=== PATIENT | female | born 1965 | race Caucasian/White ===

== ENCOUNTER 2017-10-31 18:29 | Emergency (ER) | payer MEDICARE, MEDICAID, SELFPAY ==
[2017-10-31 18:30] VITALS: BP 122/72; PULSE 82; RESP 16; TEMP 36.1; O2SAT 94; BMI 38.9
--- NOTE | 2017-10-31 18:58 | RAD_ITS ---
STUDY: X-RAY - LEFT HAND REASON FOR EXAM: Female, 52 years old. Pain, fall TECHNIQUE: 3 view(s) of the hand. COMPARISON: None. FINDINGS: Normal radiocarpal articulation. Normal distal radioulnar joint. Normal visualized carpal bones. Normal carpal articulations Normal carpometacarpal articulation of the thumb. Normal second through fifth carpometacarpal joints. Normal metacarpi. Normal metacarpophalangeal joint of the thumb. Normal interphalangeal joint of the thumb. Normal proximal and distal phalanges of the thumb. Normal metacarpophalangeal joints of the second through fifth fingers. Normal proximal and distal interphalangeal joints of the second through fifth fingers. Normal phalanges of the second through fifth fingers. The soft tissue structures are unremarkable. RAD/Hand Min 3 Views IMPRESSION: Normal x-ray examination of the hand. Electronically Signed: Kirit Valdes DO at 20:24 EDT Tel [phone], Service support ,
--- NOTE | 2017-10-31 18:58 | RAD_ITS ---
STUDY: X-RAY - LEFT SHOULDER REASON FOR EXAM: Female, 52 years old. Pain TECHNIQUE: 4 view(s) of the shoulder. COMPARISON: None. FINDINGS: Normal glenohumeral articulation. Normal acromioclavicular joint. Normal acromion. Normal humeral head and visualized proximal humerus. Lateral soft tissue calcification possibly related to calcific tendinopathy. Normal visualized pulmonary apex. RAD/Shoulder min 2 Views IMPRESSION: No acute bone injury of the shoulder. Possible calcific tendinopathy of the shoulder. Electronically Signed: Kirit Valdes DO at 20:28 EDT Tel [phone], Service support ,
--- NOTE | 2017-10-31 18:58 | RAD_ITS ---
STUDY: X-RAY - LEFT WRIST REASON FOR EXAM: Female, 52 years old. Pain, fall TECHNIQUE: 3 view(s) of the wrist were obtained. COMPARISON: None. FINDINGS: Normal visualized distal radius and ulna. Normal radiocarpal articulation. Normal distal radioulnar articulation. Normal carpal bones. Normal carpal articulations. Normal carpometacarpal articulation of the thumb. Normal second through fifth carpometacarpal articulations. Normal visualized metacarpal bones. The soft tissue structures are unremarkable. RAD/Wrist min 3 Views IMPRESSION: Normal x-ray examination of the wrist. Electronically Signed: Kirit Valdes DO at 20:21 EDT Tel [phone], Service support ,
[2017-10-31] MEDS: HYDROcodone Bitartrate/Apap 5/325 Tablet PO (19:12)
[2017-10-31 20:18] VITALS: BP 112/66; PULSE 71; RESP 14; O2SAT 95
--- NOTE | 2017-10-31 20:45 | ED.VISSUMM ---
- ER Visit Summary Date of Service: 10/31/17 Chief Complaint: Left upper extremity injury History of Present Illness: The patient is a 52 F who lost her balance and fell, landing on her left arm. Patient is already in physical therapy for left shoulder pain and calcific tendinitis. Patient has pain to the left hand, wrist, and left shoulder. She denies paresthesias. She denies any other injury from the fall. Physical Examination: Vital signs unremarkable. Head neck examination was no sign of trauma. Heart is regular rate and rhythm. Lung sounds are clear. Abdomen is soft nontender. Left upper extremity examination was tenderness over the upper scapula. She is decreased range of motion of the left shoulder secondary to pain. No evidence of dislocation. She also has tenderness and edema of the left hand and wrist. Strong pulses are noted throughout. Test Results: Left hand and wrist x-rays are obtained and unremarkable. Left shoulder x-rays reveal no acute injury. There is possible calcific tendinopathy of the shoulder. Emergency Department Course and Treatment: Patient was given 2 tabs of [place] for pain. On repeat evaluation she is resting comfortably. Test results were discussed with her. Jenaro wrap will be applied to the left hand and wrist. She will follow-up with her land conservation specialist at [facility]. She will be given 10 tabs of [place] for home. Treatment Plan: [] Disposition: Discharge Impression: 1. Mechanical fall 2. Left hand/wrist contusion 3. Calcific tendinitis left shoulder This note was generated with SnapUp dictation software. It may contain incorrect words, spelling, and punctuation that were not noted in review of the chart prior to signing ED Disposition - Plan for ED Patient: Chief Complaint: Upper Extremity Injury Referrals: Santhosh Garcia MD [Primary Care Provider] -
--- NOTE | 2017-10-31 20:49 | ED.DEP ---
ED Disposition - Plan for ED Patient: Disposition: Home or Assisted Living Chief Complaint: Upper Extremity Injury Instructions: ED Tendinitis Rotator Cuff, ED Contusion Hand Prescriptions: Hydrocodone Bitart/Apap 5-325 [[place] 5MG-325MG] 1 tablet PO Q6H PRN PRN 3 Days #10 tablet PRN Reason: Pain Referrals: Santhosh Garcia MD [Primary Care Provider] - Additional Instructions: Follow-up with your orthopedist as discussed.
[2017-10-31 20:57] VITALS: PULSE 68; RESP 17; O2SAT 96
== END 2017-10-31 20:57 | disposition home or self-care (01) ==
PROVIDERS: Emergency Provider Emergency Medicine; Family Provider Family Medicine; PCP Family Medicine
DX: S60.212A Contusion of left wrist, initial encounter (principal); M75.32 Calcific tendinitis of left shoulder; W19.XXXA Unspecified fall, initial encounter; Y93.9 Activity, unspecified; Y92.9 Unspecified place or not applicable; K21.9 Gastro-esophageal reflux disease without esophagitis; E78.00 Pure hypercholesterolemia, unspecified; G47.33 Obstructive sleep apnea (adult) (pediatric); E11.40 Type 2 diabetes mellitus with diabetic neuropathy, unspecified; Z79.82 Long term (current) use of aspirin; Z79.899 Other long term (current) drug therapy; Z87.891 Personal history of nicotine dependence
CPT/HCPCS: 73030; 73110; 73130; 99283

== ENCOUNTER 2022-10-29 15:26 | Emergency (ER) | payer MEDICARE, MEDICAID, SELFPAY ==
[2022-10-29 15:27] VITALS: BP 158/98; PULSE 98; RESP 14; TEMP 36.6; O2SAT 95; BMI 40.3
--- NOTE | 2022-10-29 15:49 | RAD_ITS ---
INDICATION: Trauma, fall, right-sided pain EXAMINATION/TECHNIQUE: X-RAY - RIGHT XR Wrist Min 3 Views 3 VIEWS COMPARISON: None. FINDINGS: SOFT TISSUES: No soft tissue swelling or gas. No radiopaque foreign body. BONES/JOINTS: No acute fracture. Joint spaces anatomically aligned. No sclerotic or destructive changes observed. RAD/Wrist min 3 Views IMPRESSION: No acute bony injury. Electronically Signed: John Dobson MD at 17:14 EDT ,
--- NOTE | 2022-10-29 15:49 | RAD_ITS ---
INDICATION: Trauma, fall, right-sided pain EXAMINATION/TECHNIQUE: X-RAY - RIGHT XR Foot Min 3 Views 3 VIEWS COMPARISON: None. FINDINGS: SOFT TISSUES: No soft tissue swelling or gas. No radiopaque foreign body. BONES/JOINTS: Mildly displaced, comminuted intra-articular fracture at the base of the second proximal phalanx. Overall alignment near anatomic. Joint spaces anatomically aligned. No sclerotic or destructive changes observed. RAD/Foot min 3 Views IMPRESSION: Comminuted intra-articular fracture of the second proximal phalanx. Electronically Signed: John Dobson MD at 17:04 EDT ,
--- NOTE | 2022-10-29 15:49 | RAD_ITS ---
INDICATION: Trauma, fall, right-sided pain EXAMINATION/TECHNIQUE: X-RAY - RIGHT XR Elbow Min 3 Views 3 VIEWS COMPARISON: None. FINDINGS: SOFT TISSUES: No soft tissue swelling or gas. No radiopaque foreign body. BONES/JOINTS: No acute fracture. Joint spaces anatomically aligned. Degenerative changes at the lateral humeral epicondyle. No sclerotic or destructive changes observed. RAD/Elbow min 3 Views IMPRESSION: No acute bony injury. Electronically Signed: John Dobson MD at 17:06 EDT ,
--- NOTE | 2022-10-29 16:02 | RAD_ITS ---
INDICATION: Trauma, fall, right-sided pain EXAMINATION/TECHNIQUE: X-RAY - RIGHT XR Femur Min 2 Views 2 VIEWS COMPARISON: None. FINDINGS: SOFT TISSUES: No soft tissue swelling or gas. No radiopaque foreign body. BONES/JOINTS: No acute fracture. Joint spaces anatomically aligned. No sclerotic or destructive changes observed. RAD/Femur Min 2 Views IMPRESSION: No acute bony injury. Electronically Signed: John Dobson MD at 17:10 EDT ,
--- NOTE | 2022-10-29 16:59 | ED.VIS.FALL ---
HPI HPI - Fall History of Present Illness Chief Complaint: Fall Detail of Chief Complaint: 57-year-old diabetic female with a fractured second toe lost her balance an Informant: patient and family Occured/Mechanism Occurred: Today and Hours Mechanism/Context: Yes same level fall Usually ambulates: Without assistance Pain/Injury Pain Location: upper extremity and lower extremity Quality of Pain: Dull and Aching Current Severity: Mild Maximum Severity: Mild Narrative Narrative: 57-year-old diabetic female also with hypertension. Recently fractured her right second toe. Today around 2:30 AM she was going to to get her grandchild something to drink stumbled and fell. She also had a second fall around 1 PM. Complaining of discomfort to her right foot, right distal femur, right elbow and right wrist. She had no LOC. No significant head injury. She is not on any blood thinners. Prior similar symptoms: Yes Recent Illness/Hospitalization: No PFSH PFSH Medical History Powers's esophagus Diabetes DJD (degenerative joint disease) Dyslipidemia GERD (gastroesophageal reflux disease) Heart disease HTN (hypertension) Morbid obesity Home Medications bupropion HCl 200 mg tablet,12 hr sustained-release (Wellbutrin SR) 200 mg PO BID depression/anxiety 08/23/15 [History Last Taken 10/31/17] clonazepam 2 mg tablet (Klonopin) 1 mg PO TID anxiety 08/23/15 [History Last Taken 10/31/17] fluticasone propionate 50 mcg/actuation nasal spray,suspension 2 spray DAILY allergies 08/23/15 [History Last Taken 10/31/17] gabapentin 600 mg tablet 900 mg PO TIDCM nerve pain 08/23/15 [History Last Taken 10/31/17] lamotrigine 150 mg tablet 400 mg PO QHS bipolar 08/23/15 [History Last Taken 10/31/17] pantoprazole 40 mg tablet,delayed release 40 mg PO DAILY acid reflux 08/23/15 [History Last Taken 10/31/17] thyroid (pork) 60 mg tablet ([place] Thyroid) 60 mg PO BID thyroid 08/23/15 [History Last Taken 10/31/17] vortioxetine 10 mg tablet (Trintellix) 20 mg PO QHS antidepressant 08/23/15 [History Last Taken 10/31/17] atorvastatin 20 mg tablet (Lipitor) 40 mg PO QHS cholesterol 12/31/16 [History Last Taken 10/31/17] ergocalciferol (vitamin D2) 1,250 mcg (50,000 unit) capsule (Vitamin D2) 50,000 unit PO ALLEN SUPPLEMENT 12/31/16 [History Last Taken 10/31/17] aspirin 81 mg tablet,delayed release 81 mg PO DAILY@0800 01/01/17 [Rx Last Taken 10/31/17] nitroglycerin 0.4 mg sublingual tablet 0.4 mg sublingual Q5M PRN Chest Pain #30 tabs 01/01/17 [Rx Last Taken 10/31/17] propranolol 10 mg tablet 10 mg PO DAILY tremors ##30 01/01/17 [Rx Last Taken 10/31/17] desonide 0.05 % topical cream 10/31/17 [History Last Taken Unknown] hydrocodone-acetaminophen 5-325mg 5mg-325mg 1 tab PO Q6H PRN PRN Pain 3 days ##10 10/31/17 [Rx Last Taken Unknown] lisinopril 5 mg tablet 5 mg PO DAILY 10/31/17 [History Last Taken Unknown] lurasidone 20 mg tablet (Latuda) 20 mg PO DAILY 10/31/17 [History Last Taken Unknown] prednisone 10 mg tablet 10 mg PO DAILY 10/31/17 [History Last Taken Unknown] tizanidine 4 mg capsule (Zanaflex) 4 mg PO PRN PRN Muscle Spasm 10/31/17 [History Last Taken Unknown] zaleplon 10 mg capsule 10 mg PO PRN PRN Sleep 10/31/17 [History Last Taken Unknown] Allergy/AdvReac Type Severity Reaction Status Date / Time animal dander Allergy difficulty Verified 10/29/22 15:30 breathing citric acid AdvReac mouth sores Verified 10/29/22 15:30 mold AdvReac Nausea Verified 10/29/22 15:30 zolpidem [From Ambien] AdvReac SLEEP Verified 10/29/22 15:30 WALKING Social History Smoking Status: Never smoker ROS ROS ED ROS Narrative Recent illness. Review of Systems ROS Unobtainable: Denies due to encephalopathy Constitutional Constitutional ED: Denies chills or fever(s) Eyes Eyes: Denies blurry vision ENT ENT ED: Denies ear pain Cardiovascular Cardiovascular: Denies chest pain Respiratory/Chest Respiratory/Chest: Denies cough Gastrointestinal Gastrointestinal: Denies abdominal pain Genitourinary Genitourinary ED: Denies dysuria Musculoskeletal Musculoskeletal: Denies arthralgias Integumentary Denies abscess Neurologic Neurologic: Denies headache(s) Psychiatric Psychiatric: Denies anxiety Endocrine Endocrinology: Denies polydipsia or polyphagia Allergic/Immunologic Allergic/Immunologic ED: Denies mouth swelling EXAM Physical Exam Narrative Exam Narrative: All 57 female. Vital signs stable afebrile. No acute distress. Family at bedside. H EENT exam unremarkable atraumatic. Pupils round react light. Scalp and face nontender. C-spine trachea nontender. Lungs clear to auscultation bilaterally. Chest wall nontender. Collarbone is nontender. Heart regular rhythm rate about 90 no murmur. Ribs nontender. Abdomen soft nontender. Pelvic girdle intact. Moving all 4 extremities. Mild tenderness to the right elbow and right wrist. Minimal swelling. No gross bony deformity. Equal symmetrical germ drier strength. Shoulders are nontender. Left upper extremity unremarkable. Back and spine nontender. She has normal flexion extension of both hips, knees, ankle and feet. Right foot is in a walking shoe. She has tenderness along the base of the toe phalanges and distal metatarsals. No deformity. Notes no swelling. Has recently had a second toe fracture. Neurologically she is awake alert with no focal motor deficits. Const Vital Signs: 10/29/22 15:27 10/29/22 15:40 Temperature 97.8 F Temperature Source Temporal Pulse Rate 98 Respiratory Rate 14 Respiratory Effort Normal Non-Labored Respiratory Depth Normal Respiratory Pattern Normal Blood Pressure 158/98 H Blood Pressure Mean 118 Pulse Ox 95 Oxygen Delivery Method Room Air Room Air Positive well nourished and well developed; Negative for cachectic, contractures or unkempt General Appearance ED: well developed and NAD; Negative for unkempt, cachectic or contractures Nutritional Appearance: Negative for cachectic HEENT Reports normocephalic atraumatic; Negative for trauma, contusion, hematoma or tenderness Eyes PERRL and EOMs intact bilaterally General Eye ED: Negative for pale conjunctiva or scleral icterus Neck full ROM and no lymphadenopathy General: Negative for tenderness Chest Wall inspection of chest normal and palpation of chest normal Chest: Negative for other Resp normal respiratory effort, no retractions and clear to auscultation bilaterally Effort and Inspection: Negative for pain with movement Auscultation: Negative for rales, rhonchi or wheezes Cardio regular rate, regular rhythm, S1 normal heart sound, S2 normal heart sound and no murmurs GI non-tender, non-distended and no masses Inspection: Negative for abdominal distention Auscultation: normoactive bowel sounds Palpation: soft; Negative for guarding Back/Spine no CVA tenderness General Back: Negative for CVA tenderness Cervical Spine: Negative for cervical spine tenderness Thoracic Spine / Upper Back: Negative for ROM limited Lumbar Spine / Lower Back: Negative for lumbar spinal tenderness Neuro oriented x3, CN's II-XII intact bilaterally, moves all extremities and no focal motor deficits Mahesh Coma Scale: document GCS findings Spontaneous Obeys Commands Oriented 15 Sensorium / Orientation: alert, oriented to person, oriented to place and oriented to time; Negative for orientation impaired, confused, lethargic or stuporous Motor Exam: strength 5/5 throughout Psych mental status grossly normal and thought process normal Appearance: Negative for unkempt Attitude: No agitated Mood & Affect: Negative for depressed, anxious or tearful Skin General Skin Exam: Negative for other Lesions: no lesions Rashes: no rashes Trauma: Negative for abrasion or laceration MDM MDM MDM Narrative Medical decision making narrative: 57-year-old female with a known broken second toe fell twice today. X-rays will be obtained of her right elbow and right wrist. Right femur and right foot. X-rays reviewed. No acute abnormality. She does have a known right second toe fracture. The other films are unremarkable. She will be ambulated in department if she does well she will be discharged home. History & Record Review Discussion w/independent historian: Patient and Family Radiography Chest X-Ray - ED: Read by ED Physician Diagnostic Testing: Right elbow x-ray 3 views interpreted myself shows no acute abnormality. No fracture or dislocation. Right wrist x-ray 3 views interpreted by myself right itself shows no acute abnormality. No fracture or dislocation. Right foot x-ray 3 views interpreted by myself shows a old proximal phalanx second toe fracture. Denies headache not displaced. Right femur x-ray 4 views shows no acute abnormality. No fracture or dislocation. Interpreted by myself. Discharge Plan Triage Chief Complaint: Fall ED Provider: Corey Arrington Dx/Rx/DC Orders Clinical Impression: History of fracture of toe, History of hypertension, History of diabetes mellitus, Fall, Contusion of elbow, right, Contusion of right thigh, Right wrist sprain Instructions: ED Contusion, Lower Extremity, ED Contusion, Upper Extremity Prescriptions: No Action lamotrigine 150 MG tablet 400 mg PO QHS gabapentin 600 MG tablet 900 mg PO TIDCM pantoprazole 40 MG tablet 40 mg PO DAILY clonazepam [Klonopin] 2 MG tablet 1 mg PO TID fluticasone propionate 1 SPRAY spray,suspension 2 spray NASAL DAILY bupropion HCl [Wellbutrin SR] 200 MG tablet 200 mg PO BID thyroid (pork) [[place] Thyroid] 60 MG tablet 60 mg PO BID vortioxetine [Trintellix] 10 MG tablet 20 mg PO QHS atorvastatin [Lipitor] 20 MG tablet 40 mg PO QHS ergocalciferol (vitamin D2) [Vitamin D2] 50,000 UNIT capsule 50,000 unit PO ALLEN aspirin 81 MG tablet 81 mg PO DAILY@0800 0RF nitroglycerin 0.4 MG tablet 0.4 mg sublingual Q5M PRN (Reason: Chest Pain) Qty: 30 0RF propranolol 10 MG tablet 10 mg PO DAILY Qty: 30 0RF desonide 0.05 % cream Patient Comments: prednisone 10 MG tablet 10 mg PO DAILY Patient Comments: lisinopril 5 MG tablet 5 mg PO DAILY Patient Comments: zaleplon 10 MG capsule 10 mg PO PRN PRN (Reason: Sleep) Patient Comments: lurasidone [Latuda] 20 MG tablet 20 mg PO DAILY Patient Comments: tizanidine [Zanaflex] 4 MG capsule 4 mg PO PRN PRN (Reason: Muscle Spasm) hydrocodone-acetaminophen 1 TABLET tablet 1 tab PO Q6H PRN PRN (Reason: Pain) 3 Days Qty: 10 0RF Primary Care Provider: Santhosh Garcia Referrals: Santhosh Garcia MD [Primary Care Provider] - As Needed Activity Restrictions/Additional Instructions: Other than your old second toe fracture the x-rays today of your right elbow, right wrist, femur and foot otherwise were unremarkable. Ice all sore areas. Tylenol Motrin for pain. Follow-up with your doctor as needed. Disposition Disposition: Home, Self Care
== END 2022-10-29 17:20 | disposition home or self-care (01) ==
PROVIDERS: Emergency Provider Emergency Medicine; PCP Family Medicine; Visit Provider Emergency Medicine
DX: S50.01XA Contusion of right elbow, initial encounter (principal); S70.11XA Contusion of right thigh, initial encounter; S63.501A Unspecified sprain of right wrist, initial encounter; W18.30XA Fall on same level, unspecified, initial encounter
CPT/HCPCS: 73080; 73110; 73552; 73630; 99282

== ENCOUNTER 2024-08-29 09:18 | Emergency (ER) | payer MEDICARE, MEDICAID, SELFPAY ==
[2024-08-29 09:19] VITALS: BP 134/85; PULSE 70; RESP 16; TEMP 36.8; O2SAT 100
--- NOTE | 2024-08-29 09:44 | EDS_ITS ---
HPI HPI - Fall History of Present Illness Chief Complaint: Fall Narrative Narrative: Chief complaint and HPI: Close head injury after mechanical fall. 66-year-old female with past medical history of DM2, DJD, memory issues presents for evaluation of closed head injury after mechanical fall. History taken by daughter as well as patient. Patient states she had just gotten up and was making breakfast for her granddaughter when she lost her balance and fell. Daughter states that she heard the fall. States she was unconscious for several seconds. She hit the back of her head on the dining room table pillar. Denies blood thinners. States she is supposed to use her walker at baseline but was not using it. Denies any fever, chills, shortness of breath, chest pain abdominal pain, nausea, vomiting, dysuria. Denies any numbness or tingling. Denies any back pain or extremity pain. Not up-to-date on tetanus. Review of systems: See HPI Medications: As listed on the chart Allergies: As listed on the chart PFSH: Per chart Vital signs: As listed on the chart. Reviewed. Physical exam: Gen: A&O x3, NAD Head: Normocephalic, 2 cm laceration to the posterior scalp Eyes: No sclera icterus, conjunctiva clear, PERRL, EOMI ENT: TMs clear BL, moist mucous membranes, no swelling/lacerations/blood in the mouth or the nares, No nasal septal hematoma, mild facial tenderness over the left zygomatic arch-no obvious signs of trauma Neck: Trachea midline, No JVD, no midline spinal tenderness, mild tenderness to palpation of the right paraspinal musculature CV: RRR, no murmurs, no chest wall TTP Resp: Lungs CTA BL, no w/r/c GI: Abd soft, non-distended, non-tender, no r/r/g Musc: Full ROM, no deformity, no spinal TTP, no molly step-offs Skin: Warm, dry, intact Neuro: Alert, oriented, grossly intact, sensation intact, GCS 15 Psych: Cooperative, appropriate mood and affect [facility] Medical History Powers's esophagus Diabetes DJD (degenerative joint disease) Dyslipidemia GERD (gastroesophageal reflux disease) Heart disease HTN (hypertension) Morbid obesity Home Medications ?Medication ?Instructions ?Recorded ?Last Taken ?Type bupropion HCl 200 mg tablet,12 hr 200 mg PO BID depres brielle/anxiety 08/23/15 08/28/24 History sustained-release (Wellbutrin SR) gabapentin 600 mg tablet 600 mg PO TIDCM nerve pain 0 08/23/15 08/28/24 History pantoprazole 40 mg tablet,delayed 80 mg PO DAILY acid reflux 08/23/15 08/28/24 History release thyroid (pork) 60 mg tablet 60 mg PO BID thyroid 08/2208/28/24 History ([place] Thyroid) nitroglycerin 0.4 mg sublingual 0.4 mg sublingual Q5M PRN Chest 01/01/17 10/31/17 Rx tablet Pain #30 tabs lisinopril 5 mg tablet 5 mg PO DAILY 10/31/1708/28 History tizanidine 4 mg capsule (Zanaflex) 4 mg PO PRN PRN Mus heidi Spasm 10/31/17 Unknown History carbidopa 25 mg-levodopa 100 mg 1 tab PO TID 08/29/24 08/28/24 History tablet cetirizine 10 mg tablet 10 mg PO DAILY 08/29/2411/14 History clonazepam 1 mg tablet 1 mg PO TID PRN 08/29/2411/14 History fenofibrate 54 mg tablet 54 mg PO DAILY 08/29/2411/14 History ferrous sulfate 325 mg (65 mg 325 mg PO BID 08/29/24 0 08/28/24 History iron) tablet (FeroSul) gabapentin 300 mg capsule 300 mg PO TID 08/29/2408/28 History lamotrigine 200 mg disintegrating 400 mg PO QHS 08/28/24 History tablet metformin 500 mg tablet,extended 1,500 mg PO DAILY 12/1508/28/24 History release 24 hr metoprolol succinate 25 mg 25 mg PO DAILY 08/29/2411/14 History tablet,extended release 24 hr ondansetron HCl 4 mg tablet 4 mg PO DAILY PRN nausea a nd 08/29/24 Unknown History vomiting prochlorperazine maleate 10 mg 10 mg PO BID PRN PRN mi graine 08/29/24 Unknown History tablet rosuvastatin 5 mg tablet 5 mg PO QHS 08/29/24 5 History
--- NOTE | 2024-08-29 09:44 | ED.VIS.FALL ---
HPI HPI - Fall History of Present Illness Chief Complaint: Fall Narrative Narrative: Chief complaint and HPI: Close head injury after mechanical fall. 66-year-old female with past medical history of DM2, DJD, memory issues presents for evaluation of closed head injury after mechanical fall. History taken by daughter as well as patient. Patient states she had just gotten up and was making breakfast for her granddaughter when she lost her balance and fell. Daughter states that she heard the fall. States she was unconscious for several seconds. She hit the back of her head on the dining room table pillar. Denies blood thinners. States she is supposed to use her walker at baseline but was not using it. Denies any fever, chills, shortness of breath, chest pain abdominal pain, nausea, vomiting, dysuria. Denies any numbness or tingling. Denies any back pain or extremity pain. Not up-to-date on tetanus. Review of systems: See HPI Medications: As listed on the chart Allergies: As listed on the chart PFSH: Per chart Vital signs: As listed on the chart. Reviewed. Physical exam: Gen: A&O x3, NAD Head: Normocephalic, 2 cm laceration to the posterior scalp Eyes: No sclera icterus, conjunctiva clear, PERRL, EOMI ENT: TMs clear BL, moist mucous membranes, no swelling/lacerations/blood in the mouth or the nares, No nasal septal hematoma, mild facial tenderness over the left zygomatic arch-no obvious signs of trauma Neck: Trachea midline, No JVD, no midline spinal tenderness, mild tenderness to palpation of the right paraspinal musculature CV: RRR, no murmurs, no chest wall TTP Resp: Lungs CTA BL, no w/r/c GI: Abd soft, non-distended, non-tender, no r/r/g Musc: Full ROM, no deformity, no spinal TTP, no molly step-offs Skin: Warm, dry, intact Neuro: Alert, oriented, grossly intact, sensation intact, GCS 15 Psych: Cooperative, appropriate mood and affect [facility] Medical History Powers's esophagus Diabetes DJD (degenerative joint disease) Dyslipidemia GERD (gastroesophageal reflux disease) Heart disease HTN (hypertension) Morbid obesity Home Medications ?Medication ?Instructions ?Recorded ?Last Taken ?Type bupropion HCl 200 mg tablet,12 hr 200 mg PO BID depression/anxiety 08/23/15 08/28/24 History sustained-release (Wellbutrin SR) gabapentin 600 mg tablet 600 mg PO TIDCM nerve pain 08/23/15 08/28/24 History pantoprazole 40 mg tablet,delayed 80 mg PO DAILY acid reflux 08/23/15 08/28/24 History release thyroid (pork) 60 mg tablet 60 mg PO BID thyroid 08/23/15 08/28/24 History ([place] Thyroid) nitroglycerin 0.4 mg sublingual 0.4 mg sublingual Q5M PRN Chest 01/01/17 10/31/17 Rx tablet Pain #30 tabs lisinopril 5 mg tablet 5 mg PO DAILY 10/31/17 08/28/24 History tizanidine 4 mg capsule (Zanaflex) 4 mg PO PRN PRN Muscle Spasm 10/31/17 Unknown History carbidopa 25 mg-levodopa 100 mg 1 tab PO TID 08/29/24 08/28/24 History tablet cetirizine 10 mg tablet 10 mg PO DAILY 08/29/24 08/28/24 History clonazepam 1 mg tablet 1 mg PO TID PRN 08/29/24 08/28/24 History fenofibrate 54 mg tablet 54 mg PO DAILY 08/29/24 08/28/24 History ferrous sulfate 325 mg (65 mg 325 mg PO BID 08/29/24 08/28/24 History iron) tablet (FeroSul) gabapentin 300 mg capsule 300 mg PO TID 08/29/24 08/28/24 History lamotrigine 200 mg disintegrating 400 mg PO QHS 08/29/24 08/28/24 History tablet metformin 500 mg tablet,extended 1,500 mg PO DAILY 08/29/24 08/28/24 History release 24 hr metoprolol succinate 25 mg 25 mg PO DAILY 08/29/24 08/28/24 History tablet,extended release 24 hr ondansetron HCl 4 mg tablet 4 mg PO DAILY PRN nausea and 08/29/24 Unknown History vomiting prochlorperazine maleate 10 mg 10 mg PO BID PRN PRN migraine 08/29/24 Unknown History tablet rosuvastatin 5 mg tablet 5 mg PO QHS 08/29/24 08/28/24 History semaglutide 0.25 mg or 0.5 mg (2 0.5 mg subcut QWEEK 08/29/24 08/28/24 History mg/3 mL) subcutaneous pen injector (Ozempic) topiramate 50 mg tablet 50 mg PO BID 08/29/24 08/28/24 History vortioxetine 20 mg tablet 20 mg PO DAILY 08/29/24 08/28/24 History (Trintellix) Allergy/AdvReac Type Severity Reaction Status Date / Time animal dander Allergy difficulty Verified 08/29/24 09:19 breathing citric acid AdvReac mouth sores Verified 08/29/24 09:19 mold AdvReac Nausea Verified 08/29/24 09:19 zolpidem (From Ambien) AdvReac SLEEP Verified 08/29/24 09:19 WALKING Social History Smoking Status: Former smoker EXAM Physical Exam Const Vital Signs: 08/29/24 09:19 08/29/24 10:09 08/29/24 10:19 Temperature 98.3 F Temperature Source Oral Pulse Rate 70 69 Respiratory Rate 16 14 Respiratory Effort Normal Non-Labored Respiratory Depth Normal Respiratory Pattern Normal Blood Pressure 134/85 H Blood Pressure Mean 101 Pulse Ox 100 100 Oxygen Delivery Method Room Air Room Air Room Air 08/29/24 11:19 08/29/24 12:00 08/29/24 12:07 Temperature 98.3 F Temperature Source Pulse Rate 73 73 73 Respiratory Rate 16 16 16 Respiratory Effort Respiratory Depth Respiratory Pattern Blood Pressure 134/85 H Blood Pressure Mean 101 Pulse Ox 100 100 100 Oxygen Delivery Method Room Air Room Air MDM MDM MDM Narrative Medical decision making narrative: 66-year-old female with past medical history of DM2, DJD, memory issues presents for evaluation of closed head injury after mechanical fall. Patient lost her balance and fell. Hit her head on the dining room table pillar. Positive LOC. No anticoagulation. Supposed to ambulate with walker but was not using it. Currently denies any symptoms other than headache. Has small laceration to the posterior scalp. Not up-to-date on tetanus. Differential diagnosis includes but is not limited to scalp laceration, contusion, intracranial bleed, skull fracture, facial fracture, facial contusion, neck strain, cervical fracture. CT head, neck, or face ordered. Tylenol given for pain. Laceration will need repaired with sutures. Patient consented to having tetanus updated. Given this was purely mechanical fall I do not think any laboratory workup is needed at this time. Patient family in agreement. Patient tolerated laceration repair well. [address] of the brain, cervical spine, face showed no acute traumatic injury. Patient will be ambulated. Patient ambulated while in emergency department. Patient stable to discharge home. Given education on signs of concussion. Follow-up with PCP. They confirmed understand the plan. Laceration Repair Indication: Laceration Location: 2 cm scalp laceration Consent: Risks, benefits, and alternatives discussed with patient and consent obtained Procedure: The area was prepped and draped in the usual sterile fashion. Local anesthesia was achieved using 1% Lidocaine with epinephrine. The wound was copiously irrigated and cleaned. 7 jonathan were placed. The estimated blood loss was minimal. The patient tolerated the procedure well without complications. Foreign Material: None Debridement: None Impression: 1. Closed head injury 2. Scalp laceration, repaired with jonathan 3. Mechanical fall Radiography Diagnostic Testing: Clinical Impression(s) from Imaging Studies Brain CT 08/29/24 09:45 IMPRESSION: No acute process. Age-related involution and chronic small-vessel ischemic changes . Reading [facility] Cervical Spine CT 08/29/24 09:45 IMPRESSION: DEGENERATIVE CHANGES OF THE CERVICAL SPINE. NO EVIDENCE OF SIGNIFICANT OSSEOUS CENTRAL CANAL OR NEURAL FORAMINAL STENOSIS. Reading Location: [facility] Facial/Sinus 08/29/24 09:45 IMPRESSION: No acute abnormality is seen. Reading Location: [facility] Discharge Plan Triage Chief Complaint: Fall ED Provider: Sachin Walton Dx/Rx/DC Orders Clinical Impression: Closed head injury, Accident due to mechanical fall without injury Instructions: ED Head Injury (Adult), ED Laceration Scalp Stitches or Devon, ED Fall Prevention Prescriptions: No Action gabapentin 600 MG tablet 600 mg PO TIDCM Rx Instructions: with 300mg for total daily dose of 900mg pantoprazole 40 MG tablet 80 mg PO DAILY bupropion HCl [Wellbutrin SR] 200 MG tablet 200 mg PO BID thyroid (pork) [[place] Thyroid] 60 MG tablet 60 mg PO BID nitroglycerin 0.4 MG tablet 0.4 mg sublingual Q5M PRN (Reason: Chest Pain) Qty: 30 0RF lisinopril 5 MG tablet 5 mg PO DAILY Patient Comments: tizanidine [Zanaflex] 4 MG capsule 4 mg PO PRN PRN (Reason: Muscle Spasm) cetirizine 10 mg tablet 10 mg PO DAILY clonazepam 1 mg tablet 1 mg PO TID PRN carbidopa-levodopa 25-100 mg tablet 1 tab PO TID ferrous sulfate [FeroSul] 325 mg (65 mg iron) tablet 325 mg PO BID gabapentin 300 mg capsule 300 mg PO TID Rx Instructions: with 600mg for total daily dose of 900mg metoprolol succinate 25 mg tablet extended release 24 hr 25 mg PO DAILY metformin 500 mg tablet extended release 24 hr 1,500 mg PO DAILY rosuvastatin 5 mg tablet 5 mg PO QHS topiramate 50 mg tablet 50 mg PO BID fenofibrate 54 mg tablet 54 mg PO DAILY lamotrigine 200 mg tablet,disintegrating 400 mg PO QHS Trintellix 20 mg tablet 20 mg PO DAILY Ozempic 0.25 mg or 0.5 mg (2 mg/3 mL) pen injector 0.5 mg subcut QWEEK ondansetron HCl 4 mg tablet 4 mg PO DAILY PRN (Reason: nausea and vomiting) prochlorperazine maleate 10 mg tablet 10 mg PO BID PRN PRN (Reason: migraine) Primary Care Provider: Santhosh Garcia Referrals: Santhosh Garcia MD [Primary Care Provider] - 3-5 Days Activity Restrictions/Additional Instructions: You received Tylenol here in the emergency department. No Tylenol for 6 hours. Follow-up with primary care physician. Recommend using your walker. Monitor for signs of concussion which we talked about. Return back to the ED if symptoms change or worsen. Devon need to come out in 7 to 10 days Print Language: Guatemalan Disposition Disposition: Home, Self Care
--- NOTE | 2024-08-29 09:45 | CT_ITS ---
PROCEDURE: SINUS/FACIAL BONE REASON FOR EXAM: TRAUMA TECHNIQUE: CT of the paranasal sinuses without contrast. Coronal and Sagittal reconstruction series were provided. One or more dose reduction techniques were used (e.g., Automated exposure control, adjustment of the mA and/or kV according to patient size, use of iterative reconstruction technique). Dose report: CTDI L volume 29.38 mGy. DLP: 606.22 COMPARISON: None FINDINGS: Frontal: Unremarkable Ethmoid: Unremarkable Sphenoid: Unremarkable Maxillary: Unremarkable Turbinates: Hypertrophy of the inferior turbinates bilaterally. Nasal Septum: Midline. Mastoids/Middle Ears: Unremarkable. CT/Sinus/Facial Bone IMPRESSION: No acute abnormality is seen. Reading Location: [place] [id number]
--- NOTE | 2024-08-29 09:45 | CT_ITS ---
PROCEDURE: BRAIN/HEAD WITHOUT CONTRAST 08/29/2024 REASON FOR EXAM: TRAUMA TECHNIQUE: Head CT without intravenous contrast. Coronal and Sagittal reconstruction series were provided. One or more dose reduction techniques were used (e.g., Automated exposure control, adjustment of the mA and/or kV according to patient size, use of iterative reconstruction technique. RADIATION DOSE SUMMARY: CTDlvol: 44.99, 24.84 and 29.38 mGy DLP: 1935.73 mGycm COMPARISON: CT sinus study same day FINDINGS: Brain: No intra-axial or extra-axial hemorrhage no mass, mass effect or midline shift periventricular and deep white matter hypodensities indicating small-vessel ischemic disease CSF Spaces: PE Sinuses/Mastoids: Predominantly clear. Bones: No fracture. No acute process. CT/Brain/Head without Contrast IMPRESSION: No acute process. Age-related involution and chronic small-vessel ischemic changes . Reading [facility]
--- NOTE | 2024-08-29 09:45 | CT_ITS ---
PROCEDURE: SPINE CERVICAL WITHOUT CONTRAS 08/29/2024 REASON FOR EXAM: TRAUMA TECHNIQUE: Cervical spine CT without contrast. Coronal and Sagittal reconstruction series were provided. One or more dose reduction techniques were used (e.g., Automated exposure control, adjustment of the mA and/or kV according to patient size, use of iterative reconstruction technique RADIATION DOSE SUMMARY: CTDlvol: 24.84 mGy DLP: 516.53 mGycm COMPARISON: None FINDINGS: Alignment: Straightening of the normal cervical lordosis. Vertebrae: Anterior spondylosis at the C4-C5 level. Soft Tissues: No prevertebral soft tissue swelling. Other: Scarring at the right lung apex. C1-2: Unremarkable. C2-3: Disc space is well-maintained. Facet joint osteoarthritis more pronounced on the right side. No significant stenosis seen. C3-4: Disc space is well-maintained. Facet joint osteoarthritis and hypertrophy on the right side. No significant stenosis seen. C4-5: Mild degree of disc space narrowing. Anterior spondylosis. No evidence of spinal or neural foraminal stenosis. C5-6: Mild degree of disc space narrowing. No evidence of spinal stenosis. No evidence of neural foraminal stenosis. C6-7: Disc space is well-maintained. No acute abnormality is seen. C7-T1: Unremarkable. CT/Spine Cervical without Contras IMPRESSION: DEGENERATIVE CHANGES OF THE CERVICAL SPINE. NO EVIDENCE OF SIGNIFICANT OSSEOUS CENTRAL CANAL OR NEURAL FORAMINAL STENOSIS. Reading Location: [place] [id number]
[2024-08-29 10:00] VITALS: BMI 25.2
[2024-08-29] MEDS: Acetaminophen 500 MG Tablet 1000 MG PO (10:01)
[2024-08-29] MEDS: Diphth,Pertuss(Acell),Tet Vac 0.5 ML Vial IM (10:02)
[2024-08-29] MEDS: Lidocaine 1% /Epi 1:100 (20ml) 20 ML Vial INFILT (10:04)
[2024-08-29 10:19] VITALS: PULSE 69; RESP 14; O2SAT 100
[2024-08-29 11:19] VITALS: PULSE 73; RESP 16; O2SAT 100
[2024-08-29 12:00] VITALS: PULSE 73; RESP 16; O2SAT 100
[2024-08-29 12:06] VITALS: O2SAT 100
[2024-08-29 12:07] VITALS: BP 134/85; PULSE 73; RESP 16; TEMP 36.8; O2SAT 100
== END 2024-08-29 12:34 | disposition home or self-care (01) ==
PROVIDERS: Emergency Provider Surgery; PCP Family Medicine; Visit Provider Surgery
DX: S01.01XA Laceration without foreign body of scalp, initial encounter (principal); E11.9 Type 2 diabetes mellitus without complications; S09.90XA Unspecified injury of head, initial encounter; W19.XXXA Unspecified fall, initial encounter; Z87.891 Personal history of nicotine dependence; I10 Essential (primary) hypertension; Y92.89 Other specified places as the place of occurrence of the external cause; E78.5 Hyperlipidemia, unspecified; K21.9 Gastro-esophageal reflux disease without esophagitis; Z79.899 Other long term (current) drug therapy; Z79.84 Long term (current) use of oral hypoglycemic drugs; Z79.85 Long-term (current) use of injectable non-insulin antidiabetic drugs
CPT/HCPCS: 12001; 70450; 70486; 72125; 90715; 99283

== ENCOUNTER 2024-09-09 15:53 | Inpatient (IN) | payer MEDICARE, MEDICAID, SELFPAY ==
[2024-09-09] VITALS (11 sets, daily range): BP systolic 98–140; BP diastolic 63–98; PULSE 64–75; RESP 13–16; TEMP 36.1–36.8; O2SAT 93–100; BMI 25.1; BMI 24.1
--- NOTE | 2024-09-09 16:26 | EDS_ITS ---
HPI <OSKAR Serna - Last Filed: 09/09/24 19:24> History of Present Illness Chief Complaint: Alt LOC Narrative Narrative: 59-year-old female was sent in by her primary care doctor for altered mental status. She has had 2 recent falls with head injuries on 08/29 and 09/02. She was seen at [place] ED for the first fall and had a negative CT scan of the brain and had jonathan placed. She was seen at [place] for the second fall and her again had negative CT scans. Her family noted significant change in mental status after the first fall with increased fatigue trouble focusing. She wants to sleep all the time. Family has to repeat things and get her to pay attention. She has had decreased oral intake. She vomited once last night but [id number] states this happens when she eats once in a while. She is on Ozempic. Her [id number]-mpq states she falls frequently but it seems worse over the last months and she has fallen other times besides her ED visits but did not hit her head so she was not evaluated. She is post to use a walker. To day she was very weak and family members had to help lift her into a wheelchair to take her to the primary care office. Prrkqmla-[id number]-kku states she has some memory issues and usually would not know the year but she seems more confused than usual. 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 COUNT INCLUDES THE [facility] <OSKAR Serna - Last Filed: 09/09/24 19:24> COUNT INCLUDES THE [facility] Medical History Powers's esophagus Diabetes DJD (degenerative joint disease) Dyslipidemia GERD (gastroesophageal reflux disease) Heart disease HTN (hypertension) Morbid obesity Home Medications ?Medication ?Instructions ?Recorded ?Last Taken ?Type bupropion HCl 200 mg tablet,12 hr 200 mg PO BID depres brielle/anxiety 08/23/15 08/28/24 History sustained-release (Wellbutrin SR) gabapentin 600 mg tablet 600 mg PO TIDCM nerve pain 0 08/23/15 08/28/24 History pantoprazole 40 mg tablet,delayed 80 mg PO DAILY acid reflux 08/23/15 08/28/24 History release thyroid (pork) 60 mg tablet 60 mg PO BID thyroid 08/2208/28/24 History (Julian Thyroid) nitroglycerin 0.4 mg sublingual 0.4 mg sublingual Q5M PRN Chest 01/01/17 10/31/17 Rx tablet Pain #30 tabs lisinopril 5 mg tablet 5 mg PO DAILY 10/31/1708/28 History tizanidine 4 mg capsule (Zanaflex) 4 mg PO PRN PRN Mus heidi Spasm 10/31/17 Unknown History carbidopa 25 mg-levodopa 100 mg 1 tab PO TID 08/29/24 08/28/24 History tablet cetirizine 10 mg tablet 10 mg PO DAILY 08/29/2411/14 History clonazepam 1 mg tablet 1 mg PO BID PRN anxiety 12/1508/28/24 History fenofibrate 54 mg tablet 54 mg PO DAILY 08/29/2411/14 History ferrous sulfate 325 mg (65 mg 325 mg PO BID 08/29/24 0 08/28/24 History iron) tablet (FeroSul) gabapentin 300 mg capsule 300 mg PO TID 08/29/2408/28 History lamotrigine 200 mg disintegrating 400 mg PO QHS 08/28/24 History tablet metformin 500 mg tablet,extended 1,500 mg PO DAILY 12/1508/28/24 History release 24 hr metoprolol succinate 25 mg 25 mg PO DAILY 08/29/2411/14 History tablet,extended release 24 hr ondansetron HCl 4 mg tablet 4 mg PO DAILY PRN nausea a nd 08/29/24 Unknown History vomiting prochlorperazine maleate 10 mg 10 mg PO BID PRN PRN mi graine 08/29/24 Unknown History tablet rosuvastatin 5 mg tablet 5 mg PO QHS 08/29/24 5 History semaglutide 0.25 mg or 0.5 mg (2 0.5 mg subcut QWEEK 0 08/29/24 08/28/24 History mg/3 mL) subcutaneous pen injector (Ozempic) topiramate 50 mg tablet 50 mg PO BID 08/29/24 History vortioxetine 20 mg tablet 20 mg PO DAILY 08/29/2411/14 History (Trintellix) Allergy/AdvReac Type Severity Reaction Status Date / Time animal dander Allergy difficulty Verified 09/09/24 15:58 breathing citric acid AdvReac mouth sores Verified 09/09/24 15:58 mold AdvReac Nausea Verified 09/09/24 15:58 zolpidem (From Ambien) AdvReac SLEEP Verified 09/09/24 15:58 WALKING Social History Smoking Status: Former smoker ROS <OSKAR Serna - Last Filed: 09/09/24 19:24> ROS ED ROS Narrative Constitutional: Negative for fever, chills. CVS: Negative for chest pain. Respiratory: Negative for cough. GI: Negative for abdominal pain. EXAM <OSKAR Serna - Last Filed: 09/09/24 19:24> Physical Exam Narrative Exam Narrative: CONST: Patient sitting in no acute distress. EYES: Normal inspection. PERRL, EOMI. NECK: Normal inspection. RESP: No respiratory distress, CTAB. CVS: Regular rate and rhythm, no murmur, no gallop. ABD: Soft and nontender, no guarding or rebound, nondistended. SKIN: Color normal, no rash, warm, dry, intact. EXTREMITIES: Normal appearance, no pedal edema. NEURO: Slow to respond, alert to self and place. States she is 4 years old. Does not know the year. Follows basic commands. Moving all extremities. 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 Resting tremor of her head and upper extremities. PSYCH: Normal affect. Const Vital Signs: 09/09/24 15:54 09/09/24 16:53 09/09/24 17:00 Temperature 97 F L Temperature Source Temporal Pulse Rate 75 70 72 Respiratory Rate 16 16 15 Blood Pressure 98/66 124/74 H 130/71 H Blood Pressure Mean 76 90 90 Pulse Ox 95 100 97 Oxygen Delivery Method Room Air Room Air 09/09/24 18:00 09/09/24 19:00 09/09/24 19:20 Temperature 98 F Temperature Source Pulse Rate 64 66 66 Respiratory Rate 13 14 14 Blood Pressure 133/63 H 134/71 H 134/71 H Blood Pressure Mean 86 92 92 Pulse Ox 94 99 97 Oxygen Delivery Method Room Air Room Air 09/09/24 19:21 Temperature 98.1 F Temperature Source Axillary Pulse Rate 67 Respiratory Rate 14 Blood Pressure 134/71 H Blood Pressure Mean 92 Pulse Ox 97 Oxygen Delivery Method Room Air <Dr. Jose Billy DO - Last Filed: 09/09/24 19:25> Physical Exam Const Vital Signs: 09/09/24 15:54 09/09/24 16:53 09/09/24 17:00 Temperature 97 F L Temperature Source Temporal Pulse Rate 75 70 72 Respiratory Rate 16 16 15 Blood Pressure 98/66 124/74 H 130/71 H Blood Pressure Mean 76 90 90 Pulse Ox 95 100 97 Oxygen Delivery Method Room Air Room Air 09/09/24 18:00 09/09/24 19:00 09/09/24 19:20 Temperature 98 F Temperature Source Pulse Rate 64 66 66 Respiratory Rate 13 14 14 Blood Pressure 133/63 H 134/71 H 134/71 H Blood Pressure Mean 86 92 92 Pulse Ox 94 99 97 Oxygen Delivery Method Room Air Room Air 09/09/24 19:21 Temperature 98.1 F Temperature Source Axillary Pulse Rate 67 Respiratory Rate 14 Blood Pressure 134/71 H Blood Pressure Mean 92 Pulse Ox 97 Oxygen Delivery Method Room Air MDM <OSKAR Serna - Last Filed: 09/09/24 19:24> [facility] MDM Narrative Medical decision making narrative: Patient has had multiple recent falls but over the last few days is more weak and confused. She is accompanied by her family and was sent in by her primary care physician. She appears weak but nontoxic. Initially she had a soft blood pressure of 98/66 with otherwise normal vital signs. After IV fluids that improved to 134/71. She has slightly dry mucous membranes. Normal cardiopulmonary exam. Abdomen soft and nontender. She is alert and oriented to self and place but really does not answer other questions. She has no focal neurological deficits labs show normal white count of 8.2 and stable hemoglobin of 11.5. Normal electrolytes. She has an MORE with BUN of 21, creatinine 1.34 (previously 12/0.92. UA is consistent with UTI. Urine culture sent and she was given Rocephin. She denies hitting her head since the falls on 08/29 and 09/02, but since family is reporting she is falling frequently I obtained another CT brain which is negative. Patient is too weak to ambulate and requires admission. I discussed the case with the hospitalist. History & Record Review Additional record(s) reviewed:: Prior ED visit and Prior labs Lab Data Attestation: I reviewed the patient's lab results. Labs: Laboratory Results - last 24 hr 09/09/24 09/09/24 16:30 16:53 WBC 8.2 RBC 3.90 L Hgb 11.5 L Hct 33.9 L MCV 86.9 MCH 29.5 MCHC 33.9 RDW Std Deviation 39.9 RDW Coeff of Yuliana 12.7 Plt Count 235 MPV 10.4 Immature Gran % (Auto) 0.400 Neut % (Auto) 74.3 H Lymph % (Auto) 21.0 Wright % (Auto) 4.1 Eos % (Auto) 0.0 Baso % (Auto) 0.2 Absolute Neuts (auto) 6.1 Absolute Lymphs (auto) 1.72 Nucleated RBC % 0 Sodium 138 Potassium 4.0 Chloride 104 Carbon Dioxide 20.6 L Anion Gap 14 BUN 21 H Creatinine 1.34 H Est GFR (MDRD) Non-Af 45 L BUN/Creatinine Ratio 15.5 Glucose 127 H Lactic Acid 1.2 Calcium 9.4 Urine Color Straw Urine Clarity Cloudy Urine pH 5.0 Ur Specific [place] 1.020 Urine Protein 30 H Urine Glucose (UA) Normal Urine Ketones Negative Urine Occult Blood Negative Urine Nitrite Negative Urine Bilirubin Negative Urine Urobilinogen Normal Ur Leukocyte Esterase 100 H Urine RBC 0-5 SEEN Urine WBC 10-25 SEEN Ur Squamous Epith Cells 5-10 SEEN Urine Bacteria 4+ Urine Mucus 0 SEEN Radiography Diagnostic Testing: Clinical Impression(s) from Imaging Studies Brain CT 09/09/24 16:44 IMPRESSION: 1. Small vessel ischemic/degenerative changes. 2. Generalized brain atrophy. 3. No acute intracranial hemorrhage, midline shift or mass effect. If symptoms persist, further evaluation with MRI is recommended. Reading Location: [facility] Chest X-Ray 09/09/24 17:06 IMPRESSION: Pulmonary venous congestion. Reading Location: [facility] <Dr. Jose Billy, DO - Last Filed: 09/09/24 19:25> [facility] Lab Data Labs: Laboratory Results - last 24 hr 09/09/24 09/09/24 16:30 16:53 WBC 8.2 RBC 3.90 L Hgb 11.5 L Hct 33.9 L MCV 86.9 MCH 29.5 MCHC 33.9 RDW Std Deviation 39.9 RDW Coeff of Yuliana 12.7 Plt Count 235 MPV 10.4 Immature Gran % (Auto) 0.400 Neut % (Auto) 74.3 H Lymph % (Auto) 21.0 Wright % (Auto) 4.1 Eos % (Auto) 0.0 Baso % (Auto) 0.2 Absolute Neuts (auto) 6.1 Absolute Lymphs (auto) 1.72 Nucleated RBC % 0 Sodium 138 Potassium 4.0 Chloride 104 Carbon Dioxide 20.6 L Anion Gap 14 BUN 21 H Creatinine 1.34 H Est GFR (MDRD) Non-Af 45 L BUN/Creatinine Ratio 15.5 Glucose 127 H Lactic Acid 1.2 Calcium 9.4 Urine Color Straw Urine Clarity Cloudy Urine pH 5.0 Ur Specific [place] 1.020 Urine Protein 30 H Urine Glucose (UA) Normal Urine Ketones Negative Urine Occult Blood Negative Urine Nitrite Negative Urine Bilirubin Negative Urine Urobilinogen Normal Ur Leukocyte Esterase 100 H Urine RBC 0-5 SEEN Urine WBC 10-25 SEEN Ur Squamous Epith Cells 5-10 SEEN Urine Bacteria 4+ Urine Mucus 0 SEEN Radiography Diagnostic Testing: Clinical Impression(s) from Imaging Studies Brain CT 09/09/24 16:44 IMPRESSION: 1. Small vessel ischemic/degenerative changes. 2. Generalized brain atrophy. 3. No acute intracranial hemorrhage, midline shift or mass effect. If symptoms persist, further evaluation with MRI is recommended. Reading Location: [facility] Chest X-Ray 09/09/24 17:06 IMPRESSION: Pulmonary venous congestion. Reading Location: [facility] Treatment and Re-Evaluation :: I have personally performed a face to face assessment of the patient and have reviewed the YONY Note. I performed a substantive portion of the visit including all aspects of the following. My rojo findings include: History: Patient presents with frequent falls and confusion that has been getting worse over the past 11 days. Daughter states patient is getting more confused. Daughter states patient has fallen multiple times over the last 3 days. Daughter denies any fevers or chills. Daughter denies any dysuria, h ematuria, or urinary incontinence. Daughter states patient has had some nausea and vomiting. Exam: Vital signs are stable. Patient is afebrile. Patient is in no acute dist ress. Heart was regular rate and rhythm. Lungs are clear and equal bilaterally. Abdomen is soft. Bowel sounds are normal. There is mild suprapubic tenderness. There is no rebound or guarding noted. Cranial nerves II through XII are grossly intact. Patient is able to move her upper and lower extremities. Medical Decision Making: Differential diagnosis includes stroke, intracranial bleeding, normal pressure hydrocephalus, electrolyte abnormality, urinary tract infection, sepsis, and dehydration. CT scan of the brain will be obtained to assess for stroke and intracranial bleeding. Chest will be obtained to assess for pneumonia and bronchitis. Urinalysis will be obtained to assess for urinary tract infection and hematuria. CBC will be obtained to assess for leukocytosis and anemia. Basic metabolic profile will be obtained to assess for electrolyte abnormality and renal function. Serum lactate will be obtained to assess for sepsis. Urine culture will be obtained to assess for urinary tract infection. Patient was given IV fluids. CBC was reviewed. There is a mild anemia with a hemoglobin of 11.5 and hematocrit 33.9. Basic metabolic profile was reviewed. BUN was 21 and creatinine was 1.34. These were increased from previous results from 2017. Serum lactate was reviewed and was normal at 1.2. Urinalysis was reviewed. Leukocyte esterase was 100 with 10-25 white blood cells and 4+ bacteria. Patient and daughter were advised of findings. Patient was given a dose of Rocephin. Case was discussed with the hospitalist for admission. Pat ient and family understand and are agreeable with plan. All questions were answered. Discharge Plan Triage Chief Complaint: Alt LOC ED Midlevel Provider: Flavia Raines ED Provider: Jose Billy Dx/Rx/DC Orders Prescriptions: No Action gabapentin 600 MG tablet 600 mg PO TIDCM Rx Instructions: with 300mg for total daily dose of 900mg pantoprazole 40 MG tablet 80 mg PO DAILY bupropion HCl [Wellbutrin SR] 200 MG tablet 200 mg PO BID thyroid (pork) [Julian Thyroid] 60 MG tablet 60 mg PO BID nitroglycerin 0.4 MG tablet 0.4 mg sublingual Q5M PRN (Reason: Chest Pain) Qty: 30 0RF lisinopril 5 MG tablet 5 mg PO DAILY Patient Comments: tizanidine [Zanaflex] 4 MG capsule 4 mg PO PRN PRN (Reason: Muscle Spasm) cetirizine 10 mg tablet 10 mg PO DAILY clonazepam 1 mg tablet 1 mg PO BID PRN (Reason: anxiety) carbidopa-levodopa 25-100 mg tablet 1 tab PO TID ferrous sulfate [FeroSul] 325 mg (65 mg iron) tablet 325 mg PO BID gabapentin 300 mg capsule 300 mg PO TID Rx Instructions: with 600mg for total daily dose of 900mg metoprolol succinate 25 mg tablet extended release 24 hr 25 mg PO DAILY metformin 500 mg tablet extended release 24 hr 1,500 mg PO DAILY rosuvastatin 5 mg tablet 5 mg PO QHS topiramate 50 mg tablet 50 mg PO BID fenofibrate 54 mg tablet 54 mg PO DAILY lamotrigine 200 mg tablet,disintegrating 400 mg PO QHS Trintellix 20 mg tablet 20 mg PO DAILY Ozempic 0.25 mg or 0.5 mg (2 mg/3 mL) pen injector 0.5 mg subcut QWEEK ondansetron HCl 4 mg tablet 4 mg PO DAILY PRN (Reason: nausea and vomiting) prochlorperazine maleate 10 mg tablet 10 mg PO BID PRN PRN (Reason: migraine) Primary Care Provider: Santhosh Garcia Referrals: Santhosh Garcia MD [Primary Care Provider] - Print Language: Azeri
[2024-09-09] MEDS: 0.9% Normal Saline (1000mL) 1,000 ML 999 ML IV (16:38)
--- NOTE | 2024-09-09 16:44 | CT_ITS ---
EXAM: CT Head Without Intravenous Contrast CLINICAL INDICATION: CONFUSION TECHNIQUE: Axial computed tomography images of the head/brain without intravenous contrast. This CT exam was performed using one or more of the following dose reduction techniques: automated exposure control, adjustment of the mA and/or kV according to patient size, and/or use of iterative reconstruction technique. COMPARISON: CT Head dated 08/29/2024 FINDINGS: BRAIN AND EXTRA-AXIAL SPACES: Areas of decreased attenuation in the deep cerebral white matter are consistent with small vessel ischemic/degenerative changes. The cerebral and cerebellar sulci are prominent consistent with brain atrophy. No acute intracranial hemorrhage, midline shift or mass effect. If symptoms persist, further evaluation with MRI is recommended. BONES/JOINTS: Unremarkable. No acute fracture. SOFT TISSUES: Unremarkable. SINUSES: Unremarkable as visualized. No acute sinusitis. MASTOID AIR CELLS: Unremarkable as visualized. No mastoid effusion. CT/Brain/Head without Contrast IMPRESSION: 1. Small vessel ischemic/degenerative changes. 2. Generalized brain atrophy. 3. No acute intracranial hemorrhage, midline shift or mass effect. If symptoms persist, further evaluation with MRI is recommended. Reading Location: [id number]
[2024-09-09 16:47] LABS: Absolute Lymphocyte Count 1.72 X10^3/uL (0.83-4.51); Absolute Neutrophil Count 6.1 X10^3/uL (2.0-7.7); Basophil# 0.02 X10^3/uL; Basophil% 0.2 % (0-1); Hematocrit 33.9 % (37-47); Hemoglobin 11.5 g/dL (12.0-15.0); Lymphocyte # 1.72 X10^3/ul (0.83-4.51); Mean Corp Hgb Conc 33.9 g/dL (32-36); Mean Corpuscular Hgb 29.5 pg (27.0-32.0); Mean Corpuscular Volume 86.9 fL (81-99); Mean Platelet Vol. 10.4 fl (6.2-12.0); Monocyte# 0.34 X10^3/uL; Monocyte% 4.1 % (0-10); NRBC Flagged by Analyzer 0 % (0-5); Neutrophil % 74.3 % (47-70); Platelet Count 235 K/mm3 (150-450); RBC Distribution Width CV 12.7 % (11.6-14.6); RBC Distribution Width SD 39.9 fl (35.1-43.9); White Blood Count 8.2 K/mm3 (4.4-11.0)
[2024-09-09 16:58] LABS: Mucous, Urine 0 SEEN /hpf (<or=2+)
--- NOTE | 2024-09-09 17:06 | RAD_ITS ---
EXAM: XR Chest, 2 Views CLINICAL INDICATION: WEAKNESS TECHNIQUE: Frontal and lateral views of the chest. COMPARISON: No relevant prior studies available. FINDINGS: LUNGS AND PLEURAL SPACES: Pulmonary venous congestion. No consolidation. No pneumothorax. HEART: Unremarkable. No cardiomegaly. MEDIASTINUM: Unremarkable. Normal mediastinal contour. BONES/JOINTS: Unremarkable. No acute fracture. RAD/Chest PA and Lateral IMPRESSION: Pulmonary venous congestion. Reading Location: [id number]
[2024-09-09 17:15] LABS: Lactic Acid 1.2 mmol/L (0.0-2.0)
[2024-09-09 17:16] LABS: Anion Gap 14 (5-15); BUN 21 mg/dL (4-19); BUN/Creat Ratio 15.5 RATIO (10-20); Calcium,Total 9.4 mg/dL (7.6-11.0); Carbon Dioxide 20.6 mmol/L (21.0-32.0); Chloride 104 mmol/L (98-108); Creatinine, Serum 1.34 mg/dL (0.70-1.20); EST Glomerular Filtration Rate 45 (>60); Glucose 127 mg/dL (70-99); Sodium Level 138 mmol/L (133-145)
[2024-09-09 17:26] LABS: Color, Urine Straw (Yellow); Glucose, Dipstick Normal (Normal); Ketone-Dipstick Negative (Negative); Leukocyte Esterase-Dipstick 100 /ul (Negative); Nitrite-Dipstick Negative (Negative); Occult Blood-Urine Negative /ul (Negative); Protein-Dipstick 30 mg/dl (Negative); Urine Bilirubin Dipstick Negative (Negative); Urine Clarity Cloudy (Clear); Urine Urobilinogen Normal (Normal)
[2024-09-09 18:08] LABS: Bacteria 4+ /hpf (None Seen); Red Blood Cells-Urine 0-5 SEEN /hpf (0-5); Squamous Epithelial Cells - UA 5-10 SEEN /hpf (5-10); White Blood Cells 10-25 SEEN /hpf (0-5)
[2024-09-09] MEDS: Ceftriaxone 1 GM/50 ML BAG IV (18:58)
--- NOTE | 2024-09-09 19:34 | PCM.HP.STD ---
[facility] General Date of Admission: 09/09/24 Date of Service: 09/09/24 Chief Complaint: AMS and Frequent Falls. 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; on carbidopa-levodopa TID, depression with anxiety; on bupropion BID, vortioxetine plus prn clonazepam BID, migraine headaches; on topiramate and prn prochlorperazine BID, NESTOR; on ferrous sulfate, KRZYSZTOF, GERD; with history of Powers's esophagus on pantoprazole daily, OA and recent history of increasingly frequent falls on both August 29, 2024; when she then came to the ER and had a negative head CT with subsequent head jonathan followed by another fall on September 02, 2024; for which she was evaluated at [facility] with negative head CT and no severe related trauma but with additional complaints of increased fatigue and trouble focusing who now re-presents to [facility] ER complaining of altered mental status. Ms. Jara is not a fully-reliable historian at this time so information was gathered from chart, medical staff and computer. According to the records she has been wanting to sleep all the time and when she is awake her family has to work to get her attention and repeat things often - which is new. The family also informed the ER provider the patient was having poor oral intake with one episode of bilious emesis last night - which they stated is not unusual for her to have nausea and vomiting as she is chronically on multiple prn antiemetics (ondansetron and prochlorperazine). She is supposed to ambulate with a walker - but has not been routinely using one. Then earlier today multiple family members had to lift her up into a wheelchair to bring her in for evaluation by her PCP who noted her poor condition and had her sent to the ER for further evaluation and treatment. In the ER she was noted to have a UA positive for Acute Cystitis; without hematuria complicated by laboratory evidence of suspected MORE; with elevated serum creatinine of 1.34 mg/dL present on admission (up from her previous baseline of 0.92 mg/dL) combining to cause clinical evidence of Acute Metabolic Encephalopathy in the setting of suspected preexisting Mild Cognitive Impairment compounded by Generalized Weakness with Ambulatory Dysfunction and she was then admitted to the PCU for ongoing care for a stay that is expected to extend beyond 2 midnights. [facility] Medical History HTN (hypertension) Heart disease Diabetes DJD (degenerative joint disease) GERD (gastroesophageal reflux disease) Powers's esophagus Dyslipidemia Morbid obesity Home Medications ?Medication ?Instructions ?Recorded ?Last Taken ?Type bupropion HCl 200 mg tablet,12 hr 200 mg PO BID depression/anxiety 08/23/15 08/28/24 History sustained-release (Wellbutrin SR) gabapentin 600 mg tablet 600 mg PO TIDCM nerve pain 08/23/15 08/28/24 History pantoprazole 40 mg tablet,delayed 40 mg PO BID acid reflux 08/23/15 08/28/24 History release thyroid (pork) 60 mg tablet 60 mg PO BID thyroid 08/23/15 08/28/24 History ([place] Thyroid) nitroglycerin 0.4 mg sublingual 0.4 mg sublingual Q5M PRN Chest 01/01/17 10/31/17 Rx tablet Pain #30 tabs lisinopril 5 mg tablet 5 mg PO DAILY 10/31/17 08/28/24 History tizanidine 4 mg capsule (Zanaflex) 4 mg PO Q8H PRN Muscle Spasm 10/31/17 Unknown History carbidopa 25 mg-levodopa 100 mg 1 tab PO TID 08/29/24 08/28/24 History tablet cetirizine 10 mg tablet 10 mg PO DAILY 08/29/24 08/28/24 History clonazepam 1 mg tablet 1 mg PO BID PRN anxiety 08/29/24 08/28/24 History fenofibrate 54 mg tablet 54 mg PO DAILY 08/29/24 08/28/24 History ferrous sulfate 325 mg (65 mg 325 mg PO BID 08/29/24 08/28/24 History iron) tablet (FeroSul) gabapentin 300 mg capsule 300 mg PO TID 08/29/24 08/28/24 History lamotrigine 200 mg disintegrating 400 mg PO QHS . 08/29/24 08/28/24 History tablet metformin 500 mg tablet,extended 1,500 mg PO DAILY 08/29/24 08/28/24 History release 24 hr metoprolol succinate 25 mg 25 mg PO DAILY 08/29/24 08/28/24 History tablet,extended release 24 hr ondansetron HCl 4 mg tablet 4 mg PO DAILY PRN nausea and 08/29/24 Unknown History vomiting prochlorperazine maleate 10 mg 10 mg PO BID PRN PRN migraine 08/29/24 Unknown History tablet rosuvastatin 5 mg tablet 5 mg PO QHS 08/29/24 08/28/24 History semaglutide 0.25 mg or 0.5 mg (2 0.5 mg subcut QWEEK 08/29/24 08/28/24 History mg/3 mL) subcutaneous pen injector (OzempStriped Sail) topiramate 50 mg tablet 50 mg PO BID 08/29/24 08/28/24 History vortioxetine 20 mg tablet 20 mg PO DAILY 08/29/24 08/28/24 History (Trintellix) Allergy/AdvReac Type Severity Reaction Status Date / Time animal dander Allergy difficulty Verified 09/09/24 15:58 breathing citric acid AdvReac mouth sores Verified 09/09/24 15:58 mold AdvReac Nausea Verified 09/09/24 15:58 zolpidem (From Ambien) AdvReac SLEEP Verified 09/09/24 15:58 WALKING Social History Smoking Status: Former smoker ROS ROS Narrative Full ROS was not possible due to patient's acute metabolic encephalopathy. Vital Signs Vital Signs Vital Signs: 09/09/24 15:54 09/09/24 16:53 09/09/24 17:00 Temperature 97 F L Temperature Source Temporal Pulse Rate 75 70 72 Respiratory Rate 16 16 15 Blood Pressure 98/66 124/74 H 130/71 H Blood Pressure Mean 76 90 90 Pulse Ox 95 100 97 Oxygen Delivery Method Room Air Room Air 09/09/24 18:00 09/09/24 19:00 09/09/24 19:20 Temperature 98 F Temperature Source Pulse Rate 64 66 66 Respiratory Rate 13 14 14 Blood Pressure 133/63 H 134/71 H 134/71 H Blood Pressure Mean 86 92 92 Pulse Ox 94 99 97 Oxygen Delivery Method Room Air Room Air 09/09/24 19:21 Temperature 98.1 F Temperature Source Axillary Pulse Rate 67 Respiratory Rate 14 Blood Pressure 134/71 H Blood Pressure Mean 92 Pulse Ox 97 Oxygen Delivery Method Room Air Weight Weight: 165 lb 2.02 oz Body Mass Index (BMI) 25.1 Results Medical Records Data Attestation: I reviewed the patient's medical records Lab / Micro Data Attestation: I reviewed the patient's lab results. 09/09/24 16:30 09/09/24 16:30 Labs: Laboratory Results - last 24 hr 09/09/24 16:30: WBC 8.2, RBC 3.90 L, Hgb 11.5 L, Hct 33.9 L, MCV 86.9, MCH 29.5, MCHC 33.9, RDW Std Deviation 39.9, RDW Coeff of [place]ul[place] 12.7, Plt Count 235, MPV 10.4, Immature Gran % (Auto) 0.400, Neut % (Auto) 74.3 H, Lymph % (Auto) 21.0, [place] % (Auto) 4.1, Eos % (Auto) 0.0, Baso % (Auto) 0.2, Absolute Neuts (auto) 6.1, Absolute Lymphs (auto) 1.72, Nucleated RBC % 0, Sodium 138, Potassium 4.0, Chloride 104, Carbon Dioxide 20.6 L, Anion Gap 14, BUN 21 H, Creatinine 1.34 H, Est GFR (MDRD) Non-Af 45 L, BUN/Creatinine Ratio 15.5, Glucose 127 H, Lactic Acid 1.2, Calcium 9.4 09/09/24 16:53: Urine Color Straw, Urine Clarity Cloudy, Urine pH 5.0, Ur Specific [place] 1.020, Urine Protein 30 H, Urine Glucose (UA) Normal, Urine Ketones Negative, Urine Occult Blood Negative, Urine Nitrite Negative, Urine Bilirubin Negative, Urine Urobilinogen Normal, Ur Leukocyte Esterase 100 H, Urine RBC 0-5 SEEN, Urine WBC 10-25 SEEN, Ur Squamous Epith Cells 5-10 SEEN, Urine Bacteria 4+, Urine Mucus 0 SEEN Imaging Radiology Impression Brain CT 09/09/24 16:44 IMPRESSION: 1. Small vessel ischemic/degenerative changes. 2. Generalized brain atrophy. 3. No acute intracranial hemorrhage, midline shift or mass effect. If symptoms persist, further evaluation with MRI is recommended. Reading Location: [facility] Chest X-Ray 09/09/24 17:06 IMPRESSION: Pulmonary venous congestion. Reading Location: [facility] Assessment & Plan Assessment/Plan (1) Acute cystitis without hematuria: (2) MORE (acute kidney injury): (3) Altered mental status: QUALIFIERS: Altered mental status type: transient alteration of awareness Qualified Code(s): R40.4 - Transient alteration of awareness (4) Recurrent falls: (5) Generalized weakness: (6) Ambulatory dysfunction: (7) Parkinsonian tremor: (8) Depression with anxiety: (9) Polypharmacy: PLAN: Plan 1. UA positive for Acute Cystitis; without hematuria - Admit to PCU. Continue empiric IV ceftriaxone begun in the ER and await culture and sensitivity data. Give acetaminophen prn pain or fever. 2. Suspected MORE; with elevated serum creatinine of 1.34 mg/dL present on admission (up from her previous baseline of 0.92 mg/dL) complicating #1 - Give NS IVF x 2L and then recheck renal indices in AM to follow trend. 3. Acute Metabolic Encephalopathy in the setting of suspected preexisting Mild Cognitive Impairment attributable to #1 & #2 - Minimize [employer]ER-active medications and monitor for improvement. Check TSH, B12, Folate, TAMERA, HgbA1c, UDS and Lipid Profile to expand confusion workup. UDS positive for methadone and benzodiazepine with negative TAMERA. TSH, B12 and Folate levels normal. Finally, patient's PCP, Dr. Garcia, was interested in [facility] teleneurology consultation for help to manage the complexity of her case with help appreciated in advance. 4. Generalized Weakness with Ambulatory Dysfunction and frequent Falls due to #1 - #3 - PT/OT and Case Management to see this patient on-rounds in the AM for further recommendations with help appreciated in advance. 5. Recent history of increasingly frequent falls on both August 29, 2024; when she then came to the ER and had a negative head CT with subsequent head jonathan followed by another fall on September 02, 2024; for which she was evaluated at [facility] with negative head CT and no severe related trauma but with additional complaints of increased fatigue and trouble focusing adding to the medical complexity of #1 - #4 - Noted. 6. 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 7. Depression with anxiety; on bupropion BID, vortioxetine plus prn clonazepam BID exacerbated by polypharmacy with decreasing cognitive capability - Hold clonazepam but continue regimen as before. 8. DM-2; of unknown control on metformin plus diabetic neuropathy; on gabapentin TID - ADA diet. FSBS q. AC/HS plus SSI. Check HgbA1c. Resume gabapentin but hold metformin while inpatient. 9. Essential hypertension; on lisinopril and metoprolol - Hold lisinopril in light of #2 but continue metoprolol as before. 10. Hyperlipidemia; on rosuvastatin - Hold statin in case of myotoxicity contributing to #4. check Lipid Profile and consider alternative agent. 11. Hypothyroidism; on [place] thyroid - Maintain thyroid hormone replacement and check TSH. 12. Former obesity; on semaglutide - Restart this agent as outpatient. 13. Migraine headaches; on topiramate and prn prochlorperazine BID - Continue present therapy. 14. NESTOR; on ferrous sulfate - Stable with hemoglobin of 11.5 g/dL and MCV of 86.9 fL present on admission. 15. KRZYSZTOF - Continue nocturnal CPAP. 16. GERD; with history of Powers's esophagus on pantoprazole daily - Maintain PPI. 17. OA - Stable. 18. DVT prophylaxis - Enoxaparin 40 mg sq daily plus SCD's with poor mobility outlined in #4. Total time: Approximately (but not less than) 75 minutes. Charges/Coding Visit Charges Inpatient E&M: 65181 Init Hosp L3
--- OUTSIDE RECORDS SUMMARY | 2024-09-09 19:37 | XMS RPT_ITS | CCD ---
Author Organization [facility] Care Team Providers Care Employment Coach Name Role Phone PROVIDER, UNKNOWN Attending Unavailable PROVIDER, UNKNOWN Admitting Unavailable PATIENT, SELF Referring Unavailable Santhosh Holden MD Primary Care Provider Nabor Nicole MD Unavailable Nabor Nicole MD Unavailable Karim DO, Nory Unavailable Lan DMD, Shruthi Unavailable Santhosh Holden MD Primary Care Provider Nabor Nicole MD P Unavailable Santhosh Holden MD Primary Care Provider Santhosh Holden MD Primary Care Provider Nabor Nicole MD P Unavailable Karim DO, Nory Unavailable Montenegro DMD, Shruthi Unavailable Karim DO, Nory Unavailable Monten[place]ro DMD, Shruthi Unavailable Johanna Lincoln Md Unavailable SADE ALSTON Referring Unavailable SUSANNA SCHNEIDER Attending Unavailable SUSANNA SCHNEIDER Admitting Unavailable SANTHOSH HOLDEN Primary Care Unavailable Santhosh Holden MD Primary Care Provider Karim DO, Nory Unavailable Montenegro DMD, Shruthi Unavailable FARHAT GALLARDO Attending Unavailab SANTHOSH Betts Primary Care Unavailable Unavailable Primary Care Provider Unavailale e Sam COAL SCREENER.Saumya WOO Unavailable Suppan COAL SCREENER.THIRD SHIFT LIEUTENANT, Nanette A Unavailable Nabor Nicole MD Unavailable Suppan COAL SCREENER.THIRD SHIFT LIEUTENANT, Nanette A Unavailable [phone] NAVIN, SANTHOSH Zepeda Primary Care Unavailable NAVIN, SANTHOSH Zepeda Referring Unavailable NAVIN, SANTHOSH Zepeda Primary Care Unavailable SAUMYA VARGAS Attending Unavailable NAVIN, SANTHOSH Zepeda Primary Care Unavailable NAVIN, SANTHOSH Zepeda Referring Unavailable NAVIN, SANTHOSH Zepeda Primary Care Unavailable JOVANNA PRINCE Attending Unavailable NAVIN, SANTHOSH Zepeda Primary Care Unavailable NAVIN, SANTHOSH Zepeda Referring Unavailable JOSE MIR Attending Unavailable NAVIN, SANTHOSH Zepeda Primary Care Unavailable NAVIN, SANTHOSH Zepeda Referring Unavailable DRU COLLADO Attending Unavailable NAVIN, SANTHOSH Zepeda Primary Care Unavailable NIKI, JOVANNA Referring Unavailable WEISSFELD, JOVANNA Attending Unavailable NAVIN, SANTHOSH Zepeda Primary Care Unavailable WEISSFELD, JOVANNA Referring Unavailable WEISSFELD, JOVANNA Attending Unavailable NAVIN, SANTHOSH Zepeda Primary Care Unavailable ROS ORTIZ Attending Unavailable NAVIN, SANTHOSH Zepeda Primary Care Unavailable NAVIN, SANTHOSH Zepeda Attending Unavailable NAVIN, SANTHOSH Zepeda Primary Care Unavailable SELF Referring Unavailable TESTRAJONATAN, DRU Attending Unavailable NAVIN, SANTHOSH Zepeda Primary Care Unavailable SELF Referring Unavailable TESTRAJONATAN, DRU Attending Unavailable NAVIN, SANTHOSH Zepeda Primary Care Unavailable TESTRAKE, DRU Referring Unavailable NAVIN, SANTHOSH Zepeda Primary Care Unavailable TESTRAJONATAN, DRU Referring Unavailable TESTRAJONATAN, DRU Attending Unavailable NAVIN, SANTHOSH Zepeda Primary Care Unavailable TESTRAKE, DRU Referring Unavailable NAVIN, SANTHOSH Zepeda Primary Care Unavailable NAVIN, SANTHOSH Zepeda Attending Unavailable NAVIN, SANTHOSH Zepeda Primary Care Unavailable NAVIN, SANTHOSH Zepeda Referring Unavailable NAVIN, SANTHOSH Zepeda Primary Care Unavailable TESTRAKE, DRU Referring Unavailable NAVIN, SANTHOSH Zepeda Primary Care Unavailable TESTJENNIFER, DRU Attending Unavailable Navin Dr. Santhosh YU Primary Care Provider Dr. Sachin Walton DO Emergency Provider Sachin Walton Attending Unavailale e Santhosh Holden Primary Care Unavailable Navin, Santhosh Primary Care Unavailable Navin, Santhosh Attending Unavailable Santhosh Holden Referring Unavailable CASANDRA KELLEY DO Attending Unavailable CASANDRA KELLEY DO Primary Care Unavailable CASANDRA KELLEY DO Admitting Unavailable Allergies Allergy Classification Reported Allergen(s) Allergy Type Date of Onset Reaction(s) Facility (20 sources) Citric Acid; Translations: [CITRIC ACID] Drug Allergy 7 Intolerance, Other [facility] Repository (1 source) Mold; Translations: [MOLDS] Propensity to adverse reactions to drug (disorder) 9 [facility] Repository (7 sources) CAT HAIR EXTRACT; Translations: [CAT HAIR EXTRACT] Propensity to adverse reactions to drug (disorder) 6 Itching [facility] Repository (20 sources) Cat; Translations: [CATS] Allergy to substance 6 Itching [facility] (20 sources) Cat Hair Extract; Translations: [CAT HAIR STANDARDIZED ALLERGENIC EXTRACT] Drug Allergy 6 Itching [facility] (20 sources) Mold Spores; Translations: [MOLD SPORES] Allergy to substance 6 Other: See Comments [facility] (8 sources) Mold Extract Drug Allergy 9 Nausea [facility] (20 sources) zolpidem; Translations: [ZOLPIDEM] Drug Allergy 3 Other: See Comments [facility] (3 sources) animal dander; Translations: [animal dander] Allergy to substance 3 difficulty breathing [facility] (1 source) Mold Extract Drug Allergy 5 [facility] Repository (1 source) zolpidem Drug Allergy 5 [facility] Repository Medications Current Medications Medication Drug Class(es) Dates Sig (Normalized) Sig (Original) acetaminophen 500 mg oral tablet (20 sources) Start: 06-26-2020 take 2 tablets by mouth every eight hours as needed for pain acetaminophen (TYLENOL EXTRA STRENGTH) 500 mg tablet Indications: Post-op pain Take 2 tablets by mouth every 8 hours as needed for Pain. 40 tablet 06/26/2020 Active Start: 05-06-2019 take 1 tablet by zunilda every six hours as needed for pain acetaminophen (TYLENOL) 500 MG tablet Take 1 Tablet by mouth every 6 hours as needed for Pain or Fever. 40 Tablet 1 05/06/2019 Active Comment on above: Take 2 tablets by mo [facility] every 8 hours as needed for Pain. acetaminophen 325 mg / oxyCODONE hydrochloride 5 mg oral tablet (4 sources) Opioid Agonist Start: 01-05-2022 End: 01-14-2022 take 1 tablet by mouth every six hours as needed for pain oxyCODONE-acetamin ophen (PERCOCET) 5-325 mg tablet Indications: Post-operative state Take 1 tablet by mouth every 6 hours as needed for pain for up to 7 days. 28 tablet 0 01/07/2022 01/14/2022 Active Comment on above: Take 1 tablet by zunilda every 6 hours as needed for pain for up to 7 days. aluminum hydroxide 50.8 mg/ml / magnesium carbonate 47.5 mg/ml oral suspension (20 sources) Start: 02-21-2021 End: 07-17-2022 take 15 mL by mouth every twenty-four hours as needed Aluminum Hydrox-Magnesium Carb (GAVISCON EXTRA STRENGTH) 254-237.5 mg/5 mL susp Take 15 mL by mouth at bedtime as needed. 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 710 mL 11 03/29/2019 04/06/2020 Discontinued Comment on above: Take 15 mL by mouth at bedtime as needed. amoxicillin 875 mg / clavulanate 125 mg oral tablet (15 sources) Penicillin-class Antibacterial Start: 05-05-2024 End: 05-15-2024 amoxicillin-clavulana te potassium (AUGMENTIN) 875-125 mg per tablet Take 1 tablet by mouth two times a day for 10 days. FOR 10 DAYS. 20 tablet 05/05/2024 05/15/2024 Active Start: 03-29-2024 End: 04-05-2024 amoxicillin-clavulanate pota ssium (AUGMENTIN) 875-125 mg per tablet Indications: Cellulitis and abscess of toe of right foot Take 1 tablet by mouth two times a day for 7 days. FOR 7 DAYS. 14 tablet 03/29/2024 04/05/2024 Active Start: 08-18-2023 End: 08-29-2024 Amoxicillin-Pot Clavulanate 875-125 mg tablet Discontinued 1 {tbl} PO Q12H August 18, 2023 12:00am August 29, 2024 9:29am Start: 06-02-2023 End: 06-09-2023 take 1 tablet by mouth twice daily amoxicillin-clavulanate potassium (AUGMENTIN) 875-125 mg per tablet Indications: Rhinosinusitis Take 1 tablet by mouth two times a day for 7 days. 14 tablet 0 06/02/2023 06/09/2023 Active Start: 02-17-2022 End: 02-24-2022 take 1 tablet by mouth twice daily amoxicillin-clavulanic acid (AUGMENTIN) 875-125 mg per tablet Indications: Rhinosinusitis Take 1 tablet by mouth twice daily for 7 days. 14 tablet 0 02/17/2022 02/24/2022 Active Comment on above: Take 1 tablet by zunilda th twice daily for 7 days. Take 1 tablet by zunilda th two times a day for 7 days. aspirin 81 mg oral tablet (20 sources) Platelet Aggregation Inhibitor, Nonsteroidal Anti-inflammatory Drug Start: 02-02-2019 take 1 tablet by mouth once daily aspirin 81 MG tablet Take 1 Tablet by mouth daily. 100 Tablet 3 02/02/2019 Active Start: 01-01-2017 End: 08-29-2024 take 1 tablet by mouth once daily Aspirin 81 MG tablet Discontinued 81 mg PO DAILY@0800 January 01, 2017 12:00am August 29, 2024 10:02am Start: 04-07-2016 take 1 tablet by zunilda th once daily aspirin 81 mg chewable tablet Take 1 tablet by mouth once daily. 0 04/07/2016 Active Comment on above: Take 1 tablet by zunilda th once daily. atorvastatin 40 mg oral tablet (8 sources) HMG-CoA Reductase Inhibitor Start: 10-05-2018 atorvastatin (LIPITOR) 40 mg tablet Take 40 mg by mouth. 10/05/2018 Active Start: 12-31-2016 End: 08-29-2024 take 2 tablets by mouth at bedtime Atorvastatin (Lipitor) 20 MG tablet Discontinued 40 mg PO AT BEDTIME December 31, 2016 12:00am August 29, 2024 9:33am H-Iqrjfgt-M-Biotin-Minerals- FA (DIATX ZN ORAL) (6 sources) Start: 04-13-2018 X-Xntktex-B-Biotin-Minerals- FA (DIATX ZN ORAL) Take 1 Tablet by mouth. 04/13/2018 Active Start: 04-13-2018 W-Hvkvdgg-C-Bi pvck-Sztviiju-ST (DIATX ZN ORAL) Take 1 Tablet by mouth. 0 04/13/2018 Active Blood Glucose Monitoring Sup pl (FIFTY50 GLUCOSE METER 2.0) w/Device KIT (6 sources) Start: 09-27-2018 Blood Glucose Monitoring Suppl (FIFTY50 GLUCOSE METER 2.0) w/Device KIT Freestyle LITE Meter Kit -Test blood sugars one time daily. DX E11.40 09/27/2018 Active Start: 09-27-2018 Blood Glucose Monitoring Suppl (FIFTY50 GLUCOSE METER 2.0) w/Device KIT Freestyle LITE Meter Kit -Test blood sugars one time daily. DX E11.40 0 09/27/2018 Active Blood Pressure Test Kit-Large (QUICK RESPONSE BP MONITOR) kit (20 sources) Start: 07-26-2015 Blood Pressure Test Kit-Large (QUICK RESPONSE BP MONITOR) kit Indications: Essential hypertension with goal blood pressure less than 140/90 1 Kit once daily. 1 Kit 0 07/26/2015 Active Comment on above: 1 Kit once daily. Blood-Glucose Meter (FREESTYLE LITE METER) monitoring kit (20 sources) Start: 05-17-2024 Blood-Glucose Meter (FREESTYLE LITE METER) monitoring kit Indications: Type 2 diabetes mellitus with diabetic neuropathy, without long-term current use of insulin (HCC) Freestyle LITE Meter Kit -Test blood sugars one time daily. DX E11.40 1 Each 05/17/2024 Active Start: 08-28-2023 End: 05-17-2024 Blood-Glucose Meter (FREESTY LE LITE METER) monitoring kit Indications: Type 2 diabetes mellitus with diabetic neuropathy, without long-term current use of insulin (HCC) Freestyle LITE Meter Kit -Test blood sugars one time daily. DX E11.40 1 Each 08/28/2023 05/17/2024 Discontinued Start: 08-28-2023 Blood-Glucose Meter (FREESTYLE LITE METER) monitoring kit Indications: Type 2 diabetes mellitus with diabetic neuropathy, without long-term current use of insulin (HCC) Freestyle LITE Meter Kit -Test blood sugars one time daily. DX E11.40 1 Each 08/28/2023 Active Start: 08-28-2023 Blood-Glucose Meter (FREESTYLE LITE METER) monitoring kit Indications: Type 2 diabetes mellitus with diabetic neuropathy, without long-term current use of insulin (HCC) Freestyle LITE Meter Kit -Test blood sugars one time daily. DX E11.40 1 Each 0 08/28/2023 Active Start: 02-04-2022 End: 08-28-2023 Blood-Glucose Meter (FREESTY LE LITE METER) monitoring kit Indications: Type 2 diabetes mellitus with diabetic neuropathy, without long-term current use of insulin ([facility]) Freestyle LITE Meter Kit -Test blood sugars one time daily. DX E11.40 1 Each 02/04/2022 08/28/2023 Discontinued Start: 02-04-2022 End: 08-28-2023 Blood-Glucose Meter (FREESTY LE LITE METER) monitoring kit Indications: Type 2 diabetes mellitus with diabetic neuropathy, without long-term current use of insulin ([facility]) Freestyle LITE Meter Kit -Test blood sugars one time daily. DX E11.40 1 Each 0 02/04/2022 08/28/2023 Discontinued Start: 02-04-2022 Blood-Glucose Meter (FREESTYLE LITE METER) monitoring kit Indications: Type 2 diabetes mellitus with diabetic neuropathy, without long-term current use of insulin ([facility]) Freestyle LITE Meter Kit -Test blood sugars one time daily. DX E11.40 1 Each 0 02/04/2022 Active Start: 09-27-2018 End: 02-04-2022 Blood-Glucose Meter (FREESTY LE LITE METER) monitoring kit Freestyle LITE Meter Kit -Test blood sugars one time daily. DX E11.40 1 Each 09/27/2018 02/04/2022 Discontinued Start: 09-27-2018 End: 02-04-2022 Blood-Glucose Meter (FREESTY LE LITE METER) monitoring kit Freestyle LITE Meter Kit -Test blood sugars one time daily. DX E11.40 1 Each 0 09/27/2018 02/04/2022 Discontinued Start: 09-27-2018 Blood-Glucose Meter (FREESTYLE LITE METER) monitoring kit Freestyle LITE Meter Kit -Test blood sugars one time daily. DX E11.40 1 Each 0 09/27/2018 Active Comment on above: Freestyle LITE Meter Kit -Test blood sugars one time daily. DX E11.40 12 hr buPROPion hydrochloride 200 mg extended release oral tablet (20 sources) Aminoketone Start: 6 take 1 tablet by mouth twice daily Bupropion Hcl (Wellbutrin Sr) 200 MG tablet Active 200 mg PO TWICE A DAY August 23, 2015 12:00am take 1 tablet by mouth twice richard ly buPROPion (WELLBUTRIN) 100 MG tablet Take 100 mg by mouth 2 times daily. Active Comment on above: Take 200 mg by mouth twice daily. carbidopa 25 mg / levodopa 100 mg oral tablet (20 sources) Aromatic Amino Acid Decarboxylation Inhibitor, Aromatic Amino Acid Star t: 10-21 End: 11-22 25 Carbidopa-Levodopa 25-100 mg tablet Active 1 {tbl} PO THREE TIMES A DAY August 29, 2024 12:00am Comment on above: Take 1 tablet by zunilda three times daily. Take 1 tablet by zunilda three times a day. carboxymethylcellulose 0.01 mg/mg ophthalmic gel (20 sources) Star t: 11-21 End: 05-21 24 carboxymethylcellulose (REFRESH CELLUVISC) 1 % ophthalmic solution Use 1 Drop in both eyes daily at bedtime. 6 Each 5 06/04/2023 Active Comment on above: Use 1 Drop in both e yes daily at bedtime. cetirizine hydrochloride 10 mg oral tablet (20 sources) Histamine-1 Receptor Antagonist Star t: 12-10 25 take 1 tablet by mouth once daily Cetirizine 10 mg tablet Active 10 mg PO DAILY August 29, 2024 12:00am Start: 09-07-2023 End: 07-22-2025 take 1 capsule by mouth once daily Cetirizine (ZYRTEC) 10 mg cap Take 1 capsule by mouth once daily. 90 capsule 3 07/22/2024 07/22/2025 Active chlorhexidine gluconate 1.2 mg/ml mouthwash (6 sources) Start: 05-06-2019 take 15 mL by mouth twice daily chlorhexidine (PERIDEX) 0.12 % oral solution Take 15 mL by mouth 2 times daily. 1 Bottle 1 05/06/2019 Active ciclopirox 80 mg/ml topical solution (6 sources) Start: 06-18-2018 ciclopirox (PE NLAC) 8 % solution Apply topically. 06/18/2018 Active clonazePAM 1 mg oral tablet (20 sources) Benzodiazepine Start: 08-29-2024 take 1 tablet by mouth three times daily as needed Clonazepam 1 mg tablet Active 1 mg PO 3 TIMES DAILY NEEDED August 29, 2024 12:00am Start: 05-22-2016 clonazePAM (KL ONOPIN) 1 mg tablet Indications: Type 2 diabetes mellitus with mild nonproliferative diabetic retinopathy without macular edema, bilateral (HCC) 1 mg three times daily. 05/22/2016 Active Start: 08-23-2015 End: 08-29-2024 take 1 mg by mouth three times daily Clonazepam (Klonopin) 2 MG tablet Discontinued 1 mg PO THREE TIMES A DAY August 23, 2015 12:00am August 29, 2024 9:33am Comment on above: 1 mg three times richard ly. COMPOUNDED PRESCRIPTION (20 sources) Start: 07-19-2018 COMPOUNDED PRESCRIPTION Indications: Obstructive sleep apnea Initiate AutoPAP @ 10-20 cm of water with humidification mask (per patient preference) optional chin strap (if indicated) and lifetime supplies ([employer]) DX: KRZYSZTOF G47.33 1 Device 07/19/2018 Active Start: 07-19-2018 COMPOUNDED PRE SCRIPTION Indications: Obstructive sleep apnea Initiate AutoPAP @ 10-20 cm of water with humidification mask (per patient preference) optional chin strap (if indicated) and lifetime supplies ([facility] transfer) DX: KRZYSZTOF G47.33 1 Device 0 07/19/2018 Active Start: 03-02-2018 COMPOUNDED PRE SCRIPTION Indications: Type 2 diabetes mellitus with diabetic neuropathy, without long-term current use of insulin (HCC) Diabetic shoes One pair 1 Each 03/02/2018 Active Start: 03-02-2018 COMPOUNDED PRE SCRIPTION Indications: Type 2 diabetes mellitus with diabetic neuropathy, without long-term current use of insulin (HCC) Diabetic shoes One pair 1 Each 0 03/02/2018 Active Start: 09-20-2015 COMPOUNDED PRE SCRIPTION Indications: Neuropathy , DDD (degenerative disc disease), lumbar , PVD (peripheral vascular disease) , Claudication Lightweight wheelchair DX: DDD, neuropathy 1 Each 0 09/20/2015 Active Start: 09-20-2015 COMPOUNDED PRE SCRIPTION Indications: Neuropathy , DDD (degenerative disc disease), lumbar , PVD (peripheral vascular disease) ([facility]) , Claudication ([facility]) Lightweight wheelchair DX: DDD, neuropathy 1 Each 0 09/20/2015 Active Start: 08-10-2015 COMPOUNDED PRE SCRIPTION EX-LARGE BLOOD PRESSURE CUFF KIT DX I10 1 Kit 0 08/10/2015 Active Comment on above: EX-LARGE BLOOD PRESS URE CUFF KIT DX I10 Lightweight wheelcha ir DX: DDD, neuropathy Diabetic shoes One pair Initiate AutoPAP @ 1 0-20 cm of water with humidification mask (per patient preference) optional chin strap (if indicated) and lifetime supplies ([facility]) DX: KRZYSZTOF G47.33 CPAP (20 sources) Start: 01-04-2018 CPAP Indications: KRZYSZTOF (obstructive sleep apnea) CPAP with humidification. Mask (per patient preference) optional chin strap (if indicated) , filters, tubing, humidifier and lifetime supplies. 1 Device 01/04/2018 Active Start: 01-04-2018 CPAP Indicatio ns: KRZYSZTOF (obstructive sleep apnea) CPAP with humidification. Mask (per patient preference) optional chin strap (if indicated) , filters, tubing, humidifier and lifetime supplies. 1 Device 0 01/04/2018 Active Start: 03-26-2016 CPAP Indicatio ns: KRZYSZTOF (obstructive sleep apnea) Please provide supplies. Mask per preference, tubing, filters, humidity. Lifetime Supplies. Dx: G47.33 1 Device 03/26/2016 Active Start: 03-26-2016 CPAP Indicatio ns: KRZYSZTOF (obstructive sleep apnea) Please provide supplies. Mask per preference, tubing, filters, humidity. Lifetime Supplies. Dx: G47.33 1 Device 0 03/26/2016 Active Comment on above: Please provide suppl ies. Mask per preference, tubing, filters, humidity. Lifetime Supplies. Dx: G47.33 CPAP with humidifica tion. Mask (per patient preference) optional chin strap (if indicated) , filters, tubing, humidifier and lifetime supplies. desonide 0.5 mg/ml topical cream (8 sources) Corticosteroid Start: 11-04-2017 desonide (DESOWEN) 0.05 % cream Apply topically. 11/04/2017 Active Start: 10-31-2017 End: 08-29-2024 Desonide 0.05 % cream Discon tinued October 31, 2017 12:00am August 29, 2024 10:01am Start: 10-31-2017 Desonide Activ e October 31, 2017 12:00am doxycycline hyclate 100 mg oral tablet (5 sources) Tetracycline-class Drug Start: 08-05-2021 End: 08-12-2021 take 1 tablet by mouth twice daily doxycycline (VIBRA-TABS) 100 mg tablet Take 1 tablet by mouth twice daily for 7 days. 14 tablet 0 08/05/2021 08/12/2021 Active Comment on above: Take 1 tablet by zunilda th twice daily for 7 days. fenofibrate 54 mg oral tablet (20 sources) Peroxisome Proliferator Receptor alpha Agonist Start: 08-29-2024 take 1 tablet by mouth once daily Fenofibrate 54 mg tablet Active 54 mg PO DAILY August 29, 2024 12:00am Start: 02-06-2023 End: 02-17-2024 take 1 tablet by mouth once daily Fenofibrate (LOFIBRA) 54 mg tablet Take 1 tablet by mouth once daily 90 tablet 3 02/17/2024 Active Comment on above: Take 1 tablet by zunilda th once daily. ferrous sulfate 325 mg oral tablet (20 sources) Start: 06-20-2024 End: 12-17-2024 take 1 tablet by mouth twice daily at mealtime ferrous sulfate 325 mg (65 mg iron) tablet Indications: Iron deficiency anemia, unspecified iron deficiency anemia type Take 1 tablet by mouth two times a day with meals. 180 tablet 1 06/20/2024 12/17/2024 Active Start: 12-18-2023 End: 06-15-2024 take 1 tablet by mouth twice daily at mealtime ferrous sulfate 325 mg (65 mg iron) tablet Indications: Iron deficiency anemia, unspecified iron deficiency anemia type Take 1 tablet by mouth two times a day with meals. 180 tablet 1 12/18/2023 06/15/2024 Active Start: 06-19-2023 End: 12-16-2023 take 1 tablet by mouth twice daily at mealtime ferrous sulfate 325 mg (65 mg iron) tablet Indications: Iron deficiency anemia, unspecified iron deficiency anemia type Take 1 tablet by mouth two times a day with meals. 180 tablet 1 06/19/2023 12/16/2023 Active Start: 07-02-2021 End: 05-25-2023 take 1 tablet by mouth twice daily at mealtime ferrous sulfate 325 mg (65 mg iron) tablet Indications: Iron deficiency anemia, unspecified iron deficiency anemia type Take 1 tablet by mouth twice daily with meals. 60 tablet 5 01/16/2022 06/23/2022 Discontinued Comment on above: Take 1 tablet by zunilda twice daily with meals. Ferrous Sulfate (Ferrous Sulfate 325 Mg (65 Mg Iron) Tablet) 325 mg (65 mg iron) tablet (1 source) Start: 08-29-2024 Ferrous Sulfate (Ferrous Sulfate 325 Mg (65 Mg Iron) Tablet) 325 mg (65 mg iron) tablet Active 325 mg PO TWICE A DAY August 29, 2024 12:00am gabapentin 300 mg oral capsule (20 sources) Anti-epileptic Agent Start: 08-29-2024 Gabapentin 300 mg capsule Active 300 mg PO THREE TIMES A DAY August 29, 2024 12:00am with 600mg for total daily dose of 900mg Start: 08-05-2018 End: 08-14-2024 take 1 capsule by mouth three times daily gabapentin (NEURONTIN) 300 mg capsule Indications: Sciatica, unspecified laterality Take 1 capsule by mouth three times a day for 90 days. 270 capsule 05/16/2024 08/14/2024 Active Start: 08-05-2018 End: 11-09-2024 take 1 tablet by mouth three times daily gabapentin (NEURONTIN) 600 mg tablet Indications: Fibromyalgia Take 1 tablet by mouth three times a day for 180 days. 270 tablet 1 05/13/2024 11/09/2024 Active Start: 08-23-2015 Gabapentin 600 MG tablet Active 600 mg PO 3 TIMES DAILY WITH MEALS August 23, 2015 12:00am with 300mg for total daily dose of 900mg Start: 08-23-2015 take 900 mg by mouth three times daily at mealtime Gabapentin Active 900 MG PO 3 TIMES DAILY WITH MEALS August 23, 2015 12:00am Comment on above: Take 1 tablet by zunilda three times daily for 180 days. Take 1 capsule by mo [facility] three times daily for 90 days. Take 1 capsule by mo [facility] three times daily for 30 days. Take 1 capsule by mo [facility] three times a day for 30 days. Take 1 capsule by mo [facility] three times a day for 90 days. Take 1 tablet by [facility] three times a day for 180 days. ibuprofen 600 mg oral tablet (7 sources) Nonsteroidal Anti-inflammatory Drug Start: 05-06-2019 take 1 tablet by mouth every six hours as needed for pain ibuprofen (MOTRIN) 600 MG tablet Take 1 Tablet by mouth every 6 hours as needed for Pain. 40 Tablet 1 05/06/2019 Active End: 05-04-2020 take 4 tablets by mouth once daily ibuprofen (MOTRIN) 200 mg tablet Take 800 mg by mouth once daily. 05/04/2020 Discontinued lamoTRIgine 200 mg disintegrating oral tablet (20 sources) Mood Stabilizer, Anti-epileptic Agent Start: 08-29-2024 take 2 tablets by mouth at bedtime Lamotrigine 200 mg tablet,disintegrating Active 400 mg PO AT BEDTIME August 29, 2024 12:00am Start: 06-02-2019 lamoTRIgine 20 0 MG TBDP 06/02/2019 Active Start: 06-08-2017 End: 02-18-2023 take 1 tablet by mouth twice daily lamoTRIgine (LAMICTAL) 200 mg tablet Take 1 tablet by mouth two times a day. 60 tablet 5 02/18/2023 Active Start: 08-23-2015 End: 08-29-2024 Lamotrigine 150 MG tablet Discontinued 400 mg PO AT BEDTIME August 23, 2015 12:00am August 29, 2024 9:32am Start: 08-23-2015 take 400 mg by mouth at bedtim e Lamotrigine Active 400 MG PO AT BEDTIME August 23, 2015 12:00am Comment on above: Take 1 tablet by [facility] twice daily. Take 1 tablet by [facility] two times a day. lidocaine hydrochloride 20 mg/ml mucous membrane topical solution (6 sources) Antiarrhythmic, Amide Local Anesthetic Start: 0 Lidocaine HCl (LIDOCAINE VISCOUS) 2 % SOLN solution Take 5 mL by mouth as needed for Pain. 100 mL 1 05/06/2019 Active lisinopril 5 mg oral tablet (20 sources) Angiotensin Converting Enzyme Inhibitor Start: 8 End: 5 take 1 tablet by mouth once daily Lisinopril 5 MG tablet Active 5 mg PO DAILY October 31, 2017 12:00am Comment on above: Take 1 tablet by zunilda th once daily. loratadine 10 mg oral tablet (20 sources) take 1 tablet by mouth once daily loratadine (CLARITIN) 10 mg tablet Take 10 mg by mouth once daily. Active 24 hr metFORMIN hydrochloride 500 mg extended release oral tablet (20 sources) Biguanide Start: End: Metformin 500 mg tablet extended release 24 hr Active 1500 mg PO DAILY August 29, 2024 12:00am Start: 05-08-2021 End: 05-14-2024 take 3 tablets by mouth once daily at breakfast metFORMIN ER (GLUCOPHAGE XR) 500 mg 24 hr tablet Indications: Type 2 diabetes mellitus with diabetic neuropathy, without long-term current use of insulin (HCC) Take 3 tablets by mouth daily with breakfast. 270 tablet 1 11/16/2023 05/13/2024 Discontinued Start: 12-12-2019 End: 06-10-2020 take 3 tablets by mouth once daily at breakfast metFORMIN ER (GLUCOPHAGE XR) 500 mg 24 hr tablet Take 3 tablets by mouth daily with breakfast. 90 tablet 5 12/12/2019 06/10/2020 Discontinued Start: 11-08-2018 metformin (GLU COPHAGE-XR) 500 MG XR tablet Take 1,500 mg by mouth. 11/08/2018 Active Comment on above: Take 3 tablets by mo ut daily with breakfast. 24 hr metoprolol succinate 25 mg extended release oral tablet (20 sources) beta-Adrenergic Shara Start: 06-03-2019 End: 11-09-2024 take 1 tablet by mouth once daily Metoprolol Succinate 25 mg tablet extended release 24 hr Active 25 mg PO DAILY August 29, 2024 12:00am Comment on above: Take 25 mg by mouth once daily. Take 1 tablet by zunilda th once daily. multivit with minerals/lutein (MULTIVITAMIN 50 PLUS ORAL) (20 sources) take 1 tablet by mouth once daily multivit with minerals/lutein (MULTIVITAMIN 50 PLUS ORAL) Take 1 tablet by mouth once daily. Active take 1 tablet by mouth once frank y multivit with minerals/lutein (MULTIVITAMIN 50 PLUS ORAL) Take 1 tablet by mouth once daily. 0 Active Comment on above: Take 1 tablet by zunilda th once daily. nitroglycerin 0.3 mg sublingual tablet (20 sources) Nitrate Vasodilator Start: 02-06-2023 End: 02-06-2023 nitroglycerin sublingual (NITROQUICK) 0.3 mg SL tablet Dissolve 1 tablet under the tongue every 5 minutes as needed. 25 tablet 3 02/06/2023 Active Start: 01-01-2017 Nitroglycerin 0.4 MG tablet Active 0.4 mg SL Q5M as needed for Chest Pain January 01, 2017 12:00am Comment on above: Dissolve 0.3 mg unde r the tongue every 5 minutes as needed. Dissolve 1 tablet un gurmeet the tongue every 5 minutes as needed. ondansetron 4 mg oral tablet (20 sources) Serotonin-3 Receptor Antagonist Start: 5 take 1 tablet by mouth once daily as needed for nausea and vomiting Ondansetron Hcl 4 mg tablet Active 4 mg PO DAILY as needed for nausea and vomiting August 29, 2024 12:00am Start: 10-05-2018 End: 06-07-2024 take 1 tablet by mouth once daily as needed ondansetron (ZOFRAN) 4 mg tablet Take 1 tablet by mouth once daily as needed. 10 tablet 1 06/08/2024 Active Comment on above: Take 1 tablet by [facility] once daily as needed. pantoprazole 40 mg delayed release oral tablet (20 sources) Proton Pump Inhibitor Start: 9 End: 5 take 1 tablet by mouth twice daily pantoprazole DR (PROTONIX) 40 mg tablet Indications: Powers's esophagus with dysplasia Take 1 tablet by mouth two times a day. 180 tablet 1 05/06/2024 Active Start: 08-23-2015 take 2 tablets by mo [facility] once daily Pantoprazole 40 MG tablet Active 80 mg PO DAILY August 23, 2015 12:00am Start: 08-23-2015 take 40 mg by mouth once daily Pantoprazole Active 40 MG PO DAILY August 23, 2015 12:00am Comment on above: [facility] Take 1 tablet by [facility] two times a day. phenylephrine hydrochloride 25 mg/ml ophthalmic solution (6 sources) alpha-1 Adrenergic Agonist Start: 06-02-2024 End: 06-03-2024 PHENYLephrine 2.5 % 1 Drop (AK-DILATE, NIRALI-SYNEPHRINE) Start: 06-02-2024 End: 06-03-2024 1 Drop, BOTH EYES, DIRECT ED, Starting on Thu06/02/24 at 1500, Until Thu06/03/24 at 0259, Administer for dilation PROTECT FROM LIGHT Start: 06-02-2023 End: 06-03-2023 PHENYLephrine 2.5 % 1 Drop ( AK-DILATE, NIRALI-SYNEPHRINE) Start: 05-30-2022 End: 05-31-2022 PHENYLephrine 2.5 % 1 Drop ( AK-DILATE) polyethylene glycol 400 4 mg /ml / propylene glycol 3 mg/ml ophthalmic solution (20 sources) Start: 05-30-2022 End: 01-01-2024 PEG 400-propylene glycol (SYSTANE ULTRA) 0.4-0.3 % ophthalmic solution Indications: Type 2 diabetes mellitus without retinopathy (HCC) Use 1 Drop in both eyes twice daily. 10 mL 3 11/27/2022 Active Start: 05-30-2022 End: 07-04-2023 PEG 400-propylene glycol (SY STANE ULTRA) 0.4-0.3 % ophthalmic solution Indications: Type 2 diabetes mellitus without retinopathy (HCC) Use 1 Drop in both eyes twice daily. 10 mL 3 05/30/2022 07/04/2023 Active Comment on above: Use 1 Drop in both e yes twice daily. predniSONE 20 mg oral tablet (6 sources) Start: 08-05-2021 End: 08-10-2021 take 2 tablets by mouth once daily predniSONE (DELTASONE) 20 mg tablet Take 2 tablets by mouth once daily for 5 days. 10 tablet 0 08/05/2021 08/10/2021 Active Start: 10-31-2017 End: 08-29-2024 take 1 tablet by mouth once daily Prednisone 10 MG tablet Discontinued 10 mg PO DAILY October 31, 2017 12:00am August 29, 2024 9:32am Comment on above: Take 2 tablets by [facility] once daily for 5 days. prochlorperazine 10 mg oral tablet (20 sources) Phenothiazine Start: take 1 tablet by mouth twice daily as needed Prochlorperazine Maleate 10 mg tablet Active 10 mg PO TWICE DAILY NEEDED as needed for migraine August 29, 2024 12:00am Start: 08-06-2022 End: 06-20-2024 take 1 tablet by mouth twice daily as needed prochlorperazine (COMPAZINE) 10 mg tablet Indications: Migraine without aura, intractable, with status migrainosus Take 1 tablet by mouth two times a day as needed (migraine). 20 tablet 4 06/21/2024 Active Comment on above: Take 1 tablet by zunilda th twice daily as needed (migraine). proparacaine hydrochloride 5 mg/ml ophthalmic solution (6 sources) Local Anesthetic Start: 06-02-2024 End: 06-03-2024 proparacaine 0.5 % 1 Drop (ALCAINE) Start: 06-02-2024 End: 06-03-2024 1 Drop, BOTH EYES, DIRECT ED, Starting on Thu06/02/24 at 1500, Until Thu06/03/24 at 0259, Administer for pneumo tonometry, tonopen tonometry, or pachymetry. In the event of a proparacaine shortage, administer tetracaine 0.5% ophthalmic drops 1 drop in the left eye as directed for pneumo tonometry, tonopen tonometry, or pachymetry Start: 06-02-2023 End: 06-03-2023 proparacaine 0.5 % 1 Drop (A LCAINE) Start: 05-30-2022 End: 05-31-2022 proparacaine 0.5 % 1 Drop (A LCAINE) rosuvastatin calcium 5 mg oral tablet (20 sources) HMG-CoA Reductase Inhibitor Start: 10-21-2021 End: 10-22-2024 take 1 tablet by mouth at bedtime Rosuvastatin 5 mg tablet Active 5 mg PO AT BEDTIME August 29, 2024 12:00am Comment on above: Take 1 tablet by zunilda th daily at bedtime. semaglutide (OZEMPIC) 0.25 mg or 0.5 mg (2 mg/3 mL) pen (20 sources) Start: 05-17-2024 End: 05-17-2025 inject 0.5 mg by subcutaneous injection every week semaglutide (OZEMPIC) 0.25 mg or 0.5 mg (2 mg/3 mL) pen Indications: Type 2 diabetes mellitus with diabetic neuropathy, without long-term current use of insulin (HCC) Inject 0.5 mg subcutaneously one time a week. 3 mL 11 05/17/2024 05/17/2025 Active Start: 08-28-2023 End: 05-17-2024 inject 0.5 mg by subcutaneous injection every week semaglutide (OZEMPIC) 0.25 mg or 0.5 mg (2 mg/3 mL) pen Indications: Type 2 diabetes mellitus with diabetic neuropathy, without long-term current use of insulin (HCC) Inject 0.5 mg subcutaneously one time a week. 3 mL 11 08/28/2023 05/17/2024 Discontinued Start: 08-28-2023 End: 08-27-2024 inject 0.5 mg by subcutaneous injection every week semaglutide (OZEMPIC) 0.25 mg or 0.5 mg (2 mg/3 mL) pen Indications: Type 2 diabetes mellitus with diabetic neuropathy, without long-term current use of insulin (HCC) Inject 0.5 mg subcutaneously one time a week. 3 mL 08/28/2023 08/27/2024 Active Start: 08-28-2023 End: 08-28-2023 semaglutide (OZEMPIC) 0.25 m g or 0.5 mg (2 mg/3 mL) pen Indications: Type 2 diabetes mellitus with diabetic neuropathy, without long-term current use of insulin (HCC) Inject 0.25 mg subcutaneously one time a week. 3 mL 1 08/28/2023 08/28/2023 Discontinued Start: 08-03-2023 End: 08-28-2023 semaglutide (OZEMPIC) 0.25 m g or 0.5 mg (2 mg/3 mL) pen Indications: Type 2 diabetes mellitus with diabetic neuropathy, without long-term current use of insulin (HCC) Inject 0.25 mg subcutaneously one time a week. 3 mL 08/03/2023 08/28/2023 Discontinued Start: 08-03-2023 End: 11-01-2023 semaglutide (OZEMPIC) 0.25 m g or 0.5 mg (2 mg/3 mL) pen Indications: Type 2 diabetes mellitus with diabetic neuropathy, without long-term current use of insulin (HCC) Inject 0.25 mg subcutaneously one time a week. 3 mL 1 08/03/2023 11/01/2023 Active Semaglutide [Semaglutide 0.25 Mg Or 0.5 Mg (2 Mg/3 Ml) Subcutaneous Pen Injector] (1 source) Start: 08-29-2024 Semaglutide [Semaglutide 0.25 Mg Or 0.5 Mg (2 Mg/3 Ml) Subcutaneous Pen Injector] (Semaglutide 0.25 Mg Or 0.5 Mg (2 Mg/3 Ml) Subcutaneous Pen ) 0.25 mg or 0.5 mg (2 mg/3 mL) pen injector Active 0.5 mg SC EVERY WEEK August 29, 2024 12:00am Thyroid (Pork) ([place] Thyroid) 60 MG tablet (1 source) Start: 08-23-2015 take 1 tablet by mouth twice daily Thyroid (Pork) ([place] Thyroid) 60 MG tablet Active 60 mg PO TWICE A DAY August 23, 2015 12:00am thyroid (correction) 60 mg oral tablet (20 sources) Start: 08-23-2015 End: 07-22-2024 take 1 tablet by mouth twice daily thyroid, pork, (ARMOUR THYROID) 60 mg tablet Take 1 tablet by mouth two times a day. 60 tablet 5 07/22/2024 Active Comment on above: Take 1 tablet by zunilda twice daily. Take 1 tablet by zunilda two times a day. topiramate 50 mg oral tablet (4 sources) Start: 06-22-2024 End: 12-19-2024 take 1 tablet by mouth twice daily Topiramate 50 mg tablet Active 50 mg PO TWICE A DAY August 29, 2024 12:00am tropicamide 10 mg/ml ophthalmic solution (6 sources) Anticholinergic Start: 06-02-2024 End: 06-03-2024 tropicamide 1 % 1 Drop (MYDRIACYL) Start: 06-02-2024 End: 06-03-2024 1 Drop, BOTH EYES, DIRECT ED, Starting on Thu06/02/24 at 1500, Until Thu06/03/24 at 0259, Administer for dilation Start: 06-02-2023 End: 06-03-2023 tropicamide 1 % 1 Drop (MYDR IACYL) Start: 05-30-2022 End: 05-31-2022 tropicamide 1 % 1 Drop (MYDR IACYL) vortioxetine 20 mg oral tablet (20 sources) Start: 08-29-2024 take 1 tablet by mouth once daily Vortioxetine (Trintellix) 20 mg tablet Active 20 mg PO DAILY August 29, 2024 12:00am Start: 06-02-2019 TRINTELLIX 20 MG TABS 06/02/2019 Active Start: 08-23-2015 End: 08-29-2024 take 1 tablet by mouth at bedtime Vortioxetine (Trintellix) 10 MG tablet Discontinued 20 mg PO AT BEDTIME August 23, 2015 12:00am August 29, 2024 9:31am Comment on above: Take 1 tablet by zunilda th once daily. Wheel Chair issac (20 sources) Start: 09-11-2015 Wheel Chair issac DX: debility 1 Device 0 09/11/2015 Active Comment on above: DX: debility Completed/Discontinued Medications Medication Drug Class(es) Dates Sig (Normalized) Sig (Original) acetaminophen 325 mg / HYDROcodone bitartrate 5 mg oral tablet (2 sources) Opioid Agonist Start: 10-31-2017 End: 08-29-2024 Hydrocodone-Acetami nophen 1 TABLET tablet Discontinued 1 {tbl} PO EVERY 6 HOURS NEEDED as needed for Pain 10 October 31, 2017 12:00am August 29, 2024 9:32am Start: 10-31-2017 take 1 tablet by zunilda th every six hours as needed Hydrocodone-Acetaminophen Active 1 TABLE T PO EVERY 6 HOURS NEEDED 12 23October 31, 2017 12:00am [id number] 200 actuat albuterol 0.09 mg/actuat metered dose inhaler (11 sources) beta2-Adrenergic Agonist Start: 08-05-2021 End: 10-07-2021 take 2 puff(s) by inhalation every six hours as needed albuterol HFA (PROAIR HFA) 90 mcg/actuation inhaler Inhale 2 Puffs as instructed every 6 hours as needed. 1 Inhaler 0 08/05/2021 10/07/2021 Discontinued Comment on above: Inhale 2 Puffs as instructed every 6 marjorie rs as needed. benzonatate 100 mg oral capsule (20 sources) Non-narcotic Antitussive Start: 04-14-2021 End: 10-07-2021 take 2 capsules by mouth every eight hours as needed benzonatate (TESSALON PERLE) 100 mg capsule Take 2 capsules by mouth three times daily as needed. 30 capsule 1 04/14/2021 10/07/2021 Discontinued Comment on above: Take 2 capsules by mouth three times richard ly as needed. cephalexin 500 mg oral capsule (20 sources) Cephalosporin Antibacterial Start: 01-01-2022 End: 02-06-2023 take 1 capsule by mouth three times daily cephALEXin (KEFLEX) 500 mg capsule Take 1 capsule by mouth three times daily. 21 capsule 01/05/2022 02/06/2023 Discontinued Start: 08-09-2021 End: 10-07-2021 take 1 capsule by mouth three times daily cephALEXin (KEFLEX) 500 mg capsule Indications: Ulcer of toe of left foot, limited to breakdown of skin (HCC) Take 1 capsule by mouth three times daily. 21 capsule 0 08/09/2021 10/07/2021 Discontinued Comment on above: Take 1 capsule by mo uth three times daily. Take 1 capsule by mo ut three times daily for 7 days. cyanocobalamin, vitamin B-12, (VITAMIN B-12 ORAL) (20 sources) End: 01-01-2022 take 2 tablets by mouth once daily cyanocobalamin, vitamin B-12, (VITAMIN B-12 ORAL) Take 2 tablets by mouth once daily. 01/01/2022 Discontinued End: 01-01-2022 take 2 tablets by mouth once daily cyanocobalamin, vitamin B-12, (VITAMIN B-12 ORAL) Take 2 tablets by mouth once daily. 0 01/01/2022 Discontinued take 2 tablets by mo uth once daily cyanocobalamin, vitamin B-12, (VITAMIN B-12 ORAL) Take 2 tablets by mouth once daily. 0 Active Comment on above: Take 2 tablets by mo uth once daily. deutetrabenazine 12 mg oral tablet (20 sources) Start: 020 End: 023 take 1 tablet by mouth twice daily A[place] 12 mg tab Take 12 mg by mouth twice daily. 08/05/2019 11/07/2022 Discontinued Comment on above: Take 12 mg by mouth twice daily. 12 hr dextromethorphan hydrobromide 30 mg / guaiFENesin 600 mg extended release oral tablet (1 source) Uncompetitive Y-yjiyva-B-aspartate Receptor Antagonist, Sigma-1 Agonist Start: 024 End: 025 Dextromethorphan-Guai fenesin 30-600 mg tablet extended release 12 hr Discontinued 1 {tbl} PO Q12H as needed for cough 14 August 18, 2023 12:00am August 29, 2024 10:01am ergocalciferol 1.25 mg oral capsule (9 sources) Provitamin D2 Compound Start: 018 End: take 1 capsule by mouth every week ergocalciferol 50,000 unit capsule (VITAMIN D2, DRISDOL) Take 1 capsule by mouth one time a week. 12 capsule 3 09/02/2019 04/14/2020 Discontinued (Course of therapy completed) Start: 12-31-2016 End: 08-29-2024 Ergocalciferol (Vitamin D2) (Vitamin D2) 50,000 UNIT capsule Discontinued 35049 U PO ALLEN December 31, 2016 12:00am August 29, 2024 10:01am fluticasone propionate 0.05 mg/actuat metered dose nasal spray (9 sources) Corticosteroid Start: 03-30-2019 End: 03-08-2021 take 2 spray(s) nasal route once daily fluticasone (FLONASE) 50 mcg/actuation nasal spray Indications: [id number] (obstructive sleep apnea) , Nasal congestion Use 2 Sprays in each nostril once daily. 1 Bottle 11 03/30/2019 03/08/2021 Discontinued Start: 07-14-2018 fluticasone (F LONASE) 50 MCG/ACT nasal inhaler 2 Sprays. 07/14/2018 Active Start: 08-23-2015 End: 08-29-2024 Fluticasone Propionate 1 SPR AY spray,suspension Discontinued 2 NMA NASAL DAILY August 23, 2015 12:00am August 29, 2024 10:01am Start: 08-23-2015 Fluticasone Pr opionate Active 2 SPRAY NASAL DAILY August 23, 2015 12:00am iv contrast (will be provided with radiology test) (15 sources) Start: 04-14-2020 End: 10-07-2021 inject 1 dose intravenously once iv contrast (will be provided with radiology test) MRI Brain Localization Inject, intravenously, once for 1 dose.No IV access, insert saline lock prior to beginning of sedation, infusion, injection of imaging exam.Discontinue saline lock post exam. If Pt. has a central line or IVAD, may access for administration according to line specific nursing protocol.Once exam is complete flush line and de-access according to line specific nursing protocol in the MR contrast administration guidelines link 1 Each 04/14/2020 10/07/2021 Discontinued Start: 04-14-2020 End: 10-07-2021 inject 1 dose intravenously once iv contrast (will be provided with radiology test) MRI Brain Localization Inject, intravenously, once for 1 dose.No IV access, insert saline lock prior to beginning of sedation, infusion, injection of imaging exam.Discontinue saline lock post exam. If Pt. has a central line or IVAD, may access for administration according to line specific nursing protocol.Once exam is complete flush line and de-access according to line specific nursing protocol in the MR contrast administration guidelines link 1 Each 0 04/14/2020 10/07/2021 Discontinued Start: 04-14-2020 inject 1 dose intravenously on ce iv contrast (will be provided with radiology test) MRI Brain Localization Inject, intravenously, once for 1 dose.No IV access, insert saline lock prior to beginning of sedation, infusion, injection of imaging exam.Discontinue saline lock post exam. If Pt. has a central line or IVAD, may access for administration according to line specific nursing protocol.Once exam is complete flush line and de-access according to line specific nursing protocol in the MR contrast administration guidelines link 1 Each 0 04/14/2020 Active Comment on above: MRI Brain Localizati on Inject, intravenously, once for 1 dose.No IV access, insert saline lock prior to beginning of sedation, infusion, injection of imaging exam.Discontinue saline lock post exam. If Pt. has a central line or IVAD, may access for administration according to line specific nursing protocol.Once exam is complete flush line and de-access according to line specific nursing protocol in the MR contrast administration guidelines link lisdexamfetamine dimesylate 20 mg oral capsule (20 sources) Central Nervous System Stimulant Start: 023 End: 025 VYVANSE 20 mg capsule 40 mg. 07/29/2022 05/20/2024 Discontinued (Discontinued by another Health Care Provider) Comment on above: 40 mg. lurasidone hydrochloride 20 mg oral tablet (20 sources) Atypical Antipsychotic Start: 018 End: 025 take 1 tablet by mouth once daily lurasidone (LATUDA) 20 mg tablet take 1 tablet by mouth once daily with supper 07/20/2023 06/22/2024 Discontinued Start: 10-20-2017 lurasidone (LA TUDA) 20 MG TABS tablet Take 40 mg by mouth. 10/20/2017 Active primidone 50 mg oral tablet (7 sources) Anti-epileptic Agent Start: 06-11-2018 End: 04-14-2020 take 2 tablets by mouth at bedtime primidone (MYSOLINE) 50 mg tablet Increase as directed to 2 tablets by mouth at bedtime 60 tablet 5 03/07/2019 04/14/2020 Discontinued (Course of therapy completed) propranolol hydrochloride 10 mg oral tablet (11 sources) beta-Adrenergic Shara Start: 08-23-2015 End: 08-29-2024 take 1 tablet by mouth once daily propranolol (INDERAL) 10 mg tablet Indications: Essential tremor Take 1 tablet by mouth once daily. 90 tablet 1 09/02/2019 03/14/2020 Discontinued tiZANidine 4 mg oral tablet (20 sources) Central alpha-2 Adrenergic Agonist Start: 09-01-2018 End: 10-27-2022 take 1 tablet by mouth every eight hours as needed tiZANidine (ZANAFLEX) 4 mg tablet Indications: DDD (degenerative disc disease), cervical , Acute pain of left shoulder Take 1 tablet by mouth every 8 hours as needed. 20 tablet 3 09/01/2018 03/26/2020 Discontinued Start: 10-31-2017 Tizanidine (Za naflex) 4 MG capsule Active 4 mg PO NEEDED as needed for Muscle Spasm October 31, 2017 12:00am Comment on above: Take 1 tablet by [facility] every 8 hours as needed. vitamin B complex with C-FA-CU-ZN renal vitamins (DIATX ZN) 5-1.5-25 mg tab (1 source) Start: 04-13-2018 End: 04-14-2020 vitamin B complex with C-FA-CU-ZN renal vitamins (DIATX ZN) 5-1.5-25 mg tab Take 1 tablet by mouth once daily. 30 tablet 5 04/13/2018 04/14/2020 Discontinued (Course of therapy completed) zaleplon 10 mg oral capsule (2 sources) gamma-Aminobutyric Acid A Receptor Agonist Start: 10-31-2017 End: 08-29-2024 Zaleplon 10 MG capsule Discontinued 10 mg PO NEEDED as needed for Sleep October 31, 2017 12:00am August 29, 2024 10:00am Problems Active Problems Problem Classification Problem Date Documented Da te Episodic/Chronic Acquired foot deformities (4 sources) Hammer toe; Translations: [Other hammer toe(s) (acquired), left foot] Chronic Acquired foot deformities (6 sources) Hammer toe; Translations: [Other hammer toe(s) (acquired), right foot] Chronic Acute bronchitis (1 source) Acute bronchitis; Translations: [Acute bronchitis, unspecified] 08-18-2023 Episodic Anxiety disorders (20 sources) Anxiety neurosis ; Translations: [Generalized anxiety disorder] Onset: 5 01-05-2015 Chronic Bacterial infection; unspecified site (1 source) Infection by methicillin sensitive Staphylococcus aureus; Translations: [Methicillin susceptible Staphylococcus aureus infection, unspecified site] 05-10-2024 Episodic Blindness and vision defects (4 sources) Presbyopia; Translations: [Presbyopia] Episodic Cardiac and circulatory congenital anomalies (20 sources) Myocardial bridge of coronary artery; Translations: [Malformation of coronary vessels] Onset: 0 03-14-2020 Chronic Cataract (4 sources) Bilateral senile combined form cataracts of eyes; Translations: [Combined forms of age-related cataract, bilateral] Chronic Chronic ulcer of skin (6 sources) Ulcer of toe; Translations: [Non-pressure chronic ulcer of other part of left foot limited to breakdown of skin] Chronic Conditions associated with dizziness or vertigo (1 source) Dizziness and giddiness; Translations: [Dizziness and giddiness] 12-25-2023 Episodic Coronary atherosclerosis and other heart disease (20 sources) Coronary atherosclerosis; Translations: [Atherosclerotic heart disease of [place] coronary artery without angina pectoris] Onset: 0 08-22-2019 Chronic Deficiency and other anemia (9 sources) Iron deficiency anemia; Translations: [Iron deficiency anemia, unspecified] Episodic Deficiency and other anemia (1 source) Anemia; Translations: [Anemia, unspecified] 05-23-2024 Episodic Diabetes mellitus with complications (20 sources) Disorder of nervous system due to type 2 diabetes mellitus; Translations: [Type 2 diabetes mellitus with other diabetic neurological complication] Onset: 6 Resolved: 7 Chronic Diabetes mellitus without complication (20 sources) Diabetes mellitus; Translations: [Type 2 diabetes mellitus without complications] Onset: 5 08-10-2017 Chronic Disorders of lipid metabolism (20 sources) Hyperlipidemia; Translations: [Hyperlipidemia, unspecified] Onset: 6 12-12-2015 Chronic E Codes: Fall (20 sources) Fall; Translations: [Unspecified fall, subsequent encounter] Onset: 4 Episodic Esophageal disorders (20 sources) Gastroesophageal reflux disease; Translations: [Gastro-esophageal reflux disease without esophagitis] Onset: 5 11-17-2014 Chronic Essential hypertension (20 sources) Hypertensive disorder; Translations: [Essential (primary) hypertension] Onset: 5 11-17-2014 Chronic Fracture of lower limb (12 sources) Closed fracture of phalanx of foot; Translations: [Displaced unspecified fracture of right lesser toe(s), initial encounter for closed fracture] Onset: 5 10-15-2022 Episodic Genitourinary symptoms and ill-defined conditions (11 sources) Microalbuminuria; Translations: [Proteinuria, unspecified] Episodic Headache; including migraine (6 sources) Refractory migraine without aura; Translations: [Migraine without aura, intractable, with status migrainosus] 11-07-2022 Chronic Headache; including migraine (20 sources) Chronic headache disorder; Translations: [Chronic headaches] Onset: 9 11-17-2014 Episodic Immunizations and screening for infectious disease (1 source) Vaccination needed; Translations: [Encounter for immunization] Episodic Mood disorders (20 sources) Bipolar I disorder; Translations: [Bipolar disorder, unspecified] Onset: 5 Resolved: 5 11-17-2014 Chronic Mycoses (1 source) Onychomycosis; Translations: [Tinea unguium] Episodic Nonspecific chest pain (20 sources) Atypical chest pain; Translations: [Other chest pain] Onset: 4 Resolved: 5 12-31-2016 Episodic Open wounds of extremities (2 sources) Open wound of toe; Translations: [Unspecified open wound of unspecified toe(s) without damage to nail, initial encounter] 05-05-2024 Episodic Open wounds of head; neck; and trunk (1 source) Laceration without foreign body of scalp, initial encounter; Translations: [Laceration without foreign body of scalp, initial encounter] Onset: 5 Episodic Osteoarthritis (20 sources) Arthritis of left acromioclavicular joint; Translations: [Primary osteoarthritis, left shoulder] Onset: 9 06-11-2018 Chronic Other and unspecified benign neoplasm (2 sources) History of polyp of colon; Translations: [Personal history of colonic polyps] 12-05-2022 Episodic Other circulatory disease (1 source) Abnormal peripheral pulse; Translations: [Other specified symptoms and signs involving the circulatory and respiratory systems] Episodic Other circulatory disease (20 sources) H/O: hypertension; Translations: [Personal history of other diseases of the circulatory system] Onset: 4 10-29-2022 Episodic Other congenital anomalies (1 source) Porokeratosis; Translations: [Other specified congenital malformations of skin] 06-03-2024 Chronic Other connective tissue disease (2 sources) Pain in finger of right hand; Translations: [Pain in right finger(s)] Episodic Other connective tissue disease (1 source) Abnormal posture; Translations: [Abnormal posture] Episodic Other connective tissue disease (1 source) Recurrent falls ; Translations: [Repeated falls] 10-29-2022 Episodic Other diseases of kidney and ureters (3 sources) Renal impairment; Translations: [Disorder of kidney and ureter, unspecified] 05-25-2024 Episodic Other diseases of kidney and ureters (1 source) Disorder of kidney and ureter, unspecified; Translations: [Renal insufficiency] Onset: 5 Episodic Other ear and sense organ disorders (2 sources) Hearing loss; Translations: [Other specified hearing loss, unspecified ear] 09-23-2023 Chronic Other ear and sense organ disorders (1 source) Bilateral hearing loss; Translations: [Unspecified hearing loss, bilateral] 12-25-2023 Chronic Other ear and sense organ disorders (20 sources) Sensorineural hearing loss, bilateral; Translations: [Sensorineural hearing loss, bilateral] Onset: 4 12-25-2023 Chronic Other ear and sense organ disorders (1 source) Unspecified hearing loss, bilateral; Translations: [Bilateral hearing loss, unspecified hearing loss type] Onset: 4 Chronic Other ear and sense organ disorders (1 source) Tinnitus of right ear; Translations: [Tinnitus, right ear] 12-25-2023 Episodic Other eye disorders (4 sources) Disorder of lacrimal gland; Translations: [Dry eye syndrome of bilateral lacrimal glands] Episodic Other gastrointestinal disorders (1 source) Heartburn; Translations: [Heartburn] Onset: 3 Episodic Other hereditary and degenerative nervous system conditions (20 sources) Essential tremor; Translations: [Essential tremor] Onset: 8 08-22-2019 Chronic Other hereditary and degenerative nervous system conditions (2 sources) Disorder of nervous system; Translations: [Degenerative disease of nervous system, unspecified] Chronic Other hereditary and degenerative nervous system conditions (1 source) Essential and other specified forms of tremor Onset: 8 02-01-2019 Chronic Other hereditary and degenerative nervous system conditions (1 source) Essential tremor; Translations: [Essential tremor] Onset: 0 Chronic Other injuries and conditions due to external causes (20 sources) H/O: fracture; Translations: [Personal history of (healed) traumatic fracture] Onset: 4 10-29-2022 Episodic Other injuries and conditions due to external causes (1 source) Closed injury of head; Translations: [Unspecified injury of head, initial encounter] 08-29-2024 Episodic Other liver diseases (20 sources) Hepatic fibrosis; Translations: [Liver fibrosis] Onset: 8 01-04-2018 Chronic Other liver diseases (1 source) 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 of alcohol Onset: 8 02-01-2019 Chronic Other lower respiratory disease (1 source) Dyspnea; Translations: [Shortness of breath] 05-08-2023 Episodic Other lower respiratory disease (3 sources) Cough; Translations: [Acute cough] 06-02-2023 Episodic Other nervous system disorders (20 sources) Neuropathy; Translations: [Polyneuropathy, unspecified] Onset: 9 11-17-2014 Chronic Other nervous system disorders (1 source) Mononeuritis of unspecified site Onset: 9 02-01-2019 Chronic Other nervous system disorders (1 source) Parkinsonism due to drug; Translations: [Other drug induced secondary parkinsonism] 06-22-2024 Chronic Other nervous system disorders (1 source) Ataxia; Translations: [Ataxia, unspecified] Episodic Other nervous system disorders (2 sources) Postoperative pain ; Translations: [Other acute postprocedural pain] Episodic Other nervous system disorders (1 source) Impairment of balance; Translations: [Other abnormalities of gait and mobility] 10-29-2022 Episodic Other nervous system disorders (9 sources) Tremor; Translations: [Tremor, unspecified] 11-07-2022 Episodic Other non-traumatic joint disorders (20 sources) Rotator cuff arthropathy of left shoulder; Translations: [Other specific arthropathies, not elsewhere classified, left shoulder] Onset: 8 10-23-2017 Chronic Other non-traumatic joint disorders (1 source) Arthropathy, unspecified, shoulder region Onset: 9 02-01-2019 Chronic Other non-traumatic joint disorders (1 source) Other specified arthropathy, shoulder region Onset: 8 02-01-2019 Chronic Other nutritional; endocrine; and metabolic disorders (20 sources) Obesity; Translations: [Obesity, unspecified] Onset: 5 05-19-2018 Chronic Other nutritional; endocrine; and metabolic disorders (20 sources) Morbid obesity; Translations: [Morbid (severe) obesity due to excess calories] Onset: 7 Resolved: 7 10-29-2022 Chronic Other nutritional; endocrine; and metabolic disorders (1 source) Obesity, unspecified Onset: 5 06-20-2014 Chronic Other nutritional; endocrine; and metabolic disorders (20 sources) H/O: diabetes mellitus; Translations: [Personal history of other endocrine, nutritional and metabolic disease] Onset: 4 Resolved: 5 10-29-2022 Episodic Other upper respiratory infections (2 sources) Chronic sinusitis; Translations: [Chronic sinusitis, unspecified] Chronic Residual codes; unclassified (20 sources) Obstructive sleep apnea syndrome; Translations: [Obstructive sleep apnea (adult) (pediatric)] Onset: 5 03-26-2016 Chronic Residual codes; unclassified (2 sources) Obstructive sleep apnea (adult) (pediatric); Translations: [[id number] (obstructive sleep apnea)] Onset: 7 Chronic Residual codes; unclassified (1 source) Obstructive sleep apnea (adult)(pediatric) Onset: 5 02-01-2019 Chronic Residual codes; unclassified (3 sources) Pain; Translations: [Pain, unspecified] Episodic Residual codes; unclassified (3 sources) Postoperative state; Translations: [Other specified postprocedural states] Episodic Residual codes; unclassified (1 source) Amnesia; Translations: [Other amnesia] 12-05-2022 Episodic Residual codes; unclassified (2 sources) Memory impairment; Translations: [Other amnesia] 06-22-2024 Episodic Skin and subcutaneous tissue infections (7 sources) Cellulitis and abscess of toe; Translations: [Cellulitis of right toe] Onset: 5 03-29-2024 Episodic Spondylosis; intervertebral disc disorders; other back problems (20 sources) Degeneration of lumbar intervertebral disc; Translations: [Other intervertebral disc degeneration, lumbar region] Onset: 8 01-05-2015 Chronic Spondylosis; intervertebral disc disorders; other back problems (20 sources) Sciatica; Translations: [Sciatica, unspecified side] Onset: 9 11-17-2014 Episodic Sprains and strains (20 sources) Sprain of wrist; Translations: [Unspecified sprain of right wrist, initial encounter] Onset: 4 10-29-2022 Episodic Superficial injury; contusion (20 sources) Contusion of elbow; Translations: [Contusion of right elbow, initial encounter] Onset: 4 10-29-2022 Episodic Thyroid disorders (20 sources) Hypothyroidism; Translations: [Hypothyroidism, unspecified] Onset: 5 11-17-2014 Chronic Unclassified (20 sources) Reflux; Translations: [Reflux] Onset: 5 06-20-2014 Unclassified (1 source) Liver fibrosis; Translations: [Liver fibrosis] Onset: 8 Unclassified (1 source) Hepatic fibrosis, unspecified; Translations: [Hepatic fibrosis, unspecified] Onset: 5 Past or Other Problems Problem Classification Problem Date Documented Da te Episodic/Chronic Contraceptive and procreative management (1 source) Tubal ligation status Onset: 06-20-2014 06-20-2014 Episodic Disorders of teeth and jaw (20 sources) Periodontal disease; Translations: [Periodontal disease, unspecified] Onset: 01-07-2019 01-07-2019 Episodic Other connective tissue disease (20 sources) Fibromyalgia; Translations: [Fibromyalgia] Onset: 10-01-2015 10-01-2015 Episodic Other connective tissue disease (20 sources) Adhesive capsulitis of left shoulder; Translations: [Adhesive capsulitis of left shoulder] Onset: 10-23-2017 10-23-2017 Episodic Other connective tissue disease (20 sources) Impingement syndrome of left shoulder region; Translations: [Impingement syndrome of left shoulder] Onset: 10-23-2017 Resolved: 05-30-2020 02-01-2019 Episodic Other connective tissue disease (1 source) Adhesive capsulitis of shoulder Onset: 10-23-2017 02-01-2019 Episodic Other connective tissue disease (1 source) Other affections of shoulder region, not elsewhere classified Onset: 10-23-2017 02-01-2019 Episodic Other connective tissue disease (1 source) Myalgia and myositis, unspecified Onset: 10-01-2015 02-01-2019 Episodic Other connective tissue disease (1 source) Fibromyalgia; Translations: [Fibromyalgia] Onset: 10-01-2015 Episodic Other gastrointestinal disorders (20 sources) History of bypass of stomach; Translations: [Bariatric surgery status] Onset: 05-19-2018 05-19-2018 Episodic Other gastrointestinal disorders (20 sources) Constipation; Translations: [Constipation, unspecified] Onset: 05-19-2018 05-19-2018 Episodic Other gastrointestinal disorders (20 sources) Heartburn; Translations: [Heartburn] Onset: 03-12-2023 03-12-2023 Episodic Other gastrointestinal disorders (1 source) Constipation, unspecified Onset: 05-19-2018 02-01-2019 Episodic Other gastrointestinal disorders (1 source) Bariatric surgery status Onset: 05-19-2018 02-01-2019 Episodic Other gastrointestinal disorders (1 source) Bariatric surgery status; Translations: [H/O gastric bypass] Onset: 05-19-2018 Episodic Other injuries and conditions due to external causes (20 sources) Injury of shoulder region; Translations: [Unspecified injury of shoulder and upper arm, unspecified arm, initial encounter] Onset: 02-10-2018 Resolved: 05-30-2020 02-01-2019 Episodic Other injuries and conditions due to external causes (1 source) Shoulder and upper arm injury Onset: 02-10-2018 02-01-2019 Episodic Other nervous system disorders (20 sources) Abnormal gait; Translations: [Unsteadiness on feet] Onset: 12-11-2017 12-11-2017 Episodic Other nervous system disorders (1 source) Abnormality of gait Onset: 12-11-2017 02-01-2019 Episodic Other non-epithelial cancer of skin (20 sources) Malignant neoplasm of skin; Translations: [Unspecified malignant neoplasm of skin, unspecified] Onset: 03-08-2021 03-08-2021 Episodic Other non-traumatic joint disorders (5 sources) Shoulder pain; Translations: [Pain in left shoulder] Onset: 10-22-2017 02-01-2019 Episodic Other non-traumatic joint disorders (20 sources) Pain in left shoulder; Translations: [Pain in joint, shoulder region] Onset: 10-22-2017 Resolved: 05-30-2020 Episodic Other non-traumatic joint disorders (1 source) Pain in joint, shoulder region Onset: 10-22-2017 02-01-2019 Episodic Other screening for suspected conditions (not mental disorders or infectious disease) (20 sources) Patient encounter status; Translations: [Encounter for screening for malignant neoplasm of colon] Onset: 03-08-2021 Resolved: 04-07-2023 03-08-2021 Episodic Screening and history of mental health and substance abuse codes (20 sources) Ex-smoker; Translations: [Personal history of nicotine dependence] Onset: 03-08-2021 03-08-2021 Episodic Unclassified (20 sources) Parkinsonism; Translations: [Parkinsonism] Onset: 12-05-2022 Resolved: 12-05-2022 12-05-2022 Chronic Results Test Name Value Interpretation Reference Range Facility ED MED ADMINISTRATION DETAIL on 09-03-2024 ED MED ADMINISTRATION DETAIL Network Architect Manager Medication Administration Record [address] [address] [id number] 09/02/2024 Patient: INÉS SHANKS Sex: Female : 1965 Age: 58y MEASUREMENTS: Wt: 74.8 kg, Ht/Abrahan: 68.0 in, BMI: 25.09 ALLERGIES: No known drug allergies Medication Ordered Medication Administration Date/Time 1 of 1 Normal [facility] ED NURSES CLINICAL NOTEon ED NURSES CLINICAL NOTE Nurse Narrative Nurse Clinical Narrative [place] [id number] [place] [address] [id number] 09/02/2024 19:25:00 Patient: INÉS SHANKS Sex: Female : 1965 Age: 58y Disposition: Discharge to Home Disposition Decision Time: 23:01 09/02/2024 Departure Time: 23:35 09/02/2024 TRIAGE Arrived by private vehicle. Historian: (spouse, patient and family). Accompanied by spouse. ( Pt arrives to ER via private vehicle and is moved from car to room via wheelchair. Pt fell at home at approximately 18:30 and her head punched through the drywall in the bathroom. Pt denies loss of consciousness. Family member states that the pt fell on Thursday and struck the back of her head. On thursday the pt did lose consciousness and had a laceration repaired with 7 jonathan to the vertex of her head. Pt family states that the Pt had a CT scan at [facility] ER on Thursday and it came back negative.). Triage time: 19:30 09/02/2024. Chief Complaint: FALL. Lost balance; fell onto hard surface while standing. Landed on head. (Pt fell in bathroom from standing height. Pt fell backward and the back of her head punched through the drywall. Negative LOC. No vomiting or nausea, no dizziness at this time.). Occurred at home. Occurred 18:30 09/02/2024. The patient has had altered mental status, neck pain and trouble walking. No loss of consciousness. No dizziness, extremity pain, back pain, limited ROM present or difficulty breathing. Not currently taking anticoagulation therapy. Pre-hospital notification of patient arrival was not received. Treatment SOLE LEVELER: None. 1 of 5 Nurse Narrative SEPSIS SCREEN: NEGATIVE. SIRS criteria negative. No possible sources of infection. -- 20:16 09/02/24 EDT Miguel Ángel Armstrong E.M.T.-P. 19:51 09/02/24. BP: 138/98 MAP: 111. HR: 76. RR: 18. O2 saturation: 96% Temperature: 97.8 F. Pain level now 5/10. Describes the pain as pain. Abrupt in onset. -- 20:09/02/24 EDT Luis Alberto WaynePChristy Acuity: LEVEL 2. 20:09/02/24. -- 20:09/02/24 EDT Berny Glass R.N. Measurements: 20:09/02/24 Wt: 74.8 kg, Ht/Abrahan: 68.0 in, BMI: 25.09 -- 20:09/02/24 EDT Leydi Wayne-P. Medications: gabapentin 600 mg tablet -- 20:09/02/24 EDT Leydi Wayne-P. cetirizine 10 mg tablet -- 20:09/02/24 EDT Leydi Wayne-PChristy clonazepam 1 mg tablet -- 20:09/02/24 EDT Leydi Wayne-P. prochlorperazine maleate 10 mg tablet -- 20:09/02/24 EDT Leydi Wayne-P. ondansetron HCl 4 mg tablet -- 20:09/02/24 EDT Leydi Wayne-P. gabapentin 300 mg capsule -- 20:09/02/24 EDT Leydi Wayne-P. lisinopril 5 mg tablet -- 20:09/02/24 EDT Leydi Wayne-P. metformin ER 500 mg tablet,extended release 24 hr -- 20:09/02/24 EDT Leydi Wayne-PChristy metoprolol succinate ER 25 mg tablet,extended release 24 hr -- 20:09/02/24 EDT Leydi Wayne-P. [place] Thyroid 60 mg tablet -- 20:09/02/24 EDT Leydi Wayne-PChristy pantoprazole 40 mg tablet,delayed release -- 20:09/02/24 EDT Miguel Ángel Armstrong E.M.T.-P. FreeStyle Lancets 28 gauge -- 20:09/02/24 EDT Luis Alberto WaynePChristy carbidopa 25 mg-levodopa 100 mg tablet -- 20:09/02/24 EDT Luis Alberto WayneP. bupropion HCl SR 200 mg tablet,12 hr sustained-release -- 20:09/02/24 EDT Luis Alberto WaynePChristy rosuvastatin 5 mg tablet -- 20:09/02/24 EDT Luis Alberto WaynePChristy topiramate 50 mg tablet -- 20:09/02/24 EDT Miguel Ángel Armstrong E.M.T.-P. FreeStyle Lite Strips -- 20:09/02/24 EDT Miguel Ángel Armstrong E.M.T.-P. FreeStyle Lite Meter kit -- 20:09/02/24 EDT Miguel Ángel Armstrong E.M.T.-P. FeroSul 325 mg (65 mg iron) tablet -- 20:09/02/24 EDT Miguel Ángel Armstrong E.M.T.-P. fenofibrate 54 mg tablet -- 20:09/02/24 EDT Miguel Ángel Armstrong E.M.T.-P. lamotrigine 200 mg disintegrating tablet -- 20:09/02/24 EDT Miguel Ángel Armstrong E.M.T.-P. Trintellix 20 mg tablet -- 20:09/02/24 EDT Miguel Ángel Armstrong E.M.T.-P. Ozempic 0.25 mg or 0.5 mg (2 mg/3 mL) subcutaneous pen injector -- 20:09/02/24 EDT Miguel Ángel Armstrong E.M.T.-P. GET[employer] F[employer]ER Thyroid 60 mg tablet -- 20:09/02/24 EDT Luis Alberto WaynePChristy 2 of 5 Nurse Narrative Allergies: no known drug allergies -- 20:09/02/24 EDT Miguel Ángel Armstrong E.M.T.-P. Problems: Depression: Active -- 20:25 EDT Miguel Ángel Armstrong E.M.T.-P. Anxiety disorder -- 20:06 09/02/24 EDT Miguel Ángel Armstrong E.M.T.-P. Essential tremor: Active -- 20:06 09/02/24 EDT Miguel Ángel Armstrong E.M.T.-P. Migraine Headache -- 20:09/02/24 EDT Miguel Ángel Armstrong E.M.T.-P. Diabetes Mellitus: Active -- 20:07 09/02/24 EDT Miguel Ángel Armstrong E.M.T.-P. Peripheral Neuropathy: Active -- 20:07 09/02/24 EDT Miguel Ángel Armstrong E.M.T.-P. Degenerative Disc Disease -- 20:09/02/24 EDT Miguel Ángel Armstrong E.M.T.-P. Unspecified heart condition. (Family states that the Pt has a heart condition that causes her chest to (more content not included)... Normal [facility] ED ORDER SHEET (CPOE ONLY)on 09-03-2024 ED ORDER SHEET (CPOE ONLY) Order Sheet Order Sheet [address] [place] [address] [id number] 09/02/2024 Patient: INÉS SHANKS Sex: Female : 1965 Age: 58y MEASUREMENTS: Wt: 74.8 kg, Ht/Abrahan: 68.0 in, BMI: 25.09 ALLERGIES: No known drug allergies MEDICATION/IV/DRIP/FLUID ORDERS Order Description Priority Entered Acknowledged Completed LAB ORDERS Order Description Priority Entered Acknowledged Collected Completed CBC w Diff Stat Stat 20:09/02/2024 20:09/02/2024 20:19 09/02/2024 Xavi Myers R.N. Seth Lapp, R.N. BNP Stat Stat 20:09/02/2024 20:09/02/2024 20:19 09/02/2024 Xavi Myers R.N. Seth Lapp, R.N. CMP Stat Stat 20:09/02/2024 20:01 09/02/2024 20:19 09/02/2024 Xavi Myers, Jairo Glass, R.N. EKG - ED Stat Stat 20:09/02/2024 20:01 09/02/2024 20:17 09/02/2024 Xavi Myers, Jairo Glass, R.N. Troponin-I Stat Stat 20:09/02/2024 20:01 09/02/2024 20:19 09/02/2024 1 of 3 Order Sheet Xavi Myers, Jairo Glass, R.NChristy DIAGNOSTIC STUDY ORDERS Order Description Priority Entered Acknowledged Completed CT Brain wo Cont Stat Stat 20:01 09/02/2024 20:02 21:23 Casandra Kelley D.O. 09/02/2024 09/02/2024 Berny Glass, Jairo Glass, R.N. Order Comments: 20:01 09/02/2024: Status: Not . Casandra Kelley D.O. Reason for Study: Head Injury CT C-Spine wo Cont Stat Stat 20:09/02/2024 20:02 21:23 Casandra Kelley D.O. 09/02/2024 09/02/2024 Jairo Santoyo, R.N. Order Comments: 20:09/02/2024: Status: Not . Casandra Kelley D.O. Reason for Study: Trauma/Injury STAFF ORDERS Order Description Priority Entered Acknowledged Collected Completed Motor Coach Supervisor 20:09/02/2024 20:01 09/02/2024 20:19 09/02/2024 Xavi Myers, Jairo Glass, R.N. Vital signs every 15 20:01 09/02/2024 20:01 09/02/2024 20:19 09/02/2024 minutes Xavi Myers, Jairo Glass, R.N. Repeat EKG in 45 Min 20:09/02/2024 20:01 09/02/2024 20:19 09/02/2024 Xavi Myers R.N. Seth Lapp, R.N. IV Saline Lock 20:01 09/02/2024 20:01 09/02/2024 20:19 09/02/2024 Xavi Myers R.N. Seth Lapp, R.N. 2 of 3 Order Sheet [Electronically signed by Casandra Kelley D.O. (09/03/2024 04:43 EDT)] 3 of 3 Normal [facility] ED PHYSICIAN CLINICAL REPORT on 09-03-2024 ED PHYSICIAN CLINICAL REPORT Narrative Physician Clinical Narrative [address] [address] [id number] 09/02/2024 19:25:00 Patient: INÉS SHANKS Sex: Female : 1965 Age: 58y Disposition: Discharge to Home Disposition Decision Time: 23:01 09/02/2024 Departure Time: 23:35 09/02/2024 Measurements Wt: 74.8 kg, Ht/Abrahan: 68.0 in, BMI: 25.09 Initial Vital Sign Measured Time BP MAP HR RR O2Sat ETCO2 Temp Pain GCS RTS 19:26 09/02/2024 138/98 103 80 Time Seen: 19:44 09/02/2024. Arrived- By private vehicle. Historian- patient. Independent historian- family. HISTORY OF PRESENT ILLNESS Chief Complaint: INJURY TO HEAD and INJURY TO NECK. The injury occurred just prior to arrival. Occurred at home and home. REVIEW OF SYSTEMS EYES: No loss of vision. CVS: No chest pain. GI: No nausea or vomiting. EARS: No hearing loss. NEUROLOGICAL: No numbness or weakness. SKIN: No laceration. RESPIRATORY: No difficulty breathing. : No bladder dysfunction. Status: Not . PAST HISTORY 1 of 10 Narrative See nurses notes. Anxiety disorder Degenerative Disc Disease Depression: [Active] Diabetes Mellitus: [Active] Essential tremor: [Active] Migraine Headache Peripheral Neuropathy: [Active] Unspecified heart condition: (Family states that the Pt has a heart condition that causes her chest to get tight when she is stressed.) Surgeries: Abdominoplasty Ablation of spinal nerves Medications: [place] Thyroid 60 mg tablet bupropion HCl SR 200 mg tablet,12 hr sustained-release carbidopa 25 mg-levodopa 100 mg tablet cetirizine 10 mg tablet clonazepam 1 mg tablet fenofibrate 54 mg tablet FeroSul 325 mg (65 mg iron) tablet FreeStyle Lancets 28 gauge FreeStyle Lite Meter kit FreeStyle Lite Strips gabapentin 300 mg capsule gabapentin 600 mg tablet lamotrigine 200 mg disintegrating tablet lisinopril 5 mg tablet metformin ER 500 mg tablet,extended release 24 hr metoprolol succinate ER 25 mg tablet,extended release 24 hr GETTER FILLER Thyroid 60 mg tablet ondansetron HCl 4 mg tablet Ozempic 0.25 mg or 0.5 mg (2 mg/3 mL) subcutaneous pen injector pantoprazole 40 mg tablet,delayed release prochlorperazine maleate 10 mg tablet rosuvastatin 5 mg tablet 2 of 10 Narrative topiramate 50 mg tablet Trintellix 20 mg tablet Allergies: no known drug allergies SOCIAL HISTORY Never smoker. No alcohol use or drug use. ADDITIONAL NOTES The nursing notes have been reviewed. PHYSICAL EXAM Appearance: Alert. No acute distress. Head: Vertex: moderate tenderness and mild swelling (Old stapled laceration noted. Was stapled at [facility] last Thursday). No laceration. Eyes: Pupils equal, round and reactive to light. EOM intact. ENT: No dental injury. Neck: Vertebral tenderness. CVS: Heart sounds normal. Pulses normal. Respiratory: Painless inspiration. Breath sounds normal. Chest nontender. Abdomen: Soft and nontender. No organomegaly. Back: No tenderness. ROM normal. Skin: Skin intact. Skin warm and dry. Extremities: Normal inspection. Pelvis stable. Extremities atraumatic. Neuro: The patient is disoriented to time and place (Family at the bedside states this is her baseline mental status.). LABS, X-RAYS, AND EKG 12-LEAD EKG: EKG time: 20:09/02/2024. Normal sinus rhythm. Rate: 77. RBBB. Non-specific ST segment / T wave abnormalities. The study has been interpreted contemporaneously by me. The EKG appears to be a good tracing. Interpretation time: :09/02/2024. CT C-Spine: No acute findings. (no acute fracture of the cervical spine. There is no prevertebral soft tissue swelling to suggest an occult fracture. Old straightening of the normal cervical lordosis consider likely to relate to positioning in her muscle spasm. Otherwise no traumatic malalignment. There is no anterolisthesis or retro 3 of 10 Narrative listhesis at any level. Mild degenerative disc disease without significant disc bulge canal stenosis or neural foraminal narrowing.). The study was interpreted by the radiologist. Interpretation time: 21:09/02/2024. CT Head: (No acute intracranial injury. Soft tissue injury involving the left posterior scalp. The skin jonathan related to the prior injury are noted father posteriorly towards the midline near to the vertex. No skull fracture. No acute intracranial hemorrhage. No abnormal mass or fluid collection. No mass effect or shift of the midline structures. Mild to moderate ventricular dilatation. Mastoid air cells middle ear cavities clear. Chronic small-vessel ischemic changes.). Head CT performed without contrast. The study was interpreted by the radiologist. Interpretation time: 21:29 09/02/2024. Laboratory Tests: CBC + DIFF Final MARIXA: 09/02/2024 20:18:00 EDT MsgRcvd: 09/02/2024 20:51 EDT Lab Test Resul (more content not included)... Normal [facility] ED [facility] 09-03-2024 ED [place] [address] [place] [address] [phone] 09/02/2024 Patient: INÉS SHANKS Sex: Female : 1965 Age: 58y Item Professional Category Description Facility Code Code Quantity Fee Total Nurse/E/M EMERGENCY 470630 1 $0.00 $0.00 DEPARTMENT VISIT MODERATE SEVERITY (79479-28) Grand Total $0.00 Providers Casandra Kelley D.O. Chief Complaint INJURY TO HEAD and INJURY TO NECK. Principal Diagnosis Minor closed head injury. No loss of consciousness. No concussion or skull fracture. Cervical strain. Fall on the same level by stumbling. 1 of 2 [facility] ICD-10 Codes S06.890A: Other specified intracranial injury without loss of consciousness, initial encounter S16.1xxA: Strain of muscle, fascia and tendon at neck level, initial encounter W01.0XXA: Fall on same level from slipping, tripping and stumbling without subsequent striking against object, initial encounter 2 of 2 Normal [facility] ED VISIT SUMMARYon ED VISIT SUMMARY Visit Overview Visit Overview [place] [address] [facility] [place] [address] [phone] 09/02/2024 Patient: INÉS SHANKS Sex: Female : 1965 Age: 58y 09/03/2024 04:43 AM EDT ED Arrival:19:25 09/02/2024 EDT Status:not Recent Travel:no Language:eng Adv Directive: Isolation Status: Ethnicity:N Fall Risk:risk Infectious Disease Exposure:no Measurements:5'8 / 172.7 Self-Harm Status:risk Sepsis Screen:negative cm 165.0 lb / 74.8 kg 1 of 5 Visit Overview Chief Complaint:fell onto hard surface, Landed on head, lost balance, while standing, (18:30 09/02/2024), (Pt arrives to ER via private vehicle and is moved from car to room via wheelchair. Pt fell at home at approximately 18:30 and her head punched through the drywall in the bathroom. Pt denies loss of consciousness. Family member states that the pt fell on Thursday and struck the back of her head. On thursday the pt did lose consciousness and had a laceration repaired with 7 jonathan to the vertex of her head. Pt family states that the Pt had a CT scan at [facility] ER on Thursday and it came back negative.), and (Pt fell in bathroom from standing height. Pt fell backward and the back of her head punched through the drywall. Negative LOC. No vomiting or nausea, no dizziness at this time.) ALLERGIES No Known Drug Allergies HOME MEDICATIONS [place] Thyroid 60 mg tablet bupropion HCl SR 200 mg tablet,12 hr sustained-release carbidopa 25 mg-levodopa 100 mg tablet cetirizine 10 mg tablet clonazepam 1 mg tablet fenofibrate 54 mg tablet 2 of 5 Visit Overview FeroSul 325 mg (65 mg iron) tablet FreeStyle Lancets 28 gauge FreeStyle Lite Meter kit FreeStyle Lite Strips gabapentin 300 mg capsule gabapentin 600 mg tablet lamotrigine 200 mg disintegrating tablet lisinopril 5 mg tablet metformin ER 500 mg tablet,extended release 24 hr metoprolol succinate ER 25 mg tablet,extended release 24 hr [employer]ER Thyroid 60 mg tablet ondansetron HCl 4 mg tablet Ozempic 0.25 mg or 0.5 mg (2 mg/3 mL) subcutaneous pen injector pantoprazole 40 mg tablet,delayed release prochlorperazine maleate 10 mg tablet rosuvastatin 5 mg tablet topiramate 50 mg tablet Trintellix 20 mg tablet PAST MEDICAL HISTORY / PROBLEMS Anxiety disorder Degenerative Disc Disease Depression: Active Diabetes Mellitus: Active Essential tremor: Active Migraine Headache Peripheral Neuropathy: Active See nurses notes PAST SURGICAL HISTORY Abdominoplasty Ablation of spinal nerves SOCIAL HISTORY Smoking status: No Alcohol use: No 3 of 5 Visit Overview Drug use: No ED COURSE MEDICATIONS GIVEN IN EMERGENCY DEPARTMENT IV SITE INFORMATION INTAKE OUTPUT REASSESMENT (most recent) 19:59 09/02/24. GENERAL / NEURO / PSYCH: The patient is disoriented to place, time and situation. ( pt fell thursday, sutures in back of head. Pt fell off toilet, punched a hole through drywall with her head. Family states was loopy prior to fall, required increased assistance. A.). HEENT: Head. VITAL SIGNS First Vitals Last Vitals Temp 19:26 09/02/24 Temp 23:26 09/02/24 BP 19:26 09/02/24 138/98 BP 23:26 09/02/24 HR 19:26 09/02/24 80 HR 23:26 09/02/24 76 RR 19:26 09/02/24 RR 23:26 09/02/24 O2 Sat 19:26 09/02/24 O2 Sat 23:26 09/02/24 96% Pain 19:26 09/02/24 Pain 23:26 09/02/24 ETCO2 19:26 09/02/24 ETCO2 23:26 09/02/24 GCS 19:26 09/02/24 GCS 23:26 09/02/24 RTS 19:26 09/02/24 RTS 23:26 09/02/24 PROCEDURES NURSING INTERVENTIONS LABS / STUDIES LABS / STUDIES ORDERED BNP CBC w Diff CMP 4 of [address] Brain wo Cont CT C-Spine wo Cont EKG - ED Troponin-I CLINICAL IMPRESSION CERVICAL STRAIN FALL ON THE SAME LEVEL BY STUMBLING MINOR CLOSED HEAD INJURY. NO LOSS OF CONSCIOUSNESS. NO CONCUSSION OR SKULL FRACTURE 5 of 5 Normal [facility] ED VITALS FLOW SHEETon 09-03 ED VITALS FLOW SHEET Vitals Vital Sign Flow Sheet [facility] [address] [place] [address] [phone] 09/02/2024 Patient: INÉS SHANKS Sex: Female : 1965 Age: 58y Measurements Wt: 74.8 kg, Ht/Abrahan: 68.0 in, BMI: 25.09 Measured Time BP MAP HR RR O2Sat ETCO2 Temp Pain GCS RTS 23:26 09/02/2024 76 96% 23:21 09/02/2024 77 95% 23:16 09/02/2024 79 97% 23:14 09/02/2024 144/79 104 77 23:11 09/02/2024 78 96% 23:06 09/02/2024 78 95% 23:01 09/02/2024 78 96% 22:59 09/02/2024 146/79 101 77 22:46 09/02/2024 78 97% 22:41 09/02/2024 79 95% 22:40 09/02/2024 143/87 105 78 22:36 09/02/2024 72 95% 22:31 09/02/2024 72 94% 22:26 09/02/2024 71 95% 22:25 09/02/2024 133/80 96 71 1 of 3 Vitals Measured Time BP MAP HR RR O2Sat ETCO2 Temp Pain GCS RTS 22:21 09/02/2024 70 95% 22:16 09/02/2024 71 94% 22:11 09/02/2024 74 95% 22:10 09/02/2024 137/83 104 73 22:06 09/02/2024 75 94% 22:01 09/02/2024 76 95% 21:56 09/02/2024 74 95% 21:55 09/02/2024 138/77 103 72 21:51 09/02/2024 77 94% 21:46 09/02/2024 78 95% 21:41 09/02/2024 76 95% 21:40 09/02/2024 147/84 120 75 21:36 09/02/2024 79 96% 21:31 09/02/2024 77 95% 21:26 09/02/2024 79 94% 21:25 09/02/2024 150/89 112 78 21:21 09/02/2024 75 95% 21:16 09/02/2024 76 95% 21:11 09/02/2024 79 95% 21:10 09/02/2024 154/87 109 75 21:06 09/02/2024 77 95% 20:46 09/02/2024 77 94% 20:44 09/02/2024 136/83 101 79 20:41 09/02/2024 77 96% 20:36 09/02/2024 75 95% 2 of 3 Vitals Measured Time BP MAP HR RR O2Sat ETCO2 Temp Pain GCS RTS 20:31 09/02/2024 78 95% 20:25 09/02/2024 79 95% 20:20 09/02/2024 77 94% 19:51 09/02/2024 138/98 111 76 18 96% 97.8 F 5 19:45 09/02/2024 76 96% 19:40 09/02/2024 78 97% 19:40 09/02/2024 142/87 103 75 19:35 09/02/2024 76 96% 19:30 09/02/2024 78 97% 19:26 09/02/2024 138/98 103 80 3 of 3 Normal [facility] CBC + DIFFon 09-02-2024 Baso # 0.01 x10EE3/UL Normal 0.00 - 0.10 [facility] Comment on above: Performed By: #### 2 [id number] #### [place] [address] Basophils/100 WBC (Bld) 0.2 % Normal 0.0 - 2.0 [facility] Comment on above: Performed By: #### 2 47146 #### [place] [id number] CBC + DIFF Normal [facility] Comment on above: Result Comment: CBC- COMPLETE BLOOD COUNT Performed By: #### 2 84714 #### [facility],[address] [place] [address] EO # 0.03 x10EE3/UL Normal 0.00 - 0.50 [facility] Comment on above: Performed By: #### 2 42875 #### [facility],[address] [place] [address] Eosinophils/100 WBC (Bld) 0.4 % Normal 0.0 - 7.0 [facility] Comment on above: Performed By: #### 2 77524 #### [facility],[address] [place] [address] Erythrocyte distribution width (RBC) [Ratio] 13.4 % Normal 12.0 - 15.6 [facility] Comment on above: Performed By: #### 2 57692 #### [facility],[address] [place] [address] Hematocrit (Bld) [Volume fraction] 33.7 % Low 34.0 - 46.0 [facility] Comment on above: Performed By: #### 2 23758 #### [facility],[address] [place] [address] Hemoglobin (Bld) [Mass/Vol] 12.1 g/dL Normal 12.0 - 16.0 [facility] Comment on above: Performed By: #### 2 45788 #### [facility],[address] [place] [address] Lymph # 1.42 x10EE3/UL Normal 0.80 - 2.80 [facility] Comment on above: Performed By: #### 2 38446 #### [facility],[address] [place] [address] Lymphocytes/100 WBC (Bld) 21.3 % Normal 20.0 - 45.0 [facility] Comment on above: Performed By: #### 2 45399 #### [facility],[address] [place] [address] MANUAL DIFF N/A Normal [facility] Comment on above: Performed By: #### 2 70711 #### [facility],[address] [place] [address] MCH (RBC) [Entitic mass] 31 pg Normal 27 - 33 [facility] Comment on above: Performed By: #### 2 70620 #### [facility],[address] [place] [address] MCHC 36 X10 3 Normal 32 - 36 [facility] Comment on above: Performed By: #### 2 61915 #### [facility],[address] [place] [address] MCV (RBC) [Entitic vol] 87 fL Normal 80 - 99 [facility] Comment on above: Performed By: #### 2 20424 #### [facility],[address] [place] [address] [place] # 0.29 x10EE3/UL Normal 0.20 - 1.00 [facility] Comment on above: Performed By: #### 2 25193 #### [facility],[address] [place] [address] MONOS % 4.4 % Normal 0.0 - 10.0 [facility] Comment on above: Performed By: #### 2 88221 #### [facility],[address] [place] [address] Morphology Heri (Bld) [Interp] N/A Normal [facility] Comment on above: Performed By: #### 2 99129 #### [facility],[address] [place] [address] Neut # 4.90 x10EE3/UL Normal 1.50 - 7.10 [facility] Comment on above: Performed By: #### 2 22927 #### [facility],[address] [place], [place] [id number] Neutrophils/100 WBC (Bld) 73.6 % Normal 46.0 - 76.0 [facility] Comment on above: Performed By: #### 2 99485 #### [facility],[address] [place] [address] 93240 PLATELET 190 x10EE3/UL Normal 150 - 450 [facility] Comment on above: Performed By: #### 2 80068 #### [facility],[address] [place] [address] Platelet mean volume (Bld) [Entitic vol] 8.2 fL Normal 6.6 - 10.5 [facility] Comment on above: Result Comment: AUTO MATED DIFFERENTIAL Performed By: #### 2 02044 #### [facility],[address] [place], [place] [id number] RBC 3.87 x 10EE6/UL Low 4.10 - 5.30 [facility] Comment on above: Performed By: #### 2 15449 #### [facility],[address] [place] [address] 87629 WBC 6.7 x 10EE3/UL Normal 4.5 - 10.8 [facility] Comment on above: Performed By: #### 2 78553 #### [facility],[address] [place] [address] 02076 CMP with eGFRon 09-02-2024 AGE 58 years Normal [facility] Comment on above: Performed By: #### 2 81825 #### [facility],[address] [place] [address] 92797 Albumin [Mass/Vol] 3.3 g/dL Low 3.4 - 5.0 [facility] Comment on above: Performed By: #### 2 50369 #### [facility],[address] [place] [address] 98377 Albumin/Globulin [Mass ratio] 0.9 {ratio} Normal 0.9 - 1.6 [facility] Comment on above: Performed By: #### 2 18255 #### [facility],[address] [place] [address] 13953 ALK PHOS 31 U/L Low 46 - 116 [facility] Comment on above: Performed By: #### 2 86080 #### [facility],[address] [place] [address] 84262 ALT [Catalytic activity/Vol] 8 U/L Low 16 - 63 [facility] Comment on above: Performed By: #### 2 82839 #### [facility],[address] [place] [address] 89230 Anion gap [Moles/Vol] 16 mmol/L Normal 10 - 20 [facility] Comment on above: Performed By: #### 2 36846 #### [facility],[address] [place] [address] 84421 AST [Catalytic activity/Vol] 13 U/L Normal 13 - 39 [facility] Comment on above: Performed By: #### 2 42899 #### [facility],[address] [place] [address] 19675 B/C RATIO 13 ratio Normal 0 - 30 [facility] Comment on above: Performed By: #### 2 23045 #### [facility],[address] [place] [address] 38902 Bilirubin [Mass/Vol] 0.4 mg/dL Normal 0.2 - 1.0 [facility] Comment on above: Performed By: #### 2 75872 #### [facility],[address] [place] [address] 50672 Calcium [Mass/Vol] 9.4 mg/dL Normal 8.5 - 10.1 [facility] Comment on above: Performed By: #### 2 33827 #### [facility],[address] [place] [address] 38994 Chloride [Moles/Vol] 109 mmol/L High 98 - 107 [facility] Comment on above: Performed By: #### 2 71294 #### [facility],[address] [place] [address] 03454 CMP with eGFR Normal [facility] Comment on above: Result Comment: COMP REHENSIVE METABOLIC PANEL Performed By: #### 2 68145 #### [facility],[address] [place] [address] 25410 CO2 [Moles/Vol] 23.0 mmol/L Normal 21.0 - 32.0 [facility] Comment on above: Performed By: #### 2 20537 #### [facility],[address] [place] [address] 98430 Creatinine [Mass/Vol] 1.42 mg/dL High 0.55 - 1.02 [facility] Comment on above: Performed By: #### 2 26556 #### [facility],[address] [place] [address] 45918 eGFR 38 ML/MINUTE Low 60 - 999 [facility] Comment on above: Performed By: #### 2 07428 #### [facility],[address] [place] [address] 98003 eGFR(AA) 46 ML/MINUTE Low 60 - 999 [facility] Comment on above: Result Comment: ACCO RDING TO THE NATIONAL KIDNEY DISEASE EDUCATION PROGRAM(NKDE), A NORMAL eGFR IS A VALUE GREATER THAN OR EQUAL TO 60 ML/MIN/1.73 SQ METERS. CHRONIC KIDNEY DISEASE: <60mL/MIN/1.73 SQ METERS KIDNEY FAILURE: <15mL/MIN/1.73 SQ METERS THIS TEST SHOULD ONLY BE USED FOR PATIENTS 18 YEARS OF AGE AND OLDER. Performed By: #### 2 26741 #### [facility],[address] [place] [address] 99866 Globulin (S) [Mass/Vol] 3.5 g/dL Normal 1.5 - 3.8 [facility] Comment on above: Performed By: #### 2 66621 #### [facility],[address] [place] [address] 17339 Glucose [Mass/Vol] 92 mg/dL Normal 74 - 106 [facility] Comment on above: Performed By: #### 2 17307 #### [facility],[address] [place] [address] 69790 Potassium [Moles/Vol] 4.4 mmol/L Normal 3.5 - 5.1 [facility] Comment on above: Performed By: #### 2 96828 #### [facility],[address] [place] [address] 01788 Protein [Mass/Vol] 6.8 g/dL Normal 6.4 - 8.2 [facility] Comment on above: Performed By: #### 2 13035 #### [facility],[address] [place] [address] 11018 Sodium [Moles/Vol] 144 mmol/L Normal 136 - 145 [facility] Comment on above: Performed By: #### 2 46387 #### [facility],[address] [place] [address] 26113 Urea nitrogen [Mass/Vol] 19 mg/dL High 7 - 18 [facility] Comment on above: Performed By: #### 2 84099 #### [facility],[address] [place] [address] BRAIN W/O CONTRASTon - CT BRAIN W/O CONTRAST [place] [address] Patient: INÉS SHANKS Phone#: : 1965 Age: 58 Gender: F Pt. Type: ER Account: [id number] Location: 052 Ordering: CASANDRA KELLEY Exam Date: 09/02/2024/20:18 Family Phys: Charge Code: [id number] Physician: [place] Order #: [id number] Dose#: 52.3 PROCEDURE: CT BRAIN WITHOUT CONTRAST COMPARISON: None. INDICATIONS: Fall. TECHNIQUE: CT images were obtained without contrast material. All CT scans at this facility use dose modulation, iterative reconstruction, and/or weight based dosing when appropriate to reduce radiation dose to as low as reasonably achievable. IV CONTRAST: No IV contrast used,ml TOTAL DOSE: 52.3 CTDIvol(mGy) FINDINGS: CEREBRUM: Excessive generalized atrophy is present for a patient of this age. CEREBELLUM: No edema, hemorrhage, mass, acute infarction, or inappropriate atrophy. BRAINSTEM: No edema, hemorrhage, mass, acute infarction, or inappropriate atrophy. CSF SPACES: Ventricles, cisterns, and sulci are appropriate for age. No hydrocephalus, subarachnoid hemorrhage, or mass. There is mild ventricular dilatation considering patient age. Consider possibility normal pressure hydrocephalus. SKULL: No mass or other significant visible lesion. Left posterior parietal scalp hematoma. Surgical clips are present. SINUSES: Limited views demonstrate no significant mucosal thickening or fluid. ORBITS: Limited views are unremarkable. OTHER: Negative. CONCLUSION: 1. There is no evidence of acute intracranial abnormality. 2. Atrophic changes are present in greater than expected for patient age. Consider possibility of normal pressure hydrocephalus. Dictated by: Padmini Shaw MD on 09/03/2024 at 8:50 Approved by: Padmini Shaw MD on 09/03/2024 at 8:53 Normal [facility] CT CERVICAL W/O CONTRASTon 0 09-02-2024 CT CERVICAL W/O CONTRAST [place] [address] Patient: INÉS SHANKS Phone#: : 1965 Age: 58 Gender: F Pt. Type: ER Account: [id number] Location: 052 Ordering: CASANDRA KELLEY Exam Date: 09/02/2024/20:56 Family Phys: Charge Code: [id number] Physician: [place] Order #: [id number] Dose#: 10.1 PROCEDURE: CT CERVICAL WITHOUT CONTRAST COMPARISON: None. INDICATIONS: Fall. TECHNIQUE: Multi-planar CT images were created without intravenous contrast. All CT scans at this facility use dose modulation, iterative reconstruction, and/or weight-based dosing when appropriate to reduce radiation dose to as low as reasonably achievable. IV CONTRAST: No IV contrast used,ml TOTAL DOSE: 10.1 CTDIvol(mGy) FINDINGS: CRANIOCERVICAL AREA: Normal foramen magnum with no Chiari malformation. PARASPINAL AREA: Normal with no visible mass. BONES: No fracture, pars defect, or osseous lesion. There is straightening of the normal cervical lordosis. CERVICAL DISC LEVELS: C2-C3: No significant disc/facet abnormality, spinal stenosis, or foraminal stenosis. C3-C4: No significant disc/facet abnormality, spinal stenosis, or foraminal stenosis. C4-C5: Anterior osteophytes are present at the C4-5 level. Disc spaces maintained. The foramina are patent. C5-C6: No significant disc/facet abnormality, spinal stenosis, or foraminal stenosis. C6-C7: There is mild disc space narrowing. The foramina and spinal canal are patent. C7-T1: No significant disc/facet abnormality, spinal stenosis, or foraminal stenosis. CONCLUSION: 1. Mild degenerative changes of the spine are present. 2. There is no evidence of acute fracture or subluxation. Dictated by: Padmini Shaw MD on 09/03/2024 at 8:53 Continued Report - Page 2 of 2 Patient: INÉS SHANKS Phone#: : 1965 Age: 58 Gender: F Pt. Type: ER Account: [id number] Location: [facility] Ordering: CASANDRA KELLEY Exam Date: 09/02/2024/20:56 Family Phys: Charge Code: [id number] Physician: [place] Order #: [id number] Dose#: 10.1 Approved by: Padmini Shaw MD on 09/03/2024 at 8:54 Normal [facility] NT-proBNPon 09-02-2024 Natriuretic peptide B (Bld) [Mass/Vol] 1095 pg/mL High 0 - 125 [facility] Comment on above: Performed By: #### 2 70786 #### [facility],[address] [place] [address] TROPONINon 09-02-2024 HS TROPONIN 9.5 pg/mL Normal 0.0 - 51.4 [facility] Comment on above: Performed By: #### 2 62221 ####[facility],[address] [facility] [address] Brain/Head without Contrasto n 08-29-2024 Brain/Head without Contrast [facility] [address] [place], [place] [address] Brain/Head without Contrast MR#: [id number] Acct: [id number] Name: INÉS SHANKS JOANN Rep #: [id number] : 1965 F 58 From: Flaco Fox DO PCP: Dr. Santhosh Holden MD Status: PRE ER Study: Brain/Head without Contrast Date of Exam: 12/15 Exam# [id number] Ordering Dr: Sachin Walton DO PROCEDURE: BRAIN/HEAD WITHOUT CONTRAST 08/29/2024 REASON FOR EXAM: TRAUMA TECHNIQUE: Head CT without intravenous contrast. Coronal and Sagittal reconstruction series were provided. One or more dose reduction techniques were used (e.g., Automated exposure control, adjustment of the mA and/or kV according to patient size, use of iterative reconstruction technique. RADIATION DOSE SUMMARY: CTDlvol: 44.99, 24.84 and 29.38 mGy DLP: 1935.73 mGycm COMPARISON: CT sinus study same day FINDINGS: Brain: No intra-axial or extra-axial hemorrhage no mass, mass effect or midline shift periventricular and deep white matter hypodensities indicating small-vessel ischemic disease CSF Spaces: PE Sinuses/Mastoids: Predominantly clear. Bones: No fracture. No acute process. CT/Brain/Head without Contrast IMPRESSION: No acute process. Age-related involution and chronic small-vessel ischemic changes . Reading Location: [facility] CC: Dr. Sachin Walton DO; Dr. Santhosh Holden MD Purchasing Director: Signed Normal [facility] Emergency Department Summary on 08-29-2024 Emergency Department Summary [facility] Medical Records Department [address] [place] [address] Emergency Department Summary 08/29/24 MR#: [id number] Acct: [id number] Name: INÉS SHANKS JOANN Rep #: [id number] : 1965 58 From: Sachin Walton DO PCP: Dr. Santhosh Holden MD Status:REG ER Location: ED HPI HPI - Fall History of Present Illness Chief Complaint: Fall Narrative Narrative: Chief complaint and HPI: Close head injury after mechanical fall. 66-year-old female with past medical history of DM2, DJD, memory issues presents for evaluation of closed head injury after mechanical fall. History taken by daughter as well as patient. Patient states she had just gotten up and was making breakfast for her granddaughter when she lost her balance and fell. Daughter states that she heard the fall. States she was unconscious for several seconds. She hit the back of her head on the dining room table pillar. Denies blood thinners. States she is supposed to use her walker at baseline but was not using it. Denies any fever, chills, shortness of breath, chest pain abdominal pain, nausea, vomiting, dysuria. Denies any numbness or tingling. Denies any back pain or extremity pain. Not up-to-date on tetanus. Review of systems: See HPI Medications: As listed on the chart Allergies: As listed on the chart PFSH: Per chart Vital signs: As listed on the chart. Reviewed. Physical exam: Gen: A O x3, NAD Head: Normocephalic, 2 cm laceration to the posterior scalp Eyes: No sclera icterus, conjunctiva clear, PERRL, EOMI ENT: TMs clear BL, moist mucous membranes, no swelling/lacerations/blood in the mouth or the nares, No nasal septal hematoma, mild facial tenderness over the left zygomatic arch-no obvious signs of trauma Neck: Trachea midline, No JVD, no midline spinal tenderness, mild tenderness to palpation of the right paraspinal musculature CV: RRR, no murmurs, no chest wall TTP Resp: Lungs CTA BL, no w/r/c GI: Abd soft, non-distended, non-tender, no r/r/g Musc: Full ROM, no deformity, no spinal TTP, no molly step-offs Skin: Warm, dry, intact Neuro: Alert, oriented, grossly intact, sensation intact, GCS 15 Psych: Cooperative, appropriate mood and affect [facility] Medical History Powers's esophagus Diabetes DJD (degenerative joint disease) Dyslipidemia GERD (gastroesophageal reflux disease) Heart disease HTN (hypertension) Morbid obesity Home Medications ???Medication ???Instructions ???Recorded ???Last Taken ???Type bupropion HCl 200 mg tablet,12 hr 200 mg PO BID depression/anxiety 08/23/15 08/28/24 History sustained-release (Wellbutrin SR) gabapentin 600 mg tablet 600 mg PO TIDCM nerve pain 6 08/28/24 History pantoprazole 40 mg tablet,delayed 80 mg PO DAILY acid reflux 08/28/24 History release thyroid (pork) 60 mg tablet 60 mg PO BID thyroid 08/23/1511/14 History ([place] Thyroid) nitroglycerin 0.4 mg sublingual 0.4 mg sublingual Q5M PRN Chest 10/31/17 Rx tablet Pain #30 tabs lisinopril 5 mg tablet 5 mg PO DAILY 10/31/17 08/28/24 Hi story tizanidine 4 mg capsule (Zanaflex) 4 mg PO PRN PRN Muscle Spasm 02/07 Unknown History carbidopa 25 mg-levodopa 100 mg 1 tab PO TID 08/29/24 08/28/24 His tory tablet cetirizine 10 mg tablet 10 mg PO DAILY 08/29/24 08/28/24 H istory clonazepam 1 mg tablet 1 mg PO TID PRN 08/29/24 08/28/24 History fenofibrate 54 mg tablet 54 mg PO DAILY 08/29/24 08/28/24 H istory ferrous sulfate 325 mg (65 mg 325 mg PO BID 08/29/24 08/28/24 Hi story iron) tablet (FeroSul) gabapentin 300 mg capsule 300 mg PO TID 08/29/24 08/28/24 Hi story lamotrigine 200 mg disintegrating 400 mg PO QHS 08/29/24 08/28/24 H istory tablet metformin 500 mg tablet,extended 1,500 mg PO DAILY 08/29/24 5 History release 24 hr metoprolol succinate 25 mg 25 mg PO DAILY 08/29/24 08/28/24 H istory tablet,extended release 24 hr ondansetron HCl 4 mg tablet 4 mg PO DAILY PRN nausea and 08/29 Unknown History vomiting prochlorperazine maleate 10 mg 10 mg PO BID PRN PRN migraine 12/15 Unknown History tablet rosuvastatin 5 mg tablet 5 mg PO QHS 08/29/24 08/28/24 Hist ory semaglutide 0.25 mg or 0.5 mg (2 0.5 mg subcut QWEEK 08/29/2408/28 History mg/3 mL) subcutaneous pen injector (Ozempic) topiramate 50 mg tablet 50 mg PO BID 08/29/24 08/28/24 His tory vortioxetine 20 mg tablet 20 mg PO DAILY 08/29/24 08/28/24 H istory (Trintellix) Allergy/AdvReac Type Severity Reaction Status Date / Time animal dander Allergy difficulty Verified 08/29/24 09:19 breathing citric acid AdvReac mouth sores Verified 08/29/24 09:19 mold AdvReac Nausea Verified 08/29/24 09:19 zolpide (more content not included)... Normal [facility] Sinus/Facial Boneon 08-30-19 25 Sinus/Facial Bone [facility] Imaging Services [address] [place], [place] [address] Sinus/Facial Bone MR#: [id number] Acct: [id number] Name: INÉS SHANKS Rep #: [id number] : 1965 F 58 From: Asif angulo MD PCP: Dr. Santhosh Holden MD Status: PRE ER Study: Sinus/Facial Bone Date of Exam: 08/29/24 Exam# [id number] Ordering Dr: Sachin Walton DO PROCEDURE: SINUS/FACIAL BONE REASON FOR EXAM: TRAUMA TECHNIQUE: CT of the paranasal sinuses without contrast. Coronal and Sagittal reconstruction series were provided. One or more dose reduction techniques were used (e.g., Automated exposure control, adjustment of the mA and/or kV according to patient size, use of iterative reconstruction technique). Dose report: CTDI L volume 29.38 mGy. DLP: 606.22 COMPARISON: None FINDINGS: Frontal: Unremarkable Ethmoid: Unremarkable Sphenoid: Unremarkable Maxillary: Unremarkable Turbinates: Hypertrophy of the inferior turbinates bilaterally. Nasal Septum: Midline. Mastoids/Middle Ears: Unremarkable. CT/Sinus/Facial Bone IMPRESSION: No acute abnormality is seen. Reading Location: [place] [address] CC: Dr. Sachin Walton DO; Dr. Santhosh Holden MD Purchasing Director: Signed Normal [facility] Spine Cervical without Contr ason 08-29-[address] without Cont[address] [facility] Imaging Services [address] [facility] [place] [place] [id number] Spine Cervical without Contras MR#: [id number] Acct: [id number] Name: INÉS SHANKS Rep #: [id number] : 1965 F 58 From: Asif angulo MD PCP: Dr. Santhosh Holden MD Status: PRE ER Study: Spine Cervical without Contras Date of Exam: 0 08/29/24 Exam# [id number] Ordering Dr: Sachin Walton DO PROCEDURE: SPINE CERVICAL WITHOUT CONTRAS 08/29/2024 REASON FOR EXAM: TRAUMA TECHNIQUE: Cervical spine CT without contrast. Coronal and Sagittal reconstruction series were provided. One or more dose reduction techniques were used (e.g., Automated exposure control, adjustment of the mA and/or kV according to patient size, use of iterative reconstruction technique RADIATION DOSE SUMMARY: CTDlvol: 24.84 mGy DLP: 516.53 mGycm COMPARISON: None FINDINGS: Alignment: Straightening of the normal cervical lordosis. Vertebrae: Anterior spondylosis at the C4-C5 level. Soft Tissues: No prevertebral soft tissue swelling. Other: Scarring at the right lung apex. C1-2: Unremarkable. C2-3: Disc space is well-maintained. Facet joint osteoarthritis more pronounced on the right side. No significant stenosis seen. C3-4: Disc space is well-maintained. Facet joint osteoarthritis and hypertrophy on the right side. No significant stenosis seen. C4-5: Mild degree of disc space narrowing. Anterior spondylosis. No evidence of spinal or neural foraminal stenosis. C5-6: Mild degree of disc space narrowing. No evidence of spinal stenosis. No evidence of neural foraminal stenosis. C6-7: Disc space is well-maintained. No acute abnormality is seen. C7-T1: Unremarkable. CT/Spine Cervical without Contras IMPRESSION: DEGENERATIVE CHANGES OF THE CERVICAL SPINE. NO EVIDENCE OF SIGNIFICANT OSSEOUS CENTRAL CANAL OR NEURAL FORAMINAL STENOSIS. Reading Location: [facility] CC: Dr. Sachin Walton DO; Dr. Santhosh Holden MD Purchasing Director: Signed Normal [facility] CNOVon 06-22-2024 CNOV Office Visit ([facility] ) INÉS SHANKS ([id number]) 1965 F Date Time Provider Department 06/22/24 1:00 PM JOVANNA PRINCE [facility] During your visit today, we recorded the following information about you: Pulse Blood pressure Weight Height 65/minute 128/82 81.8 kg 1.702 m Jovanna Prince MD 06/22/2024 1:28 PM Signed FOLLOW UP NOTE Subjective Inés Shanks is a 58 year old female who presents for follow up. CC: Tremor, headache Summary of prior care: 07/2022 right-handed female with a history of PTSD, bipolar disorder, fibromyalgia, migraine, and tremor amongst other conditions who presents for evaluation of tremor. 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 Complicated presentation primarily due to the large amount of neuropsychiatrically active medications she is on. Wellbutrin, Austedo, and Vyvanse can all contribute to tremor. Suggested tapering off Austedo for now, consider other changes in the future. For migraine, will do medrol dose ryne + compazine bridge treatment. Afterwards can take compazine. Hesitant to add additional prescription medications due to polypharmacy. Will try migraine supplements B2 and Mg. 10/2022 retry levodopa 100 TID for mixed tremor. 06/2023 fine to continue levodopa, unclear how much is FT vs organic, low concern degenerative etiology to memory symptoms, start B2. 12/2023 no changes, try to lower tremor causing meds if possible. HPI Current Issues - Off lurasidone in the last month - Not sure seeing any difference in tremor however - Mood is mostly OK, does feel a little different without lurasidone - Off Vyvanse as well - Takes cd/ld 1 pill three times, thinks it is helpful - Migraines worse with the weather - Getting around 1 / week right now lasting all day - Taking B2 - Feels like memory is worsening - Psychiatrist is Dr. Spencer Headache description: - Aura: Notes possibly seeing things hard to explain - Onset: More in the morning - Location: Typically one side or the other, uncommonly back of head - Pain: Pressure, sharp - Frequency: 1/week - Duration: All day - A/w: (+)photophobia / (+)phonophobia / (+)nausea / (+/-)osmophobia / (-)autonomic sx - Positional?: n/a - Improves with: Sleep - Triggers: Certain smells - Family Hx: Mom Current preventive: Gabapentin for fibromyalgia / neuropathy, LTG for mood, metoprolol for heart, B2 Current abortive: Compazine / excedrin (helpful) Previous preventives: Never been prescribed something specific for it, meds she has been on in the past include verapamil, metoprolol, propranolol. Previous abortives: n/a Current meds: - Wellbutrin 200 mg BID - Trintellix 20 mg daily - Lamotrigine 200 mg BID - Clonazepam 1 mg TID - Gabapentin 900 mg TID (FM, PN) - Metoprolol ER 25 mg daily - Cd/ld 25/100 one pill TID Current Outpatient Medications Medication Sig Dispense Refill prochlorperazine (COMPAZINE) 10 mg tablet Take 1 tablet by mouth two times a day as needed (migraine). 20 tablet 4 ferrous sulfate 325 mg (65 mg iron) tablet Take 1 tablet by mouth two times a day with meals. 180 tablet 1 ondansetron (ZOFRAN) 4 mg tablet Take 1 tablet by mouth once daily as needed. 10 tablet 1 blood sugar diagnostic (FREESTYLE LITE STRIPS) test strip Test blood sugar(s) once times daily. Dx: E11.40 25 Strip 3 Blood-Glucose Meter (FREESTYLE LITE METER) monitoring kit Freestyle LITE Meter Kit -Test blood sugars one time daily. DX E11.40 1 Each 0 Lancets Test blood sugar(s) one time daily. Dx: Other DM Code E11.40 Insulin: No 100 Each 11 semaglutide (OZEMPIC) 0.25 mg or 0.5 mg (2 mg/3 mL) pen Inject 0.5 mg subcutaneously one time a week. 3 mL 11 metFORMIN ER (GLUCOPHAGE XR) 500 mg 24 hr tablet Take 3 tablets by mouth daily with breakfast. 270 tablet 1 gabapentin (NEURONTIN) 300 mg capsule Take 1 capsule by mouth three times a day for 90 days. 270 capsule 0 metoprolol succinate ER (TOPROL XL) 25 mg 24 hr tablet Take 1 tablet by mouth once daily. 30 tablet 5 gabapentin (NEURONTIN) 600 mg tablet Take 1 tablet by mouth three times a day for 180 days. [address] (PROTONIX) 40 mg tablet Take 1 tablet by mouth two times a day. 180 tablet 1 rosuvastatin (CRESTOR) 5 mg tablet Take 1 tablet by mouth daily at bedtime. 90 tablet 1 Fenofibrate (LOFIBRA) 54 mg tablet Take 1 tablet by mouth once daily 90 tablet 3 carbidopa-levodopa (SINEMET) 25-100 mg per tablet Take 1 tablet by mouth three times a day. 270 tablet 1 thyroid, pork, (ARMOUR THYROID) 60 mg tablet Take 1 tablet by mouth two times a day. 60 tablet 5 Cetirizine (ZYRTEC) 10 mg cap Take 1 capsule by mouth once daily. 90 capsule 3 lisinopril (ZESTRIL) 5 mg tablet Take 1 tablet by mouth once daily. 90 tablet 3 loratadine (CLARITIN) 10 mg tablet Take 10 mg by mouth once daily. ca (more content not included)... Normal [facility] CNOVon 06-03-2024 CNOV Office Visit ([facility] ) INÉS SHANKS ([id number]) 1965 F Date Time Provider Department 06/03/24 1:00 PM DRU SAHU During your visit today, we recorded the following information about you: Hollie Diana LPN 06/04/2024 9:16 AM Signed AMB ROOMING INTAKE FLOWSHEET DATA Pain Pain Level: 1 Pain Location: Toe Description: Sore Frequency: Continuous Intervention/Comfort measure: Reposition, Relaxation Patient presents with: Right Foot - Established Patient, Follow Up, Pain, Fracture Left Great Toe - Diabetic Foot Ulcer, Established Patient ROXANE Berger Matthew 06/03/2024 1:23 PM Signed Fracture: continue with surgical shoe. Repeat xray in 3 -4 weeks Hammertoe right 2nd toe: obtain xray in 1 month. Can discuss options Ulceration of left great toe: continue with antibiotic cream. Avoid shoes that rub. Trichloroacetic acid (TCA) has been applied to the plantar warts/porokeratosis. Rinse off in 12 hours and keep clean and dry. May bathe and shower normally starting the day after treatment The area is expected to burn and blister in about 1-3 days, if painful soak in plain, cool water. If blistered, you may drain the blister with a clean, STERILIZED needle and apply OTC antibiotic ointment and band aid to area. Repeat 2-3 times daily as needed. Tylenol or Aleve as needed for pain, provided you have no allergies to either of these. Keep scheduled follow up appointment to have wart(s) re-evaluated and/or additional treatments. Dru Sahu 06/04/2024 9:16 AM Signed FOLLOW UP PODIATRIC OFFICE VISIT Chief Complaint: This 58 year old who presents for follow up:fracture of right hallux and ulceration of left hallux. Patient presents to clinic for follow-up fracture of right hallux. She has no pain. She has a surgical shoe but she is not wearing. She presents to clinic in [facility]. She reports to walking barefoot at home. She is here for follow-up ulceration of left hallux. She is currently applying topical antbiotic to the toe. She denies any redness or drainage. She has multiple warts to right foot. No pain. No other complaints. PAIN EVALUATION 06/03/2024 1305 Pain Level: 1 Pain Location: Toe Description: Sore Frequency: Continuous Intervention/Comfort measure: Reposition;Relaxation Hemoglobin A1C Date Value Ref Range Status 05/20/2024 5.0 4.3 - 5.6 % Final Comment: [place] [employer] guidelines indicate that patients with HgbA1c in the range 5.7-6.4% are at increased risk for development of diabetes, and intervention by lifestyle modification may be beneficial. HgbA1c greater or equal to 6.5% is considered diagnostic of diabetes. PCP: Santhosh Holden MD PAST MEDICAL HISTORY Diagnosis Date Anxiety Powers's esophagus Bipolar 1 disorder ([facility]) Dr. Orozco, psychiatry Chronic headaches Coronary-myocardial bridge DDD (degenerative disc disease) Depression 01/05/2015 Essential tremor TK tremor Fibromyalgia GERD (gastroesophageal reflux disease) HTN (hypertension) Hyperlipidemia Hypothyroid Liver fibrosis Mild CAD 08/22/2019 Neuropathy Non-melanoma skin cancer 03/08/2021 Obstructive sleep apnea PTSD (post-traumatic stress disorder) PVD (peripheral vascular disease) ([facility]) Sciatica Shoulder injury Type II or unspecified type diabetes mellitus without mention of complication, not stated as uncontrolled Current Outpatient Medications Medication Sig blood sugar diagnostic (FREESTYLE LITE STRIPS) test strip Test blood sugar(s) once times daily. Dx: E11.40 Blood-Glucose Meter (FREESTYLE LITE METER) monitoring kit Freestyle LITE Meter Kit -Test blood sugars one time daily. DX E11.40 Lancets Test blood sugar(s) one time daily. Dx: Other DM Code E11.40 Insulin: No ondansetron (ZOFRAN) 4 mg tablet Take 1 tablet by mouth once daily as needed. semaglutide (OZEMPIC) 0.25 mg or 0.5 mg (2 mg/3 mL) pen Inject 0.5 mg subcutaneously one time a week. metFORMIN ER (GLUCOPHAGE XR) 500 mg 24 hr tablet Take 3 tablets by mouth daily with breakfast. gabapentin (NEURONTIN) 300 mg capsule Take 1 capsule by mouth three times a day for 90 days. metoprolol succinate ER (TOPROL XL) 25 mg 24 hr tablet Take 1 tablet by mouth once daily. gabapentin (NEURONTIN) 600 mg tablet Take 1 tablet by mouth three times a day for [address] (PROTONIX) 40 mg tablet Take 1 tablet by mouth two times a day. rosuvastatin (CRESTOR) 5 mg tablet Take 1 tablet by mouth daily at bedtime. Fenofibrate (LOFIBRA) 54 mg tablet Take 1 tablet by mouth once daily carbidopa-levodopa (SINEMET) 25-100 mg per tablet Take 1 tablet by mouth three times a day. thyroid, pork, (ARMOUR THYROID) 60 mg tablet Take 1 tablet by mouth two times a day. ferrous sulfate 325 mg (65 mg iron) tablet Take 1 tablet by mouth two times a day with m (more content not included)... Normal [facility] US KIDNEY/BLADDERon 06-04-19 25 US KIDNEY/BLADDER * * *Final Report* * * DATE OF EXAM: Jun 03 2024 2:12PM U [id number] - US KIDNEY/BLADDER / PROCEDURE REASON: Renal insufficiency * * * * Physician Interpretation * * * * EXAMINATION: RENAL ULTRASOUND CLINICAL HISTORY: Renal insufficiency TECHNIQUE: Sonography of the kidneys and urinary bladder was performed. Images were obtained and stored in a permanent archive and interpreted remotely. MQ: UR_1 COMPARISON: None RESULT: Right Kidney: -Renal length: 9.7 cm -Parenchyma: Normal parenchymal echogenicity. Normal parenchymal thickness. -Collecting system: No hydronephrosis. -Calculus: No echogenic, shadowing calculus. -Lesion: None. Left Kidney: -Renal length: 10.6 cm -Parenchyma: Normal parenchymal echogenicity. Normal parenchymal thickness. -Collecting system: No hydronephrosis. -Calculus: No echogenic, shadowing calculus. -Lesion: None. Bladder: Normal sonographic appearance. Prevoid bladder volume measures 123 mL. Postvoid bladder volume measures 18 mL. IMPRESSION: 1. No hydronephrosis. 2. Pre and postvoid bladder volumes as described. Purchasing Director: PSCB Transcribe Date/Time: Jun 06 2024 4:06P Dictated by : CHANTELL LIZ MD This examination was interpreted and the report reviewed and electronically signed by: CHANTELL LIZ MD on Jun 06 2024 4:09PM EST [id number] Normal [facility] XR TOE 3V AP/LAT/OBL RTon XR TOE 3V AP/LAT/OBL RT * * *Final Report* * * DATE OF EXAM: Jun 03 2024 12:55PM [id number] - XR TOE 3V AP/LAT/OBL RT / PROCEDURE REASON: Closed nondisplaced fracture of phalanx of right great toe, unspecified phalanx, * * * * Physician Interpretation * * * * PROCEDURE: Right great toe INDICATION: Closed nondisplaced fracture of phalanx of right great toe, unspecified phalanx, initial encounter .PT STATES RIGHT GREAT TOE FOLLOW UP XR TECHNIQUE: XR TOE 3V AP/LAT/OBL RT COMPARISON: 05/13/2024 FINDINGS: Stable, well aligned fracture of the tuft of the great toe with evidence for interval healing. Joint spaces are maintained. Chronic deformity of the 2nd proximal phalanx is again evident. IMPRESSION: Healing great toe tuft fracture Purchasing Director: MEERA Transcribe Date/Time: Jun 08 2024 10:05A Dictated by : JOHNNY MONTES MD This examination was interpreted and the report reviewed and electronically signed by: JOHNNY MONTES MD on Jun 08 2024 10:06AM EST [id number] Normal [facility] IN[facility]S SHANKS ([id number]) 1965 F Date Time Provider Department 05/23/24 [facility] HOLDEN [facility] During your visit today, we recorded the following information about you: Santhosh Holden MD 05/23/2024 9:39 AM Signed Liver is good. Her vit d is slightly low. Would take vit d otc 1000 units a day. Her kidney function is slightly reduced. Make sure drinking adequate fluid. Is slightly anemic. Looks like it might possibly be related to her kidneys Recheck labs in two weeks. Including ifobt. Do renal us. Pina Springer LPN 05/23/2024 11:43 AM Signed Message all circuits are busy will need to try again later. Pina Springer LPN 05/24/2024 2:26 PM Signed Voicemail not set up. Suzanne Mathews MA 05/25/2024 10:07 AM Signed Spoke with patient and informed of results. Transferred to scheduling for ultrasound. Suzanne Mathews MA Allergies As of Date: 05/23/2024 Noted Allergy Reaction CAT HAIR STANDARDIZED ALLERGENIC *12/20/2015 9 - Itching Comments: Eyes get really red, if cat is too close, can't breathe CATS 12/20/2015 9 - Itching Comments: Eyes get really red, if cat is too close, can't breathe CITRIC ACID 11/05/2016 5 - Intolerance MOLD SPORES 12/20/2015 14 - Other: See Comments Comments: Flu like symptoms ZOLPIDEM 10/29/2022 14 - Other: See Comments Date Reviewed: 05/20/2024 Reviewed by: Pina Springer LPN - Fully Assessed Reason for Visit: Results [95] Primary Visit Diagnosis:Renal insufficiency [N28.9] Other Visit Diagnosis:Anemia, unspecified type [D64.9] Order(s):IMMUNOCHEMICAL FECAL OCCULT BLOOD TEST [SQIFOBT] Order #: [id number]. #:[id number] COMPLETE BLOOD COUNT AND DIFFERENTIAL [SQCBCDIF] Order #: [id number] FUTURE FERRITIN [SQFERR] Order #: [id number] FUTURE BASIC METABOLIC PANEL [SQBMP] Order #: [id number] FUTURE URINALYSIS, WITH MICROSCOPIC [SQUAWMIC] Order #: [id number] FUTURE US KIDNEY/BLADDER [[id number]] Order #: [id number] FUTURE Prescriptions as of 05/25/2024 - blood sugar diagnostic (FREESTYLE LITE STRIPS) test strip Test blood sugar(s) once times daily. Dx: E11.40 - Blood-Glucose Meter (FREESTYLE LITE METER) monitoring kit Freestyle LITE Meter Kit -Test blood sugars one time daily. DX E11.40 - Lancets Test blood sugar(s) one time daily. Dx: Other DM Code E11.40 Insulin: No - ondansetron (ZOFRAN) 4 mg tablet Take 1 tablet by mouth once daily as needed. - semaglutide (OZEMPIC) 0.25 mg or 0.5 mg (2 mg/3 mL) pen Inject 0.5 mg subcutaneously one time a week. - metFORMIN ER (GLUCOPHAGE XR) 500 mg 24 hr tablet Take 3 tablets by mouth daily with breakfast. - gabapentin (NEURONTIN) 300 mg capsule Take 1 capsule by mouth three times a day for 90 days. - metoprolol succinate ER (TOPROL XL) 25 mg 24 hr tablet Take 1 tablet by mouth once daily. - gabapentin (NEURONTIN) 600 mg tablet Take 1 tablet by mouth three times a day for 180 days. - pantoprazole DR (PROTONIX) 40 mg tablet Take 1 tablet by mouth two times a day. - rosuvastatin (CRESTOR) 5 mg tablet Take 1 tablet by mouth daily at bedtime. - Fenofibrate (LOFIBRA) 54 mg tablet Take 1 tablet by mouth once daily - carbidopa-levodopa (SINEMET) 25-100 mg per tablet Take 1 tablet by mouth three times a day. - thyroid, pork, (ARMOUR THYROID) 60 mg tablet Take 1 tablet by mouth two times a day. - ferrous sulfate 325 mg (65 mg iron) tablet Take 1 tablet by mouth two times a day with meals. - prochlorperazine (COMPAZINE) 10 mg tablet Take 1 tablet by mouth two times a day as needed (migraine). - Cetirizine (ZYRTEC) 10 mg cap Take 1 capsule by mouth once daily. - lisinopril (ZESTRIL) 5 mg tablet Take 1 tablet by mouth once daily. - lurasidone (LATUDA) 20 mg tablet take 1 tablet by mouth once daily with supper - loratadine (CLARITIN) 10 mg tablet Take 10 mg by mouth once daily. - carboxymethylcellulose (REFRESH CELLUVISC) 1 % ophthalmic solution Use 1 Drop in both eyes daily at bedtime. - lamoTRIgine (LAMICTAL) 200 mg tablet Take 1 tablet by mouth two times a day. - nitroglycerin sublingual (NITROQUICK) 0.3 mg SL tablet Dissolve 1 tablet under the tongue every 5 minutes as needed. - PEG 400-propylene glycol (SYSTANE ULTRA) 0.4-0.3 % ophthalmic solution Use 1 Drop in both eyes twice daily. - Aluminum Hydrox-Magnesium Carb (GAVISCON EXTRA STRENGTH) 254-237.5 mg/5 mL susp Take 15 mL by mouth at bedtime as needed. - acetaminophen (TYLENOL EXTRA STRENGTH) 500 mg tablet Take 2 tablets by mouth every 8 hours as needed for Pain. - COMPOUNDED PRESCRIPTION Initiate AutoPAP @ 10-20 cm of water with humidification mask (per patient preference) optional chin strap (if indicated) and lifetime supplies ([facility]) DX: KRZYSZTOF G47.33 - multivit with minerals/lutein (MULTIVITAMIN 50 PLUS ORAL) Take 1 tablet by mouth once daily. - COMPOUNDED PRESCRIPTION Diabetic shoes One (more content not included)... Normal [facility] 25-hydroxyvitamin D3 [Mass/Vol] 27.8 ng/mL Low 31.0-80.0 [facility] Comment on above: Order Comment: Speci men Type: BLOOD SPECIMENOrdering Facility: [facility] Address: [address] [place] [address] Performed By: #### 1 989-3 ####[facility] [id number] [place] [address] [place] AFP [facility] 05-20-2024 AFP [Mass/Vol] 1.99 ng/mL Normal <9.00 [facility] Comment on above: Order Comment: Speci men Type: BLOOD SPECIMENOrdering Facility: [facility] Address: [address] [place] [address] Result Comment: The Alpha-Fetoprotein test was performed using the Eduardo HOTEL Top-Level Domainel DxI immunoenzymatic assay. Results obtained with different assay methods or kits cannot be used interchangeably. Performed By: #### 1 834-1 ####[facility] [id number] [place] [address] [place] CBC W Auto Differential pane l (Bld)on 05-20-2024 Basophils (Bld) [#/Vol] 0.05 10*3/uL Normal <0.11 [facility] Comment on above: Order Comment: Speci men Type: BLOOD SPECIMENOrdering Facility: [facility] Address: [address] [place] [address] Performed By: #### 5 7021-8 ####[facility]ORATORYCLIA [id number] [address] [place] [facility] Basophils/100 WBC (Bld) 0.7 % Normal [facility] Comment on above: Order Comment: Speci men Type: BLOOD SPECIMENOrdering Facility: [facility] Address: [address] [place] [address] Performed By: #### 5 7021-8 ####[facility] LABORATORYCLIA [id number] [address] [place] [facility] Differential cell count method Nom (Bld) Auto Normal [facility] Comment on above: Order Comment: Speci men Type: BLOOD SPECIMENOrdering Facility: [facility] Address: [address] [place] [address] Performed By: #### 5 7021-8 ####[facility] LABORATORYCLIA [id number] [place] [address] [place] Eosinophils (Bld) [#/Vol] 0.04 10*3/uL Normal <0.46 [facility] Comment on above: Order Comment: Speci men Type: BLOOD SPECIMENOrdering Facility: [facility] Address: [address] [place] [address] Performed By: #### 5 7021-8 ####[facility]ATORYCLIA [id number] [address] [place] Eosinophils/100 WBC (Bld) 0.5 % Normal [facility] Comment on above: Order Comment: Speci men Type: BLOOD SPECIMENOrdering Facility: [facility] Address: [address] [place] [address] Performed By: #### 5 7021-8 ####[facility]ATORYCLIA [id number] [address] [place] Erythrocyte distribution width (RBC) [Ratio] 12.5 % Normal 11.5-15.0 [facility] Comment on above: Order Comment: Speci men Type: BLOOD SPECIMENOrdering Facility: [facility] Address: [address] [place] [address] Performed By: #### 5 7021-8 ####[facility] LABORATORYCLIA [id number] [address] [place] Hematocrit (Bld) [Volume fraction] 35.5 % Low 36.0-46.0 [facility] Comment on above: Order Comment: Speci men Type: BLOOD SPECIMENOrdering Facility: [facility] Address: [address] [place] [address] Performed By: #### 5 7021-8 ####[facility] LABORATORYCLIA [id number] [place] [address] [place] Hemoglobin (Bld) [Mass/Vol] 11.4 g/dL Low 11.5-15.5 [facility] Comment on above: Order Comment: Speci men Type: BLOOD SPECIMENOrdering Facility: [facility] Address: [address] [place] [address] Performed By: #### 5 7021-8 ####[facility] LABORATORYCLIA [id number] [place] [address] [place] Immature granulocytes (Bld) [#/Vol] 10*3/uL Normal <0.10 [facility] Comment on above: Order Comment: Speci men Type: BLOOD SPECIMENOrdering Facility: [facility] Address: [address] [place] [address] Performed By: #### 5 7021-8 ####[facility] LABORATORYCLIA [id number] [address] [place] Immature granulocytes/100 WBC (Bld) 0.3 % Normal [facility] Comment on above: Order Comment: Speci men Type: BLOOD SPECIMENOrdering Facility: [facility] Address: [address] [place] [address] Performed By: #### 5 7021-8 ####[facility] LABORATORYCLIA [id number] [place] [address] [place] Lymphocytes (Bld) [#/Vol] 3.03 10*3/uL Normal 1.00-4.00 [facility] Comment on above: Order Comment: Speci men Type: BLOOD SPECIMENOrdering Facility: [facility] Address: [address] [place] [address] Performed By: #### 5 7021-8 ####[facility]ORYCLIA [id number] [address] Lymphocytes/100 WBC (Bld) 41.6 % Normal [facility] Comment on above: Order Comment: Speci men Type: BLOOD SPECIMENOrdering Facility: [facility] Address: [address] [place] [address] Performed By: #### 5 7021-8 ####[facility] LABORATORYCLIA [id number] [address] [place] MCH (RBC) [Entitic mass] 28.1 pg Normal 26.0-34.0 [facility] Comment on above: Order Comment: Speci men Type: BLOOD SPECIMENOrdering Facility: [facility] Address: [address] [place] [address] Performed By: #### 5 7021-8 ####[facility] LABORATORYCLIA [id number] [address] [place] MCHC (RBC) [Mass/Vol] 32.1 g/dL Normal 30.5-36.0 [facility] Comment on above: Order Comment: Speci men Type: BLOOD SPECIMENOrdering Facility: [facility] Address: [address] [place] [address] Performed By: #### 5 7021-8 ####[facility] LABORATORYCLIA [id number] [address] [place] MCV (RBC) [Entitic vol] 87.7 fL Normal 80.0-100.0 [facility] Comment on above: Order Comment: Speci men Type: BLOOD SPECIMENOrdering Facility: [facility] Address: [address] [place] [address] Performed By: #### 5 7021-8 ####[facility]ORATORYCLIA [id number] [place] [address] [place] Monocytes (Bld) [#/Vol] 0.36 10*3/uL Normal <0.87 [facility] Comment on above: Order Comment: Speci men Type: BLOOD SPECIMENOrdering Facility: [facility] Address: [address] [place] [address] Performed By: #### 5 7021-8 ####[facility]ORYCLIA [id number] [address] [place] Monocytes/100 WBC (Bld) 4.9 % Normal [facility] Comment on above: Order Comment: Speci men Type: BLOOD SPECIMENOrdering Facility: [facility] Address: [address] [place] [address] Performed By: #### 5 7021-8 ####[facility] LABORATORYCLIA [id number] [address] [place] Neutrophils (Bld) [#/Vol] 3.79 10*3/uL Normal 1.45-7.50 [facility] Comment on above: Order Comment: Speci men Type: BLOOD SPECIMENOrdering Facility: [facility] Address: [address] [place] [address] Performed By: #### 5 7021-8 ####[facility]ORATORYCLIA [id number] [address] [place] Neutrophils/100 WBC (Bld) 52.0 % Normal [facility] Comment on above: Order Comment: Speci men Type: BLOOD SPECIMENOrdering Facility: [facility] Address: [address] [place] [address] Performed By: #### 5 7021-8 ####[facility]ATORYCLIA [id number] [place] [address] [place] Nucleated RBC (Bld) [#/Vol] 10*3/uL Normal <0.01 [facility] Comment on above: Order Comment: Speci men Type: BLOOD SPECIMENOrdering Facility: [facility] Address: [address] [place] [address] Performed By: #### 5 7021-8 ####[facility] LABORATORYCLIA [id number] [address] [place] Nucleated RBC/100 WBC (Bld) [Ratio] 0.0 /100 WBC Normal [facility] Comment on above: Order Comment: Speci men Type: BLOOD SPECIMENOrdering Facility: [facility] Address: [address] [place] [address] Performed By: #### 5 7021-8 ####[facility] LABORATORYCLIA [id number] [place] [address] [place] Platelet mean volume (Bld) [Entitic vol] 11.3 fL Normal 9.0-12.7 [facility] Comment on above: Order Comment: Speci men Type: BLOOD SPECIMENOrdering Facility: [facility] Address: [address] [place] [address] Performed By: #### 5 7021-8 ####[facility] LABORATORYCLIA [id number] [place] [address] [place] Platelets (Bld) [#/Vol] 223 10*3/uL Normal 150-400 [facility] Comment on above: Order Comment: Speci men Type: BLOOD SPECIMENOrdering Facility: [facility] Address: [address] [place] [address] Performed By: #### 5 7021-8 ####[facility] LABORATORYCLIA [id number] [place] [address] [place] RBC (Bld) [#/Vol] 4.05 10*6/uL Normal 3.90-5.20 [facility] Comment on above: Order Comment: Speci men Type: BLOOD SPECIMENOrdering Facility: [facility] Address: [address] [place] [address] Performed By: #### 5 7021-8 ####[facility] LABORATORYCLIA [id number] [place] [address] [place] WBC (Bld) [#/Vol] 7.29 10*3/uL Normal 3.70-11.00 [facility] Comment on above: Order Comment: Speci men Type: BLOOD SPECIMENOrdering Facility: [facility] Address: [address] [place] [address] Performed By: #### 5 7021-8 ####[facility] LABORATORYCLIA [id number] [place] [address] [place] [facility] CNOVon 05-20-2024 CNOV Office Visit (FAMPWS ) INÉS SHANKS ([id number]) 1965 F Date Time Provider Department 05/20/24 2:00 PM [facility] During your visit today, we recorded the following information about you: Pulse Blood pressure Weight 65/minute 120/62 81.6 kg Santhosh Holden MD 05/20/2024 3:22 PM Signed Patient presents with: 6 Month Exam HPI: Patient presents today for office visit for follow up. Diabetes: Still on the Ozempic. No GI side effects at this point. Just got a new glucometer to be able to test at home again. Has lost 67 lbs. Very pleased with her weight loss. Last A1c was great KRZYSZTOF: Does not use CPAP. Can't do home study has to go to sleep lab to do study. She knows she needs to get this set up. Notes that she does snore at night. HTN: Patient is compliant with meds Yes Monitors bp at home: No. Denies side effects: Yes. Chest pain: No. Dyspnea: No. Edema: No. Palpitations: No. Syncope: No. Headache: stable. Dizziness: No. Thyroid: Stable. Has had some hair loss. Barretts: Taking Protonix. States that symptoms controlled. Last egd 03/14 PSYCH:still seeing psych. Off of vyvanse. Doing well. Since last here, has seen podiatry, neurology, ent Has referral to see derm due to hair loss but suggested we check tsh given her weight loss. Has hx of gastric bypass. Has not had recent imaging of her fatty liver Had liver biopsy in the past Did shows fibrosis in the past. MEDICATIONS: Current Outpatient Medications Medication Sig blood sugar diagnostic (FREESTYLE LITE STRIPS) test strip Test blood sugar(s) once times daily. Dx: E11.40 Blood-Glucose Meter (FREESTYLE LITE METER) monitoring kit Freestyle LITE Meter Kit -Test blood sugars one time daily. DX E11.40 Lancets Test blood sugar(s) one time daily. Dx: Other DM Code E11.40 Insulin: No ondansetron (ZOFRAN) 4 mg tablet Take 1 tablet by mouth once daily as needed. semaglutide (OZEMPIC) 0.25 mg or 0.5 mg (2 mg/3 mL) pen Inject 0.5 mg subcutaneously one time a week. metFORMIN ER (GLUCOPHAGE XR) 500 mg 24 hr tablet Take 3 tablets by mouth daily with breakfast. gabapentin (NEURONTIN) 300 mg capsule Take 1 capsule by mouth three times a day for 90 days. metoprolol succinate ER (TOPROL XL) 25 mg 24 hr tablet Take 1 tablet by mouth once daily. gabapentin (NEURONTIN) 600 mg tablet Take 1 tablet by mouth three times a day for [address] (PROTONIX) 40 mg tablet Take 1 tablet by mouth two times a day. rosuvastatin (CRESTOR) 5 mg tablet Take 1 tablet by mouth daily at bedtime. Fenofibrate (LOFIBRA) 54 mg tablet Take 1 tablet by mouth once daily carbidopa-levodopa (SINEMET) 25-100 mg per tablet Take 1 tablet by mouth three times a day. thyroid, pork, (ARMOUR THYROID) 60 mg tablet Take 1 tablet by mouth two times a day. ferrous sulfate 325 mg (65 mg iron) tablet Take 1 tablet by mouth two times a day with meals. prochlorperazine (COMPAZINE) 10 mg tablet Take 1 tablet by mouth two times a day as needed (migraine). Cetirizine (ZYRTEC) 10 mg cap Take 1 capsule by mouth once daily. lisinopril (ZESTRIL) 5 mg tablet Take 1 tablet by mouth once daily. lurasidone (LATUDA) 20 mg tablet take 1 tablet by mouth once daily with supper loratadine (CLARITIN) 10 mg tablet Take 10 mg by mouth once daily. carboxymethylcellulose (REFRESH CELLUVISC) 1 % ophthalmic solution Use 1 Drop in both eyes daily at bedtime. lamoTRIgine (LAMICTAL) 200 mg tablet Take 1 tablet by mouth two times a day. nitroglycerin sublingual (NITROQUICK) 0.3 mg SL tablet Dissolve 1 tablet under the tongue every 5 minutes as needed. PEG 400-propylene glycol (SYSTANE ULTRA) 0.4-0.3 % ophthalmic solution Use 1 Drop in both eyes twice daily. VYVANSE 20 mg capsule 40 mg. Aluminum Hydrox-Magnesium Carb (GAVISCON EXTRA STRENGTH) 254-237.5 mg/5 mL susp Take 15 mL by mouth at bedtime as needed. acetaminophen (TYLENOL EXTRA STRENGTH) 500 mg tablet Take 2 tablets by mouth every 8 hours as needed for Pain. COMPOUNDED PRESCRIPTION Initiate AutoPAP @ 10-20 cm of water with humidification mask (per patient preference) optional chin strap (if indicated) and lifetime supplies ([facility]) DX: KRZYSZTOF G47.33 multivit with minerals/lutein (MULTIVITAMIN 50 PLUS ORAL) Take 1 tablet by mouth once daily. COMPOUNDED PRESCRIPTION Diabetic shoes One pair CPAP CPAP with humidification. Mask (per patient preference) optional chin strap (if indicated) , filters, tubing, humidifier and lifetime supplies. clonazePAM (KLONOPIN) 1 mg tablet 1 mg three times daily. vortioxetine (TRINTELLIX) 20 mg tablet Take 1 tablet by mouth once daily. aspirin 81 mg chewable tablet Take 1 tablet by mouth once daily. CPAP Please provide supplies. Mask per preference, tubing, filters, humidity. Lifetime Supplies. Dx: G47.33 COMPOUNDED PRESCRIPTION Lightweight wheel (more content not included)... Normal [facility] Comprehensive metabolic 2000 panelon 05-20-2024 Albumin [Mass/Vol] 3.8 g/dL Low 3.9-4.9 [facility] Comment on above: Order Comment: Speci men Type: BLOOD SPECIMENOrdering Facility: [facility] Address: [address] [place] [address] Performed By: #### 3 016-3, 60965-2, 69889-4 ####[facility] LABORATORYCLIA [id number] [place] [id number] [place] ALP [Catalytic activity/Vol] 49 U/L Normal 34-123 [facility] Comment on above: Order Comment: Speci men Type: BLOOD SPECIMENOrdering Facility: [facility] Address: [address] [place] [address] Performed By: #### 3 016-3, 68997-2, 67812-5 ####[facility] LABORATORYCLIA [id number] [place] [address] [place] ALT With P-5'-P [Catalytic activity/Vol] 11 U/L Normal 7-38 [facility] Comment on above: Order Comment: Speci men Type: BLOOD SPECIMENOrdering Facility: [facility] Address: [address] [place] [address] Performed By: #### 3 016-3, 59838-0, 66801-5 ####[facility] LABORATORYCLIA [id number] [place] [address] [place] Anion gap [Moles/Vol] 11 mmol/L Normal 8-15 [facility] Comment on above: Order Comment: Speci men Type: BLOOD SPECIMENOrdering Facility: [facility] Address: [address] [place] [address] Performed By: #### 3 016-3, 26852-1, 71489-6 ####[facility] LABORATORYCLIA [id number] [place] [address] [place] AST With P-5'-P [Catalytic activity/Vol] 19 U/L Normal 13-35 [facility] Comment on above: Order Comment: Speci men Type: BLOOD SPECIMENOrdering Facility: [facility] Address: [address] [place] [address] Performed By: #### 3 016-3, 72403-6, 08925-7 ####[facility] LABORATORYCLIA [id number] [place] [address] [place] Bilirubin [Mass/Vol] 0.2 mg/dL Normal 0.2-1.3 [facility] Comment on above: Order Comment: Speci men Type: BLOOD SPECIMENOrdering Facility: [facility] Address: [address] [place] [address] Performed By: #### 3 016-3, 76844-9, 58190-1 ####[facility]ORATORYCLIA [id number] [place] [address] [place] Calcium [Mass/Vol] 9.2 mg/dL Normal 8.5-10.2 [facility] Comment on above: Order Comment: Speci men Type: BLOOD SPECIMENOrdering Facility: [facility] Address: [address] [place] [address] Performed By: #### 3 016-3, , 81504-5 ####[facility]ORATORYCLIA [id number] [place] [address] [place] Chloride [Moles/Vol] 108 mmol/L High 98-107 [facility] Comment on above: Order Comment: Speci men Type: BLOOD SPECIMENOrdering Facility: [facility] Address: [address] [place] [address] Performed By: #### 3 016-3, , 70115-0 ####[facility]ATORYCLIA [id number] [place] [address] [place] CO2 [Moles/Vol] 27 mmol/L Normal 22-30 [facility] Comment on above: Order Comment: Speci men Type: BLOOD SPECIMENOrdering Facility: [facility] Address: [address] [place] [address] Performed By: #### 3 016-3, , 21108-3 ####[facility]ORATORYCLIA [id number] [place] [id number] [place] Creatinine [Mass/Vol] 1.15 mg/dL High 0.58-0.96 [facility] Comment on above: Order Comment: Speci men Type: BLOOD SPECIMENOrdering Facility: [facility] Address: [address] [place] [address] Performed By: #### 3 016-3, 59129-6, 90105-2 ####[facility]ATORYCLIA [id number] [place] [address] [place] Creatinine and Glomerular filtration rate.predicted panel (S/P/Bld) 55 mL/min/1.73m??? Low >=60 [facility] Comment on above: Order Comment: Henry johnson Type: BLOOD SPECIMENOrdering Facility: [facility] Address: [address] [place] [address] Result Comment: Devika mated Glomerular Filtration Rate (eGFR) is calculated using the 2020 CKD-EPI creatinine equation. This equation utilizes serum creatinine, sex, and age as parameters. The creatinine assay has traceable calibration to isotope dilution-mass spectrometry. Refer to KDIGO guidelines for clinical interpretation. In patients with unstable renal function, e.g. those with acute kidney injury, the eGFR may not accurately reflect actual GFR. Performed By: #### 3 016-3, 25604-0, 88962-7 ####[facility] CENTRALIA [id number] [place] [id number] [place] Glucose [Mass/Vol] 76 mg/dL Normal 74-99 [facility] Comment on above: Order Comment: Henry johnson Type: BLOOD SPECIMENOrdering Facility: [facility] Address: [address] [place] [address] Result Comment: The [place] Diabetes Association (ADA) provides guidance for cutoff values for fasting glucose and random glucose. The ADA defines fasting as no caloric intake for at least 8 hours. Fasting plasma glucose results between 100 to 125 mg/dL indicate increased risk for diabetes (prediabetes). Fasting plasma glucose results greater than or equal to 126 mg/dL meet the criteria for diagnosis of diabetes. In the absence of unequivocal hyperglycemia, results should be confirmed by repeat testing. In a patient with classic symptoms of hyperglycemia or hyperglycemic crisis, random plasma glucose results greater than or equal to 200 mg/dL meet the criteria for diagnosis of diabetes. Reference: Standards of Medical Care in Diabetes 2016, [place] Diabetes Association. Diabetes Care. 2016.39(Suppl 1). Performed By: #### 3 016-3, 13191-7, 82484-0 ####[facility] LABORATORYCLIA [id number] [place] [id number] [place] Potassium [Moles/Vol] 4.5 mmol/L Normal 3.7-5.1 [facility] Comment on above: Order Comment: Speci men Type: BLOOD SPECIMENOrdering Facility: [facility] Address: [address] [place] [address] Performed By: #### 3 016-3, 07108-9, 27529-2 ####[facility] LABORATORYCLIA [id number] [place] [address] [place] Protein [Mass/Vol] 6.4 g/dL Normal 6.3-8.0 [facility] Comment on above: Order Comment: Speci men Type: BLOOD SPECIMENOrdering Facility: [facility] Address: [address] [place] [address] Performed By: #### 3 016-3, 87902-9, 86852-6 ####[facility] LABORATORYCLIA [id number] [place] [address] [place] Sodium [Moles/Vol] 146 mmol/L High 136-144 [facility] Comment on above: Order Comment: Speci men Type: BLOOD SPECIMENOrdering Facility: [facility] Address: [address] [place] [address] Performed By: #### 3 016-3, 33490-7, 70898-7 ####[facility] LABORATORYCLIA [id number] [place] [id number] [place] Urea nitrogen [Mass/Vol] 15 mg/dL Normal 7-21 [facility] Comment on above: Order Comment: Speci men Type: BLOOD SPECIMENOrdering Facility: [facility] Address: [address] [place] [address] Performed By: #### 3 016-3, 02650-5, 58425-0 ####[facility] LABORATORYCLIA [id number] [place] [address] [place] Folate SerPl-mCncon 05-20-19 25 Folate [Mass/Vol] 9.9 ng/mL Normal >4.7 [facility] Comment on above: Order Comment: Speci men Type: BLOOD SPECIMENOrdering Facility: [facility] Address: [address] [place] [address] Performed By: #### 2 132-9, 2284-8 ####[facility] LABORATORYCLIA [id number] [place] [address] [place] [facility] HbA1c (Bld)on 05-20-2024 Average glucose Estimated from glycated hemoglobin (Bld) [Mass/Vol] 97 mg/dL Normal [facility] Comment on above: Order Comment: Speci men Type: BLOOD SPECIMENOrdering Facility: [facility] Address: [address] [place] [address] Result Comment: eAG: (Estimated average glucose) is a calculated value from HgbA1c and is mechanical service representative of the average blood glucose level in the last 2-3 month period. Performed By: #### 5 5454-3 ####[facility] LABCLIA [id number] [address] [place] [facility] HbA1c (Bld) [Mass fraction] 5.0 % Normal 4.3-5.6 [facility] Comment on above: Order Comment: Idalmisi men Type: BLOOD SPECIMENOrdering Facility: [facility] Address: [address] [place] [address] Result Comment: [place] Diabetes Association guidelines indicate that patients with HgbA1c in the range 5.7-6.4% are at increased risk for development of diabetes, and intervention by lifestyle modification may be beneficial. HgbA1c greater or equal to 6.5% is considered diagnostic of diabetes. Performed By: #### 5 5454-3 ####[facility] LABCLIA [id number] [address] [place] Iron and Iron binding capaci ty panelon 05-20-2024 Iron [Mass/Vol] 70 ug/dL Normal 41-186 [facility] Comment on above: Order Comment: Henry men Type: BLOOD SPECIMENOrdering Facility: [facility] Address: [address] [place] [address] Performed By: #### 3 016-3, 82685-1, 26290-7 ####[facility] LABORATORYCLIA [id number] [address] [place] Iron binding capacity [Mass/Vol] 222 ug/dL Low 232-386 [facility] Comment on above: Order Comment: Speci men Type: BLOOD SPECIMENOrdering Facility: [facility] Address: [address] [place] [address] Performed By: #### 3 016-3, 29907-1, 21818-0 ####[facility]PITALCLIA [id number] [place] [id number] [facility] Iron saturation [Mass fraction] 31.5 % Normal 15.0-57.0 [facility] Comment on above: Order Comment: Speci men Type: BLOOD SPECIMENOrdering Facility: [facility] Address: [address] [place] [address] Performed By: #### 3 016-3, 14154-0, [id number] ####[facility] LABORATORYCLIA [id number] [facility] TSH SerPl-aCncon 05-20-2024 TSH Qn 1.390 m[IU]/L Normal 0.270-4.200 [facility] Comment on above: Order Comment: Speci men Type: BLOOD SPECIMENOrdering Facility: [facility] Address: [address] [place] [address] Performed By: #### 3 [id number], [id number], 08438-9 ####[facility] LABORATORYCLIA [id number] [place] [id number] [place] Vit B12 SerPl-mCncon 025 Cobalamin (Vitamin B12) [Mass/Vol] 909 pg/mL Normal 232-1245 [facility] Comment on above: Order Comment: Speci men Type: BLOOD SPECIMENOrdering Facility: [facility] Address: [address] [place] [address] Performed By: #### 2 132-9, 2284-8 ####[facility] LABORATORYCLIA [id number] [place] [id number] [place] CNOVon 05-13-2024 CNOV Office Visit (PODIWS ) INÉS SHANKS ([id number]) 1965 F Date Time Provider Department 05/13/24 1:00 PM DRU SAHU PODIWS During your visit today, we recorded the following information about you: Sade Rodriguez, RN 05/14/2024 8:23 AM Signed Patient presents with: Right Foot - Established Patient, Follow Up, Pain, Fracture Left Great Toe - New, Diabetic Foot Ulcer AMB ROOMING INTAKE FLOWSHEET DATA Pain Pain Level: 2 Pain Location: Toe Patient presents for follow up of right 1st and 2nd toenail avulsion. Previous Xray showed fracture to right great toe. Patient states that her daughter mentioned that she had fallen out of bed prior to the nail coming off. So there might have been a possible injury to cause the fracture. Also states that she has a small ulcer to the top of her left great toe. States that it has been there for a few weeks. Xray prior to appointment. ELVIN 05/05/24 Dru Sahu 05/14/2024 8:23 AM Signed FOLLOW UP PODIATRIC OFFICE VISIT Chief Complaint: This 58 year old who presents for follow up:fracture of right great toe Patient presents to clinic for follow-up hallux fracture She does report pain to the right hallux, 05/02 Here to get a surgical shoe She states she now recalls falling out of bed prior to having issues with the toenail. Also here for follow-up toenail avulsion, right hallux. Patient states the wound is doing better States she does have a wound to left hallux that is new PAIN EVALUATION 05/13/2024 1327 Pain Level: 2 Pain Location: Toe Hemoglobin A1C Date Value Ref Range Status 11/11/2023 5.4 4.3 - 5.6 % Final Comment: [place] [employer] guidelines indicate that patients with HgbA1c in the range 5.7-6.4% are at increased risk for development of diabetes, and intervention by lifestyle modification may be beneficial. HgbA1c greater or equal to 6.5% is considered diagnostic of diabetes. PCP: Santhosh Holden MD PAST MEDICAL HISTORY Diagnosis Date Anxiety Powers's esophagus Bipolar 1 disorder (HCC) Dr. Orozco, psychiatry Chronic headaches Coronary-myocardial bridge DDD (degenerative disc disease) Depression 01/05/2015 Essential tremor TK tremor Fibromyalgia GERD (gastroesophageal reflux disease) HTN (hypertension) Hyperlipidemia Hypothyroid Liver fibrosis Mild CAD 08/22/2019 Neuropathy Non-melanoma skin cancer 03/08/2021 Obstructive sleep apnea PTSD (post-traumatic stress disorder) PVD (peripheral vascular disease) (HCC) Sciatica Shoulder injury Type II or unspecified type diabetes mellitus without mention of complication, not stated as uncontrolled Current Outpatient Medications Medication Sig metoprolol succinate ER (TOPROL XL) 25 mg 24 hr tablet Take 1 tablet by mouth once daily. gabapentin (NEURONTIN) 600 mg tablet Take 1 tablet by mouth three times a day for [address] (PROTONIX) 40 mg tablet Take 1 tablet by mouth two times a day. amoxicillin-clavulanate potassium (AUGMENTIN) 875-125 mg per tablet Take 1 tablet by mouth two times a day for 10 days. FOR 10 DAYS. rosuvastatin (CRESTOR) 5 mg tablet Take 1 tablet by mouth daily at bedtime. gabapentin (NEURONTIN) 300 mg capsule Take 1 capsule by mouth three times a day for 90 days. Fenofibrate (LOFIBRA) 54 mg tablet Take 1 tablet by mouth once daily carbidopa-levodopa (SINEMET) 25-100 mg per tablet Take 1 tablet by mouth three times a day. thyroid, pork, (ARMOUR THYROID) 60 mg tablet Take 1 tablet by mouth two times a day. ferrous sulfate 325 mg (65 mg iron) tablet Take 1 tablet by mouth two times a day with meals. prochlorperazine (COMPAZINE) 10 mg tablet Take 1 tablet by mouth two times a day as needed (migraine). metFORMIN ER (GLUCOPHAGE XR) 500 mg 24 hr tablet Take 3 tablets by mouth daily with breakfast. ondansetron (ZOFRAN) 4 mg tablet Take 1 tablet by mouth once daily as needed. Cetirizine (ZYRTEC) 10 mg cap Take 1 capsule by mouth once daily. blood sugar diagnostic (FREESTYLE LITE STRIPS) test strip Test blood sugar(s) once times daily. Dx: E11.40 Blood-Glucose Meter (FREESTYLE LITE METER) monitoring kit Freestyle LITE Meter Kit -Test blood sugars one time daily. DX E11.40 Lancets Test blood sugar(s) one time daily. Dx: Other DM Code E11.40 Insulin: No semaglutide (OZEMPIC) 0.25 mg or 0.5 mg (2 mg/3 mL) pen Inject 0.5 mg subcutaneously one time a week. lisinopril (ZESTRIL) 5 mg tablet Take 1 tablet by mouth once daily. lurasidone (LATUDA) 20 mg tablet take 1 tablet by mouth once daily with supper loratadine (CLARITIN) 10 mg tablet Take 10 mg by mouth once daily. carboxymethylcellulose (REFRESH CELLUVISC) 1 % ophthalmic solution Use 1 Drop in both eyes daily at bedtime. lamoTRIgine (LAMICTAL) 200 mg tablet Take 1 tablet by mouth two times a day. nitroglycerin sublingual (NITROQUICK (more content not included)... Normal [facility] XR TOE 3V AP/LAT/OBL RTon XR TOE 3V AP/LAT/OBL RT * * *Final Report* * * DATE OF EXAM: May 13 2024 1:22PM [id number] - XR TOE 3V AP/LAT/OBL RT / PROCEDURE REASON: Closed displaced fracture of phalanx of right great toe, unspecified phalanx, in * * * * Physician Interpretation * * * * EXAMINATION: XR TOE 3V AP/LAT/OBL RT TECHNIQUE: Laterality: RIGHT Number of different views (projections): 3 CLINICAL INDICATION: Closed displaced fracture of phalanx of right great toe, unspecified phalanx, initial encounter. COMPARISON:05/05/2024. RESULT: Nondisplaced fractures of the distal phalanx of the great toe, extending into the region of the tuft of the distal phalanx. Interval mild increase in osseous bridging, increased sclerosis and slightly less distinct fracture lines at the fracture sites compatible with progression of healing. The fracture fragments are well aligned. Stable appearing remote fracture deformity of the proximal phalanx of the second toe. - IMPRESSION: Healing fractures of the distal phalanx of the great toe. Purchasing Director: MEERA Transcribe Date/Time: May 18 2024 7:36A Dictated by : MARIAM BANG MD This examination was interpreted and the report reviewed and electronically signed by: MARIAM BANG MD on May 18 2024 7:38AM EST [id number] Normal [facility] 05-06-2024 CNPN Telephone (PODIWS) INÉS SHANKS ([id number]) 1965 F Date Time Provider Department 05/06/24 DRU SAHU PODIWS During your visit today, we recorded the following information about you: Dru Sahu 05/06/2024 5:44 PM Signed I attempted to contact patient but no answer. Unable to leave voice mail because her voice mail is yet to be set up. Left Integrate message BRITTNY Pickens Matthew 05/10/2024 10:48 AM Signed Contacted patient to discuss xrays. She finally got back to my Integrate message. I would like her to get surgical shoe for fracture of great toe. She is to repeat xrays of right great toe in 2 weeks. Continue with local wound care Hollie Diana LPN 05/10/2024 10:55 AM Signed Patient will tow picker post op shoe on Thursday05/13/2024 at office visit. Hollie Diana LPN Allergies As of Date: 05/06/2024 Noted Allergy Reaction CAT HAIR STANDARDIZED ALLERGENIC *12/20/2015 9 - Itching Comments: Eyes get really red, if cat is too close, can't breathe CATS 12/20/2015 9 - Itching Comments: Eyes get really red, if cat is too close, can't breathe CITRIC ACID 11/05/2016 5 - Intolerance MOLD SPORES 12/20/2015 14 - Other: See Comments Comments: Flu like symptoms ZOLPIDEM 10/29/2022 14 - Other: See Comments Date Reviewed: 05/05/2024 Reviewed by: Hollie Diana LPN - Fully Assessed Reason for Visit: Patient Update [1234] Primary Visit Diagnosis:Closed displaced fracture of phalanx of right great toe, unspecified phalanx, initial encounter [S92.401A] Order(s):XR TOE AP/LAT/OBL RIGHT [4284114] Order #: [id number] FUTURE E-CONSULT INFECTIOUS DISEASE [[id number]] Order #: [id number]: 1 Prescriptions as of 05/10/2024 - pantoprazole DR (PROTONIX) 40 mg tablet Take 1 tablet by mouth two times a day. - amoxicillin-clavulanate potassium (AUGMENTIN) 875-125 mg per tablet Take 1 tablet by mouth two times a day for 10 days. FOR 10 DAYS. - rosuvastatin (CRESTOR) 5 mg tablet Take 1 tablet by mouth daily at bedtime. - gabapentin (NEURONTIN) 300 mg capsule Take 1 capsule by mouth three times a day for 90 days. - Fenofibrate (LOFIBRA) 54 mg tablet Take 1 tablet by mouth once daily - carbidopa-levodopa (SINEMET) 25-100 mg per tablet Take 1 tablet by mouth three times a day. - thyroid, pork, (ARMOUR THYROID) 60 mg tablet Take 1 tablet by mouth two times a day. - ferrous sulfate 325 mg (65 mg iron) tablet Take 1 tablet by mouth two times a day with meals. - prochlorperazine (COMPAZINE) 10 mg tablet Take 1 tablet by mouth two times a day as needed (migraine). - metFORMIN ER (GLUCOPHAGE XR) 500 mg 24 hr tablet Take 3 tablets by mouth daily with breakfast. - ondansetron (ZOFRAN) 4 mg tablet Take 1 tablet by mouth once daily as needed. - metoprolol succinate ER (TOPROL XL) 25 mg 24 hr tablet Take 1 tablet by mouth once daily. - gabapentin (NEURONTIN) 600 mg tablet Take 1 tablet by mouth three times a day for 180 days. - Cetirizine (ZYRTEC) 10 mg cap Take 1 capsule by mouth once daily. - blood sugar diagnostic (FREESTYLE LITE STRIPS) test strip Test blood sugar(s) once times daily. Dx: E11.40 - Blood-Glucose Meter (FREESTYLE LITE METER) monitoring kit Freestyle LITE Meter Kit -Test blood sugars one time daily. DX E11.40 - Lancets Test blood sugar(s) one time daily. Dx: Other DM Code E11.40 Insulin: No - semaglutide (OZEMPIC) 0.25 mg or 0.5 mg (2 mg/3 mL) pen Inject 0.5 mg subcutaneously one time a week. - lisinopril (ZESTRIL) 5 mg tablet Take 1 tablet by mouth once daily. - lurasidone (LATUDA) 20 mg tablet take 1 tablet by mouth once daily with supper - loratadine (CLARITIN) 10 mg tablet Take 10 mg by mouth once daily. - carboxymethylcellulose (REFRESH CELLUVISC) 1 % ophthalmic solution Use 1 Drop in both eyes daily at bedtime. - lamoTRIgine (LAMICTAL) 200 mg tablet Take 1 tablet by mouth two times a day. - nitroglycerin sublingual (NITROQUICK) 0.3 mg SL tablet Dissolve 1 tablet under the tongue every 5 minutes as needed. - PEG 400-propylene glycol (SYSTANE ULTRA) 0.4-0.3 % ophthalmic solution Use 1 Drop in both eyes twice daily. - VYVANSE 20 mg capsule 40 mg. - Aluminum Hydrox-Magnesium Carb (GAVISCON EXTRA STRENGTH) 254-237.5 mg/5 mL susp Take 15 mL by mouth at bedtime as needed. - acetaminophen (TYLENOL EXTRA STRENGTH) 500 mg tablet Take 2 tablets by mouth every 8 hours as needed for Pain. - COMPOUNDED PRESCRIPTION Initiate AutoPAP @ 10-20 cm of water with humidification mask (per patient preference) optional chin strap (if indicated) and lifetime supplies ([facility]) DX: KRZYSZTOF G47.33 - multivit with minerals/lutein (MULTIVITAMIN 50 PLUS ORAL) Take 1 tablet by mouth once daily. - COMPOUNDED PRESCRIPTION Diabetic shoes One pair - CPAP CPAP with humidification. Mask (per patient preference) optional chin strap (if indicated (more content not included)... Normal [facility] Bacteria Wnd Culton 05-05-19 25 Bacteria identified Cx Nom (Wound) ORGANISM ID: 1 Moderate Staphylococcus aureus GRAM STAIN: Rare Gram positive cocci Rare Polymorphonuclear leukocytes ORGANISM ID: 1 (STAPHYLOCOCCUS AUREUS) ------ ANTIBIOTIC INTERPRETATION TRAN STATUS REFERENCE RANGE ------ Oxacillin S 0.5 F Susceptible <=2 , Resistant >2 Oxacillin-susceptible staphylococci are susceptible to other penicilllinase-stable penicillins, beta-lactam/beta-lactamase inhibitor combinations, anti-staphylococcal cephems, and carbapenems. Erythromycin S <=0.25 F Susceptible <=0.5 , Intermediate >.5 , Resistant >4 Clindamycin S 0.25 F Susceptible <=0.5 , Intermediate >.5 , Resistant >2 Trimeth sulfameth S <=10 F Susceptible <=40 , Resistant >40 Vancomycin S <=0.5 F Susceptible <=2 , Intermediate >2 , Resistant >8 Rifampin S <=0.5 F Susceptible <=1 , Intermediate >1 , Resistant >2 Rifampin should not be used alone for antimicrobial therapy. Tetracycline S <=1 F Susceptible <=4 , Intermediate >4 , Resistant >8 Doxycycline S <=0.5 F Susceptible <=4 , Intermediate >4 , Resistant >8 Abnormal [facility] Comment on above: Performed By: #### 6 [id number] ####[facility] LABLISA [id number] [address] [place] CNOVon 05-05-2024 CNOV Office Visit (PODIWS ) INÉS SHANKS ([id number]) 1965 F Date Time Provider Department 05/05/24 1:45 PM DRU SAHUIWFabiana During your visit today, we recorded the following information about you: Hollie Diana LPN 05/05/2024 2:08 PM Signed AMB ROOMING INTAKE FLOWSHEET DATA Pain Pain Level: 1 Pain Location: Toe Description: Sore Duration Amount of Time: 1 Duration Units: Months Frequency: Intermittent Intervention/Comfort measure: Relaxation, Reposition, Medication Patient presents with: Right Foot - Established Patient, Follow Up ROXANE Berger Matthew 05/05/2024 2:08 PM Signed FOLLOW UP PODIATRIC OFFICE VISIT Chief Complaint: This 58 year old who presents for follow up:right 1st and 2nd toe s/p total nail avulsion Patient presents to clinic for follow-up right 1st and 2nd toe She had the nails removed second to infection. She states that she has not been compliant with dressing changes or soaks. She states that she has been ill. She has n/v/f and feels weak. As a result, she just has not taken care of her toes. She has not seen anyone for the illness. She has anxiety with seeing doctors. She states the toes are red and swollen. She denies any drainage. PAIN EVALUATION 05/05/2024 1323 Pain Level: 1 Pain Location: Toe Description: Sore Duration Amount of Time: 1 Duration Units: Months Frequency: Intermittent Intervention/Comfort measure: Relaxation;Reposition;Medica tion Hemoglobin A1C Date Value Ref Range Status 11/11/2023 5.4 4.3 - 5.6 % Final Comment: [place] [employer] guidelines indicate that patients with HgbA1c in the range 5.7-6.4% are at increased risk for development of diabetes, and intervention by lifestyle modification may be beneficial. HgbA1c greater or equal to 6.5% is considered diagnostic of diabetes. PCP: Santhosh Holden MD PAST MEDICAL HISTORY Diagnosis Date Anxiety Powers's esophagus Bipolar 1 disorder (HCC) Dr. Orozco, psychiatry Chronic headaches Coronary-myocardial bridge DDD (degenerative disc disease) Depression 01/05/2015 Essential tremor TK tremor Fibromyalgia GERD (gastroesophageal reflux disease) HTN (hypertension) Hyperlipidemia Hypothyroid Liver fibrosis Mild CAD 08/22/2019 Neuropathy Non-melanoma skin cancer 03/08/2021 Obstructive sleep apnea PTSD (post-traumatic stress disorder) PVD (peripheral vascular disease) (HCC) Sciatica Shoulder injury Type II or unspecified type diabetes mellitus without mention of complication, not stated as uncontrolled Current Outpatient Medications Medication Sig rosuvastatin (CRESTOR) 5 mg tablet Take 1 tablet by mouth daily at bedtime. gabapentin (NEURONTIN) 300 mg capsule Take 1 capsule by mouth three times a day for 90 days. Fenofibrate (LOFIBRA) 54 mg tablet Take 1 tablet by mouth once daily carbidopa-levodopa (SINEMET) 25-100 mg per tablet Take 1 tablet by mouth three times a day. thyroid, pork, (ARMOUR THYROID) 60 mg tablet Take 1 tablet by mouth two times a day. ferrous sulfate 325 mg (65 mg iron) tablet Take 1 tablet by mouth two times a day with meals. prochlorperazine (COMPAZINE) 10 mg tablet Take 1 tablet by mouth two times a day as needed (migraine). metFORMIN ER (GLUCOPHAGE XR) 500 mg 24 hr tablet Take 3 tablets by mouth daily with breakfast. ondansetron (ZOFRAN) 4 mg tablet Take 1 tablet by mouth once daily as needed. pantoprazole DR (PROTONIX) 40 mg tablet Take 1 tablet by mouth two times a day. metoprolol succinate ER (TOPROL XL) 25 mg 24 hr tablet Take 1 tablet by mouth once daily. gabapentin (NEURONTIN) 600 mg tablet Take 1 tablet by mouth three times a day for 180 days. Cetirizine (ZYRTEC) 10 mg cap Take 1 capsule by mouth once daily. blood sugar diagnostic (FREESTYLE LITE STRIPS) test strip Test blood sugar(s) once times daily. Dx: E11.40 Blood-Glucose Meter (FREESTYLE LITE METER) monitoring kit Freestyle LITE Meter Kit -Test blood sugars one time daily. DX E11.40 Lancets Test blood sugar(s) one time daily. Dx: Other DM Code E11.40 Insulin: No semaglutide (OZEMPIC) 0.25 mg or 0.5 mg (2 mg/3 mL) pen Inject 0.5 mg subcutaneously one time a week. lisinopril (ZESTRIL) 5 mg tablet Take 1 tablet by mouth once daily. lurasidone (LATUDA) 20 mg tablet take 1 tablet by mouth once daily with supper loratadine (CLARITIN) 10 mg tablet Take 10 mg by mouth once daily. carboxymethylcellulose (REFRESH CELLUVISC) 1 % ophthalmic solution Use 1 Drop in both eyes daily at bedtime. lamoTRIgine (LAMICTAL) 200 mg tablet Take 1 tablet by mouth two times a day. nitroglycerin sublingual (NITROQUICK) 0.3 mg SL tablet Dissolve 1 tablet under the tongue every 5 minutes as needed. VYVANSE 20 mg capsule 40 mg. Aluminum Hydrox-Magnesium Carb (GAVISCON EXTRA STRENGTH) 254-237.5 mg/5 mL susp Take 15 mL by mouth at (more content not included)... Normal [facility] XR TOE 3V AP/LAT/OBL RTon XR TOE 3V AP/LAT/OBL RT * * *Final Report* * * DATE OF EXAM: May 05 2024 2:34PM [id number] - XR TOE 3V AP/LAT/OBL RT / PROCEDURE REASON: multiple diagnoses * * * * Physician Interpretation * * * * EXAMINATION: XR TOE 3V AP/LAT/OBL RT PATIENT/TECHNOLOGIST PROVIDED HISTORY: PT STATES RIGHT FOOT GREAT TOE NAIL INFECTION X 1 MONTH BEST POSSIBLE FILMS PT HAS TREMORS CLINICAL INFORMATION: 58 years old Female with Cellulitis and abscess of toe of right foot. Patient is s/p total nail avulsion 2 weeks ago. Has failed to dress the wound. Now with superficial infection Xrays intended to evaluate for bone infection of the distal tuft of right hallux TECHNIQUE: XR TOE 3V AP/LAT/OBL RT Laterality: RIGHT Number of different views (projections): 3 COMPARISON: Radiographs 11/19/2022 RESULT: Avulsion of the RIGHT great toe nailbed. Subacute appearing nondisplaced fracture tuft of the great toe distal phalanx. No bony destructive changes to suggest osteomyelitis. Remote fracture deformity of the 2nd proximal phalanx unchanged in appearance since radiographs 11/19/2022. Mild degenerative change 2nd MTP joint. Remainder of the visualized joint spaces appear maintained. IMPRESSION: Avulsion of the RIGHT great toe nailbed and subacute appearing nondisplaced fracture of the tuft of the RIGHT great toe distal phalanx. No radiographic evidence of osteomyelitis. Purchasing Director: [facility] Transcribe Date/Time: May 05 2024 2:38P Dictated by : DEO OROSCO DO This examination was interpreted and the report reviewed and electronically signed by: DEO OROSCO DO on May 05 2024 2:44PM EST [id number] Normal [facility] XR Toes - right 3 Viewson IMPRESSION: Avulsion of the RIGHT great toe nailbed and subacute appearing nondisplaced fracture of the tuft of the RIGHT great toe distal phalanx. No radiographic evidence of osteomyelitis. Purchasing Director: [facility] Transcribe Date/Time: May 05 2024 2:38P Dictated by : DEO OROSCO DO This examination was interpreted and the report reviewed and electronically signed by: DEO OROSCO DO on May 05 2024 2:44PM EST DIVISION OF RADIOLOGY * * *Final Report* * * DATE OF EXAM: May 05 2024 2:34PM [id number] - XR TOE 3V AP/LAT/OBL RT / PROCEDURE REASON: multiple diagnoses * * * * Physician Interpretation * * * * EXAMINATION: XR TOE 3V AP/LAT/OBL RT PATIENT/TECHNOLOGIST PROVIDED HISTORY: PT STATES RIGHT FOOT GREAT TOE NAIL INFECTION X 1 MONTH BEST POSSIBLE FILMS PT HAS TREMORS CLINICAL INFORMATION: 58 years old Female with Cellulitis and abscess of toe of right foot. Patient is s/p total nail avulsion 2 weeks ago. Has failed to dress the wound. Now with superficial infection Xrays intended to evaluate for bone infection of the distal tuft of right hallux TECHNIQUE: XR TOE 3V AP/LAT/OBL RT Laterality: RIGHT Number of different views (projections): 3 COMPARISON: Radiographs 11/19/2022 RESULT: Avulsion of the RIGHT great toe nailbed. Subacute appearing nondisplaced fracture tuft of the great toe distal phalanx. No bony destructive changes to suggest osteomyelitis. Remote fracture deformity of the 2nd proximal phalanx unchanged in appearance since radiographs 11/19/2022. Mild degenerative change 2nd MTP joint. Remainder of the visualized joint spaces appear maintained. DIVISION OF RADIOLOGY Provider, [facility] - 05/05/2024 * * *Final Report* * * DATE OF EXAM: May 05 2024 2:34PM [id number] - XR TOE 3V AP/LAT/OBL RT / PROCEDURE REASON: multiple diagnoses * * * * Physician Interpretation * * * * EXAMINATION: XR TOE 3V AP/LAT/OBL RT PATIENT/TECHNOLOGIST PROVIDED HISTORY: PT STATES RIGHT FOOT GREAT TOE NAIL INFECTION X 1 MONTH BEST POSSIBLE FILMS PT HAS TREMORS CLINICAL INFORMATION: 58 years old Female with Cellulitis and abscess of toe of right foot. Patient is s/p total nail avulsion 2 weeks ago. Has failed to dress the wound. Now with superficial infection Xrays intended to evaluate for bone infection of the distal tuft of right hallux TECHNIQUE: XR TOE 3V AP/LAT/OBL RT Laterality: RIGHT Number of different views (projections): 3 COMPARISON: Radiographs 11/19/2022 RESULT: Avulsion of the RIGHT great toe nailbed. Subacute appearing nondisplaced fracture tuft of the great toe distal phalanx. No bony destructive changes to suggest osteomyelitis. Remote fracture deformity of the 2nd proximal phalanx unchanged in appearance since radiographs 11/19/2022. Mild degenerative change 2nd MTP joint. Remainder of the visualized joint spaces appear maintained. IMPRESSION IMPRESSION: Avulsion of the RIGHT great toe nailbed and subacute appearing nondisplaced fracture of the tuft of the RIGHT great toe distal phalanx. No radiographic evidence of osteomyelitis. Purchasing Director: [facility] Transcribe Date/Time: May 05 2024 2:38P Dictated by : DEO OROSCO DO This examination was interpreted and the report reviewed and electronically signed by: DEO OROSCO DO on May 05 2024 2:44PM EST [facility] Radiology Study observation (narrative) [facility] XR Toes - right 3 ViewsOrder ed By: [facility] Provider on 05-05-2024 [facility] Bacteria Wnd Culton 03-29-19 25 Bacteria identified Cx Nom (Wound) ORGANISM ID: 1 Many Staphylococcus aureus ORGANISM ID: 2 Few skin ashlyn GRAM STAIN: Rare Gram positive cocci No Polymorphonuclear Leukocytes ORGANISM ID: 1 (STAPHYLOCOCCUS AUREUS) ------ ANTIBIOTIC INTERPRETATION TRAN STATUS REFERENCE RANGE ------ Oxacillin S 0.5 F Susceptible <=2 , Resistant >2 Oxacillin-susceptible staphylococci are susceptible to other penicilllinase-stable penicillins, beta-lactam/beta-lactamase inhibitor combinations, anti-staphylococcal cephems, and carbapenems. Erythromycin S <=0.25 F Susceptible <=0.5 , Intermediate >.5 , Resistant >4 Clindamycin S 0.25 F Susceptible <=0.5 , Intermediate >.5 , Resistant >2 Trimeth sulfameth S <=10 F Susceptible <=40 , Resistant >40 Vancomycin S 1 F Susceptible <=2 , Intermediate >2 , Resistant >8 Rifampin S <=0.5 F Susceptible <=1 , Intermediate >1 , Resistant >2 Rifampin should not be used alone for antimicrobial therapy. Tetracycline S <=1 F Susceptible <=4 , Intermediate >4 , Resistant >8 Doxycycline S <=0.5 F Susceptible <=4 , Intermediate >4 , Resistant >8 Abnormal [facility] Comment on above: Performed By: #### 6 [id number] ####[facility] LABCLIA [id number] [place] [address] [place] Bacteria identified Cx Nom (Wound) ORGANISM ID: 1 Many Staphylococcus aureus ORGANISM ID: 2 Few skin ashlyn GRAM STAIN: Many Gram positive cocci Rare Gram variable bacilli Rare Polymorphonuclear leukocytes ORGANISM ID: 1 (STAPHYLOCOCCUS AUREUS) ------ ANTIBIOTIC INTERPRETATION TRAN STATUS REFERENCE RANGE ------ Oxacillin S <=0.25 F Susceptible <=2 , Resistant >2 Oxacillin-susceptible staphylococci are susceptible to other penicilllinase-stable penicillins, beta-lactam/beta-lactamase inhibitor combinations, anti-staphylococcal cephems, and carbapenems. Erythromycin S <=0.25 F Susceptible <=0.5 , Intermediate >.5 , Resistant >4 Clindamycin S 0.25 F Susceptible <=0.5 , Intermediate >.5 , Resistant >2 Trimeth sulfameth S <=10 F Susceptible <=40 , Resistant >40 Vancomycin S <=0.5 F Susceptible <=2 , Intermediate >2 , Resistant >8 Rifampin S <=0.5 F Susceptible <=1 , Intermediate >1 , Resistant >2 Rifampin should not be used alone for antimicrobial therapy. Tetracycline S <=1 F Susceptible <=4 , Intermediate >4 , Resistant >8 Doxycycline S <=0.5 F Susceptible <=4 , Intermediate >4 , Resistant >8 Abnormal [facility] Comment on above: Performed By: #### 6 [id number] ####[facility] LABIA [id number] [address] [place] CNNUNUon 03-29-2024 CNOV Office Visit (PODIWS ) INÉS SHANKS ([id number]) 1965 F FNS Date Time Provider Department 03/29/24 11:30 AM DRU SAHU During your visit today, we recorded the following information about you: Sade Rodriguez RN 03/29/2024 2:01 PM Signed AMB ROOMING INTAKE FLOWSHEET DATA Pain Pain Level: 2 Pain Location: Toe Duration Amount of Time: 1 Duration Units: Weeks Frequency: Continuous Intervention/Comfort measure: Relaxation Patient presents with: Right Foot - Established Patient, Infection, Pain Patient presents for wound to right 1st and 2nd toe. States that it started as a blood blister about a week ago. Toes are red and swollen. Small wound noted to 2nd toe, 1st toenail appears to be at the base. Patient is a diabetic with a history of neuropathy. ELVIN 11/19/22 Dru Sahu 03/29/2024 2:01 PM Signed Chief Complaint: This 58 year old female who presents with chief complaint:cellulitis of right 1st and 2nd toe HPI Patient presents to clinic for evaluation of right foot Complains of redness and swelling of right 1st and 2nd toe States this started last week. Reports that there is swelling, redness and drainage. Also reports that the toenails are lifting. PAIN EVALUATION 03/29/2024 1131 Pain Level: 2 Pain Location: Toe Duration Amount of Time: 1 Duration Units: Weeks Frequency: Continuous Intervention/Comfort measure: Relaxation Hemoglobin A1C (%) Date Value 11/11/2023 5.4 04/03/2023 6.5 12/05/2022 7.4 05/21/2022 6.5 10/11/2021 6.1 12/04/2020 5.3 05/04/2020 5.5 02/24/2020 5.4 08/31/2019 6.0 09/24/2018 7.8 PCP: Santhosh Holden MD PAST MEDICAL HISTORY Diagnosis Date Anxiety Powers's esophagus Bipolar 1 disorder (HCC) Dr. Orozco, psychiatry Chronic headaches Coronary-myocardial bridge DDD (degenerative disc disease) Depression 01/05/2015 Essential tremor TK tremor Fibromyalgia GERD (gastroesophageal reflux disease) HTN (hypertension) Hyperlipidemia Hypothyroid Liver fibrosis Mild CAD 08/22/2019 Neuropathy Non-melanoma skin cancer 03/08/2021 Obstructive sleep apnea PTSD (post-traumatic stress disorder) PVD (peripheral vascular disease) (HCC) Sciatica Shoulder injury Type II or unspecified type diabetes mellitus without mention of complication, not stated as uncontrolled Current Outpatient Medications Medication Sig gabapentin (NEURONTIN) 300 mg capsule Take 1 capsule by mouth three times a day for 90 days. Fenofibrate (LOFIBRA) 54 mg tablet Take 1 tablet by mouth once daily carbidopa-levodopa (SINEMET) 25-100 mg per tablet Take 1 tablet by mouth three times a day. thyroid, pork, (ARMOUR THYROID) 60 mg tablet Take 1 tablet by mouth two times a day. ferrous sulfate 325 mg (65 mg iron) tablet Take 1 tablet by mouth two times a day with meals. prochlorperazine (COMPAZINE) 10 mg tablet Take 1 tablet by mouth two times a day as needed (migraine). metFORMIN ER (GLUCOPHAGE XR) 500 mg 24 hr tablet Take 3 tablets by mouth daily with breakfast. ondansetron (ZOFRAN) 4 mg tablet Take 1 tablet by mouth once daily as needed. pantoprazole DR (PROTONIX) 40 mg tablet Take 1 tablet by mouth two times a day. metoprolol succinate ER (TOPROL XL) 25 mg 24 hr tablet Take 1 tablet by mouth once daily. gabapentin (NEURONTIN) 600 mg tablet Take 1 tablet by mouth three times a day for 180 days. rosuvastatin (CRESTOR) 5 mg tablet Take 1 tablet by mouth daily at bedtime. Cetirizine (ZYRTEC) 10 mg cap Take 1 capsule by mouth once daily. blood sugar diagnostic (FREESTYLE LITE STRIPS) test strip Test blood sugar(s) once times daily. Dx: E11.40 Blood-Glucose Meter (FREESTYLE LITE METER) monitoring kit Freestyle LITE Meter Kit -Test blood sugars one time daily. DX E11.40 Lancets Test blood sugar(s) one time daily. Dx: Other DM Code E11.40 Insulin: No semaglutide (OZEMPIC) 0.25 mg or 0.5 mg (2 mg/3 mL) pen Inject 0.5 mg subcutaneously one time a week. lisinopril (ZESTRIL) 5 mg tablet Take 1 tablet by mouth once daily. lurasidone (LATUDA) 20 mg tablet take 1 tablet by mouth once daily with supper carboxymethylcellulose (REFRESH CELLUVISC) 1 % ophthalmic solution Use 1 Drop in both eyes daily at bedtime. lamoTRIgine (LAMICTAL) 200 mg tablet Take 1 tablet by mouth two times a day. nitroglycerin sublingual (NITROQUICK) 0.3 mg SL tablet Dissolve 1 tablet under the tongue every 5 minutes as needed. VYVANSE 20 mg capsule 40 mg. Aluminum Hydrox-Magnesium Carb (GAVISCON EXTRA STRENGTH) 254-237.5 mg/5 mL susp Take 15 mL by mouth at bedtime as needed. acetaminophen (TYLENOL EXTRA STRENGTH) 500 mg tablet Take 2 tablets by mouth every 8 hours as needed for Pain. COMPOUNDED PRESCRIPTION Initiate AutoPAP @ 10-20 cm of water with humidification mask (per patient preference) optional chin strap (if indicated) and (more content not included)... Normal [facility] CNOVon 01-08-2024 CNOV Office Visit ([facility] ) INÉS SHANKS ([id number]) 1965 F [facility] Date Time Provider Department 01/08/24 11:30 AM JOVANNA PRINCE [facility] During your visit today, we recorded the following information about you: Pulse Blood pressure Weight Height 74/minute 122/77 92 kg 1.702 m Jovanna Prince MD 02/06/2024 10:10 AM Signed FOLLOW UP NOTE Subjective Inés Shanks is a 58 year old female who presents for follow up. CC: Tremor Summary of prior care: 07/2022 right-handed female with a history of PTSD, bipolar disorder, fibromyalgia, migraine, and tremor amongst other conditions who presents for evaluation of tremor. 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 Complicated presentation primarily due to the large amount of neuropsychiatrically active medications she is on. Wellbutrin, Austedo, and Vyvanse can all contribute to tremor. Suggested tapering off Austedo for now, consider other changes in the future. For migraine, will do medrol dose ryne + compazine bridge treatment. Afterwards can take compazine. Hesitant to add additional prescription medications due to polypharmacy. Will try migraine supplements B2 and Mg. 10/2022 retry levodopa 100 TID for mixed tremor. 06/2023 fine to continue levodopa, unclear how much is FT vs organic, low concern degenerative etiology to memory symptoms, start B2. HPI Current Issues - Tremor seems to be doing better than before but still present - In the hands / arms primarily, also head, right a little worse than left - Annoying, makes writing difficult - No side effects to levodopa - Migraines doing better than before - Gets around 3-4 migraines a month which are somewhat helpful, lays down and goes to sleep, wakes up feeling better with just mild headache - Taking B2 now - Her daughter is now managing her medications as patient had a suicide attempt with pill overdose - Psychiatrist is Dr. Spencer - Occasional auditory hallucinations Headache description: - Aura: Notes possibly seeing things hard to explain - Onset: More in the morning - Location: Typically one side or the other, uncommonly back of head - Pain: Pressure, sharp - A/w: (+)photophobia / (+)phonophobia / (+)nausea / (+/-)osmophobia / (-)autonomic sx - Positional?: n/a - Improves with: Sleep - Triggers: Certain smells - Family Hx: Mom Current preventive: Gabapentin for fibromyalgia / neuropathy, LTG for mood, metoprolol for heart, B2 Current abortive: Compazine PRN Previous preventives: Never been prescribed something specific for it, meds she has been on in the past include verapamil, metoprolol, propranolol. Previous abortives: n/a Current meds: - Wellbutrin 200 mg BID - Vyvanse 40 mg daily - Trintellix 20 mg daily - Lamotrigine 200 mg BID - Lurasidone 20 mg daily - Clonazepam 1 mg TID - Gabapentin 900 mg TID (FM, PN) - Metoprolol ER 25 mg daily - Cd/ld 25/100 TID Current Outpatient Medications Medication Sig Dispense Refill thyroid, pork, (ARMOUR THYROID) 60 mg tablet Take 1 tablet by mouth two times a day. 60 tablet 5 ferrous sulfate 325 mg (65 mg iron) tablet Take 1 tablet by mouth two times a day with meals. 180 tablet 1 gabapentin (NEURONTIN) 300 mg capsule Take 1 capsule by mouth three times a day for 90 days. 90 capsule 0 prochlorperazine (COMPAZINE) 10 mg tablet Take 1 tablet by mouth two times a day as needed (migraine). 20 tablet 1 metFORMIN ER (GLUCOPHAGE XR) 500 mg 24 hr tablet Take 3 tablets by mouth daily with breakfast. 270 tablet 1 ondansetron (ZOFRAN) 4 mg tablet Take 1 tablet by mouth once daily as needed. [address] (PROTONIX) 40 mg tablet Take 1 tablet by mouth two times a day. 180 tablet 1 metoprolol succinate ER (TOPROL XL) 25 mg 24 hr tablet Take 1 tablet by mouth once daily. 30 tablet 5 gabapentin (NEURONTIN) 600 mg tablet Take 1 tablet by mouth three times a day for 180 days. 270 tablet 1 rosuvastatin (CRESTOR) 5 mg tablet Take 1 tablet by mouth daily at bedtime. 90 tablet 1 Cetirizine (ZYRTEC) 10 mg cap Take 1 capsule by mouth once daily. 90 capsule 3 blood sugar diagnostic (FREESTYLE LITE STRIPS) test strip Test blood sugar(s) once times daily. Dx: E11.40 25 Strip 3 Blood-Glucose Meter (FREESTYLE LITE METER) monitoring kit Freestyle LITE Meter Kit -Test blood sugars one time daily. DX E11.40 1 Each 0 Lancets Test blood sugar(s) one time daily. Dx: Other DM Code E11.40 Insulin: No 100 Each 11 semaglutide (OZEMPIC) 0.25 mg or 0.5 mg (2 mg/3 mL) pen Inject 0.5 mg subcutaneously one time a week. 3 mL 11 lisinopril (ZESTRIL) 5 mg tablet Take 1 tablet by mouth once daily. 90 tablet 3 carbidopa-levodopa (SINEMET) 25-100 mg per tablet Take 1 tablet by mouth three times a day. 270 tablet 1 lurasidone (LATUDA) 20 mg tablet take 1 tablet by mouth once daily with (more content not included)... Normal [facility] CNOVon 12-25-2023 CNOV Office Visit (OTOLMM ) INÉS SHANKS ([id number]) 1965 F FNS Date Time Provider Department 12/25/23 10:00 AM DRU COLLADO OTOLMM During your visit today, we recorded the following information about you: Dru Collado MD 12/25/2023 11:07 AM Signed HPI Inés Shanks is a 58 year old female who presents with hearing loss. Patient has noted gradual hearing loss in both ears. Patient is seen in consultation for Dr. Holden patient is having moderate communication issues. Worse with background noise. ROS General Weight loss: No Fatigue: No Night sweats:No Cardiac Chest pain:No Fast heart rate:No Swelling in the feet:No Respiratory Short of breath:No Cough:No Wheezing:No Gastrointestinal Nausea:No Vomiting:No Indigestion:No Past medical history, family history, and social history reviewed. PE LMP 11/20/2014 (Approximate) General: Patient is awake, alert, NAD. Voice is normal. Skin: normal Eyes: Extraocular motion and Gaze is normal. Ears: Right external auditory canal is normal. TMJ: normal. Right tympanic membranes normal. Left external auditory canal is normal. Left tympanic membrane normal. Nose: Septum is normal. Turbinates are normal. Nasopharynx:normal Oral Cavity/Oropharynx: Lips normal Dentition normal Tongue normal. Tonsils normal. Palate and uvula normal. Pharynx posterior normal Hypopharynx: Base of tongue normal Pyriform sinus normal. Larynx: Vocal cords normal. Epiglottis normal. Post cricoid normal. Salivary glands: Parotid normal. Submandibular and sublingual normal. Thyroid: normal. Lymphatic/Neck: Lymph nodes normal. Neurologic: Facial nerve normal. Audiogram reviewed ASSESSMENT/PLAN: 1. Sensorineural hearing loss (SNHL) of both ears - ICD9: 389.18, ICD10: H90.3 Recommend hearing aid evaluation Dru Collado MD Findings will be communicated to the referring physician via mail or electronic medical record. Referring Provider: SANTHOSH HOLDEN [[id number]] Allergies As of Date: 12/25/2023 Noted Allergy Reaction CAT HAIR STANDARDIZED ALLERGENIC *12/20/2015 9 - Itching Comments: Eyes get really red, if cat is too close, can't breathe CATS 12/20/2015 9 - Itching Comments: Eyes get really red, if cat is too close, can't breathe CITRIC ACID 11/05/2016 5 - Intolerance MOLD SPORES 12/20/2015 14 - Other: See Comments Comments: Flu like symptoms ZOLPIDEM 10/29/2022 14 - Other: See Comments Date Reviewed: 12/25/2023 Reviewed by: Lily Cruz Ma - Fully Assessed Reason for Visit: had audio [Other] Hearing Loss [1119] Cmt: Bilateral hearing loss. Primary Visit Diagnosis:Sensorineural hearing loss (SNHL) of both ears [H90.3] Prescriptions as of 12/25/2023 - ferrous sulfate 325 mg (65 mg iron) tablet Take 1 tablet by mouth two times a day with meals. - gabapentin (NEURONTIN) 300 mg capsule Take 1 capsule by mouth three times a day for 90 days. - prochlorperazine (COMPAZINE) 10 mg tablet Take 1 tablet by mouth two times a day as needed (migraine). - metFORMIN ER (GLUCOPHAGE XR) 500 mg 24 hr tablet Take 3 tablets by mouth daily with breakfast. - ondansetron (ZOFRAN) 4 mg tablet Take 1 tablet by mouth once daily as needed. - pantoprazole DR (PROTONIX) 40 mg tablet Take 1 tablet by mouth two times a day. - metoprolol succinate ER (TOPROL XL) 25 mg 24 hr tablet Take 1 tablet by mouth once daily. - gabapentin (NEURONTIN) 600 mg tablet Take 1 tablet by mouth three times a day for 180 days. - rosuvastatin (CRESTOR) 5 mg tablet Take 1 tablet by mouth daily at bedtime. - Cetirizine (ZYRTEC) 10 mg cap Take 1 capsule by mouth once daily. - blood sugar diagnostic (FREESTYLE LITE STRIPS) test strip Test blood sugar(s) once times daily. Dx: E11.40 - Blood-Glucose Meter (FREESTYLE LITE METER) monitoring kit Freestyle LITE Meter Kit -Test blood sugars one time daily. DX E11.40 - Lancets Test blood sugar(s) one time daily. Dx: Other DM Code E11.40 Insulin: No - semaglutide (OZEMPIC) 0.25 mg or 0.5 mg (2 mg/3 mL) pen Inject 0.5 mg subcutaneously one time a week. - lisinopril (ZESTRIL) 5 mg tablet Take 1 tablet by mouth once daily. - carbidopa-levodopa (SINEMET) 25-100 mg per tablet Take 1 tablet by mouth three times a day. - lurasidone (LATUDA) 20 mg tablet take 1 tablet by mouth once daily with supper - loratadine (CLARITIN) 10 mg tablet Take 10 mg by mouth once daily. - carboxymethylcellulose (REFRESH CELLUVISC) 1 % ophthalmic solution Use 1 Drop in both eyes daily at bedtime. - thyroid, pork, (ARMOUR THYROID) 60 mg tablet Take 1 tablet by mouth two times a day. - lamoTRIgine (LAMICTAL) 200 mg tablet Take 1 tablet by mouth two times a day. - nitroglycerin sublingual (NITROQUICK) 0.3 mg SL tablet Dissolve 1 tablet under the tongue every 5 minutes as needed. - Fenofibrate (LOFIB (more content not included)... Normal [facility] CNOV Office Visit (OTATOM ) INÉS SHANKS ([id number]) 1965 F [facility] Date Time Provider Department 12/25/23 9:30 AM JOSE MIR During your visit today, we recorded the following information about you: Jose Mir, AUD 12/25/2023 10:21 AM Signed [facility] [place] [place] AUDIOLOGIC EVALUATION REPORT Name: Inés Shanks [facility]#: [id number] Date of Service: 12/25/2023 Date of : 1965 Age: [age] year old Referred by: Dru Collado MD Referred for: Evaluation of suspected change in hearing, tinnitus, or balance. Referral documented: In an order in [facility] Patient's major complaints: Hearing loss: asking for repetition a lot. Feels like she's missing 50% of what is said. Speech on the phone is not clear. When in a group just sounds like a bunch of bees in her ears This has been gradually happening. Feels like she has more difficulty hearing from her right ear more than the left. Lean in with right ear to listen. Tinnitus: ringing, AU Ear pain: denied Aural fullness: denied Otorrhea: denied History of ear infections: OM as a child - no tubes or surgery History of otologic surgeries: denied Dizziness: intermittent-episodic off balance feeling. Lightheaded if she gets up quickly. When light headed gets dizzy like the room is moving. 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 Other concerns: Hearing tested in her 20s and was WNL at that time. Has a lot of headaches-takes migraine medication Inés A Workman was seen for an initial audiologic evaluation. See SmartForm Audiogram for additional reported history and symptoms. Risk of Falls Documentation for over 65 years old: Does not apply IMPRESSIONS RIGHT EAR: Sensorineural hearing loss LEFT EAR: Sensorineural hearing loss AUDIOLOGIC EVALUATION Following is a brief interpretation of the obtained findings from the audiologic evaluation. Refer to the Auditory Test Record for complete audiometric results. The patient was counseled about the test findings and appropriate audiologic recommendations were made. SUMMARY: Audiogram can be viewed under Forms/Audiology/Joobili. OTOSCOPY RIGHT EAR: Otoscopic inspection revealed ear canal was clear with an identifiable cone of light. LEFT EAR: Otoscopic inspection revealed ear canal was clear with an identifiable cone of light. TYMPANOMETRY Description of procedure: This test is an objective evaluation of middle ear function. CPT code: 24441 RIGHT EAR: Did not test. LEFT EAR: Did not test. ACOUSTIC REFLEXES Description of procedure: This test is an objective measure of auditory and facial nerve pathways. CPT code: 07437, 78922 RIGHT EAR PROBE EAR: (ipsi right stimulus ear; contralateral left stimulus ear): Acoustic Reflex Pattern Did not test Acoustic Reflex Decay (left stimulus ear): Did not test. LEFT EAR PROBE EAR: (ipsi left stimulus ear; contralateral right stimulus ear): Acoustic Reflex Pattern Did not test Acoustic Reflex Decay (right stimulus ear):Did not test. PURE TONE AUDIOMETRY AND SPEECH TESTING Description of procedure: This test is an objective evaluation hearing sensitivity via air and bone conduction and speech recognition testing. CPT code:32578 RIGHT EAR: Hearing Sensitivity: Mild SNHL Word Recognition Score: Excellent (90-100%). WRS is consistent with hearing sensitivity. Words were presented at 65 dB HL is above (greater than or equal to 60 dB HL) intensity level for average conversational speech. The NU-6 Ordered by Difficulty Word List (10 words) was used for testing. LEFT EAR: Hearing Sensitivity: Mild sloping to moderate SNHL Word Recognition Score: Excellent (90-100%). WRS is consistent with hearing sensitivity. Words were presented at 65 dB HL which is above (greater than or equal to 60 dB HL) intensity level for average conversational speech. The NU-6 Ordered by Difficulty Word List (10 words) was used for testing. RECOMMENDATIONS * Continue medical follow-up with Dru Collado MD. * The patient was counseled regarding the need to continue to monitor hearing and have regular hearing assessments. * The patient was counseled regarding effective communication strategies to enhance communication ability. * Provided patient with list of sites that provide hearing aids for individuals who have Medicaid. Corby Maurice, [facility] [employer] Furn[employer]ender copied to: Dru Collado MD ROJO Abbrev- iation Definition Degree of hearing sensitivity dB range WNL within normal limits WNL 0 - 20 SNHL sensorineural hearing loss Mild 20-40 CHL conductive hearing loss Moderate 40-55 MHL mixed hearing (more content not included)... Normal [facility] HEARING TEST/AUDIOGRAMon [facility] CBC W Auto Differential pane l (Bld)on 11-11-2023 Basophils (Bld) [#/Vol] 0.03 10*3/uL Normal <0.11 [facility] Comment on above: Order Comment: Speci men Type: BLOOD SPECIMENOrdering Facility: [facility] Address: [address] [place] [address] Performed By: #### 5 7021-8 ####[facility] LABCLIA [id number] [place] [address] [place] Basophils/100 WBC (Bld) 0.5 % Normal [facility] Comment on above: Order Comment: Speci men Type: BLOOD SPECIMENOrdering Facility: [facility] Address: [address] [place] [address] Performed By: #### 5 7021-8 ####[facility] LABCLIA [id number] [place] [address] [place] Differential cell count method Nom (Bld) Auto Normal [facility] Comment on above: Order Comment: Speci men Type: BLOOD SPECIMENOrdering Facility: [facility] Address: [address] [place] [address] Performed By: #### 5 7021-8 ####[facility] LABCLIA [id number] [place] [address] [place] Eosinophils (Bld) [#/Vol] 0.10 10*3/uL Normal <0.46 [facility] Comment on above: Order Comment: Speci men Type: BLOOD SPECIMENOrdering Facility: [facility] Address: [address] [place] [address] Performed By: #### 5 7021-8 ####[facility] LABCLIA [id number] [place] [address] [place] Eosinophils/100 WBC (Bld) 1.5 % Normal [facility] Comment on above: Order Comment: Speci men Type: BLOOD SPECIMENOrdering Facility: [facility] Address: [address] [place] [address] Performed By: #### 5 7021-8 ####[facility] LABCLIA [id number] [place] [address] [place] Erythrocyte distribution width (RBC) [Ratio] 12.9 % Normal 11.5-15.0 [facility] Comment on above: Order Comment: Speci men Type: BLOOD SPECIMENOrdering Facility: [facility] Address: [address] [place] [address] Performed By: #### 5 7021-8 ####[facility] LABCLIA [id number] [place] [address] [place] Hematocrit (Bld) [Volume fraction] 39.0 % Normal 36.0-46.0 [facility] Comment on above: Order Comment: Speci men Type: BLOOD SPECIMENOrdering Facility: [facility] Address: [address] [place] [address] Performed By: #### 5 7021-8 ####[facility] LABCLIA [id number] [place] [address] [place] Hemoglobin (Bld) [Mass/Vol] 12.3 g/dL Normal 11.5-15.5 [facility] Comment on above: Order Comment: Speci men Type: BLOOD SPECIMENOrdering Facility: [facility] Address: [address] [place] [address] Performed By: #### 5 7021-8 ####[facility] LABCLIA [id number] [place] [address] [place] Immature granulocytes (Bld) [#/Vol] 10*3/uL Normal <0.10 [facility] Comment on above: Order Comment: Speci men Type: BLOOD SPECIMENOrdering Facility: [facility] Address: [address] [place] [address] Performed By: #### 5 7021-8 ####[facility] LABCLIA [id number] [place] [address] [place] Immature granulocytes/100 WBC (Bld) 0.3 % Normal [facility] Comment on above: Order Comment: Speci men Type: BLOOD SPECIMENOrdering Facility: [facility] Address: [address] [place] [address] Performed By: #### 5 7021-8 ####[facility] LABCLIA [id number] [place] [address] [place] Lymphocytes (Bld) [#/Vol] 1.88 10*3/uL Normal 1.00-4.00 [facility] Comment on above: Order Comment: Speci men Type: BLOOD SPECIMENOrdering Facility: [facility] Address: [address] [place] [address] Performed By: #### 5 7021-8 ####[facility] LABCLIA [id number] [place] [address] [place] Lymphocytes/100 WBC (Bld) 28.6 % Normal [facility] Comment on above: Order Comment: Speci men Type: BLOOD SPECIMENOrdering Facility: [facility] Address: [address] [place] [address] Performed By: #### 5 7021-8 ####[facility] LABCLIA [id number] [place] [address] [place] MCH (RBC) [Entitic mass] 28.7 pg Normal 26.0-34.0 [facility] Comment on above: Order Comment: Speci men Type: BLOOD SPECIMENOrdering Facility: [facility] Address: [address] [place] [address] Performed By: #### 5 7021-8 ####[facility] LABCLIA [id number] [place] [address] [place] MCHC (RBC) [Mass/Vol] 31.5 g/dL Normal 30.5-36.0 [facility] Comment on above: Order Comment: Speci men Type: BLOOD SPECIMENOrdering Facility: [facility] Address: [address] [place] [address] Performed By: #### 5 7021-8 ####[facility] LABCLIA [id number] [place] [address] [place] MCV (RBC) [Entitic vol] 91.1 fL Normal 80.0-100.0 [facility] Comment on above: Order Comment: Speci men Type: BLOOD SPECIMENOrdering Facility: [facility] Address: [address] [place] [address] Performed By: #### 5 7021-8 ####[facility] LABCLIA [id number] [place] [address] [place] Monocytes (Bld) [#/Vol] 0.32 10*3/uL Normal <0.87 [facility] Comment on above: Order Comment: Speci men Type: BLOOD SPECIMENOrdering Facility: [facility] Address: [address] [place] [address] Performed By: #### 5 7021-8 ####[facility] LABCLIA [id number] [place] [address] [place] Monocytes/100 WBC (Bld) 4.9 % Normal [facility] Comment on above: Order Comment: Speci men Type: BLOOD SPECIMENOrdering Facility: [facility] Address: [address] [place] [address] Performed By: #### 5 7021-8 ####[facility] LABCLIA [id number] [place] [address] [place] Neutrophils (Bld) [#/Vol] 4.23 10*3/uL Normal 1.45-7.50 [facility] Comment on above: Order Comment: Speci men Type: BLOOD SPECIMENOrdering Facility: [facility] Address: [address] [place] [address] Performed By: #### 5 7021-8 ####[facility] LABCLIA [id number] [place] [address] [place] Neutrophils/100 WBC (Bld) 64.2 % Normal [facility] Comment on above: Order Comment: Speci men Type: BLOOD SPECIMENOrdering Facility: [facility] Address: [address] [place] [address] Performed By: #### 5 7021-8 ####[facility] LABCLIA [id number] [place] [address] [place] Nucleated RBC (Bld) [#/Vol] 10*3/uL Normal <0.01 [facility] Comment on above: Order Comment: Speci men Type: BLOOD SPECIMENOrdering Facility: [facility] Address: [address] [place] [address] Performed By: #### 5 7021-8 ####[facility] LABCLIA [id number] [place] [address] [place] Nucleated RBC/100 WBC (Bld) [Ratio] 0.0 /100 WBC Normal [facility] Comment on above: Order Comment: Speci men Type: BLOOD SPECIMENOrdering Facility: [facility] Address: [address] [place] [address] Performed By: #### 5 7021-8 ####[facility] LABIA [id number] [place] [address] [place] Platelet mean volume (Bld) [Entitic vol] 11.6 fL Normal 9.0-12.7 [facility] Comment on above: Order Comment: Speci men Type: BLOOD SPECIMENOrdering Facility: [facility] Address: [address] [place] [address] Performed By: #### 5 7021-8 ####[facility] LABIA [id number] [place] [address] [place] Platelets (Bld) [#/Vol] 209 10*3/uL Normal 150-400 [facility] Comment on above: Order Comment: Speci men Type: BLOOD SPECIMENOrdering Facility: [facility] Address: [address] [place] [address] Result Comment: No c lot detected. Performed By: #### 5 7021-8 ####[facility] LABCLIA [id number] [place] [address] [place] RBC (Bld) [#/Vol] 4.28 10*6/uL Normal 3.90-5.20 [facility] Comment on above: Order Comment: Speci men Type: BLOOD SPECIMENOrdering Facility: [facility] Address: [address] [place] [address] Performed By: #### 5 7021-8 ####[facility] LABCLIA [id number] [place] [address] [place] WBC (Bld) [#/Vol] 6.58 10*3/uL Normal 3.70-11.00 [facility] Comment on above: Order Comment: Speci men Type: BLOOD SPECIMENOrdering Facility: [facility] Address: [address] [place] [address] Performed By: #### 5 7021-8 ####[facility] LABCLIA [id number] [address] [place] CNOVon 11-11-2023 CNOV [facility] INÉS SHANKS ([id number]) 1965 F FNS Date Time Provider Department 11/11/23 10:00 AM SAUMYA VARGAS [facility] During your visit today, we recorded the following information about you: Pulse Respiration Blood pressure Weight 66/minute 16/minute 120/72 96.6 kg Saumya Vargas APRN.[facility] 11/11/2023 2:38 PM Signed This is a 58 year old female who presents today with: Patient presents with: 6 Month Exam HISTORY OF PRESENT ILLNESS: Inés Shanks is a 58 year old female. Patient presents with: 6 Month Exam Pt presents today for 6 month follow-up. Fibromyagia/neuropathy Takes gabapentin 900 mg three times daily. Refers has been on this dosage for years. This has been keeping symptoms controlled/manageable. KRZYSZTOF Not using cpap. HTN: Patient is compliant with meds Yes Monitors bp at home: No. Denies side effects: No. Chest pain: occ when she gets very angry. Dyspnea: Yes - gets winded if she has to walk very far. Edema: occasionally. Palpitations: intermittently -- will be short duration. Syncope: No. Headache: Yes - I always have headaches. States the headache medication helps. Dizziness: intermittently -- usually when she gets up out of bed. Essential tremors. Follows with neurology. Refers that the sinemet helps to reduce the tremors. Barretts: Takes PPI. Last EGD 03/14. Mood: Has been pretty good. Will get frustrated at times. DM: Reports overall feeling well. Medication side effects: some occ GI upset -- usually the day after shot. . Home sugar checks: no Hypoglycemic spells: there was one time that she felt weak which improved with eating. Watching diet: tries to stay away from sugar. Unexpected weight loss: No. Polyuria, polydipsia: not different than normal. Vision Changes: told left eye is worse. . Foot lesions or numbness or pain: Yes. HYPERLIPIDEMIA: Patient is taking medications: Yes. Patient is watching diet: Yes. Patient denies myalgias: Yes. Patient denies gi upset: Yes HYPOTHYROID: Patient is compliant with medications: Yes Patient has changes in energy: No Patient has changes in hair or skin: hair is thinning. Patient has temperature intolerance: heat intolerant. Patient has weight changes: lost weight d/t ozempic. PAST MEDICAL HISTORY: PAST MEDICAL HISTORY No date: Anxiety No date: Powers's esophagus No date: Bipolar 1 disorder (HCC) Comment: Dr. Orozco, psychiatry No date: Chronic headaches No date: Coronary-myocardial bridge No date: DDD (degenerative disc disease) 01/05/2015: Depression No date: Essential tremor Comment: TK tremor No date: Fibromyalgia No date: GERD (gastroesophageal reflux disease) No date: HTN (hypertension) No date: Hyperlipidemia No date: Hypothyroid No date: Liver fibrosis 08/22/2019: Mild CAD No date: Neuropathy 03/08/2021: Non-melanoma skin cancer No date: Obstructive sleep apnea No date: PTSD (post-traumatic stress disorder) No date: PVD (peripheral vascular disease) (HCC) No date: Sciatica No date: Shoulder injury No date: Type II or unspecified type diabetes mellitus without mention of complication, not stated as uncontrolled PAST SURGICAL HISTORY 01/10/2015: COLONOSCOPY FLX DX W/COLLJ SPEC WHEN PFRMD Comment: Colonoscopy 03/12/2023: COLONOSCOPY SCREENING Comment: 5 year colonoscopy screening recommended due 03/22/2028 05/21/2018: DIAGNOSTIC ARTHROSCOPY SHOULDER +- SYNOVIAL BX; Left Comment: Left shoulder arthroscopic subacromial decompression, open distal clavicle excision and manipulation under anesthesia 2019: EGD 2008: ENDOMETRIAL ABLATION WITH US GUIDANCE 01/10/2015: ESOPHAGOGASTRODUODENOSCOPY TRANSORAL DIAGNOSTIC Comment: EGD 01/10/2016: ESOPHAGOGASTRODUODENOSCOPY TRANSORAL DIAGNOSTIC Comment: EGD (MAC) 03/2016: GASTRIC BYPASS HX Comment: gastric sleeve 05/16/2020: HYSTERECTOMY, REVISE VAGINA; COLPECTOMY No date: INJECTION Comment: back injections x3 05/2020: PAST SURGICAL HISTORY OF Comment: Partial Hysterectomy w/ bladder sling 1988: TUBAL LIGATION HX ALLERGIES Cat Hair Standardized Allergenic Extract, Cats, Citric Acid, Mold Spores, and Zolpidem MEDICATIONS Current Outpatient Medications Medication Sig gabapentin (NEURONTIN) 300 mg capsule Take 1 capsule by mouth three times a day for 90 days. rosuvastatin (CRESTOR) 5 mg tablet Take 1 tablet by mouth daily at bedtime. Cetirizine (ZYRTEC) 10 mg cap Take 1 capsule by mouth once daily. blood sugar diagnostic (FREESTYLE LITE STRIPS) test strip Test blood sugar(s) once times daily. Dx: E11.40 Blood-Glucose Meter (FREESTYLE LITE METER) monitoring kit Freestyle LITE Meter Kit -Test blood sugars one time daily. DX E11.40 Lancets Test blood sugar(s) one time daily. Dx: Other DM Code E11.40 Insulin: No semaglutide (OZEMPIC) 0.25 mg or 0.5 mg (2 mg/3 mL) pen Inje (more content not included)... Normal [facility] Comprehensive metabolic 2000 panelon 11-11-2023 Albumin [Mass/Vol] 4.2 g/dL Normal 3.9-4.9 [facility] Comment on above: Order Comment: Speci men Type: BLOOD SPECIMENOrdering Facility: [facility] Address: [address] [place] [address] Performed By: #### 2 4323-8, 87014-7, 88967-2, 3016-3 ####[facility] LABCLIA [id number] [place] [address] [place] ALP [Catalytic activity/Vol] 40 U/L Normal 34-123 [facility] Comment on above: Order Comment: Speci men Type: BLOOD SPECIMENOrdering Facility: [facility] Address: [address] [place] [address] Performed By: #### 2 4323-8, 37110-9, 44778-2, 3016-3 ####[facility] LABCLIA [id number] [place] [address] [place] ALT [Catalytic activity/Vol] 12 U/L Normal 7-38 [facility] Comment on above: Order Comment: Speci men Type: BLOOD SPECIMENOrdering Facility: [facility] Address: [address] [place] [address] Performed By: #### 2 4323-8, 39576-4, 49686-7, 3016-3 ####[facility] LABCLIA [id number] [place] [address] [place] Anion gap [Moles/Vol] 12 mmol/L Normal 8-15 [facility] Comment on above: Order Comment: Speci men Type: BLOOD SPECIMENOrdering Facility: [facility] Address: [address] [place] [address] Performed By: #### 2 4323-8, 82549-0, 44309-4, 3016-3 ####[facility] LABCLIA [id number] [place] [address] [place] AST [Catalytic activity/Vol] 22 U/L Normal 13-35 [facility] Comment on above: Order Comment: Speci men Type: BLOOD SPECIMENOrdering Facility: [facility] Address: [address] [place] [address] Performed By: #### 2 4323-8, 52832-0, 82997-9, 3016-3 ####[facility] LABCLIA [id number] [address] [address] [place] Bilirubin [Mass/Vol] 0.4 mg/dL Normal 0.2-1.3 [facility] Comment on above: Order Comment: Speci men Type: BLOOD SPECIMENOrdering Facility: [facility] Address: [address] [place] [address] Performed By: #### 2 4323-8, 83590-7, 57833-0, 3016-3 ####[facility] LABCLIA [id number] [place] [address] [place] Calcium [Mass/Vol] 9.7 mg/dL Normal 8.5-10.2 [facility] Comment on above: Order Comment: Speci men Type: BLOOD SPECIMENOrdering Facility: [facility] Address: [address] [place] [address] Performed By: #### 2 4323-8, 72279-4, 49773-9, 3016-3 ####[facility] LABCLIA [id number] [place] [address] [place] Chloride [Moles/Vol] 105 mmol/L Normal 98-107 [facility] Comment on above: Order Comment: Speci men Type: BLOOD SPECIMENOrdering Facility: [facility] Address: [address] [place] [address] Performed By: #### 2 4323-8, 69261-8, 20002-7, 3016-3 ####[facility] LABCLIA [id number] [place] [address] [place] CO2 [Moles/Vol] 23 mmol/L Normal 22-30 [facility] Comment on above: Order Comment: Speci men Type: BLOOD SPECIMENOrdering Facility: [facility] Address: [address] [place], [place] [address] Performed By: #### 2 4323-8, 28145-6, 86546-1, 3016-3 ####[facility] LABIA [id number] [place] [address] [place] Creatinine [Mass/Vol] 1.13 mg/dL High 0.58-0.96 [facility] Comment on above: Order Comment: Henry men Type: BLOOD SPECIMENOrdering Facility: [facility] Address: [address] [place] [address] Performed By: #### 2 4323-8, 78628-1, 65845-3, 6-3 ####[facility] [id number] [place] [address] [place] Creatinine and Glomerular filtration rate.predicted panel (S/P/Bld) 56 mL/min/1.73m??? Low >=60 [facility] Comment on above: Order Comment: Henry johnson Type: BLOOD SPECIMENOrdering Facility: [facility] Address: [address] [place] [address] Result Comment: Devika mated Glomerular Filtration Rate (eGFR) is calculated using the 2020 CKD-EPI creatinine equation. This equation utilizes serum creatinine, sex, and age as parameters. The creatinine assay has traceable calibration to isotope dilution-mass spectrometry. Refer to KDIGO guidelines for clinical interpretation. In patients with unstable renal function, e.g. those with acute kidney injury, the eGFR may not accurately reflect actual GFR. Performed By: #### 2 4323-8, 82539-7, 15127-3, 6-3 ####[facility] [id number] [place] [id number] [place] Glucose [Mass/Vol] 89 mg/dL Normal 74-99 [facility] Comment on above: Order Comment: Henry johnson Type: BLOOD SPECIMENOrdering Facility: [facility] Address: [address] [place] [address] Result Comment: The [place] Diabetes Association (ADA) provides guidance for cutoff values for fasting glucose and random glucose. The ADA defines fasting as no caloric intake for at least 8 hours. Fasting plasma glucose results between 100 to 125 mg/dL indicate increased risk for diabetes (prediabetes). Fasting plasma glucose results greater than or equal to 126 mg/dL meet the criteria for diagnosis of diabetes. In the absence of unequivocal hyperglycemia, results should be confirmed by repeat testing. In a patient with classic symptoms of hyperglycemia or hyperglycemic crisis, random plasma glucose results greater than or equal to 200 mg/dL meet the criteria for diagnosis of diabetes. Reference: Standards of Medical Care in Diabetes 2016, [place] [employer] Association. Diabetes Care. 2016.39(Suppl 1). Performed By: #### 2 4323-8, 12863-4, 89020-9, 3016-3 ####[facility] LABCLIA [id number] [place] [address] [place] Potassium [Moles/Vol] 5.1 mmol/L Normal 3.7-5.1 [facility] Comment on above: Order Comment: Speci men Type: BLOOD SPECIMENOrdering Facility: [facility] Address: [address] [place] [address] Performed By: #### 2 4323-8, 87423-2, 09692-2, 3016-3 ####[facility] LABIA [id number] [place] [address] [place] Protein [Mass/Vol] 6.9 g/dL Normal 6.3-8.0 [facility] Comment on above: Order Comment: Speci men Type: BLOOD SPECIMENOrdering Facility: [facility] Address: [address] [place] [address] Performed By: #### 2 4323-8, 51402-3, 92993-4, 3016-3 ####[facility] LABCLIA [id number] [place] [address] [place] Sodium [Moles/Vol] 140 mmol/L Normal 136-144 [facility] Comment on above: Order Comment: Speci men Type: BLOOD SPECIMENOrdering Facility: [facility] Address: [address] [place] [address] Performed By: #### 2 4323-8, 99960-9, 24076-5, 3016-3 ####[facility] LABCLIA [id number] [place] [address] [place] Urea nitrogen [Mass/Vol] 18 mg/dL Normal - [facility] Comment on above: Order Comment: Speci men Type: BLOOD SPECIMENOrdering Facility: [facility] Address: [address] [place] [address] Performed By: #### 2 4323-8, 12742-1, 09374-5, 3016-3 ####[facility] LABIA [id number] [place] [address] [place] Folate SerPl-mCncon 11-11-19 24 Folate [Mass/Vol] 18.5 ng/mL Normal >4.7 [facility] Comment on above: Order Comment: Speci men Type: BLOOD SPECIMENOrdering Facility: [facility] Address: [address] [place] [address] Performed By: #### 2 284-8, 2132-9 ####[facility] LABCLIA [id number] [place] [address] [place] HbA1c (Bld)on 11-11-2023 Average glucose Estimated from glycated hemoglobin (Bld) [Mass/Vol] 108 mg/dL Normal [facility] Comment on above: Order Comment: Speci men Type: BLOOD SPECIMENOrdering Facility: [facility] Address: [address] [place] [address] Result Comment: eAG: (Estimated average glucose) is a calculated value from HgbA1c and is mechanical service representative of the average blood glucose level in the last 2-3 month period. Performed By: #### 5 5454-3 ####[facility] LABCLIA [id number] [place] [address] [place] HbA1c (Bld) [Mass fraction] 5.4 % Normal 4.3-5.6 [facility] Comment on above: Order Comment: Speci men Type: BLOOD SPECIMENOrdering Facility: [facility] Address: [address] [place] [address] Result Comment: [place] Diabetes Association guidelines indicate that patients with HgbA1c in the range 5.7-6.4% are at increased risk for development of diabetes, and intervention by lifestyle modification may be beneficial. HgbA1c greater or equal to 6.5% is considered diagnostic of diabetes. Performed By: #### 5 5454-3 ####[facility] LABCLIA [id number] [place] [id number] [place] Iron and Iron binding capaci ty panelon 11-11-2023 Iron [Mass/Vol] 82 ug/dL Normal 41-186 [facility] Comment on above: Order Comment: Speci men Type: BLOOD SPECIMENOrdering Facility: [facility] Address: [address] [place] [address] Performed By: #### 2 4323-8, 46334-8, 41169-6, 3016-3 ####[facility] LABIA [id number] [place] [id number] [place] Iron binding capacity [Mass/Vol] 264 ug/dL Normal 232-386 [facility] Comment on above: Order Comment: Speci men Type: BLOOD SPECIMENOrdering Facility: [facility] Address: [address] [place] [address] Performed By: #### 2 4323-8, 51616-9, 42606-8, 3016-3 ####[facility] LABIA [id number] [address] [address] [place] Iron/TIBC [Molar ratio] 31.1 % Normal 15.0-57.0 [facility] Comment on above: Order Comment: Speci men Type: BLOOD SPECIMENOrdering Facility: [facility] Address: [address] [place] [address] Performed By: #### 2 4323-8, 91507-9, 61011-3, 6-3 ####[facility] LABCLIA [id number] [address] [address] [place] Lipid 1996 panelon 4 Cholesterol [Mass/Vol] 181 mg/dL Normal <200 [facility] Comment on above: Order Comment: Speci men Type: BLOOD SPECIMENOrdering Facility: [facility] Address: [address] [place] [address] Result Comment: <200 mg/dL, Desirable 200-239 mg/dL, Borderline high >239 mg/dL, High Performed By: #### 2 4323-8, 19438-3, 33253-6, 6-3 ####[facility] LABCLIA [id number] [place] [address] [place] Cholesterol in HDL [Mass/Vol] 41 mg/dL Normal >39 [facility] Comment on above: Order Comment: Speci men Type: BLOOD SPECIMENOrdering Facility: [facility] Address: [address] [place] [address] Result Comment: 40-5 9 mg/dL, Acceptable >59 mg/dL, High: Negative risk factor for coronary heart disease <40 mg/dL, Low: Positive risk factor for coronary heart disease Performed By: #### 2 4323-8, 14252-1, 73777-5, 3016-3 ####[facility] LABCLIA [id number] [place] [id number] [place] Cholesterol in LDL [Mass/Vol] 97 mg/dL Normal <100 [facility] Comment on above: Order Comment: Speci men Type: BLOOD SPECIMENOrdering Facility: [facility] Address: [address] [place] [address] Result Comment: <100 mg/dL, Optimal 100-129 mg/dL, Near optimal/above optimal 130-159 mg/dL, Borderline high 160-189 mg/dL, High >189 mg/dL, Very high Secondary prevention optimal LDL Cholesterol levels are recommended to be < 70 mg/dL Performed By: #### 2 4323-8, 37139-4, 93533-2, 3016-3 ####[facility] LABCLIA [id number] [place] [address] [place] Cholesterol in LDL/Cholesterol in HDL [Mass ratio] 2.37 {ratio} Normal <2.54 [facility] Comment on above: Order Comment: Speci men Type: BLOOD SPECIMENOrdering Facility: [facility] Address: [address] [place] [address] Result Comment: Mk goldberg: 1. National Cholesterol Education Program ATP III Guideline At-A-Glance Quick Desk Reference: National Heart, Lung, and Blood [place]. National Institutes of Health. 2001: NIH Publication No. 01-3305. 2. An International Atherosclerosis Society position paper: global recommendations for the management of dyslipidemia: executive summary, Atherosclerosis. 2014: 232(2):410-413. Performed By: #### 2 4323-8, 31572-5, 33776-3, 3016-3 ####[facility] LABCLIA [id number] [place] [address] [place] Cholesterol in VLDL [Mass/Vol] 43 mg/dL High <30 [facility] Comment on above: Order Comment: Speci men Type: BLOOD SPECIMENOrdering Facility: [facility] Address: [address] [place] [address] Performed By: #### 2 4323-8, 50555-7, 01460-2, 3016-3 ####[facility] LABCLIA [id number] [place] [address] [place] Cholesterol non HDL [Mass/Vol] 140 mg/dL High <130 [facility] Comment on above: Order Comment: Speci men Type: BLOOD SPECIMENOrdering Facility: [facility] Address: [address] [place] [address] Result Comment: <130 mg/dL, Optimal 130-159 mg/dL, Near optimal/above optimal 160-189 mg/dL, Borderline high 190-219 mg/dL, High >219 mg/dL, Very high Secondary prevention optimal non HDL Cholesterol levels are recommended to be <100 mg/dL Performed By: #### 2 4323-8, 49221-2, 36122-6, 6-3 ####[facility] LABCLIA [id number] [place] [address] [place] Cholesterol.total/C holesterol in HDL [Mass ratio] 4.41 {ratio} Normal <5.10 [facility] Comment on above: Order Comment: Speci men Type: BLOOD SPECIMENOrdering Facility: [facility] Address: [address] [place] [address] Performed By: #### 2 4323-8, 61680-0, 88998-0, 3015-3 ####[facility] LABIA [id number] [place] [address] [place] FASTING TIME 12 hrs Normal [facility] Comment on above: Order Comment: Speci men Type: BLOOD SPECIMENOrdering Facility: [facility] Address: [address] [place] [address] Performed By: #### 2 4323-8, 54017-8, 77484-4, 6-3 ####[facility] LABIA [id number] [place] [address] [place] Triglyceride [Mass/Vol] 217 mg/dL High <150 [facility] Comment on above: Order Comment: Speci men Type: BLOOD SPECIMENOrdering Facility: [facility] Address: [address] [place] [address] Result Comment: <150 mg/dL, Normal 150-199 mg/dL, Borderline high 200-499 mg/dL, High >499 mg/dL, Very high Performed By: #### 2 4323-8, 11426-1, 86938-3, 3016-3 ####[facility] LABCLIA [id number] [place] [id number] [place] TSH SerPl-aCncon 11-11-2023 TSH Qn 0.800 m[IU]/L Normal 0.270-4.200 [facility] Comment on above: Order Comment: Speci men Type: BLOOD SPECIMENOrdering Facility: [facility] Address: [address] [place] [address] Performed By: #### 2 4323-8, 57428-1, 60658-3, 3016-3 ####[facility] LABIA [id number] [place] [address] [place] VITAMIN B1 (THIAMINE), WHOLE BLOODon 11-11-2023 Thiamine (Bld) [Moles/Vol] 111.4 nmol/L Normal 84.3-213.3 [facility] Comment on above: Order Comment: Speci men Type: BLOOD SPECIMENOrdering Facility: [facility] Address: [address] [place] [address] Result Comment: This assay measures the concentration of thiamine diphosphate (TDP), the primary active form of vitamin B1. Approximately 90 percent of vitamin B1 present in whole blood is TDP. Thiamine and thiamine monophosphate, which comprise the remaining 10 percent, are not measured. This test was developed and its performance characteristics determined by [facility] [place] ([facility]). It has not been cleared or approved by the FDA. -[facility] is regulated under CLIA as qualified to perform high-complexity testing. This test is used for clinical purposes. It should not be regarded as investigational or for research. Performed By: #### B 1WB ####[facility] LABIA [id number] [place] [address] [place] Vit B12 SerPl-mCncon 024 Cobalamin (Vitamin B12) [Mass/Vol] 772 pg/mL Normal 232-1245 [facility] Comment on above: Order Comment: Speci men Type: BLOOD SPECIMENOrdering Facility: [facility] Address: [address] [place] [address] Performed By: #### 2 284-8, 2132-9 ####[facility] LABIA [id number] [place] [address] [facility] CNOVon 07-24-2023 CNOV Office Visit ([facility] ) INÉS SHANKS ([id number]) 1965 F [facility] Date Time Provider Department 07/24/23 10:00 AM [facility] During your visit today, we recorded the following information about you: Pulse Blood pressure Weight Height 64/minute 130/72 112 kg 1.702 m Santhosh Holden MD 07/24/2023 10:38 AM Signed Patient presents with: Sleep Apnea HPI: Patient presents today for office visit for [id number] for replacement CPAP machine. KRZYSZTOF: Has not been using her Auto PAP for quite awhile. Refers to it falling off her night stand one too many times and no longer works. Not sure on time frame. She's thinking maybe months but is not sure Snoring is very loud. Refers to waking herself due to snoring and choking. Wakes up often through the night. Does not feel rested when she wakes up. Refers to feeling groggy Mentions lots of times she wakes up with a headache. Does have daytime fatigue. Typically takes a 2hr nap everyday. Last sleep study 12/27/14. Using [employer] Discussed glp 1 Discussed weight loss. Is not wanting to take if it does not boost her metabolism. No chest pain or shortness of breath. MEDICATIONS: Current Outpatient Medications Medication Sig lurasidone (LATUDA) 20 mg tablet take 1 tablet by mouth once daily with supper loratadine (CLARITIN) 10 mg tablet Take 10 mg by mouth once daily. prochlorperazine (COMPAZINE) 10 mg tablet Take 1 tablet by mouth two times a day as needed (migraine). ferrous sulfate 325 mg (65 mg iron) tablet Take 1 tablet by mouth two times a day with meals. carboxymethylcellulose (REFRESH CELLUVISC) 1 % ophthalmic solution Use 1 Drop in both eyes daily at bedtime. gabapentin (NEURONTIN) 600 mg tablet Take 1 tablet by mouth three times a day for 180 days. metoprolol succinate ER (TOPROL XL) 25 mg 24 hr tablet Take 1 tablet by mouth once daily. gabapentin (NEURONTIN) 300 mg capsule Take 1 capsule by mouth three times a day for [address] (PROTONIX) 40 mg tablet Take 1 tablet by mouth two times a day. lisinopril (ZESTRIL) 5 mg tablet Take 1 tablet by mouth once daily. carbidopa-levodopa (SINEMET) 25-100 mg per tablet Take 1 tablet by mouth three times a day. thyroid, pork, (ARMOUR THYROID) 60 mg tablet Take 1 tablet by mouth two times a day. rosuvastatin (CRESTOR) 5 mg tablet Take 1 tablet by mouth daily at bedtime. metFORMIN ER (GLUCOPHAGE XR) 500 mg 24 hr tablet Take 3 tablets by mouth daily with breakfast. lamoTRIgine (LAMICTAL) 200 mg tablet Take 1 tablet by mouth two times a day. nitroglycerin sublingual (NITROQUICK) 0.3 mg SL tablet Dissolve 1 tablet under the tongue every 5 minutes as needed. Fenofibrate (LOFIBRA) 54 mg tablet Take 1 tablet by mouth once daily. PEG 400-propylene glycol (SYSTANE ULTRA) 0.4-0.3 % ophthalmic solution Use 1 Drop in both eyes twice daily. ondansetron (ZOFRAN) 4 mg tablet Take 1 tablet by mouth once daily as needed. VYVANSE 20 mg capsule 40 mg. Aluminum Hydrox-Magnesium Carb (GAVISCON EXTRA STRENGTH) 254-237.5 mg/5 mL susp Take 15 mL by mouth at bedtime as needed. Blood-Glucose Meter (FREESTYLE LITE METER) monitoring kit Freestyle LITE Meter Kit -Test blood sugars one time daily. DX E11.40 blood sugar diagnostic (FREESTYLE LITE STRIPS) test strip Test blood sugar(s) once times daily. Dx: E11.40 Lancets lancets Test blood sugar(s) one time daily. Dx: Other DM Code E11.40 Insulin: No acetaminophen (TYLENOL EXTRA STRENGTH) 500 mg tablet Take 2 tablets by mouth every 8 hours as needed for Pain. COMPOUNDED PRESCRIPTION Initiate AutoPAP @ 10-20 cm of water with humidification mask (per patient preference) optional chin strap (if indicated) and lifetime supplies ([facility] transfer) DX: KRZYSZTOF G47.33 multivit with minerals/lutein (MULTIVITAMIN 50 PLUS ORAL) Take 1 tablet by mouth once daily. COMPOUNDED PRESCRIPTION Diabetic shoes One pair CPAP CPAP with humidification. Mask (per patient preference) optional chin strap (if indicated) , filters, tubing, humidifier and lifetime supplies. clonazePAM (KLONOPIN) 1 mg tablet 1 mg three times daily. vortioxetine (TRINTELLIX) 20 mg tablet Take 1 tablet by mouth once daily. aspirin 81 mg chewable tablet Take 1 tablet by mouth once daily. CPAP Please provide supplies. Mask per preference, tubing, filters, humidity. Lifetime Supplies. Dx: G47.33 COMPOUNDED PRESCRIPTION Lightweight wheelchair DX: DDD, neuropathy Wheel Chair issac DX: debility COMPOUNDED PRESCRIPTION EX-LARGE BLOOD PRESSURE CUFF KIT DX I10 Blood Pressure Test Kit-Large (QUICK RESPONSE BP MONITOR) kit 1 Kit once daily. buPROPion HCl 200 mg 12 hr tablet Take 200 mg by mouth twice daily. No current facility-administered medications for this visit. ALLERGIES: ALLERGIES Allergen Reactions Cat Hair Standardiz* Itching Eyes get really red, if cat is too cl (more content not included)... Normal [facility] CNOVon 07-03-2023 CNOV Office Visit ([facility] ) INÉS SHANKS ([id number]) 1965 F S Date Time Provider Department 07/03/23 3:30 PM JOVANNA PRINCE [facility] During your visit today, we recorded the following information about you: Pulse Blood pressure Weight Height 60/minute 123/73 112.6 kg 1.702 m Jovanna Prince MD 07/24/2023 1:07 PM Signed FOLLOW UP NOTE Subjective Inés Shanks is a 57 year old female who presents for follow up. CC: Tremor Summary of prior care: Right-handed female with a history of PTSD, bipolar disorder, fibromyalgia, migraine, and tremor amongst other conditions who presents for evaluation of tremor. 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 Complicated presentation primarily due to the large amount of neuropsychiatrically active medications she is on. Wellbutrin, Austedo, and Vyvanse can all contribute to tremor. Suggested tapering off Austedo for now, consider other changes in the future. For migraine, will do medrol dose ryne + compazine bridge treatment. Afterwards can take compazine. Hesitant to add additional prescription medications due to polypharmacy. Will try migraine supplements B2 and Mg. 10/2022 retry levodopa 100 TID for mixed tremor. HPI Current Issues 1. Tremor - Thinks carbidopa/levodopa is helpful for tremor - Still definitely has tremor, demonstrative - Can be hard to eat - No side effects to levodopa 2. Migraine - Has had more lately with weather changes - Compazine is effective - Estimates gets a couple a week - Doesn't take migraine vitamins Headache description: - Aura: Notes possibly seeing things hard to explain - Onset: More in the morning - Location: Typically one side or the other, uncommonly back of head - Pain: Pressure, sharp - A/w: (+)photophobia / (+)phonophobia / (+)nausea / (+/-)osmophobia / (-)autonomic sx - Positional?: n/a - Improves with: Sleep - Triggers: Certain smells - Family Hx: Mom Current preventive: Gabapentin for fibromyalgia / neuropathy, LTG for mood, metoprolol for heart Current abortive: Compazine PRN Previous preventives: Never been prescribed something specific for it, meds she has been on in the past include verapamil, metoprolol, propranolol. Previous abortives: n/a 3. Memory difficulty - Having trouble with short term recall - Often can't think of a word or its on the tip of her tongue and can't get it out - Might forget something that she did recently Current meds: - Wellbutrin 200 mg BID - Vyvanse 40 mg daily - Trintellix 20 mg daily - Lamotrigine 200 mg BID - Clonazepam 1 mg TID - Gabapentin 900 mg TID (FM, PN) - Metoprolol ER 25 mg daily - Cd/ld 25/100 TID Current Outpatient Medications Medication Sig Dispense Refill ferrous sulfate 325 mg (65 mg iron) tablet Take 1 tablet by mouth two times a day with meals. 180 tablet 1 carboxymethylcellulose (REFRESH CELLUVISC) 1 % ophthalmic solution Use 1 Drop in both eyes daily at bedtime. 6 Each 5 gabapentin (NEURONTIN) 600 mg tablet Take 1 tablet by mouth three times a day for 180 days. 270 tablet 1 metoprolol succinate ER (TOPROL XL) 25 mg 24 hr tablet Take 1 tablet by mouth once daily. 30 tablet 5 gabapentin (NEURONTIN) 300 mg capsule Take 1 capsule by mouth three times a day for 90 days. [address] (PROTONIX) 40 mg tablet Take 1 tablet by mouth two times a day. 180 tablet 1 lisinopril (ZESTRIL) 5 mg tablet Take 1 tablet by mouth once daily. 90 tablet 0 carbidopa-levodopa (SINEMET) 25-100 mg per tablet Take 1 tablet by mouth three times a day. 90 tablet 2 thyroid, pork, (ARMOUR THYROID) 60 mg tablet Take 1 tablet by mouth two times a day. 60 tablet 5 rosuvastatin (CRESTOR) 5 mg tablet Take 1 tablet by mouth daily at bedtime. 90 tablet 1 metFORMIN ER (GLUCOPHAGE XR) 500 mg 24 hr tablet Take 3 tablets by mouth daily with breakfast. 270 tablet 1 lamoTRIgine (LAMICTAL) 200 mg tablet Take 1 tablet by mouth two times a day. 60 tablet 5 nitroglycerin sublingual (NITROQUICK) 0.3 mg SL tablet Dissolve 1 tablet under the tongue every 5 minutes as needed. 25 tablet 3 Fenofibrate (LOFIBRA) 54 mg tablet Take 1 tablet by mouth once daily. 30 tablet 11 PEG 400-propylene glycol (SYSTANE ULTRA) 0.4-0.3 % ophthalmic solution Use 1 Drop in both eyes twice daily. 10 mL 3 ondansetron (ZOFRAN) 4 mg tablet Take 1 tablet by mouth once daily as needed. 10 tablet 1 VYVANSE 20 mg capsule 40 mg. prochlorperazine (COMPAZINE) 10 mg tablet Take 1 tablet by mouth twice daily as needed (migraine). 20 tablet 5 Aluminum Hydrox-Magnesium Carb (GAVISCON EXTRA STRENGTH) 254-237.5 mg/5 mL susp Take 15 mL by mouth at bedtime as needed. 335 mL 3 Blood-Glucose Meter (FREESTYLE LITE METER) monitoring kit Freestyle LITE Meter Kit -Test blood sugars one time daily. DX E11.40 1 Each 0 blood suga (more content not included)... Normal [facility] XR Chest PA and Lateralon IMPRESSION: No acute radiographic abnormality. Purchasing Director: MEERA Transcribe Date/Time: Jun 02 2023 3:38P Dictated by : CHANTELL LIZ MD This examination was interpreted and the report reviewed and electronically signed by: CHNATELL LIZ MD on Jun 02 2023 3:38PM [facility] DIVISION OF RADIOLOGY * * *Final Report* * * DATE OF EXAM: Jun 02 2023 3:38PM WOX [id number] - XR CHEST 2V FRONTAL/LAT / PROCEDURE REASON: Acute cough * * * * Physician Interpretation * * * * EXAMINATION: CHEST RADIOGRAPH (2 VIEW FRONTAL & LATERAL) CLINICAL HISTORY: Acute cough MQ: XC2_6 EXAM DATE/TIME: 06/02/2023 3:38 PM COMPARISON: Chest x-ray dated August 05, 2021 RESULT: Lines, tubes, and devices: None. Lungs and pleura: No consolidation. No lung mass. No pleural effusion. No pneumothorax. Cardiomediastinal silhouette: Stable cardiomediastinal silhouette. Bones and soft tissues: Degenerative changes are present within the thoracic spine. DIVISION OF RADIOLOGY Provider, [facility] Lito Peoples - 06/02/2023 * * *Final Report* * * DATE OF EXAM: Jun 02 2023 3:38PM WOX [id number] - XR CHEST 2V FRONTAL/LAT / PROCEDURE REASON: Acute cough * * * * Physician Interpretation * * * * EXAMINATION: CHEST RADIOGRAPH (2 VIEW FRONTAL & LATERAL) CLINICAL HISTORY: Acute cough MQ: XC2_6 EXAM DATE/TIME: 06/02/2023 3:38 PM COMPARISON: Chest x-ray dated August 05, 2021 RESULT: Lines, tubes, and devices: None. Lungs and pleura: No consolidation. No lung mass. No pleural effusion. No pneumothorax. Cardiomediastinal silhouette: Stable cardiomediastinal silhouette. Bones and soft tissues: Degenerative changes are present within the thoracic spine. IMPRESSION IMPRESSION: No acute radiographic abnormality. Purchasing Director: MEERA Transcribe Date/Time: Jun 02 2023 3:38P Dictated by : CHANTELL LIZ MD This examination was interpreted and the report reviewed and electronically signed by: CHANTELL LIZ MD on Jun 02 2023 3:38PM EST [facility] Radiology Study observation (narrative) [facility] XR Chest PA and LateralOrder ed By: [facility] Provider on 06-02-2023 [facility] ANES POSTPROC EVALon 023 ANES POSTPROC EVAL HNO ID: [id number] Author: Casandra Botello APRN.CONTRACTS INTERN Service: Anesthesiology Author Type: Nurse Network Architect Type: Anesthesia Postprocedure Evaluation Filed: 03/12/2023 8:48 AM Note Text: POST ANESTHESIA EVALUATION NOTE : 1965 Procedure Summary Date: 03/12/23 Room / Location: SURGERY Anesthesia Start: 809 Anesthesia Stop: 48 Procedures: EGD DIAGNOSTIC COLONOSCOPY SCREENING Diagnosis: 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 Post Anesthesia Patient Status Patient Evaluation: PACU. PACU/ICU Patient Condition: stable. Anticipated Disposition: phase 2 then home. Neurological Status: aware and responsive. Pulmonary Status: breathing comfortably on room air Airway Control: returned to baseline unsupported. Cardiovascular Status: stable. Pain Management: clinically adequate Postoperative Hydration: acceptable. Intraoperative Events: no significant anesthesia events Post Operative Nausea/Vomiting Status: no significant post operative nausea or vomiting Recommendation: continue current plan of care. Anesthesia Observations No Documentation SIGNATURE: Casandra Botello APRN.CONTRACTS INTERN PATIENT NAME: Inés Shanks DATE: March 12, 2023 TIME: 8:48 AM CSN: [id number] Normal [facility] ANES PRE-OPon 03-12-2023 [facility] PRE-OP HNO ID: [id number] Author: Casandra Botello APRN.CONTRACTS INTERN Service: Anesthesiology Author Type: Nurse Network Architect Type: Anesthesia Preprocedure Evaluation Filed: 03/12/2023 7:25 AM Note Text: ANESTHESIOLOGY DAY OF SURGERY NOTE : 1965 Procedure Information Date/Time: 03/12/23 0800 Scheduled providers: Susanna Schneider MD; Casandra Botello APRN.CONTRACTS INTERN Procedures: EGD DIAGNOSTIC COLONOSCOPY SCREENING Location: LD SURGERY Estimated body mass index is 40.25 kg/m? as calculated from the following: Height as of 03/04/23: 170.2 cm (5' 7). Weight as of 03/04/23: 116.6 kg (257 lb). Most recent hematocrit and potassium results: Hematocrit 43.0 12/05/2022 Potassium 5.0 12/05/2022 Relevant Problems ANESTHESIA (+) KRZYSZTOF (obstructive sleep apnea) CARDIO (+) HTN (hypertension) (+) Mild CAD ENDO (+) Hypothyroid GI (+) GERD (gastroesophageal reflux disease) -RENAL (+) Liver fibrosis NEURO-PSYCH (+) Chronic headaches PULMONARY (+) KRZYSZTOF (obstructive sleep apnea) Other (+) Adhesive capsulitis of left shoulder (+) Arthritis of left acromioclavicular joint I - PHYSICAL EVALUATION AIRWAY Patient intubated: No. Tracheostomy tube not present Mallampati: II. TM distance: >3 FB. Neck ROM: full ROM without neurological symptoms. Mouth opening: adequate. Short neck: no. Thick neck: no Gaming present: no Lip Bite Test: I Microretrognathia/Micronagth ia/Recessed Chin: No DENTAL Dental findings: teeth intact. Additional exam findings: no II - ANESTHESIA PLAN ASA Score: 3 Anesthetic Plan: MAC The patient is not a current smoker. NPO Status: adequate Beta Shara Administration of chronic beta shara medication not planned. Monitoring Plan Monitoring plan: standard ASA. Post Procedure Analgesic Plan Postoperative analgesic plan: per surgical service. Informed Consent Anesthetic risks, benefits, alternatives, personnel and consent discussed: yes. Patient / Responsible Green Party agrees to proceed: yes Patient / Surrogate agrees to blood products: Yes DNR status reviewed with patient and/or family prior to surgery. patient elects to suspend DNR status in the perioperative setting (Full Code). Significant changes in the patient condition since the History and Physical, not otherwise documented in primary service progress note: no. Potential Anesthesia issues that may suggest increased risk of complications or contraindication to planned procedure: none. Discussed the possibility of lip / dental damage: yes No vitals data found for the desired time range. No current facility-administered medications on file as of 03/12/2023. Outpatient Medications as of 03/12/2023 Medication Sig - metoprolol succinate ER (TOPROL XL) 25 mg 24 hr tablet Take 1 tablet by mouth once daily. - gabapentin (NEURONTIN) 300 mg capsule Take 1 capsule by mouth three times a day for 30 days. - metFORMIN ER (GLUCOPHAGE XR) 500 mg 24 hr tablet Take 3 tablets by mouth daily with breakfast. - lamoTRIgine (LAMICTAL) 200 mg tablet Take 1 tablet by mouth two times a day. - nitroglycerin sublingual (NITROQUICK) 0.3 mg SL tablet Dissolve 1 tablet under the tongue every 5 minutes as needed. - Fenofibrate (LOFIBRA) 54 mg tablet Take 1 tablet by mouth once daily. - lisinopril (ZESTRIL) 5 mg tablet Take 1 tablet by mouth once daily. - thyroid, pork, (ARMOUR THYROID) 60 mg tablet Take 1 tablet by mouth two times a day. - carboxymethylcellulose (REFRESH CELLUVISC) 1 % ophthalmic solution Use 1 Drop in both eyes daily at bedtime. - PEG 400-propylene glycol (SYSTANE ULTRA) 0.4-0.3 % ophthalmic solution Use 1 Drop in both eyes twice daily. - ferrous sulfate 325 mg (65 mg iron) tablet Take 1 tablet by mouth twice daily with meals. - pantoprazole DR (PROTONIX) 40 mg tablet Take 1 tablet by mouth twice daily. - gabapentin (NEURONTIN) 600 mg tablet Take 1 tablet by mouth three times daily for 180 days. - carbidopa-levodopa (SINEMET) 25-100 mg per tablet Take 1 tablet by mouth three times daily. - rosuvastatin (CRESTOR) 5 mg tablet Take 1 tablet by mouth daily at bedtime. - tiZANidine (ZANAFLEX) 4 mg tablet Take 1 tablet by mouth every 8 hours as needed. - ondansetron (ZOFRAN) 4 mg tablet Take 1 tablet by mouth once daily as needed. - VYVANSE 20 mg capsule - prochlorperazine (COMPAZINE) 10 mg tablet Take 1 tablet by mouth twice daily as needed (migraine). - Aluminum Hydrox-Magnesium Carb (GAVISCON EXTRA STRENGTH) 254-237.5 mg/5 mL susp Take 15 mL by mouth at bedtime as needed. - Blood-Glucose Meter (FREESTYLE LITE METER) monitoring kit Freestyle LITE Meter Kit -Test blood sugars one time daily. DX E11.40 - blood sugar diagnostic (FREESTYLE LITE STRIPS) test strip Test blood sugar(s) once times daily. Dx: E11.40 - Lancets lancets Test blood sugar(s) one time daily. Dx: Other DM Code E11.40 Insulin: No - acetaminophen (TYLENOL EXTRA STRENGTH) 500 mg tablet T (more content not included)... [facility] BRIEF OP NOTon 03-12-2023 BRIEF OP NOT HNO ID: [id number] Author: Susanna Schneider MD Service: General Surgery Author Type: Physician Type: Brief Op Note Filed: 03/12/2023 8:46 AM Note Text: BRIEF OPERATIVE NOTE SURGERY DATE: 03/12/2023 Incision/Procedure Start Time: 8:15 cecal intubation time: 8:32 Incision Close/Procedure End Time: 8:39 Surgeon(s)/Proceduralist(s) and Equipment Operator/Laborer/Supervisor(s): love Procedures: EGD with biopsies Colonoscopy with polypectomies Anesthesia: MAC Findings: s/p sleeve gastric surgery, irregular GE junction with salmon colored mucosa extending at least 1 cm proximally, hemorrhoids, transverse colon polyp (cold grasper forceps), suboptimal colon cleansing prep Estimated Blood Loss: minimal Specimens: antrum of stomach, GE junction, transverse colon polyp Complications: None Closure Technique: Non-primary Preop Diagnosis: screening for colon cancer, history of Powers's, last colonoscopy 2014 suboptimal prer Postop Diagnosis: same SIGNATURE: Susanna Schneider MD PATIENT NAME: Inés Shanks DATE: March 12, 2023 TIME: 8:41 AM Acct: [id number] [facility] HISTORY PHYSICALon HISTORY PHYSICAL HNO ID: [id number] Author: Susanna Schneider MD Service: General Surgery Author Type: Physician Type: HANDP Filed: 03/12/2023 7:48 AM Note Text: HISTORY AND PHYSICAL Inés Orellana Workman 1965 REFERRING PHYSICIAN: Santhosh Holden MD CHIEF COMPLAINT: Consult (Barretts esophagus) HPI: The patient is a 57 year old female referred for endoscopy. Per my office visit from 01/22/21: The patient is a 55 year old female referred for endoscopy. Inés notes no colon complaints. Patient denies any change in bowel habits, weight changes, blood in stools, black tarry stools or abdominal pain. Denies family history of colon cancer. The patient NOTES a history of Powers's esophagus, with recent worsening reflux symptoms. Inés has undergone prior endoscopy. Most recent EGD 03/25/[address] Nunn with findings of short-segment Powers's, 2 year repeat recommended. Last colonoscopy 01/10/15 with repeat recommended in 5 years due to suboptimal bowel prep. Patient's past medical history is significant for myocardial bridge, bipolar 1 disorder, tremor, hypertension, type iI diabetes mellitus. Patient follows with Dr. Holden for her chronic medical conditions. She follows with Dr. Gallardo in cardiology and is due for routine cardiac follow up. Reports history of intermittent chest discomfort in the past for which she has taken nitroglycerin. Denies problems with sedation in the past. Plan was for EGD and colonoscopy . Patient's past medical history, past surgical history, medications and allergies are up to date as of this visit. PAST MEDICAL HISTORY Diagnosis Date Anxiety Powers's esophagus Bipolar 1 disorder (HCC) Dr. Orozco, psychiatry Chronic headaches Coronary-myocardial bridge DDD (degenerative disc disease) Depression 01/05/2015 Essential tremor TK tremor Fibromyalgia GERD (gastroesophageal reflux disease) HTN (hypertension) Hyperlipidemia Hypothyroid Liver fibrosis Mild CAD 08/22/2019 Neuropathy Non-melanoma skin cancer 03/08/2021 Obstructive sleep apnea PTSD (post-traumatic stress disorder) PVD (peripheral vascular disease) (HCC) Sciatica Shoulder injury Type II or unspecified type diabetes mellitus without mention of complication, not stated as uncontrolled PAST SURGICAL HISTORY Procedure Laterality Date COLONOSCOPY FLX DX W/COLLJ SPEC WHEN PFRMD 01/10/2015 Colonoscopy DIAGNOSTIC ARTHROSCOPY SHOULDER +- SYNOVIAL BX Left 05/21/2018 Left shoulder arthroscopic subacromial decompression, open distal clavicle excision and manipulation under anesthesia EGD 2018 ENDOMETRIAL ABLATION WITH US GUIDANCE 2007 ESOPHAGOGASTRODUODENOSCOPY TRANSORAL DIAGNOSTIC 01/10/2015 EGD ESOPHAGOGASTRODUODENOSCOPY TRANSORAL DIAGNOSTIC 01/10/2016 EGD (MAC) GASTRIC BYPASS HX 03/2016 gastric sleeve HYSTERECTOMY, REVISE VAGINA; COLPECTOMY 05/16/2020 INJECTION back injections x3 PAST SURGICAL HISTORY OF 05/2020 Partial Hysterectomy w/ bladder sling TUBAL LIGATION HX 1988 Current Outpatient Medications Medication Sig carboxymethylcellulose (REFRESH CELLUVISC) 1 % ophthalmic solution Use 1 Drop in both eyes daily at bedtime. PEG 400-propylene glycol (SYSTANE ULTRA) 0.4-0.3 % ophthalmic solution Use 1 Drop in both eyes twice daily. metFORMIN ER (GLUCOPHAGE XR) 500 mg 24 hr tablet Take 3 tablets by mouth daily with breakfast. ferrous sulfate 325 mg (65 mg iron) tablet Take 1 tablet by mouth twice daily with meals. pantoprazole DR (PROTONIX) 40 mg tablet Take 1 tablet by mouth twice daily. gabapentin (NEURONTIN) 600 mg tablet Take 1 tablet by mouth three times daily for 180 days. gabapentin (NEURONTIN) 300 mg capsule Take 1 capsule by mouth three times daily for 30 days. carbidopa-levodopa (SINEMET) 25-100 mg per tablet Take 1 tablet by mouth three times daily. lisinopril (ZESTRIL) 5 mg tablet Take 1 tablet by mouth once daily. rosuvastatin (CRESTOR) 5 mg tablet Take 1 tablet by mouth daily at bedtime. tiZANidine (ZANAFLEX) 4 mg tablet Take 1 tablet by mouth every 8 hours as needed. thyroid, pork, (ARMOUR THYROID) 60 mg tablet Take 1 tablet by mouth twice daily. ondansetron (ZOFRAN) 4 mg tablet Take 1 tablet by mouth once daily as needed. VYVANSE 20 mg capsule prochlorperazine (COMPAZINE) 10 mg tablet Take 1 tablet by mouth twice daily as needed (migraine). Aluminum Hydrox-Magnesium Carb (GAVISCON EXTRA STRENGTH) 254-237.5 mg/5 mL susp Take 15 mL by mouth at bedtime as needed. Blood-Glucose Meter (FREESTYLE LITE METER) monitoring kit Freestyle LITE Meter Kit -Test blood sugars one time daily. DX E11.40 blood sugar diagnostic (FREESTYLE LITE STRIPS) test strip Test blood sugar(s) once times daily. Dx: E11.40 Lancets lancets Test blood sugar(s) one time daily. Dx: Other DM Code E11.40 Insulin: No cephALEXin (KEFLEX) 500 mg capsule Take 1 capsule by mouth three times daily. acetaminophen (TYLENOL EXTRA STRENGTH) 500 mg t (more content not included)... [facility] NURSING PROGon 03-12-2023 NURSING PROG HNO ID: [id number] Author: Priiclla Bower RN Service: Nursing Author Type: Registered Nurse Type: Nursing Progress Note Filed: 03/13/2023 10:33 AM Note Text: Patient states she is doing well. Passing flatus this morning. No discomfort. Eating well. Reminded patient to make sure she gets her results from her specimens that were taken and sent to lab. Instructed patient to contact Dr. Schneider if she has any issues. Patient verbalized understanding of instructions given. [facility] NURSING PROG HNO ID: [id number] Author: Manda Stanley RN Service: Nursing Author Type: Registered Nurse Type: Nursing Progress Note Filed: 03/12/2023 9:20 AM Note Text: Pt stands at bedside with 2 nurses at bedside. Pt advised me that she normally is unsteady and uses a walker at home. Pt denies dizziness or pain. Discharge instructions reviewed with daughter. [facility] NURSING PROG HNO ID: [id number] Author: Pricilla Bower RN Service: Nursing Author Type: Registered Nurse Type: Nursing Progress Note Filed: 03/12/2023 7:56 AM Note Text: Patient education completed with patient. Patient verbalizes understanding of instructions given. Patient ready for procedure. [facility] OPERATIVE NOon 03-12-2023 OPERATIVE NO HNO ID: [id number] Author: Susanna Schneider MD Service: General Surgery Author Type: Physician Type: Operative Report Filed: 03/12/2023 6:27 PM Note Text: [facility], [facility] - Operative Report - Jbsa LacklandINÉS Jasso : 1965 AGE: 57. SEX: F PATIENT TYPE: O HOSP SVC: GNS LOCATION: [facility] ATTENDING PHYSICIAN: Susanna Schneider MD CSN NUMBER: [id number] DATE OF SURGERY/PROCEDURE: 03/12/2023 INCISION/PROCEDURE START TIME: 814 INCISION CLOSE/PROCEDURE END TIME: 838 PREOPERATIVE DIAGNOSIS: Screening for colon cancer and history of Powers's. POSTOPERATIVE DIAGNOSIS: Hemorrhoids, transverse colon polyp, and suboptimal colon cleansing prep. SURGEON: Susanna Schneider MD TRANSVERSE ABDOMINAL MUSCLE NURSE: No Additional Staff SURGERY/PROCEDURE: Esophagogastroduodenoscopy with biopsies and colonoscopy with polypectomy. ANESTHESIA: Monitored anesthesia care. INDICATIONS: Inés shanks is a 57-year-old female, who presents for upper and lower endoscopy. She has a history of Powers's esophagus. She is status post a sleeve gastric bariatric surgery. She last had a colonoscopy in 2014, for which repeat was recommended due to suboptimal colon cleansing preparation. She has no family history of colon cancer. She therefore presents for upper and lower endoscopy. She has been counseled of the risks of procedure including, but not limited to infection, bleeding, perforation, GI tract, inability to complete the procedure, complications of anesthesia, etc. The patient understands and agrees to proceed. DESCRIPTION OF PROCEDURE: After informed consent was given, the patient was brought to the endoscopy suite. Appropriate time-out protocol was followed. The patient was then placed under IV anesthesia by the anesthesia provider. The patient was placed in left lateral decubitus position. A bite block was placed. The upper endoscope was lubricated, carefully inserted in the patient's mouth and carefully advanced into the esophagus. It was then advanced into the stomach, past the pylorus, then into the first and second portions of the duodenum. No lesions were noted in the first and second portions of the duodenum. The endoscope was retracted back into the stomach. The antrum of the stomach had some very minimal radial erythematous streaking and mucosal biopsies were taken for histology and H pylori. This was done using cold grasper forceps. Retroflexed view in the stomach revealed postsurgical changes consistent with a sleeve gastrectomy. The endoscope was then retracted back into the esophagus. There was some salmon-colored mucosa that extended approximately 1 to 2 cm proximally of the GE junction. Also, there appeared to be breaks in the esophageal lining consistent with clinical esophagitis. Mucosal biopsies of this area were taken using cold grasper forceps to rule out any dysplasia. The remainder of the esophagus appeared normal. The endoscope was removed intact. The patient tolerated this portion of the procedure well. The next procedure performed was colonoscopy. The colonoscope was lubricated and carefully inserted into the patient's anus and advanced to the rectum. It was then advanced into the sigmoid colon, then the left colon, past the splenic flexure into the transverse colon, past hepatic flexure down the right colon to the cecum. The cecum was identified by transillumination, confluence of teniae coli, identification of ileocecal valve, appendiceal orifice, and external palpation. At this level, the colonoscope was slowly retracted back and entire colonic mucosal surface was examined. Of note is that the patient's colon cleansing preparation was suboptimal precluding visualization of lesions and/or polyps -1 cm or less in size. There was no evidence of any masses, polyps or lesions, given the above limitations - of the right colon. In the transverse colon, there appeared to be a sessile polyp, which was removed using cold grasper forceps. No lesions were noted in the left colon given the above limitations. No lesions were noted in the sigmoid colon given the above limitations. Retroflexed view in the rectum revealed hemorrhoidal changes, but no active inflammation or bleeding. The endoscope was removed intact. Digital examination revealed no palpable anal canal masses. Patient tolerated the procedure well, was brought to recovery room in stable condition. SPECIMENS:mucosal biopsy of antrum of stomach and mucosal biopsy of GE junction and transverse colon polyp. COMPLICATIONS: None. ESTIMATED BLOOD LOSS: Minimal. Susanna Schneider MD LW:[id number] /[id number] Normal [facility] SURGICAL PATHOLOGYon 023 CASE REPORT Normal [facility] Comment on above: Order Comment: Speci men Type: TISSUE SPECIMEN Ordering Facility: [facility] Address: [address] [place] [address] Result Comment: Surg [facility] Pathology Report Case: [id number] Authorizing Provider: Susanna Schneider MD Collected: 03/12/2023 08:19 AM Ordering Location: [facility] SURGERY Received: 03/12/2023 01:21 PM Pathologist: Loretta Oleary MD Specimens: A) - ANTRUM (STOMACH) BIOPSY B) - ESOPHAGOGASTRIC JUNCTION BIOPSY C) - TRANSVERSE COLON BIOPSY Performed By: #### S #### [facility] CLIA [id number] [address] FINAL DIAGNOSIS Normal [facility] Comment on above: Order Comment: Speci men Type: TISSUE SPECIMEN Ordering Facility: [facility] Address: [address] [place] [address] Result Comment: A. A ntrum (stomach), biopsy: -- Antral type gastric mucosa with no significant histopathologic abnormalities. -- No morphologic evidence of H. pylori organisms identified on H&E sections. B. Esophagogastric junction, biopsy: -- Squamocolumnar junction with mild chronic inflammation, negative for intestinal metaplasia. C. Transverse colon polyp, polypectomy: -- Serrated polyp, favor hyperplastic polyp. Performed By: #### S #### [facility] CLIA [id number] [address] [place] [address] FINAL PERFORMING LAB Normal [facility] Comment on above: Order Comment: Speci men Type: TISSUE SPECIMEN Ordering Facility: [facility] Address: [address] [place] [address] Result Comment: Diag nostic interpretation performed at [facility], [address] [place] [address] CLIA# [id number] Seasonal Tax Preparer: Jose Herr M.D. Performed By: #### S #### [facility] CLIA [id number] [address] [place] [address] GROSS DESCRIPTION Normal [facility] Comment on above: Order Comment: Speci men Type: TISSUE SPECIMEN Ordering Facility: [facility] Address: [address] [place] [address] Result Comment: A. A NTRUM (STOMACH) BIOPSY Received in formalin labeled antrum biopsy is a irregular roy soft tissue fragment measuring 0.2 x 0.2 x 0.2 cm. The specimen is submitted entirely in A1. B. ESOPHAGOGASTRIC JUNCTION BIOPSY Received in formalin labeled esophagogastric junction biopsy is a roy soft tissue fragment measuring 0.2 x 0.2 x 0.2 cm. Specimen is submitted entirely in B1. C. TRANSVERSE COLON BIOPSY Received in formalin labeled transverse colon polyp are 2 irregular roy soft tissue fragments aggregating to 0.4 x 0.2 x 0.2 cm. The specimen is submitted entirely in C1. Gross examination performed at [facility], [address] [place] [address] CLIA#[id number] OLS March 13, 2023 9:47 AM Performed By: #### S #### [facility] CLIA [id number] [address] [id number] [facility] NURSING PROGon 03-04-2023 NURSING PROG HNO ID: [id number] Author: Ayo Harrison RN Service: ? Author Type: Registered Nurse Type: Nursing Progress Note Filed: 03/04/2023 10:11 AM Note Text: Summary: Pre-op call Pre-Procedure Checklist Inés Shanks [phone] (home) 1965 57 year old Body mass index is 40.25 kg/m?. Allergies: Cat Hair Standardiz* Itching Comment:Eyes get really red, if cat is too close, can't breathe Cats Itching Comment:Eyes get really red, if cat is too close, can't breathe Citric Acid Intolerance Mold Spores Other: See Comments Comment:Flu like symptoms Zolpidem Other: See Comments Procedure: egd/col Date of Procedure: 03/12/2023 Smoke: No Alcohol: No Street Drugs: No Diabetic: Yes Insulin: No Problems with Anesthesia (Self or Family?) No Dredging Inspector: Teofilo Saw student finance specialist in the last 6 months? Yes Recent EKG/Cardiac Testing: Yes Chest pain in the last 6 months (<6 months cardiac clearance needed): Yes History of: Heart Attack/Stroke/Blood Clot?: No Shortness of Breath: Occasional Asthma: No Inhalers: No Any Outstanding Consults?: No If yes, list: Additional Notes:Awaiting cardiac [facility]ardo [facility] 02-06[facility]2023 [facility] Office Visit (JOSSELINE ) INÉS SHANKS ([id number]) 1965 F [facility] Date Time Provider Department 02/06/23 1:00 PM FARHAT GALLARDO During your visit today, we recorded the following information about you: Pulse Blood pressure Weight Height 68/minute 118/70 117 kg 1.702 m Farhat Gallardo DO 02/06/2023 3:50 PM [facility] SECTION OF REGIONAL CARDIOLOGY [facility] OUTPATIENT VISIT DATE February 06, 2023 PRIMARY CARE PHYSICIAN: Santhosh Holden [address] [place] [address] HISTORY OF PRESENT ILLNESS: Ms. Shanks is a 57 year old female. 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 She notes occasional feelings of discomfort as previous for which nitroglycerin helps. She denies dyspnea, orthopnea, paroxysmal nocturnal dyspnea, palpitations per se, near-syncope or syncope. Recent cholesterol profile was unable to obtain an LDL due to her degree of triglycerides. PLAN AND RECOMMENDATIONS: The patient overall appears stable without apparent symptoms that would suggest angina or cardiac decompensation. Heart rate and blood pressure are favorable. Her triglycerides are elevated for which we will start a low-dose fenofibrate due to history of liver abnormality. We will recheck lipids, hepatic function in 2 months with follow-up shortly thereafter. Dietary and lifestyle modification was otherwise reemphasized to facilitate risk factor reduction. Vitals: BP 118/70 Pulse 68 Ht 170.2 cm (5' 7) Wt 117 kg (257 lb 15 oz) LMP 11/20/2014 (Approximate) SpO2 96% BMI 40.40 kg/m? Physical Exam Vitals reviewed. Constitutional: General: She is not in acute distress. Appearance: Normal appearance. She is well-developed. HENT: Head: Normocephalic and atraumatic. Nose: Nose normal. Eyes: General: No scleral icterus. Right eye: No discharge. Left eye: No discharge. Pupils: Pupils are equal, round, and reactive to light. Neck: Thyroid: No thyromegaly. Vascular: No carotid bruit or JVD. Cardiovascular: Rate and Rhythm: Normal rate and regular rhythm. Heart sounds: Normal heart sounds. No murmur heard. No friction rub. No gallop. Pulmonary: Effort: Pulmonary effort is normal. No respiratory distress. Breath sounds: Normal breath sounds. No wheezing or rales. Abdominal: General: Bowel sounds are normal. Palpations: Abdomen is soft. Musculoskeletal: General: Normal range of motion. Cervical back: Normal range of motion and neck supple. Skin: General: Skin is warm and dry. Capillary Refill: Capillary refill takes less than 2 seconds. Coloration: Skin is not pale. Neurological: Mental Status: She is alert and oriented to person, place, and time. Cranial Nerves: No cranial nerve deficit. Psychiatric: Behavior: Behavior normal. Thought Content: Thought content normal. Judgment: Judgment normal. Review of Systems Constitutional: Positive for fatigue. Negative for activity change. HENT: Negative for ear pain and facial swelling. Eyes: Negative for pain and discharge. Respiratory: Negative for chest tightness and shortness of breath. Cardiovascular: Negative for chest pain, palpitations and leg swelling. Gastrointestinal: Negative for abdominal pain, blood in stool, nausea and vomiting. Endocrine: Negative for cold intolerance and heat intolerance. Genitourinary: Negative for frequency and hematuria. Musculoskeletal: Positive for arthralgias. Negative for gait problem. Skin: Negative for color change, pallor and rash. Allergic/Immunologic: Negative for immunocompromised state. Neurological: Negative for dizziness, syncope, light-headedness and headaches. Hematological: Negative for adenopathy. Does not bruise/bleed easily. Psychiatric/Behavioral: Negative for confusion. The patient is not nervous/anxious. PAST MEDICAL HISTORY Diagnosis Date Anxiety Powers's esophagus Bipolar 1 disorder (HCC) Dr. Orozco, psychiatry Chronic headaches Coronary-myocardial bridge DDD (degenerative disc disease) Depression 01/05/2015 Essential tremor TK tremor Fibromyalgia GERD (gastroesophageal reflux disease) HTN (hypertension) Hyperlipidemia Hypothyroid Liver fibrosis Mild CAD 08/22/2019 Neuropathy Non-melanoma skin cancer 03/08/2021 Obstructive sleep apnea PTSD (post-traumatic stress disorder) PVD (peripheral vascular disease) (HCC) Sciatica Shoulder injury Type II or unspecified type diabetes mellitus without mention of complication, not stated as uncontrolled PAST SURGICAL HISTORY Procedure Laterality Date COLONOSCOPY FLX DX W/COLLJ SPEC WHEN PFRMD 01/10/2015 Colonoscopy DIAGNOSTIC ARTHROSCOPY SHOULDER + (more content not included)... [facility] Ventricular Rate : 6 8 BPM Atrial Rate : 68 BPM P-R Interval : 178 ms QRS Duration : 94 ms Q-T Interval : 436 ms QTC Calculation(Bazett) : 463 ms Calculated P [place]dford : 14 degrees Calculated R [place] : -1 degrees Calculated T [place] : 39 degrees NORMAL SINUS RHYTHM NONSPECIFIC T WAVE ABNORMALITY PROLONGED QT ABNORMAL ECG WHEN COMPARED WITH ECG OF 19-MAY-2018 10:48, T WAVE INVERSION NO LONGER EVIDENT IN INFERIOR LEADS Confirmed by MD GALLARDO GREGORY () on 03/06/2023 4:18:05 PM Also confirmed by MD GALLARDO GREGORY (), television news video editor BETI SANTIAGO ([id number]) on 01/05/2024 9:09:53 AM NAME : INÉS SHANKS PID : [id number] : 1965 Gender : Female Race : ORD : Procedure Date : Feb 06 2023 13:11:31 Edit Date : Jan 05 2024 09:09:56 Diagnosis: NORMAL SINUS RHYTHM NONSPECIFIC T WAVE ABNORMALITY PROLONGED QT ABNORMAL ECG WHEN COMPARED WITH ECG OF 19-MAY-2018 10:48, T WAVE INVERSION NO LONGER EVIDENT IN INFERIOR LEADS Confirmed by MD GALLARDO GREGORY () on 03/06/2023 4:18:05 PM Also confirmed by MD GALLADRO GREGORY (), television news video editor BETI SANTIAGO ([id number]) on 01/05/2024 9:09:53 AM Test Reason : Location : 659 : [facility] Overread By : MD GALLARDO GREGORY Edited By : BETI SANTIAGO Referred By : , Acquired by : , [facility] Comprehensive metabolic 2000 panelon 12-06-2022 Albumin [Mass/Vol] 4.5 g/dL 3.9 - 4.9 g/dL [facility] ALP [Catalytic activity/Vol] 76 U/L 34 - 123 U/L [facility] ALT [Catalytic activity/Vol] 20 U/L 7 - 38 U/L [facility] Anion gap [Moles/Vol] 17 mmol/L 9 - 18 mmol/L [facility] AST [Catalytic activity/Vol] 34 U/L 13 - 35 U/L [facility] Bilirubin [Mass/Vol] 0.3 mg/dL 0.2 - 1.3 mg/dL [facility] Calcium [Mass/Vol] 9.9 mg/dL 8.5 - 10. 2 mg/dL [facility] Chloride [Moles/Vol] 102 mmol/L 97 - 105 mmol/L [facility] CO2 [Moles/Vol] 21 mmol/L Low 22 - 30 mmol/L [facility] Creatinine [Mass/Vol] 0.84 mg/dL 0.58 - 0.96 mg/dL [facility] Estimated Glomerular Filtration Rate 80 mL/min/1.73m >=60 mL/min/1.73m [facility] Glucose [Mass/Vol] 112 mg/dL High 74 - 99 mg/dL [facility] Potassium [Moles/Vol] 5.0 mmol/L 3.7 - 5.1 mmol/L [facility] Protein [Mass/Vol] 7.2 g/dL 6.3 - 8.0 g/dL [facility] Sodium [Moles/Vol] 140 mmol/L 136 - 144 mmol/L [facility] Urea nitrogen [Mass/Vol] 11 mg/dL 7 - 21 mg/dL [facility] FOLATE SERUMon 12-06-2022 Folate [Mass/Vol] 11.4 ng/mL >4.7 ng/mL [facility] HIV 1+2 Ab IA Qlon HIV 1 and 2 Ab IA.rapid Nom [facility] HIV 1+2 Ab+HIV1 p24 Ag IA Ql Non-Reactive Nonreactive [facility] HIV immunoassay testing algorithm interpretation (S/P/Bld) [Interp] [facility] VITAMIN B12 BLOODon 12-07-19 Cobalamin (Vitamin B12) [Mass/Vol] 478 pg/mL 232 - 1,245 pg/mL [facility] CBC W Auto Differential pane l (Bld)on 12-05-2022 Basophils (Bld) [#/Vol] 0.04 10*3/uL <0.11 k/uL [facility] Basophils/100 WBC (Bld) 0.5 % [facility] Differential cell count method Nom (Bld) Auto [facility] Eosinophils (Bld) [#/Vol] 0.03 10*3/uL <0.46 k/uL [facility] Eosinophils/100 WBC (Bld) 0.4 % [facility] Erythrocyte distribution width (RBC) [Ratio] 13.6 % 11.5 - 15.0 % [facility] Hematocrit (Bld) [Volume fraction] 43.0 % 36.0 - 46.0 % [facility] Hemoglobin (Bld) [Mass/Vol] 13.2 g/dL 11.5 - 15.5 g/dL [facility] Immature granulocytes (Bld) [#/Vol] 0.05 10*3/uL <0.10 k/uL [facility] Immature granulocytes/100 WBC (Bld) 0.7 % [facility] Lymphocytes (Bld) [#/Vol] 2.77 10*3/uL 1.00 - 4.00 k/uL [facility] Lymphocytes/100 WBC (Bld) 37.1 % [facility] MCH (RBC) [Entitic mass] 28.0 pg 26.0 - 34.0 pg [facility] MCHC (RBC) [Mass/Vol] 30.7 g/dL 30.5 - 36.0 g/dL [facility] MCV (RBC) [Entitic vol] 91.3 fL 80.0 - 100.0 fL [facility] Monocytes (Bld) [#/Vol] 0.31 10*3/uL <0.87 k/uL [facility] Monocytes/100 WBC (Bld) 4.2 % [facility] Neutrophils (Bld) [#/Vol] 4.26 10*3/uL 1.45 - 7.50 k/uL [facility] Neutrophils/100 WBC (Bld) 57.1 % [facility] Nucleated RBC (Bld) [#/Vol] <0.01 k/uL [facility] Nucleated RBC/100 WBC (Bld) [Ratio] 0.0 /100 WBC [facility] Platelet mean volume (Bld) [Entitic vol] 10.2 fL 9.0 - 12.7 fL [facility] Platelets (Bld) [#/Vol] 208 10*3/uL 150 - 400 k/uL [facility] RBC (Bld) [#/Vol] 4.71 10*6/uL 3.90 - 5.2 0 m/uL [facility] WBC (Bld) [#/Vol] 7.46 10*3/uL 3.70 - 11. 00 k/uL [facility] XR FOOT GENERAL 3V AP/LAT/OB L RIGHTon 10-15-2022 [facility] JESUS SCREENINGon 06-06-2022 [facility] XR Finger - right AP and Lat eral and obliqueon 05-30-2022 IMPRESSION: No acute radiographic abnormalities seen in the fourth digit. Purchasing Director: PSCB Transcribe Date/Time: May 30 2022 5:11P Dictated by : MORGAN CASTILLO MD This examination was interpreted and the report reviewed and electronically signed by: MORGAN CASTILLO MD on May 30 2022 5:13PM [facility] DIVISION OF RADIOLOGY * * *Final Report* * * DATE OF EXAM: May 29 2022 11:53AM WOX [id number] - XR DIGIT 3V FRONTAL/LAT/OBL RT / PROCEDURE REASON: Finger pain, right * * * * Physician Interpretation * * * * EXAM TITLE: XR DIGIT 3V FRONTAL/LAT/OBL RT EXAM DATE/TIME: 05/29/2022 11:53 AM COMPARISON: None. CLINICAL INDICATION/HISTORY: Finger pain. TECHNIQUE: PA, lateral and oblique views of the fourth digit of the right hand are presented. FINDINGS: No acute fractures or subluxations are noted. The joint spaces are well preserved. The mineralization of the bones is normal. There is no significant soft tissue swelling. DIVISION OF RADIOLOGY Provider, [facility] - 05/30/2022 * * *Final Report* * * DATE OF EXAM: May 29 2022 11:53AM WOX [id number] - XR DIGIT 3V FRONTAL/LAT/OBL RT / PROCEDURE REASON: Finger pain, right * * * * Physician Interpretation * * * * EXAM TITLE: XR DIGIT 3V FRONTAL/LAT/OBL RT EXAM DATE/TIME: 05/29/2022 11:53 AM COMPARISON: None. CLINICAL INDICATION/HISTORY: Finger pain. TECHNIQUE: PA, lateral and oblique views of the fourth digit of the right hand are presented. FINDINGS: No acute fractures or subluxations are noted. The joint spaces are well preserved. The mineralization of the bones is normal. There is no significant soft tissue swelling. IMPRESSION IMPRESSION: No acute radiographic abnormalities seen in the fourth digit. Purchasing Director: [facility] Transcribe Date/Time: May 30 2022 5:11P Dictated by : MORGAN CASTILLO MD This examination was interpreted and the report reviewed and electronically signed by: MORGAN CASTILLO MD on May 30 2022 5:13PM EST [facility] XR Finger - right AP and Lat eral and obliqueOrdered By: Ccf Provider on 05-30-2022 [facility] XR Finger - right AP and Lat eral and obliqueon 05-29-2022 Radiology Study observation (narrative) [facility] XR FOOT GENERAL 3V AP/LAT/OB L LEFTon 01-17-2022 [facility] XR FOOT GENERAL 3V AP/LAT/OB L BILATERALon 08-09-2021 [facility] XR CHEST 2V FRONTAL/LATon [facility] XR Chest PA and Lateralon IMPRESSION: No acute radiographic abnormality. Purchasing Director: [facility] Transcribe Date/Time: Aug 05 2021 9:33A Dictated by : CHANTELL LIZ MD This examination was interpreted and the report reviewed and electronically signed by: CHANTELL LIZ MD on Aug 05 2021 9:34AM EST DEVYN_DO_NOT _USE_DIVIS ION OF RADIOLOGY * * *Final Report* * * DATE OF EXAM: Aug 05 2021 9:29AM WOX [id number] - XR CHEST 2V FRONTAL/LAT / PROCEDURE REASON: Cough * * * * Physician Interpretation * * * * EXAMINATION: CHEST RADIOGRAPH (2 VIEW FRONTAL & LATERAL) CLINICAL HISTORY: Cough MQ: [id number] EXAM DATE/TIME: 08/05/2021 9:29 AM COMPARISON: Chest x-ray dated January 08, 2016 RESULT: Lines, tubes, and devices: None. Lungs and pleura: No consolidation. No lung mass. No pleural effusion. No pneumothorax. Cardiomediastinal silhouette: Stable cardiomediastinal silhouette. Bones and soft tissues: Degenerative changes are present within the thoracic spine. ZZZ_DO_NOT _USE_DIVIS ION OF RADIOLOGY Provider, Arturo Morse [facility] - 08/05/2021 * * *Final Report* * * DATE OF EXAM: Aug 05 2021 9:29AM WOX 5291 - XR CHEST 2V FRONTAL/LAT / PROCEDURE REASON: Cough * * * * Physician Interpretation * * * * EXAMINATION: CHEST RADIOGRAPH (2 VIEW FRONTAL & LATERAL) CLINICAL HISTORY: Cough MQ: [id number] EXAM DATE/TIME: 08/05/2021 9:29 AM COMPARISON: Chest x-ray dated January 08, 2016 RESULT: Lines, tubes, and devices: None. Lungs and pleura: No consolidation. No lung mass. No pleural effusion. No pneumothorax. Cardiomediastinal silhouette: Stable cardiomediastinal silhouette. Bones and soft tissues: Degenerative changes are present within the thoracic spine. IMPRESSION IMPRESSION: No acute radiographic abnormality. Purchasing Director: [facility] Transcribe Date/Time: Aug 05 2021 9:33A Dictated by : CHANTELL LIZ MD This examination was interpreted and the report reviewed and electronically signed by: CHANTELL LIZ MD on Aug 05 2021 9:34AM EST [facility] Radiology Study observation (narrative) [facility] XR Chest PA and LateralOrder ed By: Cc Provider on 08-05-2021 [facility] XR Foot - right AP and Later al and obliqueon 02-24-2020 IMPRESSION: Healing fracture of the second proximal phalanx. Purchasing Director: [facility] Transcribe Date/Time: Feb 24 2020 4:46P Dictated by : CHANTELL LIZ MD This examination was interpreted and the report reviewed and electronically signed by: CHANTELL LIZ MD on Feb 24 2020 5:00PM [facility] DIVISION OF RADIOLOGY * * *Final Report* * * DATE OF EXAM: Feb 24 2020 4:40PM WOX 5337 - XR FOOT 3V AP/LAT/OBL RT / PROCEDURE REASON: Closed nondisplaced fracture of phalanx of lesser toe of right foot with routine * * * * Physician Interpretation * * * * CLINICAL INDICATION: Closed nondisplaced fracture follow-up TECHNIQUE: 3 view radiographic study of the right foot COMPARISON: 11/25/2019 FINDINGS: Healing, intra-articular comminuted fracture of the base of the second proximal phalanx which appears in stable alignment with healing manifest by bridging callus formation noting the fracture lucency remains evident. No additional acute osseous injury. Plantar calcaneal enthesophyte. DIVISION OF RADIOLOGY Provider, [facility] - 02/24/2020 * * *Final Report* * * DATE OF EXAM: Feb 24 2020 4:40PM WOX 5337 - XR FOOT 3V AP/LAT/OBL RT / PROCEDURE REASON: Closed nondisplaced fracture of phalanx of lesser toe of right foot with routine * * * * Physician Interpretation * * * * CLINICAL INDICATION: Closed nondisplaced fracture follow-up TECHNIQUE: 3 view radiographic study of the right foot COMPARISON: 11/25/2019 FINDINGS: Healing, intra-articular comminuted fracture of the base of the second proximal phalanx which appears in stable alignment with healing manifest by bridging callus formation noting the fracture lucency remains evident. No additional acute osseous injury. Plantar calcaneal enthesophyte. IMPRESSION IMPRESSION: Healing fracture of the second proximal phalanx. [facility] Transcribe Date/Time: Feb 24 2020 4:46P Dictated by : CHANTELL LIZ MD This examination was interpreted and the report reviewed and electronically signed by: CHANTELL LIZ MD on Feb 24 2020 5:00PM EST [facility] Radiology Study observation (narrative) [facility] XR Foot - right AP and Later al and obliqueOrdered By: Ccf Provider on 02-24-2020 [facility] Vital Signs Date Time Vital Sign Value Performing Clinician Facility 08-29-2024 12:07-0400 Body temperature 98.3 [degF] Dr. Santhosh Holden MD Work Phone: [facility] 08-29-2024 12:07-0400 Diastolic blood pressure 85 mm[Hg] Dr. Santhosh Holden MD Work Phone: 7(893)370-014001 [place] [address] 08-29-2024 12:07-0400 Heart rate 73 /min Dr. Santhosh Holden MD Work Phone: 4(958)930-179501 [place] [address] 08-29-2024 12:07-0400 Respiratory rate 16 /min Dr. Santhosh Holden MD Work Phone: 0(181)450-069405 [place] [address] 08-29-2024 12:07-0400 SaO2% (BldA) [Mass fraction] 100 % Dr. Santhosh Holden MD Work Phone: 2(697)146-550705 [place] [address] 08-29-2024 12:07-0400 Systolic blood pressure 134 mm[Hg] Dr. Santhosh Holden MD Work Phone: 9(171)700-487405 [place] [address] 08-29-2024 10:00-0400 Body mass index (BMI) [Ratio] 25.2 kg/m2 Dr. Santhosh Holden MD Work Phone: 6(137)470-384601 [place] [address] 08-29-2024 10:00-0400 Body weight 75.[address] Santhosh Holden MD Work Phone: 3(644)846-139505 [place] [address] 08-29-2024 09:19-0400 Body height 172.[address] Santhosh Holden MD Work Phone: [facility] 06-22-2024 12:34-0400 Body height 170.2 cm Jovanna Prince MD Work Phone: [facility] 06-22-2024 12:34-0400 Body mass index (BMI) [Ratio] 28.26 kg/m2 Jovanna Prince MD Work Phone: [facility] 06-22-2024 12:34-0400 Body weight 81.85 kg Jovanna Prince MD Work Phone: [facility] 06-22-2024 12:34-0400 Diastolic blood pressure 82 mm[Hg] Jovanna Prince MD Work Phone: [facility] 06-22-2024 12:34-0400 Heart rate 65 /min Jovanna Prince MD Work Phone: [facility] 06-22-2024 12:34-0400 SaO2% (BldA) [Mass fraction] 98 % Jovanna Prince MD Work Phone: [facility] 06-22-2024 12:34-0400 Systolic blood pressure 128 mm[Hg] Jovanna Prince MD Work Phone: [facility] 05-20-2024 14:02-0500 Body mass index (BMI) [Ratio] 28.19 kg/m2 Santhosh Holden MD Work Phone: [facility] 05-20-2024 14:02-0500 Body weight 81.65 kg Santhosh Holden MD Work Phone: [facility] 05-20-2024 14:02-0500 Diastolic blood pressure 62 mm[Hg] Santhosh Holden MD Work Phone: [facility] 05-20-2024 14:02-0500 Heart rate 65 /min Santhosh Holden MD Work Phone: [facility] 05-20-2024 14:02-0500 SaO2% (BldA) [Mass fraction] 97 % Santhosh Holden MD Work Phone: [facility] 05-20-2024 14:02-0500 Systolic blood pressure 120 mm[Hg] Santhosh Holden MD Work Phone: [facility] 01-08-2024 11:10-0400 Body height 170.2 cm Jovanna Prince MD Work Phone: [facility] 01-08-2024 11:10-0400 Body mass index (BMI) [Ratio] 31.77 kg/m2 Jovanna Prince MD Work Phone: [facility] 01-08-2024 11:10-0400 Body weight 92 kg Jovanna Prince MD Work Phone: [facility] 01-08-2024 11:10-0400 Diastolic blood pressure 77 mm[Hg] Jovanna Prince MD Work Phone: [facility] 01-08-2024 11:10-0400 Heart rate 74 /min Jovanna Prince MD Work Phone: [facility] 01-08-2024 11:10-0400 Systolic blood pressure 122 mm[Hg] Jovanna Prince MD Work Phone: [facility] 11-11-2023 10:05-0400 Body mass index (BMI) [Ratio] 33.36 kg/m2 Saumya Hashelli COAL SCREENER[employer] Work Phone: [facility] 11-11-2023 10:05-0400 Body weight 96.62 kg Saumya Vargas [employer]AL SCREENER.[employer] Work Phone: [facility] 11-11-2023 10:05-0400 Diastolic blood pressure 72 mm[Hg] Saumya Vargas [employer]AL SCREENER.[employer] Work Phone: [facility] 11-11-2023 10:05-0400 Heart rate 66 /min Saumya Vargas [employer]AL SCREENER.[employer] Work Phone: [facility] 11-11-2023 10:05-0400 Respiratory rate 16 /min Saumya Vargas [employer]AL SCREENER.[employer] Work Phone: [facility] 11-11-2023 10:05-0400 SaO2% (BldA) [Mass fraction] 96 % Saumya Vargas [employer]AL SCREENER.[employer] Work Phone: [facility] 11-11-2023 10:05-0400 Systolic blood pressure 120 mm[Hg] Saumya Vargas COAL SCREENER.[employer] Work Phone: [facility] 07-24-2023 10:15-0400 Body height 170.2 cm Santhosh Holden MD Work Phone: [facility] 07-24-2023 10:15-0400 Body mass index (BMI) [Ratio] 38.69 kg/m2 Santhosh Holden MD Work Phone: [facility] 07-24-2023 10:15-0400 Body weight 112.04 kg Santhosh Holden MD Work Phone: [facility] 07-24-2023 10:15-0400 Diastolic blood pressure 72 mm[Hg] Santhosh Holden MD Work Phone: [facility] 07-24-2023 10:15-0400 Heart rate 64 /min Santhosh Holden MD Work Phone: [facility] 07-24-2023 10:15-0400 SaO2% (BldA) [Mass fraction] 95 % Santhosh Holden MD Work Phone: [facility] 07-24-2023 10:15-0400 Systolic blood pressure 130 mm[Hg] Santhosh Holden MD Work Phone: [facility] 07-03-2023 15:10-0400 Body height 170.2 cm Jovanna Prince MD Work Phone: [facility] 07-03-2023 15:10-0400 Body mass index (BMI) [Ratio] 38.88 kg/m2 Jovanna Prince MD Work Phone: [facility] 07-03-2023 15:10-0400 Body weight 112.6 kg Jovanna Prince MD Work Phone: [facility] 07-03-2023 15:10-0400 Diastolic blood pressure 73 mm[Hg] Jovanna Prince MD Work Phone: [facility] 07-03-2023 15:10-0400 Heart rate 60 /min Jovanna Prince MD Work Phone: [facility] 07-03-2023 15:10-0400 SaO2% (BldA) [Mass fraction] 97 % Jovanna Prince MD Work Phone: [facility] 07-03-2023 15:10-0400 Systolic blood pressure 123 mm[Hg] Jovanna Prince MD Work Phone: [facility] 06-02-2023 15:07-0400 Body temperature 97 [degF] Rebecca Mireles APRN.[employer] Work Phone: [facility] 06-02-2023 15:07-0400 Body weight 113.4 kg Rebecca Mireles APRN.[employer] Work Phone: [facility] 06-02-2023 15:07-0400 Diastolic blood pressure 70 mm[Hg] Rebecca Mireles APRN.[employer] Work Phone: [facility] 06-02-2023 15:07-0400 Heart rate 77 /min Rebecca Mireles APRN.[employer] Work Phone: [facility] 06-02-2023 15:07-0400 Respiratory rate 20 /min Rebecca Mireles APRN.[employer] Work Phone: [facility] 06-02-2023 15:07-0400 SaO2% (BldA) [Mass fraction] 95 % Rebecca Mireles APRN.[employer] Work Phone: [facility] 06-02-2023 15:07-0400 Systolic blood pressure 110 mm[Hg] Rebecca Mireles APRN.[employer] Work Phone: [facility] 05-08-2023 14:11-0500 Body weight 112.5 kg Radha Andersen APRN.[employer] Work Phone: [facility] 05-08-2023 14:11-0500 Diastolic blood pressure 80 mm[Hg] Radha Andersen APRN.[employer] Work Phone: [facility] 05-08-2023 14:11-0500 Heart rate 70 /min Radha Andersen APRN.[employer] Work Phone: [facility] 05-08-2023 14:11-0500 SaO2% (BldA) [Mass fraction] 99 % Radha Andersen APRN.[employer] Work Phone: [facility] 05-08-2023 14:11-0500 Systolic blood pressure 122 mm[Hg] Radha Andersen APRN.[employer] Work Phone: [facility] 02-06-2023 12:53-0500 Body height 170.2 cm Farhat Gallardo DO Work Phone: [facility] 02-06-2023 12:53-0500 Body weight 117 kg Farhat Gallardo DO Work Phone: [facility] 02-06-2023 12:53-0500 Diastolic blood pressure 70 mm[Hg] Farhat Gallardo DO Work Phone: [facility] 02-06-2023 12:53-0500 Heart rate 68 /min Farhat Gallardo DO Work Phone: [facility] 02-06-2023 12:53-0500 SaO2% (BldA) [Mass fraction] 96 % Farhat Gallardo DO Work Phone: [facility] 02-06-2023 12:53-0500 Systolic blood pressure 118 mm[Hg] Farhat Gallardo DO Work Phone: [facility] 12-11-2022 13:25-0400 Body height 172.7 cm S[facility] PA-C Work Phone: [facility] 12-11-2022 13:25-0400 Body temperature 97 [degF] Sade Joey PA-C Work Phone: [facility] 12-11-2022 13:25-0400 Body weight 120.11 kg Sade [facility] PA-C Work Phone: [facility] 12-11-2022 13:25-0400 Diastolic blood pressure 76 mm[Hg] [facility] PA-C Work Phone: [facility] 12-11-2022 13:25-0400 Heart rate 75 /min [facility] PA-C Work Phone: [facility] 12-11-2022 13:25-0400 SaO2% (BldA) [Mass fraction] 95 % Sade Joey PA-C Work Phone: [facility] 12-11-2022 13:25-0400 Systolic blood pressure 138 mm[Hg] Sade Joey PA-C Work Phone: [facility] 12-05-2022 15:08-0400 Body weight 120.2 kg Santhosh Holden MD Work Phone: [facility] 12-05-2022 15:08-0400 Diastolic blood pressure 72 mm[Hg] Santhosh Holden MD Work Phone: [facility] 12-05-2022 15:08-0400 Heart rate 61 /min Santhosh Holden MD Work Phone: [facility] 12-05-2022 15:08-0400 SaO2% (BldA) [Mass fraction] 93 % Santhosh Holden MD Work Phone: [facility] 12-05-2022 15:08-0400 Systolic blood pressure 138 mm[Hg] Santhosh Holden MD Work Phone: [facility] 11-07-2022 11:06-0400 Body height 172.1 cm Jovanna Prince MD Work Phone: [facility] 11-07-2022 11:06-0400 Body weight 118.39 kg Jovanna Prince MD Work Phone: [facility] 11-07-2022 11:06-0400 Diastolic blood pressure 75 mm[Hg] Jovanna Prince MD Work Phone: [facility] 11-07-2022 11:06-0400 Heart rate 62 /min Jovanna Prince MD Work Phone: [facility] 11-07-2022 11:06-0400 SaO2% (BldA) [Mass fraction] 97 % Jovanna Prince MD Work Phone: [facility] 11-07-2022 11:06-0400 Systolic blood pressure 151 mm[Hg] Jovanna Prince MD Work Phone: [facility] 10-29-2022 15:27-0400 Body height 172.72 cm [facility] 10-29-2022 15:27-0400 Body mass index (BMI) [Ratio] 40.3 kg/m2 [facility] 10-29-2022 15:27-0400 Body temperature 97.8 [degF] [facility] 10-29-2022 15:27-0400 Body weight 120.38 kg [facility] 10-29-2022 15:27-0400 Diastolic blood pressure 98 mm[Hg] [facility] 10-29-2022 15:27-0400 Heart rate 98 /min [facility] 10-29-2022 15:27-0400 Respiratory rate 14 /min [facility] 10-29-2022 15:27-0400 SaO2% (BldA) [Mass fraction] 95 % [facility] 10-29-2022 15:27-0400 Systolic blood pressure 158 mm[Hg] [facility] 10-29-2022 14:52-0400 Body temperature 97.3 [degF] Teresa Praisler-Wood [employer] S[employer]ENER[employer] Work Phone: [facility] 10-29-2022 14:52-0400 Body weight 120.47 kg Teresa Praisler-Wood COAL SCREENER.[employer] Work Phone: [facility] 10-29-2022 14:52-0400 Diastolic blood pressure 80 mm[Hg] Teresa Praisler-Wood COAL SCREENER.[employer] Work Phone: [facility] 10-29-2022 14:52-0400 Heart rate 62 /min Teresa Praisler-Wood COAL SCREENER.[employer] Work Phone: [facility] 10-29-2022 14:52-0400 Respiratory rate 18 /min Teresa Praisler-Wood COAL SCREENER.[employer] Work Phone: [facility] 10-29-2022 14:52-0400 SaO2% (BldA) [Mass fraction] 97 % Teresa Praisler-Wood COAL SCREENER.[employer] Work Phone: [facility] 10-29-2022 14:52-0400 Systolic blood pressure 146 mm[Hg] Teresa Praisler-Wood COAL SCREENER.[employer] Work Phone: [facility] 05-29-2022 09:46-0500 Body weight 117.94 kg Santhosh Holden MD Work Phone: [facility] 05-29-2022 09:46-0500 Diastolic blood pressure 72 mm[Hg] Santhosh Holden MD Work Phone: [facility] 05-29-2022 09:46-0500 Heart rate 71 /min Santhosh Holden MD Work Phone: [facility] 05-29-2022 09:46-0500 SaO2% (BldA) [Mass fraction] 95 % Santhosh Holden MD Work Phone: [facility] 05-29-2022 09:46-0500 Systolic blood pressure 132 mm[Hg] Santhosh Holden MD Work Phone: [facility] 10-07-2021 13:34-0400 Body height 172.1 cm Saumya Haagen [employer] S[employer]ENER[employer] Work Phone: [facility] 10-07-2021 13:34-0400 Body temperature 96.21 [degF] Saumya Haagen CO[employer] SCREENER.[employer] Work Phone: [facility] 10-07-2021 13:34-0400 Body weight 121.93 kg Saumya Haagen CO[employer] SCREENER[employer] Work Phone: [facility] 10-07-2021 13:34-0400 Diastolic blood pressure 84 mm[Hg] Saumya Haagen CO[employer] SCREENER[employer] Work Phone: [facility] 10-07-2021 13:34-0400 Heart rate 68 /min Saumya Haagen CO[employer] SCREENER[employer] Work Phone: [facility] 10-07-2021 13:34-0400 Respiratory rate 18 /min Saumya Haagen CO[employer] SCREENER[employer] Work Phone: [facility] 10-07-2021 13:34-0400 SaO2% (BldA) [Mass fraction] 95 % Saumya Haagen [employer] S[employer]ENER[employer] Work Phone: [facility] 10-07-2021 13:34-0400 Systolic blood pressure 136 mm[Hg] Saumya Haagen [employer] S[employer]ENER[employer] Work Phone: [facility] 08-05-2021 08:31-0400 Body temperature 97.59 [degF] Poonam Garrido PA-C Work Phone: [facility] 08-05-2021 08:31-0400 Body weight 121.38 kg Poonam Latashay PA-C Work Phone: [facility] 08-05-2021 08:31-0400 Diastolic blood pressure 68 mm[Hg] Poonam Athy PA-C Work Phone: [facility] 08-05-2021 08:31-0400 Heart rate 72 /min Poonam Athy PA-C Work Phone: [facility] 08-05-2021 08:31-0400 Respiratory rate 18 /min Poonam Athy PA-C Work Phone: [facility] 08-05-2021 08:31-0400 SaO2% (BldA) [Mass fraction] 95 % Poonam Athy PA-C Work Phone: [facility] 08-05-2021 08:31-0400 Systolic blood pressure 122 mm[Hg] Poonam Athy PA-C Work Phone: [facility] Encounters Encounter Date Encounter Type Care Provider Facility Start: 09-02-2024 End: 09-02-2024 [facility] Start: 08-29-2024 End: 08-29-2024 Emergency department patient visit Dr. Santhosh Holden MD Work Phone: -Emergency Department Work Phone: Start: 07-27-2024 End: 07-27-2024 Refill Santhosh Holden MD Work Phone: [facility] Comment on above: Refill Request Start: 07-22-2024 End: 07-22-2024 Refill Santhosh Holden MD Work Phone: [facility] Comment on above: Refill Request Start: 06-22-2024 End: 06-22-2024 ambulatory SANTHOSH HOLDEN Facility:[facility] Start: 06-22-2024 End: 06-22-2024 Patient encounter procedure Jovanna Prince MD Work Phone: Neurology Comment on above: Tremor (Primary Dx); Migraine without aura, intractable, with status migrainosus; Memory difficulty; Drug-induced parkinsonism (HCC) Start: 06-20-2024 End: 06-21-2024 Refill Santhosh Holden MD Work Phone: [facility] Comment on above: Refill Request Start: 06-07-2024 End: 06-08-2024 Refill Santhosh Holden MD Work Phone: [facility] Comment on above: Refill Request Start: 06-06-2024 End: 08-06-2024 Follow-up encounter Santhosh Holden MD Work Phone: [facility] Start: 06-03-2024 End: 06-03-2024 Patient encounter procedure Dru Sahu Work Phone: Podiatry Comment on above: Closed nondisplaced fracture of phalanx of right great toe, unspecified phalanx, initial encounter (Primary Dx); Ulcer of toe of left foot, limited to breakdown of skin (HCC); Porokeratosis; Hammertoe of right foot Start: 06-03-2024 End: 06-03-2024 Subsequent hospital visit by physician Akira [facility] Work Phone: Radiology Comment on above: Closed nondisplaced fracture of phalanx of right great toe, unspecified phalanx, initial encounter [S92.404A] Renal insufficiency [N28.9] Start: 06-03-2024 End: 06-03-2024 ambulatory SANTHOSH HOLDEN Facility:[facility] Start: 06-02-2024 End: 06-02-2024 ambulatory SANTHOSH HOLDEN Facility:[facility] Start: 06-02-2024 End: 06-02-2024 Patient encounter procedure Ros Ortiz OD Work Phone: Ophthalmology Comment on above: Type 2 diabetes preston itus without retinopathy (HCC) (Primary Dx); Combined forms of age-related cataract of both eyes; Dry eye syndrome of bilateral lacrimal glands; Presbyopia Start: 05-26-2024 End: 05-26-2024 ambulatory Santhosh Holden MD Work Phone: [facility] Comment on above: Hearing Start: 05-26-2024 End: 07-26-2024 Follow-up encounter Dru Collado MD Work Phone: [facility] [place] Start: 05-23-2024 End: 07-23-2024 Follow-up encounter Santhosh Holden MD Work Phone: [facility] Start: 05-23-2024 End: 05-25-2024 Telephone encounter Santhosh Holden MD Work Phone: [facility] Comment on above: Results Start: 05-20-2024 End: 05-20-2024 ambulatory SANTHOSH HOLDEN Facility:[facility] Start: 05-20-2024 End: 05-20-2024 Patient encounter procedure Santhosh Holden MD Work Phone: [facility] Comment on above: Chronic nonintractab le headache, unspecified headache type (Primary Dx); Fibromyalgia; Essential tremor; Primary hypertension; Other hyperlipidemia; Mild CAD; Coronary-myocardial bridge; [id number] (obstructive sleep apnea); Gastroesophageal reflux disease without esophagitis; 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; Liver fibrosis; Heartburn; Type 2 diabetes mellitus with diabetic neuropathy, without long-term current use of insulin (HCC); Hypothyroidism, unspecified type; H/O gastric bypass; Gait instability; Encounter for immunization Start: 05-17-2024 End: 05-17-2024 Refill [facility] Comment on above: Refill Request Start: 05-13-2024 End: 05-16-2024 Refill Saumya Vargas APRN.CNP Work Phone: [facility] Comment on above: Refill Request Closed displaced fra cture of phalanx of right great toe, unspecified phalanx, initial encounter [S92.401A] Closed nondisplaced fracture of phalanx of right great toe, unspecified phalanx, initial encounter (Primary Dx); Open wound of toe, initial encounter; Ulcer of toe of left foot, limited to breakdown of skin (HCC) Start: 05-11-2024 End: 07-11-2024 Follow-up encounter Dru Sahu Work Phone: Podiatry Start: 05-10-2024 End: 05-10-2024 Patient encounter procedure Zeenat Johnston MD Work Phone: Infectious Disease Start: 05-06-2024 End: 05-10-2024 Telephone encounter Dru Sahu Work Phone: Podiatry Comment on above: Patient Update Start: 05-05-2024 End: 05-05-2024 Subsequent hospital visit by physician Akira [facility] Work Phone: Radiology Comment on above: Cellulitis and absce ss of toe of right foot [L03.031, L02.611] Start: 05-05-2024 End: 05-05-2024 ambulatory SANTHOSH HOLDEN Facility:[facility] Start: 05-05-2024 End: 05-06-2024 Patient encounter procedure Dru Adelina Work Phone: Podiatry Comment on above: Cellulitis and absce ss of toe of right foot (Primary Dx); Open wound of toe, initial encounter Refill Request Start: 04-25-2024 End: 04-25-2024 Refill Santhosh Holden MD Work Phone: [facility] Comment on above: Refill Request Start: 04-01-2024 End: 04-04-2024 ambulatory Dru Sahu Work Phone: Podiatry Comment on above: wound culture Start: 04-01-2024 End: 04-04-2024 E-mail encounter from caregiver Dru Adelina Work Phone: Podiatry Start: 03-29-2024 End: 03-29-2024 ambulatory SANTHOSH HOLDEN Facility:[facility] Start: 03-29-2024 End: 03-29-2024 Patient encounter procedure Dru Sahu Work Phone: Podiatry Comment on above: Cellulitis and absce ss of toe of right foot (Primary Dx) Start: 03-16-2024 End: 03-21-2024 ambulatory Santhosh Holden MD Work Phone: Internal Medicine [place] [id number] Start: 02-17-2024 End: 02-19-2024 Refill Santhosh Holden MD Work Phone: [facility] Comment on above: Refill Request Start: 02-16-2024 End: 02-17-2024 Refill Farhat Gallardo DO Work Phone: Cardiology Comment on above: Refill Request Start: 01-29-2024 End: 01-29-2024 Refill Jovanna Prince MD Work Phone: Neurology Comment on above: Refill Request Start: 01-19-2024 End: 01-19-2024 Refill Santhosh Holden MD Work Phone: [facility] Comment on above: Refill Request Start: 01-08-2024 End: 01-08-2024 ambulatory SANTHOSH HOLDEN Facility:[facility] Start: 01-08-2024 End: 01-08-2024 Office outpatient visit 15 minutes Jovanna Prince MD Work Phone: Neurology Comment on above: Tremor (Primary Dx); Migraine without aura, intractable, with status migrainosus Start: 01-05-2024 End: 01-06-2024 Refill Santhosh Holden MD Work Phone: [facility] Comment on above: Refill Request Start: 12-25-2023 End: 12-25-2023 ambulatory SANTHOSH HOLDEN Facility:[facility] Start: 12-25-2023 End: 12-25-2023 Patient encounter procedure Jose HARTLEY Work Phone: Audiology Comment on above: Tinnitus, right ear (Primary Dx); Bilateral hearing loss, unspecified hearing loss type; Other specified hearing loss, unspecified ear; Dizziness and giddiness; Sensorineural hearing loss, bilateral Sensorineural hearin g loss (SNHL) of both ears (Primary Dx) Start: 12-18-2023 End: 12-18-2023 Refill Nanette Carroll APRN.CNP Work Phone: [facility] Comment on above: Refill Request Start: 12-01-2023 End: 12-01-2023 Refill Jovanna Prince MD Work Phone: Neurology Comment on above: Refill Request Start: 11-20-2023 End: 11-20-2023 Refill Nanette Carroll APRN.[employer]ENANT Work Phone: [facility] Comment on above: Refill Request Start: 11-16-2023 End: 11-17-2023 Refill Santhosh Holden MD Work Phone: [facility] Comment on above: Refill Request Start: 11-11-2023 End: 11-11-2023 ambulatory SANTHOSH HOLDEN Facility:[facility] Start: 11-11-2023 End: 11-11-2023 Office outpatient visit 25 minutes Saumya Vargas APRN.THIRD SH[employer]IEUTENANT Work Phone: [facility] Comment on above: Type 2 diabetes preston itus with diabetic neuropathy, without long-term current use of insulin (HCC) (Primary Dx); Fibromyalgia; Other hyperlipidemia; KRZYSZTOF (obstructive sleep apnea); Essential tremor; Hypothyroidism, unspecified type; Powers's esophagus with dysplasia; Bipolar 1 disorder (HCC) Start: 11-11-2023 End: 11-11-2023 ambulatory SANTHOSH HOLDEN Facility:[facility] Start: 11-10-2023 End: 11-11-2023 ambulatory Santhosh Holden MD Work Phone: [facility] Comment on above: Gabapentin 600 Refill Request Start: 10-16-2023 Refill Santhosh Holden MD Work Phone: [facility] Comment on above: Refill Request Start: 09-23-2023 Orders Only Dru casillas MD Work Phone: [facility] [place] Comment on above: Other specified hear ing loss, unspecified ear (Primary Dx) Ear,nose and throat doc Start: 09-13-2023 End: 09-13-2023 Letter encounter Nory Villeda DO Work Phone: [facility] Start: 09-08-2023 ambulatory Santhosh Holden MD Work Phone: [facility] Comment on above: Zertex Start: 09-06-2023 ambulatory Santhosh Holden MD Work Phone: [facility] [place] Comment on above: ENT Start: 08-28-2023 ambulatory Santhosh Holden MD Work Phone: [facility] [place] Comment on above: Ozempic Diabetic supplys Start: 08-24-2023 Refill Santhosh Holden MD Work Phone: [facility] Comment on above: Refill Request Start: 08-17-2023 Refill Nanette Jung uppan COAL SCREENER.BARIATRIC COORDINATOR Work Phone: [facility] [place] Comment on above: Refill Request Start: 08-15-2023 ambulatory Santhosh Holden MD Work Phone: [facility] Comment on above: Sleep apnea test Start: 08-05-2023 Refill Santhosh Holden MD Work Phone: [facility] Comment on above: Refill Request Start: 08-04-2023 Refill Santhosh Holden MD Work Phone: [facility] Comment on above: Refill Request Start: 08-03-2023 ambulatory Santhosh Holden MD Work Phone: [facility] Comment on above: Medication Question (Not Renewal) Start: 07-30-2023 ambulatory Jovanna Prince MD Work Phone: Neurology Comment on above: Non-Urgent Medical Q uestion Start: 07-24-2023 End: 07-24-2023 ambulatory SANTHOSH HOLDEN Facility:[facility] Start: 07-24-2023 End: 07-24-2023 Patient encounter procedure Santhosh Holden MD Work Phone: [facility] Comment on above: KRZYSZTOF (obstructive sle ep apnea) (Primary Dx) Start: 07-20-2023 ambulatory Santhosh Holden MD Work Phone: [facility] Comment on above: Non-Urgent Medical Q uestion Start: 07-15-2023 ambulatory Santhosh Holden MD Work Phone: [facility] Comment on above: Non-Urgent Medical Q uestion Start: 07-13-2023 ambulatory Santhosh Holden MD Work Phone: [facility] [place] Comment on above: Medication Question (Not Renewal) Start: 07-03-2023 End: 07-03-2023 ambulatory SANTHOSH HOLDEN Facility:[facility] Start: 07-03-2023 End: 07-03-2023 Patient encounter procedure Jovanna Prince MD Work Phone: Neurology Comment on above: Tremor (Primary Dx); Migraine without aura, intractable, with status migrainosus Start: 06-07-2023 Letter encounter [employer] Work Phone: Start: 06-04-2023 ambulatory Santhosh Holden MD Work Phone: [facility] Comment on above: Non-Urgent Medical Q uestion Start: 06-02-2023 End: 06-02-2023 Subsequent hospital visit by physician Xr [facility] Work Phone: Radiology Comment on above: Acute cough [R05.1] Start: 06-02-2023 End: 06-02-2023 Patient encounter procedure Ros Ortiz OD Work Phone: Ophthalmology Comment on above: Type 2 diabetes preston itus without retinopathy (HCC) (Primary Dx); Combined forms of age-related cataract of both eyes; Dry eye syndrome of bilateral lacrimal glands; Presbyopia Acute cough (Primary Dx); Rhinosinusitis Start: 05-26-2023 ambulatory Santhosh Holden MD Work Phone: [facility] [place] Comment on above: Non-Urgent Medical Q uestion Start: 05-25-2023 ambulatory Santhosh Holden MD Work Phone: [facility] [place] Comment on above: Non-Urgent Medical Q uestion Refill Request Start: 05-22-2023 Telephone encounter Santhosh Holden MD Work Phone: [facility] Comment on above: requesting medicatio n on list; Appointment Refill Request Start: 05-19-2023 Refill Santhosh Holden MD Work Phone: [facility] Comment on above: Refill Request Start: 05-08-2023 End: 05-08-2023 Patient encounter procedure Radha Andersen [employer] Work Phone: Cardiology Comment on above: Mild CAD (Primary Dx ); SOB (shortness of breath); Primary hypertension; Other hyperlipidemia Start: 05-04-2023 ambulatory Santhosh Holden MD Work Phone: [facility] [place] Comment on above: Medication Question (Not Renewal) Start: 04-24-2023 ambulatory Santhosh Holden MD Work Phone: [facility] [place] Comment on above: Non-Urgent Medical Q uestion Start: 03-12-2023 End: 03-12-2023 ambulatory SADE ALSTON Facility:[facility] Start: 02-18-2023 Refill J Luis Wong on PA-C Work Phone: [facility] Comment on above: Refill Request Start: 02-06-2023 End: 02-06-2023 Patient encounter procedure Farhat Gallardo DO Work Phone: Cardiology Comment on above: Coronary-myocardial bridge (Primary Dx); Mild CAD; Primary hypertension; Mixed hyperlipidemia; KRZYSZTOF (obstructive sleep apnea) Start: 02-06-2023 End: 02-06-2023 ambulatory FARHAT GALLARDO Facility:[facility] Start: 02-04-2023 Refill Santhosh Holden MD Work Phone: [facility] Comment on above: Refill Request Start: 01-18-2023 Refill Santhosh Holden MD Work Phone: [facility] Comment on above: Refill Request Start: 12-11-2022 End: 12-11-2022 Patient encounter procedure Sade Alston PA-C Work Phone: General Surgery Comment on above: 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; History of colonic polyps Start: 12-09-2022 ambulatory Santhosh Holden MD Work Phone: [facility] Comment on above: Medication Question (Not Renewal) Start: 12-05-2022 End: 12-05-2022 Patient encounter procedure Santhosh Holden MD Work Phone: [facility] Comment on above: Tremor (Primary Dx); Encounter for immunization; Degenerative disease of nervous system, unspecified (HCC); Neuropathy; Fibromyalgia; Chronic nonintractable headache, unspecified headache type; Coronary-myocardial bridge; Primary hypertension; Other hyperlipidemia; KRZYSZTOF (obstructive sleep apnea); 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; Liver fibrosis; Type 2 diabetes mellitus with diabetic neuropathy, without long-term current use of insulin (HCC); Hypothyroidism, unspecified type; H/O gastric bypass; Gait instability; History of colonic polyps; Coronary artery disease involving [place] heart without angina pectoris, unspecified vessel or lesion type; Memory loss; Screening for HIV (human immunodeficiency virus) Start: 12-01-2022 End: 12-01-2022 Patient encounter procedure Ros Ortiz OD Work Phone: Ophthalmology Comment on above: Dry eye syndrome of bilateral lacrimal glands (Primary Dx); Type 2 diabetes mellitus without retinopathy (HCC); Combined forms of age-related cataract of both eyes; Presbyopia Start: 12-01-2022 Telephone encounter Santhosh Holden MD Work Phone: [address] [place] [address] Comment on above: Orders Start: 11-25-2022 Refill Santhosh Holden MD Work Phone: [facility] Comment on above: Refill Request Start: 11-19-2022 End: 11-19-2022 Patient encounter procedure Dru Adelina Work Phone: Podiatry Comment on above: Hammertoe of right f oot (Primary Dx); Other diabetic neurological complication associated with type 2 diabetes mellitus (HCC) Start: 11-19-2022 Telephone encounter Santhosh Holden MD Work Phone: [facility] Comment on above: Medication Problem Start: 11-18-2022 Refill Santhosh Holden MD Work Phone: [facility] Comment on above: Refill Request Start: 11-07-2022 End: 11-07-2022 Patient encounter procedure Jovanna Prince MD Work Phone: Neurology Comment on above: Tremor (Primary Dx); Migraine without aura, intractable, with status migrainosus Start: 11-04-2022 Refill Santhosh Holden MD Work Phone: [facility] Comment on above: Refill Request Start: 10-29-2022 End: 10-29-2022 Emergency department patient visit [facility] Work Phone: Start: 10-29-2022 End: 10-29-2022 Patient encounter procedure Teresa MuñozStuart ARNOLD Work Phone: [facility] Comment on above: Loss of balance (Rosie ion Dx); Multiple falls Start: 10-27-2022 Refill Santhosh Holden MD Work Phone: [facility] Comment on above: Refill Request Start: 10-22-2022 ambulatory Santhosh Holden MD Work Phone: [facility] Comment on above: Non-Urgent Medical Q uestion Start: 10-15-2022 End: 10-15-2022 Patient encounter procedure Dru Sahu Work Phone: Podiatry Comment on above: Closed displaced fra cture of phalanx of lesser toe of right foot, unspecified phalanx, initial encounter (Primary Dx); Hammertoe of right foot Start: 10-15-2022 End: 10-15-2022 Subsequent hospital visit by physician Akira [facility] Work Phone: Radiology Comment on above: Pain [R52] Start: 09-30-2022 Telephone encounter Santhosh Holden MD Work Phone: [facility] Comment on above: Insurance Authorizat ion (GETTER FILLER thyroid) Start: 09-25-2022 Refill Santhosh Holden MD Work Phone: [facility] Comment on above: Refill Request Pain (Primary Dx) Start: 09-18-2022 Refill Santhosh Holden MD Work Phone: [facility] Comment on above: Refill Request Start: 09-16-2022 Refill Santhosh Holden MD Work Phone: [facility] Comment on above: Refill Request Start: 09-08-2022 Letter encounter [facility] Start: 08-27-2022 Refill Santhosh Holden MD Work Phone: [facility] [place] Comment on above: Refill Request Start: 08-18-2022 ambulatory Jovanna Prince MD Work Phone: Neurology Comment on above: Medication Question (Not Renewal) Start: 08-04-2022 Refill Santhosh Holden MD Work Phone: [facility] Comment on above: Refill Request Start: 07-29-2022 Refill Santhosh Holden MD Work Phone: [facility] Comment on above: Refill Request Start: 07-17-2022 Refill Santhosh Holden MD Work Phone: [facility] Comment on above: Refill Request Start: 06-23-2022 Refill J Luis Moura Marvin on PA-C Work Phone: [facility] Comment on above: Refill Request Start: 06-15-2022 Letter encounter Nory Sanchez Work Phone: [facility] Start: 06-13-2022 End: 06-13-2022 ambulatory Kaylene Zhu [facility] Comment on above: Abnormal posture (Pr imary Dx) Start: 06-06-2022 Documentation procedure Mammog michelle Coordinator [facility] Start: 06-06-2022 Letter encounter Mammography Coordinator [facility] Department Start: 06-06-2022 Telephone encounter Santhosh Holden MD Work Phone: [facility] Comment on above: Results Start: 06-06-2022 End: 06-06-2022 Subsequent hospital visit by physician Screen Mammo [facility] Comment on above: Screening breast exa mination [Z12.39] Start: 05-30-2022 End: 05-30-2022 Refill Santhosh Holden MD Work Phone: [facility] Comment on above: Refill Request Type 2 diabetes preston itus without retinopathy (HCC) (Primary Dx); Dry eye syndrome of bilateral lacrimal glands; Combined forms of age-related cataract of both eyes; Presbyopia Start: 05-29-2022 End: 05-29-2022 Subsequent hospital visit by physician Akira [facility] Work Phone: Radiology Comment on above: physical Start: 05-29-2022 End: 05-29-2022 Patient encounter procedure Santhosh Holden MD Work Phone: [facility] Comment on above: Primary hypertension (Primary Dx); Encounter for immunization; Screening for diabetic retinopathy; Type 2 diabetes mellitus with diabetic neuropathy, without long-term current use of insulin (HCC); Bipolar 1 disorder (HCC); Non-pressure chronic ulcer of other part of unspecified foot with unspecified severity (HCC); Degenerative disease of nervous system, unspecified (HCC); Neuropathy; Coronary-myocardial bridge; Mild CAD; Other hyperlipidemia; Essential tremor; KRZYSZTOF (obstructive sleep apnea); 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; Liver fibrosis; DDD (degenerative disc disease), lumbar; Anxiety neurosis; H/O gastric bypass; Ataxia; Fall, subsequent encounter; Screening for colon cancer; Finger pain, right; Hypothyroidism, unspecified type; Screening breast examination; Need for vaccination Start: 05-23-2022 Refill Santhosh Holden MD Work Phone: [facility] Comment on above: Refill Request Start: 05-06-2022 Refill Santhosh Hodlen MD Work Phone: [facility] Comment on above: Refill Request Start: 04-28-2022 Refill Santhosh Holden MD Work Phone: [facility] Comment on above: Refill Request Start: 03-26-2022 Refill Santhosh Holden MD Work Phone: [facility] Comment on above: Refill Request Start: 03-17-2022 Letter encounter Nory Sanchez Work Phone: [facility] Start: 02-24-2022 End: 02-24-2022 Patient encounter procedure Dru Sahu Work Phone: Podiatry Comment on above: Hammertoe of right f oot (Primary Dx) Start: 02-04-2022 Refill Santhosh Holden MD Work Phone: [facility] Comment on above: Refill Request Start: 01-31-2022 Refill Saumya Vargas [place] Work Phone: [facility] Comment on above: Refill Request Start: 01-30-2022 Refill Santhosh Holden MD Work Phone: [facility] Comment on above: Refill Request Start: 01-24-2022 End: 01-24-2022 Patient encounter procedure Dru Sahu Work Phone: Podiatry Comment on above: Post-operative state (Primary Dx); Hammertoe of right foot Start: 01-17-2022 End: 01-17-2022 Patient encounter procedure Dru Sahu Work Phone: Podiatry Comment on above: Post-operative state (Primary Dx); Hammertoe of left foot Start: 01-17-2022 End: 01-17-2022 Subsequent hospital visit by physician Akira [facility] Work Phone: Radiology Comment on above: Hammer toe of left f oot [M20.42] Start: 01-10-2022 End: 01-10-2022 Patient encounter procedure Dru Sahu Work Phone: Podiatry Comment on above: Post-operative state (Primary Dx) Start: 01-06-2022 Telephone encounter Dru Wilson Work Phone: Podiatry Comment on above: Patient Update Start: 01-05-2022 Orders Only Dru cuellar Work Phone: Podiatry Comment on above: Hammertoe of left fo ot (Primary Dx) Start: 01-01-2022 End: 01-01-2022 Patient encounter procedure Dru Sahu Work Phone: Podiatry Comment on above: Other diabetic neuro logical complication associated with type 2 diabetes mellitus (HCC) (Primary Dx); Hammertoe of left foot; Ulcer of toe of left foot, limited to breakdown of skin (HCC) Start: 12-30-2021 Refill Santhosh Holden MD Work Phone: [facility] [place] Comment on above: Refill Request Start: 12-18-2021 End: 12-18-2021 Subsequent hospital visit by physician Akira [facility] Work Phone: Radiology Comment on above: Other diabetic neuro logical complication associated with type 2 diabetes mellitus (HCC) [E11.49] Start: 12-17-2021 Refill Santhosh Holden MD Work Phone: [facility] [place] Comment on above: Refill Request Start: 11-29-2021 Refill Santhosh Holden MD Work Phone: [facility] Comment on above: Refill Request Start: 11-26-2021 Refill Santhosh Holden MD Work Phone: [facility] Comment on above: Refill Request Start: 11-21-2021 Refill Santhosh Holden MD Work Phone: [facility] Comment on above: Refill Request Start: 10-31-2021 Refill Santhosh Holden MD Work Phone: [facility] Comment on above: Refill Request Start: 10-14-2021 Telephone encounter Saumya marques APRN.CNP Work Phone: [facility] Comment on above: Results Start: 10-07-2021 End: 10-07-2021 Office outpatient visit 25 minutes Saumya Vargas APRN.CNP Work Phone: [facility] Comment on above: Type 2 diabetes preston itus without complication, unspecified whether extermination inspector insulin use (HCC) (Primary Dx); Primary hypertension; Hypothyroidism, unspecified type; Microalbuminuria; Essential hypertension; Other hyperlipidemia; Iron deficiency anemia, unspecified iron deficiency anemia type; Depression, unspecified depression type; KRZYSZTOF (obstructive sleep apnea) Start: 10-04-2021 End: 10-04-2021 Patient encounter procedure Dru Sahu Work Phone: Podiatry Comment on above: Ulcer of toe of left foot, limited to breakdown of skin (HCC) (Primary Dx); Other diabetic neurological complication associated with type 2 diabetes mellitus (HCC) Start: 10-03-2021 Refill Santhosh Holden MD Work Phone: [facility] Comment on above: Refill Request Lab Orders (upcoming appt 10/07) Start: 09-30-2021 Refill Santhosh Holden MD Work Phone: [facility] Comment on above: Refill Request; Refi ll Request Start: 09-15-2021 Letter encounter Nory Villeda Юлия Sanchez Work Phone: [facility] Start: 08-29-2021 Refill Santhosh Zepeda (Historical) Navin Work Phone: [facility] Comment on above: Refill Request Start: 08-12-2021 Telephone encounter Santhosh Holden MD Work Phone: [facility] Comment on above: Medication Question Start: 08-09-2021 End: 08-09-2021 Patient encounter procedure Dru Sahu Work Phone: Podiatry Comment on above: Ulcer of toe of left foot, limited to breakdown of skin (HCC) (Primary Dx); Other diabetic neurological complication associated with type 2 diabetes mellitus ([facility]); Diminished pulses in lower extremity; Onychomycosis Start: 08-09-2021 End: 08-09-2021 Subsequent hospital visit by physician Akira [facility] Work Phone: Radiology Comment on above: Pain [R52] Start: 08-08-2021 Telephone encounter Teresa Pearson APRN.CNP Work Phone: [facility] Comment on above: Results Start: 08-05-2021 End: 08-05-2021 Subsequent hospital visit by physician Akira [facility] Work Phone: Radiology Comment on above: Cough [R05.9] Start: 08-05-2021 End: 08-05-2021 Patient encounter procedure Poonam Garrido PA-C Work Phone: [facility] Comment on above: Sinobronchitis (Prim ilya Dx) Start: 08-02-2021 Telephone encounter Santhosh Zepeda (Historical) Navin Work Phone: [facility] Comment on above: Orders (refill reque st) Start: 07-04-2021 Telephone encounter Santhosh Holden MD Work Phone: [facility] [place] Comment on above: Insurance Authorizat ion ([place] Thyroid 60 mg) Start: 07-02-2021 Refill Santhosh Holden MD Work Phone: [facility] Comment on above: Refill Request Start: 02-24-2020 End: 02-24-2020 Subsequent hospital visit by physician Xr [facility] Work Phone: Radiology Comment on above: Closed nondisplaced fracture of phalanx of lesser toe of right foot with routine healing, unspecified phalanx, subsequent encounter [S92.504D] Start: 07-18-2019 ambulatory UNKNOWN PROVIDER Facili ty:[facility] Procedures Date Procedure Procedure Detail Performing Clinician Start: 08-29-2024 CT cervical spine wi thout contrast Dr. Santhosh Holden MD Work Phone: Start: 08-29-[address] Raymundo Holden MD Work Phone: Start: 08-29-2024 CT of head without contrast Dr. Santhosh Holden MD Work Phone: Start: 05-20-[address] [employer] [address] [employer] COVI D-19 VACCINE AGE 12+ YR (COMIRNATY) Santhosh Holden MD Work Phone: Start: 05-05-2024 Radex toe minimum 2 views Dru Sahu Work Phone: Start: 12-25-2023 HEARING TEST/AUDIOGRAM Dru Collado MD Work Phone: Start: 06-02-2023 Radiologic exam ches t 2 views Rebecca Mireles APRN.CNP Work Phone: Start: 02-07-2023 Ecg routine ecg w/le ast 12 lds trcg only w/o i&r [facility] Provider Start: 12-05-2022 INFLUENZA VACCINE, A GE 6 MO - 64 YR, QUADRIVALENT (AFLURIA, FLULAVAL, FLUZONE) Santhosh Holden MD Work Phone: Start: 10-29-2022 Plain X-ray of femur Start: 10-29-2022 Plain x-ray of elbow Start: 10-29-2022 Plain x-ray of wrist Start: 10-15-2022 Radex foot complete minimum 3 views Dru Sahu Work Phone: Start: 06-06-2022 End: 06-06-2022 Mammography Santhosh Holden MD Work Phone: Start: 05-29-2022 Radex fingr minimum 2 views Santhosh Holden MD Work Phone: Start: 05-29-2022 [employer] COVI D-19 BIVALENT BOOSTER VACCINE, AGE 12+ YR Santhosh Holden MD Work Phone: Start: 01-17-2022 Radex foot complete minimum 3 views Ashwin Okeefe DPM Work Phone: Start: 08-09-2021 Radex foot complete minimum 3 views Dru Sahu Work Phone: Start: 08-05-2021 Radiologic exam ches t 2 views Poonam Garrido PA-C Work Phone: Start: 04-10-2020 Mammography Santhosh Curtis MD Work Phone: Start: 02-24-2020 Radex foot complete minimum 3 views Santhosh Holden MD Work Phone: Start: 04-19-2019 Microscopic observat ion [Identifier] in Cervix by Cyto stain Nory Villeda DO Work Phone: Start: 01-10-2015 Colonoscopy Santhosh Curtis MD Work Phone: Start: 06-20-2014 End: 05-20-2024 H/O: tubal ligation H/O tubal ligation Nory Villeda DO Work Phone: Plan of Treatment Date Care Activity Detail Author Start: 03-12-2028 Screening for malignant neoplasm of colon [facility] Start: 06-09-2025 End: 06-09-2025 Patient encounter procedure 06/09/2025 10:00 AM EDT Office Visit [facility] [address] [place] [id number] Ros Ortiz, OD [address] [place] [address] 1 year for Diabetic eye exam Ophthalmology Comment on above: 1 year for Diabetic eye exam Start: 06-02-2025 Glaucoma screening Dilated Retinal Exam [facility] Start: 05-20-2025 Annual PCP Team Chronic Disease Visit Annual PCP Team Chronic Disease Visit [facility] Start: 05-20-2025 BP Controlled (<130/80) BP Controlled (<130/80) [facility] Start: 05-20-2025 RSV Vaccine (1 - Risk 60-74 years 1-dose series) RSV Vaccine (1 - Risk 60-74 years 1-dose series) [facility] Comment on above: Postponed from 2023 (Declined at t his time) Start: 05-20-2025 Shingrix Vaccine (1 of 2) Shingrix Vaccine (1 of 2) [facility] Comment on above: Postponed from 09/04/2013 (Declined at t his time) Start: 05-13-2025 Diabetic foot examination Diabetic Foot Exam [facility] Start: 01-11-2025 End: 01-11-2025 Patient encounter procedure 01/11/2025 11:00 AM EDT Office Visit Neurology [address] [facility] [place] [address] Jovanna Prince MD [address] [facility] [place] [address] 6 month follow up Neurology Comment on above: 6 month follow up Start: 01-07-2025 BP Controlled (<130/80) BP Controlled (<130/80) [facility] Start: 12-23-2024 Tetanus vaccination Tetanus (Td or Tdap) [facility] Start: 12-23-2024 Urine microalbumin profile [facility] Start: 11-18-2024 End: 11-18-2024 Patient encounter procedure 11/18/2024 2:20 PM EDT Office Visit [facility] [address] [place] [address] Santhosh Holden MD [address] [place] [address] 6 mo follow up [facility] [place] Comment on above: 6 mo follow up Start: 11-17-2024 Hemoglobin A1c measurement HbA1C [facility] Start: 11-10-2024 Annual PCP Team Chronic Disease Visit Annual PCP Team Chronic Disease Visit [facility] Start: 11-10-2024 BP Controlled (<130/80) BP Controlled (<130/80) [facility] Start: 11-10-2024 Hepatitis B surface antibody level LDL Cholesterol [facility] Start: 08-29-2024 [facility] Start: 07-23-2024 Annual PCP Team Chronic Disease Visit Annual PCP Team Chronic Disease Visit [facility] Start: 07-02-2024 BP Controlled (<130/80) BP Controlled (<130/80) [facility] Start: 07-01-2024 End: 07-01-2024 Patient encounter procedure 07/01/2024 2:20 PM EDT Office Visit Dermatology [place] [address] [place] [phone] Elizabeth Eisenberg DO [address] [place] [address] Hair loss [L65.9] [facility] [place] Comment on above: Hair loss [L65.9] Start: 07-01-2024 End: 07-01-2024 Patient encounter procedure Podiatry Comment on above: 4 week follow up Start: 06-24-2024 End: 07-03-2025 XR Foot - right AP and Lateral and oblique XR FOOT GENERAL 3V AP/LAT/OBL RIGHT Radiology Routine Closed nondisplaced fracture of phalanx of right great toe, unspecified phalanx, initial encounter Hammertoe of right foot Expected: 06/24/2024, Expires: 07/03/2025 [facility] Work Phone: Comment on above: Expected: 06/24/2024, Expires: Start: 06-22-2024 End: 06-22-2024 Patient encounter procedure 06/22/2024 1:00 PM EDT Office Visit Neurology [address] [facility] [place] [phone] Jovanna Prince MD [address] [facility] [place] [address] six month follow up Neurology Comment on above: six month follow up Start: 06-03-2024 End: 06-12-2025 XR Toes - right 3 Views [facility] Work Phone: Comment on above: Expected: 06/03/2024, Expires: Start: 06-03-2024 End: 06-03-2024 Patient encounter procedure Podiatry Comment on above: 3 week follow up Renal insufficiency Xray Start: 06-02-2024 End: 06-02-2024 Patient encounter procedure 06/02/2024 2:45 PM EDT Office Visit [facility] [address] [place], [place] [id number] Ros Ortiz, OD [address] [place] [address] Return in about 1 year (around 06/01/2024) for diabetic eye exam. Ophthalmology Comment on above: Return in about 1 year (around 06/01/2024 ) for diabetic eye exam. Start: 06-01-2024 BP Controlled (<130/80) BP Controlled (<130/80) [facility] Start: 06-01-2024 Glaucoma screening Dilated Retinal Exam [facility] Start: 05-24-2024 End: 06-09-2025 XR Toes - right 3 Views XR TOE AP/LAT/OBL RIGHT Radiology Routine Closed displaced fracture of phalanx of right great toe, unspecified phalanx, initial encounter Expected: 05/24/2024, Expires: 06/09/2025 [facility] Work Phone: Comment on above: Expected: 05/24/2024, Expires: Start: 05-23-2024 End: 08-22-2024 Basic metabolic 2000 panel - Serum or Plasma BASIC METABOLIC PANEL Lab Routine Renal insufficiency Expected: 05/23/2024, Expires: 08/22/2024 [facility] Comment on above: Expected: 05/23/2024, Expires: Start: 05-23-2024 End: 08-22-2024 CBC W Auto Differential panel - Blood COMPLETE BLOOD COUNT AND DIFFERENTIAL Lab Routine Anemia, unspecified type Expected: 05/23/2024, Expires: 08/22/2024 [facility] Comment on above: Expected: 05/23/2024, Expires: Start: 05-23-2024 End: 08-22-2024 Ferritin [Mass/volume] in Serum or Plasma FERRITIN Lab Routine Anemia, unspecified type Expected: 05/23/2024, Expires: 08/22/2024 [facility] Comment on above: Expected: 05/23/2024, Expires: Start: 05-23-2024 End: 08-22-2024 Urinalysis complete panel - Urine URINALYSIS, WITH MICROSCOPIC Lab Routine Renal insufficiency Expected: 05/23/2024, Expires: 08/22/2024 [facility] Comment on above: Expected: 05/23/2024, Expires: Start: 05-20-2024 End: 08-19-2024 25-hydroxyvitamin D3 [Mass/volume] in Serum or Plasma [facility] Comment on above: Expected: 05/20/2024, Expires: Start: 05-20-2024 End: 08-19-2024 [id number] [Mass/volume] in Serum or Plasma [facility] Comment on above: Expected: 05/20/2024, Expires: Start: 05-20-2024 End: 08-19-2024 CBC W Auto Differential panel - Blood [facility] Work Phone: Comment on above: Expected: 05/20/2024, Expires: Start: 05-20-2024 End: 08-19-2024 Cobalamin (Vitamin B12) [Mass/volume] in Serum or Plasma [facility] Comment on above: Expected: 05/20/2024, Expires: Start: 05-20-2024 End: 08-19-2024 Comprehensive metabolic 2000 panel - Serum or Plasma [facility] Comment on above: Expected: 05/20/2024, Expires: Start: 05-20-2024 End: 08-19-2024 Folate [Mass/volume] in Serum or Plasma [facility] Comment on above: Expected: 05/20/2024, Expires: Start: 05-20-2024 End: 08-19-2024 Hemoglobin A1c in Blood [facility] Comment on above: Expected: 05/20/2024, Expires: Start: 05-20-2024 End: 08-19-2024 Iron and Iron binding capacity panel - Serum or Plasma [facility] Comment on above: Expected: 05/20/2024, Expires: Start: 05-20-2024 End: 05-20-2024 Patient encounter procedure 05/20/2024 2:00 PM EST Office Visit [facility] [address] [place] [address] Santhosh Holden MD [address] [place] [address] 6 month f/u [facility] Comment on above: 6 month f/u Start: 05-20-2024 End: 08-19-2024 Thyrotropin [Units/volume] in Serum or Plasma [facility] Comment on above: Expected: 05/20/2024, Expires: Start: 05-13-2024 [facility] Start: 05-13-2024 End: 05-13-2024 Patient encounter procedure [facility] Comment on above: 6 month f/u follow up 2 weeks Start: 05-05-2024 End: 05-05-2024 Patient encounter procedure 05/05/2024 1:45 PM EST Office Visit Podiatry [address] [place] [address] Dru Sahu [address] [address] has right foot big toe and toe next to it infection, patient is diabetic and nail is trying to come off underneath where cuticle is patient had blood blister that popped and this happened. No ingrown toenails. 2 week follow up Podiatry Comment on above: has right foot big toe and toe next to i t infection, patient is diabetic and nail is trying to come off underneath where cuticle is patient had blood blister that popped and this happened. No ingrown toenails. 2 week follow up Start: 04-29-2024 End: 04-29-2024 Patient encounter procedure 04/29/2024 11:30 AM EST Office Visit Podiatry [address] [place] [address] Dru Sahu [address] [address] has right foot big toe and toe next to it infection, patient is diabetic and nail is trying to come off underneath where cuticle is patient had blood blister that popped and this happened. No ingrown toenails. 2 week follow up Podiatry Comment on above: has right foot big toe and toe next to i t infection, patient is diabetic and nail is trying to come off underneath where cuticle is patient had blood blister that popped and this happened. No ingrown toenails. 2 week follow up Start: 04-19-2024 HPV TESTING HPV TESTING [facility] Start: 04-19-2024 PAP TESTING PAP TESTING [facility] Start: 04-19-2024 Screening for malignant neoplasm of cervix [facility] Start: 04-07-2024 Annual PCP Team Chronic Disease Visit Annual PCP Team Chronic Disease Visit [facility] Start: 04-07-2024 BP Controlled (<130/80) BP Controlled (<130/80) [facility] Start: 04-03-2024 Hepatitis B surface antibody level LDL Cholesterol [facility] Start: 02-07-2024 BP Controlled (<130/80) BP Controlled (<130/80) [facility] Start: 01-08-2024 End: 01-08-2024 Patient encounter procedure 01/08/2024 11:30 AM EDT Office Visit Neurology [address] [facility] [place] [phone] Jovanna Prince MD [address] [facility] [place] [address] six month follow up Migraine without aura, intractable, with status migrainosus Neurology Comment on above: six month follow up Migraine without aur a, intractable, with status migrainosus Start: 12-25-2023 End: 12-25-2023 Patient encounter procedure Audiology Comment on above: Bilateral hearing loss, unspecified hear ing loss type [H91.93] Start: 12-06-2023 Annual PCP Team Chronic Disease Visit Annual PCP Team Chronic Disease Visit [facility] Start: 12-06-2023 Hepatitis B screening Urine Albumin:Creatinine Ratio [facility] Start: 12-06-2023 Shingrix Vaccine (1 of 2) Shingrix Vaccine (1 of 2) [facility] Comment on above: Postponed from 09/04/2013 (Declined at t his time) Start: 11-22-2023 Covid-19 Vaccine ( season) Covid-19 Vaccine ( season) [facility] Start: 11-22-2023 [facility] Start: 11-13-2023 Diabetic foot examination [facility] Start: 11-11-2023 End: 02-10-2024 Lipid 1996 panel - Serum or Plasma [facility] Work Phone: Comment on above: Expected: 11/11/2023, Expires: Start: 11-11-2023 End: 11-11-2023 Patient encounter procedure 11/11/2023 10:00 AM EDT Office Visit [facility] [address] [place] [phone] Saumya Vargas, VIC.[employer] [address] [place] [address] 6 month f/u [facility] Comment on above: 6 month f/u Start: 11-06-2023 End: 11-06-2023 Patient encounter procedure Cardiology Comment on above: 6 month follow up Start: 10-02-2023 [facility]c [facility] Start: 2023 Hepatitis B (HBV) Vaccine (optional start 60+ years) Hepatitis B (HBV) Vaccine (optional start 60+ years) [facility] Start: 2023 RSV Vaccine (1 - 1-dose 60+ series) RSV Vaccine (1 - 1-dose 60+ series) [facility] Start: 2023 RSV Vaccine (1 - Risk 60-74 years 1-dose series) RSV Vaccine (1 - Risk 60-74 years 1-dose series) [facility] Start: 2023 RSV vaccine (optional 60+ years) RSV vaccine (optional 60+ years) [facility] Start: 08-21-2023 End: 08-21-2023 Patient encounter procedure 08/21/2023 10:00 AM EDT Office Visit Neurology [address] [phone] KRZYSZTOF (obstructive sleep apnea) [G47.33] Neurology Comment on above: KRZYSZTOF (obstructive sleep apnea) [G47.33] Start: 06-07-2023 Mammography [facility] Start: 06-07-2023 Screening for malignant neoplasm of breast Mammogram Screening [facility] Start: 06-05-2023 Hemoglobin A1c/Hemoglobin.total in Blood HbA1C [facility] Start: 05-31-2023 Glaucoma screening Dilated Retinal Exam [facility] Start: 05-31-2023 Hepatitis C antibody, confirmatory test DILATED RETINAL EXAM [facility] Start: 05-30-2023 ANNUAL PCP TEAM CHRONIC DISEASE VISIT ANNUAL PCP TEAM CHRONIC DISEASE VISIT [facility] Start: 05-30-2023 Hepatitis B surface antibody level LDL CHOLESTEROL [facility] Start: 04-06-2023 End: 07-06-2023 Hepatic function 2000 panel - Serum or Plasma HEPATIC FUNCTION PNL Lab Routine Coronary-myocardial bridge Mild CAD Primary hypertension Mixed hyperlipidemia Expected: 04/06/2023, Expires: 07/06/2023 [facility] Work Phone: Comment on above: Expected: 04/06/2023, Expires: Start: 04-06-2023 End: 07-06-2023 Lipid 1996 panel - Serum or Plasma LIPID PANEL BASIC Lab Routine Coronary-myocardial bridge Mild CAD Primary hypertension Mixed hyperlipidemia Expected: 04/06/2023, Expires: 07/06/2023 [facility] Work Phone: Comment on above: Expected: 04/06/2023, Expires: 4 Start: 12-05-2022 End: 02-04-2023 VITAMIN B1 (THIAMINE), WHOLE BLOOD [facility] Work Phone: Comment on above: Expected: 12/05/2022, Expires: 3 Start: 12-01-2022 End: 01-31-2023 ALBUMIN/CREAT RATIO RND UR ALBUMIN/CREAT RATIO RND UR Lab Routine Type 2 diabetes mellitus with diabetic neuropathy, without long-term current use of insulin (HCC) Expected: 12/01/2022, Expires: 01/31/2023 [facility] Work Phone: Comment on above: Expected: 12/01/2022, Expires: 3 Start: 12-01-2022 End: 01-31-2023 Hemoglobin A1c in Blood HGB A1C Lab Routine Type 2 diabetes mellitus with diabetic neuropathy, without long-term current use of insulin (HCC) Expected: 12/01/2022, Expires: 01/31/2023 [facility] Work Phone: Comment on above: Expected: 12/01/2022, Expires: 3 Start: 11-21-2022 COVID-19 Vaccine ( season) COVID-19 Vaccine () [facility] Start: 11-21-2022 Covid-19 Vaccine () Covid-19 Vaccine () [facility] Start: 11-21-2022 Hemoglobin A1c/Hemoglobin.total in Blood HBA1C [facility] Start: 11-21-2022 Influenza vaccination [facility] Start: 10-29-2022 X-ray of both feet Foot min 3 Views [facility] Start: 10-29-2022 XR Foot GE 3 Views [facility] Start: 10-11-2022 Hepatitis B screening URINE ALBUMIN:CREATININE RATIO [facility] Start: 10-11-2022 Hepatitis B surface antibody level LDL CHOLESTEROL [facility] Start: 10-07-2022 ANNUAL PCP TEAM CHRONIC DISEASE VISIT ANNUAL PCP TEAM CHRONIC DISEASE VISIT [facility] Start: 10-07-2022 HIV SCREENING HIV SCREENING [facility] Comment on above: Postponed from 09/04/1981 (Declined at t his time) Start: 09-19-2022 Influenza vaccination INFLUENZA (#1) [facility] Comment on above: Postponed from 11/21/2021 (Declined at t his time) Start: 09-06-2022 End: 11-06-2022 Lipid 1996 panel - Serum or Plasma LIPID PANEL BASIC Lab Routine Mixed hyperlipidemia Expected: 09/06/2022, Expires: 11/06/2022 [facility] Work Phone: Comment on above: Expected: 09/06/2022, Expires: 3 Start: 08-09-2022 3 comp foot exam completed DIABETIC FOOT EXAM [facility] Start: 08-05-2022 BP CONTROLLED (<130/80) BP CONTROLLED (<130/80) [facility] Start: 05-29-2022 End: 07-29-2022 Cobalamin (Vitamin B12) [Mass/volume] in Serum or Plasma [facility] Work Phone: Comment on above: Expected: 05/29/2022, Expires: 3 Start: 05-29-2022 End: 07-29-2022 Folate [Mass/volume] in Serum or Plasma [facility] Work Phone: Comment on above: Expected: 05/29/2022, Expires: 3 Start: 05-29-2022 End: 07-29-2022 Iron and Iron binding capacity panel - Serum or Plasma [facility] Work Phone: Comment on above: Expected: 05/29/2022, Expires: 3 Start: 05-29-2022 End: 07-29-2022 LIPID PANEL, NONFASTING [facility] Work Phone: Comment on above: Expected: 05/29/2022, Expires: 3 Start: 05-29-2022 End: 07-29-2022 Thyrotropin [Units/volume] in Serum or Plasma [facility] Work Phone: Comment on above: Expected: 05/29/2022, Expires: 3 Start: 05-29-2022 End: 07-29-2022 VITAMIN B1 (THIAMINE), WHOLE BLOOD [facility] Work Phone: Comment on above: Expected: 05/29/2022, Expires: 3 Start: 04-28-2022 End: 06-28-2022 CBC W Auto Differential panel - Blood CBC + DIFF Lab Routine Type 2 diabetes mellitus with diabetic neuropathy, without long-term current use of insulin (HCC) Expected: 04/28/2022, Expires: 06/28/2022 [facility] Work Phone: Comment on above: Expected: 04/28/2022, Expires: 3 Start: 04-28-2022 End: 06-28-2022 Comprehensive metabolic 2000 panel - Serum or Plasma COMP METABOLIC PANEL Lab Routine Type 2 diabetes mellitus with diabetic neuropathy, without long-term current use of insulin (HCC) Expected: 04/28/2022, Expires: 06/28/2022 [facility] Work Phone: Comment on above: Expected: 04/28/2022, Expires: 3 Start: 04-28-2022 End: 06-28-2022 Hemoglobin A1c in Blood HGB A1C Lab Routine Type 2 diabetes mellitus with diabetic neuropathy, without long-term current use of insulin (HCC) Expected: 04/28/2022, Expires: 06/28/2022 [facility] Work Phone: Comment on above: Expected: 04/28/2022, Expires: 3 Start: 04-19-2022 Screening for malignant neoplasm of cervix Pap Smear [facility] Start: 04-13-2022 Hemoglobin A1c/Hemoglobin.total in Blood HBA1C [facility] Start: 02-04-2022 End: 04-06-2022 Alanine aminotransferase [Enzymatic activity/volume] in Serum or Plasma ALT/SGPT Lab Routine Type 2 diabetes mellitus with diabetic neuropathy, without long-term current use of insulin (HCC) Expected: 02/04/2022, Expires: 04/06/2022 [facility] Work Phone: Comment on above: Expected: 02/04/2022, Expires: 3 Start: 02-04-2022 End: 04-06-2022 CBC W Auto Differential panel - Blood CBC + DIFF Lab Routine Type 2 diabetes mellitus with diabetic neuropathy, without long-term current use of insulin (HCC) Expected: 02/04/2022, Expires: 04/06/2022 [facility] Work Phone: Comment on above: Expected: 02/04/2022, Expires: 3 Start: 02-04-2022 End: 04-06-2022 Comprehensive metabolic 2000 panel - Serum or Plasma COMP METABOLIC PANEL Lab Routine Type 2 diabetes mellitus with diabetic neuropathy, without long-term current use of insulin (HCC) Expected: 02/04/2022, Expires: 04/06/2022 [facility] Work Phone: Comment on above: Expected: 02/04/2022, Expires: 3 Start: 02-04-2022 End: 04-06-2022 Hemoglobin A1c in Blood HGB A1C Lab Routine Type 2 diabetes mellitus with diabetic neuropathy, without long-term current use of insulin (HCC) Expected: 02/04/2022, Expires: 04/06/2022 [facility] Work Phone: Comment on above: Expected: 02/04/2022, Expires: 3 Start: 02-04-2022 End: 04-06-2022 Lipid 1996 panel - Serum or Plasma LIPID PANEL BASIC Lab Routine Type 2 diabetes mellitus with diabetic neuropathy, without long-term current use of insulin (HCC) Expected: 02/04/2022, Expires: 04/06/2022 [facility] Work Phone: Comment on above: Expected: 02/04/2022, Expires: 3 Start: 02-04-2022 End: 04-06-2022 Thyrotropin [Units/volume] in Serum or Plasma TSH BLD Lab Routine Hypothyroidism, unspecified type Expected: 02/04/2022, Expires: 04/06/2022 [facility] Work Phone: Comment on above: Expected: 02/04/2022, Expires: 3 Start: 02-04-2022 End: 04-06-2022 Thyroxine (T4) free [Mass/volume] in Serum or Plasma T4 FREE/FREE THYROX Lab Routine Hypothyroidism, unspecified type Expected: 02/04/2022, Expires: 04/06/2022 [facility] Work Phone: Comment on above: Expected: 02/04/2022, Expires: 3 Start: 02-04-2022 End: 04-06-2022 Triiodothyronine (T3) [Mass/volume] in Serum or Plasma T3 BLD Lab Routine Hypothyroidism, unspecified type Expected: 02/04/2022, Expires: 04/06/2022 [facility] Work Phone: Comment on above: Expected: 02/04/2022, Expires: 3 Start: 02-04-2022 End: 04-06-2022 Triiodothyronine (T3) Free [Mass/volume] in Serum or Plasma T3 FREE BLD Lab Routine Hypothyroidism, unspecified type Expected: 02/04/2022, Expires: 04/06/2022 [facility] Work Phone: Comment on above: Expected: 02/04/2022, Expires: 3 Start: 12-21-2021 Influenza vaccination Influenza Vaccine (#1) [facility] Start: 12-04-2021 Hepatitis B surface antibody level LDL CHOLESTEROL [facility] Start: 11-29-2021 COVID-19 VACCINE (5 - Booster for Pfizer series) COVID-19 VACCINE (5 - Booster for Pfizer series) [facility] Start: 11-21-2021 Influenza vaccination [facility] Start: 10-21-2021 End: 04-23-2022 Alanine aminotransferase [Enzymatic activity/volume] in Serum or Plasma ALT/SGPT Lab Routine Other hyperlipidemia Expected: 10/21/2021, Expires: 04/23/2022 [facility] Work Phone: Comment on above: Expected: 10/21/2021, Expires: 3 Start: 10-21-2021 End: 04-23-2022 Lipid 1996 panel - Serum or Plasma LIPID PANEL BASIC Lab Routine Other hyperlipidemia Expected: 10/21/2021, Expires: 04/23/2022 [facility] Work Phone: Comment on above: Expected: 10/21/2021, Expires: 3 Start: 10-21-2021 End: 04-23-2022 Thyrotropin [Units/volume] in Serum or Plasma TSH BLD Lab Routine Hypothyroidism, unspecified type Expected: 10/21/2021, Expires: 04/23/2022 [facility] Work Phone: Comment on above: Expected: 10/21/2021, Expires: 3 Start: 10-21-2021 End: 04-23-2022 Thyroxine (T4) free [Mass/volume] in Serum or Plasma T4 FREE/FREE THYROX Lab Routine Hypothyroidism, unspecified type Expected: 10/21/2021, Expires: 04/23/2022 [facility] Work Phone: Comment on above: Expected: 10/21/2021, Expires: 3 Start: 10-21-2021 End: 04-23-2022 Triiodothyronine (T3) [Mass/volume] in Serum or Plasma T3 BLD Lab Routine Hypothyroidism, unspecified type Expected: 10/21/2021, Expires: 04/23/2022 [facility] Work Phone: Comment on above: Expected: 10/21/2021, Expires: 3 Start: 10-07-2021 End: 12-07-2021 ALBUMIN/CREAT RATIO RND UR ALBUMIN/CREAT RATIO RND UR Lab Routine Type 2 diabetes mellitus without complication, unspecified whether extermination inspector insulin use (HCC) Expected: 10/07/2021, Expires: 12/07/2021 [facility] Work Phone: Comment on above: Expected: 10/07/2021, Expires: 2 Start: 10-07-2021 End: 12-07-2021 CBC W Auto Differential panel - Blood CBC + DIFF Lab Routine Iron deficiency anemia, unspecified iron deficiency anemia type Expected: 10/07/2021, Expires: 12/07/2021 [facility] Work Phone: Comment on above: Expected: 10/07/2021, Expires: 2 Start: 10-07-2021 End: 12-07-2021 Comprehensive metabolic 2000 panel - Serum or Plasma COMP METABOLIC PANEL Lab Routine Essential hypertension Other hyperlipidemia Type 2 diabetes mellitus without complication, unspecified whether extermination inspector insulin use (HCC) Expected: 10/07/2021, Expires: 12/07/2021 [facility] Work Phone: Comment on above: Expected: 10/07/2021, Expires: 2 Start: 10-07-2021 End: 12-07-2021 Ferritin [Mass/volume] in Serum or Plasma FERRITIN BLD Lab Routine Iron deficiency anemia, unspecified iron deficiency anemia type Expected: 10/07/2021, Expires: 12/07/2021 [facility] Work Phone: Comment on above: Expected: 10/07/2021, Expires: 2 Start: 10-07-2021 End: 12-07-2021 Hemoglobin A1c in Blood HGB A1C Lab Routine Type 2 diabetes mellitus without complication, unspecified whether extermination inspector insulin use (HCC) Expected: 10/07/2021, Expires: 12/07/2021 [facility] Work Phone: Comment on above: Expected: 10/07/2021, Expires: 2 Start: 10-07-2021 End: 12-07-2021 Iron and Iron binding capacity panel - Serum or Plasma IRON + TIBC Lab Routine Iron deficiency anemia, unspecified iron deficiency anemia type Expected: 10/07/2021, Expires: 12/07/2021 [facility] Work Phone: Comment on above: Expected: 10/07/2021, Expires: 2 Start: 10-07-2021 End: 12-07-2021 LIPID PANEL, NONFASTING LIPID PANEL, NONFASTING Lab Routine Other hyperlipidemia Expected: 10/07/2021, Expires: 12/07/2021 [facility] Work Phone: Comment on above: Expected: 10/07/2021, Expires: 2 Start: 10-07-2021 End: 12-07-2021 Magnesium [Mass/volume] in Serum or Plasma MAGNESIUM BLD Lab Routine Primary hypertension Essential hypertension Expected: 10/07/2021, Expires: 12/07/2021 [facility] Work Phone: Comment on above: Expected: 10/07/2021, Expires: 2 Start: 10-07-2021 End: 12-07-2021 Thyrotropin [Units/volume] in Serum or Plasma TSH BLD Lab Routine Hypothyroidism, unspecified type Expected: 10/07/2021, Expires: 12/07/2021 [facility] Work Phone: Comment on above: Expected: 10/07/2021, Expires: 2 Start: 10-07-2021 End: 12-07-2021 Thyroxine (T4) free [Mass/volume] in Serum or Plasma T4 FREE/FREE THYROX Lab Routine Hypothyroidism, unspecified type Expected: 10/07/2021, Expires: 12/07/2021 [facility] Work Phone: Comment on above: Expected: 10/07/2021, Expires: 2 Start: 10-07-2021 End: 12-07-2021 Triiodothyronine (T3) [Mass/volume] in Serum or Plasma T3 BLD Lab Routine Hypothyroidism, unspecified type Expected: 10/07/2021, Expires: 12/07/2021 [facility] Work Phone: Comment on above: Expected: 10/07/2021, Expires: 2 Start: 10-03-2021 End: 10-03-2022 CBC W Auto Differential panel - Blood CBC + DIFF Lab Routine Primary hypertension Expected: 10/03/2021, Expires: 10/03/2022 [facility] Work Phone: Comment on above: Expected: 10/03/2021, Expires: 3 Start: 10-03-2021 End: 10-03-2022 Comprehensive metabolic 2000 panel - Serum or Plasma COMP METABOLIC PANEL Lab Routine Primary hypertension Expected: 10/03/2021, Expires: 10/03/2022 [facility] Work Phone: Comment on above: Expected: 10/03/2021, Expires: 3 Start: 10-03-2021 End: 10-03-2022 Lipid 1996 panel - Serum or Plasma LIPID PANEL BASIC Lab Routine Primary hypertension Expected: 10/03/2021, Expires: 10/03/2022 [facility] Work Phone: Comment on above: Expected: 10/03/2021, Expires: 3 Start: 10-03-2021 End: 12-03-2021 Thyrotropin [Units/volume] in Serum or Plasma TSH BLD Lab Routine Hypothyroidism, unspecified type Expected: 10/03/2021, Expires: 12/03/2021 [facility] Work Phone: Comment on above: Expected: 10/03/2021, Expires: 2 Start: 08-05-2021 End: 08-19-2021 SARS-CoV-2 (COVID-19) RNA [Presence] in Respiratory specimen by JAMSHID with probe detection [facility] Work Phone: Comment on above: Expected: 08/05/2021, Expires: 2 Start: 06-03-2021 Hemoglobin A1c/Hemoglobin.total in Blood HBA1C [facility] Start: 05-30-2021 ANNUAL PCP TEAM CHRONIC DISEASE VISIT ANNUAL PCP TEAM CHRONIC DISEASE VISIT [facility] Start: 05-15-2021 COVID-19 VACCINE (4 - Booster for Pfizer series) COVID-19 VACCINE (4 - Booster for Pfizer series) [facility] Start: 04-10-2021 Mammography MAMMOGRAM [facility] Start: 03-09-2021 COVID-19 VACCINE (4 - Booster for Pfizer series) COVID-19 VACCINE (4 - Booster for Pfizer series) [facility] Start: 11-24-2020 3 comp foot exam completed [facility] Start: 10-23-2020 Hepatitis C antibody, confirmatory test DILATED RETINAL EXAM [facility] Start: 08-30-2020 Hepatitis B screening URINE ALBUMIN:CREATININE RATIO [facility] Start: 03-14-2020 Basic metabolic 2000 panel - Serum or Plasma Basic Metabolic Panel [facility] Start: 03-14-2020 Creatinine measurement Basic Metabolic Panel [facility] Start: 01-11-2020 Colonoscopy COLONOSCOPY [facility] Start: 01-11-2020 COLORECTAL CANCER SCREENING COLORECTAL CANCER SCREENING [facility] Start: 08-22-2019 Annual wellness visit Annual Wellness Visit ([id number]) [facility] Start: 09-04-2013 Measurement of occult blood in single stool specimen FIT [facility] Start: 09-04-2013 Screening for malignant neoplasm of breast Mammography [facility] Start: 09-04-2013 Screening for malignant neoplasm of colon CRC Screening [facility] Start: 09-04-2013 Shingles (RZV) Vaccine (1 of 2) Shingles (RZV) Vaccine (1 of 2) [facility] Start: 09-04-2013 SHINGRIX VACCINE (1 of 2) SHINGRIX VACCINE (1 of 2) [facility] Start: 09-04-2008 Cholesterol [Mass/volume] in Serum or Plasma Cholesterol [facility] Start: 09-04-2008 COLOGUARD (FIT-DNA) COLOGUARD (FIT-DNA) [facility] Start: 09-04-[address] COLONOGRAPHY [facility] Start: 09-04-2008 FECAL OCCULT BLOOD FECAL OCCULT BLOOD [facility] Start: 09-04-2008 Screening for malignant neoplasm of colon [facility] Start: 09-04-2008 SIGMOIDOSCOPY SIGMOIDOSCOPY [facility] Start: 2003 Screening for malignant neoplasm of breast Mammography [facility] Start: 09-04-1982 Hepatitis A (HAV) Vaccine (optional start 19+ years) Hepatitis A (HAV) Vaccine (optional start 19+ years) [facility] Start: 09-04-1982 HEPATITIS B (1 of 3 - Risk 3-dose series) HEPATITIS B (1 of 3 - Risk 3-dose series) [facility] Start: 09-04-1982 SHINGRIX VACCINE (1 of 2) SHINGRIX VACCINE (1 of 2) [facility] Start: 09-04-1981 BP CONTROLLED (<130/80) BP CONTROLLED (<130/80) [facility] Start: 09-04-1981 Hepatitis C screening Hepatitis C Antibody [facility] Start: 09-04-1981 HIV SCREENING HIV SCREENING [facility] Start: 09-04-1978 HIV screening HIV Test [facility] Start: 09-04-1969 PNEUMOCOCCAL (1 - PCV) PNEUMOCOCCAL (1 - PCV) [facility] Start: 1965 HEPATITIS B (1 of 3 - 3-dose series) HEPATITIS B (1 of 3 - 3-dose series) [facility] Start: 1965 Hepatitis B vaccination Hepatitis B (HBV) Vaccine (1 of 3 - 3-dose series) [facility] Start: 1965 Screening for malignant neoplasm of colon Colonoscopy [facility] Start: 1965 Thyroid stimulating hormone measurement TSH [facility] Bacteria identified in Wound by Culture BACTERIAL CULTURE AND GRAM STAIN, ABSCESS AND WOUND (AEROBIC CULTURE) Microbiology Routine Cellulitis and abscess of toe of right foot 03/29/2024 12:18 PM RF Arrays [facility] Work Phone: Bacteria identified in Wound by Culture BACTERIAL CULTURE AND GRAM STAIN, ABSCESS AND WOUND (AEROBIC CULTURE) Microbiology Routine Cellulitis and abscess of toe of right foot 05/05/2024 2:13 PM EST [facility] Work Phone: End: 04-15-2025 DBT Breast - bilateral screening JESUS SCREENING W TIFFANY Radiology Routine Encounter for screening mammogram for breast cancer 1 Occurrences starting 03/16/2024 until 04/15/2025 [facility] Work Phone: Comment on above: 1 Occurrences starting 03/16/2024 until 04/15/2025 End: 05-08-2024 Echocardiography ECHO Cardiology Routine Mild CAD SOB (shortness of breath) 1 Occurrences starting 05/08/2023 until 05/08/2024 [facility] Work Phone: Comment on above: 1 Occurrences starting 05/08/2023 until 05/08/2024 Electrocardiogram EKG BIC Routin e 02/07/2023 1:11 AM EST [facility] End: 09-23-2024 HEARING TEST/AUDIOGRAM HEARING TEST/AUDIOGRAM Audiology Routine Other specified hearing loss, unspecified ear 1 Occurrences starting 09/23/2023 until 09/23/2024 [facility] Work Phone: Comment on above: 1 Occurrences starting 09/23/2023 until 09/23/2024 Hemoglobin.gastroint estina l.lower [Presence] in Stool by Immunoassay IMMUNOCHEMICAL FECAL OCCULT BLOOD TEST Lab Routine Anemia, unspecified type Ordered: 05/23/2024 [facility] Work Phone: Comment on above: Ordered: 05/23/2024 End: 07-23-2024 HOME SLEEP APNEA TEST (HSAT) HOME SLEEP APNEA TEST (HSAT) Procedures Routine [id number] (obstructive sleep apnea) 1 Occurrences starting 07/24/2023 until 07/23/2024 [facility] Work Phone: Comment on above: 1 Occurrences starting 07/24/2023 until 07/23/2024 End: 06-19-2025 Liver stiffness by US.transient elastography US ELASTOGRAPHY LIVER Radiology Routine Liver fibrosis 1 Occurrences starting 05/20/2024 until 06/19/2025 [facility] Comment on above: 1 Occurrences starting 05/20/2024 until 06/19/2025 End: 06-28-2023 JESUS SCREENING JESUS SCREENING Radiology Routine Screening breast examination 1 Occurrences starting 05/29/2022 until 06/28/2023 [facility] Work Phone: Comment on above: 1 Occurrences starting 05/29/2022 until 06/28/2023 Patient Education [facility] Work Phone: Patient referral [facility] Work Phone: End: 08-09-2022 PVR ANK PRESS SHY [facility] LAB PVR ANK PRESS [facility] Vascular Lab Routine Ulcer of toe of left foot, limited to breakdown of skin (HCC) Diminished pulses in lower extremity 1 Occurrences starting 08/09/2021 until 08/09/2022 [facility] Work Phone: Comment on above: 1 Occurrences starting 08/09/2021 until 08/09/2022 End: 06-19-2025 US Abdomen RUQ US ABD RIGHT UPPER QUADRANT Radiology Routine Liver fibrosis 1 Occurrences starting 05/20/2024 until 06/19/2025 [facility] Comment on above: 1 Occurrences starting 05/20/2024 until 06/19/2025 End: 06-22-2025 US Kidney - bilateral and Urinary bladder US KIDNEY/BLADDER Radiology Routine Renal insufficiency 1 Occurrences starting 05/23/2024 until 06/22/2025 [facility] Comment on above: 1 Occurrences starting 05/23/2024 until 06/22/2025 US Kidney - bilatera l and Urinary bladder US KIDNEY/BLADDER Radiology Routine Renal insufficiency 06/03/2024 2:12 PM EDT [facility] Work Phone: End: 06-28-2023 XR DIGIT GENERAL 3V FRONTAL/LAT/OBL RIGHT XR DIGIT GENERAL 3V FRONTAL/LAT/OBL RIGHT Radiology Routine Finger pain, right 1 Occurrences starting 05/29/2022 until 06/28/2023 [facility] Work Phone: Comment on above: 1 Occurrences starting 05/29/2022 until 06/28/2023 XR DIGIT GENERAL 3V FRONTAL/LAT/OBL RIGHT XR DIGIT GENERAL 3V FRONTAL/LAT/OBL RIGHT Radiology Routine Finger pain, right 05/29/2022 11:53 AM EST [facility] Work Phone: End: 12-18-2021 XR FOOT GENERAL 3V AP/LAT/OBL LEFT [facility] Work Phone: Comment on above: 1 Occurrences starting 12/18/2021 until 12/18/2021 End: 10-25-2023 XR FOOT GENERAL 3V AP/LAT/OBL RIGHT XR FOOT GENERAL 3V AP/LAT/OBL RIGHT Radiology Routine Pain 1 Occurrences starting 09/25/2022 until 10/25/2023 [facility] Work Phone: Comment on above: 1 Occurrences starting 09/25/2022 until 10/25/2023 End: 11-14-2023 XR FOOT GENERAL 3V AP/LAT/OBL RIGHT XR FOOT GENERAL 3V AP/LAT/OBL RIGHT Radiology Routine Hammertoe of right foot Closed displaced fracture of phalanx of lesser toe of right foot, unspecified phalanx, initial encounter 1 Occurrences starting 10/15/2022 until 11/14/2023 [facility] Work Phone: Comment on above: 1 Occurrences starting 10/15/2022 until 11/14/2023 XR Toes - right 3 Views XR TOE A P/LAT/OBL RIGHT Radiology Routine Closed displaced fracture of phalanx of right great toe, unspecified phalanx, initial encounter 05/13/2024 1:22 PM EST [facility] Work Phone: [facility] Immunizations Immunization Date Immunization Notes Care Provider [facility] 08-29-2024 tetanus toxoid, reduced diphtheria toxoid, and acellular pertussis vaccine, adsorbed Dr. Santhosh Holden MD Work Phone: [facility] 05-20-2024 COVID-19 vaccine, ag e 12+ yr ([address] [employer]) Santhosh Holden MD Work Phone: [facility] 05-20-2024 influenza, seasonal, injectable Santhosh Holden MD Work Phone: [facility] 04-07-2023 COVID-19 vaccine, ag e 12+ yr, season (PFIZER-BIONTECH) Santhosh Holden MD Work Phone: [facility] 12-05-2022 influenza, injectabl e, quadrivalent, contains preservative Santhosh Holden MD Work Phone: [facility] 12-05-2022 influenza virus vaccine, unspecified formulation Dru Collado MD Work Phone: [facility] 05-29-2022 COVID-19 booster vaccine, age 12+ yr, bivalent (PFIZER-BIONTECH) Santhosh Holden MD Work Phone: [facility] 05-29-2022 pneumococcal (PCV20) vaccine, 20 valent (PREVNAR 20) Santhosh Holden MD Work Phone: [facility] 05-29-2022 pneumococcal Conjugate, unspecified formulation Santhosh Holden MD Work Phone: [facility] Work Phone: 07-02-2020 Pfizer SARS-COV-2 (COVID-19) vaccine, age 12+ yrs, mRNA, spike protein, LNP, preservative free, 30 mcg/0.3mL dose (ZUK=212) [employer] Work Phone: [facility] 06-11-2020 Pfizer SARS-COV-2 (COVID-19) vaccine, age 12+ yrs, mRNA, spike protein, LNP, preservative free, 30 mcg/0.3mL dose (NEM=082) [employer] Work Phone: [facility] 02-24-2020 influenza, injectabl e, quadrivalent, contains preservative Santhosh Holden MD Work Phone: [facility] 02-24-2020 influenza virus vaccine, unspecified formulation [employer] Work Phone: [facility] 11-23-2018 influenza virus vaccine, unspecified formulation Santhosh Holden MD Work Phone: [facility] 12-23-2017 influenza, injectabl e, quadrivalent, contains preservative Santhosh Holden MD Work Phone: [facility] 01-01-2017 influenza, injectabl e, quadrivalent, preservative free Dr. Santhosh Holden MD Work Phone: [facility] 01-01-2017 influenza, seasonal, injectable [facility] 01-01-2017 influenza, seasonal, injectable, preservative free Santhosh Holden MD Work Phone: [facility] 04-01-2016 influenza, injectabl e, quadrivalent, preservative free Santhosh Holden MD Work Phone: [facility] 12-23-2014 tetanus and diphther ia toxoids, adsorbed, preservative free, for adult use (2 Lf of tetanus toxoid and 2 Lf of diphtheria toxoid) [facility] 12-23-2014 tetanus toxoid, reduced diphtheria toxoid, and acellular pertussis vaccine, adsorbed Santhosh Holden MD Work Phone: [facility] Payers Date Payer Category Payer Self-pay [id number] 2017 Medicaid [id number] 2017 Medicare [id number] 2017 Medicare [id number] 2017 Medicare (Managed Care) [employer] [employer] [id number] 2017 Unknown [id number] 2014 Medicaid [id number] 1965 Unknown [id number] 1965 Unknown [id number] Medicare MEDICARE PART A B [id number] Private Health Insurance [facility] 18 [id number] Unknown [facility] [id number] Unknown [id number] Unknown [id number] Social History Date Type Detail Facility Start: 10-23-2014 End: 08-29-2024 Tobacco smoking status NHIS Ex-smoker [facility] Start: 03-23-1978 End: 06-20-1990 History of tobacco use Current smoker [facility] Start: 03-23-1978 End: 06-20-1990 History of tobacco use Cigarette Smoker [facility] Start: 10-23-2014 End: 08-06-2022 Cigarettes smoked current (pack per day) - Reported 1.5 [facility] Start: 10-23-2014 End: 11-11-2023 Tobacco use and exposure Smokeless tobacco non-user [facility] Start: 04-14-2021 End: 06-03-2024 Alcohol intake Current non-drinker of alcohol (finding) [facility] Start: 11-25-2019 History SDOH Alcohol Frequency 1 [facility] Start: 11-25-2019 History SDOH Alcohol Std Drinks 98 [facility] Start: 11-25-2019 History SDOH Transport Med 2 [facility] Start: 11-25-2019 Education 14 [facility] Start: 1965 Sex Assigned At Female [facility] Start: 01-25-2020 End: 02-24-2022 Exposure to SARS-CoV-2 (event) Not sure [facility] Work Phone: Start: 1965 Sex Assigned At Not on file [facility] Start: 11-25-2019 End: 08-06-2022 Gender identity Not on file [facility] Adult Depression Screening Assessment 1 [facility] Start: 11-22-2019 Gender identity Identifies as female gender (finding) [facility] Start: 11-22-2019 Sexual orientation Heterosexual (finding) [facility] How often to you hav e a drink containing alcohol? Never [facility] In the past 12 month s, was there a time when you were not able to pay the mortgage or rent on time? Yes [facility] At any time in the p ast 12 months, were you homeless or living in fdc [including now]? No [facility] Start: 10-29-2022 Tobacco smoking status NHIS Unknown if ever smoked [facility] Medical Equipment Procedure Code Equipment Code Equipment Origin al Text Equipment Identifier Dates [id number] Start: 09-27-2018 [id number], [id number], [id number], [id number], [id number], [id number], [id number], [id number], [id number] Start: 09-27-2018 End: 05-17-2024 Comment on above: Test blood sugar(s) once times daily. Dx: E11.40 Test blood sugar(s) one time daily. Dx: Other DM Code E11.40 Insulin: No Test blood sugar(s) one time daily. Dx: Other DM Code E11.40 Insulin: No [id number] Start: 09-27-2018 Functional Status Date Assessment Result Facility 05-17-2020 Are you deaf, or do you have serious difficulty hearing No 05/17/2020 5:08 PM Rahel Hemphill RN [facility] 05-17-2020 Are you blind, or do you have serious difficulty seeing, even when wearing glasses No 05/17/2020 5:08 PM Rahel Hemphill RN [facility] 05-17-2020 Do you have serious difficulty walking or climbing stairs No 05/17/2020 5:08 PM Rahel Hemphill RN No [facility] 05-17-2020 Do you have difficul ty dressing or bathing No 05/17/2020 5:08 PM Rahel eHmphill RN No [facility] 05-17-2020 Because of a physica l, mental, or emotional condition, do you have difficulty doing errands alone such as visiting a physician's office or shopping No 05/17/2020 5:08 PM Rahel Hemphill RN No [facility] Mental Status Date Assessment Result Facility 05-17-2020 Because of a physica l, mental, or emotional condition, do you have serious difficulty concentrating, remembering, or making decisions No 05/17/2020 5:08 PM Rahel Hemphill RN No [facility] Clinical Notes 02-10-2018 to 08-29-2024 Telephone Encounter - Pina Springre LPN - 07/27/2024 2:45 PM EDTTelephone Encounter - Pina Springer LPN - 07/27/2024 2:45 PM EDTTelephone Encounter - Mayco Valladares TRANSPORTATION TECHNICIAN - 07/22/2024 10:24 AM EDT Note Date & Type Note Facility 08-29-2024 Discharge summary [facility] 08-29-2024 Radiology Diagnostic study note [facility] Imaging Services [address] [place] [address] [id number] Brain/Head without Contrast MR#: [id number] Acct: [id number] Name: INÉS SHANKS Rep #: [id number] : 1965 F 58 From: Pet er Peer DO PCP: Dr. Santhosh Holden MD Status: PRE E R Study:Brain/Head without Contrast Date of Exa m: 08/29/24 Exam# [id number] Ordering Dr: Sachin Marie DO PROCEDURE: BRAIN/HEAD WITHOUT CONTRAST 08/29/2024 REASON FOR EXAM: TRAUMA TECHNIQUE: Head CT without intravenous contrast. Coronal and Sagittal reconstruction serieswere provided. One or more dose reduction techniques were used (e.g., Automated exposure control, adjustment of the mA and/or kV according to patient size, use of iterative reconstruction technique. RADIATION DOSE SUMMARY: CTDlvol: 44.99, 24.84 and 29.38 mGy DLP: 1935.73 mGycm COMPARISON: CT sinus study same day FINDINGS: Brain: No intra-axial or extra-axial hemorrhage no mass, mass effect or midline shift periventricular and deep white matter hypodensities indicating small-vessel ischemic disease CSF Spaces: PE Sinuses/Mastoids: Predominantly clear. Bones: No fracture. No acute process. CT/Brain/Head without Contrast IMPRESSION: No acute process. Age-related involution and chronic small-vessel ischemic changes . Reading Location: [facility] CC: Dr. Sachin Walton DO; Dr. Santhosh Holden MD ~ Purchasing Director: Signed [facility] 08-29-2024 Radiology Diagnostic study note [facility] Imaging Services [address] [place] [address] [id number] Sinus/Facial Bone MR#: [id number] Acct: [id number] Name: INÉS SHANKS Rep #: [id number] : 1965 F 58 From: Flash Hwang MD PCP: Dr. Santhosh Holden MD Status: PRE E R Study:Sinus/Facial Bone Date of Exam: Exam# [id number] Ordering Dr: Sachin Marie DO PROCEDURE: SINUS/FACIAL BONE REASON FOR EXAM: TRAUMA TECHNIQUE: CT of the paranasal sinuses without contrast. Coronal and Sagittal reconstruction series were provided. One or more dose reduction techniques were used (e.g., Automated exposure control, adjustment of the mA and/or kV according to patient size, use of iterative reconstruction technique). Dose report: CTDI L volume 29.38 mGy. DLP: 606.22 COMPARISON: None FINDINGS: Frontal: Unremarkable Ethmoid: Unremarkable Sphenoid: Unremarkable Maxillary: Unremarkable Turbinates: Hypertrophy of the inferior turbinates bilaterally. Nasal Septum: Midline. Mastoids/Middle Ears: Unremarkable. CT/Sinus/Facial Bone IMPRESSION: No acute abnormality is seen. Reading Location: [facility] CC: Dr. Sachin Walton DO; Dr. Santhosh Holden MD ~ Purchasing Director: Signed [facility] 08-29-2024 Radiology Diagnostic study note [facility] Imaging Services [address] [place] [address] Spine Cervical without Contras MR#: [id number] Acct: [id number] Name: INÉS SHANKS Rep #: [id number] : 1965 F 58 From: Flash Hwang MD PCP: Dr. Santhosh Holden MD Status: PRE E R Study:Spine Cervical without Contras Date of Exam: 08/29/24 Exam# [id number] Ordering Dr: Sachin Marie DO PROCEDURE: SPINE CERVICAL WITHOUT CONTRAS 08/29/2024 REASON FOR EXAM: TRAUMA TECHNIQUE: Cervical spine CT without contrast. Coronal and Sagittal reconstruction series were provided. One or more dose reduction techniques were used (e.g., Automated exposure control, adjustment of the mA and/or kV according to patient size, use of iterative reconstruction technique RADIATION DOSE SUMMARY: CTDlvol: 24.84 mGy DLP: 516.53 mGycm COMPARISON: None FINDINGS: Alignment: Straightening of the normal cervical lordosis. Vertebrae: Anterior spondylosis at the C4-C5 level. Soft Tissues: No prevertebral soft tissue swelling. Other: Scarring at the right lung apex. C1-2: Unremarkable. C2-3: Disc space is well-maintained. Facet joint osteoarthritis more pronouncedon the right side. No significant stenosis seen. C3-4: Disc space is well-maintained. Facet joint osteoarthritis and hypertrophyon the right side. No significant stenosis seen. C4-5: Mild degree of disc space narrowing. Anterior spondylosis. No evidence of spinal or neural foraminal stenosis. C5-6: Mild degree of disc space narrowing. No evidence of spinal stenosis. No evidence of neural foraminal stenosis. C6-7: Disc space is well-maintained. No acute abnormality is seen. C7-T1: Unremarkable. CT/Spine Cervical without Contras IMPRESSION: DEGENERATIVE CHANGES OF THE CERVICAL SPINE. NO EVIDENCE OF SIGNIFICANT OSSEOUS CENTRAL CANAL OR NEURAL FORAMINAL STENOSIS. Reading Location: [place] [address] CC: Dr. Sachin Walton DO; Dr. Santhosh Holden MD ~ Purchasing Director: Signed [facility] 07-27-2024 Telephone encounter Note Prescription Refill Information The patient has been identified by name and date of : Yes Caregiver verified no other encounters exist for this prescription request: Yes Caregiver confirmed with patient/requestor that no other refills are due, in the near future, with this provider at this time: Yes The last office visit in the department: 05/20/24 Does the patient have a future office visit with this provider/department: Yes Requested Prescriptions Pending Prescriptions Disp Refills lisinopril (ZESTRIL) 5 mg tablet 90 tablet 3 Sig: Take 1 tablet by mouth once daily. Pina Springer LPN July 27, 2024 2:45 PM [facility] 07-27-2024 Miscellaneous Notes Prescription Refill Information The patient has been identified by name and date of : Yes Caregiver verified no other encounters exist for this prescription request: Yes Caregiver confirmed with patient/requestor that no other refills are due, in the near future, with this provider at this time: Yes The last office visit in the department: 05/20/24 Does the patient have a future office visit with this provider/department: Yes Requested Prescriptions Pending Prescriptions Disp Refills lisinopril (ZESTRIL) 5 mg tablet 90 tablet 3 Sig: Take 1 tablet by mouth once daily. Pina Springer LPN July 27, 2024 2:45 PM documented in this encounter [facility] 07-22-2024 Telephone encounter Note Prescription Refill Information The patient has been identified by name and date of : Yes Caregiver verified no other encounters exist for this prescription request: Yes Caregiver confirmed with patient/requestor that no other refills are due, in the near future, with this provider at this time: Yes The last office visit in the department: 05/20/24 Does the patient have a future office visit with this provider/department: Yes, 11/18/24 Requested Prescriptions Pending Prescriptions Disp Refills Cetirizine (ZYRTEC) 10 mg cap 90 capsule 3 Sig: Take 1 capsule by mouth once daily. thyroid, pork, (ARMOUR THYROID) 60 mg tablet 60 tablet 5 Sig: Take 1 tablet by mouth two times a day. Mayco Valladares LPN July 22, 2024 10:25 AM [facility] 07-22-2024 Miscellaneous Notes Prescription Refill Information The patient has been identified by name and date of : Yes Caregiver verified no other encounters exist for this prescription request: Yes Caregiver confirmed with patient/requestor that no other refills are due, in the near future, with this provider at this time: Yes The last office visit in the department: 05/20/24 Does the patient have a future office visit with this provider/department: Yes, 11/18/24 Requested Prescriptions Pending Prescriptions Disp Refills Cetirizine (ZYRTEC) 10 mg cap 90 capsule 3 Sig: Take 1 capsule by mouth once daily. thyroid, pork, (ARMOUR THYROID) 60 mg tablet 60 tablet 5 Sig: Take 1 tablet by mouth two times a day. Mayco Valladares LPN July 22, 2024 10:25 AM documented in this encounter [facility] 06-22-2024 Instructions Jovanna Prince MD - 06/22/2024 1:06 PM EDT 1. To schedule the neuropsych testing call: - Jeanette Bravo or Dr. Alfaro [phone] or [phone] - [facility] [phone] option 2 2. Migraine preventative medication topiramate (also called Topamax). - Titration instructions: - Week 1-2: Take 1/2 tablet (25 mg) twice a day - Week 3 and on: take 1 pill twice a day - Stay hydrated on this medicine to prevent kidney stones documented in this encounter [facility] 06-22-2024 Note HNO ID: [id number] Author: JOVANNA PRINCE MD Service: ? Author Type: Physician Type: Progress Notes Filed: 06/22/2024 13:28 Note Text: FOLLOW UP NOTE Subjective Inés Orellana Workman is a 58 year old female who presents for follow up. CC: Tremor, headache Summary of prior care: 07/2022 right-handed female with a history of PTSD, bipolar disorder, fibromyalgia, migraine, and tremor amongst other conditions who presents for evaluation of tremor. 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 Complicated presentation primarily due to the large amount of neuropsychiatrically active medications she is on. Wellbutrin, Austedo, and Vyvanse can all contribute to tremor. Suggested tapering off Austedo for now, consider other changes in the future. For migraine, will do medrol dose ryne + compazine bridge treatment. Afterwards can take compazine. Hesitant to add additional prescription medications due to polypharmacy. Will try migraine supplements B2 and Mg. 10/2022 retry levodopa 100 TID for mixed tremor. 06/2023 fine to continue levodopa, unclear how much is FT vs organic, low concern degenerative etiology to memory symptoms, start B2. 12/2023 no changes, try to lower tremor causing meds if possible. HPI Current Issues - Off lurasidone in the last month - Not sure seeing any difference in tremor however - Mood is mostly OK, does feel a little different without lurasidone - Off Vyvanse as well - Takes cd/ld 1 pill three times, thinks it is helpful - Migraines worse with the weather - Getting around 1 / week right now lasting all day - Taking B2 - Feels like memory is worsening - Psychiatrist is Dr. Spencer Headache description: - Aura: Notes possibly seeing things hard to explain - Onset: More in the morning - Location: Typically one side or the other, uncommonly back of head - Pain: Pressure, sharp - Frequency: 1/week - Duration: All day - A/w: (+)photophobia / (+)phonophobia / (+)nausea / (+/-)osmophobia / (-)autonomic sx - Positional?: n/a - Improves with: Sleep - Triggers: Certain smells - Family Hx: Mom Current preventive: Gabapentin for fibromyalgia / neuropathy, LTG for mood, metoprolol for heart, B2 Current abortive: Compazine / excedrin (helpful) Previous preventives: Never been prescribed something specific for it, meds she has been on in the past include verapamil, metoprolol, propranolol. Previous abortives: n/a Current meds: - Wellbutrin 200 mg BID - Trintellix 20 mg daily - Lamotrigine 200 mg BID - Clonazepam 1 mg TID - Gabapentin 900 mg TID (FM, PN) - Metoprolol ER 25 mg daily - Cd/ld 25/100 one pill TID Current Outpatient Medications Medication Sig Dispense Refill prochlorperazine (COMPAZINE) 10 mg tablet Take 1 tablet by mouth two times a day as needed (migraine). 20 tablet 4 ferrous sulfate 325 mg (65 mg iron) tablet Take 1 tablet by mouth two times a day with meals. 180 tablet 1 ondansetron (ZOFRAN) 4 mg tablet Take 1 tablet by mouth once daily as needed. 10 tablet 1 blood sugar diagnostic (FREESTYLE LITE STRIPS) test strip Test blood sugar(s) once times daily. Dx: E11.40 25 Strip 3 Blood-Glucose Meter (FREESTYLE LITE METER) monitoring kit Freestyle LITE Meter Kit -Test blood sugars one time daily. DX E11.40 1 Each 0 Lancets Test blood sugar(s) one time daily. Dx: Other DM Code E11.40 Insulin: No 100 Each 11 semaglutide (OZEMPIC) 0.25 mg or 0.5 mg (2 mg/3 mL) pen Inject 0.5 mg subcutaneously one time a week. 3 mL 11 metFORMIN ER (GLUCOPHAGE XR) 500 mg 24 hr tablet Take 3 tablets by mouth daily with breakfast. 270 tablet 1 gabapentin (NEURONTIN) 300 mg capsule Take 1 capsule by mouth three times a day for 90 days. 270 capsule 0 metoprolol succinate ER (TOPROL XL) 25 mg 24 hr tablet Take 1 tablet by mouth once daily. 30 tablet 5 gabapentin (NEURONTIN) 600 mg tablet Take 1 tablet by mouth three times a day for 180 days. [address] (PROTONIX) 40 mg tablet Take 1 tablet by mouth two times a day. 180 tablet 1 rosuvastatin (CRESTOR) 5 mg tablet Take 1 tablet by mouth daily at bedtime. 90 tablet 1 Fenofibrate (LOFIBRA) 54 mg tablet Take 1 tablet by mouth once daily 90 tablet 3 carbidopa-levodopa (SINEMET) 25-100 mg per tablet Take 1 tablet by mouth three times a day. 270 tablet 1 thyroid, pork, (ARMOUR THYROID) 60 mg tablet Take 1 tablet by mouth two times a day. 60 tablet 5 Cetirizine (ZYRTEC) 10 mg cap Take 1 capsule by mouth once daily. 90 capsule 3 lisinopril (ZESTRIL) 5 mg tablet Take 1 tablet by mouth once daily. 90 tablet 3 loratadine (CLARITIN) 10 mg tablet Take 10 mg by mouth once daily. carboxymethylcellulose (REFRESH CELLUVISC) 1 % ophthalmic solution Use 1 Drop in both eyes daily at bedtime. 6 Each 5 lamoTRIgine (LAMICTAL) 200 mg tablet Take 1 tablet by mouth two times a day. 60 tablet 5 nitroglycerin sublingual (NITROQUICK) 0.3 mg SL tab (more content not included)... [facility] 06-22-2024 History of Present illness Narrative FOLLOW UP NOTE Subjective Inés Orellana Workman is a 58 year old female who presents for follow up. CC: Tremor, headache Summary of prior care: 07/2022 right-handed female with a history of PTSD, bipolar disorder, fibromyalgia, migraine, and tremor amongst other conditions who presents for evaluation of tremor. 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 Complicated presentation primarily due to the large amount of neuropsychiatrically active medications she is on. Wellbutrin, Austedo, and Vyvanse can all contribute to tremor. Suggested tapering off Austedo for now, consider other changes in the future. For migraine, will do medrol dose ryne + compazine bridge treatment. Afterwards can take compazine. Hesitant to add additional prescription medications due to polypharmacy. Will try migraine supplements B2 and Mg. 10/2022 retry levodopa 100 TID for mixed tremor. 06/2023 fine to continue levodopa, unclear how much is FT vs organic, low concern degenerative etiology to memory symptoms, start B2. 12/2023 no changes, try to lower tremor causing meds if possible. HPI Current Issues - Off lurasidone in the last month - Not sure seeing any difference in tremor however - Mood is mostly OK, does feel a little different without lurasidone - Off Vyvanse as well - Takes cd/ld 1 pill three times, thinks it is helpful - Migraines worse with the weather - Getting around 1 / week right now lasting all day - Taking B2 - Feels like memory is worsening - Psychiatrist is Dr. Spencer Headache description: - Aura: Notes possibly seeing things hard to explain - Onset: More in the morning - Location: Typically one side or the other, uncommonly back of head - Pain: Pressure, sharp - Frequency: 1/week - Duration: All day - A/w: (+)photophobia / (+)phonophobia / (+)nausea / (+/-)osmophobia / (-)autonomic sx - Positional?: n/a - Improves with: Sleep - Triggers: Certain smells - Family Hx: Mom Current preventive: Gabapentin for fibromyalgia / neuropathy, LTG for mood, metoprolol for heart, B2 Current abortive: Compazine / excedrin (helpful) Previous preventives: Never been prescribed something specific for it, meds she has been on in the past include verapamil, metoprolol, propranolol. Previous abortives: n/a Current meds: - Wellbutrin 200 mg BID - Trintellix 20 mg daily - Lamotrigine 200 mg BID - Clonazepam 1 mg TID - Gabapentin 900 mg TID (FM, PN) - Metoprolol ER 25 mg daily - Cd/ld 25/100 one pill TID Current Outpatient Medications Medication Sig Dispense Refill prochlorperazine (COMPAZINE) 10 mg tablet Take 1 tablet by mouth two times a day as needed (migraine). 20 tablet 4 ferrous sulfate 325 mg (65 mg iron) tablet Take 1 tablet by mouth two times a day with meals. 180 tablet 1 ondansetron (ZOFRAN) 4 mg tablet Take 1 tablet by mouth once daily as needed. 10 tablet 1 blood sugar diagnostic (FREESTYLE LITE STRIPS) test strip Test blood sugar(s) once times daily. Dx: E11.40 25 Strip 3 Blood-Glucose Meter (FREESTYLE LITE METER) monitoring kit Freestyle LITE Meter Kit -Test blood sugars one time daily. DX E11.40 1 Each 0 Lancets Test blood sugar(s) one time daily. Dx: Other DM Code E11.40 Insulin: No 100 Each 11 semaglutide (OZEMPIC) 0.25 mg or 0.5 mg (2 mg/3 mL) pen Inject 0.5 mg subcutaneously one time a week. 3 mL 11 metFORMIN ER (GLUCOPHAGE XR) 500 mg 24 hr tablet Take 3 tablets by mouth daily with breakfast. 270 tablet 1 gabapentin (NEURONTIN) 300 mg capsule Take 1 capsule by mouth three times a day for 90 days. 270 capsule 0 metoprolol succinate ER (TOPROL XL) 25 mg 24 hr tablet Take 1 tablet by mouth once daily. 30 tablet 5 gabapentin (NEURONTIN) 600 mg tablet Take 1 tablet by mouth three times a day for 180 days. [address] (PROTONIX) 40 mg tablet Take 1 tablet by mouth two times a day. 180 tablet 1 rosuvastatin (CRESTOR) 5 mg tablet Take 1 tablet by mouth daily at bedtime. 90 tablet 1 Fenofibrate (LOFIBRA) 54 mg tablet Take 1 tablet by mouth once daily 90 tablet 3 carbidopa-levodopa (SINEMET) 25-100 mg per tablet Take 1 tablet by mouth three times a day. 270 tablet 1 thyroid, pork, (ARMOUR THYROID) 60 mg tablet Take 1 tablet by mouth two times a day. 60 tablet 5 Cetirizine (ZYRTEC) 10 mg cap Take 1 capsule by mouth once daily. 90 capsule 3 lisinopril (ZESTRIL) 5 mg tablet Take 1 tablet by mouth once daily. 90 tablet 3 loratadine (CLARITIN) 10 mg tablet Take 10 mg by mouth once daily. carboxymethylcellulose (REFRESH CELLUVISC) 1 % ophthalmic solution Use 1 Drop in both eyes daily at bedtime. 6 Each 5 lamoTRIgine (LAMICTAL) 200 mg tablet Take 1 tablet by mouth two times a day. 60 tablet 5 nitroglycerin sublingual (NITROQUICK) 0.3 mg SL tablet Dissolve 1 tablet under the tongue every 5 minutes as needed. 25 tablet 3 Aluminum Hydrox-Magnesium Carb (GAVISCON EXTRA STRENGTH) 254-237.5 mg/5 mL susp Take 15 mL by mouth at bedtime as needed. 335 mL 3 acetaminophen (TYLENOL EXTRA STRENGTH) 500 mg tablet Take 2 tablets by mouth every 8 hours as needed for Pain. 40 tablet 0 COMPOUNDED PRESCRIPTION Initiate AutoPAP @ 10-20 cm of water with humidification mask (per patient preference) optional chin strap (if indicated) and lifetime supplies ([facility]) DX: KRZYSZTOF G47.33 1 Device 0 multivit with minerals/lutein (MULTIVITAMIN 50 PLUS ORAL) Take 1 tablet by mouth once daily. COMPOUNDED PRESCRIPTION Diabetic shoes One pair 1 Each 0 CPAP CPAP with humidification. Mask (per patient preference) optional chin strap (if indicated) , filters, tubing, humidifier and lifetime supplies. 1 Device 0 clonazePAM (KLONOPIN) 1 mg tablet 1 mg three times daily. vortioxetine (TRINTELLIX) 20 mg tablet Take 1 tablet by mouth once daily. aspirin 81 mg chewable tablet Take 1 tablet by mouth once daily. 0 CPAP Please provide supplies. Mask per preference, tubing, filters, humidity. Lifetime Supplies. Dx: G47.33 1 Device 0 COMPOUNDED PRESCRIPTION Lightweight wheelchair DX: DDD, neuropathy 1 Each 0 Wheel Chair issac DX: debility 1 Device 0 COMPOUNDED PRESCRIPTION EX-LARGE BLOOD PRESSURE CUFF KIT DX I10 1 Kit 0 Blood Pressure Test Kit-Large (QUICK RESPONSE BP MONITOR) kit 1 Kit once daily. 1 Kit 0 buPROPion HCl 200 mg 12 hr tablet Take 200 mg by mouth twice daily. PEG 400-propylene glycol (SYSTANE ULTRA) 0.4-0.3 % ophthalmic solution Use 1 Drop in both eyes twice daily. 10 mL 3 No current facility-administered medications for this visit. REVIEW OF SYSTEMS Her ROS was positive for that mentioned in the HPI. Otherwise a 10-point ROS was completed and was negative. Objective OBJECTIVE 06/22/24 1234 BP: 128/82 BP Site: Left Arm BP Position: Sitting BP Cuff Size: Regular Adult Pulse: 65 SpO2: 98% Weight: 81.8 kg (180 lb 7.1 oz) Height: 170.2 cm (5' 7) General: General Appearance: Well appearing, alert, in no acute distress, well-hydrated, well nourished. Head: Normocephalic Neck: Supple Heart: RRR Neurologic Exam: Mental Status: She is alert. Attention partially impaired. Orientation partially impaired. Recall of her history is so-so, not familiar with her medications. She is fully oriented. Attention is intact. Memory is intact. Language shows normal comprehension and fluency. Affect is appropriate. Cranial Nerves: Extraocular movements show full and smooth pursuits. No nystagmus. Visual sanchez are full to confrontation. Facial activation is symmetric. Hearing is intact to conversation. There is mild-mod hypomimia. There is mild-mod hypophonia. There is no dysarthria. Tongue is midline. Palate elevates symmetrically. Shoulder shrug is normal. Motor: Muscle bulk is normal. Muscle power is full. No bradykinesia or rigidity. Mod intermittent Y-Y head tremor during exam more than baseline though is intermittent, does not seem to distract. Sporadic rest tremor more single twitches in any limb never sustained. Moderate postural tremor resolves with distraction with some difficulty following entrainment. Sensory: Intact to fine touch Coordination: Finger to nose is smooth without ataxia. Gait/station: Uses walker for ambulation, mild head tremor during gait DATA REVIEW Actual films/image/tracing reviewed and summarized as follows: n/a Old records reviewed and summarized as follows: TSH 0.372, B12 1338, folate 7.2, B1 131, A1c 6.5 MRI Brain 07/09/20 atrophy out of proportion to age Reviewed prior records from Donna Cagle / Dr. Mary / Dr. Ascencio / Jacqueline Johnson Assessment/Plan ASSESSMENT & PLAN: Inés Orellana Workman is a 58 year old right-handed female with a history of PTSD, bipolar disorder, fibromyalgia, migraine, and tremor amongst other conditions who presents for evaluation of tremor. Her examination demonstrates mixed tremor. 1. Tremor - Just stopped lurasidone, will take more time to see if tremor abates with this - Will be trying topiramate for migraine as below - Continue low dose levodopa 2. Migraine - B2 helping, continue - Start topiramate titrate to 50 mg BID, discussed potential side effects - Continue compazine / excedrin PRN 3. Memory loss - She feels it is worsening - Will repeat neuropsych testing, had done in 2020 as part of surgical evaluation Follow-up: 5 months Risks & Side Effects of Newly Prescribed Medication, Discussed with Patient: YES Jovanna Prince MD [facility] Neurology documented in this encounter [facility] 06-21-2024 Telephone encounter Note Patient requesting refills as follows via Mychart: ELVIN: 01/08/24 NOV: 06/22/24 Requested Prescriptions Pending Prescriptions Disp Refills prochlorperazine (COMPAZINE) 10 mg tablet 20 tablet 1 Sig: Take 1 tablet by mouth two times a day as needed (migraine). Please review and advise. Rebecca Britton MA [facility] 06-21-2024 Miscellaneous Notes Patient requesting refills as follows via Mychart: ELVIN: 01/08/24Jan: 06/22/24 Requested Prescriptions Pending Prescriptions Disp Refills prochlorperazine (COMPAZINE) 10 mg tablet 20 tablet 1 Sig: Take 1 tablet by mouth two times a day as needed (migraine). Please review and advise. Rebecca Britton MA documented in this encounter [facility] 06-20-2024 Telephone encounter Note The patient has been identified by name and date of : Yes Caregiver verified no other encounters exist for this prescription request: Yes Caregiver confirmed with patient/requestor that no other refills are due, in the near future, with this provider at this time: Yes The last office visit in the department: 05/20/2024 Does the patient have a future office visit with this provider/department: Yes 11/18/2024 Requested Prescriptions Pending Prescriptions Disp Refills ferrous sulfate 325 mg (65 mg iron) tablet 180 tablet 1 Sig: Take 1 tablet by mouth two times a day with meals. Sade Vogt RN June 20, 2024 7:11 PM [facility] 06-20-2024 Miscellaneous Notes The patient has been identified by name and date of : Yes Caregiver verified no other encounters exist for this prescription request: Yes Caregiver confirmed with patient/requestor that no other refills are due, in the near future, with this provider at this time: Yes The last office visit in the department: 05/20/2024 Does the patient have a future office visit with this provider/department: Yes 11/18/2024 Requested Prescriptions Pending Prescriptions Disp Refills ferrous sulfate 325 mg (65 mg iron) tablet 180 tablet 1 Sig: Take 1 tablet by mouth two times a day with meals. Sade Vogt RN June 20, 2024 7:11 PM documented in this encounter [facility] 06-20-2024 Telephone encounter Note [facility] 06-20-2024 Miscellaneous Notes documented in this encounter [facility] 06-08-2024 Telephone encounter Note Prescription Refill Information The patient has been identified by name and date of : Yes Caregiver verified no other encounters exist for this prescription request: Yes Caregiver confirmed with patient/requestor that no other refills are due, in the near future, with this provider at this time: Yes The last office visit in the department: 05/20/24 Does the patient have a future office visit with this provider/department: Yes 11/18/24 Requested Prescriptions Pending Prescriptions Disp Refills ondansetron (ZOFRAN) 4 mg tablet 10 tablet 1 Sig: Take 1 tablet by mouth once daily as needed. Melissa Cueva LPN June 08, 2024 10:30 AM [facility] 06-08-2024 Miscellaneous Notes Prescription Refill Information The patient has been identified by name and date of : Yes Caregiver verified no other encounters exist for this prescription request: Yes Caregiver confirmed with patient/requestor that no other refills are due, in the near future, with this provider at this time: Yes The last office visit in the department: 05/20/24 Does the patient have a future office visit with this provider/department: Yes 11/18/24 Requested Prescriptions Pending Prescriptions Disp Refills ondansetron (ZOFRAN) 4 mg tablet 10 tablet 1 Sig: Take 1 tablet by mouth once daily as needed. Melissa Cueva LPN June 08, 2024 10:30 AM documented in this encounter [facility] 06-04-2024 Note HNO ID: [id number] Author: DRU SAHU, ? Service: ? Author Type: Physician Type: Progress Notes Filed: 06/04/2024 09:16 Note Text: FOLLOW UP PODIATRIC OFFICE VISIT Chief Complaint: This 58 year old who presents for follow up:fracture of right hallux and ulceration of left hallux. Patient presents to clinic for follow-up fracture of right hallux. She has no pain. She has a surgical shoe but she is not wearing. She presents to clinic in [facility]. She reports to walking barefoot at home. She is here for follow-up ulceration of left hallux. She is currently applying topical antbiotic to the toe. She denies any redness or drainage. She has multiple warts to right foot. No pain. No other complaints. PAIN EVALUATION 06/03/2024 1305 Pain Level: 1 Pain Location: Toe Description: Sore Frequency: Continuous Intervention/Comfort measure: Reposition;Relaxation Hemoglobin A1C Date Value Ref Range Status 05/20/2024 5.0 4.3 - 5.6 % Final Comment: [place] [employer] guidelines indicate that patients with HgbA1c in the range 5.7-6.4% are at increased risk for development of diabetes, and intervention by lifestyle modification may be beneficial. HgbA1c greater or equal to 6.5% is considered diagnostic of diabetes. PCP: Santhosh Holden MD PAST MEDICAL HISTORY Diagnosis Date Anxiety Powers's esophagus Bipolar 1 disorder (HCC) Dr. Orozco, psychiatry Chronic headaches Coronary-myocardial bridge DDD (degenerative disc disease) Depression 01/05/2015 Essential tremor TK tremor Fibromyalgia GERD (gastroesophageal reflux disease) HTN (hypertension) Hyperlipidemia Hypothyroid Liver fibrosis Mild CAD 08/22/2019 Neuropathy Non-melanoma skin cancer 03/08/2021 Obstructive sleep apnea PTSD (post-traumatic stress disorder) PVD (peripheral vascular disease) (HCC) Sciatica Shoulder injury Type II or unspecified type diabetes mellitus without mention of complication, not stated as uncontrolled Current Outpatient Medications Medication Sig blood sugar diagnostic (FREESTYLE LITE STRIPS) test strip Test blood sugar(s) once times daily. Dx: E11.40 Blood-Glucose Meter (FREESTYLE LITE METER) monitoring kit Freestyle LITE Meter Kit -Test blood sugars one time daily. DX E11.40 Lancets Test blood sugar(s) one time daily. Dx: Other DM Code E11.40 Insulin: No ondansetron (ZOFRAN) 4 mg tablet Take 1 tablet by mouth once daily as needed. semaglutide (OZEMPIC) 0.25 mg or 0.5 mg (2 mg/3 mL) pen Inject 0.5 mg subcutaneously one time a week. metFORMIN ER (GLUCOPHAGE XR) 500 mg 24 hr tablet Take 3 tablets by mouth daily with breakfast. gabapentin (NEURONTIN) 300 mg capsule Take 1 capsule by mouth three times a day for 90 days. metoprolol succinate ER (TOPROL XL) 25 mg 24 hr tablet Take 1 tablet by mouth once daily. gabapentin (NEURONTIN) 600 mg tablet Take 1 tablet by mouth three times a day for [address] (PROTONIX) 40 mg tablet Take 1 tablet by mouth two times a day. rosuvastatin (CRESTOR) 5 mg tablet Take 1 tablet by mouth daily at bedtime. Fenofibrate (LOFIBRA) 54 mg tablet Take 1 tablet by mouth once daily carbidopa-levodopa (SINEMET) 25-100 mg per tablet Take 1 tablet by mouth three times a day. thyroid, pork, (ARMOUR THYROID) 60 mg tablet Take 1 tablet by mouth two times a day. ferrous sulfate 325 mg (65 mg iron) tablet Take 1 tablet by mouth two times a day with meals. prochlorperazine (COMPAZINE) 10 mg tablet Take 1 tablet by mouth two times a day as needed (migraine). Cetirizine (ZYRTEC) 10 mg cap Take 1 capsule by mouth once daily. lisinopril (ZESTRIL) 5 mg tablet Take 1 tablet by mouth once daily. lurasidone (LATUDA) 20 mg tablet take 1 tablet by mouth once daily with supper loratadine (CLARITIN) 10 mg tablet Take 10 mg by mouth once daily. carboxymethylcellulose (REFRESH CELLUVISC) 1 % ophthalmic solution Use 1 Drop in both eyes daily at bedtime. lamoTRIgine (LAMICTAL) 200 mg tablet Take 1 tablet by mouth two times a day. nitroglycerin sublingual (NITROQUICK) 0.3 mg SL tablet Dissolve 1 tablet under the tongue every 5 minutes as needed. PEG 400-propylene glycol (SYSTANE ULTRA) 0.4-0.3 % ophthalmic solution Use 1 Drop in both eyes twice daily. Aluminum Hydrox-Magnesium Carb (GAVISCON EXTRA STRENGTH) 254-237.5 mg/5 mL susp Take 15 mL by mouth at bedtime as needed. acetaminophen (TYLENOL EXTRA STRENGTH) 500 mg tablet Take 2 tablets by mouth every 8 hours as needed for Pain. COMPOUNDED PRESCRIPTION Initiate AutoPAP @ 10-20 cm of water with humidification mask (per patient preference) optional chin strap (if indicated) and lifetime supplies ([facility]) DX: KRZYSZTOF G47.33 multivit with minerals/lutein (MULTIVITAMIN 50 PLUS ORAL) Take 1 tablet by mouth once daily. COMPOUNDED PRESCRIPTION Diabetic shoes One pair CPAP CPAP with humidification. Mask (per patient preference) optional chin st (more content not included)... [facility] 06-04-2024 History of Present illness Narrative FOLLOW UP PODIATRIC OFFICE VISIT Chief Complaint: This 58 year old who presents for follow up:fracture of right hallux and ulceration of left hallux. Patient presents to clinic for follow-up fracture of right hallux. She has no pain. She has a surgical shoe but she is not wearing. She presents to clinic in [facility]. She reports to walking barefoot at home. She is here for follow-up ulceration of left hallux. She is currently applying topical antbiotic to the toe. She denies any redness or drainage. She has multiple warts to right foot. No pain. No other complaints. PAIN EVALUATION 06/03/2024 1305 Pain Level: 1 Pain Location: Toe Description: Sore Frequency: Continuous Intervention/Comfort measure: Reposition;Relaxation Hemoglobin A1C Date Value Ref Range Status 05/20/2024 5.0 4.3 - 5.6 % Final Comment: [place] [employer] guidelines indicate that patients with HgbA1c in the range 5.7-6.4% are at increased risk for development of diabetes, and intervention by lifestyle modification may be beneficial. HgbA1c greater or equal to 6.5% is considered diagnostic of diabetes. PCP: Santhosh Holden MD PAST MEDICAL HISTORY Diagnosis Date Anxiety Poewrs's esophagus Bipolar 1 disorder (HCC) Dr. Orozco, psychiatry Chronic headaches Coronary-myocardial bridge DDD (degenerative disc disease) Depression 01/05/2015 Essential tremor TK tremor Fibromyalgia GERD (gastroesophageal reflux disease) HTN (hypertension) Hyperlipidemia Hypothyroid Liver fibrosis Mild CAD 08/22/2019 Neuropathy Non-melanoma skin cancer 03/08/2021 Obstructive sleep apnea PTSD (post-traumatic stress disorder) PVD (peripheral vascular disease) (HCC) Sciatica Shoulder injury Type II or unspecified type diabetes mellitus without mention of complication, not stated as uncontrolled Current Outpatient Medications Medication Sig blood sugar diagnostic (FREESTYLE LITE STRIPS) test strip Test blood sugar(s) once times daily. Dx: E11.40 Blood-Glucose Meter (FREESTYLE LITE METER) monitoring kit Freestyle LITE Meter Kit -Test blood sugars one time daily. DX E11.40 Lancets Test blood sugar(s) one time daily. Dx: Other DM Code E11.40 Insulin: No ondansetron (ZOFRAN) 4 mg tablet Take 1 tablet by mouth once daily as needed. semaglutide (OZEMPIC) 0.25 mg or 0.5 mg (2 mg/3 mL) pen Inject 0.5 mg subcutaneously one time a week. metFORMIN ER (GLUCOPHAGE XR) 500 mg 24 hr tablet Take 3 tablets by mouth daily with breakfast. gabapentin (NEURONTIN) 300 mg capsule Take 1 capsule by mouth three times a day for 90 days. metoprolol succinate ER (TOPROL XL) 25 mg 24 hr tablet Take 1 tablet by mouth once daily. gabapentin (NEURONTIN) 600 mg tablet Take 1 tablet by mouth three times a day for [address] (PROTONIX) 40 mg tablet Take 1 tablet by mouth two times a day. rosuvastatin (CRESTOR) 5 mg tablet Take 1 tablet by mouth daily at bedtime. Fenofibrate (LOFIBRA) 54 mg tablet Take 1 tablet by mouth once daily carbidopa-levodopa (SINEMET) 25-100 mg per tablet Take 1 tablet by mouth three times a day. thyroid, pork, (ARMOUR THYROID) 60 mg tablet Take 1 tablet by mouth two times a day. ferrous sulfate 325 mg (65 mg iron) tablet Take 1 tablet by mouth two times a day with meals. prochlorperazine (COMPAZINE) 10 mg tablet Take 1 tablet by mouth two times a day as needed (migraine). Cetirizine (ZYRTEC) 10 mg cap Take 1 capsule by mouth once daily. lisinopril (ZESTRIL) 5 mg tablet Take 1 tablet by mouth once daily. lurasidone (LATUDA) 20 mg tablet take 1 tablet by mouth once daily with supper loratadine (CLARITIN) 10 mg tablet Take 10 mg by mouth once daily. carboxymethylcellulose (REFRESH CELLUVISC) 1 % ophthalmic solution Use 1 Drop in both eyes daily at bedtime. lamoTRIgine (LAMICTAL) 200 mg tablet Take 1 tablet by mouth two times a day. nitroglycerin sublingual (NITROQUICK) 0.3 mg SL tablet Dissolve 1 tablet under the tongue every 5 minutes as needed. PEG 400-propylene glycol (SYSTANE ULTRA) 0.4-0.3 % ophthalmic solution Use 1 Drop in both eyes twice daily. Aluminum Hydrox-Magnesium Carb (GAVISCON EXTRA STRENGTH) 254-237.5 mg/5 mL susp Take 15 mL by mouth at bedtime as needed. acetaminophen (TYLENOL EXTRA STRENGTH) 500 mg tablet Take 2 tablets by mouth every 8 hours as needed for Pain. COMPOUNDED PRESCRIPTION Initiate AutoPAP @ 10-20 cm of water with humidification mask (per patient preference) optional chin strap (if indicated) and lifetime supplies ([facility]) DX: KRZYSZTOF G47.33 multivit with minerals/lutein (MULTIVITAMIN 50 PLUS ORAL) Take 1 tablet by mouth once daily. COMPOUNDED PRESCRIPTION Diabetic shoes One pair CPAP CPAP with humidification. Mask (per patient preference) optional chin strap (if indicated) , filters, tubing, humidifier and lifetime supplies. clonazePAM (KLONOPIN) 1 mg tablet 1 mg three times daily. vortioxetine (TRINTELLIX) 20 mg tablet Take 1 tablet by mouth once daily. aspirin 81 mg chewable tablet Take 1 tablet by mouth once daily. CPAP Please provide supplies. Mask per preference, tubing, filters, humidity. Lifetime Supplies. Dx: G47.33 COMPOUNDED PRESCRIPTION Lightweight wheelchair DX: DDD, neuropathy Wheel Chair issac DX: debility COMPOUNDED PRESCRIPTION EX-LARGE BLOOD PRESSURE CUFF KIT DX I10 Blood Pressure Test Kit-Large (QUICK RESPONSE BP MONITOR) kit 1 Kit once daily. buPROPion HCl 200 mg 12 hr tablet Take 200 mg by mouth twice daily. No current facility-administered medications for this visit. ALLERGIES Allergen Reactions Cat Hair Standardiz* Itching Eyes get really red, if cat is too close, can't breathe Cats Itching Eyes get really red, if cat is too close, can't breathe Citric Acid Intolerance Mold Spores Other: See Comments Flu like symptoms Zolpidem Other: See Comments PAST SURGICAL HISTORY Procedure Laterality Date COLONOSCOPY FLX DX W/COLLJ SPEC WHEN PFRMD 01/10/2015 Colonoscopy COLONOSCOPY SCREENING 03/12/2023 5 year colonoscopy screening recommended due 03/22/2028 DIAGNOSTIC ARTHROSCOPY SHOULDER +- SYNOVIAL BX Left 05/21/2018 Left shoulder arthroscopic subacromial decompression, open distal clavicle excision and manipulation under anesthesia EGD 2018 ENDOMETRIAL ABLATION WITH US GUIDANCE 2007 ESOPHAGOGASTRODUODENOSCOPY TRANSORAL DIAGNOSTIC 01/10/2015 EGD ESOPHAGOGASTRODUODENOSCOPY TRANSORAL DIAGNOSTIC 01/10/2016 EGD (MAC) GASTRIC BYPASS HX 03/2016 gastric sleeve HYSTERECTOMY, REVISE VAGINA; COLPECTOMY 05/16/2020 INJECTION back injections x3 PAST SURGICAL HISTORY OF 05/2020 Partial Hysterectomy w/ bladder sling TUBAL LIGATION HX 1988 Physical Exam: OBJECTIVE: Constitutional: Pt is a well developed 58 year old female who is alert, oriented, cooperative and in no apparent distress. Eyes: Following during examination. No redness or drainage. Respiratory: RR normal and nonlabored. Even breathing. No evidence of distress. Psychology: Patient is engaged during conversation. Normal affect and mood. Does not appear depressed or anxious. NVSI unchanged from previous visit. Dermatological: Nails 1-5 b/l are normal. Webspaces clean and dry 1-4 b/l. Skin appears well hydrated and supple. good color, texture, turgor. Multiple porokeratosis to right foot. No warts present. Ulceration #1: Location: left hallux Measurement: 2 mm x 2 mm Base: granular No signs of infection. Musculoskeletal/Orthopaedic: Patient has no pain to palpation of b/l feet Right hallux appears rectus with minimal swelling and no pain. Hammertoe of right 2nd toe. Xrays of right foot reviewed. Small lucency of distal phalanx, right hallux consistent with healing fracture. Incoplete healing of right 2nd toe base fracture. ASSESSMENT: Closed nondisplaced fracture of phalanx of right great toe, unspecified phalanx, initial encounter (primary encounter diagnosis) Ulcer of toe of left foot, limited to breakdown of skin (hcc) Porokeratosis Hammertoe of right foot PLAN: Fracture of right hallux: healing is noted on xray. She is not compliant with surgical shoe. Stressed the need to wear surgical shoe or rigid sole shoe. Would repeat xrays in 3 weeks. Ulceration of toe: all nonviable tissue was debrided today thru dermis. Total debridement was 2 mm x 2 mm. Will continue to treat with topical antibiotic. Appears to be healing. Porokeratosis x 4 reduced to right foot with 15 blade. Tca applied under occlusion. These do not appear to be wart. Hammertoe of right 2nd toe: follow-up in 3 weeks. Could consider surgical correction with pipj fusion but she would need to demonstrate the ability to be more compliant. Dru Sahu DPM AMB ROOMING INTAKE FLOWSHEET DATA Pain Pain Level: 1 Pain Location: Toe Description: Sore Frequency: Continuous Intervention/Comfort measure: Reposition, Relaxation Patient presents with: Right Foot - Established Patient, Follow Up, Pain, Fracture Left Great Toe - Diabetic Foot Ulcer, Established Patient Hollie Diana LPN documented in this encounter [facility] 06-03-2024 History of Present illness Narrative Radiology Service Progress Note PATIENT NAME: Inés Shanks DATE OF SERVICE: June 03, 2024 TIME: 2:19 PM PATIENT IDENTITY VERIFICATION COMPLETED USING TWO (2) IDENTIFIERS: Name and Date of confirmed by patient verbally. FALL SCREENING: Has the patient had 2 falls in the last year or 1 fall with injury or currently using an Ambulatory Assistive Device (Walker, Cane, Wheelchair, Crutches, etc.)? No PATIENT GENDER DATA: Assigned female at . status: : No status: NO. PATIENT RELEVANT IMPLANT DATA REVIEWED: Not Applicable PATIENT PRESENTS WITH AN IMPLANTABLE OR ATTACHED ENVIRONMENTAL MONITORING TECHNICIAN: No RADIOLOGY DEPARTMENT: Ultrasound PERIPHERAL IV DATA: Not applicable SIGNED BY: Annette Flor RDMS RVT June 03, 2024 2:19 PM documented in this encounter [facility] 06-03-2024 Note HNO ID: [id number] Author: ANNETTE FLOR RDMS Service: ? Author Type: Floor Care Technician Type: Progress Notes Filed: 06/03/2024 14:20 Note Text: Radiology Service Progress Note PATIENT NAME: Inés Shanks DATE OF SERVICE: June 03, 2024 TIME: 2:19 PM PATIENT IDENTITY VERIFICATION COMPLETED USING TWO (2) IDENTIFIERS: Name and Date of confirmed by patient verbally. FALL SCREENING: Has the patient had 2 falls in the last year or 1 fall with injury or currently using an Ambulatory Assistive Device (Walker, Cane, Wheelchair, Crutches, etc.)? No PATIENT GENDER DATA: Assigned female at . status: : No status: NO. PATIENT RELEVANT IMPLANT DATA REVIEWED: Not Applicable PATIENT PRESENTS WITH AN IMPLANTABLE OR ATTACHED ENVIRONMENTAL MONITORING TECHNICIAN: No RADIOLOGY DEPARTMENT: Ultrasound PERIPHERAL IV DATA: Not applicable SIGNED BY: Annette Flor RDMS RVT June 03, 2024 2:19 PM [facility] 06-03-2024 Instructions Dru Sahu - 06/03/2024 1:23 PM EDT Fracture: continue with surgical shoe. Repeat xray in 3 -4 weeks Hammertoe right 2nd toe: obtain xray in 1 month. Can discuss options Ulceration of left great toe: continue with antibiotic cream. Avoid shoes that rub. Trichloroacetic acid (TCA) has been applied to the plantar warts/porokeratosis. Rinse off in 12 hours and keep clean and dry. May bathe and shower normally starting the day after treatment The area is expected to burn and blister in about 1-3 days, if painful soak in plain, cool water. If blistered, you may drain the blister with a clean, STERILIZED needle and apply OTC antibiotic ointment and band aid to area. Repeat 2-3 times daily as needed. Tylenol or Aleve as needed for pain, provided you have no allergies to either of these. Keep scheduled follow up appointment to have wart(s) re-evaluated and/or additional treatments. documented in this encounter [facility] 06-03-2024 Note HNO ID: [id number] Author: HOLLIE DIANA LPN Service: ? Author Type: LICENSED NURSE Type: Progress Notes Filed: 06/04/2024 09:16 Note Text: AMB ROOMING INTAKE FLOWSHEET DATA Pain Pain Level: 1 Pain Location: Toe Description: Sore Frequency: Continuous Intervention/Comfort measure: Reposition, Relaxation Patient presents with: Right Foot - Established Patient, Follow Up, Pain, Fracture Left Great Toe - Diabetic Foot Ulcer, Established Patient Hollie Diana LPN [facility] 06-03-2024 History of Present illness Narrative Radiology Service Progress Note PATIENT NAME: Inés Shanks DATE OF SERVICE: June 03, 2024 TIME: 1:31 PM PATIENT IDENTITY VERIFICATION COMPLETED USING TWO (2) IDENTIFIERS: Name and Date of confirmed by patient verbally. FALL SCREENING: Has the patient had 2 falls in the last year or 1 fall with injury or currently using an Ambulatory Assistive Device (Walker, Cane, Wheelchair, Crutches, etc.)? Yes, Patient High Risk for Falls What interventions were put in place to prevent falls during this visit? Increased Observations by Caregivers PATIENT GENDER DATA: Assigned female at . status: : No status: NO. PATIENT RELEVANT IMPLANT DATA REVIEWED: Not Applicable PATIENT PRESENTS WITH AN IMPLANTABLE OR ATTACHED ENVIRONMENTAL MONITORING TECHNICIAN: No RADIOLOGY DEPARTMENT: General X-ray: Exam(s) Completed: Lower Extremity X-Ray(s): Toes, Right, GREAT TOE ONLY PERIPHERAL IV DATA: Not applicable SIGNED BY: RT Timothy(R) June 03, 2024 1:31 PM documented in this encounter [facility] 06-03-2024 Note HNO ID: [id number] Author: JOANNE MIXON RT(R) Service: ? Author Type: Technologist Type: Progress Notes Filed: 06/03/2024 13:31 Note Text: Radiology Service Progress Note PATIENT NAME: Inés Shanks DATE OF SERVICE: June 03, 2024 TIME: 1:31 PM PATIENT IDENTITY VERIFICATION COMPLETED USING TWO (2) IDENTIFIERS: Name and Date of confirmed by patient verbally. FALL SCREENING: Has the patient had 2 falls in the last year or 1 fall with injury or currently using an Ambulatory Assistive Device (Walker, Cane, Wheelchair, Crutches, etc.)? Yes, Patient High Risk for Falls What interventions were put in place to prevent falls during this visit? Increased Observations by Caregivers PATIENT GENDER DATA: Assigned female at . status: : No status: NO. PATIENT RELEVANT IMPLANT DATA REVIEWED: Not Applicable PATIENT PRESENTS WITH AN IMPLANTABLE OR ATTACHED ENVIRONMENTAL MONITORING TECHNICIAN: No RADIOLOGY DEPARTMENT: General X-ray: Exam(s) Completed: Lower Extremity X-Ray(s): Toes, Right, GREAT TOE ONLY PERIPHERAL IV DATA: Not applicable SIGNED BY: RT Timothy(R) June 03, 2024 1:31 PM [facility] 06-02-2024 Note HNO ID: [id number] Author: ROS ORTIZ OD Service: ? Author Type: SPLICER OPERATOR Type: Progress Notes Filed: 06/02/2024 15:10 Note Text: 1. Type 2 diabetes mellitus without retinopathy (HCC) (Primary) Risk of diabetic changes and vision loss can be minimized by tight control of blood sugar, blood pressure, and cholesterol levels. Educated patient to continue care with primary care doctor and/or web services architect to maintain optimum levels as they are important to avoid ocular complications. Encouraged patient to call the office immediately with any changes to vision or visual concerns. Advised to not wait until the next scheduled exam. 2. Combined forms of age-related cataract of both eyes Mild- continue to monitor 3. Dry eye syndrome of bilateral lacrimal glands Continue gel nightly and artificial tears as needed 4. Presbyopia Finalized spec rx- minimal change Follow-up in 1 year for TONI Ortiz OD June 02, 2024 3:09 PM [facility] 06-02-2024 History of Present illness Narrative 1. Type 2 diabetes mellitus without retinopathy (HCC) (Primary) Risk of diabetic changes and vision loss can be minimized by tight control of blood sugar, blood pressure, and cholesterol levels. Educated patient to continue care with primary care doctor and/or web services architect to maintain optimum levels as they are important to avoid ocular complications. Encouraged patient to call the office immediately with any changes to vision or visual concerns. Advised to not wait until the next scheduled exam. 2. Combined forms of age-related cataract of both eyes Mild- continue to monitor 3. Dry eye syndrome of bilateral lacrimal glands Continue gel nightly and artificial tears as needed 4. Presbyopia Finalized spec rx- minimal change Follow-up in 1 year for TONI Ortiz, OD June 02, 2024 3:09 PM documented in this encounter [facility] 05-25-2024 Telephone encounter Note Spoke with patient and informed of results. Transferred to scheduling for ultrasound. Suzanne Mathews MA [facility] 05-25-2024 Miscellaneous Notes Spoke with patient and informed of results. Transferred to scheduling for ultrasound. Suzanne Mathews MA Voicemail not set up. Message all circuits are busy will need to try again later. Liver is good. Her vit d is slightly low. Would take vit d otc 1000 units a day. Her kidney function is slightly reduced. Make sure drinking adequate fluid. Is slightly anemic. Looks like it might possibly be related to her kidneys Recheck labs in two weeks. Including ifobt. Do renal us. documented in this encounter [facility] 05-24-2024 Telephone encounter Note Voicemail not set up. [facility] 05-23-2024 Telephone encounter Note Message all circuits are busy will need to try again later. [facility] 05-23-2024 Telephone encounter Note Liver is good. Her vit d is slightly low. Would take vit d otc 1000 units a day. Her kidney function is slightly reduced. Make sure drinking adequate fluid. Is slightly anemic. Looks like it might possibly be related to her kidneys Recheck labs in two weeks. Including ifobt. Do renal us. [facility] 05-20-2024 Note HNO ID: [id number] Author: SANTHOSH HOLDEN MD Service: ? Author Type: Physician Type: Progress Notes Filed: 05/20/2024 15:22 Note Text: Patient presents with: 6 Month Exam HPI: Patient presents today for office visit for follow up. Diabetes: Still on the Ozempic. No GI side effects at this point. Just got a new glucometer to be able to test at home again. Has lost 67 lbs. Very pleased with her weight loss. Last A1c was great KRZYSZTOF: Does not use CPAP. Can't do home study has to go to sleep lab to do study. She knows she needs to get this set up. Notes that she does snore at night. HTN: Patient is compliant with meds Yes Monitors bp at home: No. Denies side effects: Yes. Chest pain: No. Dyspnea: No. Edema: No. Palpitations: No. Syncope: No. Headache: stable. Dizziness: No. Thyroid: Stable. Has had some hair loss. Barretts: Taking Protonix. States that symptoms controlled. Last egd 03/14 PSYCH:still seeing psych. Off of vyvanse. Doing well. Since last here, has seen podiatry, neurology, ent Has referral to see derm due to hair loss but suggested we check tsh given her weight loss. Has hx of gastric bypass. Has not had recent imaging of her fatty liver Had liver biopsy in the past Did shows fibrosis in the past. MEDICATIONS: Current Outpatient Medications Medication Sig blood sugar diagnostic (FREESTYLE LITE STRIPS) test strip Test blood sugar(s) once times daily. Dx: E11.40 Blood-Glucose Meter (FREESTYLE LITE METER) monitoring kit Freestyle LITE Meter Kit -Test blood sugars one time daily. DX E11.40 Lancets Test blood sugar(s) one time daily. Dx: Other DM Code E11.40 Insulin: No ondansetron (ZOFRAN) 4 mg tablet Take 1 tablet by mouth once daily as needed. semaglutide (OZEMPIC) 0.25 mg or 0.5 mg (2 mg/3 mL) pen Inject 0.5 mg subcutaneously one time a week. metFORMIN ER (GLUCOPHAGE XR) 500 mg 24 hr tablet Take 3 tablets by mouth daily with breakfast. gabapentin (NEURONTIN) 300 mg capsule Take 1 capsule by mouth three times a day for 90 days. metoprolol succinate ER (TOPROL XL) 25 mg 24 hr tablet Take 1 tablet by mouth once daily. gabapentin (NEURONTIN) 600 mg tablet Take 1 tablet by mouth three times a day for [address] (PROTONIX) 40 mg tablet Take 1 tablet by mouth two times a day. rosuvastatin (CRESTOR) 5 mg tablet Take 1 tablet by mouth daily at bedtime. Fenofibrate (LOFIBRA) 54 mg tablet Take 1 tablet by mouth once daily carbidopa-levodopa (SINEMET) 25-100 mg per tablet Take 1 tablet by mouth three times a day. thyroid, pork, (ARMOUR THYROID) 60 mg tablet Take 1 tablet by mouth two times a day. ferrous sulfate 325 mg (65 mg iron) tablet Take 1 tablet by mouth two times a day with meals. prochlorperazine (COMPAZINE) 10 mg tablet Take 1 tablet by mouth two times a day as needed (migraine). Cetirizine (ZYRTEC) 10 mg cap Take 1 capsule by mouth once daily. lisinopril (ZESTRIL) 5 mg tablet Take 1 tablet by mouth once daily. lurasidone (LATUDA) 20 mg tablet take 1 tablet by mouth once daily with supper loratadine (CLARITIN) 10 mg tablet Take 10 mg by mouth once daily. carboxymethylcellulose (REFRESH CELLUVISC) 1 % ophthalmic solution Use 1 Drop in both eyes daily at bedtime. lamoTRIgine (LAMICTAL) 200 mg tablet Take 1 tablet by mouth two times a day. nitroglycerin sublingual (NITROQUICK) 0.3 mg SL tablet Dissolve 1 tablet under the tongue every 5 minutes as needed. PEG 400-propylene glycol (SYSTANE ULTRA) 0.4-0.3 % ophthalmic solution Use 1 Drop in both eyes twice daily. VYVANSE 20 mg capsule 40 mg. Aluminum Hydrox-Magnesium Carb (GAVISCON EXTRA STRENGTH) 254-237.5 mg/5 mL susp Take 15 mL by mouth at bedtime as needed. acetaminophen (TYLENOL EXTRA STRENGTH) 500 mg tablet Take 2 tablets by mouth every 8 hours as needed for Pain. COMPOUNDED PRESCRIPTION Initiate AutoPAP @ 10-20 cm of water with humidification mask (per patient preference) optional chin strap (if indicated) and lifetime supplies ([facility]) DX: KRZYSZTOF G47.33 multivit with minerals/lutein (MULTIVITAMIN 50 PLUS ORAL) Take 1 tablet by mouth once daily. COMPOUNDED PRESCRIPTION Diabetic shoes One pair CPAP CPAP with humidification. Mask (per patient preference) optional chin strap (if indicated) , filters, tubing, humidifier and lifetime supplies. clonazePAM (KLONOPIN) 1 mg tablet 1 mg three times daily. vortioxetine (TRINTELLIX) 20 mg tablet Take 1 tablet by mouth once daily. aspirin 81 mg chewable tablet Take 1 tablet by mouth once daily. CPAP Please provide supplies. Mask per preference, tubing, filters, humidity. Lifetime Supplies. Dx: G47.33 COMPOUNDED PRESCRIPTION Lightweight wheelchair DX: DDD, neuropathy Wheel Chair issac DX: debility COMPOUNDED PRESCRIPTION EX-LARGE BLOOD PRESSURE CUFF KIT DX I10 Blood Pressure Test Kit-Large (QUICK RESPONSE BP MONITOR) kit 1 Kit once daily. buPROPion HCl 200 mg 12 hr tablet Take 200 m (more content not included)... [facility] 05-20-2024 History of Present illness Narrative Patient presents with: 6 Month Exam HPI: Patient presents today for office visit for follow up. Diabetes: Still on the Ozempic. No GI side effects at this point. Just got a new glucometer to be able to test at home again. Has lost 67 lbs. Very pleased with her weight loss. Last A1c was great KRZYSZTOF: Does not use CPAP. Can't do home study has to go to sleep lab to do study. She knows she needs to get this set up. Notes that she does snore at night. HTN: Patient is compliant with meds Yes Monitors bp at home: No. Denies side effects: Yes. Chest pain: No. Dyspnea: No. Edema: No. Palpitations: No. Syncope: No. Headache: stable. Dizziness: No. Thyroid: Stable. Has had some hair loss. Barretts: Taking Protonix. States that symptoms controlled. Last egd 03/14 PSYCH:still seeing psych. Off of vyvanse. Doing well. Since last here, has seen podiatry, neurology, ent Has referral to see derm due to hair loss but suggested we check tsh given her weight loss. Has hx of gastric bypass. Has not had recent imaging of her fatty liver Had liver biopsy in the past Did shows fibrosis in the past. MEDICATIONS: Current Outpatient Medications Medication Sig blood sugar diagnostic (FREESTYLE LITE STRIPS) test strip Test blood sugar(s) once times daily. Dx: E11.40 Blood-Glucose Meter (FREESTYLE LITE METER) monitoring kit Freestyle LITE Meter Kit -Test blood sugars one time daily. DX E11.40 Lancets Test blood sugar(s) one time daily. Dx: Other DM Code E11.40 Insulin: No ondansetron (ZOFRAN) 4 mg tablet Take 1 tablet by mouth once daily as needed. semaglutide (OZEMPIC) 0.25 mg or 0.5 mg (2 mg/3 mL) pen Inject 0.5 mg subcutaneously one time a week. metFORMIN ER (GLUCOPHAGE XR) 500 mg 24 hr tablet Take 3 tablets by mouth daily with breakfast. gabapentin (NEURONTIN) 300 mg capsule Take 1 capsule by mouth three times a day for 90 days. metoprolol succinate ER (TOPROL XL) 25 mg 24 hr tablet Take 1 tablet by mouth once daily. gabapentin (NEURONTIN) 600 mg tablet Take 1 tablet by mouth three times a day for [address] (PROTONIX) 40 mg tablet Take 1 tablet by mouth two times a day. rosuvastatin (CRESTOR) 5 mg tablet Take 1 tablet by mouth daily at bedtime. Fenofibrate (LOFIBRA) 54 mg tablet Take 1 tablet by mouth once daily carbidopa-levodopa (SINEMET) 25-100 mg per tablet Take 1 tablet by mouth three times a day. thyroid, pork, (ARMOUR THYROID) 60 mg tablet Take 1 tablet by mouth two times a day. ferrous sulfate 325 mg (65 mg iron) tablet Take 1 tablet by mouth two times a day with meals. prochlorperazine (COMPAZINE) 10 mg tablet Take 1 tablet by mouth two times a day as needed (migraine). Cetirizine (ZYRTEC) 10 mg cap Take 1 capsule by mouth once daily. lisinopril (ZESTRIL) 5 mg tablet Take 1 tablet by mouth once daily. lurasidone (LATUDA) 20 mg tablet take 1 tablet by mouth once daily with supper loratadine (CLARITIN) 10 mg tablet Take 10 mg by mouth once daily. carboxymethylcellulose (REFRESH CELLUVISC) 1 % ophthalmic solution Use 1 Drop in both eyes daily at bedtime. lamoTRIgine (LAMICTAL) 200 mg tablet Take 1 tablet by mouth two times a day. nitroglycerin sublingual (NITROQUICK) 0.3 mg SL tablet Dissolve 1 tablet under the tongue every 5 minutes as needed. PEG 400-propylene glycol (SYSTANE ULTRA) 0.4-0.3 % ophthalmic solution Use 1 Drop in both eyes twice daily. VYVANSE 20 mg capsule 40 mg. Aluminum Hydrox-Magnesium Carb (GAVISCON EXTRA STRENGTH) 254-237.5 mg/5 mL susp Take 15 mL by mouth at bedtime as needed. acetaminophen (TYLENOL EXTRA STRENGTH) 500 mg tablet Take 2 tablets by mouth every 8 hours as needed for Pain. COMPOUNDED PRESCRIPTION Initiate AutoPAP @ 10-20 cm of water with humidification mask (per patient preference) optional chin strap (if indicated) and lifetime supplies ([facility]) DX: KRZYSZTOF G47.33 multivit with minerals/lutein (MULTIVITAMIN 50 PLUS ORAL) Take 1 tablet by mouth once daily. COMPOUNDED PRESCRIPTION Diabetic shoes One pair CPAP CPAP with humidification. Mask (per patient preference) optional chin strap (if indicated) , filters, tubing, humidifier and lifetime supplies. clonazePAM (KLONOPIN) 1 mg tablet 1 mg three times daily. vortioxetine (TRINTELLIX) 20 mg tablet Take 1 tablet by mouth once daily. aspirin 81 mg chewable tablet Take 1 tablet by mouth once daily. CPAP Please provide supplies. Mask per preference, tubing, filters, humidity. Lifetime Supplies. Dx: G47.33 COMPOUNDED PRESCRIPTION Lightweight wheelchair DX: DDD, neuropathy Wheel Chair issac DX: debility COMPOUNDED PRESCRIPTION EX-LARGE BLOOD PRESSURE CUFF KIT DX I10 Blood Pressure Test Kit-Large (QUICK RESPONSE BP MONITOR) kit 1 Kit once daily. buPROPion HCl 200 mg 12 hr tablet Take 200 mg by mouth twice daily. No current facility-administered medications for this visit. ALLERGIES: ALLERGIES Allergen Reactions Cat Hair Standardiz* Itching Eyes get really red, if cat is too close, can't breathe Cats Itching Eyes get really red, if cat is too close, can't breathe Citric Acid Intolerance Mold Spores Other: See Comments Flu like symptoms Zolpidem Other: See Comments PAST MEDICAL HISTORY Diagnosis Date Anxiety Powers's esophagus Bipolar 1 disorder (HCC) Dr. Orozco, psychiatry Chronic headaches Coronary-myocardial bridge DDD (degenerative disc disease) Depression 01/05/2015 Essential tremor TK tremor Fibromyalgia GERD (gastroesophageal reflux disease) HTN (hypertension) Hyperlipidemia Hypothyroid Liver fibrosis Mild CAD 08/22/2019 Neuropathy Non-melanoma skin cancer 03/08/2021 Obstructive sleep apnea PTSD (post-traumatic stress disorder) PVD (peripheral vascular disease) ([facility]) Sciatica Shoulder injury Type II or unspecified type diabetes mellitus without mention of complication, not stated as uncontrolled PAST SURGICAL HISTORY Procedure Laterality Date COLONOSCOPY FLX DX W/COLLJ SPEC WHEN PFRMD 01/10/2015 Colonoscopy COLONOSCOPY SCREENING 03/12/2023 5 year colonoscopy screening recommended due 03/22/2028 DIAGNOSTIC ARTHROSCOPY SHOULDER +- SYNOVIAL BX Left 05/21/2018 Left shoulder arthroscopic subacromial decompression, open distal clavicle excision and manipulation under anesthesia EGD 2019 ENDOMETRIAL ABLATION WITH US GUIDANCE 2007 ESOPHAGOGASTRODUODENOSCOPY TRANSORAL DIAGNOSTIC 01/10/2015 EGD ESOPHAGOGASTRODUODENOSCOPY TRANSORAL DIAGNOSTIC 01/10/2016 EGD (MAC) GASTRIC BYPASS HX 03/2016 gastric sleeve HYSTERECTOMY, REVISE VAGINA; COLPECTOMY 05/16/2020 INJECTION back injections x3 PAST SURGICAL HISTORY OF 05/2020 Partial Hysterectomy w/ bladder sling TUBAL LIGATION HX 1988 FAMILY HISTORY Problem Relation Age of Onset Heart Father other (parkinson's) Father Diabetes Mother Stroke Mother Cancer Mother melanoma other (Other) Sister in infancy Mental illness Brother Alcohol/Drug Brother Stroke Maternal Grandmother Alzheimer's Disease Maternal Grandmother Diabetes Paternal Grandmother Bipolar disorder Daughter other (Other) Daughter behavioral disorder ADD/ADHD Son Bipolar disorder Son other (behavioral conduct disorder) Grandchild Glaucoma No Family History Macular Degen No Family History Social History Tobacco Use Smoking status: Former Current packs/day: 0.00 Average packs/day: 1.5 packs/day for 11.0 years (16.5 ttl pk-yrs) Types: Cigarettes Start date: 03/23/1978 Quit date: 03/23/1989 Years since quittin.1 Smokeless tobacco: Never Vaping Use Vaping status: Never Used Substance Use Topics Alcohol use: No Drug use: No Reviewed current medications, allergies, past medical history, surgical history, family history and social history today. REVIEW OF SYSTEMS All other reviewed and negative other than HPI. HEALTH MAINTENANCE: Reviewed health maintenance issues today and recommended the following in detail. Shingrix Vaccine(1 of 2) Never done Mammogram Screening due on 06/07/2023 RSV Vaccine(1 - Risk 60-74 years 1-dose series) Never done Diabetic Foot Exam due on 11/13/2023 Influenza Vaccine(1) due on 11/22/2023 Covid-19 Vaccine( season) due on 11/22/2023 Urine Albumin:Creatinine Ratio due on 12/06/2023 Cervical Cancer Screening due on 04/19/2024 Dilated Retinal Exam due soon VITALS: BP 120/62 Pulse 65 Wt 81.6 kg (180 lb) LMP 11/20/2014 (Approximate) SpO2 97% BMI 28.19 kg/m Last 4 Encounter Wt Readings: Date: Wt: 01/08/2024 92 kg (202 lb 13.2 oz) 11/11/2023 96.6 kg (213 lb) 07/24/2023 112 kg (247 lb) 07/03/2023 112.6 kg (248 lb 3.8 oz) PHYSICAL EXAMINATION: General appearance: Well appearing, alert, in no acute distress, well-hydrated, well nourished. and Walker Skin: Skin color, texture, turgor normal, no suspicious rashes or lesions Head: Normocephalic, no masses, lesions, tenderness or abnormalities Eyes: Anicteric sclera. Pupils are equally round and reactive to light. Extraocular movements are intact. Lungs: Lungs clear to auscultation. No wheezing, rhonchi, rales Heart: RRR without murmur, gallop, or rubs. No ectopy Abdomen: Normal abdominal exam, Abdomen soft, non-tender. Bowel sounds normal. No masses, organomegaly Extremities: No deformities, edema, skin discoloration, clubbing or cyanosis. Good capillary refill. Musculoskeletal: No joint swelling, deformity, or tenderness Peripheral pulses: Normal Neuro: Gait normal. Reflexes normal and symmetric. Sensation grossly intact., tremor persists. ASSESSMENT/PLAN: 1. Chronic nonintractable headache, unspecified headache type - ICD9: 784.0, ICD10: R51.9, G89.29 (primary diagnosis) - stable. 2. Fibromyalgia - ICD9: 729.1, ICD10: M79.7 Stable. 3. Essential tremor - ICD9: 333.1, ICD10: G25.0 - continue per neurology. Stable. 4. Primary hypertension - ICD9: 401.9, ICD10: I10 - Controlled - Continue current medications 5. Other hyperlipidemia - ICD9: 272.4, ICD10: E78.49 - follow progress. 6. Mild CAD - ICD9: 414.00, ICD10: I25.10 - doing well. 7. Coronary-myocardial bridge - ICD9: 746.85, ICD10: Q24.5 - on changes. 8. KRZYSZTOF (obstructive sleep apnea) - ICD9: 327.23, ICD10: G47.33 - stable. 9. Gastroesophageal reflux disease without esophagitis - ICD9: 530.81, ICD10: K21.9 - well controlled. 10. 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 - ICD9: 530.85, ICD10: K22.70 - up to date on testing. 11. Liver fibrosis - ICD9: 571.5, ICD10: K74.00 - over due for testing. See if improved after weight loss. - ALPHA FETOPROTEIN - US ABD RIGHT UPPER QUADRANT - US ELASTOGRAPHY LIVER 12. Heartburn - ICD9: 787.1, ICD10: R12 - doing well. 13. Type 2 diabetes mellitus with diabetic neuropathy, without long-term current use of insulin (HCC) - ICD9: 250.60, 357.2, ICD10: E11.40 - doing well. - HEMOGLOBIN A1C - ALBUMIN/CREATININE RATIO, URINE 14. Hypothyroidism, unspecified type - ICD9: 244.9, ICD10: E03.9 - Instructed patient on importance of taking on an empty stomach either first thing in the morning or at bedtime. - COMPLETE BLOOD COUNT AND DIFFERENTIAL - COMPREHENSIVE METABOLIC PANEL - THYROID STIMULATING HORMONE 15. H/O gastric bypass - ICD9: V45.86, ICD10: Z98.84 - follow labs. - VITAMIN B12 - FOLATE, SERUM - IRON AND TIBC - VITAMIN D 25 HYDROXY 16. Gait instability - ICD9: 781.2, ICD10: R26.81 - using walker. 17. Encounter for immunization - ICD9: V03.89, ICD10: Z23 - INFLUENZA VACCINE, AGE 6MO-64YR, TRIVALENT (AFLURIA, FLULAVAL, FLUVIRIN, FLUZONE) - PFIZER-[employer] COVID-19 VACCINE AGE 12+ YR (COMIRNATY) 18. Bipolar. Stable, per psych Santhosh Holden MD documented in this encounter [facility] 05-17-2024 Telephone encounter Note Pt medications through with another medication refill order. [facility] 05-17-2024 Miscellaneous Notes Pt medications through with another medication refill order. documented in this encounter [facility] 05-17-2024 Telephone encounter Note The patient has been identified by name and date of : Yes Caregiver verified no other encounters exist for this prescription request: Yes Caregiver confirmed with patient/requestor that no other refills are due, in the near future, with this provider at this time: Yes The last office visit in the department: 11/11/2023 Does the patient have a future office visit with this provider/department: Yes 05/20/2024 Requested Prescriptions Pending Prescriptions Disp Refills blood sugar diagnostic (FREESTYLE LITE STRIPS) test strip 25 Strip 3 Sig: Test blood sugar(s) once times daily. Dx: E11.40 Blood-Glucose Meter (FREESTYLE LITE METER) monitoring kit 1 Each 0 Sig: Freestyle LITE Meter Kit -Test blood sugars one time daily. DX E11.40 Lancets 100 Each 11 Sig: Test blood sugar(s) one time daily. Dx: Other DM Code E11.40 Insulin: No ondansetron (ZOFRAN) 4 mg tablet 10 tablet 1 Sig: Take 1 tablet by mouth once daily as needed. semaglutide (OZEMPIC) 0.25 mg or 0.5 mg (2 mg/3 mL) pen 3 mL 11 Sig: Inject 0.5 mg subcutaneously one time a week. Sade Vogt RN May 17, 2024 8:53 AM [facility] 05-17-2024 Miscellaneous Notes The patient has been identified by name and date of : Yes Caregiver verified no other encounters exist for this prescription request: Yes Caregiver confirmed with patient/requestor that no other refills are due, in the near future, with this provider at this time: Yes The last office visit in the department: 11/11/2023 Does the patient have a future office visit with this provider/department: Yes 05/20/2024 Requested Prescriptions Pending Prescriptions Disp Refills blood sugar diagnostic (FREESTYLE LITE STRIPS) test strip 25 Strip 3 Sig: Test blood sugar(s) once times daily. Dx: E11.40 Blood-Glucose Meter (FREESTYLE LITE METER) monitoring kit 1 Each 0 Sig: Freestyle LITE Meter Kit -Test blood sugars one time daily. DX E11.40 Lancets 100 Each 11 Sig: Test blood sugar(s) one time daily. Dx: Other DM Code E11.40 Insulin: No ondansetron (ZOFRAN) 4 mg tablet 10 tablet 1 Sig: Take 1 tablet by mouth once daily as needed. semaglutide (OZEMPIC) 0.25 mg or 0.5 mg (2 mg/3 mL) pen 3 mL 11 Sig: Inject 0.5 mg subcutaneously one time a week. Sade Vogt RN May 17, 2024 8:53 AM documented in this encounter [facility] 05-16-2024 Telephone encounter Note Prescription Refill Information The patient has been identified by name and date of : Yes Caregiver verified no other encounters exist for this prescription request: Yes Caregiver confirmed with patient/requestor that no other refills are due, in the near future, with this provider at this time: Yes The last office visit in the department: 11/11/23 Does the patient have a future office visit with this provider/department: Yes Requested Prescriptions Pending Prescriptions Disp Refills metFORMIN ER (GLUCOPHAGE XR) 500 mg 24 hr tablet 270 tablet 1 Sig: Take 3 tablets by mouth daily with breakfast. gabapentin (NEURONTIN) 300 mg capsule 270 capsule 0 Sig: Take 1 capsule by mouth three times a day for 90 days. Pina Springer LPN May 16, 2024 12:41 PM [facility] 05-16-2024 Miscellaneous Notes Prescription Refill Information The patient has been identified by name and date of : Yes Caregiver verified no other encounters exist for this prescription request: Yes Caregiver confirmed with patient/requestor that no other refills are due, in the near future, with this provider at this time: Yes The last office visit in the department: 11/11/23 Does the patient have a future office visit with this provider/department: Yes Requested Prescriptions Pending Prescriptions Disp Refills metFORMIN ER (GLUCOPHAGE XR) 500 mg 24 hr tablet 270 tablet 1 Sig: Take 3 tablets by mouth daily with breakfast. gabapentin (NEURONTIN) 300 mg capsule 270 capsule 0 Sig: Take 1 capsule by mouth three times a day for 90 days. Pina Springer LPN May 16, 2024 12:41 PM documented in this encounter [facility] 05-13-2024 Instructions Dru Sahu - 05/13/2024 1:57 PM EST Right foot skin infection: appears to be improving. Complete antibiotic as scheduled. Right great toenail: apply topical antibiotic for the next 2-3 days or until fully healed. Continue with soaking until fully healed Left great toe wound: nearly healed. Continue with topical antibiotic Repeat xrays in 3 week Follow-up in 3 weeks documented in this encounter [facility] 05-13-2024 Note HNO ID: [id number] Author: DRU SAHU, ? Service: ? Author Type: Physician Type: Progress Notes Filed: 05/14/2024 08:23 Note Text: FOLLOW UP PODIATRIC OFFICE VISIT Chief Complaint: This 58 year old who presents for follow up:fracture of right great toe Patient presents to clinic for follow-up hallux fracture She does report pain to the right hallux, 05/02 Here to get a surgical shoe She states she now recalls falling out of bed prior to having issues with the toenail. Also here for follow-up toenail avulsion, right hallux. Patient states the wound is doing better States she does have a wound to left hallux that is new PAIN EVALUATION 05/13/2024 1327 Pain Level: 2 Pain Location: Toe Hemoglobin A1C Date Value Ref Range Status 11/11/2023 5.4 4.3 - 5.6 % Final Comment: [place] [employer] guidelines indicate that patients with HgbA1c in the range 5.7-6.4% are at increased risk for development of diabetes, and intervention by lifestyle modification may be beneficial. HgbA1c greater or equal to 6.5% is considered diagnostic of diabetes. PCP: Santhosh Holden MD PAST MEDICAL HISTORY Diagnosis Date Anxiety Powers's esophagus Bipolar 1 disorder (HCC) Dr. Orozco, psychiatry Chronic headaches Coronary-myocardial bridge DDD (degenerative disc disease) Depression 01/05/2015 Essential tremor TK tremor Fibromyalgia GERD (gastroesophageal reflux disease) HTN (hypertension) Hyperlipidemia Hypothyroid Liver fibrosis Mild CAD 08/22/2019 Neuropathy Non-melanoma skin cancer 03/08/2021 Obstructive sleep apnea PTSD (post-traumatic stress disorder) PVD (peripheral vascular disease) (HCC) Sciatica Shoulder injury Type II or unspecified type diabetes mellitus without mention of complication, not stated as uncontrolled Current Outpatient Medications Medication Sig metoprolol succinate ER (TOPROL XL) 25 mg 24 hr tablet Take 1 tablet by mouth once daily. gabapentin (NEURONTIN) 600 mg tablet Take 1 tablet by mouth three times a day for [address] (PROTONIX) 40 mg tablet Take 1 tablet by mouth two times a day. amoxicillin-clavulanate potassium (AUGMENTIN) 875-125 mg per tablet Take 1 tablet by mouth two times a day for 10 days. FOR 10 DAYS. rosuvastatin (CRESTOR) 5 mg tablet Take 1 tablet by mouth daily at bedtime. gabapentin (NEURONTIN) 300 mg capsule Take 1 capsule by mouth three times a day for 90 days. Fenofibrate (LOFIBRA) 54 mg tablet Take 1 tablet by mouth once daily carbidopa-levodopa (SINEMET) 25-100 mg per tablet Take 1 tablet by mouth three times a day. thyroid, pork, (ARMOUR THYROID) 60 mg tablet Take 1 tablet by mouth two times a day. ferrous sulfate 325 mg (65 mg iron) tablet Take 1 tablet by mouth two times a day with meals. prochlorperazine (COMPAZINE) 10 mg tablet Take 1 tablet by mouth two times a day as needed (migraine). metFORMIN ER (GLUCOPHAGE XR) 500 mg 24 hr tablet Take 3 tablets by mouth daily with breakfast. ondansetron (ZOFRAN) 4 mg tablet Take 1 tablet by mouth once daily as needed. Cetirizine (ZYRTEC) 10 mg cap Take 1 capsule by mouth once daily. blood sugar diagnostic (FREESTYLE LITE STRIPS) test strip Test blood sugar(s) once times daily. Dx: E11.40 Blood-Glucose Meter (FREESTYLE LITE METER) monitoring kit Freestyle LITE Meter Kit -Test blood sugars one time daily. DX E11.40 Lancets Test blood sugar(s) one time daily. Dx: Other DM Code E11.40 Insulin: No semaglutide (OZEMPIC) 0.25 mg or 0.5 mg (2 mg/3 mL) pen Inject 0.5 mg subcutaneously one time a week. lisinopril (ZESTRIL) 5 mg tablet Take 1 tablet by mouth once daily. lurasidone (LATUDA) 20 mg tablet take 1 tablet by mouth once daily with supper loratadine (CLARITIN) 10 mg tablet Take 10 mg by mouth once daily. carboxymethylcellulose (REFRESH CELLUVISC) 1 % ophthalmic solution Use 1 Drop in both eyes daily at bedtime. lamoTRIgine (LAMICTAL) 200 mg tablet Take 1 tablet by mouth two times a day. nitroglycerin sublingual (NITROQUICK) 0.3 mg SL tablet Dissolve 1 tablet under the tongue every 5 minutes as needed. PEG 400-propylene glycol (SYSTANE ULTRA) 0.4-0.3 % ophthalmic solution Use 1 Drop in both eyes twice daily. VYVANSE 20 mg capsule 40 mg. Aluminum Hydrox-Magnesium Carb (GAVISCON EXTRA STRENGTH) 254-237.5 mg/5 mL susp Take 15 mL by mouth at bedtime as needed. acetaminophen (TYLENOL EXTRA STRENGTH) 500 mg tablet Take 2 tablets by mouth every 8 hours as needed for Pain. COMPOUNDED PRESCRIPTION Initiate AutoPAP @ 10-20 cm of water with humidification mask (per patient preference) optional chin strap (if indicated) and lifetime supplies ([facility]) DX: KRZYSZTOF G47.33 multivit with minerals/lutein (MULTIVITAMIN 50 PLUS ORAL) Take 1 tablet by mouth once daily. COMPOUNDED PRESCRIPTION Diabetic shoes One pair CPAP CPAP with humidification. Mask (per patient preference) optional chin strap ( (more content not included)... [facility] 05-13-2024 History of Present illness Narrative FOLLOW UP PODIATRIC OFFICE VISIT Chief Complaint: This 58 year old who presents for follow up:fracture of right great toe Patient presents to clinic for follow-up hallux fracture She does report pain to the right hallux, 2/10 Here to get a surgical shoe She states she now recalls falling out of bed prior to having issues with the toenail. Also here for follow-up toenail avulsion, right hallux. Patient states the wound is doing better States she does have a wound to left hallux that is new PAIN EVALUATION 05/13/2024 1327 Pain Level: 2 Pain Location: Toe Hemoglobin A1C Date Value Ref Range Status 11/11/2023 5.4 4.3 - 5.6 % Final Comment: [place] [employer] guidelines indicate that patients with HgbA1c in the range 5.7-6.4% are at increased risk for development of diabetes, and intervention by lifestyle modification may be beneficial. HgbA1c greater or equal to 6.5% is considered diagnostic of diabetes. PCP: Santhosh Holden MD PAST MEDICAL HISTORY Diagnosis Date Anxiety Powers's esophagus Bipolar 1 disorder (HCC) Dr. Orozco, psychiatry Chronic headaches Coronary-myocardial bridge DDD (degenerative disc disease) Depression 01/05/2015 Essential tremor TK tremor Fibromyalgia GERD (gastroesophageal reflux disease) HTN (hypertension) Hyperlipidemia Hypothyroid Liver fibrosis Mild CAD 08/22/2019 Neuropathy Non-melanoma skin cancer 03/08/2021 Obstructive sleep apnea PTSD (post-traumatic stress disorder) PVD (peripheral vascular disease) (HCC) Sciatica Shoulder injury Type II or unspecified type diabetes mellitus without mention of complication, not stated as uncontrolled Current Outpatient Medications Medication Sig metoprolol succinate ER (TOPROL XL) 25 mg 24 hr tablet Take 1 tablet by mouth once daily. gabapentin (NEURONTIN) 600 mg tablet Take 1 tablet by mouth three times a day for [address] (PROTONIX) 40 mg tablet Take 1 tablet by mouth two times a day. amoxicillin-clavulanate potassium (AUGMENTIN) 875-125 mg per tablet Take 1 tablet by mouth two times a day for 10 days. FOR 10 DAYS. rosuvastatin (CRESTOR) 5 mg tablet Take 1 tablet by mouth daily at bedtime. gabapentin (NEURONTIN) 300 mg capsule Take 1 capsule by mouth three times a day for 90 days. Fenofibrate (LOFIBRA) 54 mg tablet Take 1 tablet by mouth once daily carbidopa-levodopa (SINEMET) 25-100 mg per tablet Take 1 tablet by mouth three times a day. thyroid, pork, (ARMOUR THYROID) 60 mg tablet Take 1 tablet by mouth two times a day. ferrous sulfate 325 mg (65 mg iron) tablet Take 1 tablet by mouth two times a day with meals. prochlorperazine (COMPAZINE) 10 mg tablet Take 1 tablet by mouth two times a day as needed (migraine). metFORMIN ER (GLUCOPHAGE XR) 500 mg 24 hr tablet Take 3 tablets by mouth daily with breakfast. ondansetron (ZOFRAN) 4 mg tablet Take 1 tablet by mouth once daily as needed. Cetirizine (ZYRTEC) 10 mg cap Take 1 capsule by mouth once daily. blood sugar diagnostic (FREESTYLE LITE STRIPS) test strip Test blood sugar(s) once times daily. Dx: E11.40 Blood-Glucose Meter (FREESTYLE LITE METER) monitoring kit Freestyle LITE Meter Kit -Test blood sugars one time daily. DX E11.40 Lancets Test blood sugar(s) one time daily. Dx: Other DM Code E11.40 Insulin: No semaglutide (OZEMPIC) 0.25 mg or 0.5 mg (2 mg/3 mL) pen Inject 0.5 mg subcutaneously one time a week. lisinopril (ZESTRIL) 5 mg tablet Take 1 tablet by mouth once daily. lurasidone (LATUDA) 20 mg tablet take 1 tablet by mouth once daily with supper loratadine (CLARITIN) 10 mg tablet Take 10 mg by mouth once daily. carboxymethylcellulose (REFRESH CELLUVISC) 1 % ophthalmic solution Use 1 Drop in both eyes daily at bedtime. lamoTRIgine (LAMICTAL) 200 mg tablet Take 1 tablet by mouth two times a day. nitroglycerin sublingual (NITROQUICK) 0.3 mg SL tablet Dissolve 1 tablet under the tongue every 5 minutes as needed. PEG 400-propylene glycol (SYSTANE ULTRA) 0.4-0.3 % ophthalmic solution Use 1 Drop in both eyes twice daily. VYVANSE 20 mg capsule 40 mg. Aluminum Hydrox-Magnesium Carb (GAVISCON EXTRA STRENGTH) 254-237.5 mg/5 mL susp Take 15 mL by mouth at bedtime as needed. acetaminophen (TYLENOL EXTRA STRENGTH) 500 mg tablet Take 2 tablets by mouth every 8 hours as needed for Pain. COMPOUNDED PRESCRIPTION Initiate AutoPAP @ 10-20 cm of water with humidification mask (per patient preference) optional chin strap (if indicated) and lifetime supplies ([facility]) DX: KRZYSZTOF G47.33 multivit with minerals/lutein (MULTIVITAMIN 50 PLUS ORAL) Take 1 tablet by mouth once daily. COMPOUNDED PRESCRIPTION Diabetic shoes One pair CPAP CPAP with humidification. Mask (per patient preference) optional chin strap (if indicated) , filters, tubing, humidifier and lifetime supplies. clonazePAM (KLONOPIN) 1 mg tablet 1 mg three times daily. vortioxetine (TRINTELLIX) 20 mg tablet Take 1 tablet by mouth once daily. aspirin 81 mg chewable tablet Take 1 tablet by mouth once daily. CPAP Please provide supplies. Mask per preference, tubing, filters, humidity. Lifetime Supplies. Dx: G47.33 COMPOUNDED PRESCRIPTION Lightweight wheelchair DX: DDD, neuropathy Wheel Chair issac DX: debility COMPOUNDED PRESCRIPTION EX-LARGE BLOOD PRESSURE CUFF KIT DX I10 Blood Pressure Test Kit-Large (QUICK RESPONSE BP MONITOR) kit 1 Kit once daily. buPROPion HCl 200 mg 12 hr tablet Take 200 mg by mouth twice daily. No current facility-administered medications for this visit. ALLERGIES Allergen Reactions Cat Hair Standardiz* Itching Eyes get really red, if cat is too close, can't breathe Cats Itching Eyes get really red, if cat is too close, can't breathe Citric Acid Intolerance Mold Spores Other: See Comments Flu like symptoms Zolpidem Other: See Comments PAST SURGICAL HISTORY Procedure Laterality Date COLONOSCOPY FLX DX W/COLLJ SPEC WHEN PFRMD 01/10/2015 Colonoscopy COLONOSCOPY SCREENING 03/12/2023 5 year colonoscopy screening recommended due 03/22/2028 DIAGNOSTIC ARTHROSCOPY SHOULDER +- SYNOVIAL BX Left 05/21/2018 Left shoulder arthroscopic subacromial decompression, open distal clavicle excision and manipulation under anesthesia EGD 2019 ENDOMETRIAL ABLATION WITH US GUIDANCE 2007 ESOPHAGOGASTRODUODENOSCOPY TRANSORAL DIAGNOSTIC 01/10/2015 EGD ESOPHAGOGASTRODUODENOSCOPY TRANSORAL DIAGNOSTIC 01/10/2016 EGD (MAC) GASTRIC BYPASS HX 03/2016 gastric sleeve HYSTERECTOMY, REVISE VAGINA; COLPECTOMY 05/16/2020 INJECTION back injections x3 PAST SURGICAL HISTORY OF 05/2020 Partial Hysterectomy w/ bladder sling TUBAL LIGATION HX 1988 Physical Exam: OBJECTIVE: Constitutional: Pt is a well developed 58 year old female who is alert, oriented, cooperative and in no apparent distress. Eyes: Following during examination. No redness or drainage. Respiratory: RR normal and nonlabored. Even breathing. No evidence of distress. Psychology: Patient is engaged during conversation. Normal affect and mood. Does not appear depressed or anxious. NVSI unchanged from previous visit. Dermatological: Right hallux nail bed is now healed without signs of infection Right 2nd nail bed is healed Small, superficial wound of left hallux without infection. Wound measures 6 mm x 5 mm. Nails 1-5 left and 3-5 right are elongated, discolored, painful. Musculoskeletal/Orthopaedic: Patient has no pain to palpation of right hallux Xrays reviewed of right hallux. There is healing fracture of right hallux with increased callus formation. ASSESSMENT: (S92.404A) Closed nondisplaced fracture of phalanx of right great toe, unspecified phalanx, initial encounter (primary encounter diagnosis) (S91.109A) Open wound of toe, initial encounter (L97.521) Ulcer of toe of left foot, limited to breakdown of skin (HCC) Onychomycosis Pain in toe PLAN: Reviewed xrays of right hallux. In light of t his new information provided with patient falling out of the bed, I feel the findings on xray are now consistent with fracture and that it now appears to be healing. There is increased callus formation. I am going to have her continue with firm sole sneaker or surgical shoe. Will repeat xrays in 3 weeks at which time, she will likely be able to transition back into a sneaker. Surgical shoe dispensed. Repeat xrays in 3 weeks Regarding the nail bed of right hallux, it is nearly healed. Can apply topical antibiotic to the toe until healed. No need for any additional antibiotic. Discussed the superficial wound of left hallux. No signs of infection. Per patient, this just developed. Likely caused by rubbing in crocs without socks. Would avoid crocs if possible. Would suggest to wearing socks with shoes. Can apply topical antibiotic to the toe ulceration daily. Toenails 1-5 left and 3-5 right debrided in length and thickness. Will have patient follow-up in 3 weeks to evaluate fracture of right hallux and ulceration of left great toe. Dru Sahu DPM Patient presents with: Right Foot - Established Patient, Follow Up, Pain, Fracture Left Great Toe - New, Diabetic Foot Ulcer AMB ROOMING INTAKE FLOWSHEET DATA Pain Pain Level: 2 Pain Location: Toe Patient presents for follow up of right 1st and 2nd toenail avulsion. Previous Xray showed fracture to right great toe. Patient states that her daughter mentioned that she had fallen out of bed prior to the nail coming off. So there might have been a possible injury to cause the fracture. Also states that she has a small ulcer to the top of her left great toe. States that it has been there for a few weeks. Xray prior to appointment. ELVIN 05/05/24 documented in this encounter [facility] 05-13-2024 History of Present illness Narrative Radiology Service Progress Note PATIENT NAME: Inés Shanks DATE OF SERVICE: May 13, 2024 TIME: 3:33 PM PATIENT IDENTITY VERIFICATION COMPLETED USING TWO (2) IDENTIFIERS: Name and Date of confirmed by patient verbally. FALL SCREENING: Has the patient had 2 falls in the last year or 1 fall with injury or currently using an Ambulatory Assistive Device (Walker, Cane, Wheelchair, Crutches, etc.)? Yes, Patient High Risk for Falls What interventions were put in place to prevent falls during this visit? Increased Observations by Caregivers PATIENT GENDER DATA: Assigned female at . status: : No status: NO. PATIENT RELEVANT IMPLANT DATA REVIEWED: Not Applicable PATIENT PRESENTS WITH AN IMPLANTABLE OR ATTACHED ENVIRONMENTAL MONITORING TECHNICIAN: No RADIOLOGY DEPARTMENT: General X-ray: Exam(s) Completed: Lower Extremity X-Ray(s): Toes, Right, great toe PERIPHERAL IV DATA: Not applicable SIGNED BY: RT Timothy([place]) May 13, 2024 3:33 PM documented in this encounter [facility] 05-13-2024 Note HNO ID: [id number] Author: JOANNE MIXON RT([place]) Service: ? Author Type: Technologist Type: Progress Notes Filed: 05/13/2024 15:34 Note Text: Radiology Service Progress Note PATIENT NAME: Inés Shanks DATE OF SERVICE: May 13, 2024 TIME: 3:33 PM PATIENT IDENTITY VERIFICATION COMPLETED USING TWO (2) IDENTIFIERS: Name and Date of confirmed by patient verbally. FALL SCREENING: Has the patient had 2 falls in the last year or 1 fall with injury or currently using an Ambulatory Assistive Device (Walker, Cane, Wheelchair, Crutches, etc.)? Yes, Patient High Risk for Falls What interventions were put in place to prevent falls during this visit? Increased Observations by Caregivers PATIENT GENDER DATA: Assigned female at . status: : No status: NO. PATIENT RELEVANT IMPLANT DATA REVIEWED: Not Applicable PATIENT PRESENTS WITH AN IMPLANTABLE OR ATTACHED ENVIRONMENTAL MONITORING TECHNICIAN: No RADIOLOGY DEPARTMENT: General X-ray: Exam(s) Completed: Lower Extremity X-Ray(s): Toes, Right, great toe PERIPHERAL IV DATA: Not applicable SIGNED BY: RT Timothy(R) May 13, 2024 3:33 PM [facility] 05-13-2024 Note HNO ID: [id number] Author: SADE RODRIGUEZ RN Service: ? Author Type: Registered Nurse Type: Progress Notes Filed: 05/14/2024 08:23 Note Text: Patient presents with: Right Foot - Established Patient, Follow Up, Pain, Fracture Left Great Toe - New, Diabetic Foot Ulcer AMB ROOMING INTAKE FLOWSHEET DATA Pain Pain Level: 2 Pain Location: Toe Patient presents for follow up of right 1st and 2nd toenail avulsion. Previous Xray showed fracture to right great toe. Patient states that her daughter mentioned that she had fallen out of bed prior to the nail coming off. So there might have been a possible injury to cause the fracture. Also states that she has a small ulcer to the top of her left great toe. States that it has been there for a few weeks. Xray prior to appointment. ELVIN 05/05/24 [facility] 05-13-2024 Telephone encounter Note Prescription Refill Information The patient has been identified by name and date of : Yes Caregiver verified no other encounters exist for this prescription request: Yes Caregiver confirmed with patient/requestor that no other refills are due, in the near future, with this provider at this time: Yes The last office visit in the department: 11/11/23 Does the patient have a future office visit with this provider/department: Yes, 05/20/24 Requested Prescriptions Pending Prescriptions Disp Refills gabapentin (NEURONTIN) 600 mg tablet 270 tablet 1 Sig: Take 1 tablet by mouth three times a day for 180 days. Mayco Valladares LPN May 13, 2024 11:41 AM [facility] 05-13-2024 Miscellaneous Notes Prescription Refill Information The patient has been identified by name and date of : Yes Caregiver verified no other encounters exist for this prescription request: Yes Caregiver confirmed with patient/requestor that no other refills are due, in the near future, with this provider at this time: Yes The last office visit in the department: 11/11/23 Does the patient have a future office visit with this provider/department: Yes, 05/20/24 Requested Prescriptions Pending Prescriptions Disp Refills gabapentin (NEURONTIN) 600 mg tablet 270 tablet 1 Sig: Take 1 tablet by mouth three times a day for 180 days. Mayco Valladares LPN May 13, 2024 11:41 AM documented in this encounter [facility] 05-13-2024 Telephone encounter Note Prescription Refill Information The patient has been identified by name and date of : Yes Caregiver verified no other encounters exist for this prescription request: Yes Caregiver confirmed with patient/requestor that no other refills are due, in the near future, with this provider at this time: Yes The last office visit in the department: 11/11/23 Does the patient have a future office visit with this provider/department: Yes, 05/20/24 Requested Prescriptions Pending Prescriptions Disp Refills metoprolol succinate ER (TOPROL XL) 25 mg 24 hr tablet 30 tablet 5 Sig: Take 1 tablet by mouth once daily. Mayco Valladares LPN May 13, 2024 11:38 AM [facility] 05-13-2024 Miscellaneous Notes Prescription Refill Information The patient has been identified by name and date of : Yes Caregiver verified no other encounters exist for this prescription request: Yes Caregiver confirmed with patient/requestor that no other refills are due, in the near future, with this provider at this time: Yes The last office visit in the department: 11/11/23 Does the patient have a future office visit with this provider/department: Yes, 05/20/24 Requested Prescriptions Pending Prescriptions Disp Refills metoprolol succinate ER (TOPROL XL) 25 mg 24 hr tablet 30 tablet 5 Sig: Take 1 tablet by mouth once daily. Mayco Valladares LPN May 13, 2024 11:38 AM documented in this encounter [facility] 05-10-2024 Note HNO ID: [id number] Author: ZEENAT JOHNSTON MD Service: ? Author Type: Physician Type: Progress Notes Filed: 05/10/2024 11:56 Note Text: INPATIENT E-CONSULT PROVIDER TO PROVIDER NOTE SERVICE DATE: 05/10/2024 PATIENT LOCATION: Room/bed info not found REQUESTING PROVIDER: Dru Sahu DPM CONSULTING SERVICE: Infectious diseases I am being asked to provide an opinion on pathological versus fracture for Inés who is a 58 year old female. I am requesting an Infectious Disease E-Consult for my 58 year old female patient, Inés A Workman who is being treated for cellulitis of right hallux second to ingrowing toenail This is a patient who presented to me in March for infected ingrowing toenail of first and 2nd toe. Was treated initially with toenail removal and antibiotic. This patient failed to soak her toes as instructed. She presented to my clinic 3 weeks or so later and her right great toe was still swollen and red with some drainage. I debrided the toe and obtained an updated culture and placed her on antibiotics. I ordered an xray and it shows subacute fracture. She does not recall any trauma but does report it is possible she may have stubbed her toe. Hard to say at this time is this a true fracture or perhaps pathologic fracture second to bone infection. I discussed with radiology and they really believe it is subacute fracture. I plan to repeat xray sin 2 weeks. Wanted to get ID opinion as to whether or not to treat this as pathologic fracture second to bone infection vs just fracture. Hard to really get any advanced imaging as any mri would show marrow changes. Plan to just follow-up with xray. My clinical question: pathologic fracture vs traumatic fracture Please assess and respond with your recommendations regarding Need for antimicrobial therapy Assessment plan I reviewed patient chart in detail. Reviewed culture results and susceptibilities. In my opinion, decision to treat as a pathological fracture or fracture depends on your clinical decision based sinus symptoms. May be orthopedic opinion helpful but if you decide to treat then I will prefer doxycycline for MSSA. I spent 22 minutes reviewing records, addressing clinical questions/concerns, and transmitting my assessment and recommendations (by direct communication if indicated) to the requesting team. The patient or patient's mechanical service representative consented to e-consultation. SIGNATURE: Zeenat Johnston MD PATIENT NAME: Inés Shanks DATE: May 10, 2024 TIME: 11:53 AM [facility] 05-10-2024 History of Present illness Narrative INPATIENT E-CONSULT PROVIDER TO PROVIDER NOTE SERVICE DATE: 05/10/2024 PATIENT LOCATION: Room/bed info not found REQUESTING PROVIDER: Dru Sahu DPM CONSULTING SERVICE: Infectious diseases I am being asked to provide an opinion on pathological versus fracture for Inés who is a 58 year old female. I am requesting an Infectious Disease E-Consult for my 58 year old female patient, Inés Shanks who is being treated for cellulitis of right hallux second to ingrowing toenail This is a patient who presented to me in March for infected ingrowing toenail of first and 2nd toe. Was treated initially with toenail removal and antibiotic. This patient failed to soak her toes as instructed. She presented to my clinic 3 weeks or so later and her right great toe was still swollen and red with some drainage. I debrided the toe and obtained an updated culture and placed her on antibiotics. I ordered an xray and it shows subacute fracture. She does not recall any trauma but does report it is possible she may have stubbed her toe. Hard to say at this time is this a true fracture or perhaps pathologic fracture second to bone infection. I discussed with radiology and they really believe it is subacute fracture. I plan to repeat xray sin 2 weeks. Wanted to get ID opinion as to whether or not to treat this as pathologic fracture second to bone infection vs just fracture. Hard to really get any advanced imaging as any mri would show marrow changes. Plan to just follow-up with xray. My clinical question: pathologic fracture vs traumatic fracture Please assess and respond with your recommendations regarding Need for antimicrobial therapy Assessment plan I reviewed patient chart in detail. Reviewed culture results and susceptibilities. In my opinion, decision to treat as a pathological fracture or fracture depends on your clinical decision based sinus symptoms. May be orthopedic opinion helpful but if you decide to treat then I will prefer doxycycline for MSSA. I spent 22 minutes reviewing records, addressing clinical questions/concerns, and transmitting my assessment and recommendations (by direct communication if indicated) to the requesting team. The patient or patient's mechanical service representative consented to e-consultation. SIGNATURE: Zeenat Johnston MD PATIENT NAME: Inés Shanks DATE: May 10, 2024 TIME: 11:53 AM documented in this encounter [facility] 05-10-2024 Telephone encounter Note Patient will tow picker post op shoe on Thursday05/13/2024 at office visit. Hollie Diana LPN [facility] 05-10-2024 Miscellaneous Notes Patient will tow picker post op shoe on Thursday05/13/2024 at office visit. Hollie Diana LPN Contacted patient to discuss xrays. She finally got back to my Integr[employer] message. I would like her to get surgical shoe for fracture of great toe. She is to repeat xrays of right great toe in 2 weeks. Continue with local wound care I attempted to contact patient but no answer. Unable to leave voice mail because her voice mail is yet to be set up. Left pMediaNetworkhart message Dru Sahu DPM documented in this encounter [facility] 05-10-2024 Telephone encounter Note Contacted patient to discuss xrays. She finally got back to my [employer] message. I would like her to get surgical shoe for fracture of great toe. She is to repeat xrays of right great toe in 2 weeks. Continue with local wound care [facility] 05-06-2024 Telephone encounter Note I attempted to contact patient but no answer. Unable to leave voice mail because her voice mail is yet to be set up. Left Integrate message Dru Sahu DPM [facility] 05-06-2024 Telephone encounter Note The following approved medication requests have been transmitted electronically. Requested Prescriptions Pending Prescriptions Disp Refills pantoprazole DR (PROTONIX) 40 mg tablet 180 tablet 1 Sig: Take 1 tablet by mouth two times a day. Nanette Carroll APRN.CNP [facility] 05-06-2024 Miscellaneous Notes The following approved medication requests have been transmitted electronically. Requested Prescriptions Pending Prescriptions Disp Refills pantoprazole DR (PROTONIX) 40 mg tablet 180 tablet 1 Sig: Take 1 tablet by mouth two times a day. Nanette Carroll APRN.CNP Prescription Refill Information The patient has been identified by name and date of : Yes Caregiver verified no other encounters exist for this prescription request: Yes Caregiver confirmed with patient/requestor that no other refills are due, in the near future, with this provider at this time: Yes The last office visit in the department: 11/11/23 Does the patient have a future office visit with this provider/department: Yes 05/13/24 Requested Prescriptions Pending Prescriptions Disp Refills pantoprazole DR (PROTONIX) 40 mg tablet 180 tablet 1 Sig: Take 1 tablet by mouth two times a day. Melissa Cueva LPN May 06, 2024 1:00 PM documented in this encounter [facility] 05-06-2024 Telephone encounter Note Prescription Refill Information The patient has been identified by name and date of : Yes Caregiver verified no other encounters exist for this prescription request: Yes Caregiver confirmed with patient/requestor that no other refills are due, in the near future, with this provider at this time: Yes The last office visit in the department: 11/11/23 Does the patient have a future office visit with this provider/department: Yes 05/13/24 Requested Prescriptions Pending Prescriptions Disp Refills pantoprazole DR (PROTONIX) 40 mg tablet 180 tablet 1 Sig: Take 1 tablet by mouth two times a day. Melissa Cueva LPN May 06, 2024 1:00 PM [facility] 05-05-2024 Instructions Dru Sahu - 05/05/2024 2:03 PM EST Soak your right foot in soap and water x 10 minutes daily Dry thoroughly Apply topical antibiotic and band aide to the toe Follow-up in 1-2 weeks documented in this encounter [facility] 05-05-2024 Note HNO ID: [id number] Author: DRU SAHU, ? Service: ? Author Type: Physician Type: Progress Notes Filed: 05/05/2024 14:08 Note Text: FOLLOW UP PODIATRIC OFFICE VISIT Chief Complaint: This 58 year old who presents for follow up:right 1st and 2nd toe s/p total nail avulsion Patient presents to clinic for follow-up right 1st and 2nd toe She had the nails removed second to infection. She states that she has not been compliant with dressing changes or soaks. She states that she has been ill. She has n/v/f and feels weak. As a result, she just has not taken care of her toes. She has not seen anyone for the illness. She has anxiety with seeing doctors. She states the toes are red and swollen. She denies any drainage. PAIN EVALUATION 05/05/2024 1323 Pain Level: 1 Pain Location: Toe Description: Sore Duration Amount of Time: 1 Duration Units: Months Frequency: Intermittent Intervention/Comfort measure: Relaxation;Reposition;Medication Hemoglobin A1C Date Value Ref Range Status 11/11/2023 5.4 4.3 - 5.6 % Final Comment: [place] [employer] guidelines indicate that patients with HgbA1c in the range 5.7-6.4% are at increased risk for development of diabetes, and intervention by lifestyle modification may be beneficial. HgbA1c greater or equal to 6.5% is considered diagnostic of diabetes. PCP: Santhosh Holden MD PAST MEDICAL HISTORY Diagnosis Date Anxiety Powers's esophagus Bipolar 1 disorder (HCC) Dr. Orozco, psychiatry Chronic headaches Coronary-myocardial bridge DDD (degenerative disc disease) Depression 01/05/2015 Essential tremor TK tremor Fibromyalgia GERD (gastroesophageal reflux disease) HTN (hypertension) Hyperlipidemia Hypothyroid Liver fibrosis Mild CAD 08/22/2019 Neuropathy Non-melanoma skin cancer 03/08/2021 Obstructive sleep apnea PTSD (post-traumatic stress disorder) PVD (peripheral vascular disease) ([facility]) Sciatica Shoulder injury Type II or unspecified type diabetes mellitus without mention of complication, not stated as uncontrolled Current Outpatient Medications Medication Sig rosuvastatin (CRESTOR) 5 mg tablet Take 1 tablet by mouth daily at bedtime. gabapentin (NEURONTIN) 300 mg capsule Take 1 capsule by mouth three times a day for 90 days. Fenofibrate (LOFIBRA) 54 mg tablet Take 1 tablet by mouth once daily carbidopa-levodopa (SINEMET) 25-100 mg per tablet Take 1 tablet by mouth three times a day. thyroid, pork, (ARMOUR THYROID) 60 mg tablet Take 1 tablet by mouth two times a day. ferrous sulfate 325 mg (65 mg iron) tablet Take 1 tablet by mouth two times a day with meals. prochlorperazine (COMPAZINE) 10 mg tablet Take 1 tablet by mouth two times a day as needed (migraine). metFORMIN ER (GLUCOPHAGE XR) 500 mg 24 hr tablet Take 3 tablets by mouth daily with breakfast. ondansetron (ZOFRAN) 4 mg tablet Take 1 tablet by mouth once daily as needed. pantoprazole DR (PROTONIX) 40 mg tablet Take 1 tablet by mouth two times a day. metoprolol succinate ER (TOPROL XL) 25 mg 24 hr tablet Take 1 tablet by mouth once daily. gabapentin (NEURONTIN) 600 mg tablet Take 1 tablet by mouth three times a day for 180 days. Cetirizine (ZYRTEC) 10 mg cap Take 1 capsule by mouth once daily. blood sugar diagnostic (FREESTYLE LITE STRIPS) test strip Test blood sugar(s) once times daily. Dx: E11.40 Blood-Glucose Meter (FREESTYLE LITE METER) monitoring kit Freestyle LITE Meter Kit -Test blood sugars one time daily. DX E11.40 Lancets Test blood sugar(s) one time daily. Dx: Other DM Code E11.40 Insulin: No semaglutide (OZEMPIC) 0.25 mg or 0.5 mg (2 mg/3 mL) pen Inject 0.5 mg subcutaneously one time a week. lisinopril (ZESTRIL) 5 mg tablet Take 1 tablet by mouth once daily. lurasidone (LATUDA) 20 mg tablet take 1 tablet by mouth once daily with supper loratadine (CLARITIN) 10 mg tablet Take 10 mg by mouth once daily. carboxymethylcellulose (REFRESH CELLUVISC) 1 % ophthalmic solution Use 1 Drop in both eyes daily at bedtime. lamoTRIgine (LAMICTAL) 200 mg tablet Take 1 tablet by mouth two times a day. nitroglycerin sublingual (NITROQUICK) 0.3 mg SL tablet Dissolve 1 tablet under the tongue every 5 minutes as needed. VYVANSE 20 mg capsule 40 mg. Aluminum Hydrox-Magnesium Carb (GAVISCON EXTRA STRENGTH) 254-237.5 mg/5 mL susp Take 15 mL by mouth at bedtime as needed. acetaminophen (TYLENOL EXTRA STRENGTH) 500 mg tablet Take 2 tablets by mouth every 8 hours as needed for Pain. COMPOUNDED PRESCRIPTION Initiate AutoPAP @ 10-20 cm of water with humidification mask (per patient preference) optional chin strap (if indicated) and lifetime supplies ([facility]) DX: KRZYZSTOF G47.33 multivit with minerals/lutein (MULTIVITAMIN 50 PLUS ORAL) Take 1 tablet by mouth once daily. COMPOUNDED PRESCRIPTION Diabetic shoes One pair CPAP CPAP with humidification. Mask (per patient preference) optional chin (more content not included)... [facility] 05-05-2024 History of Present illness Narrative FOLLOW UP PODIATRIC OFFICE VISIT Chief Complaint: This 58 year old who presents for follow up:right 1st and 2nd toe s/p total nail avulsion Patient presents to clinic for follow-up right 1st and 2nd toe She had the nails removed second to infection. She states that she has not been compliant with dressing changes or soaks. She states that she has been ill. She has n/v/f and feels weak. As a result, she just has not taken care of her toes. She has not seen anyone for the illness. She has anxiety with seeing doctors. She states the toes are red and swollen. She denies any drainage. PAIN EVALUATION 05/05/2024 1323 Pain Level: 1 Pain Location: Toe Description: Sore Duration Amount of Time: 1 Duration Units: Months Frequency: Intermittent Intervention/Comfort measure: Relaxation;Reposition;Medication Hemoglobin A1C Date Value Ref Range Status 11/11/2023 5.4 4.3 - 5.6 % Final Comment: [place] [employer] guidelines indicate that patients with HgbA1c in the range 5.7-6.4% are at increased risk for development of diabetes, and intervention by lifestyle modification may be beneficial. HgbA1c greater or equal to 6.5% is considered diagnostic of diabetes. PCP: Santhosh Holden MD PAST MEDICAL HISTORY Diagnosis Date Anxiety Powers's esophagus Bipolar 1 disorder (HCC) Dr. Orozco, psychiatry Chronic headaches Coronary-myocardial bridge DDD (degenerative disc disease) Depression 01/05/2015 Essential tremor TK tremor Fibromyalgia GERD (gastroesophageal reflux disease) HTN (hypertension) Hyperlipidemia Hypothyroid Liver fibrosis Mild CAD 08/22/2019 Neuropathy Non-melanoma skin cancer 03/08/2021 Obstructive sleep apnea PTSD (post-traumatic stress disorder) PVD (peripheral vascular disease) (HCC) Sciatica Shoulder injury Type II or unspecified type diabetes mellitus without mention of complication, not stated as uncontrolled Current Outpatient Medications Medication Sig rosuvastatin (CRESTOR) 5 mg tablet Take 1 tablet by mouth daily at bedtime. gabapentin (NEURONTIN) 300 mg capsule Take 1 capsule by mouth three times a day for 90 days. Fenofibrate (LOFIBRA) 54 mg tablet Take 1 tablet by mouth once daily carbidopa-levodopa (SINEMET) 25-100 mg per tablet Take 1 tablet by mouth three times a day. thyroid, pork, (ARMOUR THYROID) 60 mg tablet Take 1 tablet by mouth two times a day. ferrous sulfate 325 mg (65 mg iron) tablet Take 1 tablet by mouth two times a day with meals. prochlorperazine (COMPAZINE) 10 mg tablet Take 1 tablet by mouth two times a day as needed (migraine). metFORMIN ER (GLUCOPHAGE XR) 500 mg 24 hr tablet Take 3 tablets by mouth daily with breakfast. ondansetron (ZOFRAN) 4 mg tablet Take 1 tablet by mouth once daily as needed. pantoprazole DR (PROTONIX) 40 mg tablet Take 1 tablet by mouth two times a day. metoprolol succinate ER (TOPROL XL) 25 mg 24 hr tablet Take 1 tablet by mouth once daily. gabapentin (NEURONTIN) 600 mg tablet Take 1 tablet by mouth three times a day for 180 days. Cetirizine (ZYRTEC) 10 mg cap Take 1 capsule by mouth once daily. blood sugar diagnostic (FREESTYLE LITE STRIPS) test strip Test blood sugar(s) once times daily. Dx: E11.40 Blood-Glucose Meter (FREESTYLE LITE METER) monitoring kit Freestyle LITE Meter Kit -Test blood sugars one time daily. DX E11.40 Lancets Test blood sugar(s) one time daily. Dx: Other DM Code E11.40 Insulin: No semaglutide (OZEMPIC) 0.25 mg or 0.5 mg (2 mg/3 mL) pen Inject 0.5 mg subcutaneously one time a week. lisinopril (ZESTRIL) 5 mg tablet Take 1 tablet by mouth once daily. lurasidone (LATUDA) 20 mg tablet take 1 tablet by mouth once daily with supper loratadine (CLARITIN) 10 mg tablet Take 10 mg by mouth once daily. carboxymethylcellulose (REFRESH CELLUVISC) 1 % ophthalmic solution Use 1 Drop in both eyes daily at bedtime. lamoTRIgine (LAMICTAL) 200 mg tablet Take 1 tablet by mouth two times a day. nitroglycerin sublingual (NITROQUICK) 0.3 mg SL tablet Dissolve 1 tablet under the tongue every 5 minutes as needed. VYVANSE 20 mg capsule 40 mg. Aluminum Hydrox-Magnesium Carb (GAVISCON EXTRA STRENGTH) 254-237.5 mg/5 mL susp Take 15 mL by mouth at bedtime as needed. acetaminophen (TYLENOL EXTRA STRENGTH) 500 mg tablet Take 2 tablets by mouth every 8 hours as needed for Pain. COMPOUNDED PRESCRIPTION Initiate AutoPAP @ 10-20 cm of water with humidification mask (per patient preference) optional chin strap (if indicated) and lifetime supplies ([facility]) DX: KRZYSZTOF G47.33 multivit with minerals/lutein (MULTIVITAMIN 50 PLUS ORAL) Take 1 tablet by mouth once daily. COMPOUNDED PRESCRIPTION Diabetic shoes One pair CPAP CPAP with humidification. Mask (per patient preference) optional chin strap (if indicated) , filters, tubing, humidifier and lifetime supplies. clonazePAM (KLONOPIN) 1 mg tablet 1 mg three times daily. vortioxetine (TRINTELLIX) 20 mg tablet Take 1 tablet by mouth once daily. aspirin 81 mg chewable tablet Take 1 tablet by mouth once daily. CPAP Please provide supplies. Mask per preference, tubing, filters, humidity. Lifetime Supplies. Dx: G47.33 COMPOUNDED PRESCRIPTION Lightweight wheelchair DX: DDD, neuropathy Wheel Chair issac DX: debility COMPOUNDED PRESCRIPTION EX-LARGE BLOOD PRESSURE CUFF KIT DX I10 Blood Pressure Test Kit-Large (QUICK RESPONSE BP MONITOR) kit 1 Kit once daily. buPROPion HCl 200 mg 12 hr tablet Take 200 mg by mouth twice daily. PEG 400-propylene glycol (SYSTANE ULTRA) 0.4-0.3 % ophthalmic solution Use 1 Drop in both eyes twice daily. No current facility-administered medications for this visit. ALLERGIES Allergen Reactions Cat Hair Standardiz* Itching Eyes get really red, if cat is too close, can't breathe Cats Itching Eyes get really red, if cat is too close, can't breathe Citric Acid Intolerance Mold Spores Other: See Comments Flu like symptoms Zolpidem Other: See Comments PAST SURGICAL HISTORY Procedure Laterality Date COLONOSCOPY FLX DX W/COLLJ SPEC WHEN PFRMD 01/10/2015 Colonoscopy COLONOSCOPY SCREENING 03/12/2023 5 year colonoscopy screening recommended due 03/22/2028 DIAGNOSTIC ARTHROSCOPY SHOULDER +- SYNOVIAL BX Left 05/21/2018 Left shoulder arthroscopic subacromial decompression, open distal clavicle excision and manipulation under anesthesia EGD 2018 ENDOMETRIAL ABLATION WITH US GUIDANCE 2007 ESOPHAGOGASTRODUODENOSCOPY TRANSORAL DIAGNOSTIC 01/10/2015 EGD ESOPHAGOGASTRODUODENOSCOPY TRANSORAL DIAGNOSTIC 01/10/2016 EGD (MAC) GASTRIC BYPASS HX 03/2016 gastric sleeve HYSTERECTOMY, REVISE VAGINA; COLPECTOMY 05/16/2020 INJECTION back injections x3 PAST SURGICAL HISTORY OF 05/2020 Partial Hysterectomy w/ bladder sling TUBAL LIGATION HX 1988 Physical Exam: OBJECTIVE: Constitutional: Pt is a well developed 58 year old female who is alert, oriented, cooperative and in no apparent distress. Eyes: Following during examination. No redness or drainage. Respiratory: RR normal and nonlabored. Even breathing. No evidence of distress. Psychology: Patient is engaged during conversation. Normal affect and mood. Does not appear depressed or anxious. NVSI unchanged from previous visit. Dermatological: Right hallux nail bed has dry scab with green drainage beneath the scab. This was all debrided. No exposed bone is noted. Moderate degree of redness is present. Many Staphylococcus aureus Abnormal Few skin ashlyn Musculoskeletal/Orthopaedic: Patient has no pain to palpation of right hallux ASSESSMENT: (L03.031, L02.611) Cellulitis and abscess of toe of right foot (primary encounter diagnosis) (S91.109A) Open wound of toe, initial encounter PLAN: Discussed the appearance of right great toe. Patient has what appears to be blistering along the central lateral nail fold of right hallux. I suspect this is from lack of soaking of the toe and wound care. All nonviable tissue was debrided today with tissue nippers. Purulent drainage was expressed and cultured. I am going to place patient back on augmentin x 10 days. The toe was irrigated with saline and a dressing was then applied. Will have her soak the toe daily and then apply topical antibiotic and band aide. I would prefer that she keep covered while showering. Baseline xrays ordered. Follow-up in 1-2 weeks She again was reminded that she needs to be compliant with dressing changes In order to perform a complete physical exam, limited shaving of blistered area was performed. This incidental service is integral to the evaluation and management visit in order to appropriately manage and treat the patient (for their complaint or for this visit). Dru Sahu DPM AMB ROOMING INTAKE FLOWSHEET DATA Pain Pain Level: 1 Pain Location: Toe Description: Sore Duration Amount of Time: 1 Duration Units: Months Frequency: Intermittent Intervention/Comfort measure: Relaxation, Reposition, Medication Patient presents with: Right Foot - Established Patient, Follow Up Hollie Diana LPN documented in this encounter [facility] 05-05-2024 Note HNO ID: [id number] Author: HOLLIE DIANA LPN Service: ? Author Type: LICENSED NURSE Type: Progress Notes Filed: 05/05/2024 14:08 Note Text: AMB ROOMING INTAKE FLOWSHEET DATA Pain Pain Level: 1 Pain Location: Toe Description: Sore Duration Amount of Time: 1 Duration Units: Months Frequency: Intermittent Intervention/Comfort measure: Relaxation, Reposition, Medication Patient presents with: Right Foot - Established Patient, Follow Up Hollie Diana LPN [facility] 04-25-2024 Telephone encounter Note Prescription Refill Information The patient has been identified by name and date of : Yes Caregiver verified no other encounters exist for this prescription request: Yes Caregiver confirmed with patient/requestor that no other refills are due, in the near future, with this provider at this time: Yes The last office visit in the department: 11/11/23 Does the patient have a future office visit with this provider/department: Yes 05/13/24 Requested Prescriptions Pending Prescriptions Disp Refills rosuvastatin (CRESTOR) 5 mg tablet 90 tablet 1 Sig: Take 1 tablet by mouth daily at bedtime. Melissa Cueva LPN April 25, 2024 2:56 PM [facility] 04-25-2024 Miscellaneous Notes Prescription Refill Information The patient has been identified by name and date of : Yes Caregiver verified no other encounters exist for this prescription request: Yes Caregiver confirmed with patient/requestor that no other refills are due, in the near future, with this provider at this time: Yes The last office visit in the department: 11/11/23 Does the patient have a future office visit with this provider/department: Yes 05/13/24 Requested Prescriptions Pending Prescriptions Disp Refills rosuvastatin (CRESTOR) 5 mg tablet 90 tablet 1 Sig: Take 1 tablet by mouth daily at bedtime. Melissa Cueva LPN April 25, 2024 2:56 PM documented in this encounter [facility] 03-29-2024 Note HNO ID: [id number] Author: SADE RODRIGUEZ RN Service: ? Author Type: Registered Nurse Type: Progress Notes Filed: 03/29/2024 14:01 Note Text: UNIVERSAL PROTOCOL / SAFETY CHECKLIST Procedure to be Performed: Total nail avulsion, right first and second toe Sign In: A Moment of CARE was completed. Personnel directly involved with the procedure wore the appropriate PPE (Personal Protective Equipment). Special equipment: nail kit Patient/Surrogate Stated/Verified: PATIENT VERIFIED(optional for EMERGENT procedures): Patient name, Date of , Relevant allergies, and The intended procedure Time Out Communication: Intended patient and procedure match the source documents. Consent documented and matches the intended procedure. No relevant labs, photos, and/or imaging studies were applicable for review. Correct side/site marked and visible. Medications required for procedure verified. No fire risk assessment and interventions applicable. No implant(s) inserted. Sign Out: SIGN OUT (optional for EMERGENT procedures): All specimen containers correctly labeled. All instruments, equipment, possible retained foreign bodies accounted for. Post-procedure follow-up management communicated and Plan of Care Visit completed when applicable. Sade Rodriguez RN [facility] 03-29-2024 History of Present illness Narrative UNIVERSAL PROTOCOL / SAFETY CHECKLIST Procedure to be Performed: Total nail avulsion, right first and second toe Sign In: A Moment of CARE was completed. Personnel directly involved with the procedure wore the appropriate PPE (Personal Protective Equipment). Special equipment: nail kit Patient/Surrogate Stated/Verified: PATIENT VERIFIED(optional for EMERGENT procedures): Patient name, Date of , Relevant allergies, and The intended procedure Time Out Communication: Intended patient and procedure match the source documents. Consent documented and matches the intended procedure. No relevant labs, photos, and/or imaging studies were applicable for review. Correct side/site marked and visible. Medications required for procedure verified. No fire risk assessment and interventions applicable. No implant(s) inserted. Sign Out: SIGN OUT (optional for EMERGENT procedures): All specimen containers correctly labeled. All instruments, equipment, possible retained foreign bodies accounted for. Post-procedure follow-up management communicated and Plan of Care Visit completed when applicable. Sade Rodriguez RN Chief Complaint: This 58 year old female who presents with chief complaint:cellulitis of right 1st and 2nd toe HPI Patient presents to clinic for evaluation of right foot Complains of redness and swelling of right 1st and 2nd toe States this started last week. Reports that there is swelling, redness and drainage. Also reports that the toenails are lifting. PAIN EVALUATION 03/29/2024 1131 Pain Level: 2 Pain Location: Toe Duration Amount of Time: 1 Duration Units: Weeks Frequency: Continuous Intervention/Comfort measure: Relaxation Hemoglobin A1C (%) Date Value 11/11/2023 5.4 04/03/2023 6.5 12/05/2022 7.4 05/21/2022 6.5 10/11/2021 6.1 12/04/2020 5.3 05/04/2020 5.5 02/24/2020 5.4 08/31/2019 6.0 09/24/2018 7.8 PCP: Santhosh Holden MD PAST MEDICAL HISTORY Diagnosis Date Anxiety Powers's esophagus Bipolar 1 disorder (HCC) Dr. Orozco, psychiatry Chronic headaches Coronary-myocardial bridge DDD (degenerative disc disease) Depression 01/05/2015 Essential tremor TK tremor Fibromyalgia GERD (gastroesophageal reflux disease) HTN (hypertension) Hyperlipidemia Hypothyroid Liver fibrosis Mild CAD 08/22/2019 Neuropathy Non-melanoma skin cancer 03/08/2021 Obstructive sleep apnea PTSD (post-traumatic stress disorder) PVD (peripheral vascular disease) (HCC) Sciatica Shoulder injury Type II or unspecified type diabetes mellitus without mention of complication, not stated as uncontrolled Current Outpatient Medications Medication Sig gabapentin (NEURONTIN) 300 mg capsule Take 1 capsule by mouth three times a day for 90 days. Fenofibrate (LOFIBRA) 54 mg tablet Take 1 tablet by mouth once daily carbidopa-levodopa (SINEMET) 25-100 mg per tablet Take 1 tablet by mouth three times a day. thyroid, pork, (ARMOUR THYROID) 60 mg tablet Take 1 tablet by mouth two times a day. ferrous sulfate 325 mg (65 mg iron) tablet Take 1 tablet by mouth two times a day with meals. prochlorperazine (COMPAZINE) 10 mg tablet Take 1 tablet by mouth two times a day as needed (migraine). metFORMIN ER (GLUCOPHAGE XR) 500 mg 24 hr tablet Take 3 tablets by mouth daily with breakfast. ondansetron (ZOFRAN) 4 mg tablet Take 1 tablet by mouth once daily as needed. pantoprazole DR (PROTONIX) 40 mg tablet Take 1 tablet by mouth two times a day. metoprolol succinate ER (TOPROL XL) 25 mg 24 hr tablet Take 1 tablet by mouth once daily. gabapentin (NEURONTIN) 600 mg tablet Take 1 tablet by mouth three times a day for 180 days. rosuvastatin (CRESTOR) 5 mg tablet Take 1 tablet by mouth daily at bedtime. Cetirizine (ZYRTEC) 10 mg cap Take 1 capsule by mouth once daily. blood sugar diagnostic (FREESTYLE LITE STRIPS) test strip Test blood sugar(s) once times daily. Dx: E11.40 Blood-Glucose Meter (FREESTYLE LITE METER) monitoring kit Freestyle LITE Meter Kit -Test blood sugars one time daily. DX E11.40 Lancets Test blood sugar(s) one time daily. Dx: Other DM Code E11.40 Insulin: No semaglutide (OZEMPIC) 0.25 mg or 0.5 mg (2 mg/3 mL) pen Inject 0.5 mg subcutaneously one time a week. lisinopril (ZESTRIL) 5 mg tablet Take 1 tablet by mouth once daily. lurasidone (LATUDA) 20 mg tablet take 1 tablet by mouth once daily with supper carboxymethylcellulose (REFRESH CELLUVISC) 1 % ophthalmic solution Use 1 Drop in both eyes daily at bedtime. lamoTRIgine (LAMICTAL) 200 mg tablet Take 1 tablet by mouth two times a day. nitroglycerin sublingual (NITROQUICK) 0.3 mg SL tablet Dissolve 1 tablet under the tongue every 5 minutes as needed. VYVANSE 20 mg capsule 40 mg. Aluminum Hydrox-Magnesium Carb (GAVISCON EXTRA STRENGTH) 254-237.5 mg/5 mL susp Take 15 mL by mouth at bedtime as needed. acetaminophen (TYLENOL EXTRA STRENGTH) 500 mg tablet Take 2 tablets by mouth every 8 hours as needed for Pain. COMPOUNDED PRESCRIPTION Initiate AutoPAP @ 10-20 cm of water with humidification mask (per patient preference) optional chin strap (if indicated) and lifetime supplies ([facility]) DX: KRZYSZTOF G47.33 multivit with minerals/lutein (MULTIVITAMIN 50 PLUS ORAL) Take 1 tablet by mouth once daily. COMPOUNDED PRESCRIPTION Diabetic shoes One pair CPAP CPAP with humidification. Mask (per patient preference) optional chin strap (if indicated) , filters, tubing, humidifier and lifetime supplies. clonazePAM (KLONOPIN) 1 mg tablet 1 mg three times daily. vortioxetine (TRINTELLIX) 20 mg tablet Take 1 tablet by mouth once daily. aspirin 81 mg chewable tablet Take 1 tablet by mouth once daily. CPAP Please provide supplies. Mask per preference, tubing, filters, humidity. Lifetime Supplies. Dx: G47.33 COMPOUNDED PRESCRIPTION Lightweight wheelchair DX: DDD, neuropathy Wheel Chair issac DX: debility COMPOUNDED PRESCRIPTION EX-LARGE BLOOD PRESSURE CUFF KIT DX I10 Blood Pressure Test Kit-Large (QUICK RESPONSE BP MONITOR) kit 1 Kit once daily. buPROPion HCl 200 mg 12 hr tablet Take 200 mg by mouth twice daily. loratadine (CLARITIN) 10 mg tablet Take 10 mg by mouth once daily. (Patient not taking: Reported on 03/29/2024) PEG 400-propylene glycol (SYSTANE ULTRA) 0.4-0.3 % ophthalmic solution Use 1 Drop in both eyes twice daily. No current facility-administered medications for this visit. ALLERGIES Allergen Reactions Cat Hair Standardiz* Itching Eyes get really red, if cat is too close, can't breathe Cats Itching Eyes get really red, if cat is too close, can't breathe Citric Acid Intolerance Mold Spores Other: See Comments Flu like symptoms Zolpidem Other: See Comments PAST SURGICAL HISTORY Procedure Laterality Date COLONOSCOPY FLX DX W/COLLJ SPEC WHEN PFRMD 01/10/2015 Colonoscopy COLONOSCOPY SCREENING 03/12/2023 5 year colonoscopy screening recommended due 03/22/2028 DIAGNOSTIC ARTHROSCOPY SHOULDER +- SYNOVIAL BX Left 05/21/2018 Left shoulder arthroscopic subacromial decompression, open distal clavicle excision and manipulation under anesthesia EGD 2018 ENDOMETRIAL ABLATION WITH US GUIDANCE 2007 ESOPHAGOGASTRODUODENOSCOPY TRANSORAL DIAGNOSTIC 01/10/2015 EGD ESOPHAGOGASTRODUODENOSCOPY TRANSORAL DIAGNOSTIC 01/10/2016 EGD (MAC) GASTRIC BYPASS HX 03/2016 gastric sleeve HYSTERECTOMY, REVISE VAGINA; COLPECTOMY 05/16/2020 INJECTION back injections x3 PAST SURGICAL HISTORY OF 05/2020 Partial Hysterectomy w/ bladder sling TUBAL LIGATION HX 1988 FAMILY HISTORY Problem Relation Age of Onset Heart Father other (parkinson's) Father Diabetes Mother Stroke Mother Cancer Mother melanoma other (Other) Sister in infancy Mental illness Brother Alcohol/Drug Brother Stroke Maternal Grandmother Alzheimer's Disease Maternal Grandmother Diabetes Paternal Grandmother Bipolar disorder Daughter other (Other) Daughter behavioral disorder ADD/ADHD Son Bipolar disorder Son other (behavioral conduct disorder) Grandchild Glaucoma No Family History Macular Degen No Family History Social History Tobacco Use Smoking status: Former Current packs/day: 0.00 Average packs/day: 1.5 packs/day for 11.0 years (16.5 ttl pk-yrs) Types: Cigarettes Start date: 03/23/1978 Quit date: 03/23/1989 Years since quittin.0 Smokeless tobacco: Never Vaping Use Vaping status: Never Used Substance Use Topics Alcohol use: No Drug use: No REVIEW OF SYSTEMS GENERAL: Negative for Malaise, significant weight loss, fever RESPIRATORY: Negative for cough, wheezing and shortness of breath CARDIOVASCULAR: Negative for chest pain, leg swelling and palpitations GI: Negative for abdominal discomfort, blood in stools or black stools and change in bowel habits : Negative for dysuria, frequency and incontinence MUSCULOSKELETAL: Negative for joint pain or swelling, back pain, and muscle pain. SKIN: Negative for lesions, rash, and itching. HEMATOLOGY/LYMPHOLOGY Negative for prolonged bleeding, bruising easily, and swollen nodes. ENDOCRINE: Negative for cold or heat intolerance, polyuria, polydipsia and goiter. NEURO: negative Physical Exam: Constitutional: Pt is a well developed 58 year old female who is alert, oriented and cooperative Eyes: Following during examination. No redness or drainage. Respiratory: RR normal and nonlabored. Even breathing. No evidence of distress or shortness of breath. Psychology: Patient is engaged during conversation. Normal affect and mood. Does not appear depressed or anxious during encounter. Vascular: Dorsalis pedis and posterior tibial pulses palpable as b/l Capillary Fill time < 5 seconds to digits 1-5 b/l Skin temperature warm to warm proximal to distal b/l Hair growth present to digits Neurological: intact light touch/epicritic sensation b/l Dermatological: Right 1st and 2nd toe has swelling, redness, drainage. Pic obtained and entered into epic Right 1st and 2nd toenail is lifting worse on the right hallux. Nail bed is intact to right 1st and 2nd toe Musculoskeletal/Orthopaedic: Patient has no pain to palpation of right foot Radiographs: n/a ASSESSMENT: (L03.031, L02.611) Cellulitis and abscess of toe of right foot (primary encounter diagnosis) PLAN: Discussed cellulitis of right 1st and 2nd toe. Will start patient on antibiotic. Wound culture performed of right 1st and 2nd toe. Discussed the lifting of right hallux and to less extent, right 2nd toe. Given the redness and drainage present to both first and 2nd toe, I discussed total nail avulsion of right 1st and 2nd toe. This patient has elected to proceed with total nail avulsion of right 1st and 2nd toe. Discussed risks of toenail procedure not limited to infection, pain, swelling, bleeding, painful scarring, recurrence, need for revised procedure. Patient consented to proceed. Patient was properly identified by name and procedure. The right 2nd toe was then injected with 1.5 cc of 1% lidocaine plain. The toe was then prepped and draped in the usual aseptic technique. A digital tournicot was applied to the toe. The entire nail border was then freed and removed. Careful inspection was performed to assure no remaining spicule present. Avulsion was performed. Wound culture performed. Sterile dressing was then applied consisting of amerigel, guaze, nando and coban. Tournicot was removed and hyperemic response was noted. Patient tolerated well. Patient will f/u in 2 weeks. Discussed risks of toenail procedure not limited to infection, pain, swelling, bleeding, painful scarring, recurrence, need for revised procedure. Patient consented to proceed. Patient was properly identified by name and procedure. The right hallux was then injected with 3 cc of 1% lidocaine plain. The toe was then prepped and draped in the usual aseptic technique. A digital tournicot was applied to the toe. The entire nail border was then freed and removed. Careful inspection was performed to assure no remaining spicule present. Avulsion was performed. Wound culture performed. Bleeding was controlled with pressure and silver nitrate. Sterile dressing was then applied consisting of amerigel, guaze, nando and coban. Tournicot was removed and hyperemic response was noted. Patient tolerated well. Patient will f/u in 2 weeks. The right 1st and 2nd toe was outlined with marker. If redness were to worsen, would recommend presentation to the hospital. Offered xrays. Patient declined. Dru Sahu DPM Podiatry [address] [facility] [id number] Dept: [phone] Dept AMB ROOMING INTAKE FLOWSHEET DATA Pain Pain Level: 2 Pain Location: Toe Duration Amount of Time: 1 Duration Units: Weeks Frequency: Continuous Intervention/Comfort measure: Relaxation Patient presents with: Right Foot - Established Patient, Infection, Pain Patient presents for wound to right 1st and 2nd toe. States that it started as a blood blister about a week ago. Toes are red and swollen. Small wound noted to 2nd toe, 1st toenail appears to be at the base. Patient is a diabetic with a history of neuropathy. ELVIN 11/19/22 documented in this encounter [facility] 03-29-2024 Instructions Sade Rodriguez RN - 03/29/2024 11:56 AM EST Post-Op Nail Instructions Minimize activity until the anesthesia wears off (about 2-8 hours). Increase activity to tolerance Remove bandage tomorrow Soak affected toe/foot in epsom salts for 15-20 minutes twice daily After soaking, apply antibiotic ointment (OTC Neosporin) to affected toe and re bandage OTC Ibuprofen if having pain, provided you have no allergies or intolerance to NSAIDS Mild drainage, redness, and blood is expected, but if you expeirence severe pain, increase in drainage, swelling, or red streaking please contact our office immediately Feel free to contact office as well if you have any questions/concerns [phone], ask for Podiatry Nurse documented in this encounter [facility] 03-29-2024 Note HNO ID: [id number] Author: DRU SAHU, ? Service: ? Author Type: Physician Type: Progress Notes Filed: 03/29/2024 14:01 Note Text: Chief Complaint: This 58 year old female who presents with chief complaint:cellulitis of right 1st and 2nd toe HPI Patient presents to clinic for evaluation of right foot Complains of redness and swelling of right 1st and 2nd toe States this started last week. Reports that there is swelling, redness and drainage. Also reports that the toenails are lifting. PAIN EVALUATION 03/29/2024 1131 Pain Level: 2 Pain Location: Toe Duration Amount of Time: 1 Duration Units: Weeks Frequency: Continuous Intervention/Comfort measure: Relaxation Hemoglobin A1C (%) Date Value 11/11/2023 5.4 04/03/2023 6.5 12/05/2022 7.4 05/21/2022 6.5 10/11/2021 6.1 12/04/2020 5.3 05/04/2020 5.5 02/24/2020 5.4 08/31/2019 6.0 09/24/2018 7.8 PCP: Santhosh Holden MD PAST MEDICAL HISTORY Diagnosis Date Anxiety Powers's esophagus Bipolar 1 disorder (HCC) Dr. Orozco, psychiatry Chronic headaches Coronary-myocardial bridge DDD (degenerative disc disease) Depression 01/05/2015 Essential tremor TK tremor Fibromyalgia GERD (gastroesophageal reflux disease) HTN (hypertension) Hyperlipidemia Hypothyroid Liver fibrosis Mild CAD 08/22/2019 Neuropathy Non-melanoma skin cancer 03/08/2021 Obstructive sleep apnea PTSD (post-traumatic stress disorder) PVD (peripheral vascular disease) (HCC) Sciatica Shoulder injury Type II or unspecified type diabetes mellitus without mention of complication, not stated as uncontrolled Current Outpatient Medications Medication Sig gabapentin (NEURONTIN) 300 mg capsule Take 1 capsule by mouth three times a day for 90 days. Fenofibrate (LOFIBRA) 54 mg tablet Take 1 tablet by mouth once daily carbidopa-levodopa (SINEMET) 25-100 mg per tablet Take 1 tablet by mouth three times a day. thyroid, pork, (ARMOUR THYROID) 60 mg tablet Take 1 tablet by mouth two times a day. ferrous sulfate 325 mg (65 mg iron) tablet Take 1 tablet by mouth two times a day with meals. prochlorperazine (COMPAZINE) 10 mg tablet Take 1 tablet by mouth two times a day as needed (migraine). metFORMIN ER (GLUCOPHAGE XR) 500 mg 24 hr tablet Take 3 tablets by mouth daily with breakfast. ondansetron (ZOFRAN) 4 mg tablet Take 1 tablet by mouth once daily as needed. pantoprazole DR (PROTONIX) 40 mg tablet Take 1 tablet by mouth two times a day. metoprolol succinate ER (TOPROL XL) 25 mg 24 hr tablet Take 1 tablet by mouth once daily. gabapentin (NEURONTIN) 600 mg tablet Take 1 tablet by mouth three times a day for 180 days. rosuvastatin (CRESTOR) 5 mg tablet Take 1 tablet by mouth daily at bedtime. Cetirizine (ZYRTEC) 10 mg cap Take 1 capsule by mouth once daily. blood sugar diagnostic (FREESTYLE LITE STRIPS) test strip Test blood sugar(s) once times daily. Dx: E11.40 Blood-Glucose Meter (FREESTYLE LITE METER) monitoring kit Freestyle LITE Meter Kit -Test blood sugars one time daily. DX E11.40 Lancets Test blood sugar(s) one time daily. Dx: Other DM Code E11.40 Insulin: No semaglutide (OZEMPIC) 0.25 mg or 0.5 mg (2 mg/3 mL) pen Inject 0.5 mg subcutaneously one time a week. lisinopril (ZESTRIL) 5 mg tablet Take 1 tablet by mouth once daily. lurasidone (LATUDA) 20 mg tablet take 1 tablet by mouth once daily with supper carboxymethylcellulose (REFRESH CELLUVISC) 1 % ophthalmic solution Use 1 Drop in both eyes daily at bedtime. lamoTRIgine (LAMICTAL) 200 mg tablet Take 1 tablet by mouth two times a day. nitroglycerin sublingual (NITROQUICK) 0.3 mg SL tablet Dissolve 1 tablet under the tongue every 5 minutes as needed. VYVANSE 20 mg capsule 40 mg. Aluminum Hydrox-Magnesium Carb (GAVISCON EXTRA STRENGTH) 254-237.5 mg/5 mL susp Take 15 mL by mouth at bedtime as needed. acetaminophen (TYLENOL EXTRA STRENGTH) 500 mg tablet Take 2 tablets by mouth every 8 hours as needed for Pain. COMPOUNDED PRESCRIPTION Initiate AutoPAP @ 10-20 cm of water with humidification mask (per patient preference) optional chin strap (if indicated) and lifetime supplies ([facility]) DX: KRZYSZTOF G47.33 multivit with minerals/lutein (MULTIVITAMIN 50 PLUS ORAL) Take 1 tablet by mouth once daily. COMPOUNDED PRESCRIPTION Diabetic shoes One pair CPAP CPAP with humidification. Mask (per patient preference) optional chin strap (if indicated) , filters, tubing, humidifier and lifetime supplies. clonazePAM (KLONOPIN) 1 mg tablet 1 mg three times daily. vortioxetine (TRINTELLIX) 20 mg tablet Take 1 tablet by mouth once daily. aspirin 81 mg chewable tablet Take 1 tablet by mouth once daily. CPAP Please provide supplies. Mask per preference, tubing, filters, humidity. Lifetime Supplies. Dx: G47.33 COMPOUNDED PRESCRIPTION Lightweight wheelchair DX: DDD, neuropathy Wheel Chair issac DX: debility COMPOUNDED PRESCRIPTION EX-LARG (more content not included)... [facility] 03-29-2024 Note HNO ID: [id number] Author: SADE RODRIGUEZ RN Service: ? Author Type: Registered Nurse Type: Progress Notes Filed: 03/29/2024 14:01 Note Text: AMB ROOMING INTAKE FLOWSHEET DATA Pain Pain Level: 2 Pain Location: Toe Duration Amount of Time: 1 Duration Units: Weeks Frequency: Continuous Intervention/Comfort measure: Relaxation Patient presents with: Right Foot - Established Patient, Infection, Pain Patient presents for wound to right 1st and 2nd toe. States that it started as a blood blister about a week ago. Toes are red and swollen. Small wound noted to 2nd toe, 1st toenail appears to be at the base. Patient is a diabetic with a history of neuropathy. ELVIN 11/19/22 [facility] 03-16-2024 Note Patient Outreach (IN [facility]) ---- INÉS SHANKS ([id number]) 1965 F FNS Date Time Provider Department 03/16/24 SANTHOSH HOLDEN During your visit today, we recorded the following information about you: Allergies As of Date: 03/16/2024 Noted Allergy Reaction CAT HAIR STANDARDIZED ALLERGENIC *12/20/2015 9 - Itching Comments: Eyes get really red, if cat is too close, can't breathe CATS 12/20/2015 9 - Itching Comments: Eyes get really red, if cat is too close, can't breathe CITRIC ACID 11/05/2016 5 - Intolerance MOLD SPORES 12/20/2015 14 - Other: See Comments Comments: Flu like symptoms ZOLPIDEM 10/29/2022 14 - Other: See Comments Date Reviewed: 01/08/2024 Reviewed by: Rebecca Britton MA - Fully Assessed Visit Diagnosis:Encounter for screening mammogram for breast cancer [Z12.31] Order(s):JESUS SCREENING Yennifer ALLEN [[id number]] Order #: [id number] FUTURE Prescriptions as of 03/21/2024 - gabapentin (NEURONTIN) 300 mg capsule Take 1 capsule by mouth three times a day for 90 days. - Fenofibrate (LOFIBRA) 54 mg tablet Take 1 tablet by mouth once daily - carbidopa-levodopa (SINEMET) 25-100 mg per tablet Take 1 tablet by mouth three times a day. - thyroid, pork, (ARMOUR THYROID) 60 mg tablet Take 1 tablet by mouth two times a day. - ferrous sulfate 325 mg (65 mg iron) tablet Take 1 tablet by mouth two times a day with meals. - prochlorperazine (COMPAZINE) 10 mg tablet Take 1 tablet by mouth two times a day as needed (migraine). - metFORMIN ER (GLUCOPHAGE XR) 500 mg 24 hr tablet Take 3 tablets by mouth daily with breakfast. - ondansetron (ZOFRAN) 4 mg tablet Take 1 tablet by mouth once daily as needed. - pantoprazole DR (PROTONIX) 40 mg tablet Take 1 tablet by mouth two times a day. - metoprolol succinate ER (TOPROL XL) 25 mg 24 hr tablet Take 1 tablet by mouth once daily. - gabapentin (NEURONTIN) 600 mg tablet Take 1 tablet by mouth three times a day for 180 days. - rosuvastatin (CRESTOR) 5 mg tablet Take 1 tablet by mouth daily at bedtime. - Cetirizine (ZYRTEC) 10 mg cap Take 1 capsule by mouth once daily. - blood sugar diagnostic (FREESTYLE LITE STRIPS) test strip Test blood sugar(s) once times daily. Dx: E11.40 - Blood-Glucose Meter (FREESTYLE LITE METER) monitoring kit Freestyle LITE Meter Kit -Test blood sugars one time daily. DX E11.40 - Lancets Test blood sugar(s) one time daily. Dx: Other DM Code E11.40 Insulin: No - semaglutide (OZEMPIC) 0.25 mg or 0.5 mg (2 mg/3 mL) pen Inject 0.5 mg subcutaneously one time a week. - lisinopril (ZESTRIL) 5 mg tablet Take 1 tablet by mouth once daily. - lurasidone (LATUDA) 20 mg tablet take 1 tablet by mouth once daily with supper - loratadine (CLARITIN) 10 mg tablet Take 10 mg by mouth once daily. - carboxymethylcellulose (REFRESH CELLUVISC) 1 % ophthalmic solution Use 1 Drop in both eyes daily at bedtime. - lamoTRIgine (LAMICTAL) 200 mg tablet Take 1 tablet by mouth two times a day. - nitroglycerin sublingual (NITROQUICK) 0.3 mg SL tablet Dissolve 1 tablet under the tongue every 5 minutes as needed. - PEG 400-propylene glycol (SYSTANE ULTRA) 0.4-0.3 % ophthalmic solution Use 1 Drop in both eyes twice daily. - VYVANSE 20 mg capsule 40 mg. - Aluminum Hydrox-Magnesium Carb (GAVISCON EXTRA STRENGTH) 254-237.5 mg/5 mL susp Take 15 mL by mouth at bedtime as needed. - acetaminophen (TYLENOL EXTRA STRENGTH) 500 mg tablet Take 2 tablets by mouth every 8 hours as needed for Pain. - COMPOUNDED PRESCRIPTION Initiate AutoPAP @ 10-20 cm of water with humidification mask (per patient preference) optional chin strap (if indicated) and lifetime supplies ([facility]) DX: KRZYSZTOF G47.33 - multivit with minerals/lutein (MULTIVITAMIN 50 PLUS ORAL) Take 1 tablet by mouth once daily. - COMPOUNDED PRESCRIPTION Diabetic shoes One pair - CPAP CPAP with humidification. Mask (per patient preference) optional chin strap (if indicated) , filters, tubing, humidifier and lifetime supplies. - clonazePAM (KLONOPIN) 1 mg tablet 1 mg three times daily. - vortioxetine (TRINTELLIX) 20 mg tablet Take 1 tablet by mouth once daily. - aspirin 81 mg chewable tablet Take 1 tablet by mouth once daily. - CPAP Please provide supplies. Mask per preference, tubing, filters, humidity. Lifetime Supplies. Dx: G47.33 - COMPOUNDED PRESCRIPTION Lightweight wheelchair DX: DDD, neuropathy - Wheel Chair issac DX: debility - COMPOUNDED PRESCRIPTION EX-LARGE BLOOD PRESSURE CUFF KIT DX I10 - Blood Pressure Test Kit-Large (QUICK RESPONSE BP MONITOR) kit 1 Kit once daily. - buPROPion HCl 200 mg 12 hr tablet Take 200 mg by mouth twice daily. Problem List As Of Date 03/16/2024 Noted Resolved HTN (hypertension) [I10] Diabetes mellitus (HCC) [E11.9] Neuropathy (HCC) [G62.9] Hypothyroid [E03.9] GERD (gastroesophageal reflux disease) [K21.9] (more content not included)... [facility] 02-19-2024 Telephone encounter Note Prescription Refill Information The patient has been identified by name and date of : Yes Caregiver verified no other encounters exist for this prescription request: Yes Caregiver confirmed with patient/requestor that no other refills are due, in the near future, with this provider at this time: Yes The last office visit in the department: 11/11/2023 Does the patient have a future office visit with this provider/department: Yes Requested Prescriptions Pending Prescriptions Disp Refills gabapentin (NEURONTIN) 300 mg capsule 270 capsule 0 Sig: Take 1 capsule by mouth three times a day for 90 days. Nanette Katz LPN February 19, 2024 7:29 AM [facility] 02-19-2024 Miscellaneous Notes Prescription Refill Information The patient has been identified by name and date of : Yes Caregiver verified no other encounters exist for this prescription request: Yes Caregiver confirmed with patient/requestor that no other refills are due, in the near future, with this provider at this time: Yes The last office visit in the department: 11/11/2023 Does the patient have a future office visit with this provider/department: Yes Requested Prescriptions Pending Prescriptions Disp Refills gabapentin (NEURONTIN) 300 mg capsule 270 capsule 0 Sig: Take 1 capsule by mouth three times a day for 90 days. Nanette Katz LPN February 19, 2024 7:29 AM documented in this encounter [facility] 02-17-2024 Telephone encounter Note ELVIN:05/08/2023 Teofilo NOV: None scheduled [facility] 02-17-2024 Miscellaneous Notes ELVIN:05/08/2023 Teofilo NOV: None scheduled documented in this encounter [facility] 01-29-2024 Telephone encounter Note Pharmacy requesting refills as follows via ERAR: ELVIN: 01/08/24 NOV: 06/22/24 Requested Prescriptions Pending Prescriptions Disp Refills carbidopa-levodopa (SINEMET) 25-100 mg per tablet 270 tablet 1 Sig: Take 1 tablet by mouth three times a day. Please review and advise. Rebecca Britton MA [facility] 01-29-2024 Miscellaneous Notes Pharmacy requesting refills as follows via ERAR: ELVIN: 01/08/24 NOV: 06/22/24 Requested Prescriptions Pending Prescriptions Disp Refills carbidopa-levodopa (SINEMET) 25-100 mg per tablet 270 tablet 1 Sig: Take 1 tablet by mouth three times a day. Please review and advise. Rebecca rBitton MA documented in this encounter [facility] 01-19-2024 Telephone encounter Note Prescription Refill Information The patient has been identified by name and date of : Yes Caregiver verified no other encounters exist for this prescription request: Yes Caregiver confirmed with patient/requestor that no other refills are due, in the near future, with this provider at this time: No The last office visit in the department: 11/11/23 Does the patient have a future office visit with this provider/department: Yes Requested Prescriptions Pending Prescriptions Disp Refills gabapentin (NEURONTIN) 300 mg capsule 90 capsule 0 Sig: Take 1 capsule by mouth three times a day for 90 days. Jacqueline Fontaine MA January 19, 2024 3:58 PM [facility] 01-19-2024 Miscellaneous Notes Prescription Refill Information The patient has been identified by name and date of : Yes Caregiver verified no other encounters exist for this prescription request: Yes Caregiver confirmed with patient/requestor that no other refills are due, in the near future, with this provider at this time: No The last office visit in the department: 11/11/23 Does the patient have a future office visit with this provider/department: Yes Requested Prescriptions Pending Prescriptions Disp Refills gabapentin (NEURONTIN) 300 mg capsule 90 capsule 0 Sig: Take 1 capsule by mouth three times a day for 90 days. Jacqueline Fontaine MA January 19, 2024 3:58 PM documented in this encounter [facility] 01-08-2024 Instructions Jovanna Prince MD - 01/08/2024 11:42 AM EDT I see signs of mixed tremor today - some from lurasidone, some from a history of trauma (psychological or functional tremor), and some from other factors. I wouldn't change your medication today but will write to your psychiatrist about things. documented in this encounter [facility] 01-08-2024 Note HNO ID: [id number] Author: JOVANNA PRINCE MD Service: ? Author Type: Physician Type: Progress Notes Filed: 02/06/2024 10:10 Note Text: FOLLOW UP NOTE Subjective Inés Orellana Workman is a 58 year old female who presents for follow up. CC: Tremor Summary of prior care: 07/2022 right-handed female with a history of PTSD, bipolar disorder, fibromyalgia, migraine, and tremor amongst other conditions who presents for evaluation of tremor. 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 Complicated presentation primarily due to the large amount of neuropsychiatrically active medications she is on. Wellbutrin, Austedo, and Vyvanse can all contribute to tremor. Suggested tapering off Austedo for now, consider other changes in the future. For migraine, will do medrol dose ryne + compazine bridge treatment. Afterwards can take compazine. Hesitant to add additional prescription medications due to polypharmacy. Will try migraine supplements B2 and Mg. 10/2022 retry levodopa 100 TID for mixed tremor. 06/2023 fine to continue levodopa, unclear how much is FT vs organic, low concern degenerative etiology to memory symptoms, start B2. HPI Current Issues - Tremor seems to be doing better than before but still present - In the hands / arms primarily, also head, right a little worse than left - Annoying, makes writing difficult - No side effects to levodopa - Migraines doing better than before - Gets around 3-4 migraines a month which are somewhat helpful, lays down and goes to sleep, wakes up feeling better with just mild headache - Taking B2 now - Her daughter is now managing her medications as patient had a suicide attempt with pill overdose - Psychiatrist is Dr. Spencer - Occasional auditory hallucinations Headache description: - Aura: Notes possibly seeing things hard to explain - Onset: More in the morning - Location: Typically one side or the other, uncommonly back of head - Pain: Pressure, sharp - A/w: (+)photophobia / (+)phonophobia / (+)nausea / (+/-)osmophobia / (-)autonomic sx - Positional?: n/a - Improves with: Sleep - Triggers: Certain smells - Family Hx: Mom Current preventive: Gabapentin for fibromyalgia / neuropathy, LTG for mood, metoprolol for heart, B2 Current abortive: Compazine PRN Previous preventives: Never been prescribed something specific for it, meds she has been on in the past include verapamil, metoprolol, propranolol. Previous abortives: n/a Current meds: - Wellbutrin 200 mg BID - Vyvanse 40 mg daily - Trintellix 20 mg daily - Lamotrigine 200 mg BID - Lurasidone 20 mg daily - Clonazepam 1 mg TID - Gabapentin 900 mg TID (FM, PN) - Metoprolol ER 25 mg daily - Cd/ld 25/100 TID Current Outpatient Medications Medication Sig Dispense Refill thyroid, pork, (ARMOUR THYROID) 60 mg tablet Take 1 tablet by mouth two times a day. 60 tablet 5 ferrous sulfate 325 mg (65 mg iron) tablet Take 1 tablet by mouth two times a day with meals. 180 tablet 1 gabapentin (NEURONTIN) 300 mg capsule Take 1 capsule by mouth three times a day for 90 days. 90 capsule 0 prochlorperazine (COMPAZINE) 10 mg tablet Take 1 tablet by mouth two times a day as needed (migraine). 20 tablet 1 metFORMIN ER (GLUCOPHAGE XR) 500 mg 24 hr tablet Take 3 tablets by mouth daily with breakfast. 270 tablet 1 ondansetron (ZOFRAN) 4 mg tablet Take 1 tablet by mouth once daily as needed. [address] (PROTONIX) 40 mg tablet Take 1 tablet by mouth two times a day. 180 tablet 1 metoprolol succinate ER (TOPROL XL) 25 mg 24 hr tablet Take 1 tablet by mouth once daily. 30 tablet 5 gabapentin (NEURONTIN) 600 mg tablet Take 1 tablet by mouth three times a day for 180 days. 270 tablet 1 rosuvastatin (CRESTOR) 5 mg tablet Take 1 tablet by mouth daily at bedtime. 90 tablet 1 Cetirizine (ZYRTEC) 10 mg cap Take 1 capsule by mouth once daily. 90 capsule 3 blood sugar diagnostic (FREESTYLE LITE STRIPS) test strip Test blood sugar(s) once times daily. Dx: E11.40 25 Strip 3 Blood-Glucose Meter (FREESTYLE LITE METER) monitoring kit Freestyle LITE Meter Kit -Test blood sugars one time daily. DX E11.40 1 Each 0 Lancets Test blood sugar(s) one time daily. Dx: Other DM Code E11.40 Insulin: No 100 Each 11 semaglutide (OZEMPIC) 0.25 mg or 0.5 mg (2 mg/3 mL) pen Inject 0.5 mg subcutaneously one time a week. 3 mL 11 lisinopril (ZESTRIL) 5 mg tablet Take 1 tablet by mouth once daily. 90 tablet 3 carbidopa-levodopa (SINEMET) 25-100 mg per tablet Take 1 tablet by mouth three times a day. 270 tablet 1 lurasidone (LATUDA) 20 mg tablet take 1 tablet by mouth once daily with supper loratadine (CLARITIN) 10 mg tablet Take 10 mg by mouth once daily. carboxymethylcellulose (REFRESH CELLUVISC) 1 % ophthalmic solution Use 1 Drop in both eyes daily at bedtime. 6 Each 5 lamoTRIgine (LAMICTAL) 200 mg tablet Take 1 tablet by mouth two times a (more content not included)... [facility] 01-08-2024 History of Present illness Narrative FOLLOW UP NOTE Subjective Inés Orellana Workman is a 58 year old female who presents for follow up. CC: Tremor Summary of prior care: 07/2022 right-handed female with a history of PTSD, bipolar disorder, fibromyalgia, migraine, and tremor amongst other conditions who presents for evaluation of tremor. 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 Complicated presentation primarily due to the large amount of neuropsychiatrically active medications she is on. Wellbutrin, Austedo, and Vyvanse can all contribute to tremor. Suggested tapering off Austedo for now, consider other changes in the future. For migraine, will do medrol dose ryne + compazine bridge treatment. Afterwards can take compazine. Hesitant to add additional prescription medications due to polypharmacy. Will try migraine supplements B2 and Mg. 10/2022 retry levodopa 100 TID for mixed tremor. 06/2023 fine to continue levodopa, unclear how much is FT vs organic, low concern degenerative etiology to memory symptoms, start B2. HPI Current Issues - Tremor seems to be doing better than before but still present - In the hands / arms primarily, also head, right a little worse than left - Annoying, makes writing difficult - No side effects to levodopa - Migraines doing better than before - Gets around 3-4 migraines a month which are somewhat helpful, lays down and goes to sleep, wakes up feeling better with just mild headache - Taking B2 now - Her daughter is now managing her medications as patient had a suicide attempt with pill overdose - Psychiatrist is Dr. Spencer - Occasional auditory hallucinations Headache description: - Aura: Notes possibly seeing things hard to explain - Onset: More in the morning - Location: Typically one side or the other, uncommonly back of head - Pain: Pressure, sharp - A/w: (+)photophobia / (+)phonophobia / (+)nausea / (+/-)osmophobia / (-)autonomic sx - Positional?: n/a - Improves with: Sleep - Triggers: Certain smells - Family Hx: Mom Current preventive: Gabapentin for fibromyalgia / neuropathy, LTG for mood, metoprolol for heart, B2 Current abortive: Compazine PRN Previous preventives: Never been prescribed something specific for it, meds she has been on in the past include verapamil, metoprolol, propranolol. Previous abortives: n/a Current meds: - Wellbutrin 200 mg BID - Vyvanse 40 mg daily - Trintellix 20 mg daily - Lamotrigine 200 mg BID - Lurasidone 20 mg daily - Clonazepam 1 mg TID - Gabapentin 900 mg TID (FM, PN) - Metoprolol ER 25 mg daily - Cd/ld 25/100 TID Current Outpatient Medications Medication Sig Dispense Refill thyroid, pork, (ARMOUR THYROID) 60 mg tablet Take 1 tablet by mouth two times a day. 60 tablet 5 ferrous sulfate 325 mg (65 mg iron) tablet Take 1 tablet by mouth two times a day with meals. 180 tablet 1 gabapentin (NEURONTIN) 300 mg capsule Take 1 capsule by mouth three times a day for 90 days. 90 capsule 0 prochlorperazine (COMPAZINE) 10 mg tablet Take 1 tablet by mouth two times a day as needed (migraine). 20 tablet 1 metFORMIN ER (GLUCOPHAGE XR) 500 mg 24 hr tablet Take 3 tablets by mouth daily with breakfast. 270 tablet 1 ondansetron (ZOFRAN) 4 mg tablet Take 1 tablet by mouth once daily as needed. [address] (PROTONIX) 40 mg tablet Take 1 tablet by mouth two times a day. 180 tablet 1 metoprolol succinate ER (TOPROL XL) 25 mg 24 hr tablet Take 1 tablet by mouth once daily. 30 tablet 5 gabapentin (NEURONTIN) 600 mg tablet Take 1 tablet by mouth three times a day for 180 days. 270 tablet 1 rosuvastatin (CRESTOR) 5 mg tablet Take 1 tablet by mouth daily at bedtime. 90 tablet 1 Cetirizine (ZYRTEC) 10 mg cap Take 1 capsule by mouth once daily. 90 capsule 3 blood sugar diagnostic (FREESTYLE LITE STRIPS) test strip Test blood sugar(s) once times daily. Dx: E11.40 25 Strip 3 Blood-Glucose Meter (FREESTYLE LITE METER) monitoring kit Freestyle LITE Meter Kit -Test blood sugars one time daily. DX E11.40 1 Each 0 Lancets Test blood sugar(s) one time daily. Dx: Other DM Code E11.40 Insulin: No 100 Each 11 semaglutide (OZEMPIC) 0.25 mg or 0.5 mg (2 mg/3 mL) pen Inject 0.5 mg subcutaneously one time a week. 3 mL 11 lisinopril (ZESTRIL) 5 mg tablet Take 1 tablet by mouth once daily. 90 tablet 3 carbidopa-levodopa (SINEMET) 25-100 mg per tablet Take 1 tablet by mouth three times a day. 270 tablet 1 lurasidone (LATUDA) 20 mg tablet take 1 tablet by mouth once daily with supper loratadine (CLARITIN) 10 mg tablet Take 10 mg by mouth once daily. carboxymethylcellulose (REFRESH CELLUVISC) 1 % ophthalmic solution Use 1 Drop in both eyes daily at bedtime. 6 Each 5 lamoTRIgine (LAMICTAL) 200 mg tablet Take 1 tablet by mouth two times a day. 60 tablet 5 nitroglycerin sublingual (NITROQUICK) 0.3 mg SL tablet Dissolve 1 tablet under the tongue every 5 minutes as needed. 25 tablet 3 Fenofibrate (LOFIBRA) 54 mg tablet Take 1 tablet by mouth once daily. 30 tablet 11 VYVANSE 20 mg capsule 40 mg. Aluminum Hydrox-Magnesium Carb (GAVISCON EXTRA STRENGTH) 254-237.5 mg/5 mL susp Take 15 mL by mouth at bedtime as needed. 335 mL 3 acetaminophen (TYLENOL EXTRA STRENGTH) 500 mg tablet Take 2 tablets by mouth every 8 hours as needed for Pain. 40 tablet 0 COMPOUNDED PRESCRIPTION Initiate AutoPAP @ 10-20 cm of water with humidification mask (per patient preference) optional chin strap (if indicated) and lifetime supplies ([facility]) DX: KRZYSZTOF G47.33 1 Device 0 multivit with minerals/lutein (MULTIVITAMIN 50 PLUS ORAL) Take 1 tablet by mouth once daily. COMPOUNDED PRESCRIPTION Diabetic shoes One pair 1 Each 0 CPAP CPAP with humidification. Mask (per patient preference) optional chin strap (if indicated) , filters, tubing, humidifier and lifetime supplies. 1 Device 0 clonazePAM (KLONOPIN) 1 mg tablet 1 mg three times daily. vortioxetine (TRINTELLIX) 20 mg tablet Take 1 tablet by mouth once daily. aspirin 81 mg chewable tablet Take 1 tablet by mouth once daily. 0 CPAP Please provide supplies. Mask per preference, tubing, filters, humidity. Lifetime Supplies. Dx: G47.33 1 Device 0 COMPOUNDED PRESCRIPTION Lightweight wheelchair DX: DDD, neuropathy 1 Each 0 Wheel Chair issac DX: debility 1 Device 0 COMPOUNDED PRESCRIPTION EX-LARGE BLOOD PRESSURE CUFF KIT DX I10 1 Kit 0 Blood Pressure Test Kit-Large (QUICK RESPONSE BP MONITOR) kit 1 Kit once daily. 1 Kit 0 buPROPion HCl 200 mg 12 hr tablet Take 200 mg by mouth twice daily. PEG 400-propylene glycol (SYSTANE ULTRA) 0.4-0.3 % ophthalmic solution Use 1 Drop in both eyes twice daily. 10 mL 3 No current facility-administered medications for this visit. REVIEW OF SYSTEMS Her ROS was positive for that mentioned in the HPI. Otherwise a 10-point ROS was completed and was negative. Objective OBJECTIVE 01/08/24 1110 BP: 122/77 BP Site: Right Arm BP Position: Sitting BP Cuff Size: Regular Adult Pulse: 74 Weight: 92 kg (202 lb 13.2 oz) Height: 170.2 cm (5' 7) General: General Appearance: Well appearing, alert, in no acute distress, well-hydrated, well nourished. Head: Normocephalic Neck: Supple Heart: RRR Neurologic Exam: Mental Status: She is alert. Attention partially impaired. Orientation partially impaired. Recall of her history is so-so, not familiar with her medications. She is fully oriented. Attention is intact. Memory is intact. Language shows normal comprehension and fluency. Affect is appropriate. Cranial Nerves: Extraocular movements show full and smooth pursuits. No nystagmus. Visual sanchez are full to confrontation. Facial activation is symmetric. Hearing is intact to conversation. There is no hypomimia. There is no hypophonia. There is no dysarthria. Tongue is midline. Palate elevates symmetrically. Shoulder shrug is normal. Motor: Muscle bulk is normal. Muscle power is full. No bradykinesia or rigidity. Mod-severe Y-Y head tremor. Moderate right hand rest that resolves with crossed tapping. Bilateral leg rest tremor at times overlaps with stereotypy / akithisia, does feel restless. Handwriting with tremor, spirals somewhat irregular tremor worse in right hand, doesn't trasnmit looking like organic tremor but has somewhat of an organic look when observed. Sensory: Intact to fine touch Coordination: Finger to nose is smooth without ataxia. Gait/station: Uses walker for ambulation, no tremor during gait DATA REVIEW Actual films/image/tracing reviewed and summarized as follows: n/a Old records reviewed and summarized as follows: TSH 0.372, B12 1338, folate 7.2, B1 131, A1c 6.5 MRI Brain 07/09/20 atrophy out of proportion to age Reviewed prior records from Donna Cagle / Dr. Mary / Dr. Ascencio / Jacqueline Johnson Assessment/Plan ASSESSMENT & PLAN: Inés Orellana Workman is a 58 year old right-handed female with a history of PTSD, bipolar disorder, fibromyalgia, migraine, and tremor amongst other conditions who presents for evaluation of tremor. Her examination demonstrates mixed tremor. 1. Tremor - Continues to be mixed in appearance with some functional signs, ET signs, and some more parkinsonian elements which could be from lurasidone - If able to lower tremor causing medications (lurasidone, Wellbutrin, high dose lamotrigine) may find some tremor improvement, will forward office note to psychiatrist - Can continue lower dose levodopa, reluctant to suggest increasing with potential for side effects (hallucinations) 2. Migraine - B2 helping, continue Follow-up: 6 months Risks & Side Effects of Newly Prescribed Medication, Discussed with Patient: n/a Jovanna Prince MD [facility] Neurology documented in this encounter [facility] 01-06-2024 Telephone encounter Note Prescription Refill Information The patient has been identified by name and date of : Yes Caregiver verified no other encounters exist for this prescription request: Yes Caregiver confirmed with patient/requestor that no other refills are due, in the near future, with this provider at this time: Yes The last office visit in the department: 11/11/23 Does the patient have a future office visit with this provider/department: Yes, 05/13/24 Requested Prescriptions Pending Prescriptions Disp Refills thyroid, pork, (ARMOUR THYROID) 60 mg tablet 60 tablet 5 Sig: Take 1 tablet by mouth two times a day. Mayco Valladares LPN January 06, 2024 8:30 AM [facility] 01-06-2024 Miscellaneous Notes Prescription Refill Information The patient has been identified by name and date of : Yes Caregiver verified no other encounters exist for this prescription request: Yes Caregiver confirmed with patient/requestor that no other refills are due, in the near future, with this provider at this time: Yes The last office visit in the department: 11/11/23 Does the patient have a future office visit with this provider/department: Yes, 05/13/24 Requested Prescriptions Pending Prescriptions Disp Refills thyroid, pork, (ARMOUR THYROID) 60 mg tablet 60 tablet 5 Sig: Take 1 tablet by mouth two times a day. Mayco Valladares LPN January 06, 2024 8:30 AM documented in this encounter [facility] 12-25-2023 Note HNO ID: [id number] Author: DRU COLLADO MD Service: ? Author Type: Physician Type: Progress Notes Filed: 12/25/2023 11:07 Note Text: HPI Inés Orellana Workman is a 58 year old female who presents with hearing loss. Patient has noted gradual hearing loss in both ears. Patient is seen in consultation for Dr. Holden patient is having moderate communication issues. Worse with background noise. ROS General Weight loss: No Fatigue: No Night sweats:No Cardiac Chest pain:No Fast heart rate:No Swelling in the feet:No Respiratory Short of breath:No Cough:No Wheezing:No Gastrointestinal Nausea:No Vomiting:No Indigestion:No Past medical history, family history, and social history reviewed. PE LMP 11/20/2014 (Approximate) General: Patient is awake, alert, NAD. Voice is normal. Skin: normal Eyes: Extraocular motion and Gaze is normal. Ears: Right external auditory canal is normal. TMJ: normal. Right tympanic membranes normal. Left external auditory canal is normal. Left tympanic membrane normal. Nose: Septum is normal. Turbinates are normal. Nasopharynx:normal Oral Cavity/Oropharynx: Lips normal Dentition normal Tongue normal. Tonsils normal. Palate and uvula normal. Pharynx posterior normal Hypopharynx: Base of tongue normal Pyriform sinus normal. Larynx: Vocal cords normal. Epiglottis normal. Post cricoid normal. Salivary glands: Parotid normal. Submandibular and sublingual normal. Thyroid: normal. Lymphatic/Neck: Lymph nodes normal. Neurologic: Facial nerve normal. Audiogram reviewed ASSESSMENT/PLAN: 1. Sensorineural hearing loss (SNHL) of both ears - ICD9: 389.18, ICD10: H90.3 Recommend hearing aid evaluation Dru Collado MD Findings will be communicated to the referring physician via mail or electronic medical record. [facility] 12-25-2023 History of Present illness Narrative ARANZA Orellana Workman is a 58 year old female who presents with hearing loss. Patient has noted gradual hearing loss in both ears. Patient is seen in consultation for Dr. Holden patient is having moderate communication issues. Worse with background noise. ROS General Weight loss: No Fatigue: No Night sweats:No Cardiac Chest pain:No Fast heart rate:No Swelling in the feet:No Respiratory Short of breath:No Cough:No Wheezing:No Gastrointestinal Nausea:No Vomiting:No Indigestion:No Past medical history, family history, and social history reviewed. PE LMP 11/20/2014 (Approximate) General: Patient is awake, alert, NAD. Voice is normal. Skin: normal Eyes: Extraocular motion and Gaze is normal. Ears: Right external auditory canal is normal. TMJ: normal. Right tympanic membranes normal. Left external auditory canal is normal. Left tympanic membrane normal. Nose: Septum is normal. Turbinates are normal. Nasopharynx:normal Oral Cavity/Oropharynx: Lips normal Dentition normal Tongue normal. Tonsils normal. Palate and uvula normal. Pharynx posterior normal Hypopharynx: Base of tongue normal Pyriform sinus normal. Larynx: Vocal cords normal. Epiglottis normal. Post cricoid normal. Salivary glands: Parotid normal. Submandibular and sublingual normal. Thyroid: normal. Lymphatic/Neck: Lymph nodes normal. Neurologic: Facial nerve normal. Audiogram reviewed ASSESSMENT/PLAN: 1. Sensorineural hearing loss (SNHL) of both ears - ICD9: 389.18, ICD10: H90.3 Recommend hearing aid evaluation Dru Collado MD Findings will be communicated to the referring physician via mail or electronic medical record. documented in this encounter [facility] 12-25-2023 Instructions Jose Mir AUD - 12/25/2023 9:46 AM EDT Images from the original note were not included. [facility] [place] Section of Audiology Thank you for trusting the [facility] Audiology department with your hearing healthcare today. We appreciated the opportunity to meet with you today to assess your hearing status and needs. For you to be able to hear, the brain requires sound to travel through the entire auditory system which involves the outer ear, middle ear, inner ear, and auditory nerve. Symptoms of hearing loss, tinnitus, dizziness, or sensations in the ear may have many different causes. These symptoms may be due to problems associated with your ear, vision, brain, heart, medications, other health conditions, or history of exposure to loud noises. Today you completed a comprehensive evaluation of your auditory system. TEST SUMMARY: Based on today's evaluation, your results revealed sensorineural hearing loss in both ears. No previous results available. Sensorineural Hearing Loss: Hearing loss means we had to turn the sound up, outside the range of normal, in order for you to be able to hear it. This type of hearing loss affects the inner ear (cochlea) or auditory nerve. Loud noises, diseases or the aging process often cause it. Children are prone to this type due to congenital conditions (present at ), trauma during childbirth, head injuries or infections. Sensorineural hearing loss is often permanent. Hearing aids and hearing assistive devices can help. Listed below are some communication strategies that help you hear others: 1) Facing communication partner. 2) Removing physical or visual barriers. 3) Maintaining a maximum distance for 6-10 feet from communication partner. 4) Encouraging communication partners to use clear speech and get their attention before speaking. 5) Reducing or removing background noise sources. 6) Taking turns speaking in conversation. 7) Ensuring the listener and speaker's voice are level with each other (both seated or both standing). Recommendations: * * Continue medical follow-up with Dru Collado MD. * The patient was counseled regarding the need to continue to monitor hearing and have regular hearing assessments. * The patient was counseled regarding effective communication strategies to enhance communication ability. * Provided patient with list of sites that provide hearing aids for individuals who have Medicaid. Thank you for trusting and choosing [facility] Audiology with your hearing care needs. Please do not hesitate to reach out with any questions or concerns. Sincerely, .ta2 documented in this encounter [facility] 12-25-2023 Note HNO ID: [id number] Author: JOSE MIR AUD Service: ? Author Type: [employer] Type: Progress Notes Filed: 12/25/2023 10:21 Note Text: [facility] [place] AUDIOLOGIC EVALUATION REPORT Name: Inés Shanks [facility]#: [id number] Date of Service: 12/25/2023 Date of : 1965 Age: [age] year old Referred by: Dru Collado MD Referred for: Evaluation of suspected change in hearing, tinnitus, or balance. Referral documented: In an order in [facility] Patient's major complaints: Hearing loss: asking for repetition a lot. Feels like she's missing 50% of what is said. Speech on the phone is not clear. When in a group just sounds like a bunch of bees in her ears This has been gradually happening. Feels like she has more difficulty hearing from her right ear more than the left. Lean in with right ear to listen. Tinnitus: ringing, AU Ear pain: denied Aural fullness: denied Otorrhea: denied History of ear infections: OM as a child - no tubes or surgery History of otologic surgeries: denied Dizziness: intermittent-episodic off balance feeling. Lightheaded if she gets up quickly. When light headed gets dizzy like the room is moving. 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 Other concerns: Hearing tested in her 20s and was WNL at that time. Has a lot of headaches-takes migraine medication Inés A Workman was seen for an initial audiologic evaluation. See SmartForm Audiogram for additional reported history and symptoms. Risk of Falls Documentation for over 65 years old: Does not apply IMPRESSIONS RIGHT EAR: Sensorineural hearing loss LEFT EAR: Sensorineural hearing loss AUDIOLOGIC EVALUATION Following is a brief interpretation of the obtained findings from the audiologic evaluation. Refer to the Auditory Test Record for complete audiometric results. The patient was counseled about the test findings and appropriate audiologic recommendations were made. SUMMARY: Audiogram can be viewed under Forms/Audiology/SmartForm. OTOSCOPY RIGHT EAR: Otoscopic inspection revealed ear canal was clear with an identifiable cone of light. LEFT EAR: Otoscopic inspection revealed ear canal was clear with an identifiable cone of light. TYMPANOMETRY Description of procedure: This test is an objective evaluation of middle ear function. CPT code: 88546 RIGHT EAR: Did not test. LEFT EAR: Did not test. ACOUSTIC REFLEXES Description of procedure: This test is an objective measure of auditory and facial nerve pathways. CPT code: 96597, 26281 RIGHT EAR PROBE EAR: (ipsi right stimulus ear; contralateral left stimulus ear): Acoustic Reflex Pattern Did not test Acoustic Reflex Decay (left stimulus ear): Did not test. LEFT EAR PROBE EAR: (ipsi left stimulus ear; contralateral right stimulus ear): Acoustic Reflex Pattern Did not test Acoustic Reflex Decay (right stimulus ear):Did not test. PURE TONE AUDIOMETRY AND SPEECH TESTING Description of procedure: This test is an objective evaluation hearing sensitivity via air and bone conduction and speech recognition testing. CPT code:11956 RIGHT EAR: Hearing Sensitivity: Mild SNHL Word Recognition Score: Excellent (90-100%). WRS is consistent with hearing sensitivity. Words were presented at 65 dB HL is above (greater than or equal to 60 dB HL) intensity level for average conversational speech. The NU-6 Ordered by Difficulty Word List (10 words) was used for testing. LEFT EAR: Hearing Sensitivity: Mild sloping to moderate SNHL Word Recognition Score: Excellent (90-100%). WRS is consistent with hearing sensitivity. Words were presented at 65 dB HL which is above (greater than or equal to 60 dB HL) intensity level for average conversational speech. The NU-6 Ordered by Difficulty Word List (10 words) was used for testing. RECOMMENDATIONS * Continue medical follow-up with Dru Collado MD. * The patient was counseled regarding the need to continue to monitor hearing and have regular hearing assessments. * The patient was counseled regarding effective communication strategies to enhance communication ability. * Provided patient with list of sites that provide hearing aids for individuals who have Medicaid. Corby Maurice, [facility] [employer] copied to: Dru Collado MD ROJO Abbrev- iation Definition Degree of hearing sensitivity dB range WNL within normal limits WNL 0 - 20 SNHL sensorineural hearing loss Mild 20-40 CHL conductive hearing loss Moderate 40-55 MHL mixed hearing loss Moderately-Severe 55-70 WRS word recognition score Severe 70-90 ME middle ear Profound 90 + TM tympanic membrane [facility] 12-25-2023 History of Present illness Narrative [facility] [place] AUDIOLOGIC EVALUATION REPORT Name: Inés Shanks [facility]#: [id number] Date of Service: 12/25/2023 Date of : 1965 Age: [age] year old Referred by: Dru Collado MD Referred for: Evaluation of suspected change in hearing, tinnitus, or balance. Referral documented: In an order in [facility] Patient's major complaints: Hearing loss: asking for repetition a lot. Feels like she's missing 50% of what is said. Speech on the phone is not clear. When in a group just sounds like a bunch of bees in her ears This has been gradually happening. Feels like she has more difficulty hearing from her right ear more than the left. Lean in with right ear to listen. Tinnitus: ringing, AU Ear pain: denied Aural fullness: denied Otorrhea: denied History of ear infections: OM as a child - no tubes or surgery History of otologic surgeries: denied Dizziness: intermittent-episodic off balance feeling. Lightheaded if she gets up quickly. When light headed gets dizzy like the room is moving. 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 Other concerns: Hearing tested in her 20s and was WNL at that time. Has a lot of headaches-takes migraine medication Inés A Workman was seen for an initial audiologic evaluation. See SmartForm Audiogram for additional reported history and symptoms. Risk of Falls Documentation for over 65 years old: Does not apply IMPRESSIONS RIGHT EAR: Sensorineural hearing loss LEFT EAR: Sensorineural hearing loss AUDIOLOGIC EVALUATION Following is a brief interpretation of the obtained findings from the audiologic evaluation. Refer to the Auditory Test Record for complete audiometric results. The patient was counseled about the test findings and appropriate audiologic recommendations were made. SUMMARY: Audiogram can be viewed under Forms/Audiology/SmartForm. OTOSCOPY RIGHT EAR: Otoscopic inspection revealed ear canal was clear with an identifiable cone of light. LEFT EAR: Otoscopic inspection revealed ear canal was clear with an identifiable cone of light. TYMPANOMETRY Description of procedure: This test is an objective evaluation of middle ear function. CPT code: 46861 RIGHT EAR: Did not test. LEFT EAR: Did not test. ACOUSTIC REFLEXES Description of procedure: This test is an objective measure of auditory and facial nerve pathways. CPT code: 44085, 92319 RIGHT EAR PROBE EAR: (ipsi right stimulus ear; contralateral left stimulus ear): Acoustic Reflex Pattern Did not test Acoustic Reflex Decay (left stimulus ear): Did not test. LEFT EAR PROBE EAR: (ipsi left stimulus ear; contralateral right stimulus ear): Acoustic Reflex Pattern Did not test Acoustic Reflex Decay (right stimulus ear):Did not test. PURE TONE AUDIOMETRY AND SPEECH TESTING Description of procedure: This test is an objective evaluation hearing sensitivity via air and bone conduction and speech recognition testing. CPT code:51341 RIGHT EAR: Hearing Sensitivity: Mild SNHL Word Recognition Score: Excellent (90-100%). WRS is consistent with hearing sensitivity. Words were presented at 65 dB HL is above (greater than or equal to 60 dB HL) intensity level for average conversational speech. The NU-6 Ordered by Difficulty Word List (10 words) was used for testing. LEFT EAR: Hearing Sensitivity: Mild sloping to moderate SNHL Word Recognition Score: Excellent (90-100%). WRS is consistent with hearing sensitivity. Words were presented at 65 dB HL which is above (greater than or equal to 60 dB HL) intensity level for average conversational speech. The NU-6 Ordered by Difficulty Word List (10 words) was used for testing. RECOMMENDATIONS * Continue medical follow-up with Dru Collado MD. * The patient was counseled regarding the need to continue to monitor hearing and have regular hearing assessments. * The patient was counseled regarding effective communication strategies to enhance communication ability. * Provided patient with list of sites that provide hearing aids for individuals who have Medicaid. Corby Maurice, [facility] [employer] copied to: Dru Collado MD ROJO Abbrev- iation Definition Degree of hearing sensitivity dB range WNL within normal limits WNL 0 - 20 SNHL sensorineural hearing loss Mild 20-40 CHL conductive hearing loss Moderate 40-55 MHL mixed hearing loss Moderately-Severe 55-70 WRS word recognition score Severe 70-90 ME middle ear Profound 90 + TM tympanic membrane documented in this encounter [facility] 12-18-2023 Telephone encounter Note Prescription Refill Information The patient has been identified by name and date of : Yes Caregiver verified no other encounters exist for this prescription request: Yes Caregiver confirmed with patient/requestor that no other refills are due, in the near future, with this provider at this time: Yes The last office visit in the department: 11/11/23 Does the patient have a future office visit with this provider/department: Yes, 05/13/24 Requested Prescriptions Pending Prescriptions Disp Refills gabapentin (NEURONTIN) 300 mg capsule 90 capsule 0 Sig: Take 1 capsule by mouth three times a day for 90 days. Mayco Valladares LPN December 18, 2023 4:30 PM [facility] 12-18-2023 Miscellaneous Notes Prescription Refill Information The patient has been identified by name and date of : Yes Caregiver verified no other encounters exist for this prescription request: Yes Caregiver confirmed with patient/requestor that no other refills are due, in the near future, with this provider at this time: Yes The last office visit in the department: 11/11/23 Does the patient have a future office visit with this provider/department: Yes, 05/13/24 Requested Prescriptions Pending Prescriptions Disp Refills gabapentin (NEURONTIN) 300 mg capsule 90 capsule 0 Sig: Take 1 capsule by mouth three times a day for 90 days. Mayco Valladares LPN December 18, 2023 4:30 PM documented in this encounter [facility] 12-18-2023 Telephone encounter Note Prescription Refill Information The patient has been identified by name and date of : Yes Caregiver verified no other encounters exist for this prescription request: Yes Caregiver confirmed with patient/requestor that no other refills are due, in the near future, with this provider at this time: Yes The last office visit in the department: 11/11/23 Does the patient have a future office visit with this provider/department: Yes, 05/13/24 Requested Prescriptions Pending Prescriptions Disp Refills ferrous sulfate 325 mg (65 mg iron) tablet 180 tablet 1 Sig: Take 1 tablet by mouth two times a day with meals. Mayco Valladares LPN December 18, 2023 4:29 PM [facility] 12-18-2023 Miscellaneous Notes Prescription Refill Information The patient has been identified by name and date of : Yes Caregiver verified no other encounters exist for this prescription request: Yes Caregiver confirmed with patient/requestor that no other refills are due, in the near future, with this provider at this time: Yes The last office visit in the department: 11/11/23 Does the patient have a future office visit with this provider/department: Yes, 05/13/24 Requested Prescriptions Pending Prescriptions Disp Refills ferrous sulfate 325 mg (65 mg iron) tablet 180 tablet 1 Sig: Take 1 tablet by mouth two times a day with meals. Mayco Valladares LPN December 18, 2023 4:29 PM documented in this encounter [facility] 12-01-2023 Telephone encounter Note Last office visit 07/03/23, 6 month follow up scheduled for 01/08/24. Please advise. Requested Prescriptions Pending Prescriptions Disp Refills prochlorperazine (COMPAZINE) 10 mg tablet 20 tablet 1 Sig: Take 1 tablet by mouth two times a day as needed (migraine). [facility] 12-01-2023 Miscellaneous Notes Last office visit 07/03/23, 6 month follow up scheduled for 01/08/24. Please advise. Requested Prescriptions Pending Prescriptions Disp Refills prochlorperazine (COMPAZINE) 10 mg tablet 20 tablet 1 Sig: Take 1 tablet by mouth two times a day as needed (migraine). documented in this encounter [facility] 11-20-2023 Telephone encounter Note Prescription Refill Information The patient has been identified by name and date of : Yes Caregiver verified no other encounters exist for this prescription request: Yes Caregiver confirmed with patient/requestor that no other refills are due, in the near future, with this provider at this time: Yes The last office visit in the department: 11/11/23 Does the patient have a future office visit with this provider/department: Yes, 05/13/24 Requested Prescriptions Pending Prescriptions Disp Refills gabapentin (NEURONTIN) 300 mg capsule 90 capsule 0 Sig: Take 1 capsule by mouth three times a day for 90 days. *Last rx written 11/10/23 #90 with 0 refill. Pt is not due for refill until next month. MC message to pt advising of the same. Mayco Valladares LPN November 20, 2023 3:31 PM [facility] 11-20-2023 Miscellaneous Notes Prescription Refill Information The patient has been identified by name and date of : Yes Caregiver verified no other encounters exist for this prescription request: Yes Caregiver confirmed with patient/requestor that no other refills are due, in the near future, with this provider at this time: Yes The last office visit in the department: 11/11/23 Does the patient have a future office visit with this provider/department: Yes, 05/13/24 Requested Prescriptions Pending Prescriptions Disp Refills gabapentin (NEURONTIN) 300 mg capsule 90 capsule 0 Sig: Take 1 capsule by mouth three times a day for 90 days. *Last rx written 11/10/23 #90 with 0 refill. Pt is not due for refill until next month. MC message to pt advising of the same. Mayco Valladares LPN November 20, 2023 3:31 PM documented in this encounter [facility] 11-16-2023 Telephone encounter Note Prescription Refill Information The patient has been identified by name and date of : Yes Caregiver verified no other encounters exist for this prescription request: Yes Caregiver confirmed with patient/requestor that no other refills are due, in the near future, with this provider at this time: Yes The last office visit in the department: 11/11/2023 Does the patient have a future office visit with this provider/department: Yes Requested Prescriptions Pending Prescriptions Disp Refills metFORMIN ER (GLUCOPHAGE XR) 500 mg 24 hr tablet 270 tablet 1 Sig: Take 3 tablets by mouth daily with breakfast. Nanette Katz LPN November 16, 2023 3:01 PM [facility] 11-16-2023 Miscellaneous Notes Prescription Refill Information The patient has been identified by name and date of : Yes Caregiver verified no other encounters exist for this prescription request: Yes Caregiver confirmed with patient/requestor that no other refills are due, in the near future, with this provider at this time: Yes The last office visit in the department: 11/11/2023 Does the patient have a future office visit with this provider/department: Yes Requested Prescriptions Pending Prescriptions Disp Refills metFORMIN ER (GLUCOPHAGE XR) 500 mg 24 hr tablet 270 tablet 1 Sig: Take 3 tablets by mouth daily with breakfast. Nanette Katz LPN November 16, 2023 3:01 PM documented in this encounter [facility] 11-11-2023 Telephone encounter Note Prescription Refill Information The patient has been identified by name and date of : Yes Caregiver verified no other encounters exist for this prescription request: Yes Caregiver confirmed with patient/requestor that no other refills are due, in the near future, with this provider at this time: Yes The last office visit in the department: 11/11/23 Does the patient have a future office visit with this provider/department: Yes, 05/13/24 Requested Prescriptions Pending Prescriptions Disp Refills pantoprazole DR (PROTONIX) 40 mg tablet 180 tablet 1 Sig: Take 1 tablet by mouth two times a day. metoprolol succinate ER (TOPROL XL) 25 mg 24 hr tablet 30 tablet 5 Sig: Take 1 tablet by mouth once daily. Mayco Valladares LPN November 11, 2023 11:21 AM [facility] 11-11-2023 Miscellaneous Notes Prescription Refill Information The patient has been identified by name and date of : Yes Caregiver verified no other encounters exist for this prescription request: Yes Caregiver confirmed with patient/requestor that no other refills are due, in the near future, with this provider at this time: Yes The last office visit in the department: 11/11/23 Does the patient have a future office visit with this provider/department: Yes, 05/13/24 Requested Prescriptions Pending Prescriptions Disp Refills pantoprazole DR (PROTONIX) 40 mg tablet 180 tablet 1 Sig: Take 1 tablet by mouth two times a day. metoprolol succinate ER (TOPROL XL) 25 mg 24 hr tablet 30 tablet 5 Sig: Take 1 tablet by mouth once daily. Mayco Valladares LPN November 11, 2023 11:21 AM documented in this encounter [facility] 11-11-2023 Telephone encounter Note Prescription Refill Information The patient has been identified by name and date of : Yes Caregiver verified no other encounters exist for this prescription request: Yes Caregiver confirmed with patient/requestor that no other refills are due, in the near future, with this provider at this time: Yes The last office visit in the department: 11/11/23 Does the patient have a future office visit with this provider/department: Yes, 05/13/24 Requested Prescriptions Pending Prescriptions Disp Refills ondansetron (ZOFRAN) 4 mg tablet 10 tablet 1 Sig: Take 1 tablet by mouth once daily as needed. Mayco Valladares LPN November 11, 2023 11:20 AM [facility] 11-11-2023 Miscellaneous Notes Prescription Refill Information The patient has been identified by name and date of : Yes Caregiver verified no other encounters exist for this prescription request: Yes Caregiver confirmed with patient/requestor that no other refills are due, in the near future, with this provider at this time: Yes The last office visit in the department: 11/11/23 Does the patient have a future office visit with this provider/department: Yes, 05/13/24 Requested Prescriptions Pending Prescriptions Disp Refills ondansetron (ZOFRAN) 4 mg tablet 10 tablet 1 Sig: Take 1 tablet by mouth once daily as needed. Mayco Valladares LPN November 11, 2023 11:20 AM documented in this encounter [facility] 11-11-2023 Instructions Saumya Vargas APRN.CNP - 11/11/2023 10:23 AM EDT Call the sleep study department to reschedule sleep study. Good morning, we have been unable to reach you in regards to rescheduling you home sleep study please call our office at [phone]. 2. Schedule follow-up with cardiology. 3. Continues the same medications. 4. Get the labwork done. 5. Recheck in 6 months. documented in this encounter [facility] 11-11-2023 Note HNO ID: [id number] Author: SAUMYA VARGAS APRN.CHILO Service: ? Author Type: Nurse Practitioner Type: Progress Notes Filed: 11/11/2023 14:38 Note Text: This is a 58 year old female who presents today with: Patient presents with: 6 Month Exam HISTORY OF PRESENT ILLNESS: Inés Orellana Workman is a 58 year old female. Patient presents with: 6 Month Exam Pt presents today for 6 month follow-up. Fibromyagia/neuropathy Takes gabapentin 900 mg three times daily. Refers has been on this dosage for years. This has been keeping symptoms controlled/manageable. KRZYSZTOF Not using cpap. HTN: Patient is compliant with meds Yes Monitors bp at home: No. Denies side effects: No. Chest pain: occ when she gets very angry. Dyspnea: Yes - gets winded if she has to walk very far. Edema: occasionally. Palpitations: intermittently -- will be short duration. Syncope: No. Headache: Yes - I always have headaches. States the headache medication helps. Dizziness: intermittently -- usually when she gets up out of bed. Essential tremors. Follows with neurology. Refers that the sinemet helps to reduce the tremors. Barretts: Takes PPI. Last EGD 03/14. Mood: Has been pretty good. Will get frustrated at times. DM: Reports overall feeling well. Medication side effects: some occ GI upset -- usually the day after shot. . Home sugar checks: no Hypoglycemic spells: there was one time that she felt weak which improved with eating. Watching diet: tries to stay away from sugar. Unexpected weight loss: No. Polyuria, polydipsia: not different than normal. Vision Changes: told left eye is worse. . Foot lesions or numbness or pain: Yes. HYPERLIPIDEMIA: Patient is taking medications: Yes. Patient is watching diet: Yes. Patient denies myalgias: Yes. Patient denies gi upset: Yes HYPOTHYROID: Patient is compliant with medications: Yes Patient has changes in energy: No Patient has changes in hair or skin: hair is thinning. Patient has temperature intolerance: heat intolerant. Patient has weight changes: lost weight d/t ozempic. PAST MEDICAL HISTORY: PAST MEDICAL HISTORY No date: Anxiety No date: Powers's esophagus No date: Bipolar 1 disorder (HCC) Comment: Dr. Orozco, psychiatry No date: Chronic headaches No date: Coronary-myocardial bridge No date: DDD (degenerative disc disease) 01/05/2015: Depression No date: Essential tremor Comment: TK tremor No date: Fibromyalgia No date: GERD (gastroesophageal reflux disease) No date: HTN (hypertension) No date: Hyperlipidemia No date: Hypothyroid No date: Liver fibrosis 08/22/2019: Mild CAD No date: Neuropathy 03/08/2021: Non-melanoma skin cancer No date: Obstructive sleep apnea No date: PTSD (post-traumatic stress disorder) No date: PVD (peripheral vascular disease) ([facility]) No date: Sciatica No date: Shoulder injury No date: Type II or unspecified type diabetes mellitus without mention of complication, not stated as uncontrolled PAST SURGICAL HISTORY 01/10/2015: COLONOSCOPY FLX DX W/COLLJ SPEC WHEN PFRMD Comment: Colonoscopy 03/12/2023: COLONOSCOPY SCREENING Comment: 5 year colonoscopy screening recommended due 03/22/2028 05/21/2018: DIAGNOSTIC ARTHROSCOPY SHOULDER +- SYNOVIAL BX; Left Comment: Left shoulder arthroscopic subacromial decompression, open distal clavicle excision and manipulation under anesthesia 2019: EGD 2007: ENDOMETRIAL ABLATION WITH US GUIDANCE 01/10/2015: ESOPHAGOGASTRODUODENOSCOPY TRANSORAL DIAGNOSTIC Comment: EGD 01/10/2016: ESOPHAGOGASTRODUODENOSCOPY TRANSORAL DIAGNOSTIC Comment: E[place] [place] 03/2016: GASTRIC BYPASS HX Comment: gastric sleeve 05/16/2020: HYSTERECTOMY, REVISE VAGINA; COLPECTOMY No date: INJECTION Comment: back injections x3 05/2020: PAST SURGICAL HISTORY OF Comment: Partial Hysterectomy w/ bladder sling 1988: TUBAL LIGATION HX ALLERGIES Cat Hair Standardized Allergenic Extract, Cats, Citric Acid, Mold Spores, and Zolpidem MEDICATIONS Current Outpatient Medications Medication Sig gabapentin (NEURONTIN) 300 mg capsule Take 1 capsule by mouth three times a day for 90 days. rosuvastatin (CRESTOR) 5 mg tablet Take 1 tablet by mouth daily at bedtime. Cetirizine (ZYRTEC) 10 mg cap Take 1 capsule by mouth once daily. blood sugar diagnostic (FREESTYLE LITE STRIPS) test strip Test blood sugar(s) once times daily. Dx: E11.40 Blood-Glucose Meter (FREESTYLE LITE METER) monitoring kit Freestyle LITE Meter Kit -Test blood sugars one time daily. DX E11.40 Lancets Test blood sugar(s) one time daily. Dx: Other DM Code E11.40 Insulin: No semaglutide (OZEMPIC) 0.25 mg or 0.5 mg (2 mg/3 mL) pen Inject 0.5 mg subcutaneously one time a week. ondansetron (ZOFRAN) 4 mg tablet Take 1 tablet by mouth once daily as needed. lisinopril (ZESTRIL) 5 mg tablet Take 1 tablet by mouth once daily. carbidopa-levodopa (SINEMET) 25-100 mg per tablet Take 1 tablet by mouth (more content not included)... [facility] 11-11-2023 History of Present illness Narrative This is a 58 year old female who presents today with: Patient presents with: 6 Month Exam HISTORY OF PRESENT ILLNESS: Inés Orellana Workman is a 58 year old female. Patient presents with: 6 Month Exam Pt presents today for 6 month follow-up. Fibromyagia/neuropathy Takes gabapentin 900 mg three times daily. Refers has been on this dosage for years. This has been keeping symptoms controlled/manageable. KRZYSZTOF Not using cpap. HTN: Patient is compliant with meds Yes Monitors bp at home: No. Denies side effects: No. Chest pain: occ when she gets very angry. Dyspnea: Yes - gets winded if she has to walk very far. Edema: occasionally. Palpitations: intermittently -- will be short duration. Syncope: No. Headache: Yes - I always have headaches. States the headache medication helps. Dizziness: intermittently -- usually when she gets up out of bed. Essential tremors. Follows with neurology. Refers that the sinemet helps to reduce the tremors. Barretts: Takes PPI. Last EGD 03/14. Mood: Has been pretty good. Will get frustrated at times. DM: Reports overall feeling well. Medication side effects: some occ GI upset -- usually the day after shot. . Home sugar checks: no Hypoglycemic spells: there was one time that she felt weak which improved with eating. Watching diet: tries to stay away from sugar. Unexpected weight loss: No. Polyuria, polydipsia: not different than normal. Vision Changes: told left eye is worse. . Foot lesions or numbness or pain: Yes. HYPERLIPIDEMIA: Patient is taking medications: Yes. Patient is watching diet: Yes. Patient denies myalgias: Yes. Patient denies gi upset: Yes HYPOTHYROID: Patient is compliant with medications: Yes Patient has changes in energy: No Patient has changes in hair or skin: hair is thinning. Patient has temperature intolerance: heat intolerant. Patient has weight changes: lost weight d/t ozempic. PAST MEDICAL HISTORY: PAST MEDICAL HISTORY No date: Anxiety No date: Powers's esophagus No date: Bipolar 1 disorder (HCC) Comment: Dr. Orozco, psychiatry No date: Chronic headaches No date: Coronary-myocardial bridge No date: DDD (degenerative disc disease) 01/05/2015: Depression No date: Essential tremor Comment: TK tremor No date: Fibromyalgia No date: GERD (gastroesophageal reflux disease) No date: HTN (hypertension) No date: Hyperlipidemia No date: Hypothyroid No date: Liver fibrosis 08/22/2019: Mild CAD No date: Neuropathy 03/08/2021: Non-melanoma skin cancer No date: Obstructive sleep apnea No date: PTSD (post-traumatic stress disorder) No date: PVD (peripheral vascular disease) (HCC) No date: Sciatica No date: Shoulder injury No date: Type II or unspecified type diabetes mellitus without mention of complication, not stated as uncontrolled PAST SURGICAL HISTORY 01/10/2015: COLONOSCOPY FLX DX W/COLLJ SPEC WHEN PFRMD Comment: Colonoscopy 03/12/2023: COLONOSCOPY SCREENING Comment: 5 year colonoscopy screening recommended due 03/22/2028 05/21/2018: DIAGNOSTIC ARTHROSCOPY SHOULDER +- SYNOVIAL BX; Left Comment: Left shoulder arthroscopic subacromial decompression, open distal clavicle excision and manipulation under anesthesia 2019: EGD 2007: ENDOMETRIAL ABLATION WITH US GUIDANCE 01/10/2015: ESOPHAGOGASTRODUODENOSCOPY TRANSORAL DIAGNOSTIC Comment: EGD 01/10/2016: ESOPHAGOGASTRODUODENOSCOPY TRANSORAL DIAGNOSTIC Comment: EGD ([facility] [place] 03/2016: GASTRIC BYPASS HX Comment: gastric sleeve 05/16/2020: HYSTERECTOMY, REVISE VAGINA; COLPECTOMY No date: INJECTION Comment: back injections x3 05/2020: PAST SURGICAL HISTORY OF Comment: Partial Hysterectomy w/ bladder sling 1988: TUBAL LIGATION HX ALLERGIES Cat Hair Standardized Allergenic Extract, Cats, Citric Acid, Mold Spores, and Zolpidem MEDICATIONS Current Outpatient Medications Medication Sig gabapentin (NEURONTIN) 300 mg capsule Take 1 capsule by mouth three times a day for 90 days. rosuvastatin (CRESTOR) 5 mg tablet Take 1 tablet by mouth daily at bedtime. Cetirizine (ZYRTEC) 10 mg cap Take 1 capsule by mouth once daily. blood sugar diagnostic (FREESTYLE LITE STRIPS) test strip Test blood sugar(s) once times daily. Dx: E11.40 Blood-Glucose Meter (FREESTYLE LITE METER) monitoring kit Freestyle LITE Meter Kit -Test blood sugars one time daily. DX E11.40 Lancets Test blood sugar(s) one time daily. Dx: Other DM Code E11.40 Insulin: No semaglutide (OZEMPIC) 0.25 mg or 0.5 mg (2 mg/3 mL) pen Inject 0.5 mg subcutaneously one time a week. ondansetron (ZOFRAN) 4 mg tablet Take 1 tablet by mouth once daily as needed. lisinopril (ZESTRIL) 5 mg tablet Take 1 tablet by mouth once daily. carbidopa-levodopa (SINEMET) 25-100 mg per tablet Take 1 tablet by mouth three times a day. lurasidone (LATUDA) 20 mg tablet take 1 tablet by mouth once daily with supper loratadine (CLARITIN) 10 mg tablet Take 10 mg by mouth once daily. prochlorperazine (COMPAZINE) 10 mg tablet Take 1 tablet by mouth two times a day as needed (migraine). ferrous sulfate 325 mg (65 mg iron) tablet Take 1 tablet by mouth two times a day with meals. carboxymethylcellulose (REFRESH CELLUVISC) 1 % ophthalmic solution Use 1 Drop in both eyes daily at bedtime. metoprolol succinate ER (TOPROL XL) 25 mg 24 hr tablet Take 1 tablet by mouth once daily. pantoprazole DR (PROTONIX) 40 mg tablet Take 1 tablet by mouth two times a day. thyroid, pork, (ARMOUR THYROID) 60 mg tablet Take 1 tablet by mouth two times a day. metFORMIN ER (GLUCOPHAGE XR) 500 mg 24 hr tablet Take 3 tablets by mouth daily with breakfast. lamoTRIgine (LAMICTAL) 200 mg tablet Take 1 tablet by mouth two times a day. nitroglycerin sublingual (NITROQUICK) 0.3 mg SL tablet Dissolve 1 tablet under the tongue every 5 minutes as needed. Fenofibrate (LOFIBRA) 54 mg tablet Take 1 tablet by mouth once daily. PEG 400-propylene glycol (SYSTANE ULTRA) 0.4-0.3 % ophthalmic solution Use 1 Drop in both eyes twice daily. VYVANSE 20 mg capsule 40 mg. Aluminum Hydrox-Magnesium Carb (GAVISCON EXTRA STRENGTH) 254-237.5 mg/5 mL susp Take 15 mL by mouth at bedtime as needed. acetaminophen (TYLENOL EXTRA STRENGTH) 500 mg tablet Take 2 tablets by mouth every 8 hours as needed for Pain. COMPOUNDED PRESCRIPTION Initiate AutoPAP @ 10-20 cm of water with humidification mask (per patient preference) optional chin strap (if indicated) and lifetime supplies ([facility]) DX: KRZYSZTOF G47.33 multivit with minerals/lutein (MULTIVITAMIN 50 PLUS ORAL) Take 1 tablet by mouth once daily. COMPOUNDED PRESCRIPTION Diabetic shoes One pair CPAP CPAP with humidification. Mask (per patient preference) optional chin strap (if indicated) , filters, tubing, humidifier and lifetime supplies. clonazePAM (KLONOPIN) 1 mg tablet 1 mg three times daily. vortioxetine (TRINTELLIX) 20 mg tablet Take 1 tablet by mouth once daily. aspirin 81 mg chewable tablet Take 1 tablet by mouth once daily. CPAP Please provide supplies. Mask per preference, tubing, filters, humidity. Lifetime Supplies. Dx: G47.33 COMPOUNDED PRESCRIPTION Lightweight wheelchair DX: DDD, neuropathy Wheel Chair issac DX: debility COMPOUNDED PRESCRIPTION EX-LARGE BLOOD PRESSURE CUFF KIT DX I10 Blood Pressure Test Kit-Large (QUICK RESPONSE BP MONITOR) kit 1 Kit once daily. buPROPion HCl 200 mg 12 hr tablet Take 200 mg by mouth twice daily. No current facility-administered medications for this visit. FAMILY HISTORY Problem Relation Age of Onset Heart Father other (parkinson's) Father Diabetes Mother Stroke Mother Cancer Mother melanoma other (Other) Sister in infancy Mental illness Brother Alcohol/Drug Brother Stroke Maternal Grandmother Alzheimer's Disease Maternal Grandmother Diabetes Paternal Grandmother Bipolar disorder Daughter other (Other) Daughter behavioral disorder ADD/ADHD Son Bipolar disorder Son other (behavioral conduct disorder) Grandchild Glaucoma No Family History Macular Degen No Family History Social History Tobacco Use Smoking status: Former Current packs/day: 0.00 Average packs/day: 1.5 packs/day for 11.0 years (16.5 ttl pk-yrs) Types: Cigarettes Start date: 03/23/1978 Quit date: 03/23/1989 Years since quittin.6 Smokeless tobacco: Never Vaping Use Vaping status: Never Used Substance Use Topics Alcohol use: No Drug use: No EXAM: BP 120/72 Pulse 66 Resp 16 Wt 96.6 kg (213 lb) LMP 11/20/2014 (Approximate) SpO2 96% BMI 33.36 kg/m PHYSICAL EXAM: General Appearance: Well appearing, alert, in no acute distress, well-hydrated, well nourished.. Skin: Skin color, texture, turgor normal, no suspicious rashes or lesions. Head: Normocephalic, no masses, lesions, tenderness or abnormalities. Eyes: Anicteric sclera. Extraocular movements are intact. . Neck: Supple, no adenopathy; thyroid symmetric, normal size, no bruits. Lungs: Lungs clear to auscultation. No wheezing, rhonchi, rales.. Heart: RRR without murmur, gallop, or rubs. No ectopy. Abdomen: Abdomen soft, non-tender. Bowel sounds normal. No masses, organomegaly. Extremities: No deformities, edema, skin discoloration, clubbing or cyanosis. Good capillary refill. . Neurologic: Gait normal. ASSESSMENT/PLAN: 1. Type 2 diabetes mellitus with diabetic neuropathy, without long-term current use of insulin (HCC) - ICD9: 250.60, 357.2, ICD10: E11.40 (primary diagnosis) - Controlled - Continue current medications 2. Fibromyalgia - ICD9: 729.1, ICD10: M79.7 Refill: Stable on medication. - GABAPENTIN 600 MG TABLET 3. Other hyperlipidemia - ICD9: 272.4, ICD10: E78.49 - LIPID PANEL BASIC 4. KRZYSZTOF (obstructive sleep apnea) - ICD9: 327.23, ICD10: G47.33 Untreated. 5. Essential tremor - ICD9: 333.1, ICD10: G25.0 Improved with sinemet. Continue per neurology. 6. Hypothyroidism, unspecified type - ICD9: 244.9, ICD10: E03.9 Stable. 7. Powers's esophagus with dysplasia - ICD9: 530.85, ICD10: K22.719 Up to date with EGD. Symptoms controlled with PPI. 8. Bipolar 1 disorder (HCC) - ICD9: 296.7, ICD10: F31.9 Stable on medications. Discussed treatment plan and patient voices understanding. Patient's questions answered appropriately. Medications and potential side effects were discussed and patient voices understanding. Return to the office as scheduled or as needed for worsening/no improvement. Saumya Vargas APRN.CHILO documented in this encounter [facility] 11-10-2023 Telephone encounter Note According to our chart and [place], you are on 300 mg 3 x day. You have an appointment tomorrow with Saumya. I will renew the 300 mg 3 x day for 1 month. You will need to discuss further at your appt. [facility] 11-10-2023 Miscellaneous Notes According to our chart and [place], you are on 300 mg 3 x day. You have an appointment tomorrow with Saumya. I will renew the 300 mg 3 x day for 1 month. You will need to discuss further at your appt. documented in this encounter [facility] 10-19-2023 Telephone encounter Note Prescription Refill Information The patient has been identified by name and date of : Yes Caregiver verified no other encounters exist for this prescription request: Yes Caregiver confirmed with patient/requestor that no other refills are due, in the near future, with this provider at this time: Yes The last office visit in the department: 07/24/23 Does the patient have a future office visit with this provider/department: Yes, 11/11/23 Requested Prescriptions Pending Prescriptions Disp Refills rosuvastatin (CRESTOR) 5 mg tablet 90 tablet 1 Sig: Take 1 tablet by mouth daily at bedtime. Mayco Valladares LPN October 19, 2023 10:39 AM [facility] 10-19-2023 Miscellaneous Notes Prescription Refill Information The patient has been identified by name and date of : Yes Caregiver verified no other encounters exist for this prescription request: Yes Caregiver confirmed with patient/requestor that no other refills are due, in the near future, with this provider at this time: Yes The last office visit in the department: 07/24/23 Does the patient have a future office visit with this provider/department: Yes, 11/11/23 Requested Prescriptions Pending Prescriptions Disp Refills rosuvastatin (CRESTOR) 5 mg tablet 90 tablet 1 Sig: Take 1 tablet by mouth daily at bedtime. Mayco Valladares LPN October 19, 2023 10:39 AM documented in this encounter [facility] 09-16-[address] Please place consult to ENT with Dx reason [facility] 09-16-[address] consult to ENT with Dx reason Please help patient with her ENT consult order. Thank you documented in this encounter [facility] 09-07-2023 Telephone encounter Note Please help patient with her ENT consult order. Thank you [facility] 08-28-2023 Telephone encounter Note Increase this dose to 0.5 mg? [facility] 08-28-2023 Miscellaneous Notes Increase this dose to 0.5 mg? documented in this encounter [facility] 08-24-2023 Telephone encounter Note Patient MyChart message requesting the following refill Refill(s) Requested: Requested Prescriptions Pending Prescriptions Disp Refills ondansetron (ZOFRAN) 4 mg tablet 10 tablet 1 Sig: Take 1 tablet by mouth once daily as needed. ALLERGIES Allergen Reactions Cat Hair Standardiz* Itching Eyes get really red, if cat is too close, can't breathe Cats Itching Eyes get really red, if cat is too close, can't breathe Citric Acid Intolerance Mold Spores Other: See Comments Flu like symptoms Zolpidem Other: See Comments (home) [phone] (cell) Last Office Visit Date: 07/24/2023 Last [facility] Health Visit: Visit date not found Future Appointment: 11/11/2023 The patients preferred pharmacy has been captured for this encounter? yes Request is for script(s) to be escript to pharmacy. Ion Fairbanks LPN [facility] 08-24-2023 Miscellaneous Notes Patient MyChart message requesting the following refill Refill(s) Requested: Requested Prescriptions Pending Prescriptions Disp Refills ondansetron (ZOFRAN) 4 mg tablet 10 tablet 1 Sig: Take 1 tablet by mouth once daily as needed. ALLERGIES Allergen Reactions Cat Hair Standardiz* Itching Eyes get really red, if cat is too close, can't breathe Cats Itching Eyes get really red, if cat is too close, can't breathe Citric Acid Intolerance Mold Spores Other: See Comments Flu like symptoms Zolpidem Other: See Comments (home) [phone] (cell) Last Office Visit Date: 07/24/2023 Last [facility] Health Visit: Visit date not found Future Appointment: 11/11/2023 The patients preferred pharmacy has been captured for this encounter? yes Request is for script(s) to be escript to pharmacy. Ion Fairbanks LPN documented in this encounter [facility] 08-18-2023 Telephone encounter Note The following approved medication requests have been transmitted electronically. Requested Prescriptions Pending Prescriptions Disp Refills gabapentin (NEURONTIN) 300 mg capsule 90 capsule 2 Sig: Take 1 capsule by mouth three times a day for 90 days. Nanette Carroll APRN.CNS [facility] 08-18-2023 Miscellaneous Notes The following approved medication requests have been transmitted electronically. Requested Prescriptions Pending Prescriptions Disp Refills gabapentin (NEURONTIN) 300 mg capsule 90 capsule 2 Sig: Take 1 capsule by mouth three times a day for 90 days. Nanette Carroll APRN.CNS Prescription Refill Information The patient has been identified by name and date of : Yes Caregiver verified no other encounters exist for this prescription request: Yes Caregiver confirmed with patient/requestor that no other refills are due, in the near future, with this provider at this time: Yes The last office visit in the department: 07/24/23 Does the patient have a future office visit with this provider/department: Yes 11/11/23 Requested Prescriptions Pending Prescriptions Disp Refills gabapentin (NEURONTIN) 300 mg capsule 90 capsule 2 Sig: Take 1 capsule by mouth three times a day for 90 days. Flavia Leon MA August 18, 2023 8:07 AM documented in this encounter [facility] 08-18-2023 Telephone encounter Note Prescription Refill Information The patient has been identified by name and date of : Yes Caregiver verified no other encounters exist for this prescription request: Yes Caregiver confirmed with patient/requestor that no other refills are due, in the near future, with this provider at this time: Yes The last office visit in the department: 07/24/23 Does the patient have a future office visit with this provider/department: Yes 11/11/23 Requested Prescriptions Pending Prescriptions Disp Refills gabapentin (NEURONTIN) 300 mg capsule 90 capsule 2 Sig: Take 1 capsule by mouth three times a day for 90 days. Flavia Leon MA August 18, 2023 8:07 AM [facility] 08-05-2023 Telephone encounter Note Patient has been identified by name and date of : Yes Patient phones for refill(s): Requested Prescriptions Pending Prescriptions Disp Refills lisinopril (ZESTRIL) 5 mg tablet 90 tablet 3 Sig: Take 1 tablet by mouth once daily. Date of last office visit in primary care: 07/24/2023 Date of next office visit in primary care: 11/11/2023 Patient's [id number] is waiting at the Pharmacy now for this prescription. She is asking if this can be sent now? Please advise. Thank you. Erlinda Lisa. [facility] 08-05-2023 Miscellaneous Notes Patient has been identified by name and date of : Yes Patient phones for refill(s): Requested Prescriptions Pending Prescriptions Disp Refills lisinopril (ZESTRIL) 5 mg tablet 90 tablet 3 Sig: Take 1 tablet by mouth once daily. Date of last office visit in primary care: 07/24/2023 Date of next office visit in primary care: 11/11/2023 Patient's [id number] is waiting at the Pharmacy now for this prescription. She is asking if this can be sent now? Please advise. Thank you. Erlinda Lisa. documented in this encounter [facility] 08-04-2023 Telephone encounter Note Checked with pharmacy, refills available. [facility] 08-04-2023 Miscellaneous Notes Checked with pharmacy, refills available. Patient has one left and asked that this be expedited. Patient has been identified by name and date of : Yes, Patient phones for refill(s): Requested Prescriptions Pending Prescriptions Disp Refills thyroid, pork, (ARMOUR THYROID) 60 mg tablet 60 tablet 5 Sig: Take 1 tablet by mouth two times a day. Date of last office visit in primary care: 07/24/2023 Date of next office visit in primary care: 11/11/2023 Please advise. Thank you. Nadia Mcgarry. documented in this encounter [facility] 08-04-2023 Telephone encounter Note Patient has one left and asked that this be expedited. Patient has been identified by name and date of : Yes, Patient phones for refill(s): Requested Prescriptions Pending Prescriptions Disp Refills thyroid, pork, (ARMOUR THYROID) 60 mg tablet 60 tablet 5 Sig: Take 1 tablet by mouth two times a day. Date of last office visit in primary care: 07/24/2023 Date of next office visit in primary care: 11/11/2023 Please advise. Thank you. Nadia Mcgarry. [facility] 07-30-2023 Telephone encounter Note Pharmacy verified in [facility] Patient has been identified by name and date of : Yes Patient aware RX will be sent to pharmacy. No need to notify patient. Patient phones for refill(s): Requested Prescriptions Pending Prescriptions Disp Refills carbidopa-levodopa (SINEMET) 25-100 mg per tablet 90 tablet 2 Sig: Take 1 tablet by mouth three times a day. Date of last office visit : 07/03/2023 Date of next office visit : 01/08/2024 Last 2 Encounter Wt Readings: Date: Wt: 07/24/2023 112 kg (247 lb) 07/03/2023 112.6 kg (248 lb 3.8 oz) Not applicable Please advise. Olive Mercedes MA [facility] 07-30-2023 Miscellaneous Notes Pharmacy verified in [facility] Patient has been identified by name and date of : Yes Patient aware RX will be sent to pharmacy. No need to notify patient. Patient phones for refill(s): Requested Prescriptions Pending Prescriptions Disp Refills carbidopa-levodopa (SINEMET) 25-100 mg per tablet 90 tablet 2 Sig: Take 1 tablet by mouth three times a day. Date of last office visit : 07/03/2023 Date of next office visit : 01/08/2024 Last 2 Encounter Wt Readings: Date: Wt: 07/24/2023 112 kg (247 lb) 07/03/2023 112.6 kg (248 lb 3.8 oz) Not applicable Please advise. Olive Mercedes MA documented in this encounter [facility] 07-24-2023 Note HNO ID: [id number] Author: SANTHOSH HOLDEN MD Service: ? Author Type: Physician Type: Progress Notes Filed: 07/24/2023 10:38 Note Text: Patient presents with: Sleep Apnea HPI: Patient presents today for office visit for [id number] for replacement CPAP machine. KRZYSZTOF: Has not been using her Auto PAP for quite awhile. Refers to it falling off her night stand one too many times and no longer works. Not sure on time frame. She's thinking maybe months but is not sure Snoring is very loud. Refers to waking herself due to snoring and choking. Wakes up often through the night. Does not feel rested when she wakes up. Refers to feeling groggy Mentions lots of times she wakes up with a headache. Does have daytime fatigue. Typically takes a 2hr nap everyday. Last sleep study 12/27/14. Using [facility] Discussed glp 1 Discussed weight loss. Is not wanting to take if it does not boost her metabolism. No chest pain or shortness of breath. MEDICATIONS: Current Outpatient Medications Medication Sig lurasidone (LATUDA) 20 mg tablet take 1 tablet by mouth once daily with supper loratadine (CLARITIN) 10 mg tablet Take 10 mg by mouth once daily. prochlorperazine (COMPAZINE) 10 mg tablet Take 1 tablet by mouth two times a day as needed (migraine). ferrous sulfate 325 mg (65 mg iron) tablet Take 1 tablet by mouth two times a day with meals. carboxymethylcellulose (REFRESH CELLUVISC) 1 % ophthalmic solution Use 1 Drop in both eyes daily at bedtime. gabapentin (NEURONTIN) 600 mg tablet Take 1 tablet by mouth three times a day for 180 days. metoprolol succinate ER (TOPROL XL) 25 mg 24 hr tablet Take 1 tablet by mouth once daily. gabapentin (NEURONTIN) 300 mg capsule Take 1 capsule by mouth three times a day for [address] (PROTONIX) 40 mg tablet Take 1 tablet by mouth two times a day. lisinopril (ZESTRIL) 5 mg tablet Take 1 tablet by mouth once daily. carbidopa-levodopa (SINEMET) 25-100 mg per tablet Take 1 tablet by mouth three times a day. thyroid, pork, (ARMOUR THYROID) 60 mg tablet Take 1 tablet by mouth two times a day. rosuvastatin (CRESTOR) 5 mg tablet Take 1 tablet by mouth daily at bedtime. metFORMIN ER (GLUCOPHAGE XR) 500 mg 24 hr tablet Take 3 tablets by mouth daily with breakfast. lamoTRIgine (LAMICTAL) 200 mg tablet Take 1 tablet by mouth two times a day. nitroglycerin sublingual (NITROQUICK) 0.3 mg SL tablet Dissolve 1 tablet under the tongue every 5 minutes as needed. Fenofibrate (LOFIBRA) 54 mg tablet Take 1 tablet by mouth once daily. PEG 400-propylene glycol (SYSTANE ULTRA) 0.4-0.3 % ophthalmic solution Use 1 Drop in both eyes twice daily. ondansetron (ZOFRAN) 4 mg tablet Take 1 tablet by mouth once daily as needed. VYVANSE 20 mg capsule 40 mg. Aluminum Hydrox-Magnesium Carb (GAVISCON EXTRA STRENGTH) 254-237.5 mg/5 mL susp Take 15 mL by mouth at bedtime as needed. Blood-Glucose Meter (FREESTYLE LITE METER) monitoring kit Freestyle LITE Meter Kit -Test blood sugars one time daily. DX E11.40 blood sugar diagnostic (FREESTYLE LITE STRIPS) test strip Test blood sugar(s) once times daily. Dx: E11.40 Lancets lancets Test blood sugar(s) one time daily. Dx: Other DM Code E11.40 Insulin: No acetaminophen (TYLENOL EXTRA STRENGTH) 500 mg tablet Take 2 tablets by mouth every 8 hours as needed for Pain. COMPOUNDED PRESCRIPTION Initiate AutoPAP @ 10-20 cm of water with humidification mask (per patient preference) optional chin strap (if indicated) and lifetime supplies ([facility]) DX: KRZYSZTOF G47.33 multivit with minerals/lutein (MULTIVITAMIN 50 PLUS ORAL) Take 1 tablet by mouth once daily. COMPOUNDED PRESCRIPTION Diabetic shoes One pair CPAP CPAP with humidification. Mask (per patient preference) optional chin strap (if indicated) , filters, tubing, humidifier and lifetime supplies. clonazePAM (KLONOPIN) 1 mg tablet 1 mg three times daily. vortioxetine (TRINTELLIX) 20 mg tablet Take 1 tablet by mouth once daily. aspirin 81 mg chewable tablet Take 1 tablet by mouth once daily. CPAP Please provide supplies. Mask per preference, tubing, filters, humidity. Lifetime Supplies. Dx: G47.33 COMPOUNDED PRESCRIPTION Lightweight wheelchair DX: DDD, neuropathy Wheel Chair issac DX: debility COMPOUNDED PRESCRIPTION EX-LARGE BLOOD PRESSURE CUFF KIT DX I10 Blood Pressure Test Kit-Large (QUICK RESPONSE BP MONITOR) kit 1 Kit once daily. buPROPion HCl 200 mg 12 hr tablet Take 200 mg by mouth twice daily. No current facility-administered medications for this visit. ALLERGIES: ALLERGIES Allergen Reactions Cat Hair Standardiz* Itching Eyes get really red, if cat is too close, can't breathe Cats Itching Eyes get really red, if cat is too close, can't breathe Citric Acid Intolerance Mold Spores Other: See Comments Flu like symptoms Zolpidem Other: See Comments PAST MEDICAL HISTORY Diagnosis Date Anxiety Powers's esophagus (more content not included)... [facility] 07-24-2023 History of Present illness Narrative Patient presents with: Sleep Apnea HPI: Patient presents today for office visit for [id number] for replacement CPAP machine. KRZYSZTOF: Has not been using her Auto PAP for quite awhile. Refers to it falling off her night stand one too many times and no longer works. Not sure on time frame. She's thinking maybe months but is not sure Snoring is very loud. Refers to waking herself due to snoring and choking. Wakes up often through the night. Does not feel rested when she wakes up. Refers to feeling groggy Mentions lots of times she wakes up with a headache. Does have daytime fatigue. Typically takes a 2hr nap everyday. Last sleep study 12/27/14. Using [facility] Discussed glp 1 Discussed weight loss. Is not wanting to take if it does not boost her metabolism. No chest pain or shortness of breath. MEDICATIONS: Current Outpatient Medications Medication Sig lurasidone (LATUDA) 20 mg tablet take 1 tablet by mouth once daily with supper loratadine (CLARITIN) 10 mg tablet Take 10 mg by mouth once daily. prochlorperazine (COMPAZINE) 10 mg tablet Take 1 tablet by mouth two times a day as needed (migraine). ferrous sulfate 325 mg (65 mg iron) tablet Take 1 tablet by mouth two times a day with meals. carboxymethylcellulose (REFRESH CELLUVISC) 1 % ophthalmic solution Use 1 Drop in both eyes daily at bedtime. gabapentin (NEURONTIN) 600 mg tablet Take 1 tablet by mouth three times a day for 180 days. metoprolol succinate ER (TOPROL XL) 25 mg 24 hr tablet Take 1 tablet by mouth once daily. gabapentin (NEURONTIN) 300 mg capsule Take 1 capsule by mouth three times a day for [address] (PROTONIX) 40 mg tablet Take 1 tablet by mouth two times a day. lisinopril (ZESTRIL) 5 mg tablet Take 1 tablet by mouth once daily. carbidopa-levodopa (SINEMET) 25-100 mg per tablet Take 1 tablet by mouth three times a day. thyroid, pork, (ARMOUR THYROID) 60 mg tablet Take 1 tablet by mouth two times a day. rosuvastatin (CRESTOR) 5 mg tablet Take 1 tablet by mouth daily at bedtime. metFORMIN ER (GLUCOPHAGE XR) 500 mg 24 hr tablet Take 3 tablets by mouth daily with breakfast. lamoTRIgine (LAMICTAL) 200 mg tablet Take 1 tablet by mouth two times a day. nitroglycerin sublingual (NITROQUICK) 0.3 mg SL tablet Dissolve 1 tablet under the tongue every 5 minutes as needed. Fenofibrate (LOFIBRA) 54 mg tablet Take 1 tablet by mouth once daily. PEG 400-propylene glycol (SYSTANE ULTRA) 0.4-0.3 % ophthalmic solution Use 1 Drop in both eyes twice daily. ondansetron (ZOFRAN) 4 mg tablet Take 1 tablet by mouth once daily as needed. VYVANSE 20 mg capsule 40 mg. Aluminum Hydrox-Magnesium Carb (GAVISCON EXTRA STRENGTH) 254-237.5 mg/5 mL susp Take 15 mL by mouth at bedtime as needed. Blood-Glucose Meter (FREESTYLE LITE METER) monitoring kit Freestyle LITE Meter Kit -Test blood sugars one time daily. DX E11.40 blood sugar diagnostic (FREESTYLE LITE STRIPS) test strip Test blood sugar(s) once times daily. Dx: E11.40 Lancets lancets Test blood sugar(s) one time daily. Dx: Other DM Code E11.40 Insulin: No acetaminophen (TYLENOL EXTRA STRENGTH) 500 mg tablet Take 2 tablets by mouth every 8 hours as needed for Pain. COMPOUNDED PRESCRIPTION Initiate AutoPAP @ 10-20 cm of water with humidification mask (per patient preference) optional chin strap (if indicated) and lifetime supplies ([facility]) DX: KRZYSZTOF G47.33 multivit with minerals/lutein (MULTIVITAMIN 50 PLUS ORAL) Take 1 tablet by mouth once daily. COMPOUNDED PRESCRIPTION Diabetic shoes One pair CPAP CPAP with humidification. Mask (per patient preference) optional chin strap (if indicated) , filters, tubing, humidifier and lifetime supplies. clonazePAM (KLONOPIN) 1 mg tablet 1 mg three times daily. vortioxetine (TRINTELLIX) 20 mg tablet Take 1 tablet by mouth once daily. aspirin 81 mg chewable tablet Take 1 tablet by mouth once daily. CPAP Please provide supplies. Mask per preference, tubing, filters, humidity. Lifetime Supplies. Dx: G47.33 COMPOUNDED PRESCRIPTION Lightweight wheelchair DX: DDD, neuropathy Wheel Chair issac DX: debility COMPOUNDED PRESCRIPTION EX-LARGE BLOOD PRESSURE CUFF KIT DX I10 Blood Pressure Test Kit-Large (QUICK RESPONSE BP MONITOR) kit 1 Kit once daily. buPROPion HCl 200 mg 12 hr tablet Take 200 mg by mouth twice daily. No current facility-administered medications for this visit. ALLERGIES: ALLERGIES Allergen Reactions Cat Hair Standardiz* Itching Eyes get really red, if cat is too close, can't breathe Cats Itching Eyes get really red, if cat is too close, can't breathe Citric Acid Intolerance Mold Spores Other: See Comments Flu like symptoms Zolpidem Other: See Comments PAST MEDICAL HISTORY Diagnosis Date Anxiety Powers's esophagus Bipolar 1 disorder (HCC) Dr. Orozco, psychiatry Chronic headaches Coronary-myocardial bridge DDD (degenerative disc disease) Depression 01/05/2015 Essential tremor TK tremor Fibromyalgia GERD (gastroesophageal reflux disease) HTN (hypertension) Hyperlipidemia Hypothyroid Liver fibrosis Mild CAD 08/22/2019 Neuropathy Non-melanoma skin cancer 03/08/2021 Obstructive sleep apnea PTSD (post-traumatic stress disorder) PVD (peripheral vascular disease) (HCC) Sciatica Shoulder injury Type II or unspecified type diabetes mellitus without mention of complication, not stated as uncontrolled PAST SURGICAL HISTORY Procedure Laterality Date COLONOSCOPY FLX DX W/COLLJ SPEC WHEN PFRMD 01/10/2015 Colonoscopy COLONOSCOPY SCREENING 03/12/2023 5 year colonoscopy screening recommended due 03/22/2028 DIAGNOSTIC ARTHROSCOPY SHOULDER +- SYNOVIAL BX Left 05/21/2018 Left shoulder arthroscopic subacromial decompression, open distal clavicle excision and manipulation under anesthesia EGD 2019 ENDOMETRIAL ABLATION WITH US GUIDANCE 2007 ESOPHAGOGASTRODUODENOSCOPY TRANSORAL DIAGNOSTIC 01/10/2015 EGD ESOPHAGOGASTRODUODENOSCOPY TRANSORAL DIAGNOSTIC 01/10/2016 EGD (MAC) GASTRIC BYPASS HX 03/2016 gastric sleeve HYSTERECTOMY, REVISE VAGINA; COLPECTOMY 05/16/2020 INJECTION back injections x3 PAST SURGICAL HISTORY OF 05/2020 Partial Hysterectomy w/ bladder sling TUBAL LIGATION HX 1988 FAMILY HISTORY Problem Relation Age of Onset Heart Father other (parkinson's) Father Diabetes Mother Stroke Mother Cancer Mother melanoma other (Other) Sister in infancy Mental illness Brother Alcohol/Drug Brother Stroke Maternal Grandmother Alzheimer's Disease Maternal Grandmother Diabetes Paternal Grandmother Bipolar disorder Daughter other (Other) Daughter behavioral disorder ADD/ADHD Son Bipolar disorder Son other (behavioral conduct disorder) Grandchild Glaucoma No Family History Macular Degen No Family History Social History Tobacco Use Smoking status: Former Packs/day: 1.50 Years: 11.00 Additional pack years: 0.00 Total pack years: 16.50 Types: Cigarettes Quit date: 03/23/1989 Years since quittin.3 Smokeless tobacco: Never Vaping Use Vaping Use: Never used Substance Use Topics Alcohol use: No Drug use: No Reviewed current medications, allergies, past medical history, surgical history, family history and social history today. REVIEW OF SYSTEMS All other reviewed and negative other than HPI. HEALTH MAINTENANCE: Reviewed health maintenance issues today and recommended the following in detail. Mammogram Screening due on 06/07/2023-order is in the chart. VITALS: BP 130/72 Pulse 64 Ht 170.2 cm (5' 7) Wt 112 kg (247 lb) LMP 11/20/2014 (Approximate) SpO2 95% BMI 38.69 kg/m Last 4 Encounter Wt Readings: Date: Wt: 07/24/2023 112 kg (247 lb) 07/03/2023 112.6 kg (248 lb 3.8 oz) 06/02/2023 113.4 kg (250 lb) 05/08/2023 112.5 kg (248 lb 0.3 oz) PHYSICAL EXAMINATION: General appearance: Well appearing, alert, in no acute distress, well-hydrated, well nourished. Skin: Skin color, texture, turgor normal, no suspicious rashes or lesions Head: Normocephalic, no masses, lesions, tenderness or abnormalities Lungs: Lungs clear to auscultation. No wheezing, rhonchi, rales Heart: RRR without murmur, gallop, or rubs. No ectopy Abdomen: Normal abdominal exam, Abdomen soft, non-tender. Bowel sounds normal. No masses, organomegaly Extremities: No deformities, edema, skin discoloration, clubbing or cyanosis. Good capillary refill. ASSESSMENT/PLAN: 1. KRZYSZTOF (obstructive sleep apnea) - ICD9: 327.23, ICD10: G47.33 - set up for sleep study. See where numbers are. - HOME SLEEP APNEA TEST (HSAT) Santhosh Holden MD Keep next appt. documented in this encounter [facility] 07-20-2023 Telephone encounter Note Concern below forwarded to provider in separate encounter with same date. DAVID Larios [facility] 07-20-2023 Miscellaneous Notes Concern below forwarded to provider in separate encounter with same date. DAVID Larios documented in this encounter [facility] 07-15-[address] Lazaro to patient's message in regards to Ozempic med. Already advised patient to schedule a sleep follow up with PCP office. Kasandra Florian MA [facility] 07-15-[address] Lazaro to patient's message in regards to Ozempic med. Already advised patient to schedule a sleep follow up with PCP office. Kasandra Florian MA documented in this encounter [facility] 07-15-2023 Telephone encounter Note SEE OTHER MESSAGE 07/14. Kasandra Florian MA [facility] 07-15-2023 Miscellaneous Notes SEE OTHER MESSAGE 07/14. Kasandra Florian MA documented in this encounter [facility] 07-03-2023 Instructions Jovanna Prince MD - 07/03/2023 3:44 PM EDT 1. Start b2 (riboflavin) 400 mg daily, available online in a migraine supplement 2. I think the memory difficulty is some combination of medication effects and/or psychological conditions, not currently worried about a degenerative cause of memory impairment. 3. Its possible that some of the medications are contributing to tremor (Vyvanse, Wellbutrin, or Lamotrigine). If possible to lower any of these medications it may help tremor. documented in this encounter [facility] 07-03-2023 Note O ID: [id number] Author: JOVANNA PRINCE MD Service: ? Author Type: Physician Type: Progress Notes Filed: 07/24/2023 13:07 Note Text: FOLLOW UP NOTE Subjective Inés Orellana Workman is a 57 year old female who presents for follow up. CC: Tremor Summary of prior care: Right-handed female with a history of PTSD, bipolar disorder, fibromyalgia, migraine, and tremor amongst other conditions who presents for evaluation of tremor. 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 Complicated presentation primarily due to the large amount of neuropsychiatrically active medications she is on. Wellbutrin, Austedo, and Vyvanse can all contribute to tremor. Suggested tapering off Austedo for now, consider other changes in the future. For migraine, will do medrol dose ryne + compazine bridge treatment. Afterwards can take compazine. Hesitant to add additional prescription medications due to polypharmacy. Will try migraine supplements B2 and Mg. 10/2022 retry levodopa 100 TID for mixed tremor. HPI Current Issues 1. Tremor - Thinks carbidopa/levodopa is helpful for tremor - Still definitely has tremor, demonstrative - Can be hard to eat - No side effects to levodopa 2. Migraine - Has had more lately with weather changes - Compazine is effective - Estimates gets a couple a week - Doesn't take migraine vitamins Headache description: - Aura: Notes possibly seeing things hard to explain - Onset: More in the morning - Location: Typically one side or the other, uncommonly back of head - Pain: Pressure, sharp - A/w: (+)photophobia / (+)phonophobia / (+)nausea / (+/-)osmophobia / (-)autonomic sx - Positional?: n/a - Improves with: Sleep - Triggers: Certain smells - Family Hx: Mom Current preventive: Gabapentin for fibromyalgia / neuropathy, LTG for mood, metoprolol for heart Current abortive: Compazine PRN Previous preventives: Never been prescribed something specific for it, meds she has been on in the past include verapamil, metoprolol, propranolol. Previous abortives: n/a 3. Memory difficulty - Having trouble with short term recall - Often can't think of a word or its on the tip of her tongue and can't get it out - Might forget something that she did recently Current meds: - Wellbutrin 200 mg BID - Vyvanse 40 mg daily - Trintellix 20 mg daily - Lamotrigine 200 mg BID - Clonazepam 1 mg TID - Gabapentin 900 mg TID (FM, PN) - Metoprolol ER 25 mg daily - Cd/ld 25/100 TID Current Outpatient Medications Medication Sig Dispense Refill ferrous sulfate 325 mg (65 mg iron) tablet Take 1 tablet by mouth two times a day with meals. 180 tablet 1 carboxymethylcellulose (REFRESH CELLUVISC) 1 % ophthalmic solution Use 1 Drop in both eyes daily at bedtime. 6 Each 5 gabapentin (NEURONTIN) 600 mg tablet Take 1 tablet by mouth three times a day for 180 days. 270 tablet 1 metoprolol succinate ER (TOPROL XL) 25 mg 24 hr tablet Take 1 tablet by mouth once daily. 30 tablet 5 gabapentin (NEURONTIN) 300 mg capsule Take 1 capsule by mouth three times a day for 90 days. [address] (PROTONIX) 40 mg tablet Take 1 tablet by mouth two times a day. 180 tablet 1 lisinopril (ZESTRIL) 5 mg tablet Take 1 tablet by mouth once daily. 90 tablet 0 carbidopa-levodopa (SINEMET) 25-100 mg per tablet Take 1 tablet by mouth three times a day. 90 tablet 2 thyroid, pork, (ARMOUR THYROID) 60 mg tablet Take 1 tablet by mouth two times a day. 60 tablet 5 rosuvastatin (CRESTOR) 5 mg tablet Take 1 tablet by mouth daily at bedtime. 90 tablet 1 metFORMIN ER (GLUCOPHAGE XR) 500 mg 24 hr tablet Take 3 tablets by mouth daily with breakfast. 270 tablet 1 lamoTRIgine (LAMICTAL) 200 mg tablet Take 1 tablet by mouth two times a day. 60 tablet 5 nitroglycerin sublingual (NITROQUICK) 0.3 mg SL tablet Dissolve 1 tablet under the tongue every 5 minutes as needed. 25 tablet 3 Fenofibrate (LOFIBRA) 54 mg tablet Take 1 tablet by mouth once daily. 30 tablet 11 PEG 400-propylene glycol (SYSTANE ULTRA) 0.4-0.3 % ophthalmic solution Use 1 Drop in both eyes twice daily. 10 mL 3 ondansetron (ZOFRAN) 4 mg tablet Take 1 tablet by mouth once daily as needed. 10 tablet 1 VYVANSE 20 mg capsule 40 mg. prochlorperazine (COMPAZINE) 10 mg tablet Take 1 tablet by mouth twice daily as needed (migraine). 20 tablet 5 Aluminum Hydrox-Magnesium Carb (GAVISCON EXTRA STRENGTH) 254-237.5 mg/5 mL susp Take 15 mL by mouth at bedtime as needed. 335 mL 3 Blood-Glucose Meter (FREESTYLE LITE METER) monitoring kit Freestyle LITE Meter Kit -Test blood sugars one time daily. DX E11.40 1 Each 0 blood sugar diagnostic (FREESTYLE LITE STRIPS) test strip Test blood sugar(s) once times daily. Dx: E11.40 25 Strip 3 Lancets lancets Test blood sugar(s) one time daily. Dx: Other DM Code E11.40 Insulin: No 100 Each 11 acetaminophen (TYLENOL EXTRA STRENGTH) 500 mg tablet (more content not included)... [facility] 07-03-2023 History of Present illness Narrative FOLLOW UP NOTE Subjective Inés Orellana Workman is a 57 year old female who presents for follow up. CC: Tremor Summary of prior care: Right-handed female with a history of PTSD, bipolar disorder, fibromyalgia, migraine, and tremor amongst other conditions who presents for evaluation of tremor. 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 Complicated presentation primarily due to the large amount of neuropsychiatrically active medications she is on. Wellbutrin, Austedo, and Vyvanse can all contribute to tremor. Suggested tapering off Austedo for now, consider other changes in the future. For migraine, will do medrol dose ryne + compazine bridge treatment. Afterwards can take compazine. Hesitant to add additional prescription medications due to polypharmacy. Will try migraine supplements B2 and Mg. 10/2022 retry levodopa 100 TID for mixed tremor. HPI Current Issues 1. Tremor - Thinks carbidopa/levodopa is helpful for tremor - Still definitely has tremor, demonstrative - Can be hard to eat - No side effects to levodopa 2. Migraine - Has had more lately with weather changes - Compazine is effective - Estimates gets a couple a week - Doesn't take migraine vitamins Headache description: - Aura: Notes possibly seeing things hard to explain - Onset: More in the morning - Location: Typically one side or the other, uncommonly back of head - Pain: Pressure, sharp - A/w: (+)photophobia / (+)phonophobia / (+)nausea / (+/-)osmophobia / (-)autonomic sx - Positional?: n/a - Improves with: Sleep - Triggers: Certain smells - Family Hx: Mom Current preventive: Gabapentin for fibromyalgia / neuropathy, LTG for mood, metoprolol for heart Current abortive: Compazine PRN Previous preventives: Never been prescribed something specific for it, meds she has been on in the past include verapamil, metoprolol, propranolol. Previous abortives: n/a 3. Memory difficulty - Having trouble with short term recall - Often can't think of a word or its on the tip of her tongue and can't get it out - Might forget something that she did recently Current meds: - Wellbutrin 200 mg BID - Vyvanse 40 mg daily - Trintellix 20 mg daily - Lamotrigine 200 mg BID - Clonazepam 1 mg TID - Gabapentin 900 mg TID (FM, PN) - Metoprolol ER 25 mg daily - Cd/ld 25/100 TID Current Outpatient Medications Medication Sig Dispense Refill ferrous sulfate 325 mg (65 mg iron) tablet Take 1 tablet by mouth two times a day with meals. 180 tablet 1 carboxymethylcellulose (REFRESH CELLUVISC) 1 % ophthalmic solution Use 1 Drop in both eyes daily at bedtime. 6 Each 5 gabapentin (NEURONTIN) 600 mg tablet Take 1 tablet by mouth three times a day for 180 days. 270 tablet 1 metoprolol succinate ER (TOPROL XL) 25 mg 24 hr tablet Take 1 tablet by mouth once daily. 30 tablet 5 gabapentin (NEURONTIN) 300 mg capsule Take 1 capsule by mouth three times a day for 90 days. [address] (PROTONIX) 40 mg tablet Take 1 tablet by mouth two times a day. 180 tablet 1 lisinopril (ZESTRIL) 5 mg tablet Take 1 tablet by mouth once daily. 90 tablet 0 carbidopa-levodopa (SINEMET) 25-100 mg per tablet Take 1 tablet by mouth three times a day. 90 tablet 2 thyroid, pork, (ARMOUR THYROID) 60 mg tablet Take 1 tablet by mouth two times a day. 60 tablet 5 rosuvastatin (CRESTOR) 5 mg tablet Take 1 tablet by mouth daily at bedtime. 90 tablet 1 metFORMIN ER (GLUCOPHAGE XR) 500 mg 24 hr tablet Take 3 tablets by mouth daily with breakfast. 270 tablet 1 lamoTRIgine (LAMICTAL) 200 mg tablet Take 1 tablet by mouth two times a day. 60 tablet 5 nitroglycerin sublingual (NITROQUICK) 0.3 mg SL tablet Dissolve 1 tablet under the tongue every 5 minutes as needed. 25 tablet 3 Fenofibrate (LOFIBRA) 54 mg tablet Take 1 tablet by mouth once daily. 30 tablet 11 PEG 400-propylene glycol (SYSTANE ULTRA) 0.4-0.3 % ophthalmic solution Use 1 Drop in both eyes twice daily. 10 mL 3 ondansetron (ZOFRAN) 4 mg tablet Take 1 tablet by mouth once daily as needed. 10 tablet 1 VYVANSE 20 mg capsule 40 mg. prochlorperazine (COMPAZINE) 10 mg tablet Take 1 tablet by mouth twice daily as needed (migraine). 20 tablet 5 Aluminum Hydrox-Magnesium Carb (GAVISCON EXTRA STRENGTH) 254-237.5 mg/5 mL susp Take 15 mL by mouth at bedtime as needed. 335 mL 3 Blood-Glucose Meter (FREESTYLE LITE METER) monitoring kit Freestyle LITE Meter Kit -Test blood sugars one time daily. DX E11.40 1 Each 0 blood sugar diagnostic (FREESTYLE LITE STRIPS) test strip Test blood sugar(s) once times daily. Dx: E11.40 25 Strip 3 Lancets lancets Test blood sugar(s) one time daily. Dx: Other DM Code E11.40 Insulin: No 100 Each 11 acetaminophen (TYLENOL EXTRA STRENGTH) 500 mg tablet Take 2 tablets by mouth every 8 hours as needed for Pain. 40 tablet 0 COMPOUNDED PRESCRIPTION Initiate AutoPAP @ 10-20 cm of water with humidification mask (per patient preference) optional chin strap (if indicated) and lifetime supplies ([facility]) DX: KRZYSZTOF G47.33 1 Device 0 multivit with minerals/lutein (MULTIVITAMIN 50 PLUS ORAL) Take 1 tablet by mouth once daily. COMPOUNDED PRESCRIPTION Diabetic shoes One pair 1 Each 0 CPAP CPAP with humidification. Mask (per patient preference) optional chin strap (if indicated) , filters, tubing, humidifier and lifetime supplies. 1 Device 0 clonazePAM (KLONOPIN) 1 mg tablet 1 mg three times daily. vortioxetine (TRINTELLIX) 20 mg tablet Take 1 tablet by mouth once daily. aspirin 81 mg chewable tablet Take 1 tablet by mouth once daily. 0 CPAP Please provide supplies. Mask per preference, tubing, filters, humidity. Lifetime Supplies. Dx: G47.33 1 Device 0 COMPOUNDED PRESCRIPTION Lightweight wheelchair DX: DDD, neuropathy 1 Each 0 Wheel Chair issac DX: debility 1 Device 0 COMPOUNDED PRESCRIPTION EX-LARGE BLOOD PRESSURE CUFF KIT DX I10 1 Kit 0 Blood Pressure Test Kit-Large (QUICK RESPONSE BP MONITOR) kit 1 Kit once daily. 1 Kit 0 buPROPion HCl 200 mg 12 hr tablet Take 200 mg by mouth twice daily. No current facility-administered medications for this visit. REVIEW OF SYSTEMS Her ROS was positive for that mentioned in the HPI. Otherwise a 10-point ROS was completed and was negative. Objective OBJECTIVE 07/03/23 1510 BP: 123/73 BP Site: Left Arm BP Position: Sitting BP Cuff Size: Regular Adult Pulse: 60 SpO2: 97% Weight: 112.6 kg (248 lb 3.8 oz) Height: 170.2 cm (5' 7) General: General Appearance: Well appearing, alert, in no acute distress, well-hydrated, well nourished. Head: Normocephalic Neck: Supple Heart: RRR Neurologic Exam: Mental Status: She is alert. 05/23 though a little hesitant TVG, June ? Date, age 57, day ? Mon x, WORLD -> x?, 04/25 -> 03/23. She is fully oriented. Attention is intact. Memory is intact. Language shows normal comprehension and fluency. Affect is appropriate. Cranial Nerves: Extraocular movements show full and smooth pursuits. No nystagmus. Visual sanchez are full to confrontation. Facial activation is symmetric. Hearing is intact to conversation. There is no hypomimia. There is no hypophonia. There is no dysarthria. Tongue is midline. Palate elevates symmetrically. Shoulder shrug is normal. Motor: Muscle bulk is normal. Muscle power is full. No bradykinesia or rigidity. There are leg movements that look like severe akithisia or stereotypy - not present when legs straight or effectively distracted. Subtle right hand rest tremor. Jaw tremor resolved. In past writing sample without tremor. Spirals not overly consistent with tremor. Postural tremor increased from prior, previously subtle now moderate, worse in right hand which does not entrain, left hand seems to improve with distraction. No rigidity. No clear bradykinesia. Y-Y head tremor intermittent. Sensory: Intact to fine touch Coordination: Finger to nose is smooth without ataxia. Gait/station: Uses walker for ambulation, no tremor during gait DATA REVIEW Actual films/image/tracing reviewed and summarized as follows: n/a Old records reviewed and summarized as follows: TSH 0.372, B12 1338, folate 7.2, B1 131, A1c 6.5 MRI Brain 07/09/20 atrophy out of proportion to age Reviewed prior records from Donna Cagle / Dr. Mary / Dr. Ascencio / Jacqueline Johnson Assessment/Plan ASSESSMENT & PLAN: Inés Orellana Workman is a 57 year old right-handed female with a history of PTSD, bipolar disorder, fibromyalgia, migraine, and tremor amongst other conditions who presents for evaluation of tremor. 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 1. Tremor - Levodopa has helped, has some persistent features of demonstrative / functional tremor and possibly medication induced - Encouraged her to try to lower medications if able that can cause tremor (stimulant, Wellbutrin, high dose lamotrigine) 2. Migraine - Start b2 3. Memory - Low concern for degenerative etiology, more typical of psychological / medication induced Follow-up: 6 months Risks & Side Effects of Newly Prescribed Medication, Discussed with Patient: YES Jovanna Prince MD [facility] Neurology documented in this encounter [facility] 06-04-2023 Miscellaneous Notes Patient has been identified by name and date of : Yes, Patient phones for refill(s): Requested Prescriptions Pending Prescriptions Disp Refills carboxymethylcellulose (REFRESH CELLUVISC) 1 % ophthalmic solution 6 Each 5 Sig: Use 1 Drop in both eyes daily at bedtime. Date of last office visit in primary care: 04/07/2023 Date of next office visit in primary care: 11/11/2023 Please advise. Thank you. Nanette Katz LPN. documented in this encounter [facility] 06-02-2023 History of Present illness Narrative CC: Patient presents with: Sinus Problem: Cough, chest congestion x 1 week Patient has had a productive cough with sinus congestion for a week. Has tried multiple OTC treatments with little relief. Patient has history of pneumonia. Reports some discomfort in upper lung with deep inspiration. HPI: Inés Orellana Workman is a 57 year old female who presents to the office with complaint of cough, productive and sinus symptoms for a week. Symptoms are staying the same. Associated symptoms includes nasal congestion and cough. Denies body aches and fever. Treatments tried include OTC cold medicine with minor relief of symptoms. Sick contacts: no. History of asthma, frequent episodes of bronchitis, chronic bronchitis, bronchiectasis or COPD: No Smoker: No Seasonal/environmental allergies: Yes The ROS is otherwise negative. The patient's pmh, medications, allergies, and past visits are reviewed. PHYSICAL EXAM: BP 110/70 Pulse 77 Temp 36.1 C (97 F) Resp 20 Wt 113.4 kg (250 lb) LMP 11/20/2014 (Approximate) SpO2 95% BMI 39.16 kg/m General appearance: alert, cooperative, pleasant, in no acute distress Head: Normocephalic Eyes: PERRLA, EOM's intact, conjunctiva pink and moist, no icterus, sclera white, non-injected Ears: Right ear: External ear/canal- Normal, TM - clear with good landmarks. Left ear: External ear/canal- Normal, TM - clear with good landmarks Nose: clear. Oropharynx:moist without lesions, No erythema, exudates or tonsillar hypertrophy. Neck:supple and no adenopathy Heart: Negative. RRR without obvious murmur, gallop, or rubs. No ectopy. Lungs: clear to auscultation, without rales or wheeze, good air exchange PAST MEDICAL HISTORY Diagnosis Date Anxiety Powers's esophagus Bipolar 1 disorder (HCC) Dr. Orozco, psychiatry Chronic headaches Coronary-myocardial bridge DDD (degenerative disc disease) Depression 01/05/2015 Essential tremor TK tremor Fibromyalgia GERD (gastroesophageal reflux disease) HTN (hypertension) Hyperlipidemia Hypothyroid Liver fibrosis Mild CAD 08/22/2019 Neuropathy Non-melanoma skin cancer 03/08/2021 Obstructive sleep apnea PTSD (post-traumatic stress disorder) PVD (peripheral vascular disease) ([facility]) Sciatica Shoulder injury Type II or unspecified type diabetes mellitus without mention of complication, not stated as uncontrolled PAST SURGICAL HISTORY Procedure Laterality Date COLONOSCOPY FLX DX W/COLLJ SPEC WHEN PFRMD 01/10/2015 Colonoscopy COLONOSCOPY SCREENING 03/12/2023 5 year colonoscopy screening recommended due 03/22/2028 DIAGNOSTIC ARTHROSCOPY SHOULDER +- SYNOVIAL BX Left 05/21/2018 Left shoulder arthroscopic subacromial decompression, open distal clavicle excision and manipulation under anesthesia EGD 2019 ENDOMETRIAL ABLATION WITH US GUIDANCE 2007 ESOPHAGOGASTRODUODENOSCOPY TRANSORAL DIAGNOSTIC 01/10/2015 EGD ESOPHAGOGASTRODUODENOSCOPY TRANSORAL DIAGNOSTIC 01/10/2016 EGD (MAC) GASTRIC BYPASS HX 03/2016 gastric sleeve HYSTERECTOMY, REVISE VAGINA; COLPECTOMY 05/16/2020 INJECTION back injections x3 PAST SURGICAL HISTORY OF 05/2020 Partial Hysterectomy w/ bladder sling TUBAL LIGATION HX 1988 ALLERGIES Cat Hair Standardized Allergenic Extract, Cats, Citric Acid, Mold Spores, and Zolpidem MEDICATIONS gabapentin (NEURONTIN) 600 mg tablet^Take 1 tablet by mouth three times a day for 180 days.^Disp: 270 tablet^Rfl: 1 metoprolol succinate ER (TOPROL XL) 25 mg 24 hr tablet^Take 1 tablet by mouth once daily.^Disp: 30 tablet^Rfl: [address] (PROTONIX) 40 mg tablet^Take 1 tablet by mouth two times a day.^Disp: 180 tablet^Rfl: 1 lisinopril (ZESTRIL) 5 mg tablet^Take 1 tablet by mouth once daily.^Disp: 90 tablet^Rfl: 0 carbidopa-levodopa (SINEMET) 25-100 mg per tablet^Take 1 tablet by mouth three times a day.^Disp: 90 tablet^Rfl: 2 thyroid, pork, (ARMOUR THYROID) 60 mg tablet^Take 1 tablet by mouth two times a day.^Disp: 60 tablet^Rfl: 5 rosuvastatin (CRESTOR) 5 mg tablet^Take 1 tablet by mouth daily at bedtime.^Disp: 90 tablet^Rfl: 1 metFORMIN ER (GLUCOPHAGE XR) 500 mg 24 hr tablet^Take 3 tablets by mouth daily with breakfast.^Disp: 270 tablet^Rfl: 1 lamoTRIgine (LAMICTAL) 200 mg tablet^Take 1 tablet by mouth two times a day.^Disp: 60 tablet^Rfl: 5 nitroglycerin sublingual (NITROQUICK) 0.3 mg SL tablet^Dissolve 1 tablet under the tongue every 5 minutes as needed.^Disp: 25 tablet^Rfl: 3 carboxymethylcellulose (REFRESH CELLUVISC) 1 % ophthalmic solution^Use 1 Drop in both eyes daily at bedtime.^Disp: 6 Each^Rfl: 5 PEG 400-propylene glycol (SYSTANE ULTRA) 0.4-0.3 % ophthalmic solution^Use 1 Drop in both eyes twice daily.^Disp: 10 mL^Rfl: 3 ondansetron (ZOFRAN) 4 mg tablet^Take 1 tablet by mouth once daily as needed.^Disp: 10 tablet^Rfl: 1 VYVANSE 20 mg capsule^40 mg.^Disp: ^Rfl: prochlorperazine (COMPAZINE) 10 mg tablet^Take 1 tablet by mouth twice daily as needed (migraine).^Disp: 20 tablet^Rfl: 5 Aluminum Hydrox-Magnesium Carb (GAVISCON EXTRA STRENGTH) 254-237.5 mg/5 mL susp^Take 15 mL by mouth at bedtime as needed.^Disp: 335 mL^Rfl: 3 Blood-Glucose Meter (FREESTYLE LITE METER) monitoring kit^Freestyle LITE Meter Kit -Test blood sugars one time daily. DX E11.40^Disp: 1 Each^Rfl: 0 blood sugar diagnostic (FREESTYLE LITE STRIPS) test strip^Test blood sugar(s) once times daily. Dx: E11.40^Disp: 25 Strip^Rfl: 3 Lancets lancets^Test blood sugar(s) one time daily. Dx: Other DM Code E11.40 Insulin: No^Disp: 100 Each^Rfl: 11 acetaminophen (TYLENOL EXTRA STRENGTH) 500 mg tablet^Take 2 tablets by mouth every 8 hours as needed for Pain.^Disp: 40 tablet^Rfl: 0 COMPOUNDED PRESCRIPTION^Initiate AutoPAP @ 10-20 cm of water with humidification mask (per patient preference) optional chin strap (if indicated) and lifetime supplies ([facility]) DX: KRZYSZTOF G47.33^Disp: 1 Device^Rfl: 0 multivit with minerals/lutein (MULTIVITAMIN 50 PLUS ORAL)^Take 1 tablet by mouth once daily.^Disp: ^Rfl: COMPOUNDED PRESCRIPTION^Diabetic shoes One pair^Disp: 1 Each^Rfl: 0 CPAP^CPAP with humidification. Mask (per patient preference) optional chin strap (if indicated) , filters, tubing, humidifier and lifetime supplies.^Disp: 1 Device^Rfl: 0 clonazePAM (KLONOPIN) 1 mg tablet^1 mg three times daily.^Disp: ^Rfl: vortioxetine (TRINTELLIX) 20 mg tablet^Take 1 tablet by mouth once daily.^Disp: ^Rfl: aspirin 81 mg chewable tablet^Take 1 tablet by mouth once daily.^Disp: ^Rfl: 0 CPAP^Please provide supplies. Mask per preference, tubing, filters, humidity. Lifetime Supplies. Dx: G47.33^Disp: 1 Device^Rfl: 0 COMPOUNDED PRESCRIPTION^Lightweight wheelchair DX: DDD, neuropathy^Disp: 1 Each^Rfl: 0 Wheel Chair issac^DX: debility^Disp: 1 Device^Rfl: 0 COMPOUNDED PRESCRIPTION^EX-LARGE BLOOD PRESSURE CUFF KIT DX I10^Disp: 1 Kit^Rfl: 0 Blood Pressure Test Kit-Large (QUICK RESPONSE BP MONITOR) kit^1 Kit once daily.^Disp: 1 Kit^Rfl: 0 buPROPion HCl 200 mg 12 hr tablet^Take 200 mg by mouth twice daily.^Disp: ^Rfl: amoxicillin-clavulanate potassium (AUGMENTIN) 875-125 mg per tablet^Take 1 tablet by mouth two times a day for 7 days.^Disp: 14 tablet^Rfl: 0 gabapentin (NEURONTIN) 300 mg capsule^Take 1 capsule by mouth three times a day for 90 days.^Disp: 90 capsule^Rfl: 2 Fenofibrate (LOFIBRA) 54 mg tablet^Take 1 tablet by mouth once daily.^Disp: 30 tablet^Rfl: 11 FAMILY HISTORY Problem Relation Age of Onset Heart Father other (parkinson's) Father Diabetes Mother Stroke Mother Cancer Mother melanoma other (Other) Sister in infancy Mental illness Brother Alcohol/Drug Brother Stroke Maternal Grandmother Alzheimer's Disease Maternal Grandmother Diabetes Paternal Grandmother Bipolar disorder Daughter other (Other) Daughter behavioral disorder ADD/ADHD Son Bipolar disorder Son other (behavioral conduct disorder) Grandchild Glaucoma No Family History Macular Degen No Family History Social History Tobacco Use Smoking status: Former Packs/day: 1.50 Years: 11.00 Additional pack years: 0.00 Total pack years: 16.50 Types: Cigarettes Quit date: 03/23/1989 Years since quittin.2 Smokeless tobacco: Never Vaping Use Vaping Use: Never used Substance Use Topics Alcohol use: No Drug use: No DATA REVIEWED: Most recent imaging ASSESSMENT/PLAN: 1. Acute cough - ICD9: 786.2, ICD10: R05.1 (primary diagnosis) - XR CHEST 2V FRONTAL/LAT- negative 2. Rhinosinusitis - ICD9: 473.9, ICD10: J32.9 - Will begin treatment with Augmentin 875 mg PO BID for 7 days - Supportive care with plenty of fluids, rest, and analgesia prn. - May continue to use OTC medications as needed to help with symptoms Prescription instructions reviewed with patient.. Potential red flag symptoms discussed with the patient. Reviewed appropriate action plan to take if red flag symptoms occur. Patient agreeable to treatment plan. Joanne Kwok Supervising provider was present and guided the care of the patient for the entire session on this date. All documentation was reviewed and agreed upon. Rebecca Mireles APRN.CHILO documented in this encounter [facility] 06-02-2023 History of Present illness Narrative Radiology Service Progress Note PATIENT NAME: Inés Shanks DATE OF SERVICE: June 02, 2023 TIME: 3:24 PM PATIENT IDENTITY VERIFICATION COMPLETED USING TWO (2) IDENTIFIERS: Name and Date of confirmed by patient verbally. FALL SCREENING: Has the patient had 2 falls in the last year or 1 fall with injury or currently using an Ambulatory Assistive Device (Walker, Cane, Wheelchair, Crutches, etc.)? Yes, Patient High Risk for Falls What interventions were put in place to prevent falls during this visit? Instructed Patient to Call for Help if Needed, Offered Assistance with Transfers/Clothing, and Increased Observations by Caregivers PATIENT GENDER DATA: Female. status: : No status: NO. PATIENT RELEVANT IMPLANT DATA REVIEWED: Yes PATIENT PRESENTS WITH AN IMPLANTABLE OR ATTACHED ENVIRONMENTAL MONITORING TECHNICIAN: No RADIOLOGY DEPARTMENT: General X-ray: Exam(s) Completed: Chest X-Ray PERIPHERAL IV DATA: Not applicable SIGNED BY: RT Дмитрий(R) June 02, 2023 3:24 PM documented in this encounter [facility] 06-02-2023 History of Present illness Narrative 1. Type 2 diabetes mellitus without retinopathy (HCC) Risk of diabetic changes and vision loss can be minimized by tight control of blood sugar, blood pressure, and cholesterol levels. Educated patient to continue care with primary care doctor and/or web services architect to maintain optimum levels as they are important to avoid ocular complications. Encouraged patient to call the office immediately with any changes to vision or visual concerns. Advised to not wait until the next scheduled exam. 2. Combined forms of age-related cataract of both eyes Mild- monitor 3. Dry eye syndrome of bilateral lacrimal glands Continue gel nightly and artificial tears 2-3x daily 4. Presbyopia Finalized spec rx with higher add - minimal change Follow-up in 1 year for diabetic eye exam or sooner as needed Ros Ortiz, OD June 02, 2023 2:33 PM documented in this encounter [facility] 05-25-2023 Miscellaneous Notes Gabapentin renewed. Patient said she is out of medication. Pending rx to file. Please advise Patient has been identified by name and date of : Patient phones for refill(s): Requested Prescriptions Pending Prescriptions Disp Refills gabapentin (NEURONTIN) 600 mg tablet 270 tablet 1 Sig: Take 1 tablet by mouth three times a day for 180 days. Date of last office visit in primary care: 04/07/2023 Date of next office visit in primary care: 11/11/2023 Patient said she had asked for this Thursday no request for the 600 mg Please advise. Thank you. Ruby Benítez LPN. documented in this encounter [facility] 05-22-2023 Miscellaneous Notes Pt saw Dr. Holden on 04/07/23 and per his note, pt to follow up in 6 mons. Booked for 11/10 with Saumya Vargas. Gabapentin renewed. Patient is overdue for follow-up. Multiple comorbidities. Message left on MyChart for her to schedule follow-up appointment. Patient has been identified by name and date of : Yes Requested Prescriptions No prescriptions requested or ordered in this encounter RX INSTRUCTIONS: Patient aware RX will be sent to pharmacy. No need to notify patient. Called patient to be sure that this is what she was asking for and needed. ELVIN 04/07/23 No visit scheduled. Pina Springer LPN Patient requesting medication that is on list. gabapentin (NEURONTIN) 300 mg capsule documented in this encounter [facility] 05-22-2023 Miscellaneous Notes Metoprolol renewed. Patient has been identified by name and date of : Patient phones for refill(s): Requested Prescriptions Pending Prescriptions Disp Refills metoprolol succinate ER (TOPROL XL) 25 mg 24 hr tablet 30 tablet 5 Sig: Take 1 tablet by mouth once daily. Date of last office visit in primary care: 04/07/2023 Date of next office visit in primary care: Visit date not found Please advise. Thank you. Maxine Loomis. documented in this encounter [facility] 05-19-2023 Miscellaneous Notes Pantoprazole renewed for Powers's esophagus Patient requesting prescription be sent to [facility] pharmacy not [facility] pharmacy through My Chart message. Patient has been identified by name and date of : Patient phones for refill(s): Requested Prescriptions Pending Prescriptions Disp Refills pantoprazole DR (PROTONIX) 40 mg tablet 180 tablet 1 Sig: Take 1 tablet by mouth two times a day. Date of last office visit in primary care: 04/07/2023 Date of next office visit in primary care: None Please advise. Thank you. Dana Adkins RN. documented in this encounter [facility] 05-08-2023 Instructions Radha Andersen APRN.CNP - 05/08/2023 2:24 PM EST PLAN AND RECOMMENDATIONS: Increase fiber daily Avoid simple, highly processed carbohydrates as much as possible Compression stockings Follow up Dr Gallardo Echocardiogram in our office CONTACT INFORMATION: Radha Andersen APRN.CNP Cardiology Nurse Practitioner Section of Regional Cardiology [facility] Dept of Cardiovascular Medicine [facility] [place] [address] [place] [address] Office Office documented in this encounter [facility] 05-08-2023 History of Present illness Narrative Images from the original note were not included. Heart and V[facility] [place] [facility] Department of Cardiovascular Medicine SECTION OF CLINICAL CARDIOLOGY OUTPATIENT VISIT DATE May 08, 2023 OUTPATIENT VISIT TYPE ESTABLISHED PRIMARY CARE PHYSICIAN: Santhosh Holden [address] [place] [address] REFERRING PHYSICIAN: No referring provider defined for this encounter. CHIEF COMPLAINT: Follow Up (EKG 02/07/23 ) HISTORY OF PRESENT ILLNESS: Ms. Shanks is a 57 year old female with PMH of HTN, HLD, DM2, Hypothyroid, GERD, bipolar 1 disorder, KRZYSZTOF, anxiety/depression, hx of gastric bypass who presents today for a cardiovascular medicine follow-up visit for Dr Gallardo, last seen 01/2023. At that time he added fenofibrate for her elevated triglycerides. He most recent labs reflects significant improvement though not optimal. She does not prepare her meals nor does she manage her meds. Her daughter in law and son live downstairs from her and assist her. Has some dizziness, noticed usually when she gets up from chair or bed. Sometimes with walking and then when she stops. No LOC or near syncope. She denies shortness of breath, chest pain, palpitations, lightheadedness, lower extremity edema, PND, orthopnea, presyncope, syncope, or claudication symptoms Subjective PAST MEDICAL HISTORY Diagnosis Date Anxiety Powers's esophagus Bipolar 1 disorder (HCC) Dr. Orozco, psychiatry Chronic headaches Coronary-myocardial bridge DDD (degenerative disc disease) Depression 01/05/2015 Essential tremor TK tremor Fibromyalgia GERD (gastroesophageal reflux disease) HTN (hypertension) Hyperlipidemia Hypothyroid Liver fibrosis Mild CAD 08/22/2019 Neuropathy Non-melanoma skin cancer 03/08/2021 Obstructive sleep apnea PTSD (post-traumatic stress disorder) PVD (peripheral vascular disease) ([facility]) Sciatica Shoulder injury Type II or unspecified type diabetes mellitus without mention of complication, not stated as uncontrolled PAST SURGICAL HISTORY Procedure Laterality Date COLONOSCOPY FLX DX W/COLLJ SPEC WHEN PFRMD 01/10/2015 Colonoscopy COLONOSCOPY SCREENING 03/12/2023 5 year colonoscopy screening recommended due 03/22/2028 DIAGNOSTIC ARTHROSCOPY SHOULDER +- SYNOVIAL BX Left 05/21/2018 Left shoulder arthroscopic subacromial decompression, open distal clavicle excision and manipulation under anesthesia EGD 2019 ENDOMETRIAL ABLATION WITH US GUIDANCE 2007 ESOPHAGOGASTRODUODENOSCOPY TRANSORAL DIAGNOSTIC 01/10/2015 EGD ESOPHAGOGASTRODUODENOSCOPY TRANSORAL DIAGNOSTIC 01/10/2016 EGD (MAC) GASTRIC BYPASS HX 03/2016 gastric sleeve HYSTERECTOMY, REVISE VAGINA; COLPECTOMY 05/16/2020 INJECTION back injections x3 PAST SURGICAL HISTORY OF 05/2020 Partial Hysterectomy w/ bladder sling TUBAL LIGATION HX 1988 Social History Tobacco Use Smoking status: Former Packs/day: 1.50 Years: 11.00 Additional pack years: 0.00 Total pack years: 16.50 Types: Cigarettes Quit date: 03/23/1989 Years since quittin.1 Smokeless tobacco: Never Vaping Use Vaping Use: Never used Substance Use Topics Alcohol use: No Drug use: No FAMILY HISTORY Problem Relation Age of Onset Heart Father other (parkinson's) Father Diabetes Mother Stroke Mother Cancer Mother melanoma other (Other) Sister in infancy Mental illness Brother Alcohol/Drug Brother Stroke Maternal Grandmother Alzheimer's Disease Maternal Grandmother Diabetes Paternal Grandmother Bipolar disorder Daughter other (Other) Daughter behavioral disorder ADD/ADHD Son Bipolar disorder Son other (behavioral conduct disorder) Grandchild Glaucoma No Family History Macular Degen No Family History ALLERGIES: ALLERGIES Allergen Reactions Cat Hair Standardiz* Itching Eyes get really red, if cat is too close, can't breathe Cats Itching Eyes get really red, if cat is too close, can't breathe Citric Acid Intolerance Mold Spores Other: See Comments Flu like symptoms Zolpidem Other: See Comments MEDICATIONS: lisinopril (ZESTRIL) 5 mg tablet Take 1 tablet by mouth once daily. carbidopa-levodopa (SINEMET) 25-100 mg per tablet Take 1 tablet by mouth three times a day. thyroid, pork, (ARMOUR THYROID) 60 mg tablet Take 1 tablet by mouth two times a day. rosuvastatin (CRESTOR) 5 mg tablet Take 1 tablet by mouth daily at bedtime. metoprolol succinate ER (TOPROL XL) 25 mg 24 hr tablet Take 1 tablet by mouth once daily. gabapentin (NEURONTIN) 300 mg capsule Take 1 capsule by mouth three times a day for 30 days. metFORMIN ER (GLUCOPHAGE XR) 500 mg 24 hr tablet Take 3 tablets by mouth daily with breakfast. lamoTRIgine (LAMICTAL) 200 mg tablet Take 1 tablet by mouth two times a day. nitroglycerin sublingual (NITROQUICK) 0.3 mg SL tablet Dissolve 1 tablet under the tongue every 5 minutes as needed. Fenofibrate (LOFIBRA) 54 mg tablet Take 1 tablet by mouth once daily. carboxymethylcellulose (REFRESH CELLUVISC) 1 % ophthalmic solution Use 1 Drop in both eyes daily at bedtime. PEG 400-propylene glycol (SYSTANE ULTRA) 0.4-0.3 % ophthalmic solution Use 1 Drop in both eyes twice daily. ferrous sulfate 325 mg (65 mg iron) tablet Take 1 tablet by mouth twice daily with meals. pantoprazole DR (PROTONIX) 40 mg tablet Take 1 tablet by mouth twice daily. gabapentin (NEURONTIN) 600 mg tablet Take 1 tablet by mouth three times daily for 180 days. ondansetron (ZOFRAN) 4 mg tablet Take 1 tablet by mouth once daily as needed. VYVANSE 20 mg capsule prochlorperazine (COMPAZINE) 10 mg tablet Take 1 tablet by mouth twice daily as needed (migraine). Aluminum Hydrox-Magnesium Carb (GAVISCON EXTRA STRENGTH) 254-237.5 mg/5 mL susp Take 15 mL by mouth at bedtime as needed. Blood-Glucose Meter (FREESTYLE LITE METER) monitoring kit Freestyle LITE Meter Kit -Test blood sugars one time daily. DX E11.40 blood sugar diagnostic (FREESTYLE LITE STRIPS) test strip Test blood sugar(s) once times daily. Dx: E11.40 Lancets lancets Test blood sugar(s) one time daily. Dx: Other DM Code E11.40 Insulin: No acetaminophen (TYLENOL EXTRA STRENGTH) 500 mg tablet Take 2 tablets by mouth every 8 hours as needed for Pain. COMPOUNDED PRESCRIPTION Initiate AutoPAP @ 10-20 cm of water with humidification mask (per patient preference) optional chin strap (if indicated) and lifetime supplies ([facility]) DX: KRZYSZTOF G47.33 multivit with minerals/lutein (MULTIVITAMIN 50 PLUS ORAL) Take 1 tablet by mouth once daily. COMPOUNDED PRESCRIPTION Diabetic shoes One pair CPAP CPAP with humidification. Mask (per patient preference) optional chin strap (if indicated) , filters, tubing, humidifier and lifetime supplies. clonazePAM (KLONOPIN) 1 mg tablet 1 mg three times daily. vortioxetine (TRINTELLIX) 20 mg tablet Take 1 tablet by mouth once daily. aspirin 81 mg chewable tablet Take 1 tablet by mouth once daily. CPAP Please provide supplies. Mask per preference, tubing, filters, humidity. Lifetime Supplies. Dx: G47.33 COMPOUNDED PRESCRIPTION Lightweight wheelchair DX: DDD, neuropathy Wheel Chair issac DX: debility COMPOUNDED PRESCRIPTION EX-LARGE BLOOD PRESSURE CUFF KIT DX I10 Blood Pressure Test Kit-Large (QUICK RESPONSE BP MONITOR) kit 1 Kit once daily. buPROPion HCl 200 mg 12 hr tablet Take 200 mg by mouth twice daily. REVIEW OF SYSTEMS: CARD: See HPI GENERAL: Negative for: Weight loss or gain, Fever and/or Chills HEENT: Negative for: Headache, Impaired Vision, Glasses, Hearing Impairment, Ringing in Ears, Nosebleeds, Bleeding Gums NECK: Negative for: Swelling, Pain, Stiffness RESPIRATORY: Negative for: Cough, Blood in Sputum, Shortness of breath, Wheezing, Apnea GASTROINTESTINAL: Negative for: Nausea, Vomiting, Diarrhea, Blood in stool, or Dark black stools MUSCULOSKELETAL: Negative for: Muscle or joint pain, Stiffness , Joint swelling NEUROLOGIC: Negative for: focal numbness/weakness, headaches, visual changes, ataxia, speech/language loss HEMATOLOGICAL/LYMPHATIC: Negative for: Easy bruising , Easy bleeding Objective PHYSICAL EXAMINATION: LMP 11/20/2014 (Approximate) General: Well appearing, in no acute distress. Skin: No clubbing, no cyanosis. Eyes: Extra ocular movements intact Neck: No jugular venous distention, no carotid bruits, carotids have a normal upstroke. Lungs: Clear to auscultation bilaterally, no wheezing or rhonchi. Heart: Regular rhythm, S1, S2 normal, no murmur. No peripheral edema . Grade 2/4 distal pulses bilaterally. Neuro: Oriented to person, place and time, alert, cooperative, uses rolator to ambulate CARDIOVASCULAR MEDICINE TESTING: No Cardiovascular testing perfomed today. Last EKG Result Conclusion EKG Collected: 02/07/2023 1:11 AM (Final result) Impression: NORMAL SINUS RHYTHM NONSPECIFIC T WAVE ABNORMALITY PROLONGED QT ABNORMAL ECG WHEN COMPARED WITH ECG OF 19-MAY-2018 10:48, T WAVE INVERSION NO LONGER EVIDENT IN INFERIOR LEADS Confirmed by MD GALLARDO GREGORY () on 03/06/2023 4:18:05 PM There were no tests performed for review. I personally interviewed, confirmed and edited the above information if obtained by others. Conclusion: (I25.10) Mild CAD (primary encounter diagnosis) Comment: has coronary myocardial bridge, no chest pain, but has some shortness of breath with walking Plan: ECHO (R06.02) SOB (shortness of breath) Comment: will update echo Plan: ECHO (I10) Primary hypertension Comment: stable; Plan: no change (E78.49) Other hyperlipidemia Comment: improved from previous Plan: continue same meds. Unclear if further lifestyle adjustments can be made. PLAN AND RECOMMENDATIONS: Increase fiber daily Avoid simple, highly processed carbohydrates as much as possible Compression stockings Follow up Dr Gallardo Echocardiogram in our office CONTACT INFORMATION: Radha Andersen APRN.CHILO Cardiology Nurse Practitioner Section of Regional Cardiology [place] Dept of Cardiovascular Medicine [facility] Heart [facility] V[facility] [place] [address] [place] [address] Office Office documented in this encounter [facility] 05-04-2023 Miscellaneous Notes Patient is scheduled in June with Dr. Prince for follow up. Requested Prescriptions Pending Prescriptions Disp Refills carbidopa-levodopa (SINEMET) 25-100 mg per tablet 90 tablet 2 Sig: Take 1 tablet by mouth three times a day. documented in this encounter [facility] 05-04-2023 Miscellaneous Notes Patient has been identified by name and date of : Yes, Provider Dr. Holden Date May 04, 2023 Time 10:28 AM Patient mycharts for refill(s): Requested Prescriptions Pending Prescriptions Disp Refills lisinopril (ZESTRIL) 5 mg tablet 90 tablet 0 Sig: Take 1 tablet by mouth once daily. Date of last office visit in primary care: 04/07/2023 Date of next office visit in primary care: Visit date not found (to f/u in 6 months). Last Rx: 02/05/23 #90 w/0. Update pt via Gaming for [place]t once sent. Please advise. Thank you. Dulce Diallo Ma. documented in this encounter [facility] 04-24-2023 Miscellaneous Notes Patient has been identified by name and date of : Yes, Provider Navin Date 04/24/23 Time 01:19 pm Patient phones for refill(s): Requested Prescriptions Pending Prescriptions Disp Refills thyroid, pork, (ARMOUR THYROID) 60 mg tablet 60 tablet 5 Sig: Take 1 tablet by mouth two times a day. rosuvastatin (CRESTOR) 5 mg tablet 90 tablet 1 Sig: Take 1 tablet by mouth daily at bedtime. Date of last office visit in primary care: 04/07/2023 Date of next office visit in primary care: Visit date not found Please advise. Thank you. Flavia Leon Ma. documented in this encounter [facility] 02-19-2023 Miscellaneous Notes Refill(s) request: Requested Prescriptions Pending Prescriptions Disp Refills acetaminophen (TYLENOL EXTRA STRENGTH) 500 mg tablet 40 tablet 0 Sig: Take 2 tablets by mouth every 8 hours as needed for pain. Request from: Patient Last order: Disp Refills Start End acetaminophen (TYLENOL EXTRA STRENGTH) 500 mg tablet 40 tablet 0 06/26/2020 -- Sig: Take 2 tablets by mouth every 8 hours as needed for Pain. Sent to pharmacy as: acetaminophen (TYLENOL EXTRA STRENGTH) 500 mg tablet Class: Normal Route: ORAL Order: [id number] E-Prescribing Status: Receipt confirmed by pharmacy (06/26/2020 3:38 PM EDT) Last visit: Office visit with provider Christy Carmona on date 08/16/20 A&P: ASSESMENT: Inés Orellana Workman is a 54 year old female who is post-op; stable and doing well post-operative course uncomplicated PLAN: May resume normal activities. May resume intercourse. Operative findings and pathology report were reviewed today. Follow up prn Patient expressed understanding. Future appointments: Future Appointments Date Time Provider Department Center 03/11/2023 12:00 PM Jovanna Prince MD [facility] 03/12/2023 8:00 AM Susanna Schneider MD [facility] 04/07/2023 1:40 PM Santhosh Holden MD [facility] 05/08/2023 2:30 PM Radha Andersen APRN.[facility] [place] [facility] 05/21/2023 1:00 PM Dru Sahu [facility] 06/02/2023 2:15 PM Ros Ortiz OD [facility] Appointment scheduled: No follow-up visit currently scheduled. Action taken: MyChart message sent - patient not seen since 07/2020 and requesting a refill of postop tylenol. Please call office to speak with office and schedule a visit if refill is needed. Elle Strong RN February 19, 2023 2:12 PM documented in this encounter [facility] 02-18-2023 Miscellaneous Notes Rx request is being addressed in another encounter. Jairon Schneider TRANSPORTATION TECHNICIAN documented in this encounter [facility] 02-18-2023 Miscellaneous Notes Rs request is being addressed in another encounter. Jairon Schneider TRANSPORTATION TECHNICIAN documented in this encounter [facility] 02-18-2023 Miscellaneous Notes Last refill Lamictal 06/08/17 Qty: 60 with 5 refills Last refill metformin 11/26/22 Qty: 270 with 1 refill Last refill gabapentin 300 mg 11/19/22 Qty: 90 with 2 refills ELVIN 12/05/22 NOV 04/07/23 Jairon Schneider TRANSPORTATION TECHNICIAN documented in this encounter [facility] 02-06-2023 Note HNO ID: [id number] Author: Farhat Gallardo, DO Service: ? Author Type: Physician Type: Progress Notes Filed: 02/06/2023 3:50 PM Note Text: [facility] SECTION OF REGIONAL CARDIOLOGY [facility] OUTPATIENT VISIT DATE February 06, 2023 PRIMARY CARE PHYSICIAN: Santhosh Holden [address] [place] [address] HISTORY OF PRESENT ILLNESS: Ms. Shanks is a 57 year old female. 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 She notes occasional feelings of discomfort as previous for which nitroglycerin helps. She denies dyspnea, orthopnea, paroxysmal nocturnal dyspnea, palpitations per se, near-syncope or syncope. Recent cholesterol profile was unable to obtain an LDL due to her degree of triglycerides. PLAN AND RECOMMENDATIONS: The patient overall appears stable without apparent symptoms that would suggest angina or cardiac decompensation. Heart rate and blood pressure are favorable. Her triglycerides are elevated for which we will start a low-dose fenofibrate due to history of liver abnormality. We will recheck lipids, hepatic function in 2 months with follow-up shortly thereafter. Dietary and lifestyle modification was otherwise reemphasized to facilitate risk factor reduction. Vitals: BP 118/70 Pulse 68 Ht 170.2 cm (5' 7) Wt 117 kg (257 lb 15 oz) LMP 11/20/2014 (Approximate) SpO2 96% BMI 40.40 kg/m? Physical Exam Vitals reviewed. Constitutional: General: She is not in acute distress. Appearance: Normal appearance. She is well-developed. HENT: Head: Normocephalic and atraumatic. Nose: Nose normal. Eyes: General: No scleral icterus. Right eye: No discharge. Left eye: No discharge. Pupils: Pupils are equal, round, and reactive to light. Neck: Thyroid: No thyromegaly. Vascular: No carotid bruit or JVD. Cardiovascular: Rate and Rhythm: Normal rate and regular rhythm. Heart sounds: Normal heart sounds. No murmur heard. No friction rub. No gallop. Pulmonary: Effort: Pulmonary effort is normal. No respiratory distress. Breath sounds: Normal breath sounds. No wheezing or rales. Abdominal: General: Bowel sounds are normal. Palpations: Abdomen is soft. Musculoskeletal: General: Normal range of motion. Cervical back: Normal range of motion and neck supple. Skin: General: Skin is warm and dry. Capillary Refill: Capillary refill takes less than 2 seconds. Coloration: Skin is not pale. Neurological: Mental Status: She is alert and oriented to person, place, and time. Cranial Nerves: No cranial nerve deficit. Psychiatric: Behavior: Behavior normal. Thought Content: Thought content normal. Judgment: Judgment normal. Review of Systems Constitutional: Positive for fatigue. Negative for activity change. HENT: Negative for ear pain and facial swelling. Eyes: Negative for pain and discharge. Respiratory: Negative for chest tightness and shortness of breath. Cardiovascular: Negative for chest pain, palpitations and leg swelling. Gastrointestinal: Negative for abdominal pain, blood in stool, nausea and vomiting. Endocrine: Negative for cold intolerance and heat intolerance. Genitourinary: Negative for frequency and hematuria. Musculoskeletal: Positive for arthralgias. Negative for gait problem. Skin: Negative for color change, pallor and rash. Allergic/Immunologic: Negative for immunocompromised state. Neurological: Negative for dizziness, syncope, light-headedness and headaches. Hematological: Negative for adenopathy. Does not bruise/bleed easily. Psychiatric/Behavioral: Negative for confusion. The patient is not nervous/anxious. PAST MEDICAL HISTORY Diagnosis Date Anxiety Powers's esophagus Bipolar 1 disorder (HCC) Dr. Orozco, psychiatry Chronic headaches Coronary-myocardial bridge DDD (degenerative disc disease) Depression 01/05/2015 Essential tremor TK tremor Fibromyalgia GERD (gastroesophageal reflux disease) HTN (hypertension) Hyperlipidemia Hypothyroid Liver fibrosis Mild CAD 08/22/2019 Neuropathy Non-melanoma skin cancer 03/08/2021 Obstructive sleep apnea PTSD (post-traumatic stress disorder) PVD (peripheral vascular disease) (HCC) Sciatica Shoulder injury Type II or unspecified type diabetes mellitus without mention of complication, not stated as uncontrolled PAST SURGICAL HISTORY Procedure Laterality Date COLONOSCOPY FLX DX W/COLLJ SPEC WHEN PFRMD 01/10/2015 Colonoscopy DIAGNOSTIC ARTHROSCOPY SHOULDER +- SYNOVIAL BX Left 05/21/2018 Left shoulder arthroscopic subacromial decompression, open distal clavicle excision and manipulation under anesthesia EGD 2018 ENDOMETRIAL ABLATION WITH US GUIDANCE 2007 ESOPHAGOGASTRODUODENOSCOPY TRANSORAL DIAGNOSTIC 01/10/2015 (more content not included)... [facility] 02-06-2023 History of Present illness Narrative Images from the original note were not included. [facility] SECTION OF REGIONAL CARDIOLOGY [facility] OUTPATIENT VISIT DATE February 06, 2023 PRIMARY CARE PHYSICIAN: Santhosh Holden [address] [place] [address] HISTORY OF PRESENT ILLNESS: Ms. Shanks is a 57 year old female. 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 She notes occasional feelings of discomfort as previous for which nitroglycerin helps. She denies dyspnea, orthopnea, paroxysmal nocturnal dyspnea, palpitations per se, near-syncope or syncope. Recent cholesterol profile was unable to obtain an LDL due to her degree of triglycerides. PLAN AND RECOMMENDATIONS: The patient overall appears stable without apparent symptoms that would suggest angina or cardiac decompensation. Heart rate and blood pressure are favorable. Her triglycerides are elevated for which we will start a low-dose fenofibrate due to history of liver abnormality. We will recheck lipids, hepatic function in 2 months with follow-up shortly thereafter. Dietary and lifestyle modification was otherwise reemphasized to facilitate risk factor reduction. Vitals: BP 118/70 Pulse 68 Ht 170.2 cm (5' 7) Wt 117 kg (257 lb 15 oz) LMP 11/20/2014 (Approximate) SpO2 96% BMI 40.40 kg/m Physical Exam Vitals reviewed. Constitutional: General: She is not in acute distress. Appearance: Normal appearance. She is well-developed. HENT: Head: Normocephalic and atraumatic. Nose: Nose normal. Eyes: General: No scleral icterus. Right eye: No discharge. Left eye: No discharge. Pupils: Pupils are equal, round, and reactive to light. Neck: Thyroid: No thyromegaly. Vascular: No carotid bruit or JVD. Cardiovascular: Rate and Rhythm: Normal rate and regular rhythm. Heart sounds: Normal heart sounds. No murmur heard. No friction rub. No gallop. Pulmonary: Effort: Pulmonary effort is normal. No respiratory distress. Breath sounds: Normal breath sounds. No wheezing or rales. Abdominal: General: Bowel sounds are normal. Palpations: Abdomen is soft. Musculoskeletal: General: Normal range of motion. Cervical back: Normal range of motion and neck supple. Skin: General: Skin is warm and dry. Capillary Refill: Capillary refill takes less than 2 seconds. Coloration: Skin is not pale. Neurological: Mental Status: She is alert and oriented to person, place, and time. Cranial Nerves: No cranial nerve deficit. Psychiatric: Behavior: Behavior normal. Thought Content: Thought content normal. Judgment: Judgment normal. Review of Systems Constitutional: Positive for fatigue. Negative for activity change. HENT: Negative for ear pain and facial swelling. Eyes: Negative for pain and discharge. Respiratory: Negative for chest tightness and shortness of breath. Cardiovascular: Negative for chest pain, palpitations and leg swelling. Gastrointestinal: Negative for abdominal pain, blood in stool, nausea and vomiting. Endocrine: Negative for cold intolerance and heat intolerance. Genitourinary: Negative for frequency and hematuria. Musculoskeletal: Positive for arthralgias. Negative for gait problem. Skin: Negative for color change, pallor and rash. Allergic/Immunologic: Negative for immunocompromised state. Neurological: Negative for dizziness, syncope, light-headedness and headaches. Hematological: Negative for adenopathy. Does not bruise/bleed easily. Psychiatric/Behavioral: Negative for confusion. The patient is not nervous/anxious. PAST MEDICAL HISTORY Diagnosis Date Anxiety Powers's esophagus Bipolar 1 disorder (HCC) Dr. Orozco, psychiatry Chronic headaches Coronary-myocardial bridge DDD (degenerative disc disease) Depression 01/05/2015 Essential tremor TK tremor Fibromyalgia GERD (gastroesophageal reflux disease) HTN (hypertension) Hyperlipidemia Hypothyroid Liver fibrosis Mild CAD 08/22/2019 Neuropathy Non-melanoma skin cancer 03/08/2021 Obstructive sleep apnea PTSD (post-traumatic stress disorder) PVD (peripheral vascular disease) ([facility]) Sciatica Shoulder injury Type II or unspecified type diabetes mellitus without mention of complication, not stated as uncontrolled PAST SURGICAL HISTORY Procedure Laterality Date COLONOSCOPY FLX DX W/COLLJ SPEC WHEN PFRMD 01/10/2015 Colonoscopy DIAGNOSTIC ARTHROSCOPY SHOULDER +- SYNOVIAL BX Left 05/21/2018 Left shoulder arthroscopic subacromial decompression, open distal clavicle excision and manipulation under anesthesia EGD 2019 ENDOMETRIAL ABLATION WITH US GUIDANCE 2007 ESOPHAGOGASTRODUODENOSCOPY TRANSORAL DIAGNOSTIC 01/10/2015 EGD ESOPHAGOGASTRODUODENOSCOPY TRANSORAL DIAGNOSTIC 01/10/2016 EGD (MAC) GASTRIC BYPASS HX 03/2016 gastric sleeve HYSTERECTOMY, REVISE VAGINA; COLPECTOMY 05/16/2020 INJECTION back injections x3 PAST SURGICAL HISTORY OF 05/2020 Partial Hysterectomy w/ bladder sling TUBAL LIGATION HX 1988 Social History Tobacco Use Smoking status: Former Packs/day: 1.50 Years: 11.00 Additional pack years: 0.00 Total pack years: 16.50 Types: Cigarettes Quit date: 03/23/1989 Years since quittin.8 Smokeless tobacco: Never Vaping Use Vaping Use: Never used Substance Use Topics Alcohol use: No Drug use: No FAMILY HISTORY Problem Relation Age of Onset Heart Father other (parkinson's) Father Diabetes Mother Stroke Mother Cancer Mother melanoma other (Other) Sister in infancy Mental illness Brother Alcohol/Drug Brother Stroke Maternal Grandmother Alzheimer's Disease Maternal Grandmother Diabetes Paternal Grandmother Bipolar disorder Daughter other (Other) Daughter behavioral disorder ADD/ADHD Son Bipolar disorder Son other (behavioral conduct disorder) Grandchild Glaucoma No Family History Macular Degen No Family History ALLERGIES Allergen Reactions Cat Hair Standardiz* Itching Eyes get really red, if cat is too close, can't breathe Cats Itching Eyes get really red, if cat is too close, can't breathe Citric Acid Intolerance Mold Spores Other: See Comments Flu like symptoms Zolpidem Other: See Comments CURRENT MEDICATIONS: lisinopril (ZESTRIL) 5 mg tablet Take 1 tablet by mouth once daily. thyroid, pork, (ARMOUR THYROID) 60 mg tablet Take 1 tablet by mouth two times a day. carboxymethylcellulose (REFRESH CELLUVISC) 1 % ophthalmic solution Use 1 Drop in both eyes daily at bedtime. PEG 400-propylene glycol (SYSTANE ULTRA) 0.4-0.3 % ophthalmic solution Use 1 Drop in both eyes twice daily. metFORMIN ER (GLUCOPHAGE XR) 500 mg 24 hr tablet Take 3 tablets by mouth daily with breakfast. ferrous sulfate 325 mg (65 mg iron) tablet Take 1 tablet by mouth twice daily with meals. pantoprazole DR (PROTONIX) 40 mg tablet Take 1 tablet by mouth twice daily. gabapentin (NEURONTIN) 600 mg tablet Take 1 tablet by mouth three times daily for 180 days. gabapentin (NEURONTIN) 300 mg capsule Take 1 capsule by mouth three times daily for 30 days. carbidopa-levodopa (SINEMET) 25-100 mg per tablet Take 1 tablet by mouth three times daily. rosuvastatin (CRESTOR) 5 mg tablet Take 1 tablet by mouth daily at bedtime. tiZANidine (ZANAFLEX) 4 mg tablet Take 1 tablet by mouth every 8 hours as needed. ondansetron (ZOFRAN) 4 mg tablet Take 1 tablet by mouth once daily as needed. metoprolol succinate ER (TOPROL XL) 25 mg 24 hr tablet Take 1 tablet by mouth once daily. VYVANSE 20 mg capsule prochlorperazine (COMPAZINE) 10 mg tablet Take 1 tablet by mouth twice daily as needed (migraine). Aluminum Hydrox-Magnesium Carb (GAVISCON EXTRA STRENGTH) 254-237.5 mg/5 mL susp Take 15 mL by mouth at bedtime as needed. Blood-Glucose Meter (FREESTYLE LITE METER) monitoring kit Freestyle LITE Meter Kit -Test blood sugars one time daily. DX E11.40 blood sugar diagnostic (FREESTYLE LITE STRIPS) test strip Test blood sugar(s) once times daily. Dx: E11.40 Lancets lancets Test blood sugar(s) one time daily. Dx: Other DM Code E11.40 Insulin: No acetaminophen (TYLENOL EXTRA STRENGTH) 500 mg tablet Take 2 tablets by mouth every 8 hours as needed for Pain. nitroglycerin sublingual (NITROQUICK) 0.3 mg SL tablet Dissolve 0.3 mg under the tongue every 5 minutes as needed. COMPOUNDED PRESCRIPTION Initiate AutoPAP @ 10-20 cm of water with humidification mask (per patient preference) optional chin strap (if indicated) and lifetime supplies ([facility]) DX: KRZYSZTOF G47.33 multivit with minerals/lutein (MULTIVITAMIN 50 PLUS ORAL) Take 1 tablet by mouth once daily. CPAP CPAP with humidification. Mask (per patient preference) optional chin strap (if indicated) , filters, tubing, humidifier and lifetime supplies. lamoTRIgine (LAMICTAL) 200 mg tablet Take 1 tablet by mouth twice daily. clonazePAM (KLONOPIN) 1 mg tablet 1 mg three times daily. vortioxetine (TRINTELLIX) 20 mg tablet Take 1 tablet by mouth once daily. CPAP Please provide supplies. Mask per preference, tubing, filters, humidity. Lifetime Supplies. Dx: G47.33 COMPOUNDED PRESCRIPTION Lightweight wheelchair DX: DDD, neuropathy Wheel Chair issac DX: debility COMPOUNDED PRESCRIPTION EX-LARGE BLOOD PRESSURE CUFF KIT DX I10 Blood Pressure Test Kit-Large (QUICK RESPONSE BP MONITOR) kit 1 Kit once daily. buPROPion HCl 200 mg 12 hr tablet Take 200 mg by mouth twice daily. cephALEXin (KEFLEX) 500 mg capsule Take 1 capsule by mouth three times daily. (Patient not taking: Reported on 02/06/2023) COMPOUNDED PRESCRIPTION Diabetic shoes One pair aspirin 81 mg chewable tablet Take 1 tablet by mouth once daily. (Patient not taking: Reported on 02/06/2023) EKG performed today demonstrates sinus rhythm at [address]-T wave abnormality. Similar to previous by direct comparison. Farhat Gallardo DO, FACC, [facility] Chief Media Officer, [facility] Chief Media Officer, [facility] Cardiac Rehabilitation Chief Media Officer, [facility] Chief Media Officer, [facility] Chief Media Officer, [facility] Clinical Equipment Operator/Laborer/Supervisor Profressor of Medicine, [facility] Staff Dredging Inspector, Vu Campbell Department of Cardiovascular Medicine/Heart and Vascular [place], [facility] Please note: This note has been produced using speech recognition software and may contain errors related to that system including herminia, punctuation, spelling, words, gender and phrases that may be inappropriate. documented in this encounter [facility] 02-05-2023 Miscellaneous Notes Pt requesting medication below to go to [facility]. Was sent to the wrong pharmacy. Patient has been identified by name and date of : Yes Requested Prescriptions Pending Prescriptions Disp Refills lisinopril (ZESTRIL) 5 mg tablet 90 tablet 0 Sig: Take 1 tablet by mouth once daily. RX INSTRUCTIONS: Patient aware RX will be sent to pharmacy. No need to notify patient. Vicki Barahona documented in this encounter [facility] 01-19-2023 Miscellaneous Notes Patient has been identified by name and date of : Yes Requested Prescriptions Pending Prescriptions Disp Refills thyroid, pork, (ARMOUR THYROID) 60 mg tablet 60 tablet 5 Sig: Take 1 tablet by mouth two times a day. RX INSTRUCTIONS: Patient aware RX will be sent to pharmacy. No need to notify patient. Patient last office visit: 12/05/22 Patient next office visit: 04/07/23 Elle Andrews MA documented in this encounter [facility] 12-11-2022 History of Present illness Narrative HISTORY AND PHYSICAL Inés Shanks 1965 REFERRING PHYSICIAN: Santhosh Holden MD CHIEF COMPLAINT: Consult (Barretts esophagus) HPI: The patient is a 57 year old female referred for endoscopy. Per my office visit from 01/22/21: The patient is a 55 year old female referred for endoscopy. Inés notes no colon complaints. Patient denies any change in bowel habits, weight changes, blood in stools, black tarry stools or abdominal pain. Denies family history of colon cancer. The patient NOTES a history of Powers's esophagus, with recent worsening reflux symptoms. Inés has undergone prior endoscopy. Most recent EGD 03/25/[address] Nunn with findings of short-segment Powers's, 2 year repeat recommended. Last colonoscopy 01/10/15 with repeat recommended in 5 years due to suboptimal bowel prep. Patient's past medical history is significant for myocardial bridge, bipolar 1 disorder, tremor, hypertension, type iI diabetes mellitus. Patient follows with Dr. Holden for her chronic medical conditions. She follows with Dr. Gallardo in cardiology and is due for routine cardiac follow up. Reports history of intermittent chest discomfort in the past for which she has taken nitroglycerin. Denies problems with sedation in the past. Plan was for EGD and colonoscopy at that time, however patient had cancelled due to illness. Patient returns to reschedule for upper and lower endoscopy. Patient's past medical history, past surgical history, medications and allergies are up to date as of this visit. PAST MEDICAL HISTORY Diagnosis Date Anxiety Powers's esophagus Bipolar 1 disorder (HCC) Dr. Orozco, psychiatry Chronic headaches Coronary-myocardial bridge DDD (degenerative disc disease) Depression 01/05/2015 Essential tremor TK tremor Fibromyalgia GERD (gastroesophageal reflux disease) HTN (hypertension) Hyperlipidemia Hypothyroid Liver fibrosis Mild CAD 08/22/2019 Neuropathy Non-melanoma skin cancer 03/08/2021 Obstructive sleep apnea PTSD (post-traumatic stress disorder) PVD (peripheral vascular disease) (HCC) Sciatica Shoulder injury Type II or unspecified type diabetes mellitus without mention of complication, not stated as uncontrolled PAST SURGICAL HISTORY Procedure Laterality Date COLONOSCOPY FLX DX W/COLLJ SPEC WHEN PFRMD 01/10/2015 Colonoscopy DIAGNOSTIC ARTHROSCOPY SHOULDER +- SYNOVIAL BX Left 05/21/2018 Left shoulder arthroscopic subacromial decompression, open distal clavicle excision and manipulation under anesthesia EGD 2019 ENDOMETRIAL ABLATION WITH US GUIDANCE 2007 ESOPHAGOGASTRODUODENOSCOPY TRANSORAL DIAGNOSTIC 01/10/2015 EGD ESOPHAGOGASTRODUODENOSCOPY TRANSORAL DIAGNOSTIC 01/10/2016 EGD (MAC) GASTRIC BYPASS HX 03/2016 gastric sleeve HYSTERECTOMY, REVISE VAGINA; COLPECTOMY 05/16/2020 INJECTION back injections x3 PAST SURGICAL HISTORY OF 05/2020 Partial Hysterectomy w/ bladder sling TUBAL LIGATION HX 1988 Current Outpatient Medications Medication Sig carboxymethylcellulose (REFRESH CELLUVISC) 1 % ophthalmic solution Use 1 Drop in both eyes daily at bedtime. PEG 400-propylene glycol (SYSTANE ULTRA) 0.4-0.3 % ophthalmic solution Use 1 Drop in both eyes twice daily. metFORMIN ER (GLUCOPHAGE XR) 500 mg 24 hr tablet Take 3 tablets by mouth daily with breakfast. ferrous sulfate 325 mg (65 mg iron) tablet Take 1 tablet by mouth twice daily with meals. pantoprazole DR (PROTONIX) 40 mg tablet Take 1 tablet by mouth twice daily. gabapentin (NEURONTIN) 600 mg tablet Take 1 tablet by mouth three times daily for 180 days. gabapentin (NEURONTIN) 300 mg capsule Take 1 capsule by mouth three times daily for 30 days. carbidopa-levodopa (SINEMET) 25-100 mg per tablet Take 1 tablet by mouth three times daily. lisinopril (ZESTRIL) 5 mg tablet Take 1 tablet by mouth once daily. rosuvastatin (CRESTOR) 5 mg tablet Take 1 tablet by mouth daily at bedtime. tiZANidine (ZANAFLEX) 4 mg tablet Take 1 tablet by mouth every 8 hours as needed. thyroid, pork, (ARMOUR THYROID) 60 mg tablet Take 1 tablet by mouth twice daily. ondansetron (ZOFRAN) 4 mg tablet Take 1 tablet by mouth once daily as needed. VYVANSE 20 mg capsule prochlorperazine (COMPAZINE) 10 mg tablet Take 1 tablet by mouth twice daily as needed (migraine). Aluminum Hydrox-Magnesium Carb (GAVISCON EXTRA STRENGTH) 254-237.5 mg/5 mL susp Take 15 mL by mouth at bedtime as needed. Blood-Glucose Meter (FREESTYLE LITE METER) monitoring kit Freestyle LITE Meter Kit -Test blood sugars one time daily. DX E11.40 blood sugar diagnostic (FREESTYLE LITE STRIPS) test strip Test blood sugar(s) once times daily. Dx: E11.40 Lancets lancets Test blood sugar(s) one time daily. Dx: Other DM Code E11.40 Insulin: No cephALEXin (KEFLEX) 500 mg capsule Take 1 capsule by mouth three times daily. acetaminophen (TYLENOL EXTRA STRENGTH) 500 mg tablet Take 2 tablets by mouth every 8 hours as needed for Pain. nitroglycerin sublingual (NITROQUICK) 0.3 mg SL tablet Dissolve 0.3 mg under the tongue every 5 minutes as needed. COMPOUNDED PRESCRIPTION Initiate AutoPAP @ 10-20 cm of water with humidification mask (per patient preference) optional chin strap (if indicated) and lifetime supplies ([facility]) DX: KRZYSZTOF G47.33 COMPOUNDED PRESCRIPTION Diabetic shoes One pair CPAP CPAP with humidification. Mask (per patient preference) optional chin strap (if indicated) , filters, tubing, humidifier and lifetime supplies. lamoTRIgine (LAMICTAL) 200 mg tablet Take 1 tablet by mouth twice daily. clonazePAM (KLONOPIN) 1 mg tablet 1 mg three times daily. vortioxetine (TRINTELLIX) 20 mg tablet Take 1 tablet by mouth once daily. aspirin 81 mg chewable tablet Take 1 tablet by mouth once daily. CPAP Please provide supplies. Mask per preference, tubing, filters, humidity. Lifetime Supplies. Dx: G47.33 COMPOUNDED PRESCRIPTION Lightweight wheelchair DX: DDD, neuropathy Wheel Chair issac DX: debility COMPOUNDED PRESCRIPTION EX-LARGE BLOOD PRESSURE CUFF KIT DX I10 Blood Pressure Test Kit-Large (QUICK RESPONSE BP MONITOR) kit 1 Kit once daily. buPROPion HCl 200 mg 12 hr tablet Take 200 mg by mouth twice daily. metoprolol succinate ER (TOPROL XL) 25 mg 24 hr tablet Take 1 tablet by mouth once daily. multivit with minerals/lutein (MULTIVITAMIN 50 PLUS ORAL) Take 1 tablet by mouth once daily. No current facility-administered medications for this visit. ALLERGIES: Cat Hair Standardized Allergenic Extract, Cats, Citric Acid, Mold Spores, and Zolpidem PERSONAL HISTORY: Social History Tobacco Use Smoking status: Former Packs/day: 1.50 Years: 11.00 Additional pack years: 0.00 Total pack years: 16.50 Types: Cigarettes Quit date: 03/23/1989 Years since quittin.7 Smokeless tobacco: Never Vaping Use Vaping Use: Never used Substance Use Topics Alcohol use: No Drug use: No FAMILY HISTORY: FAMILY HISTORY Problem Relation Age of Onset Heart Father other (parkinson's) Father Diabetes Mother Stroke Mother Cancer Mother melanoma other (Other) Sister in infancy Mental illness Brother Alcohol/Drug Brother Stroke Maternal Grandmother Alzheimer's Disease Maternal Grandmother Diabetes Paternal Grandmother Bipolar disorder Daughter other (Other) Daughter behavioral disorder ADD/ADHD Son Bipolar disorder Son other (behavioral conduct disorder) Grandchild Glaucoma No Family History Macular Degen No Family History REVIEW OF SYMPTOMS: The review of systems data was entered by the nurse and reviewed by me Nursing Notes: Elisha Tang LPN 12/11/2022 1:27 PM Signed REVIEW OF SYSTEMS: General: The patient denies fatigue, denies weight loss, denies weight gain, denies feeling hot, and denies feelings of cold. Eyes: The patient NOTES glaucoma, denies eye injury/surgery, wears glasses or contacts. Ear/Nose/Throat: The patient NOTES allergies, denies hayfever, denies ear infections, and NOTES bloody noses. Cardiovascular: The patient denies chest pain, NOTES heart disease, NOTES high blood pressure,denies cardiac stent, denies prior heart attack, denies irregular heart beat, NOTES high cholesterol, denies poor circulation, denies heart failure, other cardiac issues, NOTES claudication, denies cold feet, denies peripheral arterial stent. Respiratory: The patient denies tuberculosis, denies pneumonia, denies frequent cough, denies pulmonary embolism, denies shortness of breath, and denies coughing up blood. Gastrointestinal: The patient denies difficulty swallowing, NOTES acid reflux, denies ulcers, denies vomiting, denies jaundice/hepatitis, denies gallbladder problems, denies black or tarry stools, denies hemorrhoids, denies bleeding from rectum, denies diverticulitis, NOTES constipation, denies diarrhea, denies loss of stool control, and denies hernias. Kidney/Bladder: The patient denies kidney stones, denies urine infections, and denies bloody urine. Skin: The patient denies a history of skin cancer, denies bleeding/changing moles, and denies a history of skin rash. Neurologic: The patient denies a history of epilepsy/convulsions, denies headaches, denies head/spinal injuries, and denies stroke/TIA. Psychiatric: The patient NOTES psychiatric medications, denies depression, and denies voices, denies substance abuse. Endocrine: The patient denies thyroid disorders, NOTES diabetes, and denies hormonal problems. Hematologic: The patient denies a history of bruising, denies bleeding, and NOTES anemia, denies blood clots. Infections: The patient denies a history of measles and mumps, denies rheumatic fever, and denies sexually transmitted diseases. Musculoskeletal: The patient denies back pain/injury, NOTES back problems, NOTES sciatica, denies knee/foot trouble, NOTES arthritis, or denies gout. When was patient's last Mammogram screening? 2022 Last Colonoscopy: 2014 Elisha Tang LPN PHYSICAL EXAMINATION: General: The patient is 57 year old female, well nourished, well hydrated in no acute distress. The patient is oriented to time, place, and person. VITALS: Blood pressure 138/76, pulse 75, temperature 36.1 C (97 F), height 172.7 cm (5' 8), weight 120.1 kg (264 lb 12.8 oz), last menstrual period 11/20/2014, SpO2 95 %. Body mass index is 40.26 kg/m . HEENT: Normal cephalic, ataumatic, pupils are equally round, sclera are anicteric, mucous membranes are moist, oropharynx is clear. Neck has no masses, asymmetry or lymphadenopathy. Respiratory: Clear to auscultation and percussion. Normal respiratory excursion and pattern. Cardiac: Examination is regular rate and rhythm. Normal S1/S2 Abdominal exam: Soft, nontender, with no palpable masses. No hepatosplenomegaly. No palpable hernias. Extremities: no clubbing, cyanosis or edema. No adenopathy. LABORATORY VALUES: As Noted RADIOLOGIC STUDIES: As Noted Assessment IMPRESSION: Powers's esophagus, need for screening colonoscopy and surveillance EGD PLAN: I have reviewed my findings with the surgeon. Will plan for upper and lower endoscopy. We discussed the risks and benefits of the planned endoscopy. I have informed the patient that complications can occur including failure to complete the endoscopy and perforation. The patient had the opportunity to ask questions concerning the planned endoscopy. My staff has also explained the procedure to the patient in understandable terms and has given the patient printed material concerning the procedure. The patient freely consents to surgery. I plan to use Miralax bowel preparation We will plan for Monitored Anesthetic Care. Diagnoses: (K22.70) 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 (Z86.010) History of colonic polyps Consultation requested by Dr. Holden for an opinion regarding endoscopy. My final recommendations will be communicated back to the requesting physician by way of shared Medical record or letter to requesting physician via US mail. Sade Alston PA-C documented in this encounter [facility] 12-11-2022 Nurse Note REVIEW OF SYSTEMS: General: The patient denies fatigue, denies weight loss, denies weight gain, denies feeling hot, and denies feelings of cold. Eyes: The patient NOTES glaucoma, denies eye injury/surgery, wears glasses or contacts. Ear/Nose/Throat: The patient NOTES allergies, denies hayfever, denies ear infections, and NOTES bloody noses. Cardiovascular: The patient denies chest pain, NOTES heart disease, NOTES high blood pressure,denies cardiac stent, denies prior heart attack, denies irregular heart beat, NOTES high cholesterol, denies poor circulation, denies heart failure, other cardiac issues, NOTES claudication, denies cold feet, denies peripheral arterial stent. Respiratory: The patient denies tuberculosis, denies pneumonia, denies frequent cough, denies pulmonary embolism, denies shortness of breath, and denies coughing up blood. Gastrointestinal: The patient denies difficulty swallowing, NOTES acid reflux, denies ulcers, denies vomiting, denies jaundice/hepatitis, denies gallbladder problems, denies black or tarry stools, denies hemorrhoids, denies bleeding from rectum, denies diverticulitis, NOTES constipation, denies diarrhea, denies loss of stool control, and denies hernias. Kidney/Bladder: The patient denies kidney stones, denies urine infections, and denies bloody urine. Skin: The patient denies a history of skin cancer, denies bleeding/changing moles, and denies a history of skin rash. Neurologic: The patient denies a history of epilepsy/convulsions, denies headaches, denies head/spinal injuries, and denies stroke/TIA. Psychiatric: The patient NOTES psychiatric medications, denies depression, and denies voices, denies substance abuse. Endocrine: The patient denies thyroid disorders, NOTES diabetes, and denies hormonal problems. Hematologic: The patient denies a history of bruising, denies bleeding, and NOTES anemia, denies blood clots. Infections: The patient denies a history of measles and mumps, denies rheumatic fever, and denies sexually transmitted diseases. Musculoskeletal: The patient denies back pain/injury, NOTES back problems, NOTES sciatica, denies knee/foot trouble, NOTES arthritis, or denies gout. When was patient's last Mammogram screening? 2022 Last Colonoscopy: 2014 Elisha Tang LPN documented in this encounter [facility] 12-05-2022 History of Present illness Narrative Patient presents with: 6 Month Exam HPI: Patient presents today for office visit for follow up. DM: Reports overall feeling well. Medication side effects: No. Home sugar check frequency/results:not checking Hypoglycemic spells: No. Watching diet: No. Unexpected weight loss: No. Polyuria, polydipsia: No. Vision Changes: Yes. Eyes were dry and optho gave her meds and advised her that starting with glaucoma. Foot lesions or numbness or pain: currently nursing broken toe. Sees Dr Sahu for podiatry and was to go down to [facility] to get diabetic shoes. Patient would benefit from having diabetic shoes. Notes increasing issues with memory. It has been an issue for several years. Has had mri done in 2020. She feels it was going on even then. Has gotten progressively worse over at least the last year. Mixing up words and putting sentences together sometimes. She states she had mentioned it to neurology. She sees them again in 02/21#. They did start her on sinemet. They have not yet called her tremor parkinson's disease. No new focal numbness or weakness. Discussed seeing neurology again with it. Migraines: Improved with new medication from neurology. Not driving with her increased shaking. Also falling more so using the walker even more. Not able to get to PT due to transportation. Does not receive any home health services that she would be able to get PT from. Discussed having vn see her. She is home bound and states her home is a mess. Needs labs for her hx of bariatric surgery. Still has occasional issues swallowing. Last egd was 2019. Over due for repeat egd. Has increasing heartburn and occasional cough after eating. She is aware she is due for scopes on both ends Overdue to see cardiology. No new chest pain or shortness of breath. No new edema. Sees Dr Orozco for psych. She feels is stable. See previous ov: Diabetes: States that glucose is up from before. This is due to eating at night she feels. Has a several recent deaths and feels like eating in dealing with this. Concerns of weight gain. Falling more frequently. Can't pinpoint reason for falling. Does admit to increased leg weakness and ankles seem to turn like not holding her weight. Using wheeled walker for walking because has fallen with cane. Will use wheelchair only for long distance. Increase in her headaches. Tremors are getting worse. Has not been back recently to neurology. Joint pain in her toes. Feels this even with the neuropathy in her feet. Also swelling in finger. HYPOTHYROID: Patient is compliant with medications: Yes Patient has changes in energy: No Patient has changes in hair or skin: No Patient has temperature intolerance: No Patient has weight changes: Yes Last TSH 6.050 10/11/21 KRZYSZTOF: uses CPAP regularly. Sleeps well: trouble staying asleep. Feels rested on awakening: No No daytime fatigue: Yes Snoring: No Seeing podiatry and psychiatry. Foot is healing well. No new skin moles or rashes. MEDICATIONS: Current Outpatient Medications Medication Sig carboxymethylcellulose (REFRESH CELLUVISC) 1 % ophthalmic solution Use 1 Drop in both eyes daily at bedtime. PEG 400-propylene glycol (SYSTANE ULTRA) 0.4-0.3 % ophthalmic solution Use 1 Drop in both eyes twice daily. metFORMIN ER (GLUCOPHAGE XR) 500 mg 24 hr tablet Take 3 tablets by mouth daily with breakfast. ferrous sulfate 325 mg (65 mg iron) tablet Take 1 tablet by mouth twice daily with meals. pantoprazole DR (PROTONIX) 40 mg tablet Take 1 tablet by mouth twice daily. gabapentin (NEURONTIN) 600 mg tablet Take 1 tablet by mouth three times daily for 180 days. gabapentin (NEURONTIN) 300 mg capsule Take 1 capsule by mouth three times daily for 30 days. carbidopa-levodopa (SINEMET) 25-100 mg per tablet Take 1 tablet by mouth three times daily. lisinopril (ZESTRIL) 5 mg tablet Take 1 tablet by mouth once daily. rosuvastatin (CRESTOR) 5 mg tablet Take 1 tablet by mouth daily at bedtime. tiZANidine (ZANAFLEX) 4 mg tablet Take 1 tablet by mouth every 8 hours as needed. thyroid, pork, (ARMOUR THYROID) 60 mg tablet Take 1 tablet by mouth twice daily. ondansetron (ZOFRAN) 4 mg tablet Take 1 tablet by mouth once daily as needed. metoprolol succinate ER (TOPROL XL) 25 mg 24 hr tablet Take 1 tablet by mouth once daily. VYVANSE 20 mg capsule prochlorperazine (COMPAZINE) 10 mg tablet Take 1 tablet by mouth twice daily as needed (migraine). Aluminum Hydrox-Magnesium Carb (GAVISCON EXTRA STRENGTH) 254-237.5 mg/5 mL susp Take 15 mL by mouth at bedtime as needed. Blood-Glucose Meter (FREESTYLE LITE METER) monitoring kit Freestyle LITE Meter Kit -Test blood sugars one time daily. DX E11.40 blood sugar diagnostic (FREESTYLE LITE STRIPS) test strip Test blood sugar(s) once times daily. Dx: E11.40 Lancets lancets Test blood sugar(s) one time daily. Dx: Other DM Code E11.40 Insulin: No cephALEXin (KEFLEX) 500 mg capsule Take 1 capsule by mouth three times daily. acetaminophen (TYLENOL EXTRA STRENGTH) 500 mg tablet Take 2 tablets by mouth every 8 hours as needed for Pain. nitroglycerin sublingual (NITROQUICK) 0.3 mg SL tablet Dissolve 0.3 mg under the tongue every 5 minutes as needed. COMPOUNDED PRESCRIPTION Initiate AutoPAP @ 10-20 cm of water with humidification mask (per patient preference) optional chin strap (if indicated) and lifetime supplies ([facility]) DX: KRZYSZTOF G47.33 multivit with minerals/lutein (MULTIVITAMIN 50 PLUS ORAL) Take 1 tablet by mouth once daily. COMPOUNDED PRESCRIPTION Diabetic shoes One pair CPAP CPAP with humidification. Mask (per patient preference) optional chin strap (if indicated) , filters, tubing, humidifier and lifetime supplies. lamoTRIgine (LAMICTAL) 200 mg tablet Take 1 tablet by mouth twice daily. clonazePAM (KLONOPIN) 1 mg tablet 1 mg three times daily. vortioxetine (TRINTELLIX) 20 mg tablet Take 1 tablet by mouth once daily. aspirin 81 mg chewable tablet Take 1 tablet by mouth once daily. CPAP Please provide supplies. Mask per preference, tubing, filters, humidity. Lifetime Supplies. Dx: G47.33 COMPOUNDED PRESCRIPTION Lightweight wheelchair DX: DDD, neuropathy Wheel Chair issac DX: debility COMPOUNDED PRESCRIPTION EX-LARGE BLOOD PRESSURE CUFF KIT DX I10 Blood Pressure Test Kit-Large (QUICK RESPONSE BP MONITOR) kit 1 Kit once daily. buPROPion HCl 200 mg 12 hr tablet Take 200 mg by mouth twice daily. No current facility-administered medications for this visit. ALLERGIES: ALLERGIES Allergen Reactions Cat Hair Standardiz* Itching Eyes get really red, if cat is too close, can't breathe Cats Itching Eyes get really red, if cat is too close, can't breathe Citric Acid Intolerance Mold Spores Other: See Comments Flu like symptoms Zolpidem Other: See Comments PAST MEDICAL HISTORY Diagnosis Date Anxiety Powers's esophagus Bipolar 1 disorder (HCC) Dr. Orozco, psychiatry Chronic headaches Coronary-myocardial bridge DDD (degenerative disc disease) Depression 01/05/2015 Essential tremor TK tremor Fibromyalgia GERD (gastroesophageal reflux disease) HTN (hypertension) Hyperlipidemia Hypothyroid Liver fibrosis Mild CAD 08/22/2019 Neuropathy Non-melanoma skin cancer 03/08/2021 Obstructive sleep apnea PTSD (post-traumatic stress disorder) PVD (peripheral vascular disease) ([facility]) Sciatica Shoulder injury Type II or unspecified type diabetes mellitus without mention of complication, not stated as uncontrolled PAST SURGICAL HISTORY Procedure Laterality Date COLONOSCOPY FLX DX W/COLLJ SPEC WHEN PFRMD 01/10/2015 Colonoscopy DIAGNOSTIC ARTHROSCOPY SHOULDER +- SYNOVIAL BX Left 05/21/2018 Left shoulder arthroscopic subacromial decompression, open distal clavicle excision and manipulation under anesthesia EGD 2019 ENDOMETRIAL ABLATION WITH US GUIDANCE 2007 ESOPHAGOGASTRODUODENOSCOPY TRANSORAL DIAGNOSTIC 01/10/2015 EGD ESOPHAGOGASTRODUODENOSCOPY TRANSORAL DIAGNOSTIC 01/10/2016 EGD (MAC) GASTRIC BYPASS HX 03/2016 gastric sleeve HYSTERECTOMY, REVISE VAGINA; COLPECTOMY 05/16/2020 INJECTION back injections x3 PAST SURGICAL HISTORY OF 05/2020 Partial Hysterectomy w/ bladder sling TUBAL LIGATION HX 1988 FAMILY HISTORY Problem Relation Age of Onset Heart Father other (parkinson's) Father Diabetes Mother Stroke Mother Cancer Mother melanoma other (Other) Sister in infancy Mental illness Brother Alcohol/Drug Brother Stroke Maternal Grandmother Alzheimer's Disease Maternal Grandmother Diabetes Paternal Grandmother Bipolar disorder Daughter other (Other) Daughter behavioral disorder ADD/ADHD Son Bipolar disorder Son other (behavioral conduct disorder) Grandchild Glaucoma No Family History Macular Degen No Family History Social History Tobacco Use Smoking status: Former Packs/day: 1.50 Years: 11.00 Additional pack years: 0.00 Total pack years: 16.50 Types: Cigarettes Quit date: 03/23/1989 Years since quittin.7 Smokeless tobacco: Never Vaping Use Vaping Use: Never used Substance Use Topics Alcohol use: No Drug use: No Reviewed current medications, allergies, past medical history, surgical history, family history and social history today. REVIEW OF SYSTEMS All other reviewed and negative other than HPI. HEALTH MAINTENANCE: Reviewed health maintenance issues today and recommended the following in detail. HIV Screening Never done BP Controlled (<130/80) Never done Shingrix Vaccine(1 of 2) Never done Colorectal Cancer Screening due on 01/11/2020 Diabetic Foot Exam -sees podiatry. Urine Albumin:Creatinine Ratio due on 10/11/2022 HbA1C due on 11/21/2022 Influenza Vaccine(1) due on 11/21/2022 VITALS: LMP 11/20/2014 (Approximate) Last 4 Encounter Wt Readings: Date: Wt: 11/07/2022 118.4 kg (261 lb) 10/29/2022 120.5 kg (265 lb 9.6 oz) 08/06/2022 118.8 kg (262 lb) 05/29/2022 117.9 kg (260 lb) PHYSICAL EXAMINATION: General appearance: Well appearing, alert, in no acute distress, well-hydrated, well nourished. Skin: Skin color, texture, turgor normal, no suspicious rashes or lesions Head: Normocephalic, no masses, lesions, tenderness or abnormalities Neck: Supple, no adenopathy; thyroid symmetric, normal size, no bruits Lungs: Lungs clear to auscultation. No wheezing, rhonchi, rales Heart: RRR without murmur, gallop, or rubs. No ectopy Abdomen: Normal abdominal exam, Abdomen soft, non-tender. Bowel sounds normal. No masses, organomegaly Extremities: No deformities, edema, skin discoloration, clubbing or cyanosis. Good capillary refill. Musculoskeletal: No joint swelling, deformity, or tenderness Peripheral pulses: Normal Neuro: facial tremor. Using walker to walk. No other focal deficits. ASSESSMENT/PLAN: 1. Tremor - ICD9: 781.0, ICD10: R25.1 (primary diagnosis) Continue follow up with neurology. Call if worsens. 2. Encounter for immunization - ICD9: V03.89, ICD10: Z23 - INFLUENZA VACCINE, AGE 6 MO - 64 YR, QUADRIVALENT (AFLURIA, FLULAVAL, FLUZONE) 3. Degenerative disease of nervous system, unspecified (HCC) - ICD9: 331.9, ICD10: G31.9 - as above. 4. Neuropathy - ICD9: 355.9, ICD10: G62.9 - as above. 5. Fibromyalgia - ICD9: 729.1, ICD10: M79.7 - stalble 6. Chronic nonintractable headache, unspecified headache type - ICD9: 784.0, ICD10: R51.9, G89.29 - call if any issues. 7. Coronary-myocardial bridge - ICD9: 746.85, ICD10: Q24.5 - keep follow up with cardiology 8. Primary hypertension - ICD9: 401.9, ICD10: I10 - Controlled - Continue current medications - CONSULT TO CARDIOLOGY 9. Other hyperlipidemia - ICD9: 272.4, ICD10: E78.49 - continue meds. 10. KRZYSZTOF (obstructive sleep apnea) - ICD9: 327.23, ICD10: G47.33 - stable. 11. 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 - ICD9: 530.85, ICD10: K22.70 - reminded is overdue for follow up. - CONSULT TO GENERAL SURGERY 12. Liver fibrosis - ICD9: 571.5, ICD10: K74.00 - follow labs. 13. Type 2 diabetes mellitus with diabetic neuropathy, without long-term current use of insulin (HCC) - ICD9: 250.60, 357.2, ICD10: E11.40 - continue to follow. 14. Hypothyroidism, unspecified type - ICD9: 244.9, ICD10: E03.9 - follow labs. 15. H/O gastric bypass - ICD9: V45.86, ICD10: Z98.84 - check labs. 16. Gait instability - ICD9: 781.2, ICD10: R26.81 - see neuro 17. History of colonic polyps - ICD9: V12.72, ICD10: Z86.010 - CONSULT TO GENERAL SURGERY 18. Coronary artery disease involving [place] heart without angina pectoris, unspecified vessel or lesion type - ICD9: 414.01, ICD10: I25.10 - CONSULT TO CARDIOLOGY 19. Memory loss - ICD9: 780.93, ICD10: R41.3 - check labs. See neuro - CBC + DIFF - COMP METABOLIC PANEL - VITAMIN B12 BLOOD - FOLATE SERUM - VITAMIN B1 (THIAMINE), WHOLE BLOOD 20. Screening for HIV (human immunodeficiency virus) - ICD9: V73.89, ICD10: Z11.4 - HIV 1 2 COMBO(AG/AB),WITH REFLEX TO DIFFERENTIATION Santhosh Holden documented in this encounter [facility] 12-05-2022 History of Past i llness Narrative Problem Noted Date Diagnosed Date Resolved Date Parkinsonism 12/05/2022 12/05/2022 Colon cancer screening 03/08/202112/05 Shoulder injury 02/10/2018 05/30/2020 Impingement syndrome of left shoulder 10/23/2017 05/30/2020 Acute pain of left shoulder 10/22/2017 05/30/2020 Morbid obesity due to excess calories 03/31/2016 07/04/2016 Type 2 diabetes mellitus wit h diabetic neuropathy, without long-term current use of insulin 01/08/2016 07/04/2016 documented as of this encounter (statuses as of 12/06/2022) [facility] History of Past illness Narrative* Problem Noted Date Diagnosed Date Resolved Date Parkinsonism 12/05/2022 12/05/2022 Colon cancer screening 03/08/202112/05 Shoulder injury 02/10/2018 05/30/2020 Impingement syndrome of left shoulder 10/23/2017 05/30/2020 Acute pain of left shoulder 10/22/2017 05/30/2020 Morbid obesity due to excess calories 03/31/2016 07/04/2016 Type 2 diabetes mellitus wit h diabetic neuropathy, without long-term current use of insulin 01/08/2016 07/04/2016 documented as of this encounter (statuses as of 12/09/2022) [facility] History of Past illness Narrative* Problem Noted Date Diagnosed Date Resolved Date Parkinsonism 12/05/2022 12/05/2022 Colon cancer screening 03/08/202112/05 Shoulder injury 02/10/2018 05/30/2020 Impingement syndrome of left shoulder 10/23/2017 05/30/2020 Acute pain of left shoulder 10/22/2017 05/30/2020 Morbid obesity due to excess calories 03/31/2016 07/04/2016 Type 2 diabetes mellitus wit h diabetic neuropathy, without long-term current use of insulin 01/08/2016 07/04/2016 documented as of this encounter (statuses as of 12/24/2022) [facility] History of Past illness Narrative* Problem Noted Date Diagnosed Date Resolved Date Parkinsonism 12/05/2022 12/05/2022 Colon cancer screening 03/08/202112/05 Shoulder injury 02/10/2018 05/30/2020 Impingement syndrome of left shoulder 10/23/2017 05/30/2020 Acute pain of left shoulder 10/22/2017 05/30/2020 Morbid obesity due to excess calories 03/31/2016 07/04/2016 Type 2 diabetes mellitus wit h diabetic neuropathy, without long-term current use of insulin 01/08/2016 07/04/2016 documented as of this encounter (statuses as of 01/19/2023) [facility] History of Past illness Narrative* Problem Noted Date Diagnosed Date Resolved Date Parkinsonism 12/05/2022 12/05/2022 Colon cancer screening 03/08/202112/05 Shoulder injury 02/10/2018 05/30/2020 Impingement syndrome of left shoulder 10/23/2017 05/30/2020 Acute pain of left shoulder 10/22/2017 05/30/2020 Morbid obesity due to excess calories 03/31/2016 07/04/2016 Type 2 diabetes mellitus wit h diabetic neuropathy, without long-term current use of insulin 01/08/2016 07/04/2016 documented as of this encounter (statuses as of 02/05/2023) [facility] History of Past illness Narrative* Problem Noted Date Diagnosed Date Resolved Date Parkinsonism 12/05/2022 12/05/2022 Colon cancer screening 03/08/202112/05 Shoulder injury 02/10/2018 05/30/2020 Impingement syndrome of left shoulder 10/23/2017 05/30/2020 Acute pain of left shoulder 10/22/2017 05/30/2020 Morbid obesity due to excess calories 03/31/2016 07/04/2016 Type 2 diabetes mellitus wit h diabetic neuropathy, without long-term current use of insulin 01/08/2016 07/04/2016 documented as of this encounter (statuses as of 02/06/2023) [facility] History of Past illness Narrative* Problem Noted Date Diagnosed Date Resolved Date Parkinsonism 12/05/2022 12/05/2022 Colon cancer screening 03/08/202112/05 Shoulder injury 02/10/2018 05/30/2020 Impingement syndrome of left shoulder 10/23/2017 05/30/2020 Acute pain of left shoulder 10/22/2017 05/30/2020 Morbid obesity due to excess calories 03/31/2016 07/04/2016 Type 2 diabetes mellitus wit h diabetic neuropathy, without long-term current use of insulin 01/08/2016 07/04/2016 documented as of this encounter (statuses as of 02/18/2023) [facility] History of Past illness Narrative* Problem Noted Date Diagnosed Date Resolved Date Parkinsonism 12/05/2022 12/05/2022 Colon cancer screening 03/08/202112/05 Shoulder injury 02/10/2018 05/30/2020 Impingement syndrome of left shoulder 10/23/2017 05/30/2020 Acute pain of left shoulder 10/22/2017 05/30/2020 Morbid obesity due to excess calories 03/31/2016 07/04/2016 Type 2 diabetes mellitus wit h diabetic neuropathy, without long-term current use of insulin 01/08/2016 07/04/2016 documented as of this encounter (statuses as of 02/18/2023) [facility] History of Past illness Narrative* Problem Noted Date Diagnosed Date Resolved Date Parkinsonism 12/05/2022 12/05/2022 Colon cancer screening 03/08/202112/05 Shoulder injury 02/10/2018 05/30/2020 Impingement syndrome of left shoulder 10/23/2017 05/30/2020 Acute pain of left shoulder 10/22/2017 05/30/2020 Morbid obesity due to excess calories 03/31/2016 07/04/2016 Type 2 diabetes mellitus wit h diabetic neuropathy, without long-term current use of insulin 01/08/2016 07/04/2016 documented as of this encounter (statuses as of 02/18/2023) [facility] History of Past illness Narrative* Problem Noted Date Diagnosed Date Resolved Date Parkinsonism 12/05/2022 12/05/2022 Colon cancer screening 03/08/202112/05 Shoulder injury 02/10/2018 05/30/2020 Impingement syndrome of left shoulder 10/23/2017 05/30/2020 Acute pain of left shoulder 10/22/2017 05/30/2020 Morbid obesity due to excess calories 03/31/2016 07/04/2016 Type 2 diabetes mellitus wit h diabetic neuropathy, without long-term current use of insulin 01/08/2016 07/04/2016 documented as of this encounter (statuses as of 02/19/2023) [facility] History of Past illness Narrative* Problem Noted Date Diagnosed Date Resolved Date Parkinsonism 12/05/2022 12/05/2022 Special screening for malign ant neoplasms, colon 03/08/2021 04/07/2023 Shoulder injury 02/10/2018 05/30/2020 Impingement syndrome of left shoulder 10/23/2017 05/30/2020 Acute pain of left shoulder 10/22/2017 05/30/2020 Morbid obesity due to excess calories 03/31/2016 07/04/2016 Type 2 diabetes mellitus wit h diabetic neuropathy, without long-term current use of insulin 01/08/2016 07/04/2016 documented as of this encounter (statuses as of 04/24/2023) [facility] History of Past illness Narrative* Problem Noted Date Diagnosed Date Resolved Date Parkinsonism 12/05/2022 12/05/2022 Special screening for malign ant neoplasms, colon 03/08/2021 04/07/2023 Shoulder injury 02/10/2018 05/30/2020 Impingement syndrome of left shoulder 10/23/2017 05/30/2020 Acute pain of left shoulder 10/22/2017 05/30/2020 Morbid obesity due to excess calories 03/31/2016 07/04/2016 Type 2 diabetes mellitus wit h diabetic neuropathy, without long-term current use of insulin 01/08/2016 07/04/2016 documented as of this encounter (statuses as of 05/04/2023) [facility] History of Past illness Narrative* Problem Noted Date Diagnosed Date Resolved Date Parkinsonism 12/05/2022 12/05/2022 Special screening for malign ant neoplasms, colon 03/08/2021 04/07/2023 Shoulder injury 02/10/2018 05/30/2020 Impingement syndrome of left shoulder 10/23/2017 05/30/2020 Acute pain of left shoulder 10/22/2017 05/30/2020 Morbid obesity due to excess calories 03/31/2016 07/04/2016 Type 2 diabetes mellitus wit h diabetic neuropathy, without long-term current use of insulin 01/08/2016 07/04/2016 documented as of this encounter (statuses as of 05/04/2023) [facility] of Past illness Narrative* Problem Noted Date Diagnosed Date Resolved Date Parkinsonism 12/05/2022 12/05/2022 Special screening for malign ant neoplasms, colon 03/08/2021 04/07/2023 Shoulder injury 02/10/2018 05/30/2020 Impingement syndrome of left shoulder 10/23/2017 05/30/2020 Acute pain of left shoulder 10/22/2017 05/30/2020 Morbid obesity due to excess calories 03/31/2016 07/04/2016 Type 2 diabetes mellitus wit h diabetic neuropathy, without long-term current use of insulin 01/08/2016 07/04/2016 documented as of this encounter (statuses as of 05/08/2023) [facility] History of Past illness Narrative* Problem Noted Date Diagnosed Date Resolved Date Parkinsonism 12/05/2022 12/05/2022 Special screening for malign ant neoplasms, colon 03/08/2021 04/07/2023 Shoulder injury 02/10/2018 05/30/2020 Impingement syndrome of left shoulder 10/23/2017 05/30/2020 Acute pain of left shoulder 10/22/2017 05/30/2020 Morbid obesity due to excess calories 03/31/2016 07/04/2016 Type 2 diabetes mellitus wit h diabetic neuropathy, without long-term current use of insulin 01/08/2016 07/04/2016 documented as of this encounter (statuses as of 05/19/2023) [facility] History of Past illness Narrative* Problem Noted Date Diagnosed Date Resolved Date Parkinsonism 12/05/2022 12/05/2022 Special screening for malign ant neoplasms, colon 03/08/2021 04/07/2023 Shoulder injury 02/10/2018 05/30/2020 Impingement syndrome of left shoulder 10/23/2017 05/30/2020 Acute pain of left shoulder 10/22/2017 05/30/2020 Morbid obesity due to excess calories 03/31/2016 07/04/2016 Type 2 diabetes mellitus wit h diabetic neuropathy, without long-term current use of insulin 01/08/2016 07/04/2016 documented as of this encounter (statuses as of 05/22/2023) [facility] History of Past illness Narrative* Problem Noted Date Diagnosed Date Resolved Date Parkinsonism 12/05/2022 12/05/2022 Special screening for malign ant neoplasms, colon 03/08/2021 04/07/2023 Shoulder injury 02/10/2018 05/30/2020 Impingement syndrome of left shoulder 10/23/2017 05/30/2020 Acute pain of left shoulder 10/22/2017 05/30/2020 Morbid obesity due to excess calories 03/31/2016 07/04/2016 Type 2 diabetes mellitus wit h diabetic neuropathy, without long-term current use of insulin 01/08/2016 07/04/2016 documented as of this encounter (statuses as of 05/22/2023) [place] [id number] History of Past illness Narrative* Problem Noted Date Diagnosed Date Resolved Date Parkinsonism 12/05/2022 12/05/2022 Special screening for malign ant neoplasms, colon 03/08/2021 04/07/2023 Shoulder injury 02/10/2018 05/30/2020 Impingement syndrome of left shoulder 10/23/2017 05/30/2020 Acute pain of left shoulder 10/22/2017 05/30/2020 Morbid obesity due to excess calories 03/31/2016 07/04/2016 Type 2 diabetes mellitus wit h diabetic neuropathy, without long-term current use of insulin 01/08/2016 07/04/2016 documented as of this encounter (statuses as of 05/26/2023) [address]15-2023 History of Past illness Narrative* Problem Noted Date Diagnosed Date Resolved Date Parkinsonism 12/05/2022 12/05/2022 Special screening for malign ant neoplasms, colon 03/08/2021 04/07/2023 Shoulder injury 02/10/2018 05/30/2020 Impingement syndrome of left shoulder 10/23/2017 05/30/2020 Acute pain of left shoulder 10/22/2017 05/30/2020 Morbid obesity due to excess calories 03/31/2016 07/04/2016 Type 2 diabetes mellitus wit h diabetic neuropathy, without long-term current use of insulin 01/08/2016 07/04/2016 documented as of this encounter (statuses as of 05/26/2023) [facility] History of Past illness Narrative* Problem Noted Date Diagnosed Date Resolved Date Parkinsonism 12/05/2022 12/05/2022 Special screening for malign ant neoplasms, colon 03/08/2021 04/07/2023 Shoulder injury 02/10/2018 05/30/2020 Impingement syndrome of left shoulder 10/23/2017 05/30/2020 Acute pain of left shoulder 10/22/2017 05/30/2020 Morbid obesity due to excess calories 03/31/2016 07/04/2016 Type 2 diabetes mellitus wit h diabetic neuropathy, without long-term current use of insulin 01/08/2016 07/04/2016 documented as of this encounter (statuses as of 06/03/2023) [address]-2023 History of Past illness Narrative* Problem Noted Date Diagnosed Date Resolved Date Parkinsonism 12/05/2022 12/05/2022 Special screening for malign ant neoplasms, colon 03/08/2021 04/07/2023 Shoulder injury 02/10/2018 05/30/2020 Impingement syndrome of left shoulder 10/23/2017 05/30/2020 Acute pain of left shoulder 10/22/2017 05/30/2020 Morbid obesity due to excess calories 03/31/2016 07/04/2016 Type 2 diabetes mellitus wit h diabetic neuropathy, without long-term current use of insulin 01/08/2016 07/04/2016 documented as of this encounter (statuses as of 06/04/2023) [facility] Miscellaneous Notes* Telephone Encounter - Jacqueline Fontaine Ma - 12/02/2022 9:32 AM EDT Notified via mychart of labs being ordered and to be able to provide urine test at that time. Jacqueline Fontaine Ma * Telephone Encounter - Dulce Diallo Ma - 12/01/2022 10:54 AM EDT Attempted to contact pt but was unable to LM due to VM not being setup yet. Will try calling again later. If pt returns call please update her on below. A1c and Albumin/Creatinine was ordered (urine). Dulce Diallo Ma * Telephone Encounter - Santhosh Holden MD - 12/01/2022 10:37 AM EDT Placed. * Telephone Encounter - Chichi Alfaro - 12/01/2022 9:12 AM EDT Patient has appointment on 12/05 for 6 mo OV please advise patient if labs are needed and if so place orders. documented in [facility]The [facility] History of Present illness Narrative* Ros Ortiz, OD - 12/01/2022 3:17 PM EDT 1. Dry eye syndrome of bilateral lacrimal glands Continue gel nightly in both eyes (okay to use twice daily since works best for patient) Use artificial tears as needed 2. Type 2 diabetes mellitus without retinopathy (HCC) Not assessed today- monitor in 6 months 3. Combined forms of age-related cataract of both eyes Monitor 4. Presbyopia Continue with current glasses- adjusted bifocal height to improve near vision Follow-up in 1 year for diabetic eye exam or sooner as needed Ros Ortiz, OD December 01, 2022 3:17 PM documented in [facility]The [facility] Miscellaneous Notes* Telephone Encounter - Amina Burt OA - 11/27/2022 9:25 AM EDT This patient would like a refill for Systane ultra. The medication is pending to be signed. Please advise. OZ Horne documented in this encounterThe [facility] Miscellaneous Notes* Telephone Encounter - J Luis Lopez PA-C - 11/26/2022 8:20 AM EDT Please et her know metformin may decrease levels with Sinemet. Should discuss with neurologist. The following approved medication requests have been transmitted electronically. Requested Prescriptions Signed Prescriptions Disp Refills metFORMIN ER (GLUCOPHAGE XR) 500 mg 24 hr tablet 270 tablet 1 Sig: Take 3 tablets by mouth daily with breakfast. Authorizing Provider: J Luis LOPEZ ferrous sulfate 325 mg (65 mg iron) tablet 180 tablet 1 Sig: Take 1 tablet by mouth twice daily with meals. Authorizing Provider: J Luis LOPEZ PA-C documented in this encounterThe [facility] Instructions* Patient Instructions* Dru Sahu - 11/19/2022 2:26 PM EDT You have a small abrasion to right 2nd toe. Continue with neosporin and band aide until healed Once healed, can return to sneaker with the use of gel hammertoe pad Pursue diabetic shoe If you have any issues with sores, contact the office immediately Diabetes Foot Care Instructions When you have diabetes, proper foot care is very important. Poor foot care may lead to amputation of a foot or leg. As a person with diabetes, you are more vulnerable to foot problems, because diabetes can damage your nerves and reduce blood flow to your feet. Here are some diabetes foot care tips to follow: Wash and Dry Your Feet Daily Use mild soaps Use warm water Pat your skin dry; do not rub. Thoroughly dry your feet. After washing, use lotion on your feet to prevent cracking. Do not put lotion between your toes. Examine Your Feet Each Day Check the tops and bottoms of your feet. Have someone else look at your feet if you cannot see them. Check for dry, cracked skin. Look for blisters, cuts, scratches, or other sores. Check for redness, increased warmth, or tenderness when touching any area of your feet. Check for ingrown toenails, corns, and calluses. If you get a blister or sore from your shoes, do not pop it. Apply a bandage and wear a differentpair of shoes. Take Care of Your Toenails Cut toenails after bathing, when they are soft. Cut toenails straight across and smooth with a nail file. Avoid cutting into the corners of toes. Do not cut cuticles. If you have neuropathy (or decreased sensation in your feet) a outsole flexer should always cut your toenails. Be Careful When Exercising Walk and exercise in comfortable shoes. Do not exercise when you have open sores on your feet. Protect Your Feet With Shoes and Socks Never go barefoot. Always protect your feet by wearing shoes or hard-soled slippers or footwear. Avoid shoes with high heels and pointed toes. Avoid shoes that expose your toes or heels (such as open-toed shoes or sandals). These types of shoes increase your risk for injury and potential infections. Try on new footwear with the type of socks you usually wear. Do not wear new shoes for more than an hour at a time. Change your socks daily. Look and feel inside your shoes before putting them on to make sure there are no foreign objects orrough areas. Avoid tight socks. Wear natural-fiber socks (cotton, wool, or a cotton-wool blend). Wear special shoes if your health care provider recommends them. Wear shoes/boots that will protect your feet from various weather conditions (cold, moisture, etc.). Make sure your shoes fit properly. If you have neuropathy (nerve damage), you may not notice that your shoes are too tight. Perform the footwear test described below. Footwear Test Use this simple test to see if your shoes fit correctly: Stand on a piece of paper. (Make sure you are standing and not sitting, because your foot changes shape when you stand.) Trace the outline of your foot. Trace the outline of your shoe. Compare the tracings: Is the shoe too narrow? Is your foot crammed into the shoe? The shoe should be at least 1/2 inch longer than your longest toe and as wide as your foot. Proper Shoe Choices The following types of shoes are best for people with diabetes Closed toes and heels Leather uppers without a seam inside At least 1/2 inch extra space at the end of your longest toe Inside of shoe should be soft with no rough areas Outer sole should be made of stiff material Shoes should be at least as wide as your feet Tips for Foot Care in Diabetes Don't wait to treat a minor foot problem if you have diabetes. Follow your health care provider's guidelines and first aid guidelines. Report foot injuries and infections to your health care provider immediately. Check water temperature with your elbow, not your foot. Do not use a heating pad on your feet. Do not cross your legs. Do not self-treat your corns, calluses, or other foot problems. Go to your health care provider or outsole flexer to treat these conditions. documented in this encounterThe [facility] History of Present illness Narrative* Dru Sahu - 11/19/2022 2:17 PM EDT Images from the original note were not included. FOLLOW UP PODIATRIC OFFICE VISIT Chief Complaint: This 57 year old who presents for follow up:right 2nd toe fracture Patient presents to clinic for follow-up right 2nd toe fracture She is using surgical shoe The pain is improving Her largest concern is the toe is starting to contract upwards PAIN EVALUATION 11/19/2022 1356 Pain Level: 2 Pain Location: Other: See Comment bilateral feet Description: Numbness Duration Amount of Time: 1 Duration Units: Months Frequency: Intermittent Intervention/Comfort measure: Reposition;Relaxation Hemoglobin A1C Date Value Ref Range Status 05/21/2022 6.5 (H) 4.3 - 5.6 % Final Comment: [place] [employer] guidelines indicate that patients with HgbA1c in the range 5.7-6.4% are at increased risk for development of diabetes, and intervention by lifestyle modification may be beneficial. HgbA1c greater or equal to 6.5% is considered diagnostic of diabetes. PCP: Santhosh Holden MD PAST MEDICAL HISTORY Diagnosis Date Anxiety Powers's esophagus Bipolar 1 disorder (HCC) Dr. Orozco, psychiatry Chronic headaches Coronary-myocardial bridge DDD (degenerative disc disease) Depression 01/05/2015 Essential tremor TK tremor Fibromyalgia GERD (gastroesophageal reflux disease) HTN (hypertension) Hyperlipidemia Hypothyroid Liver fibrosis Mild CAD 08/22/2019 Neuropathy Non-melanoma skin cancer 03/08/2021 Obstructive sleep apnea PTSD (post-traumatic stress disorder) PVD (peripheral vascular disease) ([facility]) Sciatica Shoulder injury Type II or unspecified type diabetes mellitus without mention of complication, not stated as uncontrolled Current Outpatient Medications Medication Sig pantoprazole DR (PROTONIX) 40 mg tablet Take 1 tablet by mouth twice daily. gabapentin (NEURONTIN) 600 mg tablet Take 1 tablet by mouth three times daily for 180 days. gabapentin (NEURONTIN) 300 mg capsule Take 1 capsule by mouth three times daily for 30 days. carbidopa-levodopa (SINEMET) 25-100 mg per tablet Take 1 tablet by mouth three times daily. lisinopril (ZESTRIL) 5 mg tablet Take 1 tablet by mouth once daily. rosuvastatin (CRESTOR) 5 mg tablet Take 1 tablet by mouth daily at bedtime. tiZANidine (ZANAFLEX) 4 mg tablet Take 1 tablet by mouth every 8 hours as needed. ferrous sulfate 325 mg (65 mg iron) tablet Take 1 tablet by mouth twice daily with meals. thyroid, pork, (ARMOUR THYROID) 60 mg tablet Take 1 tablet by mouth twice daily. ondansetron (ZOFRAN) 4 mg tablet Take 1 tablet by mouth once daily as needed. VYVANSE 20 mg capsule prochlorperazine (COMPAZINE) 10 mg tablet Take 1 tablet by mouth twice daily as needed (migraine). Aluminum Hydrox-Magnesium Carb (GAVISCON EXTRA STRENGTH) 254-237.5 mg/5 mL susp Take 15 mL by mouthat bedtime as needed. PEG 400-propylene glycol (SYSTANE ULTRA) 0.4-0.3 % ophthalmic solution Use 1 Drop in both eyes twice daily. Blood-Glucose Meter (FREESTYLE LITE METER) monitoring kit Freestyle LITE Meter Kit -Test blood sugars one time daily. DX E11.40 blood sugar diagnostic (FREESTYLE LITE STRIPS) test strip Test blood sugar(s) once times daily. Dx:E11.40 Lancets lancets Test blood sugar(s) one time daily. Dx: Other DM Code E11.40 Insulin: No cephALEXin (KEFLEX) 500 mg capsule Take 1 capsule by mouth three times daily. acetaminophen (TYLENOL EXTRA STRENGTH) 500 mg tablet Take 2 tablets by mouth every 8 hours as needed for Pain. nitroglycerin sublingual (NITROQUICK) 0.3 mg SL tablet Dissolve 0.3 mg under the tongue every 5 minutes as needed. COMPOUNDED PRESCRIPTION Initiate AutoPAP @ 10-20 cm of water with humidification mask (per patient preference) optional chin strap (if indicated) and lifetime supplies ([facility]) DX: KRZYSZTOF G47.33 multivit with minerals/lutein (MULTIVITAMIN 50 PLUS ORAL) Take 1 tablet by mouth once daily. COMPOUNDED PRESCRIPTION Diabetic shoes One pair CPAP CPAP with humidification. Mask (per patient preference) optional chin strap (if indicated) , filters, tubing, humidifier and lifetime supplies. lamoTRIgine (LAMICTAL) 200 mg tablet Take 1 tablet by mouth twice daily. clonazePAM (KLONOPIN) 1 mg tablet 1 mg three times daily. vortioxetine (TRINTELLIX) 20 mg tablet Take 1 tablet by mouth once daily. aspirin 81 mg chewable tablet Take 1 tablet by mouth once daily. CPAP Please provide supplies. Mask per preference, tubing, filters, humidity. Lifetime Supplies. Dx: G47.33 COMPOUNDED PRESCRIPTION Lightweight wheelchair DX: DDD, neuropathy Wheel Chair issac DX: debility COMPOUNDED PRESCRIPTION EX-LARGE BLOOD PRESSURE CUFF KIT DX I10 Blood Pressure Test Kit-Large (QUICK RESPONSE BP MONITOR) kit 1 Kit once daily. buPROPion HCl 200 mg 12 hr tablet Take 200 mg by mouth twice daily. metoprolol succinate ER (TOPROL XL) 25 mg 24 hr tablet Take 1 tablet by mouth once daily. metFORMIN ER (GLUCOPHAGE XR) 500 mg 24 hr tablet Take 3 tablets by mouth daily with breakfast. No current facility-administered medications for this visit. ALLERGIES Allergen Reactions Cat Hair Standardiz* Itching Eyes get really red, if cat is too close, can't breathe Cats Itching Eyes get really red, if cat is too close, can't breathe Citric Acid Intolerance Mold Spores Other: See Comments Flu like symptoms PAST SURGICAL HISTORY Procedure Laterality Date COLONOSCOPY FLX DX W/COLLJ SPEC WHEN PFRMD 01/10/2015 Colonoscopy DIAGNOSTIC ARTHROSCOPY SHOULDER +- SYNOVIAL BX Left 05/21/2018 Left shoulder arthroscopic subacromial decompression, open distal clavicle excision and manipulation under anesthesia EGD 2019 ENDOMETRIAL ABLATION WITH US GUIDANCE 2007 ESOPHAGOGASTRODUODENOSCOPY TRANSORAL DIAGNOSTIC 01/10/2015 EGD ESOPHAGOGASTRODUODENOSCOPY TRANSORAL DIAGNOSTIC 01/10/2016 EGD (MAC) GASTRIC BYPASS HX 03/2016 gastric sleeve HYSTERECTOMY, REVISE VAGINA; COLPECTOMY 05/16/2020 INJECTION back injections x3 PAST SURGICAL HISTORY OF 05/2020 Partial Hysterectomy w/ bladder sling TUBAL LIGATION HX 1988 Physical Exam: OBJECTIVE: Constitutional: Pt is a well developed 57 year old female who is alert, oriented, cooperative and in no apparent distress. Eyes: Following during examination. No redness or drainage. Respiratory: RR normal and nonlabored. Even breathing. No evidence of distress. Psychology: Patient is engaged during conversation. Normal affect and mood. Does not appear depressed or anxious. NVSI unchanged from previous visit. Dermatological: Nails 1-5 b/l are normal. Webspaces clean and dry 1-4 b/l. Skin appears well hydrated and supple. good color, texture, turgor. No open lesions present. No callosities present. Musculoskeletal/Orthopaedic: Patient has no pain to palpation of right 2nd toe Slightly dorsal contracture of right 2nd toe at mtpj Xrays reviewed. There is partially healed fracture of right 2nd toe proximal phalanx ASSESSMENT: (M20.41) Hammertoe of right foot (primary encounter diagnosis) (E11.49) Other diabetic neurological complication associated with type 2 diabetes mellitus (HCC) PLAN: Discussed fracture of right 2nd toe. It is partially healed. Unfortunately, she has slight dorsal contracture of right 2nd toe. I suspect she has insufficiency of the plantar plate. I discussed options for patinet not limited to padding, taping of the toe, wider shoes I also discussed surgical options for patient. While examining patient, I had her stand up. She hassignificant balance issue, much worse than when we performed derotational arthropalsty on her left 5th toe. I feel that any reconstruction on her 2nd toe will place her at risk of falling. I do not be lieve she is surgical candidate for 2nd toe out of fear that she will not be able to handle the post-op nonweightbearing. She agrees. If she has pain in future, she can consider amputation. Recommend wider shoes, use of diabetic shoes and/or padding. On exam, she has superficial abrasion of the 2nd toe. Recommend topical antibiotic until healed. Can use surgical shoe until healed. Diabetie education performed. Dru Sahu DPM * Hollie Diana LPN - 11/19/2022 1:53 PM EDT AMB ROOMING INTAKE FLOWSHEET DATA Pain Pain Level: 2 Pain Location: Other: See Comment (bilateral feet) Description: Numbness Duration Amount of Time: 1 Duration Units: Months Frequency: Intermittent Intervention/Comfort measure: Reposition, Relaxation Patient presents with: Right Foot - Established Patient, Fracture, Pain Hollie Diana LPN documented in this encounterThe [facility]23 Miscellaneous Notes* Telephone Encounter - Ivette Jerome RN - 11/19/2022 9:25 AM EDT Verbal ok given to Jaya with [facility]. Ivette Jerome RN * Telephone Encounter - Santhosh Holden MD - 11/19/2022 9:15 AM EDT Ok * Telephone Encounter - Ivette Jerome RN - 11/19/2022 9:10 AM EDT Jaya with [facility] Pharmacy calls to verify that provider wants both Gabapentin 600 mg and 300 mg prescriptions filled. Jaya requests verbal confirmation be called back to [phone] Holden. Ivette Jerome RN documented in this encounterThe [facility] System08-[facility]23 Miscellaneous Notes* Telephone Encounter - Melissa Cueva LPN - 11/19/2022 8:23 AM EDT Patient phones requesting refills as follows: Requested Prescriptions Pending Prescriptions Disp Refills pantoprazole DR (PROTONIX) 40 mg tablet 180 tablet 1 Sig: Take 1 tablet by mouth twice daily. gabapentin (NEURONTIN) 600 mg tablet 270 tablet 1 Sig: Take 1 tablet by mouth three times daily for 180 days. gabapentin (NEURONTIN) 300 mg capsule 90 capsule 2 Sig: Take 1 capsule by mouth three times daily for 30 days. ELVIN-05/29/22 Labs-05/29/22 NOV-12/05/22 Please review and advise. Melissa Cueva LPN documented in this encounterThe [facility] System08-18-2023 Instructions* Patient Instructions* Jovanna Prince MD - 11/07/2022 11:29 AM EDT Let's start a medication called carbidopa/levodopa. It's a symptomatic medication for Parkinson's Disease that helps replace dopamine to improve movement symptoms. Take a half pill three times a day for the first week, then increase to a full pill three times a day. It works best when taken before m eals, but if you get nauseous when taking it, eating a snack with it (preferably without protein) is ok. Watch out for side effects such as nausea, light- headedness, hallucinations, or extra movements (dyskinesia). Breakfast Lunch Dinner Week 1 03/24/03/24 Week 2 documented in this encounterThe [facility] System08-18-2023 History of Present illness Narrative* Jovanna Prince MD - 11/07/2022 11:03 AM EDT FOLLOW UP NOTE Subjective Inés Orellana Workman is a 57 year old female who presents for follow up. CC: Tremor Summary of prior care: Right-handed female with a history of PTSD, bipolar disorder, fibromyalgia, migraine, and tremor amongst other conditions who presents for evaluation of tremor. Her examinationdemonstrates mixed tremor appearance with features of functional tremor. Complicated presentation pr imarily due to the large amount of neuropsychiatrically active medications she is on. Wellbutrin, Austedo, and Vyvanse can all contribute to tremor. Suggested tapering off Austedo for now, consider other changes in the future. For migraine, will do medrol dose ryne + compazine bridge treatment. Afterwards can take compazine. Hesitant to add additional prescription medications due to polypharmacy. Will try migraine supplements B2 and Mg. HPI Current Issues 1. Tremor - Feels like worsened with stopping Austedo - Mouth might pull to one side at times, left - Feels like oral tremor has worsened - Sense of smell is fine. Has constipation. Sleeps alone. 2. Migraine - Have been better since the last visit, getting them uncommonly - Gets milder headaches at times Headache description: - Aura: Notes possibly seeing things hard to explain - Onset: More in the morning - Location: Typically one side or the other, uncommonly back of head - Pain: Pressure, sharp - A/w: (+)photophobia / (+)phonophobia / (+)nausea / (+/-)osmophobia / (- )autonomic sx - Positional?: n/a - Improves with: Sleep - Triggers: Certain smells - Family Hx: Mom Current preventive: Gabapentin for fibromyalgia / neuropathy, LTG for mood, metoprolol for heart Current abortive: Compazine PRN Previous preventives: Never been prescribed something specific for it, meds she has been on in the past include verapamil, metoprolol, propranolol. Previous abortives: n/a Current meds: - Wellbutrin 200 mg BID - Vyvanse 20 mg daily - Trintellix 20 mg daily - Lamotrigine 200 mg BID - Clonazepam 1 mg TID - Gabapentin 900 mg TID (FM, PN) - Metoprolol ER 25 mg daily Current Outpatient Medications Medication Sig Dispense Refill lisinopril (ZESTRIL) 5 mg tablet Take 1 tablet by mouth once daily. 90 tablet 0 rosuvastatin (CRESTOR) 5 mg tablet Take 1 tablet by mouth daily at bedtime. 90 tablet 1 tiZANidine (ZANAFLEX) 4 mg tablet Take 1 tablet by mouth every 8 hours as needed. 20 tablet 3 ferrous sulfate 325 mg (65 mg iron) tablet Take 1 tablet by mouth twice daily with meals. 60 tablet5 gabapentin (NEURONTIN) 300 mg capsule Take 1 capsule by mouth three times daily for 30 days. 90 capsule 2 thyroid, pork, (ARMOUR THYROID) 60 mg tablet Take 1 tablet by mouth twice daily. 60 tablet 5 ondansetron (ZOFRAN) 4 mg tablet Take 1 tablet by mouth once daily as needed. 10 tablet 1 metoprolol succinate ER (TOPROL XL) 25 mg 24 hr tablet Take 1 tablet by mouth once daily. 30 tablet5 metFORMIN ER (GLUCOPHAGE XR) 500 mg 24 hr tablet Take 3 tablets by mouth daily with breakfast. 90 tablet 5 VYVANSE 20 mg capsule prochlorperazine (COMPAZINE) 10 mg tablet Take 1 tablet by mouth twice daily as needed (migraine). 20 tablet 5 Aluminum Hydrox-Magnesium Carb (GAVISCON EXTRA STRENGTH) 254-237.5 mg/5 mL susp Take 15 mL by mouthat bedtime as needed. 335 mL 3 PEG 400-propylene glycol (SYSTANE ULTRA) 0.4-0.3 % ophthalmic solution Use 1 Drop in both eyes twice daily. [address] (PROTONIX) 40 mg tablet Take 1 tablet by mouth twice daily. 180 tablet 1 gabapentin (NEURONTIN) 600 mg tablet Take 1 tablet by mouth three times daily for 180 days. 270 tablet 1 Blood-Glucose Meter (FREESTYLE LITE METER) monitoring kit Freestyle LITE Meter Kit -Test blood sugars one time daily. DX E11.40 1 Each 0 blood sugar diagnostic (FREESTYLE LITE STRIPS) test strip Test blood sugar(s) once times daily. Dx:E11.40 25 Strip 3 Lancets lancets Test blood sugar(s) one time daily. Dx: Other DM Code E11.40 Insulin: No 100 Each 11 cephALEXin (KEFLEX) 500 mg capsule Take 1 capsule by mouth three times daily. 21 capsule 0 acetaminophen (TYLENOL EXTRA STRENGTH) 500 mg tablet Take 2 tablets by mouth every 8 hours as needed for Pain. 40 tablet 0 nitroglycerin sublingual (NITROQUICK) 0.3 mg SL tablet Dissolve 0.3 mg under the tongue every 5 minutes as needed. AUSTEDO 12 mg tab Take 12 mg by mouth twice daily. COMPOUNDED PRESCRIPTION Initiate AutoPAP @ 10-20 cm of water with humidification mask (per patient preference) optional chin strap (if indicated) and lifetime supplies ([facility]) DX: KRZYSZTOF G47.33 1 Device 0 multivit with minerals/lutein (MULTIVITAMIN 50 PLUS ORAL) Take 1 tablet by mouth once daily. COMPOUNDED PRESCRIPTION Diabetic shoes One pair 1 Each 0 CPAP CPAP with humidification. Mask (per patient preference) optional chin strap (if indicated) , filters, tubing, humidifier and lifetime supplies. 1 Device 0 lamoTRIgine (LAMICTAL) 200 mg tablet Take 1 tablet by mouth twice daily. 60 tablet 5 clonazePAM (KLONOPIN) 1 mg tablet 1 mg three times daily. vortioxetine (TRINTELLIX) 20 mg tablet Take 1 tablet by mouth once daily. aspirin 81 mg chewable tablet Take 1 tablet by mouth once daily. 0 CPAP Please provide supplies. Mask per preference, tubing, filters, humidity. Lifetime Supplies. Dx: G47.33 1 Device 0 COMPOUNDED PRESCRIPTION Lightweight wheelchair DX: DDD, neuropathy 1 Each 0 Wheel Chair issac DX: debility 1 Device 0 COMPOUNDED PRESCRIPTION EX-LARGE BLOOD PRESSURE CUFF KIT DX I10 1 Kit 0 Blood Pressure Test Kit-Large (QUICK RESPONSE BP MONITOR) kit 1 Kit once daily. 1 Kit 0 buPROPion HCl 200 mg 12 hr tablet Take 200 mg by mouth twice daily. No current facility-administered medications for this visit. REVIEW OF SYSTEMS Her ROS was positive for that mentioned in the HPI. Otherwise a 10-point ROS was completed and was negative. Objective OBJECTIVE 11/07/22 1106 BP: 151/75 BP Site: Left Arm BP Position: Sitting BP Cuff Size: Large Adult Pulse: 62 SpO2: 97% Weight: 118.4 kg (261 lb) Height: 172.1 cm (5' 7.75) General: General Appearance: Well appearing, alert, in no acute distress, well-hydrated, well nourished. Head: Normocephalic Neck: Supple Heart: RRR Neurologic Exam: Mental Status: She is alert. She is fully oriented. Attention is intact. Memory is intact. Languageshows normal comprehension and fluency. Affect is appropriate. Cranial Nerves: Extraocular movements show full and smooth pursuits. No nystagmus. Visual sanchez are full to confrontation. Facial activation is symmetric. Hearing is intact to conversation. There isno hypomimia. There is no hypophonia. There is no dysarthria. Tongue is midline. Palate elevates sym metrically. Shoulder shrug is normal. Motor: Muscle bulk is normal. Muscle power is full. No bradykinesia or rigidity. There are leg movements that look like severe akithisia or stereotypy - not present when legs straight or effectively distracted. Rest tremor primarily in right hand, reduces with tapping of left hand but difficult for her to do rhythmic tapping of left hand. Constant jaw tremor. Writing sample without tremor. Spirals not overly consistent with tremor. Subtle bilateral postural tremor, doesn't seem to entrain. Minimal kinetic tremor. No rigidity. No clear bradykinesia. Y-Y head tremor intermittent. Sensory: Intact to fine touch Coordination: Finger to nose is smooth without ataxia. Gait/station: Uses walker for ambulation, no tremor during gait DATA REVIEW Actual films/image/tracing reviewed and summarized as follows: n/a Old records reviewed and summarized as follows: TSH 0.372, B12 1338, folate 7.2, B1 131, A1c 6.5 MRI Brain 07/09/20 atrophy out of proportion to age Reviewed prior records from [facility] Cagle / Dr. Mary / Dr. Ascecnio / Jacqueline Johnson Assessment/Plan ASSESSMENT & PLAN: Inés Orellana Workman is a 57 year old right-handed female with a history of PTSD, bipolar disorder, fibromyalgia, migraine, and tremor amongst other conditions who presents for evaluation of tremor. 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 1. Tremor - Has mixed movements including chin tremor, possibly distractible right hand tremor, and LE movements more stereotypy / akathisia. - Discussed options and will retry levodopa titrate to 100 mg TID. Discussed side effects. 2. Migraine - Improved since last visit, monitor Follow-up: 4 months Risks & Side Effects of Newly Prescribed Medication, Discussed with Patient: YES Jovanna Prince MD [facility] documented in this encounterThe [facility]08-15-2023 Miscellaneous Notes* Telephone Encounter - Martha Sanchez OCCA - 11/04/2022 11:02 AM EDT Patient has been identified by name and date of : Yes Patient phones for refill(s): Requested Prescriptions Pending Prescriptions Disp Refills lisinopril (ZESTRIL) 5 mg tablet 90 tablet 0 Sig: Take 1 tablet by mouth once daily. Date of last office visit in primary care: ELVIN 05/29/22 NOV 12/05/22 Last 2 Encounter Wt Readings: Date: Wt: 10/29/2022 120.5 kg (265 lb 9.6 oz) 08/06/2022 118.8 kg (262 lb) Please advise. Thank you. DAVID Larios documented in this encounterThe [facility]08-09-2023 History of Present illness Narrative* Teresa Araiza APRN.CNP - 10/29/2022 3:11 PM EDT [facility] TRI[facility] NOTE: [facility] to [facility] following falls x 2 due to losing her balance at home. Once she walked into a wall and then fell back wards, next time she leaned on a table and fell down. She has pain and weakness on her whole right side of her body. She is triaged to ER for further evaluation and treatment. She verbalized understanding. Report sent to [facility] via [facility]. Teresa Araiza APRN.CHILO documented in this encounterThe [facility] System08-07-2023 Miscellaneous Notes* Telephone Encounter - Elle Andrews MA - 10/27/2022 1:31 PM EDT Patient has been identified by name and date of : Yes Requested Prescriptions Pending Prescriptions Disp Refills rosuvastatin (CRESTOR) 5 mg tablet 90 tablet 1 Sig: Take 1 tablet by mouth daily at bedtime. tiZANidine (ZANAFLEX) 4 mg tablet 20 tablet 3 Sig: Take 1 tablet by mouth every 8 hours as needed. ferrous sulfate 325 mg (65 mg iron) tablet 60 tablet 5 Sig: Take 1 tablet by mouth twice daily with meals. RX INSTRUCTIONS: Patient aware RX will be sent to pharmacy. No need to notify patient. Patient last office visit: 05/29/22 Patient next office visit: 12/05/22 Elle Andrews MA documented in this encounterThe [facility] System07-26-2023 History of Present illness Narrative* Hollie Diana LPN - 10/15/2022 2:[address] Sahu, Inés was provided with post op shoe, size M, and instructed/educated in its application, wear, and care. All questions were answered, and patient was able to demonstrate competencewith the necessary skills to utilize the above equipment. Hollie Diana LPN * Dru Sahu - 10/15/2022 2:20 PM EDT Chief Complaint: This 57 year old female who presents with chief complaint:right 2nd toe fracture HPI Patient presents to clinic for evaluation of right 2nd toe Patient does not recall when she bumped her toe but it happened some time after her last appointment. No one ever called office to have patient seen. Patient is not wearing any surgical shoe. She is not doing anythign for the fracture She does have pain and swelling in the toe She has xrays to review. PAIN EVALUATION 10/15/2022 1412 Pain Level: 6 Pain Location: Foot-Right Duration Units: Months Frequency: Intermittent Intervention/Comfort measure: Relaxation;Reposition Hemoglobin A1C (%) Date Value 05/21/2022 6.5 10/11/2021 6.1 12/04/2020 5.3 05/04/2020 5.5 02/24/2020 5.4 08/31/2019 6.0 09/24/2018 7.8 PCP: Santhosh Holden MD PAST MEDICAL HISTORY Diagnosis Date Anxiety Powers's esophagus Bipolar 1 disorder (HCC) Dr. Orozco, psychiatry Chronic headaches Coronary-myocardial bridge DDD (degenerative disc disease) Depression 01/05/2015 Essential tremor TK tremor Fibromyalgia GERD (gastroesophageal reflux disease) HTN (hypertension) Hyperlipidemia Hypothyroid Liver fibrosis Mild CAD 08/22/2019 Neuropathy Non-melanoma skin cancer 03/08/2021 Obstructive sleep apnea PTSD (post-traumatic stress disorder) PVD (peripheral vascular disease) (HCC) Sciatica Shoulder injury Type II or unspecified type diabetes mellitus without mention of complication, not stated as uncontrolled Current Outpatient Medications Medication Sig ferrous sulfate 325 mg (65 mg iron) tablet Take 1 tablet by mouth twice daily with meals. gabapentin (NEURONTIN) 300 mg capsule Take 1 capsule by mouth three times daily for 30 days. tiZANidine (ZANAFLEX) 4 mg tablet Take 1 tablet by mouth every 8 hours as needed. thyroid, pork, (ARMOUR THYROID) 60 mg tablet Take 1 tablet by mouth twice daily. ondansetron (ZOFRAN) 4 mg tablet Take 1 tablet by mouth once daily as needed. metoprolol succinate ER (TOPROL XL) 25 mg 24 hr tablet Take 1 tablet by mouth once daily. metFORMIN ER (GLUCOPHAGE XR) 500 mg 24 hr tablet Take 3 tablets by mouth daily with breakfast. VYVANSE 20 mg capsule prochlorperazine (COMPAZINE) 10 mg tablet Take 1 tablet by mouth twice daily as needed (migraine). lisinopril (ZESTRIL) 5 mg tablet Take 1 tablet by mouth once daily. rosuvastatin (CRESTOR) 5 mg tablet Take 1 tablet by mouth daily at bedtime. Aluminum Hydrox-Magnesium Carb (GAVISCON EXTRA STRENGTH) 254-237.5 mg/5 mL susp Take 15 mL by mouthat bedtime as needed. PEG 400-propylene glycol (SYSTANE ULTRA) 0.4-0.3 % ophthalmic solution Use 1 Drop in both eyes twice daily. pantoprazole DR (PROTONIX) 40 mg tablet Take 1 tablet by mouth twice daily. gabapentin (NEURONTIN) 600 mg tablet Take 1 tablet by mouth three times daily for 180 days. Blood-Glucose Meter (FREESTYLE LITE METER) monitoring kit Freestyle LITE Meter Kit -Test blood sugars one time daily. DX E11.40 blood sugar diagnostic (FREESTYLE LITE STRIPS) test strip Test blood sugar(s) once times daily. Dx:E11.40 Lancets lancets Test blood sugar(s) one time daily. Dx: Other DM Code E11.40 Insulin: No acetaminophen (TYLENOL EXTRA STRENGTH) 500 mg tablet Take 2 tablets by mouth every 8 hours as needed for Pain. nitroglycerin sublingual (NITROQUICK) 0.3 mg SL tablet Dissolve 0.3 mg under the tongue every 5 minutes as needed. AUSTEDO 12 mg tab Take 12 mg by mouth twice daily. COMPOUNDED PRESCRIPTION Initiate AutoPAP @ 10-20 cm of water with humidification mask (per patient preference) optional chin strap (if indicated) and lifetime supplies ([facility]) DX: KRZYSZTOF G47.33 multivit with minerals/lutein (MULTIVITAMIN 50 PLUS ORAL) Take 1 tablet by mouth once daily. COMPOUNDED PRESCRIPTION Diabetic shoes One pair CPAP CPAP with humidification. Mask (per patient preference) optional chin strap (if indicated) , filters, tubing, humidifier and lifetime supplies. lamoTRIgine (LAMICTAL) 200 mg tablet Take 1 tablet by mouth twice daily. clonazePAM (KLONOPIN) 1 mg tablet 1 mg three times daily. vortioxetine (TRINTELLIX) 20 mg tablet Take 1 tablet by mouth once daily. aspirin 81 mg chewable tablet Take 1 tablet by mouth once daily. CPAP Please provide supplies. Mask per preference, tubing, filters, humidity. Lifetime Supplies. Dx: G47.33 COMPOUNDED PRESCRIPTION Lightweight wheelchair DX: DDD, neuropathy Wheel Chair issac DX: debility COMPOUNDED PRESCRIPTION EX-LARGE BLOOD PRESSURE CUFF KIT DX I10 Blood Pressure Test Kit-Large (QUICK RESPONSE BP MONITOR) kit 1 Kit once daily. buPROPion HCl 200 mg 12 hr tablet Take 200 mg by mouth twice daily. cephALEXin (KEFLEX) 500 mg capsule Take 1 capsule by mouth three times daily. (Patient not taking: Reported on 10/15/2022) No current facility-administered medications for this visit. ALLERGIES Allergen Reactions Cat Hair Standardiz* Itching Eyes get really red, if cat is too close, can't breathe Cats Itching Eyes get really red, if cat is too close, can't breathe Citric Acid Intolerance Mold Spores Other: See Comments Flu like symptoms PAST SURGICAL HISTORY Procedure Laterality Date COLONOSCOPY FLX DX W/COLLJ SPEC WHEN PFRMD 01/10/2015 Colonoscopy DIAGNOSTIC ARTHROSCOPY SHOULDER +- SYNOVIAL BX Left 05/21/2018 Left shoulder arthroscopic subacromial decompression, open distal clavicle excision and manipulation under anesthesia EGD 2018 ENDOMETRIAL ABLATION WITH US GUIDANCE 2007 ESOPHAGOGASTRODUODENOSCOPY TRANSORAL DIAGNOSTIC 01/10/2015 EGD ESOPHAGOGASTRODUODENOSCOPY TRANSORAL DIAGNOSTIC 01/10/2016 EGD (MAC) GASTRIC BYPASS HX 03/2016 gastric sleeve HYSTERECTOMY, REVISE VAGINA; COLPECTOMY 05/16/2020 INJECTION back injections x3 PAST SURGICAL HISTORY OF 05/2020 Partial Hysterectomy w/ bladder sling TUBAL LIGATION HX 1988 FAMILY HISTORY Problem Relation Age of Onset Heart Father other (parkinson's) Father Diabetes Mother Stroke Mother Cancer Mother melanoma other (Other) Sister in infancy Mental illness Brother Alcohol/Drug Brother Stroke Maternal Grandmother Alzheimer's Disease Maternal Grandmother Diabetes Paternal Grandmother Bipolar disorder Daughter other (Other) Daughter behavioral disorder ADD/ADHD Son Bipolar disorder Son other (behavioral conduct disorder) Grandchild Glaucoma No Family History Macular Degen No Family History Social History Tobacco Use Smoking status: Former Packs/day: 1.50 Years: 11.00 Total pack years: 16.50 Types: Cigarettes Quit date: 03/23/1989 Years since quittin.5 Smokeless tobacco: Never Vaping Use Vaping Use: Never used Substance Use Topics Alcohol use: No Drug use: No REVIEW OF SYSTEMS GENERAL: Negative for Malaise, significant weight loss, fever RESPIRATORY: Negative for cough, wheezing and shortness of breath CARDIOVASCULAR: Negative for chest pain, leg swelling and palpitations GI: Negative for abdominal discomfort, blood in stools or black stools and change in bowel habits : Negative for dysuria, frequency and incontinence MUSCULOSKELETAL: Negative for joint pain or swelling, back pain, and muscle pain. SKIN: Negative for lesions, rash, and itching. HEMATOLOGY/LYMPHOLOGY Negative for prolonged bleeding, bruising easily, and swollen nodes. ENDOCRINE: Negative for cold or heat intolerance, polyuria, polydipsia and goiter. NEURO: negative Physical Exam: Constitutional: Pt is a well developed 57 year old female who is alert, oriented and cooperative Eyes: Following during examination. No redness or drainage. Respiratory: RR normal and nonlabored. Even breathing. No evidence of distress or shortness of breath. Psychology: Patient is engaged during conversation. Normal affect and mood. Does not appear depressed or anxious during encounter. Vascular: Dorsalis pedis and posterior tibial pulses palpable as b/l Capillary Fill time < 5 seconds to digits 1-5 b/l Skin temperature warm to warm proximal to distal b/l Hair growth present to digits Neurological: intact light touch/epicritic sensation b/l intact protective sensation no significant neurological deficits Dermatological: Nails 1-5 b/l appear normal. Webspaces clean and dry 1-4 b/l. Skin appears well hydrated and supple. good color, texture, turgor. No open lesions present. No callosities present. Musculoskeletal/Orthopaedic: Patient has pain to palpation of right 2nd toe Foot type is neutral structurally AJ ROM is decreased with knee extended and flexed 1st MPJ is decreased when loaded and no pain or crepitus are noted with ROM. Rigid hammertoe of right 2nd pipj and right 5th pipj. There is flexible hammertoe of right 3rd and right 4th toe MTJ, STJ are full and free of pain and crepitus. +5/5 muscle strength dorsiflexion, plantarflexion, inversion, eversion b/l Radiographs: 3 views right foot ordered October 15, 2022: I have personally reviewed and interpreted these XR myself: ununited fracture of base of proximal phalanx of right 2nd toe ASSESSMENT: (S92.501A) Closed displaced fracture of phalanx of lesser toe of right foot, unspecified phalanx, initial encounter (primary encounter diagnosis) (M20.41) Hammertoe of right foot PLAN: 1. History and physical examination performed. 2. XR reviewed with patient and interpreted today 3. Discussed fracture of right 2nd toe. Fracture is ununited at this time. Would recommend firm sole surgical shoe and repeat xrays in 1 month 4. Discussed hammetoe of right 2-5 toes. Would continue with wider shoes to prevent rubbing. Could consider surgery but would want the 2nd toe to heal prior and I do feel her balance needs to improveprior to any surgery. Dru Sahu, BRITTNY Podiatry [address] [facility] [address] Dept: [phone] Dept * Sade Rodriguez RN - 10/15/2022 2:10 PM EDT AMB ROOMING INTAKE FLOWSHEET DATA Pain Pain Level: 6 Pain Location: Foot-Right Duration Units: Months Frequency: Intermittent Intervention/Comfort measure: Relaxation, Reposition Patient presents with: Right Foot - Established Patient, Follow Up, Pain Patient presents for fracture follow up to right second toe. Unsure when it happened. X-Ray on 05/29/22 shows no fracture, X-Ray of right foot done today. Also follow up to discuss hammer toe pain, anddiabetic foot exam. documented in this encounterThe [facility]07-26-2023 Instructions* Patient Instructions* Dru Sahu - 10/15/2022 2:32 PM EDT Ambulate in post-op shoe Use walker or cane for balance Follow-up xray in 1 month documented in this encounterThe [facility] System07-26-2023 History of Present illness Narrative* Aranza Yoon RT(R) - 10/15/2022 1:40 PM EDT Radiology Service Progress Note PATIENT NAME: Inés Shanks DATE OF SERVICE: October 15, 2022 TIME: 1:31 PM PATIENT IDENTITY VERIFICATION COMPLETED USING TWO (2) IDENTIFIERS: Name and Date of confirmedby patient verbally. FALL SCREENING: Has the patient had 2 falls in the last year or 1 fall with injury or currently using an Ambulatory Assistive Device (Walker, Cane, Wheelchair, Crutches, etc.)? No PATIENT GENDER DATA: Female. status: : No status: NO. PATIENT RELEVANT IMPLANT DATA REVIEWED: Yes RADIOLOGY DEPARTMENT: General X-ray: Exam(s) Completed: Lower Extremity X- Ray(s): Foot, Right PERIPHERAL IV DATA: Not applicable SIGNED BY: RT Дмитрий(R) October 15, 2022 1:31 PM documented in this encounterThe [facility]07-11-2023 Miscellaneous Notes* Telephone Encounter - Brittany Joshua Ma - 09/30/2022 10:36 AM EDT Images from the original note were not included. PA approved * Telephone Encounter - Brittany Joshua Ma - 09/30/2022 10:29 AM EDT Received fax PA for [employer] thyroid Prior Authorization has been completed online at [employer] for [employer] thyroid, will await response. [id number] Please keep encounter open until final decision has been received and documented from insurance company. Brittany Joshua MA documented in this encounterThe [facility]07-06-2023 Miscellaneous Notes* Telephone Encounter - Nanette Katz LPN - 09/25/2022 11:40 AM EDT Patient has been identified by name and date of : Yes Patient phones for refill(s): Requested Prescriptions Pending Prescriptions Disp Refills ferrous sulfate 325 mg (65 mg iron) tablet 60 tablet 5 Sig: Take 1 tablet by mouth twice daily with meals. Date of last office visit in primary care: 05/29/2022 Please advise. Thank you. Nanette Katz LPN documented in this encounterThe [facility]06-30-2023 Miscellaneous Notes* Telephone Encounter - Erum Lopez RN - 09/19/2022 10:17 AM EDT Rx renewal declined. Not appropriate. ELVIN 08/16/20 post op. Erum Lopez RN September 19, 2022 10:19 AM documented in this encounterThe [facility] System06-27-2023 Miscellaneous Notes* Telephone Encounter - Nanette Katz LPN - 09/16/2022 1:38 PM EDT Patient has been identified by name and date of : Yes Patient phones for refill(s): Requested Prescriptions Pending Prescriptions Disp Refills gabapentin (NEURONTIN) 300 mg capsule 90 capsule 2 Sig: Take 1 capsule by mouth three times daily for 30 days. tiZANidine (ZANAFLEX) 4 mg tablet 20 tablet 3 Sig: Take 1 tablet by mouth every 8 hours as needed. thyroid, pork, (ARMOUR THYROID) 60 mg tablet 60 tablet 5 Sig: Take 1 tablet by mouth twice daily. ondansetron (ZOFRAN) 4 mg tablet 10 tablet 1 Sig: Take 1 tablet by mouth once daily as needed. Date of last office visit in primary care: 05/29/2022 Please advise. Thank you. Nanette Katz LPN documented in this encounterThe [facility] System06-14-2023 Miscellaneous Notes* Telephone Encounter - Rebecca Britton - 09/03/2022 10:52 AM EDT 3rd attempt to reach patient to check in and follow up on her message. [phone] voicemail box not set up; cannot leave message. Patient has read [employer] message. * Telephone Encounter - Rebecca Britton - 08/29/2022 12:03 PM EDT 2nd attempt to reach patient to check in and follow up on her message. [phone] voicemail box not set up; cannot leave message. * Telephone Encounter - Radha Cagle RN - 08/27/2022 2:02 PM EDT Called patient to check in and follow up on her message. [phone] voicemail box not set up; cannot leave message. documented in this encounterThe [facility] System06-07-2023 Miscellaneous Notes* Telephone Encounter - Pina Springer LPN - 08/27/2022 1:37 PM EDT Patient has been identified by name and date of : Yes Requested Prescriptions Pending Prescriptions Disp Refills metoprolol succinate ER (TOPROL XL) 25 mg 24 hr tablet 30 tablet 5 Sig: Take 1 tablet by mouth once daily. metFORMIN ER (GLUCOPHAGE XR) 500 mg 24 hr tablet 90 tablet 5 Sig: Take 3 tablets by mouth daily with breakfast. RX INSTRUCTIONS: Patient aware RX will be sent to pharmacy. No need to notify patient. Pina Springer LPN documented in this encounterThe [facility] System05-16-2023 Miscellaneous Notes* Telephone Encounter - Elle Andrews MA - 08/05/2022 9:13 AM EDT Patient has been identified by name and date of : Yes Requested Prescriptions Pending Prescriptions Disp Refills lisinopril (ZESTRIL) 5 mg tablet 90 tablet 0 Sig: Take 1 tablet by mouth once daily. RX INSTRUCTIONS: Patient aware RX will be sent to pharmacy. No need to notify patient. Patient last office visit: 05/29/22 Patient next office visit: 12/05/22 Elle Andrews MA documented in this encounterThe [facility]05-09-2023 Miscellaneous Notes* Telephone Encounter - Nanette Katz LPN - 07/29/2022 11:41 AM EDT Patient has been identified by name and date of : Yes Patient phones for refill(s): Requested Prescriptions Pending Prescriptions Disp Refills rosuvastatin (CRESTOR) 5 mg tablet 90 tablet 1 Sig: Take 1 tablet by mouth daily at bedtime. Date of last office visit in primary care: 05/29/2022 Next appointment scheduled 12/05/2022 Please advise. Thank you. Nanette Katz LPN documented in this [facility]04-27-2023 Miscellaneous Notes* Telephone Encounter - Melissa Cueva LPN - 07/17/2022 10:33 AM EDT Patient phones requesting refills as follows: Requested Prescriptions Pending Prescriptions Disp Refills tiZANidine (ZANAFLEX) 4 mg tablet 20 tablet 3 Sig: Take 1 tablet by mouth every 8 hours as needed. thyroid, pork, (ARMOUR THYROID) 60 mg tablet 60 tablet 5 Sig: Take 1 tablet by mouth twice daily. ondansetron (ZOFRAN) 4 mg tablet 10 tablet 1 Sig: Take 1 tablet by mouth once daily as needed. Aluminum Hydrox-Magnesium Carb (GAVISCON EXTRA STRENGTH) 254-237.5 mg/5 mL susp 335 mL 3 Sig: Take 15 mL by mouth at bedtime as needed. ELVIN-05/29/22 Labs-05/21/22 NOV-12/05/22 Please review and advise. Melissa Cueva LPN documented in this encounterThe [facility] System04-03-2023 Miscellaneous Notes* Telephone Encounter - Mayco Valladares LPN - 06/23/2022 9:35 AM EDT Patient phones requesting refills as follows: Requested Prescriptions Pending Prescriptions Disp Refills gabapentin (NEURONTIN) 300 mg capsule 90 capsule 2 Sig: Take 1 capsule by mouth three times daily for 30 days. ELVIN 05/29/22 NOV 12/05/22 Please review and advise. Mayco Valladares LPN documented in this [address]03-2023 Miscellaneous Notes* Telephone Encounter - Mayco Valladares LPN - 06/23/2022 9:34 AM EDT Patient phones requesting refills as follows: Requested Prescriptions Pending Prescriptions Disp Refills ferrous sulfate 325 mg (65 mg iron) tablet 60 tablet 5 Sig: Take 1 tablet by mouth twice daily with meals. ELVIN 05/29/22 NOV 12/05/22 Please review and advise. Mayco Valladares LPN documented in this encounterThe [facility]03-17-2023 Miscellaneous Notes* Telephone Encounter - Dulce Diallo Ma - 06/06/2022 12:04 PM EDT [employer] message sent to pt notifying her of results, recommendation and need to repeat lab in 3 months. If questions to contact the office. Dulce Diallo Ma * Telephone Encounter - Santhosh Holden MD - 06/06/2022 10:56 AM EDT Labs are all good. Trigs are up but slightly better than they had been. Work on starches and fats in the diet. Recheck lipids in three months documented in this encounterThe [facility] System03-17-2023 Miscellaneous Notes* Letter - Mammography Coordinator - 06/06/2022 10:56 AM EDT June 10, 2022 PID: [id number] Inés Shanks [id number] [id number] Dear Ms. Shanks, We are pleased to inform you that the results of your recent breast imaging exam on 06/06/2022 are normal. Early detection of cancer is very important. We also understand recommendations regarding breast cancer screening are controversial. Please discuss with your primary care provider which strategy is best for you and whether a mammogram is right for you. Your imaging studies and report will be kept [facility] at [facility] as part of your permanent medical record and are available for your continuing care. Thank you for allowing us to help in meeting your health care needs. Sincerely, Dr. Bassett Interpreting Radiologist [facility] (Normal over 40) documented in this encounterThe [facility] System03-17-2023 History of Present illness Narrative* Holli Sands RT(R) - 06/06/2022 9:50 AM EDT Radiology Service Progress Note PATIENT NAME: Inés Shanks DATE OF SERVICE: June 06, 2022 TIME: 9:35 AM PATIENT IDENTITY VERIFICATION COMPLETED USING TWO (2) IDENTIFIERS: Name and Date of confirmedby patient verbally. FALL SCREENING: Has the patient had 2 falls in the last year or 1 fall with injury or currently using an Ambulatory Assistive Device (Walker, Cane, Wheelchair, Crutches, etc.)? No PATIENT GENDER DATA: Female. status: : No status: NO. PATIENT RELEVANT IMPLANT DATA REVIEWED: Not Applicable RADIOLOGY DEPARTMENT: Mammography PERIPHERAL IV DATA: Not applicable SIGNED BY: RT Valeri(R) June 06, 2022 9:35 AM documented in this encounterThe [facility]03-10-2023 History of Present illness Narrative* Ros Ortiz, OD - 05/30/2022 3:08 PM EST 1. Type 2 diabetes mellitus without retinopathy (HCC) Risk of diabetic changes and vision loss can be minimized by tight control of blood sugar, blood pressure, and cholesterol levels. Educated patient to continue care with primary care doctor and/or web services architect to maintain optimum levels as they are important to avoid ocular complications. Encouraged patient to call the office immediately with any changes to vision or visual concerns. Advised to not wait until the next scheduled exam. 2. Dry eye syndrome of bilateral lacrimal glands Recommend refresh or Systane twice daily and gel nightly 3. Combined forms of age-related cataract of both eyes Mild- visual significance-monitor 4. Presbyopia Finalized spec rx Follow-up in 6 months for dry eye follow-up Ros Ortiz, OD May 30, 2022 3:08 PM documented in this encounterThe [facility] System03-10-2023 Instructions* Patient Instructions* Ros Ortiz, OD - 05/30/2022 3:08 PM EST Use Systane Complete or Refresh Relieva 2-3 times daily Use Systane, Refresh or Blink gel nightly before bed in both eyes documented in this encounterThe [facility] System03-10-2023 Miscellaneous Notes* Telephone Encounter - Flavia Leon Ma - 05/30/2022 1:25 PM EST Patient has been identified by name and date of : Yes Requested Prescriptions Pending Prescriptions Disp Refills metoprolol succinate ER (TOPROL XL) 25 mg 24 hr tablet 30 tablet 11 Sig: Take 1 tablet by mouth once daily. metFORMIN ER (GLUCOPHAGE XR) 500 mg 24 hr tablet 90 tablet 0 Sig: Take 3 tablets by mouth daily with breakfast. RX INSTRUCTIONS: Patient aware RX will be sent to pharmacy. No need to notify patient. Flavia Leon Ma documented in this encounterThe [facility]03-09-2023 History of Present illness Narrative* Aranza Yoon RT(R) - 05/29/2022 11:20 AM EST Radiology Service Progress Note PATIENT NAME: Inés Shanks DATE OF SERVICE: May 29, 2022 TIME: 11:21 AM PATIENT IDENTITY VERIFICATION COMPLETED USING TWO (2) IDENTIFIERS: Name and Date of confirmedby patient verbally. FALL SCREENING: Has the patient had 2 falls in the last year or 1 fall with injury or currently using an Ambulatory Assistive Device (Walker, Cane, Wheelchair, Crutches, etc.)? No PATIENT GENDER DATA: Female. status: : No status: NO. PATIENT RELEVANT IMPLANT DATA REVIEWED: Yes RADIOLOGY DEPARTMENT: General X-ray: Exam(s) Completed: Upper Extremity X- Ray(s): Fingers/Thumb, right PERIPHERAL IV DATA: Not applicable SIGNED BY: RT Дмитрий(R) May 29, 2022 11:21 AM documented in this encounterThe [facility]03-09-2023 History of Present illness Narrative* Santhosh Holden MD - 05/29/2022 9:39 AM EST Patient presents with: Physical Fall HPI: Patient presents today for office visit for routine visit. I have not seen her since 2020. Diabetes: States that glucose is up from before. This is due to eating at night she feels. Has a several recent deaths and feels like eating in dealing with this. Concerns of weight gain. Falling more frequently. Can't pinpoint reason for falling. Does admit to increased leg weakness and ankles seem to turn like not holding her weight. Using wheeled walker for walking because has fallen with cane. Will use wheelchair only for long distance. Increase in her headaches. Tremors are getting worse. Has not been back recently to neurology. Joint pain in her toes. Feels this even with the neuropathy in her feet. Also swelling in finger. HYPOTHYROID: Patient is compliant with medications: Yes Patient has changes in energy: No Patient has changes in hair or skin: No Patient has temperature intolerance: No Patient has weight changes: Yes Last TSH 6.050 10/11/21 KRZYSZTOF: uses CPAP regularly. Sleeps well: trouble staying asleep. Feels rested on awakening: No No daytime fatigue: Yes Snoring: No Seeing podiatry and psychiatry. Foot is healing well. No new skin moles or rashes. Component Latest Ref Rng & Units 05/21/2022 WBC 3.70 - 11.00 k/uL 7.46 RBC 3.90 - 5.20 m/uL 4.15 Hemoglobin 11.5 - 15.5 g/dL 12.1 Hematocrit 36.0 - 46.0 % 38.5 MCV 80.0 - 100.0 fL 92.8 MCH 26.0 - 34.0 pg 29.2 MCHC 30.5 - 36.0 g/dL 31.4 RDW-CV 11.5 - 15.0 % 14.0 Platelet Count 150 - 400 k/uL 206 MPV 9.0 - 12.7 fL 10.7 Neut% % 58.2 Abs Neut (ANC) 1.45 - 7.50 k/uL 4.34 Lymph% % 34.5 Abs Lymph 1.00 - 4.00 k/uL 2.57 [place]% % 5.1 Abs [place] <0.87 k/uL 0.38 Eosin% % 1.2 Abs Eosin <0.46 k/uL 0.09 Baso% % 0.5 Abs Baso <0.11 k/uL 0.04 Immature Gran % % 0.5 IMMATURE GRANS (ABS) <0.10 k/uL 0.04 NRBC /100 WBC 0.0 Absolute nRBC <0.01 k/uL <0.01 DTYPE Auto Protein, Total 6.3 - 8.0 g/dL 6.9 Albumin 3.9 - 4.9 g/dL 4.2 Calcium 8.5 - 10.2 mg/dL 9.7 Bilirubin, Total 0.2 - 1.3 mg/dL 0.4 Alkaline Phosphatase 34 - 123 U/L 62 AST 13 - 35 U/L 29 ALT 7 - 38 U/L 21 Glucose 74 - 99 mg/dL 137 (H) BUN 7 - 21 mg/dL 13 Creatinine 0.58 - 0.96 mg/dL 0.85 Sodium 136 - 144 mmol/L 142 Potassium 3.7 - 5.1 mmol/L 4.9 Chloride 97 - 105 mmol/L 104 CO2 22 - 30 mmol/L 25 Anion Gap 9 - 18 mmol/L 13 eGFR >=60 mL/min/1.73m 80 Hemoglobin A1C 4.3 - 5.6 % 6.5 (H) Estimated Average Glucose mg/dL 140 MEDICATIONS: Current Outpatient Medications Medication Sig pantoprazole DR (PROTONIX) 40 mg tablet Take 1 tablet by mouth twice daily. gabapentin (NEURONTIN) 600 mg tablet Take 1 tablet by mouth three times daily for 180 days. lisinopril (ZESTRIL, PRINIVIL) 5 mg tablet Take 1 tablet by mouth once daily. metFORMIN ER (GLUCOPHAGE XR) 500 mg 24 hr tablet Take 3 tablets by mouth daily with breakfast. rosuvastatin (CRESTOR) 5 mg tablet Take 1 tablet by mouth daily at bedtime. gabapentin (NEURONTIN) 300 mg capsule Take 1 capsule by mouth three times daily for 30 days. Blood-Glucose Meter (FREESTYLE LITE METER) monitoring kit Freestyle LITE Meter Kit -Test blood sugars one time daily. DX E11.40 blood sugar diagnostic (FREESTYLE LITE STRIPS) test strip Test blood sugar(s) once times daily. Dx:E11.40 Lancets lancets Test blood sugar(s) one time daily. Dx: Other DM Code E11.40 Insulin: No ondansetron (ZOFRAN) 4 mg tablet Take 1 tablet by mouth once daily as needed. Aluminum Hydrox-Magnesium Carb (GAVISCON EXTRA STRENGTH) 254-237.5 mg/5 mL susp Take 15 mL by mouthat bedtime as needed. ferrous sulfate 325 mg (65 mg iron) tablet Take 1 tablet by mouth twice daily with meals. cephALEXin (KEFLEX) 500 mg capsule Take 1 capsule by mouth three times daily. (Patient not taking: No sig reported) thyroid, pork, (ARMOUR THYROID) 60 mg Take 1 tablet by mouth twice daily. metoprolol succinate ER (TOPROL XL) 25 mg 24 hr tablet Take 1 tablet by mouth once daily. tiZANidine (ZANAFLEX) 4 mg tablet Take 1 tablet by mouth every 8 hours as needed. acetaminophen (TYLENOL EXTRA STRENGTH) 500 mg tablet Take 2 tablets by mouth every 8 hours as needed for Pain. nitroglycerin sublingual (NITROQUICK) 0.3 mg SL tablet Dissolve 0.3 mg under the tongue every 5 minutes as needed. [place] 12 mg tab Take 12 mg by mouth twice daily. COMPOUNDED PRESCRIPTION Initiate AutoPAP @ 10-20 cm of water with humidification mask (per patient preference) optional chin strap (if indicated) and lifetime supplies ([facility]) DX: KRZYSZTOF G47.33 multivit with minerals/lutein (MULTIVITAMIN 50 PLUS ORAL) Take 1 tablet by mouth once daily. (Patient not taking: No sig reported) COMPOUNDED PRESCRIPTION Diabetic shoes One pair CPAP CPAP with humidification. Mask (per patient preference) optional chin strap (if indicated) , filters, tubing, humidifier and lifetime supplies. lamoTRIgine (LAMICTAL) 200 mg tablet Take 1 tablet by mouth twice daily. clonazePAM (KLONOPIN) 1 mg tablet 1 mg three times daily. (Patient not taking: No sig reported) vortioxetine (TRINTELLIX) 20 mg tablet Take 1 tablet by mouth once daily. aspirin 81 mg chewable tablet Take 1 tablet by mouth once daily. (Patient not taking: Reported on 02/24/2022) CPAP Please provide supplies. Mask per preference, tubing, filters, humidity. Lifetime Supplies. Dx: G47.33 COMPOUNDED PRESCRIPTION Lightweight wheelchair DX: DDD, neuropathy Wheel Chair issac DX: debility COMPOUNDED PRESCRIPTION EX-LARGE BLOOD PRESSURE CUFF KIT DX I10 Blood Pressure Test Kit-Large (QUICK RESPONSE BP MONITOR) kit 1 Kit once daily. buPROPion HCl 200 mg 12 hr tablet Take 200 mg by mouth twice daily. No current facility-administered medications for this visit. ALLERGIES: ALLERGIES Allergen Reactions Cat Hair Standardiz* Itching Eyes get really red, if cat is too close, can't breathe Cats Itching Eyes get really red, if cat is too close, can't breathe Citric Acid Intolerance Mold Spores Other: See Comments Flu like symptoms PAST MEDICAL HISTORY Diagnosis Date Anxiety Powers's esophagus Bipolar 1 disorder (HCC) Dr. Orozco, psychiatry Chronic headaches Coronary-myocardial bridge DDD (degenerative disc disease) Depression 01/05/2015 Essential tremor TK tremor Fibromyalgia GERD (gastroesophageal reflux disease) HTN (hypertension) Hyperlipidemia Hypothyroid Liver fibrosis Mild CAD 08/22/2019 Neuropathy Non-melanoma skin cancer 03/08/2021 Obstructive sleep apnea PTSD (post-traumatic stress disorder) PVD (peripheral vascular disease) ([facility]) Sciatica Shoulder injury Type II or unspecified type diabetes mellitus without mention of complication, not stated as uncontrolled PAST SURGICAL HISTORY Procedure Laterality Date COLONOSCOPY FLX DX W/COLLJ SPEC WHEN PFRMD 01/10/2015 Colonoscopy DIAGNOSTIC ARTHROSCOPY SHOULDER +- SYNOVIAL BX Left 05/21/2018 Left shoulder arthroscopic subacromial decompression, open distal clavicle excision and manipulation under anesthesia EGD 2019 ENDOMETRIAL ABLATION WITH US GUIDANCE 2007 ESOPHAGOGASTRODUODENOSCOPY TRANSORAL DIAGNOSTIC 01/10/2015 EGD ESOPHAGOGASTRODUODENOSCOPY TRANSORAL DIAGNOSTIC 01/10/2016 EGD (MAC) GASTRIC BYPASS HX 03/2016 gastric sleeve HYSTERECTOMY, REVISE VAGINA; COLPECTOMY 05/16/2020 INJECTION back injections x3 PAST SURGICAL HISTORY OF 05/2020 Partial Hysterectomy w/ bladder sling TUBAL LIGATION HX 1988 FAMILY HISTORY Problem Relation Age of Onset Diabetes Mother Stroke Mother Cancer Mother melanoma Diabetes Paternal Grandmother Stroke Maternal Grandmother Alzheimer's Disease Maternal Grandmother Heart Father other (parkinson's) Father ADD/ADHD Son Bipolar disorder Son Bipolar disorder Daughter other (Other) Daughter behavioral disorder other (behavioral conduct disorder) Grandchild other (Other) Sister in infancy Mental illness Brother Alcohol/Drug Brother Social History Tobacco Use Smoking status: Former Packs/day: 1.50 Years: 11.00 Pack years: 16.50 Types: Cigarettes Quit date: 03/23/1989 Years since quittin.2 Smokeless tobacco: Never Vaping Use Vaping Use: Never used Substance Use Topics Alcohol use: No Drug use: No Reviewed current medications, allergies, past medical history, surgical history, family history andsocial history today. REVIEW OF SYSTEMS All other reviewed and negative other than HPI. HEALTH MAINTENANCE: Reviewed health maintenance issues today and recommended the following in detail. PNEUMOCOCCAL(1 - PCV) Never done BP CONTROLLED (<130/80) Never done SHINGRIX VACCINE(1 of 2) Never done COLORECTAL CANCER SCREENING due on 01/11/2020 DILATED RETINAL EXAM due on 10/23/2020 MAMMOGRAM due on 04/10/2021 INFLUENZA(1) due on 11/21/2021 COVID-19 VACCINE(5 - Booster for Pfizer series) due on 11/29/2021 VITALS: BP 132/72 Pulse 71 Wt 117.9 kg (260 lb) LMP 11/20/2014 (Approximate) SpO2 95% BMI 39.53 kg/m Last 4 Encounter Wt Readings: Date: Wt: 02/17/2022 118.4 kg (261 lb) 01/01/2022 120.2 kg (265 lb) 10/07/2021 121.9 kg (268 lb 12.8 oz) 08/05/2021 121.4 kg (267 lb 9.6 oz) PHYSICAL EXAMINATION: General appearance: Well appearing, alert, in no acute distress, well-hydrated, well nourished. Skin: Skin color, texture, turgor normal, no suspicious rashes or lesions Head: Normocephalic, no masses, lesions, tenderness or abnormalities Eyes: Anicteric sclera. Pupils are equally round and reactive to light. Extraocular movements are intact. Lungs: Lungs clear to auscultation. No wheezing, rhonchi, rales Heart: RRR without murmur, gallop, or rubs. No ectopy Abdomen: Normal abdominal exam, Abdomen soft, non-tender. Bowel sounds normal. No masses, organomegaly Extremities: No deformities, edema, skin discoloration, clubbing or cyanosis. Good capillary refill. Musculoskeletal: No joint swelling, deformity, or tenderness Persistent tremor. No focal neuro issues. ASSESSMENT/PLAN: 1. Primary hypertension - ICD9: 401.9, ICD10: I10 (primary diagnosis) - good control - Continue current medication(s) - Goal of BP <130/80 2. Encounter for immunization - ICD9: V03.89, ICD10: Z23 - [employer] COVID-19 BIVALENT BOOSTER VACCINE, AGE 12+ YR 3. Screening for diabetic retinopathy - ICD9: V80.2, ICD10: Z13.5 - CONSULT TO OPHTHALMOLOGY 4. Type 2 diabetes mellitus with diabetic neuropathy, without long-term current use of insulin (HCC) - ICD9: 250.60, 357.2, ICD10: E11.40 - follow labs. 5. Bipolar 1 disorder (HCC) - ICD9: 296.7, ICD10: F31.9 - stable. 6. Non-pressure chronic ulcer of other part of unspecified foot with unspecified severity (HCC) - ICD9: 707.15, ICD10: L97.509 Doing well. Seeing podiatry 7. Degenerative disease of nervous system, unspecified (HCC) - ICD9: 331.9, ICD10: G31.9 8. Neuropathy - ICD9: 355.9, ICD10: G62.9 - CONSULT TO PHYSICAL THERAPY 9. Coronary-myocardial bridge - ICD9: 746.85, ICD10: Q24.5 - CONSULT TO CARDIOLOGY 10. Mild CAD - ICD9: 414.00, ICD10: I25.10 - reminded to follow up. - CONSULT TO CARDIOLOGY 11. Other hyperlipidemia - ICD9: 272.4, ICD10: E78.49 - LIPID PANEL, NONFASTING 12. Essential tremor - ICD9: 333.1, ICD10: G25.0 - follow up - CONSULT TO NEUROLOGY 13. KRZYSZTOF (obstructive sleep apnea) - ICD9: 327.23, ICD10: G47.33 14. 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 - ICD9: 530.85, ICD10: K22.70 - CONSULT TO GENERAL SURGERY 15. Liver fibrosis - ICD9: 571.5, ICD10: K74.00 16. DDD (degenerative disc disease), lumbar - ICD9: 722.52, ICD10: M51.36 - as above. 17. Anxiety neurosis - ICD9: 300.00, ICD10: F41.1 - continue meds. 18. H/O gastric bypass - ICD9: V45.86, ICD10: Z98.84 - due for follow up - CONSULT TO GENERAL SURGERY - IRON + TIBC - VITAMIN B12 BLOOD - FOLATE SERUM - VITAMIN B1 (THIAMINE), WHOLE BLOOD 19. Ataxia - ICD9: 781.3, ICD10: R27.0 Due for follow up. Do physical therapy - CONSULT TO NEUROLOGY 20. Fall, subsequent encounter - ICD9: V58.89, E888.9, ICD10: W19.XXXD - CONSULT TO PHYSICAL THERAPY 21. Screening for colon cancer - ICD9: V76.51, ICD10: Z12.11 - CONSULT TO GENERAL SURGERY 22. Finger pain, right - ICD9: 729.5, ICD10: M79.644 - XR DIGIT GENERAL 3V FRONTAL/LAT/OBL RIGHT 23. Hypothyroidism, unspecified type - ICD9: 244.9, ICD10: E03.9 - TSH BLD 24. Screening breast examination - ICD9: V76.10, ICD10: Z12.39 - JESUS SCREENING 25. Need for vaccination - ICD9: V05.9, ICD10: Z23 - PNEUMOCOCCAL VACCINE (PREVNAR 20) - [employer] COVID-19 BIVALENT BOOSTER VACCINE, AGE 12+ YR Santhosh Holden documented in this encounterThe [facility]03-03-2023 Miscellaneous Notes* Telephone Encounter - Pina Springer LPN - 05/23/2022 12:54 PM EST Scheduled 05/29/22 documented in this encounterThe [facility] System02-16-2023 Miscellaneous Notes* Telephone Encounter - Trina Ramirez LPN - 05/08/2022 3:14 PM EST Attempted to reach pt by phone without success. Sent a [employer] message with information listed below. Trina Ramirez LPN * Telephone Encounter - Trina Ramirez LPN - 05/01/2022 10:42 AM EST Attempted to reach pt by phone without success. Pt does not have voice mail set up on her phone. Try later. Trina Ramirez LPN * Telephone Encounter - Trina Ramirez LPN - 04/30/2022 3:29 PM EST Pt is scheduled for a physical on 05/29/22. Tried to reach pt to remind her to get fasting lab work done prior to apt. Was unable to reach pt. Will try later. Trina Ramirez LPN * Telephone Encounter - Santhosh Holden MD - 04/28/2022 2:28 PM EST Due for labs and follow up * Telephone Encounter - Mayco Valladares LPN - 04/28/2022 1:40 PM EST Patient phones requesting refills as follows: Requested Prescriptions Pending Prescriptions Disp Refills metFORMIN ER (GLUCOPHAGE XR) 500 mg 24 hr tablet 90 tablet 5 Sig: Take 3 tablets by mouth daily with breakfast. ELVIN 10/07/21 NOV 05/29/22 Please review and advise. Mayco Valladares LPN documented in this encounterThe [facility] System02-14-2023 Miscellaneous Notes* Telephone Encounter - Jaradzhen Robledo APRN.CNP - 05/06/2022 11:15 AM EST The following approved medication requests have been transmitted electronically. Requested Prescriptions Pending Prescriptions Disp Refills lisinopril (ZESTRIL, PRINIVIL) 5 mg tablet 90 tablet 0 Sig: Take 1 tablet by mouth once daily. Jarad Robledo APRN.CNP * Telephone Encounter - Rahda Benavides Pss - 05/06/2022 10:44 AM EST Pharmacy verified in Epic Patient has been identified by name and date of : Yes Patient aware RX will be sent to pharmacy. No need to notify patient. Pharmacy phones for refill(s): Requested Prescriptions Pending Prescriptions Disp Refills lisinopril (ZESTRIL, PRINIVIL) 5 mg tablet 90 tablet 0 Sig: Take 1 tablet by mouth once daily. Date of last office visit : 10/07/2021 Date of next office visit : 05/29/2022 Last 2 Encounter Wt Readings: Date: Wt: 02/17/2022 118.4 kg (261 lb) 01/01/2022 120.2 kg (265 lb) Please advise. Radha Benavides Pss documented in this encounterThe [facility]23 Miscellaneous Notes* Telephone Encounter - Ivette Jerome RN - 04/28/2022 12:30 PM EST Patient has been identified by name and date of : Yes, Ivette Jerome RN Date 04/28/2022 Time 12:30 pm Pharmacy phones for refill(s): Requested Prescriptions Pending Prescriptions Disp Refills rosuvastatin (CRESTOR) 5 mg tablet 90 tablet 1 Sig: Take 1 tablet by mouth daily at bedtime. Date of last office visit with pcp: 10/07/2021 Future appt: 05/29/2022 Last 2 Encounter Wt Readings: Date: Wt: 02/17/2022 118.4 kg (261 lb) 01/01/2022 120.2 kg (265 lb) Previous labs/tests for medication: Cholesterol: HDL Cholesterol (mg/dL) Date Value 12/04/2020 42 HDL Cholesterol, Nonfasting (mg/dL) Date Value 10/11/2021 35 LDL Cholesterol (mg/dL) Date Value 12/04/2020 Unable to calculate due to increased Triglycerides. See LDL-Chol, Direct. LDL Cholesterol, Nonfasting (no units) Date Value 10/11/2021 Comment: Unable to calculate due to increased Triglycerides. A Direct LDL Cholesterol measurement will not be performed. If clinically indicated, a fasting Basic Lipid Panel (LIPB) may be ordered. ALT (U/L) Date Value 10/11/2021 15 08/31/2019 6 Non HDL Cholesterol, Nonfasting (mg/dL) Date Value 10/11/2021 235 Non HDL Cholesterol (mg/dL) Date Value 12/04/2020 221 Blood Pressure: BUN (mg/dL) Date Value 10/11/2021 9 05/30/2020 11 Sodium (mmol/L) Date Value 10/11/2021 143 05/30/2020 143 Last 1 Encounter BP Readings: Date: BP: 02/17/2022 164/82 Liver Function: ALT (U/L) Date Value 10/11/2021 15 08/31/2019 6 AST (U/L) Date Value 10/11/2021 19 08/31/2019 21 Please advise. Thank you. Ivette Jerome RN documented in this encounterThe [facility]01-04-2023 Miscellaneous Notes* Telephone Encounter - Mayco Valladares LPN - 03/26/2022 11:11 AM EST Patient phones requesting refills as follows: Requested Prescriptions Pending Prescriptions Disp Refills gabapentin (NEURONTIN) 300 mg capsule 90 capsule 2 Sig: Take 1 capsule by mouth three times daily for 30 days. ELVIN 10/07/21 NOV 04/16/22 Please review and advise. Mayco Valladares LPN documented in this encounterThe [facility]12-05-2022 History of Present illness Narrative* Dru Sahu - 02/24/2022 9:16 AM EST FOLLOW UP PODIATRIC OFFICE VISIT Chief Complaint: This 56 year old who presents for follow up:left 5th toe derotational arthroplasty Patient presents to clinic for follow-up left 5th toe derotational arthroplasty. Patient has mild pain but the pain is very mild. She reports to mild swelling in the left 5th toe but overall, she is doing very well. She continues to have pain in right 2nd toe which she broke many years ago. PAIN EVALUATION No data found in the last 1 encounters. Hemoglobin A1C Date Value Ref Range Status 10/11/2021 6.1 (H) 4.3 - 5.6 % Final Comment: [place] [employer] guidelines indicate that patients with HgbA1c in the range 5.7-6.4% are at increased risk for development of diabetes, and intervention by lifestyle modification may be beneficial. HgbA1c greater or equal to 6.5% is considered diagnostic of diabetes. PCP: Santhosh Holden MD PAST MEDICAL HISTORY Diagnosis Date Anxiety Powers's esophagus Bipolar 1 disorder (HCC) Dr. Orozco, psychiatry Chronic headaches Coronary-myocardial bridge DDD (degenerative disc disease) Depression 01/05/2015 Essential tremor TK tremor Fibromyalgia GERD (gastroesophageal reflux disease) HTN (hypertension) Hyperlipidemia Hypothyroid Liver fibrosis Mild CAD 08/22/2019 Neuropathy Non-melanoma skin cancer 03/08/2021 Obstructive sleep apnea PTSD (post-traumatic stress disorder) PVD (peripheral vascular disease) ([facility]) Sciatica Shoulder injury Type II or unspecified type diabetes mellitus without mention of complication, not stated as uncontrolled Current Outpatient Medications Medication Sig amoxicillin-clavulanic acid (AUGMENTIN) 875-125 mg per tablet Take 1 tablet by mouth twice daily for 7 days. Blood-Glucose Meter (FREESTYLE LITE METER) monitoring kit Freestyle LITE Meter Kit -Test blood sugars one time daily. DX E11.40 blood sugar diagnostic (FREESTYLE LITE STRIPS) test strip Test blood sugar(s) once times daily. Dx:E11.40 Lancets lancets Test blood sugar(s) one time daily. Dx: Other DM Code E11.40 Insulin: No ondansetron (ZOFRAN) 4 mg tablet Take 1 tablet by mouth once daily as needed. Aluminum Hydrox-Magnesium Carb (GAVISCON EXTRA STRENGTH) 254-237.5 mg/5 mL susp Take 15 mL by mouthat bedtime as needed. rosuvastatin (CRESTOR) 5 mg tablet Take 1 tablet by mouth daily at bedtime. lisinopril (ZESTRIL, PRINIVIL) 5 mg tablet Take 1 tablet by mouth once daily. ferrous sulfate 325 mg (65 mg iron) tablet Take 1 tablet by mouth twice daily with meals. thyroid, pork, (ARMOUR THYROID) 60 mg Take 1 tablet by mouth twice daily. pantoprazole DR (PROTONIX) 40 mg tablet Take 1 tablet by mouth twice daily. metFORMIN ER (GLUCOPHAGE XR) 500 mg 24 hr tablet Take 3 tablets by mouth daily with breakfast. tiZANidine (ZANAFLEX) 4 mg tablet Take 1 tablet by mouth every 8 hours as needed. acetaminophen (TYLENOL EXTRA STRENGTH) 500 mg tablet Take 2 tablets by mouth every 8 hours as needed for Pain. nitroglycerin sublingual (NITROQUICK) 0.3 mg SL tablet Dissolve 0.3 mg under the tongue every 5 minutes as needed. A[place]EDO 12 mg tab Take 12 mg by mouth twice daily. COMPOUNDED PRESCRIPTION Initiate AutoPAP @ 10-20 cm of water with humidification mask (per patient preference) optional chin strap (if indicated) and lifetime supplies ([facility]) DX: KRZYSZTOF G47.33 COMPOUNDED PRESCRIPTION Diabetic shoes One pair CPAP CPAP with humidification. Mask (per patient preference) optional chin strap (if indicated) , filters, tubing, humidifier and lifetime supplies. lamoTRIgine (LAMICTAL) 200 mg tablet Take 1 tablet by mouth twice daily. vortioxetine (TRINTELLIX) 20 mg tablet Take 1 tablet by mouth once daily. CPAP Please provide supplies. Mask per preference, tubing, filters, humidity. Lifetime Supplies. Dx: G47.33 COMPOUNDED PRESCRIPTION Lightweight wheelchair DX: DDD, neuropathy Wheel Chair issac DX: debility COMPOUNDED PRESCRIPTION EX-LARGE BLOOD PRESSURE CUFF KIT DX I10 Blood Pressure Test Kit-Large (QUICK RESPONSE BP MONITOR) kit 1 Kit once daily. buPROPion HCl 200 mg 12 hr tablet Take 200 mg by mouth twice daily. cephALEXin (KEFLEX) 500 mg capsule Take 1 capsule by mouth three times daily. (Patient not taking: No sig reported) gabapentin (NEURONTIN) 300 mg capsule Take 1 capsule by mouth three times daily for 30 days. (Patient not taking: No sig reported) metoprolol succinate ER (TOPROL XL) 25 mg 24 hr tablet Take 1 tablet by mouth once daily. gabapentin (NEURONTIN) 600 mg tablet Take 1 tablet by mouth three times daily for 180 days. (Patient not taking: No sig reported) multivit with minerals/lutein (MULTIVITAMIN 50 PLUS ORAL) Take 1 tablet by mouth once daily. (Patient not taking: No sig reported) clonazePAM (KLONOPIN) 1 mg tablet 1 mg three times daily. (Patient not taking: No sig reported) aspirin 81 mg chewable tablet Take 1 tablet by mouth once daily. (Patient not taking: Reported on 02/24/2022) No current facility-administered medications for this visit. ALLERGIES Allergen Reactions Cat Hair Standardiz* Itching Eyes get really red, if cat is too close, can't breathe Cats Itching Eyes get really red, if cat is too close, can't breathe Citric Acid Intolerance Mold Spores Other: See Comments Flu like symptoms PAST SURGICAL HISTORY Procedure Laterality Date COLONOSCOPY FLX DX W/COLLJ SPEC WHEN PFRMD 01/10/2015 Colonoscopy DIAGNOSTIC ARTHROSCOPY SHOULDER +- SYNOVIAL BX Left 05/21/2018 Left shoulder arthroscopic subacromial decompression, open distal clavicle excision and manipulation under anesthesia EGD 2018 ENDOMETRIAL ABLATION WITH US GUIDANCE 2007 ESOPHAGOGASTRODUODENOSCOPY TRANSORAL DIAGNOSTIC 01/10/2015 EGD ESOPHAGOGASTRODUODENOSCOPY TRANSORAL DIAGNOSTIC 01/10/2016 EGD (MAC) GASTRIC BYPASS HX 03/2016 gastric sleeve HYSTERECTOMY, REVISE VAGINA; COLPECTOMY 05/16/2020 INJECTION back injections x3 PAST SURGICAL HISTORY OF 05/2020 Partial Hysterectomy w/ bladder sling TUBAL LIGATION HX 1988 Physical Exam: OBJECTIVE: Constitutional: Pt is a well developed 56 year old female who is alert, oriented, cooperative and in no apparent distress. Eyes: Following during examination. No redness or drainage. Respiratory: RR normal and nonlabored. Even breathing. No evidence of distress. Psychology: Patient is engaged during conversation. Normal affect and mood. Does not appear depressed or anxious. NVSI unchanged from previous visit. Dermatological: Nails 1-5 b/l are normal. Webspaces clean and dry 1-4 b/l. Skin appears well hydrated and supple. good color, texture, turgor. No open lesions present. No callosities present. Musculoskeletal/Orthopaedic: Patient has pain to palpation of right 2nd toe. Rigid hammertoe of right 2nd toe pipj Rigid hammertoe present to right 5th toe Mild swelling is presnet to left 5th toe. Left 5th toe is rectus. Subtle hammertoe of right 3rd and right 4th toe ASSESSMENT: (M20.41) Hammertoe of right foot (primary encounter diagnosis) PLAN: Patietn is s/p derotational arthroplasty. She is doing very well. Her toe is now rectus and shows no evidence of callus. Pateint is very happy. Informed patient that swelling can last several months following surgery. Discussed hammertoe of right 2nd and right 5th toe. These are more rigid deformity. If she were to elect for procedure, would likely require pipj fusion of right 2nd toe and derotaional arthroplasty of right 5th toe. Will allow her to continue to progress to full activity for left foot. Will see her back in 1 month. Consider surgery on right foot thereafter. Of note, she does have subtle hammertoe of right 3rd and right 4th toe. These could be treated withtenotomy. * Sade Rodriguez RN - 02/24/2022 8:46 AM EST Patient presents with: Left Foot - Established Patient, Follow Up, Post Op Patient presents for follow up of hammer toe surgery. Patient denies any current pain. Some rednessand swelling noted to left 5th toe. documented in this encounterThe [facility]11-15-2022 Miscellaneous Notes* Telephone Encounter - Trina Ramirez LPN - 02/04/2022 4:13 PM EST Sent [employer] message asking pt to stop in and get fasting blood work done. Trina Ramirez LPN * Telephone Encounter - Sandra Walker LPN - 02/04/2022 3:45 PM EST Mailbox is full. Unable to leave message. Will need to try again. Sandra Walker LPN * Telephone Encounter - Santhosh Holden MD - 02/04/2022 3:33 PM EST See below * Telephone Encounter - Trina Ramirez LPN - 02/04/2022 1:51 PM EST Lab orders have . Please approve and advise pt they are due and pt will need to be fasting. Patient has been identified by name and date of : Yes Patient phones for refill(s): Requested Prescriptions Pending Prescriptions Disp Refills Blood-Glucose Meter (FREESTYLE LITE METER) monitoring kit 1 Each 0 Sig: Freestyle LITE Meter Kit -Test blood sugars one time daily. DX E11.40 blood sugar diagnostic (FREESTYLE LITE STRIPS) test strip 25 Strip 3 Sig: Test blood sugar(s) once times daily. Dx: E11.40 Lancets lancets 100 Each 11 Sig: Test blood sugar(s) one time daily. Dx: Other DM Code E11.40 Insulin: No ondansetron (ZOFRAN) 4 mg tablet 10 tablet 1 Sig: Take 1 tablet by mouth once daily as needed. Aluminum Hydrox-Magnesium Carb (GAVISCON EXTRA STRENGTH) 254-237.5 mg/5 mL susp 335 mL 3 Sig: Take 15 mL by mouth at bedtime as needed. Date of last office visit in primary care: 10/07/21 next apt 04/16/22 Last 2 Encounter Wt Readings: Date: Wt: 01/01/2022 120.2 kg (265 lb) 10/07/2021 121.9 kg (268 lb 12.8 oz) Previous labs/tests for medication: Diabetes: Hemoglobin A1C (%) Date Value 10/11/2021 6.1 12/04/2020 5.3 05/04/2020 5.5 Thank you. Trina Ramirez LPN documented in this encounterCleveland [id number] Miscellaneous Notes* Telephone Encounter - Suzanne Mathews - 01/31/2022 4:10 PM EST Patient sent My Chart message requesting the following refill. Requested Prescriptions Pending Prescriptions Disp Refills rosuvastatin (CRESTOR) 5 mg tablet 90 tablet 1 Sig: Take 1 tablet by mouth daily at bedtime. Patient last appointment: 10/07/2021 Patient Phone numbers: [phone] (home) Request is for script(s) to be escript to pharmacy. Suzanne Mathews documented in this encounterThe [facility]11-10-2022 Miscellaneous Notes* Telephone Encounter - Sade Vogt RN - 01/30/2022 11:20 AM EST Patient has been identified by name and date of : Yes Pharmacy phones for refill(s): Requested Prescriptions Pending Prescriptions Disp Refills lisinopril (ZESTRIL, PRINIVIL) 5 mg tablet 90 tablet 3 Sig: Take 1 tablet by mouth once daily. Date of last office visit in primary care: 10/07/21 Future visit: 04/16/22 Last 2 Encounter Wt Readings: Date: Wt: 01/01/2022 120.2 kg (265 lb) 10/07/2021 121.9 kg (268 lb 12.8 oz) Previous labs/tests for medication: Blood Pressure: BUN (mg/dL) Date Value 10/11/2021 9 05/30/2020 11 Sodium (mmol/L) Date Value 10/11/2021 143 05/30/2020 143 Last 1 Encounter BP Readings: Date: BP: 01/06/2022 146/71 Please advise. Thank you. Sade Vogt RN documented in this encounterThe [facility] System11-04-2022 History of Present illness Narrative* Dru Sahu - 01/24/2022 11:02 AM EDT This 56 year old presents post op left 5th toe derotational arthroplasty. Pain level: improving Vomiting, fever, chills, shortness of breath: no Pain Control: n/a Weightbearing status: full weightbearing Patient reports that she has been active lately. Overall she is doing well. She does complain of pain to lesser toes of right foot. 6.1 (10/11/2021) PAST MEDICAL HISTORY Diagnosis Date Anxiety Powers's esophagus Bipolar 1 disorder (HCC) Dr. Orozco, psychiatry Chronic headaches Coronary-myocardial bridge DDD (degenerative disc disease) Depression 01/05/2015 Essential tremor TK tremor Fibromyalgia GERD (gastroesophageal reflux disease) HTN (hypertension) Hyperlipidemia Hypothyroid Liver fibrosis Mild CAD 08/22/2019 Neuropathy Non-melanoma skin cancer 03/08/2021 Obstructive sleep apnea PTSD (post-traumatic stress disorder) PVD (peripheral vascular disease) (HCC) Sciatica Shoulder injury Type II or unspecified type diabetes mellitus without mention of complication, not stated as uncontrolled Current Outpatient Medications Medication Sig ferrous sulfate 325 mg (65 mg iron) tablet Take 1 tablet by mouth twice daily with meals. thyroid, pork, (ARMOUR THYROID) 60 mg Take 1 tablet by mouth twice daily. pantoprazole DR (PROTONIX) 40 mg tablet Take 1 tablet by mouth twice daily. lisinopril (ZESTRIL, PRINIVIL) 5 mg tablet Take 1 tablet by mouth once daily. metFORMIN ER (GLUCOPHAGE XR) 500 mg 24 hr tablet Take 3 tablets by mouth daily with breakfast. rosuvastatin (CRESTOR) 5 mg tablet Take 1 tablet by mouth daily at bedtime. tiZANidine (ZANAFLEX) 4 mg tablet Take 1 tablet by mouth every 8 hours as needed. ondansetron (ZOFRAN) 4 mg tablet Take 1 tablet by mouth once daily as needed. Aluminum Hydrox-Magnesium Carb (GAVISCON EXTRA STRENGTH) 254-237.5 mg/5 mL susp Take 15 mL by mouthat bedtime as needed. acetaminophen (TYLENOL EXTRA STRENGTH) 500 mg tablet Take 2 tablets by mouth every 8 hours as needed for Pain. nitroglycerin sublingual (NITROQUICK) 0.3 mg SL tablet Dissolve 0.3 mg under the tongue every 5 minutes as needed. [place] 12 mg tab Take 12 mg by mouth twice daily. Blood-Glucose Meter (FREESTYLE LITE METER) monitoring kit Freestyle LITE Meter Kit -Test blood sugars one time daily. DX E11.40 blood sugar diagnostic (FREESTYLE LITE STRIPS) test strip Test blood sugar(s) once times daily. Dx:E11.40 Lancets lancets Test blood sugar(s) one time daily. Dx: Other DM Code E11.40 Insulin: No COMPOUNDED PRESCRIPTION Initiate AutoPAP @ 10-20 cm of water with humidification mask (per patient preference) optional chin strap (if indicated) and lifetime supplies ([facility]) DX: KRZYSZTOF G47.33 COMPOUNDED PRESCRIPTION Diabetic shoes One pair CPAP CPAP with humidification. Mask (per patient preference) optional chin strap (if indicated) , filters, tubing, humidifier and lifetime supplies. lamoTRIgine (LAMICTAL) 200 mg tablet Take 1 tablet by mouth twice daily. vortioxetine (TRINTELLIX) 20 mg tablet Take 1 tablet by mouth once daily. CPAP Please provide supplies. Mask per preference, tubing, filters, humidity. Lifetime Supplies. Dx: G47.33 COMPOUNDED PRESCRIPTION Lightweight wheelchair DX: DDD, neuropathy Wheel Chair issac DX: debility COMPOUNDED PRESCRIPTION EX-LARGE BLOOD PRESSURE CUFF KIT DX I10 Blood Pressure Test Kit-Large (QUICK RESPONSE BP MONITOR) kit 1 Kit once daily. buPROPion HCl 200 mg 12 hr tablet Take 200 mg by mouth twice daily. cephALEXin (KEFLEX) 500 mg capsule Take 1 capsule by mouth three times daily. (Patient not taking: Reported on 01/24/2022) gabapentin (NEURONTIN) 300 mg capsule Take 1 capsule by mouth three times daily for 30 days. (Patient not taking: No sig reported) metoprolol succinate ER (TOPROL XL) 25 mg 24 hr tablet Take 1 tablet by mouth once daily. gabapentin (NEURONTIN) 600 mg tablet Take 1 tablet by mouth three times daily for 180 days. (Patient not taking: No sig reported) multivit with minerals/lutein (MULTIVITAMIN 50 PLUS ORAL) Take 1 tablet by mouth once daily. (Patient not taking: No sig reported) clonazePAM (KLONOPIN) 1 mg tablet 1 mg three times daily. (Patient not taking: No sig reported) aspirin 81 mg chewable tablet Take 1 tablet by mouth once daily. (Patient not taking: No sig reported) No current facility-administered medications for this visit. ALLERGIES Allergen Reactions Cat Hair Standardiz* Itching Eyes get really red, if cat is too close, can't breathe Cats Itching Eyes get really red, if cat is too close, can't breathe Citric Acid Intolerance Mold Spores Other: See Comments Flu like symptoms Objective: Incision site is healed. No redness noted. Mild swelling is present. No drainage. No lymphadenopathy. No lymphangitis. No surrounding cellulitis. Patient has no pain to palpation of b/l calf. Negative Yoon's test. Hammertoes are present to right 2nd, 3rd, 4th and 5th toe Left 5th toe is rectus in alignment. Prior ulceration is now healed without infection Assessment: (Z98.890) Post-operative state (primary encounter diagnosis) (M20.41) Hammertoe of right foot Plan: Patient suture was removed. Incision is healed. Ulceration has healed without infection. Mild swelling present but likely due to increased activity. Patient has progressed nicely and can now return to sneakers. Discussed hammertoe of right 2nd, 3rd, 4th and 5th toe. Discussed surgical options in the future. Would likely require pipj fusion of right 2,3,4 and derorational arthroplasty of right 5th Can consider surgery in future. Dru Sahu DPM * Yesika Botello RN - 01/24/2022 10:54 AM EDT AMB ROOMING INTAKE FLOWSHEET DATA Risk Screening Do you have concerns about personal safety or safety in the home?: No Pain Pain Level: 2 Pain Location: Toe Description: Sore Duration Amount of Time: 18 Duration Units: Days Frequency: Intermittent Intervention/Comfort measure: Reposition, Relaxation Patient presents with: Left 5th Toe - Post Op, Hammer Toe Patient is 18 days s/p L 5th toe derotational arthroplasty. Notes some redness to toe but states she thinks her applied post op dressing too tight. She continues post op shoe, FELICIA and walker. documented in this encounterThe [facility] System10-28-2022 Instructions* Patient Instructions* Dru Sahu - 01/17/2022 1:17 PM EDT Continue to keep the toe bandaged Keep it clean and dry Ok to remove bandage in 3 days. Apply guaze, adaptic and felicia Call if any issues arise Continue with post-op shoe Plan for suture removal next week documented in this encounterThe [facility] System10-28-2022 History of Present illness Narrative* Dru Jeffriesjennifer - 01/17/2022 1:12 PM EDT This 56 year old presents post op left 5th derotational arthroplasty Pain level: 3/10 Vomiting, fever, chills, shortness of breath: no Pain Control: percocet once daily Weightbearing status: weightbearing in post-op shoe 6.1 (10/11/2021) PAST MEDICAL HISTORY Diagnosis Date Anxiety Powers's esophagus Bipolar 1 disorder (HCC) Dr. Orozco, psychiatry Chronic headaches Coronary-myocardial bridge DDD (degenerative disc disease) Depression 01/05/2015 Essential tremor TK tremor Fibromyalgia GERD (gastroesophageal reflux disease) HTN (hypertension) Hyperlipidemia Hypothyroid Liver fibrosis Mild CAD 08/22/2019 Neuropathy Non-melanoma skin cancer 03/08/2021 Obstructive sleep apnea PTSD (post-traumatic stress disorder) PVD (peripheral vascular disease) (HCC) Sciatica Shoulder injury Type II or unspecified type diabetes mellitus without mention of complication, not stated as uncontrolled Current Outpatient Medications Medication Sig ferrous sulfate 325 mg (65 mg iron) tablet Take 1 tablet by mouth twice daily with meals. cephALEXin (KEFLEX) 500 mg capsule Take 1 capsule by mouth three times daily. thyroid, pork, (ARMOUR THYROID) 60 mg Take 1 tablet by mouth twice daily. pantoprazole DR (PROTONIX) 40 mg tablet Take 1 tablet by mouth twice daily. lisinopril (ZESTRIL, PRINIVIL) 5 mg tablet Take 1 tablet by mouth once daily. metFORMIN ER (GLUCOPHAGE XR) 500 mg 24 hr tablet Take 3 tablets by mouth daily with breakfast. rosuvastatin (CRESTOR) 5 mg tablet Take 1 tablet by mouth daily at bedtime. tiZANidine (ZANAFLEX) 4 mg tablet Take 1 tablet by mouth every 8 hours as needed. ondansetron (ZOFRAN) 4 mg tablet Take 1 tablet by mouth once daily as needed. Aluminum Hydrox-Magnesium Carb (GAVISCON EXTRA STRENGTH) 254-237.5 mg/5 mL susp Take 15 mL by mouthat bedtime as needed. acetaminophen (TYLENOL EXTRA STRENGTH) 500 mg tablet Take 2 tablets by mouth every 8 hours as needed for Pain. AUSTEDO 12 mg tab Take 12 mg by mouth twice daily. Blood-Glucose Meter (FREESTYLE LITE METER) monitoring kit Freestyle LITE Meter Kit -Test blood sugars one time daily. DX E11.40 blood sugar diagnostic (FREESTYLE LITE STRIPS) test strip Test blood sugar(s) once times daily. Dx:E11.40 Lancets lancets Test blood sugar(s) one time daily. Dx: Other DM Code E11.40 Insulin: No COMPOUNDED PRESCRIPTION Initiate AutoPAP @ 10-20 cm of water with humidification mask (per patient preference) optional chin strap (if indicated) and lifetime supplies ([facility]) DX: KRZYSZTOF G47.33 COMPOUNDED PRESCRIPTION Diabetic shoes One pair CPAP CPAP with humidification. Mask (per patient preference) optional chin strap (if indicated) , filters, tubing, humidifier and lifetime supplies. lamoTRIgine (LAMICTAL) 200 mg tablet Take 1 tablet by mouth twice daily. vortioxetine (TRINTELLIX) 20 mg tablet Take 1 tablet by mouth once daily. CPAP Please provide supplies. Mask per preference, tubing, filters, humidity. Lifetime Supplies. Dx: G47.33 COMPOUNDED PRESCRIPTION Lightweight wheelchair DX: DDD, neuropathy Wheel Chair issac DX: debility COMPOUNDED PRESCRIPTION EX-LARGE BLOOD PRESSURE CUFF KIT DX I10 Blood Pressure Test Kit-Large (QUICK RESPONSE BP MONITOR) kit 1 Kit once daily. buPROPion HCl 200 mg 12 hr tablet Take 200 mg by mouth twice daily. gabapentin (NEURONTIN) 300 mg capsule Take 1 capsule by mouth three times daily for 30 days. (Patient not taking: Reported on 01/17/2022) metoprolol succinate ER (TOPROL XL) 25 mg 24 hr tablet Take 1 tablet by mouth once daily. gabapentin (NEURONTIN) 600 mg tablet Take 1 tablet by mouth three times daily for 180 days. (Patient not taking: No sig reported) nitroglycerin sublingual (NITROQUICK) 0.3 mg SL tablet Dissolve 0.3 mg under the tongue every 5 minutes as needed. (Patient not taking: No sig reported) multivit with minerals/lutein (MULTIVITAMIN 50 PLUS ORAL) Take 1 tablet by mouth once daily. (Patient not taking: No sig reported) clonazePAM (KLONOPIN) 1 mg tablet 1 mg three times daily. (Patient not taking: No sig reported) aspirin 81 mg chewable tablet Take 1 tablet by mouth once daily. (Patient not taking: No sig reported) No current facility-administered medications for this visit. ALLERGIES Allergen Reactions Cat Hair Standardiz* Itching Eyes get really red, if cat is too close, can't breathe Cats Itching Eyes get really red, if cat is too close, can't breathe Citric Acid Intolerance Mold Spores Other: See Comments Flu like symptoms Objective: Incision site is well coapted with no evidence of dehiscence. No erythema and edema surrounding surgical site. No drainage. No lymphadenopathy. No lymphangitis. No surrounding cellulitis. No ulceration of left 5th toe Patient has no pain to palpation of left calf. Negative Yoon's test. Assessment: (Z98.890) Post-operative state (primary encounter diagnosis) (M20.42) Hammertoe of left foot Plan: Bandage removed and new dressing applied. Sutures: will plan for suture removal next week. Being that she is diabetic, I would prefer to waitfor a total of 2.5-3 weeks prior to suture removal Weightbearing status: weightbearing in post-op shoe RTC 1 week Dru Sahu DPM * Hollie Diana LPN - 01/17/2022 1:02 PM EDT AMB ROOMING INTAKE FLOWSHEET DATA Pain Pain Level: 3 Pain Location: Toe Description: Sore Duration Amount of Time: 3 Duration Units: Days Frequency: Continuous Intervention/Comfort measure: Reposition, Relaxation, Medication Patient presents with: Left Foot - Established Patient, Post Op, Pain Hollie Diana LPN documented in this encounterThe [facility]10-[facility] History of Present illness Narrative* Hollie Diana LPN - 01/10/2022 1:56 PM EDT Patient was place in new dressing. Iodine and adaptic was placed to incision site. A 4 x4 sponge was placed around the 5th pulling toe towards center of foot. Secured with cling wrap and felicia bandage.Written instruction as well as virtual instructions were given on wound care. Patient was instructed to change dressing every 2 days. Patient verbalized understand was provided with wound care supplies. Hollie Diana LPN * Hollie Diana LPN - 01/10/2022 1:[address] Sahu, Inés was provided with post op shoe, size m, and instructed/educated in its application, wear, and care. All questions were answered, and patient was able to demonstrate competencewith the necessary skills to utilize the above equipment. Hollie Diana LPN * Dru Sahu - 01/10/2022 1:13 PM EDT DOS: 01/08/22/ POD: 4 POV: 1 Surgical side: left This 56 year old presents post op derotational arthroplasty of left 5th toe Pain level: 4/10 Vomiting, fever, chills, shortness of breath: no Pain Control: percocet Weightbearing status: full weightbearing. Patient reports to being more active taking care of her granddaughter 6.1 (10/11/2021) PAST MEDICAL HISTORY Diagnosis Date Anxiety Powers's esophagus Bipolar 1 disorder (HCC) Dr. Orozco, psychiatry Chronic headaches Coronary-myocardial bridge DDD (degenerative disc disease) Depression 01/05/2015 Essential tremor TK tremor Fibromyalgia GERD (gastroesophageal reflux disease) HTN (hypertension) Hyperlipidemia Hypothyroid Liver fibrosis Mild CAD 08/22/2019 Neuropathy Non-melanoma skin cancer 03/08/2021 Obstructive sleep apnea PTSD (post-traumatic stress disorder) PVD (peripheral vascular disease) ([facility]) Sciatica Shoulder injury Type II or unspecified type diabetes mellitus without mention of complication, not stated as uncontrolled Current Outpatient Medications Medication Sig oxyCODONE-acetaminophen (PERCOCET) 5-325 mg tablet Take 1 tablet by mouth every 6 hours as needed for pain for up to 7 days. cephALEXin (KEFLEX) 500 mg capsule Take 1 capsule by mouth three times daily. oxyCODONE-acetaminophen (PERCOCET) 5-325 mg tablet Take 1 tablet by mouth every 6 hours as needed for pain for up to 7 days. thyroid, pork, (ARMOUR THYROID) 60 mg Take 1 tablet by mouth twice daily. pantoprazole DR (PROTONIX) 40 mg tablet Take 1 tablet by mouth twice daily. lisinopril (ZESTRIL, PRINIVIL) 5 mg tablet Take 1 tablet by mouth once daily. metFORMIN ER (GLUCOPHAGE XR) 500 mg 24 hr tablet Take 3 tablets by mouth daily with breakfast. rosuvastatin (CRESTOR) 5 mg tablet Take 1 tablet by mouth daily at bedtime. tiZANidine (ZANAFLEX) 4 mg tablet Take 1 tablet by mouth every 8 hours as needed. ondansetron (ZOFRAN) 4 mg tablet Take 1 tablet by mouth once daily as needed. Aluminum Hydrox-Magnesium Carb (GAVISCON EXTRA STRENGTH) 254-237.5 mg/5 mL susp Take 15 mL by mouthat bedtime as needed. acetaminophen (TYLENOL EXTRA STRENGTH) 500 mg tablet Take 2 tablets by mouth every 8 hours as needed for Pain. AUSTEDO 12 mg tab Take 12 mg by mouth twice daily. Blood-Glucose Meter (FREESTYLE LITE METER) monitoring kit Freestyle LITE Meter Kit -Test blood sugars one time daily. DX E11.40 blood sugar diagnostic (FREESTYLE LITE STRIPS) test strip Test blood sugar(s) once times daily. Dx:E11.40 Lancets lancets Test blood sugar(s) one time daily. Dx: Other DM Code E11.40 Insulin: No COMPOUNDED PRESCRIPTION Initiate AutoPAP @ 10-20 cm of water with humidification mask (per patient preference) optional chin strap (if indicated) and lifetime supplies ([facility]) DX: KRZYSZTOF G47.33 COMPOUNDED PRESCRIPTION Diabetic shoes One pair CPAP CPAP with humidification. Mask (per patient preference) optional chin strap (if indicated) , filters, tubing, humidifier and lifetime supplies. lamoTRIgine (LAMICTAL) 200 mg tablet Take 1 tablet by mouth twice daily. vortioxetine (TRINTELLIX) 20 mg tablet Take 1 tablet by mouth once daily. COMPOUNDED PRESCRIPTION Lightweight wheelchair DX: DDD, neuropathy Wheel Chair issac DX: debility COMPOUNDED PRESCRIPTION EX-LARGE BLOOD PRESSURE CUFF KIT DX I10 Blood Pressure Test Kit-Large (QUICK RESPONSE BP MONITOR) kit 1 Kit once daily. buPROPion HCl 200 mg 12 hr tablet Take 200 mg by mouth twice daily. gabapentin (NEURONTIN) 300 mg capsule Take 1 capsule by mouth three times daily for 30 days. metoprolol succinate ER (TOPROL XL) 25 mg 24 hr tablet Take 1 tablet by mouth once daily. gabapentin (NEURONTIN) 600 mg tablet Take 1 tablet by mouth three times daily for 180 days. (Patient not taking: Reported on 01/10/2022) nitroglycerin sublingual (NITROQUICK) 0.3 mg SL tablet Dissolve 0.3 mg under the tongue every 5 minutes as needed. (Patient not taking: Reported on 01/10/2022) multivit with minerals/lutein (MULTIVITAMIN 50 PLUS ORAL) Take 1 tablet by mouth once daily. (Patient not taking: Reported on 01/10/2022) clonazePAM (KLONOPIN) 1 mg tablet 1 mg three times daily. (Patient not taking: Reported on 01/10/2022) aspirin 81 mg chewable tablet Take 1 tablet by mouth once daily. (Patient not taking: Reported on 01/10/2022) CPAP Please provide supplies. Mask per preference, tubing, filters, humidity. Lifetime Supplies. Dx: G47.33 No current facility-administered medications for this visit. ALLERGIES Allergen Reactions Cat Hair Standardiz* Itching Eyes get really red, if cat is too close, can't breathe Cats Itching Eyes get really red, if cat is too close, can't breathe Citric Acid Intolerance Mold Spores Other: See Comments Flu like symptoms Objective: Incision site is well coapted with no evidence of dehiscence. Mild erythema and edema surrounding surgical site. No drainage. No lymphadenopathy. No lymphangitis. No surrounding cellulitis. Patient has no pain to palpation of left calf. Negative Yoon's test. Assessment: (Z98.040) Post-operative state (primary encounter diagnosis) Plan: Bandage removed and new dressing applied. I will have her change dressing every 2 - 3 days Sutures: will plan for suture removal at 2-3 weeks Weightbearing status: weightbearing as tolerated in surgical shoe but I want her to limit activity Reviewed pathology. No signs of infection. Culture thus far no evidence of infection. Continue withantibiotic RTC 1 week Dru Sahu DPM * Hollie Diana LPN - 01/10/2022 12:41 PM EDT AMB ROOMING INTAKE FLOWSHEET DATA Pain Pain Level: 4 Pain Location: Foot-Left Description: Raw, Sore, Aching Duration Amount of Time: 4 Duration Units: Days Intervention/Comfort measure: Reposition, Relaxation, Medication Patient presents with: Left Foot - Established Patient, Follow Up, Pain, Post Op 4 days s/p derotational arthroplasty, Left 5 th toe. Hollie Diana LPN documented in this encounterThe [facility]10-17-2022 Miscellaneous Notes* Telephone Encounter - Dru Sahu - 01/06/2022 7:50 PM EDT I attempted to contact patient to see how she was doing s/p derotational arthroplasty. No answer. Itried leaving message but her voice mail is not yet set up Dru Sahu DPM documented in this encounterThe [facility]10-12-[facility]22 History of Present illness Narrative* Dru Sahu - 01/01/2022 9:48 AM EDT Images from the original note were not included. FOLLOW UP PODIATRIC OFFICE VISIT Chief Complaint: This 56 year old who presents for follow up:left 5th toe hammertoe Patient presents to clinic for follow-up left 5th toe hammertoe Patient continues to have pain to left 5th toe. She continues to have a very small opening along the medial aspect of left 5th toe that drains a small crust She is here to discuss options. PAIN EVALUATION 01/01/2022 0915 Pain Level: 5 Pain Location: Toe left 5th toe Description: Radiating;Sore Duration Amount of Time: 2 Duration Units: Weeks Frequency: Continuous Intervention/Comfort measure: Medication Hemoglobin A1C Date Value Ref Range Status 10/11/2021 6.1 (H) 4.3 - 5.6 % Final Comment: [place] [employer] guidelines indicate that patients with HgbA1c in the range 5.7-6.4% are at increased risk for development of diabetes, and intervention by lifestyle modification may be beneficial. HgbA1c greater or equal to 6.5% is considered diagnostic of diabetes. PCP: Santhosh Holden MD PAST MEDICAL HISTORY Diagnosis Date Anxiety Powers's esophagus Bipolar 1 disorder (HCC) Dr. Orozco, psychiatry Chronic headaches Coronary-myocardial bridge DDD (degenerative disc disease) Depression 01/05/2015 Essential tremor TK tremor Fibromyalgia GERD (gastroesophageal reflux disease) HTN (hypertension) Hyperlipidemia Hypothyroid Liver fibrosis Mild CAD 08/22/2019 Neuropathy Non-melanoma skin cancer 03/08/2021 Obstructive sleep apnea PTSD (post-traumatic stress disorder) PVD (peripheral vascular disease) (HCC) Sciatica Shoulder injury Type II or unspecified type diabetes mellitus without mention of complication, not stated as uncontrolled Current Outpatient Medications Medication Sig gabapentin (NEURONTIN) 300 mg capsule Take 1 capsule by mouth three times daily for 30 days. metoprolol succinate ER (TOPROL XL) 25 mg 24 hr tablet Take 1 tablet by mouth once daily. gabapentin (NEURONTIN) 600 mg tablet Take 1 tablet by mouth three times daily for [address] (PROTONIX) 40 mg tablet Take 1 tablet by mouth twice daily. lisinopril (ZESTRIL, PRINIVIL) 5 mg tablet Take 1 tablet by mouth once daily. metFORMIN ER (GLUCOPHAGE XR) 500 mg 24 hr tablet Take 3 tablets by mouth daily with breakfast. rosuvastatin (CRESTOR) 5 mg tablet Take 1 tablet by mouth daily at bedtime. tiZANidine (ZANAFLEX) 4 mg tablet Take 1 tablet by mouth every 8 hours as needed. ondansetron (ZOFRAN) 4 mg tablet Take 1 tablet by mouth once daily as needed. Aluminum Hydrox-Magnesium Carb (GAVISCON EXTRA STRENGTH) 254-237.5 mg/5 mL susp Take 15 mL by mouthat bedtime as needed. nitroglycerin sublingual (NITROQUICK) 0.3 mg SL tablet Dissolve 0.3 mg under the tongue every 5 minutes as needed. AUSTEDO 12 mg tab Take 12 mg by mouth twice daily. multivit with minerals/lutein (MULTIVITAMIN 50 PLUS ORAL) Take 1 tablet by mouth once daily. lamoTRIgine (LAMICTAL) 200 mg tablet Take 1 tablet by mouth twice daily. clonazePAM (KLONOPIN) 1 mg tablet 1 mg three times daily. vortioxetine (TRINTELLIX) 20 mg tablet Take 1 tablet by mouth once daily. buPROPion HCl 200 mg 12 hr tablet Take 200 mg by mouth twice daily. thyroid, pork, (ARMOUR THYROID) 60 mg Take 1 tablet by mouth twice daily. (Patient not taking: Reported on 12/18/2021) acetaminophen (TYLENOL EXTRA STRENGTH) 500 mg tablet Take 2 tablets by mouth every 8 hours as needed for Pain. (Patient not taking: No sig reported) Blood-Glucose Meter (FREESTYLE LITE METER) monitoring kit Freestyle LITE Meter Kit -Test blood sugars one time daily. DX E11.40 blood sugar diagnostic (FREESTYLE LITE STRIPS) test strip Test blood sugar(s) once times daily. Dx:E11.40 Lancets lancets Test blood sugar(s) one time daily. Dx: Other DM Code E11.40 Insulin: No COMPOUNDED PRESCRIPTION Initiate AutoPAP @ 10-20 cm of water with humidification mask (per patient preference) optional chin strap (if indicated) and lifetime supplies ([facility]) DX: KRZYSZTOF G47.33 cyanocobalamin, vitamin B-12, (VITAMIN B-12 ORAL) Take 2 tablets by mouth once daily. (Patient not taking: No sig reported) COMPOUNDED PRESCRIPTION Diabetic shoes One pair CPAP CPAP with humidification. Mask (per patient preference) optional chin strap (if indicated) , filters, tubing, humidifier and lifetime supplies. aspirin 81 mg chewable tablet Take 1 tablet by mouth once daily. CPAP Please provide supplies. Mask per preference, tubing, filters, humidity. Lifetime Supplies. Dx: G47.33 COMPOUNDED PRESCRIPTION Lightweight wheelchair DX: DDD, neuropathy Wheel Chair issac DX: debility COMPOUNDED PRESCRIPTION EX-LARGE BLOOD PRESSURE CUFF KIT DX I10 Blood Pressure Test Kit-Large (QUICK RESPONSE BP MONITOR) kit 1 Kit once daily. No current facility-administered medications for this visit. ALLERGIES Allergen Reactions Cat Hair Standardiz* Itching Eyes get really red, if cat is too close, can't breathe Cats Itching Eyes get really red, if cat is too close, can't breathe Citric Acid Intolerance Mold Spores Other: See Comments Flu like symptoms PAST SURGICAL HISTORY Procedure Laterality Date COLONOSCOPY FLX DX W/COLLJ SPEC WHEN PFRMD 01/10/2015 Colonoscopy DIAGNOSTIC ARTHROSCOPY SHOULDER +- SYNOVIAL BX Left 05/21/2018 Left shoulder arthroscopic subacromial decompression, open distal clavicle excision and manipulation under anesthesia EGD 2019 ENDOMETRIAL ABLATION WITH US GUIDANCE 2007 ESOPHAGOGASTRODUODENOSCOPY TRANSORAL DIAGNOSTIC 01/10/2015 EGD ESOPHAGOGASTRODUODENOSCOPY TRANSORAL DIAGNOSTIC 01/10/2016 EGD (MAC) GASTRIC BYPASS HX 03/2016 gastric sleeve HYSTERECTOMY, REVISE VAGINA; COLPECTOMY 05/16/2020 INJECTION back injections x3 PAST SURGICAL HISTORY OF 05/2020 Partial Hysterectomy w/ bladder sling TUBAL LIGATION HX 1988 Physical Exam: OBJECTIVE: Constitutional: Pt is a well developed 56 year old female who is alert, oriented, cooperative and in no apparent distress. Eyes: Following during examination. No redness or drainage. Respiratory: RR normal and nonlabored. Even breathing. No evidence of distress. Psychology: Patient is engaged during conversation. Normal affect and mood. Does not appear depressed or anxious. Vascular: DP and PT pulses are palpable to left foot. CFT is less than 5 seconds. Skin temperature is warm to warm. Dermatological: There is superficial wound of medial aspect of left 5th toe that does not drain and does not show any signs of infection Musculoskeletal/Orthopaedic: Patient has pain to palpation of left 5th toe Adductovarus deformity of left 5th toe Xrays reviewed. No evidence of bone infection. ASSESSMENT: (E11.49) Other diabetic neurological complication associated with type 2 diabetes mellitus (HCC) (primary encounter diagnosis) (M20.42) Hammertoe of left foot (L97.521) Ulcer of toe of left foot, limited to breakdown of skin (HCC) PLAN: Discussed superficial wound of left 5th toe. There is no current signs of infection. I informed patient the longer this wound were to become present or if the wound becomes larger, she could be at risk of bone ifnection. No signs of bone infection currently I discussed treatment options for this patient. Conservative options include padding. I discussed surgical options not limited to tenotomy, derotational arthroplasty with tenotomy vs syndactyly vs amputation she has elected to pursue derotational arthroplasty with soft-tissue release as necessary. I discussed risks, benefits and alternatives. She understands that if this does not work to resolveher problem that amputation could be next option. She consents to proceed Antibiotic was prescribed as precaution Dru Testrake, DPM * Amari Bryan Ma - 01/01/2022 9:20 AM EDT AMB ROOMING INTAKE FLOWSHEET DATA Risk Screening Do you have concerns about personal safety or safety in the home?: No Pain Pain Level: 5 Pain Location: Toe (left 5th toe) Description: Radiating, Sore Duration Amount of Time: 2 Duration Units: Weeks Frequency: Continuous Intervention/Comfort measure: Medication documented in this encounterThe [facility]10-10-2022 Miscellaneous Notes* Telephone Encounter - Pina Springer LPN - 12/30/2021 12:06 PM EDT Scheduled 04/16/22 * Telephone Encounter - Elle Nelson Pss - 12/30/2021 9:21 AM EDT Patient has been identified by name and date of : Yes Requested Prescriptions Pending Prescriptions Disp Refills gabapentin (NEURONTIN) 300 mg capsule 90 capsule 2 Sig: Take 1 capsule by mouth three times daily for 30 days. RX INSTRUCTIONS: Pharmacy initiated this request. No need to notify patient. Elle Nelson Pss documented in this encounterThe [facility]09-28-2022 History of Present illness Narrative* Aranza Yoon RT(R) - 12/18/2021 9:30 AM EDT Radiology Service Progress Note PATIENT NAME: Inés Shanks DATE OF SERVICE: December 18, 2021 TIME: 9:33 AM PATIENT IDENTITY VERIFICATION COMPLETED USING TWO (2) IDENTIFIERS: Name and Date of confirmedby patient verbally. FALL SCREENING: Has the patient had 2 falls in the last year or 1 fall with injury or currently using an Ambulatory Assistive Device (Walker, Cane, Wheelchair, Crutches, etc.)? Yes, Patient High Riskfor Falls What interventions were put in place to prevent falls during this visit? Increased Observations by Caregivers PATIENT GENDER DATA: Female. status: : No status: NO. PATIENT RELEVANT IMPLANT DATA REVIEWED: Yes RADIOLOGY DEPARTMENT: General X-ray: Exam(s) Completed: Lower Extremity X- Ray(s): Foot, Left PERIPHERAL IV DATA: Not applicable SIGNED BY: RT Дмитрий(R) December 18, 2021 9:33 AM documented in this encounterThe [facility]09-27-2022 Miscellaneous Notes* Telephone Encounter - Mayco Valladares LPN - 12/17/2021 12:03 PM EDT Patient phones requesting refills as follows: Requested Prescriptions Pending Prescriptions Disp Refills thyroid, pork, (ARMOUR THYROID) 60 mg 60 tablet 5 Sig: Take 1 tablet by mouth twice daily. [facility] 10/07/21 04/16/22 Please review and advise. Mayco Valladares LPN documented in this encounterThe [facility]09-09-2022 Miscellaneous Notes* Telephone Encounter - Mayco Valladares LPN - 11/29/2021 3:26 PM EDT [facility] 10/07/21 04/16/22 * Telephone Encounter - Elle Nelson Pss - 11/29/2021 3:16 PM EDT Patient has been identified by name and date of : Yes Requested Prescriptions Pending Prescriptions Disp Refills metoprolol succinate ER (TOPROL XL) 25 mg 24 hr tablet 30 tablet 11 Sig: Take 1 tablet by mouth once daily. RX INSTRUCTIONS: Pharmacy initiated this request. No need to notify patient. Elle Nelson Pss documented in this encounterThe [facility]09-06-2022 Miscellaneous Notes* Telephone Encounter - Jacqueline Fontaine Ma - 11/26/2021 2:25 PM EDT Last office visit: 10/07/21 F/u scheduled: 04/16/21 Jacqueline Fontaine Ma * Telephone Encounter - Maxine Loomis - 11/26/2021 11:53 AM EDT Patient has been identified by name and date of : Yes Requested Prescriptions Pending Prescriptions Disp Refills gabapentin (NEURONTIN) 600 mg tablet 270 tablet 1 Sig: Take 1 tablet by mouth three times daily for 180 days. RX INSTRUCTIONS: Patient aware RX will be sent to pharmacy. No need to notify patient. Maxine Loomis documented in this encounterThe [facility]09-01-2022 Miscellaneous Notes* Telephone Encounter - Radha Benavides Pss - 11/21/2021 11:28 AM EDT Pharmacy verified in Epic Patient has been identified by name and date of : Yes Patient aware RX will be sent to pharmacy. No need to notify patient. Pharmacy phones for refill(s): Requested Prescriptions Pending Prescriptions Disp Refills pantoprazole DR (PROTONIX) 40 mg tablet 180 tablet 1 Sig: Take 1 tablet by mouth twice daily. Date of last office visit : 10/07/2021 Labs-10/11/21 Date of next office visit : 04/16/2022 Last 2 Encounter Wt Readings: Date: Wt: 10/07/2021 121.9 kg (268 lb 12.8 oz) 08/05/2021 121.4 kg (267 lb 9.6 oz) Please advise. Radha Benavides Pss documented in this encounterThe [facility]08-11-2022 Miscellaneous Notes* Telephone Encounter - Jacqueline Fontaine Ma - 10/31/2021 2:35 PM EDT Last office visit: 10/07/21 F/u scheduled: 04/16/22 Jacqueline Fontaine Ma * Telephone Encounter - Maxine Loomis - 10/31/2021 2:18 PM EDT Patient has been identified by name and date of : Yes Requested Prescriptions Pending Prescriptions Disp Refills lisinopril (ZESTRIL, PRINIVIL) 5 mg tablet 90 tablet 0 Sig: Take 1 tablet by mouth once daily. metoprolol succinate ER (TOPROL XL) 25 mg 24 hr tablet 30 tablet 0 Sig: Take 1 tablet by mouth once daily. metFORMIN ER (GLUCOPHAGE XR) 500 mg 24 hr tablet 90 tablet 5 Sig: Take 3 tablets by mouth daily with breakfast. RX INSTRUCTIONS: Patient aware RX will be sent to pharmacy. No need to notify patient. Maxine Loomis documented in this encounterThe [facility] System08-01-2022 Miscellaneous Notes* Telephone Encounter - Saumya Vargas APRN.CNP - 10/21/2021 4:58 PM EDT Crestor sent to the pharmacy. Please recheck labs in 2 months. The orders are in. Saumya Vargas APRN.CHILO * Telephone Encounter - Ruby Benítez LPN - 10/18/2021 9:02 AM EDT Patient returned call and went over results, notes from Saumya Vargas NP. Patient said she has not had her Amour thyroid medication since before June. Aware prior authorization has been approved and to get rx picked up and started. She plans to have her daughter get the rx for her. Patient said she is willing to take the statin wants rx sent to [facility] Retail pharmacy. Aware GETTER FILLER is out of office until 10/21. * Telephone Encounter - Jacqueline Fontaine Ma - 10/16/2021 9:18 AM EDT Mychart message sent to pt, asking them to call back for results. Jacqueline Fontaine MA * Telephone Encounter - Mayco Valladares LPN - 10/14/2021 3:28 PM EDT TC to pt, no answer, unable to leave message d/t voicemail box has not been set up yet. Mayco Valladares LPN * Telephone Encounter - Saumya Vargas APRN.CNP - 10/14/2021 9:20 AM EDT Can please let patient know that I received her lab results. Her thyroid was off. Has she been off her medication? I can see where the prior auth was just approved on Thursday. Her A1c was 6.1 for an average sugar of 128 which is controlled. Her cholesterol and triglycerides were elevated. I would suggest to consider starting a cholesterollowering medication to lower her cardiovascular risk. Please let me know if I can send this in. Saumya Vargas APRN.CNP documented in this encounterThe [facility] System07-18-2022 Instructions* Patient Instructions* Saumya Vargas APRN.CNP - 10/07/2021 2:05 PM EDT 1. Return for fasting labs. 2. Continue the same medications. 3. Recheck in 6 months. documented in this encounterThe [facility] System07-18-2022 History of Present illness Narrative* Saumya Vargas APRN.CNP - 10/07/2021 1:42 PM EDT This is a 56 year old female who presents today with: Patient presents with: Physical HISTORY OF PRESENT ILLNESS: Inés Orellana Workman is a 56 year old female. Patient presents with: Physical Pt presents today for follow-up and physical exam. REVIEW OF SYSTEMS GENERAL: No weight loss, malaise or fevers/chills. + fatigue, but thinks r/t fibromyalgia. HEENT: No changes in hearing or vision. + headaches. Did get new glasses, but sometimes will feel like needs to refocus. Has trouble hearing on the phone. NECK: Negative for lumps, goiter, pain and significant neck swelling. occ trouble swallowing -- breads, pasta, meat, corn. Has orders for EGD. RESPIRATORY: Negative for cough, hemoptysis, wheezing, dyspnea or shortness of breath. CARDIOVASCULAR: Negative for chest pain, leg swelling, orthopnea, or palpitations. + coronary-myocardial bridge -- follows w/ cardiology. GI: No nausea, vomiting, or diarrhea. No hematochezia/melena. + barretts. + constipation. : No history of dysuria, frequency or incontinence MUSCULOSKELETAL: + fibro ENDOCRINE: reports excessive thirst/urination. Refers + heat/cold intolerance. NEURO: No history of syncope, paralysis, seizures. + essential tremor. DM: Reports overall feeling well. Medication side effects: No. Home sugar checks: no Hypoglycemic spells: No. Watching diet: No. Unexpected weight loss: No. Polyuria, polydipsia: Yes. Vision Changes: Recent new glasses. Foot lesions or numbness or pain: Yes -- has neuropathy. Saw Dr. Sahu last week. HTN: Patient is compliant with meds Yes Monitors bp at home: No. Denies side effects: No. Chest pain: See above. Dyspnea: Only w/ exertion. Edema: Yes. Palpitations: No. Syncope: No. Headache: Yes. Dizziness: No. HYPERLIPIDEMIA: Patient is taking medications: n/a. Patient is watching diet: No. Patient denies myalgias: Has fibro. Patient denies gi upset: No HYPOTHYROID: Patient is compliant with medications: Has been off awhile. Patient has changes in energy: I have no energy. Patient has changes in hair or skin: Losing hair. Patient has temperature intolerance: Yes Patient has weight changes: Yes KRZYSZTOF Uses cpap consistently. Anxiety/depression Follows with Dr. Orozco. Refers still gets periods of anxiety/depression. PAST MEDICAL HISTORY: PAST MEDICAL HISTORY Diagnosis Date Anxiety Powers's esophagus Bipolar 1 disorder (HCC) Dr. Orozco, psychiatry Chronic headaches Coronary-myocardial bridge DDD (degenerative disc disease) Depression 01/05/2015 Essential tremor TK tremor Fibromyalgia GERD (gastroesophageal reflux disease) HTN (hypertension) Hyperlipidemia Hypothyroid Liver fibrosis Mild CAD 08/22/2019 Neuropathy Non-melanoma skin cancer 03/08/2021 Obstructive sleep apnea PTSD (post-traumatic stress disorder) PVD (peripheral vascular disease) (HCC) Sciatica Shoulder injury Type II or unspecified type diabetes mellitus without mention of complication, not stated as uncontrolled PAST SURGICAL HISTORY Procedure Laterality Date COLONOSCOPY FLX DX W/COLLJ SPEC WHEN PFRMD 01/10/2015 Colonoscopy DIAGNOSTIC ARTHROSCOPY SHOULDER +- SYNOVIAL BX Left 05/21/2018 Left shoulder arthroscopic subacromial decompression, open distal clavicle excision and manipulation under anesthesia EGD 2019 ENDOMETRIAL ABLATION WITH US GUIDANCE 2007 ESOPHAGOGASTRODUODENOSCOPY TRANSORAL DIAGNOSTIC 01/10/2015 EGD ESOPHAGOGASTRODUODENOSCOPY TRANSORAL DIAGNOSTIC 01/10/2016 EGD (MAC) GASTRIC BYPASS HX 03/2016 gastric sleeve HYSTERECTOMY, REVISE VAGINA; COLPECTOMY 05/16/2020 INJECTION back injections x3 PAST SURGICAL HISTORY OF 05/2020 Partial Hysterectomy w/ bladder sling TUBAL LIGATION HX 1988 ALLERGIES Cat Hair Standardized Allergenic Extract, Cats, Citric Acid, and Mold Spores MEDICATIONS Current Outpatient Medications Medication Sig gabapentin (NEURONTIN) 300 mg capsule Take 1 capsule by mouth three times daily for 30 days. metoprolol succinate ER (TOPROL XL) 25 mg 24 hr tablet Take 1 tablet by mouth once daily. lisinopril (ZESTRIL, PRINIVIL) 5 mg tablet Take 1 tablet by mouth once daily. ferrous sulfate 325 mg (65 mg iron) tablet Take 1 tablet by mouth twice daily with meals. thyroid, pork, (ARMOUR THYROID) 60 mg Take 1 tablet by mouth twice daily. gabapentin (NEURONTIN) 600 mg tablet Take 1 tablet by mouth three times daily for [address] (PROTONIX) 40 mg tablet Take 1 tablet by mouth twice daily. metFORMIN ER (GLUCOPHAGE XR) 500 mg 24 hr tablet Take 3 tablets by mouth daily with breakfast. tiZANidine (ZANAFLEX) 4 mg tablet Take 1 tablet by mouth every 8 hours as needed. ondansetron (ZOFRAN) 4 mg tablet Take 1 tablet by mouth once daily as needed. Aluminum Hydrox-Magnesium Carb (GAVISCON EXTRA STRENGTH) 254-237.5 mg/5 mL susp Take 15 mL by mouthat bedtime as needed. nitroglycerin sublingual (NITROQUICK) 0.3 mg SL tablet Dissolve 0.3 mg under the tongue every 5 minutes as needed. AUSTEDO 12 mg tab Take 12 mg by mouth twice daily. Blood-Glucose Meter (FREESTYLE LITE METER) monitoring kit Freestyle LITE Meter Kit -Test blood sugars one time daily. DX E11.40 blood sugar diagnostic (FREESTYLE LITE STRIPS) test strip Test blood sugar(s) once times daily. Dx:E11.40 Lancets lancets Test blood sugar(s) one time daily. Dx: Other DM Code E11.40 Insulin: No COMPOUNDED PRESCRIPTION Initiate AutoPAP @ 10-20 cm of water with humidification mask (per patient preference) optional chin strap (if indicated) and lifetime supplies ([facility]) DX: KRZYSZTOF G47.33 multivit with minerals/lutein (MULTIVITAMIN 50 PLUS ORAL) Take 1 tablet by mouth once daily. COMPOUNDED PRESCRIPTION Diabetic shoes One pair CPAP CPAP with humidification. Mask (per patient preference) optional chin strap (if indicated) , filters, tubing, humidifier and lifetime supplies. lamoTRIgine (LAMICTAL) 200 mg tablet Take 1 tablet by mouth twice daily. clonazePAM (KLONOPIN) 1 mg tablet 1 mg three times daily. vortioxetine (TRINTELLIX) 20 mg tab Take 1 tablet by mouth once daily. aspirin 81 mg chewable tablet Take 1 tablet by mouth once daily. CPAP Please provide supplies. Mask per preference, tubing, filters, humidity. Lifetime Supplies. Dx: G47.33 COMPOUNDED PRESCRIPTION Lightweight wheelchair DX: DDD, neuropathy Wheel Chair issac DX: debility COMPOUNDED PRESCRIPTION EX-LARGE BLOOD PRESSURE CUFF KIT DX I10 Blood Pressure Test Kit-Large (QUICK RESPONSE BP MONITOR) kit 1 Kit once daily. buPROPion HCl 200 mg 12 hr tablet Take 200 mg by mouth twice daily. cephALEXin (KEFLEX) 500 mg capsule Take 1 capsule by mouth three times daily. (Patient not taking: Reported on 10/04/2021 ) benzonatate (TESSALON PERLES) 100 mg capsule Take 2 capsules by mouth three times daily as needed. (Patient not taking: Reported on 08/09/2021 ) albuterol HFA (PROAIR HFA) 90 mcg/actuation inhaler Inhale 2 Puffs as instructed every 6 hours as needed. (Patient not taking: Reported on 10/04/2021 ) benzonatate (TESSALON PERLE) 100 mg capsule Take 2 capsules by mouth three times daily as needed. (Patient not taking: Reported on 10/04/2021 ) acetaminophen (TYLENOL EXTRA STRENGTH) 500 mg tablet Take 2 tablets by mouth every 8 hours as needed for Pain. (Patient not taking: Reported on 08/09/2021 ) iv contrast (will be provided with radiology test) MRI Brain Localization Inject, intravenously, once for 1 dose.No IV access, insert saline lock prior to beginning of sedation, infusion, injection of imaging exam.Discontinue saline lock post exam. If Pt. has a central line or IVAD, may access for administration according to line specific nursing protocol.Once exam is complete flush line and de-access according to line specific nursing protocol in the MR contrast administration guidelines link cyanocobalamin, vitamin B-12, (VITAMIN B-12 ORAL) Take 2 tablets by mouth once daily. (Patient not taking: Reported on 10/07/2021 ) No current facility-administered medications for this visit. FAMILY HISTORY Problem Relation Age of Onset Diabetes Mother Stroke Mother Cancer Mother melanoma Diabetes Paternal Grandmother Stroke Maternal Grandmother Alzheimer's Disease Maternal Grandmother Heart Father other (parkinson's) Father ADD/ADHD Son Bipolar disorder Son Bipolar disorder Daughter other (Other) Daughter behavioral disorder other (behavioral conduct disorder) Grandchild other (Other) Sister in infancy Mental illness Brother Alcohol/Drug Brother Social History Tobacco Use Smoking status: Former Smoker Packs/day: 1.50 Years: 11.00 Pack years: 16.50 Types: Cigarettes Quit date: 03/23/1989 Years since quittin.5 Smokeless tobacco: Never Used Vaping Use Vaping Use: Never used Substance Use Topics Alcohol use: No Drug use: No EXAM: BP 136/84 Pulse 68 Temp (!) 35.7 C (96.2 F) (Left Tympanic) Resp 18 Ht 172.1 cm (5' 7.75) Wt 121.9 kg (268 lb 12.8 oz) LMP 11/20/2014 (Approximate) SpO2 95% BMI 41.17 kg/m PHYSICAL EXAM: General Appearance: Well appearing, alert, in no acute distress, well-hydrated, well nourished.. Skin: Skin color, texture, turgor normal, no suspicious rashes or lesions. Head: Normocephalic, no masses, lesions, tenderness or abnormalities. Eyes: Anicteric sclera. Pupils are equally round and reactive to light. Extraocular movements are intact. Neck: Supple, no adenopathy; thyroid symmetric, normal size, no bruits. Lungs: Lungs clear to auscultation. No wheezing, rhonchi, rales.. Heart: RRR without murmur, gallop, or rubs. No ectopy. Abdomen: Abdomen soft, non-tender. Bowel sounds normal. No masses, organomegaly. Extremities: No deformities, edema, skin discoloration, clubbing or cyanosis. Good capillary refill. . Neurologic: Gait normal w/ walker. ASSESSMENT/PLAN: 1. Type 2 diabetes mellitus without complication, unspecified whether fpc insulin use (HCC) -ICD9: 250.00, ICD10: E11.9 (primary diagnosis) Due for labs. - Continue current medications - HGB A1C - COMP METABOLIC PANEL - ALBUMIN/CREAT RATIO RND UR 2. Primary hypertension - ICD9: 401.9, ICD10: I10 - fair control - Continue current medication(s) - Recommended regular aerobic exercise. - Recommend home blood pressure monitoring, to bring results in on next visit - Goal of BP <130/80 - MAGNESIUM BLD 3. Hypothyroidism, unspecified type - ICD9: 244.9, ICD10: E03.9 Get labs. - TSH BLD - T4 FREE/FREE THYROX - T3 BLD 4. Microalbuminuria - ICD9: 791.0, ICD10: R80.9 Due for annual urine albumin. 5. Essential hypertension - ICD9: 401.9, ICD10: I10 - fair control - Continue current medication(s) - Recommended regular aerobic exercise. - Recommend home blood pressure monitoring, to bring results in on next visit - Goal of BP <130/80 - COMP METABOLIC PANEL - MAGNESIUM BLD 6. Other hyperlipidemia - ICD9: 272.4, ICD10: E78.49 Did not tolerate atorvastatin in the past -- caused joint pain, which improved after stopping the statin. May consider another statin (ie pravastatin). - LIPID PANEL, NONFASTING - COMP METABOLIC PANEL 7. Iron deficiency anemia, unspecified iron deficiency anemia type - ICD9: 280.9, ICD10: D50.9 - CBC + DIFF - FERRITIN BLD - IRON + TIBC 8. Depression, unspecified depression type - ICD9: 311, ICD10: F32.A Managed by psychiatry. 9. KRZYSZTOF (obstructive sleep apnea) - ICD9: 327.23, ICD10: G47.33 Compliant w/ treatment. Discussed treatment plan and patient voices understanding. Patient's questions answered appropriately. Medications and potential side effects were discussed and patient voices understanding. Return to the office as scheduled or as needed for worsening/no improvement. Saumya Vargas APRN.CHILO documented in this encounterThe [facility]07-15-2022 Instructions* Patient Instructions* Dru Sahu - 10/04/2021 11:29 AM EDT Ulcer is healed Use betadine because of maceration. Use betadine until maceration (white discoloratoin) improves Use toe cap to prevent rubbing documented in this encounterThe [facility] System07-15-2022 History of Present illness Narrative* Dru Sahu - 10/04/2021 11:19 AM EDT FOLLOW UP PODIATRIC OFFICE VISIT Chief Complaint: This 56 year old who presents for follow up:left 5th toe ulceratoin Patient presents to clinic for evaluation of left foot She has ulceration of left 5th toe. Patient thinks the ulceration may be spreading. She was last seen on august 09 but has not since followed up because she has anxiety with doctor appointments. She is currently applying betadine and lambs wool to the toes. PAIN EVALUATION 10/04/2021 1110 Pain Level: 3 Pain Location: Toe Description: Sore Duration Amount of Time: 1 Duration Units: Months Frequency: Intermittent Intervention/Comfort measure: Reposition;Relaxation Hemoglobin A1C Date Value Ref Range Status 12/04/2020 5.3 4.3 - 5.6 % Final Comment: [place] [employer] guidelines indicate that patients with HgbA1c in the range 5.7-6.4% are at increased risk for development of diabetes, and intervention by lifestyle modification may be beneficial. HgbA1c greater or equal to 6.5% is considered diagnostic of diabetes. PCP: Santhosh Holden MD PAST MEDICAL HISTORY Diagnosis Date Anxiety Powers's esophagus Bipolar 1 disorder (HCC) Dr. Orozco, psychiatry Chronic headaches Coronary-myocardial bridge DDD (degenerative disc disease) Depression 01/05/2015 Essential tremor TK tremor Fibromyalgia GERD (gastroesophageal reflux disease) HTN (hypertension) Hyperlipidemia Hypothyroid Liver fibrosis Mild CAD 08/22/2019 Neuropathy Non-melanoma skin cancer 03/08/2021 Obstructive sleep apnea PTSD (post-traumatic stress disorder) PVD (peripheral vascular disease) (HCC) Sciatica Shoulder injury Type II or unspecified type diabetes mellitus without mention of complication, not stated as uncontrolled Current Outpatient Medications Medication Sig gabapentin (NEURONTIN) 300 mg capsule Take 1 capsule by mouth three times daily for 30 days. metoprolol succinate ER (TOPROL XL) 25 mg 24 hr tablet Take 1 tablet by mouth once daily. lisinopril (ZESTRIL, PRINIVIL) 5 mg tablet Take 1 tablet by mouth once daily. ferrous sulfate 325 mg (65 mg iron) tablet Take 1 tablet by mouth twice daily with meals. thyroid, pork, (ARMOUR THYROID) 60 mg Take 1 tablet by mouth twice daily. gabapentin (NEURONTIN) 600 mg tablet Take 1 tablet by mouth three times daily for [address] (PROTONIX) 40 mg tablet Take 1 tablet by mouth twice daily. metFORMIN ER (GLUCOPHAGE XR) 500 mg 24 hr tablet Take 3 tablets by mouth daily with breakfast. tiZANidine (ZANAFLEX) 4 mg tablet Take 1 tablet by mouth every 8 hours as needed. ondansetron (ZOFRAN) 4 mg tablet Take 1 tablet by mouth once daily as needed. Aluminum Hydrox-Magnesium Carb (GAVISCON EXTRA STRENGTH) 254-237.5 mg/5 mL susp Take 15 mL by mouthat bedtime as needed. nitroglycerin sublingual (NITROQUICK) 0.3 mg SL tablet Dissolve 0.3 mg under the tongue every 5 minutes as needed. iv contrast (will be provided with radiology test) MRI Brain Localization Inject, intravenously, once for 1 dose.No IV access, insert saline lock prior to beginning of sedation, infusion, injection of imaging exam.Discontinue saline lock post exam. If Pt. has a central line or IVAD, may access for administration according to line specific nursing protocol.Once exam is complete flush line and de-access according to line specific nursing protocol in the MR contrast administration guidelines link AUSTEDO 12 mg tab Take 12 mg by mouth twice daily. Blood-Glucose Meter (FREESTYLE LITE METER) monitoring kit Freestyle LITE Meter Kit -Test blood sugars one time daily. DX E11.40 blood sugar diagnostic (FREESTYLE LITE STRIPS) test strip Test blood sugar(s) once times daily. Dx:E11.40 Lancets lancets Test blood sugar(s) one time daily. Dx: Other DM Code E11.40 Insulin: No COMPOUNDED PRESCRIPTION Initiate AutoPAP @ 10-20 cm of water with humidification mask (per patient preference) optional chin strap (if indicated) and lifetime supplies ([facility]) DX: KRZYSZTOF G47.33 multivit with minerals/lutein (MULTIVITAMIN 50 PLUS ORAL) Take 1 tablet by mouth once daily. cyanocobalamin, vitamin B-12, (VITAMIN B-12 ORAL) Take 2 tablets by mouth once daily. COMPOUNDED PRESCRIPTION Diabetic shoes One pair CPAP CPAP with humidification. Mask (per patient preference) optional chin strap (if indicated) , filters, tubing, humidifier and lifetime supplies. lamoTRIgine (LAMICTAL) 200 mg tablet Take 1 tablet by mouth twice daily. clonazePAM (KLONOPIN) 1 mg tablet 1 mg three times daily. vortioxetine (TRINTELLIX) 20 mg tab Take 1 tablet by mouth once daily. aspirin 81 mg chewable tablet Take 1 tablet by mouth once daily. CPAP Please provide supplies. Mask per preference, tubing, filters, humidity. Lifetime Supplies. Dx: G47.33 COMPOUNDED PRESCRIPTION Lightweight wheelchair DX: DDD, neuropathy Wheel Chair issac DX: debility COMPOUNDED PRESCRIPTION EX-LARGE BLOOD PRESSURE CUFF KIT DX I10 Blood Pressure Test Kit-Large (QUICK RESPONSE BP MONITOR) kit 1 Kit once daily. buPROPion HCl 200 mg 12 hr tablet Take 200 mg by mouth twice daily. cephALEXin (KEFLEX) 500 mg capsule Take 1 capsule by mouth three times daily. (Patient not taking: Reported on 10/04/2021 ) benzonatate (TESSALON PERLES) 100 mg capsule Take 2 capsules by mouth three times daily as needed. (Patient not taking: Reported on 08/09/2021 ) albuterol HFA (PROAIR HFA) 90 mcg/actuation inhaler Inhale 2 Puffs as instructed every 6 hours as needed. (Patient not taking: Reported on 10/04/2021 ) benzonatate (TESSALON PERLE) 100 mg capsule Take 2 capsules by mouth three times daily as needed. (Patient not taking: Reported on 10/04/2021 ) acetaminophen (TYLENOL EXTRA STRENGTH) 500 mg tablet Take 2 tablets by mouth every 8 hours as needed for Pain. (Patient not taking: Reported on 08/09/2021 ) No current facility-administered medications for this visit. ALLERGIES Allergen Reactions Cat Hair Standardiz* Itching Eyes get really red, if cat is too close, can't breathe Cats Itching Eyes get really red, if cat is too close, can't breathe Citric Acid Intolerance Mold Spores Other: See Comments Flu like symptoms PAST SURGICAL HISTORY Procedure Laterality Date COLONOSCOPY FLX DX W/COLLJ SPEC WHEN PFRMD 01/10/2015 Colonoscopy DIAGNOSTIC ARTHROSCOPY SHOULDER +- SYNOVIAL BX Left 05/21/2018 Left shoulder arthroscopic subacromial decompression, open distal clavicle excision and manipulation under anesthesia EGD 2019 ENDOMETRIAL ABLATION WITH US GUIDANCE 2007 ESOPHAGOGASTRODUODENOSCOPY TRANSORAL DIAGNOSTIC 01/10/2015 EGD ESOPHAGOGASTRODUODENOSCOPY TRANSORAL DIAGNOSTIC 01/10/2016 EGD (MAC) GASTRIC BYPASS HX 03/2016 gastric sleeve HYSTERECTOMY, REVISE VAGINA; COLPECTOMY 05/16/2020 INJECTION back injections x3 PAST SURGICAL HISTORY OF 05/2020 Partial Hysterectomy w/ bladder sling TUBAL LIGATION HX 1988 Physical Exam: OBJECTIVE: Constitutional: Pt is a well developed 56 year old female who is alert, oriented, cooperative and in no apparent distress. Eyes: Following during examination. No redness or drainage. Respiratory: RR normal and nonlabored. Even breathing. No evidence of distress. Psychology: Patient is engaged during conversation. Normal affect and mood. Does not appear depressed or anxious. NVSI unchanged from previous visit. Non-Invasive Vascular Laboratory [facility] Lower Extremity Arterial Physiology Study Bilateral/Complete Date of service/time: 08/14/2021 1:32:16 PM Name: MS. INÉS SHANKS Date of : 1965 Age: 55 years Gender: F Medical History Diabetes: Yes Clinical Indication Abnormal pulses and leg/foot ulceration. TECHNIQUE -------- An arterial physiological examination was performed, including measurement of blood pressures using continuous wave Doppler and recording of plethysmographic with or without Doppler waveforms at the below-mentioned limb segments. FINDINGS -------- RIGHT SIDE AT REST Right Doppler Waveforms Dorsalis pedis: Triphasic. Post tibial: Triphasic. Right Pressures Brachial: 149 mmHg Ankle dorsalis pedis: 174 mmHg ALLYSSA: 1.17 Ankle posterior tibial: 176 mmHg ALLYSSA: 1.18 Digit: 172 mmHg Right PVR Waveforms Ankle: Normal. Digit: Normal. LEFT SIDE AT REST Left Doppler Waveforms Dorsalis pedis: Triphasic. Post tibial: Triphasic. Left Pressures Brachial: 148 mmHg Ankle dorsalis pedis: 176 mmHg ALLYSSA: 1.18 Ankle posterior tibial: 174 mmHg ALLYSSA: 1.17 Digit: 175 mmHg Left PVR Waveforms Ankle: Normal. Digit: Normal. IMPRESSION RIGHT SIDE Resting right ankle brachial index: 1.18 Right toe brachial index: 1.15 Normal ankle brachial index at rest in the right leg. Normal toe brachial index at rest in the right leg. Right ankle: Normal at rest. LEFT SIDE Resting left ankle brachial index: 1.18 Left toe brachial index: 1.17 Normal ankle brachial index at rest in the left leg. Normal toe brachial index at rest in the left leg. Left ankle: Normal at rest. Technologist: Ingrid Holder RVT, [facility] Ordering physician: DRU SAHU Interpreting physician: Evin Diana MD Dermatological: There is maceration of left 4th interspace with punctate opening with periwound peeling. This was debrided with tissue nippers and the prior ulceration appears healed. Musculoskeletal/Orthopaedic: Patient has pain to palpation of left 5th toe. There is slight swelling of left 5th toe ASSESSMENT: (L97.521) Ulcer of toe of left foot, limited to breakdown of skin (HCC) (primary encounter diagnosis) (E11.49) Other diabetic neurological complication associated with type 2 diabetes mellitus (HCC) PLAN: Patient ulceration now appears healed. There is small punctate opening but upon close inspection and superficial debridement, the ulceration is healed In order to perform a complete physical exam, limited shaving of callus area was performed. This incidental service is integral to the evaluation and management visit in order to appropriately manageand treat the patient (for their complaint or for this visit). Maceration is present and would treat with betadine and use of gel toe cap to prevent rubbing Discussed options for the 5th toe. Discussed syndacytly vs arthroplasty vs amputation. Patient would like to try conservative care. Offered follow-up xrays. She declined. Dru Sahu DPM * Yesika Botello RN - 10/04/2021 11:08 AM EDT AMB ROOMING INTAKE FLOWSHEET DATA Pain Pain Level: 3 Pain Location: Toe Description: Sore Duration Amount of Time: 1 Duration Units: Months Frequency: Intermittent Intervention/Comfort measure: Reposition, Relaxation Patient presents with: Left 5th Toe - Follow Up, Ulcer documented in this encounterThe [facility]07-14-2022 Miscellaneous Notes* Telephone Encounter - Erlinda Lisa - 10/03/2021 3:58 PM EDT Inés Orellana Workman is calling Santhosh Holden MD today, she is requesting all necessary lab orders areplaced for her upcoming appointment on 10/07/21. She would need an answer today, since tomorrow is already Thursday. Patient has been identified by name and birthdate. Duration of symptoms: N/A Person calling: self Call patient at: on cell [phone] (home) [phone] (cell) Was an appointment scheduled: No Closing statement: Results or non-symptom based questions: Thank you for calling [facility], your call will be returned within the next business day. Erlinda Lisa documented in this encounterThe [facility]07-14-2022 Miscellaneous Notes* Telephone Encounter - Erlinda Crenshaw Pss - 10/03/2021 3:55 PM EDT Patient has been identified by name and date of : Yes Pending Prescriptions Disp Refills GABAPENTIN 300 MG CAPSULE 90 capsule 2 Sig: Take 1 capsule by mouth three times daily for 30 days. ZAIN: No RX INSTRUCTIONS: Patient is out of the medication today. Patient aware RX will be sent to pharmacy. No need to notify patient. Erlinda Crenshaw Pss documented in this encounterThe [facility]07-11-2022 Miscellaneous Notes* Telephone Encounter - Carol Robison APRN.CNP - 09/30/2021 2:11 PM EDT The following approved medication requests have been transmitted electronically. Pending Prescriptions Disp Refills METOPROLOL SUCCINATE ER 25 MG TABLET,EXTENDED RELEASE 24 HR 30 tablet 0 Sig: Take 1 tablet by mouth once daily. ZAIN: No Carol Robison APRN.CNP * Telephone Encounter - Trina Ramirez LPN - 09/30/2021 10:59 AM EDT Received a request for refill on medication below from Pharmacy. Spoke with pt and she has been scheduled for a physical 10/07/21. Please order labs to be done before apt and call pt to schedule lab apt. Patient has been identified by name and date of : Yes Pharmacy phones for refill(s): Pending Prescriptions Disp Refills METOPROLOL SUCCINATE ER 25 MG TABLET,EXTENDED RELEASE 24 HR 30 tablet 0 Sig: Take 1 tablet by mouth once daily. ZAIN: No Date of last office visit in primary care: 05/30/20 Last 2 Encounter Wt Readings: Date: Wt: 08/05/2021 121.4 kg (267 lb 9.6 oz) 04/14/2021 118.8 kg (262 lb) Previous labs/tests for medication: Blood Pressure: BUN (mg/dL) Date Value 05/30/2020 11 Sodium (mmol/L) Date Value 05/30/2020 143 Last 1 Encounter BP Readings: Date: BP: 08/05/2021 122/68 Please advise. Thank you. Trina Ramirez LPN documented in this encounterThe [facility]06-18-2022 Miscellaneous Notes* Telephone Encounter - Chichi Lisa - 09/07/2021 9:09 AM EDT 2nd attempt unable to leave a message to schedule physical with PCP or care steam hand for future refills in the next 30 days. My chart message also sent. * Telephone Encounter - Chichi Lisa - 09/06/2021 11:20 AM EDT Unable to reach patient no Vm My chart message being sent. * Telephone Encounter - Mayco Valladares LPN - 09/02/2021 3:39 PM EDT Ok for anyone in PCP team- Saumya Koo. Mayco Valladares LPN * Telephone Encounter - Carol Caraballo - 09/02/2021 2:21 PM EDTSummary: Appoinment There are no 40 min slots for Gaffney available before the 30 day time period, is there anyway the patient could see the GETTER FILLER? * Telephone Encounter - Mayco Valladares LPN - 09/02/2021 2:05 PM EDT Schedulers please assist pt with scheduling a 40 min appt with PCP within the next 30 days. Mayco Valladares LPN * Telephone Encounter - Susanna Dukes LPN - 08/30/2021 1:56 PM EDT T/C to pt voice mail not set up yet. Will need to try back. * Telephone Encounter - Santhosh Holden MD - 08/30/2021 1:08 PM EDT Needs seen to continue to get meds. * Telephone Encounter - Vicki Hamm [facility] - 08/29/2021 11:03 AM EDT Patient has been identified by name and date of : Yes Pending Prescriptions Disp Refills GABAPENTIN 300 MG CAPSULE 270 capsule 1 Sig: Take 1 capsule by mouth three times daily for 90 days. ZAIN: No METOPROLOL SUCCINATE ER 25 MG TABLET,EXTENDED RELEASE 24 HR 90 tablet 0 Sig: Take 1 tablet by mouth once daily. ZAIN: No ELVIN-05/30/20 Labs-12/04/20 NOV-none RX INSTRUCTIONS: Pharmacy initiated this request. No need to notify patient. Vicki Hamm [facility] documented in this encounterThe [facility] System05-23-2022 Miscellaneous Notes* Telephone Encounter - Santhosh Holden MD - 08/12/2021 1:58 PM EDT She needs check up. * Telephone Encounter - J Lusi Cavazos RN - 08/12/2021 1:51 PM EDT Bernardo- [facility]- reports patient is diabetic and not on a statin. Asking pcp, is there a reasonpatient is not on a statin. Please advise Bernardo. documented in this encounterThe [facility] System05-20-2022 Miscellaneous Notes* Telephone Encounter - Erum Mata LPN - 08/09/2021 1:42 PM EDT Still unable to reach patient so will wait for patient to return call for her negative results.Erum Mata LPN * Telephone Encounter - Erum Mata LPN - 08/09/2021 8:17 AM EDT Still unable to reach patient will try later.Erum Mata LPN * Telephone Encounter - Erum Mata LPN - 08/08/2021 8:45 AM EDT Unable to reach patient and mailbox is not set up yet-try later.Erum Mata LPN * Telephone Encounter - Erum Mata LPN - 08/08/2021 8:45 AM EDT ----- Message from Teresa Araiza APRN.[employer] sent at 08/08/2021 8:40 AM EDT ----- Please advise patient of negative test result ([facility] documented in this encounterThe [facility] System05-20-2022 Miscellaneous Notes* Telephone Encounter - Elle Fairbanks - 08/09/2021 12:55 PM EDT 3rd attempt: unable to lvm. Thank you, Elle Fairbanks * Telephone Encounter - Chichi Lisa - 08/06/2021 10:00 AM EDT 2 nd attempt to reach patient. Unable to leave message due to no voicemail setup for patient to call office to schedule follow up per PCP. My chart also sent * Telephone Encounter - Jose White Pss - 08/02/2021 11:27 AM EDT 1st attempt to reach patient. Unable to leave message due to no voicemail setup for patient to calloffice to schedule follow up per PCP. * Telephone Encounter - Santhosh Holden MD - 08/02/2021 10:32 AM EDT rx sent * Telephone Encounter - Mayco Valladares LPN - 08/02/2021 10:15 AM EDT Schedulers please assist pt with scheduling pt for 40 min annual appt (pt last seen by PCP 05/30/20). * Telephone Encounter - Mayco Valladares LPN - 08/02/2021 10:14 AM EDT ELVIN 05/30/20 NOV no upcoming appt *Pt overdue for follow up appt. Routed to scheduling for appt. Mayco Valladares LPN * Telephone Encounter - Vicki Barahona - 08/02/2021 9:50 AM EDT Patient has been identified by name and date of : Yes Pending Prescriptions Disp Refills LISINOPRIL 5 MG TABLET 90 tablet 0 Sig: Take 1 tablet by mouth once daily. ZAIN: No RX INSTRUCTIONS: Patient aware RX will be sent to pharmacy. No need to notify patient. Vicki Hamm [facility] documented in this encounterThe [facility] System05-20-2022 Instructions* Patient Instructions* Dru Sahu - 08/09/2021 9:04 AM EDT Recommend betadine to left 5th toe daily Apply band aid to left 5th toe Use lambs wool between toes to prevent rubbing F/u 2 weeks Diabetes Foot Care Instructions When you have diabetes, proper foot care is very important. Poor foot care may lead to amputation of a foot or leg. As a person with diabetes, you are more vulnerable to foot problems, because diabetes can damage your nerves and reduce blood flow to your feet. Here are some diabetes foot care tips to follow: Wash and Dry Your Feet Daily Use mild soaps Use warm water Pat your skin dry; do not rub. Thoroughly dry your feet. After washing, use lotion on your feet to prevent cracking. Do not put lotion between your toes. Examine Your Feet Each Day Check the tops and bottoms of your feet. Have someone else look at your feet if you cannot see them. Check for dry, cracked skin. Look for blisters, cuts, scratches, or other sores. Check for redness, increased warmth, or tenderness when touching any area of your feet. Check for ingrown toenails, corns, and calluses. If you get a blister or sore from your shoes, do not pop it. Apply a bandage and wear a differentpair of shoes. Take Care of Your Toenails Cut toenails after bathing, when they are soft. Cut toenails straight across and smooth with a nail file. Avoid cutting into the corners of toes. Do not cut cuticles. If you have neuropathy (or decreased sensation in your feet) a outsole flexer should always cut your toenails. Be Careful When Exercising Walk and exercise in comfortable shoes. Do not exercise when you have open sores on your feet. Protect Your Feet With Shoes and Socks Never go barefoot. Always protect your feet by wearing shoes or hard-soled slippers or footwear. Avoid shoes with high heels and pointed toes. Avoid shoes that expose your toes or heels (such as open-toed shoes or sandals). These types of shoes increase your risk for injury and potential infections. Try on new footwear with the type of socks you usually wear. Do not wear new shoes for more than an hour at a time. Change your socks daily. Look and feel inside your shoes before putting them on to make sure there are no foreign objects orrough areas. Avoid tight socks. Wear natural-fiber socks (cotton, wool, or a cotton-wool blend). Wear special shoes if your health care provider recommends them. Wear shoes/boots that will protect your feet from various weather conditions (cold, moisture, etc.). Make sure your shoes fit properly. If you have neuropathy (nerve damage), you may not notice that your shoes are too tight. Perform the footwear test described below. Footwear Test Use this simple test to see if your shoes fit correctly: Stand on a piece of paper. (Make sure you are standing and not sitting, because your foot changes shape when you stand.) Trace the outline of your foot. Trace the outline of your shoe. Compare the tracings: Is the shoe too narrow? Is your foot crammed into the shoe? The shoe should be at least 1/2 inch longer than your longest toe and as wide as your foot. Proper Shoe Choices The following types of shoes are best for people with diabetes Closed toes and heels Leather uppers without a seam inside At least 1/2 inch extra space at the end of your longest toe Inside of shoe should be soft with no rough areas Outer sole should be made of stiff material Shoes should be at least as wide as your feet Tips for Foot Care in Diabetes Don't wait to treat a minor foot problem if you have diabetes. Follow your health care provider's guidelines and first aid guidelines. Report foot injuries and infections to your health care provider immediately. Check water temperature with your elbow, not your foot. Do not use a heating pad on your feet. Do not cross your legs. Do not self-treat your corns, calluses, or other foot problems. Go to your health care provider or outsole flexer to treat these conditions. documented in this encounterThe [facility]05-20-2022 History of Present illness Narrative* Dru Sahu - 08/09/2021 8:52 AM EDT Initial Office Visit Subjective: This 55 year old female presents to clinic for diabetic foot check. Patient has the following complaints: ulceration of left 5th toe Patient presents with ulceraiton of left 5th toe. The ulceration is located between the left 4th and left 5th toe and has been present for one month. She has been cleaning with soap and water but is not applying anything to the sore as she does not know what to put on it. Patient reports the ulceration is draining a yellow discharge. Patient admits to being diabetic for 12 years now but has not checked her sugars in quite some time. Patient +B/T/N in feet at this time. Patient -pain in legs when walking. No other pedal complaintsat this time. No change in medications or medical history since last visit. PAIN EVALUATION No data found in the last 1 encounters. Hemoglobin A1C (%) Date Value 12/04/2020 5.3 05/04/2020 5.5 02/24/2020 5.4 08/31/2019 6.0 09/24/2018 7.8 PCP: Santhosh Holden MD PAST MEDICAL HISTORY Diagnosis Date Anxiety Powers's esophagus Bipolar 1 disorder ([facility]) Dr. Orozco, psychiatry Chronic headaches Coronary-myocardial bridge DDD (degenerative disc disease) Depression 01/05/2015 Essential tremor TK tremor Fibromyalgia GERD (gastroesophageal reflux disease) HTN (hypertension) Hyperlipidemia Hypothyroid Liver fibrosis Mild CAD 08/22/2019 Neuropathy Non-melanoma skin cancer 03/08/2021 Obstructive sleep apnea PTSD (post-traumatic stress disorder) PVD (peripheral vascular disease) ([facility]) Sciatica Shoulder injury Type II or unspecified type diabetes mellitus without mention of complication, not stated as uncontrolled Current Outpatient Medications Medication Sig doxycycline (VIBRA-TABS) 100 mg tablet Take 1 tablet by mouth twice daily for 7 days. albuterol HFA (PROAIR HFA) 90 mcg/actuation inhaler Inhale 2 Puffs as instructed every 6 hours as needed. predniSONE (DELTASONE) 20 mg tablet Take 2 tablets by mouth once daily for 5 days. lisinopril (ZESTRIL, PRINIVIL) 5 mg tablet Take 1 tablet by mouth once daily. ferrous sulfate 325 mg (65 mg iron) tablet Take 1 tablet by mouth twice daily with meals. thyroid, pork, (ARMOUR THYROID) 60 mg Take 1 tablet by mouth twice daily. gabapentin (NEURONTIN) 600 mg tablet Take 1 tablet by mouth three times daily for [address] (PROTONIX) 40 mg tablet Take 1 tablet by mouth twice daily. metFORMIN ER (GLUCOPHAGE XR) 500 mg 24 hr tablet Take 3 tablets by mouth daily with breakfast. benzonatate (TESSALON PERLE) 100 mg capsule Take 2 capsules by mouth three times daily as needed. tiZANidine (ZANAFLEX) 4 mg tablet Take 1 tablet by mouth every 8 hours as needed. ondansetron (ZOFRAN) 4 mg tablet Take 1 tablet by mouth once daily as needed. Aluminum Hydrox-Magnesium Carb (GAVISCON EXTRA STRENGTH) 254-237.5 mg/5 mL susp Take 15 mL by mouthat bedtime as needed. gabapentin (NEURONTIN) 300 mg capsule Take 1 capsule by mouth three times daily for 90 days. nitroglycerin sublingual (NITROQUICK) 0.3 mg SL tablet Dissolve 0.3 mg under the tongue every 5 minutes as needed. iv contrast (will be provided with radiology test) MRI Brain Localization Inject, intravenously, once for 1 dose.No IV access, insert saline lock prior to beginning of sedation, infusion, injection of imaging exam.Discontinue saline lock post exam. If Pt. has a central line or IVAD, may access for administration according to line specific nursing protocol.Once exam is complete flush line and de-access according to line specific nursing protocol in the MR contrast administration guidelines link AUSTEDO 12 mg tab Take 12 mg by mouth twice daily. metoprolol succinate ER (TOPROL XL) 25 mg 24 hr tablet Take 25 mg by mouth once daily. Blood-Glucose Meter (FREESTYLE LITE METER) monitoring kit Freestyle LITE Meter Kit -Test blood sugars one time daily. DX E11.40 blood sugar diagnostic (FREESTYLE LITE STRIPS) test strip Test blood sugar(s) once times daily. Dx:E11.40 Lancets lancets Test blood sugar(s) one time daily. Dx: Other DM Code E11.40 Insulin: No COMPOUNDED PRESCRIPTION Initiate AutoPAP @ 10-20 cm of water with humidification mask (per patient preference) optional chin strap (if indicated) and lifetime supplies ([facility] transfer) DX: KRZYSZTOF G47.33 multivit with minerals/lutein (MULTIVITAMIN 50 PLUS ORAL) Take 1 tablet by mouth once daily. COMPOUNDED PRESCRIPTION Diabetic shoes One pair CPAP CPAP with humidification. Mask (per patient preference) optional chin strap (if indicated) , filters, tubing, humidifier and lifetime supplies. lamoTRIgine (LAMICTAL) 200 mg tablet Take 1 tablet by mouth twice daily. clonazePAM (KLONOPIN) 1 mg tablet 1 mg three times daily. vortioxetine (TRINTELLIX) 20 mg tab Take 1 tablet by mouth once daily. aspirin 81 mg chewable tablet Take 1 tablet by mouth once daily. CPAP Please provide supplies. Mask per preference, tubing, filters, humidity. Lifetime Supplies. Dx: G47.33 COMPOUNDED PRESCRIPTION Lightweight wheelchair DX: DDD, neuropathy Wheel Chair issac DX: debility COMPOUNDED PRESCRIPTION EX-LARGE BLOOD PRESSURE CUFF KIT DX I10 Blood Pressure Test Kit-Large (QUICK RESPONSE BP MONITOR) kit 1 Kit once daily. buPROPion HCl 200 mg 12 hr tablet Take 200 mg by mouth twice daily. benzonatate (TESSALON PERLES) 100 mg capsule Take 2 capsules by mouth three times daily as needed. (Patient not taking: Reported on 08/09/2021 ) acetaminophen (TYLENOL EXTRA STRENGTH) 500 mg tablet Take 2 tablets by mouth every 8 hours as needed for Pain. (Patient not taking: Reported on 08/09/2021 ) cyanocobalamin, vitamin B-12, (VITAMIN B-12 ORAL) Take 2 tablets by mouth once daily. (Patient not taking: Reported on 08/09/2021 ) No current facility-administered medications for this visit. ALLERGIES Allergen Reactions Cat Hair Standardiz* Itching Eyes get really red, if cat is too close, can't breathe Cats Itching Eyes get really red, if cat is too close, can't breathe Citric Acid Intolerance Mold Spores Other: See Comments Flu like symptoms PAST SURGICAL HISTORY Procedure Laterality Date COLONOSCOPY FLX DX W/COLLJ SPEC WHEN PFRMD 01/10/2015 Colonoscopy DIAGNOSTIC ARTHROSCOPY SHOULDER +- SYNOVIAL BX Left 05/21/2018 Left shoulder arthroscopic subacromial decompression, open distal clavicle excision and manipulation under anesthesia EGD 2019 ENDOMETRIAL ABLATION WITH US GUIDANCE 2008 ESOPHAGOGASTRODUODENOSCOPY TRANSORAL DIAGNOSTIC 01/10/2015 EGD ESOPHAGOGASTRODUODENOSCOPY TRANSORAL DIAGNOSTIC 01/10/2016 E[place] ([facility] [place] GASTRIC BYPASS HX 03/2016 gastric sleeve HYSTERECTOMY, REVISE VAGINA; COLPECTOMY 05/16/2020 INJECTION back injections x3 PAST SURGICAL HISTORY OF 05/2020 Partial Hysterectomy w/ bladder sling TUBAL LIGATION HX 1988 FAMILY HISTORY Problem Relation Age of Onset Diabetes Mother Stroke Mother Cancer Mother melanoma Diabetes Paternal Grandmother Stroke Maternal Grandmother Alzheimer's Disease Maternal Grandmother Heart Father other (parkinson's) Father ADD/ADHD Son Bipolar disorder Son Bipolar disorder Daughter other (Other) Daughter behavioral disorder other (behavioral conduct disorder) Grandchild other (Other) Sister in infancy Mental illness Brother Alcohol/Drug Brother Social History Tobacco Use Smoking status: Former Smoker Packs/day: 1.50 Years: 11.00 Pack years: 16.50 Types: Cigarettes Quit date: 03/23/1989 Years since quittin.4 Smokeless tobacco: Never Used Vaping Use Vaping Use: Never used Substance Use Topics Alcohol use: No Drug use: No REVIEW OF SYSTEMS GENERAL: Negative for Malaise, significant weight loss, fever RESPIRATORY: Negative for cough, wheezing and shortness of breath CARDIOVASCULAR: Negative for chest pain, leg swelling and palpitations GI: Negative for abdominal discomfort, blood in stools or black stools and change in bowel habits : Negative for dysuria, frequency and incontinence MUSCULOSKELETAL: Negative for joint pain or swelling, back pain, and muscle pain. SKIN: Negative for lesions, rash, and itching. HEMATOLOGY/LYMPHOLOGY Negative for prolonged bleeding, bruising easily, and swollen nodes. ENDOCRINE: Negative for cold or heat intolerance, polyuria, polydipsia and goiter. NEURO: negative The remainder of the review of systems is noncontributory. Objective: Patient presents to clinic ambulating in [facility] Constitutional: Pt is a well developed 55 year old female who is alert, oriented, cooperative and in no apparent distress. Eyes: Following during examination. No redness or drainage. Respiratory: RR normal and nonlabored. Even breathing. No evidence of distress. Psychology: Patient is engaged during conversation. Normal affect and mood. Does not appear depressed or anxious. Vasc: DP pulses palpable bilateral. PT pulses nonpalpable b/l. CFT is less than 5 seconds bilateral. Skin temperature is warm to cool proximal to distal bilateral. There is mild edema or varicosities noted. Hair growth absent. Neuro: Protective sensation is absent to the foot and toes when tested with the 5.07 SWM bilateral.Vibratory sensation is absent at the hallux bilateral. + Significant neurological defecits. Derm: Inspection and palpation performed. Nails 1-6 b/l are discolored-yellow, thick, crumbly, dystrophic and with subungal debris. Skin is thin and ruborous and hair growth is absent. Hyperkeratosisnoted to not present. 1 mm ulceration to medial aspect of left 5th toe. No drainage present but slight redness present. Ortho: Ankle joint DF is decreased with the knee extended and decreased with knee flexed. No pain or crepitus noted. STJ, MTJ ROM are full and free of pain or crepitus. Muscle strength is 5/5 for dorsiflexors, plantarflexors, inverters, everters. Digital deformities include swelling of left 5th toe. Assessment: (L97.521) Ulcer of toe of left foot, limited to breakdown of skin (HCC) (primary encounter diagnosis) (E11.49) Other diabetic neurological complication associated with type (R09.89) Diminished pulses in lower extremity (B35.1) Onychomycosis Plan: 1. Patient was seen and evaluated. 2. Patient was instructed on the continued importance of diabetic foot care along with proper diet and keeping their blood sugar under control to prevent complications. Instructions given both oral and written. 3. Discussed ulceration of left 5th toe. There is slight redness present. Recommend keflex 500 mg tid. Will treat with betadine and band aid and lambs wool between toes to prevent rubbing. Removing pressure is rojo to healing of this ulceration. The ulceration was debrided thru dermis today of nonviable tissue with tissue nippers. Total debridement was 1 mm x 1 mm 4. Toenails 1-5 b/l debrided in length and thickness 5. F/u in 2 weeks 6. pvr ordered Dru Sahu DPM * Yesika Botello RN - 08/09/2021 8:39 AM EDT Patient presents with: Left Foot - New Patient, Diabetic Foot Care Right Foot - New Patient, Diabetic Foot Care Patient due for diabetic foot exam. Reports ulcer to L 5th medial toe x 1 month. States 4th and 5thtoes rub causing ulcer. documented in this encounterThe [facility] System05-20-2022 History of Present illness Narrative* RT Tisha(R) - 08/09/2021 8:10 AM EDT Radiology Service Progress Note PATIENT NAME: Inés Shanks DATE OF SERVICE: August 09, 2021 TIME: 8:13 AM PATIENT IDENTITY VERIFICATION COMPLETED USING TWO (2) IDENTIFIERS: Name and Date of confirmedby patient verbally. FALL SCREENING: Has the patient had 2 falls in the last year or 1 fall with injury or currently using an Ambulatory Assistive Device (Walker, Cane, Wheelchair, Crutches, etc.)? Yes, Patient High Riskfor Falls What interventions were put in place to prevent falls during this visit? Instructed Patient to Callfor Help if Needed, Offered Assistance with Transfers/Clothing, Instructed Patient to Remain Seated(Not on Exam Table) Until Exam, Increased Observations by Caregivers and Patient Refused Interventio ns/Assistance PATIENT GENDER DATA: Female. status: : No status: NO. PATIENT RELEVANT IMPLANT DATA REVIEWED: Not Applicable RADIOLOGY DEPARTMENT: General X-ray: Exam(s) Completed: Lower Extremity X- Ray(s): Feet, Bilateral and Wt. Bearing PERIPHERAL IV DATA: Not applicable SIGNED BY: RT Tisha(R) August 09, 2021 8:13 AM documented in this encounterThe [facility] System05-16-2022 History of Present illness Narrative* Poonam Garrido PA-C - 08/05/2021 10:44 AM EDT This note was created using [employer]. Subjective Inés Shanks is a 55 year old female. HPI Patient presents with cough and congestion for 2 weeks. She does have a frontal headache in her forehead as well. No fever. She states that she is vaccinated for COVID-19. She denies vomiting or diarrhea. She states during a coughing fit she does feel short of breath. She has tried NyQuil [id number]. She is a former smoker. Denies history of asthma or COPD. Her ribs do hurt from coughing. No change in smell or taste. Review of Systems Constitutional: Negative. HENT: Positive for congestion, ear pain, sinus pressure, sinus pain and sore throat. Respiratory: Positive for cough, shortness of breath and wheezing. Negative for chest tightness. Cardiovascular: Rib pain from cough Gastrointestinal: Negative. Genitourinary: Negative. Musculoskeletal: Negative. All other systems reviewed and are negative. PAST MEDICAL HISTORY Diagnosis Date Anxiety Powers's esophagus Bipolar 1 disorder ([facility]) Dr. Orozco, psychiatry Chronic headaches Coronary-myocardial bridge DDD (degenerative disc disease) Depression 01/05/2015 Essential tremor TK tremor Fibromyalgia GERD (gastroesophageal reflux disease) HTN (hypertension) Hyperlipidemia Hypothyroid Liver fibrosis Mild CAD 08/22/2019 Neuropathy Non-melanoma skin cancer 03/08/2021 Obstructive sleep apnea PTSD (post-traumatic stress disorder) PVD (peripheral vascular disease) ([facility]) Sciatica Shoulder injury Type II or unspecified type diabetes mellitus without mention of complication, not stated as uncontrolled Current Outpatient Medications Medication Sig Dispense Refill lisinopril (ZESTRIL, PRINIVIL) 5 mg tablet Take 1 tablet by mouth once daily. 90 tablet 0 ferrous sulfate 325 mg (65 mg iron) tablet Take 1 tablet by mouth twice daily with meals. 60 tablet5 thyroid, pork, (ARMOUR THYROID) 60 mg Take 1 tablet by mouth twice daily. 60 tablet 5 gabapentin (NEURONTIN) 600 mg tablet Take 1 tablet by mouth three times daily for 180 days. [address] (PROTONIX) 40 mg tablet Take 1 tablet by mouth twice daily. 180 tablet 1 metFORMIN ER (GLUCOPHAGE XR) 500 mg 24 hr tablet Take 3 tablets by mouth daily with breakfast. 90 tablet 5 benzonatate (TESSALON PERLE) 100 mg capsule Take 2 capsules by mouth three times daily as needed. 30 capsule 1 tiZANidine (ZANAFLEX) 4 mg tablet Take 1 tablet by mouth every 8 hours as needed. 20 tablet 3 ondansetron (ZOFRAN) 4 mg tablet Take 1 tablet by mouth once daily as needed. 10 tablet 1 Aluminum Hydrox-Magnesium Carb (GAVISCON EXTRA STRENGTH) 254-237.5 mg/5 mL susp Take 15 mL by mouthat bedtime as needed. 335 mL 3 acetaminophen (TYLENOL EXTRA STRENGTH) 500 mg tablet Take 2 tablets by mouth every 8 hours as needed for Pain. 40 tablet 0 nitroglycerin sublingual (NITROQUICK) 0.3 mg SL tablet Dissolve 0.3 mg under the tongue every 5 minutes as needed. AUSTEDO 12 mg tab Take 12 mg by mouth twice daily. metoprolol succinate ER (TOPROL XL) 25 mg 24 hr tablet Take 25 mg by mouth once daily. Blood-Glucose Meter (FREESTYLE LITE METER) monitoring kit Freestyle LITE Meter Kit -Test blood sugars one time daily. DX E11.40 1 Each 0 blood sugar diagnostic (FREESTYLE LITE STRIPS) test strip Test blood sugar(s) once times daily. Dx:E11.40 25 Strip 3 Lancets lancets Test blood sugar(s) one time daily. Dx: Other DM Code E11.40 Insulin: No 100 Each 11 COMPOUNDED PRESCRIPTION Initiate AutoPAP @ 10-20 cm of water with humidification mask (per patient preference) optional chin strap (if indicated) and lifetime supplies ([facility]) DX: KRZYSZTOF G47.33 1 Device 0 multivit with minerals/lutein (MULTIVITAMIN 50 PLUS ORAL) Take 1 tablet by mouth once daily. cyanocobalamin, vitamin B-12, (VITAMIN B-12 ORAL) Take 2 tablets by mouth once daily. COMPOUNDED PRESCRIPTION Diabetic shoes One pair 1 Each 0 CPAP CPAP with humidification. Mask (per patient preference) optional chin strap (if indicated) , filters, tubing, humidifier and lifetime supplies. 1 Device 0 lamoTRIgine (LAMICTAL) 200 mg tablet Take 1 tablet by mouth twice daily. 60 tablet 5 clonazePAM (KLONOPIN) 1 mg tablet 1 mg three times daily. vortioxetine (TRINTELLIX) 20 mg tab Take 1 tablet by mouth once daily. aspirin 81 mg chewable tablet Take 1 tablet by mouth once daily. 0 CPAP Please provide supplies. Mask per preference, tubing, filters, humidity. Lifetime Supplies. Dx: G47.33 1 Device 0 COMPOUNDED PRESCRIPTION Lightweight wheelchair DX: DDD, neuropathy 1 Each 0 Wheel Chair issac DX: debility 1 Device 0 COMPOUNDED PRESCRIPTION EX-LARGE BLOOD PRESSURE CUFF KIT DX I10 1 Kit 0 Blood Pressure Test Kit-Large (QUICK RESPONSE BP MONITOR) kit 1 Kit once daily. 1 Kit 0 buPROPion HCl 200 mg 12 hr tablet Take 200 mg by mouth twice daily. doxycycline (VIBRA-TABS) 100 mg tablet Take 1 tablet by mouth twice daily for 7 days. 14 tablet 0 benzonatate (TESSALON PERLES) 100 mg capsule Take 2 capsules by mouth three times daily as needed. 30 capsule 0 albuterol HFA (PROAIR HFA) 90 mcg/actuation inhaler Inhale 2 Puffs as instructed every 6 hours as needed. 1 Inhaler 0 predniSONE (DELTASONE) 20 mg tablet Take 2 tablets by mouth once daily for 5 days. 10 tablet 0 gabapentin (NEURONTIN) 300 mg capsule Take 1 capsule by mouth three times daily for 90 days. 270 capsule 1 iv contrast (will be provided with radiology test) MRI Brain Localization Inject, intravenously, once for 1 dose.No IV access, insert saline lock prior to beginning of sedation, infusion, injection of imaging exam.Discontinue saline lock post exam. If Pt. has a central line or IVAD, may access for administration according to line specific nursing protocol.Once exam is complete flush line and de-access according to line specific nursing protocol in the MR contrast administration guidelines link 1 Each 0 No current facility-administered medications for this visit. PAST SURGICAL HISTORY Procedure Laterality Date COLONOSCOPY FLX DX W/COLLJ SPEC WHEN PFRMD 01/10/2015 Colonoscopy DIAGNOSTIC ARTHROSCOPY SHOULDER +- SYNOVIAL BX Left 05/21/2018 Left shoulder arthroscopic subacromial decompression, open distal clavicle excision and manipulation under anesthesia EGD 2019 ENDOMETRIAL ABLATION WITH US GUIDANCE 2007 ESOPHAGOGASTRODUODENOSCOPY TRANSORAL DIAGNOSTIC 01/10/2015 EGD ESOPHAGOGASTRODUODENOSCOPY TRANSORAL DIAGNOSTIC 01/10/2016 EGD (MAC) GASTRIC BYPASS HX 03/2016 gastric sleeve HYSTERECTOMY, REVISE VAGINA; COLPECTOMY 05/16/2020 INJECTION back injections x3 PAST SURGICAL HISTORY OF 05/2020 Partial Hysterectomy w/ bladder sling TUBAL LIGATION HX 1988 FAMILY HISTORY Problem Relation Age of Onset Diabetes Mother Stroke Mother Cancer Mother melanoma Diabetes Paternal Grandmother Stroke Maternal Grandmother Alzheimer's Disease Maternal Grandmother Heart Father other (parkinson's) Father ADD/ADHD Son Bipolar disorder Son Bipolar disorder Daughter other (Other) Daughter behavioral disorder other (behavioral conduct disorder) Grandchild other (Other) Sister in infancy Mental illness Brother Alcohol/Drug Brother Social History Tobacco Use Smoking status: Former Smoker Packs/day: 1.50 Years: 11.00 Pack years: 16.50 Types: Cigarettes Quit date: 03/23/1989 Years since quittin.3 Smokeless tobacco: Never Used Vaping Use Vaping Use: Never used Substance Use Topics Alcohol use: No Drug use: No Objective BP 122/68 Pulse 72 Temp 36.4 C (97.6 F) Resp 18 Wt 121.4 kg (267 lb 9.6 oz) LMP 11/20/2014 (Approximate) SpO2 95% BMI 40.69 kg/m Physical Exam Vitals reviewed. Constitutional: Appearance: Normal appearance. HENT: Head: Normocephalic and atraumatic. Right Ear: Tympanic membrane, ear canal and external ear normal. Left Ear: Tympanic membrane, ear canal and external ear normal. Nose: Congestion present. Right Sinus: Frontal sinus tenderness present. Left Sinus: Frontal sinus tenderness present. Mouth/Throat: Mouth: Mucous membranes are moist. Pharynx: Oropharynx is clear. No posterior oropharyngeal erythema. Cardiovascular: Rate and Rhythm: Normal rate and regular rhythm. Heart sounds: Normal heart sounds. Pulmonary: Effort: Pulmonary effort is normal. Breath sounds: Normal breath sounds. Comments: Harsh cough noted Musculoskeletal: Cervical back: Neck supple. Lymphadenopathy: Cervical: No cervical adenopathy. Skin: General: Skin is warm and dry. Findings: No rash. Neurological: General: No focal deficit present. Mental Status: She is alert. Assessment and Plan ASSESSMENT/PLAN: 1. Sinobronchitis - ICD9: 473.9, 490, ICD10: J32.9, J40 - Will begin treatment with Doxycycline, prednisone, tessalon and albuterol mdi. - Supportive care with plenty of fluids, rest, and analgesia prn. - Follow up in 3-5 days if symptoms persist or worsen. - XR CHEST 2V FRONTAL/LAT-clear, no pneumonia. - 2019 CORONAVIRUS Poonam Garrido PA-C documented [facility]The [facility] History of Present illness Narrative* Aranza Yoon RT(R) - 08/05/2021 9:00 AM EDT Radiology Service Progress Note PATIENT NAME: Inés Shanks DATE OF SERVICE: August 05, 2021 TIME: 9:13 AM PATIENT IDENTITY VERIFICATION COMPLETED USING TWO (2) IDENTIFIERS: Name and Date of confirmedby patient verbally. FALL SCREENING: Has the patient had 2 falls in the last year or 1 fall with injury or currently using an Ambulatory Assistive Device (Walker, Cane, Wheelchair, Crutches, etc.)? Yes, Patient High Riskfor Falls What interventions were put in place to prevent falls during this visit? Increased Observations by Caregivers PATIENT GENDER DATA: Female. status: : No status: NO. PATIENT RELEVANT IMPLANT DATA REVIEWED: Yes RADIOLOGY DEPARTMENT: General X-ray: Exam(s) Completed: Chest X-Ray PERIPHERAL IV DATA: Not applicable SIGNED BY: RT Дмитрий(R) August 05, 2021 9:13 AM documented in this encounterThe [facility]05-05-2022 Miscellaneous Notes* Telephone Encounter - Brittany Joshua Ma - 07/25/2021 12:23 PM EDT Reviewed Covermymeds and [facility] Tried calling patient but no answer or available voicemail. Patient will need to call [facility] and make sure information is updated and accurate. Brittany Joshua Ma * Telephone Encounter - Brittany Joshua Ma - 07/04/2021 10:15 AM EDT Prior Authorization has been completed online at [email or web address] for [place] [facility] , will await response. [id number] Please keep encounter open until final decision has been received and documented from insurance company. Brittany Joshua MA documented in this encounterThe [facility]04-12-[facility]22 Miscellaneous Notes* Telephone Encounter - Chichi Sena RN - 07/02/2021 11:55 AM EDT Patient has been identified by name and date of : Yes Pharmacy phones for refill(s): Pending Prescriptions Disp Refills FERROUS SULFATE 325 MG (65 MG IRON) TABLET 60 tablet Sig: Take 1 tablet by mouth twice daily with meals. ZAIN: No THYROID (PORK) 60 MG TABLET 60 tablet Sig: Take 1 tablet by mouth twice daily. ZAIN: No Date of last office visit in primary care: 05/30/20, NOV: 07/29/21 Last 2 Encounter Wt Readings: Date: Wt: 04/14/2021 118.8 kg (262 lb) 03/08/2021 115.7 kg (255 lb) Previous labs/tests for medication: Thyroid: TSH (uU/mL) Date Value 05/30/2020 2.500 Blood Counts: WBC (k/uL) Date Value 05/30/2020 6.75 RBC (m/uL) Date Value 05/30/2020 3.87 Hematocrit (%) Date Value 05/30/2020 33.6 Hemoglobin (g/dL) Date Value 05/30/2020 10.7 Platelet Count (k/uL) Date Value 05/30/2020 242 Please advise. Thank you. Chichi Sena RN documented in this encounterThe [facility]12-17-[facility]21 History of Past illness Narrative* Problem Noted Date Diagnosed Date Resolved Date Colon cancer screening 03/08/202112/05 Shoulder injury 02/10/2018 05/30/2020 Impingement syndrome of left shoulder 10/23/2017 05/30/2020 Acute pain of left shoulder 10/22/2017 05/30/2020 Morbid obesity due to excess calories 03/31/2016 07/04/2016 Type 2 diabetes mellitus wit h diabetic neuropathy, without long-term current use of insulin 01/08/2016 07/04/2016 documented as of this encounter (statuses as of 01/26/2023) [facility] of Past illness Narrative* Problem Noted Date Diagnosed Date Resolved Date Colon cancer screening 03/08/202112/05 Shoulder injury 02/10/2018 05/30/2020 Impingement syndrome of left shoulder 10/23/2017 05/30/2020 Acute pain of left shoulder 10/22/2017 05/30/2020 Morbid obesity due to excess calories 03/31/2016 07/04/2016 Type 2 diabetes mellitus wit h diabetic neuropathy, without long-term current use of insulin 01/08/2016 07/04/2016 documented as of this encounter (statuses as of 01/26/2023) [facility] of Past illness Narrative* Problem Noted Date Diagnosed Date Resolved Date Colon cancer screening 03/08/202112/05 Shoulder injury 02/10/2018 05/30/2020 Impingement syndrome of left shoulder 10/23/2017 05/30/2020 Acute pain of left shoulder 10/22/2017 05/30/2020 Morbid obesity due to excess calories 03/31/2016 07/04/2016 Type 2 diabetes mellitus wit h diabetic neuropathy, without long-term current use of insulin 01/08/2016 07/04/2016 documented as of this encounter (statuses as of 01/26/2023) [facility] History of Present illness Narrative* Suzy Johnson (Rt), Tech - 02/24/2020 4:30 PM EST Radiology Service Progress Note PATIENT NAME: Inés Shanks DATE OF SERVICE: February 24, 2020 TIME: 4:40 PM PATIENT IDENTITY VERIFICATION COMPLETED USING TWO (2) IDENTIFIERS: Name and Date of confirmedby patient verbally. FALL SCREENING: Has the patient had 2 falls in the last year or 1 fall with injury or currently using an Ambulatory Assistive Device (Walker, Cane, Wheelchair, Crutches, etc.)? Yes, Patient High Riskfor Falls What interventions were put in place to prevent falls during this visit? Instructed Patient to Callfor Help if Needed, Offered Assistance with Transfers/Clothing and Instructed Patient to Remain Seated (Not on Exam Table) Until Exam PATIENT GENDER DATA: Female. status: : No status: NO. PATIENT RELEVANT IMPLANT DATA REVIEWED: Not Applicable RADIOLOGY DEPARTMENT: General X-ray: Exam(s) Completed: Lower Extremity X- Ray(s): Toes, Right: PERIPHERAL IV DATA: Not applicable SIGNED BY: RT Alfredo February 24, 2020 4:40 PM documented in this encounterThe [facility]11-21-2018 History of Past illness Narrative* Problem Noted Date Resolved Date Shoulder injury 02/10/2018 05/30/2020 Impingement syndrome of left shoulder 10/23/2017 05/30/2020 Acute pain of left shoulder 10/22/201705/21 Morbid obesity due to excess calories 03/31/2016 07/04/2016 Type 2 diabetes mellitus wit h diabetic neuropathy, without long-term current use of insulin 01/08/2016 07/04/2016 documented as of this encounter (statuses as of 07/02/2021) [facility] of Past illness Narrative* Problem Noted Date Resolved Date Shoulder injury 02/10/2018 05/30/2020 Impingement syndrome of left shoulder 10/23/2017 05/30/2020 Acute pain of left shoulder 10/22/201705/21 Morbid obesity due to excess calories 03/31/2016 07/04/2016 Type 2 diabetes mellitus wit h diabetic neuropathy, without long-term current use of insulin 01/08/2016 07/04/2016 documented as of this encounter (statuses as of 07/25/2021) [facility] of [facility] Narrative* Problem Noted Date Resolved Date Shoulder injury 02/10/2018 05/30/2020 Impingement syndrome of left shoulder 10/23/2017 05/30/2020 Acute pain of left shoulder 10/22/201705/21 Morbid obesity due to excess calories 03/31/2016 07/04/2016 Type 2 diabetes mellitus wit h diabetic neuropathy, without long-term current use of insulin 01/08/2016 07/04/2016 documented as of this encounter (statuses as of 08/05/2021) [facility] Narrative* Problem Noted Date Resolved Date Shoulder injury 02/10/2018 05/30/2020 Impingement syndrome of left shoulder 10/23/2017 05/30/2020 Acute pain of left shoulder 10/22/201705/21 Morbid obesity due to excess calories 03/31/2016 07/04/2016 Type 2 diabetes mellitus wit h diabetic neuropathy, without long-term current use of insulin 01/08/2016 07/04/2016 documented as of this encounter (statuses as of 08/09/2021) [facility] of [facility] Narrative* Problem Noted Date Resolved Date Shoulder injury 02/10/2018 05/30/2020 Impingement syndrome of left shoulder 10/23/2017 05/30/2020 Acute pain of left shoulder 10/22/201705/21 Morbid obesity due to excess calories 03/31/2016 07/04/2016 Type 2 diabetes mellitus wit h diabetic neuropathy, without long-term current use of insulin 01/08/2016 07/04/2016 documented as of this encounter (statuses as of 08/09/2021) [facility] Narrative* Problem Noted Date Resolved Date Shoulder injury 02/10/2018 05/30/2020 Impingement syndrome of left shoulder 10/23/2017 05/30/2020 Acute pain of left shoulder 10/22/201705/21 Morbid obesity due to excess calories 03/31/2016 07/04/2016 Type 2 diabetes mellitus wit h diabetic neuropathy, without long-term current use of insulin 01/08/2016 07/04/2016 documented as of this encounter (statuses as of 08/09/2021) [facility] Narrative* Problem Noted Date Resolved Date Shoulder injury 02/10/2018 05/30/2020 Impingement syndrome of left shoulder 10/23/2017 05/30/2020 Acute pain of left shoulder 10/22/201705/21 Morbid obesity due to excess calories 03/31/2016 07/04/2016 Type 2 diabetes mellitus wit h diabetic neuropathy, without long-term current use of insulin 01/08/2016 07/04/2016 documented as of this encounter (statuses as of 08/10/2021) [facility] Narrative* Problem Noted Date Resolved Date Shoulder injury 02/10/2018 05/30/2020 Impingement syndrome of left shoulder 10/23/2017 05/30/2020 Acute pain of left shoulder 10/22/201705/211 Morbid obesity due to excess calories 03/31/2016 07/04/2016 Type 2 diabetes mellitus wit h diabetic neuropathy, without long-term current use of insulin 01/08/2016 07/04/2016 documented as of this encounter (statuses as of 08/12/2021) [facility] Narrative* Problem Noted Date Resolved Date Shoulder injury 02/10/2018 05/30/2020 Impingement syndrome of left shoulder 10/23/2017 05/30/2020 Acute pain of left shoulder 10/22/201705/21 Morbid obesity due to excess calories 03/31/2016 07/04/2016 Type 2 diabetes mellitus wit h diabetic neuropathy, without long-term current use of insulin 01/08/2016 07/04/2016 documented as of this encounter (statuses as of 09/07/2021) [facility] Narrative* Problem Noted Date Resolved Date Shoulder injury 02/10/2018 05/30/2020 Impingement syndrome of left shoulder 10/23/2017 05/30/2020 Acute pain of left shoulder 10/22/201705/21 Morbid obesity due to excess calories 03/31/2016 07/04/2016 Type 2 diabetes mellitus wit h diabetic neuropathy, without long-term current use of insulin 01/08/2016 07/04/2016 documented as of this encounter (statuses as of 10/03/2021) [facility] Narrative* Problem Noted Date Resolved Date Shoulder injury 02/10/2018 05/30/2020 Impingement syndrome of left shoulder 10/23/2017 05/30/2020 Acute pain of left shoulder 10/22/201705/21 Morbid obesity due to excess calories 03/31/2016 07/04/2016 Type 2 diabetes mellitus wit h diabetic neuropathy, without long-term current use of insulin 01/08/2016 07/04/2016 documented as of this encounter (statuses as of 10/03/2021) [facility] Narrative* Problem Noted Date Resolved Date Shoulder injury 02/10/2018 05/30/2020 Impingement syndrome of left shoulder 10/23/2017 05/30/2020 Acute pain of left shoulder 10/22/201705/21 Morbid obesity due to excess calories 03/31/2016 07/04/2016 Type 2 diabetes mellitus wit h diabetic neuropathy, without long-term current use of insulin 01/08/2016 07/04/2016 documented as of this encounter (statuses as of 10/04/2021) [facility] Narrative* Problem Noted Date Resolved Date Shoulder injury 02/10/2018 05/30/2020 Impingement syndrome of left shoulder 10/23/2017 05/30/2020 Acute pain of left shoulder 10/22/201705/21 Morbid obesity due to excess calories 03/31/2016 07/04/2016 Type 2 diabetes mellitus wit h diabetic neuropathy, without long-term current use of insulin 01/08/2016 07/04/2016 documented as of this encounter (statuses as of 10/07/2021) [facility] Narrative* Problem Noted Date Resolved Date Shoulder injury 02/10/2018 05/30/2020 Impingement syndrome of left shoulder 10/23/2017 05/30/2020 Acute pain of left shoulder 10/22/201705/21 Morbid obesity due to excess calories 03/31/2016 07/04/2016 Type 2 diabetes mellitus wit h diabetic neuropathy, without long-term current use of insulin 01/08/2016 07/04/2016 documented as of this encounter (statuses as of 10/21/2021) [facility] Narrative* Problem Noted Date Resolved Date Shoulder injury 02/10/2018 05/30/2020 Impingement syndrome of left shoulder 10/23/2017 05/30/2020 Acute pain of left shoulder 10/22/201705/21 Morbid obesity due to excess calories 03/31/2016 07/04/2016 Type 2 diabetes mellitus wit h diabetic neuropathy, without long-term current use of insulin 01/08/2016 07/04/2016 documented as of this encounter (statuses as of 11/01/2021) [facility] Narrative* Problem Noted Date Resolved Date Shoulder injury 02/10/2018 05/30/2020 Impingement syndrome of left shoulder 10/23/2017 05/30/2020 Acute pain of left shoulder 10/22/201705/21 Morbid obesity due to excess calories 03/31/2016 07/04/2016 Type 2 diabetes mellitus wit h diabetic neuropathy, without long-term current use of insulin 01/08/2016 07/04/2016 documented as of this encounter (statuses as of 11/21/2021) [facility] Narrative* Problem Noted Date Resolved Date Shoulder injury 02/10/2018 05/30/2020 Impingement syndrome of left shoulder 10/23/2017 05/30/2020 Acute pain of left shoulder 10/22/201705/21 Morbid obesity due to excess calories 03/31/2016 07/04/2016 Type 2 diabetes mellitus wit h diabetic neuropathy, without long-term current use of insulin 01/08/2016 07/04/2016 documented as of this encounter (statuses as of 11/26/2021) [facility] Narrative* Problem Noted Date Resolved Date Shoulder injury 02/10/2018 05/30/2020 Impingement syndrome of left shoulder 10/23/2017 05/30/2020 Acute pain of left shoulder 10/22/201705/21 Morbid obesity due to excess calories 03/31/2016 07/04/2016 Type 2 diabetes mellitus wit h diabetic neuropathy, without long-term current use of insulin 01/08/2016 07/04/2016 documented as of this encounter (statuses as of 11/29/2021) [facility] Narrative* Problem Noted Date Resolved Date Shoulder injury 02/10/2018 05/30/2020 Impingement syndrome of left shoulder 10/23/2017 05/30/2020 Acute pain of left shoulder 10/22/201705/21 Morbid obesity due to excess calories 03/31/2016 07/04/2016 Type 2 diabetes mellitus wit h diabetic neuropathy, without long-term current use of insulin 01/08/2016 07/04/2016 documented as of this encounter (statuses as of 12/17/2021) [facility]arr[facility]* Problem Noted Date Resolved Date Shoulder injury 02/10/2018 05/30/2020 Impingement syndrome of left shoulder 10/23/2017 05/30/2020 Acute pain of left shoulder 10/22/2017/ Morbid obesity due to excess calories 03/31/2016 07/04/2016 Type 2 diabetes mellitus wit h diabetic neuropathy, without long-term current use of insulin 01/08/2016 07/04/2016 documented as of this encounter (statuses as of 12/19/2021) [facility]arr[facility]* Problem Noted Date Resolved Date Shoulder injury 02/10/2018 05/30/2020 Impingement syndrome of left shoulder 10/23/2017 05/30/2020 Acute pain of left shoulder 10/22/2017/ Morbid obesity due to excess calories 03/31/2016 07/04/2016 Type 2 diabetes mellitus wit h diabetic neuropathy, without long-term current use of insulin 01/08/2016 07/04/2016 documented as of this encounter (statuses as of 12/30/2021) [facility]arr[facility]* Problem Noted Date Resolved Date Shoulder injury 02/10/2018 05/30/2020 Impingement syndrome of left shoulder 10/23/2017 05/30/2020 Acute pain of left shoulder 10/22/201705/21 Morbid obesity due to excess calories 03/31/2016 07/04/2016 Type 2 diabetes mellitus wit h diabetic neuropathy, without long-term current use of insulin 01/08/2016 07/04/2016 documented as of this encounter (statuses as of 01/01/2022) [facility]* Problem Noted Date Resolved Date Shoulder injury 02/10/2018 05/30/2020 Impingement syndrome of left shoulder 10/23/2017 05/30/2020 Acute pain of left shoulder 10/22/2017/ Morbid obesity due to excess calories 03/31/2016 07/04/2016 Type 2 diabetes mellitus wit h diabetic neuropathy, without long-term current use of insulin 01/08/2016 07/04/2016 documented as of this encounter (statuses as of 01/05/2022) [facility]* Problem Noted Date Resolved Date Shoulder injury 02/10/2018 05/30/2020 Impingement syndrome of left shoulder 10/23/2017 05/30/2020 Acute pain of left shoulder 10/22/201705/21 Morbid obesity due to excess calories 03/31/2016 07/04/2016 Type 2 diabetes mellitus wit h diabetic neuropathy, without long-term current use of insulin 01/08/2016 07/04/2016 documented as of this encounter (statuses as of 01/06/2022) [facility]* Problem Noted Date Resolved Date Shoulder injury 02/10/2018 05/30/2020 Impingement syndrome of left shoulder 10/23/2017 05/30/2020 Acute pain of left shoulder 10/22/201705/21 Morbid obesity due to excess calories 03/31/2016 07/04/2016 Type 2 diabetes mellitus wit h diabetic neuropathy, without long-term current use of insulin 01/08/2016 07/04/2016 documented as of this encounter (statuses as of 01/10/2022) [facility]arrative* Problem Noted Date Resolved Date Shoulder injury 02/10/2018 05/30/2020 Impingement syndrome of left shoulder 10/23/2017 05/30/2020 Acute pain of left shoulder 10/22/201705/21 Morbid obesity due to excess calories 03/31/2016 07/04/2016 Type 2 diabetes mellitus wit h diabetic neuropathy, without long-term current use of insulin 01/08/2016 07/04/2016 documented as of this encounter (statuses as of 01/17/2022) [facility]* Problem Noted Date Resolved Date Shoulder injury 02/10/2018 05/30/2020 Impingement syndrome of left shoulder 10/23/2017 05/30/2020 Acute pain of left shoulder 10/22/201705/21 Morbid obesity due to excess calories 03/31/2016 07/04/2016 Type 2 diabetes mellitus wit h diabetic neuropathy, without long-term current use of insulin 01/08/2016 07/04/2016 documented as of this encounter (statuses as of 01/27/2022) [facility] History of Past illness Narrative* Problem Noted Date Resolved Date Shoulder injury 02/10/2018 05/30/2020 Impingement syndrome of left shoulder 10/23/2017 05/30/2020 Acute pain of left shoulder 10/22/201705/21 Morbid obesity due to excess calories 03/31/2016 07/04/2016 Type 2 diabetes mellitus wit h diabetic neuropathy, without long-term current use of insulin 01/08/2016 07/04/2016 documented as of this encounter (statuses as of 01/30/2022) [facility] History of Past illness Narrative* Problem Noted Date Resolved Date Shoulder injury 02/10/2018 05/30/2020 Impingement syndrome of left shoulder 10/23/2017 05/30/2020 Acute pain of left shoulder 10/22/2017/ Morbid obesity due to excess calories 03/31/2016 07/04/2016 Type 2 diabetes mellitus wit h diabetic neuropathy, without long-term current use of insulin 01/08/2016 07/04/2016 documented as of this encounter (statuses as of 01/31/2022) [facility] History of Past illness Narrative* Problem Noted Date Resolved Date Shoulder injury 02/10/2018 05/30/2020 Impingement syndrome of left shoulder 10/23/2017 05/30/2020 Acute pain of left shoulder 10/22/201705/21 Morbid obesity due to excess calories 03/31/2016 07/04/2016 Type 2 diabetes mellitus wit h diabetic neuropathy, without long-term current use of insulin 01/08/2016 07/04/2016 documented as of this encounter (statuses as of 02/04/2022) [facility] History of Past illness Narrative* Problem Noted Date Resolved Date Shoulder injury 02/10/2018 05/30/2020 Impingement syndrome of left shoulder 10/23/2017 05/30/2020 Acute pain of left shoulder 10/22/201705/21 Morbid obesity due to excess calories 03/31/2016 07/04/2016 Type 2 diabetes mellitus wit h diabetic neuropathy, without long-term current use of insulin 01/08/2016 07/04/2016 documented as of this encounter (statuses as of 02/24/2022) [facility] History of Past illness Narrative* Problem Noted Date Resolved Date Shoulder injury 02/10/2018 05/30/2020 Impingement syndrome of left shoulder 10/23/2017 05/30/2020 Acute pain of left shoulder 10/22/201705/21 Morbid obesity due to excess calories 03/31/2016 07/04/2016 Type 2 diabetes mellitus wit h diabetic neuropathy, without long-term current use of insulin 01/08/2016 07/04/2016 documented as of this encounter (statuses as of 03/28/2022) [facility] History of Past illness Narrative* Problem Noted Date Resolved Date Shoulder injury 02/10/2018 05/30/2020 Impingement syndrome of left shoulder 10/23/2017 05/30/2020 Acute pain of left shoulder 10/22/201705/21 Morbid obesity due to excess calories 03/31/2016 07/04/2016 Type 2 diabetes mellitus wit h diabetic neuropathy, without long-term current use of insulin 01/08/2016 07/04/2016 documented as of this encounter (statuses as of 04/28/2022) [facility] History of Past illness Narrative* Problem Noted Date Resolved Date Shoulder injury 02/10/2018 05/30/2020 Impingement syndrome of left shoulder 10/23/2017 05/30/2020 Acute pain of left shoulder 10/22/201705/21 Morbid obesity due to excess calories 03/31/2016 07/04/2016 Type 2 diabetes mellitus wit h diabetic neuropathy, without long-term current use of insulin 01/08/2016 07/04/2016 documented as of this encounter (statuses as of 05/06/2022) [facility] History of Past illness Narrative* Problem Noted Date Resolved Date Shoulder injury 02/10/2018 05/30/2020 Impingement syndrome of left shoulder 10/23/2017 05/30/2020 Acute pain of left shoulder 10/22/201705/21 Morbid obesity due to excess calories 03/31/2016 07/04/2016 Type 2 diabetes mellitus wit h diabetic neuropathy, without long-term current use of insulin 01/08/2016 07/04/2016 documented as of this encounter (statuses as of 05/08/2022) [facility] History of Past illness Narrative* Problem Noted Date Resolved Date Shoulder injury 02/10/2018 05/30/2020 Impingement syndrome of left shoulder 10/23/2017 05/30/2020 Acute pain of left shoulder 10/22/201705/21 Morbid obesity due to excess calories 03/31/2016 07/04/2016 Type 2 diabetes mellitus wit h diabetic neuropathy, without long-term current use of insulin 01/08/2016 07/04/2016 documented as of this encounter (statuses as of 05/23/2022) [facility] History of Past illness Narrative* Problem Noted Date Resolved Date Shoulder injury 02/10/2018 05/30/2020 Impingement syndrome of left shoulder 10/23/2017 05/30/2020 Acute pain of left shoulder 10/22/201705/21 Morbid obesity due to excess calories 03/31/2016 07/04/2016 Type 2 diabetes mellitus wit h diabetic neuropathy, without long-term current use of insulin 01/08/2016 07/04/2016 documented as of this encounter (statuses as of 05/29/2022) [facility] History of Past illness Narrative* Problem Noted Date Resolved Date Shoulder injury 02/10/2018 05/30/2020 Impingement syndrome of left shoulder 10/23/2017 05/30/2020 Acute pain of left shoulder 10/22/201705/21 Morbid obesity due to excess calories 03/31/2016 07/04/2016 Type 2 diabetes mellitus wit h diabetic neuropathy, without long-term current use of insulin 01/08/2016 07/04/2016 documented as of this encounter (statuses as of 05/30/2022) [facility] History of Past illness Narrative* Problem Noted Date Resolved Date Shoulder injury 02/10/2018 05/30/2020 Impingement syndrome of left shoulder 10/23/2017 05/30/2020 Acute pain of left shoulder 10/22/201705/21 Morbid obesity due to excess calories 03/31/2016 07/04/2016 Type 2 diabetes mellitus wit h diabetic neuropathy, without long-term current use of insulin 01/08/2016 07/04/2016 documented as of this encounter (statuses as of 05/30/2022) [facility] History of Past illness Narrative* Problem Noted Date Resolved Date Shoulder injury 02/10/2018 05/30/2020 Impingement syndrome of left shoulder 10/23/2017 05/30/2020 Acute pain of left shoulder 10/22/201705/21 Morbid obesity due to excess calories 03/31/2016 07/04/2016 Type 2 diabetes mellitus wit h diabetic neuropathy, without long-term current use of insulin 01/08/2016 07/04/2016 documented as of this encounter (statuses as of 06/06/2022) [facility] History of Past illness Narrative* Problem Noted Date Resolved Date Shoulder injury 02/10/2018 05/30/2020 Impingement syndrome of left shoulder 10/23/2017 05/30/2020 Acute pain of left shoulder 10/22/201705/21 Morbid obesity due to excess calories 03/31/2016 07/04/2016 Type 2 diabetes mellitus wit h diabetic neuropathy, without long-term current use of insulin 01/08/2016 07/04/2016 documented as of this encounter (statuses as of 06/11/2022) [facility] History of Past illness Narrative* Problem Noted Date Resolved Date Shoulder injury 02/10/2018 05/30/2020 Impingement syndrome of left shoulder 10/23/2017 05/30/2020 Acute pain of left shoulder 10/22/201705/21 Morbid obesity due to excess calories 03/31/2016 07/04/2016 Type 2 diabetes mellitus wit h diabetic neuropathy, without long-term current use of insulin 01/08/2016 07/04/2016 documented as of this encounter (statuses as of 06/18/2022) [facility] History of Past illness Narrative* Problem Noted Date Resolved Date Shoulder injury 02/10/2018 05/30/2020 Impingement syndrome of left shoulder 10/23/2017 05/30/2020 Acute pain of left shoulder 10/22/201705/21 Morbid obesity due to excess calories 03/31/2016 07/04/2016 Type 2 diabetes mellitus wit h diabetic neuropathy, without long-term current use of insulin 01/08/2016 07/04/2016 documented as of this encounter (statuses as of 06/23/2022) [facility] History of Past illness Narrative* Problem Noted Date Resolved Date Shoulder injury 02/10/2018 05/30/2020 Impingement syndrome of left shoulder 10/23/2017 05/30/2020 Acute pain of left shoulder 10/22/201705/21 Morbid obesity due to excess calories 03/31/2016 07/04/2016 Type 2 diabetes mellitus wit h diabetic neuropathy, without long-term current use of insulin 01/08/2016 07/04/2016 documented as of this encounter (statuses as of 06/23/2022) [facility] History of Past illness Narrative* Problem Noted Date Resolved Date Shoulder injury 02/10/2018 05/30/2020 Impingement syndrome of left shoulder 10/23/2017 05/30/2020 Acute pain of left shoulder 10/22/201705/21 Morbid obesity due to excess calories 03/31/2016 07/04/2016 Type 2 diabetes mellitus wit h diabetic neuropathy, without long-term current use of insulin 01/08/2016 07/04/2016 documented as of this encounter (statuses as of 07/17/2022) [facility] History of Past illness Narrative* Problem Noted Date Resolved Date Shoulder injury 02/10/2018 05/30/2020 Impingement syndrome of left shoulder 10/23/2017 05/30/2020 Acute pain of left shoulder 10/22/201705/21 Morbid obesity due to excess calories 03/31/2016 07/04/2016 Type 2 diabetes mellitus wit h diabetic neuropathy, without long-term current use of insulin 01/08/2016 07/04/2016 documented as of this encounter (statuses as of 07/29/2022) [facility] History of Past illness Narrative* Problem Noted Date Resolved Date Shoulder injury 02/10/2018 05/30/2020 Impingement syndrome of left shoulder 10/23/2017 05/30/2020 Acute pain of left shoulder 10/22/201705/21 Morbid obesity due to excess calories 03/31/2016 07/04/2016 Type 2 diabetes mellitus wit h diabetic neuropathy, without long-term current use of insulin 01/08/2016 07/04/2016 documented as of this encounter (statuses as of 08/06/2022) [facility] History of Past illness Narrative* Problem Noted Date Resolved Date Shoulder injury 02/10/2018 05/30/2020 Impingement syndrome of left shoulder 10/23/2017 05/30/2020 Acute pain of left shoulder 10/22/201705/21 Morbid obesity due to excess calories 03/31/2016 07/04/2016 Type 2 diabetes mellitus wit h diabetic neuropathy, without long-term current use of insulin 01/08/2016 07/04/2016 documented as of this encounter (statuses as of 08/27/2022) [facility] History of Past illness Narrative* Problem Noted Date Resolved Date Shoulder injury 02/10/2018 05/30/2020 Impingement syndrome of left shoulder 10/23/2017 05/30/2020 Acute pain of left shoulder 10/22/201705/21 Morbid obesity due to excess calories 03/31/2016 07/04/2016 Type 2 diabetes mellitus wit h diabetic neuropathy, without long-term current use of insulin 01/08/2016 07/04/2016 documented as of this encounter (statuses as of 09/03/2022) [facility] History of Past illness Narrative* Problem Noted Date Resolved Date Shoulder injury 02/10/2018 05/30/2020 Impingement syndrome of left shoulder 10/23/2017 05/30/2020 Acute pain of left shoulder 10/22/201705/21 Morbid obesity due to excess calories 03/31/2016 07/04/2016 Type 2 diabetes mellitus wit h diabetic neuropathy, without long-term current use of insulin 01/08/2016 07/04/2016 documented as of this encounter (statuses as of 09/16/2022) [facility] History of Past illness Narrative* Problem Noted Date Resolved Date Shoulder injury 02/10/2018 05/30/2020 Impingement syndrome of left shoulder 10/23/2017 05/30/2020 Acute pain of left shoulder 10/22/201705/21 Morbid obesity due to excess calories 03/31/2016 07/04/2016 Type 2 diabetes mellitus wit h diabetic neuropathy, without long-term current use of insulin 01/08/2016 07/04/2016 documented as of this encounter (statuses as of 09/18/2022) [facility] History of Past illness Narrative* Problem Noted Date Resolved Date Shoulder injury 02/10/2018 05/30/2020 Impingement syndrome of left shoulder 10/23/2017 05/30/2020 Acute pain of left shoulder 10/22/201705/21 Morbid obesity due to excess calories 03/31/2016 07/04/2016 Type 2 diabetes mellitus wit h diabetic neuropathy, without long-term current use of insulin 01/08/2016 07/04/2016 documented as of this encounter (statuses as of 09/19/2022) [facility] History of Past illness Narrative* Problem Noted Date Resolved Date Shoulder injury 02/10/2018 05/30/2020 Impingement syndrome of left shoulder 10/23/2017 05/30/2020 Acute pain of left shoulder 10/22/201705/21 Morbid obesity due to excess calories 03/31/2016 07/04/2016 Type 2 diabetes mellitus wit h diabetic neuropathy, without long-term current use of insulin 01/08/2016 07/04/2016 documented as of this encounter (statuses as of 09/25/2022) [facility] History of Past illness Narrative* Problem Noted Date Resolved Date Shoulder injury 02/10/2018 05/30/2020 Impingement syndrome of left shoulder 10/23/2017 05/30/2020 Acute pain of left shoulder 10/22/201705/21 Morbid obesity due to excess calories 03/31/2016 07/04/2016 Type 2 diabetes mellitus wit h diabetic neuropathy, without long-term current use of insulin 01/08/2016 07/04/2016 documented as of this encounter (statuses as of 09/26/2022) [facility] History of Past illness Narrative* Problem Noted Date Diagnosed Date Resolved Date Shoulder injury 02/10/2018 05/30/2020 Impingement syndrome of left shoulder 10/23/2017 05/30/2020 Acute pain of left shoulder 10/22/2017 05/30/2020 Morbid obesity due to excess calories 03/31/2016 07/04/2016 Type 2 diabetes mellitus wit h diabetic neuropathy, without long-term current use of insulin 01/08/2016 07/04/2016 documented as of this encounter (statuses as of 09/30/2022) [facility] History of Past illness Narrative* Problem Noted Date Diagnosed Date Resolved Date Shoulder injury 02/10/2018 05/30/2020 Impingement syndrome of left shoulder 10/23/2017 05/30/2020 Acute pain of left shoulder 10/22/2017 05/30/2020 Morbid obesity due to excess calories 03/31/2016 07/04/2016 Type 2 diabetes mellitus wit h diabetic neuropathy, without long-term current use of insulin 01/08/2016 07/04/2016 documented as of this encounter (statuses as of 10/16/2022) [facility] History of Past illness Narrative* Problem Noted Date Diagnosed Date Resolved Date Shoulder injury 02/10/2018 05/30/2020 Impingement syndrome of left shoulder 10/23/2017 05/30/2020 Acute pain of left shoulder 10/22/2017 05/30/2020 Morbid obesity due to excess calories 03/31/2016 07/04/2016 Type 2 diabetes mellitus wit h diabetic neuropathy, without long-term current use of insulin 01/08/2016 07/04/2016 documented as of this encounter (statuses as of 10/23/2022) [facility] History of Past illness Narrative* Problem Noted Date Diagnosed Date Resolved Date Shoulder injury 02/10/2018 05/30/2020 Impingement syndrome of left shoulder 10/23/2017 05/30/2020 Acute pain of left shoulder 10/22/2017 05/30/2020 Morbid obesity due to excess calories 03/31/2016 07/04/2016 Type 2 diabetes mellitus wit h diabetic neuropathy, without long-term current use of insulin 01/08/2016 07/04/2016 documented as of this encounter (statuses as of 10/27/2022) [facility] History of Past illness Narrative* Problem Noted Date Diagnosed Date Resolved Date Shoulder injury 02/10/2018 05/30/2020 Impingement syndrome of left shoulder 10/23/2017 05/30/2020 Acute pain of left shoulder 10/22/2017 05/30/2020 Morbid obesity due to excess calories 03/31/2016 07/04/2016 Type 2 diabetes mellitus wit h diabetic neuropathy, without long-term current use of insulin 01/08/2016 07/04/2016 documented as of this encounter (statuses as of 10/30/2022) [facility] History of Past illness Narrative* Problem Noted Date Diagnosed Date Resolved Date Shoulder injury 02/10/2018 05/30/2020 Impingement syndrome of left shoulder 10/23/2017 05/30/2020 Acute pain of left shoulder 10/22/2017 05/30/2020 Morbid obesity due to excess calories 03/31/2016 07/04/2016 Type 2 diabetes mellitus wit h diabetic neuropathy, without long-term current use of insulin 01/08/2016 07/04/2016 documented as of this encounter (statuses as of 11/05/2022) [facility] History of Past illness Narrative* Problem Noted Date Diagnosed Date Resolved Date Shoulder injury 02/10/2018 05/30/2020 Impingement syndrome of left shoulder 10/23/2017 05/30/2020 Acute pain of left shoulder 10/22/2017 05/30/2020 Morbid obesity due to excess calories 03/31/2016 07/04/2016 Type 2 diabetes mellitus wit h diabetic neuropathy, without long-term current use of insulin 01/08/2016 07/04/2016 documented as of this encounter (statuses as of 11/08/2022) [facility] History of Past illness Narrative* Problem Noted Date Diagnosed Date Resolved Date Shoulder injury 02/10/2018 05/30/2020 Impingement syndrome of left shoulder 10/23/2017 05/30/2020 Acute pain of left shoulder 10/22/2017 05/30/2020 Morbid obesity due to excess calories 03/31/2016 07/04/2016 Type 2 diabetes mellitus wit h diabetic neuropathy, without long-term current use of insulin 01/08/2016 07/04/2016 documented as of this encounter (statuses as of 11/19/2022) [facility] History of Past illness Narrative* Problem Noted Date Diagnosed Date Resolved Date Shoulder injury 02/10/2018 05/30/2020 Impingement syndrome of left shoulder 10/23/2017 05/30/2020 Acute pain of left shoulder 10/22/2017 05/30/2020 Morbid obesity due to excess calories 03/31/2016 07/04/2016 Type 2 diabetes mellitus wit h diabetic neuropathy, without long-term current use of insulin 01/08/2016 07/04/2016 documented as of this encounter (statuses as of 11/19/2022) [facility] History of Past illness Narrative* Problem Noted Date Diagnosed Date Resolved Date Shoulder injury 02/10/2018 05/30/2020 Impingement syndrome of left shoulder 10/23/2017 05/30/2020 Acute pain of left shoulder 10/22/2017 05/30/2020 Morbid obesity due to excess calories 03/31/2016 07/04/2016 Type 2 diabetes mellitus wit h diabetic neuropathy, without long-term current use of insulin 01/08/2016 07/04/2016 documented as of this encounter (statuses as of 11/21/2022) [facility] History of Past illness Narrative* Problem Noted Date Diagnosed Date Resolved Date Shoulder injury 02/10/2018 05/30/2020 Impingement syndrome of left shoulder 10/23/2017 05/30/2020 Acute pain of left shoulder 10/22/2017 05/30/2020 Morbid obesity due to excess calories 03/31/2016 07/04/2016 Type 2 diabetes mellitus wit h diabetic neuropathy, without long-term current use of insulin 01/08/2016 07/04/2016 documented as of this encounter (statuses as of 11/27/2022) [facility] History of Past illness Narrative* Problem Noted Date Diagnosed Date Resolved Date Shoulder injury 02/10/2018 05/30/2020 Impingement syndrome of left shoulder 10/23/2017 05/30/2020 Acute pain of left shoulder 10/22/2017 05/30/2020 Morbid obesity due to excess calories 03/31/2016 07/04/2016 Type 2 diabetes mellitus wit h diabetic neuropathy, without long-term current use of insulin 01/08/2016 07/04/2016 documented as of this encounter (statuses as of 11/27/2022) [facility] History of Past illness Narrative* Problem Noted Date Diagnosed Date Resolved Date Shoulder injury 02/10/2018 05/30/2020 Impingement syndrome of left shoulder 10/23/2017 05/30/2020 Acute pain of left shoulder 10/22/2017 05/30/2020 Morbid obesity due to excess calories 03/31/2016 07/04/2016 Type 2 diabetes mellitus wit h diabetic neuropathy, without long-term current use of insulin 01/08/2016 07/04/2016 documented as of this encounter (statuses as of 12/02/2022) [facility] History of Past illness Narrative* Problem Noted Date Diagnosed Date Resolved Date Shoulder injury 02/10/2018 05/30/2020 Impingement syndrome of left shoulder 10/23/2017 05/30/2020 Acute pain of left shoulder 10/22/2017 05/30/2020 Morbid obesity due to excess calories 03/31/2016 07/04/2016 Type 2 diabetes mellitus wit h diabetic neuropathy, without long-term current use of insulin 01/08/2016 07/04/2016 documented as of this encounter (statuses as of 12/02/2022) [facility] Sachin Walton [facility] Note Date/Time August 29, 2024 12:16 pm [facility] Medical Records Department [address] [place] [address] Emergency Department Summary 08/29/24 MR#: [id number] Acct: [id number] Name: INÉS SHANKS Rep #:[id number] : 1965 58 From: Sachin Barber ggett DO PCP: Dr. Santhosh Holden MD Status:REG E R Location: ED HPI HPI - Fall History of Present Illness Chief Complaint: Fall Narrative Narrative: Chief complaint and HPI: Close head injury after mechanical fall. 66-year-old female with past medical history of DM2, DJD, memory issues presents for evaluation of closed head injury after mechanical fall. History taken by daughter as well as patient. Patient states she had just gotten up and was making breakfast for her granddaughter when she lost her balance and fell. Daughter states that she heard the fall. States she was unconscious for several seconds. She hit the back of her head on the dining room table pillar. Denies blood thinners. States she is supposed to use her walker at baseline but was not using it. Denies any fever, chills, shortness of breath, chest pain abdominal pain, nausea, vomiting, dysuria. Denies any numbness or tingling. Denies any back pain or extremity pain. Not up-to-date on tetanus. Review of systems: See HPI Medications: As listed on the chart Allergies: As listed on the chart PFSH: Per chart Vital signs: As listed on the chart. Reviewed. Physical exam: Gen: A&O x3, NAD Head: Normocephalic, 2 cm laceration to the posterior scalp Eyes: No sclera icterus, conjunctiva clear, PERRL, EOMI ENT: TMs clear BL, moist mucous membranes, no swelling/lacerations/blood in the mouth or the nares, No nasal septal hematoma, mild facial tenderness over the left zygomatic arch-no obvious signs of trauma Neck: Trachea midline, No JVD, no midline spinal tenderness, mild tenderness to palpation of the right paraspinal musculature CV: RRR, no murmurs, no chest wall TTP Resp: Lungs CTA BL, no w/r/c GI: Abd soft, non-distended, non-tender, no r/r/g Musc: Full ROM, no deformity, no spinal TTP, no molly step-offs Skin: Warm, dry, intact Neuro: Alert, oriented, grossly intact, sensation intact, GCS 15 Psych: Cooperative, appropriate mood and affect [facility] Medical History Powers's esophagus Diabetes DJD (degenerative joint disease) Dyslipidemia GERD (gastroesophageal reflux disease) Heart disease HTN (hypertension) Morbid obesity Home Medications ?Medication ?Instructions ?Recorded ?Last Taken ?Type bupropion HCl 200 mg tablet,12 hr 200 mg PO BID depres brielle/anxiety 08/23/15 08/28/24 History sustained-release (Wellbutrin SR) gabapentin 600 mg tablet 600 mg PO TIDCM nerve pain 0 08/23/15 08/28/24 History pantoprazole 40 mg tablet,delayed 80 mg PO DAILY acid reflux 08/23/15 08/28/24 History release thyroid (pork) 60 mg tablet 60 mg PO BID thyroid 08/2208/28/24 History ([place] Thyroid) nitroglycerin 0.4 mg sublingual 0.4 mg sublingual Q5M PRN Chest 01/01/17 10/31/17 Rx tablet Pain #30 tabs lisinopril 5 mg tablet 5 mg PO DAILY 10/31/1708/28 History tizanidine 4 mg capsule (Zanaflex) 4 mg PO PRN PRN Mus heidi Spasm 10/31/17 Unknown History carbidopa 25 mg-levodopa 100 mg 1 tab PO TID 08/29/24 08/28/24 History tablet cetirizine 10 mg tablet 10 mg PO DAILY 08/29/2411/14 History clonazepam 1 mg tablet 1 mg PO TID PRN 08/29/2411/14 History fenofibrate 54 mg tablet 54 mg PO DAILY 08/29/2411/14 History ferrous sulfate 325 mg (65 mg 325 mg PO BID 08/29/24 0 08/28/24 History iron) tablet (FeroSul) gabapentin 300 mg capsule 300 mg PO TID 08/29/2408/28 History lamotrigine 200 mg disintegrating 400 mg PO QHS 08/28/24 History tablet metformin 500 mg tablet,extended 1,500 mg PO DAILY 12/1508/28/24 History release 24 hr metoprolol succinate 25 mg 25 mg PO DAILY 08/29/2411/14 History tablet,extended release 24 hr ondansetron HCl 4 mg tablet 4 mg PO DAILY PRN nausea a nd 08/29/24 Unknown History vomiting prochlorperazine maleate 10 mg 10 mg PO BID PRN PRN mi graine 08/29/24 Unknown History tablet rosuvastatin 5 mg tablet 5 mg PO QHS 08/29/24 5 History semaglutide 0.25 mg or 0.5 mg (2 0.5 mg subcut QWEEK 0 08/29/24 08/28/24 History mg/3 mL) subcutaneous pen injector (Ozempic) topiramate 50 mg tablet 50 mg PO BID 08/29/24 History vortioxetine 20 mg tablet 20 mg PO DAILY 08/29/2411/14 History (Trintellix) Allergy/AdvReac Type Severity Reaction Status Date / Time animal dander Allergy difficulty Verified 08/29/24 09:19 breathing citric acid AdvReac mouth sores Verified 08/29/24 09:19 mold AdvReac Nausea Verified 08/29/24 09:19 zolpidem (From Ambien) AdvReac SLEEP Verified 08/29/24 09:19 WALKING Social History Smoking Status: Former smoker EXAM Physical Exam Const Vital Signs: 08/29/24 09:19 08/29/24 10:09 08/29/24 10:19 Temperature 98.3 F Temperature Source Oral Pulse Rate 70 69 Respiratory Rate 16 14 Respiratory Effort Normal Non-Labored Respiratory Depth Normal Respiratory Pattern Normal Blood Pressure 134/85 H Blood Pressure Mean 101 Pulse Ox 100 100 Oxygen Delivery Method Room Air Room Air Room Air 08/29/24 11:19 08/29/24 12:00 08/29/24 12:07 Temperature 98.3 F Temperature Source Pulse Rate 73 73 73 Respiratory Rate 16 16 16 Respiratory Effort Respiratory Depth Respiratory Pattern Blood Pressure 134/85 H Blood Pressure Mean 101 Pulse Ox 100 100 100 Oxygen Delivery Method Room Air Room Air MDM MDM MDM Narrative Medical decision making narrative: 66-year-old female with past medical history of DM2, DJD, memory issues presentsfor evaluation of closed head injury after mechanical fall. Patient lost her balance and fell. Hit her head on the dining room table pillar. Positive LOC. No anticoagulation. Supposed to ambulate with walker but was not using it. Currently denies any symptoms other than headache. Has small laceration to the posterior scalp. Not up-to-date on tetanus. Differential diagnosis includes but is not limited to scalp laceration, contusion, intracranial bleed, skull fracture, facial fracture, facial contusion, neck strain, cervical fracture. CThead, neck, or face ordered. Tylenol given for pain. Laceration will need repaired with sutures. Patient consented to having tetanus updated. Given thiswas purely mechanical fall I do not think any laboratory workup is needed at this time. Patient family in agreement. Patient tolerated laceration repair well. [address] of the brain, cervical spine, face showed no acute traumatic injury. Patient will be ambulated. Patient ambulated while in emergency department. Patient stable to discharge home. Given education on signs of concussion. Follow-up with PCP. They confirmed understand the plan. Laceration Repair Indication: Laceration Location: 2 cm scalp laceration Consent: Risks, benefits, and alternatives discussed with patient and consent obtained Procedure: The area was prepped and draped in the usual sterile fashion. Local anesthesia was achieved using 1% Lidocaine with epinephrine. The wound was copiously irrigated and cleaned. 7 jonathan were placed. The estimated blood loss was minimal. The patient tolerated the procedure well without complications. Foreign Material: None Debridement: None Impression: 1. Closed head injury 2. Scalp laceration, repaired with jonathan 3. Mechanical fall Radiography Diagnostic Testing: Clinical Impression(s) from Imaging Studies Brain CT 08/29/24 09:45 IMPRESSION: No acute process. Age-related involution and chronic small-vessel ischemic changes . Reading Location: [facility] Cervical Spine CT 08/29/24 09:45 IMPRESSION: DEGENERATIVE CHANGES OF THE CERVICAL SPINE. NO EVIDENCE OF SIGNIFICANT OSSEOUS CENTRAL CANAL OR NEURAL FORAMINAL STENOSIS. Reading Location: [facility] Facial/Sinus 08/29/24 09:45 IMPRESSION: No acute abnormality is seen. Reading Location: [facility] Discharge Plan Triage Chief Complaint: Fall ED Provider: Sachin Walton Dx/Rx/DC Orders Clinical Impression: Closed head injury, Accident due to mechanical fall without injury Instructions: ED Head Injury (Adult), ED Laceration Scalp Stitches or Jonathan, ED Fall Prevention Prescriptions: No Action gabapentin 600 MG tablet 600 mg PO TIDCM Rx Instructions: with 300mg for total daily dose of 900mg pantoprazole 40 MG tablet 80 mg PO DAILY bupropion HCl [Wellbutrin SR] 200 MG tablet 200 mg PO BID thyroid (pork) [[place] Thyroid] 60 MG tablet 60 mg PO BID nitroglycerin 0.4 MG tablet 0.4 mg sublingual Q5M PRN (Reason: Chest Pain) Qty: 30 0RF lisinopril 5 MG tablet 5 mg PO DAILY Patient Comments: tizanidine [Zanaflex] 4 MG capsule 4 mg PO PRN PRN (Reason: Muscle Spasm) cetirizine 10 mg tablet 10 mg PO DAILY clonazepam 1 mg tablet 1 mg PO TID PRN carbidopa-levodopa 25-100 mg tablet 1 tab PO TID ferrous sulfate [FeroSul] 325 mg (65 mg iron) tablet 325 mg PO BID gabapentin 300 mg capsule 300 mg PO TID Rx Instructions: with 600mg for total daily dose of 900mg metoprolol succinate 25 mg tablet extended release 24 hr 25 mg PO DAILY metformin 500 mg tablet extended release 24 hr 1,500 mg PO DAILY rosuvastatin 5 mg tablet 5 mg PO QHS topiramate 50 mg tablet 50 mg PO BID fenofibrate 54 mg tablet 54 mg PO DAILY lamotrigine 200 mg tablet,disintegrating 400 mg PO QHS Trintellix 20 mg tablet 20 mg PO DAILY Ozempic 0.25 mg or 0.5 mg (2 mg/3 mL) pen injector 0.5 mg subcut QWEEK ondansetron HCl 4 mg tablet 4 mg PO DAILY PRN (Reason: nausea and vomiting) prochlorperazine maleate 10 mg tablet 10 mg PO BID PRN PRN (Reason: migraine) Primary Care Provider: Santhosh Holden Referrals: Santhosh Holden MD [Primary Care Provider] - 3-5 Days Activity Restrictions/Additional Instructions: You received Tylenol here in the emergency department. No Tylenol for 6 hours. Follow-up with primary care physician. Recommend using your walker. Monitor for signs of concussion which we talked about. Return back to the ED if symptoms change or worsen. Jonathan need to come out in 7 to 10 days Print Language: Georgian Disposition Disposition: Home, Self Care What to do if you have Problems For any increased pain, shortness of breath, bleeding, nausea or vomiting, chestpain, or any unexpected problems, contact your Primary Care Provider. Call [facility] ([phone]) or report to the closest Emergency Room. Call 911 if necessary. 08/29/24 1216 <Electronically signed by Sachin Walton DO> Cosigner Signature (if applicable): CC: Dr. Santhosh Holden MD ~ Signed [facility] Work Phone: Evaluation note* Diagnosis Iron deficiency anemia, unspecified iron deficiency anemia type [facility] Diagnosis Sinobronchitis- Primary Unspecified sinusitis (chronic) [facility]* Diagnosis Ulcer of toe of left foot, limited to breakdown of skin (HCC)- Primary Other diabetic neurological complication associated with type 2 diabetes mellitus (HCC) Diminished pulses in lower extremity Other symptoms involving cardiovascular system Onychomycosis Dermatophytosis of nail [facility] Diagnosis Microalbuminuria Proteinuria [facility]* Diagnosis Pain Generalized pain [facility]* Diagnosis Primary hypertension- Primary Unspecified essential hypertension Hypothyroidism, unspecified type [facility] Diagnosis Ulcer of toe of left foot, limited to breakdown of skin (HCC)- Primary Other diabetic neurological complication associated with type 2 diabetes mellitus (HCC) [facility]* Diagnosis Type 2 diabetes mellitus without complication, unspecified whether extermination inspector insulin use (HCC)- Primary Primary hypertension Unspecified essential hypertension Hypothyroidism, unspecified type Microalbuminuria Proteinuria Essential hypertension Unspecified essential hypertension Other hyperlipidemia Iron deficiency anemia, unspecified iron deficiency anemia type Depression, unspecified depression type KRZYSZTOF (obstructive sleep apnea) Obstructive sleep apnea (adult) (pediatric) [facility]* Diagnosis Elevated TSH- Primary Nonspecific abnormal results of thyroid function study Hypothyroidism, unspecified type Other hyperlipidemia [facility]* Diagnosis Microalbuminuria Proteinuria [facility]* Diagnosis Fibromyalgia Mylagia and myositis, unspecified [facility]* Diagnosis Other diabetic neurological complication associated with type 2 diabetes mellitus (HCC) Hammertoe of left foot [facility]* Diagnosis Other diabetic neurological complication associated with type 2 diabetes mellitus (HCC)- Primary Hammertoe of left foot Ulcer of toe of left foot, limited to breakdown of skin (HCC) [facility]* Diagnosis Hammertoe of left foot- Primary Hammer toe of left foot [facility]* Diagnosis Post-operative state- Primary Other postprocedural status [facility]* Diagnosis Post-operative state- Primary Other postprocedural status Hammertoe of left foot [facility]* Diagnosis Post-operative state- Primary Other postprocedural status Hammertoe of right foot [facility]* Diagnosis Microalbuminuria Proteinuria [facility]* Diagnosis Hypothyroidism, unspecified type [facility]* Diagnosis Hypothyroidism, unspecified type- Primary Type 2 diabetes mellitus with diabetic neuropathy, without long-term current use of insulin (HCC) [facility]* Diagnosis Hammertoe of right foot- Primary [facility]* Diagnosis Hypothyroidism, unspecified type [facility]* Diagnosis Type 2 diabetes mellitus with diabetic neuropathy, without long-term current use of insulin (HCC)- Primary [facility]* Diagnosis Fibromyalgia Mylagia and myositis, unspecified [facility]* Diagnosis Primary hypertension- Primary Unspecified essential hypertension Encounter for immunization Need for other specified prophylactic vaccination against single bacterial disease Screening for diabetic retinopathy Screening for other eye conditions Type 2 diabetes mellitus with diabetic neuropathy, without long-term current use of insulin (HCC) Bipolar 1 disorder (HCC) Bipolar I disorder, most recent episode (or current) unspecified Non-pressure chronic ulcer of other part of unspecified foot with unspecified severity (HCC) Degenerative disease of nervous system, unspecified (HCC) Neuropathy Mononeuritis of unspecified site 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 Mild CAD Other hyperlipidemia Essential tremor Essential and other specified forms of tremor KRZYSZTOF (obstructive sleep apnea) Obstructive sleep apnea (adult) (pediatric) 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 Liver fibrosis 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 of alcohol DDD (degenerative disc disease), lumbar Degeneration of lumbar or lumbosacral intervertebral disc Anxiety neurosis Anxiety state, unspecified H/O gastric bypass Bariatric surgery status Ataxia Lack of coordination Fall, subsequent encounter Screening for colon cancer Special screening for malignant neoplasms, colon Finger pain, right Pain in limb Hypothyroidism, unspecified type Screening breast examination Breast screening, unspecified Need for vaccination Need for prophylactic vaccination and inoculation against unspecified single disease [facility]* Diagnosis Type 2 diabetes mellitus with diabetic neuropathy, without long-term current use of insulin (HCC) documented [facility]* Diagnosis Type 2 diabetes mellitus without retinopathy (HCC)- Primary Type II or unspecified type diabetes mellitus without mention of complication, not stated as uncontrolled Dry eye syndrome of bilateral lacrimal glands Tear film insufficiency, unspecified Combined forms of age-related cataract of both eyes Other and combined forms of senile cataract Presbyopia documented in this encounter [facility] note* Diagnosis Mixed hyperlipidemia- Primary [facility]* Diagnosis Abnormal posture- Primary documented in this encounter [facility] note* Diagnosis Iron deficiency anemia, unspecified iron deficiency anemia type documented in this encounter [facility] note* Diagnosis DDD (degenerative disc disease), cervical Degeneration of cervical intervertebral disc Acute pain of left shoulder documented in this encounter [facility] note* Diagnosis Hypothyroidism, unspecified type documented in this encounter [facility] note* Diagnosis Microalbuminuria Proteinuria documented in this encounter [facility] note* Diagnosis Type 2 diabetes mellitus with diabetic neuropathy, without long-term current use of insulin (HCC) [facility]* Diagnosis DDD (degenerative disc disease), cervical Degeneration of cervical intervertebral disc Acute pain of left shoulder documented in this encounter [facility] note* Diagnosis Post-op pain Other acute postoperative pain [facility]* Diagnosis Iron deficiency anemia, unspecified iron deficiency anemia type documented in this encounter [facility] note* Diagnosis Pain- Primary Generalized pain documented in this encounter [facility] note* Diagnosis Closed displaced fracture of phalanx of lesser toe of right foot, unspecified phalanx, initial encounter- Primary Hammertoe of right foot documented in this encounter [facility] note* Diagnosis Hypothyroidism, unspecified type DDD (degenerative disc disease), cervical Degeneration of cervical intervertebral disc Acute pain of left shoulder Iron deficiency anemia, unspecified iron deficiency anemia type documented in this encounter [facility] noteNo assessment [facility] Work Phone: Evaluation note* Diagnosis Loss of balance- Primary Other symptoms involving nervous and musculoskeletal systems Multiple falls Personal history of fall [facility]* Diagnosis Microalbuminuria Proteinuria documented in this encounter [facility] note* Diagnosis Tremor- Primary Abnormal involuntary movements Migraine without aura, intractable, with status migrainosus Migraine without aura, with intractable migraine, so stated, with status migrainosus [facility]* Diagnosis Fibromyalgia Mylagia and myositis, unspecified [facility]* Diagnosis Hammertoe of right foot- Primary Other diabetic neurological complication associated with type 2 diabetes mellitus (HCC) [facility]* Diagnosis Type 2 diabetes mellitus without retinopathy (HCC) Type II or unspecified type diabetes mellitus without mention of complication, not stated as uncontrolled [facility]* Diagnosis Type 2 diabetes mellitus with diabetic neuropathy, without long-term current use of insulin (HCC) Iron deficiency anemia, unspecified iron deficiency anemia type [facility]* Diagnosis Dry eye syndrome of bilateral lacrimal glands- Primary Tear film insufficiency, unspecified Type 2 diabetes mellitus without retinopathy (HCC) Type II or unspecified type diabetes mellitus without mention of complication, not stated as uncontrolled Combined forms of age-related cataract of both eyes Other and combined forms of senile cataract Presbyopia [facility]* Diagnosis Type 2 diabetes mellitus with diabetic neuropathy, without long-term current use of insulin (HCC)- Primary [facility]* Diagnosis Tremor- Primary Abnormal involuntary movements Encounter for immunization Need for other specified prophylactic vaccination against single bacterial disease Degenerative disease of nervous system, unspecified (HCC) Neuropathy Mononeuritis of unspecified site Fibromyalgia Mylagia and myositis, unspecified Chronic nonintractable headache, unspecified headache type 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 Primary hypertension Unspecified essential hypertension Other hyperlipidemia KRZYSZTOF (obstructive sleep apnea) Obstructive sleep apnea (adult) (pediatric) 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 Liver fibrosis 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 of alcohol Type 2 diabetes mellitus with diabetic neuropathy, without long-term current use of insulin (HCC) Hypothyroidism, unspecified type H/O gastric bypass Bariatric surgery status Gait instability Abnormality of gait History of colonic polyps Personal history of colonic polyps Coronary artery disease involving [place] heart without angina pectoris, unspecified vessel or lesion type Memory loss Screening for HIV (human immunodeficiency virus) Special screening examination for other specified viral diseases [facility]* Diagnosis 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 History of colonic polyps Personal history of colonic polyps [facility]* Diagnosis Pain Generalized pain [facility]* Diagnosis Screening breast examination Breast screening, unspecified [facility]* Diagnosis Microalbuminuria Proteinuria [facility]* Diagnosis 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 Mild CAD Primary hypertension Unspecified essential hypertension Mixed hyperlipidemia KRZYSZTOF (obstructive sleep apnea) Obstructive sleep apnea (adult) (pediatric) [facility] Diagnosis Type 2 diabetes mellitus with diabetic neuropathy, without long-term current use of insulin (HCC) [facility] Diagnosis Type 2 diabetes mellitus with diabetic neuropathy, without long-term current use of insulin (HCC) [facility] Diagnosis Post-op pain Other acute postoperative pain [facility] Diagnosis Hypothyroidism, unspecified type [facility] Diagnosis Microalbuminuria Proteinuria [facility] Diagnosis Tremor Abnormal involuntary movements [facility] Diagnosis Mild CAD- Primary SOB (shortness of breath) Shortness of breath Primary hypertension Unspecified essential hypertension Other hyperlipidemia [facility] Diagnosis Powers's esophagus with dysplasia- Primary Powers's esophagus [facility]* Diagnosis Sciatica, unspecified laterality- Primary [facility]* Diagnosis Fibromyalgia Mylagia and myositis, unspecified [facility]* Diagnosis Type 2 diabetes mellitus without retinopathy (HCC)- Primary Type II or unspecified type diabetes mellitus without mention of complication, not stated as uncontrolled Combined forms of age-related cataract of both eyes Other and combined forms of senile cataract Dry eye syndrome of bilateral lacrimal glands Tear film insufficiency, unspecified Presbyopia [facility] Diagnosis Acute cough- Primary Rhinosinusitis Unspecified sinusitis (chronic) [facility]* Diagnosis Tremor Abnormal involuntary movements [facility]* Diagnosis KRZYSZTOF (obstructive sleep apnea)- Primary Obstructive sleep apnea (adult) (pediatric) [facility]* Diagnosis Tremor- Primary Abnormal involuntary movements Migraine without aura, intractable, with status migrainosus Migraine without aura, with intractable migraine, so stated, with status migrainosus [facility] Diagnosis Tremor Abnormal involuntary movements [facility] Diagnosis Type 2 diabetes mellitus with diabetic neuropathy, without long-term current use of insulin (HCC)- Primary [facility]* Diagnosis Microalbuminuria Proteinuria [facility]* Diagnosis Sciatica, unspecified laterality [facility] Diagnosis Type 2 diabetes mellitus with diabetic neuropathy, without long-term current use of insulin (HCC) [facility]* Diagnosis Type 2 diabetes mellitus with diabetic neuropathy, without long-term current use of insulin (HCC) [facility]* Diagnosis Other specified hearing loss, unspecified ear- Primary [facility]* Diagnosis Hypothyroidism, unspecified type [facility]* Diagnosis Preoperative examination- Primary Preoperative examination, unspecified Acute pain of left shoulder Hypertension, unspecified type Other hyperlipidemia Type 2 diabetes mellitus with diabetic neuropathy, without long-term current use of insulin (HCC) Hypothyroidism, unspecified type Essential tremor Essential and other specified forms of tremor 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 Liver fibrosis 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 of alcohol Preoperative examination- Primary Preoperative examination, unspecified Cystocele, midline Uterovaginal prolapse Uterovaginal prolapse, unspecified Mixed incontinence Mixed incontinence urge and stress (male)(female) Rectocele Uterine prolapse Uterine prolapse without mention of vaginal wall prolapse Mixed stress and urge urinary incontinence Mixed incontinence urge and stress (male)(female) Urinary urgency Urgency of urination Urinary frequency Constipation due to outlet dysfunction Essential tremor Essential and other specified forms of tremor [id number] (obstructive sleep apnea) Obstructive sleep apnea (adult) (pediatric) Essential hypertension Unspecified essential hypertension Mild CAD Gastroesophageal reflux disease without esophagitis Esophageal reflux H/O gastric bypass Bariatric surgery status Liver fibrosis 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 of alcohol Class 2 obesity due to excess calories with body mass index (BMI) of 35.0 to 35.9 in adult, unspecified whether serious comorbidity present Type 2 diabetes mellitus with diabetic neuropathy, without long-term current use of insulin (HCC) Hypothyroidism, unspecified type Bipolar 1 disorder (HCC) Bipolar I disorder, most recent episode (or current) unspecified Fibromyalgia Mylagia and myositis, unspecified Pre-operative examination- Primary Preoperative examination, unspecified Colon cancer screening Special screening for malignant neoplasms, colon 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 H/O gastric bypass Bariatric surgery status 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 Essential tremor Essential and other specified forms of tremor Fibromyalgia Mylagia and myositis, unspecified Chronic nonintractable headache, unspecified headache type Neuropathy Mononeuritis of unspecified site Primary hypertension Unspecified essential hypertension Other hyperlipidemia [id number] (obstructive sleep apnea) Obstructive sleep apnea (adult) (pediatric) Liver fibrosis 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 of alcohol Type 2 diabetes mellitus with diabetic neuropathy, without long-term current use of insulin (HCC) Hypothyroidism, unspecified type Bipolar 1 disorder (HCC) Bipolar I disorder, most recent episode (or current) unspecified Former smoker Personal history of tobacco use, presenting hazards to health Class 2 obesity due to excess calories with body mass index (BMI) of 35.0 to 35.9 in adult, unspecified whether serious comorbidity present Non-melanoma skin cancer Unspecified malignant neoplasm of skin, site unspecified Pre-operative examination- Primary Preoperative examination, unspecified 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 Bipolar 1 disorder (HCC) Bipolar I disorder, most recent episode (or current) unspecified Chronic nonintractable headache, unspecified headache type 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 Type 2 diabetes mellitus with diabetic neuropathy, without long-term current use of insulin (HCC) Essential tremor Essential and other specified forms of tremor Fibromyalgia Mylagia and myositis, unspecified Former smoker Personal history of tobacco use, presenting hazards to health H/O gastric bypass Bariatric surgery status Primary hypertension Unspecified essential hypertension Other hyperlipidemia Hypothyroidism, unspecified type Liver fibrosis 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 of alcohol Neuropathy Mononeuritis of unspecified site Non-melanoma skin cancer Unspecified malignant neoplasm of skin, site unspecified [id number] (obstructive sleep apnea) Obstructive sleep apnea (adult) (pediatric) Class 2 obesity due to excess calories with body mass index (BMI) of 35.0 to 35.9 in adult, unspecified whether serious comorbidity present Fibromyalgia Mylagia and myositis, unspecified Sciatica, unspecified laterality [facility] Preoperative examination- Primary Preoperative examination, unspecified Acute pain of left shoulder Hypertension, unspecified type Other hyperlipidemia Type 2 diabetes mellitus with diabetic neuropathy, without long-term current use of insulin (HCC) Hypothyroidism, unspecified type Essential tremor Essential and other specified forms of tremor 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 Liver fibrosis 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 of alcohol Preoperative examination- Primary Preoperative examination, unspecified Cystocele, midline Uterovaginal prolapse Uterovaginal prolapse, unspecified Mixed incontinence Mixed incontinence urge and stress (male)(female) Rectocele Uterine prolapse Uterine prolapse without mention of vaginal wall prolapse Mixed stress and urge urinary incontinence Mixed incontinence urge and stress (male)(female) Urinary urgency Urgency of urination Urinary frequency Constipation due to outlet dysfunction Essential tremor Essential and other specified forms of tremor [id number] (obstructive sleep apnea) Obstructive sleep apnea (adult) (pediatric) Essential hypertension Unspecified essential hypertension Mild CAD Gastroesophageal reflux disease without esophagitis Esophageal reflux H/O gastric bypass Bariatric surgery status Liver fibrosis 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 of alcohol Class 2 obesity due to excess calories with body mass index (BMI) of 35.0 to 35.9 in adult, unspecified whether serious comorbidity present Type 2 diabetes mellitus with diabetic neuropathy, without long-term current use of insulin (HCC) Hypothyroidism, unspecified type Bipolar 1 disorder (HCC) Bipolar I disorder, most recent episode (or current) unspecified Fibromyalgia Mylagia and myositis, unspecified Pre-operative examination- Primary Preoperative examination, unspecified Colon cancer screening Special screening for malignant neoplasms, colon 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 H/O gastric bypass Bariatric surgery status 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 Essential tremor Essential and other specified forms of tremor Fibromyalgia Mylagia and myositis, unspecified Chronic nonintractable headache, unspecified headache type Neuropathy Mononeuritis of unspecified site Primary hypertension Unspecified essential hypertension Other hyperlipidemia [id number] (obstructive sleep apnea) Obstructive sleep apnea (adult) (pediatric) Liver fibrosis 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 of alcohol Type 2 diabetes mellitus with diabetic neuropathy, without long-term current use of insulin (HCC) Hypothyroidism, unspecified type Bipolar 1 disorder (HCC) Bipolar I disorder, most recent episode (or current) unspecified Former smoker Personal history of tobacco use, presenting hazards to health Class 2 obesity due to excess calories with body mass index (BMI) of 35.0 to 35.9 in adult, unspecified whether serious comorbidity present Non-melanoma skin cancer Unspecified malignant neoplasm of skin, site unspecified Pre-operative examination- Primary Preoperative examination, unspecified 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 Bipolar 1 disorder (HCC) Bipolar I disorder, most recent episode (or current) unspecified Chronic nonintractable headache, unspecified headache type 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 Type 2 diabetes mellitus with diabetic neuropathy, without long-term current use of insulin (HCC) Essential tremor Essential and other specified forms of tremor Fibromyalgia Mylagia and myositis, unspecified Former smoker Personal history of tobacco use, presenting hazards to health H/O gastric bypass Bariatric surgery status Primary hypertension Unspecified essential hypertension Other hyperlipidemia Hypothyroidism, unspecified type Liver fibrosis 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 of alcohol Neuropathy Mononeuritis of unspecified site Non-melanoma skin cancer Unspecified malignant neoplasm of skin, site unspecified [id number] (obstructive sleep apnea) Obstructive sleep apnea (adult) (pediatric) Class 2 obesity due to excess calories with body mass index (BMI) of 35.0 to 35.9 in adult, unspecified whether serious comorbidity present Type 2 diabetes mellitus with diabetic neuropathy, without long-term current use of insulin (HCC)- Primary Fibromyalgia Mylagia and myositis, unspecified Other hyperlipidemia [id number] (obstructive sleep apnea) Obstructive sleep apnea (adult) (pediatric) Essential tremor Essential and other specified forms of tremor Hypothyroidism, unspecified type Powers's esophagus with dysplasia Powers's esophagus Bipolar 1 disorder (HCC) Bipolar I disorder, most recent episode (or current) unspecified [facility] Diagnosis Preoperative examination- Primary Preoperative examination, unspecified Acute pain of left shoulder Hypertension, unspecified type Other hyperlipidemia Type 2 diabetes mellitus with diabetic neuropathy, without long-term current use of insulin (HCC) Hypothyroidism, unspecified type Essential tremor Essential and other specified forms of tremor 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 Liver fibrosis 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 of alcohol Preoperative examination- Primary Preoperative examination, unspecified Cystocele, midline Uterovaginal prolapse Uterovaginal prolapse, unspecified Mixed incontinence Mixed incontinence urge and stress (male)(female) Rectocele Uterine prolapse Uterine prolapse without mention of vaginal wall prolapse Mixed stress and urge urinary incontinence Mixed incontinence urge and stress (male)(female) Urinary urgency Urgency of urination Urinary frequency Constipation due to outlet dysfunction Essential tremor Essential and other specified forms of tremor [id number] (obstructive sleep apnea) Obstructive sleep apnea (adult) (pediatric) Essential hypertension Unspecified essential hypertension Mild CAD Gastroesophageal reflux disease without esophagitis Esophageal reflux H/O gastric bypass Bariatric surgery status Liver fibrosis 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 of alcohol Class 2 obesity due to excess calories with body mass index (BMI) of 35.0 to 35.9 in adult, unspecified whether serious comorbidity present Type 2 diabetes mellitus with diabetic neuropathy, without long-term current use of insulin (HCC) Hypothyroidism, unspecified type Bipolar 1 disorder (HCC) Bipolar I disorder, most recent episode (or current) unspecified Fibromyalgia Mylagia and myositis, unspecified Pre-operative examination- Primary Preoperative examination, unspecified Colon cancer screening Special screening for malignant neoplasms, colon 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 H/O gastric bypass Bariatric surgery status 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 Essential tremor Essential and other specified forms of tremor Fibromyalgia Mylagia and myositis, unspecified Chronic nonintractable headache, unspecified headache type Neuropathy Mononeuritis of unspecified site Primary hypertension Unspecified essential hypertension Other hyperlipidemia [id number] (obstructive sleep apnea) Obstructive sleep apnea (adult) (pediatric) Liver fibrosis 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 of alcohol Type 2 diabetes mellitus with diabetic neuropathy, without long-term current use of insulin (HCC) Hypothyroidism, unspecified type Bipolar 1 disorder (HCC) Bipolar I disorder, most recent episode (or current) unspecified Former smoker Personal history of tobacco use, presenting hazards to health Class 2 obesity due to excess calories with body mass index (BMI) of 35.0 to 35.9 in adult, unspecified whether serious comorbidity present Non-melanoma skin cancer Unspecified malignant neoplasm of skin, site unspecified Pre-operative examination- Primary Preoperative examination, unspecified 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 Bipolar 1 disorder (HCC) Bipolar I disorder, most recent episode (or current) unspecified Chronic nonintractable headache, unspecified headache type 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 Type 2 diabetes mellitus with diabetic neuropathy, without long-term current use of insulin (HCC) Essential tremor Essential and other specified forms of tremor Fibromyalgia Mylagia and myositis, unspecified Former smoker Personal history of tobacco use, presenting hazards to health H/O gastric bypass Bariatric surgery status Primary hypertension Unspecified essential hypertension Other hyperlipidemia Hypothyroidism, unspecified type Liver fibrosis 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 of alcohol Neuropathy Mononeuritis of unspecified site Non-melanoma skin cancer Unspecified malignant neoplasm of skin, site unspecified [id number] (obstructive sleep apnea) Obstructive sleep apnea (adult) (pediatric) Class 2 obesity due to excess calories with body mass index (BMI) of 35.0 to 35.9 in adult, unspecified whether serious comorbidity present Powers's esophagus with dysplasia Powers's esophagus Sciatica, unspecified laterality [facility]* Diagnosis Preoperative examination- Primary Preoperative examination, unspecified Acute pain of left shoulder Hypertension, unspecified type Other hyperlipidemia Type 2 diabetes mellitus with diabetic neuropathy, without long-term current use of insulin (HCC) Hypothyroidism, unspecified type Essential tremor Essential and other specified forms of tremor 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 Liver fibrosis 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 of alcohol Preoperative examination- Primary Preoperative examination, unspecified Cystocele, midline Uterovaginal prolapse Uterovaginal prolapse, unspecified Mixed incontinence Mixed incontinence urge and stress (male)(female) Rectocele Uterine prolapse Uterine prolapse without mention of vaginal wall prolapse Mixed stress and urge urinary incontinence Mixed incontinence urge and stress (male)(female) Urinary urgency Urgency of urination Urinary frequency Constipation due to outlet dysfunction Essential tremor Essential and other specified forms of tremor [id number] (obstructive sleep apnea) Obstructive sleep apnea (adult) (pediatric) Essential hypertension Unspecified essential hypertension Mild CAD Gastroesophageal reflux disease without esophagitis Esophageal reflux H/O gastric bypass Bariatric surgery status Liver fibrosis 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 of alcohol Class 2 obesity due to excess calories with body mass index (BMI) of 35.0 to 35.9 in adult, unspecified whether serious comorbidity present Type 2 diabetes mellitus with diabetic neuropathy, without long-term current use of insulin (HCC) Hypothyroidism, unspecified type Bipolar 1 disorder (HCC) Bipolar I disorder, most recent episode (or current) unspecified Fibromyalgia Mylagia and myositis, unspecified Pre-operative examination- Primary Preoperative examination, unspecified Colon cancer screening Special screening for malignant neoplasms, colon 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 H/O gastric bypass Bariatric surgery status 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 Essential tremor Essential and other specified forms of tremor Fibromyalgia Mylagia and myositis, unspecified Chronic nonintractable headache, unspecified headache type Neuropathy Mononeuritis of unspecified site Primary hypertension Unspecified essential hypertension Other hyperlipidemia [id number] (obstructive sleep apnea) Obstructive sleep apnea (adult) (pediatric) Liver fibrosis 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 of alcohol Type 2 diabetes mellitus with diabetic neuropathy, without long-term current use of insulin (HCC) Hypothyroidism, unspecified type Bipolar 1 disorder (HCC) Bipolar I disorder, most recent episode (or current) unspecified Former smoker Personal history of tobacco use, presenting hazards to health Class 2 obesity due to excess calories with body mass index (BMI) of 35.0 to 35.9 in adult, unspecified whether serious comorbidity present Non-melanoma skin cancer Unspecified malignant neoplasm of skin, site unspecified Pre-operative examination- Primary Preoperative examination, unspecified 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 Bipolar 1 disorder (HCC) Bipolar I disorder, most recent episode (or current) unspecified Chronic nonintractable headache, unspecified headache type 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 Type 2 diabetes mellitus with diabetic neuropathy, without long-term current use of insulin (HCC) Essential tremor Essential and other specified forms of tremor Fibromyalgia Mylagia and myositis, unspecified Former smoker Personal history of tobacco use, presenting hazards to health H/O gastric bypass Bariatric surgery status Primary hypertension Unspecified essential hypertension Other hyperlipidemia Hypothyroidism, unspecified type Liver fibrosis 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 of alcohol Neuropathy Mononeuritis of unspecified site Non-melanoma skin cancer Unspecified malignant neoplasm of skin, site unspecified [id number] (obstructive sleep apnea) Obstructive sleep apnea (adult) (pediatric) Class 2 obesity due to excess calories with body mass index (BMI) of 35.0 to 35.9 in adult, unspecified whether serious comorbidity present Type 2 diabetes mellitus with diabetic neuropathy, without long-term current use of insulin (HCC) [facility] Diagnosis Preoperative examination- Primary Preoperative examination, unspecified Acute pain of left shoulder Hypertension, unspecified type Other hyperlipidemia Type 2 diabetes mellitus with diabetic neuropathy, without long-term current use of insulin (HCC) Hypothyroidism, unspecified type Essential tremor Essential and other specified forms of tremor 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 Liver fibrosis 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 of alcohol Preoperative examination- Primary Preoperative examination, unspecified Cystocele, midline Uterovaginal prolapse Uterovaginal prolapse, unspecified Mixed incontinence Mixed incontinence urge and stress (male)(female) Rectocele Uterine prolapse Uterine prolapse without mention of vaginal wall prolapse Mixed stress and urge urinary incontinence Mixed incontinence urge and stress (male)(female) Urinary urgency Urgency of urination Urinary frequency Constipation due to outlet dysfunction Essential tremor Essential and other specified forms of tremor [id number] (obstructive sleep apnea) Obstructive sleep apnea (adult) (pediatric) Essential hypertension Unspecified essential hypertension Mild CAD Gastroesophageal reflux disease without esophagitis Esophageal reflux H/O gastric bypass Bariatric surgery status Liver fibrosis 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 of alcohol Class 2 obesity due to excess calories with body mass index (BMI) of 35.0 to 35.9 in adult, unspecified whether serious comorbidity present Type 2 diabetes mellitus with diabetic neuropathy, without long-term current use of insulin (HCC) Hypothyroidism, unspecified type Bipolar 1 disorder (HCC) Bipolar I disorder, most recent episode (or current) unspecified Fibromyalgia Mylagia and myositis, unspecified Pre-operative examination- Primary Preoperative examination, unspecified Colon cancer screening Special screening for malignant neoplasms, colon 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 H/O gastric bypass Bariatric surgery status 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 Essential tremor Essential and other specified forms of tremor Fibromyalgia Mylagia and myositis, unspecified Chronic nonintractable headache, unspecified headache type Neuropathy Mononeuritis of unspecified site Primary hypertension Unspecified essential hypertension Other hyperlipidemia [id number] (obstructive sleep apnea) Obstructive sleep apnea (adult) (pediatric) Liver fibrosis 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 of alcohol Type 2 diabetes mellitus with diabetic neuropathy, without long-term current use of insulin (HCC) Hypothyroidism, unspecified type Bipolar 1 disorder (HCC) Bipolar I disorder, most recent episode (or current) unspecified Former smoker Personal history of tobacco use, presenting hazards to health Class 2 obesity due to excess calories with body mass index (BMI) of 35.0 to 35.9 in adult, unspecified whether serious comorbidity present Non-melanoma skin cancer Unspecified malignant neoplasm of skin, site unspecified Pre-operative examination- Primary Preoperative examination, unspecified 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 Bipolar 1 disorder (HCC) Bipolar I disorder, most recent episode (or current) unspecified Chronic nonintractable headache, unspecified headache type 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 Type 2 diabetes mellitus with diabetic neuropathy, without long-term current use of insulin (HCC) Essential tremor Essential and other specified forms of tremor Fibromyalgia Mylagia and myositis, unspecified Former smoker Personal history of tobacco use, presenting hazards to health H/O gastric bypass Bariatric surgery status Primary hypertension Unspecified essential hypertension Other hyperlipidemia Hypothyroidism, unspecified type Liver fibrosis 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 of alcohol Neuropathy Mononeuritis of unspecified site Non-melanoma skin cancer Unspecified malignant neoplasm of skin, site unspecified [id number] (obstructive sleep apnea) Obstructive sleep apnea (adult) (pediatric) Class 2 obesity due to excess calories with body mass index (BMI) of 35.0 to 35.9 in adult, unspecified whether serious comorbidity present Type 2 diabetes mellitus with diabetic neuropathy, without long-term current use of insulin (HCC) [facility]* Diagnosis Preoperative examination- Primary Preoperative examination, unspecified Acute pain of left shoulder Hypertension, unspecified type Other hyperlipidemia Type 2 diabetes mellitus with diabetic neuropathy, without long-term current use of insulin (HCC) Hypothyroidism, unspecified type Essential tremor Essential and other specified forms of tremor 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 Liver fibrosis 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 of alcohol Preoperative examination- Primary Preoperative examination, unspecified Cystocele, midline Uterovaginal prolapse Uterovaginal prolapse, unspecified Mixed incontinence Mixed incontinence urge and stress (male)(female) Rectocele Uterine prolapse Uterine prolapse without mention of vaginal wall prolapse Mixed stress and urge urinary incontinence Mixed incontinence urge and stress (male)(female) Urinary urgency Urgency of urination Urinary frequency Constipation due to outlet dysfunction Essential tremor Essential and other specified forms of tremor [id number] (obstructive sleep apnea) Obstructive sleep apnea (adult) (pediatric) Essential hypertension Unspecified essential hypertension Mild CAD Gastroesophageal reflux disease without esophagitis Esophageal reflux H/O gastric bypass Bariatric surgery status Liver fibrosis 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 of alcohol Class 2 obesity due to excess calories with body mass index (BMI) of 35.0 to 35.9 in adult, unspecified whether serious comorbidity present Type 2 diabetes mellitus with diabetic neuropathy, without long-term current use of insulin (HCC) Hypothyroidism, unspecified type Bipolar 1 disorder (HCC) Bipolar I disorder, most recent episode (or current) unspecified Fibromyalgia Mylagia and myositis, unspecified Pre-operative examination- Primary Preoperative examination, unspecified Colon cancer screening Special screening for malignant neoplasms, colon 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 H/O gastric bypass Bariatric surgery status 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 Essential tremor Essential and other specified forms of tremor Fibromyalgia Mylagia and myositis, unspecified Chronic nonintractable headache, unspecified headache type Neuropathy Mononeuritis of unspecified site Primary hypertension Unspecified essential hypertension Other hyperlipidemia [id number] (obstructive sleep apnea) Obstructive sleep apnea (adult) (pediatric) Liver fibrosis 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 of alcohol Type 2 diabetes mellitus with diabetic neuropathy, without long-term current use of insulin (HCC) Hypothyroidism, unspecified type Bipolar 1 disorder (HCC) Bipolar I disorder, most recent episode (or current) unspecified Former smoker Personal history of tobacco use, presenting hazards to health Class 2 obesity due to excess calories with body mass index (BMI) of 35.0 to 35.9 in adult, unspecified whether serious comorbidity present Non-melanoma skin cancer Unspecified malignant neoplasm of skin, site unspecified Pre-operative examination- Primary Preoperative examination, unspecified 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 Bipolar 1 disorder (HCC) Bipolar I disorder, most recent episode (or current) unspecified Chronic nonintractable headache, unspecified headache type 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 Type 2 diabetes mellitus with diabetic neuropathy, without long-term current use of insulin (HCC) Essential tremor Essential and other specified forms of tremor Fibromyalgia Mylagia and myositis, unspecified Former smoker Personal history of tobacco use, presenting hazards to health H/O gastric bypass Bariatric surgery status Primary hypertension Unspecified essential hypertension Other hyperlipidemia Hypothyroidism, unspecified type Liver fibrosis 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 of alcohol Neuropathy Mononeuritis of unspecified site Non-melanoma skin cancer Unspecified malignant neoplasm of skin, site unspecified [id number] (obstructive sleep apnea) Obstructive sleep apnea (adult) (pediatric) Class 2 obesity due to excess calories with body mass index (BMI) of 35.0 to 35.9 in adult, unspecified whether serious comorbidity present Sciatica, unspecified laterality [facility] Preoperative examination- Primary Preoperative examination, unspecified Acute pain of left shoulder Hypertension, unspecified type Other hyperlipidemia Type 2 diabetes mellitus with diabetic neuropathy, without long-term current use of insulin (HCC) Hypothyroidism, unspecified type Essential tremor Essential and other specified forms of tremor 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 Liver fibrosis 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 of alcohol Preoperative examination- Primary Preoperative examination, unspecified Cystocele, midline Uterovaginal prolapse Uterovaginal prolapse, unspecified Mixed incontinence Mixed incontinence urge and stress (male)(female) Rectocele Uterine prolapse Uterine prolapse without mention of vaginal wall prolapse Mixed stress and urge urinary incontinence Mixed incontinence urge and stress (male)(female) Urinary urgency Urgency of urination Urinary frequency Constipation due to outlet dysfunction Essential tremor Essential and other specified forms of tremor [id number] (obstructive sleep apnea) Obstructive sleep apnea (adult) (pediatric) Essential hypertension Unspecified essential hypertension Mild CAD Gastroesophageal reflux disease without esophagitis Esophageal reflux H/O gastric bypass Bariatric surgery status Liver fibrosis 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 of alcohol Class 2 obesity due to excess calories with body mass index (BMI) of 35.0 to 35.9 in adult, unspecified whether serious comorbidity present Type 2 diabetes mellitus with diabetic neuropathy, without long-term current use of insulin (HCC) Hypothyroidism, unspecified type Bipolar 1 disorder (HCC) Bipolar I disorder, most recent episode (or current) unspecified Fibromyalgia Mylagia and myositis, unspecified Pre-operative examination- Primary Preoperative examination, unspecified Colon cancer screening Special screening for malignant neoplasms, colon 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 H/O gastric bypass Bariatric surgery status 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 Essential tremor Essential and other specified forms of tremor Fibromyalgia Mylagia and myositis, unspecified Chronic nonintractable headache, unspecified headache type Neuropathy Mononeuritis of unspecified site Primary hypertension Unspecified essential hypertension Other hyperlipidemia [id number] (obstructive sleep apnea) Obstructive sleep apnea (adult) (pediatric) Liver fibrosis 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 of alcohol Type 2 diabetes mellitus with diabetic neuropathy, without long-term current use of insulin (HCC) Hypothyroidism, unspecified type Bipolar 1 disorder (HCC) Bipolar I disorder, most recent episode (or current) unspecified Former smoker Personal history of tobacco use, presenting hazards to health Class 2 obesity due to excess calories with body mass index (BMI) of 35.0 to 35.9 in adult, unspecified whether serious comorbidity present Non-melanoma skin cancer Unspecified malignant neoplasm of skin, site unspecified Pre-operative examination- Primary Preoperative examination, unspecified 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 Bipolar 1 disorder (HCC) Bipolar I disorder, most recent episode (or current) unspecified Chronic nonintractable headache, unspecified headache type 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 Type 2 diabetes mellitus with diabetic neuropathy, without long-term current use of insulin (HCC) Essential tremor Essential and other specified forms of tremor Fibromyalgia Mylagia and myositis, unspecified Former smoker Personal history of tobacco use, presenting hazards to health H/O gastric bypass Bariatric surgery status Primary hypertension Unspecified essential hypertension Other hyperlipidemia Hypothyroidism, unspecified type Liver fibrosis 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 of alcohol Neuropathy Mononeuritis of unspecified site Non-melanoma skin cancer Unspecified malignant neoplasm of skin, site unspecified [id number] (obstructive sleep apnea) Obstructive sleep apnea (adult) (pediatric) Class 2 obesity due to excess calories with body mass index (BMI) of 35.0 to 35.9 in adult, unspecified whether serious comorbidity present Migraine without aura, intractable, with status migrainosus Migraine without aura, with intractable migraine, so stated, with status migrainosus [facility] Diagnosis Preoperative examination- Primary Preoperative examination, unspecified Acute pain of left shoulder Hypertension, unspecified type Other hyperlipidemia Type 2 diabetes mellitus with diabetic neuropathy, without long-term current use of insulin (HCC) Hypothyroidism, unspecified type Essential tremor Essential and other specified forms of tremor 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 Liver fibrosis 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 of alcohol Preoperative examination- Primary Preoperative examination, unspecified Cystocele, midline Uterovaginal prolapse Uterovaginal prolapse, unspecified Mixed incontinence Mixed incontinence urge and stress (male)(female) Rectocele Uterine prolapse Uterine prolapse without mention of vaginal wall prolapse Mixed stress and urge urinary incontinence Mixed incontinence urge and stress (male)(female) Urinary urgency Urgency of urination Urinary frequency Constipation due to outlet dysfunction Essential tremor Essential and other specified forms of tremor [id number] (obstructive sleep apnea) Obstructive sleep apnea (adult) (pediatric) Essential hypertension Unspecified essential hypertension Mild CAD Gastroesophageal reflux disease without esophagitis Esophageal reflux H/O gastric bypass Bariatric surgery status Liver fibrosis 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 of alcohol Class 2 obesity due to excess calories with body mass index (BMI) of 35.0 to 35.9 in adult, unspecified whether serious comorbidity present Type 2 diabetes mellitus with diabetic neuropathy, without long-term current use of insulin (HCC) Hypothyroidism, unspecified type Bipolar 1 disorder (HCC) Bipolar I disorder, most recent episode (or current) unspecified Fibromyalgia Mylagia and myositis, unspecified Pre-operative examination- Primary Preoperative examination, unspecified Colon cancer screening Special screening for malignant neoplasms, colon 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 H/O gastric bypass Bariatric surgery status 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 Essential tremor Essential and other specified forms of tremor Fibromyalgia Mylagia and myositis, unspecified Chronic nonintractable headache, unspecified headache type Neuropathy Mononeuritis of unspecified site Primary hypertension Unspecified essential hypertension Other hyperlipidemia [id number] (obstructive sleep apnea) Obstructive sleep apnea (adult) (pediatric) Liver fibrosis 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 of alcohol Type 2 diabetes mellitus with diabetic neuropathy, without long-term current use of insulin (HCC) Hypothyroidism, unspecified type Bipolar 1 disorder (HCC) Bipolar I disorder, most recent episode (or current) unspecified Former smoker Personal history of tobacco use, presenting hazards to health Class 2 obesity due to excess calories with body mass index (BMI) of 35.0 to 35.9 in adult, unspecified whether serious comorbidity present Non-melanoma skin cancer Unspecified malignant neoplasm of skin, site unspecified Pre-operative examination- Primary Preoperative examination, unspecified 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 Bipolar 1 disorder (HCC) Bipolar I disorder, most recent episode (or current) unspecified Chronic nonintractable headache, unspecified headache type 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 Type 2 diabetes mellitus with diabetic neuropathy, without long-term current use of insulin (HCC) Essential tremor Essential and other specified forms of tremor Fibromyalgia Mylagia and myositis, unspecified Former smoker Personal history of tobacco use, presenting hazards to health H/O gastric bypass Bariatric surgery status Primary hypertension Unspecified essential hypertension Other hyperlipidemia Hypothyroidism, unspecified type Liver fibrosis 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 of alcohol Neuropathy Mononeuritis of unspecified site Non-melanoma skin cancer Unspecified malignant neoplasm of skin, site unspecified [id number] (obstructive sleep apnea) Obstructive sleep apnea (adult) (pediatric) Class 2 obesity due to excess calories with body mass index (BMI) of 35.0 to 35.9 in adult, unspecified whether serious comorbidity present Acute cough [facility] Diagnosis Preoperative examination- Primary Preoperative examination, unspecified Acute pain of left shoulder Hypertension, unspecified type Other hyperlipidemia Type 2 diabetes mellitus with diabetic neuropathy, without long-term current use of insulin (HCC) Hypothyroidism, unspecified type Essential tremor Essential and other specified forms of tremor 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 Liver fibrosis 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 of alcohol Preoperative examination- Primary Preoperative examination, unspecified Cystocele, midline Uterovaginal prolapse Uterovaginal prolapse, unspecified Mixed incontinence Mixed incontinence urge and stress (male)(female) Rectocele Uterine prolapse Uterine prolapse without mention of vaginal wall prolapse Mixed stress and urge urinary incontinence Mixed incontinence urge and stress (male)(female) Urinary urgency Urgency of urination Urinary frequency Constipation due to outlet dysfunction Essential tremor Essential and other specified forms of tremor [id number] (obstructive sleep apnea) Obstructive sleep apnea (adult) (pediatric) Essential hypertension Unspecified essential hypertension Mild CAD Gastroesophageal reflux disease without esophagitis Esophageal reflux H/O gastric bypass Bariatric surgery status Liver fibrosis 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 of alcohol Class 2 obesity due to excess calories with body mass index (BMI) of 35.0 to 35.9 in adult, unspecified whether serious comorbidity present Type 2 diabetes mellitus with diabetic neuropathy, without long-term current use of insulin (HCC) Hypothyroidism, unspecified type Bipolar 1 disorder (HCC) Bipolar I disorder, most recent episode (or current) unspecified Fibromyalgia Mylagia and myositis, unspecified Pre-operative examination- Primary Preoperative examination, unspecified Colon cancer screening Special screening for malignant neoplasms, colon 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 H/O gastric bypass Bariatric surgery status 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 Essential tremor Essential and other specified forms of tremor Fibromyalgia Mylagia and myositis, unspecified Chronic nonintractable headache, unspecified headache type Neuropathy Mononeuritis of unspecified site Primary hypertension Unspecified essential hypertension Other hyperlipidemia [id number] (obstructive sleep apnea) Obstructive sleep apnea (adult) (pediatric) Liver fibrosis 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 of alcohol Type 2 diabetes mellitus with diabetic neuropathy, without long-term current use of insulin (HCC) Hypothyroidism, unspecified type Bipolar 1 disorder (HCC) Bipolar I disorder, most recent episode (or current) unspecified Former smoker Personal history of tobacco use, presenting hazards to health Class 2 obesity due to excess calories with body mass index (BMI) of 35.0 to 35.9 in adult, unspecified whether serious comorbidity present Non-melanoma skin cancer Unspecified malignant neoplasm of skin, site unspecified Pre-operative examination- Primary Preoperative examination, unspecified 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 Bipolar 1 disorder (HCC) Bipolar I disorder, most recent episode (or current) unspecified Chronic nonintractable headache, unspecified headache type 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 Type 2 diabetes mellitus with diabetic neuropathy, without long-term current use of insulin (HCC) Essential tremor Essential and other specified forms of tremor Fibromyalgia Mylagia and myositis, unspecified Former smoker Personal history of tobacco use, presenting hazards to health H/O gastric bypass Bariatric surgery status Primary hypertension Unspecified essential hypertension Other hyperlipidemia Hypothyroidism, unspecified type Liver fibrosis 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 of alcohol Neuropathy Mononeuritis of unspecified site Non-melanoma skin cancer Unspecified malignant neoplasm of skin, site unspecified [id number] (obstructive sleep apnea) Obstructive sleep apnea (adult) (pediatric) Class 2 obesity due to excess calories with body mass index (BMI) of 35.0 to 35.9 in adult, unspecified whether serious comorbidity present Finger pain, right Pain in limb [facility] Diagnosis Preoperative examination- Primary Preoperative examination, unspecified Acute pain of left shoulder Hypertension, unspecified type Other hyperlipidemia Type 2 diabetes mellitus with diabetic neuropathy, without long-term current use of insulin (HCC) Hypothyroidism, unspecified type Essential tremor Essential and other specified forms of tremor 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 Liver fibrosis 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 of alcohol Preoperative examination- Primary Preoperative examination, unspecified Cystocele, midline Uterovaginal prolapse Uterovaginal prolapse, unspecified Mixed incontinence Mixed incontinence urge and stress (male)(female) Rectocele Uterine prolapse Uterine prolapse without mention of vaginal wall prolapse Mixed stress and urge urinary incontinence Mixed incontinence urge and stress (male)(female) Urinary urgency Urgency of urination Urinary frequency Constipation due to outlet dysfunction Essential tremor Essential and other specified forms of tremor [id number] (obstructive sleep apnea) Obstructive sleep apnea (adult) (pediatric) Essential hypertension Unspecified essential hypertension Mild CAD Gastroesophageal reflux disease without esophagitis Esophageal reflux H/O gastric bypass Bariatric surgery status Liver fibrosis 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 of alcohol Class 2 obesity due to excess calories with body mass index (BMI) of 35.0 to 35.9 in adult, unspecified whether serious comorbidity present Type 2 diabetes mellitus with diabetic neuropathy, without long-term current use of insulin (HCC) Hypothyroidism, unspecified type Bipolar 1 disorder (HCC) Bipolar I disorder, most recent episode (or current) unspecified Fibromyalgia Mylagia and myositis, unspecified Pre-operative examination- Primary Preoperative examination, unspecified Colon cancer screening Special screening for malignant neoplasms, colon 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 H/O gastric bypass Bariatric surgery status 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 Essential tremor Essential and other specified forms of tremor Fibromyalgia Mylagia and myositis, unspecified Chronic nonintractable headache, unspecified headache type Neuropathy Mononeuritis of unspecified site Primary hypertension Unspecified essential hypertension Other hyperlipidemia [id number] (obstructive sleep apnea) Obstructive sleep apnea (adult) (pediatric) Liver fibrosis 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 of alcohol Type 2 diabetes mellitus with diabetic neuropathy, without long-term current use of insulin (HCC) Hypothyroidism, unspecified type Bipolar 1 disorder (HCC) Bipolar I disorder, most recent episode (or current) unspecified Former smoker Personal history of tobacco use, presenting hazards to health Class 2 obesity due to excess calories with body mass index (BMI) of 35.0 to 35.9 in adult, unspecified whether serious comorbidity present Non-melanoma skin cancer Unspecified malignant neoplasm of skin, site unspecified Pre-operative examination- Primary Preoperative examination, unspecified 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 Bipolar 1 disorder (HCC) Bipolar I disorder, most recent episode (or current) unspecified Chronic nonintractable headache, unspecified headache type 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 Type 2 diabetes mellitus with diabetic neuropathy, without long-term current use of insulin (HCC) Essential tremor Essential and other specified forms of tremor Fibromyalgia Mylagia and myositis, unspecified Former smoker Personal history of tobacco use, presenting hazards to health H/O gastric bypass Bariatric surgery status Primary hypertension Unspecified essential hypertension Other hyperlipidemia Hypothyroidism, unspecified type Liver fibrosis 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 of alcohol Neuropathy Mononeuritis of unspecified site Non-melanoma skin cancer Unspecified malignant neoplasm of skin, site unspecified [id number] (obstructive sleep apnea) Obstructive sleep apnea (adult) (pediatric) Class 2 obesity due to excess calories with body mass index (BMI) of 35.0 to 35.9 in adult, unspecified whether serious comorbidity present Iron deficiency anemia, unspecified iron deficiency anemia type [facility] Diagnosis Preoperative examination- Primary Preoperative examination, unspecified Acute pain of left shoulder Hypertension, unspecified type Other hyperlipidemia Type 2 diabetes mellitus with diabetic neuropathy, without long-term current use of insulin (HCC) Hypothyroidism, unspecified type Essential tremor Essential and other specified forms of tremor 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 Liver fibrosis 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 of alcohol Preoperative examination- Primary Preoperative examination, unspecified Cystocele, midline Uterovaginal prolapse Uterovaginal prolapse, unspecified Mixed incontinence Mixed incontinence urge and stress (male)(female) Rectocele Uterine prolapse Uterine prolapse without mention of vaginal wall prolapse Mixed stress and urge urinary incontinence Mixed incontinence urge and stress (male)(female) Urinary urgency Urgency of urination Urinary frequency Constipation due to outlet dysfunction Essential tremor Essential and other specified forms of tremor [id number] (obstructive sleep apnea) Obstructive sleep apnea (adult) (pediatric) Essential hypertension Unspecified essential hypertension Mild CAD Gastroesophageal reflux disease without esophagitis Esophageal reflux H/O gastric bypass Bariatric surgery status Liver fibrosis 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 of alcohol Class 2 obesity due to excess calories with body mass index (BMI) of 35.0 to 35.9 in adult, unspecified whether serious comorbidity present Type 2 diabetes mellitus with diabetic neuropathy, without long-term current use of insulin (HCC) Hypothyroidism, unspecified type Bipolar 1 disorder (HCC) Bipolar I disorder, most recent episode (or current) unspecified Fibromyalgia Mylagia and myositis, unspecified Pre-operative examination- Primary Preoperative examination, unspecified Colon cancer screening Special screening for malignant neoplasms, colon 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 H/O gastric bypass Bariatric surgery status 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 Essential tremor Essential and other specified forms of tremor Fibromyalgia Mylagia and myositis, unspecified Chronic nonintractable headache, unspecified headache type Neuropathy Mononeuritis of unspecified site Primary hypertension Unspecified essential hypertension Other hyperlipidemia KRZYSZTOF (obstructive sleep apnea) Obstructive sleep apnea (adult) (pediatric) Liver fibrosis 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 of alcohol Type 2 diabetes mellitus with diabetic neuropathy, without long-term current use of insulin (HCC) Hypothyroidism, unspecified type Bipolar 1 disorder (HCC) Bipolar I disorder, most recent episode (or current) unspecified Former smoker Personal history of tobacco use, presenting hazards to health Class 2 obesity due to excess calories with body mass index (BMI) of 35.0 to 35.9 in adult, unspecified whether serious comorbidity present Non-melanoma skin cancer Unspecified malignant neoplasm of skin, site unspecified Cough Pre-operative examination- Primary Preoperative examination, unspecified 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 Bipolar 1 disorder (HCC) Bipolar I disorder, most recent episode (or current) unspecified Chronic nonintractable headache, unspecified headache type 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 Type 2 diabetes mellitus with diabetic neuropathy, without long-term current use of insulin (HCC) Essential tremor Essential and other specified forms of tremor Fibromyalgia Mylagia and myositis, unspecified Former smoker Personal history of tobacco use, presenting hazards to health H/O gastric bypass Bariatric surgery status Primary hypertension Unspecified essential hypertension Other hyperlipidemia Hypothyroidism, unspecified type Liver fibrosis 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 of alcohol Neuropathy Mononeuritis of unspecified site Non-melanoma skin cancer Unspecified malignant neoplasm of skin, site unspecified [id number] (obstructive sleep apnea) Obstructive sleep apnea (adult) (pediatric) Class 2 obesity due to excess calories with body mass index (BMI) of 35.0 to 35.9 in adult, unspecified whether serious comorbidity present [facility] Diagnosis Preoperative examination- Primary Preoperative examination, unspecified Acute pain of left shoulder Hypertension, unspecified type Other hyperlipidemia Type 2 diabetes mellitus with diabetic neuropathy, without long-term current use of insulin (HCC) Hypothyroidism, unspecified type Essential tremor Essential and other specified forms of tremor 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 Liver fibrosis 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 of alcohol Preoperative examination- Primary Preoperative examination, unspecified Cystocele, midline Uterovaginal prolapse Uterovaginal prolapse, unspecified Mixed incontinence Mixed incontinence urge and stress (male)(female) Rectocele Uterine prolapse Uterine prolapse without mention of vaginal wall prolapse Mixed stress and urge urinary incontinence Mixed incontinence urge and stress (male)(female) Urinary urgency Urgency of urination Urinary frequency Constipation due to outlet dysfunction Essential tremor Essential and other specified forms of tremor [id number] (obstructive sleep apnea) Obstructive sleep apnea (adult) (pediatric) Essential hypertension Unspecified essential hypertension Mild CAD Gastroesophageal reflux disease without esophagitis Esophageal reflux H/O gastric bypass Bariatric surgery status Liver fibrosis 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 of alcohol Class 2 obesity due to excess calories with body mass index (BMI) of 35.0 to 35.9 in adult, unspecified whether serious comorbidity present Type 2 diabetes mellitus with diabetic neuropathy, without long-term current use of insulin (HCC) Hypothyroidism, unspecified type Bipolar 1 disorder (HCC) Bipolar I disorder, most recent episode (or current) unspecified Fibromyalgia Mylagia and myositis, unspecified Pre-operative examination- Primary Preoperative examination, unspecified Colon cancer screening Special screening for malignant neoplasms, colon 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 H/O gastric bypass Bariatric surgery status 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 Essential tremor Essential and other specified forms of tremor Fibromyalgia Mylagia and myositis, unspecified Chronic nonintractable headache, unspecified headache type Neuropathy Mononeuritis of unspecified site Primary hypertension Unspecified essential hypertension Other hyperlipidemia [id number] (obstructive sleep apnea) Obstructive sleep apnea (adult) (pediatric) Liver fibrosis 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 of alcohol Type 2 diabetes mellitus with diabetic neuropathy, without long-term current use of insulin (HCC) Hypothyroidism, unspecified type Bipolar 1 disorder (HCC) Bipolar I disorder, most recent episode (or current) unspecified Former smoker Personal history of tobacco use, presenting hazards to health Class 2 obesity due to excess calories with body mass index (BMI) of 35.0 to 35.9 in adult, unspecified whether serious comorbidity present Non-melanoma skin cancer Unspecified malignant neoplasm of skin, site unspecified Pre-operative examination- Primary Preoperative examination, unspecified 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 Bipolar 1 disorder (HCC) Bipolar I disorder, most recent episode (or current) unspecified Chronic nonintractable headache, unspecified headache type 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 Type 2 diabetes mellitus with diabetic neuropathy, without long-term current use of insulin (HCC) Essential tremor Essential and other specified forms of tremor Fibromyalgia Mylagia and myositis, unspecified Former smoker Personal history of tobacco use, presenting hazards to health H/O gastric bypass Bariatric surgery status Primary hypertension Unspecified essential hypertension Other hyperlipidemia Hypothyroidism, unspecified type Liver fibrosis 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 of alcohol Neuropathy Mononeuritis of unspecified site Non-melanoma skin cancer Unspecified malignant neoplasm of skin, site unspecified [id number] (obstructive sleep apnea) Obstructive sleep apnea (adult) (pediatric) Class 2 obesity due to excess calories with body mass index (BMI) of 35.0 to 35.9 in adult, unspecified whether serious comorbidity present Tinnitus, right ear- Primary Bilateral hearing loss, unspecified hearing loss type Other specified hearing loss, unspecified ear Dizziness and giddiness Sensorineural hearing loss, bilateral [facility] Preoperative examination- Primary Preoperative examination, unspecified Acute pain of left shoulder Hypertension, unspecified type Other hyperlipidemia Type 2 diabetes mellitus with diabetic neuropathy, without long-term current use of insulin (HCC) Hypothyroidism, unspecified type Essential tremor Essential and other specified forms of tremor 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 Liver fibrosis 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 of alcohol Preoperative examination- Primary Preoperative examination, unspecified Cystocele, midline Uterovaginal prolapse Uterovaginal prolapse, unspecified Mixed incontinence Mixed incontinence urge and stress (male)(female) Rectocele Uterine prolapse Uterine prolapse without mention of vaginal wall prolapse Mixed stress and urge urinary incontinence Mixed incontinence urge and stress (male)(female) Urinary urgency Urgency of urination Urinary frequency Constipation due to outlet dysfunction Essential tremor Essential and other specified forms of tremor [id number] (obstructive sleep apnea) Obstructive sleep apnea (adult) (pediatric) Essential hypertension Unspecified essential hypertension Mild CAD Gastroesophageal reflux disease without esophagitis Esophageal reflux H/O gastric bypass Bariatric surgery status Liver fibrosis 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 of alcohol Class 2 obesity due to excess calories with body mass index (BMI) of 35.0 to 35.9 in adult, unspecified whether serious comorbidity present Type 2 diabetes mellitus with diabetic neuropathy, without long-term current use of insulin (HCC) Hypothyroidism, unspecified type Bipolar 1 disorder (HCC) Bipolar I disorder, most recent episode (or current) unspecified Fibromyalgia Mylagia and myositis, unspecified Pre-operative examination- Primary Preoperative examination, unspecified Colon cancer screening Special screening for malignant neoplasms, colon 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 H/O gastric bypass Bariatric surgery status 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 Essential tremor Essential and other specified forms of tremor Fibromyalgia Mylagia and myositis, unspecified Chronic nonintractable headache, unspecified headache type Neuropathy Mononeuritis of unspecified site Primary hypertension Unspecified essential hypertension Other hyperlipidemia [id number] (obstructive sleep apnea) Obstructive sleep apnea (adult) (pediatric) Liver fibrosis 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 of alcohol Type 2 diabetes mellitus with diabetic neuropathy, without long-term current use of insulin (HCC) Hypothyroidism, unspecified type Bipolar 1 disorder (HCC) Bipolar I disorder, most recent episode (or current) unspecified Former smoker Personal history of tobacco use, presenting hazards to health Class 2 obesity due to excess calories with body mass index (BMI) of 35.0 to 35.9 in adult, unspecified whether serious comorbidity present Non-melanoma skin cancer Unspecified malignant neoplasm of skin, site unspecified Pre-operative examination- Primary Preoperative examination, unspecified 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 Bipolar 1 disorder (HCC) Bipolar I disorder, most recent episode (or current) unspecified Chronic nonintractable headache, unspecified headache type 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 Type 2 diabetes mellitus with diabetic neuropathy, without long-term current use of insulin (HCC) Essential tremor Essential and other specified forms of tremor Fibromyalgia Mylagia and myositis, unspecified Former smoker Personal history of tobacco use, presenting hazards to health H/O gastric bypass Bariatric surgery status Primary hypertension Unspecified essential hypertension Other hyperlipidemia Hypothyroidism, unspecified type Liver fibrosis 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 of alcohol Neuropathy Mononeuritis of unspecified site Non-melanoma skin cancer Unspecified malignant neoplasm of skin, site unspecified [id number] (obstructive sleep apnea) Obstructive sleep apnea (adult) (pediatric) Class 2 obesity due to excess calories with body mass index (BMI) of 35.0 to 35.9 in adult, unspecified whether serious comorbidity present Sensorineural hearing loss (SNHL) of both ears- Primary documented in this encounter [facility] note* Diagnosis Preoperative examination- Primary Preoperative examination, unspecified Acute pain of left shoulder Hypertension, unspecified type Other hyperlipidemia Type 2 diabetes mellitus with diabetic neuropathy, without long-term current use of insulin (HCC) Hypothyroidism, unspecified type Essential tremor Essential and other specified forms of tremor 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 Liver fibrosis 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 of alcohol Closed nondisplaced fracture of phalanx of lesser toe of right foot with routine healing, unspecified phalanx, subsequent encounter Preoperative examination- Primary Preoperative examination, unspecified Cystocele, midline Uterovaginal prolapse Uterovaginal prolapse, unspecified Mixed incontinence Mixed incontinence urge and stress (male)(female) Rectocele Uterine prolapse Uterine prolapse without mention of vaginal wall prolapse Mixed stress and urge urinary incontinence Mixed incontinence urge and stress (male)(female) Urinary urgency Urgency of urination Urinary frequency Constipation due to outlet dysfunction Essential tremor Essential and other specified forms of tremor [id number] (obstructive sleep apnea) Obstructive sleep apnea (adult) (pediatric) Essential hypertension Unspecified essential hypertension Mild CAD Gastroesophageal reflux disease without esophagitis Esophageal reflux H/O gastric bypass Bariatric surgery status Liver fibrosis 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 of alcohol Class 2 obesity due to excess calories with body mass index (BMI) of 35.0 to 35.9 in adult, unspecified whether serious comorbidity present Type 2 diabetes mellitus with diabetic neuropathy, without long-term current use of insulin (HCC) Hypothyroidism, unspecified type Bipolar 1 disorder (HCC) Bipolar I disorder, most recent episode (or current) unspecified Fibromyalgia Mylagia and myositis, unspecified Pre-operative examination- Primary Preoperative examination, unspecified Colon cancer screening Special screening for malignant neoplasms, colon 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 H/O gastric bypass Bariatric surgery status 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 Essential tremor Essential and other specified forms of tremor Fibromyalgia Mylagia and myositis, unspecified Chronic nonintractable headache, unspecified headache type Neuropathy Mononeuritis of unspecified site Primary hypertension Unspecified essential hypertension Other hyperlipidemia [id number] (obstructive sleep apnea) Obstructive sleep apnea (adult) (pediatric) Liver fibrosis 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 of alcohol Type 2 diabetes mellitus with diabetic neuropathy, without long-term current use of insulin (HCC) Hypothyroidism, unspecified type Bipolar 1 disorder (HCC) Bipolar I disorder, most recent episode (or current) unspecified Former smoker Personal history of tobacco use, presenting hazards to health Class 2 obesity due to excess calories with body mass index (BMI) of 35.0 to 35.9 in adult, unspecified whether serious comorbidity present Non-melanoma skin cancer Unspecified malignant neoplasm of skin, site unspecified Pre-operative examination- Primary Preoperative examination, unspecified 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 Bipolar 1 disorder (HCC) Bipolar I disorder, most recent episode (or current) unspecified Chronic nonintractable headache, unspecified headache type 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 Type 2 diabetes mellitus with diabetic neuropathy, without long-term current use of insulin (HCC) Essential tremor Essential and other specified forms of tremor Fibromyalgia Mylagia and myositis, unspecified Former smoker Personal history of tobacco use, presenting hazards to health H/O gastric bypass Bariatric surgery status Primary hypertension Unspecified essential hypertension Other hyperlipidemia Hypothyroidism, unspecified type Liver fibrosis 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 of alcohol Neuropathy Mononeuritis of unspecified site Non-melanoma skin cancer Unspecified malignant neoplasm of skin, site unspecified [id number] (obstructive sleep apnea) Obstructive sleep apnea (adult) (pediatric) Class 2 obesity due to excess calories with body mass index (BMI) of 35.0 to 35.9 in adult, unspecified whether serious comorbidity present [facility] Diagnosis Preoperative examination- Primary Preoperative examination, unspecified Acute pain of left shoulder Hypertension, unspecified type Other hyperlipidemia Type 2 diabetes mellitus with diabetic neuropathy, without long-term current use of insulin (HCC) Hypothyroidism, unspecified type Essential tremor Essential and other specified forms of tremor 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 Liver fibrosis 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 of alcohol Preoperative examination- Primary Preoperative examination, unspecified Cystocele, midline Uterovaginal prolapse Uterovaginal prolapse, unspecified Mixed incontinence Mixed incontinence urge and stress (male)(female) Rectocele Uterine prolapse Uterine prolapse without mention of vaginal wall prolapse Mixed stress and urge urinary incontinence Mixed incontinence urge and stress (male)(female) Urinary urgency Urgency of urination Urinary frequency Constipation due to outlet dysfunction Essential tremor Essential and other specified forms of tremor [id number] (obstructive sleep apnea) Obstructive sleep apnea (adult) (pediatric) Essential hypertension Unspecified essential hypertension Mild CAD Gastroesophageal reflux disease without esophagitis Esophageal reflux H/O gastric bypass Bariatric surgery status Liver fibrosis 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 of alcohol Class 2 obesity due to excess calories with body mass index (BMI) of 35.0 to 35.9 in adult, unspecified whether serious comorbidity present Type 2 diabetes mellitus with diabetic neuropathy, without long-term current use of insulin (HCC) Hypothyroidism, unspecified type Bipolar 1 disorder (HCC) Bipolar I disorder, most recent episode (or current) unspecified Fibromyalgia Mylagia and myositis, unspecified Pre-operative examination- Primary Preoperative examination, unspecified Colon cancer screening Special screening for malignant neoplasms, colon 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 H/O gastric bypass Bariatric surgery status 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 Essential tremor Essential and other specified forms of tremor Fibromyalgia Mylagia and myositis, unspecified Chronic nonintractable headache, unspecified headache type Neuropathy Mononeuritis of unspecified site Primary hypertension Unspecified essential hypertension Other hyperlipidemia [id number] (obstructive sleep apnea) Obstructive sleep apnea (adult) (pediatric) Liver fibrosis 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 of alcohol Type 2 diabetes mellitus with diabetic neuropathy, without long-term current use of insulin (HCC) Hypothyroidism, unspecified type Bipolar 1 disorder (HCC) Bipolar I disorder, most recent episode (or current) unspecified Former smoker Personal history of tobacco use, presenting hazards to health Class 2 obesity due to excess calories with body mass index (BMI) of 35.0 to 35.9 in adult, unspecified whether serious comorbidity present Non-melanoma skin cancer Unspecified malignant neoplasm of skin, site unspecified Pre-operative examination- Primary Preoperative examination, unspecified 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 Bipolar 1 disorder (HCC) Bipolar I disorder, most recent episode (or current) unspecified Chronic nonintractable headache, unspecified headache type 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 Type 2 diabetes mellitus with diabetic neuropathy, without long-term current use of insulin (HCC) Essential tremor Essential and other specified forms of tremor Fibromyalgia Mylagia and myositis, unspecified Former smoker Personal history of tobacco use, presenting hazards to health H/O gastric bypass Bariatric surgery status Primary hypertension Unspecified essential hypertension Other hyperlipidemia Hypothyroidism, unspecified type Liver fibrosis 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 of alcohol Neuropathy Mononeuritis of unspecified site Non-melanoma skin cancer Unspecified malignant neoplasm of skin, site unspecified [id number] (obstructive sleep apnea) Obstructive sleep apnea (adult) (pediatric) Class 2 obesity due to excess calories with body mass index (BMI) of 35.0 to 35.9 in adult, unspecified whether serious comorbidity present Sciatica, unspecified laterality [facility] Diagnosis Preoperative examination- Primary Preoperative examination, unspecified Acute pain of left shoulder Hypertension, unspecified type Other hyperlipidemia Type 2 diabetes mellitus with diabetic neuropathy, without long-term current use of insulin (HCC) Hypothyroidism, unspecified type Essential tremor Essential and other specified forms of tremor 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 Liver fibrosis 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 of alcohol Preoperative examination- Primary Preoperative examination, unspecified Cystocele, midline Uterovaginal prolapse Uterovaginal prolapse, unspecified Mixed incontinence Mixed incontinence urge and stress (male)(female) Rectocele Uterine prolapse Uterine prolapse without mention of vaginal wall prolapse Mixed stress and urge urinary incontinence Mixed incontinence urge and stress (male)(female) Urinary urgency Urgency of urination Urinary frequency Constipation due to outlet dysfunction Essential tremor Essential and other specified forms of tremor [id number] (obstructive sleep apnea) Obstructive sleep apnea (adult) (pediatric) Essential hypertension Unspecified essential hypertension Mild CAD Gastroesophageal reflux disease without esophagitis Esophageal reflux H/O gastric bypass Bariatric surgery status Liver fibrosis 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 of alcohol Class 2 obesity due to excess calories with body mass index (BMI) of 35.0 to 35.9 in adult, unspecified whether serious comorbidity present Type 2 diabetes mellitus with diabetic neuropathy, without long-term current use of insulin (HCC) Hypothyroidism, unspecified type Bipolar 1 disorder (HCC) Bipolar I disorder, most recent episode (or current) unspecified Fibromyalgia Mylagia and myositis, unspecified Pre-operative examination- Primary Preoperative examination, unspecified Colon cancer screening Special screening for malignant neoplasms, colon 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 H/O gastric bypass Bariatric surgery status 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 Essential tremor Essential and other specified forms of tremor Fibromyalgia Mylagia and myositis, unspecified Chronic nonintractable headache, unspecified headache type Neuropathy Mononeuritis of unspecified site Primary hypertension Unspecified essential hypertension Other hyperlipidemia [id number] (obstructive sleep apnea) Obstructive sleep apnea (adult) (pediatric) Liver fibrosis 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 of alcohol Type 2 diabetes mellitus with diabetic neuropathy, without long-term current use of insulin (HCC) Hypothyroidism, unspecified type Bipolar 1 disorder (HCC) Bipolar I disorder, most recent episode (or current) unspecified Former smoker Personal history of tobacco use, presenting hazards to health Class 2 obesity due to excess calories with body mass index (BMI) of 35.0 to 35.9 in adult, unspecified whether serious comorbidity present Non-melanoma skin cancer Unspecified malignant neoplasm of skin, site unspecified Pre-operative examination- Primary Preoperative examination, unspecified 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 Bipolar 1 disorder (HCC) Bipolar I disorder, most recent episode (or current) unspecified Chronic nonintractable headache, unspecified headache type 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 Type 2 diabetes mellitus with diabetic neuropathy, without long-term current use of insulin (HCC) Essential tremor Essential and other specified forms of tremor Fibromyalgia Mylagia and myositis, unspecified Former smoker Personal history of tobacco use, presenting hazards to health H/O gastric bypass Bariatric surgery status Primary hypertension Unspecified essential hypertension Other hyperlipidemia Hypothyroidism, unspecified type Liver fibrosis 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 of alcohol Neuropathy Mononeuritis of unspecified site Non-melanoma skin cancer Unspecified malignant neoplasm of skin, site unspecified [id number] (obstructive sleep apnea) Obstructive sleep apnea (adult) (pediatric) Class 2 obesity due to excess calories with body mass index (BMI) of 35.0 to 35.9 in adult, unspecified whether serious comorbidity present Tremor Abnormal involuntary movements [facility] Diagnosis Preoperative examination- Primary Preoperative examination, unspecified Acute pain of left shoulder Hypertension, unspecified type Other hyperlipidemia Type 2 diabetes mellitus with diabetic neuropathy, without long-term current use of insulin (HCC) Hypothyroidism, unspecified type Essential tremor Essential and other specified forms of tremor 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 Liver fibrosis 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 of alcohol Preoperative examination- Primary Preoperative examination, unspecified Cystocele, midline Uterovaginal prolapse Uterovaginal prolapse, unspecified Mixed incontinence Mixed incontinence urge and stress (male)(female) Rectocele Uterine prolapse Uterine prolapse without mention of vaginal wall prolapse Mixed stress and urge urinary incontinence Mixed incontinence urge and stress (male)(female) Urinary urgency Urgency of urination Urinary frequency Constipation due to outlet dysfunction Essential tremor Essential and other specified forms of tremor [id number] (obstructive sleep apnea) Obstructive sleep apnea (adult) (pediatric) Essential hypertension Unspecified essential hypertension Mild CAD Gastroesophageal reflux disease without esophagitis Esophageal reflux H/O gastric bypass Bariatric surgery status Liver fibrosis 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 of alcohol Class 2 obesity due to excess calories with body mass index (BMI) of 35.0 to 35.9 in adult, unspecified whether serious comorbidity present Type 2 diabetes mellitus with diabetic neuropathy, without long-term current use of insulin (HCC) Hypothyroidism, unspecified type Bipolar 1 disorder (HCC) Bipolar I disorder, most recent episode (or current) unspecified Fibromyalgia Mylagia and myositis, unspecified Pre-operative examination- Primary Preoperative examination, unspecified Colon cancer screening Special screening for malignant neoplasms, colon 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 H/O gastric bypass Bariatric surgery status 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 Essential tremor Essential and other specified forms of tremor Fibromyalgia Mylagia and myositis, unspecified Chronic nonintractable headache, unspecified headache type Neuropathy Mononeuritis of unspecified site Primary hypertension Unspecified essential hypertension Other hyperlipidemia [id number] (obstructive sleep apnea) Obstructive sleep apnea (adult) (pediatric) Liver fibrosis 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 of alcohol Type 2 diabetes mellitus with diabetic neuropathy, without long-term current use of insulin (HCC) Hypothyroidism, unspecified type Bipolar 1 disorder (HCC) Bipolar I disorder, most recent episode (or current) unspecified Former smoker Personal history of tobacco use, presenting hazards to health Class 2 obesity due to excess calories with body mass index (BMI) of 35.0 to 35.9 in adult, unspecified whether serious comorbidity present Non-melanoma skin cancer Unspecified malignant neoplasm of skin, site unspecified Pre-operative examination- Primary Preoperative examination, unspecified 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 Bipolar 1 disorder (HCC) Bipolar I disorder, most recent episode (or current) unspecified Chronic nonintractable headache, unspecified headache type 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 Type 2 diabetes mellitus with diabetic neuropathy, without long-term current use of insulin (HCC) Essential tremor Essential and other specified forms of tremor Fibromyalgia Mylagia and myositis, unspecified Former smoker Personal history of tobacco use, presenting hazards to health H/O gastric bypass Bariatric surgery status Primary hypertension Unspecified essential hypertension Other hyperlipidemia Hypothyroidism, unspecified type Liver fibrosis 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 of alcohol Neuropathy Mononeuritis of unspecified site Non-melanoma skin cancer Unspecified malignant neoplasm of skin, site unspecified [id number] (obstructive sleep apnea) Obstructive sleep apnea (adult) (pediatric) Class 2 obesity due to excess calories with body mass index (BMI) of 35.0 to 35.9 in adult, unspecified whether serious comorbidity present Tremor- Primary Abnormal involuntary movements Migraine without aura, intractable, with status migrainosus Migraine without aura, with intractable migraine, so stated, with status migrainosus [facility] Preoperative examination- Primary Preoperative examination, unspecified Acute pain of left shoulder Hypertension, unspecified type Other hyperlipidemia Type 2 diabetes mellitus with diabetic neuropathy, without long-term current use of insulin (HCC) Hypothyroidism, unspecified type Essential tremor Essential and other specified forms of tremor 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 Liver fibrosis 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 of alcohol Preoperative examination- Primary Preoperative examination, unspecified Cystocele, midline Uterovaginal prolapse Uterovaginal prolapse, unspecified Mixed incontinence Mixed incontinence urge and stress (male)(female) Rectocele Uterine prolapse Uterine prolapse without mention of vaginal wall prolapse Mixed stress and urge urinary incontinence Mixed incontinence urge and stress (male)(female) Urinary urgency Urgency of urination Urinary frequency Constipation due to outlet dysfunction Essential tremor Essential and other specified forms of tremor [id number] (obstructive sleep apnea) Obstructive sleep apnea (adult) (pediatric) Essential hypertension Unspecified essential hypertension Mild CAD Gastroesophageal reflux disease without esophagitis Esophageal reflux H/O gastric bypass Bariatric surgery status Liver fibrosis 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 of alcohol Class 2 obesity due to excess calories with body mass index (BMI) of 35.0 to 35.9 in adult, unspecified whether serious comorbidity present Type 2 diabetes mellitus with diabetic neuropathy, without long-term current use of insulin (HCC) Hypothyroidism, unspecified type Bipolar 1 disorder (HCC) Bipolar I disorder, most recent episode (or current) unspecified Fibromyalgia Mylagia and myositis, unspecified Pre-operative examination- Primary Preoperative examination, unspecified Colon cancer screening Special screening for malignant neoplasms, colon 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 H/O gastric bypass Bariatric surgery status 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 Essential tremor Essential and other specified forms of tremor Fibromyalgia Mylagia and myositis, unspecified Chronic nonintractable headache, unspecified headache type Neuropathy Mononeuritis of unspecified site Primary hypertension Unspecified essential hypertension Other hyperlipidemia [id number] (obstructive sleep apnea) Obstructive sleep apnea (adult) (pediatric) Liver fibrosis 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 of alcohol Type 2 diabetes mellitus with diabetic neuropathy, without long-term current use of insulin (HCC) Hypothyroidism, unspecified type Bipolar 1 disorder (HCC) Bipolar I disorder, most recent episode (or current) unspecified Former smoker Personal history of tobacco use, presenting hazards to health Class 2 obesity due to excess calories with body mass index (BMI) of 35.0 to 35.9 in adult, unspecified whether serious comorbidity present Non-melanoma skin cancer Unspecified malignant neoplasm of skin, site unspecified Pre-operative examination- Primary Preoperative examination, unspecified 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 Bipolar 1 disorder (HCC) Bipolar I disorder, most recent episode (or current) unspecified Chronic nonintractable headache, unspecified headache type 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 Type 2 diabetes mellitus with diabetic neuropathy, without long-term current use of insulin (HCC) Essential tremor Essential and other specified forms of tremor Fibromyalgia Mylagia and myositis, unspecified Former smoker Personal history of tobacco use, presenting hazards to health H/O gastric bypass Bariatric surgery status Primary hypertension Unspecified essential hypertension Other hyperlipidemia Hypothyroidism, unspecified type Liver fibrosis 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 of alcohol Neuropathy Mononeuritis of unspecified site Non-melanoma skin cancer Unspecified malignant neoplasm of skin, site unspecified [id number] (obstructive sleep apnea) Obstructive sleep apnea (adult) (pediatric) Class 2 obesity due to excess calories with body mass index (BMI) of 35.0 to 35.9 in adult, unspecified whether serious comorbidity present Sciatica, unspecified laterality [facility] Diagnosis Preoperative examination- Primary Preoperative examination, unspecified Acute pain of left shoulder Hypertension, unspecified type Other hyperlipidemia Type 2 diabetes mellitus with diabetic neuropathy, without long-term current use of insulin (HCC) Hypothyroidism, unspecified type Essential tremor Essential and other specified forms of tremor 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 Liver fibrosis 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 of alcohol Preoperative examination- Primary Preoperative examination, unspecified Cystocele, midline Uterovaginal prolapse Uterovaginal prolapse, unspecified Mixed incontinence Mixed incontinence urge and stress (male)(female) Rectocele Uterine prolapse Uterine prolapse without mention of vaginal wall prolapse Mixed stress and urge urinary incontinence Mixed incontinence urge and stress (male)(female) Urinary urgency Urgency of urination Urinary frequency Constipation due to outlet dysfunction Essential tremor Essential and other specified forms of tremor [id number] (obstructive sleep apnea) Obstructive sleep apnea (adult) (pediatric) Essential hypertension Unspecified essential hypertension Mild CAD Gastroesophageal reflux disease without esophagitis Esophageal reflux H/O gastric bypass Bariatric surgery status Liver fibrosis 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 of alcohol Class 2 obesity due to excess calories with body mass index (BMI) of 35.0 to 35.9 in adult, unspecified whether serious comorbidity present Type 2 diabetes mellitus with diabetic neuropathy, without long-term current use of insulin (HCC) Hypothyroidism, unspecified type Bipolar 1 disorder (HCC) Bipolar I disorder, most recent episode (or current) unspecified Fibromyalgia Mylagia and myositis, unspecified Pre-operative examination- Primary Preoperative examination, unspecified Colon cancer screening Special screening for malignant neoplasms, colon 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 H/O gastric bypass Bariatric surgery status 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 Essential tremor Essential and other specified forms of tremor Fibromyalgia Mylagia and myositis, unspecified Chronic nonintractable headache, unspecified headache type Neuropathy Mononeuritis of unspecified site Primary hypertension Unspecified essential hypertension Other hyperlipidemia [id number] (obstructive sleep apnea) Obstructive sleep apnea (adult) (pediatric) Liver fibrosis 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 of alcohol Type 2 diabetes mellitus with diabetic neuropathy, without long-term current use of insulin (HCC) Hypothyroidism, unspecified type Bipolar 1 disorder (HCC) Bipolar I disorder, most recent episode (or current) unspecified Former smoker Personal history of tobacco use, presenting hazards to health Class 2 obesity due to excess calories with body mass index (BMI) of 35.0 to 35.9 in adult, unspecified whether serious comorbidity present Non-melanoma skin cancer Unspecified malignant neoplasm of skin, site unspecified Pre-operative examination- Primary Preoperative examination, unspecified 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 Bipolar 1 disorder (HCC) Bipolar I disorder, most recent episode (or current) unspecified Chronic nonintractable headache, unspecified headache type 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 Type 2 diabetes mellitus with diabetic neuropathy, without long-term current use of insulin (HCC) Essential tremor Essential and other specified forms of tremor Fibromyalgia Mylagia and myositis, unspecified Former smoker Personal history of tobacco use, presenting hazards to health H/O gastric bypass Bariatric surgery status Primary hypertension Unspecified essential hypertension Other hyperlipidemia Hypothyroidism, unspecified type Liver fibrosis 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 of alcohol Neuropathy Mononeuritis of unspecified site Non-melanoma skin cancer Unspecified malignant neoplasm of skin, site unspecified [id number] (obstructive sleep apnea) Obstructive sleep apnea (adult) (pediatric) Class 2 obesity due to excess calories with body mass index (BMI) of 35.0 to 35.9 in adult, unspecified whether serious comorbidity present Encounter for screening mammogram for breast cancer [facility] Diagnosis Preoperative examination- Primary Preoperative examination, unspecified Acute pain of left shoulder Hypertension, unspecified type Other hyperlipidemia Type 2 diabetes mellitus with diabetic neuropathy, without long-term current use of insulin (HCC) Hypothyroidism, unspecified type Essential tremor Essential and other specified forms of tremor 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 Liver fibrosis 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 of alcohol Preoperative examination- Primary Preoperative examination, unspecified Cystocele, midline Uterovaginal prolapse Uterovaginal prolapse, unspecified Mixed incontinence Mixed incontinence urge and stress (male)(female) Rectocele Uterine prolapse Uterine prolapse without mention of vaginal wall prolapse Mixed stress and urge urinary incontinence Mixed incontinence urge and stress (male)(female) Urinary urgency Urgency of urination Urinary frequency Constipation due to outlet dysfunction Essential tremor Essential and other specified forms of tremor [id number] (obstructive sleep apnea) Obstructive sleep apnea (adult) (pediatric) Essential hypertension Unspecified essential hypertension Mild CAD Gastroesophageal reflux disease without esophagitis Esophageal reflux H/O gastric bypass Bariatric surgery status Liver fibrosis 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 of alcohol Class 2 obesity due to excess calories with body mass index (BMI) of 35.0 to 35.9 in adult, unspecified whether serious comorbidity present Type 2 diabetes mellitus with diabetic neuropathy, without long-term current use of insulin (HCC) Hypothyroidism, unspecified type Bipolar 1 disorder (HCC) Bipolar I disorder, most recent episode (or current) unspecified Fibromyalgia Mylagia and myositis, unspecified Pre-operative examination- Primary Preoperative examination, unspecified Colon cancer screening Special screening for malignant neoplasms, colon 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 H/O gastric bypass Bariatric surgery status 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 Essential tremor Essential and other specified forms of tremor Fibromyalgia Mylagia and myositis, unspecified Chronic nonintractable headache, unspecified headache type Neuropathy Mononeuritis of unspecified site Primary hypertension Unspecified essential hypertension Other hyperlipidemia [id number] (obstructive sleep apnea) Obstructive sleep apnea (adult) (pediatric) Liver fibrosis 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 of alcohol Type 2 diabetes mellitus with diabetic neuropathy, without long-term current use of insulin (HCC) Hypothyroidism, unspecified type Bipolar 1 disorder (HCC) Bipolar I disorder, most recent episode (or current) unspecified Former smoker Personal history of tobacco use, presenting hazards to health Class 2 obesity due to excess calories with body mass index (BMI) of 35.0 to 35.9 in adult, unspecified whether serious comorbidity present Non-melanoma skin cancer Unspecified malignant neoplasm of skin, site unspecified Pre-operative examination- Primary Preoperative examination, unspecified 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 Bipolar 1 disorder (HCC) Bipolar I disorder, most recent episode (or current) unspecified Chronic nonintractable headache, unspecified headache type 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 Type 2 diabetes mellitus with diabetic neuropathy, without long-term current use of insulin (HCC) Essential tremor Essential and other specified forms of tremor Fibromyalgia Mylagia and myositis, unspecified Former smoker Personal history of tobacco use, presenting hazards to health H/O gastric bypass Bariatric surgery status Primary hypertension Unspecified essential hypertension Other hyperlipidemia Hypothyroidism, unspecified type Liver fibrosis 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 of alcohol Neuropathy Mononeuritis of unspecified site Non-melanoma skin cancer Unspecified malignant neoplasm of skin, site unspecified [id number] (obstructive sleep apnea) Obstructive sleep apnea (adult) (pediatric) Class 2 obesity due to excess calories with body mass index (BMI) of 35.0 to 35.9 in adult, unspecified whether serious comorbidity present Cellulitis and abscess of toe of right foot- Primary [facility] Diagnosis Preoperative examination- Primary Preoperative examination, unspecified Acute pain of left shoulder Hypertension, unspecified type Other hyperlipidemia Type 2 diabetes mellitus with diabetic neuropathy, without long-term current use of insulin (HCC) Hypothyroidism, unspecified type Essential tremor Essential and other specified forms of tremor 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 Liver fibrosis 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 of alcohol Preoperative examination- Primary Preoperative examination, unspecified Cystocele, midline Uterovaginal prolapse Uterovaginal prolapse, unspecified Mixed incontinence Mixed incontinence urge and stress (male)(female) Rectocele Uterine prolapse Uterine prolapse without mention of vaginal wall prolapse Mixed stress and urge urinary incontinence Mixed incontinence urge and stress (male)(female) Urinary urgency Urgency of urination Urinary frequency Constipation due to outlet dysfunction Essential tremor Essential and other specified forms of tremor [id number] (obstructive sleep apnea) Obstructive sleep apnea (adult) (pediatric) Essential hypertension Unspecified essential hypertension Mild CAD Gastroesophageal reflux disease without esophagitis Esophageal reflux H/O gastric bypass Bariatric surgery status Liver fibrosis 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 of alcohol Class 2 obesity due to excess calories with body mass index (BMI) of 35.0 to 35.9 in adult, unspecified whether serious comorbidity present Type 2 diabetes mellitus with diabetic neuropathy, without long-term current use of insulin (HCC) Hypothyroidism, unspecified type Bipolar 1 disorder (HCC) Bipolar I disorder, most recent episode (or current) unspecified Fibromyalgia Mylagia and myositis, unspecified Pre-operative examination- Primary Preoperative examination, unspecified Colon cancer screening Special screening for malignant neoplasms, colon 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 H/O gastric bypass Bariatric surgery status 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 Essential tremor Essential and other specified forms of tremor Fibromyalgia Mylagia and myositis, unspecified Chronic nonintractable headache, unspecified headache type Neuropathy Mononeuritis of unspecified site Primary hypertension Unspecified essential hypertension Other hyperlipidemia [id number] (obstructive sleep apnea) Obstructive sleep apnea (adult) (pediatric) Liver fibrosis 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 of alcohol Type 2 diabetes mellitus with diabetic neuropathy, without long-term current use of insulin (HCC) Hypothyroidism, unspecified type Bipolar 1 disorder (HCC) Bipolar I disorder, most recent episode (or current) unspecified Former smoker Personal history of tobacco use, presenting hazards to health Class 2 obesity due to excess calories with body mass index (BMI) of 35.0 to 35.9 in adult, unspecified whether serious comorbidity present Non-melanoma skin cancer Unspecified malignant neoplasm of skin, site unspecified Pre-operative examination- Primary Preoperative examination, unspecified 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 Bipolar 1 disorder (HCC) Bipolar I disorder, most recent episode (or current) unspecified Chronic nonintractable headache, unspecified headache type 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 Type 2 diabetes mellitus with diabetic neuropathy, without long-term current use of insulin (HCC) Essential tremor Essential and other specified forms of tremor Fibromyalgia Mylagia and myositis, unspecified Former smoker Personal history of tobacco use, presenting hazards to health H/O gastric bypass Bariatric surgery status Primary hypertension Unspecified essential hypertension Other hyperlipidemia Hypothyroidism, unspecified type Liver fibrosis 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 of alcohol Neuropathy Mononeuritis of unspecified site Non-melanoma skin cancer Unspecified malignant neoplasm of skin, site unspecified [id number] (obstructive sleep apnea) Obstructive sleep apnea (adult) (pediatric) Class 2 obesity due to excess calories with body mass index (BMI) of 35.0 to 35.9 in adult, unspecified whether serious comorbidity present Hypothyroidism, unspecified type [facility] Diagnosis Preoperative examination- Primary Preoperative examination, unspecified Acute pain of left shoulder Hypertension, unspecified type Other hyperlipidemia Type 2 diabetes mellitus with diabetic neuropathy, without long-term current use of insulin (HCC) Hypothyroidism, unspecified type Essential tremor Essential and other specified forms of tremor 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 Liver fibrosis 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 of alcohol Preoperative examination- Primary Preoperative examination, unspecified Cystocele, midline Uterovaginal prolapse Uterovaginal prolapse, unspecified Mixed incontinence Mixed incontinence urge and stress (male)(female) Rectocele Uterine prolapse Uterine prolapse without mention of vaginal wall prolapse Mixed stress and urge urinary incontinence Mixed incontinence urge and stress (male)(female) Urinary urgency Urgency of urination Urinary frequency Constipation due to outlet dysfunction Essential tremor Essential and other specified forms of tremor [id number] (obstructive sleep apnea) Obstructive sleep apnea (adult) (pediatric) Essential hypertension Unspecified essential hypertension Mild CAD Gastroesophageal reflux disease without esophagitis Esophageal reflux H/O gastric bypass Bariatric surgery status Liver fibrosis 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 of alcohol Class 2 obesity due to excess calories with body mass index (BMI) of 35.0 to 35.9 in adult, unspecified whether serious comorbidity present Type 2 diabetes mellitus with diabetic neuropathy, without long-term current use of insulin (HCC) Hypothyroidism, unspecified type Bipolar 1 disorder (HCC) Bipolar I disorder, most recent episode (or current) unspecified Fibromyalgia Mylagia and myositis, unspecified Pre-operative examination- Primary Preoperative examination, unspecified Colon cancer screening Special screening for malignant neoplasms, colon 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 H/O gastric bypass Bariatric surgery status 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 Essential tremor Essential and other specified forms of tremor Fibromyalgia Mylagia and myositis, unspecified Chronic nonintractable headache, unspecified headache type Neuropathy Mononeuritis of unspecified site Primary hypertension Unspecified essential hypertension Other hyperlipidemia [id number] (obstructive sleep apnea) Obstructive sleep apnea (adult) (pediatric) Liver fibrosis 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 of alcohol Type 2 diabetes mellitus with diabetic neuropathy, without long-term current use of insulin (HCC) Hypothyroidism, unspecified type Bipolar 1 disorder (HCC) Bipolar I disorder, most recent episode (or current) unspecified Former smoker Personal history of tobacco use, presenting hazards to health Class 2 obesity due to excess calories with body mass index (BMI) of 35.0 to 35.9 in adult, unspecified whether serious comorbidity present Non-melanoma skin cancer Unspecified malignant neoplasm of skin, site unspecified Pre-operative examination- Primary Preoperative examination, unspecified 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 Bipolar 1 disorder (HCC) Bipolar I disorder, most recent episode (or current) unspecified Chronic nonintractable headache, unspecified headache type 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 Type 2 diabetes mellitus with diabetic neuropathy, without long-term current use of insulin (HCC) Essential tremor Essential and other specified forms of tremor Fibromyalgia Mylagia and myositis, unspecified Former smoker Personal history of tobacco use, presenting hazards to health H/O gastric bypass Bariatric surgery status Primary hypertension Unspecified essential hypertension Other hyperlipidemia Hypothyroidism, unspecified type Liver fibrosis 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 of alcohol Neuropathy Mononeuritis of unspecified site Non-melanoma skin cancer Unspecified malignant neoplasm of skin, site unspecified [id number] (obstructive sleep apnea) Obstructive sleep apnea (adult) (pediatric) Class 2 obesity due to excess calories with body mass index (BMI) of 35.0 to 35.9 in adult, unspecified whether serious comorbidity present Cellulitis and abscess of toe of right foot- Primary Open wound of toe, initial encounter Cellulitis and abscess of toe of right foot [facility] Diagnosis Preoperative examination- Primary Preoperative examination, unspecified Acute pain of left shoulder Hypertension, unspecified type Other hyperlipidemia Type 2 diabetes mellitus with diabetic neuropathy, without long-term current use of insulin (HCC) Hypothyroidism, unspecified type Essential tremor Essential and other specified forms of tremor 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 Liver fibrosis 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 of alcohol Preoperative examination- Primary Preoperative examination, unspecified Cystocele, midline Uterovaginal prolapse Uterovaginal prolapse, unspecified Mixed incontinence Mixed incontinence urge and stress (male)(female) Rectocele Uterine prolapse Uterine prolapse without mention of vaginal wall prolapse Mixed stress and urge urinary incontinence Mixed incontinence urge and stress (male)(female) Urinary urgency Urgency of urination Urinary frequency Constipation due to outlet dysfunction Essential tremor Essential and other specified forms of tremor [id number] (obstructive sleep apnea) Obstructive sleep apnea (adult) (pediatric) Essential hypertension Unspecified essential hypertension Mild CAD Gastroesophageal reflux disease without esophagitis Esophageal reflux H/O gastric bypass Bariatric surgery status Liver fibrosis 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 of alcohol Class 2 obesity due to excess calories with body mass index (BMI) of 35.0 to 35.9 in adult, unspecified whether serious comorbidity present Type 2 diabetes mellitus with diabetic neuropathy, without long-term current use of insulin (HCC) Hypothyroidism, unspecified type Bipolar 1 disorder (HCC) Bipolar I disorder, most recent episode (or current) unspecified Fibromyalgia Mylagia and myositis, unspecified Pre-operative examination- Primary Preoperative examination, unspecified Colon cancer screening Special screening for malignant neoplasms, colon 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 H/O gastric bypass Bariatric surgery status 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 Essential tremor Essential and other specified forms of tremor Fibromyalgia Mylagia and myositis, unspecified Chronic nonintractable headache, unspecified headache type Neuropathy Mononeuritis of unspecified site Primary hypertension Unspecified essential hypertension Other hyperlipidemia [id number] (obstructive sleep apnea) Obstructive sleep apnea (adult) (pediatric) Liver fibrosis 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 of alcohol Type 2 diabetes mellitus with diabetic neuropathy, without long-term current use of insulin (HCC) Hypothyroidism, unspecified type Bipolar 1 disorder (HCC) Bipolar I disorder, most recent episode (or current) unspecified Former smoker Personal history of tobacco use, presenting hazards to health Class 2 obesity due to excess calories with body mass index (BMI) of 35.0 to 35.9 in adult, unspecified whether serious comorbidity present Non-melanoma skin cancer Unspecified malignant neoplasm of skin, site unspecified Pre-operative examination- Primary Preoperative examination, unspecified 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 Bipolar 1 disorder (HCC) Bipolar I disorder, most recent episode (or current) unspecified Chronic nonintractable headache, unspecified headache type 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 Type 2 diabetes mellitus with diabetic neuropathy, without long-term current use of insulin (HCC) Essential tremor Essential and other specified forms of tremor Fibromyalgia Mylagia and myositis, unspecified Former smoker Personal history of tobacco use, presenting hazards to health H/O gastric bypass Bariatric surgery status Primary hypertension Unspecified essential hypertension Other hyperlipidemia Hypothyroidism, unspecified type Liver fibrosis 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 of alcohol Neuropathy Mononeuritis of unspecified site Non-melanoma skin cancer Unspecified malignant neoplasm of skin, site unspecified [id number] (obstructive sleep apnea) Obstructive sleep apnea (adult) (pediatric) Class 2 obesity due to excess calories with body mass index (BMI) of 35.0 to 35.9 in adult, unspecified whether serious comorbidity present Cellulitis and abscess of toe of right foot [facility] Preoperative examination- Primary Preoperative examination, unspecified Acute pain of left shoulder Hypertension, unspecified type Other hyperlipidemia Type 2 diabetes mellitus with diabetic neuropathy, without long-term current use of insulin (HCC) Hypothyroidism, unspecified type Essential tremor Essential and other specified forms of tremor 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 Liver fibrosis 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 of alcohol Preoperative examination- Primary Preoperative examination, unspecified Cystocele, midline Uterovaginal prolapse Uterovaginal prolapse, unspecified Mixed incontinence Mixed incontinence urge and stress (male)(female) Rectocele Uterine prolapse Uterine prolapse without mention of vaginal wall prolapse Mixed stress and urge urinary incontinence Mixed incontinence urge and stress (male)(female) Urinary urgency Urgency of urination Urinary frequency Constipation due to outlet dysfunction Essential tremor Essential and other specified forms of tremor [id number] (obstructive sleep apnea) Obstructive sleep apnea (adult) (pediatric) Essential hypertension Unspecified essential hypertension Mild CAD Gastroesophageal reflux disease without esophagitis Esophageal reflux H/O gastric bypass Bariatric surgery status Liver fibrosis 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 of alcohol Class 2 obesity due to excess calories with body mass index (BMI) of 35.0 to 35.9 in adult, unspecified whether serious comorbidity present Type 2 diabetes mellitus with diabetic neuropathy, without long-term current use of insulin (HCC) Hypothyroidism, unspecified type Bipolar 1 disorder (HCC) Bipolar I disorder, most recent episode (or current) unspecified Fibromyalgia Mylagia and myositis, unspecified Pre-operative examination- Primary Preoperative examination, unspecified Colon cancer screening Special screening for malignant neoplasms, colon 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 H/O gastric bypass Bariatric surgery status 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 Essential tremor Essential and other specified forms of tremor Fibromyalgia Mylagia and myositis, unspecified Chronic nonintractable headache, unspecified headache type Neuropathy Mononeuritis of unspecified site Primary hypertension Unspecified essential hypertension Other hyperlipidemia [id number] (obstructive sleep apnea) Obstructive sleep apnea (adult) (pediatric) Liver fibrosis 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 of alcohol Type 2 diabetes mellitus with diabetic neuropathy, without long-term current use of insulin (HCC) Hypothyroidism, unspecified type Bipolar 1 disorder (HCC) Bipolar I disorder, most recent episode (or current) unspecified Former smoker Personal history of tobacco use, presenting hazards to health Class 2 obesity due to excess calories with body mass index (BMI) of 35.0 to 35.9 in adult, unspecified whether serious comorbidity present Non-melanoma skin cancer Unspecified malignant neoplasm of skin, site unspecified Pre-operative examination- Primary Preoperative examination, unspecified 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 Bipolar 1 disorder (HCC) Bipolar I disorder, most recent episode (or current) unspecified Chronic nonintractable headache, unspecified headache type 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 Type 2 diabetes mellitus with diabetic neuropathy, without long-term current use of insulin (HCC) Essential tremor Essential and other specified forms of tremor Fibromyalgia Mylagia and myositis, unspecified Former smoker Personal history of tobacco use, presenting hazards to health H/O gastric bypass Bariatric surgery status Primary hypertension Unspecified essential hypertension Other hyperlipidemia Hypothyroidism, unspecified type Liver fibrosis 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 of alcohol Neuropathy Mononeuritis of unspecified site Non-melanoma skin cancer Unspecified malignant neoplasm of skin, site unspecified [id number] (obstructive sleep apnea) Obstructive sleep apnea (adult) (pediatric) Class 2 obesity due to excess calories with body mass index (BMI) of 35.0 to 35.9 in adult, unspecified whether serious comorbidity present Powers's esophagus with dysplasia Powers's esophagus [facility] Diagnosis Preoperative examination- Primary Preoperative examination, unspecified Acute pain of left shoulder Hypertension, unspecified type Other hyperlipidemia Type 2 diabetes mellitus with diabetic neuropathy, without long-term current use of insulin (HCC) Hypothyroidism, unspecified type Essential tremor Essential and other specified forms of tremor 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 Liver fibrosis 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 of alcohol Preoperative examination- Primary Preoperative examination, unspecified Cystocele, midline Uterovaginal prolapse Uterovaginal prolapse, unspecified Mixed incontinence Mixed incontinence urge and stress (male)(female) Rectocele Uterine prolapse Uterine prolapse without mention of vaginal wall prolapse Mixed stress and urge urinary incontinence Mixed incontinence urge and stress (male)(female) Urinary urgency Urgency of urination Urinary frequency Constipation due to outlet dysfunction Essential tremor Essential and other specified forms of tremor [id number] (obstructive sleep apnea) Obstructive sleep apnea (adult) (pediatric) Essential hypertension Unspecified essential hypertension Mild CAD Gastroesophageal reflux disease without esophagitis Esophageal reflux H/O gastric bypass Bariatric surgery status Liver fibrosis 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 of alcohol Class 2 obesity due to excess calories with body mass index (BMI) of 35.0 to 35.9 in adult, unspecified whether serious comorbidity present Type 2 diabetes mellitus with diabetic neuropathy, without long-term current use of insulin (HCC) Hypothyroidism, unspecified type Bipolar 1 disorder (HCC) Bipolar I disorder, most recent episode (or current) unspecified Fibromyalgia Mylagia and myositis, unspecified Pre-operative examination- Primary Preoperative examination, unspecified Colon cancer screening Special screening for malignant neoplasms, colon 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 H/O gastric bypass Bariatric surgery status 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 Essential tremor Essential and other specified forms of tremor Fibromyalgia Mylagia and myositis, unspecified Chronic nonintractable headache, unspecified headache type Neuropathy Mononeuritis of unspecified site Primary hypertension Unspecified essential hypertension Other hyperlipidemia [id number] (obstructive sleep apnea) Obstructive sleep apnea (adult) (pediatric) Liver fibrosis 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 of alcohol Type 2 diabetes mellitus with diabetic neuropathy, without long-term current use of insulin (HCC) Hypothyroidism, unspecified type Bipolar 1 disorder (HCC) Bipolar I disorder, most recent episode (or current) unspecified Former smoker Personal history of tobacco use, presenting hazards to health Class 2 obesity due to excess calories with body mass index (BMI) of 35.0 to 35.9 in adult, unspecified whether serious comorbidity present Non-melanoma skin cancer Unspecified malignant neoplasm of skin, site unspecified Pre-operative examination- Primary Preoperative examination, unspecified 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 Bipolar 1 disorder (HCC) Bipolar I disorder, most recent episode (or current) unspecified Chronic nonintractable headache, unspecified headache type 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 Type 2 diabetes mellitus with diabetic neuropathy, without long-term current use of insulin (HCC) Essential tremor Essential and other specified forms of tremor Fibromyalgia Mylagia and myositis, unspecified Former smoker Personal history of tobacco use, presenting hazards to health H/O gastric bypass Bariatric surgery status Primary hypertension Unspecified essential hypertension Other hyperlipidemia Hypothyroidism, unspecified type Liver fibrosis 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 of alcohol Neuropathy Mononeuritis of unspecified site Non-melanoma skin cancer Unspecified malignant neoplasm of skin, site unspecified [id number] (obstructive sleep apnea) Obstructive sleep apnea (adult) (pediatric) Class 2 obesity due to excess calories with body mass index (BMI) of 35.0 to 35.9 in adult, unspecified whether serious comorbidity present Closed displaced fracture of phalanx of right great toe, unspecified phalanx, initial encounter- Primary [facility] Diagnosis Preoperative examination- Primary Preoperative examination, unspecified Acute pain of left shoulder Hypertension, unspecified type Other hyperlipidemia Type 2 diabetes mellitus with diabetic neuropathy, without long-term current use of insulin (HCC) Hypothyroidism, unspecified type Essential tremor Essential and other specified forms of tremor 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 Liver fibrosis 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 of alcohol Preoperative examination- Primary Preoperative examination, unspecified Cystocele, midline Uterovaginal prolapse Uterovaginal prolapse, unspecified Mixed incontinence Mixed incontinence urge and stress (male)(female) Rectocele Uterine prolapse Uterine prolapse without mention of vaginal wall prolapse Mixed stress and urge urinary incontinence Mixed incontinence urge and stress (male)(female) Urinary urgency Urgency of urination Urinary frequency Constipation due to outlet dysfunction Essential tremor Essential and other specified forms of tremor [id number] (obstructive sleep apnea) Obstructive sleep apnea (adult) (pediatric) Essential hypertension Unspecified essential hypertension Mild CAD Gastroesophageal reflux disease without esophagitis Esophageal reflux H/O gastric bypass Bariatric surgery status Liver fibrosis 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 of alcohol Class 2 obesity due to excess calories with body mass index (BMI) of 35.0 to 35.9 in adult, unspecified whether serious comorbidity present Type 2 diabetes mellitus with diabetic neuropathy, without long-term current use of insulin (HCC) Hypothyroidism, unspecified type Bipolar 1 disorder (HCC) Bipolar I disorder, most recent episode (or current) unspecified Fibromyalgia Mylagia and myositis, unspecified Pre-operative examination- Primary Preoperative examination, unspecified Colon cancer screening Special screening for malignant neoplasms, colon 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 H/O gastric bypass Bariatric surgery status 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 Essential tremor Essential and other specified forms of tremor Fibromyalgia Mylagia and myositis, unspecified Chronic nonintractable headache, unspecified headache type Neuropathy Mononeuritis of unspecified site Primary hypertension Unspecified essential hypertension Other hyperlipidemia KRZYSZTOF (obstructive sleep apnea) Obstructive sleep apnea (adult) (pediatric) Liver fibrosis 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 of alcohol Type 2 diabetes mellitus with diabetic neuropathy, without long-term current use of insulin (HCC) Hypothyroidism, unspecified type Bipolar 1 disorder (HCC) Bipolar I disorder, most recent episode (or current) unspecified Former smoker Personal history of tobacco use, presenting hazards to health Class 2 obesity due to excess calories with body mass index (BMI) of 35.0 to 35.9 in adult, unspecified whether serious comorbidity present Non-melanoma skin cancer Unspecified malignant neoplasm of skin, site unspecified Pre-operative examination- Primary Preoperative examination, unspecified 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 Bipolar 1 disorder (HCC) Bipolar I disorder, most recent episode (or current) unspecified Chronic nonintractable headache, unspecified headache type 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 Type 2 diabetes mellitus with diabetic neuropathy, without long-term current use of insulin (HCC) Essential tremor Essential and other specified forms of tremor Fibromyalgia Mylagia and myositis, unspecified Former smoker Personal history of tobacco use, presenting hazards to health H/O gastric bypass Bariatric surgery status Primary hypertension Unspecified essential hypertension Other hyperlipidemia Hypothyroidism, unspecified type Liver fibrosis 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 of alcohol Neuropathy Mononeuritis of unspecified site Non-melanoma skin cancer Unspecified malignant neoplasm of skin, site unspecified [id number] (obstructive sleep apnea) Obstructive sleep apnea (adult) (pediatric) Class 2 obesity due to excess calories with body mass index (BMI) of 35.0 to 35.9 in adult, unspecified whether serious comorbidity present MSSA (methicillin susceptible Staphylococcus aureus) infection [A49.01]- Primary Methicillin susceptible Staphylococcus aureus in conditions classified elsewhere and of unspecified site [facility] Diagnosis Preoperative examination- Primary Preoperative examination, unspecified Acute pain of left shoulder Hypertension, unspecified type Other hyperlipidemia Type 2 diabetes mellitus with diabetic neuropathy, without long-term current use of insulin (HCC) Hypothyroidism, unspecified type Essential tremor Essential and other specified forms of tremor 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 Liver fibrosis 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 of alcohol Preoperative examination- Primary Preoperative examination, unspecified Cystocele, midline Uterovaginal prolapse Uterovaginal prolapse, unspecified Mixed incontinence Mixed incontinence urge and stress (male)(female) Rectocele Uterine prolapse Uterine prolapse without mention of vaginal wall prolapse Mixed stress and urge urinary incontinence Mixed incontinence urge and stress (male)(female) Urinary urgency Urgency of urination Urinary frequency Constipation due to outlet dysfunction Essential tremor Essential and other specified forms of tremor [id number] (obstructive sleep apnea) Obstructive sleep apnea (adult) (pediatric) Essential hypertension Unspecified essential hypertension Mild CAD Gastroesophageal reflux disease without esophagitis Esophageal reflux H/O gastric bypass Bariatric surgery status Liver fibrosis 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 of alcohol Class 2 obesity due to excess calories with body mass index (BMI) of 35.0 to 35.9 in adult, unspecified whether serious comorbidity present Type 2 diabetes mellitus with diabetic neuropathy, without long-term current use of insulin (HCC) Hypothyroidism, unspecified type Bipolar 1 disorder (HCC) Bipolar I disorder, most recent episode (or current) unspecified Fibromyalgia Mylagia and myositis, unspecified Pre-operative examination- Primary Preoperative examination, unspecified Colon cancer screening Special screening for malignant neoplasms, colon 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 H/O gastric bypass Bariatric surgery status 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 Essential tremor Essential and other specified forms of tremor Fibromyalgia Mylagia and myositis, unspecified Chronic nonintractable headache, unspecified headache type Neuropathy Mononeuritis of unspecified site Primary hypertension Unspecified essential hypertension Other hyperlipidemia KRZYSZTOF (obstructive sleep apnea) Obstructive sleep apnea (adult) (pediatric) Liver fibrosis 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 of alcohol Type 2 diabetes mellitus with diabetic neuropathy, without long-term current use of insulin (HCC) Hypothyroidism, unspecified type Bipolar 1 disorder (HCC) Bipolar I disorder, most recent episode (or current) unspecified Former smoker Personal history of tobacco use, presenting hazards to health Class 2 obesity due to excess calories with body mass index (BMI) of 35.0 to 35.9 in adult, unspecified whether serious comorbidity present Non-melanoma skin cancer Unspecified malignant neoplasm of skin, site unspecified Pre-operative examination- Primary Preoperative examination, unspecified 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 Bipolar 1 disorder (HCC) Bipolar I disorder, most recent episode (or current) unspecified Chronic nonintractable headache, unspecified headache type 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 Type 2 diabetes mellitus with diabetic neuropathy, without long-term current use of insulin (HCC) Essential tremor Essential and other specified forms of tremor Fibromyalgia Mylagia and myositis, unspecified Former smoker Personal history of tobacco use, presenting hazards to health H/O gastric bypass Bariatric surgery status Primary hypertension Unspecified essential hypertension Other hyperlipidemia Hypothyroidism, unspecified type Liver fibrosis 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 of alcohol Neuropathy Mononeuritis of unspecified site Non-melanoma skin cancer Unspecified malignant neoplasm of skin, site unspecified [id number] (obstructive sleep apnea) Obstructive sleep apnea (adult) (pediatric) Class 2 obesity due to excess calories with body mass index (BMI) of 35.0 to 35.9 in adult, unspecified whether serious comorbidity present Fibromyalgia Mylagia and myositis, unspecified [facility] Diagnosis Preoperative examination- Primary Preoperative examination, unspecified Acute pain of left shoulder Hypertension, unspecified type Other hyperlipidemia Type 2 diabetes mellitus with diabetic neuropathy, without long-term current use of insulin (HCC) Hypothyroidism, unspecified type Essential tremor Essential and other specified forms of tremor 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 Liver fibrosis 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 of alcohol Preoperative examination- Primary Preoperative examination, unspecified Cystocele, midline Uterovaginal prolapse Uterovaginal prolapse, unspecified Mixed incontinence Mixed incontinence urge and stress (male)(female) Rectocele Uterine prolapse Uterine prolapse without mention of vaginal wall prolapse Mixed stress and urge urinary incontinence Mixed incontinence urge and stress (male)(female) Urinary urgency Urgency of urination Urinary frequency Constipation due to outlet dysfunction Essential tremor Essential and other specified forms of tremor [id number] (obstructive sleep apnea) Obstructive sleep apnea (adult) (pediatric) Essential hypertension Unspecified essential hypertension Mild CAD Gastroesophageal reflux disease without esophagitis Esophageal reflux H/O gastric bypass Bariatric surgery status Liver fibrosis 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 of alcohol Class 2 obesity due to excess calories with body mass index (BMI) of 35.0 to 35.9 in adult, unspecified whether serious comorbidity present Type 2 diabetes mellitus with diabetic neuropathy, without long-term current use of insulin (HCC) Hypothyroidism, unspecified type Bipolar 1 disorder (HCC) Bipolar I disorder, most recent episode (or current) unspecified Fibromyalgia Mylagia and myositis, unspecified Pre-operative examination- Primary Preoperative examination, unspecified Colon cancer screening Special screening for malignant neoplasms, colon 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 H/O gastric bypass Bariatric surgery status 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 Essential tremor Essential and other specified forms of tremor Fibromyalgia Mylagia and myositis, unspecified Chronic nonintractable headache, unspecified headache type Neuropathy Mononeuritis of unspecified site Primary hypertension Unspecified essential hypertension Other hyperlipidemia KRZYSZTOF (obstructive sleep apnea) Obstructive sleep apnea (adult) (pediatric) Liver fibrosis 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 of alcohol Type 2 diabetes mellitus with diabetic neuropathy, without long-term current use of insulin (HCC) Hypothyroidism, unspecified type Bipolar 1 disorder (HCC) Bipolar I disorder, most recent episode (or current) unspecified Former smoker Personal history of tobacco use, presenting hazards to health Class 2 obesity due to excess calories with body mass index (BMI) of 35.0 to 35.9 in adult, unspecified whether serious comorbidity present Non-melanoma skin cancer Unspecified malignant neoplasm of skin, site unspecified Pre-operative examination- Primary Preoperative examination, unspecified 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 Bipolar 1 disorder (HCC) Bipolar I disorder, most recent episode (or current) unspecified Chronic nonintractable headache, unspecified headache type 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 Type 2 diabetes mellitus with diabetic neuropathy, without long-term current use of insulin (HCC) Essential tremor Essential and other specified forms of tremor Fibromyalgia Mylagia and myositis, unspecified Former smoker Personal history of tobacco use, presenting hazards to health H/O gastric bypass Bariatric surgery status Primary hypertension Unspecified essential hypertension Other hyperlipidemia Hypothyroidism, unspecified type Liver fibrosis 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 of alcohol Neuropathy Mononeuritis of unspecified site Non-melanoma skin cancer Unspecified malignant neoplasm of skin, site unspecified [id number] (obstructive sleep apnea) Obstructive sleep apnea (adult) (pediatric) Class 2 obesity due to excess calories with body mass index (BMI) of 35.0 to 35.9 in adult, unspecified whether serious comorbidity present Closed displaced fracture of phalanx of right great toe, unspecified phalanx, initial encounter [facility] Preoperative examination- Primary Preoperative examination, unspecified Acute pain of left shoulder Hypertension, unspecified type Other hyperlipidemia Type 2 diabetes mellitus with diabetic neuropathy, without long-term current use of insulin (HCC) Hypothyroidism, unspecified type Essential tremor Essential and other specified forms of tremor 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 Liver fibrosis 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 of alcohol Preoperative examination- Primary Preoperative examination, unspecified Cystocele, midline Uterovaginal prolapse Uterovaginal prolapse, unspecified Mixed incontinence Mixed incontinence urge and stress (male)(female) Rectocele Uterine prolapse Uterine prolapse without mention of vaginal wall prolapse Mixed stress and urge urinary incontinence Mixed incontinence urge and stress (male)(female) Urinary urgency Urgency of urination Urinary frequency Constipation due to outlet dysfunction Essential tremor Essential and other specified forms of tremor [id number] (obstructive sleep apnea) Obstructive sleep apnea (adult) (pediatric) Essential hypertension Unspecified essential hypertension Mild CAD Gastroesophageal reflux disease without esophagitis Esophageal reflux H/O gastric bypass Bariatric surgery status Liver fibrosis 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 of alcohol Class 2 obesity due to excess calories with body mass index (BMI) of 35.0 to 35.9 in adult, unspecified whether serious comorbidity present Type 2 diabetes mellitus with diabetic neuropathy, without long-term current use of insulin (HCC) Hypothyroidism, unspecified type Bipolar 1 disorder (HCC) Bipolar I disorder, most recent episode (or current) unspecified Fibromyalgia Mylagia and myositis, unspecified Pre-operative examination- Primary Preoperative examination, unspecified Colon cancer screening Special screening for malignant neoplasms, colon 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 H/O gastric bypass Bariatric surgery status 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 Essential tremor Essential and other specified forms of tremor Fibromyalgia Mylagia and myositis, unspecified Chronic nonintractable headache, unspecified headache type Neuropathy Mononeuritis of unspecified site Primary hypertension Unspecified essential hypertension Other hyperlipidemia [id number] (obstructive sleep apnea) Obstructive sleep apnea (adult) (pediatric) Liver fibrosis 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 of alcohol Type 2 diabetes mellitus with diabetic neuropathy, without long-term current use of insulin (HCC) Hypothyroidism, unspecified type Bipolar 1 disorder (HCC) Bipolar I disorder, most recent episode (or current) unspecified Former smoker Personal history of tobacco use, presenting hazards to health Class 2 obesity due to excess calories with body mass index (BMI) of 35.0 to 35.9 in adult, unspecified whether serious comorbidity present Non-melanoma skin cancer Unspecified malignant neoplasm of skin, site unspecified Pre-operative examination- Primary Preoperative examination, unspecified 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 Bipolar 1 disorder (HCC) Bipolar I disorder, most recent episode (or current) unspecified Chronic nonintractable headache, unspecified headache type 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 Type 2 diabetes mellitus with diabetic neuropathy, without long-term current use of insulin (HCC) Essential tremor Essential and other specified forms of tremor Fibromyalgia Mylagia and myositis, unspecified Former smoker Personal history of tobacco use, presenting hazards to health H/O gastric bypass Bariatric surgery status Primary hypertension Unspecified essential hypertension Other hyperlipidemia Hypothyroidism, unspecified type Liver fibrosis 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 of alcohol Neuropathy Mononeuritis of unspecified site Non-melanoma skin cancer Unspecified malignant neoplasm of skin, site unspecified [id number] (obstructive sleep apnea) Obstructive sleep apnea (adult) (pediatric) Class 2 obesity due to excess calories with body mass index (BMI) of 35.0 to 35.9 in adult, unspecified whether serious comorbidity present Closed nondisplaced fracture of phalanx of right great toe, unspecified phalanx, initial encounter- Primary Open wound of toe, initial encounter Ulcer of toe of left foot, limited to breakdown of skin (HCC) [facility] Diagnosis Preoperative examination- Primary Preoperative examination, unspecified Acute pain of left shoulder Hypertension, unspecified type Other hyperlipidemia Type 2 diabetes mellitus with diabetic neuropathy, without long-term current use of insulin (HCC) Hypothyroidism, unspecified type Essential tremor Essential and other specified forms of tremor 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 Liver fibrosis 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 of alcohol Preoperative examination- Primary Preoperative examination, unspecified Cystocele, midline Uterovaginal prolapse Uterovaginal prolapse, unspecified Mixed incontinence Mixed incontinence urge and stress (male)(female) Rectocele Uterine prolapse Uterine prolapse without mention of vaginal wall prolapse Mixed stress and urge urinary incontinence Mixed incontinence urge and stress (male)(female) Urinary urgency Urgency of urination Urinary frequency Constipation due to outlet dysfunction Essential tremor Essential and other specified forms of tremor [id number] (obstructive sleep apnea) Obstructive sleep apnea (adult) (pediatric) Essential hypertension Unspecified essential hypertension Mild CAD Gastroesophageal reflux disease without esophagitis Esophageal reflux H/O gastric bypass Bariatric surgery status Liver fibrosis 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 of alcohol Class 2 obesity due to excess calories with body mass index (BMI) of 35.0 to 35.9 in adult, unspecified whether serious comorbidity present Type 2 diabetes mellitus with diabetic neuropathy, without long-term current use of insulin (HCC) Hypothyroidism, unspecified type Bipolar 1 disorder (HCC) Bipolar I disorder, most recent episode (or current) unspecified Fibromyalgia Mylagia and myositis, unspecified Pre-operative examination- Primary Preoperative examination, unspecified Colon cancer screening Special screening for malignant neoplasms, colon 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 H/O gastric bypass Bariatric surgery status 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 Essential tremor Essential and other specified forms of tremor Fibromyalgia Mylagia and myositis, unspecified Chronic nonintractable headache, unspecified headache type Neuropathy Mononeuritis of unspecified site Primary hypertension Unspecified essential hypertension Other hyperlipidemia [id number] (obstructive sleep apnea) Obstructive sleep apnea (adult) (pediatric) Liver fibrosis 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 of alcohol Type 2 diabetes mellitus with diabetic neuropathy, without long-term current use of insulin (HCC) Hypothyroidism, unspecified type Bipolar 1 disorder (HCC) Bipolar I disorder, most recent episode (or current) unspecified Former smoker Personal history of tobacco use, presenting hazards to health Class 2 obesity due to excess calories with body mass index (BMI) of 35.0 to 35.9 in adult, unspecified whether serious comorbidity present Non-melanoma skin cancer Unspecified malignant neoplasm of skin, site unspecified Pre-operative examination- Primary Preoperative examination, unspecified 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 Bipolar 1 disorder (HCC) Bipolar I disorder, most recent episode (or current) unspecified Chronic nonintractable headache, unspecified headache type 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 Type 2 diabetes mellitus with diabetic neuropathy, without long-term current use of insulin (HCC) Essential tremor Essential and other specified forms of tremor Fibromyalgia Mylagia and myositis, unspecified Former smoker Personal history of tobacco use, presenting hazards to health H/O gastric bypass Bariatric surgery status Primary hypertension Unspecified essential hypertension Other hyperlipidemia Hypothyroidism, unspecified type Liver fibrosis 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 of alcohol Neuropathy Mononeuritis of unspecified site Non-melanoma skin cancer Unspecified malignant neoplasm of skin, site unspecified [id number] (obstructive sleep apnea) Obstructive sleep apnea (adult) (pediatric) Class 2 obesity due to excess calories with body mass index (BMI) of 35.0 to 35.9 in adult, unspecified whether serious comorbidity present Type 2 diabetes mellitus with diabetic neuropathy, without long-term current use of insulin (HCC) Sciatica, unspecified laterality [facility] Diagnosis Preoperative examination- Primary Preoperative examination, unspecified Acute pain of left shoulder Hypertension, unspecified type Other hyperlipidemia Type 2 diabetes mellitus with diabetic neuropathy, without long-term current use of insulin (HCC) Hypothyroidism, unspecified type Essential tremor Essential and other specified forms of tremor 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 Liver fibrosis 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 of alcohol Preoperative examination- Primary Preoperative examination, unspecified Cystocele, midline Uterovaginal prolapse Uterovaginal prolapse, unspecified Mixed incontinence Mixed incontinence urge and stress (male)(female) Rectocele Uterine prolapse Uterine prolapse without mention of vaginal wall prolapse Mixed stress and urge urinary incontinence Mixed incontinence urge and stress (male)(female) Urinary urgency Urgency of urination Urinary frequency Constipation due to outlet dysfunction Essential tremor Essential and other specified forms of tremor [id number] (obstructive sleep apnea) Obstructive sleep apnea (adult) (pediatric) Essential hypertension Unspecified essential hypertension Mild CAD Gastroesophageal reflux disease without esophagitis Esophageal reflux H/O gastric bypass Bariatric surgery status Liver fibrosis 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 of alcohol Class 2 obesity due to excess calories with body mass index (BMI) of 35.0 to 35.9 in adult, unspecified whether serious comorbidity present Type 2 diabetes mellitus with diabetic neuropathy, without long-term current use of insulin (HCC) Hypothyroidism, unspecified type Bipolar 1 disorder (HCC) Bipolar I disorder, most recent episode (or current) unspecified Fibromyalgia Mylagia and myositis, unspecified Pre-operative examination- Primary Preoperative examination, unspecified Colon cancer screening Special screening for malignant neoplasms, colon 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 H/O gastric bypass Bariatric surgery status 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 Essential tremor Essential and other specified forms of tremor Fibromyalgia Mylagia and myositis, unspecified Chronic nonintractable headache, unspecified headache type Neuropathy Mononeuritis of unspecified site Primary hypertension Unspecified essential hypertension Other hyperlipidemia [id number] (obstructive sleep apnea) Obstructive sleep apnea (adult) (pediatric) Liver fibrosis 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 of alcohol Type 2 diabetes mellitus with diabetic neuropathy, without long-term current use of insulin (HCC) Hypothyroidism, unspecified type Bipolar 1 disorder (HCC) Bipolar I disorder, most recent episode (or current) unspecified Former smoker Personal history of tobacco use, presenting hazards to health Class 2 obesity due to excess calories with body mass index (BMI) of 35.0 to 35.9 in adult, unspecified whether serious comorbidity present Non-melanoma skin cancer Unspecified malignant neoplasm of skin, site unspecified Pre-operative examination- Primary Preoperative examination, unspecified 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 Bipolar 1 disorder (HCC) Bipolar I disorder, most recent episode (or current) unspecified Chronic nonintractable headache, unspecified headache type 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 Type 2 diabetes mellitus with diabetic neuropathy, without long-term current use of insulin (HCC) Essential tremor Essential and other specified forms of tremor Fibromyalgia Mylagia and myositis, unspecified Former smoker Personal history of tobacco use, presenting hazards to health H/O gastric bypass Bariatric surgery status Primary hypertension Unspecified essential hypertension Other hyperlipidemia Hypothyroidism, unspecified type Liver fibrosis 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 of alcohol Neuropathy Mononeuritis of unspecified site Non-melanoma skin cancer Unspecified malignant neoplasm of skin, site unspecified [id number] (obstructive sleep apnea) Obstructive sleep apnea (adult) (pediatric) Class 2 obesity due to excess calories with body mass index (BMI) of 35.0 to 35.9 in adult, unspecified whether serious comorbidity present Type 2 diabetes mellitus with diabetic neuropathy, without long-term current use of insulin (HCC) [facility] Diagnosis Preoperative examination- Primary Preoperative examination, unspecified Acute pain of left shoulder Hypertension, unspecified type Other hyperlipidemia Type 2 diabetes mellitus with diabetic neuropathy, without long-term current use of insulin (HCC) Hypothyroidism, unspecified type Essential tremor Essential and other specified forms of tremor 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 Liver fibrosis 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 of alcohol Preoperative examination- Primary Preoperative examination, unspecified Cystocele, midline Uterovaginal prolapse Uterovaginal prolapse, unspecified Mixed incontinence Mixed incontinence urge and stress (male)(female) Rectocele Uterine prolapse Uterine prolapse without mention of vaginal wall prolapse Mixed stress and urge urinary incontinence Mixed incontinence urge and stress (male)(female) Urinary urgency Urgency of urination Urinary frequency Constipation due to outlet dysfunction Essential tremor Essential and other specified forms of tremor [id number] (obstructive sleep apnea) Obstructive sleep apnea (adult) (pediatric) Essential hypertension Unspecified essential hypertension Mild CAD Gastroesophageal reflux disease without esophagitis Esophageal reflux H/O gastric bypass Bariatric surgery status Liver fibrosis 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 of alcohol Class 2 obesity due to excess calories with body mass index (BMI) of 35.0 to 35.9 in adult, unspecified whether serious comorbidity present Type 2 diabetes mellitus with diabetic neuropathy, without long-term current use of insulin (HCC) Hypothyroidism, unspecified type Bipolar 1 disorder (HCC) Bipolar I disorder, most recent episode (or current) unspecified Fibromyalgia Mylagia and myositis, unspecified Pre-operative examination- Primary Preoperative examination, unspecified Colon cancer screening Special screening for malignant neoplasms, colon 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 H/O gastric bypass Bariatric surgery status 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 Essential tremor Essential and other specified forms of tremor Fibromyalgia Mylagia and myositis, unspecified Chronic nonintractable headache, unspecified headache type Neuropathy Mononeuritis of unspecified site Primary hypertension Unspecified essential hypertension Other hyperlipidemia [id number] (obstructive sleep apnea) Obstructive sleep apnea (adult) (pediatric) Liver fibrosis 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 of alcohol Type 2 diabetes mellitus with diabetic neuropathy, without long-term current use of insulin (HCC) Hypothyroidism, unspecified type Bipolar 1 disorder (HCC) Bipolar I disorder, most recent episode (or current) unspecified Former smoker Personal history of tobacco use, presenting hazards to health Class 2 obesity due to excess calories with body mass index (BMI) of 35.0 to 35.9 in adult, unspecified whether serious comorbidity present Non-melanoma skin cancer Unspecified malignant neoplasm of skin, site unspecified Pre-operative examination- Primary Preoperative examination, unspecified 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 Bipolar 1 disorder (HCC) Bipolar I disorder, most recent episode (or current) unspecified Chronic nonintractable headache, unspecified headache type 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 Type 2 diabetes mellitus with diabetic neuropathy, without long-term current use of insulin (HCC) Essential tremor Essential and other specified forms of tremor Fibromyalgia Mylagia and myositis, unspecified Former smoker Personal history of tobacco use, presenting hazards to health H/O gastric bypass Bariatric surgery status Primary hypertension Unspecified essential hypertension Other hyperlipidemia Hypothyroidism, unspecified type Liver fibrosis 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 of alcohol Neuropathy Mononeuritis of unspecified site Non-melanoma skin cancer Unspecified malignant neoplasm of skin, site unspecified [id number] (obstructive sleep apnea) Obstructive sleep apnea (adult) (pediatric) Class 2 obesity due to excess calories with body mass index (BMI) of 35.0 to 35.9 in adult, unspecified whether serious comorbidity present Type 2 diabetes mellitus with diabetic neuropathy, without long-term current use of insulin (HCC) [facility] Diagnosis Preoperative examination- Primary Preoperative examination, unspecified Acute pain of left shoulder Hypertension, unspecified type Other hyperlipidemia Type 2 diabetes mellitus with diabetic neuropathy, without long-term current use of insulin (HCC) Hypothyroidism, unspecified type Essential tremor Essential and other specified forms of tremor 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 Liver fibrosis 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 of alcohol Preoperative examination- Primary Preoperative examination, unspecified Cystocele, midline Uterovaginal prolapse Uterovaginal prolapse, unspecified Mixed incontinence Mixed incontinence urge and stress (male)(female) Rectocele Uterine prolapse Uterine prolapse without mention of vaginal wall prolapse Mixed stress and urge urinary incontinence Mixed incontinence urge and stress (male)(female) Urinary urgency Urgency of urination Urinary frequency Constipation due to outlet dysfunction Essential tremor Essential and other specified forms of tremor [id number] (obstructive sleep apnea) Obstructive sleep apnea (adult) (pediatric) Essential hypertension Unspecified essential hypertension Mild CAD Gastroesophageal reflux disease without esophagitis Esophageal reflux H/O gastric bypass Bariatric surgery status Liver fibrosis 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 of alcohol Class 2 obesity due to excess calories with body mass index (BMI) of 35.0 to 35.9 in adult, unspecified whether serious comorbidity present Type 2 diabetes mellitus with diabetic neuropathy, without long-term current use of insulin (HCC) Hypothyroidism, unspecified type Bipolar 1 disorder (HCC) Bipolar I disorder, most recent episode (or current) unspecified Fibromyalgia Mylagia and myositis, unspecified Pre-operative examination- Primary Preoperative examination, unspecified Colon cancer screening Special screening for malignant neoplasms, colon 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 H/O gastric bypass Bariatric surgery status 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 Essential tremor Essential and other specified forms of tremor Fibromyalgia Mylagia and myositis, unspecified Chronic nonintractable headache, unspecified headache type Neuropathy Mononeuritis of unspecified site Primary hypertension Unspecified essential hypertension Other hyperlipidemia [id number] (obstructive sleep apnea) Obstructive sleep apnea (adult) (pediatric) Liver fibrosis 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 of alcohol Type 2 diabetes mellitus with diabetic neuropathy, without long-term current use of insulin (HCC) Hypothyroidism, unspecified type Bipolar 1 disorder (HCC) Bipolar I disorder, most recent episode (or current) unspecified Former smoker Personal history of tobacco use, presenting hazards to health Class 2 obesity due to excess calories with body mass index (BMI) of 35.0 to 35.9 in adult, unspecified whether serious comorbidity present Non-melanoma skin cancer Unspecified malignant neoplasm of skin, site unspecified Pre-operative examination- Primary Preoperative examination, unspecified 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 Bipolar 1 disorder (HCC) Bipolar I disorder, most recent episode (or current) unspecified Chronic nonintractable headache, unspecified headache type 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 Type 2 diabetes mellitus with diabetic neuropathy, without long-term current use of insulin (HCC) Essential tremor Essential and other specified forms of tremor Fibromyalgia Mylagia and myositis, unspecified Former smoker Personal history of tobacco use, presenting hazards to health H/O gastric bypass Bariatric surgery status Primary hypertension Unspecified essential hypertension Other hyperlipidemia Hypothyroidism, unspecified type Liver fibrosis 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 of alcohol Neuropathy Mononeuritis of unspecified site Non-melanoma skin cancer Unspecified malignant neoplasm of skin, site unspecified [id number] (obstructive sleep apnea) Obstructive sleep apnea (adult) (pediatric) Class 2 obesity due to excess calories with body mass index (BMI) of 35.0 to 35.9 in adult, unspecified whether serious comorbidity present Chronic nonintractable headache, unspecified headache type- Primary Fibromyalgia Mylagia and myositis, unspecified Essential tremor Essential and other specified forms of tremor Primary hypertension Unspecified essential hypertension Other hyperlipidemia Mild CAD 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 KRZYSZTOF (obstructive sleep apnea) Obstructive sleep apnea (adult) (pediatric) Gastroesophageal reflux disease without esophagitis Esophageal reflux 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 Liver fibrosis 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 of alcohol Heartburn Type 2 diabetes mellitus with diabetic neuropathy, without long-term current use of insulin (HCC) Hypothyroidism, unspecified type H/O gastric bypass Bariatric surgery status Gait instability Abnormality of gait Encounter for immunization Need for other specified prophylactic vaccination against single bacterial disease [facility] Preoperative examination- Primary Preoperative examination, unspecified Acute pain of left shoulder Hypertension, unspecified type Other hyperlipidemia Type 2 diabetes mellitus with diabetic neuropathy, without long-term current use of insulin (HCC) Hypothyroidism, unspecified type Essential tremor Essential and other specified forms of tremor 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 Liver fibrosis 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 of alcohol Preoperative examination- Primary Preoperative examination, unspecified Cystocele, midline Uterovaginal prolapse Uterovaginal prolapse, unspecified Mixed incontinence Mixed incontinence urge and stress (male)(female) Rectocele Uterine prolapse Uterine prolapse without mention of vaginal wall prolapse Mixed stress and urge urinary incontinence Mixed incontinence urge and stress (male)(female) Urinary urgency Urgency of urination Urinary frequency Constipation due to outlet dysfunction Essential tremor Essential and other specified forms of tremor [id number] (obstructive sleep apnea) Obstructive sleep apnea (adult) (pediatric) Essential hypertension Unspecified essential hypertension Mild CAD Gastroesophageal reflux disease without esophagitis Esophageal reflux H/O gastric bypass Bariatric surgery status Liver fibrosis 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 of alcohol Class 2 obesity due to excess calories with body mass index (BMI) of 35.0 to 35.9 in adult, unspecified whether serious comorbidity present Type 2 diabetes mellitus with diabetic neuropathy, without long-term current use of insulin (HCC) Hypothyroidism, unspecified type Bipolar 1 disorder (HCC) Bipolar I disorder, most recent episode (or current) unspecified Fibromyalgia Mylagia and myositis, unspecified Pre-operative examination- Primary Preoperative examination, unspecified Colon cancer screening Special screening for malignant neoplasms, colon 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 H/O gastric bypass Bariatric surgery status 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 Essential tremor Essential and other specified forms of tremor Fibromyalgia Mylagia and myositis, unspecified Chronic nonintractable headache, unspecified headache type Neuropathy Mononeuritis of unspecified site Primary hypertension Unspecified essential hypertension Other hyperlipidemia [id number] (obstructive sleep apnea) Obstructive sleep apnea (adult) (pediatric) Liver fibrosis 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 of alcohol Type 2 diabetes mellitus with diabetic neuropathy, without long-term current use of insulin (HCC) Hypothyroidism, unspecified type Bipolar 1 disorder (HCC) Bipolar I disorder, most recent episode (or current) unspecified Former smoker Personal history of tobacco use, presenting hazards to health Class 2 obesity due to excess calories with body mass index (BMI) of 35.0 to 35.9 in adult, unspecified whether serious comorbidity present Non-melanoma skin cancer Unspecified malignant neoplasm of skin, site unspecified Pre-operative examination- Primary Preoperative examination, unspecified 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 Bipolar 1 disorder (HCC) Bipolar I disorder, most recent episode (or current) unspecified Chronic nonintractable headache, unspecified headache type 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 Type 2 diabetes mellitus with diabetic neuropathy, without long-term current use of insulin (HCC) Essential tremor Essential and other specified forms of tremor Fibromyalgia Mylagia and myositis, unspecified Former smoker Personal history of tobacco use, presenting hazards to health H/O gastric bypass Bariatric surgery status Primary hypertension Unspecified essential hypertension Other hyperlipidemia Hypothyroidism, unspecified type Liver fibrosis 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 of alcohol Neuropathy Mononeuritis of unspecified site Non-melanoma skin cancer Unspecified malignant neoplasm of skin, site unspecified [id number] (obstructive sleep apnea) Obstructive sleep apnea (adult) (pediatric) Class 2 obesity due to excess calories with body mass index (BMI) of 35.0 to 35.9 in adult, unspecified whether serious comorbidity present Renal insufficiency- Primary Unspecified disorder of kidney and ureter Anemia, unspecified type [facility] Diagnosis Preoperative examination- Primary Preoperative examination, unspecified Acute pain of left shoulder Hypertension, unspecified type Other hyperlipidemia Type 2 diabetes mellitus with diabetic neuropathy, without long-term current use of insulin (HCC) Hypothyroidism, unspecified type Essential tremor Essential and other specified forms of tremor 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 Liver fibrosis 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 of alcohol Preoperative examination- Primary Preoperative examination, unspecified Cystocele, midline Uterovaginal prolapse Uterovaginal prolapse, unspecified Mixed incontinence Mixed incontinence urge and stress (male)(female) Rectocele Uterine prolapse Uterine prolapse without mention of vaginal wall prolapse Mixed stress and urge urinary incontinence Mixed incontinence urge and stress (male)(female) Urinary urgency Urgency of urination Urinary frequency Constipation due to outlet dysfunction Essential tremor Essential and other specified forms of tremor [id number] (obstructive sleep apnea) Obstructive sleep apnea (adult) (pediatric) Essential hypertension Unspecified essential hypertension Mild CAD Gastroesophageal reflux disease without esophagitis Esophageal reflux H/O gastric bypass Bariatric surgery status Liver fibrosis 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 of alcohol Class 2 obesity due to excess calories with body mass index (BMI) of 35.0 to 35.9 in adult, unspecified whether serious comorbidity present Type 2 diabetes mellitus with diabetic neuropathy, without long-term current use of insulin (HCC) Hypothyroidism, unspecified type Bipolar 1 disorder (HCC) Bipolar I disorder, most recent episode (or current) unspecified Fibromyalgia Mylagia and myositis, unspecified Pre-operative examination- Primary Preoperative examination, unspecified Colon cancer screening Special screening for malignant neoplasms, colon 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 H/O gastric bypass Bariatric surgery status 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 Essential tremor Essential and other specified forms of tremor Fibromyalgia Mylagia and myositis, unspecified Chronic nonintractable headache, unspecified headache type Neuropathy Mononeuritis of unspecified site Primary hypertension Unspecified essential hypertension Other hyperlipidemia [id number] (obstructive sleep apnea) Obstructive sleep apnea (adult) (pediatric) Liver fibrosis 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 of alcohol Type 2 diabetes mellitus with diabetic neuropathy, without long-term current use of insulin (HCC) Hypothyroidism, unspecified type Bipolar 1 disorder (HCC) Bipolar I disorder, most recent episode (or current) unspecified Former smoker Personal history of tobacco use, presenting hazards to health Class 2 obesity due to excess calories with body mass index (BMI) of 35.0 to 35.9 in adult, unspecified whether serious comorbidity present Non-melanoma skin cancer Unspecified malignant neoplasm of skin, site unspecified Pre-operative examination- Primary Preoperative examination, unspecified 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 Bipolar 1 disorder (HCC) Bipolar I disorder, most recent episode (or current) unspecified Chronic nonintractable headache, unspecified headache type 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 Type 2 diabetes mellitus with diabetic neuropathy, without long-term current use of insulin (HCC) Essential tremor Essential and other specified forms of tremor Fibromyalgia Mylagia and myositis, unspecified Former smoker Personal history of tobacco use, presenting hazards to health H/O gastric bypass Bariatric surgery status Primary hypertension Unspecified essential hypertension Other hyperlipidemia Hypothyroidism, unspecified type Liver fibrosis 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 of alcohol Neuropathy Mononeuritis of unspecified site Non-melanoma skin cancer Unspecified malignant neoplasm of skin, site unspecified [id number] (obstructive sleep apnea) Obstructive sleep apnea (adult) (pediatric) Class 2 obesity due to excess calories with body mass index (BMI) of 35.0 to 35.9 in adult, unspecified whether serious comorbidity present Type 2 diabetes mellitus without retinopathy (HCC)- Primary Type II or unspecified type diabetes mellitus without mention of complication, not stated as uncontrolled Combined forms of age-related cataract of both eyes Other and combined forms of senile cataract Dry eye syndrome of bilateral lacrimal glands Tear film insufficiency, unspecified Presbyopia [facility]* Diagnosis Preoperative examination- Primary Preoperative examination, unspecified Acute pain of left shoulder Hypertension, unspecified type Other hyperlipidemia Type 2 diabetes mellitus with diabetic neuropathy, without long-term current use of insulin (HCC) Hypothyroidism, unspecified type Essential tremor Essential and other specified forms of tremor 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 Liver fibrosis 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 of alcohol Preoperative examination- Primary Preoperative examination, unspecified Cystocele, midline Uterovaginal prolapse Uterovaginal prolapse, unspecified Mixed incontinence Mixed incontinence urge and stress (male)(female) Rectocele Uterine prolapse Uterine prolapse without mention of vaginal wall prolapse Mixed stress and urge urinary incontinence Mixed incontinence urge and stress (male)(female) Urinary urgency Urgency of urination Urinary frequency Constipation due to outlet dysfunction Essential tremor Essential and other specified forms of tremor [id number] (obstructive sleep apnea) Obstructive sleep apnea (adult) (pediatric) Essential hypertension Unspecified essential hypertension Mild CAD Gastroesophageal reflux disease without esophagitis Esophageal reflux H/O gastric bypass Bariatric surgery status Liver fibrosis 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 of alcohol Class 2 obesity due to excess calories with body mass index (BMI) of 35.0 to 35.9 in adult, unspecified whether serious comorbidity present Type 2 diabetes mellitus with diabetic neuropathy, without long-term current use of insulin (HCC) Hypothyroidism, unspecified type Bipolar 1 disorder (HCC) Bipolar I disorder, most recent episode (or current) unspecified Fibromyalgia Mylagia and myositis, unspecified Pre-operative examination- Primary Preoperative examination, unspecified Colon cancer screening Special screening for malignant neoplasms, colon 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 H/O gastric bypass Bariatric surgery status 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 Essential tremor Essential and other specified forms of tremor Fibromyalgia Mylagia and myositis, unspecified Chronic nonintractable headache, unspecified headache type Neuropathy Mononeuritis of unspecified site Primary hypertension Unspecified essential hypertension Other hyperlipidemia [id number] (obstructive sleep apnea) Obstructive sleep apnea (adult) (pediatric) Liver fibrosis 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 of alcohol Type 2 diabetes mellitus with diabetic neuropathy, without long-term current use of insulin (HCC) Hypothyroidism, unspecified type Bipolar 1 disorder (HCC) Bipolar I disorder, most recent episode (or current) unspecified Former smoker Personal history of tobacco use, presenting hazards to health Class 2 obesity due to excess calories with body mass index (BMI) of 35.0 to 35.9 in adult, unspecified whether serious comorbidity present Non-melanoma skin cancer Unspecified malignant neoplasm of skin, site unspecified Pre-operative examination- Primary Preoperative examination, unspecified 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 Bipolar 1 disorder (HCC) Bipolar I disorder, most recent episode (or current) unspecified Chronic nonintractable headache, unspecified headache type 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 Type 2 diabetes mellitus with diabetic neuropathy, without long-term current use of insulin (HCC) Essential tremor Essential and other specified forms of tremor Fibromyalgia Mylagia and myositis, unspecified Former smoker Personal history of tobacco use, presenting hazards to health H/O gastric bypass Bariatric surgery status Primary hypertension Unspecified essential hypertension Other hyperlipidemia Hypothyroidism, unspecified type Liver fibrosis 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 of alcohol Neuropathy Mononeuritis of unspecified site Non-melanoma skin cancer Unspecified malignant neoplasm of skin, site unspecified [id number] (obstructive sleep apnea) Obstructive sleep apnea (adult) (pediatric) Class 2 obesity due to excess calories with body mass index (BMI) of 35.0 to 35.9 in adult, unspecified whether serious comorbidity present Closed nondisplaced fracture of phalanx of right great toe, unspecified phalanx, initial encounter [facility] Diagnosis Preoperative examination- Primary Preoperative examination, unspecified Acute pain of left shoulder Hypertension, unspecified type Other hyperlipidemia Type 2 diabetes mellitus with diabetic neuropathy, without long-term current use of insulin (HCC) Hypothyroidism, unspecified type Essential tremor Essential and other specified forms of tremor 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 Liver fibrosis 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 of alcohol Preoperative examination- Primary Preoperative examination, unspecified Cystocele, midline Uterovaginal prolapse Uterovaginal prolapse, unspecified Mixed incontinence Mixed incontinence urge and stress (male)(female) Rectocele Uterine prolapse Uterine prolapse without mention of vaginal wall prolapse Mixed stress and urge urinary incontinence Mixed incontinence urge and stress (male)(female) Urinary urgency Urgency of urination Urinary frequency Constipation due to outlet dysfunction Essential tremor Essential and other specified forms of tremor [id number] (obstructive sleep apnea) Obstructive sleep apnea (adult) (pediatric) Essential hypertension Unspecified essential hypertension Mild CAD Gastroesophageal reflux disease without esophagitis Esophageal reflux H/O gastric bypass Bariatric surgery status Liver fibrosis 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 of alcohol Class 2 obesity due to excess calories with body mass index (BMI) of 35.0 to 35.9 in adult, unspecified whether serious comorbidity present Type 2 diabetes mellitus with diabetic neuropathy, without long-term current use of insulin (HCC) Hypothyroidism, unspecified type Bipolar 1 disorder (HCC) Bipolar I disorder, most recent episode (or current) unspecified Fibromyalgia Mylagia and myositis, unspecified Pre-operative examination- Primary Preoperative examination, unspecified Colon cancer screening Special screening for malignant neoplasms, colon 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 H/O gastric bypass Bariatric surgery status 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 Essential tremor Essential and other specified forms of tremor Fibromyalgia Mylagia and myositis, unspecified Chronic nonintractable headache, unspecified headache type Neuropathy Mononeuritis of unspecified site Primary hypertension Unspecified essential hypertension Other hyperlipidemia [id number] (obstructive sleep apnea) Obstructive sleep apnea (adult) (pediatric) Liver fibrosis 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 of alcohol Type 2 diabetes mellitus with diabetic neuropathy, without long-term current use of insulin (HCC) Hypothyroidism, unspecified type Bipolar 1 disorder (HCC) Bipolar I disorder, most recent episode (or current) unspecified Former smoker Personal history of tobacco use, presenting hazards to health Class 2 obesity due to excess calories with body mass index (BMI) of 35.0 to 35.9 in adult, unspecified whether serious comorbidity present Non-melanoma skin cancer Unspecified malignant neoplasm of skin, site unspecified Pre-operative examination- Primary Preoperative examination, unspecified 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 Bipolar 1 disorder (HCC) Bipolar I disorder, most recent episode (or current) unspecified Chronic nonintractable headache, unspecified headache type 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 Type 2 diabetes mellitus with diabetic neuropathy, without long-term current use of insulin (HCC) Essential tremor Essential and other specified forms of tremor Fibromyalgia Mylagia and myositis, unspecified Former smoker Personal history of tobacco use, presenting hazards to health H/O gastric bypass Bariatric surgery status Primary hypertension Unspecified essential hypertension Other hyperlipidemia Hypothyroidism, unspecified type Liver fibrosis 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 of alcohol Neuropathy Mononeuritis of unspecified site Non-melanoma skin cancer Unspecified malignant neoplasm of skin, site unspecified [id number] (obstructive sleep apnea) Obstructive sleep apnea (adult) (pediatric) Class 2 obesity due to excess calories with body mass index (BMI) of 35.0 to 35.9 in adult, unspecified whether serious comorbidity present Renal insufficiency Unspecified disorder of kidney and ureter [facility] Diagnosis Preoperative examination- Primary Preoperative examination, unspecified Acute pain of left shoulder Hypertension, unspecified type Other hyperlipidemia Type 2 diabetes mellitus with diabetic neuropathy, without long-term current use of insulin (HCC) Hypothyroidism, unspecified type Essential tremor Essential and other specified forms of tremor 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 Liver fibrosis 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 of alcohol Preoperative examination- Primary Preoperative examination, unspecified Cystocele, midline Uterovaginal prolapse Uterovaginal prolapse, unspecified Mixed incontinence Mixed incontinence urge and stress (male)(female) Rectocele Uterine prolapse Uterine prolapse without mention of vaginal wall prolapse Mixed stress and urge urinary incontinence Mixed incontinence urge and stress (male)(female) Urinary urgency Urgency of urination Urinary frequency Constipation due to outlet dysfunction Essential tremor Essential and other specified forms of tremor [id number] (obstructive sleep apnea) Obstructive sleep apnea (adult) (pediatric) Essential hypertension Unspecified essential hypertension Mild CAD Gastroesophageal reflux disease without esophagitis Esophageal reflux H/O gastric bypass Bariatric surgery status Liver fibrosis 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 of alcohol Class 2 obesity due to excess calories with body mass index (BMI) of 35.0 to 35.9 in adult, unspecified whether serious comorbidity present Type 2 diabetes mellitus with diabetic neuropathy, without long-term current use of insulin (HCC) Hypothyroidism, unspecified type Bipolar 1 disorder (HCC) Bipolar I disorder, most recent episode (or current) unspecified Fibromyalgia Mylagia and myositis, unspecified Pre-operative examination- Primary Preoperative examination, unspecified Colon cancer screening Special screening for malignant neoplasms, colon 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 H/O gastric bypass Bariatric surgery status 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 Essential tremor Essential and other specified forms of tremor Fibromyalgia Mylagia and myositis, unspecified Chronic nonintractable headache, unspecified headache type Neuropathy Mononeuritis of unspecified site Primary hypertension Unspecified essential hypertension Other hyperlipidemia [id number] (obstructive sleep apnea) Obstructive sleep apnea (adult) (pediatric) Liver fibrosis 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 of alcohol Type 2 diabetes mellitus with diabetic neuropathy, without long-term current use of insulin (HCC) Hypothyroidism, unspecified type Bipolar 1 disorder (HCC) Bipolar I disorder, most recent episode (or current) unspecified Former smoker Personal history of tobacco use, presenting hazards to health Class 2 obesity due to excess calories with body mass index (BMI) of 35.0 to 35.9 in adult, unspecified whether serious comorbidity present Non-melanoma skin cancer Unspecified malignant neoplasm of skin, site unspecified Pre-operative examination- Primary Preoperative examination, unspecified 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 Bipolar 1 disorder (HCC) Bipolar I disorder, most recent episode (or current) unspecified Chronic nonintractable headache, unspecified headache type 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 Type 2 diabetes mellitus with diabetic neuropathy, without long-term current use of insulin (HCC) Essential tremor Essential and other specified forms of tremor Fibromyalgia Mylagia and myositis, unspecified Former smoker Personal history of tobacco use, presenting hazards to health H/O gastric bypass Bariatric surgery status Primary hypertension Unspecified essential hypertension Other hyperlipidemia Hypothyroidism, unspecified type Liver fibrosis 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 of alcohol Neuropathy Mononeuritis of unspecified site Non-melanoma skin cancer Unspecified malignant neoplasm of skin, site unspecified [id number] (obstructive sleep apnea) Obstructive sleep apnea (adult) (pediatric) Class 2 obesity due to excess calories with body mass index (BMI) of 35.0 to 35.9 in adult, unspecified whether serious comorbidity present Closed nondisplaced fracture of phalanx of right great toe, unspecified phalanx, initial encounter- Primary Ulcer of toe of left foot, limited to breakdown of skin (HCC) Porokeratosis Other specified congenital anomaly of skin Hammertoe of right foot [facility] Diagnosis Preoperative examination- Primary Preoperative examination, unspecified Acute pain of left shoulder Hypertension, unspecified type Other hyperlipidemia Type 2 diabetes mellitus with diabetic neuropathy, without long-term current use of insulin (HCC) Hypothyroidism, unspecified type Essential tremor Essential and other specified forms of tremor 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 Liver fibrosis 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 of alcohol Preoperative examination- Primary Preoperative examination, unspecified Cystocele, midline Uterovaginal prolapse Uterovaginal prolapse, unspecified Mixed incontinence Mixed incontinence urge and stress (male)(female) Rectocele Uterine prolapse Uterine prolapse without mention of vaginal wall prolapse Mixed stress and urge urinary incontinence Mixed incontinence urge and stress (male)(female) Urinary urgency Urgency of urination Urinary frequency Constipation due to outlet dysfunction Essential tremor Essential and other specified forms of tremor [id number] (obstructive sleep apnea) Obstructive sleep apnea (adult) (pediatric) Essential hypertension Unspecified essential hypertension Mild CAD Gastroesophageal reflux disease without esophagitis Esophageal reflux H/O gastric bypass Bariatric surgery status Liver fibrosis 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 of alcohol Class 2 obesity due to excess calories with body mass index (BMI) of 35.0 to 35.9 in adult, unspecified whether serious comorbidity present Type 2 diabetes mellitus with diabetic neuropathy, without long-term current use of insulin (HCC) Hypothyroidism, unspecified type Bipolar 1 disorder (HCC) Bipolar I disorder, most recent episode (or current) unspecified Fibromyalgia Mylagia and myositis, unspecified Pre-operative examination- Primary Preoperative examination, unspecified Colon cancer screening Special screening for malignant neoplasms, colon 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 H/O gastric bypass Bariatric surgery status 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 Essential tremor Essential and other specified forms of tremor Fibromyalgia Mylagia and myositis, unspecified Chronic nonintractable headache, unspecified headache type Neuropathy Mononeuritis of unspecified site Primary hypertension Unspecified essential hypertension Other hyperlipidemia [id number] (obstructive sleep apnea) Obstructive sleep apnea (adult) (pediatric) Liver fibrosis 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 of alcohol Type 2 diabetes mellitus with diabetic neuropathy, without long-term current use of insulin (HCC) Hypothyroidism, unspecified type Bipolar 1 disorder (HCC) Bipolar I disorder, most recent episode (or current) unspecified Former smoker Personal history of tobacco use, presenting hazards to health Class 2 obesity due to excess calories with body mass index (BMI) of 35.0 to 35.9 in adult, unspecified whether serious comorbidity present Non-melanoma skin cancer Unspecified malignant neoplasm of skin, site unspecified Pre-operative examination- Primary Preoperative examination, unspecified 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 Bipolar 1 disorder (HCC) Bipolar I disorder, most recent episode (or current) unspecified Chronic nonintractable headache, unspecified headache type 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 Type 2 diabetes mellitus with diabetic neuropathy, without long-term current use of insulin (HCC) Essential tremor Essential and other specified forms of tremor Fibromyalgia Mylagia and myositis, unspecified Former smoker Personal history of tobacco use, presenting hazards to health H/O gastric bypass Bariatric surgery status Primary hypertension Unspecified essential hypertension Other hyperlipidemia Hypothyroidism, unspecified type Liver fibrosis 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 of alcohol Neuropathy Mononeuritis of unspecified site Non-melanoma skin cancer Unspecified malignant neoplasm of skin, site unspecified [id number] (obstructive sleep apnea) Obstructive sleep apnea (adult) (pediatric) Class 2 obesity due to excess calories with body mass index (BMI) of 35.0 to 35.9 in adult, unspecified whether serious comorbidity present Type 2 diabetes mellitus with diabetic neuropathy, without long-term current use of insulin (HCC) [facility] Preoperative examination- Primary Preoperative examination, unspecified Acute pain of left shoulder Hypertension, unspecified type Other hyperlipidemia Type 2 diabetes mellitus with diabetic neuropathy, without long-term current use of insulin (HCC) Hypothyroidism, unspecified type Essential tremor Essential and other specified forms of tremor 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 Liver fibrosis 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 of alcohol Preoperative examination- Primary Preoperative examination, unspecified Cystocele, midline Uterovaginal prolapse Uterovaginal prolapse, unspecified Mixed incontinence Mixed incontinence urge and stress (male)(female) Rectocele Uterine prolapse Uterine prolapse without mention of vaginal wall prolapse Mixed stress and urge urinary incontinence Mixed incontinence urge and stress (male)(female) Urinary urgency Urgency of urination Urinary frequency Constipation due to outlet dysfunction Essential tremor Essential and other specified forms of tremor [id number] (obstructive sleep apnea) Obstructive sleep apnea (adult) (pediatric) Essential hypertension Unspecified essential hypertension Mild CAD Gastroesophageal reflux disease without esophagitis Esophageal reflux H/O gastric bypass Bariatric surgery status Liver fibrosis 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 of alcohol Class 2 obesity due to excess calories with body mass index (BMI) of 35.0 to 35.9 in adult, unspecified whether serious comorbidity present Type 2 diabetes mellitus with diabetic neuropathy, without long-term current use of insulin (HCC) Hypothyroidism, unspecified type Bipolar 1 disorder (HCC) Bipolar I disorder, most recent episode (or current) unspecified Fibromyalgia Mylagia and myositis, unspecified Pre-operative examination- Primary Preoperative examination, unspecified Colon cancer screening Special screening for malignant neoplasms, colon 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 H/O gastric bypass Bariatric surgery status 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 Essential tremor Essential and other specified forms of tremor Fibromyalgia Mylagia and myositis, unspecified Chronic nonintractable headache, unspecified headache type Neuropathy Mononeuritis of unspecified site Primary hypertension Unspecified essential hypertension Other hyperlipidemia [id number] (obstructive sleep apnea) Obstructive sleep apnea (adult) (pediatric) Liver fibrosis 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 of alcohol Type 2 diabetes mellitus with diabetic neuropathy, without long-term current use of insulin (HCC) Hypothyroidism, unspecified type Bipolar 1 disorder (HCC) Bipolar I disorder, most recent episode (or current) unspecified Former smoker Personal history of tobacco use, presenting hazards to health Class 2 obesity due to excess calories with body mass index (BMI) of 35.0 to 35.9 in adult, unspecified whether serious comorbidity present Non-melanoma skin cancer Unspecified malignant neoplasm of skin, site unspecified Pre-operative examination- Primary Preoperative examination, unspecified 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 Bipolar 1 disorder (HCC) Bipolar I disorder, most recent episode (or current) unspecified Chronic nonintractable headache, unspecified headache type 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 Type 2 diabetes mellitus with diabetic neuropathy, without long-term current use of insulin (HCC) Essential tremor Essential and other specified forms of tremor Fibromyalgia Mylagia and myositis, unspecified Former smoker Personal history of tobacco use, presenting hazards to health H/O gastric bypass Bariatric surgery status Primary hypertension Unspecified essential hypertension Other hyperlipidemia Hypothyroidism, unspecified type Liver fibrosis 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 of alcohol Neuropathy Mononeuritis of unspecified site Non-melanoma skin cancer Unspecified malignant neoplasm of skin, site unspecified [id number] (obstructive sleep apnea) Obstructive sleep apnea (adult) (pediatric) Class 2 obesity due to excess calories with body mass index (BMI) of 35.0 to 35.9 in adult, unspecified whether serious comorbidity present Type 2 diabetes mellitus with diabetic neuropathy, without long-term current use of insulin (HCC) [facility] Diagnosis Preoperative examination- Primary Preoperative examination, unspecified Acute pain of left shoulder Hypertension, unspecified type Other hyperlipidemia Type 2 diabetes mellitus with diabetic neuropathy, without long-term current use of insulin (HCC) Hypothyroidism, unspecified type Essential tremor Essential and other specified forms of tremor 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 Liver fibrosis 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 of alcohol Preoperative examination- Primary Preoperative examination, unspecified Cystocele, midline Uterovaginal prolapse Uterovaginal prolapse, unspecified Mixed incontinence Mixed incontinence urge and stress (male)(female) Rectocele Uterine prolapse Uterine prolapse without mention of vaginal wall prolapse Mixed stress and urge urinary incontinence Mixed incontinence urge and stress (male)(female) Urinary urgency Urgency of urination Urinary frequency Constipation due to outlet dysfunction Essential tremor Essential and other specified forms of tremor [id number] (obstructive sleep apnea) Obstructive sleep apnea (adult) (pediatric) Essential hypertension Unspecified essential hypertension Mild CAD Gastroesophageal reflux disease without esophagitis Esophageal reflux H/O gastric bypass Bariatric surgery status Liver fibrosis 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 of alcohol Class 2 obesity due to excess calories with body mass index (BMI) of 35.0 to 35.9 in adult, unspecified whether serious comorbidity present Type 2 diabetes mellitus with diabetic neuropathy, without long-term current use of insulin (HCC) Hypothyroidism, unspecified type Bipolar 1 disorder (HCC) Bipolar I disorder, most recent episode (or current) unspecified Fibromyalgia Mylagia and myositis, unspecified Pre-operative examination- Primary Preoperative examination, unspecified Colon cancer screening Special screening for malignant neoplasms, colon 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 H/O gastric bypass Bariatric surgery status 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 Essential tremor Essential and other specified forms of tremor Fibromyalgia Mylagia and myositis, unspecified Chronic nonintractable headache, unspecified headache type Neuropathy Mononeuritis of unspecified site Primary hypertension Unspecified essential hypertension Other hyperlipidemia [id number] (obstructive sleep apnea) Obstructive sleep apnea (adult) (pediatric) Liver fibrosis 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 of alcohol Type 2 diabetes mellitus with diabetic neuropathy, without long-term current use of insulin (HCC) Hypothyroidism, unspecified type Bipolar 1 disorder (HCC) Bipolar I disorder, most recent episode (or current) unspecified Former smoker Personal history of tobacco use, presenting hazards to health Class 2 obesity due to excess calories with body mass index (BMI) of 35.0 to 35.9 in adult, unspecified whether serious comorbidity present Non-melanoma skin cancer Unspecified malignant neoplasm of skin, site unspecified Pre-operative examination- Primary Preoperative examination, unspecified 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 Bipolar 1 disorder (HCC) Bipolar I disorder, most recent episode (or current) unspecified Chronic nonintractable headache, unspecified headache type 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 Type 2 diabetes mellitus with diabetic neuropathy, without long-term current use of insulin (HCC) Essential tremor Essential and other specified forms of tremor Fibromyalgia Mylagia and myositis, unspecified Former smoker Personal history of tobacco use, presenting hazards to health H/O gastric bypass Bariatric surgery status Primary hypertension Unspecified essential hypertension Other hyperlipidemia Hypothyroidism, unspecified type Liver fibrosis 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 of alcohol Neuropathy Mononeuritis of unspecified site Non-melanoma skin cancer Unspecified malignant neoplasm of skin, site unspecified [id number] (obstructive sleep apnea) Obstructive sleep apnea (adult) (pediatric) Class 2 obesity due to excess calories with body mass index (BMI) of 35.0 to 35.9 in adult, unspecified whether serious comorbidity present Iron deficiency anemia, unspecified iron deficiency anemia type [facility] Diagnosis Preoperative examination- Primary Preoperative examination, unspecified Acute pain of left shoulder Hypertension, unspecified type Other hyperlipidemia Type 2 diabetes mellitus with diabetic neuropathy, without long-term current use of insulin (HCC) Hypothyroidism, unspecified type Essential tremor Essential and other specified forms of tremor 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 Liver fibrosis 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 of alcohol Preoperative examination- Primary Preoperative examination, unspecified Cystocele, midline Uterovaginal prolapse Uterovaginal prolapse, unspecified Mixed incontinence Mixed incontinence urge and stress (male)(female) Rectocele Uterine prolapse Uterine prolapse without mention of vaginal wall prolapse Mixed stress and urge urinary incontinence Mixed incontinence urge and stress (male)(female) Urinary urgency Urgency of urination Urinary frequency Constipation due to outlet dysfunction Essential tremor Essential and other specified forms of tremor [id number] (obstructive sleep apnea) Obstructive sleep apnea (adult) (pediatric) Essential hypertension Unspecified essential hypertension Mild CAD Gastroesophageal reflux disease without esophagitis Esophageal reflux H/O gastric bypass Bariatric surgery status Liver fibrosis 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 of alcohol Class 2 obesity due to excess calories with body mass index (BMI) of 35.0 to 35.9 in adult, unspecified whether serious comorbidity present Type 2 diabetes mellitus with diabetic neuropathy, without long-term current use of insulin (HCC) Hypothyroidism, unspecified type Bipolar 1 disorder (HCC) Bipolar I disorder, most recent episode (or current) unspecified Fibromyalgia Mylagia and myositis, unspecified Pre-operative examination- Primary Preoperative examination, unspecified Colon cancer screening Special screening for malignant neoplasms, colon 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 H/O gastric bypass Bariatric surgery status 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 Essential tremor Essential and other specified forms of tremor Fibromyalgia Mylagia and myositis, unspecified Chronic nonintractable headache, unspecified headache type Neuropathy Mononeuritis of unspecified site Primary hypertension Unspecified essential hypertension Other hyperlipidemia [id number] (obstructive sleep apnea) Obstructive sleep apnea (adult) (pediatric) Liver fibrosis 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 of alcohol Type 2 diabetes mellitus with diabetic neuropathy, without long-term current use of insulin (HCC) Hypothyroidism, unspecified type Bipolar 1 disorder (HCC) Bipolar I disorder, most recent episode (or current) unspecified Former smoker Personal history of tobacco use, presenting hazards to health Class 2 obesity due to excess calories with body mass index (BMI) of 35.0 to 35.9 in adult, unspecified whether serious comorbidity present Non-melanoma skin cancer Unspecified malignant neoplasm of skin, site unspecified Pre-operative examination- Primary Preoperative examination, unspecified 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 Bipolar 1 disorder (HCC) Bipolar I disorder, most recent episode (or current) unspecified Chronic nonintractable headache, unspecified headache type 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 Type 2 diabetes mellitus with diabetic neuropathy, without long-term current use of insulin (HCC) Essential tremor Essential and other specified forms of tremor Fibromyalgia Mylagia and myositis, unspecified Former smoker Personal history of tobacco use, presenting hazards to health H/O gastric bypass Bariatric surgery status Primary hypertension Unspecified essential hypertension Other hyperlipidemia Hypothyroidism, unspecified type Liver fibrosis 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 of alcohol Neuropathy Mononeuritis of unspecified site Non-melanoma skin cancer Unspecified malignant neoplasm of skin, site unspecified [id number] (obstructive sleep apnea) Obstructive sleep apnea (adult) (pediatric) Class 2 obesity due to excess calories with body mass index (BMI) of 35.0 to 35.9 in adult, unspecified whether serious comorbidity present Migraine without aura, intractable, with status migrainosus Migraine without aura, with intractable migraine, so stated, with status migrainosus [facility] Diagnosis Preoperative examination- Primary Preoperative examination, unspecified Acute pain of left shoulder Hypertension, unspecified type Other hyperlipidemia Type 2 diabetes mellitus with diabetic neuropathy, without long-term current use of insulin (HCC) Hypothyroidism, unspecified type Essential tremor Essential and other specified forms of tremor 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 Liver fibrosis 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 of alcohol Preoperative examination- Primary Preoperative examination, unspecified Cystocele, midline Uterovaginal prolapse Uterovaginal prolapse, unspecified Mixed incontinence Mixed incontinence urge and stress (male)(female) Rectocele Uterine prolapse Uterine prolapse without mention of vaginal wall prolapse Mixed stress and urge urinary incontinence Mixed incontinence urge and stress (male)(female) Urinary urgency Urgency of urination Urinary frequency Constipation due to outlet dysfunction Essential tremor Essential and other specified forms of tremor [id number] (obstructive sleep apnea) Obstructive sleep apnea (adult) (pediatric) Essential hypertension Unspecified essential hypertension Mild CAD Gastroesophageal reflux disease without esophagitis Esophageal reflux H/O gastric bypass Bariatric surgery status Liver fibrosis 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 of alcohol Class 2 obesity due to excess calories with body mass index (BMI) of 35.0 to 35.9 in adult, unspecified whether serious comorbidity present Type 2 diabetes mellitus with diabetic neuropathy, without long-term current use of insulin (HCC) Hypothyroidism, unspecified type Bipolar 1 disorder (HCC) Bipolar I disorder, most recent episode (or current) unspecified Fibromyalgia Mylagia and myositis, unspecified Pre-operative examination- Primary Preoperative examination, unspecified Colon cancer screening Special screening for malignant neoplasms, colon Powesr's esophagus without dysplasia Powers's esophagus H/O gastric bypass Bariatric surgery status 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 Essential tremor Essential and other specified forms of tremor Fibromyalgia Mylagia and myositis, unspecified Chronic nonintractable headache, unspecified headache type Neuropathy Mononeuritis of unspecified site Primary hypertension Unspecified essential hypertension Other hyperlipidemia [id number] (obstructive sleep apnea) Obstructive sleep apnea (adult) (pediatric) Liver fibrosis 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 of alcohol Type 2 diabetes mellitus with diabetic neuropathy, without long-term current use of insulin (HCC) Hypothyroidism, unspecified type Bipolar 1 disorder (HCC) Bipolar I disorder, most recent episode (or current) unspecified Former smoker Personal history of tobacco use, presenting hazards to health Class 2 obesity due to excess calories with body mass index (BMI) of 35.0 to 35.9 in adult, unspecified whether serious comorbidity present Non-melanoma skin cancer Unspecified malignant neoplasm of skin, site unspecified Pre-operative examination- Primary Preoperative examination, unspecified 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 Bipolar 1 disorder (HCC) Bipolar I disorder, most recent episode (or current) unspecified Chronic nonintractable headache, unspecified headache type 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 Type 2 diabetes mellitus with diabetic neuropathy, without long-term current use of insulin (HCC) Essential tremor Essential and other specified forms of tremor Fibromyalgia Mylagia and myositis, unspecified Former smoker Personal history of tobacco use, presenting hazards to health H/O gastric bypass Bariatric surgery status Primary hypertension Unspecified essential hypertension Other hyperlipidemia Hypothyroidism, unspecified type Liver fibrosis 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 of alcohol Neuropathy Mononeuritis of unspecified site Non-melanoma skin cancer Unspecified malignant neoplasm of skin, site unspecified [id number] (obstructive sleep apnea) Obstructive sleep apnea (adult) (pediatric) Class 2 obesity due to excess calories with body mass index (BMI) of 35.0 to 35.9 in adult, unspecified whether serious comorbidity present Tremor- Primary Abnormal involuntary movements Migraine without aura, intractable, with status migrainosus Migraine without aura, with intractable migraine, so stated, with status migrainosus Memory difficulty Memory loss Drug-induced parkinsonism (HCC) Secondary Parkinsonism [facility] Diagnosis Preoperative examination- Primary Preoperative examination, unspecified Acute pain of left shoulder Hypertension, unspecified type Other hyperlipidemia Type 2 diabetes mellitus with diabetic neuropathy, without long-term current use of insulin (HCC) Hypothyroidism, unspecified type Essential tremor Essential and other specified forms of tremor 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 Liver fibrosis 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 of alcohol Preoperative examination- Primary Preoperative examination, unspecified Cystocele, midline Uterovaginal prolapse Uterovaginal prolapse, unspecified Mixed incontinence Mixed incontinence urge and stress (male)(female) Rectocele Uterine prolapse Uterine prolapse without mention of vaginal wall prolapse Mixed stress and urge urinary incontinence Mixed incontinence urge and stress (male)(female) Urinary urgency Urgency of urination Urinary frequency Constipation due to outlet dysfunction Essential tremor Essential and other specified forms of tremor [id number] (obstructive sleep apnea) Obstructive sleep apnea (adult) (pediatric) Essential hypertension Unspecified essential hypertension Mild CAD Gastroesophageal reflux disease without esophagitis Esophageal reflux H/O gastric bypass Bariatric surgery status Liver fibrosis 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 of alcohol Class 2 obesity due to excess calories with body mass index (BMI) of 35.0 to 35.9 in adult, unspecified whether serious comorbidity present Type 2 diabetes mellitus with diabetic neuropathy, without long-term current use of insulin (HCC) Hypothyroidism, unspecified type Bipolar 1 disorder (HCC) Bipolar I disorder, most recent episode (or current) unspecified Fibromyalgia Mylagia and myositis, unspecified Pre-operative examination- Primary Preoperative examination, unspecified Colon cancer screening Special screening for malignant neoplasms, colon 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 H/O gastric bypass Bariatric surgery status 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 Essential tremor Essential and other specified forms of tremor Fibromyalgia Mylagia and myositis, unspecified Chronic nonintractable headache, unspecified headache type Neuropathy Mononeuritis of unspecified site Primary hypertension Unspecified essential hypertension Other hyperlipidemia [id number] (obstructive sleep apnea) Obstructive sleep apnea (adult) (pediatric) Liver fibrosis 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 of alcohol Type 2 diabetes mellitus with diabetic neuropathy, without long-term current use of insulin (HCC) Hypothyroidism, unspecified type Bipolar 1 disorder (HCC) Bipolar I disorder, most recent episode (or current) unspecified Former smoker Personal history of tobacco use, presenting hazards to health Class 2 obesity due to excess calories with body mass index (BMI) of 35.0 to 35.9 in adult, unspecified whether serious comorbidity present Non-melanoma skin cancer Unspecified malignant neoplasm of skin, site unspecified Pre-operative examination- Primary Preoperative examination, unspecified 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 Bipolar 1 disorder (HCC) Bipolar I disorder, most recent episode (or current) unspecified Chronic nonintractable headache, unspecified headache type 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 Type 2 diabetes mellitus with diabetic neuropathy, without long-term current use of insulin (HCC) Essential tremor Essential and other specified forms of tremor Fibromyalgia Mylagia and myositis, unspecified Former smoker Personal history of tobacco use, presenting hazards to health H/O gastric bypass Bariatric surgery status Primary hypertension Unspecified essential hypertension Other hyperlipidemia Hypothyroidism, unspecified type Liver fibrosis 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 of alcohol Neuropathy Mononeuritis of unspecified site Non-melanoma skin cancer Unspecified malignant neoplasm of skin, site unspecified KRZYSZTOF (obstructive sleep apnea) Obstructive sleep apnea (adult) (pediatric) Class 2 obesity due to excess calories with body mass index (BMI) of 35.0 to 35.9 in adult, unspecified whether serious comorbidity present Microalbuminuria Proteinuria [facility] Additional Instructions Other than your old second toe fracture the x-rays today of your right elbow, right wrist, femur and foot otherwise were unremarkable. Ice all sore areas. Tylenol Motrin for pain. Follow-up with your doctor as needed.[facility] Work Phone: Hospital Discharge instructions Additional Instructions You received Tylenol here in the emergency department. No Tylenol for 6 hours. Follow-up with primary care physician. Recommend using your walker. Monitor for signs of concussion which we talked about. Return back to the ED if symptoms change or worsen. [place] [facility] Reason for referral (narrative)* Outpatient Procedure (Routine) - Authorized Specialty Diagnoses / Procedures Referred By Rachael yanez Referred To [facility] Diagnoses Ulcer of toe of left foot, limited to breakdown of skin (HCC) Diminished pulses in lower extremity Procedures PVR ANK PRESS SHY VAS LAB NON-INVAS PHYSIOLOGIC STD EXTREMITY ART 2 LEVEL [place] [address] [facility] [place] [address] [place] [address] Referral ID Status Reason Start Date Expiration Date Visits Requested Visits Authorized [id number] Authorized Auto-Generat ed Referral 08/09/2021 08/09/2022 1 1 T [facility] for referral (narrative)* Diagnostic Procedure Only (Routine) - Closed Specialty Diagnoses / Procedures Referred By Rachael yanez Referred To Contact XR IMAGING Diagnoses Pain Procedures XR FOOT GENERAL 3V AP/LAT/OBL BILATERAL RADEX FOOT COMPLETE MINIMUM 3 VIEWS Dru [address] [place] [address] Xr Imaging Referral ID Status Reason Start Date Expiration Date V isits Requested Visits Authorized [id number] Closed Auto-Generate d Referral 07/30/2021 08/29/2022 1 1 T [facility] for referral (narrative)* Diagnostic Procedure Only (Routine) - Closed Specialty Diagnoses / Procedures Referred By Rachael yanez Referred To Contact XR IMAGING Diagnoses Other diabetic neurological complication associated with type 2 diabetes mellitus (HCC) Hammertoe of left foot Procedures XR FOOT GENERAL 3V AP/LAT/OBL LEFT RADEX FOOT COMPLETE MINIMUM 3 VIEWS Dru [address] [place] [address] Xr Imaging Referral ID Status Reason Start Date Expiration Date V isits Requested Visits Authorized [id number] Closed Auto-Generate d Referral 12/18/2021 01/17/2023 1 1 [facility] Diagnostic Procedure Only (Routine) - Closed Specialty Diagnoses / Procedures Referred By Contac t Referred To Contact XR IMAGING Diagnoses Finger pain, right Procedures XR DIGIT GENERAL 3V FRONTAL/LAT/OBL RIGHT RADEX FINGR MINIMUM 2 VIEWS Santhosh Holden MD [facility] [place] [address] Xr Imaging Referral ID Status Reason Start Date Expiration Date V isits Requested Visits Authorized [id number] Closed Auto-Generate d Referral 05/29/2022 06/28/2023 1 1 * Diagnostic Procedure Only (Routine) - Authorized Specialty Diagnoses / Procedures Referred By Contac t Referred To Contact BR IMAGING Diagnoses Screening breast examination Procedures JESUS SCREENING SCREENING MAMMOGRAPHY BI 2-VIEW BREAST INC CAD Santhosh Holden MD [address] [place] [address] [facility] [address] [place] [address] Referral ID Status Reason Start Date Expiration Date Visits Requested Visits Authorized [id number] Authorized Auto-Generat ed Referral 05/29/2022 06/28/2023 1 1 * Diagnostic Procedure Only (Routine) - Closed Specialty Diagnoses / Procedures Referred By Contac t Referred To Contact XR IMAGING Diagnoses Finger pain, right Procedures XR DIGIT GENERAL 3V FRONTAL/LAT/OBL RIGHT RADEX FINGR MINIMUM 2 VIEWS Santhosh Holden MD [address] [place] [address] Xr Imaging Referral ID Status Reason Start Date Expiration Date V isits Requested Visits Authorized [id number] Closed Auto-Generate d Referral 05/29/2022 06/28/2023 1 1 * Consult, Test, Treat (Routine) - Authorized Specialty Diagnoses / Procedures Referred By Contac t Referred To Contact Cardiology Diagnoses Coronary-myocardial bridge Mild CAD Procedures CONSULT TO CARDIOLOGY OFFICE/OUTPATIENT [facility] 60-74 MINUTES Santhosh Holden MD [address] [place] [address] Referral ID Status Reason Start Date Expiration Date Visits Requested Visits Authorized [id number] Authorized PCP Requested Referral 05/29/2022 05/29/2023 1 1 * Consult, Test, Treat (Routine) - Authorized Specialty Diagnoses / Procedures Referred By Demetriusac t Referred To Contact General Surgery Diagnoses 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 H/O gastric bypass Screening for colon cancer Procedures CONSULT TO GENERAL SURGERY OFFICE/OUTPATIENT [facility] 60-74 MINUTES Santhosh Holden MD [address] [place] [address] Referral ID Status Reason Start Date Expiration Date Visits Requested Visits Authorized [id number] Authorized PCP Requested Referral 05/29/2022 05/29/2023 1 1 * Consult, Test, Treat (Routine) - Authorized Specialty Diagnoses / Procedures Referred By Rachael t Referred To Contact Neurology / NEUROLOGY Diagnoses Parkinson's disease (HCC) Essential tremor Ataxia Procedures CONSULT TO NEUROLOGY OFFICE/OUTPATIENT [facility] 60-74 MINUTES Santhosh Holden MD [address] [place] [address] Ne[place] [address] [address] Referral ID Status Reason Start Date Expiration Date Visits Requested Visits Authorized [id number] Authorized PCP Requested Referral 05/29/2022 08/21/2023 1 1 * Physical Therapy (Routine) - Pending Review Specialty Diagnoses / Procedures Referred By Contac t Referred To Contact [facility] Diagnoses Neuropathy Ataxia Fall, subsequent encounter Procedures CONSULT TO PHYSICAL THERAPY PHYSICAL THERAPY EVALUATION HIGH COMPLEX 45 MINS Santhosh Holden MD [address] [place] [address] [facility] [place] [address] [place] [address] Referral ID Status Reason Start Date Expiration Date Visits Requested Visits Authorized [id number] Pending Review Auto-Generat ed Referral 05/29/2022 05/29/2023 1 1 * Consult, Test, Treat (Routine) - Authorized Specialty Diagnoses / Procedures Referred By Contac t Referred To Contact Ophthalmology Diagnoses Screening for diabetic retinopathy Procedures CONSULT TO OPHTHALMOLOGY OFFICE/OUTPATIENT [facility] MDM 60-74 MINUTES Santhosh Holden MD [address] [place] [address] Referral ID Status Reason Start Date Expiration Date Visits Requested Visits Authorized [id number] Authorized PCP Requested Referral 05/29/2022 05/29/2023 1 1 [facility] for referral (narrative)* Diagnostic Procedure Only (Routine) - Authorized Specialty Diagnoses / Procedures Referred By Contac t Referred To Contact XR IMAGING Diagnoses Pain Procedures XR FOOT GENERAL 3V AP/LAT/OBL RIGHT RADEX FOOT COMPLETE MINIMUM 3 VIEWS Dru Sahu [address] [place] [address] Xr Imaging Referral ID Status Reason Start Date Expiration Date Visits Requested Visits Authorized [id number] Authorized Auto-Generat ed Referral 09/25/2022 10/25/2023 1 1 [facility] for referral (narrative)* Diagnostic Procedure Only (Routine) - Pending Review Specialty Diagnoses / Procedures Referred By Contac t Referred To Contact XR IMAGING Diagnoses Hammertoe of right foot Closed displaced fracture of phalanx of lesser toe of right foot, unspecified phalanx, initial encounter Procedures XR FOOT GENERAL 3V AP/LAT/OBL RIGHT RADEX FOOT COMPLETE MINIMUM 3 VIEWS Crystal Sahuew [address] [place] [address] Xr Imaging Referral ID Status Reason Start Date Expiration Date Visits Requested Visits Authorized [id number] Pending Review Auto-Generat ed Referral 10/15/2022 11/14/2023 1 1 [facility] for referral (narrative)* Diagnostic Procedure Only (Routine) - Closed Specialty Diagnoses / Procedures Referred By Contac t Referred To Contact XR IMAGING Diagnoses Pain Procedures XR FOOT GENERAL 3V AP/LAT/OBL RIGHT RADEX FOOT COMPLETE MINIMUM 3 VIEWS Dru Sahu [address] [place] [address] [place] [address] Referral ID Status Reason Start Date Expiration Date V isits Requested Visits Authorized [id number] Closed Auto-Generate d Referral 09/25/2022 10/25/2023 1 1 [facility] for referral (narrative)* Diagnostic Procedure Only (Routine) - Closed Specialty Diagnoses / Procedures Referred By Contac t Referred To Contact BR IMAGING Diagnoses Screening breast examination Procedures JESUS SCREENING SCREENING MAMMOGRAPHY BI 2-VIEW BREAST INC CAD Santhosh Holden MD [address] [place] [address] [facility] [address] [facility] [place] [address] Referral ID Status Reason Start Date Expiration Date V isits Requested Visits Authorized [id number] Closed Auto-Generate d Referral 05/29/2022 06/28/2023 1 1 [facility] for referral (narrative)* Outpatient Procedure (Routine) - Additional Clinical Info Needed Specialty Diagnoses / Procedures Referred By Contac t Referred To Contact [facility] Diagnoses Mild CAD SOB (shortness of breath) Procedures ECHO ECHO TTHRC R-T 2D W/WOM-MODE COMPL SPEC&COLR D Ganesh, Radha, COAL SCREENER.THIRD SHIFT LIEUTENANT [address] [place] [address] [facility] [place] [address] [place] [address] Referral ID Status Reason Start Date Expiration Date Visits Requested Visits Authorized [id number] Additional Clinical Info Needed Auto-Generat ed Referral 05/08/2023 05/07/2024 1 1 [facility] for referral (narrative)* Diagnostic Procedure Only (Routine) - Authorized Specialty Diagnoses / Procedures Referred By Demetriusac t Referred To Contact [facility] Diagnoses KRZYSZTOF (obstructive sleep apnea) Procedures HOME SLEEP APNEA TEST (HSAT) SLEEP STD AIRFLOW HRT RATE&O2 SAT EFFORT UNATT Santhosh Holden MD [address] [place] [address] Neurological [place] [id number] Referral ID Status Reason Start Date Expiration Date Visits Requested Visits Authorized [id number] Authorized Auto-Generat ed Referral 07/24/2023 07/23/2024 1 1 [facility] for referral (narrative)* Diagnostic Procedure Only (Routine) - Closed Specialty Diagnoses / Procedures Referred By Rachael t Referred To Contact XR IMAGING Diagnoses Finger pain, right Procedures XR DIGIT GENERAL 3V FRONTAL/LAT/OBL RIGHT RADEX FINGR MINIMUM 2 VIEWS Santhosh Holden MD [facility] [place] [address] Xr Imaging [facility] Referral ID Status Reason Start Date Expiration Date V isits Requested Visits Authorized [id number] Closed Auto-Generate d Referral 05/29/2022 06/28/2023 1 1 [facility] for referral (narrative)* Diagnostic Procedure Only (Routine) - New Request Specialty Diagnoses / Procedures Referred By Contrandall t Referred To Contact BR IMAGING Diagnoses Encounter for screening mammogram for breast cancer Procedures JESUS SCREENING W TIFFANY SCREENING DIGITAL BREAST TOMOSYNTHESIS BI SCREENING MAMMOGRAPHY BI 2-VIEW BREAST INC CAD Santhosh Holden MD [address] [place] [address] [facility] Imaging [address] [place] [address] Referral ID Status Reason Start Date Expiration Date Visits Requested Visits Authorized [id number] New Request Auto-Generat ed Referral 04/15/2025 1 1 [facility] for referral (narrative)No reason for referral information [facility] Work Phone: Reason for visit Narrative* Diagnostic Procedure Only (Routine) - Closed Specialty Diagnoses / Procedures Referred By Contac t Referred To Contact XR IMAGING Diagnoses Pain Procedures XR FOOT GENERAL 3V AP/LAT/OBL BILATERAL RADEX FOOT COMPLETE MINIMUM 3 VIEWS Dru Sahu [address] [place] [address] Xr Imaging Referral ID Status Reason Start Date Expiration Date V isits Requested Visits Authorized [id number] Closed Auto-Generate d Referral 07/30/2021 08/29/2022 1 1 [facility] for visit Narrative* Diagnostic Procedure Only (Routine) - Closed Specialty Diagnoses / Procedures Referred By Contac t Referred To Contact XR IMAGING Diagnoses Other diabetic neurological complication associated with type 2 diabetes mellitus (HCC) Hammertoe of left foot Procedures XR FOOT GENERAL 3V AP/LAT/OBL LEFT RADEX FOOT COMPLETE MINIMUM 3 VIEWS Dru Sahu [address] [place] [address] Xr Imaging Referral ID Status Reason Start Date Expiration Date V isits Requested Visits Authorized [id number] Closed Auto-Generate d Referral 12/18/2021 01/17/2023 1 1 [facility] for visit Narrative* Diagnostic Procedure Only (Routine) - Closed Specialty Diagnoses / Procedures Referred By Contac t Referred To Contact XR IMAGING Diagnoses Pain Procedures XR FOOT GENERAL 3V AP/LAT/OBL RIGHT RADEX FOOT COMPLETE MINIMUM 3 VIEWS NeshaDru rodriguez [address] [place] [address] [place] [address] Referral ID Status Reason Start Date Expiration Date V isits Requested Visits Authorized [id number] Closed Auto-Generate d Referral 09/25/2022 10/25/2023 1 1 [facility] for visit Narrative* Diagnostic Procedure Only (Routine) - Closed Specialty Diagnoses / Procedures Referred By Contac t Referred To Contact BR IMAGING Diagnoses Screening breast examination Procedures JESUS SCREENING SCREENING MAMMOGRAPHY BI 2-VIEW BREAST INC CAD Santhosh Holden MD [address] [place] [address] Br Imaging [address] [place] [address] Referral ID Status Reason Start Date Expiration Date V isits Requested Visits Authorized [id number] Closed Auto-Generate d Referral 05/29/2022 06/28/2023 1 1 [facility] for visit Narrative* Diagnostic Procedure Only (Routine) - Closed Specialty Diagnoses / Procedures Referred By Contac t Referred To Contact XR IMAGING Diagnoses Hammer toe of left foot Procedures XR FOOT GENERAL 3V AP/LAT/OBL LEFT RADEX FOOT COMPLETE MINIMUM 3 VIEWS [facility] [address] [place] [address] [place] [address] Referral ID Status Reason Start Date Expiration Date V isits Requested Visits Authorized [id number] Closed Auto-Generate d Referral 01/06/2022 02/05/2023 1 1 [facility] for visit Narrative* Diagnostic Procedure Only (Routine) - Closed Specialty Diagnoses / Procedures Referred By Contac t Referred To Contact XR IMAGING Diagnoses Finger pain, right Procedures XR DIGIT GENERAL 3V FRONTAL/LAT/OBL RIGHT RADEX FINGR MINIMUM 2 VIEWS Santhosh Holden MD [address] [place] [address] [place] [address] Referral ID Status Reason Start Date Expiration Date V isits Requested Visits Authorized [id number] Closed Auto-Generate d Referral 05/29/2022 06/28/2023 1 1 [facility] for visit Narrative* Diagnostic Procedure Only (Urgent) - Closed Specialty Diagnoses / Procedures Referred By Contac t Referred To Contact XR IMAGING Diagnoses Cellulitis and abscess of toe of right foot Procedures XR TOE AP/LAT/OBL RIGHT RADEX TOE MINIMUM 2 VIEWS Dru Sahu [address] [place] [address] Phone: tel: fax: [place] [address] Referral ID Status Reason Start Date Expiration Date V isits Requested Visits Authorized [id number] Closed Auto-Generate d Referral 05/05/2024 06/04/2025 1 1 [facility] for visit Narrative* Diagnostic Procedure Only (Routine) - Closed Specialty Diagnoses / Procedures Referred By Rachael t Referred To Contact XR IMAGING Diagnoses Closed displaced fracture of phalanx of right great toe, unspecified phalanx, initial encounter Procedures XR TOE AP/LAT/OBL RIGHT RADEX TOE MINIMUM 2 VIEWS Dru Sahu [address] [place] [address] Phone: tel: fax: [place] [address] Referral ID Status Reason Start Date Expiration Date V isits Requested Visits Authorized [id number] Closed Auto-Generate d Referral 05/13/2024 06/09/2025 1 1 [facility] for visit Narrative* Diagnostic Procedure Only (Routine) - Closed Specialty Diagnoses / Procedures Referred By Rachael t Referred To Contact XR IMAGING Diagnoses Closed nondisplaced fracture of phalanx of right great toe, unspecified phalanx, initial encounter Procedures XR TOE AP/LAT/OBL RIGHT RADEX TOE MINIMUM 2 VIEWS rDu Sahu [address] [place] [address] Phone: tel: fax: [place] [address] Referral ID Status Reason Start Date Expiration Date V isits Requested Visits Authorized [id number] Closed Auto-Generate d Referral 06/03/2024 06/12/2025 1 1 [facility] Summary Purpose Family History No Family History Records Found Relationship Condition Age at Onset Recorded Date/T jesusita Unknown Family History?No pe rtinent history Unknown December 31, 2016 5:29pm Family History?No pe rtinent history Unknown December 31, 2016 5:29pm Advance Directives No Advanced Directives Records FoundDocuments on File Type Date 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 Advance Directive(s) 05/16/2020 5:51 AM Advance Directive(s) 04/26/2020 10:10 AM Advance Directive(s) 05/21/2018 6:19 AM Advance Directive(s) 05/19/2018 11:00 AM Advance Directive(s) 03/25/2018 10:54 AM Advance Directive(s) 03/20/2016 8:31 AM Advance Directive(s) 01/10/2016 1:55 PM Documents on File Type Date 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 Advance Directive(s) 05/16/2020 5:51 AM Advance Directive(s) 04/26/2020 10:10 AM Advance Directive(s) 05/21/2018 6:19 AM Advance Directive(s) 05/19/2018 11:00 AM Advance Directive(s) 03/25/2018 10:54 AM Advance Directive(s) 03/20/2016 8:31 AM Advance Directive(s) 01/10/2016 1:55 PM Documents on File Type Date 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 Advance Directive(s) 05/16/2020 5:51 AM Advance Directive(s) 05/19/2018 11:00 AM Documents on File Type Date 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 Advance Directive(s) 05/16/2020 5:51 AM Advance Directive(s) 05/19/2018 11:00 AM Advance Directive Response Recorded Date/ Time Advance Directives No August 22 2:59pm Living Will No October 29, 2022 3:40pm Power of Lining Folder No October 29 3:40pm Documents on File Type Date 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 Yes August 29, 2024 10:04am Advance Directives No August 22 2:59pm Health Concerns Infection Onset Date Last Indicated Resolved Time COVID-19 Rule-Out 08/05/2021 08/05/2021 Infection Onset Date Last Indicated Resolved Time COVID-19 Rule-Out 08/05/2021 08/05/2021 08/05/2021 10:07 PM EDT Medications Administered Section Active Administered Medications - up to 3 most recent administrations Medication Order MAR Action Action Date Dose Rate Site PHENYLephrine 2.5 % 1 Drop (AK-DILATE) 1 Drop, BOTH EYES, DIRECTED, Starting on Thu05/30/22 at 1500, Until 05/31/22 at 0259, Administer for dilation PROTECT FROM LIGHT Given 05/30/2022 3:00 PM EST 1 Drop proparacaine 0.5 % 1 Drop (ALCAINE) 1 Drop, BOTH EYES, DIRECTED, Starting on Thu05/30/22 at 1500, Until 05/31/22 at 0259, Administer for pneumo tonometry, tonopen tonometry, or pachymetry. In the event of a proparacaine shortage, administer tetracaine 0.5% ophthalmic drops 1 drop in the left eye as directed for pneumo tonometry, tonopen tonometry, or pachymetry Given 05/30/2022 3:00 PM EST 1 Drop tropicamide 1 % 1 Drop (MYDRIACYL) 1 Drop, BOTH EYES, DIRECTED, Starting on Thu05/30/22 at 1500, Until 05/31/22 at 0259, Administer for dilation Given 05/30/2022 3:00 PM EST 1 Drop Chief Complaint and Reason for Visit Chief Complaint FALL Chief Complaint Admit Date fall August 29, 2024 9:18a m Reason for Referral Specialty Diagnoses / Procedures Referred By Rachael yanez Referred To Contact Cardiology Diagnoses Primary hypertension Coronary artery disease involving [place] heart without angina pectoris, unspecified vessel or lesion type Procedures CONSULT TO CARDIOLOGY OFFICE/OUTPATIENT [facility] 60-74 MINUTES Santhosh Holden MD [address] [place] [address] Referral ID Status Reason Start Date Expiration Date Visits Requested Visits Authorized [id number] Authorized PCP Requested Referral 12/05/2022 12/05/2023 1 1 Specialty Diagnoses / Procedures Referred By Contac t Referred To Contact General Surgery Diagnoses 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 History of colonic polyps Procedures CONSULT TO GENERAL SURGERY OFFICE/OUTPATIENT [facility] MDM 60-74 MINUTES Santhosh Holden MD [address] [place] [address] Referral ID Status Reason Start Date Expiration Date Visits Requested Visits Authorized [id number] Authorized PCP Requested Referral 12/05/2022 12/05/2023 1 1 Specialty Diagnoses / Procedures Referred By Contac t Referred To Contact Diagnoses Type 2 diabetes mellitus with diabetic neuropathy, without long-term current use of insulin ([facility]) Santhosh Holden MD [address] [place] [address] Referral ID Status Reason Start Date Expiration Date Visits Re quested Visits Authorized [id number] Closed 1 1 Specialty Diagnoses / Procedures Referred By Contac t Referred To Contact Diagnoses Other specified hearing loss, unspecified ear Procedures HEARING TEST/AUDIOGRAM COMPRE AUDIOMETRY THRESHOLD EVAL SP ALFAIJ Dru Collado MD [address] [address] [facility] [address] [place] [address] Referral ID Status Reason Start Date Expiration Date Visits Requested Visits Authorized [id number] Pending Review Auto-Generat ed Referral 09/23/2023 09/23/2024 1 1 Additional Source Comments INFORMATION SOURCE (unrecogn ized section and content) DATE CREATED AUTHOR 04/21/2021 [email or web address] [facility] DATE CREATED AUTHOR AUTHOR'S ORGANIZ ATION 03/19/2023 [facility] DATE CREATED AUTHOR AUTHOR'S ORGANIZ ATION 01/07/2024 [facility] DATE CREATED AUTHOR AUTHOR'S ORGANIZ ATION 06/25/2024 [facility] DATE CREATED AUTHOR AUTHOR'S ORGANIZ ATION 09/01/2024 [facility] DATE CREATED AUTHOR AUTHOR'S ORGANIZ ATION 2024 [facility] Source Comments (unrecognize d section and content) In the event this informatio n is protected by the Federal Confidentiality of Alcohol and Drug Abuse Patient Records regulations: The Federal rules restrict any use of the information to criminally investigate or prosecute any alcohol or drug abuse patient.[facility] the event this information is protected by the Federal Confidentiality of Alcohol and Drug Abuse Patient Records regulations: The Federal rules restrict any use of the information to criminally investigate or prosecute any alcohol or drug abuse patient.[facility] SystemIn the event this information is protected by the Federal Confidentiality of Alcohol and Drug Abuse Patient Records regulations: The Federal rules restrict any use of the information to criminally investigate or prosecute any alcohol or drug abuse patient.[facility] SystemIn the event this information is protected by the Federal Confidentiality of Alcohol and Drug Abuse Patient Records regulations: The Federal rules restrict any use of the information to criminally investigate or prosecute any alcohol or drug abuse patient.[facility] SystemIn the event this information is protected by the Federal Confidentiality of Alcohol and Drug Abuse Patient Records regulations: The Federal rules restrict any use of the information to criminally investigate or prosecute any alcohol or drug abuse patient.[facility] SystemIn the event this information is protected by the Federal Confidentiality of Alcohol and Drug Abuse Patient Records regulations: The Federal rules restrict any use of the information to criminally investigate or prosecute any alcohol or drug abuse patient.[facility] SystemIn the event this information is protected by the Federal Confidentiality of Alcohol and Drug Abuse Patient Records regulations: The Federal rules restrict any use of the information to criminally investigate or prosecute any alcohol or drug abuse patient.[facility] SystemIn the event this information is protected by the Federal Confidentiality of Alcohol and Drug Abuse Patient Records regulations: The Federal rules restrict any use of the information to criminally investigate or prosecute any alcohol or drug abuse patient.[facility] SystemIn the event this information is protected by the Federal Confidentiality of Alcohol and Drug Abuse Patient Records regulations: The Federal rules restrict any use of the information to criminally investigate or prosecute any alcohol or drug abuse patient.[facility]In the event this information is protected by the Federal Confidentiality of Alcohol and Drug Abuse Patient Records regulations: The Federal rules restrict any use of the information to criminally investigate or prosecute any alcohol or drug abuse patient.[facility] SystemIn the event this information is protected by the Federal Confidentiality of Alcohol and Drug Abuse Patient Records regulations: The Federal rules restrict any use of the information to criminally investigate or prosecute any alcohol or drug abuse patient.[facility]In the event this information is protected by the Federal Confidentiality of Alcohol and Drug Abuse Patient Records regulations: The Federal rules restrict any use of the information to criminally investigate or prosecute any alcohol or drug abuse patient.[facility]In the event this information is protected by the Federal Confidentiality of Alcohol and Drug Abuse Patient Records regulations: The Federal rules restrict any use of the information to criminally investigate or prosecute any alcohol or drug abuse patient.[facility]In the event this information is protected by the Federal Confidentiality of Alcohol and Drug Abuse Patient Records regulations: The Federal rules restrict any use of the information to criminally investigate or prosecute any alcohol or drug abuse patient.[facility]In the event this information is protected by the Federal Confidentiality of Alcohol and Drug Abuse Patient Records regulations: The Federal rules restrict any use of the information to criminally investigate or prosecute any alcohol or drug abuse patient.[facility]In the event this information is protected by the Federal Confidentiality of Alcohol and Drug Abuse Patient Records regulations: The Federal rules restrict any use of the information to criminally investigate or prosecute any alcohol or drug abuse patient.[facility]In the event this information is protected by the Federal Confidentiality of Alcohol and Drug Abuse Patient Records regulations: The Federal rules restrict any use of the information to criminally investigate or prosecute any alcohol or drug abuse patient.[facility]In the event this information is protected by the Federal Confidentiality of Alcohol and Drug Abuse Patient Records regulations: The Federal rules restrict any use of the information to criminally investigate or prosecute any alcohol or drug abuse patient.[facility]In the event this information is protected by the Federal Confidentiality of Alcohol and Drug Abuse Patient Records regulations: The Federal rules restrict any use of the information to criminally investigate or prosecute any alcohol or drug abuse patient.[facility]In the event this information is protected by the Federal Confidentiality of Alcohol and Drug Abuse Patient Records regulations: The Federal rules restrict any use of the information to criminally investigate or prosecute any alcohol or drug abuse patient.[facility]In the event this information is protected by the Federal Confidentiality of Alcohol and Drug Abuse Patient Records regulations: The Federal rules restrict any use of the information to criminally investigate or prosecute any alcohol or drug abuse patient.[facility] SystemIn the event this information is protected by the Federal Confidentiality of Alcohol and Drug Abuse Patient Records regulations: The Federal rules restrict any use of the information to criminally investigate or prosecute any alcohol or drug abuse patient.[facility]In the event this information is protected by the Federal Confidentiality of Alcohol and Drug Abuse Patient Records regulations: The Federal rules restrict any use of the information to criminally investigate or prosecute any alcohol or drug abuse patient.[facility]In the event this information is protected by the Federal Confidentiality of Alcohol and Drug Abuse Patient Records regulations: The Federal rules restrict any use of the information to criminally investigate or prosecute any alcohol or drug abuse patient.[facility]In the event this information is protected by the Federal Confidentiality of Alcohol and Drug Abuse Patient Records regulations: The Federal rules restrict any use of the information to criminally investigate or prosecute any alcohol or drug abuse patient.[facility]In the event this information is protected by the Federal Confidentiality of Alcohol and Drug Abuse Patient Records regulations: The Federal rules restrict any use of the information to criminally investigate or prosecute any alcohol or drug abuse patient.[facility]In the event this information is protected by the Federal Confidentiality of Alcohol and Drug Abuse Patient Records regulations: The Federal rules restrict any use of the information to criminally investigate or prosecute any alcohol or drug abuse patient.[facility]In the event this information is protected by the Federal Confidentiality of Alcohol and Drug Abuse Patient Records regulations: The Federal rules restrict any use of the information to criminally investigate or prosecute any alcohol or drug abuse patient.[facility]In the event this information is protected by the Federal Confidentiality of Alcohol and Drug Abuse Patient Records regulations: The Federal rules restrict any use of the information to criminally investigate or prosecute any alcohol or drug abuse patient.[facility]In the event this information is protected by the Federal Confidentiality of Alcohol and Drug Abuse Patient Records regulations: The Federal rules restrict any use of the information to criminally investigate or prosecute any alcohol or drug abuse patient.[facility]In the event this information is protected by the Federal Confidentiality of Alcohol and Drug Abuse Patient Records regulations: The Federal rules restrict any use of the information to criminally investigate or prosecute any alcohol or drug abuse patient.[facility]In the event this information is protected by the Federal Confidentiality of Alcohol and Drug Abuse Patient Records regulations: The Federal rules restrict any use of the information to criminally investigate or prosecute any alcohol or drug abuse patient.[facility]In the event this information is protected by the Federal Confidentiality of Alcohol and Drug Abuse Patient Records regulations: The Federal rules restrict any use of the information to criminally investigate or prosecute any alcohol or drug abuse patient.[facility]In the event this information is protected by the Federal Confidentiality of Alcohol and Drug Abuse Patient Records regulations: The Federal rules restrict any use of the information to criminally investigate or prosecute any alcohol or drug abuse patient.[facility]In the event this information is protected by the Federal Confidentiality of Alcohol and Drug Abuse Patient Records regulations: The Federal rules restrict any use of the information to criminally investigate or prosecute any alcohol or drug abuse patient.[facility]In the event this information is protected by the Federal Confidentiality of Alcohol and Drug Abuse Patient Records regulations: The Federal rules restrict any use of the information to criminally investigate or prosecute any alcohol or drug abuse patient.[facility]In the event this information is protected by the Federal Confidentiality of Alcohol and Drug Abuse Patient Records regulations: The Federal rules restrict any use of the information to criminally investigate or prosecute any alcohol or drug abuse patient.[facility]In the event this information is protected by the Federal Confidentiality of Alcohol and Drug Abuse Patient Records regulations: The Federal rules restrict any use of the information to criminally investigate or prosecute any alcohol or drug abuse patient.[facility]In the event this information is protected by the Federal Confidentiality of Alcohol and Drug Abuse Patient Records regulations: The Federal rules restrict any use of the information to criminally investigate or prosecute any alcohol or drug abuse patient.[facility]In the event this information is protected by the Federal Confidentiality of Alcohol and Drug Abuse Patient Records regulations: The Federal rules restrict any use of the information to criminally investigate or prosecute any alcohol or drug abuse patient.[facility]In the event this information is protected by the Federal Confidentiality of Alcohol and Drug Abuse Patient Records regulations: The Federal rules restrict any use of the information to criminally investigate or prosecute any alcohol or drug abuse patient.[facility]In the event this information is protected by the Federal Confidentiality of Alcohol and Drug Abuse Patient Records regulations: The Federal rules restrict any use of the information to criminally investigate or prosecute any alcohol or drug abuse patient.[facility]In the event this information is protected by the Federal Confidentiality of Alcohol and Drug Abuse Patient Records regulations: The Federal rules restrict any use of the information to criminally investigate or prosecute any alcohol or drug abuse patient.[facility]In the event this information is protected by the Federal Confidentiality of Alcohol and Drug Abuse Patient Records regulations: The Federal rules restrict any use of the information to criminally investigate or prosecute any alcohol or drug abuse patient.[facility]In the event this information is protected by the Federal Confidentiality of Alcohol and Drug Abuse Patient Records regulations: The Federal rules restrict any use of the information to criminally investigate or prosecute any alcohol or drug abuse patient.[facility]In the event this information is protected by the Federal Confidentiality of Alcohol and Drug Abuse Patient Records regulations: The Federal rules restrict any use of the information to criminally investigate or prosecute any alcohol or drug abuse patient.[facility]In the event this information is protected by the Federal Confidentiality of Alcohol and Drug Abuse Patient Records regulations: The Federal rules restrict any use of the information to criminally investigate or prosecute any alcohol or drug abuse patient.[facility]In the event this information is protected by the Federal Confidentiality of Alcohol and Drug Abuse Patient Records regulations: The Federal rules restrict any use of the information to criminally investigate or prosecute any alcohol or drug abuse patient.[facility]In the event this information is protected by the Federal Confidentiality of Alcohol and Drug Abuse Patient Records regulations: The Federal rules restrict any use of the information to criminally investigate or prosecute any alcohol or drug abuse patient.[facility]In the event this information is protected by the Federal Confidentiality of Alcohol and Drug Abuse Patient Records regulations: The Federal rules restrict any use of the information to criminally investigate or prosecute any alcohol or drug abuse patient.[facility]In the event this information is protected by the Federal Confidentiality of Alcohol and Drug Abuse Patient Records regulations: The Federal rules restrict any use of the information to criminally investigate or prosecute any alcohol or drug abuse patient.[facility]In the event this information is protected by the Federal Confidentiality of Alcohol and Drug Abuse Patient Records regulations: The Federal rules restrict any use of the information to criminally investigate or prosecute any alcohol or drug abuse patient.[facility]In the event this information is protected by the Federal Confidentiality of Alcohol and Drug Abuse Patient Records regulations: The Federal rules restrict any use of the information to criminally investigate or prosecute any alcohol or drug abuse patient.[facility]In the event this information is protected by the Federal Confidentiality of Alcohol and Drug Abuse Patient Records regulations: The Federal rules restrict any use of the information to criminally investigate or prosecute any alcohol or drug abuse patient.[facility]In the event this information is protected by the Federal Confidentiality of Alcohol and Drug Abuse Patient Records regulations: The Federal rules restrict any use of the information to criminally investigate or prosecute any alcohol or drug abuse patient.[facility]In the event this information is protected by the Federal Confidentiality of Alcohol and Drug Abuse Patient Records regulations: The Federal rules restrict any use of the information to criminally investigate or prosecute any alcohol or drug abuse patient.[facility]In the event this information is protected by the Federal Confidentiality of Alcohol and Drug Abuse Patient Records regulations: The Federal rules restrict any use of the information to criminally investigate or prosecute any alcohol or drug abuse patient.[facility]In the event this information is protected by the Federal Confidentiality of Alcohol and Drug Abuse Patient Records regulations: The Federal rules restrict any use of the information to criminally investigate or prosecute any alcohol or drug abuse patient.[facility]In the event this information is protected by the Federal Confidentiality of Alcohol and Drug Abuse Patient Records regulations: The Federal rules restrict any use of the information to criminally investigate or prosecute any alcohol or drug abuse patient.[facility]In the event this information is protected by the Federal Confidentiality of Alcohol and Drug Abuse Patient Records regulations: The Federal rules restrict any use of the information to criminally investigate or prosecute any alcohol or drug abuse patient.[facility]In the event this information is protected by the Federal Confidentiality of Alcohol and Drug Abuse Patient Records regulations: The Federal rules restrict any use of the information to criminally investigate or prosecute any alcohol or drug abuse patient.[facility]In the event this information is protected by the Federal Confidentiality of Alcohol and Drug Abuse Patient Records regulations: The Federal rules restrict any use of the information to criminally investigate or prosecute any alcohol or drug abuse patient.[facility]In the event this information is protected by the Federal Confidentiality of Alcohol and Drug Abuse Patient Records regulations: The Federal rules restrict any use of the information to criminally investigate or prosecute any alcohol or drug abuse patient.[facility]In the event this information is protected by the Federal Confidentiality of Alcohol and Drug Abuse Patient Records regulations: The Federal rules restrict any use of the information to criminally investigate or prosecute any alcohol or drug abuse patient.[facility]In the event this information is protected by the Federal Confidentiality of Alcohol and Drug Abuse Patient Records regulations: The Federal rules restrict any use of the information to criminally investigate or prosecute any alcohol or drug abuse patient.[facility]In the event this information is protected by the Federal Confidentiality of Alcohol and Drug Abuse Patient Records regulations: The Federal rules restrict any use of the information to criminally investigate or prosecute any alcohol or drug abuse patient.[facility]In the event this information is protected by the Federal Confidentiality of Alcohol and Drug Abuse Patient Records regulations: The Federal rules restrict any use of the information to criminally investigate or prosecute any alcohol or drug abuse patient.[facility]In the event this information is protected by the Federal Confidentiality of Alcohol and Drug Abuse Patient Records regulations: The Federal rules restrict any use of the information to criminally investigate or prosecute any alcohol or drug abuse patient.[facility]In the event this information is protected by the Federal Confidentiality of Alcohol and Drug Abuse Patient Records regulations: The Federal rules restrict any use of the information to criminally investigate or prosecute any alcohol or drug abuse patient.[facility]In the event this information is protected by the Federal Confidentiality of Alcohol and Drug Abuse Patient Records regulations: The Federal rules restrict any use of the information to criminally investigate or prosecute any alcohol or drug abuse patient.[facility]In the event this information is protected by the Federal Confidentiality of Alcohol and Drug Abuse Patient Records regulations: The Federal rules restrict any use of the information to criminally investigate or prosecute any alcohol or drug abuse patient.[facility]In the event this information is protected by the Federal Confidentiality of Alcohol and Drug Abuse Patient Records regulations: The Federal rules restrict any use of the information to criminally investigate or prosecute any alcohol or drug abuse patient.[facility]In the event this information is protected by the Federal Confidentiality of Alcohol and Drug Abuse Patient Records regulations: The Federal rules restrict any use of the information to criminally investigate or prosecute any alcohol or drug abuse patient.[facility]In the event this information is protected by the Federal Confidentiality of Alcohol and Drug Abuse Patient Records regulations: The Federal rules restrict any use of the information to criminally investigate or prosecute any alcohol or drug abuse patient.[facility]In the event this information is protected by the Federal Confidentiality of Alcohol and Drug Abuse Patient Records regulations: The Federal rules restrict any use of the information to criminally investigate or prosecute any alcohol or drug abuse patient.[facility]In the event this information is protected by the Federal Confidentiality of Alcohol and Drug Abuse Patient Records regulations: The Federal rules restrict any use of the information to criminally investigate or prosecute any alcohol or drug abuse patient.[facility]In the event this information is protected by the Federal Confidentiality of Alcohol and Drug Abuse Patient Records regulations: The Federal rules restrict any use of the information to criminally investigate or prosecute any alcohol or drug abuse patient.[facility]In the event this information is protected by the Federal Confidentiality of Alcohol and Drug Abuse Patient Records regulations: The Federal rules restrict any use of the information to criminally investigate or prosecute any alcohol or drug abuse patient.[facility]In the event this information is protected by the Federal Confidentiality of Alcohol and Drug Abuse Patient Records regulations: The Federal rules restrict any use of the information to criminally investigate or prosecute any alcohol or drug abuse patient.[facility]In the event this information is protected by the Federal Confidentiality of Alcohol and Drug Abuse Patient Records regulations: The Federal rules restrict any use of the information to criminally investigate or prosecute any alcohol or drug abuse patient.[facility]In the event this information is protected by the Federal Confidentiality of Alcohol and Drug Abuse Patient Records regulations: The Federal rules restrict any use of the information to criminally investigate or prosecute any alcohol or drug abuse patient.[facility]In the event this information is protected by the Federal Confidentiality of Alcohol and Drug Abuse Patient Records regulations: The Federal rules restrict any use of the information to criminally investigate or prosecute any alcohol or drug abuse patient.[facility]In the event this information is protected by the Federal Confidentiality of Alcohol and Drug Abuse Patient Records regulations: The Federal rules restrict any use of the information to criminally investigate or prosecute any alcohol or drug abuse patient.[facility]In the event this information is protected by the Federal Confidentiality of Alcohol and Drug Abuse Patient Records regulations: The Federal rules restrict any use of the information to criminally investigate or prosecute any alcohol or drug abuse patient.[facility]In the event this information is protected by the Federal Confidentiality of Alcohol and Drug Abuse Patient Records regulations: The Federal rules restrict any use of the information to criminally investigate or prosecute any alcohol or drug abuse patient.[facility]In the event this information is protected by the Federal Confidentiality of Alcohol and Drug Abuse Patient Records regulations: The Federal rules restrict any use of the information to criminally investigate or prosecute any alcohol or drug abuse patient.[facility]In the event this information is protected by the Federal Confidentiality of Alcohol and Drug Abuse Patient Records regulations: The Federal rules restrict any use of the information to criminally investigate or prosecute any alcohol or drug abuse patient.[facility]In the event this information is protected by the Federal Confidentiality of Alcohol and Drug Abuse Patient Records regulations: The Federal rules restrict any use of the information to criminally investigate or prosecute any alcohol or drug abuse patient.The [facility] SystemIn the event this information is protected by the Federal Confidentiality of Alcohol and Drug Abuse Patient Records regulations: The Federal rules restrict any use of the information to criminally investigate or prosecute any alcohol or drug abuse patient.[facility] SystemIn the event this information is protected by the Federal Confidentiality of Alcohol and Drug Abuse Patient Records regulations: The Federal rules restrict any use of the information to criminally investigate or prosecute any alcohol or drug abuse patient.[facility] SystemIn the event this information is protected by the Federal Confidentiality of Alcohol and Drug Abuse Patient Records regulations: The Federal rules restrict any use of the information to criminally investigate or prosecute any alcohol or drug abuse patient.[facility] SystemIn the event this information is protected by the Federal Confidentiality of Alcohol and Drug Abuse Patient Records regulations: The Federal rules restrict any use of the information to criminally investigate or prosecute any alcohol or drug abuse patient.[facility] SystemIn the event this information is protected by the Federal Confidentiality of Alcohol and Drug Abuse Patient Records regulations: The Federal rules restrict any use of the information to criminally investigate or prosecute any alcohol or drug abuse patient.[facility] SystemIn the event this information is protected by the Federal Confidentiality of Alcohol and Drug Abuse Patient Records regulations: The Federal rules restrict any use of the information to criminally investigate or prosecute any alcohol or drug abuse patient.[facility] SystemIn the event this information is protected by the Federal Confidentiality of Alcohol and Drug Abuse Patient Records regulations: The Federal rules restrict any use of the information to criminally investigate or prosecute any alcohol or drug abuse patient.[facility] SystemIn the event this information is protected by the Federal Confidentiality of Alcohol and Drug Abuse Patient Records regulations: The Federal rules restrict any use of the information to criminally investigate or prosecute any alcohol or drug abuse patient.[facility] SystemIn the event this information is protected by the Federal Confidentiality of Alcohol and Drug Abuse Patient Records regulations: The Federal rules restrict any use of the information to criminally investigate or prosecute any alcohol or drug abuse patient.[facility] SystemIn the event this information is protected by the Federal Confidentiality of Alcohol and Drug Abuse Patient Records regulations: The Federal rules restrict any use of the information to criminally investigate or prosecute any alcohol or drug abuse patient.[facility] SystemIn the event this information is protected by the Federal Confidentiality of Alcohol and Drug Abuse Patient Records regulations: The Federal rules restrict any use of the information to criminally investigate or prosecute any alcohol or drug abuse patient.[facility] SystemIn the event this information is protected by the Federal Confidentiality of Alcohol and Drug Abuse Patient Records regulations: The Federal rules restrict any use of the information to criminally investigate or prosecute any alcohol or drug abuse patient.[facility] SystemIn the event this information is protected by the Federal Confidentiality of Alcohol and Drug Abuse Patient Records regulations: The Federal rules restrict any use of the information to criminally investigate or prosecute any alcohol or drug abuse patient.[facility] SystemIn the event this information is protected by the Federal Confidentiality of Alcohol and Drug Abuse Patient Records regulations: The Federal rules restrict any use of the information to criminally investigate or prosecute any alcohol or drug abuse patient.[facility] SystemIn the event this information is protected by the Federal Confidentiality of Alcohol and Drug Abuse Patient Records regulations: The Federal rules restrict any use of the information to criminally investigate or prosecute any alcohol or drug abuse patient.[facility] SystemIn the event this information is protected by the Federal Confidentiality of Alcohol and Drug Abuse Patient Records regulations: The Federal rules restrict any use of the information to criminally investigate or prosecute any alcohol or drug abuse patient.[facility] SystemIn the event this information is protected by the Federal Confidentiality of Alcohol and Drug Abuse Patient Records regulations: The Federal rules restrict any use of the information to criminally investigate or prosecute any alcohol or drug abuse patient.[facility] SystemIn the event this information is protected by the Federal Confidentiality of Alcohol and Drug Abuse Patient Records regulations: The Federal rules restrict any use of the information to criminally investigate or prosecute any alcohol or drug abuse patient.[facility] SystemIn the event this information is protected by the Federal Confidentiality of Alcohol and Drug Abuse Patient Records regulations: The Federal rules restrict any use of the information to criminally investigate or prosecute any alcohol or drug abuse patient.[facility] SystemIn the event this information is protected by the Federal Confidentiality of Alcohol and Drug Abuse Patient Records regulations: The Federal rules restrict any use of the information to criminally investigate or prosecute any alcohol or drug abuse patient.[facility] SystemIn the event this information is protected by the Federal Confidentiality of Alcohol and Drug Abuse Patient Records regulations: The Federal rules restrict any use of the information to criminally investigate or prosecute any alcohol or drug abuse patient.[facility] SystemIn the event this information is protected by the Federal Confidentiality of Alcohol and Drug Abuse Patient Records regulations: The Federal rules restrict any use of the information to criminally investigate or prosecute any alcohol or drug abuse patient.[facility] SystemIn the event this information is protected by the Federal Confidentiality of Alcohol and Drug Abuse Patient Records regulations: The Federal rules restrict any use of the information to criminally investigate or prosecute any alcohol or drug abuse patient.[facility] SystemIn the event this information is protected by the Federal Confidentiality of Alcohol and Drug Abuse Patient Records regulations: The Federal rules restrict any use of the information to criminally investigate or prosecute any alcohol or drug abuse patient.[facility] SystemIn the event this information is protected by the Federal Confidentiality of Alcohol and Drug Abuse Patient Records regulations: The Federal rules restrict any use of the information to criminally investigate or prosecute any alcohol or drug abuse patient.[facility] SystemIn the event this information is protected by the Federal Confidentiality of Alcohol and Drug Abuse Patient Records regulations: The Federal rules restrict any use of the information to criminally investigate or prosecute any alcohol or drug abuse patient.[facility] SystemIn the event this information is protected by the Federal Confidentiality of Alcohol and Drug Abuse Patient Records regulations: The Federal rules restrict any use of the information to criminally investigate or prosecute any alcohol or drug abuse patient.[facility] SystemIn the event this information is protected by the Federal Confidentiality of Alcohol and Drug Abuse Patient Records regulations: The Federal rules restrict any use of the information to criminally investigate or prosecute any alcohol or drug abuse patient.[facility] SystemIn the event this information is protected by the Federal Confidentiality of Alcohol and Drug Abuse Patient Records regulations: The Federal rules restrict any use of the information to criminally investigate or prosecute any alcohol or drug abuse patient.[facility] SystemIn the event this information is protected by the Federal Confidentiality of Alcohol and Drug Abuse Patient Records regulations: The Federal rules restrict any use of the information to criminally investigate or prosecute any alcohol or drug abuse patient.[facility] SystemIn the event this information is protected by the Federal Confidentiality of Alcohol and Drug Abuse Patient Records regulations: The Federal rules restrict any use of the information to criminally investigate or prosecute any alcohol or drug abuse patient.[facility] SystemIn the event this information is protected by the Federal Confidentiality of Alcohol and Drug Abuse Patient Records regulations: The Federal rules restrict any use of the information to criminally investigate or prosecute any alcohol or drug abuse patient.[facility] SystemIn the event this information is protected by the Federal Confidentiality of Alcohol and Drug Abuse Patient Records regulations: The Federal rules restrict any use of the information to criminally investigate or prosecute any alcohol or drug abuse patient.[facility] SystemIn the event this information is protected by the Federal Confidentiality of Alcohol and Drug Abuse Patient Records regulations: The Federal rules restrict any use of the information to criminally investigate or prosecute any alcohol or drug abuse patient.[facility] SystemIn the event this information is protected by the Federal Confidentiality of Alcohol and Drug Abuse Patient Records regulations: The Federal rules restrict any use of the information to criminally investigate or prosecute any alcohol or drug abuse patient.[facility] SystemIn the event this information is protected by the Federal Confidentiality of Alcohol and Drug Abuse Patient Records regulations: The Federal rules restrict any use of the information to criminally investigate or prosecute any alcohol or drug abuse patient.[facility] SystemIn the event this information is protected by the Federal Confidentiality of Alcohol and Drug Abuse Patient Records regulations: The Federal rules restrict any use of the information to criminally investigate or prosecute any alcohol or drug abuse patient.[facility] SystemIn the event this information is protected by the Federal Confidentiality of Alcohol and Drug Abuse Patient Records regulations: The Federal rules restrict any use of the information to criminally investigate or prosecute any alcohol or drug abuse patient.[facility] SystemIn the event this information is protected by the Federal Confidentiality of Alcohol and Drug Abuse Patient Records regulations: The Federal rules restrict any use of the information to criminally investigate or prosecute any alcohol or drug abuse patient.[facility] SystemIn the event this information is protected by the Federal Confidentiality of Alcohol and Drug Abuse Patient Records regulations: The Federal rules restrict any use of the information to criminally investigate or prosecute any alcohol or drug abuse patient.[facility] SystemIn the event this information is protected by the Federal Confidentiality of Alcohol and Drug Abuse Patient Records regulations: The Federal rules restrict any use of the information to criminally investigate or prosecute any alcohol or drug abuse patient.[facility] SystemIn the event this information is protected by the Federal Confidentiality of Alcohol and Drug Abuse Patient Records regulations: The Federal rules restrict any use of the information to criminally investigate or prosecute any alcohol or drug abuse patient.[facility]In the event this information is protected by the Federal Confidentiality of Alcohol and Drug Abuse Patient Records regulations: The Federal rules restrict any use of the information to criminally investigate or prosecute any alcohol or drug abuse patient.[facility]In the event this information is protected by the Federal Confidentiality of Alcohol and Drug Abuse Patient Records regulations: The Federal rules restrict any use of the information to criminally investigate or prosecute any alcohol or drug abuse patient.[facility]In the event this information is protected by the Federal Confidentiality of Alcohol and Drug Abuse Patient Records regulations: The Federal rules restrict any use of the information to criminally investigate or prosecute any alcohol or drug abuse patient.[facility]In the event this information is protected by the Federal Confidentiality of Alcohol and Drug Abuse Patient Records regulations: The Federal rules restrict any use of the information to criminally investigate or prosecute any alcohol or drug abuse patient.[facility]In the event this information is protected by the Federal Confidentiality of Alcohol and Drug Abuse Patient Records regulations: The Federal rules restrict any use of the information to criminally investigate or prosecute any alcohol or drug abuse patient.[facility]In the event this information is protected by the Federal Confidentiality of Alcohol and Drug Abuse Patient Records regulations: The Federal rules restrict any use of the information to criminally investigate or prosecute any alcohol or drug abuse patient.[facility]In the event this information is protected by the Federal Confidentiality of Alcohol and Drug Abuse Patient Records regulations: The Federal rules restrict any use of the information to criminally investigate or prosecute any alcohol or drug abuse patient.[facility]In the event this information is protected by the Federal Confidentiality of Alcohol and Drug Abuse Patient Records regulations: The Federal rules restrict any use of the information to criminally investigate or prosecute any alcohol or drug abuse patient.[facility] SystemIn the event this information is protected by the Federal Confidentiality of Alcohol and Drug Abuse Patient Records regulations: The Federal rules restrict any use of the information to criminally investigate or prosecute any alcohol or drug abuse patient.[facility] SystemIn the event this information is protected by the Federal Confidentiality of Alcohol and Drug Abuse Patient Records regulations: The Federal rules restrict any use of the information to criminally investigate or prosecute any alcohol or drug abuse patient.[facility] SystemIn the event this information is protected by the Federal Confidentiality of Alcohol and Drug Abuse Patient Records regulations: The Federal rules restrict any use of the information to criminally investigate or prosecute any alcohol or drug abuse patient.[facility]In the event this information is protected by the Federal Confidentiality of Alcohol and Drug Abuse Patient Records regulations: The Federal rules restrict any use of the information to criminally investigate or prosecute any alcohol or drug abuse patient.[facility]In the event this information is protected by the Federal Confidentiality of Alcohol and Drug Abuse Patient Records regulations: The Federal rules restrict any use of the information to criminally investigate or prosecute any alcohol or drug abuse patient.[facility]In the event this information is protected by the Federal Confidentiality of Alcohol and Drug Abuse Patient Records regulations: The Federal rules restrict any use of the information to criminally investigate or prosecute any alcohol or drug abuse patient.[facility]In the event this information is protected by the Federal Confidentiality of Alcohol and Drug Abuse Patient Records regulations: The Federal rules restrict any use of the information to criminally investigate or prosecute any alcohol or drug abuse patient.[facility]In the event this information is protected by the Federal Confidentiality of Alcohol and Drug Abuse Patient Records regulations: The Federal rules restrict any use of the information to criminally investigate or prosecute any alcohol or drug abuse patient.[facility]In the event this information is protected by the Federal Confidentiality of Alcohol and Drug Abuse Patient Records regulations: The Federal rules restrict any use of the information to criminally investigate or prosecute any alcohol or drug abuse patient.[facility]In the event this information is protected by the Federal Confidentiality of Alcohol and Drug Abuse Patient Records regulations: The Federal rules restrict any use of the information to criminally investigate or prosecute any alcohol or drug abuse patient.[facility]In the event this information is protected by the Federal Confidentiality of Alcohol and Drug Abuse Patient Records regulations: The Federal rules restrict any use of the information to criminally investigate or prosecute any alcohol or drug abuse patient.[facility]In the event this information is protected by the Federal Confidentiality of Alcohol and Drug Abuse Patient Records regulations: The Federal rules restrict any use of the information to criminally investigate or prosecute any alcohol or drug abuse patient.[facility]In the event this information is protected by the Federal Confidentiality of Alcohol and Drug Abuse Patient Records regulations: The Federal rules restrict any use of the information to criminally investigate or prosecute any alcohol or drug abuse patient.[facility] SystemIn the event this information is protected by the Federal Confidentiality of Alcohol and Drug Abuse Patient Records regulations: The Federal rules restrict any use of the information to criminally investigate or prosecute any alcohol or drug abuse patient.[facility]In the event this information is protected by the Federal Confidentiality of Alcohol and Drug Abuse Patient Records regulations: The Federal rules restrict any use of the information to criminally investigate or prosecute any alcohol or drug abuse patient.[facility]In the event this information is protected by the Federal Confidentiality of Alcohol and Drug Abuse Patient Records regulations: The Federal rules restrict any use of the information to criminally investigate or prosecute any alcohol or drug abuse patient.[facility]In the event this information is protected by the Federal Confidentiality of Alcohol and Drug Abuse Patient Records regulations: The Federal rules restrict any use of the information to criminally investigate or prosecute any alcohol or drug abuse patient.[facility]In the event this information is protected by the Federal Confidentiality of Alcohol and Drug Abuse Patient Records regulations: The Federal rules restrict any use of the information to criminally investigate or prosecute any alcohol or drug abuse patient.[facility]In the event this information is protected by the Federal Confidentiality of Alcohol and Drug Abuse Patient Records regulations: The Federal rules restrict any use of the information to criminally investigate or prosecute any alcohol or drug abuse patient.[facility]In the event this information is protected by the Federal Confidentiality of Alcohol and Drug Abuse Patient Records regulations: The Federal rules restrict any use of the information to criminally investigate or prosecute any alcohol or drug abuse patient.[facility]In the event this information is protected by the Federal Confidentiality of Alcohol and Drug Abuse Patient Records regulations: The Federal rules restrict any use of the information to criminally investigate or prosecute any alcohol or drug abuse patient.[facility]In the event this information is protected by the Federal Confidentiality of Alcohol and Drug Abuse Patient Records regulations: The Federal rules restrict any use of the information to criminally investigate or prosecute any alcohol or drug abuse patient.[facility]In the event this information is protected by the Federal Confidentiality of Alcohol and Drug Abuse Patient Records regulations: The Federal rules restrict any use of the information to criminally investigate or prosecute any alcohol or drug abuse patient.[facility]In the event this information is protected by the Federal Confidentiality of Alcohol and Drug Abuse Patient Records regulations: The Federal rules restrict any use of the information to criminally investigate or prosecute any alcohol or drug abuse patient.[facility]In the event this information is protected by the Federal Confidentiality of Alcohol and Drug Abuse Patient Records regulations: The Federal rules restrict any use of the information to criminally investigate or prosecute any alcohol or drug abuse patient.[facility]In the event this information is protected by the Federal Confidentiality of Alcohol and Drug Abuse Patient Records regulations: The Federal rules restrict any use of the information to criminally investigate or prosecute any alcohol or drug abuse patient.[facility]In the event this information is protected by the Federal Confidentiality of Alcohol and Drug Abuse Patient Records regulations: The Federal rules restrict any use of the information to criminally investigate or prosecute any alcohol or drug abuse patient.[facility]In the event this information is protected by the Federal Confidentiality of Alcohol and Drug Abuse Patient Records regulations: The Federal rules restrict any use of the information to criminally investigate or prosecute any alcohol or drug abuse patient.[facility]In the event this information is protected by the Federal Confidentiality of Alcohol and Drug Abuse Patient Records regulations: The Federal rules restrict any use of the information to criminally investigate or prosecute any alcohol or drug abuse patient.[facility] SystemIn the event this information is protected by the Federal Confidentiality of Alcohol and Drug Abuse Patient Records regulations: The Federal rules restrict any use of the information to criminally investigate or prosecute any alcohol or drug abuse patient.[facility]In the event this information is protected by the Federal Confidentiality of Alcohol and Drug Abuse Patient Records regulations: The Federal rules restrict any use of the information to criminally investigate or prosecute any alcohol or drug abuse patient.[facility]In the event this information is protected by the Federal Confidentiality of Alcohol and Drug Abuse Patient Records regulations: The Federal rules restrict any use of the information to criminally investigate or prosecute any alcohol or drug abuse patient.[facility]In the event this information is protected by the Federal Confidentiality of Alcohol and Drug Abuse Patient Records regulations: The Federal rules restrict any use of the information to criminally investigate or prosecute any alcohol or drug abuse patient.[facility] SystemIn the event this information is protected by the Federal Confidentiality of Alcohol and Drug Abuse Patient Records regulations: The Federal rules restrict any use of the information to criminally investigate or prosecute any alcohol or drug abuse patient.[facility] Reason for Visit (unrecogniz ed section and content) Reason Onset Date Comments Refill Request 07/02/2021 Reason Comments Insurance Authorization [place] Thyroid 6 0 mg Reason Comments Chest Congestion cough and sore throa t x 2 weeks Reason Comments New Patient Diabetic Foot Care Reason Comments Orders refill request Reason Comments Results Reason Comments Medication Question Reason Comments Refill Request Reason Onset Date Comments Refill Request 10/03/2021 Reason Onset Date Comments Refill Request 09/30/2021 Refill Request 10/03/2021 Reason Comments Lab Orders upcoming appt 10/07 Reason Comments Follow Up Ulcer Reason Comments Physical Reason Onset Date Comments Refill Request 10/31/2021 Reason Onset Date Comments Refill Request 11/21/2021 Reason Onset Date Comments Refill Request 11/26/2021 Reason Onset Date Comments Refill Request 11/29/2021 Reason Onset Date Comments Refill Request 12/17/2021 Reason Onset Date Comments Refill Request 12/30/2021 Reason Comments Established Patient Follow Up Reason Comments Patient Update Reason Comments Established Patient Follow Up Pain Post Op Reason Comments Established Patient Post Op Pain Reason Comments Post Op Hammer Toe Reason Onset Date Comments Refill Request 01/30/2022 Reason Onset Date Comments Refill Request 01/31/2022 Reason Onset Date Comments Refill Request 02/04/2022 Reason Comments Established Patient Follow Up Post Op Reason Onset Date Comments Refill Request 03/26/2022 Reason Onset Date Comments Refill Request 04/28/2022 Reason Onset Date Comments Refill Request 05/06/2022 Reason Onset Date Comments Refill Request 05/23/2022 Reason Comments Physical Fall Reason Onset Date Comments Refill Request 05/30/2022 Reason Comments Diabetes Blood sugar: 165A1c: 6.5 Blurred Vision Both Eyes Difficulty Reading Both Eyes Red Eye Both Eyes Eye Itching Both Eyes Eye Burning Both Eyes Dry Eye(s) Both Eyes Specialty Diagnoses / Procedures Referred By Rachael yanez Referred To Contact Ophthalmology Diagnoses Screening for diabetic retinopathy Procedures CONSULT TO OPHTHALMOLOGY OFFICE/OUTPATIENT NEW HIGH MDM 60-74 MINUTES Santhosh Holden MD [address] [place] [address] Referral ID Status Reason Start Date Expiration Date V isits Requested Visits Authorized [id number] Closed PCP Requested Referral 05/29/2022 05/29/2023 1 1 Reason Comments Opened In Error Specialty Diagnoses / Procedures Referred By Contrandall t Referred To Contact PHYSICAL THERAPY Diagnoses Neuropathy Ataxia Fall, subsequent encounter Procedures CONSULT TO PHYSICAL THERAPY PHYSICAL THERAPY EVALUATION HIGH COMPLEX 45 MINS Santhosh Holden MD [address] [place] [address] Nikkie Meyer, PT [address] [place] [address] Referral ID Status Reason Start Date Expiration Date Visits Requested Visits Authorized [id number] Pending Review Auto-Generat ed Referral 05/29/2022 05/29/2023 1 1 Reason Onset Date Comments Refill Request 06/23/2022 Reason Onset Date Comments Refill Request 07/17/2022 Reason Onset Date Comments Refill Request 07/29/2022 Reason Onset Date Comments Refill Request 08/04/2022 Reason Onset Date Comments Refill Request 08/27/2022 Reason Onset Date Comments Refill Request 09/16/2022 Reason Onset Date Comments Refill Request 09/18/2022 Reason Onset Date Comments Refill Request 09/25/2022 Reason Comments Insurance Authorization [employer] thyroid Reason Comments Established Patient Follow Up Pain Reason Onset Date Comments Refill Request 10/27/2022 Reason Comments right foot, leg, wrist and shoulder pain Fell twice today Reason Onset Date Comments Refill Request 11/04/2022 Reason Comments 3 month f/u Reason Onset Date Comments Refill Request 11/18/2022 Reason Comments Medication Problem Reason Comments Established Patient Fracture Pain Reason Onset Date Comments Refill Request 11/25/2022 Reason Comments Dry Eye Syndrome Follow Up Reason Comments Orders Reason Comments 6 Month Exam Reason Comments Consult Barretts esophagus Specialty Diagnoses / Procedures Referred By Rachael yanez Referred To Contact General Surgery Diagnoses 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 Nitro helps. Reason Onset Date Comments Refill Request 02/18/2023 Reason Comments Follow Up EKG 02/07/23 Reason Onset Date Comments Refill Request 05/19/2023 Reason Onset Date Comments requesting medication on list 05/22/2023 Appointment Reason Onset Date Comments Refill Request 05/22/2023 Reason Onset Date Comments Refill Request 05/25/2023 Reason Comments Diabetic Eye Exam Type 2 NIDDM Reason Comments Sinus Problem Cough, chest congest ion x 1 week Reason Comments Sleep Apnea Reason Comments Tremor Headaches Memory Loss Reason Onset Date Comments Refill Request 08/04/2023 Reason Onset Date Comments Refill Request 08/05/2023 Reason Onset Date Comments Refill Request 08/17/2023 Reason Onset Date Comments Refill Request 08/24/2023 Reason Onset Date Comments Refill Request 10/16/2023 Reason Comments 6 Month Exam Reason Onset Date Comments Refill Request 11/10/2023 Reason Onset Date Comments Refill Request 11/16/2023 Reason Onset Date Comments Refill Request 11/20/2023 Reason Onset Date Comments Refill Request 12/01/2023 Reason Onset Date Comments Refill Request 12/18/2023 Specialty Diagnoses / Procedures Referred By Contac t Referred To Contact Ent - Otolaryngology Diagnoses Bilateral hearing loss, unspecified hearing loss type Procedures CONSULT TO ENT OFFICE/OUTPATIENT [facility] 60 MINUTES Santhosh Holden MD [address] [place] [id number] Referral ID Status Reason Start Date Expiration Date V isits Requested Visits Authorized [id number] Closed PCP Requested Referral 09/21/2023 09/20/2024 1 1 Reason Comments had audio Hearing Loss Bilateral hearing lo ss. Specialty Diagnoses / Procedures Referred By Rachael t Referred To Contact Ent - Otolaryngology Diagnoses Bilateral hearing loss, unspecified hearing loss type Procedures CONSULT TO ENT OFFICE/OUTPATIENT [facility] 60 MINUTES Santhosh Holden MD [address] [place] [id number] Reason Onset Date Comments Refill Request 01/05/2024 Reason Onset Date Comments Refill Request 01/19/2024 Reason Onset Date Comments Refill Request 01/29/2024 Reason Comments 6 month follow up Reason Onset Date Comments Refill Request 02/17/2024 Reason Comments Established Patient Infection Pain Reason Onset Date Comments Refill Request 04/25/2024 Reason Comments Established Patient Follow Up Reason Onset Date Comments Refill Request 05/05/2024 Reason Comments Patient Update Reason Onset Date Comments Refill Request 05/13/2024 Reason Comments Established Patient Follow Up Pain Fracture New Diabetic Foot Ulcer Reason Onset Date Comments Refill Request 05/17/2024 Reason Comments Results Reason Comments Radiology US Specialty Diagnoses / Procedures Referred By Contac t Referred To Contact US IMAGING Diagnoses Renal insufficiency Procedures US KIDNEY/BLADDER US RETROPERITONEAL REAL TIME W/IMAGE COMPLETE Santhosh Holden MD [address] [place] [address] Phone: tel: fax: [place] [phone] Referral ID Status Reason Start Date Expiration Date V isits Requested Visits Authorized [id number] Closed Auto-Generate d Referral 05/23/2024 06/22/2025 1 1 Reason Comments Established Patient Follow Up Pain Fracture Diabetic Foot Ulcer Reason Onset Date Comments Refill Request 06/07/2024 Reason Onset Date Comments Refill Request 06/20/2024 Reason Comments 6 month follow up Reason Onset Date Comments Refill Request 07/22/2024 Reason Onset Date Comments Refill Request 07/27/2024 Care Teams (unrecognized sec tion and content) Employment Coach Relationship Specialty Start Date End Date Santhosh Holden MD [address] [place] [address] PCP - General Family Practice 11/17/14 Nabor Nicole MD [address] [place] [address] Consulting General Surgery 01/25/21 Employment Coach Relationship Specialty Start Date End Date Santhosh Holden MD [address] [place] [address] PCP - General Family Practice 11/17/14 Nabor Nicole MD [address] [place] [address] Consulting General Surgery 01/25/21 Employment Coach Relationship Specialty Start Date End Date Santhosh Holden MD [address] [place] [address] PCP - General Family Practice 11/17/14 Nabor Nicole MD [address] [place] [address] Consulting General Surgery 01/25/21 Employment Coach Relationship Specialty Start Date End Date Santhosh Holden MD [address] [place] [address] PCP - General Family Practice 11/17/14 Nabor Nicole MD [address] [place] [address] Consulting General Surgery 01/25/21 Employment Coach Relationship Specialty Start Date End Date Santhosh Holden MD [address] [place] [address] PCP - General Family Practice 11/17/14 Nabor Nicole MD [address] [place] [address] Consulting General Surgery 01/25/21 Employment Coach Relationship Specialty Start Date End Date Santhosh Holden MD [address] [place] [address] PCP - General Family Practice 11/17/14 Nabor Nicole MD [address] [place] [address] Consulting General Surgery 01/25/21 Employment Coach Relationship Specialty Start Date End Date Santhosh Holden MD [address] [place] [address] PCP - General Family Practice 11/17/14 Nabor Nicole MD [address] [place] [address] Consulting General Surgery 01/25/21 Employment Coach Relationship Specialty Start Date End Date Santhosh Holden MD [address] [place] [address] PCP - General Family Practice 11/17/14 Nabor Nicole MD Consulting General Surgery 01/25/21 Employment Coach Relationship Specialty Start Date End Date Nory Villeda, DO [address] [place] [address] Physician Electrophysiology 12/27/19 Shruthi Montenegro, DMD [address] [place] [address] Physician Oral & Maxillofacial Surgery 12/27/19 Employment Coach Relationship Specialty Start Date End Date Santhosh Holden MD [address] [facility] [place] [address] PCP - General Family Practice 11/17/14 Nabor Nicole MD Consulting General Surgery 01/25/21 Employment Coach Relationship Specialty Start Date End Date Santhosh Holden MD [address] [facility] [place] [address] PCP - General Family Practice 11/17/14 Nabor Nicole MD Consulting General Surgery 01/25/21 Employment Coach Relationship Specialty Start Date End Date Santhosh Holden MD [address] [facility] [place] [address] PCP - General Family Practice 11/17/14 Nabor Nicole MD Consulting General Surgery 01/25/21 Employment Coach Relationship Specialty Start Date End Date Santhosh Holden MD [address] [facility] [place] [address] PCP - General Family Practice 11/17/14 Nabor Nicole MD Consulting General Surgery 01/25/21 Employment Coach Relationship Specialty Start Date End Date Santhosh Holden MD [address] [facility] [place] [address] PCP - General Family Practice 11/17/14 Nabor Nicole MD Consulting General Surgery 01/25/21 Employment Coach Relationship Specialty Start Date End Date Santhosh Holden MD [address] [facility] [place] [address] PCP - General Family Practice 11/17/14 Nabor Nicole MD Consulting General Surgery 01/25/21 Employment Coach Relationship Specialty Start Date End Date Santhosh Holden MD [address] [facility] [place] [address] PCP - General Family Practice 11/17/14 Nabor Nicole MD Consulting General Surgery 01/25/21 Employment Coach Relationship Specialty Start Date End Date Santhosh Holden MD [address] [facility] [place] [address] PCP - General Family Medicine 11/17/14 Nabor Nicole MD Consulting General Surgery 01/25/21 Employment Coach Relationship Specialty Start Date End Date Santhosh Holden MD [address] [facility] [place] [address] PCP - General Family Medicine 11/17/14 Nabor Nicole MD Consulting General Surgery 01/25/21 Employment Coach Relationship Specialty Start Date End Date Santhosh Holden MD [address] [facility] [place] [address] PCP - General Family Medicine 11/17/14 Nabor Nicole MD Consulting General Surgery 01/25/21 Employment Coach Relationship Specialty Start Date End Date Santhosh Holden MD [address] [facility] [place] [address] PCP - General Family Medicine 11/17/14 Nabor Nicole MD Consulting General Surgery 01/25/21 Employment Coach Relationship Specialty Start Date End Date Santhosh Holden MD [address] [facility] [place] [address] PCP - General Family Medicine 11/17/14 Nabor Nicole MD Consulting General Surgery 01/25/21 Employment Coach Relationship Specialty Start Date End Date Santhosh Holden MD [address] [facility] [place] [address] PCP - General Family Medicine 11/17/14 Nabor Nicole MD Consulting General Surgery 01/25/21 Employment Coach Relationship Specialty Start Date End Date Santhosh Holden MD [address] [facility] [place] [address] PCP - General Family Medicine 11/17/14 Nabor Nicole MD Consulting General Surgery 01/25/21 Employment Coach Relationship Specialty Start Date End Date Santhosh Holedn MD [address] [facility] [place] [address] PCP - General Family Medicine 11/17/14 Nabor Nicole MD Consulting General Surgery 01/25/21 Employment Coach Relationship Specialty Start Date End Date Santhosh Holden MD [address] [facility] [place] [address] PCP - General Family Medicine 11/17/14 Nabor Nicole MD Consulting General Surgery 01/25/21 Employment Coach Relationship Specialty Start Date End Date Santhosh Holden MD [address] [facility] [place] [address] PCP - General Family Medicine 11/17/14 Nabor Nicole MD [address] [place] [address] Consulting General Surgery 01/25/21 Employment Coach Relationship Specialty Start Date End Date Nory Villeda, DO [address] [place] [address] Physician Electrophysiology 12/27/19 Shruthi Montenegro, DMD [address] [place] [address] Physician Oral & Maxillofacial Surgery 12/27/19 Employment Coach Relationship Specialty Start Date End Date Santhosh Holden MD [facility] [place] [address] PCP - General Family Medicine 11/17/14 Nabor Nicole MD [address] [place] [address] Consulting General Surgery 01/25/21 Employment Coach Relationship Specialty Start Date End Date Santhosh Holden MD [address] [place] [address] PCP - General Family Medicine 11/17/14 Nabor Nicole MD [address] [place] [address] Consulting General Surgery 01/25/21 Employment Coach Relationship Specialty Start Date End Date Santhosh Holden MD [address] [place] [address] PCP - General Family Medicine 11/17/14 Nabor Nicole MD [facility] [place] [address] Consulting General Surgery 01/25/21 Employment Coach Relationship Specialty Start Date End Date Santhosh Holden MD [address] [place] [address] PCP - General Family Medicine 11/17/14 Nabor Nicole MD [address] [facility] [place] [address] Consulting General Surgery 01/25/21 Employment Coach Relationship Specialty Start Date End Date Santhosh Holden MD [address] [facility] [place] [address] PCP - General Family Medicine 11/17/14 Nabor Nicole MD [address] [facility] [place] [address] Consulting General Surgery 01/25/21 Employment Coach Relationship Specialty Start Date End Date Santhosh Holden MD [address] [facility] [place] [address] PCP - General Family Medicine 11/17/14 Nabor Nicole MD [address] [facility] [place] [address] Consulting General Surgery 01/25/21 Employment Coach Relationship Specialty Start Date End Date Santhosh Holden MD [address] [facility] [place] [address] PCP - General Family Medicine 11/17/14 Nabor Nicole MD [address] [facility] [place] [address] Consulting General Surgery 01/25/21 Employment Coach Relationship Specialty Start Date End Date Santhosh Holden MD [address] [facility] [place] [address] PCP - General Family Medicine 11/17/14 Nabor Nicole MD [address] [facility] [place] [address] Consulting General Surgery 01/25/21 Employment Coach Relationship Specialty Start Date End Date Nory Villeda DO [address] [facility] [place] [address] Physician Electrophysiology 12/27/19 Shruthi Montenegro, DMD [address] [facility] [place] [address] Physician Oral & Maxillofacial Surgery 12/27/19 Employment Coach Relationship Specialty Start Date End Date Santhosh Holden MD [facility] [place] [address] PCP - General Family Medicine 11/17/14 Nabor Nicole MD [address] [place] [address] Consulting General Surgery 01/25/21 Employment Coach Relationship Specialty Start Date End Date Santhosh Holden MD [address] [place] [address] PCP - General Family Medicine 11/17/14 Nabor Nicole MD [address] [place] [address] Consulting General Surgery 01/25/21 Employment Coach Relationship Specialty Start Date End Date Santhosh Holden MD [address] [place] [address] PCP - General Family Medicine 11/17/14 Nabor Nicole MD [address] [place] [address] Consulting General Surgery 01/25/21 Employment Coach Relationship Specialty Start Date End Date Santhosh Holden MD [address] [place] [address] PCP - General Family Medicine 11/17/14 Nabor Nicole MD [address] [place] [address] Consulting General Surgery 01/25/21 Employment Coach Relationship Specialty Start Date End Date Santhosh Holden MD [address] [place], [place] [address] PCP - General Family Medicine 11/17/14 Nabor Nicole MD [address] [place] [address] Consulting General Surgery 01/25/21 Johanna Lincoln Md [address] [place] [address] Psychiatry 08/06/22 Employment Coach Relationship Specialty Start Date End Date Santhosh Holden MD [address] [place] [address] PCP - General Family Medicine 11/17/14 Nabor Nicole MD [address] [place] [address] Consulting General Surgery 01/25/21 Johanna Lincoln Md [address] [place], [place] [address] Psychiatry 08/06/22 Employment Coach Relationship Specialty Start Date End Date ToddSa haydeeimaDO [address] [facility] [address] [facility] [address] [place] [address] Physician Electrophysiology 12/27/19 Shruthi Montenegro DMD [address] [facility] [place] [address] Physician Oral & Maxillofacial Surgery 12/27/19 Employment Coach Relationship Specialty Start Date End Date Santhosh Holden MD [address] [place], [place] [address] PCP - General Family Medicine 11/17/14 Nabor Nicole MD [address] [place] [address] Consulting General Surgery 01/25/21 Johanna Lincoln Md [address] [place] [address] Psychiatry 08/06/22 Employment Coach Relationship Specialty Start Date End Date Santhosh Holden MD [address] [facility] [place] [address] PCP - General Family Medicine 11/17/14 Nabor Nicole MD [address] [facility] [place] [address] Consulting General Surgery 01/25/21 Johanna Lincoln Md [address] [place] [address] Psychiatry 08/06/22 Employment Coach Relationship Specialty Start Date End Date Santhosh Holden MD [address] [facility] [place] [address] PCP - General Family Medicine 11/17/14 Nabor Nicole MD [address] [facility] [place] [address] Consulting General Surgery 01/25/21 Johanna Lincoln Md [address] [place] [address] Psychiatry 08/06/22 Employment Coach Relationship Specialty Start Date End Date Santhosh Holden MD [address] [facility] [place] [address] PCP - General Family Medicine 11/17/14 Nabor Nicole MD [address] [facility] [place] [address] Consulting General Surgery 01/25/21 Johanna Lincoln Md [address] [place], [place] [address] Psychiatry 08/06/22 Employment Coach Relationship Specialty Start Date End Date Santhosh Holden MD [address] [facility] [place] [address] PCP - General Family Medicine 11/17/14 Nabor Nicole MD [address] [facility] [place] [address] Consulting General Surgery 01/25/21 Johanna Lincoln Md [address] [place] [address] Psychiatry 08/06/22 Employment Coach Relationship Specialty Start Date End Date Santhosh Holden MD [address] [facility] [place] [address] PCP - General Family Medicine 11/17/14 Nabor Nicole MD [address] [facility] [place] [address] Consulting General Surgery 01/25/21 Johanna Lincoln Md [address] [place] [address] Psychiatry 08/06/22 Employment Coach Relationship Specialty Start Date End Date Santhosh Holden MD [address] [facility] [place] [address] PCP - General Family Medicine 11/17/14 Nabor Nicole MD [address] [facility] [place] [address] Consulting General Surgery 01/25/21 Johanna Lincoln Md [address] [place] [address] Psychiatry 08/06/22 Employment Coach Relationship Specialty Start Date End Date Santhosh Holden MD [address] [place] [address] PCP - General Family Medicine 11/17/14 Nabor Nicole MD [address] [place] [address] Consulting General Surgery 01/25/21 Johanna Lincoln Md [address] [place], [place] [address] Psychiatry 08/06/22 Employment Coach Relationship Specialty Start Date End Date Santhosh Holden MD [address] [place] [address] PCP - General Family Medicine 11/17/14 Nabor Nicole MD [address] [place] [address] Consulting General Surgery 01/25/21 Johanna Lincoln Md [address] [place] [address] Psychiatry 08/06/22 Team Status: Active Member Role Status Dates Dr. Santhosh Holden MD Family Provider Active Dr. Santhosh Holden MD Primary Care Provider Active Team Status: Inactive Member Role Status Dates Dr. Santhosh Holden MD Primary Care Provider Active Dr. Corey Arrington MD Emergency Provider Active Employment Coach Relationship Specialty Start Date End Date Santhosh Holden MD [address] [place], [place] [address] PCP - General Family Medicine 11/17/14 Nabor Nicole MD [address] [facility] [place] [address] Consulting General Surgery 01/25/21 Johanna Lincoln Md [address] [place] [address] Psychiatry 08/06/22 Employment Coach Relationship Specialty Start Date End Date Santhosh Holden MD [address] [place] [address] PCP - General Family Medicine 11/17/14 Nabor Nicole MD [address] [place] [address] Consulting General Surgery 01/25/21 Johanna Lincoln Md [address] [place] [address] [facility] [place] [address] Psychiatry 08/06/22 Employment Coach Relationship Specialty Start Date End Date Santhosh Holden MD [address] [place] [address] PCP - General Family Medicine 11/17/14 Nabor Nicole MD [address] [place] [address] Consulting General Surgery 01/25/21 Johanna Lincoln Md [address] [place] [address] Psychiatry 08/06/22 Employment Coach Relationship Specialty Start Date End Date Santhosh Holden MD [address] [place] [address] PCP - General Family Medicine 11/17/14 Nabor Nicole MD [address] [place] [address] Consulting General Surgery 01/25/21 Johanna Lincoln Md [address] [place] [address] Psychiatry 08/06/22 Employment Coach Relationship Specialty Start Date End Date Santhosh Holden MD [address] [facility] [place] [address] PCP - General Family Medicine 11/17/14 Nabor Nicole MD [address] [place] [address] Consulting General Surgery 01/25/21 Johanna Lincoln Md [address] [place] [address] Psychiatry 08/06/22 Employment Coach Relationship Specialty Start Date End Date Santhosh Holden MD [address] [facility] [place] [address] PCP - General Family Medicine 11/17/14 Nabor Nicole MD [address] [facility] [place] [address] Consulting General Surgery 01/25/21 Johanna Lincoln Md [address] [place] [address] Psychiatry 08/06/22 Employment Coach Relationship Specialty Start Date End Date Santhosh Holden MD [address] [facility] [place] [address] PCP - General Family Medicine 11/17/14 Nabor Nicole MD [address] [place] [address] Consulting General Surgery 01/25/21 Johanna Lincoln Md [address] [place] [address] Psychiatry 08/06/22 Employment Coach Relationship Specialty Start Date End Date Santhosh Holden MD [address] [place] [address] PCP - General Family Medicine 11/17/14 Nabor Nicole MD [address] [place] [address] Consulting General Surgery 01/25/21 Johanna Lincoln Md [address] [place] [address] Psychiatry 08/06/22 Employment Coach Relationship Specialty Start Date End Date Santhosh Holden MD [address] [facility] [place] [address] PCP - General Family Medicine 11/17/14 Nabor Nicole MD [address] [facility] [place] [address] Consulting General Surgery 01/25/21 Employment Coach Relationship Specialty Start Date End Date Santhosh Holden MD [address] [place] [address] PCP - General Family Medicine 11/17/14 Nabor Nicole MD [address] [facility] [place] [address] Consulting General Surgery 01/25/21 Employment Coach Relationship Specialty Start Date End Date Santhosh Holden MD [address] [place] [address] PCP - General Family Medicine 11/17/14 Nabor Nicole MD [address] [facility] [place] [address] [phone] Consulting General Surgery 01/25/21 Johanna Lincoln Md [address] [place] [address] Psychiatry 08/06/22 Employment Coach Relationship Specialty Start Date End Date Santhosh Holden MD [address] [facility] [place] [address] PCP - General Family Medicine 11/17/14 Nabor Nicole MD [address] [facility] [place] [address] Consulting General Surgery 01/25/21 Johanna Lincoln Md [address] [place] [address] Psychiatry 08/06/22 Employment Coach Relationship Specialty Start Date End Date Santhosh Holden MD [address] [facility] [place] [address] PCP - General Family Medicine 11/17/14 Nabor [address] [place] [address] Consulting General Surgery 01/25/21 Johanna Lincoln Md [address] [place] [address] Psychiatry 08/06/22 Employment Coach Relationship Specialty Start Date End Date Santhosh Holden MD [address] [facility] [place] [address] PCP - General Family Medicine 11/17/14 Nabor Nicole MD [address] [facility] [place] [address] Consulting General Surgery 01/25/21 Johanna Lincoln Md [address] [place] [address] Psychiatry 08/06/22 Employment Coach Relationship Specialty Start Date End Date Santhosh Holden MD [address] [facility] [place] [address] PCP - General Family Medicine 11/17/14 Nabor Nicole MD [address] [facility] [place] [address] Consulting General Surgery 01/25/21 Johanna Lincoln Md [address] [place] [address] Psychiatry 08/06/22 Employment Coach Relationship Specialty Start Date End Date Santhosh Holden MD [address] [facility] [place] [address] PCP - General Family Medicine 11/17/14 Nabor Nicole MD [address] [facility] [place] [address] Consulting General Surgery 01/25/21 Johanna Lincoln Md [address] [place] [address] Psychiatry 08/06/22 Employment Coach Relationship Specialty Start Date End Date Santhosh Holden MD [address] [facility] [place] [address] PCP - General Family Medicine 11/17/14 Nabor Nicole MD [address] [facility] [place] [address] Consulting General Surgery 01/25/21 Johanna Lincoln Md [address] [place] [address] Psychiatry 08/06/22 Employment Coach Relationship Specialty Start Date End Date Santhosh Holden MD [address] [facility] [place] [address] PCP - General Family Medicine 11/17/14 Nabor Nicole MD [address] [facility] [place] [address] Consulting General Surgery 01/25/21 Johanna Lincoln Md [address] [place] [address] Psychiatry 08/06/22 Employment Coach Relationship Specialty Start Date End Date Santhosh Holden MD [address] [facility] [place] [address] PCP - General Family Medicine 11/17/14 Nabor Nicole MD [address] [facility] [place] [address] Consulting General Surgery 01/25/21 Johanna Lincoln Md [address] [place] [address] Psychiatry 08/06/22 Employment Coach Relationship Specialty Start Date End Date Santhosh Holden MD [address] [facility] [place] [address] PCP - General Family Medicine 11/17/14 Nabor Nicole MD [address] [facility] [place] [address] Consulting General Surgery 01/25/21 Johanna Lincoln Md [address] [place] [address] Psychiatry 08/06/22 Employment Coach Relationship Specialty Start Date End Date Santhosh Holden MD [address] [facility] [place] [address] PCP - General Family Medicine 11/17/14 Nabor Nicole MD [address] [facility] [address] Consulting General Surgery 01/25/21 Johanna Lincoln Md [address] [place] [address] Psychiatry 08/06/22 Employment Coach Relationship Specialty Start Date End Date Santhosh Holden MD [address] [facility] [place] [address] PCP - General Family Medicine 11/17/14 Nabor Nicole MD [address] [facility] [address] Consulting General Surgery 01/25/21 Johanna Lincoln Md [address] [place] [address] Psychiatry 08/06/22 Employment Coach Relationship Specialty Start Date End Date Santhosh Holden MD [address] [place], [place] [address] PCP - General Family Medicine 11/17/14 Nabor Nicole MD [address] [place], [place] [address] Consulting General Surgery 01/25/21 Johanna Lincoln Md [address] [place], [place] [address] Psychiatry 08/06/22 Employment Coach Relationship Specialty Start Date End Date Santhosh Holden MD [address] [place] [address] PCP - General Family Medicine 11/17/14 Nabor Nicole MD [address] [place] [address] Consulting General Surgery 01/25/21 Johanna Lincoln Md [address] [place] [address] Psychiatry 08/06/22 Employment Coach Relationship Specialty Start Date End Date Nory Villeda DO [address] [place] [address] Physician Electrophysiology 12/27/19 Shruthi Montenegro DMD [address] [place] [address] Physician Oral & Maxillofacial Surgery 12/27/19 Employment Coach Relationship Specialty Start Date End Date Santhosh Holden MD [address] [facility] [place] [address] PCP - General Family Medicine 11/17/14 Nabor Nicole MD [address] [facility] [place] [address] Consulting General Surgery 01/25/21 Johanna Lincoln Md [address] [place] [address] Psychiatry 08/06/22 Employment Coach Relationship Specialty Start Date End Date Santhosh Holden MD [address] [place] [address] PCP - General Family Medicine 11/17/14 Nabor Nicole MD [address] [place] [address] Consulting General Surgery 01/25/21 Johanna Lincoln Md [address] [place] [address] Psychiatry 08/06/22 Employment Coach Relationship Specialty Start Date End Date Santhosh Holden MD [address] [place] [address] PCP - General Family Medicine 11/17/14 Nabor Nicole MD [address] [place] [address] Consulting General Surgery 01/25/21 Johanna Lincoln Md [address] [place] [address] Psychiatry 08/06/22 Employment Coach Relationship Specialty Start Date End Date Santhosh Holden MD [address] [place] [address] PCP - General Family Medicine 11/17/14 Nabor Nicole MD [address] [facility] [place] [address] Consulting General Surgery 01/25/21 Johanna Lincoln Md [address] [place] [address] Psychiatry 08/06/22 Employment Coach Relationship Specialty Start Date End Date Santhosh Holden MD [address] [facility] [place] [address] PCP - General Family Medicine 11/17/14 Nabor Nicole MD [address] [place] [address] Consulting General Surgery 01/25/21 Johanna Lincoln Md [address] [place] [address] Psychiatry 08/06/22 Employment Coach Relationship Specialty Start Date End Date Santhosh Holden MD [address] [place] [address] PCP - General Family Medicine 11/17/14 Nabor Nicole MD [address] [facility] [place] [address] Consulting General Surgery 01/25/21 Johanna Lincoln Md [address] [place] [address] Psychiatry 08/06/22 Employment Coach Relationship Specialty Start Date End Date Santhosh Holden MD [address] [place] [address] PCP - General Family Medicine 11/17/14 Nabor Nicole MD [address] [place] [address] Consulting General Surgery 01/25/21 Johanna Lincoln Md [address] [place] [address] Psychiatry 08/06/22 Employment Coach Relationship Specialty Start Date End Date Santhosh Holden MD [address] [place] [address] PCP - General Family Medicine 11/17/14 [address] [place] [address] Consulting General Surgery 01/25/21 Employment Coach Relationship Specialty Start Date End Date Santhosh Holden MD [address] [place] [address] PCP - General Family Medicine 11/17/14 Nabor Nicole MD [address] [facility] [place] [address] Consulting General Surgery 01/25/21 Employment Coach Relationship Specialty Start Date End Date Santhosh Holden MD [address] [place], [place] [address] PCP - General Family Medicine 11/17/14 Nabor Nicole MD [address] [facility] [place] [address] Consulting General Surgery 01/25/21 Johanna Lincoln Md [address] [place], [place] [address] Psychiatry 08/06/22 Employment Coach Relationship Specialty Start Date End Date Santhosh Holden MD [address] [facility], [place] [address] PCP - General Family Medicine 11/17/14 Employment Coach Relationship Specialty Start Date End Date Santhosh Holden MD [address] [facility], [place] [address]341 PCP - General Family Medicine 11/17/14 Nabor Nicole MD [address] [facility] [place] [address] Consulting General Surgery 01/25/21 Johanna Lincoln Md [address] [place] [address] Psychiatry 08/06/22 Employment Coach Relationship Specialty Start Date End Date Santhosh Holden MD [address] [facility] [place] [address] PCP - General Family Medicine 11/17/14 Nabor Nicole MD [address] [facility] [address] Consulting General Surgery 01/25/21 Johanna Lincoln Md [address] [place], [place] [address] Psychiatry 08/06/22 Employment Coach Relationship Specialty Start Date End Date Santhosh Holden MD [address] [facility] [place] [address] PCP - General Family Medicine 11/17/14 Nabor Nicole MD [address] [place] [address] Consulting General Surgery 01/25/21 Johanna Lincoln Md [address] [place] [address] Psychiatry 08/06/22 Employment Coach Relationship Specialty Start Date End Date Santhosh Holden MD [address] [facility] [place] [address] PCP - General Family Medicine 11/17/14 Nabor Nicole MD [address] [facility] [place] [address] Consulting General Surgery 01/25/21 Johanna Lincoln Md [address] [facility] [place] [address] Psychiatry 08/06/22 Saumya Vargas APRN.[employer] [address] [facility] [address] Respiratory Scientist Family Medicine 02/29/24 Nanette Carroll APRN.[employer] [address] [facility] [place] [address] Respiratory Scientist Family Medicine 02/29/24 Employment Coach Relationship Specialty Start Date End Date Santhosh Holden MD [address] [place] [address] PCP - General Family Medicine 11/17/[address] [place] [address] Consulting General Surgery 01/25/21 Johanna Lincoln Md [address] [place] [address] Psychiatry 08/06/22 Saumya Vargas APRN.[employer] [address] [facility] [place] [address] Respiratory Scientist Family Medicine 02/29/24 Nanette Carroll APRN.[employer] [address] [facility] [address] Respiratory Scientist Family Medicine 02/29/24 Employment Coach Relationship Specialty Start Date End Date Santhosh Holden MD [address] [place] [address] PCP - General Family Medicine 11/17/14 Nabor [address] MD [address] [facility] [address] Consulting General Surgery 01/25/21 Johanna Lincoln Md [address] [place] [address] Psychiatry 08/06/22 Saumya Vargas, VIC.[employer] [address] [facility] [place] [address] Respiratory Scientist Family Medicine 02/29/24 Nanette Carroll APRN.[employer] [address] [facility] [facility] [address] Respiratory Scientist Family Medicine 02/29/24 Employment Coach Relationship Specialty Start Date End Date Santhosh Holden MD [address] [facility] [place] [address] PCP - General Family Medicine 11/17/14 Nabor [address] MD [address] [facility] [address] Consulting General Surgery 01/25/21 Johanna Lincoln Md [address] [place] [address] Psychiatry 08/06/22 Saumya Vargas APRN.[employer] [address] [place] [address] Respiratory Scientist Family Medicine 02/29/24 Nanette Carroll APRN.[employer] [address] [place] [address] Respiratory Scientist Family Medicine 02/29/24 Employment Coach Relationship Specialty Start Date End Date Santhosh Holden MD [address] [place] [address] PCP - General Family Medicine 11/17/14 Nabor Nicole MD [address] [place] [address] Consulting General Surgery 01/25/21 Johanna Lincoln Md [address] [place] [address] Psychiatry 08/06/22 Saumya Vargas APRN.[employer] [address] [place] [address] Respiratory Scientist Family Medicine 02/29/24 Nanette Carroll APRN.[employer] [address] [facility] [place] [address] Respiratory Scientist Family [facility] 02/29/24 Employment Coach Relationship Specialty Start Date End Date Santhosh Holden MD [address] [place] [address] PCP - General Family Medicine 11/17/14 Nabor Nicole MD [address] [facility] [place] [address] Consulting General Surgery 01/25/21 Johanna Lincoln Md [address] [place] [address] Psychiatry 08/06/22 Saumya Vargas COAL SCREENER.[employer] [address] [facility] [address] Respiratory Scientist Family Medicine 02/29/24 Nanette Carroll COAL SCREENER.[employer] [address] [facility] [place] [address] Respiratory Scientist Family Medicine 02/29/24 Employment Coach Relationship Specialty Start Date End Date Santhosh Holden MD [address] [facility] [place] [address] PCP - General Family Medicine 11/17/14 Nabor Nicole MD [address] [facility] [place] [address] Consulting General Surgery 01/25/21 Johanna Lincoln Md [address] [facility] [place] [address] Psychiatry 08/06/22 Saumya Vargas, VIC.[employer] [address] [place] [address] Respiratory Scientist Family Medicine 02/29/24 Nanette Carroll APRN.[employer] [address] [place] [address] Respiratory Scientist Family Medicine 02/29/24 Employment Coach Relationship Specialty Start Date End Date Santhosh Holden MD [address] [facility] [place] [address] PCP - General Family Medicine 11/17/14 Nabor Nicole MD [address] [facility] [place] [address] Consulting General Surgery 01/25/21 Johanna Lincoln Md [address] [place] [address] Psychiatry 08/06/22 Saumya Vargas, VIC.[employer] [address] [facility] [address] Respiratory Scientist Family Medicine 02/29/24 Nanette Carroll COAL SCREENER.[employer] [address] [place] [address] Respiratory Scientist Family Medicine 02/29/24 Employment Coach Relationship Specialty Start Date End Date Santhosh Holden MD [address] [place] [address] PCP - General Family Medicine 11/17/14 Nabor [address] MD [address] [place] [address] Consulting General Surgery 01/25/21 Johanna Lincoln Md [address] [place] [address] Psychiatry 08/06/22 Saumya Vargas APRN.[employer] [address] [facility] [place] [address] Respiratory Scientist Family Medicine 02/29/24 Nanette Carroll APRN.[employer] [address] [facility] [place] [address] Respiratory Scientist Family Medicine 02/29/24 Employment Coach Relationship Specialty Start Date End Date Santhosh Holden MD [address] [facility] [place] [address] PCP - General Family Medicine 11/17/14 Nabor Nicole MD [address] [facility] [place] [address] Consulting General Surgery 01/25/21 Johanna Lincoln Md [address] [place] [address] Psychiatry 08/06/22 Saumya Vargas APRN.[employer] [address] [facility] [place] [address] Respiratory Scientist Family Medicine 02/29/24 Nanette Carroll APRN.[employer] [address] [facility] [place] [address] Respiratory Scientist Family Medicine 02/29/24 Employment Coach Relationship Specialty Start Date End Date Santhosh Holden MD [address] [place] [address] PCP - General Family Medicine 11/17/14 Nabor Nicole MD [address] [place] [address] Consulting General Surgery 01/25/21 Johanna Lincoln Md [address] [place] [address] Psychiatry 08/06/22 Saumya Vargas APRN.[employer] [address] [place] [address] Respiratory Scientist Family Medicine 02/29/24 Nanette Carroll APRN.[employer] [address] [place] [address] Respiratory Scientist Family Medicine 02/29/24 Employment Coach Relationship Specialty Start Date End Date Santhosh Holden MD [address] [place] [address] PCP - General Family Medicine 11/17/14 Nabor Nicole MD [address] [place] [address] Consulting General Surgery 01/25/21 Johanna Lincoln Md [address] [place] [address] Psychiatry 08/06/22 Saumya Vargas APRN.[employer] [address] [place] [address] Respiratory Scientist Family Medicine 02/29/24 Nanette Carroll APRN.[employer] [address] [facility] [place] [address] Respiratory Scientist Family [facility] 02/29/24 Employment Coach Relationship Specialty Start Date End Date Santhosh Holden MD [address] [facility] [place] [address] PCP - General Family Medicine 11/17/14 Nabor Nicole MD [address] [facility] [place] [address] Consulting General Surgery 01/25/21 Johanna Lincoln Md [address] [facility] [place] [address] Psychiatry 08/06/22 Saumya Vargas, VIC.[employer] [address] [facility] [place] [address] Respiratory Scientist Family [facility] 02/29/24 Nanette Carroll APRN.[employer] [address] [place] [address] Respiratory Scientist [facility] 02/29/24 Employment Coach Relationship Specialty Start Date End Date Santhosh Holden MD [address] [facility] [place] [address] PCP - General Family Medicine 11/17/14 Nabor Nicole MD [address] [facility] [place] [address] Consulting General Surgery 01/25/21 Johanna Lincoln Md [address] [place], [place] [address] Psychiatry 08/06/22 Saumya Vargas, COAL SCREENER.[employer] [address] [place] [address] Respiratory Scientist Family Medicine 02/29/24 Nanette Carroll COAL SCREENER.[employer] [address] [place] [address] Respiratory Scientist Family Medicine 02/29/24 Employment Coach Relationship Specialty Start Date End Date Santhosh Holden MD [address] [place] [address] PCP - General Family Medicine 11/17/14 Nabor Nicole MD [address] [place] [address] Consulting General Surgery 01/25/21 Johanna Lincoln Md [address] [place] [address] Psychiatry 08/06/22 Saumya Vargas APRN.[employer] [address] [place] [address] Respiratory Scientist Family Medicine 02/29/24 Nanette Carroll, COAL SCREENER.[employer] [address] [place] [address] Respiratory Scientist Family Medicine 02/29/24 Employment Coach Relationship Specialty Start Date End Date Santhosh Holden MD [address] [place] [address] PCP - General Family Medicine 11/17/14 Nabor Nicole MD [address] [place] [address] Consulting General Surgery 01/25/21 Johanna Lincoln Md [address] [place] [address] Psychiatry 08/06/22 Saumya Vargas APRN.[employer] [address] [facility] [place] [address] Respiratory Scientist Family Medicine 02/29/24 Nanette Carroll APRN.[employer] [address] [facility] [place] [address] Respiratory Scientist Family Medicine 02/29/24 Employment Coach Relationship Specialty Start Date End Date Santhosh Holden MD [address] [facility] [place] [address] PCP - General Family Medicine 11/17/14 Nabor Nicole MD [address] [facility] [place] [address] Consulting General Surgery 01/25/21 Johanna Lincoln Md [address] [place] [address] Psychiatry 08/06/22 Saumya Vargas APRN.[employer] [address] [facility] [place] [address] Respiratory Scientist Family Medicine 02/29/24 Nanette Carroll APRN.[employer] [address] [facility] [place] [address] Respiratory Scientist Family Medicine 02/29/24 Employment Coach Relationship Specialty Start Date End Date Santhosh Holden MD [address] [facility] [place] [address] PCP - General Family Medicine 11/17/[address] [place] [address] Consulting General Surgery 01/25/21 Johanna Lincoln Md [address] [place], [place] [address] Psychiatry 08/06/22 Saumya Vargas APRN.[employer] [address] [place] [address] Respiratory Scientist [facility] 02/29/24 Nanette Carroll APRN.[employer] [address] [place] [address] Respiratory Scientist Family [facility] 02/29/24 Employment Coach Relationship Specialty Start Date End Date Santhosh Holden MD [address] [place] [address] PCP - General Family Medicine 11/17/14 Nabor Nicole MD [address] [place] [address] Consulting General Surgery 01/25/21 Johanna Lincoln Md [address] [place] [address] Psychiatry 08/06/22 Saumya Vargas APRN.[employer] [address] [place] [address] Respiratory Scientist Family Medicine 02/29/24 Nanette Carroll APRN.[employer] [address] [place] [address] Respiratory Scientist Family Medicine 02/29/24 Employment Coach Relationship Specialty Start Date End Date Santhosh Holden MD [address] [place] [address] PCP - General Family Medicine 11/17/14 Nabor Nicole MD [address] [place] [address] Consulting General Surgery 01/25/21 [place] [address] [place], [place] [address] [place] [address] Psychiatry 08/06/22 Saumya Vargas APRN.[employer] [address] [place] [address] Respiratory Scientist Family Medicine 02/29/24 Nanette Carroll APRN.[employer] [address] [place] [address] Respiratory Scientist [facility] 02/29/24 Employment Coach Relationship Specialty Start Date End Date Santhosh Holden MD [address] [place] [address] PCP - General Family Medicine 11/17/14 Nabor Nicole MD [address] [place] [address] Consulting General Surgery 01/25/21 Johanna Lincoln Md [address] [place] [address] Psychiatry 08/06/22 Saumya Vargas APRN.[employer] [address] [place] [address] Respiratory Scientist Family Medicine 02/29/24 Nanette Carroll, COAL SCREENER.[employer] [address] [place] [address] Respiratory Scientist Family Medicine 02/29/24 Employment Coach Relationship Specialty Start Date End Date Santhosh Holden MD [address] [place] [address] PCP - General Family Medicine 11/17/14 Nabor Nicole MD [address] [address] Consulting General Surgery 01/25/21 Johanna Lincoln Md [address] [place] [address] Psychiatry 08/06/22 Saumya Vargas, COAL SCREENER.[employer] [address] [place] [address] Respiratory Scientist Family Medicine 02/29/24 Nanette Carroll, COAL SCREENER.[employer] [address] [place] [address] Respiratory Scientist Family Medicine 02/29/24 Employment Coach Relationship Specialty Start Date End Date Santhosh Holden MD [address] [address] PCP - General Family Medicine 11/17/14 Nabor Nicole MD [address] [place] [address] Consulting General Surgery 01/25/21 Johanna Lincoln Md [address] [place], [place] [address] Psychiatry 08/06/22 Saumya Vargas APRN.[employer] [address] [facility] [place] [address] Respiratory Scientist Family Medicine 02/29/24 Nanette Carroll APRN.[employer] [address] [place] [address] Respiratory Scientist Family Medicine 02/29/24 Employment Coach Relationship Specialty Start Date End Date Santhosh Holden MD [address] [place], [place] [address] PCP - General Family Medicine 11/17/14 Nabor Nicole MD [address] [place] [place] [address] Consulting General Surgery 01/25/21 Johanna Lincoln Md [address] [place] [address] Psychiatry 08/06/22 Saumya Vargas APRN.[employer] [address] [facility] [place] [address] Respiratory Scientist Family Medicine 02/29/24 Nanette Carroll [employer]AL [employer]ENER.[employer] [address] [place] [place] [address] Respiratory Scientist Family Medicine 02/29/24 Team Status: Active Member Role Status Dates Dr. Santhosh Holden MD Primary Care Provider Active Team Status: Inactive Member Role Status Dates Dr. Santhosh Holden MD Primary Care Provider Active Start: August 29, 2024 End: August 29, 2024 Dr. Sachin Walton DO Emergency Provider Activ e Start: August 29, 2024 End: August 29, 2024 Goals (unrecognized section and content) Goals may be documented in a n alternate sectionGoals may be documented in an alternate section Inactive Administered Medications - up to 3 most recent administrations Administered Medications (un recognized section and content) Medication Order MAR Action Action Date Dose Rate Site PHENYLephrine 2.5 % 1 Drop (AK-DILATE, NIRALI-SYNEPHRINE) 1 Drop, BOTH EYES, DIRECTED, Starting on Thu06/02/23 at 1430, Until Thu06/03/23 at 0229, Administer for dilation PROTECT FROM LIGHT Given 06/02/2023 2:02 PM EDT 1 Drop proparacaine 0.5 % 1 Drop (ALCAINE) 1 Drop, BOTH EYES, DIRECTED, Starting on Thu06/02/23 at 1430, Until Thu06/03/23 at 0229, Administer for pneumo tonometry, tonopen tonometry, or pachymetry. In the event of a proparacaine shortage, administer tetracaine 0.5% ophthalmic drops 1 drop in the left eye as directed for pneumo tonometry, tonopen tonometry, or pachymetry Given 06/02/2023 2:02 PM EDT 1 Drop tropicamide 1 % 1 Drop (MYDRIACYL) 1 Drop, BOTH EYES, DIRECTED, Starting on Thu06/02/23 at 1430, Until Thu06/03/23 at 0229, Administer for dilation Given 06/02/2023 2:02 PM EDT 1 Drop FOR RECORDS PERTAINING TO PATIENTS WHO ARE OR HAVE BEEN ENROLLED IN A CHEMICAL DEPENDENCY/SUBSTANCEABUSE PROGRAM, SOME INFORMATION MAY BE OMITTED. This clinical summary was aggregated from multiple sources. Caution should be exercised in using it in the provision of clinical care. This summary normalizes information from multiple sources, and as a consequence, information in this document may materially change the coding, format and clinical context of patient data. In addition, data may be omitted in some cases. CLINICAL DECISIONS SHOULD BE BASED ON THE PRIMARY CLINICAL RECORDS. [facility]. provides no warranty or guarantee of the accuracy or completeness of information in this document.
--- OUTSIDE RECORDS SUMMARY | 2024-09-09 20:01 | XMS RPT_ITS | CCD ---
Author Organization [facility] Care Team Providers Care Grades 7 And 8 Teacher Name Role Phone PROVIDER, UNKNOWN Attending Unavailable [...] Unavailable Primary Care Provider Unavailale e Sam PARAFFIN PLANT OPERATOR.Saumya WOO Unavailable Suppan PARAFFIN PLANT OPERATOR.EPITAXIAL REACTOR TECHNICIAN, Nanette A Unavailable Nabor Nicole MD Unavailable Suppan PARAFFIN PLANT OPERATOR.EPITAXIAL REACTOR TECHNICIAN, Nanette A Unavailable NAVIN, SANTHOSH Zepeda Primary Care Unavailable [...] ACID] Drug Allergy 7 Intolerance, Other [facility] Repository (1 source) Mold; Translations: [MOLDS] Propensity to adverse reactions to drug (disorder) 9 [facility] Repository (7 sources) CAT HAIR EXTRACT; Translations: [CAT HAIR EXTRACT] Propensity to adverse reactions to drug (disorder) 6 Itching [facility] Repository (20 sources) Cat; Translations: [CATS] Allergy to substance [address] [facility] (20 sources) Cat Hair Extract; Translations: [CAT HAIR STANDARDIZED ALLERGENIC EXTRACT] Drug Allergy [address] [facility] (20 sources) Mold Spores; Translations: [MOLD SPORES] Allergy to substance 6 Other: See Comments [facility] (8 sources) Mold Extract Drug Allergy 9 Nausea [facility] (20 sources) zolpidem; Translations: [ZOLPIDEM] Drug Allergy 3 Other: See Comments [facility] (3 sources) animal dander; Translations: [animal dander] Allergy to substance 3 difficulty breathing [facility] (1 source) Mold Extract Drug Allergy 5 [facility] Repository (1 source) zolpidem Drug Allergy 5 [facility] Repository Medications Current Medications Medication Drug [...] on above: Take 2 tablets by mo [facility] every 8 hours as needed for Pain. [...] 31, 2016 12:00am August 29, 2024 9:33am X-Jwnthou-Z-Biotin-Minerals- FA (DIATX ZN ORAL) (6 sources) Start: 04-13-2018 T-Ddlpmui-V-Biotin-Minerals- FA (DIATX ZN ORAL) Take 1 Tablet by mouth. 04/13/2018 Active Start: 04-13-2018 J-Kekbgnw-H-Bi oqqu-Ehxnegyq-NJ (DIATX ZN ORAL) Take 1 Tablet by [...] neuropathy, without long-term current use of insulin ([facility]) Freestyle LITE Meter Kit -Test blood sugars one time daily. DX E11.40 1 Each 02/04/2022 08/28/2023 Discontinued Start: 02-04-2022 End: 08-28-2023 Blood-Glucose Meter (FREESTY LE LITE METER) monitoring kit Indications: Type 2 diabetes mellitus with diabetic neuropathy, without long-term current use of insulin ([facility]) Freestyle LITE Meter Kit -Test blood sugars one time daily. DX E11.40 1 Each 0 02/04/2022 08/28/2023 Discontinued Start: 02-04-2022 Blood-Glucose Meter (FREESTYLE LITE METER) monitoring kit Indications: Type 2 diabetes mellitus with diabetic neuropathy, without long-term current use of insulin ([facility]) Freestyle LITE Meter Kit -Test blood sugars [...] chin strap (if indicated) and lifetime supplies ([employer]) DX: KRZYSZTOF G47.33 1 Device 07/19/2018 [...] disease), lumbar , PVD (peripheral vascular disease) ([facility]) , Claudication ([facility]) Lightweight wheelchair DX: DDD, neuropathy 1 Each [...] chin strap (if indicated) and lifetime supplies ([facility]) DX: KRZYSZTOF G47.33 CPAP (20 sources) Start: [...] 180 days. Take 1 capsule by mo [facility] three times daily for 90 days. Take 1 capsule by mo [facility] three times daily for 30 days. Take 1 capsule by mo [facility] three times a day for 30 days. Take 1 capsule by mo [facility] three times a day for 90 days. Take 1 tablet by [facility] three times a day for 180 days. [...] Comment on above: Take 1 tablet by [facility] twice daily. Take 1 tablet by [facility] two times a day. lidocaine hydrochloride 20 [...] Comment on above: Take 1 tablet by [facility] once daily as needed. pantoprazole 40 mg delayed release oral tablet (20 sources) Proton Pump Inhibitor Start: 9 End: 5 take 1 tablet by mouth twice daily pantoprazole DR (PROTONIX) 40 mg tablet Indications: Powers's esophagus with dysplasia Take 1 tablet by mouth two times a day. 180 tablet 1 05/06/2024 Active Start: 08-23-2015 take 2 tablets by mo [facility] once daily Pantoprazole 40 MG tablet Active 80 mg PO DAILY August 23, 2015 12:00am Start: 08-23-2015 take 40 mg by mouth once daily Pantoprazole Active 40 MG PO DAILY August 23, 2015 12:00am Comment on above: Take 1 tablet [facility] daily. Take 1 tablet by [facility] two times a day. phenylephrine hydrochloride 25 [...] Comment on above: Take 2 tablets by [facility] once daily for 5 days. prochlorperazine 10 [...] WEEK August 29, 2024 12:00am Thyroid (Pork) (Tennyson Thyroid) 60 MG tablet (1 source) Start: 08-23-2015 take 1 tablet by mouth twice daily Thyroid (Pork) (Tennyson Thyroid) 60 MG tablet Active 60 mg PO TWICE A DAY August 23, 2015 12:00am thyroid (halfway) 60 mg oral tablet (20 sources) Start: [...] HOURS NEEDED 12 23October 31, 2017 12:00am [id number] 200 actuat albuterol 0.09 mg/actuat metered dose [...] extended release oral tablet (1 source) Uncompetitive O-bxqlvh-D-aspartate Receptor Antagonist, Sigma-1 Agonist Start: 024 End: [...] D2) (Vitamin D2) 50,000 UNIT capsule Discontinued 39930 U PO ALLEN December 31, 2016 12:00am [...] Comment on above: Take 1 tablet by [facility] every 8 hours as needed. vitamin B [...] Coronary atherosclerosis; Translations: [Atherosclerotic heart disease of [place] coronary artery without angina pectoris] Onset: 0 [...] DETAIL on 09-03-2024 ED MED ADMINISTRATION DETAIL Steel Die Printer Medication Administration Record [address] [address] [id number] 09/02/2024 Patient: INÉS SHANKS Sex: Female : 1965 Age: 58y MEASUREMENTS: Wt: 74.8 kg, Ht/Abrahan: 68.0 in, BMI: 25.09 ALLERGIES: No known drug allergies Medication Ordered Medication Administration Date/Time 1 of 1 Normal [facility] ED NURSES CLINICAL NOTEon ED NURSES CLINICAL NOTE Nurse Narrative Nurse Clinical Narrative [place] [address] [place] [address] [id number] 09/02/2024 19:25:00 Patient: INÉS SHANKS Sex: Female [...] the Pt had a CT scan at [facility] ER on Thursday and it came [...] of patient arrival was not received. Treatment [employer]ER HAND: None. 1 of 5 Nurse Narrative SEPSIS [...] 24 hr -- 20:09/02/24 EDT Leydi Wayne-P. Tennyson Thyroid 60 mg tablet -- 20:09/02/24 EDT [...] E.M.T.-P. FreeStyle Lite Strips -- 20:09/02/24 EDT Mgiuel Ángel Armstrong E.M.T.-P. FreeStyle Lite Meter kit [...] -- 20:09/02/24 EDT Miguel Ángel Armstrong E.M.T.-P. WAFER POLISHER Thyroid 60 mg tablet -- 20:09/02/24 EDT [...] chest to (more content not included)... Normal [facility] ED ORDER SHEET (CPOE ONLY)on 09-03-2024 ED ORDER SHEET (CPOE ONLY) Order Sheet Order Sheet [address] [place] [address] [id number] 09/02/2024 Patient: INÉS SHANKS Sex: Female : [...] Order Description Priority Entered Acknowledged Collected Completed Fur Tinter 20:09/02/2024 20:01 09/02/2024 20:19 09/02/2024 Xavi Myers, [...] (09/03/2024 04:43 EDT)] 3 of 3 Normal [facility] ED PHYSICIAN CLINICAL REPORT on 09-03-2024 ED PHYSICIAN CLINICAL REPORT Narrative Physician Clinical Narrative [address] [address] [id number] 09/02/2024 19:25:00 Patient: INÉS SHANKS Sex: Female [...] Surgeries: Abdominoplasty Ablation of spinal nerves Medications: Tennyson Thyroid 60 mg tablet bupropion HCl SR [...] ER 25 mg tablet,extended release 24 hr WAFER POLISHER Thyroid 60 mg tablet ondansetron HCl 4 [...] (Old stapled laceration noted. Was stapled at [facility] last Thursday). No laceration. Eyes: Pupils equal, [...] Test Resul (more content not included)... Normal [facility] ED [facility] 09-03-2024 ED [place] [address] [place] [address] [id number] 09/02/2024 Patient: INÉS SHANKS Sex: Female : 1965 Age: 58y Item Professional Category Description Facility Code Code Quantity Fee Total Nurse/E/M EMERGENCY 846190 1 $0.00 $0.00 DEPARTMENT VISIT MODERATE SEVERITY (94181-83) Grand Total $0.00 Providers Casandra Kelley D.O. Chief Complaint INJURY TO HEAD and INJURY TO NECK. Principal Diagnosis Minor closed head injury. No loss of consciousness. No concussion or skull fracture. Cervical strain. Fall on the same level by stumbling. 1 of 2 [facility] ICD-10 Codes S06.890A: Other specified intracranial injury without loss of consciousness, initial encounter S16.1xxA: Strain of muscle, fascia and tendon at neck level, initial encounter W01.0XXA: Fall on same level from slipping, tripping and stumbling without subsequent striking against object, initial encounter 2 of 2 Normal [facility] ED VISIT SUMMARYon ED VISIT SUMMARY Visit Overview Visit Overview [place] [address] [facility] [place] [address] [id number] 09/02/2024 Patient: INÉS SHANKS Sex: Female : [...] the Pt had a CT scan at [facility] ER on Thursday and it came back negative.), and (Pt fell in bathroom from standing height. Pt fell backward and the back of her head punched through the drywall. Negative LOC. No vomiting or nausea, no dizziness at this time.) ALLERGIES No Known Drug Allergies HOME MEDICATIONS Tennyson Thyroid 60 mg tablet bupropion HCl SR [...] ER 25 mg tablet,extended release 24 hr WAFER POLISHER Thyroid 60 mg tablet ondansetron HCl 4 [...] OR SKULL FRACTURE 5 of 5 Normal [facility] ED VITALS FLOW SHEETon 09-03 ED VITALS FLOW SHEET Vitals Vital Sign Flow Sheet [facility] [address] [place] [address] [id number] 09/02/2024 Patient: INÉS SHANKS Sex: Female : [...] 138/98 103 80 3 of 3 Normal [facility] CBC + DIFFon 09-02-2024 Baso # 0.01 x10EE3/UL Normal 0.00 - 0.10 [facility] Comment on above: Performed By: #### 2 12710 #### [place] [address] Basophils/100 WBC (Bld) 0.2 % Normal 0.0 - 2.0 [facility] Comment on above: Performed By: #### 2 16925 #### [place] [id number] CBC + DIFF Normal [facility] Comment on above: Result Comment: CBC- COMPLETE BLOOD COUNT Performed By: #### 2 32281 #### [facility],[address] [place] [address] EO # 0.03 x10EE3/UL Normal 0.00 - 0.50 [facility] Comment on above: Performed By: #### 2 68235 #### [facility],[address] [place] [address] Eosinophils/100 WBC (Bld) 0.4 % Normal 0.0 - 7.0 [facility] Comment on above: Performed By: #### 2 74389 #### [facility],[address] [place] [address] Erythrocyte distribution width (RBC) [Ratio] 13.4 % Normal 12.0 - 15.6 [facility] Comment on above: Performed By: #### 2 05590 #### [facility],[address] [place] [address] Hematocrit (Bld) [Volume fraction] 33.7 % Low 34.0 - 46.0 [facility] Comment on above: Performed By: #### 2 30468 #### [facility],[address] [place] [address] Hemoglobin (Bld) [Mass/Vol] 12.1 g/dL Normal 12.0 - 16.0 [facility] Comment on above: Performed By: #### 2 73793 #### [facility],[address] [place] [address] Lymph # 1.42 x10EE3/UL Normal 0.80 - 2.80 [facility] Comment on above: Performed By: #### 2 90113 #### [facility],[address] [place] [address] Lymphocytes/100 WBC (Bld) 21.3 % Normal 20.0 - 45.0 [facility] Comment on above: Performed By: #### 2 94906 #### [facility],[address] [place] [address] MANUAL DIFF N/A Normal [facility] Comment on above: Performed By: #### 2 47669 #### [facility],[address] [place] [address] MCH (RBC) [Entitic mass] 31 pg Normal 27 - 33 [facility] Comment on above: Performed By: #### 2 46080 #### [facility],[address] [place] [address] MCHC 36 X10 3 Normal 32 - 36 [facility] Comment on above: Performed By: #### 2 64891 #### [facility],[address] [place] [address] MCV (RBC) [Entitic vol] 87 fL Normal 80 - 99 [facility] Comment on above: Performed By: #### 2 36451 #### [facility],[address] [place] [address] Sunflower # 0.29 x10EE3/UL Normal 0.20 - 1.00 [facility] Comment on above: Performed By: #### 2 87298 #### [facility],[address] [place] [address] MONOS % 4.4 % Normal 0.0 - 10.0 [facility] Comment on above: Performed By: #### 2 42185 #### [facility],[address] [place] [address] Morphology Heri (Bld) [Interp] N/A Normal [facility] Comment on above: Performed By: #### 2 53502 #### [facility],[address] [place] [address] Neut # 4.90 x10EE3/UL Normal 1.50 - 7.10 [facility] Comment on above: Performed By: #### 2 86762 #### [facility],[address] [place], [place] [id number] Neutrophils/100 WBC (Bld) 73.6 % Normal 46.0 - 76.0 [facility] Comment on above: Performed By: #### 2 15810 #### [facility],[address] [place] [address] PLATELET 190 x10EE3/UL Normal 150 - 450 [facility] Comment on above: Performed By: #### 2 76718 #### [facility],[address] [place] [address] Platelet mean volume (Bld) [Entitic vol] 8.2 fL Normal 6.6 - 10.5 [facility] Comment on above: Result Comment: AUTO MATED DIFFERENTIAL Performed By: #### 2 53747 #### [facility],[address] [place], [place] [id number] RBC 3.87 x 10EE6/UL Low 4.10 - 5.30 [facility] Comment on above: Performed By: #### 2 85222 #### [facility],[address] [place] [address] WBC 6.7 x 10EE3/UL Normal 4.5 - 10.8 [facility] Comment on above: Performed By: #### 2 60066 #### [facility],[address] [place] [address]83[address] CMP with eGFRon 09-02-2024 AGE 58 years Normal [facility] Comment on above: Performed By: #### 2 87925 #### [facility],[address] [place] [address] Albumin [Mass/Vol] 3.3 g/dL Low 3.4 - 5.0 [facility] Comment on above: Performed By: #### 2 85544 #### [facility],[address] [place] [address] 29741 Albumin/Globulin [Mass ratio] 0.9 {ratio} Normal 0.9 - 1.6 [facility] Comment on above: Performed By: #### 2 32028 #### [facility],[address] [place] [address]1801 ALK PHOS 31 U/L Low 46 - 116 [facility] Comment on above: Performed By: #### 2 69186 #### [facility],[address] [place] [address] 44600 ALT [Catalytic activity/Vol] 8 U/L Low 16 - 63 [facility] Comment on above: Performed By: #### 2 37911 #### [facility],[address] [place] [address] 39711 Anion gap [Moles/Vol] 16 mmol/L Normal 10 - 20 [facility] Comment on above: Performed By: #### 2 95574 #### [facility],[address] [place] [address] 99995 AST [Catalytic activity/Vol] 13 U/L Normal 13 - 39 [facility] Comment on above: Performed By: #### 2 42863 #### [facility],[address] [place] [address] 94996 B/C RATIO 13 ratio Normal 0 - 30 [facility] Comment on above: Performed By: #### 2 19508 #### [facility],[address] [place] [address] 84290 Bilirubin [Mass/Vol] 0.4 mg/dL Normal 0.2 - 1.0 [facility] Comment on above: Performed By: #### 2 59657 #### [facility],[address] [place] [address] 53485 Calcium [Mass/Vol] 9.4 mg/dL Normal 8.5 - 10.1 [facility] Comment on above: Performed By: #### 2 71606 #### [facility],[address] [place] [address] 57446 Chloride [Moles/Vol] 109 mmol/L High 98 - 107 [facility] Comment on above: Performed By: #### 2 13946 #### [facility],[address] [place] [address] 87497 CMP with eGFR Normal [facility] Comment on above: Result Comment: COMP REHENSIVE METABOLIC PANEL Performed By: #### 2 60763 #### [facility],[address] [place] [address] 75246 CO2 [Moles/Vol] 23.0 mmol/L Normal 21.0 - 32.0 [facility] Comment on above: Performed By: #### 2 43989 #### [facility],[address] [place] [address] 89172 Creatinine [Mass/Vol] 1.42 mg/dL High 0.55 - 1.02 [facility] Comment on above: Performed By: #### 2 76737 #### [facility],[address] [place] [address] 34635 eGFR 38 ML/MINUTE Low 60 - 999 [facility] Comment on above: Performed By: #### 2 84660 #### [facility],[address] [place] [address] 27922 eGFR(AA) 46 ML/MINUTE Low 60 - 999 [facility] Comment on above: Result Comment: ACCO RDING TO THE NATIONAL KIDNEY DISEASE EDUCATION PROGRAM(NKDE), A NORMAL eGFR IS A VALUE GREATER THAN OR EQUAL TO 60 ML/MIN/1.73 SQ METERS. CHRONIC KIDNEY DISEASE: <60mL/MIN/1.73 SQ METERS KIDNEY FAILURE: <15mL/MIN/1.73 SQ METERS THIS TEST SHOULD ONLY BE USED FOR PATIENTS 18 YEARS OF AGE AND OLDER. Performed By: #### 2 15881 #### [facility],[address] [place] [address] 50618 Globulin (S) [Mass/Vol] 3.5 g/dL Normal 1.5 - 3.8 [facility] Comment on above: Performed By: #### 2 92890 #### [facility],[address] [place] [address] 16779 Glucose [Mass/Vol] 92 mg/dL Normal 74 - 106 [facility] Comment on above: Performed By: #### 2 88220 #### [facility],[address] [place] [address] 88531 Potassium [Moles/Vol] 4.4 mmol/L Normal 3.5 - 5.1 [facility] Comment on above: Performed By: #### 2 22423 #### [facility],[address] [place] [address] 34851 Protein [Mass/Vol] 6.8 g/dL Normal 6.4 - 8.2 [facility] Comment on above: Performed By: #### 2 46784 #### [facility],[address] [place] [address] 78202 Sodium [Moles/Vol] 144 mmol/L Normal 136 - 145 [facility] Comment on above: Performed By: #### 2 89810 #### [facility],[address] [place] [address] 34460 Urea nitrogen [Mass/Vol] 19 mg/dL High 7 - 18 [facility] Comment on above: Performed By: #### 2 76338 #### [facility],[address] [place] [address] BRAIN W/O CONTRASTon - CT BRAIN W/O CONTRAST [place] [address] Patient: INÉS SHANKS Phone#: : 1965 Age: 58 Gender: F Pt. Type: ER Account: [id number] Location: 052 Ordering: CASANDRA KELLEY Exam Date: 09/02/2024/20:18 Family Phys: Charge Code: [id number] Physician: [place] Order #: [id number] Dose#: 52.3 PROCEDURE: CT BRAIN WITHOUT CONTRAST [...] Shaw MD on 09/03/2024 at 8:53 Normal [facility] CT CERVICAL W/O CONTRASTon 0 09-02-2024 CT CERVICAL W/O CONTRAST [place] [address] Patient: INÉS SHANKS Phone#: : 1965 Age: 58 Gender: F Pt. Type: ER Account: [id number] Location: 052 Ordering: CASANDRA KELLEY Exam Date: 09/02/2024/20:56 Family Phys: Charge Code: [id number] Physician: [place] Order #: [id number] Dose#: 10.1 PROCEDURE: CT CERVICAL WITHOUT CONTRAST [...] 58 Gender: F Pt. Type: ER Account: [id number] Location: [facility] Ordering: CASANDRA KELLEY Exam Date: 09/02/2024/20:56 Family Phys: Charge Code: [id number] Physician: [place] Order #: [id number] Dose#: 10.1 Approved by: Padmini Shaw MD on 09/03/2024 at 8:54 Normal [facility] NT-proBNPon 09-02-2024 Natriuretic peptide B (Bld) [Mass/Vol] 1095 pg/mL High 0 - 125 [facility] Comment on above: Performed By: #### 2 70720 #### [facility],[address] [place] [address] TROPONINon 09-02-2024 HS TROPONIN 9.5 pg/mL Normal 0.0 - 51.4 [facility] Comment on above: Performed By: #### 2 99011 ####[facility],[address] [facility] [address] Brain/Head without Contrasto n 08-29-2024 Brain/Head without Contrast [facility] Imaging Services [address] [place], [place] [address] Brain/Head without Contrast MR#: [id number] Acct: [id number] Name: INÉS SHANKS JOANN Rep #: [id number] : 1965 F 58 From: Flaco Fox DO PCP: Dr. Santhosh Holden MD Status: PRE ER Study: Brain/Head without Contrast Date of Exam: 12/15 Exam# [id number] Ordering Dr: Sachin Walton DO PROCEDURE: BRAIN/HEAD [...] chronic small-vessel ischemic changes . Reading Location: [facility] CC: Dr. Sachin Walton DO; Dr. Santhosh Holden MD Rn Case Manager: Signed Normal [facility] Emergency Department Summary on 08-29-2024 Emergency Department Summary [facility] Medical Records Department [address] [place] [address] Emergency Department Summary 08/29/24 MR#: [id number] Acct: [id number] Name: INÉS SHANKS JOANN Rep #: [id number] : 1965 58 From: Sachin Walton DO [...] 15 Psych: Cooperative, appropriate mood and affect [facility] Medical History Powers's esophagus Diabetes DJD (degenerative [...] 60 mg PO BID thyroid 08/23/1511/14 History (Tennyson Thyroid) nitroglycerin 0.4 mg sublingual 0.4 mg [...] 09:19 zolpide (more content not included)... Normal [facility] Sinus/Facial Boneon 08-30-19 25 Sinus/Facial Bone [facility] Imaging Services [address] [place], [place] [address] Sinus/Facial Bone MR#: [id number] Acct: [id number] Name: INÉS SHANKS Rep #: [id number] : 1965 F 58 From: Asif angulo MD PCP: Dr. Santhosh Holden MD Status: PRE ER Study: Sinus/Facial Bone Date of Exam: 08/29/24 Exam# [id number] Ordering Dr: Sachin Walton DO PROCEDURE: SINUS/FACIAL [...] No acute abnormality is seen. Reading Location: [place] [address] CC: Dr. Sachin Walton DO; Dr. Santhosh Holden MD Rn Case Manager: Signed Normal [facility] Spine Cervical without Contr ason 08-29-2024 Spine Cervical without Contras [facility] Imaging Services [address] [facility] [place] [id number] Spine Cervical without Contras MR#: [id number] Acct: [id number] Name: INÉS SHANKS Rep #: [id number] : 1965 F 58 From: Asif angulo MD PCP: Dr. Santhosh Holden MD Status: PRE ER Study: Spine Cervical without Contras Date of Exam: 0 08/29/24 Exam# [id number] Ordering Dr: Sachin Walton DO PROCEDURE: SPINE [...] CANAL OR NEURAL FORAMINAL STENOSIS. Reading Location: [facility] CC: Dr. Sachin Walton DO; Dr. Santhosh Holden MD Rn Case Manager: Signed Normal [facility] CNOVon 06-22-2024 CNOV Office Visit ([facility] INÉS SHANKS ([id number]) 1965 F Date Time Provider Department 06/22/24 1:00 PM [facility] During your visit today, we recorded the [...] daily. ca (more content not included)... Normal [facility] CNOVon 06-03-2024 CNOV Office Visit ([facility] ) INÉS SHANKS ([id number]) 1965 F Date Time Provider Department 06/03/24 [...] She presents to clinic in [facility]. She reports to walking barefoot at [...] 5.0 4.3 - 5.6 % Final Comment: English Diabetes Association guidelines indicate that patients with HgbA1c in the range 5.7-6.4% are at increased risk for development of diabetes, and intervention by lifestyle modification may be beneficial. HgbA1c greater or equal to 6.5% is considered diagnostic of diabetes. PCP: Santhosh Holden MD PAST MEDICAL HISTORY Diagnosis Date Anxiety Powers's esophagus Bipolar 1 disorder ([facility]) Dr. Orozco, psychiatry Chronic headaches Coronary-myocardial bridge DDD (degenerative disc disease) Depression 01/05/2015 Essential tremor TK tremor Fibromyalgia GERD (gastroesophageal reflux disease) HTN (hypertension) Hyperlipidemia Hypothyroid Liver fibrosis Mild CAD 08/22/2019 Neuropathy Non-melanoma skin cancer 03/08/2021 Obstructive sleep apnea PTSD (post-traumatic stress disorder) PVD (peripheral vascular disease) ([facility]) Sciatica Shoulder injury Type II or unspecified [...] with m (more content not included)... Normal [facility] US KIDNEY/BLADDERon 06-04-19 25 US KIDNEY/BLADDER * [...] Pre and postvoid bladder volumes as described. Rn Case Manager: PSCB Transcribe Date/Time: Jun 06 2024 4:06P Dictated by : CHANTELL LIZ MD This examination was interpreted and the report reviewed and electronically signed by: CHANTELL LIZ MD on Jun 06 2024 4:09PM EST [id number] Normal [facility] XR TOE 3V AP/LAT/OBL RTon XR TOE [...] evident. IMPRESSION: Healing great toe tuft fracture Rn Case Manager: MEERA Transcribe Date/Time: Jun 08 2024 10:05A Dictated by : JOHNNY MONTES MD This examination was interpreted and the report reviewed and electronically signed by: JOHNNY MONTES MD on Jun 08 2024 10:06AM EST [id number] Normal [facility]AN[facility] ([id number]) 1965 F Date Time Provider Department 05/23/24 [facility] During your visit today, we recorded the [...] FECAL OCCULT BLOOD TEST [SQIFOBT] Order #: [id number]. #:[id number] COMPLETE BLOOD COUNT AND DIFFERENTIAL [SQCBCDIF] Order #: [id number] FUTURE FERRITIN [SQFERR] Order #: [id number] FUTURE BASIC METABOLIC PANEL [SQBMP] Order #: [id number] FUTURE URINALYSIS, WITH MICROSCOPIC [SQUAWMIC] Order #: [id number] FUTURE US KIDNEY/BLADDER [[id number]] Order #: [id number] FUTURE Prescriptions as of 05/25/2024 - blood [...] chin strap (if indicated) and lifetime supplies ([facility]) DX: KRZYSZTOF G47.33 - multivit with minerals/lutein (MULTIVITAMIN 50 PLUS ORAL) Take 1 tablet by mouth once daily. - COMPOUNDED PRESCRIPTION Diabetic shoes One (more content not included)... Normal [facility] 25(OH)D3 [facility] 25-hydroxyvitamin D3 [Mass/Vol] 27.8 ng/mL Low 31.0-80.0 [facility] Comment on above: Order Comment: Speci men Type: BLOOD SPECIMENOrdering Facility: [facility] Address: [address] [place] [address] Performed By: #### 1 989-3 ####[facility] [id number] [place] [address] [place] AFP [facility] 05-20-2024 AFP [Mass/Vol] 1.99 ng/mL Normal <9.00 [facility] Comment on above: Order Comment: Speci men Type: BLOOD SPECIMENOrdering Facility: [facility] Address: [address] [place] [address] Result Comment: The Alpha-Fetoprotein test was performed using the [employer] DxI immunoenzymatic assay. Results obtained with different assay methods or kits cannot be used interchangeably. Performed By: #### 1 834-1 ####[facility] [id number] [place] [address] [place] CBC W Auto Differential pane l (Bld)on 05-20-2024 Basophils (Bld) [#/Vol] 0.05 10*3/uL Normal <0.11 [facility] Comment on above: Order Comment: Speci men Type: BLOOD SPECIMENOrdering Facility: [facility] Address: [address] [place] [address] Performed By: #### 5 7021-8 ####[facility]ATORYCLIA [id number] [address] [place] [facility] Basophils/100 WBC (Bld) 0.7 % Normal [facility] Comment on above: Order Comment: Speci men Type: BLOOD SPECIMENOrdering Facility: [facility] Address: [address] [place] [address] Performed By: #### 5 7021-8 ####[facility] LABORATORYCLIA [id number] [address] [place] [facility] Differential cell count method Nom (Bld) Auto Normal [facility] Comment on above: Order Comment: Speci men Type: BLOOD SPECIMENOrdering Facility: [facility] Address: [address] [place] [address] Performed By: #### 5 7021-8 ####[facility] LABORATORYCLIA [id number] [place] [address] [place] Eosinophils (Bld) [#/Vol] 0.04 10*3/uL Normal <0.46 [facility] Comment on above: Order Comment: Speci men Type: BLOOD SPECIMENOrdering Facility: [facility] Address: [address] [place] [address] Performed By: #### 5 7021-8 ####[facility]ORYCLIA [id number] [address] [place] Eosinophils/100 WBC (Bld) 0.5 % Normal [facility] Comment on above: Order Comment: Speci men Type: BLOOD SPECIMENOrdering Facility: [facility] Address: [address] [place] [address] Performed By: #### 5 7021-8 ####[facility]ATORYCLIA [id number] [address] [place] Erythrocyte distribution width (RBC) [Ratio] 12.5 % Normal 11.5-15.0 [facility] Comment on above: Order Comment: Speci men Type: BLOOD SPECIMENOrdering Facility: [facility] Address: [address] [place] [address] Performed By: #### 5 7021-8 ####[facility]ORATORYCLIA [id number] [address] [place] Hematocrit (Bld) [Volume fraction] 35.5 % Low 36.0-46.0 [facility] Comment on above: Order Comment: Speci men Type: BLOOD SPECIMENOrdering Facility: [facility] Address: [address] [place] [address] Performed By: #### 5 7021-8 ####[facility]ORATORYCLIA [id number] [place] [address] [place] Hemoglobin (Bld) [Mass/Vol] 11.4 g/dL Low 11.5-15.5 [facility] Comment on above: Order Comment: Speci men Type: BLOOD SPECIMENOrdering Facility: [facility] Address: [address] [place] [address] Performed By: #### 5 7021-8 ####[facility]ORATORYCLIA [id number] [place] [address] [place] Immature granulocytes (Bld) [#/Vol] 10*3/uL Normal <0.10 [facility] Comment on above: Order Comment: Speci men Type: BLOOD SPECIMENOrdering Facility: [facility] Address: [address] [place] [address] Performed By: #### 5 7021-8 ####[facility] LABORATORYCLIA [id number] [address] [place] Immature granulocytes/100 WBC (Bld) 0.3 % Normal [facility] Comment on above: Order Comment: Speci men Type: BLOOD SPECIMENOrdering Facility: [facility] Address: [address] [place] [address] Performed By: #### 5 7021-8 ####[facility]ORATORYCLIA [id number] [place] [address] [place] Lymphocytes (Bld) [#/Vol] 3.03 10*3/uL Normal 1.00-4.00 [facility] Comment on above: Order Comment: Speci men Type: BLOOD SPECIMENOrdering Facility: [facility] Address: [address] [place] [address] Performed By: #### 5 7021-8 ####[facility]ORYCLIA [id number] [address] Lymphocytes/100 WBC (Bld) 41.6 % Normal [facility] Comment on above: Order Comment: Speci men Type: BLOOD SPECIMENOrdering Facility: [facility] Address: [address] [place] [address] Performed By: #### 5 7021-8 ####[facility] LABORATORYCLIA [id number] [address] [place] MCH (RBC) [Entitic mass] 28.1 pg Normal 26.0-34.0 [facility] Comment on above: Order Comment: Speci men Type: BLOOD SPECIMENOrdering Facility: [facility] Address: [address] [place] [address] Performed By: #### 5 7021-8 ####[facility] LABORATORYCLIA [id number] [address] [place] MCHC (RBC) [Mass/Vol] 32.1 g/dL Normal 30.5-36.0 [facility] Comment on above: Order Comment: Speci men Type: BLOOD SPECIMENOrdering Facility: [facility] Address: [address] [place] [address] Performed By: #### 5 7021-8 ####[facility] LABORATORYCLIA [id number] [address] [place] MCV (RBC) [Entitic vol] 87.7 fL Normal 80.0-100.0 [facility] Comment on above: Order Comment: Speci men Type: BLOOD SPECIMENOrdering Facility: [facility] Address: [address] [place] [address] Performed By: #### 5 7021-8 ####[facility]ORATORYCLIA [id number] [place] [address] [place] Monocytes (Bld) [#/Vol] 0.36 10*3/uL Normal <0.87 [facility] Comment on above: Order Comment: Speci men Type: BLOOD SPECIMENOrdering Facility: [facility] Address: [address] [place] [address] Performed By: #### 5 7021-8 ####[facility]ORYCLIA [id number] [address] [place] Monocytes/100 WBC (Bld) 4.9 % Normal [facility] Comment on above: Order Comment: Speci men Type: BLOOD SPECIMENOrdering Facility: [facility] Address: [address] [place] [address] Performed By: #### 5 7021-8 ####[facility] LABORATORYCLIA [id number] [address] [place] Neutrophils (Bld) [#/Vol] 3.79 10*3/uL Normal 1.45-7.50 [facility] Comment on above: Order Comment: Speci men Type: BLOOD SPECIMENOrdering Facility: [facility] Address: [address] [place] [address] Performed By: #### 5 7021-8 ####[facility]ORATORYCLIA [id number] [address] [place] Neutrophils/100 WBC (Bld) 52.0 % Normal [facility] Comment on above: Order Comment: Speci men Type: BLOOD SPECIMENOrdering Facility: [facility] Address: [address] [place] [address] Performed By: #### 5 7021-8 ####[facility]ATORYCLIA [id number] [place] [address] [place] Nucleated RBC (Bld) [#/Vol] 10*3/uL Normal <0.01 [facility] Comment on above: Order Comment: Speci men Type: BLOOD SPECIMENOrdering Facility: [facility] Address: [address] [place] [address] Performed By: #### 5 7021-8 ####[facility]ORATORYCLIA [id number] [address] [place] Nucleated RBC/100 WBC (Bld) [Ratio] 0.0 /100 WBC Normal [facility] Comment on above: Order Comment: Speci men Type: BLOOD SPECIMENOrdering Facility: [facility] Address: [address] [place] [address] Performed By: #### 5 7021-8 ####[facility] LABORATORYCLIA [id number] [place] [address] [place] Platelet mean volume (Bld) [Entitic vol] 11.3 fL Normal 9.0-12.7 [facility] Comment on above: Order Comment: Speci men Type: BLOOD SPECIMENOrdering Facility: [facility] Address: [address] [place] [address] Performed By: #### 5 7021-8 ####[facility] LABORATORYCLIA [id number] [place] [address] [place] Platelets (Bld) [#/Vol] 223 10*3/uL Normal 150-400 [facility] Comment on above: Order Comment: Speci men Type: BLOOD SPECIMENOrdering Facility: [facility] Address: [address] [place] [address] Performed By: #### 5 7021-8 ####[facility] LABORATORYCLIA [id number] [place] [address] [place] RBC (Bld) [#/Vol] 4.05 10*6/uL Normal 3.90-5.20 [facility] Comment on above: Order Comment: Speci men Type: BLOOD SPECIMENOrdering Facility: [facility] Address: [address] [place] [address] Performed By: #### 5 7021-8 ####[facility] LABORATORYCLIA [id number] [place] [address] [place] WBC (Bld) [#/Vol] 7.29 10*3/uL Normal 3.70-11.00 [facility] Comment on above: Order Comment: Speci men Type: BLOOD SPECIMENOrdering Facility: [facility] Address: [address] [place] [address] Performed By: #### 5 7021-8 ####[facility] LABORATORYCLIA [id number] [place] [address] [place] [facility] CNOVon 05-20-2024 CNOV Office Visit ([facility] ) INÉS SHANKS ([id number]) 1965 F Date Time Provider Department 05/20/24 2:00 PM [facility] During your visit today, we recorded the [...] chin strap (if indicated) and lifetime supplies ([facility]) DX: KRZYSZTOF G47.33 multivit with minerals/lutein (MULTIVITAMIN [...] Lightweight wheel (more content not included)... Normal [facility] Comprehensive metabolic 2000 panelon 05-20-2024 Albumin [Mass/Vol] 3.8 g/dL Low 3.9-4.[address] [facility] Comment on above: Order Comment: Speci men Type: BLOOD SPECIMENOrdering Facility: [facility] Address: [address] [place] [address] Performed By: #### 3 016-3, 11956-4, 42033-5 ####[facility] LABORATORYCLIA [id number] [place] [id number] [place] ALP [Catalytic activity/Vol] 49 U/L Normal 34-123 [facility] Comment on above: Order Comment: Speci men Type: BLOOD SPECIMENOrdering Facility: [facility] Address: [address] [place] [address] Performed By: #### 3 016-3, 06547-9, 60366-3 ####[facility] LABORATORYCLIA [id number] [place] [address] [place] ALT With P-5'-P [Catalytic activity/Vol] 11 U/L Normal 7-38 [facility] Comment on above: Order Comment: Speci men Type: BLOOD SPECIMENOrdering Facility: [facility] Address: [address] [place] [address] Performed By: #### 3 016-3, 66543-5, 31210-2 ####[facility]ORATORYCLIA [id number] [place] [address] [place] Anion gap [Moles/Vol] 11 mmol/L Normal 8-15 [facility] Comment on above: Order Comment: Speci men Type: BLOOD SPECIMENOrdering Facility: [facility] Address: [address] [place] [address] Performed By: #### 3 016-3, 16638-9, 04487-1 ####[facility] LABORATORYCLIA [id number] [place] [address] [place] AST With P-5'-P [Catalytic activity/Vol] 19 U/L Normal 13-35 [facility] Comment on above: Order Comment: Speci men Type: BLOOD SPECIMENOrdering Facility: [facility] Address: [address] [place] [address] Performed By: #### 3 016-3, 77933-3, 02232-3 ####[facility] LABORATORYCLIA [id number] [place] [address] [place] Bilirubin [Mass/Vol] 0.2 mg/dL Normal 0.2-1.3 [facility] Comment on above: Order Comment: Speci men Type: BLOOD SPECIMENOrdering Facility: [facility] Address: [address] [place] [address] Performed By: #### 3 016-3, 42870-6, 74158-1 ####[facility]ATORYCLIA [id number] [place] [address] [place] Calcium [Mass/Vol] 9.2 mg/dL Normal 8.5-10.[address] [facility] Comment on above: Order Comment: Speci men Type: BLOOD SPECIMENOrdering Facility: [facility] Address: [address] [place] [address] Performed By: #### 3 016-3, , 29963-7 ####[facility]ATORYCLIA [id number] [place] [address] [place] Chloride [Moles/Vol] 108 mmol/L High 98-107 [facility] Comment on above: Order Comment: Speci men Type: BLOOD SPECIMENOrdering Facility: [facility] Address: [address] [place] [address] Performed By: #### 3 016-3, , 70794-0 ####[facility]ATORYCLIA [id number] [place] [address] [place] CO2 [Moles/Vol] 27 mmol/L Normal 22-30 [facility] Comment on above: Order Comment: Speci men Type: BLOOD SPECIMENOrdering Facility: [facility] Address: [address] [place] [address] Performed By: #### 3 016-3, , 78563-9 ####[facility]ORATORYCLIA [id number] [place] [id number] [place] Creatinine [Mass/Vol] 1.15 mg/dL High 0.58-0.96 [facility] Comment on above: Order Comment: Speci men Type: BLOOD SPECIMENOrdering Facility: [facility] Address: [address] [place] [address] Performed By: #### 3 016-3, 71541-5, 45395-1 ####[facility]ATORYCLIA [id number] [place] [address] [place] Creatinine and Glomerular filtration rate.predicted panel (S/P/Bld) 55 mL/min/1.73m??? Low >=60 [facility] Comment on above: Order Comment: Henry johnson Type: BLOOD SPECIMENOrdering Facility: [facility] Address: [address] [place] [address] Result Comment: Devika mated Glomerular Filtration Rate [...] actual GFR. Performed By: #### 3 016-3, 95113-3, 11101-7 ####[facility] HOSPITALIA [id number] [place] [id number] [place] Glucose [Mass/Vol] 76 mg/dL Normal 74-[address] [facility] Comment on above: Order Comment: Henry johnson Type: BLOOD SPECIMENOrdering Facility: [facility] Address: [address] [place] [address] Result Comment: The English Diabetes Association (ADA) provides guidance for cutoff [...] Standards of Medical Care in Diabetes 2016, English Diabetes Association. Diabetes Care. 2016.39(Suppl 1). Performed By: #### 3 016-3, 17200-4, 06142-5 ####[facility] LABORATORYCLIA [id number] [place] [id number] [place] Potassium [Moles/Vol] 4.5 mmol/L Normal 3.7-5.1 [facility] Comment on above: Order Comment: Speci men Type: BLOOD SPECIMENOrdering Facility: [facility] Address: [address] [place] [address] Performed By: #### 3 016-3, 31448-4, 44338-7 ####[facility] LABORATORYCLIA [id number] [place] [address] [place] Protein [Mass/Vol] 6.4 g/dL Normal 6.3-8.[address] [facility] Comment on above: Order Comment: Speci men Type: BLOOD SPECIMENOrdering Facility: [facility] Address: [address] [place] [address] Performed By: #### 3 016-3, 65932-1, 48436-7 ####[facility] LABORATORYCLIA [id number] [place] [address] [place] Sodium [Moles/Vol] 146 mmol/L High 136-[address] [facility] Comment on above: Order Comment: Speci men Type: BLOOD SPECIMENOrdering Facility: [facility] Address: [address] [place] [address] Performed By: #### 3 016-3, 72070-4, 03601-3 ####Lin[facility] FinanceTIGRE GENERAL LABORATORYCLIA [id number] [place] [id number] [place] Urea nitrogen [Mass/Vol] 15 mg/dL Normal 7-21 [facility] Comment on above: Order Comment: Speci men Type: BLOOD SPECIMENOrdering Facility: [facility] Address: [address] [place] [address] Performed By: #### 3 016-3, 78597-0, 66013-2 ####[facility] FinanceBROADDUS HOSPITAL LABORATORYCLIA [id number] [place] [address] [place] Folate SerPl-mCncon 05-20-19 25 Folate [Mass/Vol] 9.9 ng/mL Normal >4.7 [facility] Comment on above: Order Comment: Speci men Type: BLOOD SPECIMENOrdering Facility: [facility] Address: [address] [place] [address] Performed By: #### 2 132-9, 2284-8 ####[facility] LABORATORYCLIA [id number] [place] [address] [place] [facility] HbA1c (Bld)on 05-20-2024 Average glucose Estimated from glycated hemoglobin (Bld) [Mass/Vol] 97 mg/dL Normal [facility] Comment on above: Order Comment: Speci men Type: BLOOD SPECIMENOrdering Facility: [facility] Address: [address] [place] [address] Result Comment: eAG: (Estimated average glucose) is a calculated value from HgbA1c and is specialty sales representative of the average blood glucose level in the last 2-3 month period. Performed By: #### 5 5454-3 ####[facility] LABCLIA [id number] [address] STATES OF [facility] HbA1c (Bld) [Mass fraction] 5.0 % Normal 4.3-5.6 [facility] Comment on above: Order Comment: Idalmisi men Type: BLOOD SPECIMENOrdering Facility: [facility] Address: [address] [place] [address] Result Comment: Amer ican Diabetes Association guidelines indicate that patients with HgbA1c in the range 5.7-6.4% are at increased risk for development of diabetes, and intervention by lifestyle modification may be beneficial. HgbA1c greater or equal to 6.5% is considered diagnostic of diabetes. Performed By: #### 5 5454-3 ####[facility] LABCLIA [id number] [address] [place] Iron and Iron binding capaci ty panelon 05-20-2024 Iron [Mass/Vol] 70 ug/dL Normal 41-186 [facility] Comment on above: Order Comment: Henry men Type: BLOOD SPECIMENOrdering Facility: [facility] Address: [address] [place] [address] Performed By: #### 3 016-3, 77273-5, 35594-7 ####[facility] LABORATORYCLIA [id number] [address] [place] Iron binding capacity [Mass/Vol] 222 ug/dL Low 232-386 [facility] Comment on above: Order Comment: Speci men Type: BLOOD SPECIMENOrdering Facility: [facility] Address: [address] [place] [address] Performed By: #### 3 016-3, 36157-0, 06637-8 ####[facility]ITALCLIA [id number] [place] [id number] [facility] Iron saturation [Mass fraction] 31.5 % Normal 15.0-57.0 [facility] Comment on above: Order Comment: Speci men Type: BLOOD SPECIMENOrdering Facility: [facility] Address: [address] [place] [address] Performed By: #### 3 016-3, 34923-1, 43916-1 ####[facility] LABORATORYCLIA [id number] [address] OF [facility] TSH SerPl-aCncon 05-20-2024 TSH Qn 1.390 m[IU]/L Normal 0.270-4.200 [facility] Comment on above: Order Comment: Speci men Type: BLOOD SPECIMENOrdering Facility: [facility] Address: [address] [place] [address] Performed By: #### 3 016-3, 90779-1, 84526-1 ####[facility] LABORATORYCLIA [id number] [place] [id number] [place] Vit B12 SerPl-mCncon 025 Cobalamin (Vitamin B12) [Mass/Vol] 909 pg/mL Normal 232-1245 [facility] Comment on above: Order Comment: Speci men Type: BLOOD SPECIMENOrdering Facility: [facility] Address: [address] [place] [address] Performed By: #### 2 132-9, 2284-8 ####[facility] LABORATORYCLIA [id number] [place] [id number] [place] CNOVon 05-13-2024 CNOV Office Visit (PODIWS ) INÉS SHANKS ([id number]) 1965 F Date Time Provider Department 05/13/24 [...] 5.4 4.3 - 5.6 % Final Comment: English Diabetes Association guidelines indicate that patients with [...] sublingual (NITROQUICK (more content not included)... Normal [facility] XR TOE 3V AP/LAT/OBL RTon XR TOE [...] the distal phalanx of the great toe. Rn Case Manager: MEERA Transcribe Date/Time: May 18 2024 7:36A Dictated by : MARIAM BANG MD This examination was interpreted and the report reviewed and electronically signed by: MARIAM BANG MD on May 18 2024 7:38AM EST [id number] Normal [facility] 05-06-2024 CNPN Telephone (PODIWS) INÉS SHANKS ([id number]) 1965 F Date Time Provider Department 05/06/24 DRU SAHU PODIWS During your visit today, we recorded the following information about you: Dru Sahu 05/06/2024 5:44 PM Signed I attempted to contact patient but no answer. Unable to leave voice mail because her voice mail is yet to be set up. Left Koal[employer] message BRITTNY Pickens Matthew 05/10/2024 10:48 AM Signed Contacted patient to discuss xrays. She finally got back to my [employer] message. I would like her to get surgical shoe for fracture of great toe. She is to repeat xrays of right great toe in 2 weeks. Continue with local wound care Hollie Daina LPN 05/10/2024 10:55 AM Signed Patient will slate picker post op shoe on Thursday05/13/2024 at [...] initial encounter [S92.401A] Order(s):XR TOE AP/LAT/OBL RIGHT [[id number]] Order #: [id number] FUTURE E-CONSULT INFECTIOUS DISEASE [[id number]] Order #: [id number]: 1 Prescriptions as of 05/10/2024 - pantoprazole [...] chin strap (if indicated) and lifetime supplies ([facility]) DX: KRZYSZTOF G47.33 - multivit with minerals/lutein (MULTIVITAMIN 50 PLUS ORAL) Take 1 tablet by mouth once daily. - COMPOUNDED PRESCRIPTION Diabetic shoes One pair - CPAP CPAP with humidification. Mask (per patient preference) optional chin strap (if indicated (more content not included)... Normal [facility] Bacteria Wnd Culton 05-05-19 25 Bacteria identified [...] , Intermediate >4 , Resistant >8 Abnormal [facility] Comment on above: Performed By: #### 6 462-6 ####[facility] LABLISA [id number] [address] [place] CNOVon 05-05-2024 CNOV Office Visit (PODIWS ) INÉS SHANKS ([id number]) 1965 F Date Time Provider Department 05/05/24 [...] 5.4 4.3 - 5.6 % Final Comment: English Diabetes Association guidelines indicate that patients with [...] mouth at (more content not included)... Normal [facility] XR TOE 3V AP/LAT/OBL RTon XR TOE [...] distal phalanx. No radiographic evidence of osteomyelitis. Rn Case Manager: [facility] Transcribe Date/Time: May 05 2024 2:38P Dictated by : DEO OROSCO DO This examination was interpreted and the report reviewed and electronically signed by: DEO OROSCO DO on May 05 2024 2:44PM EST [id number] Normal [facility] XR Toes - right 3 Viewson IMPRESSION: Avulsion of the RIGHT great toe nailbed and subacute appearing nondisplaced fracture of the tuft of the RIGHT great toe distal phalanx. No radiographic evidence of osteomyelitis. Rn Case Manager: [facility] Transcribe Date/Time: May 05 2024 2:38P Dictated [...] spaces appear maintained. DIVISION OF RADIOLOGY Provider, [facility] - 05/05/2024 * * *Final Report* * [...] distal phalanx. No radiographic evidence of osteomyelitis. Rn Case Manager: MEERA Transcribe Date/Time: May 05 2024 2:38P Dictated by : DEO OROSCO DO This examination was interpreted and the report reviewed and electronically signed by: DEO OROSCO DO on May 05 2024 2:44PM EST [facility] Radiology Study observation (narrative) [facility] XR Toes - right 3 ViewsOrder ed By: Ccf Provider on 05-05-2024 [facility] Bacteria Wnd Culton 03-29-19 25 Bacteria identified [...] , Intermediate >4 , Resistant >8 Abnormal [facility] Comment on above: Performed By: #### 6 462-6 ####[facility] LABCLIA [id number] [place] [address] [place] Bacteria identified Cx [...] , Intermediate >4 , Resistant >8 Abnormal [facility] Comment on above: Performed By: #### 6 462-6 ####[facility] LABIA [id number] [address] [place] CNNUNUon 03-29-2024 CNOV Office Visit (PODIWS ) INÉS SHANKS ([id number]) 1965 F FNS Date Time Provider Department [...] 5.4 08/31/2019 6.0 09/24/2018 7.8 PCP: Santhosh Hloden MD PAST MEDICAL HISTORY Diagnosis Date Anxiety [...] indicated) and (more content not included)... Normal [facility] CNOVon 01-08-2024 CNOV [facility] INÉS SHANKS ([id number]) 1965 F [facility] Date Time Provider Department 01/08/24 11:30 AM [facility] During your visit today, we recorded the [...] daily with (more content not included)... Normal [facility] CNOVon 12-25-2023 CNOV Office Visit (OTOLMM ) INÉS SHANKS ([id number]) 1965 F FNS Date Time Provider Department [...] electronic medical record. Referring Provider: SANTHOSH HOLDEN [[id number]] Allergies As of Date: 12/25/2023 Noted Allergy [...] Fenofibrate (LOFIB (more content not included)... Normal [facility] CNOV Office Visit (OTATOM ) INÉS SHANKS ([id number]) 1965 F [facility] Date Time Provider Department 12/25/23 9:30 AM JOSE MIR During your visit today, we recorded the following information about you: Jose Mir, AUD 12/25/2023 10:21 AM Signed [place] AUDIOLOGIC EVALUATION REPORT Name: Inés Shanks [facility]#: [id number] Date of Service: 12/25/2023 Date of : 1965 Age: [age] year old Referred by: Dru Collado MD Referred for: Evaluation of suspected change in hearing, tinnitus, or balance. Referral documented: In an order in [facility] Patient's major complaints: Hearing loss: asking [...] made. SUMMARY: Audiogram can be viewed under Forms/Audiology/[email or web address]. OTOSCOPY RIGHT EAR: Otoscopic inspection revealed ear canal was clear with an identifiable cone of light. LEFT EAR: Otoscopic inspection revealed ear canal was clear with an identifiable cone of light. TYMPANOMETRY Description of procedure: This test is an objective evaluation of middle ear function. CPT code: 87832 RIGHT EAR: Did not test. LEFT EAR: Did not test. ACOUSTIC REFLEXES Description of procedure: This test is an objective measure of auditory and facial nerve pathways. CPT code: 61621, 97307 RIGHT EAR PROBE EAR: (ipsi right stimulus [...] bone conduction and speech recognition testing. CPT code:84916 RIGHT EAR: Hearing Sensitivity: Mild SNHL Word [...] for individuals who have Medicaid. Corby Maurice, [facility] Clinical and Senior Hearing Implant Physical Director copied to: Dru Collado MD ROJO Abbrev- iation Definition Degree of hearing sensitivity dB range WNL within normal limits WNL 0 - 20 SNHL sensorineural hearing loss Mild 20-40 CHL conductive hearing loss Moderate 40-55 MHL mixed hearing (more content not included)... Normal [facility] HEARING TEST/AUDIOGRAMon [facility] CBC W Auto Differential pane l (Bld)on 11-11-2023 Basophils (Bld) [#/Vol] 0.03 10*3/uL Normal <0.11 [facility] Comment on above: Order Comment: Speci men Type: BLOOD SPECIMENOrdering Facility: [facility] Address: [address] [place] [address] Performed By: #### 5 7021-8 ####[facility] LABCLIA [id number] [place] [address] [place] Basophils/100 WBC (Bld) 0.5 % Normal [facility] Comment on above: Order Comment: Speci men Type: BLOOD SPECIMENOrdering Facility: [facility] Address: [address] [place] [address] Performed By: #### 5 7021-8 ####[facility] LABCLIA [id number] [place] [address] [place] Differential cell count method Nom (Bld) Auto Normal [facility] Comment on above: Order Comment: Speci men Type: BLOOD SPECIMENOrdering Facility: [facility] Address: [address] [place] [address] Performed By: #### 5 7021-8 ####[facility] LABCLIA [id number] [place] [address] [place] Eosinophils (Bld) [#/Vol] 0.10 10*3/uL Normal <0.46 [facility] Comment on above: Order Comment: Speci men Type: BLOOD SPECIMENOrdering Facility: [facility] Address: [address] [place] [address] Performed By: #### 5 7021-8 ####[facility] LABCLIA [id number] [place] [address] [place] Eosinophils/100 WBC (Bld) 1.5 % Normal [facility] Comment on above: Order Comment: Speci men Type: BLOOD SPECIMENOrdering Facility: [facility] Address: [address] [place] [address] Performed By: #### 5 7021-8 ####[facility] LABCLIA [id number] [place] [address] [place] Erythrocyte distribution width (RBC) [Ratio] 12.9 % Normal 11.5-15.0 [facility] Comment on above: Order Comment: Speci men Type: BLOOD SPECIMENOrdering Facility: [facility] Address: [address] [place] [address] Performed By: #### 5 7021-8 ####[facility] LABCLIA [id number] [place] [address] [place] Hematocrit (Bld) [Volume fraction] 39.0 % Normal 36.0-46.0 [facility] Comment on above: Order Comment: Speci men Type: BLOOD SPECIMENOrdering Facility: [facility] Address: [address] [place] [address] Performed By: #### 5 7021-8 ####[facility] LABCLIA [id number] [place] [address] [place] Hemoglobin (Bld) [Mass/Vol] 12.3 g/dL Normal 11.5-15.5 [facility] Comment on above: Order Comment: Speci men Type: BLOOD SPECIMENOrdering Facility: [facility] Address: [address] [place] [address] Performed By: #### 5 7021-8 ####[facility] LABCLIA [id number] [place] [address] [place] Immature granulocytes (Bld) [#/Vol] 10*3/uL Normal <0.10 [facility] Comment on above: Order Comment: Speci men Type: BLOOD SPECIMENOrdering Facility: [facility] Address: [address] [place] [address] Performed By: #### 5 7021-8 ####[facility] LABCLIA [id number] [place] [address] [place] Immature granulocytes/100 WBC (Bld) 0.3 % Normal [facility] Comment on above: Order Comment: Speci men Type: BLOOD SPECIMENOrdering Facility: [facility] Address: [address] [place] [address] Performed By: #### 5 7021-8 ####[facility] LABCLIA [id number] [place] [address] [place] Lymphocytes (Bld) [#/Vol] 1.88 10*3/uL Normal 1.00-4.00 [facility] Comment on above: Order Comment: Speci men Type: BLOOD SPECIMENOrdering Facility: [facility] Address: [address] [place] [address] Performed By: #### 5 7021-8 ####[facility] LABCLIA [id number] [place] [address] [place] Lymphocytes/100 WBC (Bld) 28.6 % Normal [facility] Comment on above: Order Comment: Speci men Type: BLOOD SPECIMENOrdering Facility: [facility] Address: [address] [place] [address] Performed By: #### 5 7021-8 ####[facility] LABCLIA [id number] [place] [address] [place] MCH (RBC) [Entitic mass] 28.7 pg Normal 26.0-34.0 [facility] Comment on above: Order Comment: Speci men Type: BLOOD SPECIMENOrdering Facility: [facility] Address: [address] [place] [address] Performed By: #### 5 7021-8 ####[facility] LABCLIA [id number] [place] [address] [place] MCHC (RBC) [Mass/Vol] 31.5 g/dL Normal 30.5-36.0 [facility] Comment on above: Order Comment: Speci men Type: BLOOD SPECIMENOrdering Facility: [facility] Address: [address] [place] [address] Performed By: #### 5 7021-8 ####[facility] LABCLIA [id number] [place] [address] [place] MCV (RBC) [Entitic vol] 91.1 fL Normal 80.0-100.0 [facility] Comment on above: Order Comment: Speci men Type: BLOOD SPECIMENOrdering Facility: [facility] Address: [address] [place] [address] Performed By: #### 5 7021-8 ####[facility] LABCLIA [id number] [place] [address] [place] Monocytes (Bld) [#/Vol] 0.32 10*3/uL Normal <0.87 [facility] Comment on above: Order Comment: Speci men Type: BLOOD SPECIMENOrdering Facility: [facility] Address: [address] [place] [address] Performed By: #### 5 7021-8 ####[facility] LABCLIA [id number] [place] [address] [place] Monocytes/100 WBC (Bld) 4.9 % Normal [facility] Comment on above: Order Comment: Speci men Type: BLOOD SPECIMENOrdering Facility: [facility] Address: [address] [place] [address] Performed By: #### 5 7021-8 ####[facility] LABCLIA [id number] [place] [address] [place] Neutrophils (Bld) [#/Vol] 4.23 10*3/uL Normal 1.45-7.50 [facility] Comment on above: Order Comment: Speci men Type: BLOOD SPECIMENOrdering Facility: [facility] Address: [address] [place] [address] Performed By: #### 5 7021-8 ####[facility] LABCLIA [id number] [place] [address] [place] Neutrophils/100 WBC (Bld) 64.2 % Normal [facility] Comment on above: Order Comment: Speci men Type: BLOOD SPECIMENOrdering Facility: [facility] Address: [address] [place] [address] Performed By: #### 5 7021-8 ####[facility] LABCLIA [id number] [place] [address] [place] Nucleated RBC (Bld) [#/Vol] 10*3/uL Normal <0.01 [facility] Comment on above: Order Comment: Speci men Type: BLOOD SPECIMENOrdering Facility: [facility] Address: [address] [place] [address] Performed By: #### 5 7021-8 ####[facility] LABCLIA [id number] [place] [address] [place] Nucleated RBC/100 WBC (Bld) [Ratio] 0.0 /100 WBC Normal [facility] Comment on above: Order Comment: Speci men Type: BLOOD SPECIMENOrdering Facility: [facility] Address: [address] [place] [address] Performed By: #### 5 7021-8 ####[facility] LABIA [id number] [place] [address] [place] Platelet mean volume (Bld) [Entitic vol] 11.6 fL Normal 9.0-12.7 [facility] Comment on above: Order Comment: Speci men Type: BLOOD SPECIMENOrdering Facility: [facility] Address: [address] [place] [address] Performed By: #### 5 7021-8 ####[facility] LABIA [id number] [place] [address] [place] Platelets (Bld) [#/Vol] 209 10*3/uL Normal 150-400 [facility] Comment on above: Order Comment: Speci men Type: BLOOD SPECIMENOrdering Facility: [facility] Address: [address] [place] [address] Result Comment: No c lot detected. Performed By: #### 5 7021-8 ####[facility] LABCLIA [id number] [place] [address] [place] RBC (Bld) [#/Vol] 4.28 10*6/uL Normal 3.90-5.20 [facility] Comment on above: Order Comment: Speci men Type: BLOOD SPECIMENOrdering Facility: [facility] Address: [address] [place] [address] Performed By: #### 5 7021-8 ####[facility] LABCLIA [id number] [place] [address] [place] WBC (Bld) [#/Vol] 6.58 10*3/uL Normal 3.70-11.00 [facility] Comment on above: Order Comment: Speci men Type: BLOOD SPECIMENOrdering Facility: [facility] Address: [address] [place] [address] Performed By: #### 5 7021-8 ####[facility] LABCLIA [id number] [address] [place] CNOVon 11-11-2023 [facility]S [facility]AN[facility] ([id number]) 1965 F FNS Date Time Provider Department 11/11/23 10:00 AM SAUMYA VARGAS [facility] During your visit today, we recorded the following information about you: Pulse Respiration Blood pressure Weight 66/minute 16/minute 120/72 96.6 kg Saumya Vargas APRN.EPITAXIAL REACTOR TECHNICIAN 11/11/2023 2:38 PM Signed This is a [...] pen Inje (more content not included)... Normal [facility] Comprehensive metabolic 2000 panelon 11-11-2023 Albumin [Mass/Vol] 4.2 g/dL Normal 3.9-4.[address] [facility] Comment on above: Order Comment: Speci men Type: BLOOD SPECIMENOrdering Facility: [facility] Address: [address] [place] [address] Performed By: #### 2 4323-8, 51827-9, 12170-3, 3016-3 ####[facility] LABCLIA [id number] [place] [address] [place] ALP [Catalytic activity/Vol] 40 U/L Normal 34-123 [facility] Comment on above: Order Comment: Speci men Type: BLOOD SPECIMENOrdering Facility: [facility] Address: [address] [place] [address] Performed By: #### 2 4323-8, 38239-1, 26893-4, 3016-3 ####[facility] LABCLIA [id number] [place] [address] [place] ALT [Catalytic activity/Vol] 12 U/L Normal 7-38 [facility] Comment on above: Order Comment: Speci men Type: BLOOD SPECIMENOrdering Facility: [facility] Address: [address] [place] [address] Performed By: #### 2 4323-8, 89891-8, 83284-4, 3016-3 ####[facility] LABCLIA [id number] [place] [address] [place] Anion gap [Moles/Vol] 12 mmol/L Normal 8-15 [facility] Comment on above: Order Comment: Speci men Type: BLOOD SPECIMENOrdering Facility: [facility] Address: [address] [place] [address] Performed By: #### 2 4323-8, 32436-5, 83496-0, 3016-3 ####[facility] LABCLIA [id number] [place] [address] [place] AST [Catalytic activity/Vol] 22 U/L Normal 13-35 [facility] Comment on above: Order Comment: Speci men Type: BLOOD SPECIMENOrdering Facility: [facility] Address: [address] [place] [address] Performed By: #### 2 4323-8, 35748-2, 00762-1, 3016-3 ####[facility] LABCLIA [id number] [address] [address] [place] Bilirubin [Mass/Vol] 0.4 mg/dL Normal 0.2-1.3 [facility] Comment on above: Order Comment: Speci men Type: BLOOD SPECIMENOrdering Facility: [facility] Address: [address] [place] [address] Performed By: #### 2 4323-8, 62450-5, 71290-9, 3016-3 ####[facility] LABCLIA [id number] [place] [address] [place] Calcium [Mass/Vol] 9.7 mg/dL Normal 8.5-10.[address] [facility] Comment on above: Order Comment: Speci men Type: BLOOD SPECIMENOrdering Facility: [facility] Address: [address] [place] [address] Performed By: #### 2 4323-8, 27891-6, 01036-6, 3016-3 ####[facility] LABCLIA [id number] [place] [address] [place] Chloride [Moles/Vol] 105 mmol/L Normal 98-107 [facility] Comment on above: Order Comment: Speci men Type: BLOOD SPECIMENOrdering Facility: [facility] Address: [address] [place] [address] Performed By: #### 2 4323-8, 14024-7, 97009-6, 3016-3 ####[facility] LABCLIA [id number] [place] [address] [place] CO2 [Moles/Vol] 23 mmol/L Normal 22-30 [facility] Comment on above: Order Comment: Speci men Type: BLOOD SPECIMENOrdering Facility: [facility] Address: [address] [place], [place] [address] Performed By: #### 2 4323-8, 18495-2, 37807-7, 3016-3 ####[facility] LABIA [id number] [place] [address] [place] Creatinine [Mass/Vol] 1.13 mg/dL High 0.58-0.96 [facility] Comment on above: Order Comment: Henry men Type: BLOOD SPECIMENOrdering Facility: [facility] Address: [address] [place] [address] Performed By: #### 2 4323-8, 75642-4, 77762-9, 6-3 ####[facility] [id number] [place] [address] [place] Creatinine and Glomerular filtration rate.predicted panel (S/P/Bld) 56 mL/min/1.73m??? Low >=60 [facility] Comment on above: Order Comment: Henry johnson Type: BLOOD SPECIMENOrdering Facility: [facility] Address: [address] [place] [address] Result Comment: Devika mated Glomerular Filtration Rate [...] actual GFR. Performed By: #### 2 4323-8, 45393-7, 03078-3, 6-3 ####[facility] [id number] [place] [id number] [place] Glucose [Mass/Vol] 89 mg/dL Normal 74-[address] [facility] Comment on above: Order Comment: Henry johnson Type: BLOOD SPECIMENOrdering Facility: [facility] Address: [address] [place] [address] Result Comment: The English Diabetes Association (ADA) provides guidance for cutoff [...] Standards of Medical Care in Diabetes 2016, English Diabetes Association. Diabetes Care. 2016.39(Suppl 1). Performed By: #### 2 4323-8, 87723-7, 60276-2, 3016-3 ####[facility] LABCLIA [id number] [place] [address] [place] Potassium [Moles/Vol] 5.1 mmol/L Normal 3.7-5.1 [facility] Comment on above: Order Comment: Speci men Type: BLOOD SPECIMENOrdering Facility: [facility] Address: [address] [place] [address] Performed By: #### 2 4323-8, 51561-0, 34064-9, 3016-3 ####[facility] LABIA [id number] [place] [address] [place] Protein [Mass/Vol] 6.9 g/dL Normal 6.3-8.[address] [facility] Comment on above: Order Comment: Speci men Type: BLOOD SPECIMENOrdering Facility: [facility] Address: [address] [place] [address] Performed By: #### 2 4323-8, 09386-1, 93541-2, 3016-3 ####[facility] LABCLIA [id number] [place] [address] [place] Sodium [Moles/Vol] 140 mmol/L Normal 136-[address] [facility] Comment on above: Order Comment: Speci men Type: BLOOD SPECIMENOrdering Facility: [facility] Address: [address] [place] [address] Performed By: #### 2 4323-8, 43826-7, 39771-5, 3016-3 ####[facility] LABCLIA [id number] [place] [address] [place] Urea nitrogen [Mass/Vol] 18 mg/dL Normal - [facility] Comment on above: Order Comment: Speci men Type: BLOOD SPECIMENOrdering Facility: [facility] Address: [address] [place] [address] Performed By: #### 2 4323-8, 76455-1, 43739-6, 3016-3 ####[facility] LABIA [id number] [place] [address] [place] Folate SerPl-mCncon 11-11-19 24 Folate [Mass/Vol] 18.5 ng/mL Normal >4.7 [facility] Comment on above: Order Comment: Speci men Type: BLOOD SPECIMENOrdering Facility: [facility] Address: [address] [place] [address] Performed By: #### 2 284-8, 2132-9 ####[facility] LABCLIA [id number] [place] [address] [place] HbA1c (Bld)on 11-11-2023 Average glucose Estimated from glycated hemoglobin (Bld) [Mass/Vol] 108 mg/dL Normal [facility] Comment on above: Order Comment: Speci men Type: BLOOD SPECIMENOrdering Facility: [facility] Address: [address] [place] [address] Result Comment: eAG: (Estimated average glucose) is a calculated value from HgbA1c and is specialty sales representative of the average blood glucose level in the last 2-3 month period. Performed By: #### 5 5454-3 ####[facility] LABCLIA [id number] [place] [address] [place] HbA1c (Bld) [Mass fraction] 5.4 % Normal 4.3-5.6 [facility] Comment on above: Order Comment: Speci men Type: BLOOD SPECIMENOrdering Facility: [facility] Address: [address] [place] [address] Result Comment: Griffin ican Diabetes Association guidelines indicate that patients with HgbA1c in the range 5.7-6.4% are at increased risk for development of diabetes, and intervention by lifestyle modification may be beneficial. HgbA1c greater or equal to 6.5% is considered diagnostic of diabetes. Performed By: #### 5 5454-3 ####[facility] LABCLIA [id number] [place] [id number] [place] Iron and Iron binding capaci ty panelon 11-11-2023 Iron [Mass/Vol] 82 ug/dL Normal 41-186 [facility] Comment on above: Order Comment: Speci men Type: BLOOD SPECIMENOrdering Facility: [facility] Address: [address] [place] [address] Performed By: #### 2 4323-8, 39115-5, 60418-9, 3016-3 ####[facility] LABIA [id number] [place] [id number] [place] Iron binding capacity [Mass/Vol] 264 ug/dL Normal 232-386 [facility] Comment on above: Order Comment: Speci men Type: BLOOD SPECIMENOrdering Facility: [facility] Address: [address] [place] [address] Performed By: #### 2 4323-8, 43534-1, 10542-9, 3016-3 ####[facility] LABIA [id number] [address] [address] [place] Iron/TIBC [Molar ratio] 31.1 % Normal 15.0-57.0 [facility] Comment on above: Order Comment: Speci men Type: BLOOD SPECIMENOrdering Facility: [facility] Address: [address] [place] [address] Performed By: #### 2 4323-8, 25063-4, 13065-3, 6-3 ####[facility] LABCLIA [id number] [address] [address] [place] Lipid 1996 panelon 4 Cholesterol [Mass/Vol] 181 mg/dL Normal <200 [facility] Comment on above: Order Comment: Speci men Type: BLOOD SPECIMENOrdering Facility: [facility] Address: [address] [place] [address] Result Comment: <200 mg/dL, Desirable 200-239 mg/dL, Borderline high >239 mg/dL, High Performed By: #### 2 4323-8, 16738-5, 65724-3, 6-3 ####[facility] LABCLIA [id number] [place] [address] [place] Cholesterol in HDL [Mass/Vol] 41 mg/dL Normal >39 [facility] Comment on above: Order Comment: Speci men Type: BLOOD SPECIMENOrdering Facility: [facility] Address: [address] [place] [address] Result Comment: 40-5 9 mg/dL, Acceptable >59 mg/dL, High: Negative risk factor for coronary heart disease <40 mg/dL, Low: Positive risk factor for coronary heart disease Performed By: #### 2 4323-8, 57303-6, 15584-0, 3016-3 ####[facility] LABCLIA [id number] [place] [id number] [place] Cholesterol in LDL [Mass/Vol] 97 mg/dL Normal <100 [facility] Comment on above: Order Comment: Speci men Type: BLOOD SPECIMENOrdering Facility: [facility] Address: [address] [place] [address] Result Comment: <100 mg/dL, Optimal 100-129 mg/dL, Near optimal/above optimal 130-159 mg/dL, Borderline high 160-189 mg/dL, High >189 mg/dL, Very high Secondary prevention optimal LDL Cholesterol levels are recommended to be < 70 mg/dL Performed By: #### 2 4323-8, 47197-4, 23308-3, 3016-3 ####[facility] LABCLIA [id number] [place] [address] [place] Cholesterol in LDL/Cholesterol in HDL [Mass ratio] 2.37 {ratio} Normal <2.54 [facility] Comment on above: Order Comment: Speci men Type: BLOOD SPECIMENOrdering Facility: [facility] Address: [address] [place] [address] Result Comment: Mk goldberg: 1. National Cholesterol Education Program ATP III Guideline At-A-Glance Quick Desk Reference: National Heart, Lung, and Blood [place]. National Institutes of Health. 2001: NIH Publication No. 01-3305. 2. An International Atherosclerosis Society position paper: global recommendations for the management of dyslipidemia: executive summary, Atherosclerosis. 2014: 232(2):410-413. Performed By: #### 2 4323-8, 99503-2, 65073-3, 3016-3 ####[facility] LABCLIA [id number] [place] [address] [place] Cholesterol in VLDL [Mass/Vol] 43 mg/dL High <30 [facility] Comment on above: Order Comment: Speci men Type: BLOOD SPECIMENOrdering Facility: [facility] Address: [address] [place] [address] Performed By: #### 2 4323-8, 14213-3, 97965-9, 3016-3 ####[facility] LABCLIA [id number] [place] [address] [place] Cholesterol non HDL [Mass/Vol] 140 mg/dL High <130 [facility] Comment on above: Order Comment: Speci men Type: BLOOD SPECIMENOrdering Facility: [facility] Address: [address] [place] [address] Result Comment: <130 mg/dL, Optimal 130-159 mg/dL, Near optimal/above optimal 160-189 mg/dL, Borderline high 190-219 mg/dL, High >219 mg/dL, Very high Secondary prevention optimal non HDL Cholesterol levels are recommended to be <100 mg/dL Performed By: #### 2 4323-8, 98437-1, 65659-2, 6-3 ####[facility] LABCLIA [id number] [place] [address] [place] Cholesterol.total/C holesterol in HDL [Mass ratio] 4.41 {ratio} Normal <5.10 [facility] Comment on above: Order Comment: Speci men Type: BLOOD SPECIMENOrdering Facility: [facility] Address: [address] [place] [address] Performed By: #### 2 4323-8, 24228-0, 66214-5, 3015-3 ####[facility] LABIA [id number] [place] [address] [place] FASTING TIME 12 hrs Normal [facility] Comment on above: Order Comment: Speci men Type: BLOOD SPECIMENOrdering Facility: [facility] Address: [address] [place] [address] Performed By: #### 2 4323-8, 14191-0, 33597-7, 6-3 ####[facility] LABIA [id number] [place] [address] [place] Triglyceride [Mass/Vol] 217 mg/dL High <150 [facility] Comment on above: Order Comment: Speci men Type: BLOOD SPECIMENOrdering Facility: [facility] Address: [address] [place] [address] Result Comment: <150 mg/dL, Normal 150-199 mg/dL, Borderline high 200-499 mg/dL, High >499 mg/dL, Very high Performed By: #### 2 4323-8, 06197-0, 58399-5, 3016-3 ####[facility] LABCLIA [id number] [place] [id number] [place] TSH SerPl-aCncon 11-11-2023 TSH Qn 0.800 m[IU]/L Normal 0.270-4.200 [facility] Comment on above: Order Comment: Speci men Type: BLOOD SPECIMENOrdering Facility: [facility] Address: [address] [place] [address] Performed By: #### 2 4323-8, 56193-1, 22784-8, 3016-3 ####[facility] LABIA [id number] [place] [address] [place] VITAMIN B1 (THIAMINE), WHOLE BLOODon 11-11-2023 Thiamine (Bld) [Moles/Vol] 111.4 nmol/L Normal 84.3-213.3 [facility] Comment on above: Order Comment: Speci men Type: BLOOD SPECIMENOrdering Facility: [facility] Address: [address] [place] [address] Result Comment: This assay measures the concentration of thiamine diphosphate (TDP), the primary active form of vitamin B1. Approximately 90 percent of vitamin B1 present in whole blood is TDP. Thiamine and thiamine monophosphate, which comprise the remaining 10 percent, are not measured. This test was developed and its performance characteristics determined by [facility] Pathology and Laboratory Medicine [place] ([facility]). It has not been cleared or approved by the FDA. -[facility] is regulated under CLIA as qualified to perform high-complexity testing. This test is used for clinical purposes. It should not be regarded as investigational or for research. Performed By: #### B 1WB ####[facility] LABIA [id number] [place] [address] [place] Vit B12 SerPl-mCncon 024 Cobalamin (Vitamin B12) [Mass/Vol] 772 pg/mL Normal 232-1245 [facility] Comment on above: Order Comment: Speci men Type: BLOOD SPECIMENOrdering Facility: [facility] Address: [address] [place] [address] Performed By: #### 2 284-8, 2132-9 ####[facility] LABIA [id number] [place] [address] [facility] CNOVon 07-24-2023 CNOV Office Visit (FAMPWS ) INÉS SHANKS ([id number]) 1965 F [facility] Date Time Provider Department 07/24/23 10:00 AM [facility] During your visit today, we recorded the following information about you: Pulse Blood pressure Weight Height 64/minute 130/72 112 kg 1.702 m Santhosh Holden MD 07/24/2023 10:38 AM Signed Patient presents with: Sleep Apnea HPI: Patient presents today for office visit for urgd-nt-hnxy for replacement CPAP machine. KRZYSZTOF: Has not [...] too cl (more content not included)... Normal [facility] CNOVon 07-03-2023 CNOV Office Visit ([facility] ) INÉS SHANKS ([id number]) 1965 F S Date Time Provider Department 07/03/23 3:30 PM [facility] During your visit today, we recorded the [...] blood suga (more content not included)... Normal [facility] XR Chest PA and Lateralon IMPRESSION: No acute radiographic abnormality. Rn Case Manager: MEERA Transcribe Date/Time: Jun 02 2023 3:38P Dictated by : CHANTELL LIZ MD This examination was interpreted and the report reviewed and electronically signed by: CHANTELL LIZ MD on Jun 02 2023 3:38PM [facility] DIVISION OF RADIOLOGY * * *Final Report* [...] the thoracic spine. DIVISION OF RADIOLOGY Provider, [facility] - 06/02/2023 * * *Final [...] spine. IMPRESSION IMPRESSION: No acute radiographic abnormality. Rn Case Manager: MEERA Transcribe Date/Time: Jun 02 2023 3:38P Dictated by : CHANTELL LIZ MD This examination was interpreted and the report reviewed and electronically signed by: CHANTELL LIZ MD on Jun 02 2023 3:38PM EST [facility] Radiology Study observation (narrative) [facility] XR Chest PA and LateralOrder ed By: Ccf Provider on 06-02-2023 [facility] ANES POSTPROC EVALon 023 ANES POSTPROC EVAL HNO ID: [id number] Author: Casandra Botello APRN.CHEMISTRY QUALITY CONTROL TECHNICIAN Service: Anesthesiology Author Type: Nurse Floor Associate Type: Anesthesia Postprocedure Evaluation Filed: 03/12/2023 8:48 [...] Scheduled Providers: Susanna Schneider MD; Casandra Botello APRN.CHEMISTRY QUALITY CONTROL TECHNICIAN Responsible Provider: Casandra Botello APRN.CHEMISTRY QUALITY CONTROL TECHNICIAN Anesthesia Type: MAC ASA Status: 3 Anesthesia [...] Anesthesia Observations No Documentation SIGNATURE: Casandra Botello APRN.CHEMISTRY QUALITY CONTROL TECHNICIAN PATIENT NAME: Inés Shanks DATE: March 12, 2023 TIME: 8:48 AM CSN: [id number] Normal [facility] ANES PRE-OPon 03-12-2023 [facility] PRE-OP HNO ID: [id number] Author: Casandra Botello APRN.CHEMISTRY QUALITY CONTROL TECHNICIAN Service: Anesthesiology Author Type: Nurse Floor Associate Type: Anesthesia Preprocedure Evaluation Filed: 03/12/2023 7:25 AM Note Text: ANESTHESIOLOGY DAY OF SURGERY NOTE : 1965 Procedure Information Date/Time: 03/12/23 0800 Scheduled providers: Susanna Schneider MD; Casandra Botello APRN.CHEMISTRY QUALITY CONTROL TECHNICIAN Procedures: EGD DIAGNOSTIC COLONOSCOPY SCREENING Location: LD [...] and consent discussed: yes. Patient / Responsible Republican agrees to proceed: yes Patient / Surrogate [...] mg tablet T (more content not included)... [facility] BRIEF OP NOTon 03-12-2023 BRIEF OP NOT HNO ID: [id number] Author: Susanna Schneider MD Service: General Surgery Author Type: Physician Type: Brief Op Note Filed: 03/12/2023 8:46 AM Note Text: BRIEF OPERATIVE NOTE SURGERY DATE: 03/12/2023 Incision/Procedure Start Time: 8:15 cecal intubation time: 8:32 Incision Close/Procedure End Time: 8:39 Surgeon(s)/Proceduralist(s) and Superintendent Sales(s): love Procedures: EGD with biopsies Colonoscopy with [...] March 12, 2023 TIME: 8:41 AM Acct: [id number] [facility] HISTORY PHYSICALon HISTORY PHYSICAL HNO ID: [id number] Author: Susanna Schneider MD Service: General Surgery [...] 500 mg t (more content not included)... [facility] NURSING PROGon 03-12-2023 NURSING PROG HNO ID: [id number] Author: Pricilla Bower RN Service: Nursing Author [...] issues. Patient verbalized understanding of instructions given. [facility] NURSING PROG HNO ID: [id number] Author: Manda Stanley RN Service: Nursing Author Type: Registered Nurse Type: Nursing Progress Note Filed: 03/12/2023 9:20 AM Note Text: Pt stands at bedside with 2 nurses at bedside. Pt advised me that she normally is unsteady and uses a walker at home. Pt denies dizziness or pain. Discharge instructions reviewed with daughter. [facility] NURSING PROG HNO ID: [id number] Author: Pricilla Bower RN Service: Nursing Author Type: Registered Nurse Type: Nursing Progress Note Filed: 03/12/2023 7:56 AM Note Text: Patient education completed with patient. Patient verbalizes understanding of instructions given. Patient ready for procedure. [facility] OPERATIVE NOon 03-12-2023 OPERATIVE NO HNO ID: [id number] Author: Susanna Schneider MD Service: General Surgery Author Type: Physician Type: Operative Report Filed: 03/12/2023 6:27 PM Note Text: [facility] - Operative Report - [place] : 1965 AGE: 57. SEX: F PATIENT TYPE: O HOSP SVC: GNS LOCATION: 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 POSTOPERATIVE DIAGNOSIS: Hemorrhoids, transverse colon polyp, and suboptimal colon cleansing prep. SURGEON: Susanna Schneider MD ELECTRIC RELAY TESTER: No Additional Staff SURGERY/PROCEDURE: Esophagogastroduodenoscopy with biopsies [...] ESTIMATED BLOOD LOSS: Minimal. Susanna Schneider MD LW:[id number] Normal [facility] SURGICAL PATHOLOGYon 023 CASE REPORT Normal [facility] Comment on above: Order Comment: Speci men Type: TISSUE SPECIMEN [facility] Address: [address] [place] [address] Result Comment: Surg [facility] Pathology Report Case: [id number] Authorizing Provider: Susanna Schneider MD Collected: 03/12/2023 08:19 AM Ordering Location: LD SURGERY Received: 03/12/2023 01:21 PM Pathologist: Loretta Oleary MD Specimens: A) - ANTRUM (STOMACH) BIOPSY B) - ESOPHAGOGASTRIC JUNCTION BIOPSY C) - TRANSVERSE COLON BIOPSY Performed By: #### S #### [facility] CLIA [id number] [address] FINAL DIAGNOSIS Normal [facility] Comment on above: Order Comment: Speci men Type: TISSUE SPECIMEN [facility] Address: [address] [place] [address] Result Comment: A. A ntrum (stomach), biopsy: -- Antral type gastric mucosa with no significant histopathologic abnormalities. -- No morphologic evidence of H. pylori organisms identified on H&E sections. B. Esophagogastric junction, biopsy: -- Squamocolumnar junction with mild chronic inflammation, negative for intestinal metaplasia. C. Transverse colon polyp, polypectomy: -- Serrated polyp, favor hyperplastic polyp. Performed By: #### S #### [facility] CLIA [id number] [address] [place] [address] FINAL PERFORMING LAB Normal [facility] Comment on above: Order Comment: Speci men Type: TISSUE SPECIMEN [facility] Address: [address] [place] [address] Result Comment: Diag nostic interpretation performed at [facility], [address] [place] [address] CLIA# [id number] Garment Alteration Examiner: Jose Herr M.D. Performed By: #### S #### [facility] CLIA [id number] [address] [place] [address] GROSS DESCRIPTION Normal [facility] Comment on above: Order Comment: Speci men Type: TISSUE SPECIMEN [facility] Address: [address] [place] [address] Result Comment: A. A NTRUM (STOMACH) BIOPSY [...] entirely in C1. Gross examination performed at [facility], [address] [place] [address] CLIA#[id number] OLS March 13, 2023 9:47 AM Performed By: #### S #### [facility] CLIA [id number] [address] [place] [id number] [facility] NURSING PROGon 03-04-2023 NURSING PROG HNO ID: [id number] Author: Ayo Harrison RN Service: ? Author Type: Registered Nurse Type: Nursing Progress Note Filed: 03/04/2023 10:11 AM Note Text: Summary: Pre-op call Pre-Procedure Checklist Inés Shanks [phone] (home) 1965 57 year old Body mass [...] Problems with Anesthesia (Self or Family?) No Vamp Marker: Teofilo Saw scrap baller in the last 6 months? Yes Recent EKG/Cardiac Testing: Yes Chest pain in the last 6 months (<6 months cardiac clearance needed): Yes History of: Heart Attack/Stroke/Blood Clot?: No Shortness of Breath: Occasional Asthma: No Inhalers: No Any Outstanding Consults?: No If yes, list: Additional Notes:[facility] Office Visit (JOSSELINE ) INÉS SHANKS ([id number]) 1965 F [facility] Date Time Provider Department 02/06/23 1:00 PM FARHAT GALLARDO During your visit today, we recorded the following information about you: Pulse Blood pressure Weight Height 68/minute 118/70 117 kg 1.702 m Farhat Gallardo DO 02/06/2023 3:50 PM [facility] SECTION OF REGIONAL CARDIOLOGY [facility] OUTPATIENT VISIT DATE February 06, 2023 PRIMARY CARE PHYSICIAN: Santhosh Holden [address] [place] [address] HISTORY OF PRESENT ILLNESS: Ms. Shanks is [...] SHOULDER + (more content not included)... Normal [facility] Ventricular Rate : 6 8 BPM Atrial Rate : 68 BPM P-R Interval : 178 ms QRS Duration : 94 ms Q-T Interval : 436 ms QTC Calculation(Bazett) : 463 ms Calculated P Kinsman : 14 degrees Calculated R Kinsman : -1 degrees Calculated T Kinsman : 39 degrees NORMAL SINUS RHYTHM NONSPECIFIC T WAVE ABNORMALITY PROLONGED QT ABNORMAL ECG WHEN COMPARED WITH ECG OF 19-MAY-2018 10:48, T WAVE INVERSION NO LONGER EVIDENT IN INFERIOR LEADS Confirmed by MD GALLARDO GREGORY () on 03/06/2023 4:18:05 PM Also confirmed by MD GALLARDO GREGORY (), editor farm journal BETI SANTIAGO ([id number]) on 01/05/2024 9:09:53 AM NAME : INÉS SHANKS PID : [id number] : 1965 Gender : Female Race : [...] Also confirmed by MD GALLARDO GREGORY (), editor farm journal BETI SANTIAGO ([id number]) on 01/05/2024 9:09:53 AM Test Reason : Location : 659 : [facility] Overread By : MD GALLARDO GREGORY Edited By : BETI SANTIAGO Referred By : , Acquired by : , [facility] Comprehensive metabolic 2000 panelon 12-06-2022 Albumin [Mass/Vol] 4.5 g/dL 3.9 - 4.9 g/dL [facility] ALP [Catalytic activity/Vol] 76 U/L 34 - 123 U/L [facility] ALT [Catalytic activity/Vol] 20 U/L 7 - 38 U/L [facility] Anion gap [Moles/Vol] 17 mmol/L 9 - 18 mmol/L [facility] AST [Catalytic activity/Vol] 34 U/L 13 - 35 U/L [facility] Bilirubin [Mass/Vol] 0.3 mg/dL 0.2 - 1.3 mg/dL [facility] Calcium [Mass/Vol] 9.9 mg/dL 8.5 - 10. 2 mg/dL [facility] Chloride [Moles/Vol] 102 mmol/L 97 - 105 mmol/L [facility] CO2 [Moles/Vol] 21 mmol/L Low 22 - 30 mmol/L [facility] Creatinine [Mass/Vol] 0.84 mg/dL 0.58 - 0.96 mg/dL [facility] Estimated Glomerular Filtration Rate 80 mL/min/1.73m >=60 mL/min/1.73m [facility] Glucose [Mass/Vol] 112 mg/dL High 74 - 99 mg/dL [facility] Potassium [Moles/Vol] 5.0 mmol/L 3.7 - 5.1 mmol/L [facility] Protein [Mass/Vol] 7.2 g/dL 6.3 - 8.0 g/dL [facility] Sodium [Moles/Vol] 140 mmol/L 136 - 144 mmol/L [facility] Urea nitrogen [Mass/Vol] 11 mg/dL 7 - 21 mg/dL [facility] FOLATE SERUMon 12-06-2022 Folate [Mass/Vol] 11.4 ng/mL >4.7 ng/mL [facility] HIV 1+2 Ab IA Qlon HIV 1 and [address] [facility] HIV 1+2 Ab+HIV1 p24 Ag IA Ql Non-Reactive Nonreactive [facility] HIV immunoassay testing algorithm interpretation (S/P/Bld) [Interp] [facility] VITAMIN B12 BLOODon 12-07-19 Cobalamin (Vitamin B12) [Mass/Vol] 478 pg/mL 232 - 1,245 pg/mL [facility] CBC W Auto Differential pane l (Bld)on 12-05-2022 Basophils (Bld) [#/Vol] 0.04 10*3/uL <0.11 k/uL [facility] Basophils/100 WBC (Bld) 0.5 % [facility] Differential cell count method Nom (Bld) Auto [facility] Eosinophils (Bld) [#/Vol] 0.03 10*3/uL <0.46 k/uL [facility] Eosinophils/100 WBC (Bld) 0.4 % [facility] Erythrocyte distribution width (RBC) [Ratio] 13.6 % 11.5 - 15.0 % [facility] Hematocrit (Bld) [Volume fraction] 43.0 % 36.0 - 46.0 % [facility] Hemoglobin (Bld) [Mass/Vol] 13.2 g/dL 11.5 - 15.5 g/dL [facility] Immature granulocytes (Bld) [#/Vol] 0.05 10*3/uL <0.10 k/uL [facility] Immature granulocytes/100 WBC (Bld) 0.7 % [facility] Lymphocytes (Bld) [#/Vol] 2.77 10*3/uL 1.00 - 4.00 k/uL [facility] Lymphocytes/100 WBC (Bld) 37.1 % [facility] MCH (RBC) [Entitic mass] 28.0 pg 26.0 - 34.[address] [facility] MCHC (RBC) [Mass/Vol] 30.7 g/dL 30.5 - 36.0 g/dL [facility] MCV (RBC) [Entitic vol] 91.3 fL 80.0 - 100.[address] [facility] Monocytes (Bld) [#/Vol] 0.31 10*3/uL <0.87 k/uL [facility] Monocytes/100 WBC (Bld) 4.2 % [facility] Neutrophils (Bld) [#/Vol] 4.26 10*3/uL 1.45 - 7.50 k/uL [facility] Neutrophils/100 WBC (Bld) 57.1 % [facility] Nucleated RBC (Bld) [#/Vol] <0.01 k/uL [facility] Nucleated RBC/100 WBC (Bld) [Ratio] 0.0 /[address] [facility] Platelet mean volume (Bld) [Entitic vol] 10.2 fL 9.0 - 12.[address] [facility] Platelets (Bld) [#/Vol] 208 10*3/uL 150 - 400 k/uL [facility] RBC (Bld) [#/Vol] 4.71 10*6/uL 3.90 - 5.2 0 m/uL [facility] WBC (Bld) [#/Vol] 7.46 10*3/uL 3.70 - 11. 00 k/uL [facility] XR FOOT GENERAL 3V AP/LAT/OB L RIGHTon 10-15-2022 [facility] JESUS SCREENINGon 06-06-2022 [facility] XR Finger - right AP and Lat eral and obliqueon 05-30-2022 IMPRESSION: No acute radiographic abnormalities seen in the fourth digit. Rn Case Manager: [facility]SC[facility] Transcribe Date/Time: May 30 2022 5:11P Dictated by : MORGAN CASTILLO MD This examination was interpreted and the report reviewed and electronically signed by: MORGAN CASTILLO MD on May 30 2022 5:13PM [facility] DIVISION OF RADIOLOGY * * *Final Report* [...] soft tissue swelling. DIVISION OF RADIOLOGY Provider, [place] [facility] - 05/30/2022 * * *Final Report* * [...] radiographic abnormalities seen in the fourth digit. Rn Case Manager: [facility] Transcribe Date/Time: May 30 2022 5:11P Dictated by : MORGAN CASTILLO MD This examination was interpreted and the report reviewed and electronically signed by: MORGAN CASTILLO MD on May 30 2022 5:13PM EST [facility] XR Finger - right AP and Lat eral and obliqueOrdered By: Ccf Provider on 05-30-2022 [facility] XR Finger - right AP and Lat eral and obliqueon 05-29-2022 Radiology Study observation (narrative) [facility] XR FOOT GENERAL 3V AP/LAT/OB L LEFTon 01-17-2022 [facility] XR FOOT GENERAL 3V AP/LAT/OB L BILATERALon 08-09-2021 [facility] XR CHEST 2V FRONTAL/LATon [facility] XR Chest PA and Lateralon IMPRESSION: No acute radiographic abnormality. Rn Case Manager: [facility] Transcribe Date/Time: Aug 05 2021 9:33A Dictated [...] _USE_DIVIS ION OF RADIOLOGY Provider, [facility] - 08/05/2021 * * *Final Report* * [...] spine. IMPRESSION IMPRESSION: No acute radiographic abnormality. Rn Case Manager: MEERA Transcribe Date/Time: Aug 05 2021 9:33A Dictated by : CHANTELL LIZ MD This examination was interpreted and the report reviewed and electronically signed by: CHANTELL LIZ MD on Aug 05 2021 9:34AM EST [facility] Radiology Study observation (narrative) [facility] XR Chest PA and LateralOrder ed By: Cc Provider on 08-05-2021 [facility] XR Foot - right AP and Later al and obliqueon 02-24-2020 IMPRESSION: Healing fracture of the second proximal phalanx. Rn Case Manager: MEERA Transcribe Date/Time: Feb 24 2020 4:46P Dictated by : CHANTELL LIZ MD This examination was interpreted and the report reviewed and electronically signed by: CHANTELL LIZ MD on Feb 24 2020 5:00PM [facility] DIVISION OF RADIOLOGY * * *Final Report* [...] Plantar calcaneal enthesophyte. DIVISION OF RADIOLOGY Provider, [facility] - 02/24/2020 * * *Final Report* * [...] Healing fracture of the second proximal phalanx. Rn Case Manager: [facility] Transcribe Date/Time: Feb 24 2020 4:46P Dictated by : CHANTELL LIZ MD This examination was interpreted and the report reviewed and electronically signed by: CHANTELL LIZ MD on Feb 24 2020 5:00PM EST [facility] Radiology Study observation (narrative) [facility] XR Foot - right AP and Later al and obliqueOrdered By: Ccf Provider on 02-24-2020 [facility] Vital Signs Date Time Vital Sign Value Performing Clinician Facility 08-29-2024 12:07-0400 Body temperature 98.3 [degF] Dr. Santhosh Holden MD Work Phone: [facility] 08-29-2024 12:07-0400 Diastolic blood pressure 85 mm[Hg] Dr. Santhosh Holden MD Work Phone: 0(593)120-402565 [place] [address] 08-29-2024 12:07-0400 Heart rate 73 /min Dr. Santhosh Holden MD Work Phone: 5(026)303-416365 [place] [address] 08-29-2024 12:07-0400 Respiratory rate 16 /min Dr. Santhosh Holden MD Work Phone: 7(390)295-249764 [place] [address] 08-29-2024 12:07-0400 SaO2% (BldA) [Mass fraction] 100 % Dr. Santhosh Holden MD Work Phone: 9(296)060-815764 [place] [address] 08-29-2024 12:07-0400 Systolic blood pressure 134 mm[Hg] Dr. Santhosh Holden MD Work Phone: 8(305)901-374864 [place] [address] 08-29-2024 10:00-0400 Body mass index (BMI) [Ratio] 25.2 kg/m2 Dr. Santhosh Holden MD Work Phone: 1(080)548-269265 [place] [address] 08-29-2024 10:00-0400 Body weight 75.[address] Santhosh Holden MD Work Phone: 5(178)626-725764 [place] [address] 08-29-2024 09:19-0400 Body height 172.[address] Santhosh Holden MD Work Phone: [facility] 06-22-2024 12:34-0400 Body height 170.2 cm Jovanna Prince MD Work Phone: [facility] 06-22-2024 12:34-0400 Body mass index (BMI) [Ratio] 28.26 kg/m2 Jovanna Prince MD Work Phone: [facility] 06-22-2024 12:34-0400 Body weight 81.85 kg Jovanna Prince MD Work Phone: [facility] 06-22-2024 12:34-0400 Diastolic blood pressure 82 mm[Hg] Jovanna Prince MD Work Phone: [facility] 06-22-2024 12:34-0400 Heart rate 65 /min Jovanna Prince MD Work Phone: [facility] 06-22-2024 12:34-0400 SaO2% (BldA) [Mass fraction] 98 % Jovanna Prince MD Work Phone: [facility] 06-22-2024 12:34-0400 Systolic blood pressure 128 mm[Hg] Jovanna Prince MD Work Phone: [facility] 05-20-2024 14:02-0500 Body mass index (BMI) [Ratio] 28.19 kg/m2 Santhosh Holden MD Work Phone: [facility] 05-20-2024 14:02-0500 Body weight 81.65 kg Santhosh Holden MD Work Phone: [facility] 05-20-2024 14:02-0500 Diastolic blood pressure 62 mm[Hg] Santhosh Holden MD Work Phone: [facility] 05-20-2024 14:02-0500 Heart rate 65 /min Santhosh Holden MD Work Phone: [facility] 05-20-2024 14:02-0500 SaO2% (BldA) [Mass fraction] 97 % Santhosh Holden MD Work Phone: [facility] 05-20-2024 14:02-0500 Systolic blood pressure 120 mm[Hg] Santhosh Holden MD Work Phone: [facility] 01-08-2024 11:10-0400 Body height 170.2 cm Jovanna Prince MD Work Phone: [facility] 01-08-2024 11:10-0400 Body mass index (BMI) [Ratio] 31.77 kg/m2 Jovanna Prince MD Work Phone: [facility] 01-08-2024 11:10-0400 Body weight 92 kg Jovanna Prince MD Work Phone: [facility] 01-08-2024 11:10-0400 Diastolic blood pressure 77 mm[Hg] Jovanna Prince MD Work Phone: [facility] 01-08-2024 11:10-0400 Heart rate 74 /min Jovanna Prince MD Work Phone: [facility] 01-08-2024 11:10-0400 Systolic blood pressure 122 mm[Hg] Jovanna Prince MD Work Phone: [facility] 11-11-2023 10:05-0400 Body mass index (BMI) [Ratio] 33.36 kg/m2 Saumya Hashelli [employer] OPERATOR.EPITAXIAL REACTOR TECHNICIAN Work Phone: [facility] 11-11-2023 10:05-0400 Body weight 96.62 kg Saumya Vargas [employer] OPERATOR.EPITAXIAL REACTOR TECHNICIAN Work Phone: [facility] 11-11-2023 10:05-0400 Diastolic blood pressure 72 mm[Hg] Saumya Vargas [employer] OPERATOR.EPITAXIAL REACTOR TECHNICIAN Work Phone: [facility] 11-11-2023 10:05-0400 Heart rate 66 /min Saumya Vargas [employer] OPERATOR.EPITAXIAL REACTOR TECHNICIAN Work Phone: [facility] 11-11-2023 10:05-0400 Respiratory rate 16 /min Saumya Vargas [employer] OPERATOR.EPITAXIAL REACTOR TECHNICIAN Work Phone: [facility] 11-11-2023 10:05-0400 SaO2% (BldA) [Mass fraction] 96 % Saumya Vargas [employer] OPERATOR.EPITAXIAL REACTOR TECHNICIAN Work Phone: [facility] 11-11-2023 10:05-0400 Systolic blood pressure 120 mm[Hg] Saumya Vargas [employer] OPERATOR.EPITAXIAL REACTOR TECHNICIAN Work Phone: [facility] 07-24-2023 10:15-0400 Body height 170.2 cm Santhosh Holden MD Work Phone: [facility] 07-24-2023 10:15-0400 Body mass index (BMI) [Ratio] 38.69 kg/m2 Santhosh Holden MD Work Phone: [facility] 07-24-2023 10:15-0400 Body weight 112.04 kg Santhosh Holden MD Work Phone: [facility] 07-24-2023 10:15-0400 Diastolic blood pressure 72 mm[Hg] Santhosh Holden MD Work Phone: [facility] 07-24-2023 10:15-0400 Heart rate 64 /min Santhosh Holden MD Work Phone: [facility] 07-24-2023 10:15-0400 SaO2% (BldA) [Mass fraction] 95 % Santhosh Holden MD Work Phone: [facility] 07-24-2023 10:15-0400 Systolic blood pressure 130 mm[Hg] Santhosh Holden MD Work Phone: [facility] 07-03-2023 15:10-0400 Body height 170.2 cm Jovanna Prince MD Work Phone: [facility] 07-03-2023 15:10-0400 Body mass index (BMI) [Ratio] 38.88 kg/m2 Jovanna Prince MD Work Phone: [facility] 07-03-2023 15:10-0400 Body weight 112.6 kg Jovanna Prince MD Work Phone: [facility] 07-03-2023 15:10-0400 Diastolic blood pressure 73 mm[Hg] Jovanna Prince MD Work Phone: [facility] 07-03-2023 15:10-0400 Heart rate 60 /min Jovanna Prince MD Work Phone: [facility] 07-03-2023 15:10-0400 SaO2% (BldA) [Mass fraction] 97 % Jovanna Prince MD Work Phone: [facility] 07-03-2023 15:10-0400 Systolic blood pressure 123 mm[Hg] Jovanna Prince MD Work Phone: [facility] 06-02-2023 15:07-0400 Body temperature 97 [degF] Rebecca Mireles APRN.EPITAXIAL REACTOR TECHNICIAN Work Phone: [facility] 06-02-2023 15:07-0400 Body weight 113.4 kg Rebecca Mireles APRN.EPITAXIAL REACTOR TECHNICIAN Work Phone: [facility] 06-02-2023 15:07-0400 Diastolic blood pressure 70 mm[Hg] Rebecca Mireles APRN.EPITAXIAL REACTOR TECHNICIAN Work Phone: [facility] 06-02-2023 15:07-0400 Heart rate 77 /min Rebecca Mireles APRN.EPITAXIAL REACTOR TECHNICIAN Work Phone: [facility] 06-02-2023 15:07-0400 Respiratory rate 20 /min Rebecca Mireles APRN.EPITAXIAL REACTOR TECHNICIAN Work Phone: [facility] 06-02-2023 15:07-0400 SaO2% (BldA) [Mass fraction] 95 % Rebecca Mireles APRN.EPITAXIAL REACTOR TECHNICIAN Work Phone: [facility] 06-02-2023 15:07-0400 Systolic blood pressure 110 mm[Hg] Rebecca Mireles APRN.EPITAXIAL REACTOR TECHNICIAN Work Phone: [facility] 05-08-2023 14:11-0500 Body weight 112.5 kg Radha Andersen APRN.EPITAXIAL REACTOR TECHNICIAN Work Phone: [facility] 05-08-2023 14:11-0500 Diastolic blood pressure 80 mm[Hg] Radha Andersen APRN.EPITAXIAL REACTOR TECHNICIAN Work Phone: [facility] 05-08-2023 14:11-0500 Heart rate 70 /min Radha Andersen APRN.EPITAXIAL REACTOR TECHNICIAN Work Phone: [facility] 05-08-2023 14:11-0500 SaO2% (BldA) [Mass fraction] 99 % Radha Andersen APRN.EPITAXIAL REACTOR TECHNICIAN Work Phone: [facility] 05-08-2023 14:11-0500 Systolic blood pressure 122 mm[Hg] Radha Andersen APRN.EPITAXIAL REACTOR TECHNICIAN Work Phone: [facility] 02-06-2023 12:53-0500 Body height 170.2 cm Farhat Gallardo DO Work Phone: [facility] 02-06-2023 12:53-0500 Body weight 117 kg Farhat Gallardo DO Work Phone: [facility] 02-06-2023 12:53-0500 Diastolic blood pressure 70 mm[Hg] Farhat Gallardo DO Work Phone: [facility] 02-06-2023 12:53-0500 Heart rate 68 /min Farhat Gallardo DO Work Phone: [facility] 02-06-2023 12:53-0500 SaO2% (BldA) [Mass fraction] 96 % Farhat Gallardo DO Work Phone: [facility] 02-06-2023 12:53-0500 Systolic blood pressure 118 mm[Hg] Farhat Gallardo DO Work Phone: [facility] 12-11-2022 13:25-0400 Body height 172.7 cm Sade Pacific PA-C Work Phone: [facility] 12-11-2022 13:25-0400 Body temperature 97 [degF] Sade Joey PA-C Work Phone: [facility] 12-11-2022 13:25-0400 Body weight 120.11 kg Sade Pacific PA-C Work Phone: [facility] 12-11-2022 13:25-0400 Diastolic blood pressure 76 mm[Hg] Sade Pacific PA-C Work Phone: [facility] 12-11-2022 13:25-0400 Heart rate 75 /min Sade Pacific PA-C Work Phone: [facility] 12-11-2022 13:25-0400 SaO2% (BldA) [Mass fraction] 95 % Sade Joey PA-C Work Phone: [facility] 12-11-2022 13:25-0400 Systolic blood pressure 138 mm[Hg] Sade Joey PA-C Work Phone: [facility] 12-05-2022 15:08-0400 Body weight 120.2 kg Santhosh Holden MD Work Phone: [facility] 12-05-2022 15:08-0400 Diastolic blood pressure 72 mm[Hg] Santhosh Holden MD Work Phone: [facility] 12-05-2022 15:08-0400 Heart rate 61 /min Santhosh Holden MD Work Phone: [facility] 12-05-2022 15:08-0400 SaO2% (BldA) [Mass fraction] 93 % Santhosh Holden MD Work Phone: [facility] 12-05-2022 15:08-0400 Systolic blood pressure 138 mm[Hg] Santhosh Holden MD Work Phone: [facility] 11-07-2022 11:06-0400 Body height 172.1 cm Jovanna Prince MD Work Phone: [facility] 11-07-2022 11:06-0400 Body weight 118.39 kg Jovanna Prince MD Work Phone: [facility] 11-07-2022 11:06-0400 Diastolic blood pressure 75 mm[Hg] Jovanna Prince MD Work Phone: [facility] 11-07-2022 11:06-0400 Heart rate 62 /min Jovanna Prince MD Work Phone: [facility] 11-07-2022 11:06-0400 SaO2% (BldA) [Mass fraction] 97 % Jovanna Prince MD Work Phone: [facility] 11-07-2022 11:06-0400 Systolic blood pressure 151 mm[Hg] Jovanna Prince MD Work Phone: [facility] 10-29-2022 15:27-0400 Body height 172.[address] [facility] 10-29-2022 15:27-0400 Body mass index (BMI) [Ratio] 40.3 kg/m2 [facility] 10-29-2022 15:27-0400 Body temperature 97.8 [degF] [facility] 10-29-2022 15:27-0400 Body weight 120.[address] [facility] 10-29-2022 15:27-0400 Diastolic blood pressure 98 mm[Hg] [facility] 10-29-2022 15:27-0400 Heart rate 98 /min [facility] 10-29-2022 15:27-0400 Respiratory rate 14 /min [facility] 10-29-2022 15:27-0400 SaO2% (BldA) [Mass fraction] 95 % [facility] 10-29-2022 15:27-0400 Systolic blood pressure 158 mm[Hg] [facility] 10-29-2022 14:52-0400 Body temperature 97.3 [degF] Teresa Praisler-Wood [employer] OPERATOR.EPITAXIAL REACTOR TECHNICIAN Work Phone: [facility] 10-29-2022 14:52-0400 Body weight 120.47 kg Teresa Praisler-Wood [employer] OPERATOR.EPITAXIAL REACTOR TECHNICIAN Work Phone: [facility] 10-29-2022 14:52-0400 Diastolic blood pressure 80 mm[Hg] Teresa Praisler-Wood [employer] OPERATOR.EPITAXIAL REACTOR TECHNICIAN Work Phone: [facility] 10-29-2022 14:52-0400 Heart rate 62 /min Teresa Praisler-Wood [employer] OPERATOR.EPITAXIAL REACTOR TECHNICIAN Work Phone: [facility] 10-29-2022 14:52-0400 Respiratory rate 18 /min Teresa Praisler-Wood [employer] OPERATOR.EPITAXIAL REACTOR TECHNICIAN Work Phone: [facility] 10-29-2022 14:52-0400 SaO2% (BldA) [Mass fraction] 97 % Teresa Praisler-Wood [employer] OPERATOR.EPITAXIAL REACTOR TECHNICIAN Work Phone: [facility] 10-29-2022 14:52-0400 Systolic blood pressure 146 mm[Hg] Teresa Praisler-Wood [employer] OPERATOR.EPITAXIAL REACTOR TECHNICIAN Work Phone: [facility] 05-29-2022 09:46-0500 Body weight 117.94 kg Santhosh Holden MD Work Phone: [facility] 05-29-2022 09:46-0500 Diastolic blood pressure 72 mm[Hg] Santhosh Holden MD Work Phone: [facility] 05-29-2022 09:46-0500 Heart rate 71 /min Santhosh Holden MD Work Phone: [facility] 05-29-2022 09:46-0500 SaO2% (BldA) [Mass fraction] 95 % Santhosh Holden MD Work Phone: [facility] 05-29-2022 09:46-0500 Systolic blood pressure 132 mm[Hg] Santhosh Holden MD Work Phone: [facility] 10-07-2021 13:34-0400 Body height 172.1 cm Saumya Haagen [employer] OPERATOR.EPITAXIAL REACTOR TECHNICIAN Work Phone: [facility] 10-07-2021 13:34-0400 Body temperature 96.21 [degF] Saumya Haagen [employer] OPERATOR.EPITAXIAL REACTOR TECHNICIAN Work Phone: [facility] 10-07-2021 13:34-0400 Body weight 121.93 kg Saumya Haagen [employer] OPERATOR.EPITAXIAL REACTOR TECHNICIAN Work Phone: [facility] 10-07-2021 13:34-0400 Diastolic blood pressure 84 mm[Hg] Saumya Haagen [employer] OPERATOR.EPITAXIAL REACTOR TECHNICIAN Work Phone: [facility] 10-07-2021 13:34-0400 Heart rate 68 /min Saumya Haagen [employer] PL[employer] OPERATOR.EPITAXIAL REACTOR TECHNICIAN Work Phone: [facility] 10-07-2021 13:34-0400 Respiratory rate 18 /min Saumya Haagen [employer] OPERATOR.EPITAXIAL REACTOR TECHNICIAN Work Phone: [facility] 10-07-2021 13:34-0400 SaO2% (BldA) [Mass fraction] 95 % Saumya Haagen [employer] OPERATOR.EPITAXIAL REACTOR TECHNICIAN Work Phone: 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 08-05-2021 08:31-0400 Body temperature 97.59 [degF] Poonam Garrido PA-C Work Phone: [facility] 08-05-2021 08:31-0400 Body weight 121.38 kg Poonam Latashay PA-C Work Phone: [facility] 08-05-2021 08:31-0400 Diastolic blood pressure 68 mm[Hg] Poonam Athy PA-C Work Phone: [facility] 08-05-2021 08:31-0400 Heart rate 72 /min Poonam Athy PA-C Work Phone: [facility] 08-05-2021 08:31-0400 Respiratory rate 18 /min Poonam Athy PA-C Work Phone: [facility] 08-05-2021 08:31-0400 SaO2% (BldA) [Mass fraction] 95 % Poonam Athy PA-C Work Phone: [facility] 08-05-2021 08:31-0400 Systolic blood pressure 122 mm[Hg] Poonam Athy PA-C Work Phone: [facility] Encounters Encounter Date Encounter Type Care Provider Facility Start: 09-02-2024 End: 09-02-2024 Emergency department patient visit CASANDRA HERNANDEZ [facility] Start: 08-29-2024 End: 08-29-2024 Emergency department patient visit Dr. Santhosh Holden MD Work Phone: -Emergency Department Work Phone: Start: 07-27-2024 End: 07-27-2024 Refill Santhosh Holden MD Work Phone: [facility] [place] Comment on above: Refill Request Start: 07-22-2024 End: 07-22-2024 Refill Santhosh Holden MD Work Phone: [facility] [place] Comment on above: Refill Request Start: 06-22-2024 End: 06-22-2024 ambulatory SANTHOSH HOLDEN Facility:[facility] Start: 06-22-2024 End: 06-22-2024 Patient encounter procedure Jovanna Prince MD Work Phone: Neurology Comment on above: Tremor (Primary Dx); Migraine without aura, intractable, with status migrainosus; Memory difficulty; Drug-induced parkinsonism (HCC) Start: 06-20-2024 End: 06-21-2024 Refill Santhosh Holden MD Work Phone: [facility] Comment on above: Refill Request Start: 06-07-2024 End: 06-08-2024 Refill Santhosh Holden MD Work Phone: [facility] [place] Comment on above: Refill Request Start: 06-06-2024 End: 08-06-2024 Follow-up encounter Santhosh Holden MD Work Phone: [facility] [place] Start: 06-03-2024 End: 06-03-2024 Patient encounter procedure Dru Sahu Work Phone: Podiatry Comment on above: Closed nondisplaced fracture of phalanx of right great toe, unspecified phalanx, initial encounter (Primary Dx); Ulcer of toe of left foot, limited to breakdown of skin (HCC); Porokeratosis; Hammertoe of right foot Start: 06-03-2024 End: 06-03-2024 Subsequent hospital visit by physician Akira [facility] [place] Work Phone: Radiology Comment on above: Closed nondisplaced fracture of phalanx of right great toe, unspecified phalanx, initial encounter [S92.404A] Renal insufficiency [N28.9] Start: 06-03-2024 End: 06-03-2024 ambulatory SANTHOSH HOLDEN Facility:[facility] Start: 06-02-2024 End: 06-02-2024 ambulatory SANTHOSH HOLDEN Facility:[facility] Start: 06-02-2024 End: 06-02-2024 Patient encounter procedure Ros Ortiz OD Work Phone: Ophthalmology Comment on above: Type 2 diabetes preston itus without retinopathy (HCC) (Primary Dx); Combined forms of age-related cataract of both eyes; Dry eye syndrome of bilateral lacrimal glands; Presbyopia Start: 05-26-2024 End: 05-26-2024 ambulatory Santhosh Holden MD Work Phone: [facility] Comment on above: Hearing Start: 05-26-2024 End: 07-26-2024 Follow-up encounter Dru Collado MD Work Phone: [facility] [place] Start: 05-23-2024 End: 07-23-2024 Follow-up encounter Santhosh Holden MD Work Phone: [facility] [place] Start: 05-23-2024 End: 05-25-2024 Telephone encounter Santhosh Holden MD Work Phone: [facility] [place] Comment on above: Results Start: 05-20-2024 End: 05-20-2024 ambulatory SANTHOSH HOLDEN Facility:[facility] Start: 05-20-2024 End: 05-20-2024 Patient encounter procedure Santhosh Holden MD Work Phone: [facility] [place] Comment on above: Chronic nonintractab le [...] 05-17-2024 [facility] Comment on above: Refill Request Start: 05-13-2024 End: 05-16-2024 Refill Saumya Vargas APRN.CNP Work Phone: [facility] [place] Comment on above: Refill Request Closed displaced [...] 05-05-2024 Subsequent hospital visit by physician Akira [facility] [place] Work Phone: Radiology Comment on above: Cellulitis and absce ss of toe of right foot [L03.031, L02.611] Start: 05-05-2024 End: 05-05-2024 ambulatory SANTHOSH HOLDEN Facility:[facility] Start: 05-05-2024 End: 05-06-2024 Patient encounter procedure Dru Adelina Work Phone: Podiatry Comment on above: Cellulitis and absce ss of toe of right foot (Primary Dx); Open wound of toe, initial encounter Refill Request Start: 04-25-2024 End: 04-25-2024 Refill Santhosh Holden MD Work Phone: [facility] Comment on above: Refill Request Start: 04-01-2024 End: 04-04-2024 ambulatory Dru Sahu Work Phone: Podiatry Comment on above: wound culture Start: 04-01-2024 End: 04-04-2024 E-mail encounter from caregiver Dru Adelina Work Phone: Podiatry Start: 03-29-2024 End: 03-29-2024 ambulatory SANTHOSH HOLDEN Facility:[facility] Start: 03-29-2024 End: 03-29-2024 Patient encounter procedure Dru Sahu Work Phone: Podiatry Comment on above: Cellulitis and absce ss of toe of right foot (Primary Dx) Start: 03-16-2024 End: 03-21-2024 ambulatory Santhosh Holden MD Work Phone: Internal Medicine [place] [id number] Start: 02-17-2024 End: 02-19-2024 Refill Santhosh Holden MD Work Phone: [facility] [place] Comment on above: Refill Request Start: 02-16-2024 End: 02-17-2024 Refill Farhat Gallardo DO Work Phone: Cardiology Comment on above: Refill Request Start: 01-29-2024 End: 01-29-2024 Refill Jovanna Prince MD Work Phone: Neurology Comment on above: Refill Request Start: 01-19-2024 End: 01-19-2024 Refill Santhosh Holden MD Work Phone: [facility] [place] Comment on above: Refill Request Start: 01-08-2024 End: 01-08-2024 ambulatory SANTHOSH HOLDEN Facility:[facility] Start: 01-08-2024 End: 01-08-2024 Office outpatient visit 15 minutes Jovanna Prince MD Work Phone: Neurology Comment on above: Tremor (Primary Dx); Migraine without aura, intractable, with status migrainosus Start: 01-05-2024 End: 01-06-2024 Refill Santhosh Holden MD Work Phone: [facility] Comment on above: Refill Request Start: 12-25-2023 End: 12-25-2023 ambulatory SANTHOSH HOLDEN Facility:[facility] Start: 12-25-2023 End: 12-25-2023 Patient encounter procedure Jose HARTLEY Work Phone: Audiology Comment on above: Tinnitus, right ear (Primary Dx); Bilateral hearing loss, unspecified hearing loss type; Other specified hearing loss, unspecified ear; Dizziness and giddiness; Sensorineural hearing loss, bilateral Sensorineural hearin g loss (SNHL) of both ears (Primary Dx) Start: 12-18-2023 End: 12-18-2023 Refill Nanette Carroll APRN.CNP Work Phone: [facility] [place] Comment on above: Refill Request Start: 12-01-2023 End: 12-01-2023 Refill Jovanna Prince MD Work Phone: Neurology Comment on above: Refill Request Start: 11-20-2023 End: 11-20-2023 Refill Nanette Carroll APRN.EPITAXIAL REACTOR TECHNICIAN Work Phone: [facility] [place] Comment on above: Refill Request Start: 11-16-2023 End: 11-17-2023 Refill Santhosh Holden MD Work Phone: [facility] [place] Comment on above: Refill Request Start: 11-11-2023 End: 11-11-2023 ambulatory SANTHOSH HOLDEN Facility:[facility] Start: 11-11-2023 End: 11-11-2023 Office outpatient visit 25 minutes Saumya Vargas APRN.EPITAXIAL REACTOR TECHNICIAN Work Phone: [facility] [place] Comment on above: Type 2 diabetes preston itus with diabetic neuropathy, without long-term current use of insulin (HCC) (Primary Dx); Fibromyalgia; Other hyperlipidemia; KRZYSZTOF (obstructive sleep apnea); Essential tremor; Hypothyroidism, unspecified type; Powers's esophagus with dysplasia; Bipolar 1 disorder (HCC) Start: 11-11-2023 End: 11-11-2023 ambulatory SANTHSOH HOLDEN Facility:[facility] Start: 11-10-2023 End: 11-11-2023 ambulatory Santhosh Holden MD Work Phone: [facility] [place] Comment on above: Gabapentin 600 Refill Request Start: 10-16-2023 Refill Santhosh Holden MD Work Phone: [facility] [place] Comment on above: Refill Request Start: 09-23-2023 Orders Only Dru casillas MD Work Phone: [facility] [place] Comment on above: Other specified hear ing loss, unspecified ear (Primary Dx) Ear,nose and throat doc Start: 09-13-2023 End: 09-13-2023 Letter encounter Nory Villeda DO Work Phone: [facility] Start: 09-08-2023 ambulatory Santhosh Holden MD Work Phone: [facility] [place] Comment on above: Zertex Start: 09-06-2023 ambulatory Santhosh Holden MD Work Phone: [facility] [place] Comment on above: ENT Start: 08-28-2023 ambulatory Santhosh Holden MD Work Phone: [facility] [place] Comment on above: Ozempic Diabetic supplys Start: 08-24-2023 Refill Santhosh Holden MD Work Phone: [facility] [place] Comment on above: Refill Request Start: 08-17-2023 Refill Nanette Jung uppan PARAFFIN PLANT OPERATOR.MACHINE OPERATOR HOP WORKER Work Phone: [facility] [place] Comment on above: Refill Request Start: 08-15-2023 ambulatory Santhosh Holden MD Work Phone: [facility] [place] Comment on above: Sleep apnea test Start: 08-05-2023 Refill Santhosh Holden MD Work Phone: [facility] [place] Comment on above: Refill Request Start: 08-04-2023 Refill Santhosh Holden MD Work Phone: [facility] [place] Comment on above: Refill Request Start: 08-03-2023 ambulatory Santhosh Holden MD Work Phone: [facility] [place] Comment on above: Medication Question (Not Renewal) Start: 07-30-2023 ambulatory Jovanna Prince MD Work Phone: Neurology Comment on above: Non-Urgent Medical Q uestion Start: 07-24-2023 End: 07-24-2023 ambulatory SANTHOSH HOLDEN Facility:[facility] Start: 07-24-2023 End: 07-24-2023 Patient encounter procedure Santhosh Holden MD Work Phone: [facility] [place] Comment on above: KRZYSZTOF (obstructive sle ep apnea) (Primary Dx) Start: 07-20-2023 ambulatory Santhosh Holden MD Work Phone: [facility] [place] Comment on above: Non-Urgent Medical Q uestion Start: 07-15-2023 ambulatory Santhosh Holden MD Work Phone: [facility] [place] Comment on above: Non-Urgent Medical Q uestion Start: 07-13-2023 ambulatory Santhosh Holden MD Work Phone: [facility] [place] Comment on above: Medication Question (Not Renewal) Start: 07-03-2023 End: 07-03-2023 ambulatory SANTHOSH HOLDEN Facility:[facility] Start: 07-03-2023 End: 07-03-2023 Patient encounter procedure Jovanna Prince MD Work Phone: Neurology Comment on above: Tremor (Primary Dx); Migraine without aura, intractable, with status migrainosus Start: 06-07-2023 Letter encounter [employer] Work Phone: Start: 06-04-2023 ambulatory Santhosh Holden MD Work Phone: [facility] [place] Comment on above: Non-Urgent Medical Q uestion Start: 06-02-2023 End: 06-02-2023 Subsequent hospital visit by physician Xr [facility] [place] Work Phone: Radiology Comment on above: [...] ambulatory Santhosh Holden MD Work Phone: Family [facility] [place] Comment on above: Non-Urgent Medical Q uestion Start: 05-25-2023 ambulatory Santhosh Holden MD Work Phone: Family [facility] [place] Comment on above: Non-Urgent Medical Q uestion Refill Request Start: 05-22-2023 Telephone encounter Santhosh Holden MD Work Phone: [facility] [place] Comment on above: requesting medicatio n on list; Appointment Refill Request Start: 05-19-2023 Refill Santhosh Holden MD Work Phone: [facility] [place] Comment on above: Refill Request Start: 05-08-2023 End: 05-08-2023 Patient encounter procedure Radha Andersen EPITAXIAL REACTOR TECHNICIAN Work Phone: Cardiology Comment on above: Mild CAD (Primary Dx ); SOB (shortness of breath); Primary hypertension; Other hyperlipidemia Start: 05-04-2023 ambulatory Santhosh Holden MD Work Phone: [facility] [place] Comment on above: Medication Question (Not Renewal) Start: 04-24-2023 ambulatory Santhosh Holden MD Work Phone: [facility] [place] Comment on above: Non-Urgent Medical Q uestion Start: 03-12-2023 End: 03-12-2023 ambulatory SADE ALSTON Facility:[facility] Start: 02-18-2023 Refill J Luis Wong on PA-C Work Phone: [facility] [place] Comment on above: Refill Request Start: 02-06-2023 End: 02-06-2023 Patient encounter procedure Farhat Gallrado DO Work Phone: Cardiology Comment on above: Coronary-myocardial bridge (Primary Dx); Mild CAD; Primary hypertension; Mixed hyperlipidemia; KRZYSZTOF (obstructive sleep apnea) Start: 02-06-2023 End: 02-06-2023 ambulatory FARHAT GALLARDO Facility:[facility] Start: 02-04-2023 Refill Santhosh Holden MD Work Phone: [facility] Comment on above: Refill Request Start: 01-18-2023 Refill Santhosh Holden MD Work Phone: [facility] [place] Comment on above: Refill Request Start: 12-11-2022 End: 12-11-2022 Patient encounter procedure Sade Alston PA-C Work Phone: General Surgery Comment on above: 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; History of colonic polyps Start: 12-09-2022 ambulatory Santhosh Holden MD Work Phone: [facility] [place] Comment on above: Medication Question (Not Renewal) Start: 12-05-2022 End: 12-05-2022 Patient encounter procedure Santhosh Holden MD Work Phone: [facility] Comment on above: Tremor (Primary Dx); Encounter [...] of colonic polyps; Coronary artery disease involving [place] heart without angina pectoris, unspecified vessel or [...] Telephone encounter Santhosh Holden MD Work Phone: [address] [place] [address] Comment on above: Orders Start: 11-25-2022 Refill Santhosh Holden MD Work Phone: [facility] Comment on above: Refill Request Start: 11-19-2022 End: 11-19-2022 Patient encounter procedure Dru Adelina Work Phone: Podiatry Comment on above: Hammertoe of right f oot (Primary Dx); Other diabetic neurological complication associated with type 2 diabetes mellitus (HCC) Start: 11-19-2022 Telephone encounter Santhosh Holden MD Work Phone: [facility] [place] Comment on above: Medication Problem Start: 11-18-2022 Refill Santhosh Holden MD Work Phone: [facility] Comment on above: Refill Request Start: 11-07-2022 End: 11-07-2022 Patient encounter procedure Jovanna Prince MD Work Phone: Neurology Comment on above: Tremor (Primary Dx); Migraine without aura, intractable, with status migrainosus Start: 11-04-2022 Refill Santhosh Holden MD Work Phone: [facility] [place] Comment on above: Refill Request Start: 10-29-2022 End: 10-29-2022 Emergency department patient visit [facility] Work Phone: Start: 10-29-2022 End: 10-29-2022 Patient encounter procedure Teresa MuñozStuart ARNOLD Work Phone: [facility] Comment on above: Loss of balance (Rosie ion Dx); Multiple falls Start: 10-27-2022 Refill Santhosh Holden MD Work Phone: [facility] Comment on above: Refill Request Start: 10-22-2022 ambulatory Santhosh Holden MD Work Phone: [facility] Comment on above: Non-Urgent Medical Q uestion Start: 10-15-2022 End: 10-15-2022 Patient encounter procedure Dru Sahu Work Phone: Podiatry Comment on above: Closed displaced fra cture of phalanx of lesser toe of right foot, unspecified phalanx, initial encounter (Primary Dx); Hammertoe of right foot Start: 10-15-2022 End: 10-15-2022 Subsequent hospital visit by physician Akira [facility] [place] Work Phone: Radiology Comment on above: Pain [R52] Start: 09-30-2022 Telephone encounter Santhosh Holden MD Work Phone: [facility] [place] Comment on above: Insurance Authorizat ion ([employer]ER [employer]ER thyroid) Start: 09-25-2022 Refill Santhosh Holden MD Work Phone: [facility] [place] Comment on above: Refill Request Pain (Primary Dx) Start: 09-18-2022 Refill Santhosh Holden MD Work Phone: [facility] [place] Comment on above: Refill Request Start: 09-16-2022 Refill Santhosh Holden MD Work Phone: [facility] [place] Comment on above: Refill Request Start: 09-08-2022 Letter encounter Nory Sanchez Work [facility]: [facility] Start: 08-27-2022 Refill Santhosh Holden MD Work Phone: [facility] [place] Comment on above: Refill Request Start: 08-18-2022 ambulatory Jovanna Prince MD Work Phone: Neurology Comment on above: Medication Question (Not Renewal) Start: 08-04-2022 Refill Santhosh Holden MD Work Phone: [facility] [place] Comment on above: Refill Request Start: 07-29-2022 Refill Santhosh Holden MD Work Phone: [facility] [place] Comment on above: Refill Request Start: 07-17-2022 Refill Santhosh Holden MD Work Phone: [facility] [place] Comment on above: Refill Request Start: 06-23-2022 Refill J Luis Moura Marvin on PA-C Work Phone: [facility] [place] Comment on above: Refill Request Start: 06-15-2022 Letter encounter Nory Sanchez Work Phone: [facility] Start: 06-13-2022 End: 06-13-2022 ambulatory Kaylene Zhu [facility] Comment on above: Abnormal posture (Pr imary Dx) Start: 06-06-2022 Documentation procedure Mammog michelle Coordinator [facility] Start: 06-06-2022 Letter encounter Mammography Coordinator [facility] Start: 06-06-2022 Telephone encounter Santhosh Holden MD Work Phone: [facility] [place] Comment on above: Results Start: 06-06-2022 End: 06-06-2022 Subsequent hospital visit by physician Screen Mammo [facility] Comment on above: Screening breast exa mination [Z12.39] Start: 05-30-2022 End: 05-30-2022 Refill Santhosh Holden MD Work Phone: [facility] [place] Comment on above: Refill Request Type 2 diabetes preston itus without retinopathy (HCC) (Primary Dx); Dry eye syndrome of bilateral lacrimal glands; Combined forms of age-related cataract of both eyes; Presbyopia Start: 05-29-2022 End: 05-29-2022 Subsequent hospital visit by physician Akira [facility] [place] Work Phone: Radiology Comment on above: physical Start: 05-29-2022 End: 05-29-2022 Patient encounter procedure Santhosh Holden MD Work Phone: [facility] [place] Comment on above: Primary hypertension (Primary [...] 05-23-2022 Refill Santhosh Holden MD Work Phone: [facility] Comment on above: Refill Request Start: 05-06-2022 Refill Santhosh Holden MD Work Phone: [facility] Comment on above: Refill Request Start: 04-28-2022 Refill Santhosh Holden MD Work Phone: [facility] Comment on above: Refill Request Start: 03-26-2022 Refill Santhosh Holden MD Work Phone: [facility] Comment on above: Refill Request Start: 03-17-2022 Letter encounter Nory Sanchez Work Phone: [facility] Start: 02-24-2022 End: 02-24-2022 Patient encounter procedure Dru Sahu Work Phone: Podiatry Comment on above: Hammertoe of right f oot (Primary Dx) Start: 02-04-2022 Refill Santhosh Holden MD Work Phone: [facility] Comment on above: Refill Request Start: 01-31-2022 Refill Saumya Vargas CLAYTON Work Phone: [facility] Comment on above: Refill Request Start: 01-30-2022 Refill Santhosh Holden MD Work Phone: [facility] Comment on above: Refill Request Start: 01-24-2022 End: 01-24-2022 Patient encounter procedure Dru Sahu Work Phone: Podiatry Comment on above: Post-operative state (Primary Dx); Hammertoe of right foot Start: 01-17-2022 End: 01-17-2022 Patient encounter procedure Dru Sahu Work Phone: Podiatry Comment on above: Post-operative state (Primary Dx); Hammertoe of left foot Start: 01-17-2022 End: 01-17-2022 Subsequent hospital visit by physician Akira [facility] [place] Work Phone: Radiology Comment on [...] 12-18-2021 Subsequent hospital visit by physician Akira [facility] [place] Work Phone: Radiology Comment on above: Other diabetic neuro logical complication associated with type 2 diabetes mellitus (HCC) [E11.49] Start: 12-17-2021 Refill Santhosh Holden MD Work Phone: [facility] [place] Comment on above: Refill Request Start: 11-29-2021 Refill Santhosh Holden MD Work Phone: [facility] [place] Comment on above: Refill Request Start: 11-26-2021 Refill Santhosh Holden MD Work Phone: [facility] [place] Comment on above: Refill Request Start: 11-21-2021 Refill Santhosh Holden MD Work Phone: [facility] [place] Comment on above: Refill Request Start: 10-31-2021 Refill Santhosh Holden MD Work Phone: [facility] [place] Comment on above: Refill Request Start: 10-14-2021 Telephone encounter Saumya marques APRN.CNP Work Phone: [facility] [place] Comment on above: Results Start: 10-07-2021 End: 10-07-2021 Office outpatient visit 25 minutes Saumya Vargas APRN.CNP Work Phone: [facility] [place] Comment on above: Type 2 diabetes preston itus without complication, 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 (HCC) (Primary Dx); Primary hypertension; [...] 10-03-2021 Refill Santhosh Holden MD Work Phone: [facility] [place] Comment on above: Refill Request Lab Orders (upcoming appt 10/07) Start: 09-30-2021 Refill Santhosh Holden MD Work Phone: [facility] Comment on above: Refill Request; Refi ll Request Start: 09-15-2021 Letter encounter Nory Villeda Юлия Sanchez Work Phone: [facility] Start: 08-29-2021 Refill Santhosh eZpeda (Historical) Navin Work Phone: [facility] Comment on above: Refill Request Start: 08-12-2021 Telephone encounter Santhosh Holden MD Work Phone: [facility] Comment on above: Medication Question Start: 08-09-2021 End: 08-09-2021 Patient encounter procedure Dru Sahu Work Phone: Podiatry Comment on above: Ulcer of toe of left foot, limited to breakdown of skin (HCC) (Primary Dx); Other diabetic neurological complication associated with type 2 diabetes mellitus ([facility]); Diminished pulses in lower extremity; Onychomycosis Start: 08-09-2021 End: 08-09-2021 Subsequent hospital visit by physician Akira [facility] [place] Work Phone: Radiology Comment on above: Pain [R52] Start: 08-08-2021 Telephone encounter Teresa Pearson APRN.CNP Work Phone: [facility] Comment on above: Results Start: 08-05-2021 End: 08-05-2021 Subsequent hospital visit by physician Akira [facility] [place] Work Phone: Radiology Comment on above: Cough [R05.9] Start: 08-05-2021 End: 08-05-2021 Patient encounter procedure Poonam Garrido PA-C Work Phone: [facility] Comment on above: Sinobronchitis (Prim ilya Dx) Start: 08-02-2021 Telephone encounter Santhosh Zepeda (Historical) Navin Work Phone: Family [facility] Comment on above: Orders (refill reque st) Start: 07-04-2021 Telephone encounter Santhosh Holden MD Work Phone: [facility] [place] Comment on above: Insurance Authorizat ion ([place] Thyroid 60 mg) Start: 07-02-2021 Refill Santhosh Holden MD Work Phone: [facility] [place] Comment on above: Refill Request Start: 02-24-2020 End: 02-24-2020 Subsequent hospital visit by physician Xr [facility] [place] Work Phone: Radiology Comment on above: Closed nondisplaced fracture of phalanx of lesser toe of right foot with routine healing, unspecified phalanx, subsequent encounter [S92.504D] Start: 07-18-2019 ambulatory UNKNOWN PROVIDER Facili ty:[facility] Procedures Date Procedure Procedure Detail Performing Clinician Start: 08-29-2024 CT cervical spine wi thout contrast Dr. Santhosh Holden MD Work Phone: Start: 08-29-[address] Raymundo Holden MD Work Phone: Start: 08-29-2024 CT of head without contrast Dr. Santhosh Holden MD Work Phone: Start: 05-20-2024 [employer] COVI D-19 VACCINE AGE 12+ YR (COMIRNATY) [...] Phone: Start: 06-06-2022 End: 06-06-2022 Mammography Santhosh oHlden MD Work Phone: Start: 05-29-2022 Radex fingr minimum 2 views Santhosh Holden MD Work Phone: Start: 05-29-2022 [employer] COVI D-19 BIVALENT BOOSTER VACCINE, AGE 12+ [...] 03-12-2028 Screening for malignant neoplasm of colon [facility] Start: 06-09-2025 End: 06-09-2025 Patient encounter procedure 06/09/2025 10:00 AM EDT Office Visit [facility] Ophthalmology [address] [place] [id number] Ros Ortiz, OD [address] [place] [address] 1 year for Diabetic eye exam Ophthalmology Comment on above: 1 year for Diabetic eye exam Start: 06-02-2025 Glaucoma screening Dilated Retinal Exam [facility] Start: 05-20-2025 Annual PCP Team Chronic Disease Visit Annual PCP Team Chronic Disease Visit [facility] Start: 05-20-2025 BP Controlled (<130/80) BP Controlled (<130/80) [facility] Start: 05-20-2025 RSV Vaccine (1 - Risk 60-74 years 1-dose series) RSV Vaccine (1 - Risk 60-74 years 1-dose series) [facility] Comment on above: Postponed from 2023 (Declined at t his time) Start: 05-20-2025 Shingrix Vaccine (1 of 2) Shingrix Vaccine (1 of 2) [facility] Comment on above: Postponed from 09/04/2013 (Declined at t his time) Start: 05-13-2025 Diabetic foot examination Diabetic Foot Exam [facility] Start: 01-11-2025 End: 01-11-2025 Patient encounter procedure 01/11/2025 11:00 AM EDT Office Visit Neurology [address] [address] Jovanna Prince MD [address] [address] 6 month follow up Neurology Comment on above: 6 month follow up Start: 01-07-2025 BP Controlled (<130/80) BP Controlled (<130/80) [facility] Start: 12-23-2024 Tetanus vaccination Tetanus (Td or Tdap) [facility] Start: 12-23-2024 Urine microalbumin profile [facility] Start: 11-18-2024 End: 11-18-2024 Patient encounter procedure 11/18/2024 2:20 PM EDT Office Visit [facility] [place] [address] [place] [address] Santhosh Holden MD [address] [place] [address] 6 mo follow up [facility] [place] Comment on above: 6 mo follow up Start: 11-17-2024 Hemoglobin A1c measurement HbA1C [facility] Start: 11-10-2024 Annual PCP Team Chronic Disease Visit Annual PCP Team Chronic Disease Visit [facility] Start: 11-10-2024 BP Controlled (<130/80) BP Controlled (<130/80) [facility] Start: 11-10-2024 Hepatitis B surface antibody level LDL Cholesterol [facility] Start: 08-29-2024 [facility] Start: 07-23-2024 Annual PCP Team Chronic Disease Visit Annual PCP Team Chronic Disease Visit [facility] Start: 07-02-2024 BP Controlled (<130/80) BP Controlled (<130/80) [facility] Start: 07-01-2024 End: 07-01-2024 Patient encounter procedure 07/01/2024 2:20 PM EDT Office Visit D[facility] [place] [address] [place] [id number] Elizabeth Eisenberg DO [address] [place] [address] Hair loss [L65.9] [facility] [place] Comment on above: Hair loss [L65.9] Start: 07-01-2024 End: 07-01-2024 Patient encounter procedure Podiatry Comment on above: 4 week follow up Start: 06-24-2024 End: 07-03-2025 XR Foot - right AP and Lateral and oblique XR FOOT GENERAL 3V AP/LAT/OBL RIGHT Radiology Routine Closed nondisplaced fracture of phalanx of right great toe, unspecified phalanx, initial encounter Hammertoe of right foot Expected: 06/24/2024, Expires: 07/03/2025 [facility] Work Phone: Comment on above: Expected: 06/24/2024, Expires: Start: 06-22-2024 End: 06-22-2024 Patient encounter procedure 06/22/2024 1:00 PM EDT Office Visit Neurology [address] [phone] Jovanna Prince MD [address] [address] six month follow up Neurology Comment on above: six month follow up Start: 06-03-2024 End: 06-12-2025 XR Toes - right 3 Views [facility] Work Phone: Comment on above: Expected: 06/03/2024, Expires: Start: 06-03-2024 End: 06-03-2024 Patient encounter procedure Podiatry Comment on above: 3 week follow up Renal insufficiency Xray Start: 06-02-2024 End: 06-02-2024 Patient encounter procedure 06/02/2024 2:45 PM EDT Office Visit [facility] [address] [place], [place] [id number] Ros Ortiz, OD [address] [place] [address] Return in about 1 year (around 06/01/2024) for diabetic eye exam. Ophthalmology Comment on above: Return in about 1 year (around 06/01/2024 ) for diabetic eye exam. Start: 06-01-2024 BP Controlled (<130/80) BP Controlled (<130/80) [facility] Start: 06-01-2024 Glaucoma screening Dilated Retinal Exam [facility] Start: 05-24-2024 End: 06-09-2025 XR Toes - right 3 Views XR TOE AP/LAT/OBL RIGHT Radiology Routine Closed displaced fracture of phalanx of right great toe, unspecified phalanx, initial encounter Expected: 05/24/2024, Expires: 06/09/2025 [facility] Work Phone: Comment on above: Expected: 05/24/2024, Expires: Start: 05-23-2024 End: 08-22-2024 Basic metabolic 2000 panel - Serum or Plasma BASIC METABOLIC PANEL Lab Routine Renal insufficiency Expected: 05/23/2024, Expires: 08/22/2024 [facility] Comment on above: Expected: 05/23/2024, Expires: Start: 05-23-2024 End: 08-22-2024 CBC W Auto Differential panel - Blood COMPLETE BLOOD COUNT AND DIFFERENTIAL Lab Routine Anemia, unspecified type Expected: 05/23/2024, Expires: 08/22/2024 [facility] Comment on above: Expected: 05/23/2024, Expires: Start: 05-23-2024 End: 08-22-2024 Ferritin [Mass/volume] in Serum or Plasma FERRITIN Lab Routine Anemia, unspecified type Expected: 05/23/2024, Expires: 08/22/2024 [facility] Comment on above: Expected: 05/23/2024, Expires: Start: 05-23-2024 End: 08-22-2024 Urinalysis complete panel - Urine URINALYSIS, WITH MICROSCOPIC Lab Routine Renal insufficiency Expected: 05/23/2024, Expires: 08/22/2024 [facility] Comment on above: Expected: 05/23/2024, Expires: Start: 05-20-2024 End: 08-19-2024 25-hydroxyvitamin D3 [Mass/volume] in Serum or Plasma [facility] Comment on above: Expected: 05/20/2024, Expires: Start: 05-20-2024 End: 08-19-2024 [id number] [Mass/volume] in Serum or Plasma [facility] Comment on above: Expected: 05/20/2024, Expires: Start: 05-20-2024 End: 08-19-2024 CBC W Auto Differential panel - Blood [facility] Work Phone: Comment on above: Expected: 05/20/2024, Expires: Start: 05-20-2024 End: 08-19-2024 Cobalamin (Vitamin B12) [Mass/volume] in Serum or Plasma [facility] Comment on above: Expected: 05/20/2024, Expires: Start: 05-20-2024 End: 08-19-2024 Comprehensive metabolic 2000 panel - Serum or Plasma [facility] Comment on above: Expected: 05/20/2024, Expires: Start: 05-20-2024 End: 08-19-2024 Folate [Mass/volume] in Serum or Plasma [facility] Comment on above: Expected: 05/20/2024, Expires: Start: 05-20-2024 End: 08-19-2024 [address] A[address]c in Blood [facility] Comment on above: Expected: 05/20/2024, Expires: Start: 05-20-2024 End: 08-19-2024 Iron and Iron binding capacity panel - Serum or Plasma [facility] Comment on above: Expected: 05/20/2024, Expires: Start: 05-20-2024 End: 05-20-2024 Patient encounter procedure 05/20/2024 2:00 PM EST Office Visit Family Billy [facility] [address] [place] [address] Santhosh Holden MD [address] [place] [address] 6 month f/u Family [facility] Comment on above: 6 month f/u Start: 05-20-2024 End: 08-19-2024 Thyrotropin [Units/volume] in Serum or Plasma [facility] Comment on above: Expected: 05/20/2024, Expires: Start: 05-13-2024 [facility] Start: 05-13-2024 End: 05-13-2024 Patient encounter procedure Family Billy [facility] Comment on above: 6 month f/u follow up 2 weeks Start: 05-05-2024 End: 05-05-2024 Patient encounter procedure 05/05/2024 1:45 PM EST Office Visit Podiatry [address] [place] [address] Dru Sahu [address] [address] has right foot big toe and toe [...] Office Visit Podiatry [address] [place] [address] Dru Sahu [address] [address] has right foot big toe and toe [...] up Start: 04-19-2024 HPV TEST[address] [facility] Start: 04-19-2024 PAP TESTING PAP TESTING [facility] Start: 04-19-2024 Screening for malignant neoplasm of cervix [facility] Start: 04-07-2024 Annual PCP Team Chronic Disease Visit Annual PCP Team Chronic Disease Visit [facility] Start: 04-07-2024 BP Controlled (<130/80) BP Controlled (<130/80) [facility] Start: 04-03-2024 Hepatitis B surface antibody level LDL Cholesterol [facility] Start: 02-07-2024 BP Controlled (<130/80) BP Controlled (<130/80) [facility] Start: 01-08-2024 End: 01-08-2024 Patient encounter procedure 01/08/2024 11:30 AM EDT Office Visit Neurology [address] [id number] Jovanna Prince MD [address] [address] six month follow up Migraine without aura, intractable, with status migrainosus Neurology Comment on above: six month follow up Migraine without aur a, intractable, with status migrainosus Start: 12-25-2023 End: 12-25-2023 Patient encounter procedure Audiology Comment on above: Bilateral hearing loss, unspecified hear ing loss type [H91.93] Start: 12-06-2023 Annual PCP Team Chronic Disease Visit Annual PCP Team Chronic Disease Visit [facility] Start: 12-06-2023 Hepatitis B screening Urine Albumin:Creatinine Ratio [facility] Start: 12-06-2023 Shingrix Vaccine (1 of 2) Shingrix Vaccine (1 of 2) [facility] Comment on above: Postponed from 09/04/2013 (Declined at t his time) Start: 11-22-2023 Covid-19 Vaccine ( season) Covid-19 Vaccine ( season) 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 Start: 2023 RSV Vaccine (1 - Risk 60-74 years 1-dose series) RSV Vaccine (1 - Risk 60-74 years 1-dose series) [facility] Start: 2023 RSV vaccine (optional 60+ years) RSV vaccine (optional 60+ years) [facility] Start: 08-21-2023 End: 08-21-2023 Patient encounter procedure 08/21/2023 10:00 AM EDT Office Visit Neurology [address] [id number] KRZYSZTOF (obstructive sleep apnea) [G47.33] Neurology Comment on above: KRZYSZTOF (obstructive sleep apnea) [G47.33] Start: 06-07-[address] [facility] Start: 06-07-2023 Screening for malignant neoplasm of breast Mammogram Screening [facility] Start: 06-05-2023 Hemoglobin A1c/Hemoglobin.total in Blood HbA1C [facility] Start: 05-31-2023 Glaucoma screening Dilated Retinal Exam [facility] Start: 05-31-2023 Hepatitis C antibody, confirmatory test DILATED RETINAL EXAM [facility] Start: 05-30-2023 ANNUAL PCP TEAM CHRONIC DISEASE VISIT ANNUAL PCP TEAM CHRONIC DISEASE VISIT [facility] Start: 05-30-2023 Hepatitis B surface antibody level LDL CHOLESTEROL [facility] Start: 04-06-2023 End: 07-06-2023 Hepatic function 2000 panel - Serum or Plasma HEPATIC FUNCTION PNL Lab Routine Coronary-myocardial bridge Mild CAD Primary hypertension Mixed hyperlipidemia Expected: 04/06/2023, Expires: 07/06/2023 [facility] Work Phone: Comment on above: Expected: 04/06/2023, Expires: Start: 04-06-2023 End: 07-06-2023 Lipid 1996 panel - Serum or Plasma LIPID PANEL BASIC Lab Routine Coronary-myocardial bridge Mild CAD Primary hypertension Mixed hyperlipidemia Expected: 04/06/2023, Expires: 07/06/2023 [facility] Work Phone: Comment on above: Expected: 04/06/2023, Expires: 4 Start: 12-05-2022 End: 02-04-2023 VITAMIN B1 (THIAMINE), WHOLE BLOOD [facility] Work Phone: Comment on above: Expected: 12/05/2022, Expires: 3 Start: 12-01-2022 End: 01-31-2023 ALBUMIN/CREAT RATIO RND UR ALBUMIN/CREAT RATIO RND UR Lab Routine Type 2 diabetes mellitus with diabetic neuropathy, without long-term current use of insulin (HCC) Expected: 12/01/2022, Expires: 01/31/2023 [facility] Work Phone: Comment on above: Expected: 12/01/2022, Expires: 3 Start: 12-01-2022 End: 01-31-2023 Hemoglobin A1c in Blood HGB A1C Lab Routine Type 2 diabetes mellitus with diabetic neuropathy, without long-term current use of insulin (HCC) Expected: 12/01/2022, Expires: 01/31/2023 [facility] Work Phone: Comment on above: Expected: 12/01/2022, Expires: 3 Start: 11-21-2022 COVID-19 Vaccine ( season) COVID-19 Vaccine () [facility] Start: 11-21-2022 Covid-19 Vaccine () Covid-19 Vaccine () [facility] Start: 11-21-2022 Hemoglobin A1c/Hemoglobin.total in Blood HBA1C [facility] Start: 11-21-[address] [facility] Start: 10-29-2022 X-ray of both feet Foot min 3 Views [facility] Start: 10-29-2022 XR Foot GE 3 Views [facility] Start: 10-11-2022 Hepatitis B screening URINE ALBUMIN:CREATININE RATIO [facility] Start: 10-11-2022 Hepatitis B surface antibody level LDL CHOLESTEROL [facility] Start: 10-07-2022 ANNUAL PCP TEAM CHRONIC DISEASE VISIT ANNUAL PCP TEAM CHRONIC DISEASE VISIT [facility] Start: 10-07-2022 HIV SCREENING HIV SCREENING [facility] Comment on above: Postponed from 09/04/1981 (Declined at t his time) Start: 09-19-2022 Influenza vaccination INFLUENZA (#1) [facility] Comment on above: Postponed from 11/21/2021 (Declined at t his time) Start: 09-06-2022 End: 11-06-2022 Lipid 1996 panel - Serum or Plasma LIPID PANEL BASIC Lab Routine Mixed hyperlipidemia Expected: 09/06/2022, Expires: 11/06/2022 [facility] Work Phone: Comment on above: Expected: 09/06/2022, Expires: 3 Start: 08-09-2022 3 comp foot exam completed DIABETIC FOOT EXAM [facility] Start: 08-05-2022 BP CONTROLLED (<130/80) BP CONTROLLED (<130/80) [facility] Start: 05-29-2022 End: 07-29-2022 Cobalamin (Vitamin B12) [Mass/volume] in Serum or Plasma [facility] Work Phone: Comment on above: Expected: 05/29/2022, Expires: 3 Start: 05-29-2022 End: 07-29-2022 Folate [Mass/volume] in Serum or Plasma [facility] Work Phone: Comment on above: Expected: 05/29/2022, Expires: 3 Start: 05-29-2022 End: 07-29-2022 Iron and Iron binding capacity panel - Serum or Plasma [facility] Work Phone: Comment on above: Expected: 05/29/2022, Expires: 3 Start: 05-29-2022 End: 07-29-2022 LIPID PANEL, NONFASTING [facility] Work Phone: Comment on above: Expected: 05/29/2022, Expires: 3 Start: 05-29-2022 End: 07-29-2022 Thyrotropin [Units/volume] in Serum or Plasma [facility] Work Phone: Comment on above: Expected: 05/29/2022, Expires: 3 Start: 05-29-2022 End: 07-29-2022 VITAMIN B1 (THIAMINE), WHOLE BLOOD [facility] Work Phone: Comment on above: Expected: 05/29/2022, Expires: 3 Start: 04-28-2022 End: 06-28-2022 CBC W Auto Differential panel - Blood CBC + DIFF Lab Routine Type 2 diabetes mellitus with diabetic neuropathy, without long-term current use of insulin (HCC) Expected: 04/28/2022, Expires: 06/28/2022 [facility] Work Phone: Comment on above: Expected: 04/28/2022, Expires: 3 Start: 04-28-2022 End: 06-28-2022 Comprehensive metabolic 2000 panel - Serum or Plasma COMP METABOLIC PANEL Lab Routine Type 2 diabetes mellitus with diabetic neuropathy, without long-term current use of insulin (HCC) Expected: 04/28/2022, Expires: 06/28/2022 [facility] Work Phone: Comment on above: Expected: 04/28/2022, Expires: 3 Start: 04-28-2022 End: 06-28-2022 Hemoglobin A1c in Blood HGB A1C Lab Routine Type 2 diabetes mellitus with diabetic neuropathy, without long-term current use of insulin (HCC) Expected: 04/28/2022, Expires: 06/28/2022 [facility] Work Phone: Comment on above: Expected: 04/28/2022, Expires: 3 Start: 04-19-2022 Screening for malignant neoplasm of cervix Pap Smear [facility] Start: 04-13-2022 Hemoglobin A1c/Hemoglobin.total in Blood HBA1C [facility] Start: 02-04-2022 End: 04-06-2022 Alanine aminotransferase [Enzymatic activity/volume] in Serum or Plasma ALT/SGPT Lab Routine Type 2 diabetes mellitus with diabetic neuropathy, without long-term current use of insulin (HCC) Expected: 02/04/2022, Expires: 04/06/2022 [facility] Work Phone: Comment on above: Expected: 02/04/2022, Expires: 3 Start: 02-04-2022 End: 04-06-2022 CBC W Auto Differential panel - Blood CBC + DIFF Lab Routine Type 2 diabetes mellitus with diabetic neuropathy, without long-term current use of insulin (HCC) Expected: 02/04/2022, Expires: 04/06/2022 [facility] Work Phone: Comment on above: Expected: 02/04/2022, Expires: 3 Start: 02-04-2022 End: 04-06-2022 Comprehensive metabolic 2000 panel - Serum or Plasma COMP METABOLIC PANEL Lab Routine Type 2 diabetes mellitus with diabetic neuropathy, without long-term current use of insulin (HCC) Expected: 02/04/2022, Expires: 04/06/2022 [facility] Work Phone: Comment on above: Expected: 02/04/2022, Expires: 3 Start: 02-04-2022 End: 04-06-2022 Hemoglobin A1c in Blood HGB A1C Lab Routine Type 2 diabetes mellitus with diabetic neuropathy, without long-term current use of insulin (HCC) Expected: 02/04/2022, Expires: 04/06/2022 [facility] Work Phone: Comment on above: Expected: 02/04/2022, Expires: 3 Start: 02-04-2022 End: 04-06-2022 Lipid 1996 panel - Serum or Plasma LIPID PANEL BASIC Lab Routine Type 2 diabetes mellitus with diabetic neuropathy, without long-term current use of insulin (HCC) Expected: 02/04/2022, Expires: 04/06/2022 [facility] Work Phone: Comment on above: Expected: 02/04/2022, Expires: 3 Start: 02-04-2022 End: 04-06-2022 Thyrotropin [Units/volume] in Serum or Plasma TSH BLD Lab Routine Hypothyroidism, unspecified type Expected: 02/04/2022, Expires: 04/06/2022 [facility] Work Phone: Comment on above: Expected: 02/04/2022, Expires: 3 Start: 02-04-2022 End: 04-06-2022 Thyroxine (T4) free [Mass/volume] in Serum or Plasma T4 FREE/FREE THYROX Lab Routine Hypothyroidism, unspecified type Expected: 02/04/2022, Expires: 04/06/2022 [facility] Work Phone: Comment on above: Expected: 02/04/2022, Expires: 3 Start: 02-04-2022 End: 04-06-2022 Triiodothyronine (T3) [Mass/volume] in Serum or Plasma T3 BLD Lab Routine Hypothyroidism, unspecified type Expected: 02/04/2022, Expires: 04/06/2022 [facility] Work Phone: Comment on above: Expected: 02/04/2022, Expires: 3 Start: 02-04-2022 End: 04-06-2022 Triiodothyronine (T3) Free [Mass/volume] in Serum or Plasma T3 FREE BLD Lab Routine Hypothyroidism, unspecified type Expected: 02/04/2022, Expires: 04/06/2022 [facility] Work Phone: Comment on above: Expected: 02/04/2022, Expires: 3 Start: 12-21-2021 Influenza vaccination Influenza Vaccine (#1) [facility] Start: 12-04-2021 Hepatitis B surface antibody level LDL CHOLESTEROL [facility] Start: 11-29-2021 COVID-19 VACCINE (5 - Booster for Pfizer series) COVID-19 VACCINE (5 - Booster for Pfizer series) [facility] Start: 11-21-[address] [facility] Start: 10-21-2021 End: 04-23-2022 Alanine aminotransferase [Enzymatic activity/volume] in Serum or Plasma ALT/SGPT Lab Routine Other hyperlipidemia Expected: 10/21/2021, Expires: 04/23/2022 [facility] Work Phone: Comment on above: Expected: 10/21/2021, Expires: 3 Start: 10-21-2021 End: 04-23-2022 Lipid 1996 panel - Serum or Plasma LIPID PANEL BASIC Lab Routine Other hyperlipidemia Expected: 10/21/2021, Expires: 04/23/2022 [facility] Work Phone: Comment on above: Expected: 10/21/2021, Expires: 3 Start: 10-21-2021 End: 04-23-2022 Thyrotropin [Units/volume] in Serum or Plasma TSH BLD Lab Routine Hypothyroidism, unspecified type Expected: 10/21/2021, Expires: 04/23/2022 [facility] Work Phone: Comment on above: Expected: 10/21/2021, Expires: 3 Start: 10-21-2021 End: 04-23-2022 Thyroxine (T4) free [Mass/volume] in Serum or Plasma T4 FREE/FREE THYROX Lab Routine Hypothyroidism, unspecified type Expected: 10/21/2021, Expires: 04/23/2022 [facility] Work Phone: Comment on above: Expected: 10/21/2021, Expires: 3 Start: 10-21-2021 End: 04-23-2022 Triiodothyronine (T3) [Mass/volume] in Serum or Plasma T3 BLD Lab Routine Hypothyroidism, unspecified type Expected: 10/21/2021, Expires: 04/23/2022 [facility] Work Phone: Comment on above: Expected: 10/21/2021, Expires: 3 Start: 10-07-2021 End: 12-07-2021 ALBUMIN/CREAT RATIO RND UR ALBUMIN/CREAT RATIO RND UR Lab Routine Type 2 diabetes mellitus without complication, 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 (HCC) Expected: 10/07/2021, Expires: 12/07/2021 [facility] Work Phone: Comment on above: Expected: 10/07/2021, Expires: 2 Start: 10-07-2021 End: 12-07-2021 CBC W Auto Differential panel - Blood CBC + DIFF Lab Routine Iron deficiency anemia, unspecified iron deficiency anemia type Expected: 10/07/2021, Expires: 12/07/2021 [facility] Work Phone: Comment on above: Expected: 10/07/2021, Expires: 2 Start: 10-07-2021 End: 12-07-2021 Comprehensive metabolic 2000 panel - Serum or Plasma COMP METABOLIC PANEL Lab Routine Essential hypertension Other hyperlipidemia Type 2 diabetes mellitus without complication, 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 (HCC) Expected: 10/07/2021, Expires: 12/07/2021 [facility] Work Phone: Comment on above: Expected: 10/07/2021, Expires: 2 Start: 10-07-2021 End: 12-07-2021 Ferritin [Mass/volume] in Serum or Plasma FERRITIN BLD Lab Routine Iron deficiency anemia, unspecified iron deficiency anemia type Expected: 10/07/2021, Expires: 12/07/2021 [facility] Work Phone: Comment on above: Expected: 10/07/2021, Expires: 2 Start: 10-07-2021 End: 12-07-2021 Hemoglobin A1c in Blood HGB A1C Lab Routine Type 2 diabetes mellitus without complication, 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 (HCC) Expected: 10/07/2021, Expires: 12/07/2021 [facility] Work Phone: Comment on above: Expected: 10/07/2021, Expires: 2 Start: 10-07-2021 End: 12-07-2021 Iron and Iron binding capacity panel - Serum or Plasma IRON + TIBC Lab Routine Iron deficiency anemia, unspecified iron deficiency anemia type Expected: 10/07/2021, Expires: 12/07/2021 [facility] Work Phone: Comment on above: Expected: 10/07/2021, Expires: 2 Start: 10-07-2021 End: 12-07-2021 LIPID PANEL, NONFASTING LIPID PANEL, NONFASTING Lab Routine Other hyperlipidemia Expected: 10/07/2021, Expires: 12/07/2021 [facility] Work Phone: Comment on above: Expected: 10/07/2021, Expires: 2 Start: 10-07-2021 End: 12-07-2021 Magnesium [Mass/volume] in Serum or Plasma MAGNESIUM BLD Lab Routine Primary hypertension Essential hypertension Expected: 10/07/2021, Expires: 12/07/2021 [facility] Work Phone: Comment on above: Expected: 10/07/2021, Expires: 2 Start: 10-07-2021 End: 12-07-2021 Thyrotropin [Units/volume] in Serum or Plasma TSH BLD Lab Routine Hypothyroidism, unspecified type Expected: 10/07/2021, Expires: 12/07/2021 [facility] Work Phone: Comment on above: Expected: 10/07/2021, Expires: 2 Start: 10-07-2021 End: 12-07-2021 Thyroxine (T4) free [Mass/volume] in Serum or Plasma T4 FREE/FREE THYROX Lab Routine Hypothyroidism, unspecified type Expected: 10/07/2021, Expires: 12/07/2021 [facility] Work Phone: Comment on above: Expected: 10/07/2021, Expires: 2 Start: 10-07-2021 End: 12-07-2021 Triiodothyronine (T3) [Mass/volume] in Serum or Plasma T3 BLD Lab Routine Hypothyroidism, unspecified type Expected: 10/07/2021, Expires: 12/07/2021 [facility] Work Phone: Comment on above: Expected: 10/07/2021, Expires: 2 Start: 10-03-2021 End: 10-03-2022 CBC W Auto Differential panel - Blood CBC + DIFF Lab Routine Primary hypertension Expected: 10/03/2021, Expires: 10/03/2022 [facility] Work Phone: Comment on above: Expected: 10/03/2021, Expires: 3 Start: 10-03-2021 End: 10-03-2022 Comprehensive metabolic 2000 panel - Serum or Plasma COMP METABOLIC PANEL Lab Routine Primary hypertension Expected: 10/03/2021, Expires: 10/03/2022 [facility] Work Phone: Comment on above: Expected: 10/03/2021, Expires: 3 Start: 10-03-2021 End: 10-03-2022 Lipid 1996 panel - Serum or Plasma LIPID PANEL BASIC Lab Routine Primary hypertension Expected: 10/03/2021, Expires: 10/03/2022 [facility] Work Phone: Comment on above: Expected: 10/03/2021, Expires: 3 Start: 10-03-2021 End: 12-03-2021 Thyrotropin [Units/volume] in Serum or Plasma TSH BLD Lab Routine Hypothyroidism, unspecified type Expected: 10/03/2021, Expires: 12/03/2021 [facility] Work Phone: Comment on above: Expected: 10/03/2021, Expires: 2 Start: 08-05-2021 End: 08-19-2021 SARS-CoV-2 (COVID-19) RNA [Presence] in Respiratory specimen by JAMSHID with probe detection [facility] Work Phone: Comment on above: Expected: 08/05/2021, Expires: 2 Start: 06-03-2021 Hemoglobin A1c/Hemoglobin.total in Blood HBA1C [facility] Start: 05-30-2021 ANNUAL PCP TEAM CHRONIC DISEASE VISIT ANNUAL PCP TEAM CHRONIC DISEASE VISIT [facility] Start: 05-15-2021 COVID-19 VACCINE (4 - Booster for Pfizer series) COVID-19 VACCINE (4 - Booster for Pfizer series) [facility] Start: 04-10-[address] [facility] Start: 03-09-2021 COVID-19 VACCINE (4 - Booster for Pfizer series) COVID-19 VACCINE (4 - Booster for Pfizer series) [facility] Start: 11-24-2020 3 comp foot exam completed [facility] Start: 10-23-2020 Hepatitis C antibody, confirmatory test DILATED RETINAL EXAM [facility] Start: 08-30-2020 Hepatitis B screening URINE ALBUMIN:CREATININE RATIO [facility] Start: 03-14-2020 Basic metabolic 2000 panel - Serum or Plasma Basic Metabolic Panel [facility] Start: 03-14-2020 Creatinine measurement Basic Metabolic Panel [facility] Start: 01-11-[address] [facility] Start: 01-11-2020 COLORECTAL CANCER SCREENING COLORECTAL CANCER SCREENING [facility] Start: 08-22-2019 Annual wellness visit Annual Wellness Visit ([id number]) [facility] Start: 09-04-2013 Measurement of occult blood in single stool specimen FIT [facility] Start: 09-04-2013 Screening for malignant neoplasm of breast Mammography [facility] Start: 09-04-2013 Screening for malignant neoplasm of colon CRC Screening [facility] Start: 09-04-2013 Shingles (RZV) Vaccine (1 of 2) Shingles (RZV) Vaccine (1 of 2) [facility] Start: 09-04-2013 SHINGRIX VACCINE (1 of 2) SHINGRIX VACCINE (1 of 2) [facility] Start: 09-04-2008 Cholesterol [Mass/volume] in Serum or Plasma Cholesterol [facility] Start: 09-04-2008 COLOGUARD (FIT-DNA) COLOGUARD (FIT-DNA) [facility] Start: 09-04-[address] [facility] Start: 09-04-2008 FECAL OCCULT BLOOD FECAL OCCULT BLOOD [facility] Start: 09-04-2008 Screening for malignant neoplasm of colon [facility] Start: 09-04-[address] [facility] Start: 2003 Screening for malignant neoplasm of breast Mammography [facility] Start: 09-04-1982 Hepatitis A (HAV) Vaccine (optional start 19+ years) Hepatitis A (HAV) Vaccine (optional start 19+ years) [facility] Start: 09-04-1982 HEPATITIS B (1 of 3 - Risk 3-dose series) HEPATITIS B (1 of 3 - Risk 3-dose series) [facility] Start: 09-04-1982 SHINGRIX VACCINE (1 of 2) SHINGRIX VACCINE (1 of 2) [facility] Start: 09-04-1981 BP CONTROLLED (<130/80) BP CONTROLLED (<130/80) [facility] Start: 09-04-1981 Hepatitis C screening Hepatitis C Antibody [facility] Start: 09-04-1981 HIV SCREENING HIV SCRE[facility]ING [facility] Start: 09-04-1978 HIV screening HIV Test [facility] Start: 09-04-1969 PNEUMOCOCCAL (1 - PCV) PNEUMOCOCCAL (1 - PCV) [facility] Start: 1965 HEPATITIS B (1 of 3 - 3-dose series) HEPATITIS B (1 of 3 - 3-dose series) [facility] Start: 1965 Hepatitis B vaccination Hepatitis B (HBV) Vaccine (1 of 3 - 3-dose series) [facility] Start: 1965 Screening for malignant neoplasm of colon Colonoscopy [facility] Start: 1965 Thyroid stimulating hormone measurement TSH [facility] Bacteria identified in Wound by Culture BACTERIAL CULTURE AND GRAM STAIN, ABSCESS AND WOUND (AEROBIC CULTURE) Microbiology Routine Cellulitis and abscess of toe of right foot 03/29/2024 12:18 PM [employer] [facility] Work Phone: Bacteria identified in Wound by Culture BACTERIAL CULTURE AND GRAM STAIN, ABSCESS AND WOUND (AEROBIC CULTURE) Microbiology Routine Cellulitis and abscess of toe of right foot 05/05/2024 2:13 PM EST [facility] Work Phone: End: 04-15-2025 DBT Breast - bilateral screening JESUS SCREENING W TIFFANY Radiology Routine Encounter for screening mammogram for breast cancer 1 Occurrences starting 03/16/2024 until 04/15/2025 [facility] Work Phone: Comment on above: 1 Occurrences starting 03/16/2024 until 04/15/2025 End: 05-08-2024 Echocardiography ECHO Cardiology Routine Mild CAD SOB (shortness of breath) 1 Occurrences starting 05/08/2023 until 05/08/2024 [facility] Work Phone: Comment on above: 1 Occurrences starting 05/08/2023 until 05/08/2024 Electrocardiogram EKG BIC Routin e 02/07/2023 1:11 AM EST [facility] End: 09-23-2024 HEARING TEST/AUDIOGRAM HEARING TEST/AUDIOGRAM Audiology Routine Other specified hearing loss, unspecified ear 1 Occurrences starting 09/23/2023 until 09/23/2024 [facility] Work Phone: Comment on above: 1 Occurrences starting 09/23/2023 until 09/23/2024 Hemoglobin.gastroint estina l.lower [Presence] in Stool by Immunoassay IMMUNOCHEMICAL FECAL OCCULT BLOOD TEST Lab Routine Anemia, unspecified type Ordered: 05/23/2024 [facility] Work Phone: Comment on above: Ordered: 05/23/2024 End: 07-23-2024 HOME SLEEP APNEA TEST (HSAT) HOME SLEEP APNEA TEST (HSAT) Procedures Routine KRZYSZTOF (obstructive sleep apnea) 1 Occurrences starting 07/24/2023 until 07/23/2024 [facility] Work Phone: Comment on above: 1 Occurrences starting 07/24/2023 until 07/23/2024 End: 06-19-2025 Liver stiffness by US.transient elastography US ELASTOGRAPHY LIVER Radiology Routine Liver fibrosis 1 Occurrences starting 05/20/2024 until 06/19/2025 [facility] Comment on above: 1 Occurrences starting 05/20/2024 until 06/19/2025 End: 06-28-2023 JESUS SCREENING JESUS SCREENING Radiology Routine Screening breast examination 1 Occurrences starting 05/29/2022 until 06/28/2023 [facility] Work Phone: Comment on above: 1 Occurrences starting 05/29/2022 until 06/28/2023 Patient Education [facility] Work Phone: Patient referral [facility] Work Phone: End: 08-09-2022 PVR ANK PRESS SHY VAS LAB PVR ANK PRESS [facility] Vascular Lab Routine Ulcer of toe of left foot, limited to breakdown of skin (HCC) Diminished pulses in lower extremity 1 Occurrences starting 08/09/2021 until 08/09/2022 [facility] Work Phone: Comment on above: 1 Occurrences starting 08/09/2021 until 08/09/2022 End: 06-19-2025 US Abdomen RUQ US ABD RIGHT UPPER QUADRANT Radiology Routine Liver fibrosis 1 Occurrences starting 05/20/2024 until 06/19/2025 [facility] Comment on above: 1 Occurrences starting 05/20/2024 until 06/19/2025 End: 06-22-2025 US Kidney - bilateral and Urinary bladder US KIDNEY/BLADDER Radiology Routine Renal insufficiency 1 Occurrences starting 05/23/2024 until 06/22/2025 [facility] Comment on above: 1 Occurrences starting 05/23/2024 until 06/22/2025 US Kidney - bilatera l and Urinary bladder US KIDNEY/BLADDER Radiology Routine Renal insufficiency 06/03/2024 2:12 PM EDT [facility] Work Phone: End: 06-28-2023 XR DIGIT GENERAL 3V FRONTAL/LAT/OBL RIGHT XR DIGIT GENERAL 3V FRONTAL/LAT/OBL RIGHT Radiology Routine Finger pain, right 1 Occurrences starting 05/29/2022 until 06/28/2023 [facility] Work Phone: Comment on above: 1 Occurrences starting 05/29/2022 until 06/28/2023 XR DIGIT GENERAL 3V FRONTAL/LAT/OBL RIGHT XR DIGIT GENERAL 3V FRONTAL/LAT/OBL RIGHT Radiology Routine Finger pain, right 05/29/2022 11:53 AM EST [facility] Work Phone: End: 12-18-2021 XR FOOT GENERAL 3V AP/LAT/OBL LEFT [facility] Work Phone: Comment on above: 1 Occurrences starting 12/18/2021 until 12/18/2021 End: 10-25-2023 XR FOOT GENERAL 3V AP/LAT/OBL RIGHT XR FOOT GENERAL 3V AP/LAT/OBL RIGHT Radiology Routine Pain 1 Occurrences starting 09/25/2022 until 10/25/2023 [facility] Work Phone: Comment on above: 1 Occurrences starting 09/25/2022 until 10/25/2023 End: 11-14-2023 XR FOOT GENERAL 3V AP/LAT/OBL RIGHT XR FOOT GENERAL 3V AP/LAT/OBL RIGHT Radiology Routine Hammertoe of right foot Closed displaced fracture of phalanx of lesser toe of right foot, unspecified phalanx, initial encounter 1 Occurrences starting 10/15/2022 until 11/14/2023 [facility] Work Phone: Comment on above: 1 Occurrences starting 10/15/2022 until 11/14/2023 XR Toes - right 3 Views XR TOE A P/LAT/OBL RIGHT Radiology Routine Closed displaced fracture of phalanx of right great toe, unspecified phalanx, initial encounter 05/13/2024 1:22 PM EST [facility] Work Phone: [facility] Immunizations Immunization Date Immunization Notes Care Provider [facility] 08-29-2024 tetanus toxoid, reduced diphtheria toxoid, and acellular pertussis vaccine, adsorbed Dr. Santhosh Holden MD Work Phone: [facility] 05-20-2024 COVID-19 vaccine, ag e 12+ yr (PFIZER-BIONTTeliApp COMIRNAT) Santhosh Holden MD Work Phone: [facility] 05-20-2024 influenza, seasonal, injectable Santhosh Holden MD Work Phone: [facility] 04-07-2023 COVID-19 vaccine, ag e 12+ yr, season (PFIZER-BIONTECH) Santhosh Holden MD Work Phone: [facility] 12-05-2022 influenza, injectabl e, quadrivalent, contains preservative Santhosh Holden MD Work Phone: [facility] 12-05-2022 influenza virus vaccine, unspecified formulation Dru Collado MD Work Phone: [facility] 05-29-2022 COVID-19 booster vaccine, age 12+ yr, bivalent (PFIZER-BIONTECH) Santhosh Holden MD Work Phone: [facility] 05-29-2022 pneumococcal (PCV20) vaccine, 20 valent (PREVNAR 20) Santhosh Holden MD Work Phone: [facility] 05-29-2022 pneumococcal Conjugate, unspecified formulation Santhosh Holden MD Work Phone: [facility] Work Phone: 07-02-2020 Pfizer SARS-COV-2 (COVID-19) vaccine, age 12+ yrs, mRNA, spike protein, LNP, preservative free, 30 mcg/0.3mL dose (CIP=551) [employer] Work Phone: [facility] 06-11-2020 Pfizer SARS-COV-2 (COVID-19) vaccine, age 12+ yrs, mRNA, spike protein, LNP, preservative free, 30 mcg/0.3mL dose (LXU=116) [employer] Work Phone: [facility] 02-24-2020 influenza, injectabl e, quadrivalent, contains preservative Santhosh Holden MD Work Phone: [facility] 02-24-2020 influenza virus vaccine, unspecified formulation [employer] Work Phone: [facility] 11-23-2018 influenza virus vaccine, unspecified formulation Santhosh Holden MD Work Phone: [facility] 12-23-2017 influenza, injectabl e, quadrivalent, contains preservative Santhosh Holden MD Work Phone: [facility] 01-01-2017 influenza, injectabl e, quadrivalent, preservative free Dr. Santhosh Holden MD Work Phone: [facility] 01-01-2017 influenza, seasonal, injectable [facility] 01-01-2017 influenza, seasonal, injectable, preservative free Santhosh Holden MD Work Phone: [facility] 04-01-2016 influenza, injectabl e, quadrivalent, preservative free Santhosh Holden MD Work Phone: [facility] 12-23-2014 tetanus and diphther ia toxoids, adsorbed, preservative free, for adult use (2 Lf of tetanus toxoid and 2 Lf of diphtheria toxoid) [facility] 12-23-2014 tetanus toxoid, reduced diphtheria toxoid, and acellular pertussis vaccine, adsorbed Santhosh Holden MD Work Phone: [facility] Payers Date Payer Category Payer Self-pay [id number] 2017 Medicaid [id number] 2017 Medicare [id number] 2017 Medicare [id number] 2017 Medicare (Managed Care) [employer] [facility] [employer] [id number] 2017 Unknown [id number] 2014 Medicaid [id number] 1965 Unknown [id number] 1965 Unknown [id number] Medicare MEDICARE PART A B [id number] 1 [id number] Private Health Insurance [facility] 18 [id number] Unknown [facility] COMM[facility]AN [id number] Unknown [id number] Unknown [id number] Social History Date Type Detail Facility Start: 10-23-2014 End: 08-29-2024 Tobacco smoking status NHIS Ex-smoker [facility] Start: 03-23-1978 End: 06-20-1990 History of tobacco use Current smoker [facility] Start: 03-23-1978 End: 06-20-1990 History of tobacco use Cigarette Smoker [facility] Start: 10-23-2014 End: 08-06-2022 Cigarettes smoked current (pack per day) - Reported 1.5 [facility] Start: 10-23-2014 End: 11-11-2023 Tobacco use and exposure Smokeless tobacco non-user [facility] Start: 04-14-2021 End: 06-03-2024 Alcohol intake Current non-drinker of alcohol (finding) [facility] Start: 11-25-2019 History SDOH Alcohol Frequency 1 [facility] Start: 11-25-2019 History SDOH Alcohol Std Drinks 98 [facility] Start: 11-25-2019 History SDOH Transport Med 2 [facility] Start: 11-25-[address] [facility] Start: 1965 Sex Assigned At Female [facility] Start: 01-25-2020 End: 02-24-2022 Exposure to SARS-CoV-2 (event) Not sure [facility] Work Phone: Start: 1965 Sex Assigned At Not on file [facility] Start: 11-25-2019 End: 08-06-2022 Gender identity Not on file [facility] Adult Depression Screening Assessment 1 [facility] Start: 11-22-2019 Gender identity Identifies as female gender (finding) [facility] Start: 11-22-2019 Sexual orientation Heterosexual (finding) [facility] How often to you hav e a drink containing alcohol? Never [facility] In the past 12 month s, was there a time when you were not able to pay the mortgage or rent on time? Yes [facility] At any time in the p ast 12 months, were you homeless or living in care home [including now]? No [facility] Start: 10-29-2022 Tobacco smoking status NHIS Unknown if ever smoked [facility] Medical Equipment Procedure Code Equipment Code Equipment Origin al Text Equipment Identifier Dates [id number] Start: 09-27-2018 [id number], [id number], [id number], [id number], [id number], [id number], [id number], [id number], [id number] Start: 09-27-2018 End: 05-17-2024 Comment on above: Test blood sugar(s) once times daily. Dx: E11.40 Test blood sugar(s) one time daily. Dx: Other DM Code E11.40 Insulin: No Test blood sugar(s) one time daily. Dx: Other DM Code E11.40 Insulin: No [id number] Start: 09-27-2018 Functional Status Date Assessment Result Facility 05-17-2020 Are you deaf, or do you have serious difficulty hearing No 05/17/2020 5:08 PM Rahel Hemphill RN [facility] 05-17-2020 Are you blind, or do you have serious difficulty seeing, even when wearing glasses No 05/17/2020 5:08 PM Rahel Hemphill RN [facility] 05-17-2020 Do you have serious difficulty walking or climbing stairs No 05/17/2020 5:08 PM Rahel Hemphill RN No [facility] 05-17-2020 Do you have difficul ty dressing or bathing No 05/17/2020 5:08 PM Rahel Hemphill RN No [facility] 05-17-2020 Because of a physica l, mental, or emotional condition, do you have difficulty doing errands alone such as visiting a physician's office or shopping No 05/17/2020 5:08 PM Rahel Hemphill RN No [facility] Mental Status Date Assessment Result Facility 05-17-2020 Because of a physica l, mental, or emotional condition, do you have serious difficulty concentrating, remembering, or making decisions No 05/17/2020 5:08 PM Rahel Hemphill RN No [facility] Clinical Notes 02-10-2018 to 08-29-2024 Telephone Encounter - Pina Springer LPN - 07/27/2024 2:45 PM EDTTelephone Encounter - Pina Springer LPN - 07/27/2024 2:45 PM EDTTelephone Encounter - Mayco Valladares CRIBBER - 07/22/2024 10:24 AM EDT Note Date & Type Note Facility 08-29-2024 Discharge summary [facility] 08-29-2024 Radiology Diagnostic study note [facility] Imaging Services [address] [place] [address] [id number] Brain/Head without Contrast MR#: [id number] Acct: [id number] Name: INÉS SHANKS Rep #: [id number] : 1965 F 58 From: Pet er Peer DO PCP: Dr. Santhosh Holden MD Status: PRE E R Study:Brain/Head without Contrast Date of Exa m: 08/29/24 Exam# [id number] Ordering Dr: Sachin Marie DO PROCEDURE: BRAIN/HEAD [...] chronic small-vessel ischemic changes . Reading Location: [facility] CC: Dr. Sachin Walton DO; Dr. Santhosh Holden MD ~ Rn Case Manager: Signed [facility] 08-29-2024 Radiology Diagnostic study note [facility] Imaging Services [address] [place] [address] [id number] Sinus/Facial Bone MR#: [id number] Acct: [id number] Name: INÉS SHANKS Rep #: [id number] : 1965 F 58 From: Flash Hwang MD PCP: Dr. Santhosh Holden MD Status: PRE E R Study:Sinus/Facial Bone Date of Exam: Exam# [id number] Ordering Dr: Sachin Marie DO PROCEDURE: SINUS/FACIAL [...] No acute abnormality is seen. Reading Location: [facility] CC: Dr. Sachin Walton DO; Dr. Santhosh Holden MD ~ Rn Case Manager: Signed [facility] 08-29-2024 Radiology Diagnostic study note [facility] Imaging Services [address] [place] [address] Spine Cervical without Contras MR#: [id number] Acct: [id number] Name: INÉS SHANKS Rep #: [id number] : 1965 F 58 From: Flash Hwang MD PCP: Dr. Santhosh Holden MD Status: PRE E R Study:Spine Cervical without Contras Date of Exam: 08/29/24 Exam# [id number] Ordering Dr: Sachin Marie DO PROCEDURE: SPINE [...] CANAL OR NEURAL FORAMINAL STENOSIS. Reading Location: [place] [address] CC: Dr. Sachin Walton DO; Dr. Santhosh Holden MD ~ Rn Case Manager: Signed [facility] 07-27-2024 Telephone encounter Note Prescription Refill [...] Springer LPN July 27, 2024 2:[address] [facility] 07-27-2024 Miscellaneous Notes Prescription Refill Information The [...] 2024 2:45 PM documented in this encounter [facility] 07-22-2024 Telephone encounter Note Prescription Refill Information [...] Valladares LPN July 22, 2024 10:[address] [facility] 07-22-2024 Miscellaneous Notes Prescription Refill Information The [...] 2024 10:25 AM documented in this encounter [facility] 06-22-2024 Instructions Jovanna Prince MD - 06/22/2024 1:06 PM EDT 1. To schedule the neuropsych testing call: - Jeanette Bravo or Dr. Alfaro [phone] or [phone] - [facility] [phone] option 2 2. Migraine preventative medication topiramate (also called Topamax). - Titration instructions: - Week 1-2: Take 1/2 tablet (25 mg) twice a day - Week 3 and on: take 1 pill twice a day - Stay hydrated on this medicine to prevent kidney stones documented in this encounter [facility] 06-22-2024 Note HNO ID: [id number] Author: JOVANNA PRINCE MD Service: ? Author [...] mg SL tab (more content not included)... [facility] 06-22-2024 History of Present illness Narrative FOLLOW [...] chin strap (if indicated) and lifetime supplies ([facility]) DX: KRZYSZTOF G47.33 1 Device 0 multivit [...] Discussed with Patient: YES Jovanna Prince MD [facility] Neurology documented in this encounter [facility] 06-21-2024 Telephone encounter Note Patient requesting refills as follows via Mychart: ELVIN: 01/08/24 NOV: 06/22/24 Requested Prescriptions Pending Prescriptions Disp Refills prochlorperazine (COMPAZINE) 10 mg tablet 20 tablet 1 Sig: Take 1 tablet by mouth two times a day as needed (migraine). Please review and advise. Rebecca Britton MA [facility] 06-21-2024 Miscellaneous Notes Patient requesting refills as follows via Mychart: ELVIN: 01/08/24Jan: 06/22/24 Requested Prescriptions Pending Prescriptions Disp Refills prochlorperazine (COMPAZINE) 10 mg tablet 20 tablet 1 Sig: Take 1 tablet by mouth two times a day as needed (migraine). Please review and advise. Rebecca Britton MA documented in this encounter [facility] 06-20-2024 Telephone encounter Note The patient has [...] Vogt RN June 20, 2024 7:[address] [facility] 06-20-2024 Miscellaneous Notes The patient has been [...] 2024 7:11 PM documented in this encounter [facility] 06-20-[address] [facility] 06-20-2024 Miscellaneous Notes documented in this encounter [facility] 06-08-2024 Telephone encounter Note Prescription Refill Information [...] Cueva LPN June 08, 2024 10:[address] [facility] 06-08-2024 Miscellaneous Notes Prescription Refill Information The [...] 2024 10:30 AM documented in this encounter [facility] 06-04-2024 Note HNO ID: [id number] Author: DRU SAHU, ? Service: ? Author [...] She presents to clinic in [facility]. She reports to walking barefoot at [...] 5.0 4.3 - 5.6 % Final Comment: [place] Diabetes Association guidelines indicate that patients with [...] chin strap (if indicated) and lifetime supplies ([facility]) DX: KRZYSZTOF G47.33 multivit with minerals/lutein (MULTIVITAMIN 50 PLUS ORAL) Take 1 tablet by mouth once daily. COMPOUNDED PRESCRIPTION Diabetic shoes One pair CPAP CPAP with humidification. Mask (per patient preference) optional chin st (more content not included)... [facility] 06-04-2024 History of Present illness Narrative FOLLOW UP PODIATRIC OFFICE VISIT Chief Complaint: This 58 year old who presents for follow up:fracture of right hallux and ulceration of left hallux. Patient presents to clinic for follow-up fracture of right hallux. She has no pain. She has a surgical shoe but she is not wearing. She presents to clinic in [facility]. She reports to walking barefoot at [...] 5.0 4.3 - 5.6 % Final Comment: [place] Diabetes [employer] guidelines indicate that patients with [...] chin strap (if indicated) and lifetime supplies ([facility]) DX: KRZYSZTOF G47.33 multivit with minerals/lutein (MULTIVITAMIN [...] Hollie Diana LPN documented in this encounter [facility] 06-03-2024 History of Present illness Narrative [...] PATIENT PRESENTS WITH AN IMPLANTABLE OR ATTACHED VALET RUNNER: No RADIOLOGY DEPARTMENT: Ultrasound PERIPHERAL IV DATA: Not applicable SIGNED BY: Annette Flor RDMS RVT June 03, 2024 2:19 PM documented in this encounter [facility] 06-03-2024 Note HNO ID: [id number] Author: ANNETTE FLOR RDMS Service: ? Author Type: Program Engineer Type: Progress Notes Filed: 06/03/2024 14:20 Note [...] PATIENT PRESENTS WITH AN IMPLANTABLE OR ATTACHED VALET RUNNER: No RADIOLOGY DEPARTMENT: Ultrasound PERIPHERAL IV DATA: Not applicable SIGNED BY: Annette Flor RDMS RVT June 03, 2024 2:19 PM [facility] 06-03-2024 Instructions Dru Sahu - 06/03/2024 1:23 [...] and/or additional treatments. documented in this encounter [facility] 06-03-2024 Note HNO ID: [id number] Author: HOLLIE DIANA LPN Service: ? Author Type: LICENSED NURSE Type: Progress Notes Filed: 06/04/2024 09:16 Note Text: AMB ROOMING INTAKE FLOWSHEET DATA Pain Pain Level: 1 Pain Location: Toe Description: Sore Frequency: Continuous Intervention/Comfort measure: Reposition, Relaxation Patient presents with: Right Foot - Established Patient, Follow Up, Pain, Fracture Left Great Toe - Diabetic Foot Ulcer, Established Patient Hollie Diana LPN [facility] 06-03-2024 History of Present illness Narrative Radiology [...] PATIENT PRESENTS WITH AN IMPLANTABLE OR ATTACHED VALET RUNNER: No RADIOLOGY DEPARTMENT: General X-ray: Exam(s) Completed: Lower Extremity X-Ray(s): Toes, Right, GREAT TOE ONLY PERIPHERAL IV DATA: Not applicable SIGNED BY: RT Timothy(R) June 03, 2024 1:31 PM documented in this encounter [facility] 06-03-2024 Note HNO ID: [id number] Author: JOANNE MIXON RT(R) Service: ? Author [...] PATIENT PRESENTS WITH AN IMPLANTABLE OR ATTACHED VALET RUNNER: No RADIOLOGY DEPARTMENT: General X-ray: Exam(s) Completed: Lower Extremity X-Ray(s): Toes, Right, GREAT TOE ONLY PERIPHERAL IV DATA: Not applicable SIGNED BY: RT Timothy(R) June 03, 2024 1:31 PM [facility] 06-02-2024 Note HNO ID: [id number] Author: ROS ORTIZ OD Service: ? Author Type: ASSISTANT READING TEACHER Type: Progress Notes Filed: 06/02/2024 15:10 Note Text: 1. Type 2 diabetes mellitus without retinopathy (HCC) (Primary) Risk of diabetic changes and vision loss can be minimized by tight control of blood sugar, blood pressure, and cholesterol levels. Educated patient to continue care with primary care doctor and/or fan mail editor to maintain optimum levels as they are [...] Ortiz OD June 02, 2024 3:09 PM [facility] 06-02-2024 History of Present illness Narrative 1. Type 2 diabetes mellitus without retinopathy (HCC) (Primary) Risk of diabetic changes and vision loss can be minimized by tight control of blood sugar, blood pressure, and cholesterol levels. Educated patient to continue care with primary care doctor and/or fan mail editor to maintain optimum levels as they are [...] 2024 3:09 PM documented in this encounter [facility] 05-25-2024 Telephone encounter Note Spoke with patient and informed of results. Transferred to scheduling for ultrasound. Suzanne Mathews MA [facility] 05-25-2024 Miscellaneous Notes Spoke with patient and [...] Do renal us. documented in this encounter [facility] 05-24-2024 Telephone encounter Note Voicemail not set up. [facility] 05-23-2024 Telephone encounter Note Message all circuits are busy will need to try again later. [facility] 05-23-2024 Telephone encounter Note Liver is good. Her vit d is slightly low. Would take vit d otc 1000 units a day. Her kidney function is slightly reduced. Make sure drinking adequate fluid. Is slightly anemic. Looks like it might possibly be related to her kidneys Recheck labs in two weeks. Including ifobt. Do renal us. [facility] [facility] Note HNO ID: [id number] Author: SANTHOSH HOLDEN MD Service: ? Author [...] chin strap (if indicated) and lifetime supplies ([facility]) DX: KRZYSZTOF G47.33 multivit with minerals/lutein (MULTIVITAMIN [...] Take 200 m (more content not included)... [facility] 05-20-2024 History of Present illness Narrative Patient [...] chin strap (if indicated) and lifetime supplies ([facility]) DX: KRZYSZTOF G47.33 multivit with minerals/lutein (MULTIVITAMIN [...] (post-traumatic stress disorder) PVD (peripheral vascular disease) ([facility]) Sciatica Shoulder injury Type II or unspecified [...] 6MO-64YR, TRIVALENT (AFLURIA, FLULAVAL, FLUVIRIN, FLUZONE) - PFI[employer]ER-[employer] COVID-19 VACCINE AGE 12+ YR ([place]Y) 18. Bipolar. Stable, per psych Santhosh Holden MD documented in this encounter [facility] 05-17-2024 Telephone encounter Note Pt medications through with another medication refill order. [facility] 05-17-2024 Miscellaneous Notes Pt medications through with another medication refill order. documented in this encounter [facility] 05-17-2024 Telephone encounter Note The patient has [...] Vogt RN May 17, 2024 8:[address] [facility] 05-17-2024 Miscellaneous Notes The patient has been [...] 2024 8:53 AM documented in this encounter [facility] 05-16-2024 Telephone encounter Note Prescription Refill Information [...] Springer LPN May 16, 2024 12:[address] [facility] 05-16-2024 Miscellaneous Notes Prescription Refill Information The [...] 2024 12:41 PM documented in this encounter [facility] 05-13-2024 Instructions Dru Sahu - 05/13/2024 1:57 [...] in 3 weeks documented in this encounter [facility] 05-13-2024 Note HNO ID: [id number] Author: DRU SAHU, ? Service: ? Author [...] 5.4 4.3 - 5.6 % Final Comment: English Diabetes Association guidelines indicate that patients with [...] chin strap (if indicated) and lifetime supplies ([facility]) DX: KRZYSZTOF G47.33 multivit with minerals/lutein (MULTIVITAMIN 50 PLUS ORAL) Take 1 tablet by mouth once daily. COMPOUNDED PRESCRIPTION Diabetic shoes One pair CPAP CPAP with humidification. Mask (per patient preference) optional chin strap ( (more content not included)... [facility] 05-13-2024 History of Present illness Narrative FOLLOW [...] 5.4 4.3 - 5.6 % Final Comment: English Diabetes Association guidelines indicate that patients with [...] chin strap (if indicated) and lifetime supplies ([facility]) DX: KRZYSZTOF G47.33 multivit with minerals/lutein (MULTIVITAMIN [...] appointment. ELVIN 05/05/[address] this encounter [facility] 05-13-2024 History of Present illness Narrative Radiology [...] PATIENT PRESENTS WITH AN IMPLANTABLE OR ATTACHED VALET RUNNER: No RADIOLOGY DEPARTMENT: General X-ray: Exam(s) Completed: Lower Extremity X-Ray(s): Toes, Right, great toe PERIPHERAL IV DATA: Not applicable SIGNED BY: RT Timothy([place]) May 13, 2024 3:33 PM documented in this encounter [facility] 05-13-2024 Note HNO ID: [id number] Author: JOANNE MIXON RT([place]) Service: ? Author [...] PATIENT PRESENTS WITH AN IMPLANTABLE OR ATTACHED VALET RUNNER: No RADIOLOGY DEPARTMENT: General X-ray: Exam(s) Completed: Lower Extremity X-Ray(s): Toes, Right, great toe PERIPHERAL IV DATA: Not applicable SIGNED BY: RT Timothy(R) May 13, 2024 3:33 PM [facility] 05-13-2024 Note HNO ID: [id number] Author: SADE RODRIGUEZ RN Service: ? Author [...] weeks. Xray prior to appointment. ELVIN 05/05/24 [facility] 05-13-2024 Telephone encounter Note Prescription Refill Information [...] Valladares LPN May 13, 2024 11:[address] [facility] 05-13-2024 Miscellaneous Notes Prescription Refill Information The [...] 2024 11:41 AM documented in this encounter [facility] 05-13-2024 Telephone encounter Note Prescription Refill [...] Valladares LPN May 13, 2024 11:[address] [facility] 05-13-2024 Miscellaneous Notes Prescription Refill Information The [...] 2024 11:38 AM documented in this encounter [facility] 05-10-2024 Note HNO ID: [id number] Author: ZEENAT JOHNSTON MD Service: ? Author [...] the requesting team. The patient or patient's specialty sales representative consented to e-consultation. SIGNATURE: Zeenat Johnston MD PATIENT NAME: Inés Shanks DATE: May 10, 2024 TIME: 11:53 AM [facility] 05-10-2024 History of Present illness Narrative INPATIENT [...] the requesting team. The patient or patient's specialty sales representative consented to e-consultation. SIGNATURE: Zeenat Johnston MD PATIENT NAME: Inés Shanks DATE: May 10, 2024 TIME: 11:53 AM documented in this encounter [facility] 05-10-2024 Telephone encounter Note Patient will slate picker post op shoe on Thursday05/13/2024 at office visit. Hollie Diana LPN [facility] 05-10-2024 Miscellaneous Notes Patient will slate picker post op shoe on Thursday05/13/2024 at office visit. Hollie Diana LPN Contacted patient to discuss xrays. She finally got back to my [employer] message. I would like her to get surgical shoe for fracture of great toe. She is to repeat xrays of right great toe in 2 weeks. Continue with local wound care I attempted to contact patient but no answer. Unable to leave voice mail because her voice mail is yet to be set up. Left [employer] message Dru Sahu DPM documented in this encounter [facility] 05-10-2024 Telephone encounter Note Contacted patient to discuss xrays. She finally got back to my [employer] message. I would like her to get surgical shoe for fracture of great toe. She is to repeat xrays of right great toe in 2 weeks. Continue with local wound care [facility] 05-06-2024 Telephone encounter Note I attempted to contact patient but no answer. Unable to leave voice mail because her voice mail is yet to be set up. Left [employer] message Dru Sahu DPM [facility] 05-06-2024 Telephone encounter Note The following approved medication requests have been transmitted electronically. Requested Prescriptions Pending Prescriptions Disp Refills pantoprazole DR (PROTONIX) 40 mg tablet 180 tablet 1 Sig: Take 1 tablet by mouth two times a day. Nanette Carroll APRN.CNP [facility] 05-06-2024 Miscellaneous Notes The following approved medication [...] 2024 1:00 PM documented in this encounter [facility] 05-06-2024 Telephone encounter Note Prescription Refill Information [...] Cueva LPN May 06, 2024 1:[address] [facility] 05-05-2024 Instructions Dru Sahu - 05/05/2024 2:03 PM EST Soak your right foot in soap and water x 10 minutes daily Dry thoroughly Apply topical antibiotic and band aide to the toe Follow-up in 1-2 weeks documented in this encounter [facility] 05-05-2024 Note HNO ID: [id number] Author: DRU SAHU, ? Service: ? Author [...] 5.4 4.3 - 5.6 % Final Comment: English Diabetes Association guidelines indicate that patients with [...] (post-traumatic stress disorder) PVD (peripheral vascular disease) ([facility]) Sciatica Shoulder injury Type II or unspecified [...] preference) optional chin (more content not included)... [facility] 05-05-2024 History of Present illness Narrative FOLLOW [...] 5.4 4.3 - 5.6 % Final Comment: English Diabetes Association guidelines indicate that patients with [...] chin strap (if indicated) and lifetime supplies ([facility]) DX: KRZYSZTOF G47.33 multivit with minerals/lutein (MULTIVITAMIN [...] Hollie Diana LPN documented in this encounter [facility] 05-05-2024 Note HNO ID: [id number] Author: HOLLIE DIANA LPN Service: ? Author Type: LICENSED NURSE Type: Progress Notes Filed: 05/05/2024 14:08 Note Text: AMB ROOMING INTAKE FLOWSHEET DATA Pain Pain Level: 1 Pain Location: Toe Description: Sore Duration Amount of Time: 1 Duration Units: Months Frequency: Intermittent Intervention/Comfort measure: Relaxation, Reposition, Medication Patient presents with: Right Foot - Established Patient, Follow Up Hollie Diana LPN [facility] 04-25-2024 Telephone encounter Note Prescription Refill Information [...] Cueva LPN April 25, 2024 2:[address] [facility] 04-25-2024 Miscellaneous Notes Prescription Refill Information The [...] 2024 2:56 PM documented in this encounter [facility] 03-29-2024 Note HNO ID: [id number] Author: SADE RODRIGUEZ RN Service: ? Author [...] Visit completed when applicable. Sade Rodriguez RN [facility] 03-29-2024 History of Present illness Narrative UNIVERSAL [...] chin strap (if indicated) and lifetime supplies ([facility]) DX: KRZYSZTOF G47.33 multivit with minerals/lutein (MULTIVITAMIN [...] declined. Dru Sahu DPM Podiatry [address] [facility] [address] Dept: [phone] Dept AMB ROOMING INTAKE FLOWSHEET DATA Pain [...] neuropathy. ELVIN 11/19/[address] encounter [facility] 03-29-2024 Instructions Sade Rodriguez RN - 03/29/2024 [...] as well if you have any questions/concerns [phone], ask for Podiatry Nurse documented in this encounter [facility] 03-29-2024 Note HNO ID: [id number] Author: DRU SAHU, ? Service: ? Author [...] chin strap (if indicated) and lifetime supplies ([facility]) DX: KRZYSZTOF G47.33 multivit with minerals/lutein (MULTIVITAMIN [...] COMPOUNDED PRESCRIPTION EX-LARG (more content not included)... [facility] 03-29-2024 Note HNO ID: [id number] Author: SADE RODRIGUEZ RN Service: ? Author [...] with a history of neuropathy. ELVIN 11/19/22 [facility] 03-16-2024 Note Patient Outreach ([facility]) ---- INÉS SHANKS ([id number]) 1965 F FNS Date Time Provider Department [...] breast cancer [Z12.31] Order(s):JESUS SCREENING Yennifer ALLEN [[id number]] Order #: [id number] FUTURE Prescriptions as of 03/21/2024 - gabapentin [...] chin strap (if indicated) and lifetime supplies ([facility]) DX: KRZYSZTOF G47.33 - multivit with minerals/lutein [...] reflux disease) [K21.9] (more content not included)... [facility] 02-19-2024 Telephone encounter Note Prescription Refill Information [...] Katz LPN February 19, 2024 7:[address] [facility] 02-19-2024 Miscellaneous Notes Prescription Refill Information The [...] 2024 7:29 AM documented in this encounter [facility] 02-17-2024 Telephone encounter Note ELVIN:05/08/2023 Teofilo NOV: None scheduled [facility] 02-17-2024 Miscellaneous Notes ELVIN:05/08/2023 Teofilo NOV: None scheduled documented in this encounter [facility] 01-29-2024 Telephone encounter Note Pharmacy requesting refills as follows via ERAR: ELVIN: 01/08/24 NOV: 06/22/24 Requested Prescriptions Pending Prescriptions Disp Refills carbidopa-levodopa (SINEMET) 25-100 mg per tablet 270 tablet 1 Sig: Take 1 tablet by mouth three times a day. Please review and advise. Rebecca Britton MA [facility] 01-29-2024 Miscellaneous Notes Pharmacy requesting refills as follows via ERAR: ELVIN: 01/08/24 NOV: 06/22/24 Requested Prescriptions Pending Prescriptions Disp Refills carbidopa-levodopa (SINEMET) 25-100 mg per tablet 270 tablet 1 Sig: Take 1 tablet by mouth three times a day. Please review and advise. Rebecca Britton MA documented in this encounter [facility] 01-19-2024 Telephone encounter Note Prescription Refill Information [...] Fontaine MA January 19, 2024 3:[address] [facility] 01-19-2024 Miscellaneous Notes Prescription Refill Information The [...] 2024 3:58 PM documented in this encounter 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 I wouldn't change your medication today but will write to your psychiatrist about things. documented in this encounter [facility] 01-08-2024 Note HNO ID: [id number] Author: JOVANNA PRINCE MD Service: ? Author [...] two times a (more content not included)... [facility] 01-08-2024 History of Present illness Narrative FOLLOW [...] chin strap (if indicated) and lifetime supplies ([facility]) DX: KRZYSZTOF G47.33 1 Device 0 multivit [...] Discussed with Patient: n/a Jovanna Prince MD [facility] Neurology documented in this encounter [facility] 01-06-2024 Telephone encounter Note Prescription Refill Information [...] Valladares LPN January 06, 2024 8:[address] [facility] 01-06-2024 Miscellaneous Notes Prescription Refill Information The [...] 2024 8:30 AM documented in this encounter [facility] 12-25-2023 Note HNO ID: [id number] Author: DRU COLLADO MD Service: ? Author [...] physician via mail or electronic medical record. [facility] 12-25-2023 History of Present illness Narrative ARANZA [...] electronic medical record. documented in this encounter [facility] 12-25-2023 Instructions Jose Mir AUD - 12/25/2023 9:46 AM EDT Images from the original note were not included. [facility] [place] Section of Audiology Thank you for trusting the [facility] Audiology department with your hearing healthcare today. [...] Medicaid. Thank you for trusting and choosing [facility] Audiology with your hearing care needs. Please do not hesitate to reach out with any questions or concerns. Sincerely, .ta2 documented in this encounter [facility] 12-25-2023 Note HNO ID: [id number] Author: JOSE MIR AUD Service: ? Author Type: Physical Director Type: Progress Notes Filed: 12/25/2023 10:21 Note Text: [place] AUDIOLOGIC EVALUATION REPORT Name: Inés Shanks [facility]#: [id number] Date of Service: 12/25/2023 Date of : 1965 Age: [age] year old Referred by: Dru Collado MD Referred for: Evaluation of suspected change in hearing, tinnitus, or balance. Referral documented: In an order in [facility] Patient's major complaints: Hearing loss: asking [...] evaluation of middle ear function. CPT code: 78454 RIGHT EAR: Did not test. LEFT EAR: Did not test. ACOUSTIC REFLEXES Description of procedure: This test is an objective measure of auditory and facial nerve pathways. CPT code: 80249, 01997 RIGHT EAR PROBE EAR: (ipsi right stimulus [...] bone conduction and speech recognition testing. CPT code:15683 RIGHT EAR: Hearing Sensitivity: Mild SNHL Word [...] for individuals who have Medicaid. Corby Maurice, [facility] Physical Director copied to: Dru Collado MD ROJO Abbrev- iation Definition Degree of hearing sensitivity dB range WNL within normal limits WNL 0 - 20 SNHL sensorineural hearing loss Mild 20-40 CHL conductive hearing loss Moderate 40-55 MHL mixed hearing loss Moderately-Severe 55-70 WRS word recognition score Severe 70-90 ME middle ear Profound 90 + TM tympanic membrane [facility] 12-25-2023 History of Present illness Narrative [place] AUDIOLOGIC EVALUATION REPORT Name: Inés Shanks [facility]#: [id number] Date of Service: 12/25/2023 Date of : 1965 Age: [age] year old Referred by: Dru Collado MD Referred for: Evaluation of suspected change in hearing, tinnitus, or balance. Referral documented: In an order in [facility] Patient's major complaints: Hearing loss: asking [...] evaluation of middle ear function. CPT code: 01696 RIGHT EAR: Did not test. LEFT EAR: Did not test. ACOUSTIC REFLEXES Description of procedure: This test is an objective measure of auditory and facial nerve pathways. CPT code: 87032, 59870 RIGHT EAR PROBE EAR: (ipsi right stimulus [...] bone conduction and speech recognition testing. CPT code:52750 RIGHT EAR: Hearing Sensitivity: Mild SNHL Word [...] for individuals who have Medicaid. Corby Maurice, [facility] Physical Director copied to: Dru Collado MD ROJO Abbrev- iation Definition Degree of hearing sensitivity dB range WNL within normal limits WNL 0 - 20 SNHL sensorineural hearing loss Mild 20-40 CHL conductive hearing loss Moderate 40-55 MHL mixed hearing loss Moderately-Severe 55-70 WRS word recognition score Severe 70-90 ME middle ear Profound 90 + TM tympanic membrane documented in this encounter [facility] 12-18-2023 Telephone encounter Note Prescription Refill Information [...] Valladares LPN December 18, 2023 4:[address] [facility] 12-18-2023 Miscellaneous Notes Prescription Refill Information The [...] 2023 4:30 PM documented in this encounter [facility] 12-18-2023 Telephone encounter Note Prescription Refill Information [...] Valladares LPN December 18, 2023 4:[address] [facility] 12-18-2023 Miscellaneous Notes Prescription Refill Information The [...] 2023 4:29 PM documented in this encounter [facility] 12-01-2023 Telephone encounter Note Last office visit 07/03/23, 6 month follow up scheduled for 01/08/24. Please advise. Requested Prescriptions Pending Prescriptions Disp Refills prochlorperazine (COMPAZINE) 10 mg tablet 20 tablet 1 Sig: Take 1 tablet by mouth two times a day as needed (migraine). [facility] 12-01-2023 Miscellaneous Notes Last office visit 07/03/23, 6 month follow up scheduled for 01/08/24. Please advise. Requested Prescriptions Pending Prescriptions Disp Refills prochlorperazine (COMPAZINE) 10 mg tablet 20 tablet 1 Sig: Take 1 tablet by mouth two times a day as needed (migraine). documented in this encounter [facility] 11-20-2023 Telephone encounter Note Prescription Refill Information [...] Valladares LPN November 20, 2023 3:[address] [facility] 11-20-2023 Miscellaneous Notes Prescription Refill Information The [...] 2023 3:31 PM documented in this encounter [facility] 11-16-2023 Telephone encounter Note Prescription Refill Information [...] Katz LPN November 16, 2023 3:[address] [facility] 11-16-2023 Miscellaneous Notes Prescription Refill Information The [...] 2023 3:01 PM documented in this encounter [facility] 11-11-2023 Telephone encounter Note Prescription Refill Information [...] Valladares LPN November 11, 2023 11:[address] [facility] 11-11-2023 Miscellaneous Notes Prescription Refill Information The [...] 2023 11:21 AM documented in this encounter [facility] 11-11-2023 Telephone encounter Note Prescription Refill Information [...] Valladares LPN November 11, 2023 11:[address] [facility] 11-11-2023 Miscellaneous Notes Prescription Refill Information The [...] 2023 11:20 AM documented in this encounter [facility] 11-11-2023 Instructions Saumya Vargas APRN.CNP - 11/11/2023 10:23 AM EDT Call the sleep study department to reschedule sleep study. Good morning, we have been unable to reach you in regards to rescheduling you home sleep study please call our office at [phone]. 2. Schedule follow-up with cardiology. 3. Continues the same medications. 4. Get the labwork done. 5. Recheck in 6 months. documented in this encounter [facility] 11-11-2023 Note HNO ID: [id number] Author: SAUMYA VARGAS APRN.CHILO Service: ? Author [...] disorder) No date: PVD (peripheral vascular disease) ([facility]) No date: Sciatica No date: Shoulder injury [...] EGD 01/10/2016: ESOPHAGOGASTRODUODENOSCOPY TRANSORAL DIAGNOSTIC Comment: EGD ([facility]) 03/2016: GASTRIC BYPASS HX Comment: gastric sleeve [...] tablet by mouth (more content not included)... [facility] 11-11-2023 History of Present illness Narrative This [...] EGD 01/10/2016: ESOPHAGOGASTRODUODENOSCOPY TRANSORAL DIAGNOSTIC Comment: EGD ([facility]) 03/2016: GASTRIC BYPASS HX Comment: gastric sleeve [...] chin strap (if indicated) and lifetime supplies ([facility]) DX: KRZYSZTOF G47.33 multivit with minerals/lutein (MULTIVITAMIN [...] Saumya Vargas APRN.CHILO documented in this encounter [facility] 11-10-2023 Telephone encounter Note According to our chart and [place], you are on 300 mg 3 x day. You have an appointment tomorrow with Saumya. I will renew the 300 mg 3 x day for 1 month. You will need to discuss further at your appt. [facility] 11-10-2023 Miscellaneous Notes According to our chart and [place], you are on 300 mg 3 x day. You have an appointment tomorrow with Saumya. I will renew the 300 mg 3 x day for 1 month. You will need to discuss further at your appt. documented in this encounter [facility] 10-19-2023 Telephone encounter Note Prescription Refill Information [...] Valladares LPN October 19, 2023 10:[address] [facility] 10-19-2023 Miscellaneous Notes Prescription Refill Information The [...] 2023 10:39 AM documented in this encounter [facility] 09-16-2023 Telephone encounter [address] Please place consult to ENT with Dx reason [facility] 09-16-[address] consult to ENT with Dx reason Please help patient with her ENT consult order. Thank you documented in this encounter [facility] 09-07-2023 Telephone encounter Note Please help patient with her ENT consult order. Thank you [facility] 08-28-2023 Telephone encounter Note Increase this dose to 0.5 mg? [facility] 08-28-2023 Miscellaneous Notes Increase this dose to 0.5 mg? documented in this encounter [facility] 08-24-2023 Telephone encounter Note Patient MyChart message [...] like symptoms Zolpidem Other: See Comments (home) [phone] (cell) Last Office Visit Date: 07/24/2023 Last [facility] Visit: Visit date not found Future Appointment: 11/11/2023 The patients preferred pharmacy has been captured for this encounter? yes Request is for script(s) to be escript to pharmacy. Ion Fairbanks LPN [facility] 08-24-2023 Miscellaneous Notes Patient MyChart message requesting [...] like symptoms Zolpidem Other: See Comments (home) [phone] (cell) Last Office Visit Date: 07/24/2023 Last [facility] Visit: Visit date not found Future Appointment: 11/11/2023 The patients preferred pharmacy has been captured for this encounter? yes Request is for script(s) to be escript to pharmacy. Ion Fairbanks LPN documented in this encounter [facility] 08-18-2023 Telephone encounter Note The following approved medication requests have been transmitted electronically. Requested Prescriptions Pending Prescriptions Disp Refills gabapentin (NEURONTIN) 300 mg capsule 90 capsule 2 Sig: Take 1 capsule by mouth three times a day for 90 days. Nanette Carroll APRN.CNS [facility] 08-18-2023 Miscellaneous Notes The following approved medication [...] 2023 8:07 AM documented in this encounter [facility] 08-18-2023 Telephone encounter Note Prescription Refill Information [...] Leon MA August 18, 2023 8:[address] [facility] 08-05-2023 Telephone encounter Note Patient has been identified by name and date of : Yes Patient phones for refill(s): Requested Prescriptions Pending Prescriptions Disp Refills lisinopril (ZESTRIL) 5 mg tablet 90 tablet 3 Sig: Take 1 tablet by mouth once daily. Date of last office visit in primary care: 07/24/2023 Date of next office visit in primary care: 11/11/2023 Patient's [id number] is waiting at the Pharmacy now for this prescription. She is asking if this can be sent now? Please advise. Thank you. Erlinda Lisa. [facility] 08-05-2023 Miscellaneous Notes Patient has been identified by name and date of : Yes Patient phones for refill(s): Requested Prescriptions Pending Prescriptions Disp Refills lisinopril (ZESTRIL) 5 mg tablet 90 tablet 3 Sig: Take 1 tablet by mouth once daily. Date of last office visit in primary care: 07/24/2023 Date of next office visit in primary care: 11/11/2023 Patient's [id number] is waiting at the Pharmacy now for this prescription. She is asking if this can be sent now? Please advise. Thank you. Erlinda Lisa. documented in this encounter [facility] 08-04-2023 Telephone encounter Note Checked with pharmacy, refills available. [facility] 08-04-2023 Miscellaneous Notes Checked with pharmacy, refills [...] you. Nadia Mcgarry. documented in this encounter [facility] 08-04-2023 Telephone encounter Note Patient has one [...] 11/11/2023 Please advise. Thank you. Nadia Mcgarry. [facility] 07-30-2023 Telephone encounter Note Pharmacy verified in [facility] Patient has been identified by name [...] Not applicable Please advise. Olive Mercedes MA [facility] 07-30-2023 Miscellaneous Notes Pharmacy verified in [facility] Patient has been identified by name [...] Olive Mercedes MA documented in this encounter [facility] 07-24-2023 Note HNO ID: [id number] Author: SANTHOSH HOLDEN MD Service: ? Author Type: Physician Type: Progress Notes Filed: 07/24/2023 10:38 Note Text: Patient presents with: Sleep Apnea HPI: Patient presents today for office visit for ckkz-so-dhxn for replacement CPAP machine. KRZYSZTOF: Has not [...] chin strap (if indicated) and lifetime supplies ([facility]) DX: KRZYSZTOF G47.33 multivit with minerals/lutein (MULTIVITAMIN [...] Anxiety Powers's esophagus (more content not included)... [facility] 07-24-2023 History of Present illness Narrative Patient presents with: Sleep Apnea HPI: Patient presents today for office visit for doen-bc-isvi for replacement CPAP machine. KRZYSZTOF: Has not [...] chin strap (if indicated) and lifetime supplies ([facility]) DX: KRZYSZTOF G47.33 multivit with minerals/lutein (MULTIVITAMIN [...] Keep next appt. documented in this encounter [facility] 07-20-2023 Telephone encounter Note Concern below forwarded to provider in separate encounter with same date. DAVID Larios [facility] 07-20-2023 Miscellaneous Notes Concern below forwarded to provider in separate encounter with same date. DAVID Larios documented in this encounter [facility] 07-15-[address] Lazaro to patient's message in regards to Ozempic med. Already advised patient to schedule a sleep follow up with PCP office. Kasandra Florian MA [facility] 07-15-[address] Lazaro to patient's message in regards to Ozempic med. Already advised patient to schedule a sleep follow up with PCP office. Kasandra Florian MA documented in this encounter [facility] 07-15-2023 Telephone encounter Note SEE OTHER MESSAGE 07/14. Kasandra Florian MA [facility] 07-15-2023 Miscellaneous Notes SEE OTHER MESSAGE 07/14. Kasandra Florian MA documented in this encounter [facility] 07-03-2023 Instructions Jovanna Prince MD - 07/03/2023 [...] may help tremor. documented in this encounter [facility] 07-03-2023 Note O ID: [id number] Author: JOVANNA PRINCE MD Service: ? Author [...] 500 mg tablet (more content not included)... [facility] 07-03-2023 History of Present illness Narrative FOLLOW [...] chin strap (if indicated) and lifetime supplies ([facility]) DX: KRZYSZTOF G47.33 1 Device 0 multivit [...] Discussed with Patient: YES Jovanna Prince MD [facility] Neurology documented in this encounter [facility] 06-04-2023 Miscellaneous Notes Patient has been identified [...] care: 11/11/2023 Please advise. Thank you. Nanette Ktaz LPN. documented in this encounter [facility] 06-02-2023 History of Present illness Narrative CC: [...] (post-traumatic stress disorder) PVD (peripheral vascular disease) ([facility]) Sciatica Shoulder injury Type II or unspecified [...] chin strap (if indicated) and lifetime supplies ([facility]) DX: KRZYSZTOF G47.33^Disp: 1 Device^Rfl: 0 multivit [...] Rebecca Mireles APRN.CHILO documented in this encounter [facility] 06-02-2023 History of Present illness Narrative Radiology [...] PATIENT PRESENTS WITH AN IMPLANTABLE OR ATTACHED VALET RUNNER: No RADIOLOGY DEPARTMENT: General X-ray: Exam(s) Completed: Chest X-Ray PERIPHERAL IV DATA: Not applicable SIGNED BY: RT Дмитрий(R) June 02, 2023 3:24 PM documented in this encounter [facility] 06-02-2023 History of Present illness Narrative 1. Type 2 diabetes mellitus without retinopathy (HCC) Risk of diabetic changes and vision loss can be minimized by tight control of blood sugar, blood pressure, and cholesterol levels. Educated patient to continue care with primary care doctor and/or fan mail editor to maintain optimum levels as they are [...] 2023 2:33 PM documented in this encounter [facility] 05-25-2023 Miscellaneous Notes Gabapentin renewed. Patient said [...] Ruby Benítez LPN. documented in this encounter [facility] 05-22-2023 Miscellaneous Notes Pt saw Dr. Holden [...] 300 mg capsule documented in this encounter [facility] 05-22-2023 Miscellaneous Notes Metoprolol renewed. Patient has [...] you. Maxine Loomis. documented in this encounter [facility] 05-19-2023 Miscellaneous Notes Pantoprazole renewed for Powers's esophagus Patient requesting prescription be sent to [facility] pharmacy not [facility] pharmacy through My Chart message. Patient [...] Dana Adkins RN. documented in this encounter [facility] 05-08-2023 Instructions Radha Andersen APRN.CNP - 05/08/2023 2:24 PM EST PLAN AND RECOMMENDATIONS: Increase fiber daily Avoid simple, highly processed carbohydrates as much as possible Compression stockings Follow up Dr Gallardo Echocardiogram in our office CONTACT INFORMATION: Radha Andersen APRN.CNP Cardiology Nurse Practitioner Section of Regional Cardiology [place] include [facility] beds at the [facility] Dept of Cardiovascular Medicine [facility] Heart and Vascular [place] [address] [place] [address] Office Office documented in this encounter [facility] 05-08-2023 History of Present illness Narrative Images from the original note were not included. Heart and Vascular [place] Vu [facility] Department of Cardiovascular Medicine SECTION OF CLINICAL CARDIOLOGY OUTPATIENT VISIT DATE May 08, 2023 OUTPATIENT VISIT TYPE ESTABLISHED PRIMARY CARE PHYSICIAN: Santhosh Holden [address] [place] [address] REFERRING PHYSICIAN: No referring provider defined for [...] Powers's esophagus Bipolar 1 disorder (HCC) Dr. rOozco, psychiatry Chronic headaches Coronary-myocardial bridge DDD (degenerative disc disease) Depression 01/05/2015 Essential tremor TK tremor Fibromyalgia GERD (gastroesophageal reflux disease) HTN (hypertension) Hyperlipidemia Hypothyroid Liver fibrosis Mild CAD 08/22/2019 Neuropathy Non-melanoma skin cancer 03/08/2021 Obstructive sleep apnea PTSD (post-traumatic stress disorder) PVD (peripheral vascular disease) ([facility]) Sciatica Shoulder injury Type II or unspecified [...] chin strap (if indicated) and lifetime supplies ([facility]) DX: KRZYSZTOF G47.33 multivit with minerals/lutein (MULTIVITAMIN [...] Regional Cardiology [place] Dept of Cardiovascular Medicine [facility] Heart and Vascular [place] [address] [place] [address] Office Office documented in this encounter [facility] 05-04-2023 Miscellaneous Notes Patient is scheduled in June with Dr. Prince for follow up. Requested Prescriptions Pending Prescriptions Disp Refills carbidopa-levodopa (SINEMET) 25-100 mg per tablet 90 tablet 2 Sig: Take 1 tablet by mouth three times a day. documented in this encounter [facility] 05-04-2023 Miscellaneous Notes Patient has been identified [...] Rx: 02/05/23 #90 w/0. Update pt via uiut once sent. Please advise. Thank you. Dulec Diallo Ma. documented in this encounter [facility] 04-24-2023 Miscellaneous Notes Patient has been identified [...] Flavia Leon Ma. documented in this encounter [facility] 02-19-2023 Miscellaneous Notes Refill(s) request: Requested Prescriptions [...] mg tablet Class: Normal Route: ORAL Order: [id number] E-Prescribing Status: Receipt confirmed by pharmacy (06/26/2020 [...] Center 03/11/2023 12:00 PM Jovanna Prince MD [facility] 03/12/2023 8:00 AM Susanna Schneider MD [facility] 04/07/2023 1:40 PM Santhosh Holden MD [facility] 05/08/2023 2:30 PM Radha Andersen APRN.EPITAXIAL REACTOR TECHNICIAN [facility] 05/21/2023 1:00 PM Dru Sahu [facility] 06/02/2023 2:15 PM Ros Ortiz OD [facility] Appointment scheduled: No follow-up visit currently scheduled. Action taken: MyChart message sent - patient not seen since 07/2020 and requesting a refill of postop tylenol. Please call office to speak with office and schedule a visit if refill is needed. Elle Strong RN February 19, 2023 2:12 PM documented in this encounter [facility] 02-18-2023 Miscellaneous Notes Rx request is being addressed in another encounter. Jairon Schneider CRIBBER documented in this encounter [facility] 02-18-2023 Miscellaneous Notes Rs request is being addressed in another encounter. Jairon Schneider CRIBBER documented in this encounter [facility] 02-18-2023 Miscellaneous Notes Last refill Lamictal 06/08/17 Qty: 60 with 5 refills Last refill metformin 11/26/22 Qty: 270 with 1 refill Last refill gabapentin 300 mg 11/19/22 Qty: 90 with 2 refills ELVIN 12/05/22 NOV 04/07/23 Jairon Schneider CRIBBER documented in this encounter [facility] 02-06-2023 Note HNO ID: [id number] Author: Farhat Gallardo, DO Service: ? Author Type: Physician Type: Progress Notes Filed: 02/06/2023 3:50 PM Note Text: [facility] SECTION OF REGIONAL CARDIOLOGY [facility] OUTPATIENT VISIT DATE February 06, 2023 PRIMARY CARE PHYSICIAN: Santhosh Holden [address] [place] [address] HISTORY OF PRESENT ILLNESS: Ms. Shanks is [...] TRANSORAL DIAGNOSTIC 01/10/2015 (more content not included)... [facility] 02-06-2023 History of Present illness Narrative Images from the original note were not included. [facility] SECTION OF REGIONAL CARDIOLOGY [facility] OUTPATIENT VISIT DATE February 06, 2023 PRIMARY CARE PHYSICIAN: Santhosh Holden [address] [place] [address] HISTORY OF PRESENT ILLNESS: Ms. Shanks is [...] (post-traumatic stress disorder) PVD (peripheral vascular disease) ([facility]) Sciatica Shoulder injury Type II or unspecified [...] chin strap (if indicated) and lifetime supplies ([facility]) DX: KRZYSZTOF G47.33 multivit with minerals/lutein (MULTIVITAMIN [...] by direct comparison. Farhat Gallardo DO, FACC, [facility] Drum Operator, [facility] Ambulatory Cardiology Drum Operator, [facility] Cardiac Rehabilitation Drum Operator, [facility] Cardiac Rehabilitation Drum Operator, [facility] Drum Operator, [facility] Ambulatory Cardiology Clinical Superintendent Sales Profressor of Medicine, [facility] Staff Vamp Marker, [facility] Department of Cardiovascular Medicine/Heart and Vascular [place], [facility] Please note: This note has been produced using speech recognition software and may contain errors related to that system including herminia, punctuation, spelling, words, gender and phrases that may be inappropriate. documented in this encounter [facility] 02-05-2023 Miscellaneous Notes Pt requesting medication below to go to [facility]. Was sent to the wrong pharmacy. Patient has been identified by name and date of : Yes Requested Prescriptions Pending Prescriptions Disp Refills lisinopril (ZESTRIL) 5 mg tablet 90 tablet 0 Sig: Take 1 tablet by mouth once daily. RX INSTRUCTIONS: Patient aware RX will be sent to pharmacy. No need to notify patient. Vicki Barahona documented in this encounter [facility] 01-19-2023 Miscellaneous Notes Patient has been identified [...] Elle Andrews MA documented in this encounter [facility] 12-11-2022 History of Present illness Narrative HISTORY [...] chin strap (if indicated) and lifetime supplies ([facility]) DX: KRZYSZTOF G47.33 COMPOUNDED PRESCRIPTION Diabetic shoes [...] Sade Alston PA-C documented in this encounter [facility] 12-11-2022 Nurse Note REVIEW OF SYSTEMS: General: [...] Elisha Tang LPN documented in this encounter [facility] 12-05-2022 History of Present illness Narrative Patient [...] and was to go down to [facility] to get diabetic shoes. Patient would benefit [...] chin strap (if indicated) and lifetime supplies ([facility]) DX: KRZYSZTOF G47.33 multivit with minerals/lutein (MULTIVITAMIN [...] (post-traumatic stress disorder) PVD (peripheral vascular disease) ([facility]) Sciatica Shoulder injury Type II or unspecified [...] GENERAL SURGERY 18. Coronary artery disease involving [place] heart without angina pectoris, unspecified vessel or [...] DIFFERENTIATION Santhosh Holden documented in this encounter [facility] 12-05-2022 History of Past i llness Narrative [...] of this encounter (statuses as of 12/06/2022) [facility] History of Past illness Narrative* Problem Noted [...] of this encounter (statuses as of 12/09/2022) [facility] History of Past illness Narrative* Problem Noted [...] of this encounter (statuses as of 12/24/2022) [facility] History of Past illness Narrative* Problem Noted [...] of this encounter (statuses as of 01/19/2023) [facility] History of Past illness Narrative* Problem Noted [...] of this encounter (statuses as of 02/05/2023) [facility] History of Past illness Narrative* Problem Noted [...] of this encounter (statuses as of 02/06/2023) [facility] History of Past illness Narrative* Problem Noted [...] of this encounter (statuses as of 02/18/2023) [facility] History of Past illness Narrative* Problem Noted [...] of this encounter (statuses as of 02/18/2023) [facility] of Past illness Narrative* Problem Noted [...] of this encounter (statuses as of 02/18/2023) [facility] of Past illness Narrative* Problem Noted [...] of this encounter (statuses as of 02/19/2023) [facility] of Past illness Narrative* Problem Noted [...] of this encounter (statuses as of 04/24/2023) [facility] of Past illness Narrative* Problem Noted [...] of this encounter (statuses as of 05/04/2023) [facility] of Past illness Narrative* Problem Noted [...] of this encounter (statuses as of 05/04/2023) [facility] of Past illness Narrative* Problem Noted [...] of this encounter (statuses as of 05/08/2023) [facility] of Past illness Narrative* Problem Noted [...] of this encounter (statuses as of 05/19/2023) [facility] of Past illness Narrative* Problem Noted [...] of this encounter (statuses as of 05/22/2023) [facility] of Past illness Narrative* Problem Noted [...] of this encounter (statuses as of 05/22/2023) [place] [address]15-[address]23 History of Past illness Narrative* Problem Noted [...] of this encounter (statuses as of 05/26/2023) [address]15-[address]23 History of Past illness Narrative* Problem [...] of this encounter (statuses as of 05/26/2023) [facility] History of Past illness Narrative* Problem Noted [...] of this encounter (statuses as of 06/03/2023) [address]15-[address]23 History of Past illness Narrative* Problem [...] of this encounter (statuses as of 06/04/2023) [facility] Miscellaneous Notes* Telephone Encounter - Jacqueline Fontaine [...] if so place orders. [facility] History of Present illness Narrative* Ros Ortiz, [...] 01, 2022 3:17 PM [facility] Miscellaneous Notes* Telephone Encounter - Amina Burt OA - 11/27/2022 9:25 AM EDT This patient would like a refill for Systane ultra. The medication is pending to be signed. Please advise. OZ Horne [facility] Miscellaneous Notes* Telephone Encounter - J Luis [...] J Luis LOPEZ PA-C [facility] Instructions* Patient Instructions* Dru Sahu - 11/19/2022 [...] (or decreased sensation in your feet) a underground production foreperson should always cut your toenails. Be Careful [...] Go to your health care provider or underground production foreperson to treat these conditions. [facility] History of Present illness Narrative* Dru Sahu [...] (H) 4.3 - 5.6 % Final Comment: [place] Diabetes Association guidelines indicate that patients with [...] (post-traumatic stress disorder) PVD (peripheral vascular disease) ([facility]) Sciatica Shoulder injury Type II or unspecified [...] chin strap (if indicated) and lifetime supplies ([facility]) DX: KRZYSZTOF G47.33 multivit with minerals/lutein (MULTIVITAMIN [...] Pain Hollie Diana LPN documented [facility] Miscellaneous Notes* Telephone Encounter - Ivette Jerome RN - 11/19/2022 9:25 AM EDT Verbal ok given to Jaya with [facility]. Ivette Jerome RN * Telephone Encounter - Santhosh Holden MD - 11/19/2022 9:15 AM EDT Ok * Telephone Encounter - Ivette Jerome RN - 11/19/2022 9:10 AM EDT Jaya with [facility] Pharmacy calls to verify that provider wants both Gabapentin 600 mg and 300 mg prescriptions filled. Jaya requests verbal confirmation be called back to [phone] Holden. Ivette Jerome RN [facility] Miscellaneous Notes* Telephone Encounter - Melissa Cueva [...] advise. Melissa Cueva LPN documented in [facility] encounterSt[facility] Instructions* Patient Instructions* Jovanna Prince MD - [...] 1 03/24/03/24 Week 2 documented [facility] History of Present illness Narrative* Jovanna Prince [...] chin strap (if indicated) and lifetime supplies ([facility]) DX: KRZYSZTOF G47.33 1 Device 0 multivit [...] Prescribed Medication, Discussed with Patient: YES Jovanna Prinec MD [facility] Neurology documented in this encounterSt. [facility]08[facility]23 Miscellaneous Notes* Telephone Encounter - Martha Sanchez [...] Thank you. DAVID Larios documented in [facility] encounterSt[facility]08[facility] History of Present illness Narrative* Teresa Araiza [...] treatment. She verbalized understanding. Report sent to [facility] via [facility]. Teresa Araiza APRN.CHILO documented in [facility] encounterSt[facility]08[facility]23 Miscellaneous Notes* Telephone Encounter - Elle Andrews [...] 12/05/22 Elle Andrews MA documented in this encounterSt[facility]07[facility] History of Present illness Narrative* Hollie Diana [...] chin strap (if indicated) and lifetime supplies ([facility]) DX: KRZYSZTOF G47.33 multivit with minerals/lutein (MULTIVITAMIN [...] surgery. Dru Sahu, BRITTNY Podiatry [address] [facility] [address] Dept: [phone] Dept * Sade Rodriguez RN - 10/15/2022 [...] pain, anddiabetic foot exam. documented in this encounterSt. [facility]07-[facility]23 Instructions* Patient Instructions* Dru Sahu - 10/15/2022 2:32 PM EDT Ambulate in post-op shoe Use walker or cane for balance Follow-up xray in 1 month documented in this encounterSt. [facility]07-[facility] History of Present illness Narrative* Aranza Yoon [...] 15, 2022 1:31 PM documented in this encounterSt[facility]07[facility]23 Miscellaneous Notes* Telephone Encounter - Brittany Joshua Ma - 09/30/2022 10:36 AM EDT Images from the original note were not included. PA approved * Telephone Encounter - Brittany Joshua Ma - 09/30/2022 10:29 AM EDT Received fax PA for [employer] thyroid Prior Authorization has been completed online at [employer] for W[employer]ER POL[employer]ER thyroid, will await response. [id number] Please keep encounter open until final decision has been received and documented from insurance company. Brittany Joshua MA documented in this encounterSt[facility]07-[facility]-2023 Miscellaneous Notes* Telephone Encounter - Nanette Katz [...] you. Nanette Katz LPN documented in this encounterSt. [facility]06-30-2023 Miscellaneous Notes* Telephone Encounter - Erum Lopez RN - 09/19/2022 10:17 AM EDT Rx renewal declined. Not appropriate. ELVIN 08/16/20 post op. Erum Lopez RN September 19, 2022 10:19 AM documented in this encounterSt. [facility]06[facility]27-2023 Miscellaneous Notes* Telephone Encounter - Nanette Katz [...] you. Nanette Katz LPN documented in this encounterSt. [facility]06-14-2023 Miscellaneous Notes* Telephone Encounter - Rebecca Britton - 09/03/2022 10:52 AM EDT 3rd attempt to reach patient to check in and follow up on her message. [phone] voicemail box not set up; cannot leave message. Patient has read [employer] message. * Telephone Encounter - Rebecca Britton - 08/29/2022 12:03 PM EDT 2nd attempt to reach patient to check in and follow up on her message. [phone] voicemail box not set up; cannot leave message. * Telephone Encounter - Radha Cagle RN - 08/27/2022 2:02 PM EDT Called patient to check in and follow up on her message. [phone] voicemail box not set up; cannot leave message. documented in this encounterSt[facility]06-[facility]-2023 Miscellaneous Notes* Telephone Encounter - Pina Springer [...] patient. Pina Springer LPN documented in this encounterSt. [facility] Hospital05-16-2023 Miscellaneous Notes* Telephone Encounter - Elle Andrews [...] 12/05/22 Elle Andrews MA documented in this encounterSt[facility]05-[facility]-2023 Miscellaneous Notes* Telephone Encounter - Nanette Katz [...] you. Nanette Katz LPN documented in this [facility]04-27-2023 Miscellaneous Notes* Telephone Encounter - Melissa Cueva [...] advise. Melissa Cueva LPN documented in this encounterSt. [facility]04-[facility]-2023 Miscellaneous Notes* Telephone Encounter - Mayco Valladares LPN - 06/23/2022 9:35 AM EDT Patient phones requesting refills as follows: Requested Prescriptions Pending Prescriptions Disp Refills gabapentin (NEURONTIN) 300 mg capsule 90 capsule 2 Sig: Take 1 capsule by mouth three times daily for 30 days. ELVIN 05/29/22 NOV 12/05/22 Please review and advise. Mayco Valladares LPN documented in this [address]03-2023 Miscellaneous Notes* Telephone Encounter - Mayco Valladares LPN - 06/23/2022 9:34 AM EDT Patient phones requesting refills as follows: Requested Prescriptions Pending Prescriptions Disp Refills ferrous sulfate 325 mg (65 mg iron) tablet 60 tablet 5 Sig: Take 1 tablet by mouth twice daily with meals. ELVIN 05/29/22 NOV 12/05/22 Please review and advise. Mayco Valladares LPN documented in this encounterSt. [facility] Hospital03-17-2023 Miscellaneous Notes* Telephone Encounter - Dulce Diallo Ma - 06/06/2022 12:04 PM EDT [employer] message sent to pt notifying her of [...] lipids in three months documented in this encounterSt. Charles Hospital03-17-2023 Miscellaneous Notes* Letter - Mammography Coordinator - 06/06/2022 10:56 AM EDT June 10, 2022 PID: [id number] Inés Shanks [id number] [place] [id number] Dear Ms. Shanks, We are pleased to [...] report will be kept on file at [facility] as part of your permanent medical record and are available for your continuing care. Thank you for allowing us to help in meeting your health care needs. Sincerely, Dr. Bassett Interpreting Radiologist [facility] (Normal over 40) documented in this encounterSt. Charles Hospital03-17-2023 History of Present illness Narrative* Holli Sands [...] 06, 2022 9:35 AM documented in this encounterSt. Charles Hospital03-10-2023 History of Present illness Narrative* Ros Ortiz, OD - 05/30/2022 3:08 PM EST 1. Type 2 diabetes mellitus without retinopathy (HCC) Risk of diabetic changes and vision loss can be minimized by tight control of blood sugar, blood pressure, and cholesterol levels. Educated patient to continue care with primary care doctor and/or fan mail editor to maintain optimum levels as they are [...] 30, 2022 3:08 PM documented in this encounterSt. Charles Hospital03-10-2023 Instructions* Patient Instructions* Ros Ortiz, OD - 05/30/2022 3:08 PM EST Use Systane Complete or Refresh Relieva 2-3 times daily Use Systane, Refresh or Blink gel nightly before bed in both eyes documented in this encounterSt. Charles Hospital03-10-2023 Miscellaneous Notes* Telephone Encounter - Flavia Leon [...] patient. Flavia Leon Ma documented in this encounterSt. Charles Hospital03-09-2023 History of Present illness Narrative* Aranza Yoon [...] 29, 2022 11:21 AM documented in this encounterSt. Charles Hospital03-09-2023 History of Present illness Narrative* Santhosh Holden [...] Abs Lymph 1.00 - 4.00 k/uL 2.57 Sunflower% % 5.1 Abs Sunflower <0.87 k/uL 0.38 Eosin% % 1.2 Abs [...] chin strap (if indicated) and lifetime supplies ([facility]) DX: KRZYSZTOF G47.33 multivit with minerals/lutein (MULTIVITAMIN [...] (post-traumatic stress disorder) PVD (peripheral vascular disease) ([facility]) Sciatica Shoulder injury Type II or unspecified [...] immunization - ICD9: V03.89, ICD10: Z23 - CITIA COVID-19 BIVALENT BOOSTER VACCINE, AGE 12+ YR [...] Z23 - PNEUMOCOCCAL VACCINE (PREVNAR 20) - [employer] COVID-19 BIVALENT BOOSTER VACCINE, AGE 12+ YR Santhosh Holden documented in this encounterSt. Charles Hospital03-03-2023 Miscellaneous Notes* Telephone Encounter - Pina Springer LPN - 05/23/2022 12:54 PM EST Scheduled 05/29/22 documented in this encounterSt. Charles Hospital02-16-2023 Miscellaneous Notes* Telephone Encounter - Trina Ramirez LPN - 05/08/2022 3:14 PM EST Attempted to reach pt by phone without success. Sent a Whatever message with information listed below. Trina Ramirez [...] advise. Mayco Valladares LPN documented in this encounterSt. Charles Hospital02-14-2023 Miscellaneous Notes* Telephone Encounter - Jaradzhen Robledo APRN.CNP - 05/06/2022 11:15 AM EST The following approved medication requests have been transmitted electronically. Requested Prescriptions Pending Prescriptions Disp Refills lisinopril (ZESTRIL, PRINIVIL) 5 mg tablet 90 tablet 0 Sig: Take 1 tablet by mouth once daily. Jarad Robledo APRN.CNP * Telephone Encounter - Radha Benavides Pss - 05/06/2022 10:44 AM EST [...] advise. Radha Benavides Pss documented in this encounterSt. Charles Hospital02-06-2023 Miscellaneous Notes* Telephone Encounter - Ivette Jerome [...] you. Ivette Jerome RN documented in this encounterSt. Charles Hospital01-04-2023 Miscellaneous Notes* Telephone Encounter - Mayco Valladares LPN - 03/26/2022 11:11 AM EST Patient phones requesting refills as follows: Requested Prescriptions Pending Prescriptions Disp Refills gabapentin (NEURONTIN) 300 mg capsule 90 capsule 2 Sig: Take 1 capsule by mouth three times daily for 30 days. ELVIN 10/07/21 NOV 04/16/22 Please review and advise. Mayco Valladares LPN documented in this encounterSt. Charles Hospital12-05-2022 History of Present illness Narrative* Dru Sahu [...] (H) 4.3 - 5.6 % Final Comment: English Diabetes Association guidelines indicate that patients with [...] (post-traumatic stress disorder) PVD (peripheral vascular disease) ([facility]) Sciatica Shoulder injury Type II or unspecified [...] chin strap (if indicated) and lifetime supplies ([facility]) DX: KRZYSZTOF G47.33 COMPOUNDED PRESCRIPTION Diabetic shoes [...] to left 5th toe. documented in this encounterSt. Charles Hospital11-15-2022 Miscellaneous Notes* Telephone Encounter - Trina Ramirez LPN - 02/04/2022 4:13 PM EST Sent Whatever message asking pt to stop in and [...] Trina Ramirez LPN documented in this encounterCleveland [id number] Miscellaneous Notes* Telephone Encounter - Suzanne Mathews - 01/31/2022 4:10 PM EST Patient sent My Chart message requesting the following refill. Requested Prescriptions Pending Prescriptions Disp Refills rosuvastatin (CRESTOR) 5 mg tablet 90 tablet 1 Sig: Take 1 tablet by mouth daily at bedtime. Patient last appointment: 10/07/2021 Patient Phone numbers: [phone] (home) Request is for script(s) to be escript to pharmacy. Suzanne Mathews documented in this encounterSt. Charles Hospital11-10-2022 Miscellaneous Notes* Telephone Encounter - Sade Vogt [...] you. Sade Vogt RN documented in this encounterSt. Charles Hospital11-04-2022 History of Present illness Narrative* Dru Sahu [...] chin strap (if indicated) and lifetime supplies ([facility]) DX: KRZYSZTOF G47.33 COMPOUNDED PRESCRIPTION Diabetic shoes [...] shoe, FELICIA and walker. documented in this encounterSt. Charles Hospital10-28-2022 Instructions* Patient Instructions* Dru Sahu - 01/17/2022 1:17 PM EDT Continue to keep the toe bandaged Keep it clean and dry Ok to remove bandage in 3 days. Apply guaze, adaptic and felicia Call if any issues arise Continue with post-op shoe Plan for suture removal next week documented in this encounterSt. Charles Hospital10-28-2022 History of Present illness Narrative* Dru Jeffriesjennifer [...] chin strap (if indicated) and lifetime supplies ([facility]) DX: KRZYSZTOF G47.33 COMPOUNDED PRESCRIPTION Diabetic shoes [...] Pain Hollie Diana LPN documented in this encounterSt. Charles Hospital10-21-2022 History of Present illness Narrative* Hollie Diana [...] (post-traumatic stress disorder) PVD (peripheral vascular disease) ([facility]) Sciatica Shoulder injury Type II or unspecified [...] chin strap (if indicated) and lifetime supplies ([facility]) DX: KRZYSZTOF G47.33 COMPOUNDED PRESCRIPTION Diabetic shoes [...] of left calf. Negative Yoon's test. Assessment: (Z98.440) Post-operative state (primary encounter diagnosis) Plan: Bandage [...] toe. Hollie Diana LPN documented in this encounterSt. Charles Hospital10-17-2022 Miscellaneous Notes* Telephone Encounter - Dru Sahu - 01/06/2022 7:50 PM EDT I attempted to contact patient to see how she was doing s/p derotational arthroplasty. No answer. Itried leaving message but her voice mail is not yet set up Dru Sahu DPM documented in this encounterSt. Charles Hospital10-12-2022 History of Present illness Narrative* Dru Sahu [...] (H) 4.3 - 5.6 % Final Comment: English Diabetes Association guidelines indicate that patients with [...] chin strap (if indicated) and lifetime supplies ([facility]) DX: KRZYSZTOF G47.33 cyanocobalamin, vitamin B-12, (VITAMIN [...] Continuous Intervention/Comfort measure: Medication documented in this encounterSt. Charles Hospital10-10-2022 Miscellaneous Notes* Telephone Encounter - Pina Springer [...] patient. Elle Nelson Pss documented in this encounterSt. Charles Hospital09-28-2022 History of Present illness Narrative* Aranza Yoon [...] 18, 2021 9:33 AM documented in this encounterSt. Charles Hospital09-27-2022 Miscellaneous Notes* Telephone Encounter - Mayco Valladares LPN - 12/17/2021 12:03 PM EDT Patient phones requesting refills as follows: Requested Prescriptions Pending Prescriptions Disp Refills thyroid, pork, (ARMOUR THYROID) 60 mg 60 tablet 5 Sig: Take 1 tablet by mouth twice daily. [facility] 10/07/21 04/16/22 Please review and advise. Mayco Valladares LPN documented in this encounterSt. Charles Hospital09-09-2022 Miscellaneous Notes* Telephone Encounter - Mayco Valladares [...] patient. Elle Nelson Pss documented in this encounterSt. Charles Hospital09-06-2022 Miscellaneous Notes* Telephone Encounter - Jacqueline Fontaine Ma - 11/26/2021 2:25 PM EDT Last office visit: 10/07/21 F/u scheduled: 04/16/21 Jacqueline Fontaine Ma * Telephone Encounter - Maxien Loomis - 11/26/2021 11:53 AM EDT Patient has been identified by name and date of : Yes Requested Prescriptions Pending Prescriptions Disp Refills gabapentin (NEURONTIN) 600 mg tablet 270 tablet 1 Sig: Take 1 tablet by mouth three times daily for 180 days. RX INSTRUCTIONS: Patient aware RX will be sent to pharmacy. No need to notify patient. Maxine Loomis documented in this encounterSt. Charles Hospital09-01-2022 Miscellaneous Notes* Telephone Encounter - Radha Benavides [...] advise. Radha Benavides Pss documented in this encounterSt. Charles Hospital08-11-2022 Miscellaneous Notes* Telephone Encounter - Jacqueline Fontaine [...] notify patient. Maxine Loomis documented in this encounterSt. Charles Hospital08-01-2022 Miscellaneous Notes* Telephone Encounter - Saumya Vargas [...] take the statin wants rx sent to [facility] Retail pharmacy. Aware WAFER POLISHER is out of office until 10/21. * [...] Mayco Valladares LPN * Telephone Encounter - Suamya Vargas APRN.CNP - 10/14/2021 9:20 AM EDT [...] in. Saumya Vargas APRN.CNP documented in this encounterSt. Charles Hospital07-18-2022 Instructions* Patient Instructions* Saumya Vargas APRN.CNP - 10/07/2021 2:05 PM EDT 1. Return for fasting labs. 2. Continue the same medications. 3. Recheck in 6 months. documented in this encounterSt. Charles Hospital07-18-2022 History of Present illness Narrative* Saumya Vargas APRN.CNP - 10/07/2021 1:42 PM EDT This is a 56 year old female who presents today with: Patient presents with: Physical HISTORY OF PRESENT ILLNESS: Inés Oerllana Workman is a 56 year old female. [...] chin strap (if indicated) and lifetime supplies ([facility]) DX: KRZYSZTOF G47.33 multivit with minerals/lutein (MULTIVITAMIN [...] 2 diabetes mellitus without complication, unspecified whether senior living insulin use (HCC) -ICD9: 250.00, ICD10: E11.9 [...] improvement. Saumya Vargas APRN.CHILO documented in this encounterSt. Charles Hospital07-15-2022 Instructions* Patient Instructions* Dru Sahu - 10/04/2021 11:29 AM EDT Ulcer is healed Use betadine because of maceration. Use betadine until maceration (white discoloratoin) improves Use toe cap to prevent rubbing documented in this encounterSt. Charles Hospital07-15-2022 History of Present illness Narrative* Dru Sahu [...] 5.3 4.3 - 5.6 % Final Comment: English Diabetes Association guidelines indicate that patients with [...] chin strap (if indicated) and lifetime supplies ([facility]) DX: KRZYSZTOF G47.33 multivit with minerals/lutein (MULTIVITAMIN [...] unchanged from previous visit. Non-Invasive Vascular Laboratory [facility] Lower Extremity Arterial Physiology Study Bilateral/Complete [...] Normal at rest. Technologist: Ingrid Holder RVT, [facility] [[email or web address]] Ordering physician: DRU SAHU Interpreting physician: Evin [...] - Follow Up, Ulcer documented in this encounterSt. Charles Hospital07-14-2022 Miscellaneous Notes* Telephone Encounter - Erlinda Lisa - 10/03/2021 3:58 PM EDT Inés Orelalna Workman is calling Santhosh Holden MD today, she is requesting all necessary lab orders areplaced for her upcoming appointment on 10/07/21. She would need an answer today, since tomorrow is already Thursday. Patient has been identified by name and birthdate. Duration of symptoms: N/A Person calling: self Call patient at: on cell [phone] (home) [phone] (cell) Was an appointment scheduled: No Closing statement: Results or non-symptom based questions: [facility], your call will be returned within the next business day. Erlinda Lisa documented in this encounterSt. Charles Hospital07-14-2022 Miscellaneous Notes* Telephone Encounter - Erlinda Crenshaw [...] patient. Erlinda Crenshaw Pss documented in this encounterSt. Charles Hospital07-11-2022 Miscellaneous Notes* Telephone Encounter - Carol Robison [...] you. Trina Ramirez LPN documented in this encounterSt. Charles Hospital06-18-2022 Miscellaneous Notes* Telephone Encounter - Chichi Lisa - 09/07/2021 9:09 AM EDT 2nd attempt unable to leave a message to schedule physical with PCP or care team assistant for future refills in the next 30 [...] There are no 40 min slots for [place] available before the 30 day time period, is there anyway the patient could see the WAFER POLISHER? * Telephone Encounter - Mayco Valladares LPN [...] patient. Vicki Hamm [employer] documented in this encounterSt. Charles Hospital05-23-2022 Miscellaneous Notes* Telephone Encounter - Santhosh Holden MD - 08/12/2021 1:58 PM EDT She needs check up. * Telephone Encounter - J Luis Cavazos RN - 08/12/2021 1:51 PM EDT Bernardo- [facility] Pharmacy- reports patient is diabetic and not on a statin. Asking pcp, is there a reasonpatient is not on a statin. Please advise Bernardo. documented in this encounterSt. Charles Hospital05-20-2022 Miscellaneous Notes* Telephone Encounter - Erum Mata [...] AM EDT ----- Message from Teresa Araiza APRN.EPITAXIAL REACTOR TECHNICIAN sent at 08/08/2021 8:40 AM EDT ----- Please advise patient of negative test result (result not viewed in [facility] documented in this encounterSt. Charles Hospital05-20-2022 Miscellaneous Notes* Telephone Encounter - Elle Fairbanks [...] also sent * Telephone Encounter - Jose Wihte Pss - 08/02/2021 11:27 AM EDT 1st [...] patient. Vicki Hamm [employer] documented in this encounterSt. Charles Hospital05-20-2022 Instructions* Patient Instructions* Dru Sahu - 08/09/2021 [...] (or decreased sensation in your feet) a underground production foreperson should always cut your toenails. Be Careful [...] Go to your health care provider or underground production foreperson to treat these conditions. documented in this encounterSt. Charles Hospital05-20-2022 History of Present illness Narrative* Dru Sahu [...] Date Anxiety Powers's esophagus Bipolar 1 disorder ([facility]) Dr. Orozco, psychiatry Chronic headaches Coronary-myocardial bridge DDD (degenerative disc disease) Depression 01/05/2015 Essential tremor TK tremor Fibromyalgia GERD (gastroesophageal reflux disease) HTN (hypertension) Hyperlipidemia Hypothyroid Liver fibrosis Mild CAD 08/22/2019 Neuropathy Non-melanoma skin cancer 03/08/2021 Obstructive sleep apnea PTSD (post-traumatic stress disorder) PVD (peripheral vascular disease) ([facility]) Sciatica Shoulder injury Type II or unspecified [...] 01/10/2015 EGD ESOPHAGOGASTRODUODENOSCOPY TRANSORAL DIAGNOSTIC 01/10/2016 EGD ([facility]) GASTRIC BYPASS HX 03/2016 gastric sleeve HYSTERECTOMY, [...] Objective: Patient presents to clinic ambulating in [facility] Constitutional: Pt is a well developed 55 [...] 5thtoes rub causing ulcer. documented in this encounterSt. Charles Hospital05-20-2022 History of Present illness Narrative* RT Tisha(R) [...] 09, 2021 8:13 AM documented in this encounterSt. Charles Hospital05-16-2022 History of Present illness Narrative* Poonam Garrido PA-C - 08/05/2021 10:44 AM EDT This note was created using [employer]. Subjective Inés Shanks is a 55 year old female. HPI Patient presents with cough and congestion for 2 weeks. She does have a frontal headache in her forehead as well. No fever. She states that she is vaccinated for COVID-19. She denies vomiting or diarrhea. She states during a coughing fit she does feel short of breath. She has tried NyQuil [id number]. She is a former smoker. Denies history [...] Date Anxiety Powers's esophagus Bipolar 1 disorder ([facility]) Dr. Orozco, psychiatry Chronic headaches Coronary-myocardial bridge DDD (degenerative disc disease) Depression 01/05/2015 Essential tremor TK tremor Fibromyalgia GERD (gastroesophageal reflux disease) HTN (hypertension) Hyperlipidemia Hypothyroid Liver fibrosis Mild CAD 08/22/2019 Neuropathy Non-melanoma skin cancer 03/08/2021 Obstructive sleep apnea PTSD (post-traumatic stress disorder) PVD (peripheral vascular disease) ([facility]) Sciatica Shoulder injury Type II or unspecified [...] chin strap (if indicated) and lifetime supplies ([facility]) DX: KRZYSZTOF G47.33 1 Device 0 multivit [...] CORONAVIRUS Poonam Garrido PA-C documented in this encounterSt. Charles Hospital05-16-2022 History of Present illness Narrative* Aranza Yoon [...] 05, 2021 9:13 AM documented in this encounterSt. Charles Hospital05-05-2022 Miscellaneous Notes* Telephone Encounter - Brittany Joshua Ma - 07/25/2021 12:23 PM EDT Reviewed Covermymeds and states [facility] Tried calling patient but no answer or available voicemail. Patient will need to call [facility] and make sure information is updated and accurate. Brittany Joshua Ma * Telephone Encounter - Brittany Joshua Ma - 07/04/2021 10:15 AM EDT Prior Authorization has been completed online at [facility] for [employer] , will await response. [id number] Please keep encounter open until final decision has been received and documented from insurance company. Brittany Joshua MA documented in this encounterSt. Charles Hospital04-12-2022 Miscellaneous Notes* Telephone Encounter - Chichi Sena [...] you. Chichi Sena RN documented in this encounterSt. Charles Hospital12-17-2021 History of Past illness Narrative* Problem Noted [...] of this encounter (statuses as of 01/26/2023) [facility] of Past illness Narrative* Problem Noted [...] of this encounter (statuses as of 01/26/2023) [facility] of Past illness Narrative* Problem Noted [...] of this encounter (statuses as of 01/26/2023) [facility] History of Present illness Narrative* Suzy Johnson [...] 24, 2020 4:40 PM documented in this encounterSt. Charles Hospital11-21-2018 History of Past illness Narrative* Problem Noted Date Resolved Date Shoulder injury 02/10/2018 05/30/2020 Impingement syndrome of left shoulder 10/23/2017 05/30/2020 Acute pain of left shoulder 10/22/201705/21 Morbid obesity due to excess calories 03/31/2016 07/04/2016 Type 2 diabetes mellitus wit h diabetic neuropathy, without long-term current use of insulin 01/08/2016 07/04/2016 documented as of this encounter (statuses as of 07/02/2021) [facility] of [facility] illness Narrative* Problem Noted Date Resolved Date Shoulder injury 02/10/2018 05/30/2020 Impingement syndrome of left shoulder 10/23/2017 05/30/2020 Acute pain of left shoulder 10/22/201705/21 Morbid obesity due to excess calories 03/31/2016 07/04/2016 Type 2 diabetes mellitus wit h diabetic neuropathy, without long-term current use of insulin 01/08/2016 07/04/2016 documented as of this encounter (statuses as of 07/25/2021) [facility] illness Narrative* Problem Noted Date Resolved Date Shoulder injury 02/10/2018 05/30/2020 Impingement syndrome of left shoulder 10/23/2017 05/30/2020 Acute pain of left shoulder 10/22/201705/21 Morbid obesity due to excess calories 03/31/2016 07/04/2016 Type 2 diabetes mellitus wit h diabetic neuropathy, without long-term current use of insulin 01/08/2016 07/04/2016 documented as of this encounter (statuses as of 08/05/2021) [facility] Narrative* Problem Noted Date Resolved Date Shoulder injury 02/10/2018 05/30/2020 Impingement syndrome of left shoulder 10/23/2017 05/30/2020 Acute pain of left shoulder 10/22/201705/21 Morbid obesity due to excess calories 03/31/2016 07/04/2016 Type 2 diabetes mellitus wit h diabetic neuropathy, without long-term current use of insulin 01/08/2016 07/04/2016 documented as of this encounter (statuses as of 08/09/2021) [facility] Narrative* Problem Noted Date Resolved Date Shoulder injury 02/10/2018 05/30/2020 Impingement syndrome of left shoulder 10/23/2017 05/30/2020 Acute pain of left shoulder 10/22/201705/21 Morbid obesity due to excess calories 03/31/2016 07/04/2016 Type 2 diabetes mellitus wit h diabetic neuropathy, without long-term current use of insulin 01/08/2016 07/04/2016 documented as of this encounter (statuses as of 08/09/2021) [facility] Narrative* Problem Noted Date Resolved Date Shoulder injury 02/10/2018 05/30/2020 Impingement syndrome of left shoulder 10/23/2017 05/30/2020 Acute pain of left shoulder 10/22/201705/21 Morbid obesity due to excess calories 03/31/2016 07/04/2016 Type 2 diabetes mellitus wit h diabetic neuropathy, without long-term current use of insulin 01/08/2016 07/04/2016 documented as of this encounter (statuses as of 08/09/2021) [facility] Narrative* Problem Noted Date Resolved Date Shoulder injury 02/10/2018 05/30/2020 Impingement syndrome of left shoulder 10/23/2017 05/30/2020 Acute pain of left shoulder 10/22/201705/21 Morbid obesity due to excess calories 03/31/2016 07/04/2016 Type 2 diabetes mellitus wit h diabetic neuropathy, without long-term current use of insulin 01/08/2016 07/04/2016 documented as of this encounter (statuses as of 08/10/2021) [facility] Narrative* Problem Noted Date Resolved Date Shoulder injury 02/10/2018 05/30/2020 Impingement syndrome of left shoulder 10/23/2017 05/30/2020 Acute pain of left shoulder 10/22/201705/211 Morbid obesity due to excess calories 03/31/2016 07/04/2016 Type 2 diabetes mellitus wit h diabetic neuropathy, without long-term current use of insulin 01/08/2016 07/04/2016 documented as of this encounter (statuses as of 08/12/2021) [facility] Narrative* Problem Noted Date Resolved Date Shoulder injury 02/10/2018 05/30/2020 Impingement syndrome of left shoulder 10/23/2017 05/30/2020 Acute pain of left shoulder 10/22/201705/21 Morbid obesity due to excess calories 03/31/2016 07/04/2016 Type 2 diabetes mellitus wit h diabetic neuropathy, without long-term current use of insulin 01/08/2016 07/04/2016 documented as of this encounter (statuses as of 09/07/2021) [facility] Narrative* Problem Noted Date Resolved Date Shoulder injury 02/10/2018 05/30/2020 Impingement syndrome of left shoulder 10/23/2017 05/30/2020 Acute pain of left shoulder 10/22/201705/21 Morbid obesity due to excess calories 03/31/2016 07/04/2016 Type 2 diabetes mellitus wit h diabetic neuropathy, without long-term current use of insulin 01/08/2016 07/04/2016 documented as of this encounter (statuses as of 10/03/2021) [facility] Narrative* Problem Noted Date Resolved Date Shoulder injury 02/10/2018 05/30/2020 Impingement syndrome of left shoulder 10/23/2017 05/30/2020 Acute pain of left shoulder 10/22/201705/21 Morbid obesity due to excess calories 03/31/2016 07/04/2016 Type 2 diabetes mellitus wit h diabetic neuropathy, without long-term current use of insulin 01/08/2016 07/04/2016 documented as of this encounter (statuses as of 10/03/2021) [facility] Narrative* Problem Noted Date Resolved Date Shoulder injury 02/10/2018 05/30/2020 Impingement syndrome of left shoulder 10/23/2017 05/30/2020 Acute pain of left shoulder 10/22/201705/21 Morbid obesity due to excess calories 03/31/2016 07/04/2016 Type 2 diabetes mellitus wit h diabetic neuropathy, without long-term current use of insulin 01/08/2016 07/04/2016 documented as of this encounter (statuses as of 10/04/2021) [facility] illness Narrative* Problem Noted Date Resolved Date Shoulder injury 02/10/2018 05/30/2020 Impingement syndrome of left shoulder 10/23/2017 05/30/2020 Acute pain of left shoulder 10/22/201705/21 Morbid obesity due to excess calories 03/31/2016 07/04/2016 Type 2 diabetes mellitus wit h diabetic neuropathy, without long-term current use of insulin 01/08/2016 07/04/2016 documented as of this encounter (statuses as of 10/07/2021) [facility]2018 History of Past illness Narrative* Problem Noted Date Resolved Date Shoulder injury 02/10/2018 05/30/2020 Impingement syndrome of left shoulder 10/23/2017 05/30/2020 Acute pain of left shoulder 10/22/201705/21 Morbid obesity due to excess calories 03/31/2016 07/04/2016 Type 2 diabetes mellitus wit h diabetic neuropathy, without long-term current use of insulin 01/08/2016 07/04/2016 documented as of this encounter (statuses as of 10/21/2021) [facility]2018 History of Past illness Narrative* Problem Noted Date Resolved Date Shoulder injury 02/10/2018 05/30/2020 Impingement syndrome of left shoulder 10/23/2017 05/30/2020 Acute pain of left shoulder 10/22/201705/21 Morbid obesity due to excess calories 03/31/2016 07/04/2016 Type 2 diabetes mellitus wit h diabetic neuropathy, without long-term current use of insulin 01/08/2016 07/04/2016 documented as of this encounter (statuses as of 11/01/2021) [facility]2018 History of Past illness Narrative* Problem Noted Date Resolved Date Shoulder injury 02/10/2018 05/30/2020 Impingement syndrome of left shoulder 10/23/2017 05/30/2020 Acute pain of left shoulder 10/22/201705/21 Morbid obesity due to excess calories 03/31/2016 07/04/2016 Type 2 diabetes mellitus wit h diabetic neuropathy, without long-term current use of insulin 01/08/2016 07/04/2016 documented as of this encounter (statuses as of 11/21/2021) [facility] History of Past illness Narrative* Problem Noted Date Resolved Date Shoulder injury 02/10/2018 05/30/2020 Impingement syndrome of left shoulder 10/23/2017 05/30/2020 Acute pain of left shoulder 10/22/201705/21 Morbid obesity due to excess calories 03/31/2016 07/04/2016 Type 2 diabetes mellitus wit h diabetic neuropathy, without long-term current use of insulin 01/08/2016 07/04/2016 documented as of this encounter (statuses as of 11/26/2021) [facility]2018 History of Past illness Narrative* Problem Noted Date Resolved Date Shoulder injury 02/10/2018 05/30/2020 Impingement syndrome of left shoulder 10/23/2017 05/30/2020 Acute pain of left shoulder 10/22/201705/21 Morbid obesity due to excess calories 03/31/2016 07/04/2016 Type 2 diabetes mellitus wit h diabetic neuropathy, without long-term current use of insulin 01/08/2016 07/04/2016 documented as of this encounter (statuses as of 11/29/2021) [facility] History of Past illness Narrative* Problem Noted Date Resolved Date Shoulder injury 02/10/2018 05/30/2020 Impingement syndrome of left shoulder 10/23/2017 05/30/2020 Acute pain of left shoulder 10/22/201705/21 Morbid obesity due to excess calories 03/31/2016 07/04/2016 Type 2 diabetes mellitus wit h diabetic neuropathy, without long-term current use of insulin 01/08/2016 07/04/2016 documented as of this encounter (statuses as of 12/17/2021) [facility] History of Past illness Narrative* Problem Noted Date Resolved Date Shoulder injury 02/10/2018 05/30/2020 Impingement syndrome of left shoulder 10/23/2017 05/30/2020 Acute pain of left shoulder 10/22/2017/ Morbid obesity due to excess calories 03/31/2016 07/04/2016 Type 2 diabetes mellitus wit h diabetic neuropathy, without long-term current use of insulin 01/08/2016 07/04/2016 documented as of this encounter (statuses as of 12/19/2021) [facility]2018 History of Past illness Narrative* Problem Noted Date Resolved Date Shoulder injury 02/10/2018 05/30/2020 Impingement syndrome of left shoulder 10/23/2017 05/30/2020 Acute pain of left shoulder 10/22/2017/ Morbid obesity due to excess calories 03/31/2016 07/04/2016 Type 2 diabetes mellitus wit h diabetic neuropathy, without long-term current use of insulin 01/08/2016 07/04/2016 documented as of this encounter (statuses as of 12/30/2021) [facility] History of Past illness Narrative* Problem Noted Date Resolved Date Shoulder injury 02/10/2018 05/30/2020 Impingement syndrome of left shoulder 10/23/2017 05/30/2020 Acute pain of left shoulder 10/22/201705/21 Morbid obesity due to excess calories 03/31/2016 07/04/2016 Type 2 diabetes mellitus wit h diabetic neuropathy, without long-term current use of insulin 01/08/2016 07/04/2016 documented as of this encounter (statuses as of 01/01/2022) [facility]2018 History of Past illness Narrative* Problem Noted Date Resolved Date Shoulder injury 02/10/2018 05/30/2020 Impingement syndrome of left shoulder 10/23/2017 05/30/2020 Acute pain of left shoulder 10/22/2017/ Morbid obesity due to excess calories 03/31/2016 07/04/2016 Type 2 diabetes mellitus wit h diabetic neuropathy, without long-term current use of insulin 01/08/2016 07/04/2016 documented as of this encounter (statuses as of 01/05/2022) [facility]2018 History of Past illness Narrative* Problem Noted Date Resolved Date Shoulder injury 02/10/2018 05/30/2020 Impingement syndrome of left shoulder 10/23/2017 05/30/2020 Acute pain of left shoulder 10/22/201705/21 Morbid obesity due to excess calories 03/31/2016 07/04/2016 Type 2 diabetes mellitus wit h diabetic neuropathy, without long-term current use of insulin 01/08/2016 07/04/2016 documented as of this encounter (statuses as of 01/06/2022) [facility]2018 History of Past illness Narrative* Problem Noted Date Resolved Date Shoulder injury 02/10/2018 05/30/2020 Impingement syndrome of left shoulder 10/23/2017 05/30/2020 Acute pain of left shoulder 10/22/201705/21 Morbid obesity due to excess calories 03/31/2016 07/04/2016 Type 2 diabetes mellitus wit h diabetic neuropathy, without long-term current use of insulin 01/08/2016 07/04/2016 documented as of this encounter (statuses as of 01/10/2022) [facility] History of Past illness Narrative* Problem Noted Date Resolved Date Shoulder injury 02/10/2018 05/30/2020 Impingement syndrome of left shoulder 10/23/2017 05/30/2020 Acute pain of left shoulder 10/22/201705/21 Morbid obesity due to excess calories 03/31/2016 07/04/2016 Type 2 diabetes mellitus wit h diabetic neuropathy, without long-term current use of insulin 01/08/2016 07/04/2016 documented as of this encounter (statuses as of 01/17/2022) [facility] History of Past illness Narrative* Problem Noted Date Resolved Date Shoulder injury 02/10/2018 05/30/2020 Impingement syndrome of left shoulder 10/23/2017 05/30/2020 Acute pain of left shoulder 10/22/201705/21 Morbid obesity due to excess calories 03/31/2016 07/04/2016 Type 2 diabetes mellitus wit h diabetic neuropathy, without long-term current use of insulin 01/08/2016 07/04/2016 documented as of this encounter (statuses as of 01/27/2022) [facility] History of Past illness Narrative* Problem Noted Date Resolved Date Shoulder injury 02/10/2018 05/30/2020 Impingement syndrome of left shoulder 10/23/2017 05/30/2020 Acute pain of left shoulder 10/22/201705/21 Morbid obesity due to excess calories 03/31/2016 07/04/2016 Type 2 diabetes mellitus wit h diabetic neuropathy, without long-term current use of insulin 01/08/2016 07/04/2016 documented as of this encounter (statuses as of 01/30/2022) [facility]2018 History of Past illness Narrative* Problem Noted Date Resolved Date Shoulder injury 02/10/2018 05/30/2020 Impingement syndrome of left shoulder 10/23/2017 05/30/2020 Acute pain of left shoulder 10/22/2017/ Morbid obesity due to excess calories 03/31/2016 07/04/2016 Type 2 diabetes mellitus wit h diabetic neuropathy, without long-term current use of insulin 01/08/2016 07/04/2016 documented as of this encounter (statuses as of 01/31/2022) [facility]2018 History of Past illness Narrative* Problem Noted Date Resolved Date Shoulder injury 02/10/2018 05/30/2020 Impingement syndrome of left shoulder 10/23/2017 05/30/2020 Acute pain of left shoulder 10/22/201705/21 Morbid obesity due to excess calories 03/31/2016 07/04/2016 Type 2 diabetes mellitus wit h diabetic neuropathy, without long-term current use of insulin 01/08/2016 07/04/2016 documented as of this encounter (statuses as of 02/04/2022) [facility] History of Past illness Narrative* Problem Noted Date Resolved Date Shoulder injury 02/10/2018 05/30/2020 Impingement syndrome of left shoulder 10/23/2017 05/30/2020 Acute pain of left shoulder 10/22/201705/21 Morbid obesity due to excess calories 03/31/2016 07/04/2016 Type 2 diabetes mellitus wit h diabetic neuropathy, without long-term current use of insulin 01/08/2016 07/04/2016 documented as of this encounter (statuses as of 02/24/2022) [facility] History of Past illness Narrative* Problem Noted Date Resolved Date Shoulder injury 02/10/2018 05/30/2020 Impingement syndrome of left shoulder 10/23/2017 05/30/2020 Acute pain of left shoulder 10/22/201705/21 Morbid obesity due to excess calories 03/31/2016 07/04/2016 Type 2 diabetes mellitus wit h diabetic neuropathy, without long-term current use of insulin 01/08/2016 07/04/2016 documented as of this encounter (statuses as of 03/28/2022) [facility]2018 History of Past illness Narrative* Problem Noted Date Resolved Date Shoulder injury 02/10/2018 05/30/2020 Impingement syndrome of left shoulder 10/23/2017 05/30/2020 Acute pain of left shoulder 10/22/201705/21 Morbid obesity due to excess calories 03/31/2016 07/04/2016 Type 2 diabetes mellitus wit h diabetic neuropathy, without long-term current use of insulin 01/08/2016 07/04/2016 documented as of this encounter (statuses as of 04/28/2022) [facility] History of Past illness Narrative* Problem Noted Date Resolved Date Shoulder injury 02/10/2018 05/30/2020 Impingement syndrome of left shoulder 10/23/2017 05/30/2020 Acute pain of left shoulder 10/22/201705/21 Morbid obesity due to excess calories 03/31/2016 07/04/2016 Type 2 diabetes mellitus wit h diabetic neuropathy, without long-term current use of insulin 01/08/2016 07/04/2016 documented as of this encounter (statuses as of 05/06/2022) [facility]2018 History of Past illness Narrative* Problem Noted Date Resolved Date Shoulder injury 02/10/2018 05/30/2020 Impingement syndrome of left shoulder 10/23/2017 05/30/2020 Acute pain of left shoulder 10/22/201705/21 Morbid obesity due to excess calories 03/31/2016 07/04/2016 Type 2 diabetes mellitus wit h diabetic neuropathy, without long-term current use of insulin 01/08/2016 07/04/2016 documented as of this encounter (statuses as of 05/08/2022) [facility]2018 History of Past illness Narrative* Problem Noted Date Resolved Date Shoulder injury 02/10/2018 05/30/2020 Impingement syndrome of left shoulder 10/23/2017 05/30/2020 Acute pain of left shoulder 10/22/201705/21 Morbid obesity due to excess calories 03/31/2016 07/04/2016 Type 2 diabetes mellitus wit h diabetic neuropathy, without long-term current use of insulin 01/08/2016 07/04/2016 documented as of this encounter (statuses as of 05/23/2022) [facility] History of Past illness Narrative* Problem Noted Date Resolved Date Shoulder injury 02/10/2018 05/30/2020 Impingement syndrome of left shoulder 10/23/2017 05/30/2020 Acute pain of left shoulder 10/22/201705/21 Morbid obesity due to excess calories 03/31/2016 07/04/2016 Type 2 diabetes mellitus wit h diabetic neuropathy, without long-term current use of insulin 01/08/2016 07/04/2016 documented as of this encounter (statuses as of 05/29/2022) [facility] History of Past illness Narrative* Problem Noted Date Resolved Date Shoulder injury 02/10/2018 05/30/2020 Impingement syndrome of left shoulder 10/23/2017 05/30/2020 Acute pain of left shoulder 10/22/201705/21 Morbid obesity due to excess calories 03/31/2016 07/04/2016 Type 2 diabetes mellitus wit h diabetic neuropathy, without long-term current use of insulin 01/08/2016 07/04/2016 documented as of this encounter (statuses as of 05/30/2022) [facility] History of Past illness Narrative* Problem Noted Date Resolved Date Shoulder injury 02/10/2018 05/30/2020 Impingement syndrome of left shoulder 10/23/2017 05/30/2020 Acute pain of left shoulder 10/22/201705/21 Morbid obesity due to excess calories 03/31/2016 07/04/2016 Type 2 diabetes mellitus wit h diabetic neuropathy, without long-term current use of insulin 01/08/2016 07/04/2016 documented as of this encounter (statuses as of 05/30/2022) [facility] History of Past illness Narrative* Problem Noted Date Resolved Date Shoulder injury 02/10/2018 05/30/2020 Impingement syndrome of left shoulder 10/23/2017 05/30/2020 Acute pain of left shoulder 10/22/201705/21 Morbid obesity due to excess calories 03/31/2016 07/04/2016 Type 2 diabetes mellitus wit h diabetic neuropathy, without long-term current use of insulin 01/08/2016 07/04/2016 documented as of this encounter (statuses as of 06/06/2022) [facility] History of Past illness Narrative* Problem Noted Date Resolved Date Shoulder injury 02/10/2018 05/30/2020 Impingement syndrome of left shoulder 10/23/2017 05/30/2020 Acute pain of left shoulder 10/22/201705/21 Morbid obesity due to excess calories 03/31/2016 07/04/2016 Type 2 diabetes mellitus wit h diabetic neuropathy, without long-term current use of insulin 01/08/2016 07/04/2016 documented as of this encounter (statuses as of 06/11/2022) [facility] History of Past illness Narrative* Problem Noted Date Resolved Date Shoulder injury 02/10/2018 05/30/2020 Impingement syndrome of left shoulder 10/23/2017 05/30/2020 Acute pain of left shoulder 10/22/201705/21 Morbid obesity due to excess calories 03/31/2016 07/04/2016 Type 2 diabetes mellitus wit h diabetic neuropathy, without long-term current use of insulin 01/08/2016 07/04/2016 documented as of this encounter (statuses as of 06/18/2022) [facility] History of Past illness Narrative* Problem Noted Date Resolved Date Shoulder injury 02/10/2018 05/30/2020 Impingement syndrome of left shoulder 10/23/2017 05/30/2020 Acute pain of left shoulder 10/22/201705/21 Morbid obesity due to excess calories 03/31/2016 07/04/2016 Type 2 diabetes mellitus wit h diabetic neuropathy, without long-term current use of insulin 01/08/2016 07/04/2016 documented as of this encounter (statuses as of 06/23/2022) [facility] History of Past illness Narrative* Problem Noted Date Resolved Date Shoulder injury 02/10/2018 05/30/2020 Impingement syndrome of left shoulder 10/23/2017 05/30/2020 Acute pain of left shoulder 10/22/201705/21 Morbid obesity due to excess calories 03/31/2016 07/04/2016 Type 2 diabetes mellitus wit h diabetic neuropathy, without long-term current use of insulin 01/08/2016 07/04/2016 documented as of this encounter (statuses as of 06/23/2022) [facility] History of Past illness Narrative* Problem Noted Date Resolved Date Shoulder injury 02/10/2018 05/30/2020 Impingement syndrome of left shoulder 10/23/2017 05/30/2020 Acute pain of left shoulder 10/22/201705/21 Morbid obesity due to excess calories 03/31/2016 07/04/2016 Type 2 diabetes mellitus wit h diabetic neuropathy, without long-term current use of insulin 01/08/2016 07/04/2016 documented as of this encounter (statuses as of 07/17/2022) [facility] History of Past illness Narrative* Problem Noted Date Resolved Date Shoulder injury 02/10/2018 05/30/2020 Impingement syndrome of left shoulder 10/23/2017 05/30/2020 Acute pain of left shoulder 10/22/201705/21 Morbid obesity due to excess calories 03/31/2016 07/04/2016 Type 2 diabetes mellitus wit h diabetic neuropathy, without long-term current use of insulin 01/08/2016 07/04/2016 documented as of this encounter (statuses as of 07/29/2022) [facility] History of Past illness Narrative* Problem Noted Date Resolved Date Shoulder injury 02/10/2018 05/30/2020 Impingement syndrome of left shoulder 10/23/2017 05/30/2020 Acute pain of left shoulder 10/22/201705/21 Morbid obesity due to excess calories 03/31/2016 07/04/2016 Type 2 diabetes mellitus wit h diabetic neuropathy, without long-term current use of insulin 01/08/2016 07/04/2016 documented as of this encounter (statuses as of 08/06/2022) [facility] History of Past illness Narrative* Problem Noted Date Resolved Date Shoulder injury 02/10/2018 05/30/2020 Impingement syndrome of left shoulder 10/23/2017 05/30/2020 Acute pain of left shoulder 10/22/201705/21 Morbid obesity due to excess calories 03/31/2016 07/04/2016 Type 2 diabetes mellitus wit h diabetic neuropathy, without long-term current use of insulin 01/08/2016 07/04/2016 documented as of this encounter (statuses as of 08/27/2022) [facility] History of Past illness Narrative* Problem Noted Date Resolved Date Shoulder injury 02/10/2018 05/30/2020 Impingement syndrome of left shoulder 10/23/2017 05/30/2020 Acute pain of left shoulder 10/22/201705/21 Morbid obesity due to excess calories 03/31/2016 07/04/2016 Type 2 diabetes mellitus wit h diabetic neuropathy, without long-term current use of insulin 01/08/2016 07/04/2016 documented as of this encounter (statuses as of 09/03/2022) [facility] History of Past illness Narrative* Problem Noted Date Resolved Date Shoulder injury 02/10/2018 05/30/2020 Impingement syndrome of left shoulder 10/23/2017 05/30/2020 Acute pain of left shoulder 10/22/201705/21 Morbid obesity due to excess calories 03/31/2016 07/04/2016 Type 2 diabetes mellitus wit h diabetic neuropathy, without long-term current use of insulin 01/08/2016 07/04/2016 documented as of this encounter (statuses as of 09/16/2022) [facility] History of Past illness Narrative* Problem Noted Date Resolved Date Shoulder injury 02/10/2018 05/30/2020 Impingement syndrome of left shoulder 10/23/2017 05/30/2020 Acute pain of left shoulder 10/22/201705/21 Morbid obesity due to excess calories 03/31/2016 07/04/2016 Type 2 diabetes mellitus wit h diabetic neuropathy, without long-term current use of insulin 01/08/2016 07/04/2016 documented as of this encounter (statuses as of 09/18/2022) [facility] History of Past illness Narrative* Problem Noted Date Resolved Date Shoulder injury 02/10/2018 05/30/2020 Impingement syndrome of left shoulder 10/23/2017 05/30/2020 Acute pain of left shoulder 10/22/201705/21 Morbid obesity due to excess calories 03/31/2016 07/04/2016 Type 2 diabetes mellitus wit h diabetic neuropathy, without long-term current use of insulin 01/08/2016 07/04/2016 documented as of this encounter (statuses as of 09/19/2022) [facility] History of Past illness Narrative* Problem Noted Date Resolved Date Shoulder injury 02/10/2018 05/30/2020 Impingement syndrome of left shoulder 10/23/2017 05/30/2020 Acute pain of left shoulder 10/22/201705/21 Morbid obesity due to excess calories 03/31/2016 07/04/2016 Type 2 diabetes mellitus wit h diabetic neuropathy, without long-term current use of insulin 01/08/2016 07/04/2016 documented as of this encounter (statuses as of 09/25/2022) [facility] History of Past illness Narrative* Problem Noted Date Resolved Date Shoulder injury 02/10/2018 05/30/2020 Impingement syndrome of left shoulder 10/23/2017 05/30/2020 Acute pain of left shoulder 10/22/201705/21 Morbid obesity due to excess calories 03/31/2016 07/04/2016 Type 2 diabetes mellitus wit h diabetic neuropathy, without long-term current use of insulin 01/08/2016 07/04/2016 documented as of this encounter (statuses as of 09/26/2022) [facility] History of Past illness Narrative* Problem Noted Date Diagnosed Date Resolved Date Shoulder injury 02/10/2018 05/30/2020 Impingement syndrome of left shoulder 10/23/2017 05/30/2020 Acute pain of left shoulder 10/22/2017 05/30/2020 Morbid obesity due to excess calories 03/31/2016 07/04/2016 Type 2 diabetes mellitus wit h diabetic neuropathy, without long-term current use of insulin 01/08/2016 07/04/2016 documented as of this encounter (statuses as of 09/30/2022) [facility] History of Past illness Narrative* Problem Noted Date Diagnosed Date Resolved Date Shoulder injury 02/10/2018 05/30/2020 Impingement syndrome of left shoulder 10/23/2017 05/30/2020 Acute pain of left shoulder 10/22/2017 05/30/2020 Morbid obesity due to excess calories 03/31/2016 07/04/2016 Type 2 diabetes mellitus wit h diabetic neuropathy, without long-term current use of insulin 01/08/2016 07/04/2016 documented as of this encounter (statuses as of 10/16/2022) [facility] History of Past illness Narrative* Problem Noted Date Diagnosed Date Resolved Date Shoulder injury 02/10/2018 05/30/2020 Impingement syndrome of left shoulder 10/23/2017 05/30/2020 Acute pain of left shoulder 10/22/2017 05/30/2020 Morbid obesity due to excess calories 03/31/2016 07/04/2016 Type 2 diabetes mellitus wit h diabetic neuropathy, without long-term current use of insulin 01/08/2016 07/04/2016 documented as of this encounter (statuses as of 10/23/2022) [facility] History of Past illness Narrative* Problem Noted Date Diagnosed Date Resolved Date Shoulder injury 02/10/2018 05/30/2020 Impingement syndrome of left shoulder 10/23/2017 05/30/2020 Acute pain of left shoulder 10/22/2017 05/30/2020 Morbid obesity due to excess calories 03/31/2016 07/04/2016 Type 2 diabetes mellitus wit h diabetic neuropathy, without long-term current use of insulin 01/08/2016 07/04/2016 documented as of this encounter (statuses as of 10/27/2022) [facility] History of Past illness Narrative* Problem Noted Date Diagnosed Date Resolved Date Shoulder injury 02/10/2018 05/30/2020 Impingement syndrome of left shoulder 10/23/2017 05/30/2020 Acute pain of left shoulder 10/22/2017 05/30/2020 Morbid obesity due to excess calories 03/31/2016 07/04/2016 Type 2 diabetes mellitus wit h diabetic neuropathy, without long-term current use of insulin 01/08/2016 07/04/2016 documented as of this encounter (statuses as of 10/30/2022) [facility] History of Past illness Narrative* Problem Noted Date Diagnosed Date Resolved Date Shoulder injury 02/10/2018 05/30/2020 Impingement syndrome of left shoulder 10/23/2017 05/30/2020 Acute pain of left shoulder 10/22/2017 05/30/2020 Morbid obesity due to excess calories 03/31/2016 07/04/2016 Type 2 diabetes mellitus wit h diabetic neuropathy, without long-term current use of insulin 01/08/2016 07/04/2016 documented as of this encounter (statuses as of 11/05/2022) [facility] History of Past illness Narrative* Problem Noted Date Diagnosed Date Resolved Date Shoulder injury 02/10/2018 05/30/2020 Impingement syndrome of left shoulder 10/23/2017 05/30/2020 Acute pain of left shoulder 10/22/2017 05/30/2020 Morbid obesity due to excess calories 03/31/2016 07/04/2016 Type 2 diabetes mellitus wit h diabetic neuropathy, without long-term current use of insulin 01/08/2016 07/04/2016 documented as of this encounter (statuses as of 11/08/2022) [facility] History of Past illness Narrative* Problem Noted Date Diagnosed Date Resolved Date Shoulder injury 02/10/2018 05/30/2020 Impingement syndrome of left shoulder 10/23/2017 05/30/2020 Acute pain of left shoulder 10/22/2017 05/30/2020 Morbid obesity due to excess calories 03/31/2016 07/04/2016 Type 2 diabetes mellitus wit h diabetic neuropathy, without long-term current use of insulin 01/08/2016 07/04/2016 documented as of this encounter (statuses as of 11/19/2022) [facility] History of Past illness Narrative* Problem Noted Date Diagnosed Date Resolved Date Shoulder injury 02/10/2018 05/30/2020 Impingement syndrome of left shoulder 10/23/2017 05/30/2020 Acute pain of left shoulder 10/22/2017 05/30/2020 Morbid obesity due to excess calories 03/31/2016 07/04/2016 Type 2 diabetes mellitus wit h diabetic neuropathy, without long-term current use of insulin 01/08/2016 07/04/2016 documented as of this encounter (statuses as of 11/19/2022) [facility] History of Past illness Narrative* Problem Noted Date Diagnosed Date Resolved Date Shoulder injury 02/10/2018 05/30/2020 Impingement syndrome of left shoulder 10/23/2017 05/30/2020 Acute pain of left shoulder 10/22/2017 05/30/2020 Morbid obesity due to excess calories 03/31/2016 07/04/2016 Type 2 diabetes mellitus wit h diabetic neuropathy, without long-term current use of insulin 01/08/2016 07/04/2016 documented as of this encounter (statuses as of 11/21/2022) [facility] History of Past illness Narrative* Problem Noted Date Diagnosed Date Resolved Date Shoulder injury 02/10/2018 05/30/2020 Impingement syndrome of left shoulder 10/23/2017 05/30/2020 Acute pain of left shoulder 10/22/2017 05/30/2020 Morbid obesity due to excess calories 03/31/2016 07/04/2016 Type 2 diabetes mellitus wit h diabetic neuropathy, without long-term current use of insulin 01/08/2016 07/04/2016 documented as of this encounter (statuses as of 11/27/2022) [facility] History of Past illness Narrative* Problem Noted Date Diagnosed Date Resolved Date Shoulder injury 02/10/2018 05/30/2020 Impingement syndrome of left shoulder 10/23/2017 05/30/2020 Acute pain of left shoulder 10/22/2017 05/30/2020 Morbid obesity due to excess calories 03/31/2016 07/04/2016 Type 2 diabetes mellitus wit h diabetic neuropathy, without long-term current use of insulin 01/08/2016 07/04/2016 documented as of this encounter (statuses as of 11/27/2022) [facility] History of Past illness Narrative* Problem Noted Date Diagnosed Date Resolved Date Shoulder injury 02/10/2018 05/30/2020 Impingement syndrome of left shoulder 10/23/2017 05/30/2020 Acute pain of left shoulder 10/22/2017 05/30/2020 Morbid obesity due to excess calories 03/31/2016 07/04/2016 Type 2 diabetes mellitus wit h diabetic neuropathy, without long-term current use of insulin 01/08/2016 07/04/2016 documented as of this encounter (statuses as of 12/02/2022) [facility] History of Past illness Narrative* Problem Noted Date Diagnosed Date Resolved Date Shoulder injury 02/10/2018 05/30/2020 Impingement syndrome of left shoulder 10/23/2017 05/30/2020 Acute pain of left shoulder 10/22/2017 05/30/2020 Morbid obesity due to excess calories 03/31/2016 07/04/2016 Type 2 diabetes mellitus wit h diabetic neuropathy, without long-term current use of insulin 01/08/2016 07/04/2016 documented as of this encounter (statuses as of 12/02/2022) [facility] Sachin Walton [facility] Note Date/Time August 29, 2024 12:16 pm [facility] Medical Records Department [address] [place] [address] Emergency Department Summary 08/29/24 MR#: [id number] Acct: [id number] Name: INÉS SHANKS Rep #:[id number] : 1965 58 From: Sachin Barber [...] 15 Psych: Cooperative, appropriate mood and affect [facility] Medical History Powers's esophagus Diabetes DJD (degenerative [...] 60 mg PO BID thyroid 08/2208/28/24 History (Tennyson Thyroid) nitroglycerin 0.4 mg sublingual 0.4 mg [...] chronic small-vessel ischemic changes . Reading Location: [facility], [facility]–[address] 08/29/24 09:45 IMPRESSION: DEGENERATIVE CHANGES OF THE CERVICAL SPINE. NO EVIDENCE OF SIGNIFICANT OSSEOUS CENTRAL CANAL OR NEURAL FORAMINAL STENOSIS. Reading Location: [facility] Facial/Sinus 08/29/24 09:45 IMPRESSION: No acute abnormality is seen. Reading Location: [facility] Discharge Plan Triage Chief Complaint: Fall ED [...] tablet 200 mg PO BID thyroid (pork) [Tennyson Thyroid] 60 MG tablet 60 mg PO [...] in 7 to 10 days Print Language: Upper Sorbian Disposition Disposition: Home, Self Care What to do if you have Problems For any increased pain, shortness of breath, bleeding, nausea or vomiting, chestpain, or any unexpected problems, contact your Primary Care Provider. Call [facility] ([phone]) or report to the closest Emergency Room. Call 911 if necessary. 08/29/24 1216 <Electronically signed by Sachin Walton DO> Cosigner Signature (if applicable): CC: Dr. Santhosh Holden MD ~ Signed [facility] Work Phone: Evaluation note* Diagnosis Iron deficiency anemia, unspecified iron deficiency anemia type [facility] Diagnosis Sinobronchitis- Primary Unspecified sinusitis (chronic) [facility] this [facility]* Diagnosis Ulcer of toe of left foot, limited to breakdown of skin (HCC)- Primary Other diabetic neurological complication associated with type 2 diabetes mellitus (HCC) Diminished pulses in lower extremity Other symptoms involving cardiovascular system Onychomycosis Dermatophytosis of nail [facility]* Diagnosis Microalbuminuria Proteinuria [facility] this [facility]* Diagnosis Pain Generalized pain [facility] this [facility]* Diagnosis Primary hypertension- Primary Unspecified essential hypertension Hypothyroidism, unspecified type [facility]* Diagnosis Ulcer of toe of left foot, limited to breakdown of skin (HCC)- Primary Other diabetic neurological complication associated with type 2 diabetes mellitus (HCC) [facility] this 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)- Primary Primary hypertension Unspecified essential hypertension Hypothyroidism, unspecified type Microalbuminuria Proteinuria Essential hypertension Unspecified essential hypertension Other hyperlipidemia Iron deficiency anemia, unspecified iron deficiency anemia type Depression, unspecified depression type KRZYSZTOF (obstructive sleep apnea) Obstructive sleep apnea (adult) (pediatric) [facility]* Diagnosis Elevated TSH- Primary Nonspecific abnormal results of thyroid function study Hypothyroidism, unspecified type Other hyperlipidemia [facility]* Diagnosis Microalbuminuria Proteinuria [facility]* Diagnosis Fibromyalgia Mylagia and myositis, unspecified [facility]* Diagnosis Other diabetic neurological complication associated with type 2 diabetes mellitus (HCC) Hammertoe of left foot [facility] this [facility] Diagnosis Other diabetic neurological complication associated with type 2 diabetes mellitus (HCC)- Primary Hammertoe of left foot Ulcer of toe of left foot, limited to breakdown of skin (HCC) [facility] this [facility]* Diagnosis Hammertoe of left foot- Primary Hammer toe of left foot [facility] this [facility]* Diagnosis Post-operative state- Primary Other postprocedural status [facility] this [facility]* Diagnosis Post-operative state- Primary Other postprocedural status Hammertoe of left foot [facility] this [facility] Diagnosis Post-operative state- Primary Other postprocedural status Hammertoe of right foot [facility] this [facility]* Diagnosis Microalbuminuria Proteinuria [facility] this [facility]* Diagnosis Hypothyroidism, unspecified type [facility] this [facility]* Diagnosis Hypothyroidism, unspecified type- Primary Type 2 diabetes mellitus with diabetic neuropathy, without long-term current use of insulin (HCC) [facility] this [facility]* Diagnosis Hammertoe of right foot- Primary [facility]* Diagnosis Hypothyroidism, unspecified type [facility] this [facility]* Diagnosis Type 2 diabetes mellitus with diabetic neuropathy, without long-term current use of insulin (HCC)- Primary documented [facility] this [facility]* Diagnosis Fibromyalgia Mylagia and myositis, unspecified [facility] this [facility]* Diagnosis Primary hypertension- Primary Unspecified essential [...] unspecified single disease [facility] this [facility]* Diagnosis Type 2 diabetes mellitus with diabetic neuropathy, without long-term current use of insulin (HCC) [facility] this [facility]* Diagnosis Type 2 diabetes mellitus without retinopathy (HCC)- Primary Type II or unspecified type diabetes mellitus without mention of complication, not stated as uncontrolled Dry eye syndrome of bilateral lacrimal glands Tear film insufficiency, unspecified Combined forms of age-related cataract of both eyes Other and combined forms of senile cataract Presbyopia documented in this encounter [facility] note* Diagnosis Mixed hyperlipidemia- Primary [facility] this [facility]* Diagnosis Abnormal posture- Primary documented in this encounter [facility] note* Diagnosis Iron deficiency anemia, unspecified iron deficiency anemia type documented in this encounter [facility] note* Diagnosis DDD (degenerative disc disease), cervical Degeneration of cervical intervertebral disc Acute pain of left shoulder documented in this encounter [facility] note* Diagnosis Hypothyroidism, unspecified type documented in this encounter [facility] note* Diagnosis Microalbuminuria Proteinuria documented in this encounter [facility] note* Diagnosis Type 2 diabetes mellitus with diabetic neuropathy, without long-term current use of insulin (HCC) [facility]* Diagnosis DDD (degenerative disc disease), cervical Degeneration of cervical intervertebral disc Acute pain of left shoulder documented in this encounter [facility] note* Diagnosis Post-op pain Other acute postoperative pain [facility]* Diagnosis Iron deficiency anemia, unspecified iron deficiency anemia type documented in this encounter [facility] note* Diagnosis Pain- Primary Generalized pain documented in this encounter [facility] note* Diagnosis Closed displaced fracture of phalanx of lesser toe of right foot, unspecified phalanx, initial encounter- Primary Hammertoe of right foot documented in this encounter [facility] note* Diagnosis Hypothyroidism, unspecified type DDD (degenerative disc disease), cervical Degeneration of cervical intervertebral disc Acute pain of left shoulder Iron deficiency anemia, unspecified iron deficiency anemia type documented in this encounter [facility] noteNo assessment information availableWRegency [facility] Work Phone: Evaluation note* Diagnosis Loss of balance- Primary Other symptoms involving nervous and musculoskeletal systems Multiple falls Personal history of fall [facility]* Diagnosis Microalbuminuria Proteinuria documented in this encounter [facility] note* Diagnosis Tremor- Primary Abnormal involuntary movements Migraine without aura, intractable, with status migrainosus Migraine without aura, with intractable migraine, so stated, with status migrainosus [facility]* Diagnosis Fibromyalgia Mylagia and myositis, unspecified [facility]* Diagnosis Hammertoe of right foot- Primary Other diabetic neurological complication associated with type 2 diabetes mellitus (HCC) [facility] this [facility]* Diagnosis Type 2 diabetes mellitus without retinopathy (HCC) Type II or unspecified type diabetes mellitus without mention of complication, not stated as uncontrolled [facility] this [facility]* Diagnosis Type 2 diabetes mellitus with diabetic neuropathy, without long-term current use of insulin (HCC) Iron deficiency anemia, unspecified iron deficiency anemia type [facility] this [facility]* Diagnosis Dry eye syndrome of bilateral lacrimal glands- Primary Tear film insufficiency, unspecified Type 2 diabetes mellitus without retinopathy (HCC) Type II or unspecified type diabetes mellitus without mention of complication, not stated as uncontrolled Combined forms of age-related cataract of both eyes Other and combined forms of senile cataract Presbyopia [facility] this [facility]* Diagnosis Type 2 diabetes mellitus with diabetic neuropathy, without long-term current use of insulin (HCC)- Primary [facility] this [facility]* Diagnosis Tremor- Primary Abnormal involuntary movements [...] of colonic polyps Coronary artery disease involving [place] heart without angina pectoris, unspecified vessel or lesion type Memory loss Screening for HIV (human immunodeficiency virus) Special screening examination for other specified viral diseases [facility] this [facility]* Diagnosis 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 History of colonic polyps Personal history of colonic polyps [facility] this [facility]* Diagnosis Pain Generalized pain [facility] this [facility]* Diagnosis Screening breast examination Breast screening, unspecified documented [facility] this [facility]* Diagnosis Microalbuminuria Proteinuria [facility] this 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 Mild CAD Primary hypertension Unspecified essential hypertension Mixed hyperlipidemia KRZYSZTOF (obstructive sleep apnea) Obstructive sleep apnea (adult) (pediatric) [facility] Type 2 diabetes mellitus with diabetic neuropathy, without long-term current use of insulin (HCC) [facility]* Diagnosis Type 2 diabetes mellitus with diabetic neuropathy, without long-term current use of insulin (HCC) [facility] Post-op pain Other acute postoperative pain [facility]* Diagnosis Hypothyroidism, unspecified type [facility] Diagnosis Microalbuminuria Proteinuria [facility] Diagnosis Tremor Abnormal involuntary movements [facility] Diagnosis Mild CAD- Primary SOB (shortness of breath) Shortness of breath Primary hypertension Unspecified essential hypertension Other hyperlipidemia [facility]* Diagnosis Powers's esophagus with dysplasia- Primary Powers's esophagus [facility]* Diagnosis Sciatica, unspecified laterality- Primary [facility]* Diagnosis Fibromyalgia Mylagia and myositis, unspecified [facility]* Diagnosis Type 2 diabetes mellitus without retinopathy (HCC)- Primary Type II or unspecified type diabetes mellitus without mention of complication, not stated as uncontrolled Combined forms of age-related cataract of both eyes Other and combined forms of senile cataract Dry eye syndrome of bilateral lacrimal glands Tear film insufficiency, unspecified Presbyopia [facility]* Diagnosis Acute cough- Primary Rhinosinusitis Unspecified sinusitis (chronic) [facility]* Diagnosis Tremor Abnormal involuntary movements [facility]* Diagnosis KRZYSZTOF (obstructive sleep apnea)- Primary Obstructive sleep apnea (adult) (pediatric) [facility]* Diagnosis Tremor- Primary Abnormal involuntary movements Migraine without aura, intractable, with status migrainosus Migraine without aura, with intractable migraine, so stated, with status migrainosus [facility]* Diagnosis Tremor Abnormal involuntary movements [facility] Diagnosis Type 2 diabetes mellitus with diabetic neuropathy, without long-term current use of insulin (HCC)- Primary [facility] this [facility]* Diagnosis Microalbuminuria Proteinuria [facility] this [facility]* Diagnosis Sciatica, unspecified laterality [facility]* Diagnosis Type 2 diabetes mellitus with diabetic neuropathy, without long-term current use of insulin (HCC) [facility]* Diagnosis Type 2 diabetes mellitus with diabetic neuropathy, without long-term current use of insulin (HCC) [facility] this [facility]* Diagnosis Other specified hearing loss, unspecified ear- Primary [facility] this [facility]* Diagnosis Hypothyroidism, unspecified type [facility] this [facility]* Diagnosis Preoperative examination- Primary Preoperative examination, [...] Sciatica, unspecified laterality [facility] Diagnosis Preoperative examination- Primary Preoperative examination, [...] (or current) unspecified [facility] Diagnosis Preoperative examination- Primary Preoperative examination, [...] Sciatica, unspecified laterality [facility] this [facility]* Diagnosis Preoperative examination- Primary Preoperative examination, [...] of insulin (HCC) [facility] Diagnosis Preoperative examination- Primary Preoperative examination, [...] of insulin (HCC) [facility] this [facility]* Diagnosis Preoperative examination- Primary Preoperative examination, [...] Sciatica, unspecified laterality [facility] Diagnosis Preoperative examination- Primary Preoperative examination, [...] status migrainosus [facility]* Diagnosis Preoperative examination- Primary Preoperative examination, [...] present Acute cough [facility] Diagnosis Preoperative examination- Primary Preoperative examination, [...] Pain in limb [facility] Diagnosis Preoperative examination- Primary Preoperative examination, [...] deficiency anemia type [facility] Diagnosis Preoperative examination- Primary Preoperative examination, [...] serious comorbidity present [facility] Diagnosis Preoperative examination- Primary Preoperative examination, [...] hearing loss, bilateral [facility] Diagnosis Preoperative examination- Primary Preoperative examination, [...] both ears- Primary documented in this encounter [facility] note* Diagnosis Preoperative examination- Primary Preoperative examination, [...] serious comorbidity present [facility] Diagnosis Preoperative examination- Primary Preoperative examination, [...] Sciatica, unspecified laterality [facility] this [facility]* Diagnosis Preoperative examination- Primary Preoperative examination, [...] Abnormal involuntary movements [facility] Diagnosis Preoperative examination- Primary Preoperative examination, [...] with status migrainosus [facility] Diagnosis Preoperative examination- Primary Preoperative examination, [...] Sciatica, unspecified laterality [facility] Diagnosis Preoperative examination- Primary Preoperative examination, [...] for breast cancer [facility] Diagnosis Preoperative examination- Primary Preoperative examination, [...] right foot- Primary [facility] Diagnosis Preoperative examination- Primary Preoperative examination, [...] Hypothyroidism, unspecified type [facility] Diagnosis Preoperative examination- Primary Preoperative examination, [...] of right foot [facility] Diagnosis Preoperative examination- Primary Preoperative examination, [...] of right foot [facility] Diagnosis Preoperative examination- Primary Preoperative examination, [...] dysplasia Powers's esophagus [facility] Preoperative examination- Primary Preoperative examination, [...] initial encounter- [facility] Diagnosis Preoperative examination- Primary Preoperative examination, [...] Essential and other specified forms of tremor RKZYSZTOF (obstructive sleep apnea) Obstructive sleep apnea (adult) [...] of unspecified site [facility] Diagnosis Preoperative examination- Primary Preoperative examination, [...] and myositis, unspecified [facility] Diagnosis Preoperative examination- Primary Preoperative examination, [...] phalanx, initial encounter [facility] Diagnosis Preoperative examination- Primary Preoperative examination, [...] of skin (HCC) [facility] Diagnosis Preoperative examination- Primary Preoperative examination, [...] Sciatica, unspecified laterality [facility] Diagnosis Preoperative examination- Primary Preoperative examination, [...] of insulin (HCC) [facility] Diagnosis Preoperative examination- Primary Preoperative examination, [...] insulin (HCC) [facility] Diagnosis Preoperative examination- Primary Preoperative examination, [...] single bacterial disease [facility] Diagnosis Preoperative examination- Primary Preoperative examination, [...] Anemia, unspecified type [facility] Diagnosis Preoperative examination- Primary Preoperative examination, [...] insufficiency, unspecified Presbyopia [facility] Diagnosis Preoperative examination- Primary Preoperative examination, [...] phalanx, initial encounter [facility] Diagnosis Preoperative examination- Primary Preoperative examination, [...] kidney and ureter [facility] Diagnosis Preoperative examination- Primary Preoperative examination, [...] of right foot [facility] Diagnosis Preoperative examination- Primary Preoperative examination, [...] of insulin (HCC) [facility] Diagnosis Preoperative examination- Primary Preoperative examination, [...] of insulin (HCC) [facility] Diagnosis Preoperative examination- Primary Preoperative examination, [...] anemia type [facility] Diagnosis Preoperative examination- Primary Preoperative examination, [...] with status migrainosus [facility] Diagnosis Preoperative examination- Primary Preoperative examination, [...] (HCC) Secondary Parkinsonism [facility] Diagnosis Preoperative examination- Primary Preoperative examination, [...] screening Special screening for malignant neoplasms, colon Poewrs's esophagus without dysplasia Powers's esophagus H/O gastric [...] present Microalbuminuria Proteinuria [facility] Additional Instructions Other than your old second toe fracture the x-rays today of your right elbow, right wrist, femur and foot otherwise were unremarkable. Ice all sore areas. Tylenol Motrin for pain. Follow-up with your doctor as needed.[facility] Work Phone: Hospital Discharge instructions Additional Instructions You received Tylenol here in the emergency department. No Tylenol for 6 hours. Follow-up with primary care physician. Recommend using your walker. Monitor for signs of concussion which we talked about. Return back to the ED if symptoms change or worsen. [facility] Reason for referral (narrative)* Outpatient Procedure (Routine) - Authorized Specialty Diagnoses / Procedures Referred By Rachael yanez Referred To Contact [facility] Diagnoses Ulcer of toe of left foot, limited to breakdown of skin (HCC) Diminished pulses in lower extremity Procedures PVR ANK PRESS SHY VAS LAB NON-INVAS PHYSIOLOGIC STD EXTREMITY ART 2 L[address] [place] [address] [facility] [place] [address] [place] [address] Referral ID Status Reason Start Date Expiration Date Visits Requested Visits Authorized [id number] Authorized Auto-Generat ed Referral 08/09/2021 08/09/2022 1 1 [facility] for referral (narrative)* Diagnostic Procedure Only (Routine) - Closed Specialty Diagnoses / Procedures Referred By Rachael yanez Referred To Contact XR IMAGING Diagnoses Pain Procedures XR FOOT GENERAL 3V AP/LAT/OBL BILATERAL RADEX FOOT COMPLETE MINIMUM 3 VIEWS Dru [address] [place] [address] Xr Imaging Referral ID Status Reason Start Date Expiration Date V isits Requested Visits Authorized [id number] Closed Auto-Generate d Referral 07/30/2021 08/29/2022 1 1 [facility] for referral (narrative)* Diagnostic Procedure Only (Routine) - Closed Specialty Diagnoses / Procedures Referred By Rachael yanez Referred To Contact XR IMAGING Diagnoses Other diabetic neurological complication associated with type 2 diabetes mellitus (HCC) Hammertoe of left foot Procedures XR FOOT GENERAL 3V AP/LAT/OBL LEFT RADEX FOOT COMPLETE MINIMUM 3 VIEWS Dru [address]ahu[address] [place] [address] Xr Imaging Referral ID Status Reason Start Date Expiration Date V isits Requested Visits Authorized [id number] Closed Auto-Generate d Referral 12/18/2021 01/17/2023 1 [facility] Diagnostic Procedure Only (Routine) - Closed Specialty Diagnoses / Procedures Referred By Contac t Referred To Contact XR IMAGING Diagnoses Finger pain, right Procedures XR DIGIT GENERAL 3V FRONTAL/LAT/OBL RIGHT RADEX FINGR MINIMUM 2 VIEWS Santhosh Holden MD [facility] [place] [address] Xr Imaging Referral ID Status Reason Start Date Expiration Date V isits Requested Visits Authorized [id number] Closed Auto-Generate d Referral 05/29/2022 06/28/2023 1 1 * Diagnostic Procedure Only (Routine) - Authorized Specialty Diagnoses / Procedures Referred By Contac t Referred To Contact BR IMAGING Diagnoses Screening breast examination Procedures JESUS SCREENING SCREENING MAMMOGRAPHY BI 2-VIEW BREAST INC CAD Santhosh Holden MD [address] [place] [address] Br Imaging [address] [place] [address] Referral ID Status Reason Start Date Expiration Date Visits Requested Visits Authorized [id number] Authorized Auto-Generat ed Referral 05/29/2022 06/28/2023 1 1 * Diagnostic Procedure Only (Routine) - Closed Specialty Diagnoses / Procedures Referred By Contac t Referred To Contact XR IMAGING Diagnoses Finger pain, right Procedures XR DIGIT GENERAL 3V FRONTAL/LAT/OBL RIGHT RADEX FINGR MINIMUM 2 VIEWS Santhosh Holden MD [address] [place] [address] Xr Imaging Referral ID Status Reason Start Date Expiration Date V isits Requested Visits Authorized [id number] Closed Auto-Generate d Referral 05/29/2022 06/28/2023 1 1 * Consult, Test, Treat (Routine) - Authorized Specialty Diagnoses / Procedures Referred By Contac t Referred To Contact Cardiology Diagnoses Coronary-myocardial bridge Mild CAD Procedures CONSULT TO CARDIOLOGY OFFICE/OUTPATIENT [facility] 60-74 MINUTES Santhosh Holden MD [address] [place] [address] Referral ID Status Reason Start Date Expiration Date Visits Requested Visits Authorized [id number] Authorized PCP Requested Referral 05/29/2022 05/29/2023 1 1 * Consult, Test, Treat (Routine) - Authorized Specialty Diagnoses / Procedures Referred By Demetriusac t Referred To Contact General Surgery Diagnoses 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 H/O gastric bypass Screening for colon cancer Procedures CONSULT TO GENERAL SURGERY OFFICE/OUTPATIENT [facility] 60-74 MINUTES Santhosh Holden MD [address] [place] [address] Referral ID Status Reason Start Date Expiration Date Visits Requested Visits Authorized [id number] Authorized PCP Requested Referral 05/29/2022 05/29/2023 1 1 * Consult, Test, Treat (Routine) - Authorized Specialty Diagnoses / Procedures Referred By Rachael t Referred To Contact Neurology / NEUROLOGY Diagnoses Parkinson's disease (HCC) Essential tremor Ataxia Procedures CONSULT TO NEUROLOGY OFFICE/OUTPATIENT [facility] 60-74 MINUTES Santhosh Holden MD [address] [place] [address] Neur [place] [address] [address] Referral ID Status Reason Start Date Expiration Date Visits Requested Visits Authorized [id number] Authorized PCP Requested Referral 05/29/2022 08/21/2023 1 1 * Physical Therapy (Routine) - Pending Review Specialty Diagnoses / Procedures Referred By Contac t Referred To Contact [facility] Diagnoses Neuropathy Ataxia Fall, subsequent encounter Procedures CONSULT TO PHYSICAL THERAPY PHYSICAL THERAPY EVALUATION HIGH COMPLEX 45 MINS Santhosh Holden MD [address] [place] [address] [facility] [place] [address] [place] [address] Referral ID Status Reason Start Date Expiration Date Visits Requested Visits Authorized [id number] Pending Review Auto-Generat ed Referral 05/29/2022 05/29/2023 1 1 * Consult, Test, Treat (Routine) - Authorized Specialty Diagnoses / Procedures Referred By Contac t Referred To Contact Ophthalmology Diagnoses Screening for diabetic retinopathy Procedures CONSULT TO OPHTHALMOLOGY OFFICE/OUTPATIENT [facility] MDM 60-74 MINUTES Santhosh Holden MD [address] [place] [address] Referral ID Status Reason Start Date Expiration Date Visits Requested Visits Authorized [id number] Authorized PCP Requested Referral 05/29/2022 05/29/2023 1 1 [facility] for referral (narrative)* Diagnostic Procedure Only (Routine) - Authorized Specialty Diagnoses / Procedures Referred By Contac t Referred To Contact XR IMAGING Diagnoses Pain Procedures XR FOOT GENERAL 3V AP/LAT/OBL RIGHT RADEX FOOT COMPLETE MINIMUM 3 VIEWS Dru Sahu [address] [place] [address] Xr Imaging Referral ID Status Reason Start Date Expiration Date Visits Requested Visits Authorized [id number] Authorized Auto-Generat ed Referral 09/25/2022 10/25/2023 1 1 [facility] for referral (narrative)* Diagnostic Procedure Only (Routine) - Pending Review Specialty Diagnoses / Procedures Referred By Contac t Referred To Contact XR IMAGING Diagnoses Hammertoe of right foot Closed displaced fracture of phalanx of lesser toe of right foot, unspecified phalanx, initial encounter Procedures XR FOOT GENERAL 3V AP/LAT/OBL RIGHT RADEX FOOT COMPLETE MINIMUM 3 VIEWS Crystal Sahuew [address] [place] [address] Xr Imaging Referral ID Status Reason Start Date Expiration Date Visits Requested Visits Authorized [id number] Pending Review Auto-Generat ed Referral 10/15/2022 11/14/2023 1 1 [facility] for referral (narrative)* Diagnostic Procedure Only (Routine) - Closed Specialty Diagnoses / Procedures Referred By Contac t Referred To Contact XR IMAGING Diagnoses Pain Procedures XR FOOT GENERAL 3V AP/LAT/OBL RIGHT RADEX FOOT COMPLETE MINIMUM 3 VIEWS Dru Sahu [address] [place] [address] [place] [address] Referral ID Status Reason Start Date Expiration Date V isits Requested Visits Authorized [id number] Closed Auto-Generate d Referral 09/25/2022 10/25/2023 1 1 [facility] for referral (narrative)* Diagnostic Procedure Only (Routine) - Closed Specialty Diagnoses / Procedures Referred By Contac t Referred To Contact BR IMAGING Diagnoses Screening breast examination Procedures JESUS SCREENING SCREENING MAMMOGRAPHY BI 2-VIEW BREAST INC CAD Santhosh Holden MD [address] [place] [address] Br Imaging [address] [place] [address] Referral ID Status Reason Start Date Expiration Date V isits Requested Visits Authorized [id number] Closed Auto-Generate d Referral 05/29/2022 06/28/2023 1 1 [facility] for referral (narrative)* Outpatient Procedure (Routine) - Additional Clinical Info Needed Specialty Diagnoses / Procedures Referred By Contac t Referred To Contact [facility] Diagnoses Mild CAD SOB (shortness of breath) Procedures ECHO ECHO TTHRC R-T 2D W/WOM-MODE COMPL SPEC&COLR D Ganesh, Radha, PARAFFIN PLANT OPERATOR.EPITAXIAL REACTOR TECHNICIAN [address] [place] [address] [facility] [place] [address] [place] [address] Referral ID Status Reason Start Date Expiration Date Visits Requested Visits Authorized [id number] Additional Clinical Info Needed Auto-Generat ed Referral 05/08/2023 05/07/2024 1 1 [facility] for referral (narrative)* Diagnostic Procedure Only (Routine) - Authorized Specialty Diagnoses / Procedures Referred By Demetriusac t Referred To Contact [facility] Diagnoses KRZYSZTOF (obstructive sleep apnea) Procedures HOME SLEEP APNEA TEST (HSAT) SLEEP STD AIRFLOW HRT RATE&O2 SAT EFFORT UNATT Santhosh Holden MD [address] [place] [address] Neurological [place] [id number] Referral ID Status Reason Start Date Expiration Date Visits Requested Visits Authorized [id number] Authorized Auto-Generat ed Referral 07/24/2023 07/23/2024 1 1 [facility] for referral (narrative)* Diagnostic Procedure Only (Routine) - Closed Specialty Diagnoses / Procedures Referred By Rachael t Referred To Contact XR IMAGING Diagnoses Finger pain, right Procedures XR DIGIT GENERAL 3V FRONTAL/LAT/OBL RIGHT RADEX FINGR MINIMUM 2 VIEWS Santhosh Holden MD [facility] [place] [address] Xr Imaging [facility] Referral ID Status Reason Start Date Expiration Date V isits Requested Visits Authorized [id number] Closed Auto-Generate d Referral 05/29/2022 06/28/2023 1 1 [facility] for referral (narrative)* Diagnostic Procedure Only (Routine) - New Request Specialty Diagnoses / Procedures Referred By Contrandall t Referred To Contact BR IMAGING Diagnoses Encounter for screening mammogram for breast cancer Procedures JESUS SCREENING W TIFFANY SCREENING DIGITAL BREAST TOMOSYNTHESIS BI SCREENING MAMMOGRAPHY BI 2-VIEW BREAST INC CAD Santhosh Holden MD [address] [place] [address] Br Imaging [address] [place] [address] Referral ID Status Reason Start Date Expiration Date Visits Requested Visits Authorized [id number] New Request Auto-Generat ed Referral 04/15/2025 1 1 [facility] for referral (narrative)No reason for referral [facility] Phone: Reason for visit Narrative* Diagnostic Procedure Only (Routine) - Closed Specialty Diagnoses / Procedures Referred By Contac t Referred To Contact XR IMAGING Diagnoses Pain Procedures XR FOOT GENERAL 3V AP/LAT/OBL BILATERAL RADEX FOOT COMPLETE MINIMUM 3 VIEWS Dru Sahu [address] [place] [address] Xr Imaging Referral ID Status Reason Start Date Expiration Date V isits Requested Visits Authorized [id number] Closed Auto-Generate d Referral 07/30/2021 08/29/2022 1 1 [facility] for visit Narrative* Diagnostic Procedure Only (Routine) - Closed Specialty Diagnoses / Procedures Referred By Contac t Referred To Contact XR IMAGING Diagnoses Other diabetic neurological complication associated with type 2 diabetes mellitus (HCC) Hammertoe of left foot Procedures XR FOOT GENERAL 3V AP/LAT/OBL LEFT RADEX FOOT COMPLETE MINIMUM 3 VIEWS Dru Sahu [address] [place] [address] Xr Imaging Referral ID Status Reason Start Date Expiration Date V isits Requested Visits Authorized [id number] Closed Auto-Generate d Referral 12/18/2021 01/17/2023 1 1 [facility] for visit Narrative* Diagnostic Procedure Only (Routine) - Closed Specialty Diagnoses / Procedures Referred By Contac t Referred To Contact XR IMAGING Diagnoses Pain Procedures XR FOOT GENERAL 3V AP/LAT/OBL RIGHT RADEX FOOT COMPLETE MINIMUM 3 VIEWS NeshaDru rodriguez [address] [place] [address] [place] [address] Referral ID Status Reason Start Date Expiration Date V isits Requested Visits Authorized [id number] Closed Auto-Generate d Referral 09/25/2022 10/25/2023 1 1 [facility] for visit Narrative* Diagnostic Procedure Only (Routine) - Closed Specialty Diagnoses / Procedures Referred By Contac t Referred To Contact BR IMAGING Diagnoses Screening breast examination Procedures JESUS SCREENING SCREENING MAMMOGRAPHY BI 2-VIEW BREAST INC CAD Santhosh Holden MD [address] [place] [address] Br Imaging [address] [place] [address] Referral ID Status Reason Start Date Expiration Date V isits Requested Visits Authorized [id number] Closed Auto-Generate d Referral 05/29/2022 06/28/2023 1 1 [facility] for visit Narrative* Diagnostic Procedure Only (Routine) - Closed Specialty Diagnoses / Procedures Referred By Contac t Referred To Contact XR IMAGING Diagnoses Hammer toe of left foot Procedures XR FOOT GENERAL 3V AP/LAT/OBL LEFT RADEX FOOT COMPLETE MINIMUM 3 VIEWS [facility] [address] [place] [address] [place] [address] Referral ID Status Reason Start Date Expiration Date V isits Requested Visits Authorized [id number] Closed Auto-Generate d Referral 01/06/2022 02/05/2023 1 1 [facility] for visit Narrative* Diagnostic Procedure Only (Routine) - Closed Specialty Diagnoses / Procedures Referred By Contac t Referred To Contact XR IMAGING Diagnoses Finger pain, right Procedures XR DIGIT GENERAL 3V FRONTAL/LAT/OBL RIGHT RADEX FINGR MINIMUM 2 VIEWS Santhosh Holden MD [address] [place] [address] [place] [address] Referral ID Status Reason Start Date Expiration Date V isits Requested Visits Authorized [id number] Closed Auto-Generate d Referral 05/29/2022 06/28/2023 1 1 [facility] for visit Narrative* Diagnostic Procedure Only (Urgent) - Closed Specialty Diagnoses / Procedures Referred By Contac t Referred To Contact XR IMAGING Diagnoses Cellulitis and abscess of toe of right foot Procedures XR TOE AP/LAT/OBL RIGHT RADEX TOE MINIMUM 2 VIEWS Dru Sahu [address] [place] [address] Phone: tel: fax: [place] [address] Referral ID Status Reason Start Date Expiration Date V isits Requested Visits Authorized [id number] Closed Auto-Generate d Referral 05/05/2024 06/04/2025 1 1 [facility] for visit Narrative* Diagnostic Procedure Only (Routine) - Closed Specialty Diagnoses / Procedures Referred By Rachael t Referred To Contact XR IMAGING Diagnoses Closed displaced fracture of phalanx of right great toe, unspecified phalanx, initial encounter Procedures XR TOE AP/LAT/OBL RIGHT RADEX TOE MINIMUM 2 VIEWS Dru Sahu [address] [place] [address] Phone: tel: fax: [place] [address] Referral ID Status Reason Start Date Expiration Date V isits Requested Visits Authorized [id number] Closed Auto-Generate d Referral 05/13/2024 06/09/2025 1 1 [facility] for visit Narrative* Diagnostic Procedure Only (Routine) - Closed Specialty Diagnoses / Procedures Referred By Rachael t Referred To Contact XR IMAGING Diagnoses Closed nondisplaced fracture of phalanx of right great toe, unspecified phalanx, initial encounter Procedures XR TOE AP/LAT/OBL RIGHT RADEX TOE MINIMUM 2 VIEWS Dru Sahu [address] [place] [address] Phone: tel: fax: [place] [address] Referral ID Status Reason Start Date Expiration Date V isits Requested Visits Authorized [id number] Closed Auto-Generate d Referral 06/03/2024 06/12/[address] 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 Advance Directive(s) 05/16/2020 5:51 AM Advance Directive(s) 04/26/2020 10:10 AM Advance Directive(s) 05/21/2018 6:19 AM Advance Directive(s) 05/19/2018 11:00 AM Advance Directive(s) 03/25/2018 10:54 AM Advance Directive(s) 03/20/2016 8:31 AM Advance Directive(s) 01/10/2016 1:55 PM Documents on File Type Date 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 Advance Directive(s) 05/16/2020 5:51 AM Advance Directive(s) 04/26/2020 10:10 AM Advance Directive(s) 05/21/2018 6:19 AM Advance Directive(s) 05/19/2018 11:00 AM Advance Directive(s) 03/25/2018 10:54 AM Advance Directive(s) 03/20/2016 8:31 AM Advance Directive(s) 01/10/2016 1:55 PM Documents on File Type Date 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 Advance Directive(s) 05/16/2020 5:51 AM Advance Directive(s) 05/19/2018 11:00 AM Documents on File Type Date 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 Advance Directive(s) 05/16/2020 5:51 AM Advance Directive(s) 05/19/2018 11:00 AM Advance Directive Response Recorded Date/ Time Advance Directives No August 22 2:59pm Living Will No October 29, 2022 3:40pm Power of Home Improvement Advisor No October 29 3:40pm Documents on File Type Date 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 Yes August 29, 2024 10:04am Advance Directives [...] Diagnoses Primary hypertension Coronary artery disease involving [place] heart without angina pectoris, unspecified vessel or lesion type Procedures CONSULT TO CARDIOLOGY OFFICE/OUTPATIENT [facility] 60-74 MINUTES Santhosh Holden MD [address] [place] [address] Referral ID Status Reason Start Date Expiration Date Visits Requested Visits Authorized [id number] Authorized PCP Requested Referral 12/05/2022 12/05/2023 1 1 Specialty Diagnoses / Procedures Referred By Contac t Referred To Contact General Surgery Diagnoses 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 History of colonic polyps Procedures CONSULT TO GENERAL SURGERY OFFICE/OUTPATIENT [facility] MDM 60-74 MINUTES Santhosh Holden MD [address] [place] [address] Referral ID Status Reason Start Date Expiration Date Visits Requested Visits Authorized [id number] Authorized PCP Requested Referral 12/05/2022 12/05/2023 1 1 Specialty Diagnoses / Procedures Referred By Contac t Referred To Contact Diagnoses Type 2 diabetes mellitus with diabetic neuropathy, without long-term current use of insulin ([facility]) Santhosh Holden MD [address] [place] [address] Referral ID Status Reason Start Date Expiration Date Visits Re quested Visits Authorized [id number] Closed 1 1 Specialty Diagnoses / Procedures Referred By Contac t Referred To Contact Diagnoses Other specified hearing loss, unspecified ear Procedures HEARING TEST/AUDIOGRAM COMPRE AUDIOMETRY THRESHOLD EVAL SP ALFAIJ Dru Collado MD [address] [address] [facility] [address] [place] [address] Referral ID Status Reason Start Date Expiration Date Visits Requested Visits Authorized [id number] Pending Review Auto-Generat ed Referral 09/23/2023 09/23/2024 1 1 Additional Source Comments INFORMATION SOURCE (unrecogn ized section and content) DATE CREATED AUTHOR 04/21/2021 [employer] DATE CREATED AUTHOR AUTHOR'S ORGANIZ ATION 03/19/2023 [facility] DATE CREATED AUTHOR AUTHOR'S ORGANIZ ATION 01/07/2024 [facility] DATE CREATED AUTHOR AUTHOR'S ORGANIZ ATION 06/25/2024 [facility] DATE CREATED AUTHOR AUTHOR'S ORGANIZ ATION 09/01/2024 [facility] DATE CREATED AUTHOR AUTHOR'S ORGANIZ ATION 2024 [facility] Source Comments (unrecognize d section and content) In the event this informatio n is protected by the Federal Confidentiality of Alcohol and Drug Abuse Patient Records regulations: The Federal rules restrict any use of the information to criminally investigate or prosecute any alcohol or drug abuse patient.[facility] the event this information is protected by the Federal Confidentiality of Alcohol and Drug Abuse Patient Records regulations: The Federal rules restrict any use of the information to criminally investigate or prosecute any alcohol or drug abuse patient.[facility]In the event this information is protected by the Federal Confidentiality of Alcohol and Drug Abuse Patient Records regulations: The Federal rules restrict any use of the information to criminally investigate or prosecute any alcohol or drug abuse patient.[facility]In the event this information is protected by the Federal Confidentiality of Alcohol and Drug Abuse Patient Records regulations: The Federal rules restrict any use of the information to criminally investigate or prosecute any alcohol or drug abuse patient.[facility]In the event this information is protected by the Federal Confidentiality of Alcohol and Drug Abuse Patient Records regulations: The Federal rules restrict any use of the information to criminally investigate or prosecute any alcohol or drug abuse patient.[facility]In the event this information is protected by the Federal Confidentiality of Alcohol and Drug Abuse Patient Records regulations: The Federal rules restrict any use of the information to criminally investigate or prosecute any alcohol or drug abuse patient.[facility]In the event this information is protected by the Federal Confidentiality of Alcohol and Drug Abuse Patient Records regulations: The Federal rules restrict any use of the information to criminally investigate or prosecute any alcohol or drug abuse patient.[facility] HospitalIn the event this information is protected by the Federal Confidentiality of Alcohol and Drug Abuse Patient Records regulations: The Federal rules restrict any use of the information to criminally investigate or prosecute any alcohol or drug abuse patient.[facility]In the event this information is protected by the Federal Confidentiality of Alcohol and Drug Abuse Patient Records regulations: The Federal rules restrict any use of the information to criminally investigate or prosecute any alcohol or drug abuse patient.[facility]In the event this information is protected by the Federal Confidentiality of Alcohol and Drug Abuse Patient Records regulations: The Federal rules restrict any use of the information to criminally investigate or prosecute any alcohol or drug abuse patient.[facility] HospitalIn the event this information is protected by the Federal Confidentiality of Alcohol and Drug Abuse Patient Records regulations: The Federal rules restrict any use of the information to criminally investigate or prosecute any alcohol or drug abuse patient.[facility]In the event this information is protected by the Federal Confidentiality of Alcohol and Drug Abuse Patient Records regulations: The Federal rules restrict any use of the information to criminally investigate or prosecute any alcohol or drug abuse patient.[facility]In the event this information is protected by the Federal Confidentiality of Alcohol and Drug Abuse Patient Records regulations: The Federal rules restrict any use of the information to criminally investigate or prosecute any alcohol or drug abuse patient.[facility]In the event this information is protected by the Federal Confidentiality of Alcohol and Drug Abuse Patient Records regulations: The Federal rules restrict any use of the information to criminally investigate or prosecute any alcohol or drug abuse patient.[facility] HospitalIn the event this information is protected by the Federal Confidentiality of Alcohol and Drug Abuse Patient Records regulations: The Federal rules restrict any use of the information to criminally investigate or prosecute any alcohol or drug abuse patient.[facility] HospitalIn the event this information is protected by the Federal Confidentiality of Alcohol and Drug Abuse Patient Records regulations: The Federal rules restrict any use of the information to criminally investigate or prosecute any alcohol or drug abuse patient.[facility] HospitalIn the event this information is protected by the Federal Confidentiality of Alcohol and Drug Abuse Patient Records regulations: The Federal rules restrict any use of the information to criminally investigate or prosecute any alcohol or drug abuse patient.[facility]In the event this information is protected by the Federal Confidentiality of Alcohol and Drug Abuse Patient Records regulations: The Federal rules restrict any use of the information to criminally investigate or prosecute any alcohol or drug abuse patient.[facility] HospitalIn the event this information is protected by the Federal Confidentiality of Alcohol and Drug Abuse Patient Records regulations: The Federal rules restrict any use of the information to criminally investigate or prosecute any alcohol or drug abuse patient.[facility] HospitalIn the event this information is protected by the Federal Confidentiality of Alcohol and Drug Abuse Patient Records regulations: The Federal rules restrict any use of the information to criminally investigate or prosecute any alcohol or drug abuse patient.[facility] HospitalIn the event this information is protected by the Federal Confidentiality of Alcohol and Drug Abuse Patient Records regulations: The Federal rules restrict any use of the information to criminally investigate or prosecute any alcohol or drug abuse patient.[facility] HospitalIn the event this information is protected by the Federal Confidentiality of Alcohol and Drug Abuse Patient Records regulations: The Federal rules restrict any use of the information to criminally investigate or prosecute any alcohol or drug abuse patient.[facility] HospitalIn the event this information is protected by the Federal Confidentiality of Alcohol and Drug Abuse Patient Records regulations: The Federal rules restrict any use of the information to criminally investigate or prosecute any alcohol or drug abuse patient.[facility] HospitalIn the event this information is protected by the Federal Confidentiality of Alcohol and Drug Abuse Patient Records regulations: The Federal rules restrict any use of the information to criminally investigate or prosecute any alcohol or drug abuse patient.[facility] HospitalIn the event this information is protected by the Federal Confidentiality of Alcohol and Drug Abuse Patient Records regulations: The Federal rules restrict any use of the information to criminally investigate or prosecute any alcohol or drug abuse patient.[facility] HospitalIn the event this information is protected by the Federal Confidentiality of Alcohol and Drug Abuse Patient Records regulations: The Federal rules restrict any use of the information to criminally investigate or prosecute any alcohol or drug abuse patient.[facility] HospitalIn the event this information is protected by the Federal Confidentiality of Alcohol and Drug Abuse Patient Records regulations: The Federal rules restrict any use of the information to criminally investigate or prosecute any alcohol or drug abuse patient.[facility] HospitalIn the event this information is protected by the Federal Confidentiality of Alcohol and Drug Abuse Patient Records regulations: The Federal rules restrict any use of the information to criminally investigate or prosecute any alcohol or drug abuse patient.[facility] HospitalIn the event this information is protected by the Federal Confidentiality of Alcohol and Drug Abuse Patient Records regulations: The Federal rules restrict any use of the information to criminally investigate or prosecute any alcohol or drug abuse patient.[facility] HospitalIn the event this information is protected by the Federal Confidentiality of Alcohol and Drug Abuse Patient Records regulations: The Federal rules restrict any use of the information to criminally investigate or prosecute any alcohol or drug abuse patient.[facility] HospitalIn the event this information is protected by the Federal Confidentiality of Alcohol and Drug Abuse Patient Records regulations: The Federal rules restrict any use of the information to criminally investigate or prosecute any alcohol or drug abuse patient.[facility] HospitalIn the event this information is protected by the Federal Confidentiality of Alcohol and Drug Abuse Patient Records regulations: The Federal rules restrict any use of the information to criminally investigate or prosecute any alcohol or drug abuse patient.[facility] HospitalIn the event this information is protected by the Federal Confidentiality of Alcohol and Drug Abuse Patient Records regulations: The Federal rules restrict any use of the information to criminally investigate or prosecute any alcohol or drug abuse patient.[facility] HospitalIn the event this information is protected by the Federal Confidentiality of Alcohol and Drug Abuse Patient Records regulations: The Federal rules restrict any use of the information to criminally investigate or prosecute any alcohol or drug abuse patient.[facility] HospitalIn the event this information is protected by the Federal Confidentiality of Alcohol and Drug Abuse Patient Records regulations: The Federal rules restrict any use of the information to criminally investigate or prosecute any alcohol or drug abuse patient.[facility]In the event this information is protected by the Federal Confidentiality of Alcohol and Drug Abuse Patient Records regulations: The Federal rules restrict any use of the information to criminally investigate or prosecute any alcohol or drug abuse patient.[facility] HospitalIn the event this information is protected by the Federal Confidentiality of Alcohol and Drug Abuse Patient Records regulations: The Federal rules restrict any use of the information to criminally investigate or prosecute any alcohol or drug abuse patient.[facility] HospitalIn the event this information is protected by the Federal Confidentiality of Alcohol and Drug Abuse Patient Records regulations: The Federal rules restrict any use of the information to criminally investigate or prosecute any alcohol or drug abuse patient.[facility] HospitalIn the event this information is protected by the Federal Confidentiality of Alcohol and Drug Abuse Patient Records regulations: The Federal rules restrict any use of the information to criminally investigate or prosecute any alcohol or drug abuse patient.[facility] HospitalIn the event this information is protected by the Federal Confidentiality of Alcohol and Drug Abuse Patient Records regulations: The Federal rules restrict any use of the information to criminally investigate or prosecute any alcohol or drug abuse patient.[facility] HospitalIn the event this information is protected by the Federal Confidentiality of Alcohol and Drug Abuse Patient Records regulations: The Federal rules restrict any use of the information to criminally investigate or prosecute any alcohol or drug abuse patient.[facility] HospitalIn the event this information is protected by the Federal Confidentiality of Alcohol and Drug Abuse Patient Records regulations: The Federal rules restrict any use of the information to criminally investigate or prosecute any alcohol or drug abuse patient.[facility] HospitalIn the event this information is protected by the Federal Confidentiality of Alcohol and Drug Abuse Patient Records regulations: The Federal rules restrict any use of the information to criminally investigate or prosecute any alcohol or drug abuse patient.[facility] HospitalIn the event this information is protected by the Federal Confidentiality of Alcohol and Drug Abuse Patient Records regulations: The Federal rules restrict any use of the information to criminally investigate or prosecute any alcohol or drug abuse patient.[facility] HospitalIn the event this information is protected by the Federal Confidentiality of Alcohol and Drug Abuse Patient Records regulations: The Federal rules restrict any use of the information to criminally investigate or prosecute any alcohol or drug abuse patient.[facility] HospitalIn the event this information is protected by the Federal Confidentiality of Alcohol and Drug Abuse Patient Records regulations: The Federal rules restrict any use of the information to criminally investigate or prosecute any alcohol or drug abuse patient.[facility] HospitalIn the event this information is protected by the Federal Confidentiality of Alcohol and Drug Abuse Patient Records regulations: The Federal rules restrict any use of the information to criminally investigate or prosecute any alcohol or drug abuse patient.[facility] HospitalIn the event this information is protected by the Federal Confidentiality of Alcohol and Drug Abuse Patient Records regulations: The Federal rules restrict any use of the information to criminally investigate or prosecute any alcohol or drug abuse patient.[facility] HospitalIn the event this information is protected by the Federal Confidentiality of Alcohol and Drug Abuse Patient Records regulations: The Federal rules restrict any use of the information to criminally investigate or prosecute any alcohol or drug abuse patient.[facility] HospitalIn the event this information is protected by the Federal Confidentiality of Alcohol and Drug Abuse Patient Records regulations: The Federal rules restrict any use of the information to criminally investigate or prosecute any alcohol or drug abuse patient.[facility] HospitalIn the event this information is protected by the Federal Confidentiality of Alcohol and Drug Abuse Patient Records regulations: The Federal rules restrict any use of the information to criminally investigate or prosecute any alcohol or drug abuse patient.[facility] HospitalIn the event this information is protected by the Federal Confidentiality of Alcohol and Drug Abuse Patient Records regulations: The Federal rules restrict any use of the information to criminally investigate or prosecute any alcohol or drug abuse patient.[facility] HospitalIn the event this information is protected by the Federal Confidentiality of Alcohol and Drug Abuse Patient Records regulations: The Federal rules restrict any use of the information to criminally investigate or prosecute any alcohol or drug abuse patient.[facility] HospitalIn the event this information is protected by the Federal Confidentiality of Alcohol and Drug Abuse Patient Records regulations: The Federal rules restrict any use of the information to criminally investigate or prosecute any alcohol or drug abuse patient.[facility] HospitalIn the event this information is protected by the Federal Confidentiality of Alcohol and Drug Abuse Patient Records regulations: The Federal rules restrict any use of the information to criminally investigate or prosecute any alcohol or drug abuse patient.[facility] HospitalIn the event this information is protected by the Federal Confidentiality of Alcohol and Drug Abuse Patient Records regulations: The Federal rules restrict any use of the information to criminally investigate or prosecute any alcohol or drug abuse patient.[facility] HospitalIn the event this information is protected by the Federal Confidentiality of Alcohol and Drug Abuse Patient Records regulations: The Federal rules restrict any use of the information to criminally investigate or prosecute any alcohol or drug abuse patient.[facility] HospitalIn the event this information is protected by the Federal Confidentiality of Alcohol and Drug Abuse Patient Records regulations: The Federal rules restrict any use of the information to criminally investigate or prosecute any alcohol or drug abuse patient.[facility] HospitalIn the event this information is protected by the Federal Confidentiality of Alcohol and Drug Abuse Patient Records regulations: The Federal rules restrict any use of the information to criminally investigate or prosecute any alcohol or drug abuse patient.[facility] HospitalIn the event this information is protected by the Federal Confidentiality of Alcohol and Drug Abuse Patient Records regulations: The Federal rules restrict any use of the information to criminally investigate or prosecute any alcohol or drug abuse patient.[facility] HospitalIn the event this information is protected by the Federal Confidentiality of Alcohol and Drug Abuse Patient Records regulations: The Federal rules restrict any use of the information to criminally investigate or prosecute any alcohol or drug abuse patient.[facility] HospitalIn the event this information is protected by the Federal Confidentiality of Alcohol and Drug Abuse Patient Records regulations: The Federal rules restrict any use of the information to criminally investigate or prosecute any alcohol or drug abuse patient.[facility] HospitalIn the event this information is protected by the Federal Confidentiality of Alcohol and Drug Abuse Patient Records regulations: The Federal rules restrict any use of the information to criminally investigate or prosecute any alcohol or drug abuse patient.[facility] HospitalIn the event this information is protected by the Federal Confidentiality of Alcohol and Drug Abuse Patient Records regulations: The Federal rules restrict any use of the information to criminally investigate or prosecute any alcohol or drug abuse patient.[facility] HospitalIn the event this information is protected by the Federal Confidentiality of Alcohol and Drug Abuse Patient Records regulations: The Federal rules restrict any use of the information to criminally investigate or prosecute any alcohol or drug abuse patient.[facility] HospitalIn the event this information is protected by the Federal Confidentiality of Alcohol and Drug Abuse Patient Records regulations: The Federal rules restrict any use of the information to criminally investigate or prosecute any alcohol or drug abuse patient.[facility] HospitalIn the event this information is protected by the Federal Confidentiality of Alcohol and Drug Abuse Patient Records regulations: The Federal rules restrict any use of the information to criminally investigate or prosecute any alcohol or drug abuse patient.[facility] HospitalIn the event this information is protected by the Federal Confidentiality of Alcohol and Drug Abuse Patient Records regulations: The Federal rules restrict any use of the information to criminally investigate or prosecute any alcohol or drug abuse patient.[facility] HospitalIn the event this information is protected by the Federal Confidentiality of Alcohol and Drug Abuse Patient Records regulations: The Federal rules restrict any use of the information to criminally investigate or prosecute any alcohol or drug abuse patient.[facility] HospitalIn the event this information is protected by the Federal Confidentiality of Alcohol and Drug Abuse Patient Records regulations: The Federal rules restrict any use of the information to criminally investigate or prosecute any alcohol or drug abuse patient.[facility] HospitalIn the event this information is protected by the Federal Confidentiality of Alcohol and Drug Abuse Patient Records regulations: The Federal rules restrict any use of the information to criminally investigate or prosecute any alcohol or drug abuse patient.[facility] HospitalIn the event this information is protected by the Federal Confidentiality of Alcohol and Drug Abuse Patient Records regulations: The Federal rules restrict any use of the information to criminally investigate or prosecute any alcohol or drug abuse patient.[facility] HospitalIn the event this information is protected by the Federal Confidentiality of Alcohol and Drug Abuse Patient Records regulations: The Federal rules restrict any use of the information to criminally investigate or prosecute any alcohol or drug abuse patient.[facility] HospitalIn the event this information is protected by the Federal Confidentiality of Alcohol and Drug Abuse Patient Records regulations: The Federal rules restrict any use of the information to criminally investigate or prosecute any alcohol or drug abuse patient.[facility] HospitalIn the event this information is protected by the Federal Confidentiality of Alcohol and Drug Abuse Patient Records regulations: The Federal rules restrict any use of the information to criminally investigate or prosecute any alcohol or drug abuse patient.[facility] HospitalIn the event this information is protected by the Federal Confidentiality of Alcohol and Drug Abuse Patient Records regulations: The Federal rules restrict any use of the information to criminally investigate or prosecute any alcohol or drug abuse patient.[facility] HospitalIn the event this information is protected by the Federal Confidentiality of Alcohol and Drug Abuse Patient Records regulations: The Federal rules restrict any use of the information to criminally investigate or prosecute any alcohol or drug abuse patient.[facility] HospitalIn the event this information is protected by the Federal Confidentiality of Alcohol and Drug Abuse Patient Records regulations: The Federal rules restrict any use of the information to criminally investigate or prosecute any alcohol or drug abuse patient.[facility] HospitalIn the event this information is protected by the Federal Confidentiality of Alcohol and Drug Abuse Patient Records regulations: The Federal rules restrict any use of the information to criminally investigate or prosecute any alcohol or drug abuse patient.[facility] HospitalIn the event this information is protected by the Federal Confidentiality of Alcohol and Drug Abuse Patient Records regulations: The Federal rules restrict any use of the information to criminally investigate or prosecute any alcohol or drug abuse patient.[facility]In the event this information is protected by the Federal Confidentiality of Alcohol and Drug Abuse Patient Records regulations: The Federal rules restrict any use of the information to criminally investigate or prosecute any alcohol or drug abuse patient.[facility]In the event this information is protected by the Federal Confidentiality of Alcohol and Drug Abuse Patient Records regulations: The Federal rules restrict any use of the information to criminally investigate or prosecute any alcohol or drug abuse patient.[facility]In the event this information is protected by the Federal Confidentiality of Alcohol and Drug Abuse Patient Records regulations: The Federal rules restrict any use of the information to criminally investigate or prosecute any alcohol or drug abuse patient.[facility]In the event this information is protected by the Federal Confidentiality of Alcohol and Drug Abuse Patient Records regulations: The Federal rules restrict any use of the information to criminally investigate or prosecute any alcohol or drug abuse patient.[facility] HospitalIn the event this information is protected by the Federal Confidentiality of Alcohol and Drug Abuse Patient Records regulations: The Federal rules restrict any use of the information to criminally investigate or prosecute any alcohol or drug abuse patient.[facility] HospitalIn the event this information is protected by the Federal Confidentiality of Alcohol and Drug Abuse Patient Records regulations: The Federal rules restrict any use of the information to criminally investigate or prosecute any alcohol or drug abuse patient.[facility] HospitalIn the event this information is protected by the Federal Confidentiality of Alcohol and Drug Abuse Patient Records regulations: The Federal rules restrict any use of the information to criminally investigate or prosecute any alcohol or drug abuse patient.[facility] HospitalIn the event this information is protected by the Federal Confidentiality of Alcohol and Drug Abuse Patient Records regulations: The Federal rules restrict any use of the information to criminally investigate or prosecute any alcohol or drug abuse patient.[facility] HospitalIn the event this information is protected by the Federal Confidentiality of Alcohol and Drug Abuse Patient Records regulations: The Federal rules restrict any use of the information to criminally investigate or prosecute any alcohol or drug abuse patient.[facility] HospitalIn the event this information is protected by the Federal Confidentiality of Alcohol and Drug Abuse Patient Records regulations: The Federal rules restrict any use of the information to criminally investigate or prosecute any alcohol or drug abuse patient.[facility] HospitalIn the event this information is protected by the Federal Confidentiality of Alcohol and Drug Abuse Patient Records regulations: The Federal rules restrict any use of the information to criminally investigate or prosecute any alcohol or drug abuse patient.[facility] HospitalIn the event this information is protected by the Federal Confidentiality of Alcohol and Drug Abuse Patient Records regulations: The Federal rules restrict any use of the information to criminally investigate or prosecute any alcohol or drug abuse patient.[facility] HospitalIn the event this information is protected by the Federal Confidentiality of Alcohol and Drug Abuse Patient Records regulations: The Federal rules restrict any use of the information to criminally investigate or prosecute any alcohol or drug abuse patient.[facility] HospitalIn the event this information is protected by the Federal Confidentiality of Alcohol and Drug Abuse Patient Records regulations: The Federal rules restrict any use of the information to criminally investigate or prosecute any alcohol or drug abuse patient.[facility] HospitalIn the event this information is protected by the Federal Confidentiality of Alcohol and Drug Abuse Patient Records regulations: The Federal rules restrict any use of the information to criminally investigate or prosecute any alcohol or drug abuse patient.[facility] HospitalIn the event this information is protected by the Federal Confidentiality of Alcohol and Drug Abuse Patient Records regulations: The Federal rules restrict any use of the information to criminally investigate or prosecute any alcohol or drug abuse patient.[facility] HospitalIn the event this information is protected by the Federal Confidentiality of Alcohol and Drug Abuse Patient Records regulations: The Federal rules restrict any use of the information to criminally investigate or prosecute any alcohol or drug abuse patient.[facility] HospitalIn the event this information is protected by the Federal Confidentiality of Alcohol and Drug Abuse Patient Records regulations: The Federal rules restrict any use of the information to criminally investigate or prosecute any alcohol or drug abuse patient.[facility] HospitalIn the event this information is protected by the Federal Confidentiality of Alcohol and Drug Abuse Patient Records regulations: The Federal rules restrict any use of the information to criminally investigate or prosecute any alcohol or drug abuse patient.[facility] HospitalIn the event this information is protected by the Federal Confidentiality of Alcohol and Drug Abuse Patient Records regulations: The Federal rules restrict any use of the information to criminally investigate or prosecute any alcohol or drug abuse patient.[facility] HospitalIn the event this information is protected by the Federal Confidentiality of Alcohol and Drug Abuse Patient Records regulations: The Federal rules restrict any use of the information to criminally investigate or prosecute any alcohol or drug abuse patient.[facility] HospitalIn the event this information is protected by the Federal Confidentiality of Alcohol and Drug Abuse Patient Records regulations: The Federal rules restrict any use of the information to criminally investigate or prosecute any alcohol or drug abuse patient.[facility] HospitalIn the event this information is protected by the Federal Confidentiality of Alcohol and Drug Abuse Patient Records regulations: The Federal rules restrict any use of the information to criminally investigate or prosecute any alcohol or drug abuse patient.[facility] HospitalIn the event this information is protected by the Federal Confidentiality of Alcohol and Drug Abuse Patient Records regulations: The Federal rules restrict any use of the information to criminally investigate or prosecute any alcohol or drug abuse patient.[facility] HospitalIn the event this information is protected by the Federal Confidentiality of Alcohol and Drug Abuse Patient Records regulations: The Federal rules restrict any use of the information to criminally investigate or prosecute any alcohol or drug abuse patient.[facility] HospitalIn the event this information is protected by the Federal Confidentiality of Alcohol and Drug Abuse Patient Records regulations: The Federal rules restrict any use of the information to criminally investigate or prosecute any alcohol or drug abuse patient.[facility] HospitalIn the event this information is protected by the Federal Confidentiality of Alcohol and Drug Abuse Patient Records regulations: The Federal rules restrict any use of the information to criminally investigate or prosecute any alcohol or drug abuse patient.[facility] HospitalIn the event this information is protected by the Federal Confidentiality of Alcohol and Drug Abuse Patient Records regulations: The Federal rules restrict any use of the information to criminally investigate or prosecute any alcohol or drug abuse patient.[facility] HospitalIn the event this information is protected by the Federal Confidentiality of Alcohol and Drug Abuse Patient Records regulations: The Federal rules restrict any use of the information to criminally investigate or prosecute any alcohol or drug abuse patient.[facility] HospitalIn the event this information is protected by the Federal Confidentiality of Alcohol and Drug Abuse Patient Records regulations: The Federal rules restrict any use of the information to criminally investigate or prosecute any alcohol or drug abuse patient.[facility] HospitalIn the event this information is protected by the Federal Confidentiality of Alcohol and Drug Abuse Patient Records regulations: The Federal rules restrict any use of the information to criminally investigate or prosecute any alcohol or drug abuse patient.[facility] HospitalIn the event this information is protected by the Federal Confidentiality of Alcohol and Drug Abuse Patient Records regulations: The Federal rules restrict any use of the information to criminally investigate or prosecute any alcohol or drug abuse patient.[facility] HospitalIn the event this information is protected by the Federal Confidentiality of Alcohol and Drug Abuse Patient Records regulations: The Federal rules restrict any use of the information to criminally investigate or prosecute any alcohol or drug abuse patient.[facility] HospitalIn the event this information is protected by the Federal Confidentiality of Alcohol and Drug Abuse Patient Records regulations: The Federal rules restrict any use of the information to criminally investigate or prosecute any alcohol or drug abuse patient.[facility] HospitalIn the event this information is protected by the Federal Confidentiality of Alcohol and Drug Abuse Patient Records regulations: The Federal rules restrict any use of the information to criminally investigate or prosecute any alcohol or drug abuse patient.[facility] HospitalIn the event this information is protected by the Federal Confidentiality of Alcohol and Drug Abuse Patient Records regulations: The Federal rules restrict any use of the information to criminally investigate or prosecute any alcohol or drug abuse patient.[facility] HospitalIn the event this information is protected by the Federal Confidentiality of Alcohol and Drug Abuse Patient Records regulations: The Federal rules restrict any use of the information to criminally investigate or prosecute any alcohol or drug abuse patient.[facility] HospitalIn the event this information is protected by the Federal Confidentiality of Alcohol and Drug Abuse Patient Records regulations: The Federal rules restrict any use of the information to criminally investigate or prosecute any alcohol or drug abuse patient.[facility] HospitalIn the event this information is protected by the Federal Confidentiality of Alcohol and Drug Abuse Patient Records regulations: The Federal rules restrict any use of the information to criminally investigate or prosecute any alcohol or drug abuse patient.[facility] HospitalIn the event this information is protected by the Federal Confidentiality of Alcohol and Drug Abuse Patient Records regulations: The Federal rules restrict any use of the information to criminally investigate or prosecute any alcohol or drug abuse patient.[facility] HospitalIn the event this information is protected by the Federal Confidentiality of Alcohol and Drug Abuse Patient Records regulations: The Federal rules restrict any use of the information to criminally investigate or prosecute any alcohol or drug abuse patient.[facility] HospitalIn the event this information is protected by the Federal Confidentiality of Alcohol and Drug Abuse Patient Records regulations: The Federal rules restrict any use of the information to criminally investigate or prosecute any alcohol or drug abuse patient.[facility] HospitalIn the event this information is protected by the Federal Confidentiality of Alcohol and Drug Abuse Patient Records regulations: The Federal rules restrict any use of the information to criminally investigate or prosecute any alcohol or drug abuse patient.[facility] HospitalIn the event this information is protected by the Federal Confidentiality of Alcohol and Drug Abuse Patient Records regulations: The Federal rules restrict any use of the information to criminally investigate or prosecute any alcohol or drug abuse patient.[facility] HospitalIn the event this information is protected by the Federal Confidentiality of Alcohol and Drug Abuse Patient Records regulations: The Federal rules restrict any use of the information to criminally investigate or prosecute any alcohol or drug abuse patient.[facility] HospitalIn the event this information is protected by the Federal Confidentiality of Alcohol and Drug Abuse Patient Records regulations: The Federal rules restrict any use of the information to criminally investigate or prosecute any alcohol or drug abuse patient.[facility] HospitalIn the event this information is protected by the Federal Confidentiality of Alcohol and Drug Abuse Patient Records regulations: The Federal rules restrict any use of the information to criminally investigate or prosecute any alcohol or drug abuse patient.[facility] HospitalIn the event this information is protected by the Federal Confidentiality of Alcohol and Drug Abuse Patient Records regulations: The Federal rules restrict any use of the information to criminally investigate or prosecute any alcohol or drug abuse patient.[facility] HospitalIn the event this information is protected by the Federal Confidentiality of Alcohol and Drug Abuse Patient Records regulations: The Federal rules restrict any use of the information to criminally investigate or prosecute any alcohol or drug abuse patient.[facility] HospitalIn the event this information is protected by the Federal Confidentiality of Alcohol and Drug Abuse Patient Records regulations: The Federal rules restrict any use of the information to criminally investigate or prosecute any alcohol or drug abuse patient.[facility] HospitalIn the event this information is protected by the Federal Confidentiality of Alcohol and Drug Abuse Patient Records regulations: The Federal rules restrict any use of the information to criminally investigate or prosecute any alcohol or drug abuse patient.[facility] HospitalIn the event this information is protected by the Federal Confidentiality of Alcohol and Drug Abuse Patient Records regulations: The Federal rules restrict any use of the information to criminally investigate or prosecute any alcohol or drug abuse patient.[facility] HospitalIn the event this information is protected by the Federal Confidentiality of Alcohol and Drug Abuse Patient Records regulations: The Federal rules restrict any use of the information to criminally investigate or prosecute any alcohol or drug abuse patient.[facility] HospitalIn the event this information is protected by the Federal Confidentiality of Alcohol and Drug Abuse Patient Records regulations: The Federal rules restrict any use of the information to criminally investigate or prosecute any alcohol or drug abuse patient.[facility] HospitalIn the event this information is protected by the Federal Confidentiality of Alcohol and Drug Abuse Patient Records regulations: The Federal rules restrict any use of the information to criminally investigate or prosecute any alcohol or drug abuse patient.[facility] HospitalIn the event this information is protected by the Federal Confidentiality of Alcohol and Drug Abuse Patient Records regulations: The Federal rules restrict any use of the information to criminally investigate or prosecute any alcohol or drug abuse patient.[facility] HospitalIn the event this information is protected by the Federal Confidentiality of Alcohol and Drug Abuse Patient Records regulations: The Federal rules restrict any use of the information to criminally investigate or prosecute any alcohol or drug abuse patient.[facility] HospitalIn the event this information is protected by the Federal Confidentiality of Alcohol and Drug Abuse Patient Records regulations: The Federal rules restrict any use of the information to criminally investigate or prosecute any alcohol or drug abuse patient.[facility] HospitalIn the event this information is protected by the Federal Confidentiality of Alcohol and Drug Abuse Patient Records regulations: The Federal rules restrict any use of the information to criminally investigate or prosecute any alcohol or drug abuse patient.[facility] HospitalIn the event this information is protected by the Federal Confidentiality of Alcohol and Drug Abuse Patient Records regulations: The Federal rules restrict any use of the information to criminally investigate or prosecute any alcohol or drug abuse patient.[facility] HospitalIn the event this information is protected by the Federal Confidentiality of Alcohol and Drug Abuse Patient Records regulations: The Federal rules restrict any use of the information to criminally investigate or prosecute any alcohol or drug abuse patient.[facility] HospitalIn the event this information is protected by the Federal Confidentiality of Alcohol and Drug Abuse Patient Records regulations: The Federal rules restrict any use of the information to criminally investigate or prosecute any alcohol or drug abuse patient.[facility] HospitalIn the event this information is protected by the Federal Confidentiality of Alcohol and Drug Abuse Patient Records regulations: The Federal rules restrict any use of the information to criminally investigate or prosecute any alcohol or drug abuse patient.[facility] HospitalIn the event this information is protected by the Federal Confidentiality of Alcohol and Drug Abuse Patient Records regulations: The Federal rules restrict any use of the information to criminally investigate or prosecute any alcohol or drug abuse patient.[facility] HospitalIn the event this information is protected by the Federal Confidentiality of Alcohol and Drug Abuse Patient Records regulations: The Federal rules restrict any use of the information to criminally investigate or prosecute any alcohol or drug abuse patient.[facility] HospitalIn the event this information is protected by the Federal Confidentiality of Alcohol and Drug Abuse Patient Records regulations: The Federal rules restrict any use of the information to criminally investigate or prosecute any alcohol or drug abuse patient.[facility] HospitalIn the event this information is protected by the Federal Confidentiality of Alcohol and Drug Abuse Patient Records regulations: The Federal rules restrict any use of the information to criminally investigate or prosecute any alcohol or drug abuse patient.[facility] HospitalIn the event this information is protected by the Federal Confidentiality of Alcohol and Drug Abuse Patient Records regulations: The Federal rules restrict any use of the information to criminally investigate or prosecute any alcohol or drug abuse patient.[facility] HospitalIn the event this information is protected by the Federal Confidentiality of Alcohol and Drug Abuse Patient Records regulations: The Federal rules restrict any use of the information to criminally investigate or prosecute any alcohol or drug abuse patient.[facility] HospitalIn the event this information is protected by the Federal Confidentiality of Alcohol and Drug Abuse Patient Records regulations: The Federal rules restrict any use of the information to criminally investigate or prosecute any alcohol or drug abuse patient.[facility] HospitalIn the event this information is protected by the Federal Confidentiality of Alcohol and Drug Abuse Patient Records regulations: The Federal rules restrict any use of the information to criminally investigate or prosecute any alcohol or drug abuse patient.[facility] HospitalIn the event this information is protected by the Federal Confidentiality of Alcohol and Drug Abuse Patient Records regulations: The Federal rules restrict any use of the information to criminally investigate or prosecute any alcohol or drug abuse patient.[facility] HospitalIn the event this information is protected by the Federal Confidentiality of Alcohol and Drug Abuse Patient Records regulations: The Federal rules restrict any use of the information to criminally investigate or prosecute any alcohol or drug abuse patient.[facility] HospitalIn the event this information is protected by the Federal Confidentiality of Alcohol and Drug Abuse Patient Records regulations: The Federal rules restrict any use of the information to criminally investigate or prosecute any alcohol or drug abuse patient.[facility] HospitalIn the event this information is protected by the Federal Confidentiality of Alcohol and Drug Abuse Patient Records regulations: The Federal rules restrict any use of the information to criminally investigate or prosecute any alcohol or drug abuse patient.[facility] HospitalIn the event this information is protected by the Federal Confidentiality of Alcohol and Drug Abuse Patient Records regulations: The Federal rules restrict any use of the information to criminally investigate or prosecute any alcohol or drug abuse patient.[facility] HospitalIn the event this information is protected by the Federal Confidentiality of Alcohol and Drug Abuse Patient Records regulations: The Federal rules restrict any use of the information to criminally investigate or prosecute any alcohol or drug abuse patient.[facility] HospitalIn the event this information is protected by the Federal Confidentiality of Alcohol and Drug Abuse Patient Records regulations: The Federal rules restrict any use of the information to criminally investigate or prosecute any alcohol or drug abuse patient.[facility] HospitalIn the event this information is protected by the Federal Confidentiality of Alcohol and Drug Abuse Patient Records regulations: The Federal rules restrict any use of the information to criminally investigate or prosecute any alcohol or drug abuse patient.[facility] HospitalIn the event this information is protected by the Federal Confidentiality of Alcohol and Drug Abuse Patient Records regulations: The Federal rules restrict any use of the information to criminally investigate or prosecute any alcohol or drug abuse patient.[facility] HospitalIn the event this information is protected by the Federal Confidentiality of Alcohol and Drug Abuse Patient Records regulations: The Federal rules restrict any use of the information to criminally investigate or prosecute any alcohol or drug abuse patient.[facility] HospitalIn the event this information is protected by the Federal Confidentiality of Alcohol and Drug Abuse Patient Records regulations: The Federal rules restrict any use of the information to criminally investigate or prosecute any alcohol or drug abuse patient.[facility] HospitalIn the event this information is protected by the Federal Confidentiality of Alcohol and Drug Abuse Patient Records regulations: The Federal rules restrict any use of the information to criminally investigate or prosecute any alcohol or drug abuse patient.[facility] HospitalIn the event this information is protected by the Federal Confidentiality of Alcohol and Drug Abuse Patient Records regulations: The Federal rules restrict any use of the information to criminally investigate or prosecute any alcohol or drug abuse patient.[facility] HospitalIn the event this information is protected by the Federal Confidentiality of Alcohol and Drug Abuse Patient Records regulations: The Federal rules restrict any use of the information to criminally investigate or prosecute any alcohol or drug abuse patient.[facility]In the event this information is protected by the Federal Confidentiality of Alcohol and Drug Abuse Patient Records regulations: The Federal rules restrict any use of the information to criminally investigate or prosecute any alcohol or drug abuse patient.[facility] HospitalIn the event this information is protected by the Federal Confidentiality of Alcohol and Drug Abuse Patient Records regulations: The Federal rules restrict any use of the information to criminally investigate or prosecute any alcohol or drug abuse patient.[facility] HospitalIn the event this information is protected by the Federal Confidentiality of Alcohol and Drug Abuse Patient Records regulations: The Federal rules restrict any use of the information to criminally investigate or prosecute any alcohol or drug abuse patient.[facility] HospitalIn the event this information is protected by the Federal Confidentiality of Alcohol and Drug Abuse Patient Records regulations: The Federal rules restrict any use of the information to criminally investigate or prosecute any alcohol or drug abuse patient.[facility] HospitalIn the event this information is protected by the Federal Confidentiality of Alcohol and Drug Abuse Patient Records regulations: The Federal rules restrict any use of the information to criminally investigate or prosecute any alcohol or drug abuse patient.[facility] HospitalIn the event this information is protected by the Federal Confidentiality of Alcohol and Drug Abuse Patient Records regulations: The Federal rules restrict any use of the information to criminally investigate or prosecute any alcohol or drug abuse patient.[facility] HospitalIn the event this information is protected by the Federal Confidentiality of Alcohol and Drug Abuse Patient Records regulations: The Federal rules restrict any use of the information to criminally investigate or prosecute any alcohol or drug abuse patient.[facility] Reason for Visit (unrecogniz ed section and content) Reason Onset Date Comments Refill Request 07/02/2021 Reason Comments Insurance Authorization [employer] Thyroid 6 0 mg Reason Comments Chest [...] MDM 60-74 MINUTES Santhosh Holden MD [address] [place] [address] Referral ID Status Reason Start Date Expiration Date V isits Requested Visits Authorized [id number] Closed PCP Requested Referral 05/29/2022 05/29/2023 1 1 Reason Comments Opened In Error Specialty Diagnoses / Procedures Referred By Contrandall t Referred To Contact PHYSICAL THERAPY Diagnoses Neuropathy Ataxia Fall, subsequent encounter Procedures CONSULT TO PHYSICAL THERAPY PHYSICAL THERAPY EVALUATION HIGH COMPLEX 45 MINS Santhosh Holden MD [address] [place] [address] Nikkie Meyer, PT [address] [place] [address] Referral ID Status Reason Start Date Expiration Date Visits Requested Visits Authorized [id number] Pending Review Auto-Generat ed Referral 05/29/2022 05/29/2023 [...] Refill Request 09/25/2022 Reason Comments Insurance Authorization [employer] thyroid Reason Comments Established Patient Follow Up [...] polyps Procedures CONSULT TO GENERAL SURGERY OFFICE/OUTPATIENT [facility] MDM 60-74 MINUTES Santhosh Holden MD [address] [place] [address] Referral ID Status Reason Start Date Expiration Date V isits Requested Visits Authorized [id number] Closed PCP Requested Referral 12/05/2022 12/05/2023 1 [...] loss type Procedures CONSULT TO ENT OFFICE/OUTPATIENT [facility] 60 MINUTES Santhosh Holden MD [address] [place] [address] Referral ID Status Reason Start Date Expiration Date V isits Requested Visits Authorized [id number] Closed PCP Requested Referral 09/21/2023 09/20/2024 1 1 Reason Comments had audio Hearing Loss Bilateral hearing lo ss. Specialty Diagnoses / Procedures Referred By Rachael t Referred To Contact Ent - Otolaryngology Diagnoses Bilateral hearing loss, unspecified hearing loss type Procedures CONSULT TO ENT OFFICE/OUTPATIENT [facility] 60 MINUTES Santhosh Holden MD [address] [place] [id number] Reason Onset Date Comments Refill Request 01/05/2024 [...] TIME W/IMAGE COMPLETE Santhosh Holden MD [address] [place] [address] Phone: tel: fax: [place] [address] Referral ID Status Reason Start Date Expiration Date V isits Requested Visits Authorized [id number] Closed Auto-Generate d Referral 05/23/2024 06/22/2025 1 1 Reason Comments Established Patient Follow Up Pain Fracture Diabetic Foot Ulcer Reason Onset Date Comments Refill Request 06/07/2024 Reason Onset Date Comments Refill Request 06/20/2024 Reason Comments 6 month follow up Reason Onset Date Comments Refill Request 07/22/2024 Reason Onset Date Comments Refill Request 07/27/2024 Care Teams (unrecognized sec tion and content) [employer] 7 And 8 Teacher Relationship Specialty Start Date End Date Santhosh Holden MD [address] [place] [address] PCP - General Family Practice 11/17/14 Nabor Nicole MD [address] [place] [address] Consulting General Surgery 01/25/21 Gr[employer] 7 And 8 Teacher Relationship Specialty Start Date End Date Santhosh Holden MD [address] [place] [address] PCP - General Family Practice 11/17/14 Nabor Nicole MD [address] [place] [address] Consulting General Surgery 01/25/21 Grades 7 And 8 Teacher Relationship Specialty Start Date End Date Santhosh Holden MD [address] [place] [address] PCP - General Family Practice 11/17/14 Nabor Nicole MD [address] [place] [address] Consulting General Surgery 01/25/21 Grades 7 And 8 Teacher Relationship Specialty Start Date End Date Santhosh Holden MD [address] [place] [address] PCP - General Family Practice 11/17/14 Nabor Nicole MD [address] [place] [address] Consulting General Surgery 01/25/21 Grades 7 And 8 Teacher Relationship Specialty Start Date End Date Santhosh Holden MD [address] [place] [address] PCP - General Family Practice 11/17/14 Nabor Nicole MD [address] [place] [address] Consulting General Surgery 01/25/21 Grades 7 And 8 Teacher Relationship Specialty Start Date End Date Santhosh Holden MD [address] [place] [address] PCP - General Family Practice 11/17/14 Nabor Nicole MD [address] [place] [address] Consulting General Surgery 01/25/21 Grades 7 And 8 Teacher Relationship Specialty Start Date End Date Santhosh Holden MD [address] [place] [address] PCP - General Family Practice 11/17/14 Nabor Nicole MD [address] [place] [address] Consulting General Surgery 01/25/21 Grades 7 And 8 Teacher Relationship Specialty Start Date End Date Santhosh Holden MD [address] [place] [address] PCP - General Family Practice 11/17/14 Nabor Nicole MD Consulting General Surgery 01/25/21 Grades 7 And 8 Teacher Relationship Specialty Start Date End Date Nory Villeda, DO [address] [facility] [place] [address] Physician Electrophysiology 12/27/19 Shruthi Montenegro, DMD [address] [facility] [place] [address] Physician Oral & Maxillofacial Surgery 12/27/19 Grades 7 And 8 Teacher Relationship Specialty Start Date End Date Santhosh Holden MD [address] [facility] [place] [address] PCP - General Family Practice 11/17/14 Nabor Nicole MD Consulting General Surgery 01/25/21 Grades 7 And 8 Teacher Relationship Specialty Start Date End Date Santhosh Holden MD [address] [facility] [place] [address] PCP - General Family Practice 11/17/14 Nabor Nicole MD Consulting General Surgery 01/25/21 Grades 7 And 8 Teacher Relationship Specialty Start Date End Date Santhosh Holden MD [address] [facility] [place] [address] PCP - General Family Practice 11/17/14 Nabor Nicole MD Consulting General Surgery 01/25/21 Grades 7 And 8 Teacher Relationship Specialty Start Date End Date Santhosh Holden MD [address] [facility] [place] [address] PCP - General Family Practice 11/17/14 Nabor Nicole MD Consulting General Surgery 01/25/21 Grades 7 And 8 Teacher Relationship Specialty Start Date End Date Santhosh Holden MD [address] [facility] [place] [address] PCP - General Family Practice 11/17/14 Nabor Nicole MD Consulting General Surgery 01/25/21 Grades 7 And 8 Teacher Relationship Specialty Start Date End Date Santhosh Holden MD [address] [facility] [place] [address] PCP - General Family Practice 11/17/14 Nabor Nicole MD Consulting General Surgery 01/25/21 Grades 7 And 8 Teacher Relationship Specialty Start Date End Date Santhosh Holden MD [address] [facility] [place] [address] PCP - General Family Practice 11/17/14 Nabor Nicole MD Consulting General Surgery 01/25/21 Grades 7 And 8 Teacher Relationship Specialty Start Date End Date Santhosh Holden MD [address] [facility] [place] [address] PCP - General Family Medicine 11/17/14 Nabor Nicole MD Consulting General Surgery 01/25/21 Grades 7 And 8 Teacher Relationship Specialty Start Date End Date Santhosh Holden MD [address] [facility] [place] [address] PCP - General Family Medicine 11/17/14 Nabor Nicole MD Consulting General Surgery 01/25/21 Grades 7 And 8 Teacher Relationship Specialty Start Date End Date Santhosh Holden MD [address] [facility] [place] [address] PCP - General Family Medicine 11/17/14 Nabor Nicole MD Consulting General Surgery 01/25/21 Grades 7 And 8 Teacher Relationship Specialty Start Date End Date Santhosh Holden MD [address] [facility] [place] [address] PCP - General Family Medicine 11/17/14 Nabor Nicole MD Consulting General Surgery 01/25/21 Grades 7 And 8 Teacher Relationship Specialty Start Date End Date Santhosh Holden MD [address] [facility] [place] [address] PCP - General Family Medicine 11/17/14 Nabor Nicole MD Consulting General Surgery 01/25/21 Grades 7 And 8 Teacher Relationship Specialty Start Date End Date Santhosh Holden MD [address] [facility] [place] [address] PCP - General Family Medicine 11/17/14 Nabor Nicole MD Consulting General Surgery 01/25/21 Grades 7 And 8 Teacher Relationship Specialty Start Date End Date Santhosh Holden MD [address] [facility] [place] [address] PCP - General Family Medicine 11/17/14 Nabor Nicole MD Consulting General Surgery 01/25/21 Grades 7 And 8 Teacher Relationship Specialty Start Date End Date Santhosh Holden MD [address] [facility] [place] [address] PCP - General Family Medicine 11/17/14 Nabor Nicole MD Consulting General Surgery 01/25/21 Grades 7 And 8 Teacher Relationship Specialty Start Date End Date Santhosh Holden MD [address] [facility] [place] [address] PCP - General Family Medicine 11/17/14 Nabor Nicole MD Consulting General Surgery 01/25/21 Grades 7 And 8 Teacher Relationship Specialty Start Date End Date Santhosh Holden MD [address] [facility] [place] [address] PCP - General Family Medicine 11/17/14 Nabor Nicole MD [address] [place] [address] Consulting General Surgery 01/25/21 Grades 7 And 8 Teacher Relationship Specialty Start Date End Date Nory Villeda, DO [address] [facility] [place] [address] Physician Electrophysiology 12/27/19 Shruthi Montenegro, DMD [address] [facility] [place] [address] Physician Oral & Maxillofacial Surgery 12/27/19 Grades 7 And 8 Teacher Relationship Specialty Start Date End Date Santhosh Holden MD [facility] [place] [address] PCP - General Family Medicine 11/17/14 Nabor Nicole MD [address] [place] [address] Consulting General Surgery 01/25/21 Grades 7 And 8 Teacher Relationship Specialty Start Date End Date Santhosh Holden MD [address] [place] [address] PCP - General Family Medicine 11/17/14 Nabor Nicole MD [address] [place] [address] Consulting General Surgery 01/25/21 Grades 7 And 8 Teacher Relationship Specialty Start Date End Date Santhosh Holden MD [address] [place] [address] PCP - General Family Medicine 11/17/14 Nabor Nicole MD [facility] [place] [address] Consulting General Surgery 01/25/21 Grades 7 And 8 Teacher Relationship Specialty Start Date End Date Santhosh Holden MD [address] [place] [address] PCP - General Family Medicine 11/17/14 Nabor Nicole MD [address] [facility] [place] [address] Consulting General Surgery 01/25/21 Grades 7 And 8 Teacher Relationship Specialty Start Date End Date Santhosh Holden MD [address] [facility] [place] [address] PCP - General Family Medicine 11/17/14 Nabor Nicole MD [address] [facility] [place] [address] Consulting General Surgery 01/25/21 Grades 7 And 8 Teacher Relationship Specialty Start Date End Date Santhosh Holden MD [address] [facility] [place] [address] PCP - General Family Medicine 11/17/14 Nabor Nicole MD [address] [facility] [place] [address] Consulting General Surgery 01/25/21 Grades 7 And 8 Teacher Relationship Specialty Start Date End Date Santhosh Holden MD [address] [facility] [place] [address] PCP - General Family Medicine 11/17/14 Nabor Nicole MD [address] [facility] [place] [address] Consulting General Surgery 01/25/21 Grades 7 And 8 Teacher Relationship Specialty Start Date End Date Santhosh Holden MD [address] [facility] [place] [address] PCP - General Family Medicine 11/17/14 Nabor Nicole MD [address] [facility] [place] [address] Consulting General Surgery 01/25/21 Grades 7 And 8 Teacher Relationship Specialty Start Date End Date Nory Villeda DO [address] [facility] [place] [address] Physician Electrophysiology 12/27/19 Shruthi Montenegro, DMD [address] [facility] [place] [address] Physician Oral & Maxillofacial Surgery 12/27/19 Grades 7 And 8 Teacher Relationship Specialty Start Date End Date Santhosh Holden MD [facility] [place] [address] PCP - General Family Medicine 11/17/14 Nabor Nicole MD [address] [place] [address] Consulting General Surgery 01/25/21 Grades 7 And 8 Teacher Relationship Specialty Start Date End Date Santhosh Holden MD [address] [place] [address] PCP - General Family Medicine 11/17/14 Nabor Nicole MD [address] [place] [address] Consulting General Surgery 01/25/21 Grades 7 And 8 Teacher Relationship Specialty Start Date End Date Santhosh Holden MD [address] [place] [address] PCP - General Family Medicine 11/17/14 Nabor Nicole MD [address] [place] [address] Consulting General Surgery 01/25/21 Grades 7 And 8 Teacher Relationship Specialty Start Date End Date Santhosh Holden MD [address] [place] [address] PCP - General Family Medicine 11/17/14 Nabor Nicole MD [address] [place] [address] Consulting General Surgery 01/25/21 Grades 7 And 8 Teacher Relationship Specialty Start Date End Date Santhosh Holden MD [address] [place], [place] [address]661 PCP - General Family Medicine 11/17/14 Nabor Nicole MD [address] [place] [address] Consulting General Surgery 01/25/21 Johanna Lincoln Md [address] [place] [address] Psychiatry 08/06/22 Grades 7 And 8 Teacher Relationship Specialty Start Date End Date Santhosh Holden MD [address] [place] [address] PCP - General Family Medicine 11/17/14 Nabor Nicole MD [address] [place] [address] Consulting General Surgery 01/25/21 Johanna Lincoln Md [address] [place], [place] [address] Psychiatry 08/06/22 Grades 7 And 8 Teacher Relationship Specialty Start Date End Date ToddSa haydeeimaDO [address] [facility] [place] [address] Physician Electrophysiology 12/27/19 Shruthi Montenegro DMD [address] [facility] [place] [address] Physician Oral & Maxillofacial Surgery 12/27/19 Grades 7 And 8 Teacher Relationship Specialty Start Date End Date Santhosh Holden MD [address] [place], [place] [address]65641 PCP - General Family Medicine 11/17/14 Nabor Nicole MD [address] [place] [address] Consulting General Surgery 01/25/21 Johanna Lincoln Md [address] [place] [address] Psychiatry 08/06/22 Grades 7 And 8 Teacher Relationship Specialty Start Date End Date Santhosh Holden MD [address] [facility] [place] [address] PCP - General Family Medicine 11/17/14 Nabor Nicole MD [address] [facility] [place] [address] Consulting General Surgery 01/25/21 Johanna Lincoln Md [address] [place] [address] Psychiatry 08/06/22 Grades 7 And 8 Teacher Relationship Specialty Start Date End Date Santhosh Holden MD [address] [facility] [place] [address] PCP - General Family Medicine 11/17/14 Nabor Nicole MD [address] [facility] [place] [address] Consulting General Surgery 01/25/21 Johanna Lincoln Md [address] [place] [address] Psychiatry 08/06/22 Grades 7 And 8 Teacher Relationship Specialty Start Date End Date Santhosh Holden MD [address] [facility] [place] [address] PCP - General Family Medicine 11/17/14 Nabor Nicole MD [address] [facility] [place] [address] Consulting General Surgery 01/25/21 Johanna Lincoln Md [address] [place], [place] [address] Psychiatry 08/06/22 Grades 7 And 8 Teacher Relationship Specialty Start Date End Date Santhosh Holden MD [address] [facility] [place] [address] PCP - General Family Medicine 11/17/14 Nabor Nicole MD [address] [facility] [place] [address] Consulting General Surgery 01/25/21 Johanna Lincoln Md [address] [place] [address] Psychiatry 08/06/22 Grades 7 And 8 Teacher Relationship Specialty Start Date End Date Santhosh Holden MD [address] [facility] [place] [address] PCP - General Family Medicine 11/17/14 Nabor Nicole MD [address] [facility] [place] [address] Consulting General Surgery 01/25/21 Johanna Lincoln Md [address] [place] [address] Psychiatry 08/06/22 Grades 7 And 8 Teacher Relationship Specialty Start Date End Date Santhosh Holden MD [address] [facility] [place] [address] PCP - General Family Medicine 11/17/14 Nabor Nicole MD [address] [facility] [place] [address] Consulting General Surgery 01/25/21 Johanna Lincoln Md [address] [place] [address] Psychiatry 08/06/22 Grades 7 And 8 Teacher Relationship Specialty Start Date End Date Santhosh Holden MD [address] [place] [address] PCP - General Family Medicine 11/17/14 Nabor iNcole MD [address] [place] [address] Consulting General Surgery 01/25/21 Johanna Lincoln Md [address] [place], [place] [address] Psychiatry 08/06/22 Grades 7 And 8 Teacher Relationship Specialty Start Date End Date Santhosh Holden MD [address] [place] [address] PCP - General Family Medicine 11/17/14 Nabor Nicole MD [address] [place] [address] Consulting General Surgery 01/25/21 Johanna Lincoln Md [address] [place] [address] Psychiatry 08/06/22 Team Status: Active Member Role Status Dates Dr. Santhosh Holden MD Family Provider Active Dr. Santhosh Holden MD Primary Care Provider Active Team Status: Inactive Member Role Status Dates Dr. Santhosh Holden MD Primary Care Provider Active Dr. Corey Arrington MD Emergency Provider Active [employer] 7 And 8 Teacher Relationship Specialty Start Date End Date Santhosh Holden MD [address] [place], [place] [address] PCP - General Family Medicine 11/17/14 Nabor Nicole MD [address] [facility] [place] [address] Consulting General Surgery 01/25/21 Johanna Lincoln Md [address] [place] [address] Psychiatry 08/06/22 Grades 7 And 8 Teacher Relationship Specialty Start Date End Date Santhosh Holden MD [address] [place] [address] PCP - General Family Medicine 11/17/14 Nabor Nicole MD [address] [facility] [place] [address] Consulting General Surgery 01/25/21 Johanna Lincoln Md [address] [facility] [place] [address] Psychiatry 08/06/22 Grades 7 And 8 Teacher Relationship Specialty Start Date End Date Santhosh Holden MD [address] [place] [address] PCP - General Family Medicine 11/17/14 Nabor Nicole MD [address] [place] [address] Consulting General Surgery 01/25/21 Johanna Lincoln Md [address] [place] [address] Psychiatry 08/06/22 Grades 7 And 8 Teacher Relationship Specialty Start Date End Date Santhosh Holden MD [address] [place] [address] PCP - General Family Medicine 11/17/14 Nabor Nicole MD [address] [facility] [place] [address] Consulting General Surgery 01/25/21 Johanna Lincoln Md [address] [place] [address] Psychiatry 08/06/22 Grades 7 And 8 Teacher Relationship Specialty Start Date End Date Santhosh Holden MD [address] [facility] [place] [address] PCP - General Family Medicine 11/17/14 Nabor Nicole MD [address] [facility] [place] [address] Consulting General Surgery 01/25/21 Johanna Lincoln Md [address] [place] [address] Psychiatry 08/06/22 Grades 7 And 8 Teacher Relationship Specialty Start Date End Date Santhosh Holden MD [address] [facility] [place] [address] PCP - General Family Medicine 11/17/14 Nabor Nicole MD [address] [facility] [place] [address] Consulting General Surgery 01/25/21 Johanna Lincoln Md [address] [place] [address] Psychiatry 08/06/22 Grades 7 And 8 Teacher Relationship Specialty Start Date End Date Santhosh Holden MD [address] [facility] [place] [address] PCP - General Family Medicine 11/17/14 Nabor Nicole MD [address] [place] [address] Consulting General Surgery 01/25/21 Johanna Lincoln Md [address] [place] [address] Psychiatry 08/06/22 Grades 7 And 8 Teacher Relationship Specialty Start Date End Date Santhosh Holden MD [address] [place] [address] PCP - General Family Medicine 11/17/14 Nabor Nicole MD [address] [place] [address] Consulting General Surgery 01/25/21 Johanna Lincoln Md [address] [place] [address] Psychiatry 08/06/22 Grades 7 And 8 Teacher Relationship Specialty Start Date End Date Santhosh Holden MD [address] [place] [address] PCP - General Family Medicine 11/17/14 Nabor Nicole MD [address] [place] [address] Consulting General Surgery 01/25/21 Grades 7 And 8 Teacher Relationship Specialty Start Date End Date Santhosh Holden MD [address] [place] [address] PCP - General Family Medicine 11/17/14 Nabor Nicole MD [address] [place] [address] Consulting General Surgery 01/25/21 Grades 7 And 8 Teacher Relationship Specialty Start Date End Date Santhosh Holden MD [address] [place] [address] PCP - General Family Medicine 11/17/14 Nabor Nicole MD [address] [facility] [place], [place] [address] [phone] Consulting General Surgery 01/25/21 Johanna Lincoln Md [address] [place] [address] Psychiatry 08/06/22 Grades 7 And 8 Teacher Relationship Specialty Start Date End Date Santhosh Holden MD [address] [place] [address] PCP - General Family Medicine 11/17/14 Nabor Nicole MD [address] [facility] [place] [address] Consulting General Surgery 01/25/21 Johanna Lincoln Md [address] [place] [address] Psychiatry 08/06/22 Grades 7 And 8 Teacher Relationship Specialty Start Date End Date Santhosh Holden MD [address] [facility] [place] [address] PCP - General Family Medicine 11/17/14 Nabor Nicole MD [address] [facility] [place] [address] Consulting General Surgery 01/25/21 Johanna Lincoln Md [address] [place] [address] Psychiatry 08/06/22 Grades 7 And 8 Teacher Relationship Specialty Start Date End Date Santhosh Holden MD [address] [place] [address] PCP - General Family Medicine 11/17/14 Nabor Nicole MD [address] [place] [address] Consulting General Surgery 01/25/21 Johanna Lincoln Md [address] [place] [address] Psychiatry 08/06/22 Grades 7 And 8 Teacher Relationship Specialty Start Date End Date Santhosh Holden MD [address] [facility] [place] [address] PCP - General Family Medicine 11/17/14 Nabor Nicole MD [address] [facility] [place] [address] Consulting General Surgery 01/25/21 Johanna Lincoln Md [address] [place] [address] Psychiatry 08/06/22 Grades 7 And 8 Teacher Relationship Specialty Start Date End Date Santhosh Holden MD [address] [facility] [place] [address] PCP - General Family Medicine 11/17/14 Nabor Nicole MD [address] [facility] [place] [address] Consulting General Surgery 01/25/21 Johanna Lincoln Md [address] [place] [address] Psychiatry 08/06/22 Grades 7 And 8 Teacher Relationship Specialty Start Date End Date Santhosh Holden MD [address] [place] [address] PCP - General Family Medicine 11/17/14 Nabor Nicole MD [address] [place] [address] Consulting General Surgery 01/25/21 Johanna Lincoln Md [address] [place] [address] Psychiatry 08/06/22 Grades 7 And 8 Teacher Relationship Specialty Start Date End Date Santhosh Holden MD [address] [facility] [place] [address] PCP - General Family Medicine 11/17/14 Nabor Nicole MD [address] [facility] [place] [address] Consulting General Surgery 01/25/21 Johanna Lincoln Md [address] [place] [address] Psychiatry 08/06/22 Grades 7 And 8 Teacher Relationship Specialty Start Date End Date Santhosh Holden MD [address] [facility] [place] [address] PCP - General Family Medicine 11/17/14 Nabor Nicole MD [address] [facility] [place] [address] Consulting General Surgery 01/25/21 Johanna Lincoln Md [address] [place] [address] Psychiatry 08/06/22 Grades 7 And 8 Teacher Relationship Specialty Start Date End Date Santhosh Holden MD [address] [facility] [place] [address] PCP - General Family Medicine 11/17/14 Nabor Nicole MD [address] [facility] [place] [address] Consulting General Surgery 01/25/21 Johanna Lincoln Md [address] [place] [address] Psychiatry 08/06/22 Grades 7 And 8 Teacher Relationship Specialty Start Date End Date Santhosh Holden MD [address] [facility] [place] [address] PCP - General Family Medicine 11/17/14 Nabor Nicole MD [address] [facility] [place] [address] Consulting General Surgery 01/25/21 Johanna Lincoln Md [address] [place] [address] Psychiatry 08/06/22 Grades 7 And 8 Teacher Relationship Specialty Start Date End Date Santhosh Holden MD [address] [facility] [place] [address] PCP - General Family Medicine 11/17/14 Nabor Nicole MD [address] [facility] [place] [address] Consulting General Surgery 01/25/21 Johanna Lincoln Md [address] [place] [address] Psychiatry 08/06/22 Grades 7 And 8 Teacher Relationship Specialty Start Date End Date Santhosh Holden MD [address] [place], [place] [address] PCP - General Family Medicine 11/17/14 Nabor Nicole MD [address] [place], [place] [address] Consulting General Surgery 01/25/21 Johanna Lincoln Md [address] [place], [place] [address] Psychiatry 08/06/22 Grades 7 And 8 Teacher Relationship Specialty Start Date End Date Santhosh Holden MD [address] [place] [address] PCP - General Family Medicine 11/17/14 Nabor Nicole MD [address] [place] [address] Consulting General Surgery 01/25/21 Johanna Lincoln Md [address] [place] [address] Psychiatry 08/06/22 Grades 7 And 8 Teacher Relationship Specialty Start Date End Date Nory Villeda DO [address] [place] [address] Physician Electrophysiology 12/27/19 Shruthi Montenegro DMD [address] [place] [address] Physician Oral & Maxillofacial Surgery 12/27/19 Grades 7 And 8 Teacher Relationship Specialty Start Date End Date Santhosh Holden MD [address] [facility] [place] [address] PCP - General Family Medicine 11/17/14 Nabor Nicole MD [address] [facility] [place] [address] Consulting General Surgery 01/25/21 Johanna Lincoln Md [address] [place] [address] Psychiatry 08/06/22 Grades 7 And 8 Teacher Relationship Specialty Start Date End Date Santhosh Holden MD [address] [place] [address] PCP - General Family Medicine 11/17/14 Nabor Nicole MD [address] [place] [address] Consulting General Surgery 01/25/21 Johanna Lincoln Md [address] [place] [address] Psychiatry 08/06/22 Grades 7 And 8 Teacher Relationship Specialty Start Date End Date Santhosh Holden MD [address] [place] [address] PCP - General Family Medicine 11/17/14 Nabor Nicole MD [address] [place] [address] Consulting General Surgery 01/25/21 Johnana Lincoln Md [address] [place] [address] Psychiatry 08/06/22 Grades 7 And 8 Teacher Relationship Specialty Start Date End Date Santhosh Holden MD [address] [facility] [place] [address] PCP - General Family Medicine 11/17/14 Nabor Nicole MD [address] [place] [address] Consulting General Surgery 01/25/21 Johanna Lincoln Md [address] [place] [address] Psychiatry 08/06/22 Grades 7 And 8 Teacher Relationship Specialty Start Date End Date Santhosh Holden MD [address] [facility] [place] [address] PCP - General Family Medicine 11/17/14 Nabor Nicole MD [address] [place] [address] Consulting General Surgery 01/25/21 Johanna Lincoln Md [address] [place] [address] Psychiatry 08/06/22 Grades 7 And 8 Teacher Relationship Specialty Start Date End Date Santhosh Holden MD [address] [place] [address] PCP - General Family Medicine 11/17/14 Nabor Nicole MD [address] [facility] [place] [address] Consulting General Surgery 01/25/21 Johanna Lincoln Md [address] [place] [address] Psychiatry 08/06/22 Grades 7 And 8 Teacher Relationship Specialty Start Date End Date Santhosh Holden MD [address] [address] PCP - General Family Medicine 11/17/14 Nabor Nicole MD [address] [address] Consulting General Surgery 01/25/21 Johanna Lincoln Md [address] [facility] [place] [address] Psychiatry 08/06/22 Grades 7 And 8 Teacher Relationship Specialty Start Date End Date Santhosh Holden MD [address] [address] PCP - General Family Medicine 11/17/14 Nabor Nicole MD [address] [facility] [place] [address] Consulting General Surgery 01/25/21 Grades 7 And 8 Teacher Relationship Specialty Start Date End Date Santhosh Holden MD [address] [address] PCP - General Family Medicine 11/17/14 Nabor Nicole MD [address] [facility] [place] [address] Consulting General Surgery 01/25/21 Grades 7 And 8 Teacher Relationship Specialty Start Date End Date Santhosh Holden MD [address] [place], [place] [address] PCP - General Family Medicine 11/17/14 Nabor Nicole MD [address] [facility] [place] [place] [address] Consulting General Surgery 01/25/21 Johanna Lincoln Md [address] [place], [place] [address] Psychiatry 08/06/22 Grades 7 And 8 Teacher Relationship Specialty Start Date End Date Santhosh Holden MD [address] [facility], [place] [address] PCP - General Family Medicine 11/17/14 Grades 7 And 8 Teacher Relationship Specialty Start Date End Date Santhosh Holden MD [address] [facility], [place] [address] PCP - General Family Medicine 11/17/14 Nabor Nicole MD [address] [facility] [place] [address] Consulting General Surgery 01/25/21 Johanna Lincoln Md [address] [place] [address] Psychiatry 08/06/22 Grades 7 And 8 Teacher Relationship Specialty Start Date End Date Santhosh Holden MD [address] [facility] [place] [address] PCP - General Family Medicine 11/17/14 Nabor Nicole MD [address] [facility] [place] [address] Consulting General Surgery 01/25/21 Johanna Lincoln Md [address] [place], [place] [address] Psychiatry 08/06/22 Grades 7 And 8 Teacher Relationship Specialty Start Date End Date Santhosh Holden MD [address] [facility] [place] [address] PCP - General Family Medicine 11/17/14 Nabor Nicole MD [address] [address] Consulting General Surgery 01/25/21 Johanna Lincoln Md [address] [place] [address] Psychiatry 08/06/22 Grades 7 And 8 Teacher Relationship Specialty Start Date End Date Santhosh Holden MD [address] [place] [address] PCP - General Family Medicine 11/17/14 Nabor Nicole MD [address] [facility] [place] [address] Consulting General Surgery 01/25/21 Johanna Lincoln Md [address] [place] [address] Psychiatry 08/06/22 Saumya Vargas APRN.EPITAXIAL REACTOR TECHNICIAN [address] [place] [address] Ramp Jockey Family Medicine 02/29/24 Nanette Carroll APRN.EPITAXIAL REACTOR TECHNICIAN [address] [facility] [place] [address] Ramp Jockey Family Medicine 02/29/24 Grades 7 And 8 Teacher Relationship Specialty Start Date End Date Santhosh Holden MD [address] [place] [address] PCP - General Family Medicine 11/17/14 Nabor Nicole MD [address] [facility] [place] [address] Consulting General Surgery 01/25/21 Johanna Lincoln Md [address] [place] [address] Psychiatry 08/06/22 Saumya Vargas APRN.EPITAXIAL REACTOR TECHNICIAN [address] [place] [address] R[facility] Jockey Family Medicine 02/29/24 Nanette Carroll APRN.EPITAXIAL REACTOR TECHNICIAN [address] [facility] [place] [address] Ramp Jockey Family Medicine 02/29/24 Grades 7 And 8 Teacher Relationship Specialty Start Date End Date Santhosh Holden MD [address] [place] [address] PCP - General Family Medicine 11/17/14 Nabor Nicole MD [address] [facility] [place] [address] Consulting General Surgery 01/25/21 Johanna Lincoln Md [address] [place] [address] Psychiatry 08/06/22 Saumya Vargas, VIC.EPITAXIAL REACTOR TECHNICIAN [address] [place] [address] [employer] Family Medicine 02/29/24 Nanette Carroll APRN.EPITAXIAL REACTOR TECHNICIAN [address] [facility] [place] [address] Ramp Jockey Family Medicine 02/29/24 Grades 7 And 8 Teacher Relationship Specialty Start Date End Date Santhosh Holden MD [address] [facility] [place] [address] PCP - General Family Medicine 11/17/14 Nabor Nicole MD [address] [facility] [place] [address] Consulting General Surgery 01/25/21 Johanna Lincoln Md [address] [place] [address] Psychiatry 08/06/22 Saumya Vargas APRN.EPITAXIAL REACTOR TECHNICIAN [address] [place] [address] [facility] Family Medicine 02/29/24 Nanette Carroll APRN.EPITAXIAL REACTOR TECHNICIAN [address] [place] [address] [employer] [facility] Family Medicine 02/29/24 Grades 7 And 8 Teacher Relationship Specialty Start Date End Date Santhosh Holden MD [address] [place] [address] PCP - General Family Medicine 11/17/14 Nabor Nicole MD [address] [place] [address] Consulting General Surgery 01/25/21 Johanna Lincoln Md [address] [facility] [place] [address] Psychiatry 08/06/22 Saumya Vargas APRN.EPITAXIAL REACTOR TECHNICIAN [address] [place] [address] [facility] Family Medicine 02/29/24 Nanette Carroll APRN.EPITAXIAL REACTOR TECHNICIAN [address] [place] [address] Ramp Jockey Family [facility] 02/29/24 Grades 7 And 8 Teacher Relationship Specialty Start Date End Date Santhosh Holden MD [address] [address] PCP - General Family Medicine 11/17/14 Nabor Nicole MD [address] [place] [address] Consulting General Surgery 01/25/21 Johanna Lincoln Md [address] [facility] [place] [address] Psychiatry 08/06/22 Saumya Vargas PARAFFIN PLANT OPERATOR.EPITAXIAL REACTOR TECHNICIAN [address] [place] [address] [facility] Family Medicine 02/29/24 Nanette Carroll PARAFFIN PLANT OPERATOR.EPITAXIAL REACTOR TECHNICIAN [address] [place] [address] [facility] Family Medicine 02/29/24 Grades 7 And 8 Teacher Relationship Specialty Start Date End Date Santhosh Holden MD [address] [place] [address] PCP - General Family Medicine 11/17/14 Nabor Nicole MD [address] [place] [address] Consulting General Surgery 01/25/21 Johanna Lincoln Md [address] [facility] [address] Psychiatry 08/06/22 Saumya Vargas, VIC.EPITAXIAL REACTOR TECHNICIAN [address] [place] [address] [facility] Family Medicine 02/29/24 Nanette Carroll APRN.EPITAXIAL REACTOR TECHNICIAN [address] [address] [facility] Family Medicine 02/29/24 Grades 7 And 8 Teacher Relationship Specialty Start Date End Date Santhosh Holden MD [address] [place] [address] PCP - General Family Medicine 11/17/14 Nabor Nicole MD [address] [place] [address] Consulting General Surgery 01/25/21 Johanna Lincoln Md [address] [place] [address] Psychiatry 08/06/22 Saumya Vargas, VIC.EPITAXIAL REACTOR TECHNICIAN [address] [place] [address] [facility] Family Medicine 02/29/24 Nanette Carroll PARAFFIN PLANT OPERATOR.EPITAXIAL REACTOR TECHNICIAN [address] [facility] [place] [address] R[employer] Jockey Family Medicine 02/29/24 Grades 7 And 8 Teacher Relationship Specialty Start Date End Date Santhosh Holden MD [address] [place] [address] PCP - General Family Medicine 11/17/14 Nabor Nicole MD [address] [facility] [place] [address] Consulting General Surgery 01/25/21 Johanna Lincoln Md [address] [place] [address] Psychiatry 08/06/22 Saumya Vargas APRN.EPITAXIAL REACTOR TECHNICIAN [address] [facility] [place] [address] [facility] Family Medicine 02/29/24 Nanette Craroll APRN.EPITAXIAL REACTOR TECHNICIAN [address] [place] [address] [facility] Family Medicine 02/29/24 Grades 7 And 8 Teacher Relationship Specialty Start Date End Date Santhosh Holden MD [address] [place] [address] PCP - General Family Medicine 11/17/14 Nabor Nicole MD [address] [place] [address] Consulting General Surgery 01/25/21 Johanna Lincoln Md [address] [place] [address] Psychiatry 08/06/22 Saumya Vargas APRN.EPITAXIAL REACTOR TECHNICIAN [address] [facility] [place] [address] R[employer] Jockey Family Medicine 02/29/24 Nanette Carroll APRN.EPITAXIAL REACTOR TECHNICIAN [address] [place] [address] [employer] Family Medicine 02/29/24 Grades 7 And 8 Teacher Relationship Specialty Start Date End Date Santhosh Holden MD [address] [place] [address] PCP - General Family Medicine 11/17/14 Nabor Nicole MD [address] [place] [address] Consulting General Surgery 01/25/21 Johanna Lincoln Md [address] [place] [address] Psychiatry 08/06/22 Saumya Vargas APRN.EPITAXIAL REACTOR TECHNICIAN [address] [place] [address] [facility] Family Medicine 02/29/24 Nanette Carroll APRN.EPITAXIAL REACTOR TECHNICIAN [address] [place] [address] [facility] Family Medicine 02/29/24 Grades 7 And 8 Teacher Relationship Specialty Start Date End Date Santhosh Holden MD [address] [place] [address] PCP - General Family Medicine 11/17/14 Nabor Nicole MD [address] [place] [address] Consulting General Surgery 01/25/21 Johanna Lincoln Md [address] [facility] [place] [address] Psychiatry 08/06/22 Saumya Vargas APRN.EPITAXIAL REACTOR TECHNICIAN [address] [place] [address] [facility] Family Medicine 02/29/24 Nanette Carroll APRN.EPITAXIAL REACTOR TECHNICIAN [address] [facility] [place] [address] Ramp Jockey Family [facility] 02/29/24 Grades 7 And 8 Teacher Relationship Specialty Start Date End Date Santhosh Holden MD [address] [place] [address] PCP - General Family Medicine 11/17/14 Nabor Nicole MD [address] [facility] [place] [address] Consulting General Surgery 01/25/21 Johanna Lincoln Md [address] [facility] [place] [address] Psychiatry 08/06/22 Saumya Vargas, VIC.EPITAXIAL REACTOR TECHNICIAN [address] [facility] [place] [address] R[employer] Jockey Family [facility] 02/29/24 Nanette Carroll APRN.EPITAXIAL REACTOR TECHNICIAN [address] [place] [address] Ramp Jockey [facility] 02/29/24 Grades 7 And 8 Teacher Relationship Specialty Start Date End Date Santhosh Holden MD [address] [facility] [place] [address] PCP - General Family Medicine 11/17/14 Nabor Nicole MD [address] [facility] [place] [address] Consulting General Surgery 01/25/21 Johanna Lincoln Md [address] [place], [place] [address] Psychiatry 08/06/22 Saumya Vargas, PARAFFIN PLANT OPERATOR.EPITAXIAL REACTOR TECHNICIAN [address] [place] [address] [facility] Family Medicine 02/29/24 Nanette Carroll PARAFFIN PLANT OPERATOR.EPITAXIAL REACTOR TECHNICIAN [address] [place] [address] [facility] J[facility] Family Medicine 02/29/24 Grades 7 And 8 Teacher Relationship Specialty Start Date End Date Santhosh Holden MD [address] [address] PCP - General Family Medicine 11/17/14 Nabor Nicole MD [address] [place] [address] Consulting General Surgery 01/25/21 Johanna Lincoln Md [address] [place] [address] Psychiatry 08/06/22 Saumya Vargas APRN.EPITAXIAL REACTOR TECHNICIAN [address] [place] [address] [employer] [facility] Family Medicine 02/29/24 Nanette Carroll, PARAFFIN PLANT OPERATOR.EPITAXIAL REACTOR TECHNICIAN [address] [place] [address] R[employer] Jockey Family Medicine 02/29/24 Grades 7 And 8 Teacher Relationship Specialty Start Date End Date Santhosh Holden MD [address] [place] [address] PCP - General Family Medicine 11/17/14 Nabor Nicole MD [address] [place] [address] Consulting General Surgery 01/25/21 Johanna Lincoln Md [address] [place] [address] Psychiatry 08/06/22 Saumya Vargas APRN.EPITAXIAL REACTOR TECHNICIAN [address] [facility] [place] [address] R[facility] Jockey Family Medicine 02/29/24 Nanette Carroll APRN.EPITAXIAL REACTOR TECHNICIAN [address] [facility] [place] [address] Ramp Jockey Family Medicine 02/29/24 Grades 7 And 8 Teacher Relationship Specialty Start Date End Date Santhosh Holden MD [address] [facility] [place] [address] PCP - General Family Medicine 11/17/14 Nabor Nicole MD [address] [facility] [place] [address] Consulting General Surgery 01/25/21 Johanna Lincoln Md [address] [place] [address] Psychiatry 08/06/22 Saumya Vargas APRN.EPITAXIAL REACTOR TECHNICIAN [address] [facility] [place] [address] [facility] J[facility] Family Medicine 02/29/24 Nanette Carroll APRN.EPITAXIAL REACTOR TECHNICIAN [address] [facility] [place] [address] R[employer] Jockey Family Medicine 02/29/24 Grades 7 And 8 Teacher Relationship Specialty Start Date End Date Santhosh Holden MD [address] [facility] [place] [address] PCP - General Family Medicine 11/17/14 Nabor Nicole MD [address] [facility] [place] [address] Consulting General Surgery 01/25/21 Johanna Lincoln Md [address] [place], [place] [address] Psychiatry 08/06/22 Saumya Vargas APRN.EPITAXIAL REACTOR TECHNICIAN [address] [place] [address] Ramp Jockey Family [facility] 02/29/24 Nanette Carroll APRN.EPITAXIAL REACTOR TECHNICIAN [address] [place] [address] Ramp Jockey Family [facility] 02/29/24 Grades 7 And 8 Teacher Relationship Specialty Start Date End Date Santhosh Holden MD [address] [place] [address] PCP - General Family Medicine 11/17/14 Nabor Nicole MD [address] [place] [address] Consulting General Surgery 01/25/21 Johanna Lincoln Md [address] [place] [address] Psychiatry 08/06/22 Saumya Vargas APRN.EPITAXIAL REACTOR TECHNICIAN [address] [place] [address] R[facility] Jockey Family Medicine 02/29/24 Nanette Carroll APRN.EPITAXIAL REACTOR TECHNICIAN [address] [place] [address] Ramp Jockey Family Medicine 02/29/24 Grades 7 And 8 Teacher Relationship Specialty Start Date End Date Santhosh Holden MD [address] [place] [address] PCP - General Family Medicine 11/17/14 Nabor Nicole MD [address] [place] [address] Consulting General Surgery 01/25/21 [place] [address] [place], [place] [address] [place] [address] Psychiatry 08/06/22 Saumya Vargas APRN.EPITAXIAL REACTOR TECHNICIAN [address] [place] [address] R[facility] Jockey Family Medicine 02/29/24 Nanette Carroll APRN.EPITAXIAL REACTOR TECHNICIAN [address] [place] [address] Ramp Jockey Family [facility] 02/29/24 Grades 7 And 8 Teacher Relationship Specialty Start Date End Date Santhosh Holden MD [address] [place] [address] PCP - General Family Medicine 11/17/14 Nabor Nicole MD [address] [place] [address] Consulting General Surgery 01/25/21 Johanna Lincoln Md [address] [facility] [place] [address] Psychiatry 08/06/22 Saumya Vargas APRN.EPITAXIAL REACTOR TECHNICIAN [address] [place] [address] [facility] Family Medicine 02/29/24 Nanette Carroll, PARAFFIN PLANT OPERATOR.EPITAXIAL REACTOR TECHNICIAN [address] [address] Ramp Jockey Family Medicine 02/29/24 Grades 7 And 8 Teacher Relationship Specialty Start Date End Date Santhosh Holden MD [address] [address] PCP - General Family Medicine 11/17/14 Nabor Nicole MD [address] [address] Consulting General Surgery 01/25/21 Johanna Lincoln Md [address] [place] [address] Psychiatry 08/06/22 Saumya Vargas, PARAFFIN PLANT OPERATOR.EPITAXIAL REACTOR TECHNICIAN [address] [place] [address] [facility] Family Medicine 02/29/24 Nanette Carroll, PARAFFIN PLANT OPERATOR.EPITAXIAL REACTOR TECHNICIAN [address] [address] R[employer] Jockey Family Medicine 02/29/24 Grades 7 And 8 Teacher Relationship Specialty Start Date End Date Santhosh Holden MD [address] [address] PCP - General Family Medicine 11/17/14 Nabor Nicloe MD [address] [address] Consulting General Surgery 01/25/21 Johanna Lincoln Md [address] [place], [place] [address] Psychiatry 08/06/22 Saumya Vargas APRN.EPITAXIAL REACTOR TECHNICIAN [address] [facility] [place] [address] Ramp Jockey Family Medicine 02/29/24 Nanette Carroll APRN.EPITAXIAL REACTOR TECHNICIAN [address] [facility] [place] [address] Ramp Jockey Family Medicine 02/29/24 Grades 7 And 8 Teacher Relationship Specialty Start Date End Date Santhosh Holden MD [address] [place], [place] [address] PCP - General Family Medicine 11/17/14 Nabor Nicole MD [address] [facility] [place] [address] Consulting General Surgery 01/25/21 Johanna Lincoln Md [address] [place] [address] Psychiatry 08/06/22 Saumya Vargas APRN.EPITAXIAL REACTOR TECHNICIAN [address] [facility] [place] [address] R[facility] J[facility] Family Medicine 02/29/24 Nanette Carroll PARAFFIN PLANT OPERATOR.EPITAXIAL REACTOR TECHNICIAN [address] [facility] [place] [address] Ramp Jockey Family Medicine 02/29/24 Team Status: Active Member [...] BE BASED ON THE PRIMARY CLINICAL RECORDS. [facility]. provides no warranty or guarantee of the accuracy or completeness of information in this document.
--- NOTE | 2024-09-09 20:21 | CASEMGMT ---
Care Management Face to Face with patient for initial transition planning/care coordination assessment in the ED. This development writer introduced self and role at [facility]. Patient asleep, but patient's , Joao, helped with answering questions. Joao willing to participate in assessment and is able to answer all questions appropriately. Care providers, pharmacy, and demographics verified. Admitting Diagnosis: suspected MORE Other diagnosis history: essential hypertension, hyperlipidemia, hypothyroidism, DM-2, diabetic neuropathy; on gabapentin TID, GERD PCP: Radha Specialists: Dr. Orozco, psych ([place]) Preferred Pharmacy: [facility] Insurance: [employer] (primary). [employer] (secondary). Prescription Benefit: yes Living Will/HPOA: Joao did not know. LNOK: 5 children; living with son and MATT Living Arrangements: lives in duplex with Jooa on first floor while son and DIL live downstairs. No steps to enter. DIL helps manage patient's medication, as well as helps with all ADLs and IADLs. Transportation: DIL DME: walker, wheelchair, shower chair HHC: none SNF/Rehab: none Community Resources: none Behavioral Health History: anxiety and depression, per medical records Patient goals: Joao states patient will wish to discharge home, denies need for home health care at this time. Patient denies any further needs or concerns at this time. Disposition Plan: admission to acute; RN CM/SW to follow for discharge planning needs that may arise. Caitlin Albarran, SPRING SETTER, SALES OPERATIONS COORDINATOR
--- OUTSIDE RECORDS SUMMARY | 2024-09-09 20:43 | XMS RPT_ITS | CCD ---
Author Organization [facility] Care Team Providers Care Escalator Mechanic Name Role Phone PROVIDER, UNKNOWN Attending Unavailable PROVIDER, UNKNOWN Admitting Unavailable PATIENT, SELF Referring Unavailable Santhosh Holden MD Primary Care Provider Nabor Nicole MD Unavailable Nabor Nicole MD Unavailable Karim DO, Nory Unavailable Montenegro DMD, Shruthi Unavailable Santhosh Holden MD Primary Care Provider Nabor Nicole MD Unavailable Santhosh Holden MD Primary Care Provider [...] Care Unavailable Unavailable Primary Care Provider Unavailale Vargas DIRECTOR HR COMMUNICATIONS.ACQUISITION ASSOCIATE, Saumya Unavailable Suppan DIRECTOR HR COMMUNICATIONS.ACQUISITION ASSOCIATE, Nanette A Unavailable Nabor Nicole MD Unavailable Suppan DIRECTOR HR COMMUNICATIONS.ACQUISITION ASSOCIATE, Nanette A Unavailable NAVIN, SANTHOSH Zepeda Primary Care Unavailable NAVIN, SANTHOSH J Referring Unavailable NAVIN, SANTHOSH J Primary Care Unavailable SAUMYA VARGAS Attending Unavailable NAVIN, SANTHOSH J Primary Care Unavailable NAVIN, SANTHOSH J Referring Unavailable NAVIN, SANTHOSH J Primary Care Unavailable WEISSFELD, JOVANNA Attending Unavailable NAVIN, SANTHOSH J Primary Care Unavailable NAVIN, SANTHOSH J Referring Unavailable JOSE MIR Attending Unavailable NAVIN, SANTHOSH J Primary Care Unavailable NAVIN, SANTHOSH J Referring Unavailable DRU COLLADO Attending Unavailable NAVIN, SANTHOSH J Primary Care Unavailable WEISSFELD, JOVANNA Referring Unavailable WEISSFELD, JOVANNA Attending Unavailable NAVIN, SANTHOSH Zepeda Primary Care Unavailable WEISSFELD, JOVANNA Referring Unavailable WEISSFELD, JOVANNA Attending Unavailable NAVIN, SANTHOSH J Primary Care Unavailable ROS ORTIZ Attending Unavailable NAVIN, SANTHOSH J Primary Care Unavailable NAVIN, SANTHOSH J Attending Unavailable NAVIN, SANTHOSH Zepeda Primary Care Unavailable SELF Referring Unavailable TESTRAKE, DRU Attending Unavailable NAVIN, SANTHOSH Zepeda Primary Care Unavailable SELF Referring Unavailable TESTRAPOLO, DRU Attending Unavailable NAVIN, SANTHOSH J Primary Care Unavailable TESTRAKE, DRU Referring Unavailable NAVIN, SANTHOSH Zepeda Primary Care Unavailable TESTRAKE, DRU Referring Unavailable TESTRAKE, DRU Attending Unavailable NAVIN, SANTHOSH Zepeda Primary Care Unavailable TESTRAKE, DRU Referring Unavailable NAVIN, SANTHOSH Zepeda Primary Care Unavailable NAVIN, SANTHOSH Zepeda Attending Unavailable NAVIN, SANTHOSH Zepeda Primary Care Unavailable NAVIN, SANTHOSH J Referring Unavailable NAVIN, SANTHOSH Zepeda Primary Care Unavailable TESTRAKE, DRU Referring Unavailable NAVIN, SANTHOSH Zepeda Primary Care Unavailable TESTRAPOLO, DRU Attending Unavailable [place] Dr. Santhosh YU Primary Care Provider Dr. Sachin Walton DO Emergency Provider Sachin Walton Attending UnavailSanthosh Huerta Primary Care Unavailable Navin, Santhosh Primary Care Unavailable Navin, Santhosh Attending Unavailable Santhosh Holden Referring Unavailable CASANDRA KELLEY DO Attending Unavailable CASANDRA KELLEY DO Primary Care Unavailable CASANDRA KELLEY DO Admitting Unavailable Allergies Allergy Classification Reported Allergen(s) Allergy Type Date of Onset Reaction(s) Facility (20 sources) Citric Acid; Translations: [CITRIC ACID] Drug Allergy 7 Intolerance, Other [facility] Repository (1 source) Mold; Translations: [MOLDS] Propensity to adverse reactions to drug (disorder) 9 [facility] Repository (7 sources) CAT HAIR EXTRACT; Translations: [CAT HAIR EXTRACT] Propensity to adverse reactions to drug (disorder) 6 Itching The [facility] Repository (20 sources) Cat; Translations: [CATS] Allergy to substance 6 Itching [facility] (20 sources) Cat Hair Extract; Translations: [CAT HAIR STANDARDIZED ALLERGENIC EXTRACT] Drug Allergy 6 Itching [facility] (20 sources) Mold Spores; Translations: [MOLD SPORES] Allergy to substance 6 Other: See Comments [facility] (8 sources) Mold Extract Drug Allergy 9 Nausea [facility] (20 sources) zolpidem; Translations: [ZOLPIDEM] Drug Allergy 3 Other: See Comments [facility] (3 sources) animal dander; Translations: [animal dander] Allergy to substance 3 difficulty breathing [facility] (1 source) Mold Extract Drug Allergy 5 [facility] Repository (1 source) zolpidem Drug Allergy 5 [facility] Repository Medications Current Medications Medication Drug [...] Active Start: 05-06-2019 take 1 tablet by uznilda every six hours as needed for pain acetaminophen (TYLENOL) 500 MG tablet Take 1 Tablet by mouth every 6 hours as needed for Pain or Fever. 40 Tablet 1 05/06/2019 Active Comment on above: Take 2 tablets by mo [facility] every 8 hours as needed for Pain. [...] above: Take 1 tablet by zunilda th every 6 hours as needed for pain [...] 31, 2016 12:00am August 29, 2024 9:33am S-Qqyynox-D-Biotin-Minerals- FA (DIATX ZN ORAL) (6 sources) Start: 04-13-2018 I-Nsereek-Q-Biotin-Minerals- FA (DIATX ZN ORAL) Take 1 Tablet by mouth. 04/13/2018 Active Start: 04-13-2018 E-Jvncjwv-T-Bi aesh-Excnxvlw-OU (DIATX ZN ORAL) Take 1 Tablet by [...] Acid Star t: 10-21 End: 11-22 25 take 1 tablet by mouth three times daily carbidopa-levodopa (SINEMET) 25-100 mg per tablet Indications: Tremor Take 1 tablet by mouth three times a day. 270 tablet 1 06/22/2024 12/19/2024 Active Comment on above: Take 1 tablet [...] without macular edema, bilateral (HCC) 1 mg two times a day. 05/22/2016 Active Start: 05-22-2016 clonazePAM (KL ONOPIN) 1 mg [...] chin strap (if indicated) and lifetime supplies ([employer]) DX: KRZYSZTOF G47.33 1 Device 07/19/2018 Active Start: 07-19-2018 COMPOUNDED PRE SCRIPTION Indications: Obstructive sleep apnea Initiate AutoPAP @ 10-20 cm of water with humidification mask (per patient preference) optional chin strap (if indicated) and lifetime supplies ([employer]) DX: KRZYSZTOF G47.33 1 Device 0 07/19/2018 [...] disease), lumbar , PVD (peripheral vascular disease) (HCC) , Claudication (HCC) Lightweight wheelchair DX: DDD, neuropathy 1 Each [...] chin strap (if indicated) and lifetime supplies ([facility]) DX: KRZYSZTOF G47.33 CPAP (20 sources) [...] sources) Peroxisome Proliferator Receptor alpha Agonist Start: 02-06-2023 End: 02-17-2024 take 1 tablet [...] daily dose of 900mg Start: 08-05-2018 End: 11-10-2024 take 1 capsule by mouth three times daily gabapentin (NEURONTIN) 300 mg capsule Indications: Sciatica, unspecified laterality Take 1 capsule by mouth three times a day for 90 days. 270 capsule 08/12/2024 11/10/2024 Active Start: 08-05-2018 End: 11-09-2024 take 1 [...] 180 days. Take 1 capsule by mo [facility] three times daily for 90 days. Take 1 capsule by mo [facility] three times daily for 30 days. Take 1 capsule by mo [facility] three times a day for 30 days. Take 1 capsule by [facility] three times a day for 90 days. Take 1 tablet by [facility] three times a day for 180 [...] Comment on above: Take 1 tablet by [facility] twice daily. Take 1 tablet by [facility] two times a day. lidocaine hydrochloride 20 mg/ml mucous membrane topical solution (6 sources) Antiarrhythmic, Amide Local Anesthetic Start: Lidocaine HCl (LIDOCAINE VISCOUS) 2 % SOLN solution Take 5 mL by mouth as needed for Pain. 100 mL 1 05/06/2019 Active lisinopril 5 mg oral tablet (20 sources) Angiotensin Converting Enzyme Inhibitor Start: 018 End: 025 take 1 tablet by mouth once daily lisinopril (ZESTRIL) 5 mg tablet Indications: Microalbuminuria Take 1 tablet by mouth once daily. 90 tablet 3 07/27/2024 Active Comment on above: Take 1 tablet by zunilda th once daily. loratadine 10 mg oral tablet (20 sources) take 1 tablet by mouth once daily loratadine (CLARITIN) 10 mg tablet Take 10 mg by mouth once daily. Active 24 hr metFORMIN hydrochloride 500 mg extended release oral tablet (20 sources) Biguanide Start: 025 End: take 3 tablets by mouth once daily at breakfast metFORMIN ER (GLUCOPHAGE XR) 500 mg 24 hr tablet Indications: Type 2 diabetes mellitus with diabetic neuropathy, without long-term current use of insulin (HCC) Take 3 tablets by mouth daily with breakfast. 270 tablet 1 05/16/2024 11/12/2024 Active Start: 05-08-2021 End: 05-14-2024 take 3 tablets [...] on above: Take 3 tablets by mo [facility] daily with breakfast. 24 hr metoprolol succinate 25 mg extended release oral tablet (20 sources) beta-Adrenergic Shara Start: 06-03-2019 End: 11-09-2024 take 1 tablet by mouth once daily metoprolol succinate ER (TOPROL XL) 25 mg 24 hr tablet Take 1 tablet by mouth once daily. 30 tablet 5 05/13/2024 11/09/2024 Active Comment on above: Take 25 mg by [...] Comment on above: [facility] nitroglycerin 0.3 mg sublingual tablet [...] tablet (20 sources) Serotonin-3 Receptor Antagonist Start: 9 End: 5 take 1 tablet by mouth once daily as needed for nausea and vomiting Ondansetron Hcl 4 mg tablet Active 4 mg PO DAILY as needed for nausea and vomiting August 29, 2024 12:00am Comment on above: Take 1 tablet by [facility] once daily as needed. pantoprazole 40 mg delayed release oral tablet (20 sources) Proton Pump Inhibitor Start: 9 End: 5 take 1 tablet by mouth twice daily pantoprazole DR (PROTONIX) 40 mg tablet Indications: Powers's esophagus with dysplasia Take 1 tablet by mouth two times a day. 180 tablet 1 05/06/2024 Active Start: 08-23-2015 take 2 tablets by mo [facility] once daily Pantoprazole 40 MG tablet Active 80 mg PO DAILY August 23, 2015 12:00am Start: 08-23-2015 take 40 mg by mouth once daily Pantoprazole Active 40 MG PO DAILY August 23, 2015 12:00am Comment on above: Take 1 [facility]. Take 1 [facility] two times a day. phenylephrine hydrochloride [...] on above: Take 2 tablets by mo [facility] once daily for 5 days. prochlorperazine 10 mg oral tablet (20 sources) Phenothiazine Start: 023 End: 025 take 1 tablet by mouth twice daily as needed Prochlorperazine Maleate 10 mg tablet Active 10 mg PO TWICE DAILY NEEDED as needed for migraine August 29, 2024 12:00am Comment on above: Take 1 tablet by zunilda twice daily as needed (migraine). proparacaine hydrochloride 5 mg/ml ophthalmic solution (6 sources) Local Anesthetic Start: End: proparacaine 0.5 % 1 Drop (ALCAINE) Start: [...] End: 10-22-2024 take 1 tablet by mouth once daily at bedtime rosuvastatin (CRESTOR) 5 mg tablet Indications: Hypothyroidism, unspecified type Take 1 tablet by mouth daily at bedtime. 90 tablet 1 04/25/2024 10/22/2024 Active Comment on above: Take 1 tablet by [facility] daily at bedtime. semaglutide (OZEMPIC) 0.25 mg [...] time a week. 3 mL 11 08/28/2023 08/27/2024 Active Start: 08-28-2023 End: 08-28-2023 [...] time a week. 3 mL 1 08/03/2023 08/28/2023 Discontinued Start: 08-03-2023 End: 11-01-2023 [...] WEEK August 29, 2024 12:00am Thyroid (Pork) ([place] Thyroid) 60 MG tablet (1 source) Start: 08-23-2015 take 1 tablet by mouth twice daily Thyroid (Pork) ([place] Thyroid) 60 MG tablet Active 60 mg PO TWICE A DAY August 23, 2015 12:00am thyroid (custodial) 60 mg oral tablet (20 sources) Start: 08-23-2015 End: 07-22-2024 take 1 tablet by mouth twice daily thyroid, pork, (ARMOUR THYROID) 60 mg tablet Take 1 tablet by mouth two times a day. 60 tablet 5 07/22/2024 Active Comment on above: Take 1 tablet by zunilda th twice daily. Take 1 tablet by zunilda th two times a day. topiramate 50 mg oral tablet (5 sources) Start: 06-22-2024 End: 12-19-2024 take 1 tablet by mouth twice daily topiramate (TOPAMAX) 50 mg tablet Indications: Tremor , Migraine without aura, intractable, with status migrainosus Take 1 tablet by mouth two times a day. 180 tablet 1 06/22/2024 12/19/2024 Active tropicamide 10 mg/ml ophthalmic solution (6 sources) [...] 6 HOURS NEEDED as needed for Pain 12 23October 31, 2017 12:00am August 29, 2024 9:32am Start: 10-31-2017 take 1 tablet by zunilda th every six hours as needed Hydrocodone-Acetaminophen Active 1 TABLE T PO EVERY 6 HOURS NEEDED 12 23October 31, 2017 12:00am [id number] 200 actuat albuterol 0.09 mg/actuat metered dose [...] times daily. Take 1 capsule by mo [facility] three times daily for 7 days. cyanocobalamin, [...] extended release oral tablet (1 source) Uncompetitive J-yvjcrv-O-aspartate Receptor Antagonist, Sigma-1 Agonist Start: 024 End: Dextromethorphan-Guai fenesin 30-600 mg tablet extended release 12 hr Discontinued 1 {tbl} PO Q12H as needed for cough August 18, 2023 12:00am August 29, 2024 [...] D2) (Vitamin D2) 50,000 UNIT capsule Discontinued 19215 U PO ALLEN December 31, 2016 12:00am [...] above: Take 1 tablet by zunilda every 8 hours as needed. vitamin B [...] bronchitis; Translations: [Acute bronchitis, unspecified] 08-18-2023 Episodic Administrative/social admission (1 source) Home unsettled; Translations: [Other specified problems related to primary support group] 09-09-2024 Episodic Anxiety disorders (20 sources) Anxiety neurosis [...] Coronary atherosclerosis; Translations: [Atherosclerotic heart disease of [place] coronary artery without angina pectoris] Onset: 0 [...] Translations: [Hyperlipidemia, unspecified] Onset: 6 12-12-2015 Chronic Esophageal disorders (20 sources) Gastroesophageal reflux disease; Translations: [Gastro-esophageal reflux disease without esophagitis] Onset: 5 11-17-2014 Chronic Essential hypertension (20 sources) Hypertensive disorder; Translations: [Essential (primary) hypertension] Onset: 5 11-17-2014 Chronic Fluid and electrolyte disorders (1 source) Dehydration; Translations: [Dehydration] 09-09-2024 Episodic Fracture of lower limb (12 sources) Closed [...] (1 source) Onychomycosis; Translations: [Tinea unguium] Episodic Open wounds of extremities (2 sources) Open wound of toe; Translations: [Unspecified open wound of unspecified toe(s) without damage to nail, initial encounter] 05-05-2024 Episodic Open wounds of head; neck; and trunk (2 sources) Laceration without foreign body of scalp, initial encounter; Translations: [Scalp laceration] Onset: 5 09-09-2024 Episodic Osteoarthritis (20 sources) Arthritis of left acromioclavicular joint; Translations: [Primary osteoarthritis, left shoulder] Onset: 9 06-11-2018 Chronic Other and unspecified benign neoplasm (2 sources) History of polyp of colon; Translations: [Personal history of colonic polyps] 12-05-2022 Episodic Other circulatory disease (1 source) Abnormal peripheral pulse; Translations: [Other specified symptoms and signs involving the circulatory and respiratory systems] Episodic Other congenital anomalies (1 source) Porokeratosis; Translations: [Other specified congenital malformations of skin] 06-03-2024 Chronic Other connective tissue disease (20 sources) Fibromyalgia; Translations: [Fibromyalgia] Onset: 6 10-01-2015 Episodic Other connective tissue disease (2 sources) Pain in finger of right hand; Translations: [Pain in right finger(s)] Episodic Other connective tissue disease (1 source) Abnormal posture; Translations: [Abnormal posture] Episodic Other connective tissue disease (2 sources) Recurrent falls ; Translations: [Repeated falls] 10-29-2022 Episodic Other diseases of kidney and ureters (4 sources) Renal impairment; Translations: [Disorder of kidney and ureter, unspecified] 05-25-2024 Episodic Other diseases of kidney and ureters (1 source) Disorder of kidney and ureter, unspecified; Translations: [Renal insufficiency] Onset: Episodic Other ear and sense organ disorders [...] bilateral lacrimal glands] Episodic Other gastrointestinal disorders (20 sources) History of bypass of stomach; Translations: [Bariatric surgery status] Onset: 9 05-19-2018 Episodic Other gastrointestinal disorders (1 source) Heartburn; [...] of head, initial encounter] 08-29-2024 Episodic Other injuries and conditions due to external causes (1 source) Injury of head; Translations: [Unspecified injury of head, subsequent encounter] 09-09-2024 Episodic Other liver diseases (20 sources) Hepatic [...] nutritional; endocrine; and metabolic disorders (1 source) Loss of appetite; Translations: [Anorexia] 09-09-2024 Episodic Other upper respiratory infections (2 sources) [...] Memory impairment; Translations: [Other amnesia] 06-22-2024 Episodic Residual codes; unclassified (1 source) Altered mental status; Translations: [Altered mental status, unspecified] 09-09-2024 Episodic Skin and subcutaneous tissue infections (7 [...] [Sciatica, unspecified side] Onset: 9 11-17-2014 Episodic Thyroid disorders (20 sources) Hypothyroidism; Translations: [...] [Periodontal disease, unspecified] Onset: 01-07-2019 01-07-2019 Episodic E Codes: Fall (20 sources) Fall; Translations: [Unspecified fall, subsequent encounter] Onset: 04-07-2023 Episodic Nonspecific chest pain (20 sources) Atypical chest pain; Translations: [Other chest pain] Onset: 04-07-2023 Resolved: 05-20-2024 12-31-2016 Episodic Other circulatory disease (20 sources) H/O: hypertension; Translations: [Personal history of other diseases of the circulatory system] Onset: 04-07-2023 10-29-2022 Episodic Other connective tissue disease (20 sources) [...] 10-01-2015 Episodic Other gastrointestinal disorders (20 sources) Constipation; [...] [Personal history of (healed) traumatic fracture] Onset: 04-07-2023 10-29-2022 Episodic Other injuries and conditions due [...] shoulder region Onset: 10-22-2017 02-01-2019 Episodic Other nutritional; endocrine; and metabolic disorders (20 sources) Morbid obesity; Translations: [Morbid (severe) obesity due to excess calories] Onset: 03-31-2016 Resolved: 07-04-2016 10-29-2022 Chronic Other nutritional; endocrine; and metabolic disorders (20 sources) H/O: diabetes mellitus; Translations: [Personal history of other endocrine, nutritional and metabolic disease] Onset: 04-07-2023 Resolved: 05-20-2024 10-29-2022 Episodic Other screening for suspected conditions (not mental disorders or infectious disease) (20 sources) Patient encounter status; Translations: [Encounter for screening for malignant neoplasm of colon] Onset: 03-08-2021 Resolved: 04-07-2023 03-08-2021 Episodic Screening and history of mental health and substance abuse codes (20 sources) Ex-smoker; Translations: [Personal history of nicotine dependence] Onset: 03-08-2021 03-08-2021 Episodic Sprains and strains (20 sources) Sprain of wrist; Translations: [Unspecified sprain of right wrist, initial encounter] Onset: 04-07-2023 10-29-2022 Episodic Superficial injury; contusion (20 sources) Contusion of elbow; Translations: [Contusion of right elbow, initial encounter] Onset: 04-07-2023 10-29-2022 Episodic Unclassified (20 sources) Parkinsonism; Translations: [Parkinsonism] Onset: 12-05-2022 Resolved: 12-05-2022 12-05-2022 Chronic Results Test Name Value Interpretation Reference Range Facility GLUCOSE, BLOOD (POC)on 09-09 Glucose [Mass/Vol] 145 mg/dL Abnormal 74 - 99 mg/dL [facility] Comment on above: Glu2: Critical Notif ied Location:[address], [place], [address] The Accu-Chek Inform II glucose meter has not been approved for testing on patients receiving intensive medical intervention or therapy and results from this point of care glucose test should not be used for patient management decisions in these cases. Inaccurate results may also occur from other interfering factors, such as N-acetylcysteine (blood concentrations of greater than 5mg/dL), galactose, extremes of hematocrit (<10 or >65), or high doses of ascorbic acid (vitamin C) greater than 3mg/dL. Consider alternate testing mechanisms (e.g. core lab, blood gas instrument) in the above situations. Interpretation and review of laboratory results Abnormal [facility] ED MED ADMINISTRATION DETAIL on 09-03-2024 ED MED ADMINISTRATION DETAIL [employer] Medication Administration Record [address] [address] [id number] 09/02/2024 Patient: INÉS SHANKS Sex: Female : 1965 Age: 58y MEASUREMENTS: Wt: 74.8 kg, Ht/Abrahan: 68.0 in, BMI: 25.09 ALLERGIES: No known drug allergies Medication Ordered Medication Administration Date/Time 1 of 1 Normal [facility] ED NURSES CLINICAL NOTEon ED NURSES CLINICAL NOTE Nurse Narrative Nurse Clinical Narrative [address] [address] [id number] 09/02/2024 19:25:00 Patient: INÉS SHANKS Sex: Female [...] the Pt had a CT scan at [facility] ER on Thursday and it came [...] of patient arrival was not received. Treatment HEALTH RECORD TECHNICIAN: None. 1 of 5 Nurse Narrative SEPSIS SCREEN: NEGATIVE. SIRS criteria negative. No possible sources of infection. -- 20:16 09/02/24 EDT Luis Alberto WayneP. 19:51 09/02/24. BP: 138/98 MAP: 111. HR: 76. RR: 18. O2 saturation: 96% Temperature: 97.8 F. Pain level now 5/10. Describes the pain as pain. Abrupt in onset. -- 20:17 09/02/24 EDT Miguel Ángel Armstrong E.M.T.-P. Acuity: LEVEL 2. 20:29 09/02/24. -- 20:09/02/24 EDT Berny Glass R.N. Measurements: 20:12 09/02/24 Wt: 74.8 kg, Ht/Abrahan: 68.0 in, BMI: 25.09 -- 20:12 09/02/24 EDT Miguel Ángel Armstrong E.M.T.-P. Medications: gabapentin 600 mg tablet -- 20:09/02/24 EDT Luis Alberto WayneP. cetirizine 10 mg tablet -- 20:09/02/24 EDT Luis Alberto WayneP. clonazepam 1 mg tablet -- 20:09/02/24 EDT Luis Alberto WayneP. prochlorperazine maleate 10 mg tablet -- 20:09/02/24 EDT Luis Alberto WayneP. ondansetron HCl 4 mg tablet -- 20:09/02/24 EDT Luis Alberto WayneP. gabapentin 300 mg capsule -- 20:09/02/24 EDT Luis Alberto WayneP. lisinopril 5 mg tablet -- 20:09/02/24 EDT Luis Alberto WayneP. metformin ER 500 mg tablet,extended release 24 hr -- 20:09/02/24 EDT Luis Alberto WayneP. metoprolol succinate ER 25 mg tablet,extended release 24 hr -- 20:09/02/24 EDT Luis Alberto WayneP. [place] Thyroid 60 mg tablet -- 20:09/02/24 EDT Luis Alberto WayneP. pantoprazole 40 mg tablet,delayed release -- 20:09/02/24 EDT Luis Alberto WayneP. FreeStyle Lancets 28 gauge -- 20:09/02/24 EDT Luis Alberto WayneP. carbidopa 25 mg-levodopa 100 mg tablet -- 20:09/02/24 EDT Luis Alberto WayneP. bupropion HCl SR 200 mg tablet,12 hr sustained-release -- 20:09/02/24 EDT Luis Alberto WayneP. rosuvastatin 5 mg tablet -- 20:09/02/24 EDT Luis Alberto WaynePChristy topiramate 50 mg tablet -- 20:09/02/24 EDT Leydi Wayne-P. FreeStyle Lite Strips -- 20:09/02/24 EDT Leydi Wayne-PChristy FreeStyle Lite Meter kit -- 20:09/02/24 EDT Luis Alberto WayneP. FeroSul 325 mg (65 mg iron) tablet -- 20:09/02/24 EDT Miguel Ángel Armstrong E.M.T.-P. fenofibrate 54 mg tablet -- 20:09/02/24 EDT Luis Alberto WayneP. lamotrigine 200 mg disintegrating tablet -- 20:09/02/24 EDT Luis Alberto WaynePChristy Trintellix 20 mg tablet -- 20:09/02/24 EDT Luis Alberto WayneP. Ozempic 0.25 mg or 0.5 mg (2 mg/3 mL) subcutaneous pen injector -- 20:09/02/24 EDT Luis Alberto WaynePChristy 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 Thyroid 60 mg tablet -- 20:09/02/24 EDT Luis Alberto WayneP. 2 of 5 Nurse Narrative Allergies: no known drug allergies -- 20:09/02/24 EDT Luis Alberto WaynePChristy Problems: Depression: Active -- 20:09/02/24 EDT Luis Alberto WaynePChristy Anxiety disorder -- 20:09/02/24 EDT Luis Alberto WaynePChristy Essential tremor: Active -- 20:09/02/24 EDT Luis Alberto WaynePChristy Migraine Headache -- 20:09/02/24 EDT Luis Alberto WaynePChristy Diabetes Mellitus: Active -- 20:07 09/02/24 EDT Miguel Ángel Armstrong E.M.T.-P. Peripheral Neuropathy: Active -- 20:07 09/02/24 EDT Miguel Ángel Armstrong E.M.T.-P. Degenerative Disc Disease -- 20:09/02/24 EDT Miguel Ángel Armstrong E.M.T.-P. Unspecified heart condition. (Family states that the Pt has a heart condition that causes her chest to (more content not included)... Normal [facility] ED ORDER SHEET (CPOE ONLY)on 09-03-2024 ED ORDER SHEET (CPOE ONLY) Order Sheet Order Sheet [facility] [place] [address] [place] [address] [phone] 09/02/2024 Patient: INÉS SHANKS Sex: Female : 1965 Age: 58y MEASUREMENTS: Wt: 74.8 kg, Ht/Abrahan: 68.0 in, BMI: 25.09 ALLERGIES: No known drug allergies MEDICATION/IV/DRIP/FLUID ORDERS Order Description Priority Entered Acknowledged Completed LAB ORDERS Order Description Priority Entered Acknowledged Collected Completed CBC w Diff Stat Stat 20:09/02/2024 20:01 09/02/2024 20:19 09/02/2024 Xavi Myers R.N. Seth Lapp R.NChristy BNP Stat Stat 20:09/02/2024 20:01 09/02/2024 20:19 09/02/2024 Xavi Myers R.N. Seth Lapp R.NChristy CMP Stat Stat 20:09/02/2024 20:01 09/02/2024 20:19 09/02/2024 Xavi Myers R.N. Seth Lapp RKiki EKG - ED Stat Stat 20:09/02/2024 20:01 09/02/2024 20:17 09/02/2024 Xavi Myers R.N. Seth Lapp RChristyNChristy Troponin-I Stat Stat 20:09/02/2024 20:09/02/2024 20:19 09/02/2024 1 of 3 Order Sheet Xavi Myers, StaceyNChristy Glass, R.NChristy DIAGNOSTIC STUDY ORDERS Order Description Priority Entered Acknowledged Completed CT Brain wo Cont Stat Stat 20:01 09/02/2024 20:02 21:23 Casandra Kelley D.O. 09/02/2024 09/02/2024 Berny Glass, StaceyNChristy Glass, R.N. Order Comments: 20:01 09/02/2024: Status: Not . Casandra Kelley D.O. Reason for Study: Head Injury CT C-Spine wo Cont Stat Stat 20:01 09/02/2024 20:02 21:23 Casandra Kelley D.O. 09/02/2024 09/02/2024 Berny Glass, StaceyNChristy Glass, R.N. Order Comments: 20:09/02/2024: Status: Not . Casandra Kelley D.O. Reason for Study: Trauma/Injury STAFF ORDERS Order Description Priority Entered Acknowledged Collected Completed Shop Assistant 20:01 09/02/2024 20:01 09/02/2024 20:19 09/02/2024 Xavi Myers, RChristyNChristy Glass, R.N. Vital signs every 15 20:01 09/02/2024 20:01 09/02/2024 20:19 09/02/2024 minutes Xavi Myers, R.N. Berny Glass, R.N. Repeat EKG in 45 Min 20:01 09/02/2024 20:01 09/02/2024 20:19 09/02/2024 Xavi Myers, StaceyNChristy Glass, R.N. IV Saline Lock 20:09/02/2024 20:01 09/02/2024 20:19 09/02/2024 Xavi Myers, RChristyNChristy Glass, R.N. 2 of 3 Order Sheet [Electronically signed by Casandra Kelley D.O. (09/03/2024 04:43 EDT)] 3 of 3 Normal [facility] ED PHYSICIAN CLINICAL REPORT on 09-03-2024 ED PHYSICIAN CLINICAL REPORT Narrative Physician Clinical Narrative [facility] [address] [place] [address] [phone] 09/02/2024 19:25:00 Patient: INÉS SHANKS Sex: Female [...] bladder dysfunction. Status: Not . PAST HISTORY of 10 Narrative See nurses notes. 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 Was stapled at [facility] last Thursday). No laceration. Eyes: Pupils equal, [...] to be a good tracing. Interpretation time: 20:09/02/2024. CT C-Spine: No acute findings. (no acute [...] by the radiologist. Interpretation time: 21:29 09/02/2024. CT Head: (No acute intracranial injury. Soft [...] Test Resul (more content not included)... Normal [facility] ED SUPER BILLon 09-03-2024 ED SUPER BILL [address] [address] [id number] 09/02/2024 Patient: INÉS SHANKS Sex: Female : 1965 Age: 58y Item Professional Category Description Facility Code Code Quantity Fee Total Nurse/E/M EMERGENCY 088921 1 $0.00 $0.00 DEPARTMENT VISIT MODERATE SEVERITY (98416-45) Grand Total $0.00 Providers Casandra Kelley D.O. Chief Complaint INJURY TO HEAD and INJURY TO NECK. Principal Diagnosis Minor closed head injury. No loss of consciousness. No concussion or skull fracture. Cervical strain. Fall on the same level by stumbling. 1 of 2 [facility] ICD-10 Codes S06.890A: Other specified intracranial injury without loss of consciousness, initial encounter S16.1xxA: Strain of muscle, fascia and tendon at neck level, initial encounter W01.0XXA: Fall on same level from slipping, tripping and stumbling without subsequent striking against object, initial encounter 2 of 2 Normal [facility] ED VISIT SUMMARYon ED VISIT SUMMARY Visit Overview Visit Overview [address] [address] [id number] 09/02/2024 Patient: INÉS SHANKS Sex: Female : [...] the Pt had a CT scan at [facility] ER on Thursday and it came back negative.), and (Pt fell in bathroom from standing height. Pt fell backward and the back of her head punched through the drywall. Negative LOC. 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 [address] [phone] 09/02/2024 Patient: INÉS SHANKS Sex: Female : [...] 138/98 103 80 3 of 3 Normal [facility] CBC + DIFFon 09-02-2024 Baso # 0.01 x10EE3/UL Normal 0.00 - 0.10 [facility] Comment on above: Performed By: #### 2 00194 #### [facility],[address] [place] [address] Basophils/100 WBC (Bld) 0.2 % Normal 0.0 - 2.0 [facility] Comment on above: Performed By: #### 2 75405 #### [facility],[address] [place] [address] CBC + DIFF Normal [facility] Comment on above: Result Comment: CBC- COMPLETE BLOOD COUNT Performed By: #### 2 86380 #### [facility],[address] [place] [address] EO # 0.03 x10EE3/UL Normal 0.00 - 0.50 [facility] Comment on above: Performed By: #### 2 75067 #### [facility],[address] [place], [place] [address] Eosinophils/100 WBC (Bld) 0.4 % Normal 0.0 - 7.0 [facility] Comment on above: Performed By: #### 2 59389 #### [facility],[address] [place] [address] Erythrocyte distribution width (RBC) [Ratio] 13.4 % Normal 12.0 - 15.6 [facility] Comment on above: Performed By: #### 2 85205 #### [facility],[address] [place] [address] Hematocrit (Bld) [Volume fraction] 33.7 % Low 34.0 - 46.0 [facility] Comment on above: Performed By: #### 2 77360 #### [facility],[address] [place] [address] Hemoglobin (Bld) [Mass/Vol] 12.1 g/dL Normal 12.0 - 16.0 [facility] Comment on above: Performed By: #### 2 48896 #### [facility],[address] [place] [address] Lymph # 1.42 x10EE3/UL Normal 0.80 - 2.80 [facility] Comment on above: Performed By: #### 2 59257 #### [facility],[address] [place], [place] [address] Lymphocytes/100 WBC (Bld) 21.3 % Normal 20.0 - 45.0 [facility] Comment on above: Performed By: #### 2 30842 #### [facility],[address] [place], [place] [address] MANUAL DIFF N/A Normal [facility] Comment on above: Performed By: #### 2 72919 #### [facility],[address] [place], [place] [address] MCH (RBC) [Entitic mass] 31 pg Normal 27 - 33 [facility] Comment on above: Performed By: #### 2 71400 #### [facility],[address] [place] [address] MCHC 36 X10 3 Normal 32 - 36 [facility] Comment on above: Performed By: #### 2 20769 #### [facility],[address] [place], [place] [address] MCV (RBC) [Entitic vol] 87 fL Normal 80 - 99 [facility] Comment on above: Performed By: #### 2 01824 #### [facility],[address] [place] [address] [place] # 0.29 x10EE3/UL Normal 0.20 - 1.00 [facility] Comment on above: Performed By: #### 2 78416 #### [facility],[address] [place] [address] MONOS % 4.4 % Normal 0.0 - 10.0 [facility] Comment on above: Performed By: #### 2 71947 #### [facility],[address] [place], [place] [address] Morphology Heri (Bld) [Interp] N/A Normal [facility] Comment on above: Performed By: #### 2 16227 #### [facility],[address] [place] [address] Neut # 4.90 x10EE3/UL Normal 1.50 - 7.10 [facility] Comment on above: Performed By: #### 2 73879 #### [facility],[address] [place], [place] [address] Neutrophils/100 WBC (Bld) 73.6 % Normal 46.0 - 76.0 [facility] Comment on above: Performed By: #### 2 99981 #### [facility],[address] [place], [place] [address] PLATELET 190 x10EE3/UL Normal 150 - 450 [facility] Comment on above: Performed By: #### 2 10441 #### [facility],[address] [place] [address] Platelet mean volume (Bld) [Entitic vol] 8.2 fL Normal 6.6 - 10.5 [facility] Comment on above: Result Comment: AUTO MATED DIFFERENTIAL Performed By: #### 2 74491 #### [facility],[address] [place] [address] RBC 3.87 x 10EE6/UL Low 4.10 - 5.30 [facility] Comment on above: Performed By: #### 2 55188 #### [facility],[address] [place] [address] WBC 6.7 x 10EE3/UL Normal 4.5 - 10.8 [facility] Comment on above: Performed By: #### 2 22876 #### [facility],[address] [place], [place] [address] CMP with eGFRon 09-02-2024 AGE 58 years Normal [facility] Comment on above: Performed By: #### 2 79798 #### [facility],[address] [place] [address] Albumin [Mass/Vol] 3.3 g/dL Low 3.4 - 5.0 [facility] Comment on above: Performed By: #### 2 42814 #### [facility],[address] [place] [address] Albumin/Globulin [Mass ratio] 0.9 {ratio} Normal 0.9 - 1.6 [facility] Comment on above: Performed By: #### 2 35772 #### [facility],[address] [place] [address] ALK PHOS 31 U/L Low 46 - 116 [facility] Comment on above: Performed By: #### 2 29785 #### [facility],[address] [place] [address] ALT [Catalytic activity/Vol] 8 U/L Low 16 - 63 [facility] Comment on above: Performed By: #### 2 01533 #### [facility],[address] [place] [address] Anion gap [Moles/Vol] 16 mmol/L Normal 10 - 20 [facility] Comment on above: Performed By: #### 2 64915 #### [facility],[address] [place] [address] AST [Catalytic activity/Vol] 13 U/L Normal 13 - 39 [facility] Comment on above: Performed By: #### 2 45669 #### [facility],[address] [place] [address] B/C RATIO 13 ratio Normal 0 - 30 [facility] Comment on above: Performed By: #### 2 48890 #### [facility],[address] [place] [address] Bilirubin [Mass/Vol] 0.4 mg/dL Normal 0.2 - 1.0 [facility] Comment on above: Performed By: #### 2 99381 #### [facility],[address] [place] [address] Calcium [Mass/Vol] 9.4 mg/dL Normal 8.5 - 10.1 [facility] Comment on above: Performed By: #### 2 04949 #### [facility],[address] [place] [address] Chloride [Moles/Vol] 109 mmol/L High 98 - 107 [facility] Comment on above: Performed By: #### 2 23787 #### [facility],[address] [place] [address] CMP with eGFR Normal [facility] Comment on above: Result Comment: COMP REHENSIVE METABOLIC PANEL Performed By: #### 2 72507 #### [facility],[address] [place] [address] CO2 [Moles/Vol] 23.0 mmol/L Normal 21.0 - 32.0 [facility] Comment on above: Performed By: #### 2 86287 #### [facility],[address] [place] [address] Creatinine [Mass/Vol] 1.42 mg/dL High 0.55 - 1.02 [facility] Comment on above: Performed By: #### 2 44099 #### [facility],[address] [place] [address] eGFR 38 ML/MINUTE Low 60 - 999 [facility] Comment on above: Performed By: #### 2 40278 #### [facility],[address] [place] [address] eGFR(AA) 46 ML/MINUTE Low 60 - 999 [facility] Comment on above: Result Comment: ACCO RDING TO THE NATIONAL KIDNEY DISEASE EDUCATION PROGRAM(NKDE), A NORMAL eGFR IS A VALUE GREATER THAN OR EQUAL TO 60 ML/MIN/1.73 SQ METERS. CHRONIC KIDNEY DISEASE: <60mL/MIN/1.73 SQ METERS KIDNEY FAILURE: <15mL/MIN/1.73 SQ METERS THIS TEST SHOULD ONLY BE USED FOR PATIENTS 18 YEARS OF AGE AND OLDER. Performed By: #### 2 82605 #### [address] [address] Globulin (S) [Mass/Vol] 3.5 g/dL Normal 1.5 - 3.8 [facility] Comment on above: Performed By: #### 2 26628 #### [facility],[address] [place] [address] Glucose [Mass/Vol] 92 mg/dL Normal 74 - 106 [facility] Comment on above: Performed By: #### 2 87273 #### [address] [address] Potassium [Moles/Vol] 4.4 mmol/L Normal 3.5 - 5.1 [facility] Comment on above: Performed By: #### 2 71471 #### [address] [address] Protein [Mass/Vol] 6.8 g/dL Normal 6.4 - 8.2 [facility] Comment on above: Performed By: #### 2 76576 #### [facility],[address] [place] [address] Sodium [Moles/Vol] 144 mmol/L Normal 136 - 145 [facility] Comment on above: Performed By: #### 2 78395 #### [facility],[address] [place] [address] Urea nitrogen [Mass/Vol] 19 mg/dL High 7 - 18 [facility] Comment on above: Performed By: #### 2 69068 #### [facility],[address] [place] [address] BRAIN W/O CONTRASTon 08-21 CT BRAIN W/O CONTRAST [place] [address] Patient: INÉS SHANKS Phone#: : 1965 Age: 58 Gender: F Pt. Type: ER Account: [id number] Location: [facility] Ordering: CASANDRA KELLEY Exam Date: 09/02/2024/20:18 Family Phys: Charge Code: 909262 Physician: [place] Order #: [id number] Dose#: 52.3 PROCEDURE: CT BRAIN WITHOUT CONTRAST [...] Shaw MD on 09/03/2024 at 8:53 Normal [facility] CT CERVICAL W/O CONTRASTon 0 09-02-2024 CT CERVICAL W/O CONTRAST [address] [address] Patient: INÉS SHANKS Phone#: : 1965 Age: 58 Gender: F Pt. Type: ER Account: [id number] Location: 052 Ordering: CASANDRA KELLEY Exam Date: 09/02/2024/20:56 Family Phys: Charge Code: 145027 Physician: [place] Order #: [id number] Dose#: 10.1 PROCEDURE: CT CERVICAL WITHOUT CONTRAST [...] 58 Gender: F Pt. Type: ER Account: [id number] Location: 2 Ordering: CASANDRA KELLEY Exam Date: 09/02/2024/20:56 Family Phys: Charge Code: 472196 Physician: [place] Order #: [id number] Dose#: 10.1 Approved by: Padmini Shaw MD on 09/03/2024 at 8:54 Normal [facility] NT-proBNPon 09-02-2024 Natriuretic peptide B (Bld) [Mass/Vol] 1095 pg/mL High 0 - 125 [facility] Comment on above: Performed By: #### 2 37293 #### [place] [id number] TROPONINon 09-02-2024 HS TROPONIN 9.5 pg/mL Normal 0.0 - 51.4 [facility] Comment on above: Performed By: #### 2 34647 ####[address] [address] Brain/Head without Contrasto n 08-29-2024 Brain/Head without Contrast [facility] Imaging Services [address] [place] [address] [id number] Brain/Head without Contrast MR#: [id number] Acct: [id number] Name: INÉS SHANKS Rep #: [id number] : 1965 F 58 From: Flaco Fox DO PCP: Dr. Santhosh Holden MD Status: PRE ER Study: Brain/Head without Contrast Date of Exam: 12/15 Exam# [id number] Ordering Dr: Sachin Walton DO PROCEDURE: BRAIN/HEAD [...] chronic small-vessel ischemic changes . Reading Location[facility] CC: Dr. Sachin Walton DO; Dr. Santhosh Holden MD Audit Director: Signed Normal [facility] Emergency Department Summary on 08-29-2024 Emergency Department Summary [facility] Medical Records Department [address] [place] [address] Emergency Department Summary 08/29/24 MR#: [id number] Acct: [id number] Name: INÉS SHANKS Rep #: [id number] : 1965 58 From: Sachin Walton DO [...] 15 Psych: Cooperative, appropriate mood and affect [facility] Medical History Powers's esophagus Diabetes DJD [...] 60 mg PO BID thyroid 08/23/1511/14 History ([place] Thyroid) nitroglycerin 0.4 mg sublingual 0.4 mg [...] 09:19 zolpide (more content not included)... Normal [facility] Sinus/Facial Boneon 08-30-19 Sinus/Facial Bone [facility] Imaging Services [address] [place], [place] [address] Sinus/Facial Bone MR#: [id number] Acct: [id number] Name: INÉS SHANKS Rep #: [id number] : 1965 F 58 From: Asif angulo MD PCP: Dr. Santhosh Holden MD Status: PRE ER Study: Sinus/Facial Bone Date of Exam: 08/29/24 Exam# [id number] Ordering Dr: Sachin Walton DO PROCEDURE: SINUS/FACIAL [...] No acute abnormality is seen. Reading Location: [place] [address] CC: Dr. Sachin Walton DO; Dr. Santhosh Holden MD Audit Director: Signed Normal [facility] Spine Cervical without Contr ason 08-29-2024 Spine Cervical without Contras [facility] Imaging Services [address] [place], [place] [id number] Spine Cervical without Contras MR#: [id number] Acct: [id number] Name: INÉS SHANKS Rep #: [id number] : 1965 F 58 From: Asif angulo MD PCP: Dr. Santhosh Holden MD Status: PRE ER Study: Spine Cervical without Contras Date of Exam: 0 08/29/24 Exam# [id number] Ordering Dr: Sachin Walton DO PROCEDURE: SPINE [...] CANAL OR NEURAL FORAMINAL STENOSIS. Reading Location: [facility] CC: Dr. Sachin Walton DO; Dr. Santhosh Holden MD Audit Director: Signed Normal [facility] CNOVon 06-22-2024 CNOV Office Visit ([facility] ) INÉS SHANKS ([id number]) 1965 F Date Time Provider Department 06/22/24 1:[address] [facility] During your visit today, we recorded the [...] Metoprolol ER 25 mg daily - Cd/ld 25/ one pill TID Current Outpatient Medications Medication [...] daily. ca (more content not included)... Normal [facility] CNOVon 06-03-2024 CNOV Office Visit ([facility] ) INÉS SHANKS ([id number]) 1965 F Date Time Provider Department 06/03/24 1:00 PM DRU SAHUIWS During your visit today, we recorded the following information about you: Hollie Diana LPN 06/04/2024 9:16 AM Signed AMB ROOMING INTAKE FLOWSHEET DATA Pain Pain Level: 1 Pain Location: Toe Description: Sore Frequency: Continuous Intervention/Comfort measure: Reposition, Relaxation Patient presents with: Right Foot - Established Patient, Follow Up, Pain, Fracture Left Great Toe - Diabetic Foot Ulcer, Established Patient Hollie Diana LPN Dru Sahu 06/03/2024 1:23 PM Signed Fracture: continue with [...] not wearing. She presents to clinic in [facility]. She reports to walking barefoot at [...] 5.0 4.3 - 5.6 % Final Comment: [place] [employer] guidelines indicate that patients with [...] stress disorder) PVD (peripheral vascular disease) ([facility]) Sciatica Shoulder injury Type II or unspecified [...] with m (more content not included)... Normal [facility] US KIDNEY/BLADDERon 06-04-19 25 US KIDNEY/BLADDER * * *Final Report* * * DATE OF EXAM: Jun 03 2024 2:12PM WRU 1055 - US KIDNEY/BLADDER / PROCEDURE REASON: [...] Pre and postvoid bladder volumes as described. Audit Director: [facility] Transcribe Date/Time: Jun 06 2024 4:06P Dictated by : CHANTELL LIZ MD This examination was interpreted and the report reviewed and electronically signed by: CHANTELL LIZ MD on Jun 06 2024 4:09PM EST [id number] Normal [facility] XR TOE 3V AP/LAT/OBL RTon [...] evident. IMPRESSION: Healing great toe tuft fracture Audit Director: MEERA Transcribe Date/Time: Jun 08 2024 10:05A Dictated by : JOHNNY MONTES MD This examination was interpreted and the report reviewed and electronically signed by: JOHNNY MONTES MD on Jun 08 2024 10:06AM EST [id number] Normal [facility] CNPNon 05-23-2024 [facility] IN[facility]S SHANKS ([id number]) 1965 F Date Time Provider Department 05/23/[address] [facility] During your visit today, we recorded [...] FECAL OCCULT BLOOD TEST [SQIFOBT] Order #: [id number]. #:[id number] COMPLETE BLOOD COUNT AND DIFFERENTIAL [SQCBCDIF] Order #: [id number] FUTURE FERRITIN [SQFERR] Order #: [id number] FUTURE BASIC METABOLIC PANEL [SQBMP] Order #: [id number] FUTURE URINALYSIS, WITH MICROSCOPIC [SQUAWMIC] Order #: [id number] FUTURE KIDNEY/BLADDER [8366228] Order #: [id number] FUTURE Prescriptions as of 05/25/2024 - blood [...] chin strap (if indicated) and lifetime supplies ([facility]) DX: KRZYSZTOF G47.33 - multivit with minerals/lutein (MULTIVITAMIN 50 PLUS ORAL) Take 1 tablet by mouth once daily. - COMPOUNDED PRESCRIPTION Diabetic shoes One (more content not included)... Normal [facility] 25(OH)D3 [facility] 2024 25-hydroxyvitamin D3 [Mass/Vol] 27.8 ng/mL Low 31.0-80.0 [facility] Comment on above: Order Comment: Speci men Type: BLOOD SPECIMENOrdering Facility: [facility] Address: [address] [place] [address] Performed By: #### 1 989-3 ####[facility] [id number] [place] [address] [place] AFP [facility] 05-20-2024 AFP [Mass/Vol] 1.99 ng/mL Normal <9.00 [facility] Comment on above: Order Comment: Speci men Type: BLOOD SPECIMENOrdering Facility: [facility] Address: [address] [place] [address] Result Comment: The Alpha-Fetoprotein test was performed using the [employer] DxI immunoenzymatic assay. Results obtained with different assay methods or kits cannot be used interchangeably. Performed By: #### 1 834-1 ####[facility] [id number] [place] [address] [place] CBC W Auto Differential pane l (Bld)on 05-20-2024 Basophils (Bld) [#/Vol] 0.05 10*3/uL Normal <0.11 [facility] Comment on above: Order Comment: Speci men Type: BLOOD SPECIMENOrdering Facility: [facility] Address: [address] [place] [address] Performed By: #### 5 7021-8 ####[facility] LABORATORYIA [id number] [place] [id number] [place] Basophils/100 WBC (Bld) 0.7 % Normal [facility] Comment on above: Order Comment: Speci men Type: BLOOD SPECIMENOrdering Facility: [facility] Address: [address] [place] [address] Performed By: #### 5 7021-8 ####[facility] LABORATORYCLIA [id number] [address] Differential cell count method Nom (Bld) Auto Normal [facility] Comment on above: Order Comment: Speci men Type: BLOOD SPECIMENOrdering Facility: [facility] Address: [address] [place] [address] Performed By: #### 5 7021-8 ####[facility] LABORATORYCLIA [id number] [address] [place] Eosinophils (Bld) [#/Vol] 0.04 10*3/uL Normal <0.46 [facility] Comment on above: Order Comment: Speci men Type: BLOOD SPECIMENOrdering Facility: [facility] Address: [address] [place] [address] Performed By: #### 5 7021-8 ####[facility] LABORATORYCLIA [id number] [address] Eosinophils/100 WBC (Bld) 0.5 % Normal [facility] Comment on above: Order Comment: Speci men Type: BLOOD SPECIMENOrdering Facility: [facility] Address: [address] [place] [address] Performed By: #### 5 7021-8 ####[facility] LABORATORYCLIA [id number] [address] Erythrocyte distribution width (RBC) [Ratio] 12.5 % Normal 11.5-15.0 [facility] Comment on above: Order Comment: Speci men Type: BLOOD SPECIMENOrdering Facility: [facility] Address: [address] [place] [address] Performed By: #### 5 7021-8 ####[facility] LABORATORYCLIA [id number] [address] Hematocrit (Bld) [Volume fraction] 35.5 % Low 36.0-46.0 [facility] Comment on above: Order Comment: Speci men Type: BLOOD SPECIMENOrdering Facility: [facility] Address: [address] [place] [address] Performed By: #### 5 7021-8 ####[facility]ORATORYCLIA [id number] [place] [address] [place] Hemoglobin (Bld) [Mass/Vol] 11.4 g/dL Low 11.5-15.5 [facility] Comment on above: Order Comment: Speci men Type: BLOOD SPECIMENOrdering Facility: [facility] Address: [address] [place] [address] Performed By: #### 5 7021-8 ####[facility] LABORATORYCLIA [id number] [place] [address] [place] Immature granulocytes (Bld) [#/Vol] 10*3/uL Normal <0.10 [facility] Comment on above: Order Comment: Speci men Type: BLOOD SPECIMENOrdering Facility: [facility] Address: [address] [place] [address] Performed By: #### 5 7021-8 ####[facility] LABORATORYCLIA [id number] [address] [place] Immature granulocytes/100 WBC (Bld) 0.3 % Normal [facility] Comment on above: Order Comment: Speci men Type: BLOOD SPECIMENOrdering Facility: [facility] Address: [address] [place] [address] Performed By: #### 5 7021-8 ####[facility] LABORATORYCLIA [id number] [place] [id number] [place] Lymphocytes (Bld) [#/Vol] 3.03 10*3/uL Normal 1.00-4.00 [facility] Comment on above: Order Comment: Speci men Type: BLOOD SPECIMENOrdering Facility: [facility] Address: [address] [place] [address] Performed By: #### 5 7021-8 ####[facility] LABORATORYCLIA [id number] [place] [address] [place] Lymphocytes/100 WBC (Bld) 41.6 % Normal [facility] Comment on above: Order Comment: Speci men Type: BLOOD SPECIMENOrdering Facility: [facility] Address: [address] [place] [address] Performed By: #### 5 7021-8 ####[facility] LABORATORYCLIA [id number] [address] MCH (RBC) [Entitic mass] 28.1 pg Normal 26.0-34.0 [facility] Comment on above: Order Comment: Speci men Type: BLOOD SPECIMENOrdering Facility: [facility] Address: [address] [place] [address] Performed By: #### 5 7021-8 ####[facility] LABORATORYCLIA [id number] [address] [place] MCHC (RBC) [Mass/Vol] 32.1 g/dL Normal 30.5-36.0 [facility] Comment on above: Order Comment: Speci men Type: BLOOD SPECIMENOrdering Facility: [facility] Address: [address] [place] [address] Performed By: #### 5 7021-8 ####[facility] LABORATORYCLIA [id number] [address] [place] MCV (RBC) [Entitic vol] 87.7 fL Normal 80.0-100.0 [facility] Comment on above: Order Comment: Speci men Type: BLOOD SPECIMENOrdering Facility: [facility] Address: [address] [place] [address] Performed By: #### 5 7021-8 ####[facility] LABORATORYCLIA [id number] [address] [place] Monocytes (Bld) [#/Vol] 0.36 10*3/uL Normal <0.87 [facility] Comment on above: Order Comment: Speci men Type: BLOOD SPECIMENOrdering Facility: [facility] Address: [address] [place] [address] Performed By: #### 5 7021-8 ####[facility] LABORATORYCLIA [id number] [place] [address] [place] Monocytes/100 WBC (Bld) 4.9 % Normal [facility] Comment on above: Order Comment: Speci men Type: BLOOD SPECIMENOrdering Facility: [facility] Address: [address] [place] [address] Performed By: #### 5 7021-8 ####[facility] LABORATORYCLIA [id number] [place] [address] [place] Neutrophils (Bld) [#/Vol] 3.79 10*3/uL Normal 1.45-7.50 [facility] Comment on above: Order Comment: Speci men Type: BLOOD SPECIMENOrdering Facility: [facility] Address: [address] [place] [address] Performed By: #### 5 7021-8 ####[facility] LABORATORYCLIA [id number] [place] [address] [place] Neutrophils/100 WBC (Bld) 52.0 % Normal [facility] Comment on above: Order Comment: Speci men Type: BLOOD SPECIMENOrdering Facility: [facility] Address: [address] [place] [address] Performed By: #### 5 7021-8 ####[facility] LABORATORYCLIA [id number] [place] [address] [place] Nucleated RBC (Bld) [#/Vol] 10*3/uL Normal <0.01 [facility] Comment on above: Order Comment: Speci men Type: BLOOD SPECIMENOrdering Facility: [facility] Address: [address] [place] [address] Performed By: #### 5 7021-8 ####[facility] LABORATORYCLIA [id number] [place] [address] [place] Nucleated RBC/100 WBC (Bld) [Ratio] 0.0 /100 WBC Normal [facility] Comment on above: Order Comment: Speci men Type: BLOOD SPECIMENOrdering Facility: [facility] Address: [address] [place] [address] Performed By: #### 5 7021-8 ####[facility]ORATORYCLIA [id number] [place] [address] [place] Platelet mean volume (Bld) [Entitic vol] 11.3 fL Normal 9.0-12.7 [facility] Comment on above: Order Comment: Speci men Type: BLOOD SPECIMENOrdering Facility: [facility] Address: [address] [place] [address] Performed By: #### 5 7021-8 ####[facility] LABORATORYCLIA [id number] [place] [address] [place] Platelets (Bld) [#/Vol] 223 10*3/uL Normal 150-400 [facility] Comment on above: Order Comment: Speci men Type: BLOOD SPECIMENOrdering Facility: [facility] Address: [address] [place] [address] Performed By: #### 5 7021-8 ####[facility] LABORATORYCLIA [id number] [place] [address] [place] RBC (Bld) [#/Vol] 4.05 10*6/uL Normal 3.90-5.20 [facility] Comment on above: Order Comment: Speci men Type: BLOOD SPECIMENOrdering Facility: [facility] Address: [address] [place] [address] Performed By: #### 5 7021-8 ####[facility] LABORATORYCLIA [id number] [place] [address] [place] WBC (Bld) [#/Vol] 7.29 10*3/uL Normal 3.70-11.00 [facility] Comment on above: Order Comment: Speci men Type: BLOOD SPECIMENOrdering Facility: [facility] Address: [address] [place] [address] Performed By: #### 5 7021-8 ####[facility] LABORATORYCLIA [id number] [address] [place] CNOVon 05-20-2024 CNOV Office Visit (FAMPWS ) INÉS SHANKS ([id number]) 1965 F Date Time Provider Department 05/20/24 2:00 PM SANTHOSH HOLDENWS During your visit today, we recorded the [...] chin strap (if indicated) and lifetime supplies ([facility]) DX: KRZYSZTOF G47.33 multivit with minerals/lutein [...] Lightweight wheel (more content not included)... Normal [facility] Comprehensive metabolic 2000 panelon 05-20-2024 Albumin [Mass/Vol] 3.8 g/dL Low 3.9-4.9 [facility] Comment on above: Order Comment: Speci men Type: BLOOD SPECIMENOrdering Facility: [facility] Address: [address] [place] [address] Performed By: #### 3 016-3, 42943-2, 49741-0 ####[facility] LABORATORYCLIA [id number] [place] [address] [place] ALP [Catalytic activity/Vol] 49 U/L Normal 34-123 [facility] Comment on above: Order Comment: Speci men Type: BLOOD SPECIMENOrdering Facility: [facility] Address: [address] [place] [address] Performed By: #### 3 016-3, 94672-3, 47946-0 ####[facility] LABORATORYCLIA [id number] [place] [address] [place] ALT With P-5'-P [Catalytic activity/Vol] 11 U/L Normal 7-38 [facility] Comment on above: Order Comment: Speci men Type: BLOOD SPECIMENOrdering Facility: [facility] Address: [address] [place] [address] Performed By: #### 3 016-3, 62813-6, 68732-4 ####[facility] LABORATORYCLIA [id number] [place] [address] [place] Anion gap [Moles/Vol] 11 mmol/L Normal 8-15 [facility] Comment on above: Order Comment: Speci men Type: BLOOD SPECIMENOrdering Facility: [facility] Address: [address] [place] [address] Performed By: #### 3 016-3, 70185-5, 00885-4 ####[facility] LABORATORYCLIA [id number] [place] [address] [place] AST With P-5'-P [Catalytic activity/Vol] 19 U/L Normal 13-35 [facility] Comment on above: Order Comment: Speci men Type: BLOOD SPECIMENOrdering Facility: [facility] Address: [address] [place] [address] Performed By: #### 3 016-3, 68402-8, 89728-9 ####[facility] LABORATORYCLIA [id number] [place] [address] [place] Bilirubin [Mass/Vol] 0.2 mg/dL Normal 0.2-1.3 [facility] Comment on above: Order Comment: Speci men Type: BLOOD SPECIMENOrdering Facility: [facility] Address: [address] [place] [address] Performed By: #### 3 016-3, 73510-9, 91251-7 ####[facility] LABORATORYCLIA [id number] [place] [address] [place] Calcium [Mass/Vol] 9.2 mg/dL Normal 8.5-10.2 [facility] Comment on above: Order Comment: Speci men Type: BLOOD SPECIMENOrdering Facility: [facility] Address: [address] [place] [address] Performed By: #### 3 016-3, 10258-4, 13921-6 ####[facility]aceuticals[facility] LABORATORYCLIA [id number] [place] [id number] [place] Chloride [Moles/Vol] 108 mmol/L High 98-107 [facility] Comment on above: Order Comment: Speci men Type: BLOOD SPECIMENOrdering Facility: [facility] Address: [address] [place] [address] Performed By: #### 3 016-3, 60139-8, 14869-8 ####[facility]aceuticalsMON[facility] LABORATORYCLIA [id number] [place] [id number] [place] CO2 [Moles/Vol] 27 mmol/L Normal 22-30 [facility] Comment on above: Order Comment: Speci men Type: BLOOD SPECIMENOrdering Facility: [facility] Address: [address] [place] [address] Performed By: #### 3 016-3, 77408-6, 64484-2 ####[facility] PharmaceuticalsMON[facility]OM[facility] LABORATORYCLIA [id number] [place] [address] [place] Creatinine [Mass/Vol] 1.15 mg/dL High 0.58-0.96 [facility] Comment on above: Order Comment: Speci men Type: BLOOD SPECIMENOrdering Facility: [facility] Address: [address] [place] [address] Performed By: #### 3 016-3, 45302-6, 35821-1 ####[facility] LABORATORYCLIA [id number] [place] [id number] [facility] Creatinine and Glomerular filtration rate.predicted panel (S/P/Bld) 55 mL/min/1.73m??? Low >=60 [facility] Comment on above: Order Comment: Speci men Type: BLOOD SPECIMENOrdering Facility: [facility] Address: [address] [place] [address] Result Comment: Devika mated Glomerular Filtration Rate [...] actual GFR. Performed By: #### 3 016-3, 12462-4, ####[facility] LABORATORYCLIA [id number] [place] [address] [place] Glucose [Mass/Vol] 76 mg/dL Normal 74-99 [facility] Comment on above: Order Comment: Henry johnson Type: BLOOD SPECIMENOrdering Facility: [facility] Address: [address] [place] [address] Result Comment: The [place] Diabetes Association (ADA) provides guidance for cutoff [...] Standards of Medical Care in Diabetes 2016, [place] Diabetes Association. Diabetes Care. 2016.39(Suppl 1). Performed By: #### 3 016-3, 33961-4, ####[facility] LABORATORYCLIA [id number] [place] [id number] [place] Potassium [Moles/Vol] 4.5 mmol/L Normal 3.7-5.1 [facility] Comment on above: Order Comment: Henry johnson Type: BLOOD SPECIMENOrdering Facility: [facility] Address: [address] [place] [address] Performed By: #### 3 016-3, 35374-8, ####[facility] LABORATORYCLIA [id number] [place] [address] [place] Protein [Mass/Vol] 6.4 g/dL Normal 6.3-8.0 [facility] Comment on above: Order Comment: Speci men Type: BLOOD SPECIMENOrdering Facility: [facility] Address: [address] [place] [address] Performed By: #### 3 016-3, 31467-5, 82534-9 ####[facility] LABORATORYCLIA [id number] [place] [id number] [place] Sodium [Moles/Vol] 146 mmol/L High 136-144 [facility] Comment on above: Order Comment: Speci men Type: BLOOD SPECIMENOrdering Facility: [facility] Address: [address] [place] [address] Performed By: #### 3 016-3, 40649-6, 12056-4 ####[facility] LABORATORYCLIA [id number] [place] [address] [place] Urea nitrogen [Mass/Vol] 15 mg/dL Normal 7-21 [facility] Comment on above: Order Comment: Speci men Type: BLOOD SPECIMENOrdering Facility: [facility] Address: [address] [place] [address] Performed By: #### 3 016-3, 95701-3, 53806-0 ####[facility] LABORATORYCLIA [id number] [place] [address] [place] Folate SerPl-mCncon 05-20-19 25 Folate [Mass/Vol] 9.9 ng/mL Normal >4.7 [facility] Comment on above: Order Comment: Speci men Type: BLOOD SPECIMENOrdering Facility: [facility] Address: [address] [place] [address] Performed By: #### 2 132-9, 2284-8 ####[facility]aceuticals[facility] LABORATORYCLIA [id number] [place] [address] [place] HbA1c (Bld)on 05-20-2024 Average glucose Estimated from glycated hemoglobin (Bld) [Mass/Vol] 97 mg/dL Normal [facility] Comment on above: Order Comment: Speci men Type: BLOOD SPECIMENOrdering Facility: [facility] Address: [address] [place] [address] Result Comment: eAG: (Estimated average glucose) is a calculated value from HgbA1c and is sales and merchandising representative of the average blood glucose level in the last 2-3 month period. Performed By: #### 5 5454-3 ####[facility] LABCLIA [id number] [place] [address] [place] HbA1c (Bld) [Mass fraction] 5.0 % Normal 4.3-5.6 [facility] Comment on above: Order Comment: Speci men Type: BLOOD SPECIMENOrdering Facility: [facility] Address: [address] [place] [address] Result Comment: Amer [place] Diabetes Association guidelines indicate that patients with HgbA1c in the range 5.7-6.4% are at increased risk for development of diabetes, and intervention by lifestyle modification may be beneficial. HgbA1c greater or equal to 6.5% is considered diagnostic of diabetes. Performed By: #### 5 5454-3 ####[facility] LABCLIA [id number] [place] [address] [place] Iron and Iron binding capaci ty panelon 05-20-2024 Iron [Mass/Vol] 70 ug/dL Normal 41-186 [facility] Comment on above: Order Comment: Speci men Type: BLOOD SPECIMENOrdering Facility: [facility] Address: [address] [place] [address] Performed By: #### 3 016-3, 86820-2, 97120-8 ####[facility] LABORATORYCLIA [id number] [place] [address] [place] Iron binding capacity [Mass/Vol] 222 ug/dL Low 232-386 [facility] Comment on above: Order Comment: Speci men Type: BLOOD SPECIMENOrdering Facility: [facility] Address: [address] [place] [address] Performed By: #### 3 016-3, 13056-5, 74000-5 ####[facility] LABORATORYCLIA [id number] [address] Iron saturation [Mass fraction] 31.5 % Normal 15.0-57.0 [facility] Comment on above: Order Comment: Speci men Type: BLOOD SPECIMENOrdering Facility: [facility] Address: [address] [place] [address] Performed By: #### 3 016-3, 30164-0, 82211-8 ####[facility] LABORATORYCLIA [id number] [address] OF [facility] TSH SerPl-aCncon 05-20-2024 TSH Qn 1.390 m[IU]/L Normal 0.270-4.200 [facility] Comment on above: Order Comment: Speci men Type: BLOOD SPECIMENOrdering Facility: [facility] Address: [address] [place] [address] Performed By: #### 3 016-3, 04989-5, 29093-0 ####[facility] LABORATORYCLIA [id number] [address] OF [facility] Vit B12 SerPl-mCncon 025 Cobalamin (Vitamin B12) [Mass/Vol] 909 pg/mL Normal 232-1245 [facility] Comment on above: Order Comment: Speci men Type: BLOOD SPECIMENOrdering Facility: [facility] Address: [address] [place] [address] Performed By: #### 2 132-9, 2284-8 ####[facility] LABORATORYCLIA [id number] [address] OF [facility] CNOVon 05-13-2024 CNOV Office Visit (PODIWS ) INÉS SHANKS ([id number]) 1965 F Date Time Provider Department 05/13/24 1:00 PM DRU SAHU PODIWFabiana During your visit today, we recorded the [...] 5.4 4.3 - 5.6 % Final Comment: [place] Diabetes Association guidelines indicate that patients with [...] sublingual (NITROQUICK (more content not included)... Normal [facility] XR TOE 3V AP/LAT/OBL RTon [...] the distal phalanx of the great toe. Audit Director: PSCFrancisco Transcribe Date/Time: May 18 2024 7:36A Dictated by : MARIAM BANG MD This examination was interpreted and the report reviewed and electronically signed by: MARIAM BANG MD on May 18 2024 7:38AM EST [id number] Normal [facility] Gabriela 05-06-2024 CHILON Telephone (PODIWS) INÉS SHANKS ([id number]) 1965 F Date Time Provider Department 05/06/24 TERRANCEPOLO DRU DUMONT During your visit today, we recorded the following information about you: Crystal Sahuew 05/06/2024 5:44 PM Signed I attempted to contact patient but no answer. Unable to leave voice mail because her voice mail is yet to be set up. Left [employer] message Dru BRITTNY Sahu Crystal Sahuew 05/10/2024 10:48 AM Signed Contacted patient to discuss xrays. She finally got back to my [employer] message. I would like her to get surgical shoe for fracture of great toe. She is to repeat xrays of right great toe in 2 weeks. Continue with local wound care Hollie Diana LPN 05/10/2024 10:55 AM Signed Patient will apple picker post op shoe on Thursday05/13/2024 at [...] initial encounter [S92.401A] Order(s):XR TOE AP/LAT/OBL RIGHT [[id number]] Order #: [id number] FUTURE E-CONSULT INFECTIOUS DISEASE [[id number]] Order #: [id number]: 1 Prescriptions as of 05/10/2024 - pantoprazole [...] chin strap (if indicated) and lifetime supplies ([facility]) DX: KRZYSZTOF G47.33 - multivit with minerals/lutein (MULTIVITAMIN 50 PLUS ORAL) Take 1 tablet by mouth once daily. - COMPOUNDED PRESCRIPTION Diabetic shoes One pair - CPAP CPAP with humidification. Mask (per patient preference) optional chin strap (if indicated (more content not included)... Normal [facility] Bacteria Wnd Culton 05-05-19 25 [...] , Intermediate >4 , Resistant >8 Abnormal [facility] Comment on above: Performed By: #### 6 462-6 ####[facility] LABLISA [id number] [place] [id number] [place] CNOVon 05-05-2024 CNOV Office Visit (PODIWS ) INÉS SHANKS ([id number]) 1965 F Date Time Provider Department 05/05/24 1:45 PM DRU SAHU During your visit today, we recorded the following information about you: Hollie Diana LPN 05/05/2024 2:08 PM Signed AMB ROOMING INTAKE FLOWSHEET DATA Pain Pain Level: 1 Pain Location: Toe Description: Sore Duration Amount of Time: 1 Duration Units: Months Frequency: Intermittent Intervention/Comfort measure: Relaxation, Reposition, Medication Patient presents with: Right Foot - Established Patient, Follow Up ROXANE BergerDru rodriguez 05/05/2024 2:08 PM Signed FOLLOW UP PODIATRIC [...] 5.4 4.3 - 5.6 % Final Comment: [place] Diabetes Association guidelines indicate that patients with HgbA1c in the range 5.7-6.4% are at increased risk for development of diabetes, and intervention by lifestyle modification may be beneficial. HgbA1c greater or equal to 6.5% is considered diagnostic of diabetes. PCP: Santhosh Holden MD PAST MEDICAL HISTORY Diagnosis Date Anxiety Powers's esophagus Bipolar 1 disorder ([facility]) Dr. Orozco, psychiatry Chronic headaches Coronary-myocardial bridge DDD (degenerative disc disease) Depression 01/05/2015 Essential tremor TK tremor Fibromyalgia GERD (gastroesophageal reflux disease) HTN (hypertension) Hyperlipidemia Hypothyroid Liver fibrosis Mild CAD 08/22/2019 Neuropathy Non-melanoma skin cancer 03/08/2021 Obstructive sleep apnea PTSD (post-traumatic stress disorder) PVD (peripheral vascular disease) ([facility]) Sciatica Shoulder injury Type II or unspecified [...] mouth at (more content not included)... Normal [facility] XR TOE 3V AP/LAT/OBL RTon [...] distal phalanx. No radiographic evidence of osteomyelitis. Audit Director: PSCB Transcribe Date/Time: May 05 2024 2:38P Dictated by : DEO OROSCO DO This examination was interpreted and the report reviewed and electronically signed by: DEO OROSCO DO on May 05 2024 2:44PM EST [id number] Normal [facility] XR Toes - right 3 Viewson IMPRESSION: Avulsion of the RIGHT great toe nailbed and subacute appearing nondisplaced fracture of the tuft of the RIGHT great toe distal phalanx. No radiographic evidence of osteomyelitis. Audit Director: PSCB Transcribe Date/Time: May 05 2024 2:38P Dictated by : DEO OROSCO DO This examination was interpreted and the report reviewed and electronically signed by: DEO OROSCO DO on May 05 2024 2:44PM [facility] DIVISION OF RADIOLOGY * * *Final [...] spaces appear maintained. DIVISION OF RADIOLOGY Provider, [facility] - 05/05/2024 * * *Final Report* [...] distal phalanx. No radiographic evidence of osteomyelitis. Audit Director: MEERA Transcribe Date/Time: May 05 2024 2:38P Dictated by : DEO OROSCO DO This examination was interpreted and the report reviewed and electronically signed by: DEO OROSCO DO on May 05 2024 2:44PM EST [facility] Radiology Study observation (narrative) [facility] XR Toes - right 3 ViewsOrder ed By: Ccf Provider on 05-05-2024 [facility] Bacteria Wnd Culton 03-29-19 25 Bacteria [...] , Intermediate >4 , Resistant >8 Abnormal [facility] Comment on above: Performed By: #### 6 462-6 ####[facility] LABCLIA [id number] [address] [place] Bacteria identified Cx Nom [...] , Intermediate >4 , Resistant >8 Abnormal [facility] Comment on above: Performed By: #### 6 462-6 ####[facility] LABCLIA [id number] [address] OF [facility] CNOVon 03-29-2024 CNOV Office Visit (PODIWS ) INÉS SHANKS ([id number]) 1965 F FNS Date Time Provider Department 03/29/24 11:30 AM DRU SAHUS During your visit today, we recorded the [...] stress disorder) PVD (peripheral vascular disease) ([facility]) Sciatica Shoulder injury Type II or unspecified [...] indicated) and (more content not included)... Normal [facility] CNOVon 01-08-2024 CNOV Office Visit ([facility] ) INÉS SHANKS ([id number]) 1965 F FNS Date Time Provider Department 01/08/24 11:[address] [facility] During your visit today, we recorded the [...] daily with (more content not included)... Normal [facility] Office Visit ([facility] ) INÉS SHANKS ([id number]) 1965 F FNS Date Time Provider Department 12/25/23 10:00 AM DRU COLLADO During your visit today, we recorded the following information about you: Dru Collado MD 12/25/2023 11:07 AM Signed HPI Inés Orellana Workman is a 58 [...] electronic medical record. Referring Provider: SANTHOSH HOLDEN [[id number]] Allergies As of Date: 12/25/2023 Noted Allergy [...] Fenofibrate (LOFIB (more content not included)... Normal [facility] Office Visit ([place] ) INÉS SHANKS Reyna ([id number]) 1965 [facility] Date Time Provider Department 12/25/23 9:30 AM JOSE MIR During your visit today, we recorded the following information about you: Jose Mir, ODILIA 12/25/2023 10:21 AM Signed [facility] [place] AUDIOLOGIC EVALUATION REPORT Name: Inés Shanks CC#: [id number] Date of Service: 12/25/2023 Date of : 1965 Age: [age] year old Referred by: Dru Collado MD Referred for: Evaluation of suspected change in hearing, tinnitus, or balance. Referral documented: In an order in [facility] Patient's major complaints: Hearing loss: asking [...] evaluation of middle ear function. CPT code: 29706 RIGHT EAR: Did not test. LEFT EAR: Did not test. ACOUSTIC REFLEXES Description of procedure: This test is an objective measure of auditory and facial nerve pathways. CPT code: 56057, 94602 RIGHT EAR PROBE EAR: (ipsi right stimulus [...] bone conduction and speech recognition testing. CPT code:49447 RIGHT EAR: Hearing Sensitivity: Mild SNHL Word [...] testing. RECOMMENDATIONS * Continue medical follow-up with rDu Collado MD. * The patient was counseled regarding the need to continue to monitor hearing and have regular hearing assessments. * The patient was counseled regarding effective communication strategies to enhance communication ability. * Provided patient with list of sites that provide hearing aids for individuals who have Medicaid. Odilia Maurice, [facility] New Product Trainer copied to: Dru Collado MD ROJO Abbrev- iation Definition Degree of hearing sensitivity dB range WNL within normal limits WNL 0 - 20 SNHL sensorineural hearing loss Mild 20-40 CHL conductive hearing loss Moderate 40-55 MHL mixed hearing (more content not included)... Normal [facility] Auto Differential pane l (Bld)on 11-11-2023 Basophils (Bld) [#/Vol] 0.03 10*3/uL Normal <0.11 [facility] Comment on above: Order Comment: Speci men Type: BLOOD SPECIMENOrdering Facility: [facility] Address: [address] [place] [address] Performed By: #### 5 7021-8 ####[facility] [id number] [place] [address] [place] Basophils/100 WBC (Bld) 0.5 % Normal [facility] Comment on above: Order Comment: Speci men Type: BLOOD SPECIMENOrdering Facility: [facility] Address: [address] [place] [address] Performed By: #### 5 7021-8 ####[facility] [id number] [place] [address] [place] Differential cell count method Nom (Bld) Auto Normal [facility] Comment on above: Order Comment: Speci men Type: BLOOD SPECIMENOrdering Facility: [facility] Address: [address] [place] [address] Performed By: #### 5 7021-8 ####[facility] [id number] [place] [address] [place] Eosinophils (Bld) [#/Vol] 0.10 10*3/uL Normal <0.46 [facility] Comment on above: Order Comment: Speci men Type: BLOOD SPECIMENOrdering Facility: [facility] Address: [address] [place] [address] Performed By: #### 5 7021-8 ####[facility] [id number] [place] [address] [place] Eosinophils/100 WBC (Bld) 1.5 % Normal [facility] Comment on above: Order Comment: Speci men Type: BLOOD SPECIMENOrdering Facility: [facility] Address: [address] [place] [address] Performed By: #### 5 7021-8 ####[facility] [id number] [place] [address] [place] Erythrocyte distribution width (RBC) [Ratio] 12.9 % Normal 11.5-15.0 [facility] Comment on above: Order Comment: Speci men Type: BLOOD SPECIMENOrdering Facility: [facility] Address: [address] [place] [address] Performed By: #### 5 7021-8 ####[facility] [id number] [place] [address] [place] Hematocrit (Bld) [Volume fraction] 39.0 % Normal 36.0-46.0 [facility] Comment on above: Order Comment: Speci men Type: BLOOD SPECIMENOrdering Facility: [facility] Address: [address] [place] [address] Performed By: #### 5 7021-8 ####[facility] [id number] [place] [address] [place] Hemoglobin (Bld) [Mass/Vol] 12.3 g/dL Normal 11.5-15.5 [facility] Comment on above: Order Comment: Speci men Type: BLOOD SPECIMENOrdering Facility: [facility] Address: [address] [place] [address] Performed By: #### 5 7021-8 ####[facility] [id number] [place] [address] [place] Immature granulocytes (Bld) [#/Vol] 10*3/uL Normal <0.10 [facility] Comment on above: Order Comment: Speci men Type: BLOOD SPECIMENOrdering Facility: [facility] Address: [address] [place] [address] Performed By: #### 5 7021-8 ####[facility] [id number] [place] [address] [place] Immature granulocytes/100 WBC (Bld) 0.3 % Normal [facility] Comment on above: Order Comment: Speci men Type: BLOOD SPECIMENOrdering Facility: [facility] Address: [address] [place] [address] Performed By: #### 5 7021-8 ####[facility] [id number] [place] [address] [place] Lymphocytes (Bld) [#/Vol] 1.88 10*3/uL Normal 1.00-4.00 [facility] Comment on above: Order Comment: Speci men Type: BLOOD SPECIMENOrdering Facility: [facility] Address: [address] [place] [address] Performed By: #### 5 7021-8 ####[facility] [id number] [place] [address] [place] Lymphocytes/100 WBC (Bld) 28.6 % Normal [facility] Comment on above: Order Comment: Speci men Type: BLOOD SPECIMENOrdering Facility: [facility] Address: [address] [place] [address] Performed By: #### 5 7021-8 ####[facility] [id number] [place] [address] [place] MCH (RBC) [Entitic mass] 28.7 pg Normal 26.0-34.0 [facility] Comment on above: Order Comment: Speci men Type: BLOOD SPECIMENOrdering Facility: [facility] Address: [address] [place] [address] Performed By: #### 5 7021-8 ####[facility] [id number] [place] [address] [place] MCHC (RBC) [Mass/Vol] 31.5 g/dL Normal 30.5-36.0 [facility] Comment on above: Order Comment: Speci men Type: BLOOD SPECIMENOrdering Facility: [facility] Address: [address] [place] [address] Performed By: #### 5 7021-8 ####[facility] [id number] [place] [address] [place] MCV (RBC) [Entitic vol] 91.1 fL Normal 80.0-100.0 [facility] Comment on above: Order Comment: Speci men Type: BLOOD SPECIMENOrdering Facility: [facility] Address: [address] [place] [address] Performed By: #### 5 7021-8 ####[facility] [id number] [place] [address] [place] Monocytes (Bld) [#/Vol] 0.32 10*3/uL Normal <0.87 [facility] Comment on above: Order Comment: Speci men Type: BLOOD SPECIMENOrdering Facility: [facility] Address: [address] [place] [address] Performed By: #### 5 7021-8 ####[facility] [id number] [place] [address] [place] Monocytes/100 WBC (Bld) 4.9 % Normal [facility] Comment on above: Order Comment: Speci men Type: BLOOD SPECIMENOrdering Facility: [facility] Address: [address] [place] [address] Performed By: #### 5 7021-8 ####[facility] [id number] [place] [address] [place] Neutrophils (Bld) [#/Vol] 4.23 10*3/uL Normal 1.45-7.50 [facility] Comment on above: Order Comment: Speci men Type: BLOOD SPECIMENOrdering Facility: [facility] Address: [address] [place] [address] Performed By: #### 5 7021-8 ####[facility] [id number] [place] [address] [place] Neutrophils/100 WBC (Bld) 64.2 % Normal [facility] Comment on above: Order Comment: Speci men Type: BLOOD SPECIMENOrdering Facility: [facility] Address: [address] [place] [address] Performed By: #### 5 7021-8 ####[facility] [id number] [place] [address] [place] Nucleated RBC (Bld) [#/Vol] 10*3/uL Normal <0.01 [facility] Comment on above: Order Comment: Speci men Type: BLOOD SPECIMENOrdering Facility: [facility] Address: [address] [place] [address] Performed By: #### 5 7021-8 ####[facility] [id number] [place] [address] [place] Nucleated RBC/100 WBC (Bld) [Ratio] 0.0 /100 WBC Normal [facility] Comment on above: Order Comment: Speci men Type: BLOOD SPECIMENOrdering Facility: [facility] Address: [address] [place] [address] Performed By: #### 5 7021-8 ####[facility] [id number] [place] [address] [place] Platelet mean volume (Bld) [Entitic vol] 11.6 fL Normal 9.0-12.7 [facility] Comment on above: Order Comment: Speci men Type: BLOOD SPECIMENOrdering Facility: [facility] Address: [address] [place] [address] Performed By: #### 5 7021-8 ####[facility] [id number] [place] [address] [place] Platelets (Bld) [#/Vol] 209 10*3/uL Normal 150-400 [facility] Comment on above: Order Comment: Speci men Type: BLOOD SPECIMENOrdering Facility: [facility] Address: [address] [place] [address] Result Comment: No c lot detected. Performed By: #### 5 7021-8 ####[facility] [id number] [place] [address] [place] RBC (Bld) [#/Vol] 4.28 10*6/uL Normal 3.90-5.20 [facility] Comment on above: Order Comment: Speci men Type: BLOOD SPECIMENOrdering Facility: [facility] Address: [address] [place] [address] Performed By: #### 5 7021-8 ####[facility] [id number] [place] [address] [place] WBC (Bld) [#/Vol] 6.58 10*3/uL Normal 3.70-11.00 [facility] Comment on above: Order Comment: Speci men Type: BLOOD SPECIMENOrdering Facility: [facility] Address: [address] [place] [address] Performed By: #### 5 7021-8 ####[facility] [id number] [id number] [id number] [facility] CNOVon 11-11-2023 CNOV Office Visit ([facility] ) INÉS SHANKS ([id number]) 1965 F FNS Date Time Provider Department 11/11/23 10:00 AM [facility] During your visit today, we recorded the following information about you: Pulse Respiration Blood pressure Weight 66/minute 16/minute 120/72 96.6 kg Saumya Vargas APRN.ACQUISITION ASSOCIATE 11/11/2023 2:38 PM Signed This is a [...] No date: PVD (peripheral vascular disease) ([facility]) No date: Sciatica No date: Shoulder injury [...] EGD 01/10/2016: ESOPHAGOGASTRODUODENOSCOPY TRANSORAL DIAGNOSTIC Comment: EGD ([facility]) 03/2016: GASTRIC BYPASS HX Comment: gastric sleeve [...] pen Inje (more content not included)... Normal [facility] Comprehensive metabolic 2000 panelon 11-11-2023 Albumin [Mass/Vol] 4.2 g/dL Normal 3.9-4.9 [facility] Comment on above: Order Comment: Speci men Type: BLOOD SPECIMENOrdering Facility: [facility] Address: [address] [place] [address] Performed By: #### 2 4323-8, 03284-9, 52320-9, 3016-3 ####[facility] [id number] [place] [address] [place] ALP [Catalytic activity/Vol] 40 U/L Normal 34-123 [facility] Comment on above: Order Comment: Speci men Type: BLOOD SPECIMENOrdering Facility: [facility] Address: [address] [place] [address] Performed By: #### 2 4323-8, 80826-8, 23008-5, 3016-3 ####[facility] [id number] [place] [address] [place] ALT [Catalytic activity/Vol] 12 U/L Normal 7-38 [facility] Comment on above: Order Comment: Speci men Type: BLOOD SPECIMENOrdering Facility: [facility] Address: [address] [place] [address] Performed By: #### 2 4323-8, 52075-4, 82199-0, 3016-3 ####[facility] [id number] [place] [address] [place] Anion gap [Moles/Vol] 12 mmol/L Normal 8-15 [facility] Comment on above: Order Comment: Speci men Type: BLOOD SPECIMENOrdering Facility: [facility] Address: [address] [place] [address] Performed By: #### 2 4323-8, 58913-5, 35627-2, 3016-3 ####[facility] [id number] [place] [address] [place] AST [Catalytic activity/Vol] 22 U/L Normal 13-35 [facility] Comment on above: Order Comment: Speci men Type: BLOOD SPECIMENOrdering Facility: [facility] Address: [address] [place] [address] Performed By: #### 2 4323-8, 05331-9, 30169-4, 3016-3 ####[facility] [id number] [place] [address] [place] Bilirubin [Mass/Vol] 0.4 mg/dL Normal 0.2-1.3 [facility] Comment on above: Order Comment: Speci men Type: BLOOD SPECIMENOrdering Facility: [facility] Address: [address] [place] [address] Performed By: #### 2 4323-8, 34709-9, 34334-8, 3016-3 ####[facility] [id number] [address] [address] [place] Calcium [Mass/Vol] 9.7 mg/dL Normal 8.5-10.2 [facility] Comment on above: Order Comment: Speci men Type: BLOOD SPECIMENOrdering Facility: [facility] Address: [address] [place] [address] Performed By: #### 2 4323-8, 57241-9, 15308-7, 3016-3 ####[facility] [id number] [place] [address] [place] Chloride [Moles/Vol] 105 mmol/L Normal 98-107 [facility] Comment on above: Order Comment: Speci men Type: BLOOD SPECIMENOrdering Facility: [facility] Address: [address] [place] [address] Performed By: #### 2 4323-8, 02686-3, 99844-0, 3016-3 ####[facility] [id number] [place] [address] [place] CO2 [Moles/Vol] 23 mmol/L Normal 22-30 [facility] Comment on above: Order Comment: Speci men Type: BLOOD SPECIMENOrdering Facility: [facility] Address: [address] [place] [address] Performed By: #### 2 4323-8, 79372-0, 52068-8, 3016-3 ####[facility] [id number] [place] [address] [place] Creatinine [Mass/Vol] 1.13 mg/dL High 0.58-0.96 [facility] Comment on above: Order Comment: Speci men Type: BLOOD SPECIMENOrdering Facility: [facility] Address: [address] [place] [address] Performed By: #### 2 4323-8, 92060-4, 85305-7, 3016-3 ####[facility] [id number] [place] [address] [place] Creatinine and Glomerular filtration rate.predicted panel (S/P/Bld) 56 mL/min/1.73m??? Low >=60 [facility] Comment on above: Order Comment: Henry johnson Type: BLOOD SPECIMENOrdering Facility: [facility] Address: [address] [place] [address] Result Comment: Devika mated Glomerular Filtration Rate [...] actual GFR. Performed By: #### 2 4323-8, 60644-5, 95451-0, 3016-3 ####[facility] [id number] [place] [id number] [place] Glucose [Mass/Vol] 89 mg/dL Normal 74-99 [facility] Comment on above: Order Comment: Henry johnson Type: BLOOD SPECIMENOrdering Facility: [facility] Address: [address] [place] [address] Result Comment: The [place] Diabetes Association (ADA) provides guidance for cutoff [...] Standards of Medical Care in Diabetes 2016, [place] Diabetes Association. Diabetes Care. 2016.39(Suppl 1). Performed By: #### 2 4323-8, 51504-1, 74911-9, 3016-3 ####[facility] [id number] [address] [address] [place] Potassium [Moles/Vol] 5.1 mmol/L Normal 3.7-5.1 [facility] Comment on above: Order Comment: Speci men Type: BLOOD SPECIMENOrdering Facility: [facility] Address: [address] [place], [place] [address] Performed By: #### 2 4323-8, 98099-9, 26021-4, 3016-3 ####[facility] [id number] [address] [address] [place] Protein [Mass/Vol] 6.9 g/dL Normal 6.3-8.0 [facility] Comment on above: Order Comment: Speci men Type: BLOOD SPECIMENOrdering Facility: [facility] Address: [address] [place] [address] Performed By: #### 2 4323-8, 63013-0, 41024-1, 3016-3 ####[facility] [id number] [place] [id number] [place] Sodium [Moles/Vol] 140 mmol/L Normal 136-144 [facility] Comment on above: Order Comment: Speci men Type: BLOOD SPECIMENOrdering Facility: [facility] Address: [address] [place] [address] Performed By: #### 2 4323-8, 60888-7, 25421-2, 3016-3 ####[facility] [id number] [address] [address] [place] Urea nitrogen [Mass/Vol] 18 mg/dL Normal 7-21 [facility] Comment on above: Order Comment: Speci men Type: BLOOD SPECIMENOrdering Facility: [facility] Address: [address] [place] [address] Performed By: #### 2 4323-8, 39545-6, 68747-9, 3016-3 ####[facility] [id number] [place] [address] [place] Folate SerPl-mCncon 11-11-19 Folate [Mass/Vol] 18.5 ng/mL Normal >4.7 [facility] Comment on above: Order Comment: Speci men Type: BLOOD SPECIMENOrdering Facility: [facility] Address: [address] [place] [address] Performed By: #### 2 284-8, 2132-9 ####[facility] [id number] [place] [address] [place] HbA1c (Bld)on 11-11-2023 Average glucose Estimated from glycated hemoglobin (Bld) [Mass/Vol] 108 mg/dL Normal [facility] Comment on above: Order Comment: Henry johnson Type: BLOOD SPECIMENOrdering Facility: [facility] Address: [address] [place] [address] Result Comment: eAG: (Estimated average glucose) is a calculated value from HgbA1c and is sales and merchandising representative of the average blood glucose level in the last 2-3 month period. Performed By: #### 5 5454-3 ####[facility] [id number] [place] [address] [place] HbA1c (Bld) [Mass fraction] 5.4 % Normal 4.3-5.6 [facility] Comment on above: Order Comment: Idalmisi men Type: BLOOD SPECIMENOrdering Facility: [facility] Address: [address] [place] [address] Result Comment: Amer [place] Diabetes Association guidelines indicate that patients with HgbA1c in the range 5.7-6.4% are at increased risk for development of diabetes, and intervention by lifestyle modification may be beneficial. HgbA1c greater or equal to 6.5% is considered diagnostic of diabetes. Performed By: #### 5 5054-3 ####[facility] [id number] [place] [id number] [place] Iron and Iron binding capaci ty panelon 11-11-2023 Iron [Mass/Vol] 82 ug/dL Normal 41-186 [facility] Comment on above: Order Comment: Speci men Type: BLOOD SPECIMENOrdering Facility: [facility] Address: [address] [place] [address] Performed By: #### 2 4323-8, 21218-1, 74819-3, 3016-3 ####[facility] [id number] [place] [address] [place] Iron binding capacity [Mass/Vol] 264 ug/dL Normal 232-386 [facility] Comment on above: Order Comment: Speci men Type: BLOOD SPECIMENOrdering Facility: [facility] Address: [address] [place] [address] Performed By: #### 2 4323-8, 38015-4, 48831-3, 3016-3 ####[facility] [id number] [place] [address] [place] Iron/TIBC [Molar ratio] 31.1 % Normal 15.0-57.0 [facility] Comment on above: Order Comment: Speci men Type: BLOOD SPECIMENOrdering Facility: [facility] Address: [address] [place] [address] Performed By: #### 2 4323-8, 68868-9, 02782-1, 3016-3 ####[facility] [id number] [place] [id number] [place] Lipid 1996 panelon 4 Cholesterol [Mass/Vol] 181 mg/dL Normal <200 [facility] Comment on above: Order Comment: Speci men Type: BLOOD SPECIMENOrdering Facility: [facility] Address: [address] [place] [address] Result Comment: <200 mg/dL, Desirable 200-239 mg/dL, Borderline high >239 mg/dL, High Performed By: #### 2 4323-8, 99028-6, 61659-7, 3016-3 ####[facility] [id number] [address] [address] [place] Cholesterol in HDL [Mass/Vol] 41 mg/dL Normal >39 [facility] Comment on above: Order Comment: Speci men Type: BLOOD SPECIMENOrdering Facility: [facility] Address: [address] [place] [address] Result Comment: 40-5 9 mg/dL, Acceptable >59 mg/dL, High: Negative risk factor for coronary heart disease <40 mg/dL, Low: Positive risk factor for coronary heart disease Performed By: #### 2 4323-8, 94853-0, 55945-7, 6-3 ####[facility] [id number] [address] [address] [place] Cholesterol in LDL [Mass/Vol] 97 mg/dL Normal <100 [facility] Comment on above: Order Comment: Idalmisi men Type: BLOOD SPECIMENOrdering Facility: [facility] Address: [address] [place] [address] Result Comment: <100 mg/dL, Optimal 100-129 mg/dL, Near optimal/above optimal 130-159 mg/dL, Borderline high 160-189 mg/dL, High >189 mg/dL, Very high Secondary prevention optimal LDL Cholesterol levels are recommended to be < 70 mg/dL Performed By: #### 2 4323-8, 41736-4, 28004-7, 3016-3 ####[facility] [id number] [address] [address] [place] Cholesterol in LDL/Cholesterol in HDL [Mass ratio] 2.37 {ratio} Normal <2.54 [facility] Comment on above: Order Comment: Speci men Type: BLOOD SPECIMENOrdering Facility: [facility] Address: [address] [place] [address] Result Comment: Refe rence: 1. National Cholesterol Education Program ATP III Guideline At-A-Glance Quick Desk Reference: National Heart, Lung, and Blood [place]. National Institutes of Health. 2001: NIH Publication No. 01-3305. 2. An International Atherosclerosis Society position paper: global recommendations for the management of dyslipidemia: executive summary, Atherosclerosis. 2014: 232(2):410-413. Performed By: #### 2 4323-8, 02440-3, 84988-1, 3016-3 ####[facility] [id number] [place] [address] [place] Cholesterol in VLDL [Mass/Vol] 43 mg/dL High <30 [facility] Comment on above: Order Comment: Speci men Type: BLOOD SPECIMENOrdering Facility: [facility] Address: [address] [place] [address] Performed By: #### 2 4323-8, 15754-3, 38610-3, 6-3 ####[facility] [id number] [place] [address] [place] Cholesterol non HDL [Mass/Vol] 140 mg/dL High <130 [facility] Comment on above: Order Comment: Speci men Type: BLOOD SPECIMENOrdering Facility: [facility] Address: [address] [place] [address] Result Comment: <130 mg/dL, Optimal 130-159 mg/dL, Near optimal/above optimal 160-189 mg/dL, Borderline high 190-219 mg/dL, High >219 mg/dL, Very high Secondary prevention optimal non HDL Cholesterol levels are recommended to be <100 mg/dL Performed By: #### 2 4323-8, 33597-2, 90453-9, 3016-3 ####[facility] [id number] [place] [address] [place] Cholesterol.total/C holesterol in HDL [Mass ratio] 4.41 {ratio} Normal <5.10 [facility] Comment on above: Order Comment: Speci men Type: BLOOD SPECIMENOrdering Facility: [facility] Address: [address] [place] [address] Performed By: #### 2 4323-8, 61924-0, 12054-6, 6-3 ####[facility] [id number] [place] [id number] [place] FASTING TIME 12 hrs Normal [facility] Comment on above: Order Comment: Speci men Type: BLOOD SPECIMENOrdering Facility: [facility] Address: [address] [place] [address] Performed By: #### 2 4323-8, 72287-1, 85949-1, 6-3 ####[facility] [id number] [place] [address] [place] Triglyceride [Mass/Vol] 217 mg/dL High <150 [facility] Comment on above: Order Comment: Speci men Type: BLOOD SPECIMENOrdering Facility: [facility] Address: [address] [place] [address] Result Comment: <150 mg/dL, Normal 150-199 mg/dL, Borderline high 200-499 mg/dL, High >499 mg/dL, Very high Performed By: #### 2 4323-8, 00196-6, 12947-8, 3015-3 ####[facility] [id number] [place] [id number] [place] TSH SerPl-aCncon 11-11-2023 TSH Qn 0.800 m[IU]/L Normal 0.270-4.200 [facility] Comment on above: Order Comment: Speci men Type: BLOOD SPECIMENOrdering Facility: [facility] Address: [address] [place] [address] Performed By: #### 2 4323-8, 05212-9, 68570-3, 6-3 ####[facility] [id number] [place] [id number] [place] VITAMIN B1 (THIAMINE), WHOLE BLOODon 11-11-2023 Thiamine (Bld) [Moles/Vol] 111.4 nmol/L Normal 84.3-213.3 [facility] Comment on above: Order Comment: Henry johnson Type: BLOOD SPECIMENOrdering Facility: [facility] Address: [address] [place] [address] Result Comment: This assay measures the concentration of thiamine diphosphate (TDP), the primary active form of vitamin B1. Approximately 90 percent of vitamin B1 present in whole blood is TDP. Thiamine and thiamine monophosphate, which comprise the remaining 10 percent, are not measured. This test was developed and its performance characteristics determined by [facility] Pathology and Laboratory Medicine [place] ([facility]). It has not been cleared or approved by the FDA. [facility] is regulated under CLIA as qualified to perform high-complexity testing. This test is used for clinical purposes. It should not be regarded as investigational or for research. Performed By: #### B 1WB ####[facility] [id number] [place] [address] [place] Vit B12 SerPl-ncon 024 Cobalamin (Vitamin B12) [Mass/Vol] 772 pg/mL Normal 232-1245 [facility] Comment on above: Order Comment: Henry johnson Type: BLOOD SPECIMENOrdering Facility: [facility] Address: [address] [place] [address] Performed By: #### 2 284-8, 2132-9 ####[facility] [id number] [place] [address] [place] CNOVon 07-24-2023 CNOV Office Visit (FAMPWS ) INÉS SHANKS ([id number]) 1965 F FNS Date Time Provider Department 07/24/23 10:00 AM SANTHOSH HOLDEN During your visit today, we recorded the following information about you: Pulse Blood pressure Weight Height 64/minute 130/72 112 kg 1.702 m Santhosh Holden MD 07/24/2023 10:38 AM Signed Patient presents with: Sleep Apnea HPI: Patient presents today for office visit for [id number]-[id number] for replacement CPAP machine. KRZYSZTOF: Has not [...] chin strap (if indicated) and lifetime supplies ([facility]) DX: KRZYSZTOF G47.33 multivit with minerals/lutein [...] too cl (more content not included)... Normal [facility] CNOVon 07-03-2023 CNOV Office Visit ([facility] ) INÉS SHANKS ([id number]) 1965 F FNS Date Time Provider Department 07/03/23 3:[address] [facility] During your visit today, we recorded the [...] blood suga (more content not included)... Normal [facility] XR Chest PA and Lateralon IMPRESSION: No acute radiographic abnormality. Audit Director: MEERA Transcribe Date/Time: Jun 02 2023 3:38P Dictated by : CHANTELL LIZ MD This examination was interpreted and the report reviewed and electronically signed by: CHANTELL LIZ MD on Jun 02 2023 3:38PM [facility] DIVISION OF RADIOLOGY * * *Final [...] the thoracic spine. DIVISION OF RADIOLOGY [facility] * * *Final Report* * [...] spine. IMPRESSION IMPRESSION: No acute radiographic abnormality. Audit Director: PSCB Transcribe Date/Time: Jun 02 2023 3:38P Dictated by : CHANTELL LIZ MD This examination was interpreted and the report reviewed and electronically signed by: CHANTELL LIZ MD on Jun 02 2023 3:38PM EST [facility] Radiology Study observation (narrative) [facility] XR Chest PA and LateralOrder ed By: Ccf Provider on 06-02-2023 [facility] ANES POSTPROC EVALon 023 ANES POSTPROC EVAL HNO ID: [id number] Author: Ayan, Casandra C, DIRECTOR HR COMMUNICATIONS.AUDIT CLERK Service: Anesthesiology Author Type: Nurse Chain Saw Driver Type: Anesthesia Postprocedure Evaluation Filed: 03/12/2023 8:48 AM Note Text: POST ANESTHESIA EVALUATION NOTE : 1965 Procedure Summary Date: 03/12/23 Room / Location: SURGERY Anesthesia Start: 0810 Anesthesia Stop: 0848 Procedures: EGD DIAGNOSTIC COLONOSCOPY SCREENING Diagnosis: 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 Heartburn Special screening for malignant neoplasms, colon 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 Heartburn Special screening for malignant neoplasms, colon Scheduled Providers: Susanna Schneider MD; Casandra Botello APRN.AUDIT CLERK Responsible Provider: Casandra Botello APRN.AUDIT CLERK Anesthesia Type: MAC ASA Status: 3 Anesthesia [...] Anesthesia Observations No Documentation SIGNATURE: Casandra Botello APRN.AUDIT CLERK PATIENT NAME: Inés Shanks DATE: March 12, 2023 TIME: 8:48 AM CSN: [id number] [facility] ANES PRE-OPon 03-12-2023 ANES PRE-OP HNO ID: [id number] Author: Casandra Botello APRN.AUDIT CLERK Service: Anesthesiology Author Type: Nurse Chain Saw Driver Type: Anesthesia Preprocedure Evaluation Filed: 03/12/2023 7:25 AM Note Text: ANESTHESIOLOGY DAY OF SURGERY NOTE : 1965 Procedure Information Date/Time: 03/12/23 0800 Scheduled providers: Susanna Schneider MD; Casandra Botello APRN.AUDIT CLERK Procedures: EGD DIAGNOSTIC COLONOSCOPY SCREENING Location: LD [...] and consent discussed: yes. Patient / Responsible Alliance Party agrees to proceed: yes Patient / [...] mg tablet T (more content not included)... Normal [facility] BRIEF OP NOTon 03-12-2023 BRIEF OP NOT HNO ID: [id number] Author: Susanna Schneider MD Service: General Surgery Author Type: Physician Type: Brief Op Note Filed: 03/12/2023 8:46 AM Note Text: BRIEF OPERATIVE NOTE SURGERY DATE: 03/12/2023 Incision/Procedure Start Time: 8:15 cecal intubation time: 8:32 Incision Close/Procedure End Time: 8:39 Surgeon(s)/Proceduralist(s) and Assembly Machine Feeder(s): love Procedures: EGD with biopsies Colonoscopy with [...] March 12, 2023 TIME: 8:41 AM Acct: [id number] [facility] HISTORY PHYSICALon HISTORY PHYSICAL HNO ID: [id number] Author: Susanna Schneider MD Service: General Surgery Author Type: Physician Type: HANDP Filed: 03/12/2023 7:48 AM Note Text: HISTORY AND PHYSICAL Inés Shanks 1965 REFERRING [...] 500 mg t (more content not included)... Normal [facility] NURSING PROGon 03-12-2023 NURSING PROG HNO ID: [id number] Author: Pricilla Bower RN Service: Nursing Author [...] issues. Patient verbalized understanding of instructions given. [facility] NURSING PROG HNO ID: [id number] Author: Manda Stanley RN Service: Nursing Author Type: Registered Nurse Type: Nursing Progress Note Filed: 03/12/2023 9:20 AM Note Text: Pt stands at bedside with 2 nurses at bedside. Pt advised me that she normally is unsteady and uses a walker at home. Pt denies dizziness or pain. Discharge instructions reviewed with daughter. [facility] NURSING PROG HNO ID: [id number] Author: Pricilla Bower RN Service: Nursing Author Type: Registered Nurse Type: Nursing Progress Note Filed: 03/12/2023 7:56 AM Note Text: Patient education completed with patient. Patient verbalizes understanding of instructions given. Patient ready for procedure. [facility] OPERATIVE NOon 03-12-2023 OPERATIVE NO HNO ID: [id number] Author: Susanna Schneider MD Service: General Surgery Author Type: Physician Type: Operative Report Filed: 03/12/2023 6:27 PM Note Text: [facility] - Operative Report - INÉS Scott : 1965 AGE: 57. SEX: F PATIENT TYPE: O H[facility]P [facility]: [facility] LOCATION: [facility] ATTENDING PHYSICIAN: Susanna Schneider MD [facility] NUMBER: [id number] DATE OF SURGERY/PROCEDURE: 03/12/2023 INCISION/PROCEDURE START TIME: 0815 INCISION CLOSE/PROCEDURE END TIME: 0839 PREOPERATIVE DIAGNOSIS: Screening for colon cancer and history of Powers's. POSTOPERATIVE DIAGNOSIS: Hemorrhoids, transverse colon polyp, and suboptimal colon cleansing prep. SURGEON: Susanna Schneider MD CRESTER: No Additional Staff SURGERY/PROCEDURE: Esophagogastroduodenoscopy with biopsies [...] ESTIMATED BLOOD LOSS: Minimal. Susanna Schneider MD [id number] [facility] SURGICAL PATHOLOGYon 023 CASE REPORT [facility] Comment on above: Order Comment: Speci men Type: TISSUE SPECIMEN [facility] Address: [address] [place] [address] Result Comment: Surg ica Pathology Report Case: [id number] Authorizing Provider: Susanna Schneider MD Collected: 03/12/2023 08:19 AM Ordering Location: SURGERY Received: 03/12/2023 01:21 PM Pathologist: Loretta Oleary MD Specimens: A) - ANTRUM (STOMACH) BIOPSY B) - ESOPHAGOGASTRIC JUNCTION BIOPSY C) - TRANSVERSE COLON BIOPSY Performed By: #### S #### [facility] CLIA [id number] [address] [place] [address] FINAL DIAGNOSIS [facility] Comment on above: Order Comment: Speci elizabeth Type: TISSUE SPECIMEN [facility] Address: [address] [place] [address] Result Comment: A. A ntrum (stomach), biopsy: -- Antral type gastric mucosa with no significant histopathologic abnormalities. -- No morphologic evidence of H. pylori organisms identified on H&E sections. B. Esophagogastric junction, biopsy: -- Squamocolumnar junction with mild chronic inflammation, negative for intestinal metaplasia. C. Transverse colon polyp, polypectomy: -- Serrated polyp, favor hyperplastic polyp. Performed By: #### S #### [facility] CLIA [id number] [address] [place] [address] FINAL PERFORMING LAB [facility] Comment on above: Order Comment: Speci men Type: TISSUE SPECIMEN [facility]ing [facility] Address: [address] [place] [address] Result Comment: Diag nostic interpretation performed at [facility], [address] [place] [address] CLIA# [id number] Burial Vault Maker: Jose Herr M.D. Performed By: #### S #### [facility] CLIA [id number] [address] [place] [address] GROSS DESCRIPTION [facility] Comment on above: Order Comment: Speci men Type: TISSUE SPECIMEN [facility] Address: [address] [place] [address] Result Comment: A. A NTRUM (STOMACH) BIOPSY [...] entirely in C1. Gross examination performed at [facility], [address] [place] [address] CLIA#[id number] OLS March 13, 2023 9:47 AM Performed By: #### S #### [facility] CLIA [id number] [address] [place] [address] [place] NURSING PROGon 03-04-2023 NURSING PROG HNO ID: [id number] Author: Ayo Harrison RN Service: ? Author Type: Registered Nurse Type: Nursing Progress Note Filed: 03/04/2023 10:11 AM Note Text: Summary: Pre-op call Pre-Procedure Checklist Inés Shanks [phone] (home) 1965 57 year old Body mass [...] Problems with Anesthesia (Self or Family?) No Replenisher: Teofilo Saw vessel liner in the last 6 months? Yes Recent EKG/Cardiac Testing: Yes Chest pain in the last 6 months (<6 months cardiac clearance needed): Yes History of: Heart Attack/Stroke/Blood Clot?: No Shortness of Breath: Occasional Asthma: No Inhalers: No Any Outstanding Consults?: No If yes, list: Additional Notes:Awaiting cardiac clearance from Dr. Gallardo [facility] CNOVon 02-06-2023 CNOV Office Visit (CARMED ) INÉS SHANKS ([id number]) 1965 F FNS Date Time Provider Department 02/06/23 1:00 PM FARHAT GALLARDO During your visit today, we recorded the following information about you: Pulse Blood pressure Weight Height 68/minute 118/70 117 kg 1.702 m Farhat Gallardo DO 02/06/2023 3:50 PM Signed [facility] CARDIOLOG[facility] OUTPATIENT VISIT DATE February 06, 2023 PRIMARY CARE PHYSICIAN: Santhosh Holden [address] [place] [address] HISTORY OF PRESENT ILLNESS: Ms. Shanks is [...] SHOULDER + (more content not included)... Normal [facility] EKGon 02-06-2023 Electrocardiogram Ventricular Rate : 6 8 BPM Atrial Rate : 68 BPM P-R Interval : 178 ms QRS Duration : 94 ms Q-T Interval : 436 ms QTC Calculation(Bazett) : 463 ms Calculated P Fisher : 14 degrees Calculated R Fisher : -1 degrees Calculated T Fisher : 39 degrees NORMAL SINUS RHYTHM NONSPECIFIC T WAVE ABNORMALITY PROLONGED QT ABNORMAL ECG WHEN COMPARED WITH ECG OF 19-MAY-2018 10:48, T WAVE INVERSION NO LONGER EVIDENT IN INFERIOR LEADS Confirmed by MD GALLARDO GREGORY () on 03/06/2023 4:18:05 PM Also confirmed by MD GALLARDO GREGORY (), offline editor BETI SANTIAGO ([id number]) on 01/05/2024 9:09:53 AM NAME : INÉS SHANKS PID : [id number] : 1965 Gender : Female Race : [...] Also confirmed by MD GALLARDO GREGORY (), offline editor BETI SANTIAGO ([id number]) on 01/05/2024 9:09:53 AM Test Reason : Location : 659 : [facility] Overread By : MD GALLARDO GREGORY Edited By : BETI SANTIAGO Referred By : , Acquired by : , [facility] Comprehensive metabolic 2000 panelon 12-06-2022 Albumin [Mass/Vol] 4.5 g/dL 3.9 - 4.9 g/dL [facility] ALP [Catalytic activity/Vol] 76 U/L 34 - 123 U/L [facility] ALT [Catalytic activity/Vol] 20 U/L 7 - 38 U/L [facility] Anion gap [Moles/Vol] 17 mmol/L 9 - 18 mmol/L [facility] AST [Catalytic activity/Vol] 34 U/L 13 - 35 U/L [facility] Bilirubin [Mass/Vol] 0.3 mg/dL 0.2 - 1.3 mg/dL [facility] Calcium [Mass/Vol] 9.9 mg/dL 8.5 - 10. 2 mg/dL [facility] Chloride [Moles/Vol] 102 mmol/L 97 - 105 mmol/L [facility] CO2 [Moles/Vol] 21 mmol/L Low 22 - 30 mmol/L [facility] Creatinine [Mass/Vol] 0.84 mg/dL 0.58 - 0.96 mg/dL [facility] Estimated Glomerular Filtration Rate 80 mL/min/1.73m >=60 mL/min/1.73m [facility] Glucose [Mass/Vol] 112 mg/dL High 74 - 99 mg/dL [facility] Potassium [Moles/Vol] 5.0 mmol/L 3.7 - 5.1 mmol/L [facility] Protein [Mass/Vol] 7.2 g/dL 6.3 - 8.0 g/dL [facility] Sodium [Moles/Vol] 140 mmol/L 136 - 144 mmol/L [facility] Urea nitrogen [Mass/Vol] 11 mg/dL 7 - 21 mg/dL [facility] FOLATE SERUMon 12-06-2022 Folate [Mass/Vol] 11.4 ng/mL >4.7 ng/mL [facility] HIV 1+2 Ab IA Qlon 3 HIV 1 and 2 Ab IA.rapid Nom [facility] HIV 1+2 Ab+HIV1 p24 Ag IA Ql Non-Reactive Nonreactive [facility] HIV immunoassay testing algorithm interpretation (S/P/Bld) [Interp] [facility] VITAMIN B12 BLOODon 12-07-19 23 Cobalamin (Vitamin B12) [Mass/Vol] 478 pg/mL 232 - 1,245 pg/mL [facility] CBC W Auto Differential pane l (Bld)on 12-05-2022 Basophils (Bld) [#/Vol] 0.04 10*3/uL <0.11 k/uL [facility] Basophils/100 WBC (Bld) 0.5 % [facility] Differential cell count method Nom (Bld) Auto [facility] Eosinophils (Bld) [#/Vol] 0.03 10*3/uL <0.46 k/uL [facility] Eosinophils/100 WBC (Bld) 0.4 % [facility] Erythrocyte distribution width (RBC) [Ratio] 13.6 % 11.5 - 15.0 % [facility] Hematocrit (Bld) [Volume fraction] 43.0 % 36.0 - 46.0 % [facility] Hemoglobin (Bld) [Mass/Vol] 13.2 g/dL 11.5 - 15.5 g/dL [facility] Immature granulocytes (Bld) [#/Vol] 0.05 10*3/uL <0.10 k/uL [facility] Immature granulocytes/100 WBC (Bld) 0.7 % [facility] Lymphocytes (Bld) [#/Vol] 2.77 10*3/uL 1.00 - 4.00 k/uL [facility] Lymphocytes/100 WBC (Bld) 37.1 % [facility] MCH (RBC) [Entitic mass] 28.0 pg 26.0 - 34.0 pg [facility] MCHC (RBC) [Mass/Vol] 30.7 g/dL 30.5 - 36.0 g/dL [facility] MCV (RBC) [Entitic vol] 91.3 fL 80.0 - 100.0 fL [facility] Monocytes (Bld) [#/Vol] 0.31 10*3/uL <0.87 k/uL [facility] Monocytes/100 WBC (Bld) 4.2 % [facility] Neutrophils (Bld) [#/Vol] 4.26 10*3/uL 1.45 - 7.50 k/uL [facility] Neutrophils/100 WBC (Bld) 57.1 % [facility] Nucleated RBC (Bld) [#/Vol] <0.01 k/uL [facility] Nucleated RBC/100 WBC (Bld) [Ratio] 0.0 /100 WBC [facility] Platelet mean volume (Bld) [Entitic vol] 10.2 fL 9.0 - 12.7 fL [facility] Platelets (Bld) [#/Vol] 208 10*3/uL 150 - 400 k/uL [facility] RBC (Bld) [#/Vol] 4.71 10*6/uL 3.90 - 5.2 0 m/uL [facility] WBC (Bld) [#/Vol] 7.46 10*3/uL 3.70 - 11. 00 k/uL [facility] XR FOOT GENERAL 3V AP/LAT/OB L RIGHTon 10-15-2022 [facility] JESUS SCREENINGon 06-06-2022 [facility] XR Finger - right AP and Lat eral and obliqueon 05-30-2022 IMPRESSION: No acute radiographic abnormalities seen in the fourth digit. Audit Director: PSCB Transcribe Date/Time: May 30 2022 5:11P Dictated by : MORGAN CASTILLO MD This examination was interpreted and the report reviewed and electronically signed by: MORGAN CASTILLO MD on May 30 2022 5:13PM [facility] DIVISION OF RADIOLOGY * * *Final [...] soft tissue swelling. DIVISION OF RADIOLOGY Provider, [facility] - 05/30/2022 * * *Final Report* * [...] radiographic abnormalities seen in the fourth digit. Audit Director: [facility] Transcribe Date/Time: May 30 2022 5:11P Dictated by : MORGAN CASTILLO MD This examination was interpreted and the report reviewed and electronically signed by: MORGAN CASTILLO MD on May 30 2022 5:13PM EST [facility] XR Finger - right AP and Lat eral and obliqueOrdered By: Ccf Provider on 05-30-2022 [facility] XR Finger - right AP and Lat eral and obliqueon 05-29-2022 Radiology Study observation (narrative) [facility] XR FOOT GENERAL 3V AP/LAT/OB L LEFTon 01-17-2022 [facility] XR FOOT GENERAL 3V AP/LAT/OB L BILATERALon 08-09-2021 [facility] XR CHEST 2V FRONTAL/LATon [facility] XR Chest PA and Lateralon IMPRESSION: No acute radiographic abnormality. Audit Director: [facility] Transcribe Date/Time: Aug 05 2021 9:33A Dictated by : CHANTELL LIZ MD This examination was interpreted and the report reviewed and electronically signed by: CHANTELL LIZ MD on Aug 05 2021 9:34AM EST ZZZ_DO_NOT _USE_DIVIS ION OF RADIOLOGY * * *Final [...] spine. ZZZ_DO_NOT _USE_DIVIS ION OF RADIOLOGY Provider, [facility] - 08/05/2021 * * *Final Report* [...] spine. IMPRESSION IMPRESSION: No acute radiographic abnormality. Audit Director: MEERA Transcribe Date/Time: Aug 05 2021 9:33A Dictated by : CHANTELL LIZ MD This examination was interpreted and the report reviewed and electronically signed by: CHANTELL LIZ MD on Aug 05 2021 9:34AM [facility] Radiology Study observation (narrative) [facility] XR Chest PA and LateralOrder ed By: Ccf Provider on 08-05-2021 [facility] XR Foot - right AP and Later al and obliqueon 02-24-2020 IMPRESSION: Healing fracture of the second proximal phalanx. Audit Director: MEERA Transcribe Date/Time: Feb 24 2020 4:46P Dictated by : CHANTELL LIZ MD This examination was interpreted and the report reviewed and electronically signed by: CHANTELL LIZ MD on Feb 24 2020 5:00PM [facility] DIVISION OF RADIOLOGY * * *Final [...] Plantar calcaneal enthesophyte. DIVISION OF RADIOLOGY Provider, Arturo Peoples - 02/24/2020 * * *Final Report* * [...] Healing fracture of the second proximal phalanx. Audit Director: PSCB Transcribe Date/Time: Feb 24 2020 4:46P Dictated by : CHANTELL LIZ MD This examination was interpreted and the report reviewed and electronically signed by: CHANTELL LIZ MD on Feb 24 2020 5:00PM EST [facility] Radiology Study observation (narrative) [facility] XR Foot - right AP and Later al and obliqueOrdered By: Ccf Provider on 02-24-2020 [facility] Vital Signs Date Time Vital Sign Value Performing Clinician Facility 09-09-2024 14:44-0400 Diastolic blood pressure 62 mm[Hg] Santhosh Holden MD Work Phone: [facility] 09-09-2024 14:44-0400 Heart rate 74 /min Santhosh Holden MD Work Phone: [facility] 09-09-2024 14:44-0400 SaO2% (BldA) [Mass fraction] 96 % Santhosh Holden MD Work Phone: [facility] 09-09-2024 14:44-0400 Systolic blood pressure 102 mm[Hg] Santhosh Holden MD Work Phone: [facility] 08-29-2024 12:07-0400 Body temperature 98.3 [degF] Dr. Santhosh Holden MD Work Phone: 2(471)[phone] [place] [address] 08-29-2024 12:07-0400 Diastolic blood pressure 85 mm[Hg] Dr. Santhosh Holden MD Work Phone: [facility] 08-29-2024 12:07-0400 Heart rate 73 /min Dr. Santhosh Holden MD Work Phone: 5(531)712-128164 [place] [address] 08-29-2024 12:07-0400 Respiratory rate 16 /min Dr. Santhosh Holden MD Work Phone: 1(366)070-416104 [place] [address] 08-29-2024 12:07-0400 SaO2% (BldA) [Mass fraction] 100 % Dr. Santhosh Holden MD Work Phone: 5(493)[phone] [place] [address] 08-29-2024 12:07-0400 Systolic blood pressure 134 mm[Hg] Dr. Santhosh Holden MD Work Phone: 7(131)[phone] [place] [address] 08-29-2024 10:00-0400 Body mass index (BMI) [Ratio] 25.2 kg/m2 Dr. Santhosh Holden MD Work Phone: 2(084)[phone] [place] [address] 08-29-2024 10:00-0400 Body weight 75.[address] Santhosh Holden MD Work Phone: 5(153)[phone] [place] [address] 08-29-2024 09:19-0400 Body height 172.[address] Santhosh Holden MD Work Phone: [facility] 06-22-2024 12:34-0400 Body height 170.2 cm Jovanna Prince MD Work Phone: [facility] 06-22-2024 12:34-0400 Body mass index (BMI) [Ratio] 28.26 kg/m2 Jovanna Prince MD Work Phone: [facility] 06-22-2024 12:34-0400 Body weight 81.85 kg Jovanna Prince MD Work Phone: [facility] 06-22-2024 12:34-0400 Diastolic blood pressure 82 mm[Hg] Jovanna Prince MD Work Phone: [facility] 06-22-2024 12:34-0400 Heart rate 65 /min Jovanna Prince MD Work Phone: [facility] 06-22-2024 12:34-0400 SaO2% (BldA) [Mass fraction] 98 % Jovanna Prince MD Work Phone: [facility] 06-22-2024 12:34-0400 Systolic blood pressure 128 mm[Hg] Jovanna Prince MD Work Phone: [facility] 05-20-2024 14:02-0500 Body mass index (BMI) [Ratio] 28.19 kg/m2 Santhosh Holden MD Work Phone: [facility] 05-20-2024 14:02-0500 Body weight 81.65 kg Santhosh Holden MD Work Phone: [facility] 05-20-2024 14:02-0500 Diastolic blood pressure 62 mm[Hg] Santhosh Holden MD Work Phone: [facility] 05-20-2024 14:02-0500 Heart rate 65 /min Santhosh Holden MD Work Phone: [facility] 05-20-2024 14:02-0500 SaO2% (BldA) [Mass fraction] 97 % Santhosh Holden MD Work Phone: [facility] 05-20-2024 14:02-0500 Systolic blood pressure 120 mm[Hg] Santhosh Holden MD Work Phone: [facility] 01-08-2024 11:10-0400 Body height 170.2 cm Jovanna Prince MD Work Phone: [facility] 01-08-2024 11:10-0400 Body mass index (BMI) [Ratio] 31.77 kg/m2 Jovanna Prince MD Work Phone: [facility] 01-08-2024 11:10-0400 Body weight 92 kg Jovanna Prince MD Work Phone: [facility] 01-08-2024 11:10-0400 Diastolic blood pressure 77 mm[Hg] Jovanna Prince MD Work Phone: [facility] 01-08-2024 11:10-0400 Heart rate 74 /min Jovanna Prince MD Work Phone: [facility] 01-08-2024 11:10-0400 Systolic blood pressure 122 mm[Hg] Jovanna Prince MD Work Phone: [facility] 11-11-2023 10:05-0400 Body mass index (BMI) [Ratio] 33.36 kg/m2 Saumya Hashelli DIRECTOR HR COMMUNICATIONS.ACQUISITION ASSOCIATE Work Phone: [facility] 11-11-2023 10:05-0400 Body weight 96.62 kg Saumya Vargas DIRECTOR HR COMMUNICATIONS.ACQUISITION ASSOCIATE Work Phone: [facility] 11-11-2023 10:05-0400 Diastolic blood pressure 72 mm[Hg] Saumya Haagen DIRECTOR HR COMMUNICATIONS.ACQUISITION ASSOCIATE Work Phone: [facility] 11-11-2023 10:05-0400 Heart rate 66 /min Saumya Haagen DIRECTOR HR COMMUNICATIONS.ACQUISITION ASSOCIATE Work Phone: [facility] 11-11-2023 10:05-0400 Respiratory rate 16 /min Saumya Haagen DIRECTOR HR COMMUNICATIONS.ACQUISITION ASSOCIATE Work Phone: [facility] 11-11-2023 10:05-0400 SaO2% (BldA) [Mass fraction] 96 % Saumya Hashelli DIRECTOR HR COMMUNICATIONS.ACQUISITION ASSOCIATE Work Phone: [facility] 11-11-2023 10:05-0400 Systolic blood pressure 120 mm[Hg] Saumya Hashelli DIRECTOR HR COMMUNICATIONS.ACQUISITION ASSOCIATE Work Phone: [facility] 07-24-2023 10:15-0400 Body height 170.2 cm Santhosh Holden MD Work Phone: [facility] 07-24-2023 10:15-0400 Body mass index (BMI) [Ratio] 38.69 kg/m2 Santhosh Holden MD Work Phone: [facility] 07-24-2023 10:15-0400 Body weight 112.04 kg Santhosh Holden MD Work Phone: [facility] 07-24-2023 10:15-0400 Diastolic blood pressure 72 mm[Hg] Santhosh Holden MD Work Phone: [facility] 07-24-2023 10:15-0400 Heart rate 64 /min Santhosh Holden MD Work Phone: [facility] 07-24-2023 10:15-0400 SaO2% (BldA) [Mass fraction] 95 % Santhosh Holden MD Work Phone: [facility] 07-24-2023 10:15-0400 Systolic blood pressure 130 mm[Hg] Santhosh Holden MD Work Phone: [facility] 07-03-2023 15:10-0400 Body height 170.2 cm Jovanna Prince MD Work Phone: [facility] 07-03-2023 15:10-0400 Body mass index (BMI) [Ratio] 38.88 kg/m2 Jovanna Prince MD Work Phone: [facility] 07-03-2023 15:10-0400 Body weight 112.6 kg Jovanna Prince MD Work Phone: [facility] 07-03-2023 15:10-0400 Diastolic blood pressure 73 mm[Hg] Jovanna Prince MD Work Phone: [facility] 07-03-2023 15:10-0400 Heart rate 60 /min Jovanna Prince MD Work Phone: [facility] 07-03-2023 15:10-0400 SaO2% (BldA) [Mass fraction] 97 % Jovanna Prince MD Work Phone: [facility] 07-03-2023 15:10-0400 Systolic blood pressure 123 mm[Hg] Jovanna Prince MD Work Phone: [facility] 06-02-2023 15:07-0400 Body temperature 97 [degF] Rebecca Mireles APRN.CNP Work Phone: [facility] 06-02-2023 15:07-0400 Body weight 113.4 kg Rebecca Mireles APRN.ACQUISITION ASSOCIATE Work Phone: [facility] 06-02-2023 15:07-0400 Diastolic blood pressure 70 mm[Hg] Rebecca Mireles APRN.ACQUISITION ASSOCIATE Work Phone: [facility] 06-02-2023 15:07-0400 Heart rate 77 /min Rebecca Mireles APRN.ACQUISITION ASSOCIATE Work Phone: [facility] 06-02-2023 15:07-0400 Respiratory rate 20 /min Rebecca Mireles APRN.ACQUISITION ASSOCIATE Work Phone: [facility] 06-02-2023 15:07-0400 SaO2% (BldA) [Mass fraction] 95 % Rebecca Mireles APRN.ACQUISITION ASSOCIATE Work Phone: [facility] 06-02-2023 15:07-0400 Systolic blood pressure 110 mm[Hg] Rebecca Mireles APRN.ACQUISITION ASSOCIATE Work Phone: [facility] 05-08-2023 14:11-0500 Body weight 112.5 kg Radha Andersen APRN.ACQUISITION ASSOCIATE Work Phone: [facility] 05-08-2023 14:11-0500 Diastolic blood pressure 80 mm[Hg] Radha Andersen APRN.ACQUISITION ASSOCIATE Work Phone: [facility] 05-08-2023 14:11-0500 Heart rate 70 /min Radha Andersen APRN.ACQUISITION ASSOCIATE Work Phone: [facility] 05-08-2023 14:11-0500 SaO2% (BldA) [Mass fraction] 99 % Radha Andersen APRN.ACQUISITION ASSOCIATE Work Phone: [facility] 05-08-2023 14:11-0500 Systolic blood pressure 122 mm[Hg] Radha Andersen APRN.ACQUISITION ASSOCIATE Work Phone: [facility] 02-06-2023 12:53-0500 Body height 170.2 cm Farhat Gallardo DO Work Phone: [facility] 02-06-2023 12:53-0500 Body weight 117 kg Farhat Gallardo DO Work Phone: [facility] 02-06-2023 12:53-0500 Diastolic blood pressure 70 mm[Hg] Farhat Gallardo DO Work Phone: [facility] 02-06-2023 12:53-0500 Heart rate 68 /min Farhat Gallardo DO Work Phone: [facility] 02-06-2023 12:53-0500 SaO2% (BldA) [Mass fraction] 96 % Farhat Gallardo DO Work Phone: [facility] 02-06-2023 12:53-0500 Systolic blood pressure 118 mm[Hg] Farhat Gallardo DO Work Phone: [facility] 12-11-2022 13:25-0400 Body height 172.7 cm Sade Joey PA-C Work Phone: [facility] 12-11-2022 13:25-0400 Body temperature 97 [degF] Sade Joey PA-C Work Phone: [facility] 12-11-2022 13:25-0400 Body weight 120.11 kg Sade Joey PA-C Work Phone: [facility] 12-11-2022 13:25-0400 Diastolic blood pressure 76 mm[Hg] Sade Joey PA-C Work Phone: [facility] 12-11-2022 13:25-0400 Heart rate 75 /min Sade Joey PA-C Work Phone: [facility] 12-11-2022 13:25-0400 SaO2% (BldA) [Mass fraction] 95 % Sade [place] PA-C Work Phone: [facility] 12-11-2022 13:25-0400 Systolic blood pressure 138 mm[Hg] Sade Joey PA-C Work Phone: [facility] 12-05-2022 15:08-0400 Body weight 120.2 kg Santhosh Holden MD Work Phone: [facility] 12-05-2022 15:08-0400 Diastolic blood pressure 72 mm[Hg] Santhosh Holden MD Work Phone: [facility] 12-05-2022 15:08-0400 Heart rate 61 /min Santhosh Holden MD Work Phone: [facility] 12-05-2022 15:08-0400 SaO2% (BldA) [Mass fraction] 93 % Santhosh Holden MD Work Phone: [facility] 12-05-2022 15:08-0400 Systolic blood pressure 138 mm[Hg] Santhosh Holden MD Work Phone: [facility] 11-07-2022 11:06-0400 Body height 172.1 cm Jovanna Prince MD Work Phone: [facility] 11-07-2022 11:06-0400 Body weight 118.39 kg Jovanna Prince MD Work Phone: [facility] 11-07-2022 11:06-0400 Diastolic blood pressure 75 mm[Hg] Jovanna Prince MD Work Phone: [facility] 11-07-2022 11:06-0400 Heart rate 62 /min Jovanna Prince MD Work Phone: [facility] 11-07-2022 11:06-0400 SaO2% (BldA) [Mass fraction] 97 % Jovanna Prince MD Work Phone: [facility] 11-07-2022 11:06-0400 Systolic blood pressure 151 mm[Hg] Jovanna Prince MD Work Phone: [facility] 10-29-2022 15:27-0400 Body height 172.72 cm [facility] 10-29-2022 15:27-0400 Body mass index (BMI) [Ratio] 40.3 kg/m2 [facility] 10-29-2022 15:27-0400 Body temperature 97.8 [degF] [facility] 10-29-2022 15:27-0400 Body weight 120.38 kg [facility] 10-29-2022 15:27-0400 Diastolic blood pressure 98 mm[Hg] [facility] 10-29-2022 15:27-0400 Heart rate 98 /min [facility] 10-29-2022 15:27-0400 Respiratory rate 14 /min [facility] 10-29-2022 15:27-0400 SaO2% (BldA) [Mass fraction] 95 % [facility] 10-29-2022 15:27-0400 Systolic blood pressure 158 mm[Hg] [facility] 10-29-2022 14:52-0400 Body temperature 97.3 [degF] Teresa Praisler-Wood DIRECTOR HR COMMUNICATIONS.ACQUISITION ASSOCIATE Work Phone: [facility] 10-29-2022 14:52-0400 Body weight 120.47 kg Teresa Praisler-Wood DIRECTOR HR COMMUNICATIONS.ACQUISITION ASSOCIATE Work Phone: [facility] 10-29-2022 14:52-0400 Diastolic blood pressure 80 mm[Hg] Teresa Praisler-Wood DIRECTOR HR COMMUNICATIONS.ACQUISITION ASSOCIATE Work Phone: [facility] 10-29-2022 14:52-0400 Heart rate 62 /min Teresa Praisler-Wood DIRECTOR HR COMMUNICATIONS.ACQUISITION ASSOCIATE Work Phone: [facility] 10-29-2022 14:52-0400 Respiratory rate 18 /min Teresa Praisler-Wood DIRECTOR HR COMMUNICATIONS.ACQUISITION ASSOCIATE Work Phone: [facility] 10-29-2022 14:52-0400 SaO2% (BldA) [Mass fraction] 97 % Teresa Praisler-Wood DIRECTOR HR COMMUNICATIONS.ACQUISITION ASSOCIATE Work Phone: [facility] 10-29-2022 14:52-0400 Systolic blood pressure 146 mm[Hg] Teresa Praisler-Wood DIRECTOR HR COMMUNICATIONS.ACQUISITION ASSOCIATE Work Phone: [facility] 05-29-2022 09:46-0500 Body weight 117.94 kg Santhosh Holden MD Work Phone: [facility] 05-29-2022 09:46-0500 Diastolic blood pressure 72 mm[Hg] Santhosh Holden MD Work Phone: [facility] 05-29-2022 09:46-0500 Heart rate 71 /min Santhosh Holden MD Work Phone: [facility] 05-29-2022 09:46-0500 SaO2% (BldA) [Mass fraction] 95 % Santhosh Holden MD Work Phone: [facility] 05-29-2022 09:46-0500 Systolic blood pressure 132 mm[Hg] Santhosh Holden MD Work Phone: [facility] 10-07-2021 13:34-0400 Body height 172.1 cm Saumya Haagen DIRECTOR HR COMMUNICATIONS.ACQUISITION ASSOCIATE Work Phone: [facility] 10-07-2021 13:34-0400 Body temperature 96.21 [degF] Saumya Haagen DIRECTOR HR COMMUNICATIONS.ACQUISITION ASSOCIATE Work Phone: [facility] 10-07-2021 13:34-0400 Body weight 121.93 kg Saumya Haagen DIRECTOR HR COMMUNICATIONS.ACQUISITION ASSOCIATE Work Phone: [facility] 10-07-2021 13:34-0400 Diastolic blood pressure 84 mm[Hg] Saumya Haagen DIRECTOR HR COMMUNICATIONS.ACQUISITION ASSOCIATE Work Phone: [facility] 10-07-2021 13:34-0400 Heart rate 68 /min Saumya Haagen DIRECTOR HR COMMUNICATIONS.ACQUISITION ASSOCIATE Work Phone: [facility] 10-07-2021 13:34-0400 Respiratory rate 18 /min Saumya Haagen DIRECTOR HR COMMUNICATIONS.ACQUISITION ASSOCIATE Work Phone: [facility] 10-07-2021 13:34-0400 SaO2% (BldA) [Mass fraction] 95 % Saumya Haagen DIRECTOR HR COMMUNICATIONS.ACQUISITION ASSOCIATE Work Phone: [facility] 10-07-2021 13:34-0400 Systolic blood pressure 136 mm[Hg] Saumya Haagen DIRECTOR HR COMMUNICATIONS.ACQUISITION ASSOCIATE Work Phone: [facility] 08-05-2021 08:31-0400 Body temperature 97.59 [degF] Poonam Garrido PA-C Work Phone: [facility] 08-05-2021 08:31-0400 Body weight 121.38 kg Poonam Athy PA-C Work Phone: [facility] 08-05-2021 08:31-0400 Diastolic blood pressure 68 mm[Hg] Poonam Athy PA-C Work Phone: [facility] 08-05-2021 08:31-0400 Heart rate 72 /min Poonam Athy PA-C Work Phone: [facility] 08-05-2021 08:31-0400 Respiratory rate 18 /min Poonam Athy PA-C Work Phone: [facility] 08-05-2021 08:31-0400 SaO2% (BldA) [Mass fraction] 95 % Poonam Athy PA-C Work Phone: [facility] 08-05-2021 08:31-0400 Systolic blood pressure 122 mm[Hg] Poonam Athy PA-C Work Phone: [facility] Encounters Encounter Date Encounter Type Care Provider Facility Start: 09-09-2024 End: 09-09-2024 Patient encounter procedure Santhosh Holden MD Work Phone: [facility] [place] Comment on above: Altered mental statu s, unspecified altered mental status type (Primary Dx); Tenuous home situation; Multiple falls; Injury of head, subsequent encounter; Laceration of scalp, subsequent encounter; Dehydration; Type 2 diabetes mellitus with diabetic neuropathy, without long-term current use of insulin (HCC); Anorexia; Renal insufficiency; Fibromyalgia; Essential tremor; H/O gastric bypass; Coronary-myocardial bridge (HCC); Primary hypertension; Other hyperlipidemia; KRZYSZTOF (obstructive sleep apnea); 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; Liver fibrosis; Hypothyroidism, unspecified type Start: 09-02-2024 End: 09-02-2024 Emergency department patient visit CASANDRA FAJARDO [facility] Start: 08-29-2024 End: 08-29-2024 Emergency department patient visit Dr. Santhosh Holden MD Work Phone: -Emergency Department Work Phone: Start: 07-27-2024 End: 07-27-2024 Refill Santhosh Holden MD Work Phone: [facility] [place] Comment on above: Refill Request Start: 07-22-2024 End: 07-22-2024 Refill Santhosh Holden MD Work Phone: [facility] [place] Comment on above: Refill Request Start: 06-22-2024 End: 06-22-2024 ambulatory SANTHOSH HOLDEN Facility:[facility] Start: 06-22-2024 End: 06-22-2024 Patient encounter procedure Jovanna Prince MD Work Phone: Neurology Comment on above: Tremor (Primary Dx); Migraine without aura, intractable, with status migrainosus; Memory difficulty; Drug-induced parkinsonism (HCC) Start: 06-20-2024 End: 06-21-2024 Refill Santhosh Holden MD Work Phone: [facility] [place] Comment on above: Refill Request Start: 06-07-2024 End: 06-08-2024 Refill Santhosh Holden MD Work Phone: [facility] [place] Comment on above: Refill Request Start: 06-06-2024 End: 08-06-2024 Follow-up encounter Santhosh Holden MD Work Phone: [facility] [place] Start: 06-03-2024 End: 06-03-2024 Patient encounter procedure Dru Sahu Work Phone: Podiatry Comment on above: Closed nondisplaced fracture of phalanx of right great toe, unspecified phalanx, initial encounter (Primary Dx); Ulcer of toe of left foot, limited to breakdown of skin (HCC); Porokeratosis; Hammertoe of right foot Start: 06-03-2024 End: 06-03-2024 Subsequent hospital visit by physician Akira [facility] [place] Work Phone: Radiology Comment on above: Closed nondisplaced fracture of phalanx of right great toe, unspecified phalanx, initial encounter [S92.404A] Renal insufficiency [N28.9] Start: 06-03-2024 End: 06-03-2024 ambulatory SANTHOSH HOLDEN Facility:[facility] Start: 06-02-2024 End: 06-02-2024 ambulatory SANTHOSH HOLDEN Facility:[facility] Start: 06-02-2024 End: 06-02-2024 Patient encounter procedure Rosdale Ortiz OD Work Phone: Ophthalmology Comment on above: Type 2 diabetes preston itus without retinopathy (HCC) (Primary Dx); Combined forms of age-related cataract of both eyes; Dry eye syndrome of bilateral lacrimal glands; Presbyopia Start: 05-26-2024 End: 05-26-2024 ambulatory Santhosh Holden MD Work Phone: [facility] [place] Comment on above: Hearing Start: 05-26-2024 End: 07-26-2024 Follow-up encounter Dru Collado MD Work Phone: [facility] [place] Start: 05-23-2024 End: 07-23-2024 Follow-up encounter Santhosh Holden MD Work Phone: [facility] [place] Start: 05-23-2024 End: 05-25-2024 Telephone encounter Santhosh Holden MD Work Phone: [facility] [place] Comment on above: Results Start: 05-20-2024 End: 05-20-2024 ambulatory SANTHOSH HOLDEN Facility:[facility] Start: 05-20-2024 End: 05-20-2024 Patient encounter procedure Santhosh Holden MD Work Phone: [facility] [place] Comment on above: Chronic nonintractab le [...] 05-17-2024 Refill Santhosh Holden MD Work Phone: [facility] Comment on above: Refill Request Start: 05-13-2024 End: 05-16-2024 Refill Saumya Sam ARNOLD Work Phone: [facility] Comment on above: Refill Request Closed displaced [...] Subsequent hospital visit by physician Akira [facility] [place] Work Phone: Radiology Comment on above: Cellulitis and absce ss of toe of right foot [L03.031, L02.611] Start: 05-05-2024 End: 05-05-2024 ambulatory SANTHOSH HOLDEN Facility:[facility] Start: 05-05-2024 End: 05-06-2024 Patient encounter procedure Dru Sahu Work Phone: Podiatry Comment on above: Cellulitis and absce ss of toe of right foot (Primary Dx); Open wound of toe, initial encounter Refill Request Start: 04-25-2024 End: 04-25-2024 Refill Santhosh Holden MD Work Phone: [facility] [place] Comment on above: Refill Request Start: 04-01-2024 End: 04-04-2024 ambulatory Dru Sahu Work Phone: Podiatry Comment on above: wound culture Start: 04-01-2024 End: 04-04-2024 E-mail encounter from caregiver Dru Sahu Work Phone: Podiatry Start: 03-29-2024 End: 03-29-2024 ambulatory SANTHOSH HOLDEN Facility:[facility] Start: 03-29-2024 End: 03-29-2024 Patient encounter procedure Dru Sahu Work Phone: Podiatry Comment on above: Cellulitis and absce ss of toe of right foot (Primary Dx) Start: 03-16-2024 End: 03-21-2024 ambulatory Santhosh Holden MD Work Phone: Internal Medicine [place] [id number] Start: 02-17-2024 End: 02-19-2024 Refill Santhosh Holden MD Work Phone: [facility] [place] Comment on above: Refill Request Start: 02-16-2024 End: 02-17-2024 Refill Farhat Gallardo DO Work Phone: Cardiology Comment on above: Refill Request Start: 01-29-2024 End: 01-29-2024 Refill Jovanna Prince MD Work Phone: Neurology Comment on above: Refill Request Start: 01-19-2024 End: 01-19-2024 Refill Santhosh Holden MD Work Phone: [facility] [place] Comment on above: Refill Request Start: 01-08-2024 End: 01-08-2024 ambulatory SANTHOSH HOLDEN Facility:[facility] Start: 01-08-2024 End: 01-08-2024 Office outpatient visit 15 minutes Jovanna Prince MD Work Phone: Neurology Comment on above: Tremor (Primary Dx); Migraine without aura, intractable, with status migrainosus Start: 01-05-2024 End: 01-06-2024 Refill Santhosh Holden MD Work Phone: [facility] [place] Comment on above: Refill Request Start: 12-25-2023 End: 12-25-2023 ambulatory [facility] Facility:[facility] Start: 12-25-2023 End: 12-25-2023 Patient encounter procedure Jose Mir ODILAI Work Phone: Audiology Comment on above: Tinnitus, right ear (Primary Dx); Bilateral hearing loss, unspecified hearing loss type; Other specified hearing loss, unspecified ear; Dizziness and giddiness; Sensorineural hearing loss, bilateral Sensorineural hearin g loss (SNHL) of both ears (Primary Dx) Start: 12-18-2023 End: 12-18-2023 Refill Nanette A Suppan DIRECTOR HR COMMUNICATIONS.ACQUISITION ASSOCIATE Work Phone: [facility] [place] Comment on above: Refill Request Start: 12-01-2023 End: 12-01-2023 Refill Jovanna Prince MD Work Phone: Neurology Comment on above: Refill Request Start: 11-20-2023 End: 11-20-2023 Refill Nanette A Suppan DIRECTOR HR COMMUNICATIONS.ACQUISITION ASSOCIATE Work Phone: [facility] [place] Comment on above: Refill Request Start: 11-16-2023 End: 11-17-2023 Refill [facility] Hold[facility] MD [facility] Comment on above: Refill Request Start: 11-11-2023 End: 11-11-2023 [facility] Facility:[facility] Start: 11-11-2023 End: 11-11-2023 Office outpatient visit 25 minutes Saumya Vargas APRN.ACQUISITION ASSOCIATE Work Phone: [facility] [place] Comment on above: Type 2 diabetes preston itus with diabetic neuropathy, without long-term current use of insulin (HCC) (Primary Dx); Fibromyalgia; Other hyperlipidemia; KRZYSZTOF (obstructive sleep apnea); Essential tremor; Hypothyroidism, unspecified type; Powers's esophagus with dysplasia; Bipolar 1 disorder (HCC) Start: 11-11-2023 End: 11-11-2023 [facility] Facility:[facility] Start: 11-10-2023 End: 11-11-2023 ambulatory Santhosh Holden MD Work Phone: [facility] [place] Comment on above: Gabapentin 600 Refill Request Start: 10-16-2023 Refill Santhosh Holden MD Work Phone: [facility] [place] Comment on above: Refill Request Start: 09-23-2023 Orders Only Dru casillas MD Work Phone: [facility] [place] Comment on above: Other specified hear ing loss, unspecified ear (Primary Dx) Ear,nose and throat doc Start: 09-13-2023 End: 09-13-2023 Letter encounter Nory Villeda DO Work Phone: [facility] Start: 09-08-2023 ambulatory Santhosh Holden MD Work Phone: [facility] [place] Comment on above: Zertex Start: 09-06-2023 ambulatory Santhosh Holden MD Work Phone: [facility] [place] Comment on above: ENT Start: 08-28-2023 ambulatory Santhosh Holden MD Work Phone: [facility] [place] Comment on above: Ozempic Diabetic supplys Start: 08-24-2023 Refill Santhosh Holden MD Work Phone: [facility] [place] Comment on above: Refill Request Start: 08-17-2023 Refill Nanette ho APRNChristyCONVEYOR OPERATOR Work Phone: [facility] [place] Comment on above: Refill Request Start: 08-15-2023 ambulatory Santhosh Holden MD Work Phone: [facility] [place] Comment on above: Sleep apnea test Start: 08-05-2023 Refill Santhosh Holden MD Work Phone: [facility] [place] Comment on above: Refill Request Start: 08-04-2023 Refill Santhosh Holden MD Work Phone: [facility] [place] Comment on above: Refill Request Start: 08-03-2023 ambulatory Santhosh Holden MD Work Phone: [facility] [place] Comment on above: Medication Question (Not Renewal) Start: 07-30-2023 ambulatory Jovanna Prince MD Work Phone: Neurology Comment on above: Non-Urgent Medical Q uestion Start: 07-24-2023 End: 07-24-2023 ambulatory SANTHOSH HOLDEN Facility:[facility] Start: 07-24-2023 End: 07-24-2023 Patient encounter procedure Santhosh Holden MD Work Phone: Family [facility] [place] Comment on above: KRZYSZTOF (obstructive sle ep apnea) (Primary Dx) Start: 07-20-2023 ambulatory Santhosh Holden MD Work Phone: Family [facility] [place] Comment on above: Non-Urgent Medical Q uestion Start: 07-15-2023 ambulatory Santhosh Holden MD Work Phone: [facility] [place] Comment on above: Non-Urgent Medical Q uestion Start: 07-13-2023 ambulatory Santhosh Holden MD Work Phone: [facility] [place] Comment on above: Medication Question (Not Renewal) Start: 07-03-2023 End: 07-03-2023 ambulatory SANTHOSH HOLDEN Facility:[facility] Start: 07-03-2023 End: 07-03-2023 Patient encounter procedure Jovanna Prince MD Work Phone: Neurology Comment on above: Tremor (Primary Dx); Migraine without aura, intractable, with status migrainosus Start: 06-07-2023 Letter encounter [employer] Work Phone: Start: 06-04-2023 ambulatory Santhosh Holden MD Work Phone: [facility] [place] Comment on above: Non-Urgent Medical Q uestion Start: 06-02-2023 End: 06-02-2023 Subsequent hospital visit by physician Akira [facility] [place] Work Phone: Radiology Comment on above: [...] Phone: [facility] [place] Comment on above: Non-Urgent Medical Q uestion Start: 05-25-2023 ambulatory Santhosh Holden MD Work Phone: [facility] [place] Comment on above: Non-Urgent Medical Q uestion Refill Request Start: 05-22-2023 Telephone encounter Santhosh Holden MD Work Phone: [facility] [place] Comment on above: requesting medicatio n on list; Appointment Refill Request Start: 05-19-2023 Refill Santhosh Holden MD Work Phone: [facility] [place] Comment on above: Refill Request Start: 05-08-2023 End: 05-08-2023 Patient encounter procedure Radha Ganesh ARNOLD Work Phone: Cardiology Comment on above: Mild CAD (Primary Dx ); SOB (shortness of breath); Primary hypertension; Other hyperlipidemia Start: 05-04-2023 ambulatory Santhosh Holden MD Work Phone: [facility] Comment on above: Medication Question (Not Renewal) Start: 04-24-2023 ambulatory Santhosh Holden MD Work Phone: [facility] Comment on above: Non-Urgent Medical Q uestion Start: 03-12-2023 End: 03-12-2023 ambulatory SADE Facility:[facility] Start: 02-18-2023 Refill J Luis Wong on PA-C Work Phone: [facility] Comment on above: Refill Request Start: 02-06-2023 End: 02-06-2023 Patient encounter procedure Farhat Gallardo DO Work Phone: Cardiology Comment on above: Coronary-myocardial bridge (Primary Dx); Mild CAD; Primary hypertension; Mixed hyperlipidemia; [id number] (obstructive sleep apnea) Start: 02-06-2023 End: 02-06-2023 ambulatory FARHAT GALLARDO Facility:[facility] Start: 02-04-2023 Refill Santhosh Holden MD Work Phone: [facility] Comment on above: Refill Request Start: 01-18-2023 Refill Santhosh Holden MD Work Phone: [facility] Comment on above: Refill Request Start: 12-11-2022 End: 12-11-2022 Patient encounter procedure Sade Alston PA-C Work Phone: General Surgery Comment on above: 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; History of colonic polyps Start: 12-09-2022 ambulatory Santhosh Holden MD Work Phone: [facility] Comment on above: Medication Question (Not Renewal) Start: 12-05-2022 End: 12-05-2022 Patient encounter procedure Santhosh Holden MD Work Phone: [facility] Comment on above: Tremor (Primary Dx); Encounter [...] of colonic polyps; Coronary artery disease involving salt river heart without angina pectoris, unspecified vessel or [...] Telephone encounter Santhosh Holden MD Work Phone: [address] [place] [address] Comment on above: Orders Start: 11-25-2022 Refill Santhosh Holden MD Work Phone: [facility] Comment on above: Refill Request Start: 11-19-2022 End: 11-19-2022 Patient encounter procedure Dru Sahu Work Phone: Podiatry Comment on above: Hammertoe of right f oot (Primary Dx); Other diabetic neurological complication associated with type 2 diabetes mellitus (HCC) Start: 11-19-2022 Telephone encounter Santhosh Holden MD Work Phone: [facility] Comment on above: Medication Problem Start: 11-18-2022 Refill Santhosh Holden MD Work Phone: [facility] Comment on above: Refill Request Start: 11-07-2022 End: 11-07-2022 Patient encounter procedure Jovanna Prince MD Work Phone: Neurology Comment on above: Tremor (Primary Dx); Migraine without aura, intractable, with status migrainosus Start: 11-04-2022 Refill Santhosh Holden MD Work Phone: [facility] Comment on above: Refill Request Start: 10-29-2022 End: 10-29-2022 Emergency department patient visit [facility] Work Phone: Start: 10-29-2022 End: 10-29-2022 Patient encounter procedure Teresa Araiza APRN.CNP Work Phone: [facility] Comment on above: Loss of balance (Rosie lemon Dx); Multiple falls Start: 10-27-2022 Refill Santhosh Holden MD Work Phone: [facility] Comment on above: Refill Request Start: 10-22-2022 ambulatory Santhosh Holden MD Work Phone: [facility] Comment on above: Non-Urgent Medical Q uestion Start: 10-15-2022 End: 10-15-2022 Patient encounter procedure Dru Adelina Work Phone: Podiatry Comment on above: Closed displaced fra cture of phalanx of lesser toe of right foot, unspecified phalanx, initial encounter (Primary Dx); Hammertoe of right foot Start: 10-15-2022 End: 10-15-2022 Subsequent hospital visit by physician Akira [facility] Work Phone: Radiology Comment on above: Pain [R52] Start: 09-30-2022 Telephone encounter Santhosh Holden MD Work Phone: [facility] Comment on above: Insurance Authorizat ion (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 thyroid) Start: 09-25-2022 Refill Santhosh Holden MD Work Phone: [facility] Comment on above: Refill Request Pain (Primary Dx) Start: 09-18-2022 Refill Santhosh Holden MD Work Phone: [facility] [place] Comment on above: Refill Request Start: 09-16-2022 Refill Santhosh Holden MD Work Phone: [facility] [place] Comment on above: Refill Request Start: 09-08-2022 Letter encounter Nory Sanchez Work Phone: [facility] Start: 08-27-2022 Refill Santhosh Holden MD Work Phone: [facility] [place] Comment on above: Refill Request Start: 08-18-2022 ambulatory Jovanna Prince MD Work Phone: Neurology Comment on above: Medication Question (Not Renewal) Start: 08-04-2022 Refill Santhosh Holden MD Work Phone: [facility] [place] Comment on above: Refill Request Start: 07-29-2022 Refill Santhosh Holden MD Work Phone: [facility] Comment on above: Refill Request Start: 07-17-2022 Refill Santhosh Holden MD Work Phone: [facility] Comment on above: Refill Request Start: 06-23-2022 Refill J Luis yepez PA-C Work Phone: [facility] [place] Comment on above: Refill Request Start: 06-15-2022 [facility] Start: 06-13-2022 End: 06-13-2022 ambulatory Kaylene Zhu [facility] Comment on above: Abnormal posture (Pr imary Dx) Start: 06-06-2022 Documentation procedure Mammog michelle Coordinator [facility] Start: 06-06-2022 Letter encounter Mammography Coordinator [facility] Start: 06-06-2022 Telephone encounter Santhosh Holden MD Work Phone: [facility] Comment on above: Results Start: 06-06-2022 End: 06-06-2022 Subsequent hospital visit by physician Screen Mammo [facility] Comment on above: Screening breast exa mination [Z12.39] Start: 05-30-2022 End: 05-30-2022 Refill Santhosh Holden MD Work Phone: [facility] Comment on above: Refill Request Type 2 diabetes preston itus without retinopathy (HCC) (Primary Dx); Dry eye syndrome of bilateral lacrimal glands; Combined forms of age-related cataract of both eyes; Presbyopia Start: 05-29-2022 End: 05-29-2022 Subsequent hospital visit by physician Xr [facility] Work Phone: Radiology Comment on above: physical Start: 05-29-2022 End: 05-29-2022 Patient encounter procedure Santhosh Holden MD Work Phone: [facility] Comment on above: Primary hypertension (Primary Dx); [...] 05-23-2022 Refill [facility] MD [facility] Comment on above: Refill Request Start: 05-06-2022 Refill Santhosh Holden MD Work Phone: [facility] Comment on above: Refill Request Start: 04-28-2022 Refill Santhosh Holden MD Work Phone: [facility] Comment on above: Refill Request Start: 03-26-2022 Refill Santhosh Holden MD Work Phone: [facility] Comment on above: Refill Request Start: 03-17-2022 Letter encounter Norymargarita Redman O Work Phone: [facility] Start: 02-24-2022 End: 02-24-2022 Patient encounter procedure Dru Adelina Work Phone: Podiatry Comment on above: Hammertoe of right f oot (Primary Dx) Start: 02-04-2022 Refill [facility] Comment on above: Refill Request Start: 01-31-2022 Refill Saumya Vargas APRN.CNP Work Phone: [facility] Comment on above: Refill Request Start: 01-30-2022 Refill Santhosh Holden MD Work Phone: [facility] Comment on above: Refill Request Start: 01-24-2022 End: 01-24-2022 Patient encounter procedure Dru Jeffriesjennifer Work Phone: Podiatry Comment on above: Post-operative state (Primary Dx); Hammertoe of right foot Start: 01-17-2022 End: 01-17-2022 Patient encounter procedure Dru Jeffriespolo Work Phone: Podiatry Comment on above: Post-operative state (Primary Dx); Hammertoe of left foot Start: 01-17-2022 End: 01-17-2022 Subsequent hospital visit by physician Akira [facility] Work Phone: Radiology Comment on above: Hammer toe of left f oot [M20.42] Start: 01-10-2022 End: 01-10-2022 Patient encounter procedure Dru Adelina Work Phone: Podiatry Comment on above: Post-operative [...] 12-30-2021 Refill Santhosh Holden MD Work Phone: [facility] Comment on above: Refill Request Start: 12-18-2021 End: 12-18-2021 Subsequent hospital visit by physician Akira [facility] Work Phone: Radiology Comment on above: Other diabetic neuro logical complication associated with type 2 diabetes mellitus (HCC) [E11.49] Start: 12-17-2021 Refill Santhosh Holden MD Work Phone: [facility] Comment on above: Refill Request Start: 11-29-2021 Refill Santhosh Holden MD Work Phone: [facility] Comment on above: Refill Request Start: 11-26-2021 Refill Santhosh Holden MD Work Phone: [facility] Comment on above: Refill Request Start: 11-21-2021 Refill Santhosh Holden MD Work Phone: [facility] Comment on above: Refill Request Start: 10-31-2021 Refill Santhosh Holden MD Work Phone: [facility] Comment on above: Refill Request Start: 10-14-2021 Telephone encounter Saumya marques APRN.CNP Work Phone: [facility] Comment on above: Results Start: 10-07-2021 End: 10-07-2021 Office outpatient visit 25 minutes Saumya Graciashelli ARNOLD Work Phone: [facility] Comment on above: Type 2 diabetes preston itus without complication, unspecified whether moth exterminator insulin use (HCC) (Primary Dx); Primary hypertension; [...] 10-03-2021 Refill Santhosh Holden MD Work Phone: [facility] Comment on above: Refill Request Lab Orders (upcoming appt 10/07) Start: 09-30-2021 Refill Santhosh Holden MD Work Phone: [facility] Comment on above: Refill Request; Refi ll Request Start: 09-15-2021 Letter encounter Nory Ronal Sanchez Work Phone: [facility] Start: 08-29-2021 Refill Santhosh Holden (Historical) Work Phone: [facility] Comment on above: Refill Request Start: 08-12-2021 Telephone encounter Santhosh Holden MD Work Phone: [facility] Comment on above: Medication Question Start: 08-09-2021 End: 08-09-2021 Patient encounter procedure Dru Adelina Work Phone: Podiatry Comment on above: Ulcer of toe of left foot, limited to breakdown of skin (HCC) (Primary Dx); Other diabetic neurological complication associated with type 2 diabetes mellitus (HCC); Diminished pulses in lower extremity; Onychomycosis Start: 08-09-2021 End: 08-09-2021 Subsequent hospital visit by physician Akira [facility] Work Phone: Radiology Comment on above: Pain [R52] Start: 08-08-2021 Telephone encounter Teresa Pearson APRNChristyACQUISITION ASSOCIATE Work Phone: [facility] Comment on above: Results Start: 08-05-2021 End: 08-05-2021 Subsequent hospital visit by physician Xr [facility] Work Phone: Radiology Comment on above: Cough [R05.9] Start: 08-05-2021 End: 08-05-2021 Patient encounter procedure Poonam BASHIRC Work Phone: [facility] Comment on above: Sinobronchitis (Prim ilya Dx) Start: 08-02-2021 Telephone encounter Santhosh Holden (Historical) Work Phone: [facility] Comment on above: Orders (refill reque st) Start: 07-04-2021 Telephone encounter Santhosh Holden MD Work Phone: [facility] Comment on above: Insurance Authorizat ion ([place] Thyroid 60 mg) Start: 07-02-2021 Refill Santhosh Holden MD Work Phone: [facility] Comment on above: Refill Request Start: 02-24-2020 End: 02-24-2020 Subsequent hospital visit by physician Xr [facility] Work Phone: Radiology Comment on above: Closed nondisplaced fracture of phalanx of lesser toe of right foot with routine healing, unspecified phalanx, subsequent encounter [S92.504D] Start: 07-18-2019 ambulatory UNKNOWN PROVIDER Facili ty:[facility] Procedures Date Procedure Procedure Detail Performing Clinician Start: 09-09-2024 Gluc bld gluc mntr d ev cleared fda spec home use Santhosh Holden MD Work Phone: Start: 08-29-2024 CT cervical spine wi thout contrast Dr. Santhosh Holden MD Work Phone: Start: 08-29-[address] Raymundo Holden MD Work Phone: Start: 08-29-2024 CT of head without contrast Dr. Santhosh Holden MD Work Phone: Start: 05-20-2024 PFIZER-BIONTECH COVI D-19 VACCINE AGE 12+ YR (COMIRNATY) Santhosh Holden MD Work Phone: Start: 05-05-2024 Radex toe minimum 2 views Dru Sahu Work Phone: Start: 12-25-2023 HEARING TEST/AUDIOGRAM Dru Collado MD Work Phone: Start: 06-02-2023 Radiologic exam ches t 2 views Rebecca Mireles APRN.ACQUISITION ASSOCIATE Work Phone: Start: 02-07-2023 Ecg routine ecg [...] Santhosh Holden MD Work Phone: Start: 05-29-2022 PFIZER-BIONTECH COVI D-19 BIVALENT BOOSTER VACCINE, AGE 12+ YR Santhosh Holden MD Work Phone: Start: 01-17-2022 Radex foot complete minimum 3 views Ashwin Okeefe DPM Work Phone: Start: 08-09-2021 Radex foot complete minimum 3 views Dru Sahu Work Phone: Start: 08-05-2021 Radiologic exam ches t 2 views Poonam R Athy PA-C Work Phone: Start: 04-10-2020 Mammography Santhosh Curtis MD Work Phone: Start: 02-24-2020 Radex foot complete minimum 3 views Santhosh Holden MD Work Phone: Start: 04-19-2019 Microscopic observat ion [Identifier] in Cervix by Cyto stain Nory Ronal HERNANDEZ Work Phone: Start: 01-10-2015 Colonoscopy Santhosh Curtis MD Work Phone: Start: 06-20-2014 End: 05-20-2024 H/O: tubal ligation H/O tubal ligation Nory Villeda DO Work Phone: Plan of Treatment Date Care Activity Detail Author Start: 08-29-2034 Urine microalbumin profile DTaP,Tdap,Td Vaccine (3 - Td or Tdap) [facility] Start: 03-12-2028 Screening for malignant neoplasm of colon [facility] Start: 09-09-2025 Annual PCP Team Chronic Disease Visit Annual PCP Team Chronic Disease Visit [facility] Start: 06-09-2025 End: 06-09-2025 Patient encounter procedure 06/09/2025 10:00 AM EDT Office Visit [facility] [address] [place], [place] [id number] Ros Ortiz, OD [address] [place], [place] [id number] 1 year for Diabetic eye exam Ophthalmology Comment on above: 1 year for Diabetic eye exam Start: 06-02-2025 Glaucoma screening Dilated Retinal Exam [facility] Start: 05-20-2025 Annual PCP Team Chronic Disease Visit Annual PCP Team Chronic Disease Visit [facility] Start: 05-20-2025 BP Controlled (<130/80) BP Controlled (<130/80) [facility] Start: 05-20-2025 RSV Vaccine (1 - Risk 60-74 years 1-dose series) RSV Vaccine (1 - Risk 60-74 years 1-dose series) [facility] Comment on above: Postponed from 2023 (Declined at t his time) Start: 05-20-2025 Shingrix Vaccine (1 of 2) Shingrix Vaccine (1 of 2) [facility] Comment on above: Postponed from 09/04/2013 (Declined at t his time) Start: 05-13-2025 Diabetic foot examination Diabetic Foot Exam [facility] Start: 01-11-2025 End: 01-11-2025 Patient encounter procedure Neurology Comment on above: 6 month follow up Start: 01-07-2025 BP Controlled (<130/80) BP Controlled (<130/80) [facility] Start: 12-23-2024 Tetanus vaccination Tetanus (Td or Tdap) [facility] Start: 12-23-2024 Urine microalbumin profile [facility] Start: 11-18-2024 End: 11-18-2024 Patient encounter procedure 11/18/2024 2:20 PM EDT Office Visit [facility] [address] [place], [place] [phone] Santhosh Holden MD [address] [place], [place] [id number] 6 mo follow up [facility] Comment on above: 6 mo follow up Start: 11-17-2024 Hemoglobin A1c measurement HbA1C [facility] Start: 11-10-2024 Annual PCP Team Chronic Disease Visit Annual PCP Team Chronic Disease Visit [facility] Start: 11-10-2024 BP Controlled (<130/80) BP Controlled (<130/80) [facility] Start: 11-10-2024 Hepatitis B surface antibody level LDL Cholesterol [facility] Start: 08-29-2024 [facility] Start: 07-23-2024 Annual PCP Team Chronic Disease Visit Annual PCP Team Chronic Disease Visit [facility] Start: 07-02-2024 BP Controlled (<130/80) BP Controlled (<130/80) [facility] Start: 07-01-2024 End: 07-01-2024 Patient encounter procedure 07/01/2024 2:20 PM EDT Office Visit [place]at[place] [place] [phone] Elizabeth Eisenberg DO [address] [place] [address] Hair loss [L65.9] Dermatology [facility] Comment on above: Hair loss [L65.9] Start: 07-01-2024 End: 07-01-2024 Patient encounter procedure Podiatry Comment on above: 4 week follow up Start: 06-24-2024 End: 07-03-2025 XR Foot - right AP and Lateral and oblique XR FOOT GENERAL 3V AP/LAT/OBL RIGHT Radiology Routine Closed nondisplaced fracture of phalanx of right great toe, unspecified phalanx, initial encounter Hammertoe of right foot Expected: 06/24/2024, Expires: 07/03/2025 [facility] Work Phone: Comment on above: Expected: 06/24/2024, Expires: 6 Start: 06-22-2024 End: 06-22-2024 Patient encounter procedure 06/22/2024 1:00 PM EDT Office Visit Neurology [address] [facility] [place] [phone] Jovanna Prnice MD [address] [facility] [address] [place], [place] [phone] six month follow up Neurology Comment on above: six month follow up Start: 06-03-2024 End: 06-12-2025 XR Toes - right 3 Views [facility] Work Phone: Comment on above: Expected: 06/03/2024, Expires: 6 Start: 06-03-2024 End: 06-03-2024 Patient encounter procedure Podiatry Comment on above: 3 week follow up Renal insufficiency Xray Start: 06-02-2024 End: 06-02-2024 Patient encounter procedure 06/02/2024 2:45 PM EDT Office Visit [facility] [address] [place] [address] Ros Ortiz, OD [address] [place] [address] Return in about 1 year (around 06/01/2024) for diabetic eye exam. Ophthalmology Comment on above: Return in about 1 year (around 06/01/2024 ) for diabetic eye exam. Start: 06-01-2024 BP Controlled (<130/80) BP Controlled (<130/80) [facility] Start: 06-01-2024 Glaucoma screening Dilated Retinal Exam [facility] Start: 05-24-2024 End: 06-09-2025 XR Toes - right 3 Views XR TOE AP/LAT/OBL RIGHT Radiology Routine Closed displaced fracture of phalanx of right great toe, unspecified phalanx, initial encounter Expected: 05/24/2024, Expires: 06/09/2025 [facility] Work Phone: Comment on above: Expected: 05/24/2024, Expires: Start: 05-23-2024 End: 08-22-2024 Basic metabolic 2000 panel - Serum or Plasma BASIC METABOLIC PANEL Lab Routine Renal insufficiency Expected: 05/23/2024, Expires: 08/22/2024 [facility] Comment on above: Expected: 05/23/2024, Expires: Start: 05-23-2024 End: 08-22-2024 CBC W Auto Differential panel - Blood COMPLETE BLOOD COUNT AND DIFFERENTIAL Lab Routine Anemia, unspecified type Expected: 05/23/2024, Expires: 08/22/2024 [facility] Comment on above: Expected: 05/23/2024, Expires: Start: 05-23-2024 End: 08-22-2024 Ferritin [Mass/volume] in Serum or Plasma FERRITIN Lab Routine Anemia, unspecified type Expected: 05/23/2024, Expires: 08/22/2024 [facility] Comment on above: Expected: 05/23/2024, Expires: Start: 05-23-2024 End: 08-22-2024 Urinalysis complete panel - Urine URINALYSIS, WITH MICROSCOPIC Lab Routine Renal insufficiency Expected: 05/23/2024, Expires: 08/22/2024 [facility] Comment on above: Expected: 05/23/2024, Expires: Start: 05-20-2024 End: 08-19-2024 25-hydroxyvitamin D3 [Mass/volume] in Serum or Plasma [facility] Comment on above: Expected: 05/20/2024, Expires: Start: 05-20-2024 End: 08-19-2024 [id number] [Mass/volume] in Serum or Plasma [facility] Comment on above: Expected: 05/20/2024, Expires: Start: 05-20-2024 End: 08-19-2024 CBC W Auto Differential panel - Blood [facility] Work Phone: Comment on above: Expected: 05/20/2024, Expires: Start: 05-20-2024 End: 08-19-2024 Cobalamin (Vitamin B12) [Mass/volume] in Serum or Plasma [facility] Comment on above: Expected: 05/20/2024, Expires: Start: 05-20-2024 End: 08-19-2024 Comprehensive metabolic 2000 panel - Serum or Plasma [facility] Comment on above: Expected: 05/20/2024, Expires: Start: 05-20-2024 End: 08-19-2024 Folate [Mass/volume] in Serum or Plasma [facility] Comment on above: Expected: 05/20/2024, Expires: Start: 05-20-2024 End: 08-19-2024 Hemoglobin A1c in Blood [facility] Comment on above: Expected: 05/20/2024, Expires: Start: 05-20-2024 End: 08-19-2024 Iron and Iron binding capacity panel - Serum or Plasma [facility] Comment on above: Expected: 05/20/2024, Expires: Start: 05-20-2024 End: 05-20-2024 Patient encounter procedure 05/20/2024 2:00 PM EST Office Visit [facility] [address] [facility] [place] [address] Santhosh Holden MD [address] [facility] [place] [phone] 6 month f/u [facility] Comment on above: 6 month f/u Start: 05-20-2024 End: 08-19-2024 Thyrotropin [Units/volume] in Serum or Plasma [facility] Comment on above: Expected: 05/20/2024, Expires: Start: 05-13-2024 Hemoglobin A1c measurement HbA1C [facility] Start: 05-13-2024 End: 05-13-2024 Patient encounter procedure [facility] Comment on above: 6 month f/u follow up 2 weeks Start: 05-05-2024 End: 05-05-2024 Patient encounter procedure 05/05/2024 1:45 PM EST Office Visit Podiatry [address] [place], [place] [phone] Dru Sahu [address] [address] has right foot big toe and toe [...] Office Visit Podiatry [address] [place] [phone] Dru Sahu [address] [address] has right foot big toe and toe [...] up Start: 04-19-2024 HPV TESTING HPV TESTING [facility] Start: 04-19-2024 PAP TESTING PAP TESTING [facility] Start: 04-19-2024 Screening for malignant neoplasm of cervix [facility] Start: 04-07-2024 Annual PCP Team Chronic Disease Visit Annual PCP Team Chronic Disease Visit [facility] Start: 04-07-2024 BP Controlled (<130/80) BP Controlled (<130/80) [facility] Start: 04-03-2024 Hepatitis B surface antibody level LDL Cholesterol [facility] Start: 03-23-2024 Medicare [facility] Annual Wellness Visit Medicare Advantage Annual Wellness Visit [facility] Start: 02-07-2024 BP Controlled (<130/80) BP Controlled (<130/80) [facility] Start: 01-08-2024 End: 01-08-2024 Patient encounter procedure 01/08/2024 11:30 AM EDT Office Visit Neurology [address] [place] [address] [place] [phone] Jovanna Prince MD [address] [facility] [address] [place] [id number] six month follow up Migraine without aura, intractable, with status migrainosus Neurology Comment on above: six month follow up Migraine without aur a, intractable, with status migrainosus Start: 12-25-2023 End: 12-25-2023 Patient encounter procedure Audiology Comment on above: Bilateral hearing loss, unspecified hear ing loss type [H91.93] Start: 12-06-2023 Annual PCP Team Chronic Disease Visit Annual PCP Team Chronic Disease Visit [facility] Start: 12-06-2023 Hepatitis B screening Urine Albumin:Creatinine Ratio [facility] Start: 12-06-2023 Shingrix Vaccine (1 of 2) Shingrix Vaccine (1 of 2) [facility] Comment on above: Postponed from 09/04/2013 (Declined at t his time) Start: 11-22-2023 Covid-19 Vaccine () Covid-19 Vaccine ( season) [facility] Start: 11-22-2023 Influenza vaccination Influenza Vaccine (#1) [facility] Start: 11-13-2023 Diabetic foot examination Diabetic Foot Exam [facility] Start: 11-11-2023 End: 02-10-2024 Lipid 1996 panel - Serum or Plasma [facility] Work Phone: Comment on above: Expected: 11/11/2023, Expires: Start: 11-11-2023 End: 11-11-2023 Patient encounter procedure 11/11/2023 10:00 AM EDT Office Visit Family Medicine [facility] [address], [place] [id number] Saumya Vargas APRN.ACQUISITION ASSOCIATE [address] [place], [place] [id number] 6 month f/u [facility] Comment on above: 6 month f/u Start: 11-06-2023 End: 11-06-2023 Patient encounter procedure Cardiology Comment on above: 6 month follow up Start: 10-02-2023 [facility]c [facility] Start: 2023 Hepatitis B (HBV) Vaccine (optional start 60+ years) Hepatitis B (HBV) Vaccine (optional start 60+ years) [facility] Start: 2023 RSV Vaccine (1 - 1-dose 60+ series) RSV Vaccine (1 - 1-dose 60+ series) [facility] Start: 2023 RSV Vaccine (1 - Risk 60-74 years 1-dose series) RSV Vaccine (1 - Risk 60-74 years 1-dose series) [facility] Start: 2023 RSV vaccine (optional 60+ years) RSV vaccine (optional 60+ years) [facility] Start: 08-21-2023 End: 08-21-2023 Patient encounter procedure 08/21/2023 10:00 AM EDT Office Visit Neurology [address] [place] [address] KRZYSZTOF (obstructive sleep apnea) [G47.33] Neurology Comment on above: KRZYSZTOF (obstructive sleep apnea) [G47.33] Start: 06-07-2023 Mammography [facility] Start: 06-07-2023 Screening for malignant neoplasm of breast Mammogram Screening [facility] Start: 06-05-2023 Hemoglobin A1c/Hemoglobin.total in Blood HbA1C [facility] Start: 05-31-2023 Glaucoma screening Dilated Retinal Exam [facility] Start: 05-31-2023 Hepatitis C antibody, confirmatory test DILATED RETINAL EXAM [facility] Start: 05-30-2023 ANNUAL PCP TEAM CHRONIC DISEASE VISIT ANNUAL PCP TEAM CHRONIC DISEASE VISIT [facility] Start: 05-30-2023 Hepatitis B surface antibody level LDL CHOLESTEROL [facility] Start: 04-06-2023 End: 07-06-2023 Hepatic function 2000 panel - Serum or Plasma HEPATIC FUNCTION PNL Lab Routine Coronary-myocardial bridge Mild CAD Primary hypertension Mixed hyperlipidemia Expected: 04/06/2023, Expires: 07/06/2023 [facility] Work Phone: Comment on above: Expected: 04/06/2023, Expires: 4 Start: 04-06-2023 End: 07-06-2023 Lipid 1996 panel - Serum or Plasma LIPID PANEL BASIC Lab Routine Coronary-myocardial bridge Mild CAD Primary hypertension Mixed hyperlipidemia Expected: 04/06/2023, Expires: 07/06/2023 [facility] Work Phone: Comment on above: Expected: 04/06/2023, Expires: 4 Start: 12-05-2022 End: 02-04-2023 VITAMIN B1 (THIAMINE), WHOLE BLOOD [facility] Work Phone: Comment on above: Expected: 12/05/2022, Expires: 3 Start: 12-01-2022 End: 01-31-2023 ALBUMIN/CREAT RATIO RND UR ALBUMIN/CREAT RATIO RND UR Lab Routine Type 2 diabetes mellitus with diabetic neuropathy, without long-term current use of insulin (HCC) Expected: 12/01/2022, Expires: 01/31/2023 [facility] Work Phone: Comment on above: Expected: 12/01/2022, Expires: 3 Start: 12-01-2022 End: 01-31-2023 Hemoglobin A1c in Blood HGB A1C Lab Routine Type 2 diabetes mellitus with diabetic neuropathy, without long-term current use of insulin (HCC) Expected: 12/01/2022, Expires: 01/31/2023 [facility] Work Phone: Comment on above: Expected: 12/01/2022, Expires: 3 Start: 11-21-2022 COVID-19 Vaccine () COVID-19 Vaccine () [facility] Start: 11-21-2022 Covid-19 Vaccine () Covid-19 Vaccine () [facility] Start: 11-21-2022 Hemoglobin A1c/Hemoglobin.total in Blood HBA1C [facility] Start: 11-21-2022 Influenza vaccination [facility] Start: 10-29-2022 X-ray of both feet Foot min 3 Views [facility] Start: 10-29-2022 XR Foot GE 3 Views [facility] Start: 10-11-2022 Hepatitis B screening URINE ALBUMIN:CREATININE RATIO [facility] Start: 10-11-2022 Hepatitis B surface antibody level LDL CHOLESTEROL [facility] Start: 10-07-2022 ANNUAL PCP TEAM CHRONIC DISEASE VISIT ANNUAL PCP TEAM CHRONIC DISEASE VISIT [facility] Start: 10-07-2022 HIV SCREENING HIV SCREENING [facility] Comment on above: Postponed from 09/04/1981 (Declined at t his time) Start: 09-19-2022 Influenza vaccination INFLUENZA (#1) [facility] Comment on above: Postponed from 11/21/2021 (Declined at t his time) Start: 09-06-2022 End: 11-06-2022 Lipid 1996 panel - Serum or Plasma LIPID PANEL BASIC Lab Routine Mixed hyperlipidemia Expected: 09/06/2022, Expires: 11/06/2022 [facility] Work Phone: Comment on above: Expected: 09/06/2022, Expires: 3 Start: 08-09-2022 3 comp foot exam completed DIABETIC FOOT EXAM [facility] Start: 08-05-2022 BP CONTROLLED (<130/80) BP CONTROLLED (<130/80) [facility] Start: 05-29-2022 End: 07-29-2022 Cobalamin (Vitamin B12) [Mass/volume] in Serum or Plasma [facility] Work Phone: Comment on above: Expected: 05/29/2022, Expires: Start: 05-29-2022 End: 07-29-2022 Folate [Mass/volume] in Serum or Plasma [facility] Work Phone: Comment on above: Expected: 05/29/2022, Expires: 3 Start: 05-29-2022 End: 07-29-2022 Iron and Iron binding capacity panel - Serum or Plasma [facility] Work Phone: Comment on above: Expected: 05/29/2022, Expires: Start: 05-29-2022 End: 07-29-2022 LIPID PANEL, NONFASTING [facility] Work Phone: Comment on above: Expected: 05/29/2022, Expires: 3 Start: 05-29-2022 End: 07-29-2022 Thyrotropin [Units/volume] in Serum or Plasma [facility] Work Phone: Comment on above: Expected: 05/29/2022, Expires: 3 Start: 05-29-2022 End: 07-29-2022 VITAMIN B1 (THIAMINE), WHOLE BLOOD [facility] Work Phone: Comment on above: Expected: 05/29/2022, Expires: 3 Start: 04-28-2022 End: 06-28-2022 CBC W Auto Differential panel - Blood CBC + DIFF Lab Routine Type 2 diabetes mellitus with diabetic neuropathy, without long-term current use of insulin (HCC) Expected: 04/28/2022, Expires: 06/28/2022 [facility] Work Phone: Comment on above: Expected: 04/28/2022, Expires: Start: 04-28-2022 End: 06-28-2022 Comprehensive metabolic 2000 panel - Serum or Plasma COMP METABOLIC PANEL Lab Routine Type 2 diabetes mellitus with diabetic neuropathy, without long-term current use of insulin (HCC) Expected: 04/28/2022, Expires: 06/28/2022 [facility] Work Phone: Comment on above: Expected: 04/28/2022, Expires: 3 Start: 04-28-2022 End: 06-28-2022 Hemoglobin A1c in Blood HGB A1C Lab Routine Type 2 diabetes mellitus with diabetic neuropathy, without long-term current use of insulin (HCC) Expected: 04/28/2022, Expires: 06/28/2022 [facility] Work Phone: Comment on above: Expected: 04/28/2022, Expires: 3 Start: 04-19-2022 Screening for malignant neoplasm of cervix Pap Smear [facility] Start: 04-13-2022 Hemoglobin A1c/Hemoglobin.total in Blood HBA1C [facility] Start: 02-04-2022 End: 04-06-2022 Alanine aminotransferase [Enzymatic activity/volume] in Serum or Plasma ALT/SGPT Lab Routine Type 2 diabetes mellitus with diabetic neuropathy, without long-term current use of insulin (HCC) Expected: 02/04/2022, Expires: 04/06/2022 [facility] Work Phone: Comment on above: Expected: 02/04/2022, Expires: 3 Start: 02-04-2022 End: 04-06-2022 CBC W Auto Differential panel - Blood CBC + DIFF Lab Routine Type 2 diabetes mellitus with diabetic neuropathy, without long-term current use of insulin (HCC) Expected: 02/04/2022, Expires: 04/06/2022 [facility] Work Phone: Comment on above: Expected: 02/04/2022, Expires: 3 Start: 02-04-2022 End: 04-06-2022 Comprehensive metabolic 2000 panel - Serum or Plasma COMP METABOLIC PANEL Lab Routine Type 2 diabetes mellitus with diabetic neuropathy, without long-term current use of insulin (HCC) Expected: 02/04/2022, Expires: 04/06/2022 [facility] Work Phone: Comment on above: Expected: 02/04/2022, Expires: 3 Start: 02-04-2022 End: 04-06-2022 Hemoglobin A1c in Blood HGB A1C Lab Routine Type 2 diabetes mellitus with diabetic neuropathy, without long-term current use of insulin (HCC) Expected: 02/04/2022, Expires: 04/06/2022 [facility] Work Phone: Comment on above: Expected: 02/04/2022, Expires: 3 Start: 02-04-2022 End: 04-06-2022 Lipid 1996 panel - Serum or Plasma LIPID PANEL BASIC Lab Routine Type 2 diabetes mellitus with diabetic neuropathy, without long-term current use of insulin (HCC) Expected: 02/04/2022, Expires: 04/06/2022 [facility] Work Phone: Comment on above: Expected: 02/04/2022, Expires: 3 Start: 02-04-2022 End: 04-06-2022 Thyrotropin [Units/volume] in Serum or Plasma TSH BLD Lab Routine Hypothyroidism, unspecified type Expected: 02/04/2022, Expires: 04/06/2022 [facility] Work Phone: Comment on above: Expected: 02/04/2022, Expires: 3 Start: 02-04-2022 End: 04-06-2022 Thyroxine (T4) free [Mass/volume] in Serum or Plasma T4 FREE/FREE THYROX Lab Routine Hypothyroidism, unspecified type Expected: 02/04/2022, Expires: 04/06/2022 [facility] Work Phone: Comment on above: Expected: 02/04/2022, Expires: 3 Start: 02-04-2022 End: 04-06-2022 Triiodothyronine (T3) [Mass/volume] in Serum or Plasma T3 BLD Lab Routine Hypothyroidism, unspecified type Expected: 02/04/2022, Expires: 04/06/2022 [facility] Work Phone: Comment on above: Expected: 02/04/2022, Expires: 3 Start: 02-04-2022 End: 04-06-2022 Triiodothyronine (T3) Free [Mass/volume] in Serum or Plasma T3 FREE BLD Lab Routine Hypothyroidism, unspecified type Expected: 02/04/2022, Expires: 04/06/2022 [facility] Work Phone: Comment on above: Expected: 02/04/2022, Expires: 3 Start: 12-21-2021 Influenza vaccination Influenza Vaccine (#1) [facility] Start: 12-04-2021 Hepatitis B surface antibody level LDL CHOLESTEROL [facility] Start: 11-29-2021 COVID-19 VACCINE (5 - Booster for Pfizer series) COVID-19 VACCINE (5 - Booster for Pfizer series) [facility] Start: 11-21-2021 Influenza vaccination [facility] Start: 10-21-2021 End: 04-23-2022 Alanine aminotransferase [Enzymatic activity/volume] in Serum or Plasma ALT/SGPT Lab Routine Other hyperlipidemia Expected: 10/21/2021, Expires: 04/23/2022 [facility] Work Phone: Comment on above: Expected: 10/21/2021, Expires: 3 Start: 10-21-2021 End: 04-23-2022 Lipid 1996 panel - Serum or Plasma LIPID PANEL BASIC Lab Routine Other hyperlipidemia Expected: 10/21/2021, Expires: 04/23/2022 [facility] Work Phone: Comment on above: Expected: 10/21/2021, Expires: 3 Start: 10-21-2021 End: 04-23-2022 Thyrotropin [Units/volume] in Serum or Plasma TSH BLD Lab Routine Hypothyroidism, unspecified type Expected: 10/21/2021, Expires: 04/23/2022 [facility] Work Phone: Comment on above: Expected: 10/21/2021, Expires: 3 Start: 10-21-2021 End: 04-23-2022 Thyroxine (T4) free [Mass/volume] in Serum or Plasma T4 FREE/FREE THYROX Lab Routine Hypothyroidism, unspecified type Expected: 10/21/2021, Expires: 04/23/2022 [facility] Work Phone: Comment on above: Expected: 10/21/2021, Expires: 3 Start: 10-21-2021 End: 04-23-2022 Triiodothyronine (T3) [Mass/volume] in Serum or Plasma T3 BLD Lab Routine Hypothyroidism, unspecified type Expected: 10/21/2021, Expires: 04/23/2022 [facility] Work Phone: Comment on above: Expected: 10/21/2021, Expires: 3 Start: 10-07-2021 End: 12-07-2021 ALBUMIN/CREAT RATIO RND UR ALBUMIN/CREAT RATIO RND UR Lab Routine Type 2 diabetes mellitus without complication, unspecified whether long-term insulin use (HCC) Expected: 10/07/2021, Expires: 12/07/2021 [facility] Work Phone: Comment on above: Expected: 10/07/2021, Expires: 2 Start: 10-07-2021 End: 12-07-2021 CBC W Auto Differential panel - Blood CBC + DIFF Lab Routine Iron deficiency anemia, unspecified iron deficiency anemia type Expected: 10/07/2021, Expires: 12/07/2021 [facility] Work Phone: Comment on above: Expected: 10/07/2021, Expires: 2 Start: 10-07-2021 End: 12-07-2021 Comprehensive metabolic 2000 panel - Serum or Plasma COMP METABOLIC PANEL Lab Routine Essential hypertension Other hyperlipidemia Type 2 diabetes mellitus without complication, unspecified whether long-term insulin use (HCC) Expected: 10/07/2021, Expires: 12/07/2021 [facility] Work Phone: Comment on above: Expected: 10/07/2021, Expires: 2 Start: 10-07-2021 End: 12-07-2021 Ferritin [Mass/volume] in Serum or Plasma FERRITIN BLD Lab Routine Iron deficiency anemia, unspecified iron deficiency anemia type Expected: 10/07/2021, Expires: 12/07/2021 [facility] Work Phone: Comment on above: Expected: 10/07/2021, Expires: 2 Start: 10-07-2021 End: 12-07-2021 Hemoglobin A1c in Blood HGB A1C Lab Routine Type 2 diabetes mellitus without complication, unspecified whether long-term insulin use (HCC) Expected: 10/07/2021, Expires: 12/07/2021 [facility] Work Phone: Comment on above: Expected: 10/07/2021, Expires: 2 Start: 10-07-2021 End: 12-07-2021 Iron and Iron binding capacity panel - Serum or Plasma IRON + TIBC Lab Routine Iron deficiency anemia, unspecified iron deficiency anemia type Expected: 10/07/2021, Expires: 12/07/2021 [facility] Work Phone: Comment on above: Expected: 10/07/2021, Expires: 2 Start: 10-07-2021 End: 12-07-2021 LIPID PANEL, NONFASTING LIPID PANEL, NONFASTING Lab Routine Other hyperlipidemia Expected: 10/07/2021, Expires: 12/07/2021 [facility] Work Phone: Comment on above: Expected: 10/07/2021, Expires: 2 Start: 10-07-2021 End: 12-07-2021 Magnesium [Mass/volume] in Serum or Plasma MAGNESIUM BLD Lab Routine Primary hypertension Essential hypertension Expected: 10/07/2021, Expires: 12/07/2021 [facility] Work Phone: Comment on above: Expected: 10/07/2021, Expires: 2 Start: 10-07-2021 End: 12-07-2021 Thyrotropin [Units/volume] in Serum or Plasma TSH BLD Lab Routine Hypothyroidism, unspecified type Expected: 10/07/2021, Expires: 12/07/2021 [facility] Work Phone: Comment on above: Expected: 10/07/2021, Expires: 2 Start: 10-07-2021 End: 12-07-2021 Thyroxine (T4) free [Mass/volume] in Serum or Plasma T4 FREE/FREE THYROX Lab Routine Hypothyroidism, unspecified type Expected: 10/07/2021, Expires: 12/07/2021 [facility] Work Phone: Comment on above: Expected: 10/07/2021, Expires: 2 Start: 10-07-2021 End: 12-07-2021 Triiodothyronine (T3) [Mass/volume] in Serum or Plasma T3 BLD Lab Routine Hypothyroidism, unspecified type Expected: 10/07/2021, Expires: 12/07/2021 [facility] Work Phone: Comment on above: Expected: 10/07/2021, Expires: 2 Start: 10-03-2021 End: 10-03-2022 CBC W Auto Differential panel - Blood CBC + DIFF Lab Routine Primary hypertension Expected: 10/03/2021, Expires: 10/03/2022 [facility] Work Phone: Comment on above: Expected: 10/03/2021, Expires: 3 Start: 10-03-2021 End: 10-03-2022 Comprehensive metabolic 2000 panel - Serum or Plasma COMP METABOLIC PANEL Lab Routine Primary hypertension Expected: 10/03/2021, Expires: 10/03/2022 [facility] Work Phone: Comment on above: Expected: 10/03/2021, Expires: 3 Start: 10-03-2021 End: 10-03-2022 Lipid 1996 panel - Serum or Plasma LIPID PANEL BASIC Lab Routine Primary hypertension Expected: 10/03/2021, Expires: 10/03/2022 [facility] Work Phone: Comment on above: Expected: 10/03/2021, Expires: 3 Start: 10-03-2021 End: 12-03-2021 Thyrotropin [Units/volume] in Serum or Plasma TSH BLD Lab Routine Hypothyroidism, unspecified type Expected: 10/03/2021, Expires: 12/03/2021 [facility] Work Phone: Comment on above: Expected: 10/03/2021, Expires: 2 Start: 08-05-2021 End: 08-19-2021 SARS-CoV-2 (COVID-19) RNA [Presence] in Respiratory specimen by JAMSHID with probe detection [facility] Work Phone: Comment on above: Expected: 08/05/2021, Expires: 2 Start: 06-03-2021 Hemoglobin A1c/Hemoglobin.total in Blood HBA1C [facility] Start: 05-30-2021 ANNUAL PCP TEAM CHRONIC DISEASE VISIT ANNUAL PCP TEAM CHRONIC DISEASE VISIT [facility] Start: 05-15-2021 COVID-19 VACCINE (4 - Booster for Pfizer series) COVID-19 VACCINE (4 - Booster for Pfizer series) [facility] Start: 04-10-2021 Mammography MAMMOGRAM [facility] Start: 03-09-2021 COVID-19 VACCINE (4 - Booster for Pfizer series) COVID-19 VACCINE (4 - Booster for Pfizer series) [facility] Start: 11-24-2020 3 comp foot exam completed DIABETIC FOOT EXAM [facility] Start: 10-23-2020 Hepatitis C antibody, confirmatory test DILATED RETINAL EXAM [facility] Start: 08-30-2020 Hepatitis B screening URINE ALBUMIN:CREATININE RATIO [facility] Start: 03-14-2020 Basic metabolic 2000 panel - Serum or Plasma Basic Metabolic Panel [facility] Start: 03-14-2020 Creatinine measurement Basic Metabolic Panel [facility] Start: 01-11-2020 Colonoscopy COLONOSCOPY [facility] Start: 01-11-2020 COLORECTAL CANCER SCREENING COLORECTAL CANCER SCREENING [facility] Start: 08-22-2019 Annual wellness visit Annual Well[facility] ([id number]) [facility] Start: 09-04-2013 Measurement of occult blood in single stool specimen FIT [facility] Start: 09-04-2013 Screening for malignant neoplasm of breast [facility] Start: 09-04-2013 Screening for malignant neoplasm of colon [facility] Screening [facility] Start: 09-04-2013 Shingles (RZV) Vaccine (1 of 2) Shingles (RZV) Vaccine (1 of 2) [facility] Start: 09-04-2013 SHINGRIX VACCINE (1 of 2) SHINGRIX VACCINE (1 of 2) [facility] Start: 09-04-2008 Cholesterol [Mass/volume] in Serum or Plasma Cholesterol [facility] Start: 09-04-2008 COLOGUARD (FIT-DNA) COLOGUARD (FIT-DNA) [facility] Start: 09-04-[address] COLONOGRAPHY [facility] Start: 09-04-2008 FECAL OCCULT BLOOD FECAL OCCULT BLOOD [facility] Start: 09-04-2008 Screening for malignant neoplasm of colon [facility] Start: 09-04-2008 SIGMOIDOSCOPY SIGMOIDOSCOPY [facility] Start: 2003 Screening for malignant neoplasm of breast Mammography [facility] Start: 09-04-1982 Hepatitis A (HAV) Vaccine (optional start 19+ years) Hepatitis A (HAV) Vaccine (optional start 19+ years) [facility] Start: 09-04-1982 HEPATITIS B (1 of 3 - Risk 3-dose series) HEPATITIS B (1 of 3 - Risk 3-dose series) [facility] Start: 09-04-1982 SHINGRIX VACCINE (1 of 2) SHINGRIX VACCINE (1 of 2) [facility] Start: 09-04-1981 BP CONTROLLED (<130/80) BP CONTROLLED (<130/80) [facility] Start: 09-04-1981 Hepatitis C screening Hepatitis C Antibody [facility] Start: 09-04-1981 HIV SCREENING HIV SCREENING [facility] Start: 09-04-1978 HIV screening HIV Test [facility] Start: 09-04-1969 PNEUMOCOCCAL (1 - PCV) PNEUMOCOCCAL (1 - PCV) [facility] Start: 1963 HEPATITIS B (1 of 3 - 3-dose series) HEPATITIS B (1 of 3 - 3-dose series) [facility] Start: 1963 Hepatitis B vaccination Hepatitis B (HBV) Vaccine (1 of 3 - 3-dose series) [facility] Start: 1965 Screening for malignant neoplasm of colon Colonoscopy [facility] Start: 1963 Thyroid stimulating hormone measurement TSH [facility] Bacteria identified in Wound by Culture BACTERIAL CULTURE AND GRAM STAIN, ABSCESS AND WOUND (AEROBIC CULTURE) Microbiology Routine Cellulitis and abscess of toe of right foot 03/29/2024 12:18 PM EST [facility] Work Phone: Bacteria identified in Wound by Culture BACTERIAL CULTURE AND GRAM STAIN, ABSCESS AND WOUND (AEROBIC CULTURE) Microbiology Routine Cellulitis and abscess of toe of right foot 05/05/2024 2:13 PM EST [facility] Work Phone: End: 04-15-2025 DBT Breast - bilateral screening JESUS SCREENING W TIFFANY Radiology Routine Encounter for screening mammogram for breast cancer 1 Occurrences starting 03/16/2024 until 04/15/2025 [facility] Work Phone: Comment on above: 1 Occurrences starting 03/16/2024 until 04/15/2025 End: 05-08-2024 Echocardiography ECHO Cardiology Routine Mild CAD SOB (shortness of breath) 1 Occurrences starting 05/08/2023 until 05/08/2024 [facility] Work Phone: Comment on above: 1 Occurrences starting 05/08/2023 until 05/08/2024 Electrocardiogram EKG BIC Routin e 02/07/2023 1:11 AM EST [facility] Glucose [Mass/volume ] in Serum or Plasma GLUCOSE, BLOOD (POC) Lab Routine Altered mental status, unspecified altered mental status type Type 2 diabetes mellitus with diabetic neuropathy, without long-term current use of insulin (HCC) Ordered: 09/09/2024 [facility] Work Phone: Comment on above: Ordered: 09/09/2024 End: 09-23-2024 HEARING TEST/AUDIOGRAM HEARING TEST/AUDIOGRAM Audiology Routine Other specified hearing loss, unspecified ear 1 Occurrences starting 09/23/2023 until 09/23/2024 [facility] Work Phone: Comment on above: 1 Occurrences starting 09/23/2023 until 09/23/2024 Hemoglobin.gastroint estina l.lower [Presence] in Stool by Immunoassay IMMUNOCHEMICAL FECAL OCCULT BLOOD TEST Lab Routine Anemia, unspecified type Ordered: 05/23/2024 [facility] Work Phone: Comment on above: Ordered: 05/23/2024 End: 07-23-2024 HOME SLEEP APNEA TEST (HSAT) HOME SLEEP APNEA TEST (HSAT) Procedures Routine KRZYSZTOF (obstructive sleep apnea) 1 Occurrences starting 07/24/2023 until 07/23/2024 [facility] Work Phone: Comment on above: 1 Occurrences starting 07/24/2023 until 07/23/2024 End: 06-19-2025 Liver stiffness by US.transient elastography US ELASTOGRAPHY LIVER Radiology Routine Liver fibrosis 1 Occurrences starting 05/20/2024 until 06/19/2025 [facility] Comment on above: 1 Occurrences starting 05/20/2024 until 06/19/2025 End: 06-28-2023 JESUS SCREENING JESUS SCREENING Radiology Routine Screening breast examination 1 Occurrences starting 05/29/2022 until 06/28/2023 [facility] Work Phone: Comment on above: 1 Occurrences starting 05/29/2022 until 06/28/2023 Patient Education [facility] Work Phone: Patient referral [facility] Work Phone: End: 08-09-2022 PVR ANK PRESS [facility] PVR ANK PRESS [facility] Vascular Lab Routine Ulcer of toe of left foot, limited to breakdown of skin (HCC) Diminished pulses in lower extremity 1 Occurrences starting 08/09/2021 until 08/09/2022 [facility] Work Phone: Comment on above: 1 Occurrences starting 08/09/2021 until 08/09/2022 End: 06-19-2025 US Abdomen RUQ US ABD RIGHT UPPER QUADRANT Radiology Routine Liver fibrosis 1 Occurrences starting 05/20/2024 until 06/19/2025 [facility] Comment on above: 1 Occurrences starting 05/20/2024 until 06/19/2025 End: 06-22-2025 US Kidney - bilateral and Urinary bladder US KIDNEY/BLADDER Radiology Routine Renal insufficiency 1 Occurrences starting 05/23/2024 until 06/22/2025 [facility] Comment on above: 1 Occurrences starting 05/23/2024 until 06/22/2025 US Kidney - bilatera l and Urinary bladder US KIDNEY/BLADDER Radiology Routine Renal insufficiency 06/03/2024 2:12 PM EDT [facility] [facility] Work [facility] End: 06-28-2023 XR DIGIT GENERAL 3V FRONTAL/LAT/OBL RIGHT XR DIGIT GENERAL 3V FRONTAL/LAT/OBL RIGHT Radiology Routine Finger pain, right 1 Occurrences starting 05/29/2022 until 06/28/2023 [facility] Work Phone: Comment on above: 1 Occurrences starting 05/29/2022 until 06/28/2023 XR DIGIT GENERAL 3V FRONTAL/LAT/OBL RIGHT XR DIGIT GENERAL 3V FRONTAL/LAT/OBL RIGHT Radiology Routine Finger pain, right 05/29/2022 11:53 AM EST [facility] Work Phone: End: 12-18-2021 XR FOOT GENERAL 3V AP/LAT/OBL LEFT [facility] Work Phone: Comment on above: 1 Occurrences starting 12/18/2021 until 12/18/2021 End: 10-25-2023 XR FOOT GENERAL 3V AP/LAT/OBL RIGHT XR FOOT GENERAL 3V AP/LAT/OBL RIGHT Radiology Routine Pain 1 Occurrences starting 09/25/2022 until 10/25/2023 [facility] Work Phone: Comment on above: 1 Occurrences starting 09/25/2022 until 10/25/2023 End: 11-14-2023 XR FOOT GENERAL 3V AP/LAT/OBL RIGHT XR FOOT GENERAL 3V AP/LAT/OBL RIGHT Radiology Routine Hammertoe of right foot Closed displaced fracture of phalanx of lesser toe of right foot, unspecified phalanx, initial encounter 1 Occurrences starting 10/15/2022 until 11/14/2023 [facility] Work Phone: Comment on above: 1 Occurrences starting 10/15/2022 until 11/14/2023 XR Toes - right 3 Views XR TOE A P/LAT/OBL RIGHT Radiology Routine Closed displaced fracture of phalanx of right great toe, unspecified phalanx, initial encounter 05/13/2024 1:22 PM EST [facility] Work Phone: [facility] Immunizations Immunization Date Immunization Notes Care Provider [facility] 08-29-2024 tetanus toxoid, reduced diphtheria toxoid, and acellular pertussis vaccine, adsorbed Dr. Santhosh Holden MD Work Phone: [facility] 05-20-2024 COVID-19 vaccine, ag e 12+ yr (PFIZER-BIONTECH COMIRNATY) Santhosh Holden MD Work Phone: [facility] 05-20-2024 influenza, seasonal, injectable Santhosh Holden MD Work Phone: [facility] 04-07-2023 COVID-19 vaccine, ag e 12+ yr, 2022- season (PFIZER-BIONTECH) Santhosh Holden MD Work Phone: [facility] 12-05-2022 influenza, injectabl e, quadrivalent, contains preservative Santhosh Holden MD Work Phone: [facility] 12-05-2022 influenza virus vaccine, unspecified formulation Dru Collado MD Work Phone: [facility] 05-29-2022 COVID-19 booster vaccine, age 12+ yr, bivalent (PFIZER-BIONTECH) Santhosh Holden MD Work Phone: [facility] 05-29-2022 pneumococcal (PCV20) vaccine, 20 valent (PREVNAR 20) Santhosh Holden MD Work Phone: [facility] 05-29-2022 pneumococcal Conjugate, unspecified formulation Santhosh Holden MD Work Phone: [facility] Work Phone: 07-02-2020 Pfizer SARS-COV-2 (COVID-19) vaccine, age 12+ yrs, mRNA, spike protein, LNP, preservative free, 30 mcg/0.3mL dose (JZG=730) Nory Karhaydee HERNANDEZ Work Phone: [facility] 06-11-2020 Pfizer SARS-COV-2 (COVID-19) vaccine, age 12+ yrs, mRNA, spike protein, LNP, preservative free, 30 mcg/0.3mL dose (WTS=650) Nory Karim Work Phone: [facility] 02-24-2020 influenza, injectabl e, quadrivalent, contains preservative Santhosh Holden MD Work Phone: [facility] 02-24-2020 influenza virus vaccine, unspecified formulation Nory Tutor Universehaydee [facility] Work Phone: [facility] 11-23-2018 influenza virus vaccine, unspecified formulation Santhosh Holden MD Work Phone: [facility] 12-23-2017 influenza, injectabl e, quadrivalent, contains preservative Santhosh Holden MD Work Phone: [facility] 01-01-2017 influenza, injectabl e, quadrivalent, preservative free Dr. Santhosh Holden MD Work Phone: [facility] 01-01-2017 influenza, seasonal, injectable [facility] 01-01-2017 influenza, seasonal, injectable, preservative free Santhosh Holden MD Work Phone: [facility] 04-01-2016 influenza, injectabl e, quadrivalent, preservative free Santhosh Holden MD Work Phone: [facility] 12-23-2014 tetanus and diphther ia toxoids, adsorbed, preservative free, for adult use (2 Lf of tetanus toxoid and 2 Lf of diphtheria toxoid) [facility] 12-23-2014 tetanus toxoid, reduced diphtheria toxoid, and acellular pertussis vaccine, adsorbed Santhosh Holden MD Work Phone: [facility] Payers Date Payer Category Payer Self-pay [id number] 2017 Medicaid [id number] 2017 Medicare [id number] 2017 Medicare [id number] 2017 Medicare (Managed Care) [facility] MEDICARE [id number] 2017 Unknown [id number] 2014 Medicaid [id number] 1965 Unknown [id number] 1965 Unknown [id number] Medicare MEDICARE PART A B [id number] Private Health Insurance [facility] [facility] 18 [id number] Unknown [facility] COMMUNITY PLAN [id number] Unknown [id number] Unknown [id number] Social History Date Type Detail Facility Start: 10-23-2014 End: 11-11-2023 Tobacco smoking status NHIS Ex-smoker [facility] Start: 03-23-1978 End: 06-20-1990 History of tobacco use Current smoker [facility] Start: 03-23-1978 End: 06-20-1990 History of tobacco use Cigarette Smoker [facility] Start: 10-23-2014 End: 08-06-2022 Cigarettes smoked current (pack per day) - Reported 1.5 [facility] Start: 10-23-2014 End: 11-11-2023 Tobacco use and exposure Smokeless tobacco non-user [facility] Start: 04-14-2021 End: 09-09-2024 Alcohol intake Current non-drinker of alcohol (finding) [facility] Start: 11-25-2019 History SDOH Alcohol Frequency 1 [facility] Start: 11-25-2019 History SDOH Alcohol Std Drinks 98 [facility] Start: 11-25-2019 History SDOH Transport Med 2 [facility] Start: 11-25-2019 Education 14 [facility] Start: 1965 Sex Assigned At Female [facility] Start: 01-25-2020 End: 02-24-2022 Exposure to SARS-CoV-2 (event) Not sure [facility] Work Phone: Start: 1965 Sex Assigned At Not on file [facility] Start: 11-25-2019 End: 08-06-2022 Gender identity Not on file [facility] Adult Depression Screening Assessment 1 [facility] Start: 11-22-2019 Gender identity Identifies as female gender (finding) [facility] Start: 11-22-2019 Sexual orientation Heterosexual (finding) [facility] How often to you hav e a drink containing alcohol? Never [facility] In the past 12 month s, was there a time when you were not able to pay the mortgage or rent on time? Yes [facility] At any time in the p ast 12 months, were you homeless or living in usp [including now]? No [facility] Start: 10-29-2022 Tobacco smoking status NHIS Unknown if ever smoked [facility] Medical Equipment Procedure Code Equipment Code Equipment Origin al Text Equipment Identifier Dates [id number] Start: 09-27-2018 [id number], [id number], [id number], [id number], [id number], [id number], [id number], [id number], [id number] Start: 09-27-2018 End: 05-17-2024 Comment on above: Test blood sugar(s) once times daily. Dx: E11.40 Test blood sugar(s) one time daily. Dx: Other DM Code E11.40 Insulin: No Test blood sugar(s) one time daily. Dx: Other DM Code E11.40 Insulin: No [id number] Start: 09-27-2018 Functional Status Date Assessment Result Facility 05-17-2020 Are you deaf, or do you have serious difficulty hearing No 05/17/2020 5:08 PM Rahel Hemphill RN [facility] 05-17-2020 Are you blind, or do you have serious difficulty seeing, even when wearing glasses No 05/17/2020 5:08 PM Rahel Hemphill RN No [facility] 05-17-2020 Do you have serious difficulty walking or climbing stairs No 05/17/2020 5:08 PM Rahel Hemphill, [place] [facility] 05-17-2020 Do you have difficul ty dressing or bathing No 05/17/2020 5:08 PM Rahel Hemphill, [place] [facility] 05-17-2020 Because of a physica l, mental, or emotional condition, do you have difficulty doing errands alone such as visiting a physician's office or shopping No 05/17/2020 5:08 PM Rahel Hemphill RN No [facility] Mental Status Date Assessment Result Facility 05-17-2020 Because of a physica l, mental, or emotional condition, do you have serious difficulty concentrating, remembering, or making decisions No 05/17/2020 5:08 PM Rahel Hemphill RN No [facility] Clinical Notes 02-10-2018 to 09-09-2024 Santhosh Holden MD - 09/09/2024 3:20 PM EDTTelephone Encounter - Pina Springer LPN - 07/27/2024 2:45 PM EDTTelephone Encounter - Pina Springer LPN - 07/27/2024 2:45 PM EDTPatient Instructions Note Date & Type Note Facility 09-09-2024 History of Presen t illness Narrative Inés Orellana Workman is a 59-year-old female with a history of tremors, presenting with multiple recent falls, accompanied by her [id number] who is providing history on her behalf. HPI Falls: - Two significant falls in the last week, with several smaller falls. - First fall occurred while making breakfast for her granddaughter; lost balance and fell, hitting the back of her head on the leg of a dining room table. - Unwitnessed; may have been unconscious for several seconds. - Not using walker at the time. - Sustained a laceration requiring 7 jonathan. - CT of the brain, cervical spine, and face performed at [facility]. - Second fall on 09/02 in the bathroom; hit head against the wall, creating a hole in the drywall. - CT of the brain and cervical spine performed at [facility]. - Multiple smaller falls, including two last night; found behind the door in her bedroom with her walker fallen over. - Baseline tremor noted, but more pronounced since the falls. - Neurology appointment in May or June; prescribed Topamax, currently taking 1 pill BID. - Scheduled to see neurology in December. - She has had a significant drop in mentation since then. I just saw her four months ago and she is entirely different today. Altered Mental Status: - Not acting like herself since the falls; mentally slow and lethargic. - Often not responding. - Difficulty with communication and responsiveness. - Increased sleepiness and difficulty taking medications. - Vomiting last night; not eating or drinking well. - Difficulty standing and ambulating; requires assistance. - Family is having issues caring for her at home. - Concerns about possible seizure activity. - Recent changes in vision; seeing things that are not there. - Recent weight loss; Inés's A1c dropped from 7.4 to 5.0 since starting Ozempic. - Ozempic not given last week due to not feeling well; not given this week due to falls. - No recent medication changes. - Last blood work in April showed normal iron, B12, and folate levels. MEDICATIONS: Current Outpatient Medications Medication Sig gabapentin (NEURONTIN) 300 mg capsule Take 1 capsule by mouth three times a day for 90 days. lisinopril (ZESTRIL) 5 mg tablet Take 1 tablet by mouth once daily. Cetirizine (ZYRTEC) 10 mg cap Take 1 capsule by mouth once daily. thyroid, pork, (ARMOUR THYROID) 60 mg tablet Take 1 tablet by mouth two times a day. topiramate (TOPAMAX) 50 mg tablet Take 1 tablet by mouth two times a day. carbidopa-levodopa (SINEMET) 25-100 mg per tablet Take 1 tablet by mouth three times a day. prochlorperazine (COMPAZINE) 10 mg tablet Take 1 tablet by mouth two times a day as needed (migraine). ferrous sulfate 325 mg (65 mg iron) tablet Take 1 tablet by mouth two times a day with meals. ondansetron (ZOFRAN) 4 mg tablet Take 1 tablet by mouth once daily as needed. blood sugar diagnostic (FREESTYLE LITE STRIPS) test [...] 3 tablets by mouth daily with breakfast. metoprolol succinate ER (TOPROL XL) 25 mg [...] Take 1 tablet by mouth once daily loratadine [...] chin strap (if indicated) and lifetime supplies ([facility]) DX: KRZYSZTOF G47.33 multivit with minerals/lutein (MULTIVITAMIN 50 PLUS ORAL) Take 1 tablet by mouth once daily. COMPOUNDED PRESCRIPTION Diabetic shoes One pair CPAP CPAP with humidification. Mask (per patient preference) optional chin strap (if indicated) , filters, tubing, humidifier and lifetime supplies. clonazePAM (KLONOPIN) 1 mg tablet 1 mg two times a day. vortioxetine (TRINTELLIX) 20 mg tablet Take 1 [...] Dr. Orozco, psychiatry Chronic headaches Coronary-myocardial bridge (HCC) DDD (degenerative disc disease) Depression 01/05/2015 Essential tremor TK tremor Fibromyalgia GERD (gastroesophageal reflux disease) HTN (hypertension) Hyperlipidemia Hypothyroid Liver fibrosis Mild CAD 08/22/2019 Neuropathy Non-melanoma skin cancer 03/08/2021 Obstructive sleep apnea PTSD (post-traumatic stress disorder) PVD (peripheral vascular disease) Sciatica Shoulder injury Type II or unspecified [...] date: 03/23/1978 Quit date: 03/23/1989 Years since quittin.4 Smokeless tobacco: Never Vaping Use Vaping status: Never Used Substance Use Topics Alcohol use: No Drug use: No Reviewed current medications, allergies, past medical history, surgical history, family history and social history today. REVIEW OF SYSTEMS Constitutional: (+) weight loss, (+) decreased appetite, (+) lethargy, (-) fever, (-) chills Respiratory: (-) cough, (-) shortness of breath Gastrointestinal: (+) vomiting, (+) dysphagia, (-) abdominal pain, (-) diarrhea, (-) constipation Genitourinary: (-) dysuria Neurological: (+) balance difficulty, (+) tremor, (+) altered mental status, (+) visual hallucinations, (+) weakness HEALTH MAINTENANCE: Reviewed health maintenance issues today and recommended the following in detail. Mammogram Screening due on 06/07/2023 Urine Albumin:Creatinine Ratio due on 12/06/2023 Medicare Advantage Annual Wellness Visit Never done Cervical Cancer Screening due on 04/19/2024 LAB REVIEWED: Labs: (April) - Iron: Within normal limits - B12: Within normal limits - Folate: Within normal limits - A1c: Decreased from 7.4 to 5 Imaging: (09/02) - CT of the brain: No results stated - CT of the cervical spine: No results stated - CT of the brain: No results stated - CT of the cervical spine: No results stated - CT of the face: No results stated VITALS: BP 102/62 Pulse 74 LMP 11/20/2014 (Approximate) SpO2 96% Last 4 Encounter Wt Readings: Date: Wt: 06/22/2024 81.8 kg (180 lb 7.1 oz) 05/20/2024 81.6 kg (180 lb) 01/08/2024 92 kg (202 lb 13.2 oz) 11/11/2023 96.6 kg (213 lb) PHYSICAL EXAMINATION: GENERAL: Patient appears lethargic, not in her usual state. Very profound change. SKIN: Dry, no rash or skin lesions. lacertions on back of scalp HEAD: Normocephalic, laceration with jonathan noted on the posterior aspect. EYES: PERRLA, EOMI, conjunctiva clear. OROPHARYNX: dry mucous membraines NECK: Supple, no lymphadenopathy, normal thyroid, no carotid bruits. LUNGS: Clear to auscultation bilaterally, no wheezes/rhonchi/rales. HEART: Regular rate and rhythm, no murmurs. No ectopy. EXTREMITIES: Normal, no deformities, no skin discoloration, no edema. NEURO: Oriented x 1. often falling asleep Tremor noted, more pronounced than baseline. in wheelchair. having significant issues ambulating and even transferring. ASSESSMENT AND PLAN 1. Altered mental status, unspecified altered mental status type (R41.82) 2. Multiple falls (R29.6) 3. Injury of head, subsequent encounter (S09.90XD) 4. Laceration of scalp, subsequent encounter (S01.01XD) 5. Dehydration (E86.0) 6. Anorexia (R63.0) - Recent multiple falls with head injuries; CT scans of brain and cervical spine performed at [facility] and [facility]. - Noted significant change in mental status post-falls, with increased lethargy and difficulty in communication. - Exhibiting signs of dehydration, including reduced oral intake and vomiting. - Differential diagnoses include metabolic imbalance, undetected intracranial injury, or possible seizure activity. - Immediate hospital evaluation recommended; Family wants to see [facility]. Will call ER to give report. - Ordered glucose check to assess for hypoglycemia. Glucose 145. 7. Tenuous home situation (Z63.8) - Current home environment may not be suitable for patient's care needs given recent falls and altered mental status. - Discussed with family the need for hospital evaluation and potential transfer to a facility with appropriate resources. 8. Type 2 diabetes mellitus with diabetic neuropathy, without long-term current use of insulin (HCC) (E11.40) - Recent A1c improved from 7.4% to 5% with Ozempic therapy. - Ozempic withheld by family due to recent falls and patient's condition. - Monitor blood glucose levels closely; ordered immediate glucose check. 9. Renal insufficiency (N28.9) - needs checked. 10. Fibromyalgia (M79.7) stable 11. Essential tremor (G25.0) - Noted increase in tremor severity post-falls. - Currently managed with Topamax; no recent medication changes. seeing [facility] neurology - Neurology follow-up scheduled for December; consider earlier evaluation based on current condition. 12. H/O gastric bypass (Z98.84) - recent labs were all normal. 13. 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 14. Primary hypertension (I10) - stable. 15. Other hyperlipidemia (E78.49) - stable. 16. KRZYSZTOF (obstructive sleep apnea) (G47.33) - stable. 17. 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 (K22.70) - stable. 18. Liver fibrosis (K74.00) - needs assessed 19. Hypothyroidism, unspecified type (E03.9) - needs evaluted. (See patient after visit summary for additional instructions to patient) Santhosh Holden MD Recording using [employer] software for draft documentation of the visit was discussed with the patient/authorized sales and merchandising representative; all questions welcomed and answered. Patient/authorized sales and merchandising representative agreed to proceed documented in this encounter [facility] 08-29-2024 Discharge summary [facility] 08-29-2024 Radiology Diagnostic study note [facility] Imaging Services [address] [place] [address] Brain/Head without Contrast MR#: [id number] Acct: [id number] Name: INÉS SHANKS Rep #: [id number] : 1965 F 58 From: Pet er Temo HERNANDEZ PCP: Dr. Santhosh Holden MD Status: PRE E R Study:Brain/Head without Contrast Date of Exa m: 08/29/24 Exam# [id number] Ordering Dr: Sachin Marie DO PROCEDURE: BRAIN/HEAD [...] chronic small-vessel ischemic changes . Reading [facility] CC: Dr. Sachin Walton DO; Dr. Santhosh Holden MD ~ Audit Director: Signed [facility] 08-29-2024 Radiology Diagnostic study note [facility] Imaging Services [address] [place] [id number] Sinus/Facial Bone MR#: [id number] Acct: [id number] Name: INÉS SHANKS Rep #: [id number] : 1965 F 58 From: Flash Hwang MD PCP: Dr. Santhosh Holden MD Status: PRE E R Study:Sinus/Facial Bone Date of Exam: Exam# [id number] Ordering Dr: Sachin Marie DO PROCEDURE: SINUS/FACIAL [...] No acute abnormality is seen. [facility] CC: Dr. Sachin Walton DO; Dr. Santhosh Holden MD ~ Audit Director: Signed [facility] 08-29-2024 Radiology Diagnostic study note [facility] Imaging Services [address] [place] [place] [id number] Spine Cervical without Contras MR#: [id number] Acct: [id number] Name: INÉS SHANKS JOANN Rep #: [id number] : 1965 F 58 From: Flash Hwang MD PCP: Dr. Santhosh Holden MD Status: PRE E R Study:Spine Cervical without Contras Date of Exam: 08/29/24 Exam# [id number] Ordering Dr: Sachin Marie DO PROCEDURE: SPINE [...] CANAL OR NEURAL FORAMINAL STENOSIS. Reading Location: [facility] CC: Dr. Sachin Walton DO; Dr. Santhosh Holden MD ~ Audit Director: Signed [facility] 07-27-2024 Telephone encounter Note Prescription Refill [...] Springer LPN July 27, 2024 2:45 PM [facility] 07-27-2024 Miscellaneous Notes Prescription Refill Information [...] 2024 2:45 PM documented in this encounter [facility] 07-22-2024 Telephone encounter Note Prescription Refill [...] Valladares LPN July 22, 2024 10:25 AM [facility] 07-22-2024 Miscellaneous Notes Prescription Refill Information [...] 2024 10:25 AM documented in this encounter [facility] 06-22-2024 Instructions Jovanna Prince MD - 06/22/2024 1:06 PM EDT 1. To schedule the neuropsych testing call: - [facility] Dr. Bravo or Dr. Alfaro [phone] or [phone] - [facility] [phone] option 2 2. Migraine preventative medication topiramate (also called Topamax). - Titration instructions: - Week 1-2: Take 1/2 tablet (25 mg) twice a day - Week 3 and on: take 1 pill twice a day - Stay hydrated on this medicine to prevent kidney stones documented in this encounter [facility] 06-22-2024 Note HNO ID: [id number] Author: JOVANNA PRINCE MD Service: ? Author [...] mg SL tab (more content not included)... [facility] 06-22-2024 History of Present illness [...] memory is worsening - Psychiatrist is Dr. Kathari Headache description: - Aura: Notes possibly seeing [...] chin strap (if indicated) and lifetime supplies ([facility]) DX: KRZYSZTOF G47.33 1 Device 0 [...] Discussed with Patient: YES Jovanna Prince MD [facility] Neurology documented in this encounter [facility] 06-21-2024 Telephone encounter Note Patient requesting refills as follows via [employer]: ELVIN: 01/08/24 NOV: 06/22/24 Requested Prescriptions Pending Prescriptions Disp Refills prochlorperazine (COMPAZINE) 10 mg tablet 20 tablet 1 Sig: Take 1 tablet by mouth two times a day as needed (migraine). Please review and advise. Rebecca Britton MA [facility] 06-21-2024 Miscellaneous Notes Patient requesting refills as follows via Mychart: ELVIN: 01/08/24 NOV: 06/22/24 Requested Prescriptions Pending Prescriptions Disp Refills prochlorperazine (COMPAZINE) 10 mg tablet 20 tablet 1 Sig: Take 1 tablet by mouth two times a day as needed (migraine). Please review and advise. Rebecca Britton MA documented in this encounter [facility] 06-20-2024 Telephone encounter Note The patient [...] Vogt RN June 20, 2024 7:11 PM [facility] 06-20-2024 Miscellaneous Notes The patient has [...] 2024 7:11 PM documented in this encounter [facility] 06-20-2024 Telephone encounter Note [facility] 06-20-2024 Miscellaneous Notes documented in this encounter [facility] 06-08-2024 Telephone encounter Note Prescription Refill [...] Cueva LPN June 08, 2024 10:30 AM [facility] 06-08-2024 Miscellaneous Notes Prescription Refill Information [...] 2024 10:30 AM documented in this encounter [facility] 06-04-2024 Note HNO ID: [id number] Author: LARRYCRYSTAL RODRIGUEZEW, ? Service: ? Author Type: Physician Type: [...] not wearing. She presents to clinic in [facility]. She reports to walking barefoot at [...] 5.0 4.3 - 5.6 % Final Comment: [place] [employer] guidelines indicate that patients with [...] stress disorder) PVD (peripheral vascular disease) ([facility]) Sciatica Shoulder injury Type II or unspecified [...] chin strap (if indicated) and lifetime supplies ([facility]) DX: KRZYSZTOF G47.33 multivit with minerals/lutein (MULTIVITAMIN 50 PLUS ORAL) Take 1 tablet by mouth once daily. COMPOUNDED PRESCRIPTION Diabetic shoes One pair CPAP CPAP with humidification. Mask (per patient preference) optional chin st (more content not included)... [facility] 06-04-2024 History of Present illness Narrative FOLLOW UP PODIATRIC OFFICE VISIT Chief Complaint: This 58 year old who presents for follow up:fracture of right hallux and ulceration of left hallux. Patient presents to clinic for follow-up fracture of right hallux. She has no pain. She has a surgical shoe but she is not wearing. She presents to clinic in [facility]. She reports to walking barefoot at [...] 5.0 4.3 - 5.6 % Final Comment: [place] [employer] guidelines indicate that patients with [...] chin strap (if indicated) and lifetime supplies ([facility]) DX: KRZYSZTOF G47.33 multivit with minerals/lutein [...] Hollie Diana LPN documented in this encounter [facility] 06-03-2024 History of Present illness Narrative [...] PATIENT PRESENTS WITH AN IMPLANTABLE OR ATTACHED APPLICATIONS CHEMIST: No RADIOLOGY DEPARTMENT: Ultrasound PERIPHERAL IV DATA: Not applicable SIGNED BY: Annette Flor RDMS RVT June 03, 2024 2:19 PM documented in this encounter [facility] 06-03-2024 Note HNO ID: [id number] Author: ANNETTE FLOR RDMS Service: ? Author Type: Infant Nanny Type: Progress Notes Filed: 06/03/2024 14:20 Note [...] PATIENT PRESENTS WITH AN IMPLANTABLE OR ATTACHED APPLICATIONS CHEMIST: No RADIOLOGY DEPARTMENT: Ultrasound PERIPHERAL IV DATA: Not applicable SIGNED BY: Annette Flor RDMS RVT June 03, 2024 2:19 PM [facility] 06-03-2024 Instructions Dru Sahu - [...] and/or additional treatments. documented in this encounter [facility] 06-03-2024 Note HNO ID: [id number] Author: HOLLIE DIANA LPN Service: ? Author Type: LICENSED NURSE Type: Progress Notes Filed: 06/04/2024 09:16 Note Text: AMB ROOMING INTAKE FLOWSHEET DATA Pain Pain Level: 1 Pain Location: Toe Description: Sore Frequency: Continuous Intervention/Comfort measure: Reposition, Relaxation Patient presents with: Right Foot - Established Patient, Follow Up, Pain, Fracture Left Great Toe - Diabetic Foot Ulcer, Established Patient Hollie Diana LPN [facility] 06-03-2024 History of Present illness [...] PATIENT PRESENTS WITH AN IMPLANTABLE OR ATTACHED APPLICATIONS CHEMIST: No RADIOLOGY DEPARTMENT: General X-ray: Exam(s) Completed: Lower Extremity X-Ray(s): Toes, Right, GREAT TOE ONLY PERIPHERAL IV DATA: Not applicable SIGNED BY: JH Aguirre) June 03, 2024 1:31 PM documented in this encounter [facility] 06-03-2024 Note HNO ID: [id number] Author: OJANNE MIXON RT(R) Service: ? Author Type: Technologist [...] PATIENT PRESENTS WITH AN IMPLANTABLE OR ATTACHED APPLICATIONS CHEMIST: No RADIOLOGY DEPARTMENT: General X-ray: Exam(s) Completed: Lower Extremity X-Ray(s): Toes, Right, GREAT TOE ONLY PERIPHERAL IV DATA: Not applicable SIGNED BY: Joanne Mixon RT(R) June 03, 2024 1:31 PM [facility] 06-02-2024 Note HNO ID: [id number] Author: ROS ORTIZ OD Service: ? Author Type: GOLD LEAF LABORER Type: Progress Notes Filed: 06/02/2024 15:10 Note Text: 1. Type 2 diabetes mellitus without retinopathy (HCC) (Primary) Risk of diabetic changes and vision loss can be minimized by tight control of blood sugar, blood pressure, and cholesterol levels. Educated patient to continue care with primary care doctor and/or still photographer to maintain optimum levels as they are [...] Follow-up in 1 year for TONI Ortiz, SERAFIN June 02, 2024 3:09 PM [facility] 06-02-2024 History of Present illness Narrative 1. Type 2 diabetes mellitus without retinopathy (HCC) (Primary) Risk of diabetic changes and vision loss can be minimized by tight control of blood sugar, blood pressure, and cholesterol levels. Educated patient to continue care with primary care doctor and/or still photographer to maintain optimum levels as they are [...] change Follow-up in 1 year for TONI [place] Ortiz, OD June 02, 2024 3:09 PM documented in this encounter [facility] 05-25-2024 Telephone encounter Note Spoke with patient and informed of results. Transferred to scheduling for ultrasound. Suzanne Mathews MA [facility] 05-25-2024 Miscellaneous Notes Spoke with patient [...] Do renal us. documented in this encounter [facility] 05-24-2024 Telephone encounter Note Voicemail not set up. [facility] 05-23-2024 Telephone encounter Note Message all circuits are busy will need to try again later. [facility] 05-23-2024 Telephone encounter Note Liver is good. Her vit d is slightly low. Would take vit d otc 1000 units a day. Her kidney function is slightly reduced. Make sure drinking adequate fluid. Is slightly anemic. Looks like it might possibly be related to her kidneys Recheck labs in two weeks. Including ifobt. Do renal us. [facility] 05-20-2024 Note HNO ID: [id number] Author: SANTHOSH HOLDEN MD Service: ? Author [...] chin strap (if indicated) and lifetime supplies ([facility]) DX: KRZYSZTOF G47.33 multivit with minerals/lutein [...] Take 200 m (more content not included)... [facility] 05-20-2024 History of Present illness [...] chin strap (if indicated) and lifetime supplies ([facility]) DX: KRZYSZTOF G47.33 multivit with minerals/lutein [...] Anxiety Powers's esophagus Bipolar 1 disorder ([facility]) Dr. Orozco, psychiatry Chronic headaches Coronary-myocardial bridge DDD (degenerative disc disease) Depression 01/05/2015 Essential tremor TK tremor Fibromyalgia GERD (gastroesophageal reflux disease) HTN (hypertension) Hyperlipidemia Hypothyroid Liver fibrosis Mild CAD 08/22/2019 Neuropathy Non-melanoma skin cancer 03/08/2021 Obstructive sleep apnea PTSD (post-traumatic stress disorder) PVD (peripheral vascular disease) ([facility]) Sciatica Shoulder injury Type II or unspecified [...] 6MO-64YR, TRIVALENT (AFLURIA, FLULAVAL, FLUVIRIN, FLUZONE) - [employer] COVID-19 VACCINE AGE 12+ YR (COMIRNATY) 18. Bipolar. Stable, per psych Santhosh Holden MD documented in this encounter [facility] 05-17-2024 Telephone encounter Note Pt medications through with another medication refill order. [facility] 05-17-2024 Miscellaneous Notes Pt medications through with another medication refill order. documented in this encounter [facility] 05-17-2024 Telephone encounter Note The patient [...] Vogt RN May 17, 2024 8:53 AM [facility] 05-17-2024 Miscellaneous Notes The patient has [...] 2024 8:53 AM documented in this encounter [facility] 05-16-2024 Telephone encounter Note Prescription Refill [...] Springer LPN May 16, 2024 12:41 PM [facility] 05-16-2024 Miscellaneous Notes Prescription Refill Information [...] 2024 12:41 PM documented in this encounter [facility] 05-13-2024 rDu Espinosa - 05/13/2024 1:57 PM EST Right foot skin infection: appears to be improving. Complete antibiotic as scheduled. Right great toenail: apply topical antibiotic for the next 2-3 days or until fully healed. Continue with soaking until fully healed Left great toe wound: nearly healed. Continue with topical antibiotic Repeat xrays in 3 week Follow-up in 3 weeks documented in this encounter [facility] 05-13-2024 Note HNO ID: [id number] Author: DRU SAHU, ? Service: ? Author [...] 5.4 4.3 - 5.6 % Final Comment: [place] [employer] guidelines indicate that patients with HgbA1c in the range 5.7-6.4% are at increased risk for development of diabetes, and intervention by lifestyle modification may be beneficial. HgbA1c greater or equal to 6.5% is considered diagnostic of diabetes. PCP: Santhosh Holden MD PAST MEDICAL HISTORY Diagnosis Date Anxiety Powers's esophagus Bipolar 1 disorder ([facility]) Dr. Orozco, psychiatry Chronic headaches Coronary-myocardial bridge DDD (degenerative disc disease) Depression 01/05/2015 Essential tremor TK tremor Fibromyalgia GERD (gastroesophageal reflux disease) HTN (hypertension) Hyperlipidemia Hypothyroid Liver fibrosis Mild CAD 08/22/2019 Neuropathy Non-melanoma skin cancer 03/08/2021 Obstructive sleep apnea PTSD (post-traumatic stress disorder) PVD (peripheral vascular disease) ([facility]) Sciatica Shoulder injury Type II or unspecified [...] chin strap (if indicated) and lifetime supplies ([facility]) DX: KRZYSZTOF G47.33 multivit with minerals/lutein (MULTIVITAMIN 50 PLUS ORAL) Take 1 tablet by mouth once daily. COMPOUNDED PRESCRIPTION Diabetic shoes One pair CPAP CPAP with humidification. Mask (per patient preference) optional chin strap ( (more content not included)... [facility] 05-13-2024 History of Present illness Narrative FOLLOW UP PODIATRIC OFFICE VISIT Chief Complaint: This 58 year old who presents for follow up:fracture of right great toe Patient presents to clinic for follow-up hallux fracture She does report pain to the right hallux, / Here to get a surgical shoe She [...] 5.4 4.3 - 5.6 % Final Comment: [place] [employer] guidelines indicate that patients with [...] chin strap (if indicated) and lifetime supplies ([facility]) DX: KRZYSZTOF G47.33 multivit with minerals/lutein [...] a few weeks. Xray prior to appointment. [facility] 05/05/24 documented in this encounter [facility] 05-13-2024 History of Present illness Narrative [...] PATIENT PRESENTS WITH AN IMPLANTABLE OR ATTACHED APPLICATIONS CHEMIST: No RADIOLOGY DEPARTMENT: General X-ray: Exam(s) Completed: Lower Extremity X-Ray(s): Toes, Right, great toe PERIPHERAL IV DATA: Not applicable SIGNED BY: JH Aguirre) May 13, 2024 3:33 PM documented in this encounter [facility] 05-13-2024 Note HNO ID: [id number] Author: JOANNE MIXON RT(R) Service: ? Author [...] PATIENT PRESENTS WITH AN IMPLANTABLE OR ATTACHED APPLICATIONS CHEMIST: No RADIOLOGY DEPARTMENT: General X-ray: Exam(s) Completed: Lower Extremity X-Ray(s): Toes, Right, great toe PERIPHERAL IV DATA: Not applicable SIGNED BY: RT Timothy(R) May 13, 2024 3:33 PM [facility] 05-13-2024 Note HNO ID: [id number] Author: SADE RODRIGUEZ, RN Service: ? Author Type: Registered Nurse [...] weeks. Xray prior to appointment. [facility] 05/05/24 [facility] 05-13-2024 Telephone encounter Note Prescription [...] Valladares LPN May 13, 2024 11:41 AM [facility] 05-13-2024 Miscellaneous Notes Prescription Refill Information [...] 2024 11:41 AM documented in this encounter [facility] 05-13-2024 Telephone encounter Note Prescription Refill [...] Valladares LPN May 13, 2024 11:38 AM [facility] 05-13-2024 Miscellaneous Notes Prescription Refill Information [...] 2024 11:38 AM documented in this encounter [facility] 05-10-2024 Note HNO ID: [id number] Author: ZEENAT JOHNSTON MD Service: ? Author [...] the requesting team. The patient or patient's sales and merchandising representative consented to e-consultation. SIGNATURE: Zeenat Johnston MD PATIENT NAME: Inés Shanks DATE: May 10, 2024 TIME: 11:53 AM [facility] 05-10-2024 History of Present illness [...] the requesting team. The patient or patient's sales and merchandising representative consented to e-consultation. SIGNATURE: Zeenat Johnston MD PATIENT NAME: Inés Shanks DATE: May 10, 2024 TIME: 11:53 AM documented in this encounter [facility] 05-10-2024 Telephone encounter Note Patient will apple picker post op shoe on Thursday05/13/2024 at office visit. Hollie Diana LPN [facility] 05-10-2024 Miscellaneous Notes Patient will apple picker post op shoe on Thursday05/13/2024 at office visit. Hollie Diana LPN Contacted patient to discuss xrays. She finally got back to my [place] message. I would like her to get surgical shoe for fracture of great toe. She is to repeat xrays of right great toe in 2 weeks. Continue with local wound care I attempted to contact patient but no answer. Unable to leave voice mail because her voice mail is yet to be set up. Left mychart message Dru Sahu DPM documented in this encounter [facility] 05-10-2024 Telephone encounter Note Contacted patient to discuss xrays. She finally got back to my [place] message. I would like her to get surgical shoe for fracture of great toe. She is to repeat xrays of right great toe in 2 weeks. Continue with local wound care [facility] 05-06-2024 Telephone encounter Note I attempted to contact patient but no answer. Unable to leave voice mail because her voice mail is yet to be set up. Left mychart message Dru Sahu DPM [facility] 05-06-2024 Telephone encounter Note The following approved medication requests have been transmitted electronically. Requested Prescriptions Pending Prescriptions Disp Refills pantoprazole DR (PROTONIX) 40 mg tablet 180 tablet 1 Sig: Take 1 tablet by mouth two times a day. Nanette Carroll APRN.CNP [facility] 05-06-2024 Miscellaneous Notes The following approved [...] 2024 1:00 PM documented in this encounter [facility] 05-06-2024 Telephone encounter Note Prescription Refill [...] Cueva LPN May 06, 2024 1:00 PM [facility] 05-05-2024 Instructions Dru Sahu - 05/05/2024 2:03 PM EST Soak your right foot in soap and water x 10 minutes daily Dry thoroughly Apply topical antibiotic and band aide to the toe Follow-up in 1-2 weeks documented in this encounter [facility] 05-05-2024 Note HNO ID: [id number] Author: DRU SAHU, ? Service: ? Author [...] 5.4 4.3 - 5.6 % Final Comment: [place] [employer] guidelines indicate that patients with [...] chin strap (if indicated) and lifetime supplies ([facility]) DX: KRZYSZTOF G47.33 multivit with minerals/lutein (MULTIVITAMIN 50 PLUS ORAL) Take 1 tablet by mouth once daily. COMPOUNDED PRESCRIPTION Diabetic shoes One pair CPAP CPAP with humidification. Mask (per patient preference) optional chin (more content not included)... [facility] 05-05-2024 History of Present illness [...] 5.4 4.3 - 5.6 % Final Comment: [place] [employer] guidelines indicate that patients with [...] stress disorder) PVD (peripheral vascular disease) ([facility]) Sciatica Shoulder injury Type II or unspecified [...] chin strap (if indicated) and lifetime supplies ([facility]) DX: KRZYSZTOF G47.33 multivit with minerals/lutein [...] Hollie Diana LPN documented in this encounter [facility] 05-05-2024 Note HNO ID: [id number] Author: HOLLIE DIANA LPN Service: ? Author Type: LICENSED NURSE Type: Progress Notes Filed: 05/05/2024 14:08 Note Text: AMB ROOMING INTAKE FLOWSHEET DATA Pain Pain Level: 1 Pain Location: Toe Description: Sore Duration Amount of Time: 1 Duration Units: Months Frequency: Intermittent Intervention/Comfort measure: Relaxation, Reposition, Medication Patient presents with: Right Foot - Established Patient, Follow Up Hollie Diana LPN [facility] 04-25-2024 Telephone encounter Note Prescription [...] Cueva LPN April 25, 2024 2:56 PM [facility] 04-25-2024 Miscellaneous Notes Prescription Refill Information [...] 2024 2:56 PM documented in this encounter [facility] 03-29-2024 Note HNO ID: [id number] Author: SADE RODRIGUEZ RN Service: ? Author [...] Visit completed when applicable. Sade Rodriguez RN [facility] 03-29-2024 History of Present illness [...] stress disorder) PVD (peripheral vascular disease) ([facility]) Sciatica Shoulder injury Type II or unspecified [...] declined. Dru Sahu DPM Podiatry [address] [facility] [address] Dept: [phone] Dept AMB ROOMING INTAKE FLOWSHEET DATA Pain [...] neuropathy. [facility] 11/19/22 documented in this encounter [facility] 03-29-2024 Instructions Sade Rodriguez RN - [...] as well if you have any questions/concerns [phone], ask for Podiatry Nurse documented in this encounter [facility] 03-29-2024 Note HNO ID: [id number] Author: DRU SAHU, ? Service: ? Author [...] chin strap (if indicated) and lifetime supplies ([facility]) DX: KRZYSZTOF G47.33 multivit with minerals/lutein [...] COMPOUNDED PRESCRIPTION EX-LARG (more content not included)... [facility] 03-29-2024 Note HNO ID: [id number] Author: SADE RODRIGUEZ RN Service: ? Author [...] with a history of neuropathy. [facility] 11/19/22 [facility] 03-16-2024 Note Patient Outreach ([facility]) ---- INÉS SHANKS ([id number]) 1965 F FNS Date Time Provider Department [...] for screening mammogram for breast cancer [Z12.31] Order(s):[facility] SCREENING [facility] [[id number]] Order #: [id number] FUTURE Prescriptions as of 03/21/2024 - gabapentin [...] chin strap (if indicated) and lifetime supplies ([facility]) DX: KRZYSZTOF G47.33 - multivit with [...] reflux disease) [K21.9] (more content not included)... [facility] 02-19-2024 Telephone encounter Note Prescription [...] Katz LPN February 19, 2024 7:29 AM [facility] 02-19-2024 Miscellaneous Notes Prescription Refill Information [...] 2024 7:29 AM documented in this encounter [facility] 02-17-2024 Telephone encounter Note ELVIN:05/08/2023 Teofilo NOV: None scheduled [facility] 02-17-2024 Miscellaneous Notes ELVIN:05/08/2023 Teofilo NOV: None scheduled documented in this encounter [facility] 01-29-2024 Telephone encounter Note Pharmacy requesting refills as follows via ERAR: ELVIN: 01/08/24 NOV: 06/22/24 Requested Prescriptions Pending Prescriptions Disp Refills carbidopa-levodopa (SINEMET) 25-100 mg per tablet 270 tablet 1 Sig: Take 1 tablet by mouth three times a day. Please review and advise. Rebecca Britton MA [facility] 01-29-2024 Miscellaneous Notes Pharmacy requesting refills as follows via ERAR: ELVIN: 01/08/24 NOV: 06/22/24 Requested Prescriptions Pending Prescriptions Disp Refills carbidopa-levodopa (SINEMET) 25-100 mg per tablet 270 tablet 1 Sig: Take 1 tablet by mouth three times a day. Please review and advise. Rebecca Britton MA documented in this encounter [facility] 01-19-2024 Telephone encounter Note Prescription Refill [...] Fontaine MA January 19, 2024 3:58 PM [facility] 01-19-2024 Miscellaneous Notes Prescription Refill Information [...] 2024 3:58 PM documented in this encounter [facility] 01-08-2024 Instructions Jovanna Prince MD - 01/08/2024 11:42 AM EDT I see signs of mixed tremor today - some from lurasidone, some from a history of trauma (psychological or functional tremor), and some from other factors. I wouldn't change your medication today but will write to your psychiatrist about things. documented in this encounter [facility] 01-08-2024 Note HNO ID: [id number] Author: JOVANNA PRINCE MD Service: ? Author [...] two times a (more content not included)... [facility] 01-08-2024 History of Present illness [...] chin strap (if indicated) and lifetime supplies ([facility]) DX: KRZYSZTOF G47.33 1 Device 0 [...] Discussed with Patient: n/a Jovanna Prince MD [facility] Neurology documented in this encounter [facility] 01-06-2024 Telephone encounter Note Prescription Refill [...] Valladares LPN January 06, 2024 8:30 AM [facility] 01-06-2024 Miscellaneous Notes Prescription Refill Information [...] 2024 8:30 AM documented in this encounter [facility] 12-25-2023 Note HNO ID: [id number] Author: DRU COLLADO MD Service: ? Author Type: Physician Type: Progress Notes Filed: 12/25/2023 11:07 Note Text: ARANZA Orellana Workman is a 58 year [...] physician via mail or electronic medical record. [facility] 12-25-2023 History of Present illness [...] electronic medical record. documented in this encounter [facility] 12-25-2023 Instructions MirJose AUD - 12/25/2023 9:46 AM EDT Images from the original note were not included. [facility] [place] Section of Audiology Thank you for trusting the [facility] Audiology department with your hearing healthcare [...] Medicaid. Thank you for trusting and choosing [facility] with your hearing care needs. Please do not hesitate to reach out with any questions or concerns. Sincerely, .ta2 documented in this encounter [facility] 12-25-2023 Note HNO ID: [id number] Author: JOSE MIR AUD Service: ? Author Type: New Product Trainer Type: Progress Notes Filed: 12/25/2023 10:21 Note Text: [facility] [place] AUDIOLOGIC EVALUATION REPORT Name: Inés Shanks CC#: [id number] Date of Service: 12/25/2023 Date of : 1965 Age: [age] year old Referred by: Dru Collado MD Referred for: Evaluation of suspected change in hearing, tinnitus, or balance. Referral documented: In an order in [facility] Patient's major complaints: Hearing loss: asking [...] evaluation of middle ear function. CPT code: 86056 RIGHT EAR: Did not test. LEFT EAR: Did not test. ACOUSTIC REFLEXES Description of procedure: This test is an objective measure of auditory and facial nerve pathways. CPT code: 37375, 64242 RIGHT EAR PROBE EAR: (ipsi right stimulus [...] bone conduction and speech recognition testing. CPT code:05807 RIGHT EAR: Hearing Sensitivity: Mild SNHL Word [...] hearing aids for individuals who have Medicaid. Odilia Maurice, [facility] New Product Trainer copied to: Dru Collado MD ROJO Abbrev- iation Definition Degree of hearing sensitivity dB range WNL within normal limits WNL 0 - 20 SNHL sensorineural hearing loss Mild 20-40 CHL conductive hearing loss Moderate 40-55 MHL mixed hearing loss Moderately-Severe 55-70 WRS word recognition score Severe 70-90 ME middle ear Profound 90 + TM tympanic membrane [facility] 12-25-2023 History of Present illness Narrative [facility] [place] AUDIOLOGIC EVALUATION REPORT Name: Inés Shanks [facility]#: [id number] Date of Service: 12/25/2023 Date of : 1965 Age: [age] year old Referred by: Dru Collado MD Referred for: Evaluation of suspected change in hearing, tinnitus, or balance. Referral documented: In an order in [facility] Patient's major complaints: Hearing loss: asking [...] evaluation of middle ear function. CPT code: 65343 RIGHT EAR: Did not test. LEFT EAR: Did not test. ACOUSTIC REFLEXES Description of procedure: This test is an objective measure of auditory and facial nerve pathways. CPT code: 74129, 08696 RIGHT EAR PROBE EAR: (ipsi right stimulus [...] bone conduction and speech recognition testing. CPT code:23792 RIGHT EAR: Hearing Sensitivity: Mild SNHL Word [...] hearing aids for individuals who have Medicaid. Odilia Maurice, [facility] New Product Trainer copied to: Dru Collado MD ROJO Abbrev- iation Definition Degree of hearing sensitivity dB range WNL within normal limits WNL 0 - 20 SNHL sensorineural hearing loss Mild 20-40 CHL conductive hearing loss Moderate 40-55 MHL mixed hearing loss Moderately-Severe 55-70 WRS word recognition score Severe 70-90 ME middle ear Profound 90 + TM tympanic membrane documented in this encounter [facility] 12-18-2023 Telephone encounter Note Prescription Refill [...] Valladares LPN December 18, 2023 4:30 PM [facility] 12-18-2023 Miscellaneous Notes Prescription Refill Information [...] 2023 4:30 PM documented in this encounter [facility] 12-18-2023 Telephone encounter Note Prescription Refill [...] Valladares LPN December 18, 2023 4:29 PM [facility] 12-18-2023 Miscellaneous Notes Prescription Refill Information [...] 2023 4:29 PM documented in this encounter [facility] [facility] Telephone encounter Note Last office visit 07/03/23, 6 month follow up scheduled for 01/08/24. Please advise. Requested Prescriptions Pending Prescriptions Disp Refills prochlorperazine (COMPAZINE) 10 mg tablet 20 tablet 1 Sig: Take 1 tablet by mouth two times a day as needed (migraine). [facility] 12-01-2023 Miscellaneous Notes Last office visit 07/03/23, 6 month follow up scheduled for 01/08/24. Please advise. Requested Prescriptions Pending Prescriptions Disp Refills prochlorperazine (COMPAZINE) 10 mg tablet 20 tablet 1 Sig: Take 1 tablet by mouth two times a day as needed (migraine). documented in this encounter [facility] 11-20-2023 Telephone encounter Note Prescription Refill [...] not due for refill until next month. message to pt advising of the same. Mayco Valladares LPN November 20, 2023 3:31 PM [facility] 11-20-2023 Miscellaneous Notes Prescription Refill Information [...] to pt advising of the same. Mayco aVlladares LPN November 20, 2023 3:31 PM documented in this encounter [facility] 11-16-2023 Telephone encounter Note Prescription Refill [...] Katz LPN November 16, 2023 3:01 PM [facility] 11-16-2023 Miscellaneous Notes Prescription Refill Information [...] 2023 3:01 PM documented in this encounter [facility] 11-11-2023 Telephone encounter Note Prescription Refill [...] Valladares LPN November 11, 2023 11:21 AM [facility] 11-11-2023 Miscellaneous Notes Prescription Refill Information [...] 2023 11:21 AM documented in this encounter [facility] 11-11-2023 Telephone encounter Note Prescription Refill [...] Valladares LPN November 11, 2023 11:20 AM [facility] 11-11-2023 Miscellaneous Notes Prescription Refill Information [...] 2023 11:20 AM documented in this encounter [facility] 11-11-2023 Instructions Saumya Vargas APRN.ACQUISITION ASSOCIATE - 11/11/2023 10:23 AM EDT Call the sleep study department to reschedule sleep study. Good morning, we have been unable to reach you in regards to rescheduling you home sleep study please call our office at [phone]. 2. Schedule follow-up with cardiology. 3. Continues the same medications. 4. Get the labwork done. 5. Recheck in 6 months. documented in this encounter [facility] 11-11-2023 Note HNO ID: [id number] Author: SAUMYA VARGAS APRN.CHILO Service: ? Author [...] No date: PVD (peripheral vascular disease) ([facility]) No date: Sciatica No date: Shoulder injury [...] EGD 01/10/2016: ESOPHAGOGASTRODUODENOSCOPY TRANSORAL DIAGNOSTIC Comment: EGD ([facility]) 03/2016: GASTRIC BYPASS HX Comment: gastric sleeve [...] tablet by mouth (more content not included)... [facility] 11-11-2023 History of Present illness [...] No date: PVD (peripheral vascular disease) ([facility]) No date: Sciatica No date: Shoulder injury [...] EGD 01/10/2016: ESOPHAGOGASTRODUODENOSCOPY TRANSORAL DIAGNOSTIC Comment: EGD ([facility]) 03/2016: GASTRIC BYPASS HX Comment: gastric sleeve [...] chin strap (if indicated) and lifetime supplies ([facility]) DX: KRZYSZTOF G47.33 multivit with minerals/lutein [...] as needed for worsening/no improvement. Saumya Vargas APRN.CNP documented in this encounter [facility] 11-10-2023 Telephone encounter Note According to our chart and OARRS, you are on 300 mg 3 x day. You have an appointment tomorrow with Saumya. I will renew the 300 mg 3 x day for 1 month. You will need to discuss further at your appt. [facility] 11-10-2023 Miscellaneous Notes According to our chart and OARRS, you are on 300 mg 3 x day. You have an appointment tomorrow with Saumya. I will renew the 300 mg 3 x day for 1 month. You will need to discuss further at your appt. documented in this encounter [facility] 10-19-2023 Telephone encounter Note Prescription Refill [...] future office visit with this provider/department: Yes, 8/21/24 Requested Prescriptions Pending Prescriptions Disp Refills rosuvastatin (CRESTOR) 5 mg tablet 90 tablet 1 Sig: Take 1 tablet by mouth daily at bedtime. Mayco Valladares LPN October 19, 2023 10:39 AM [facility] 10-19-2023 Miscellaneous Notes Prescription Refill Information [...] 2023 10:39 AM documented in this encounter [facility] 09-16-[address] Tele[address] Please place consult to ENT with Dx reason [facility] 09-16-[address] consult to ENT with Dx reason Please help patient with her ENT consult order. Thank you documented in this encounter [facility] 09-07-2023 Telephone encounter Note Please help patient with her ENT consult order. Thank you [facility] 08-28-2023 Telephone encounter Note Increase this dose to 0.5 mg? [facility] 08-28-2023 Miscellaneous Notes Increase this dose to 0.5 mg? documented in this encounter [facility] 08-24-2023 Telephone encounter Note Patient MyChart [...] like symptoms Zolpidem Other: See Comments (home) [phone] (cell) Last Office Visit Date: 07/24/2023 Last [facility] Visit: Visit date not found Future Appointment: 11/11/2023 The patients preferred pharmacy has been captured for this encounter? yes Request is for script(s) to be escript to pharmacy. Kamryn Fairbanks LPN [facility] 08-24-2023 Miscellaneous Notes Patient MyChart message [...] like symptoms Zolpidem Other: See Comments (home) [phone] (cell) Last Office Visit Date: 07/24/2023 Last [facility] Visit: Visit date not found Future Appointment: 11/11/2023 The patients preferred pharmacy has been captured for this encounter? yes Request is for script(s) to be escript to pharmacy. Kamryn Fairbanks LPN documented in this encounter [facility] 08-18-2023 Telephone encounter Note The following approved medication requests have been transmitted electronically. Requested Prescriptions Pending Prescriptions Disp Refills gabapentin (NEURONTIN) 300 mg capsule 90 capsule 2 Sig: Take 1 capsule by mouth three times a day for 90 days. Nanette Carroll APRN.CONVEYOR OPERATOR [facility] 08-18-2023 Miscellaneous Notes The following approved [...] 2023 8:07 AM documented in this encounter [facility] 08-18-2023 Telephone encounter Note Prescription Refill [...] Leon MA August 18, 2023 8:07 AM [facility] 08-05-2023 Telephone encounter Note Patient has been identified by name and date of : Yes Patient phones for refill(s): Requested Prescriptions Pending Prescriptions Disp Refills lisinopril (ZESTRIL) 5 mg tablet 90 tablet 3 Sig: Take 1 tablet by mouth once daily. Date of last office visit in primary care: 07/24/2023 Date of next office visit in primary care: 11/11/2023 Patient's qyyutnke-si-hgb is waiting at the Pharmacy now for this prescription. She is asking if this can be sent now? Please advise. Thank you. Erlinda Lisa. [facility] 08-05-2023 Miscellaneous Notes Patient has been identified by name and date of : Yes Patient phones for refill(s): Requested Prescriptions Pending Prescriptions Disp Refills lisinopril (ZESTRIL) 5 mg tablet 90 tablet 3 Sig: Take 1 tablet by mouth once daily. Date of last office visit in primary care: 07/24/2023 Date of next office visit in primary care: 11/11/2023 Patient's eszevmib-bq-bsu is waiting at the Pharmacy now for this prescription. She is asking if this can be sent now? Please advise. Thank you. Erlinda Lisa. documented in this encounter [facility] 08-04-2023 Telephone encounter Note Checked with pharmacy, refills available. [facility] 08-04-2023 Miscellaneous Notes Checked with pharmacy, [...] you. Nadia Mcgarry. documented in this encounter [facility] 08-04-2023 Telephone encounter Note Patient has [...] 11/11/2023 Please advise. Thank you. Nadia Mcgarry. [facility] 07-30-2023 Telephone encounter Note Pharmacy verified in [facility] Patient has been identified by name [...] Not applicable Please advise. Olive Mercedes MA [facility] 07-30-2023 Miscellaneous Notes Pharmacy verified in [facility] Patient has been identified by name [...] Olive Mercedes MA documented in this encounter [facility] 07-24-2023 Note HNO ID: [id number] Author: SANTHOSH HOLDEN MD Service: ? Author Type: Physician Type: Progress Notes Filed: 07/24/2023 10:38 Note Text: Patient presents with: Sleep Apnea HPI: Patient presents today for office visit for fepo-hh-aobc for replacement CPAP machine. KRZYSZTOF: Has not [...] chin strap (if indicated) and lifetime supplies ([facility]) DX: KRZYSZTOF G47.33 multivit with minerals/lutein [...] Anxiety Powers's esophagus (more content not included)... [facility] 07-24-2023 History of Present illness Narrative Patient presents with: Sleep Apnea HPI: Patient presents today for office visit for fgqc-lo-fwwb for replacement CPAP machine. KRZYSZTOF: Has not [...] chin strap (if indicated) and lifetime supplies ([facility]) DX: KRZYSZTOF G47.33 multivit with minerals/lutein [...] stress disorder) PVD (peripheral vascular disease) ([facility]) Sciatica Shoulder injury Type II or unspecified [...] Keep next appt. documented in this encounter [facility] 07-20-2023 Telephone encounter Note Concern below forwarded to provider in separate [facility] encounter with same date. DAVID Larios [facility] 07-20-2023 Miscellaneous Notes Concern below forwarded to provider in separate [facility] encounter with same date. DAVID Larios documented in this encounter [facility] 07-15-[address] Lazaro to patient's message in regards to Ozempic med. Already advised patient to schedule a sleep follow up with PCP office. Kasandra Florian MA [facility] 07-15-[address] Lazaro to patient's message in regards to Ozempic med. Already advised patient to schedule a sleep follow up with PCP office. Kasandra Florian MA documented in this encounter [facility] 07-15-2023 Telephone encounter Note SEE OTHER MESSAGE 07/14. Kasandra Florian MA [facility] 07-15-2023 Miscellaneous Notes SEE OTHER MESSAGE 07/14. Kasandra Florian MA documented in this encounter [facility] 07-03-2023 Instructions Jovanna Prince MD - [...] may help tremor. documented in this encounter [facility] 07-03-2023 Note HNO ID: [id number] Author: JOVANNA PRINCE MD Service: ? Author [...] 500 mg tablet (more content not included)... [facility] 07-03-2023 History of Present illness [...] chin strap (if indicated) and lifetime supplies ([facility]) DX: KRZYSZTOF G47.33 1 Device 0 [...] Jacqueline Johnson Assessment/Plan ASSESSMENT & PLAN: Inés Shanks is a 57 year old right-handed female [...] Discussed with Patient: YES Jovanna Prince MD [facility] Neurology documented in this encounter [facility] 06-04-2023 Miscellaneous Notes Patient has been [...] Nanette Katz LPN. documented in this encounter [facility] 06-02-2023 History of Present illness Narrative [...] stress disorder) PVD (peripheral vascular disease) ([facility]) Sciatica Shoulder injury Type II or unspecified [...] chin strap (if indicated) and lifetime supplies ([facility]) DX: KRZYSZTOF G47.33^Disp: 1 Device^Rfl: 0 [...] was reviewed and agreed upon. Rebecca Mireles APRN.CNP documented in this encounter [facility] 06-02-2023 History of Present illness Narrative [...] PATIENT PRESENTS WITH AN IMPLANTABLE OR ATTACHED APPLICATIONS CHEMIST: No RADIOLOGY DEPARTMENT: General X-ray: Exam(s) Completed: Chest X-Ray PERIPHERAL IV DATA: Not applicable SIGNED BY: RT Дмитрий(R) June 02, 2023 3:24 PM documented in this encounter [facility] 06-02-2023 History of Present illness Narrative 1. Type 2 diabetes mellitus without retinopathy (HCC) Risk of diabetic changes and vision loss can be minimized by tight control of blood sugar, blood pressure, and cholesterol levels. Educated patient to continue care with primary care doctor and/or still photographer to maintain optimum levels as they are [...] exam or sooner as needed Ros Ortiz, SERAFIN June 02, 2023 2:33 PM documented in this encounter [facility] 05-25-2023 Miscellaneous Notes Gabapentin renewed. Patient [...] Ruby Benítez LPN. documented in this encounter [facility] 05-22-2023 Miscellaneous Notes Pt saw Dr. Holden on 04/07/23 and per his note, pt to follow up in 6 mons. Booked for 11/10 with Saumya Vargas. Gabapentin renewed. Patient is overdue for follow-up. Multiple comorbidities. Message left on [employer] for her to schedule follow-up appointment. Patient [...] 300 mg capsule documented in this encounter [facility] 05-22-2023 Miscellaneous Notes Metoprolol renewed. Patient [...] you. Maxine Loomis. documented in this encounter [facility] 05-19-2023 Miscellaneous Notes Pantoprazole renewed for Powers's esophagus Patient requesting prescription be sent to [facility] pharmacy not [facility] pharmacy through My Chart message. Patient [...] Dana Adkins RN. documented in this encounter [facility] 05-08-2023 Radha Christie APRN.CNP - 05/08/2023 2:24 PM EST PLAN AND RECOMMENDATIONS: Increase fiber daily Avoid simple, highly processed carbohydrates as much as possible Compression stockings Follow up Dr Gallardo Echocardiogram in our office CONTACT INFORMATION: Radha Andersen APRN.CNP Cardiology Nurse Practitioner Section of Regional Cardiology [facility] Dept of Cardiovascular Medicine [facility] [place] [address] [facility] [address] [place], [place] [address] Office Office documented in this encounter [facility] 05-08-2023 History of Present illness Narrative Images from the original note were not included. [facility] [place] [facility] Department of Cardiovascular Medicine SECTION OF CLINICAL CARDIOLOGY OUTPATIENT VISIT DATE May 08, 2023 OUTPATIENT VISIT TYPE ESTABLISHED PRIMARY CARE PHYSICIAN: Santhosh Holden [address] [place] [address] REFERRING PHYSICIAN: No referring provider defined for [...] Anxiety Powers's esophagus Bipolar 1 disorder ([facility]) Dr. Orozco, psychiatry Chronic headaches Coronary-myocardial bridge [...] chin strap (if indicated) and lifetime supplies ([facility]) DX: KRZYSZTOF G47.33 multivit with minerals/lutein [...] bruising , Easy bleeding Objective PHYSICAL EXAMINATION: [facility] 11/20/2014 (Approximate) General: Well appearing, in no [...] Cardiology Nurse Practitioner Section of Regional Cardiology [place] Dept of Cardiovascular Medicine [facility] [place] [address] [place] [address] Office Office documented in this encounter [facility] 05-04-2023 Miscellaneous Notes Patient is scheduled in June with Dr. Prince for follow up. Requested Prescriptions Pending Prescriptions Disp Refills carbidopa-levodopa (SINEMET) 25-100 mg per tablet 90 tablet 2 Sig: Take 1 tablet by mouth three times a day. documented in this encounter [facility] 05-04-2023 Miscellaneous Notes Patient has been [...] Rx: 02/05/23 #90 w/0. Update pt via [employer] once sent. Please advise. Thank you. Dulce Diallo Ma. documented in this encounter [facility] 04-24-2023 Miscellaneous Notes Patient has been identified by name and date of : Yes, Provider [place] Date 04/24/23 Time 01:19 pm Patient phones [...] Flavia Leon Ma. documented in this encounter [facility] 02-19-2023 Miscellaneous Notes Refill(s) request: Requested [...] mg tablet Class: Normal Route: ORAL Order: [id number] E-Prescribing Status: Receipt confirmed by pharmacy (06/26/2020 3:38 PM EDT) Last visit: Office visit with provider Christy Carmona on date 08/16/20 A&P: ASSESMENT: Inés Shanks is a 54 year old female who is post-op; stable and doing well post-operative course uncomplicated PLAN: May resume normal activities. May resume intercourse. Operative findings and pathology report were reviewed today. Follow up prn Patient expressed understanding. Future appointments: Future Appointments Date Time Provider Department Center 03/11/2023 12:00 PM Jovanna Prince MD [facility] 03/12/2023 8:00 AM Susanna Schneider MD [facility] 04/07/2023 1:40 PM Santhosh Holden MD [facility] 05/08/2023 2:30 PM Radha Andersen APRN.ACQUISITION ASSOCIATE [facility] 05/21/2023 1:00 PM Dru Sahu [place] 06/02/2023 2:15 PM Ros Ortiz, SER[facility]IN [facility] Appointment scheduled: No follow-up visit currently scheduled. Action taken: [employer] message sent - patient not seen since 07/2020 and requesting a refill of postop tylenol. Please call office to speak with office and schedule a visit if refill is needed. Elle Strong RN February 19, 2023 2:12 PM documented in this encounter [facility] 02-18-2023 Miscellaneous Notes Rx request is being addressed in another encounter. Jairon Schneider LPN documented in this encounter [facility] 02-18-2023 Miscellaneous Notes Rs request is being addressed in another encounter. Jairno Schneider LPN documented in this encounter [facility] 02-18-2023 Miscellaneous Notes Last refill Lamictal 06/08/17 Qty: 60 with 5 refills Last refill metformin 11/26/22 Qty: 270 with 1 refill Last refill gabapentin 300 mg 11/19/22 Qty: 90 with 2 refills [facility] 12/05/22 NOV 04/07/23 Jairon Schneider LPN documented in this encounter [facility] 02-06-2023 Note HNO ID: [id number] Author: Farhat Gallardo, DO Service: ? Author Type: Physician Type: Progress Notes Filed: 02/06/2023 3:50 PM Note Text: [facility] SECTION OF [facility] CARDIOLOGY [facility] OUTPATIENT VISIT DATE February 06, 2023 PRIMARY CARE PHYSICIAN: Santhosh Holden [address] [place] [address] HISTORY OF PRESENT ILLNESS: Ms. Shanks is [...] TRANSORAL DIAGNOSTIC 01/10/2015 (more content not included)... [facility] 02-06-2023 History of Present illness Narrative Images from the original note were not included. [facility] SECTION OF REGIONAL CARDIOLOGY [facility] OUTPATIENT VISIT DATE February 06, 2023 PRIMARY CARE PHYSICIAN: Santhosh Holden [address] [place] [id number] HISTORY OF PRESENT ILLNESS: Ms. Shanks is [...] Anxiety Powers's esophagus Bipolar 1 disorder ([facility]) Dr. Orozco, psychiatry Chronic headaches Coronary-myocardial bridge [...] chin strap (if indicated) and lifetime supplies ([facility]) DX: KRZYSZTOF G47.33 multivit with minerals/lutein [...] previous by direct comparison. Farhat Gallardo DO, [facility], [facility] Juvenile Court Judge, [facility] Ambulatory Cardiology Juvenile Court Judge, [facility] Cardiac Rehabilitation Juvenile Court Judge, [facility] Cardiac Rehabilitation Juvenile Court Judge, [facility] Congestive Heart Failure Clinic Juvenile Court Judge, [facility] Ambulatory Cardiology Clinical Assembly Machine Feeder Profressor of Medicine, [facility] [place] of Medicine - [facility] Staff Replenisher, Vu Campbell Department of Cardiovascular Medicine/[facility] [place], [facility] Please note: This note has been produced using speech recognition software and may contain errors related to that system including herminia, punctuation, spelling, words, gender and phrases that may be inappropriate. documented in this encounter [facility] 02-05-2023 Miscellaneous Notes Pt requesting medication below to go to [facility]. Was sent to the wrong pharmacy. Patient has been identified by name and date of : Yes Requested Prescriptions Pending Prescriptions Disp Refills lisinopril (ZESTRIL) 5 mg tablet 90 tablet 0 Sig: Take 1 tablet by mouth once daily. RX INSTRUCTIONS: Patient aware RX will be sent to pharmacy. No need to notify patient. Vicki Barahona documented in this encounter [facility] 01-19-2023 Miscellaneous Notes Patient has been [...] Elle Andrews MA documented in this encounter [facility] 12-11-2022 History of Present illness Narrative HISTORY AND PHYSICAL Inés Orellana Workman 1965 [...] stress disorder) PVD (peripheral vascular disease) ([facility]) Sciatica Shoulder injury Type II or unspecified [...] chin strap (if indicated) and lifetime supplies ([facility]) DX: KRZYSZTOF G47.33 COMPOUNDED PRESCRIPTION Diabetic [...] entered by the nurse and reviewed by mo Nursing Notes: Elisha Tang LPN 12/11/2022 1:27 [...] Sade Alston PA-C documented in this encounter [facility] 12-11-2022 Nurse Note REVIEW OF SYSTEMS: [...] Elisha Tang LPN documented in this encounter [facility] 12-05-2022 History of Present illness Narrative [...] and was to go down to [facility] to get diabetic shoes. Patient would benefit [...] has occasional issues swallowing. Last egd was 2018. Over due for repeat egd. Has increasing [...] chin strap (if indicated) and lifetime supplies ([facility]) DX: KRZYSZTOF G47.33 multivit with minerals/lutein [...] GENERAL SURGERY 18. Coronary artery disease involving [place] heart without angina pectoris, unspecified vessel or [...] DIFFERENTIATION Santhosh Holden documented in this encounter [facility] 12-05-2022 History of Past i llness [...] of this encounter (statuses as of 12/06/2022) [facility] of Past illness Narrative* Problem [...] of this encounter (statuses as of 12/09/2022) [facility] of Past illness Narrative* Problem [...] of this encounter (statuses as of 12/24/2022) [address]15-2023 History of Past illness Narrative* Problem [...] of this encounter (statuses as of 01/19/2023) [facility] Narrative* Problem [...] of this encounter (statuses as of 02/05/2023) [facility] Narrative* Problem [...] of this encounter (statuses as of 02/06/2023) [place] [address]-15-2023 History of Past illness Narrative* Problem Noted [...] of this encounter (statuses as of 02/18/2023) [facility] Narrative* Problem [...] of this encounter (statuses as of 02/18/2023) [facility] Narrative* Problem [...] of this encounter (statuses as of 02/18/2023) [facility] Narrative* Problem [...] of this encounter (statuses as of 02/19/2023) [facility] Narrative* Problem [...] of this encounter (statuses as of 04/24/2023) [facility] Narrative* Problem [...] of this encounter (statuses as of 05/04/2023) [facility] Narrative* Problem [...] of this encounter (statuses as of 05/04/2023) [facility] Narrative* Problem [...] of this encounter (statuses as of 05/08/2023) [facility] Narrative* Problem [...] of this encounter (statuses as of 05/19/2023) [facility] Narrative* Problem [...] of this encounter (statuses as of 05/22/2023) [facility] Narrative* Problem [...] of this encounter (statuses as of 05/22/2023) [facility] of Past illness Narrative* Problem [...] of this encounter (statuses as of 05/26/2023) [facility] Past [facility] Narrative* Problem [...] of this encounter (statuses as of 05/26/2023) [facility] Past illness Narrative* Problem [...] of this encounter (statuses as of 06/03/2023) [facility] Past illness Narrative* Problem [...] of this encounter (statuses as of 06/04/2023) [facility] Miscellaneous Notes* Telephone Encounter - Jacqueline [...] if so place orders. documented in this encounterMem[facility] History of Present illness Narrative* Ros [...] exam or sooner as needed Ros Ortiz, SERAFIN December 01, 2022 3:17 PM documented in this encounterMem[facility] Hospital09-[facility]-2023 Miscellaneous Notes* Telephone Encounter - Amina Burt OA - 11/27/2022 9:25 AM EDT This patient would like a refill for Systane ultra. The medication is pending to be signed. Please advise. OZ Horne documented in this encounterMemorial Hospital09-06-2023 Miscellaneous Notes* Telephone Encounter - J [...] J Luis LOPEZ PA-C documented in this encounterMemorial Hospital08-30-2023 Instructions* Patient Instructions* Dru Sahu - [...] (or decreased sensation in your feet) a pre algebra teacher should always cut your toenails. Be Careful [...] Go to your health care provider or pre algebra teacher to treat these conditions. documented in this encounterMemorial Hospital08-30-2023 History of Present illness Narrative* Dru [...] (H) 4.3 - 5.6 % Final Comment: [place] Diabetes Association guidelines indicate that patients with [...] chin strap (if indicated) and lifetime supplies ([facility]) DX: KRZYSZTOF G47.33 multivit with minerals/lutein [...] Pain Hollie Diana LPN documented in this encounterMemorial Hospital08-30-2023 Miscellaneous Notes* Telephone Encounter - Ivette Jerome RN - 11/19/2022 9:25 AM EDT Verbal ok given to Jaya with [facility]. Ivette Jerome RN * Telephone Encounter - Santhosh Holden MD - 11/19/2022 9:15 AM EDT Ok * Telephone Encounter - Ivette Jerome RN - 11/19/2022 9:10 AM EDT Jaya with [facility] Pharmacy calls to verify that provider wants both Gabapentin 600 mg and 300 mg prescriptions filled. Jaya requests verbal confirmation be called back to [phone] Holden. Ivette Jerome RN documented in this encounterMemorial Hospital08-30-2023 Miscellaneous Notes* Telephone Encounter - Melissa [...] advise. Melissa Cueva LPN documented in this [facility]08-18-20[facility] Instructions* Patient Instructions* Jovanna Prince MD [...] movements (dyskinesia). Breakfast Lunch Dinner Week 1 /2 /2 /2 Week 2 documented in this [facility] History of Present illness Narrative* Jovanna [...] chin strap (if indicated) and lifetime supplies ([facility]) DX: KRZYSZTOF G47.33 1 Device 0 [...] Jacqueline Johnson Assessment/Plan ASSESSMENT & PLAN: Inés Shanks is a 57 year old right-handed female [...] Discussed with Patient: YES Jovanna Prince MD [facility] documented in this encounterMem[facility] Hospital08-15-2023 Miscellaneous Notes* Telephone Encounter - Martha [...] Thank you. DAVID Larios documented in this encounterMemorial Hospital08-09-2023 History of Present illness Narrative* Teresa Araiza APRN.CHILO - 10/29/2022 3:11 PM EDT [facility] [...] treatment. She verbalized understanding. Report sent to [facility] via [facility]. Teresa Araiza APRN.CIHLO documented in this encounterMemorial Hospital08-07-2023 Miscellaneous Notes* Telephone Encounter - Elle [...] 12/05/22 Elle Andrews MA documented in this encounterMemorial Hospital07-26-2023 History of Present illness Narrative* Hollie [...] chin strap (if indicated) and lifetime supplies ([facility]) DX: KRZYSZTOF G47.33 multivit with minerals/lutein [...] 01/10/2015 EGD ESOPHAGOGASTRODUODENOSCOPY TRANSORAL DIAGNOSTIC 01/10/2016 EGD ([facility]) GASTRIC BYPASS HX 03/2016 gastric sleeve HYSTERECTOMY, [...] needs to improveprior to any surgery. Dru Sahu DPM Podiatry [address] [facility] [address] Dept: [phone] Dept * Sade Rodriguez RN - 10/15/2022 [...] pain, anddiabetic foot exam. documented in this encounterMemorial Hospital07-26-2023 Instructions* Patient Instructions* Dru Sahu - 10/15/2022 2:32 PM EDT Ambulate in post-op shoe Use walker or cane for balance Follow-up xray in 1 month documented in this encounterMemorial Hospital07-26-2023 History of Present illness Narrative* Aranza Yoon RT([place]) - 10/15/2022 1:40 PM EDT Radiology Service [...] 15, 2022 1:31 PM documented in this encounterMemorial Hospital07-11-2023 Miscellaneous Notes* Telephone Encounter - Brittany Joshua Ma - 09/30/2022 10:36 AM EDT Images from the original note were not included. PA approved * Telephone Encounter - Brittany Joshua Ma - 09/30/2022 10:29 AM EDT Received fax PA for 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 thyroid Prior Authorization has been completed online at [employer] for 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 thyroid, will await response. [id number] Please keep encounter open until final decision has been received and documented from insurance company. Brittany Joshua MA documented in this encounterMemorial Hospital07-06-2023 Miscellaneous Notes* Telephone Encounter - Nanette [...] you. Nanette Katz LPN documented in this encounterMemorial Hospital06-30-2023 Miscellaneous Notes* Telephone Encounter - Erum Lopez RN - 09/19/2022 10:17 AM EDT Rx renewal declined. Not appropriate. ELVIN 08/16/20 post op. Erum Lopez RN September 19, 2022 10:19 AM documented in this encounterMemorial Hospital06-27-2023 Miscellaneous Notes* Telephone Encounter - Nanette [...] you. Nanette Katz LPN documented in this encounterMemorial Hospital06-14-2023 Miscellaneous Notes* Telephone Encounter - Rebecca Britton - 09/03/2022 10:52 AM EDT 3rd attempt to reach patient to check in and follow up on her message. [phone] voicemail box not set up; cannot leave message. Patient has read [place] message. * Telephone Encounter - Rebecca Britton - 08/29/2022 12:03 PM EDT 2nd attempt to reach patient to check in and follow up on her message. [phone] voicemail box not set up; cannot leave message. * Telephone Encounter - Radha Cagle RN - 08/27/2022 2:02 PM EDT Called patient to check in and follow up on her message. [phone] voicemail box not set up; cannot leave message. documented in this encounterMemorial Hospital06-07-2023 Miscellaneous Notes* Telephone Encounter - Pina [...] patient. Pina Springer LPN documented in this encounterMemorial Hospital05-16-2023 Miscellaneous Notes* Telephone Encounter - Elle [...] 12/05/22 Elle Andrews MA documented in this encounterMemorial Hospital05-09-2023 Miscellaneous Notes* Telephone Encounter - Nanette [...] you. Nanette Katz LPN documented in this encounterMemorial Hospital04-27-2023 Miscellaneous Notes* Telephone Encounter - Melissa [...] by mouth at bedtime as needed. ELVIN-05/29/22 Labs-05/21/22Jan-12/05/22 Please review and advise. Melissa Cueva LPN documented in this encounterMemorial Hospital04-03-2023 Miscellaneous Notes* Telephone Encounter - Mayco Valladares LPN - 06/23/2022 9:35 AM EDT Patient phones requesting refills as follows: Requested Prescriptions Pending Prescriptions Disp Refills gabapentin (NEURONTIN) 300 mg capsule 90 capsule 2 Sig: Take 1 capsule by mouth three times daily for 30 days. [facility] 05/29/22 12/05/22 Please review and advise. Mayco Valladares LPN documented in this encounterMemorial Hospital04-03-2023 Miscellaneous Notes* Telephone Encounter - Mayco Valladares LPN - 06/23/2022 9:34 AM EDT Patient phones requesting refills as follows: Requested Prescriptions Pending Prescriptions Disp Refills ferrous sulfate 325 mg (65 mg iron) tablet 60 tablet 5 Sig: Take 1 tablet by mouth twice daily with meals. [facility] 05/29/22 12/05/22 Please review and advise. Mayco Valladares LPN documented in this encounterMemorial Hospital03-17-2023 Miscellaneous Notes* Telephone Encounter - Dulce Diallo Ma - 06/06/2022 12:04 PM EDT The Daily [employer] message sent to pt notifying her of [...] lipids in three months documented in this encounterMemorial Hospital03-17-2023 Miscellaneous Notes* Letter - Mammography Coordinator - 06/06/2022 10:56 AM EDT June 10, 2022 PID: [id number] Inés Shanks [address] [place] [address] Dear Ms. Shanks, We are pleased to [...] report [facility] and are available for your continuing care. Thank you for allowing us to help in meeting your health care needs. Sincerely, Dr. Bassett Interpreting Radiologist [facility] (Normal over 40) documented in this encounterMemorial Hospital03-17-2023 History of Present illness Narrative* Holli Sands, RT(R) - 06/06/2022 9:50 AM EDT Radiology [...] 06, 2022 9:35 AM documented in this encounterMemorial Hospital03-10-2023 History of Present illness Narrative* Ros Ortiz, OD - 05/30/2022 3:08 PM EST 1. Type 2 diabetes mellitus without retinopathy (HCC) Risk of diabetic changes and vision loss can be minimized by tight control of blood sugar, blood pressure, and cholesterol levels. Educated patient to continue care with primary care doctor and/or still photographer to maintain optimum levels as they are [...] months for dry eye follow-up Ros Ortiz, SERAFIN May 30, 2022 3:08 PM documented in this encounterMemorial Hospital03-10-2023 Instructions* Patient Instructions* Ros Ortiz, OD - 05/30/2022 3:08 PM EST Use Systane Complete or Refresh Relieva 2-3 times daily Use Systane, Refresh or Blink gel nightly before bed in both eyes documented in this encounterMemorial Hospital03-10-2023 Miscellaneous Notes* Telephone Encounter - Flavia [...] pharmacy. No need to notify patient. Flavia Johndale Herrera documented in this encounterMemorial Hospital03-09-2023 History of Present illness Narrative* Aranza Yoon RT(R) - 05/29/2022 11:20 AM EST Radiology Service Progress Note PATIENT NAME: Iéns Shanks DATE OF SERVICE: May 29, 2022 [...] IV DATA: Not applicable SIGNED BY: RT Дмитрий([place]) May 29, 2022 11:21 AM documented in this encounterMemorial Hospital03-09-2023 History of Present illness Narrative* Santhosh [...] Abs Lymph 1.00 - 4.00 k/uL 2.57 [place]% % 5.1 Abs [place] <0.87 k/uL 0.38 [place]% % 1.2 Abs [...] chin strap (if indicated) and lifetime supplies ([facility]) DX: KRZYSZTOF G47.33 multivit with minerals/lutein [...] Anxiety Powers's esophagus Bipolar 1 disorder ([facility]) Dr. Orozco, psychiatry Chronic headaches Coronary-myocardial bridge DDD (degenerative disc disease) Depression 01/05/2015 Essential tremor TK tremor Fibromyalgia GERD (gastroesophageal reflux disease) HTN (hypertension) Hyperlipidemia Hypothyroid Liver fibrosis Mild CAD 08/22/2019 Neuropathy Non-melanoma skin cancer 03/08/2021 Obstructive sleep apnea PTSD (post-traumatic stress disorder) PVD (peripheral vascular disease) ([facility]) Sciatica Shoulder injury Type II or unspecified [...] immunization - ICD9: V03.89, ICD10: Z23 - [employer] COVID-19 BIVALENT BOOSTER VACCINE, AGE 12+ YR [...] Z23 - PNEUMOCOCCAL VACCINE (PREVNAR 20) - [employer] COVID-19 BIVALENT BOOSTER VACCINE, AGE 12+ YR Santhosh Holden documented in this encounterMemorial Hospital03-03-2023 Miscellaneous Notes* Telephone Encounter - Pina Springer LPN - 05/23/2022 12:54 PM EST Scheduled 05/29/22 documented in this encounterMemorial Hospital02-16-2023 Miscellaneous Notes* Telephone Encounter - Trina Ramirez LPN - 05/08/2022 3:14 PM EST Attempted to reach pt by phone without success. Sent a [employer] message with information listed below. Trina Ramirez [...] advise. Mayco Valladares LPN documented in this encounterMemorial Hospital02-14-2023 Miscellaneous Notes* Telephone Encounter - Jarad Robledo APRN.CNP - 05/06/2022 11:15 AM EST The following approved medication requests have been transmitted electronically. Requested Prescriptions Pending Prescriptions Disp Refills lisinopril (ZESTRIL, PRINIVIL) 5 mg tablet 90 tablet 0 Sig: Take 1 tablet by mouth once daily. Jarad Robledo APRN.CNP * Telephone Encounter - Radha Lisa - 05/06/2022 10:44 AM EST Pharmacy verified in [facility] Patient has been identified by name [...] 120.2 kg (265 lb) Please advise. Radha Lisa documented in this encounterMemorial Hospital02-06-2023 Miscellaneous Notes* Telephone Encounter - Ivette [...] you. Ivette Jerome RN documented in this encounterMemorial Hospital01-04-2023 Miscellaneous Notes* Telephone Encounter - Mayco Valladares LPN - 03/26/2022 11:11 AM EST Patient phones requesting refills as follows: Requested Prescriptions Pending Prescriptions Disp Refills gabapentin (NEURONTIN) 300 mg capsule 90 capsule 2 Sig: Take 1 capsule by mouth three times daily for 30 days. ELVIN 10/07/21 NOV 04/16/22 Please review and advise. Mayco Valladares LPN documented in this encounterMemorial Hospital12-05-2022 History of Present illness Narrative* Dru Jeffriesjennifer - 02/24/2022 9:16 AM EST FOLLOW UP [...] (H) 4.3 - 5.6 % Final Comment: [place] Diabetes Association guidelines indicate that patients with [...] chin strap (if indicated) and lifetime supplies ([facility]) DX: KRZYSZTOF G47.33 COMPOUNDED PRESCRIPTION Diabetic [...] to left 5th toe. documented in this encounterMemorial Hospital11-15-2022 Miscellaneous Notes* Telephone Encounter - Trina Ramirez LPN - 02/04/2022 4:13 PM EST Sent [employer] message asking pt to stop in and [...] you. Trina Ramirez LPN documented in this encounterMemorial Hospital11-11-2022 Miscellaneous Notes* Telephone Encounter - Suzanne Mathews - 01/31/2022 4:10 PM EST Patient sent My Chart message requesting the following refill. Requested Prescriptions Pending Prescriptions Disp Refills rosuvastatin (CRESTOR) 5 mg tablet 90 tablet 1 Sig: Take 1 tablet by mouth daily at bedtime. Patient last appointment: 10/07/2021 Patient Phone numbers: [phone] (home) Request is for script(s) to be escript to pharmacy. Suzanne Mathews documented in this encounterMemorial Hospital11-10-2022 Miscellaneous Notes* Telephone Encounter - Sade [...] you. Sade Vogt RN documented in this encounterMemorial Hospital11-04-2022 History of Present illness Narrative* Dru [...] chin strap (if indicated) and lifetime supplies ([facility]) DX: KRZYSZTOF G47.33 COMPOUNDED PRESCRIPTION Diabetic [...] shoe, FELICIA and walker. documented in this encounterMemorial Hospital10-28-2022 Instructions* Patient Instructions* Dru Sahu - 01/17/2022 1:17 PM EDT Continue to keep the toe bandaged Keep it clean and dry Ok to remove bandage in 3 days. Apply guaze, adaptic and felicia Call if any issues arise Continue with post-op shoe Plan for suture removal next week documented in this encounterMemorial Hospital10-28-2022 History of Present illness Narrative* Dru Sahu - 01/17/2022 1:12 PM EDT This 56 year old presents post op left 5th derotational arthroplasty Pain level: 3/10 Vomiting, fever, chills, shortness of breath: no Pain Control: percocet once daily Weightbearing status: weightbearing in post-op shoe 6.1 (10/11/2021) PAST MEDICAL HISTORY Diagnosis Date Anxiety Powers's esophagus Bipolar 1 disorder ([facility]) Dr. Orozco, psychiatry Chronic headaches Coronary-myocardial bridge DDD (degenerative disc disease) Depression 01/05/2015 Essential tremor TK tremor Fibromyalgia GERD (gastroesophageal reflux disease) HTN (hypertension) Hyperlipidemia Hypothyroid Liver fibrosis Mild CAD 08/22/2019 Neuropathy Non-melanoma skin cancer 03/08/2021 Obstructive sleep apnea PTSD (post-traumatic stress disorder) PVD (peripheral vascular disease) ([facility]) Sciatica Shoulder injury Type II or unspecified [...] chin strap (if indicated) and lifetime supplies ([facility]) DX: KRZYSZTOF G47.33 COMPOUNDED PRESCRIPTION Diabetic [...] Pain Hollie Diana LPN documented in this encounterMemorial Hospital10-21-2022 History of Present illness Narrative* Hollie [...] LPN - 01/10/2022 1:55 PM EDT Per Inés Richards was provided with post op shoe, size [...] chin strap (if indicated) and lifetime supplies ([facility]) DX: KRZYSZTOF G47.33 COMPOUNDED PRESCRIPTION Diabetic [...] Assessment: (Z98.890) Post-operative state (primary encounter diagnosis) Plan: Bandage [...] toe. Hollie Diana LPN documented in this encounterMemorial Hospital10-17-2022 Miscellaneous Notes* Telephone Encounter - Dru Jeffriesjennifer - 01/06/2022 7:50 PM EDT I attempted to contact patient to see how she was doing s/p derotational arthroplasty. No answer. Itried leaving message but her voice mail is not yet set up Dru Sahu DPM documented in this encounterMemorial Hospital10-12-2022 History of Present illness Narrative* Dru Jeffriesjennifer - 01/01/2022 9:48 AM EDT Images from [...] (H) 4.3 - 5.6 % Final Comment: [place] Diabetes Association guidelines indicate that patients with [...] chin strap (if indicated) and lifetime supplies ([facility]) DX: KRZYSZTOF G47.33 cyanocobalamin, vitamin B-12, [...] left foot, limited to breakdown of skin ([facility]) PLAN: Discussed superficial wound of left 5th [...] proceed Antibiotic was prescribed as precaution Dru Sahu DPM * Amari Bryan Ma - 01/01/2022 9:20 AM EDT AMB ROOMING INTAKE FLOWSHEET DATA Risk Screening Do you have concerns about personal safety or safety in the home?: No Pain Pain Level: 5 Pain Location: Toe (left 5th toe) Description: Radiating, Sore Duration Amount of Time: 2 Duration Units: Weeks Frequency: Continuous Intervention/Comfort measure: Medication documented in this encounterMemorial Hospital10-10-2022 Miscellaneous Notes* Telephone Encounter - Pina [...] patient. Elle Nelson Pss documented in this encounterMemorial Hospital09-28-2022 History of Present illness Narrative* RT Дмитрий(R) - 12/18/2021 9:30 AM EDT Radiology Service [...] 18, 2021 9:33 AM documented in this encounterMemorial Hospital09-27-2022 Miscellaneous Notes* Telephone Encounter - Mayco Valladares LPN - 12/17/2021 12:03 PM EDT Patient phones requesting refills as follows: Requested Prescriptions Pending Prescriptions Disp Refills thyroid, pork, (ARMOUR THYROID) 60 mg 60 tablet 5 Sig: Take 1 tablet by mouth twice daily. ELVIN 10/07/21 NOV 04/16/22 Please review and advise. Mayco Valladares LPN documented in this encounterMemorial Hospital09-09-2022 Miscellaneous Notes* Telephone Encounter - Mayco [...] patient. Elle Nelson Pss documented in this encounterMemorial Hospital09-06-2022 Miscellaneous Notes* Telephone Encounter - Jacqueline [...] notify patient. Maxine Loomis documented in this encounterMemorial Hospital09-01-2022 Miscellaneous Notes* Telephone Encounter - Radha J Luis Benavides Pss - 11/21/2021 11:28 AM EDT Pharmacy verified in [facility] Patient has been identified by name [...] (267 lb 9.6 oz) Please advise. Radha J Luis Benavides Pss documented in this encounterMemorial Hospital08-11-2022 Miscellaneous Notes* Telephone Encounter - Jacqueline [...] notify patient. Maxine Loomis documented in this encounterMemorial Hospital08-01-2022 Miscellaneous Notes* Telephone Encounter - Saumya Vargas APRN.CNP - 10/21/2021 4:58 PM EDT Crestor sent to the pharmacy. Please recheck labs in 2 months. The orders are in. Saumya Vargas APRN.CHILO * Telephone Encounter - Ruby Benítez LPN - 10/18/2021 9:02 AM EDT Patient returned call and went over results, notes from Saumya Vargas 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. Patient said she has not had her Amour thyroid medication since before June. Aware prior authorization has been approved and to get rx picked up and started. She plans to have her daughter get the rx for her. Patient said she is willing to take the statin wants rx [facility] to [facility] pharmacy. Aware 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 is out of office until 10/21. * [...] in. Saumya Vargas APRN.CNP documented in this encounterMemorial Hospital07-18-2022 Instructions* Patient Instructions* Saumya Vargas APRN.CNP - 10/07/2021 2:05 PM EDT 1. Return for fasting labs. 2. Continue the same medications. 3. Recheck in 6 months. documented in this encounterMemorial Hospital07-18-2022 History of Present illness Narrative* Saumya [...] chin strap (if indicated) and lifetime supplies ([facility]) DX: KRZYSZTOF G47.33 multivit with minerals/lutein [...] 2 diabetes mellitus without complication, unspecified whether long-term insulin use (HCC) -ICD9: 250.00, ICD10: E11.9 [...] as needed for worsening/no improvement. Saumya Vargas APRN.CHLIO documented in this encounterMemorial Hospital07-15-2022 Instructions* Patient Instructions* Dru Jeffriesjennifer - 10/04/2021 11:29 AM EDT Ulcer is healed Use betadine because of maceration. Use betadine until maceration (white discoloratoin) improves Use toe cap to prevent rubbing documented in this encounterMemorial Hospital07-15-2022 History of Present illness Narrative* Dru Testjennifer - 10/04/2021 11:19 AM EDT FOLLOW UP [...] 5.3 4.3 - 5.6 % Final Comment: [place] Diabetes Association guidelines indicate that patients with [...] chin strap (if indicated) and lifetime supplies ([facility]) DX: KRZYSZTOF G47.33 multivit with minerals/lutein [...] unchanged from previous visit. Non-Invasive Vascular Laboratory [facility] Lower Extremity Arterial Physiology Study Bilateral/Complete Date of service/time: 08/14/2021 1:32:16 PM Name: MS. INÉS Orellana WORKJOSIE Date of : 1965 Age: 55 years [...] Normal at rest. Technologist: Ingrid Holder RVT, [facility] Ordering physician: DRU SAHU Interpreting physician: Evin [...] - Follow Up, Ulcer documented in this encounterMemorial Hospital07-14-2022 Miscellaneous Notes* Telephone Encounter - Erlinda Crenshaw [facility] - 10/03/2021 3:58 PM EDT Inés Orellana Workjosie is calling Santhosh Holden MD today, she is requesting all necessary lab orders areplaced for her upcoming appointment on 10/07/21. She would need an answer today, since tomorrow is already Thursday. Patient has been identified by name and birthdate. Duration of symptoms: N/A Person calling: self Call patient at: on cell [phone] (home) [phone] (cell) Was an appointment scheduled: No Closing statement: Results or non-symptom based questions: [facility], your call will be returned within the next business day. Erlinda Lisa documented in this encounterMemorial Hospital07-14-2022 Miscellaneous Notes* Telephone Encounter - Erlinda [...] pharmacy. No need to notify patient. Erlinda Stuyvesant Pss documented in this encounterMemorial Hospital07-11-2022 Miscellaneous Notes* Telephone Encounter - Carol [...] you. Trina Ramirez LPN documented in this encounterMemorial Hospital06-18-2022 Miscellaneous Notes* Telephone Encounter - Chichi Ray Pss - 09/07/2021 9:09 AM EDT 2nd attempt unable to leave a message to schedule physical with PCP or care steamboat captain for future refills in the next 30 [...] There are no 40 min slots for Navin available before the 30 day time period, is there anyway the patient could see the 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? * Telephone Encounter - Mayco Valladares LPN [...] meds. * Telephone Encounter - Vicki Hamm [facility] [place] 08/29/2021 11:03 AM EDT Patient has [...] No need to notify patient. Vicki Hamm [facility] documented in this encounterMemorial Hospital05-23-2022 Miscellaneous Notes* Telephone Encounter - Santhosh Holden MD - 08/12/2021 1:58 PM EDT She needs check up. * Telephone Encounter - J Luis Cavazos RN - 08/12/2021 1:51 PM EDT Bernardo- [facility]- reports patient is diabetic and not on a statin. Asking pcp, is there a reasonpatient is not on a statin. Please advise Bernardo. documented in [facility] encounter[facility]22 Miscellaneous Notes* Telephone Encounter - Erum [...] AM EDT ----- Message from Teresa Araiza APRN.ACQUISITION ASSOCIATE sent at 08/08/2021 8:40 AM EDT ----- Please advise patient of negative test result (result not viewed in MyChart). documented in this encounterMem[facility] Hospital[facility]-2022 Miscellaneous Notes* Telephone Encounter - Elle Fairbanks - 08/09/2021 12:55 PM EDT 3rd attempt: unable to lvm. Thank you, Elle Fairbanks * Telephone Encounter - Chichi Ray Pss - 08/06/2021 10:00 AM EDT 2 nd [...] Valladares LPN * Telephone Encounter - Vicki Aguayo - 08/02/2021 9:50 AM EDT Patient has been identified by name and date of : Yes Pending Prescriptions Disp Refills LISINOPRIL 5 MG TABLET 90 tablet 0 Sig: Take 1 tablet by mouth once daily. ZAIN: No RX INSTRUCTIONS: Patient aware RX will be sent to pharmacy. No need to notify patient. [facility] Electronically signed by Vicki [employer] [facility] 08/02/2021 9:55 AM EDT documented in this encounterMemorial Hospital05-20-2022 Instructions* Patient Instructions* Dru Sahu - [...] (or decreased sensation in your feet) a pre algebra teacher should always cut your toenails. Be Careful [...] Go to your health care provider or pre algebra teacher to treat these conditions. documented in this encounterMem[facility] Hospital05-20-2022 History of Present illness Narrative* Dru [...] stress disorder) PVD (peripheral vascular disease) ([facility]) Sciatica Shoulder injury Type II or unspecified [...] chin strap (if indicated) and lifetime supplies ([facility]) DX: KRZYSZTOF G47.33 multivit with minerals/lutein [...] Objective: Patient presents to clinic ambulating in [facility] Constitutional: Pt is a well developed 55 [...] 5thtoes rub causing ulcer. documented in this encounterMem[facility] Hospital05-20-[facility]22 History of Present illness Narrative* RT [...] 09, 2021 8:13 AM documented in this encounterMemorial Hospital05-16-2022 History of Present illness Narrative* Poonam Garrido PA-C - 08/05/2021 10:44 AM EDT This note was created using [employer]. Subjective Inés Orellana Workman is a 55 year old female. HPI Patient presents with cough and congestion for 2 weeks. She does have a frontal headache in her forehead as well. No fever. She states that she is vaccinated for COVID-19. She denies vomiting or diarrhea. She states during a coughing fit she does feel short of breath. She has tried NyQuil [id number]. She is a former smoker. Denies history [...] stress disorder) PVD (peripheral vascular disease) ([facility]) Sciatica Shoulder injury Type II or unspecified [...] chin strap (if indicated) and lifetime supplies ([facility]) DX: KRZYSZTOF G47.33 1 Device 0 [...] CORONAVIRUS Poonam Garrido PA-C documented in this encounterMemorial Hospital05-16-2022 History of Present illness Narrative* Aranza Yoon, RT(R) - 08/05/2021 9:00 AM EDT Radiology [...] 05, 2021 9:13 AM documented in this encounterMemorial Hospital05-[facility]-2022 Miscellaneous Notes* Telephone Encounter - Brittany Joshua Ma - 07/25/2021 12:23 PM EDT Reviewed Covermymeds and states patient is not found through [employer]. Tried calling patient but no answer or available voicemail. Patient will need to call [employer] and make sure information is updated and accurate. Brittany Joshua Ma * Telephone Encounter - Brittany Joshua Ma - 07/04/2021 10:15 AM EDT Prior Authorization has been completed online at [employer] for [place] [facility] , will await response. [id number] Please keep encounter open until final decision has been received and documented from insurance company. Brittany Joshua MA documented in this encounterMemorial Hospital04-12-2022 Miscellaneous Notes* Telephone Encounter - Chichi [...] you. Chichi Sena RN documented in this encounterMemorial Hospital12-17-2021 History of Past illness Narrative* Problem [...] of this encounter (statuses as of 01/26/2023) [facility] Narrative* Problem [...] of this encounter (statuses as of 01/26/2023) [facility] Narrative* Problem [...] of this encounter (statuses as of 01/26/2023) [facility] Narrative* Suzy Johnson (Rt), Abel - 02/24/2020 4:30 PM EST Radiology Service [...] 24, 2020 4:40 PM documented in this encounterMemorial Hospital11-21-2018 History of Past illness Narrative* Problem Noted Date Resolved Date Shoulder injury 02/10/2018 05/30/2020 Impingement syndrome of left shoulder 10/23/2017 05/30/2020 Acute pain of left shoulder 10/22/2017/ Morbid obesity due to excess calories 03/31/2016 07/04/2016 Type 2 diabetes mellitus wit h diabetic neuropathy, without long-term current use of insulin 01/08/2016 07/04/2016 documented as of this encounter (statuses as of 07/02/2021) [facility]* Problem Noted Date Resolved Date Shoulder injury 02/10/2018 05/30/2020 Impingement syndrome of left shoulder 10/23/2017 05/30/2020 Acute pain of left shoulder 10/22/201705/21 Morbid obesity due to excess calories 03/31/2016 07/04/2016 Type 2 diabetes mellitus wit h diabetic neuropathy, without long-term current use of insulin 01/08/2016 07/04/2016 documented as of this encounter (statuses as of 07/25/2021) [facility]* Problem Noted Date Resolved Date Shoulder injury 02/10/2018 05/30/2020 Impingement syndrome of left shoulder 10/23/2017 05/30/2020 Acute pain of left shoulder 10/22/201705/21 Morbid obesity due to excess calories 03/31/2016 07/04/2016 Type 2 diabetes mellitus wit h diabetic neuropathy, without long-term current use of insulin 01/08/2016 07/04/2016 documented as of this encounter (statuses as of 08/05/2021) [facility]* Problem Noted Date Resolved Date Shoulder injury 02/10/2018 05/30/2020 Impingement syndrome of left shoulder 10/23/2017 05/30/2020 Acute pain of left shoulder 10/22/201705/21 Morbid obesity due to excess calories 03/31/2016 07/04/2016 Type 2 diabetes mellitus wit h diabetic neuropathy, without long-term current use of insulin 01/08/2016 07/04/2016 documented as of this encounter (statuses as of 08/09/2021) [facility]* Problem Noted Date Resolved Date Shoulder injury 02/10/2018 05/30/2020 Impingement syndrome of left shoulder 10/23/2017 05/30/2020 Acute pain of left shoulder 10/22/201705/21 Morbid obesity due to excess calories 03/31/2016 07/04/2016 Type 2 diabetes mellitus wit h diabetic neuropathy, without long-term current use of insulin 01/08/2016 07/04/2016 documented as of this encounter (statuses as of 08/09/2021) [facility]* Problem Noted Date Resolved Date Shoulder injury 02/10/2018 05/30/2020 Impingement syndrome of left shoulder 10/23/2017 05/30/2020 Acute pain of left shoulder 10/22/201705/21 Morbid obesity due to excess calories 03/31/2016 07/04/2016 Type 2 diabetes mellitus wit h diabetic neuropathy, without long-term current use of insulin 01/08/2016 07/04/2016 documented as of this encounter (statuses as of 08/09/2021) [facility]* Problem Noted Date Resolved Date Shoulder injury 02/10/2018 05/30/2020 Impingement syndrome of left shoulder 10/23/2017 05/30/2020 Acute pain of left shoulder 10/22/201705/21 Morbid obesity due to excess calories 03/31/2016 07/04/2016 Type 2 diabetes mellitus wit h diabetic neuropathy, without long-term current use of insulin 01/08/2016 07/04/2016 documented as of this encounter (statuses as of 08/10/2021) [facility]* Problem Noted Date Resolved Date Shoulder injury 02/10/2018 05/30/2020 Impingement syndrome of left shoulder 10/23/2017 05/30/2020 Acute pain of left shoulder 10/22/201705/21 Morbid obesity due to excess calories 03/31/2016 07/04/2016 Type 2 diabetes mellitus wit h diabetic neuropathy, without long-term current use of insulin 01/08/2016 07/04/2016 documented as of this encounter (statuses as of 08/12/2021) [facility]* Problem Noted Date Resolved Date Shoulder injury 02/10/2018 05/30/2020 Impingement syndrome of left shoulder 10/23/2017 05/30/2020 Acute pain of left shoulder 10/22/201705/21 Morbid obesity due to excess calories 03/31/2016 07/04/2016 Type 2 diabetes mellitus wit h diabetic neuropathy, without long-term current use of insulin 01/08/2016 07/04/2016 documented as of this encounter (statuses as of 09/07/2021) [facility]* Problem Noted Date Resolved Date Shoulder injury 02/10/2018 05/30/2020 Impingement syndrome of left shoulder 10/23/2017 05/30/2020 Acute pain of left shoulder 10/22/201705/21 Morbid obesity due to excess calories 03/31/2016 07/04/2016 Type 2 diabetes mellitus wit h diabetic neuropathy, without long-term current use of insulin 01/08/2016 07/04/2016 documented as of this encounter (statuses as of 10/03/2021) [facility]* Problem Noted Date Resolved Date Shoulder injury 02/10/2018 05/30/2020 Impingement syndrome of left shoulder 10/23/2017 05/30/2020 Acute pain of left shoulder 10/22/201705/21 Morbid obesity due to excess calories 03/31/2016 07/04/2016 Type 2 diabetes mellitus wit h diabetic neuropathy, without long-term current use of insulin 01/08/2016 07/04/2016 documented as of this encounter (statuses as of 10/03/2021) [facility]* Problem Noted Date Resolved Date Shoulder injury 02/10/2018 05/30/2020 Impingement syndrome of left shoulder 10/23/2017 05/30/2020 Acute pain of left shoulder 10/22/201705/21 Morbid obesity due to excess calories 03/31/2016 07/04/2016 Type 2 diabetes mellitus wit h diabetic neuropathy, without long-term current use of insulin 01/08/2016 07/04/2016 documented as of this encounter (statuses as of 10/04/2021) [facility]* Problem Noted Date Resolved Date Shoulder injury 02/10/2018 05/30/2020 Impingement syndrome of left shoulder 10/23/2017 05/30/2020 Acute pain of left shoulder 10/22/201705/21 Morbid obesity due to excess calories 03/31/2016 07/04/2016 Type 2 diabetes mellitus wit h diabetic neuropathy, without long-term current use of insulin 01/08/2016 07/04/2016 documented as of this encounter (statuses as of 10/07/2021) [facility]* Problem Noted Date Resolved Date Shoulder injury 02/10/2018 05/30/2020 Impingement syndrome of left shoulder 10/23/2017 05/30/2020 Acute pain of left shoulder 10/22/201705/21 Morbid obesity due to excess calories 03/31/2016 07/04/2016 Type 2 diabetes mellitus wit h diabetic neuropathy, without long-term current use of insulin 01/08/2016 07/04/2016 documented as of this encounter (statuses as of 10/21/2021) [facility]* Problem Noted Date Resolved Date Shoulder injury 02/10/2018 05/30/2020 Impingement syndrome of left shoulder 10/23/2017 05/30/2020 Acute pain of left shoulder 10/22/201705/21 Morbid obesity due to excess calories 03/31/2016 07/04/2016 Type 2 diabetes mellitus wit h diabetic neuropathy, without long-term current use of insulin 01/08/2016 07/04/2016 documented as of this encounter (statuses as of 11/01/2021) [facility]* Problem Noted Date Resolved Date Shoulder injury 02/10/2018 05/30/2020 Impingement syndrome of left shoulder 10/23/2017 05/30/2020 Acute pain of left shoulder 10/22/201705/21 Morbid obesity due to excess calories 03/31/2016 07/04/2016 Type 2 diabetes mellitus wit h diabetic neuropathy, without long-term current use of insulin 01/08/2016 07/04/2016 documented as of this encounter (statuses as of 11/21/2021) [facility]* Problem Noted Date Resolved Date Shoulder injury 02/10/2018 05/30/2020 Impingement syndrome of left shoulder 10/23/2017 05/30/2020 Acute pain of left shoulder 10/22/201705/21 Morbid obesity due to excess calories 03/31/2016 07/04/2016 Type 2 diabetes mellitus wit h diabetic neuropathy, without long-term current use of insulin 01/08/2016 07/04/2016 documented as of this encounter (statuses as of 11/26/2021) [facility]* Problem Noted Date Resolved Date Shoulder injury 02/10/2018 05/30/2020 Impingement syndrome of left shoulder 10/23/2017 05/30/2020 Acute pain of left shoulder 10/22/201705/21 Morbid obesity due to excess calories 03/31/2016 07/04/2016 Type 2 diabetes mellitus wit h diabetic neuropathy, without long-term current use of insulin 01/08/2016 07/04/2016 documented as of this encounter (statuses as of 11/29/2021) [facility]* Problem Noted Date Resolved Date Shoulder injury 02/10/2018 05/30/2020 Impingement syndrome of left shoulder 10/23/2017 05/30/2020 Acute pain of left shoulder 10/22/201705/21 Morbid obesity due to excess calories 03/31/2016 07/04/2016 Type 2 diabetes mellitus wit h diabetic neuropathy, without long-term current use of insulin 01/08/2016 07/04/2016 documented as of this encounter (statuses as of 12/17/2021) [facility]* Problem Noted Date Resolved Date Shoulder injury 02/10/2018 05/30/2020 Impingement syndrome of left shoulder 10/23/2017 05/30/2020 Acute pain of left shoulder 10/22/201705/21 Morbid obesity due to excess calories 03/31/2016 07/04/2016 Type 2 diabetes mellitus wit h diabetic neuropathy, without long-term current use of insulin 01/08/2016 07/04/2016 documented as of this encounter (statuses as of 12/19/2021) [facility]* Problem Noted Date Resolved Date Shoulder injury 02/10/2018 05/30/2020 Impingement syndrome of left shoulder 10/23/2017 05/30/2020 Acute pain of left shoulder 10/22/201705/21 Morbid obesity due to excess calories 03/31/2016 07/04/2016 Type 2 diabetes mellitus wit h diabetic neuropathy, without long-term current use of insulin 01/08/2016 07/04/2016 documented as of this encounter (statuses as of 12/30/2021) [facility]* Problem Noted Date Resolved Date Shoulder injury 02/10/2018 05/30/2020 Impingement syndrome of left shoulder 10/23/2017 05/30/2020 Acute pain of left shoulder 10/22/201705/21 Morbid obesity due to excess calories 03/31/2016 07/04/2016 Type 2 diabetes mellitus wit h diabetic neuropathy, without long-term current use of insulin 01/08/2016 07/04/2016 documented as of this encounter (statuses as of 01/01/2022) [facility]* Problem Noted Date Resolved Date Shoulder injury 02/10/2018 05/30/2020 Impingement syndrome of left shoulder 10/23/2017 05/30/2020 Acute pain of left shoulder 10/22/201705/21 Morbid obesity due to excess calories 03/31/2016 07/04/2016 Type 2 diabetes mellitus wit h diabetic neuropathy, without long-term current use of insulin 01/08/2016 07/04/2016 documented as of this encounter (statuses as of 01/05/2022) [facility]* Problem Noted Date Resolved Date Shoulder injury 02/10/2018 05/30/2020 Impingement syndrome of left shoulder 10/23/2017 05/30/2020 Acute pain of left shoulder 10/22/201705/21 Morbid obesity due to excess calories 03/31/2016 07/04/2016 Type 2 diabetes mellitus wit h diabetic neuropathy, without long-term current use of insulin 01/08/2016 07/04/2016 documented as of this encounter (statuses as of 01/06/2022) [facility]* Problem Noted Date Resolved Date Shoulder injury 02/10/2018 05/30/2020 Impingement syndrome of left shoulder 10/23/2017 05/30/2020 Acute pain of left shoulder 10/22/201705/21 Morbid obesity due to excess calories 03/31/2016 07/04/2016 Type 2 diabetes mellitus wit h diabetic neuropathy, without long-term current use of insulin 01/08/2016 07/04/2016 documented as of this encounter (statuses as of 01/10/2022) [facility]* Problem Noted Date Resolved Date Shoulder injury 02/10/2018 05/30/2020 Impingement syndrome of left shoulder 10/23/2017 05/30/2020 Acute pain of left shoulder 10/22/2017/ Morbid obesity due to excess calories 03/31/2016 07/04/2016 Type 2 diabetes mellitus wit h diabetic neuropathy, without long-term current use of insulin 01/08/2016 07/04/2016 documented as of this encounter (statuses as of 01/17/2022) [facility]* Problem Noted Date Resolved Date Shoulder injury 02/10/2018 05/30/2020 Impingement syndrome of left shoulder 10/23/2017 05/30/2020 Acute pain of left shoulder 10/22/201705/21 Morbid obesity due to excess calories 03/31/2016 07/04/2016 Type 2 diabetes mellitus wit h diabetic neuropathy, without long-term current use of insulin 01/08/2016 07/04/2016 documented as of this encounter (statuses as of 01/27/2022) [facility] Problem Noted Date Resolved Date Shoulder injury 02/10/2018 05/30/2020 Impingement syndrome of left shoulder 10/23/2017 05/30/2020 Acute pain of left shoulder 10/22/201705/21 Morbid obesity due to excess calories 03/31/2016 07/04/2016 Type 2 diabetes mellitus wit h diabetic neuropathy, without long-term current use of insulin 01/08/2016 07/04/2016 documented as of this encounter (statuses as of 01/30/2022) [facility]* Problem Noted Date Resolved Date Shoulder injury 02/10/2018 05/30/2020 Impingement syndrome of left shoulder 10/23/2017 05/30/2020 Acute pain of left shoulder 10/22/201705/21 Morbid obesity due to excess calories 03/31/2016 07/04/2016 Type 2 diabetes mellitus wit h diabetic neuropathy, without long-term current use of insulin 01/08/2016 07/04/2016 documented as of this encounter (statuses as of 01/31/2022) [facility]* Problem Noted Date Resolved Date Shoulder injury 02/10/2018 05/30/2020 Impingement syndrome of left shoulder 10/23/2017 05/30/2020 Acute pain of left shoulder 10/22/201705/21 Morbid obesity due to excess calories 03/31/2016 07/04/2016 Type 2 diabetes mellitus wit h diabetic neuropathy, without long-term current use of insulin 01/08/2016 07/04/2016 documented as of this encounter (statuses as of 02/04/2022) [facility]* Problem Noted Date Resolved Date Shoulder injury 02/10/2018 05/30/2020 Impingement syndrome of left shoulder 10/23/2017 05/30/2020 Acute pain of left shoulder 10/22/201705/21 Morbid obesity due to excess calories 03/31/2016 07/04/2016 Type 2 diabetes mellitus wit h diabetic neuropathy, without long-term current use of insulin 01/08/2016 07/04/2016 documented as of this encounter (statuses as of 02/24/2022) [facility] Problem Noted Date Resolved Date Shoulder injury 02/10/2018 05/30/2020 Impingement syndrome of left shoulder 10/23/2017 05/30/2020 Acute pain of left shoulder 10/22/201705/21 Morbid obesity due to excess calories 03/31/2016 07/04/2016 Type 2 diabetes mellitus wit h diabetic neuropathy, without long-term current use of insulin 01/08/2016 07/04/2016 documented as of this encounter (statuses as of 03/28/2022) [facility]* Problem Noted Date Resolved Date Shoulder injury 02/10/2018 05/30/2020 Impingement syndrome of left shoulder 10/23/2017 05/30/2020 Acute pain of left shoulder 10/22/2017/ Morbid obesity due to excess calories 03/31/2016 07/04/2016 Type 2 diabetes mellitus wit h diabetic neuropathy, without long-term current use of insulin 01/08/2016 07/04/2016 documented as of this encounter (statuses as of 04/28/2022) [facility] Problem Noted Date Resolved Date Shoulder injury 02/10/2018 05/30/2020 Impingement syndrome of left shoulder 10/23/2017 05/30/2020 Acute pain of left shoulder 10/22/2017/ Morbid obesity due to excess calories 03/31/2016 07/04/2016 Type 2 diabetes mellitus wit h diabetic neuropathy, without long-term current use of insulin 01/08/2016 07/04/2016 documented as of this encounter (statuses as of 05/06/2022) [facility]* Problem Noted Date Resolved Date Shoulder injury 02/10/2018 05/30/2020 Impingement syndrome of left shoulder 10/23/2017 05/30/2020 Acute pain of left shoulder 10/22/201705/21 Morbid obesity due to excess calories 03/31/2016 07/04/2016 Type 2 diabetes mellitus wit h diabetic neuropathy, without long-term current use of insulin 01/08/2016 07/04/2016 documented as of this encounter (statuses as of 05/08/2022) [facility] Problem Noted Date Resolved Date Shoulder injury 02/10/2018 05/30/2020 Impingement syndrome of left shoulder 10/23/2017 05/30/2020 Acute pain of left shoulder 10/22/201705/21 Morbid obesity due to excess calories 03/31/2016 07/04/2016 Type 2 diabetes mellitus wit h diabetic neuropathy, without long-term current use of insulin 01/08/2016 07/04/2016 documented as of this encounter (statuses as of 05/23/2022) [facility] Problem Noted Date Resolved Date Shoulder injury 02/10/2018 05/30/2020 Impingement syndrome of left shoulder 10/23/2017 05/30/2020 Acute pain of left shoulder 10/22/201705/21 Morbid obesity due to excess calories 03/31/2016 07/04/2016 Type 2 diabetes mellitus wit h diabetic neuropathy, without long-term current use of insulin 01/08/2016 07/04/2016 documented as of this encounter (statuses as of 05/29/2022) [facility] Problem Noted Date Resolved Date Shoulder injury 02/10/2018 05/30/2020 Impingement syndrome of left shoulder 10/23/2017 05/30/2020 Acute pain of left shoulder 10/22/201705/21 Morbid obesity due to excess calories 03/31/2016 07/04/2016 Type 2 diabetes mellitus wit h diabetic neuropathy, without long-term current use of insulin 01/08/2016 07/04/2016 documented as of this encounter (statuses as of 05/30/2022) [facility] Problem Noted Date Resolved Date Shoulder injury 02/10/2018 05/30/2020 Impingement syndrome of left shoulder 10/23/2017 05/30/2020 Acute pain of left shoulder 10/22/201705/21 Morbid obesity due to excess calories 03/31/2016 07/04/2016 Type 2 diabetes mellitus wit h diabetic neuropathy, without long-term current use of insulin 01/08/2016 07/04/2016 documented as of this encounter (statuses as of 05/30/2022) [facility] Problem Noted Date Resolved Date Shoulder injury 02/10/2018 05/30/2020 Impingement syndrome of left shoulder 10/23/2017 05/30/2020 Acute pain of left shoulder 10/22/201705/21 Morbid obesity due to excess calories 03/31/2016 07/04/2016 Type 2 diabetes mellitus wit h diabetic neuropathy, without long-term current use of insulin 01/08/2016 07/04/2016 documented as of this encounter (statuses as of 06/06/2022) [facility]* Problem Noted Date Resolved Date Shoulder injury 02/10/2018 05/30/2020 Impingement syndrome of left shoulder 10/23/2017 05/30/2020 Acute pain of left shoulder 10/22/201705/21 Morbid obesity due to excess calories 03/31/2016 07/04/2016 Type 2 diabetes mellitus wit h diabetic neuropathy, without long-term current use of insulin 01/08/2016 07/04/2016 documented as of this encounter (statuses as of 06/11/2022) [facility] of Past illness Narrative* Problem Noted Date Resolved Date Shoulder injury 02/10/2018 05/30/2020 Impingement syndrome of left shoulder 10/23/2017 05/30/2020 Acute pain of left shoulder 10/22/201705/21 Morbid obesity due to excess calories 03/31/2016 07/04/2016 Type 2 diabetes mellitus wit h diabetic neuropathy, without long-term current use of insulin 01/08/2016 07/04/2016 documented as of this encounter (statuses as of 06/18/2022) [facility] History of Past illness Narrative* Problem Noted Date Resolved Date Shoulder injury 02/10/2018 05/30/2020 Impingement syndrome of left shoulder 10/23/2017 05/30/2020 Acute pain of left shoulder 10/22/201705/21 Morbid obesity due to excess calories 03/31/2016 07/04/2016 Type 2 diabetes mellitus wit h diabetic neuropathy, without long-term current use of insulin 01/08/2016 07/04/2016 documented as of this encounter (statuses as of 06/23/2022) [facility] History of Past illness Narrative* Problem Noted Date Resolved Date Shoulder injury 02/10/2018 05/30/2020 Impingement syndrome of left shoulder 10/23/2017 05/30/2020 Acute pain of left shoulder 10/22/201705/21 Morbid obesity due to excess calories 03/31/2016 07/04/2016 Type 2 diabetes mellitus wit h diabetic neuropathy, without long-term current use of insulin 01/08/2016 07/04/2016 documented as of this encounter (statuses as of 06/23/2022) [facility] History of Past illness Narrative* Problem Noted Date Resolved Date Shoulder injury 02/10/2018 05/30/2020 Impingement syndrome of left shoulder 10/23/2017 05/30/2020 Acute pain of left shoulder 10/22/201705/21 Morbid obesity due to excess calories 03/31/2016 07/04/2016 Type 2 diabetes mellitus wit h diabetic neuropathy, without long-term current use of insulin 01/08/2016 07/04/2016 documented as of this encounter (statuses as of 07/17/2022) [facility] of Past illness Narrative* Problem Noted Date Resolved Date Shoulder injury 02/10/2018 05/30/2020 Impingement syndrome of left shoulder 10/23/2017 05/30/2020 Acute pain of left shoulder 10/22/201705/21 Morbid obesity due to excess calories 03/31/2016 07/04/2016 Type 2 diabetes mellitus wit h diabetic neuropathy, without long-term current use of insulin 01/08/2016 07/04/2016 documented as of this encounter (statuses as of 07/29/2022) [facility] of Past illness Narrative* Problem Noted Date Resolved Date Shoulder injury 02/10/2018 05/30/2020 Impingement syndrome of left shoulder 10/23/2017 05/30/2020 Acute pain of left shoulder 10/22/201705/21 Morbid obesity due to excess calories 03/31/2016 07/04/2016 Type 2 diabetes mellitus wit h diabetic neuropathy, without long-term current use of insulin 01/08/2016 07/04/2016 documented as of this encounter (statuses as of 08/06/2022) [facility] of Past illness Narrative* Problem Noted Date Resolved Date Shoulder injury 02/10/2018 05/30/2020 Impingement syndrome of left shoulder 10/23/2017 05/30/2020 Acute pain of left shoulder 10/22/201705/21 Morbid obesity due to excess calories 03/31/2016 07/04/2016 Type 2 diabetes mellitus wit h diabetic neuropathy, without long-term current use of insulin 01/08/2016 07/04/2016 documented as of this encounter (statuses as of 08/27/2022) [facility] of Past illness Narrative* Problem Noted Date Resolved Date Shoulder injury 02/10/2018 05/30/2020 Impingement syndrome of left shoulder 10/23/2017 05/30/2020 Acute pain of left shoulder 10/22/201705/21 Morbid obesity due to excess calories 03/31/2016 07/04/2016 Type 2 diabetes mellitus wit h diabetic neuropathy, without long-term current use of insulin 01/08/2016 07/04/2016 documented as of this encounter (statuses as of 09/03/2022) [facility] of [facility] Narrative* Problem Noted Date Resolved Date Shoulder injury 02/10/2018 05/30/2020 Impingement syndrome of left shoulder 10/23/2017 05/30/2020 Acute pain of left shoulder 10/22/201705/21 Morbid obesity due to excess calories 03/31/2016 07/04/2016 Type 2 diabetes mellitus wit h diabetic neuropathy, without long-term current use of insulin 01/08/2016 07/04/2016 documented as of this encounter (statuses as of 09/16/2022) [facility] Narrative* Problem Noted Date Resolved Date Shoulder injury 02/10/2018 05/30/2020 Impingement syndrome of left shoulder 10/23/2017 05/30/2020 Acute pain of left shoulder 10/22/201705/21 Morbid obesity due to excess calories 03/31/2016 07/04/2016 Type 2 diabetes mellitus wit h diabetic neuropathy, without long-term current use of insulin 01/08/2016 07/04/2016 documented as of this encounter (statuses as of 09/18/2022) [facility] Narrative* Problem Noted Date Resolved Date Shoulder injury 02/10/2018 05/30/2020 Impingement syndrome of left shoulder 10/23/2017 05/30/2020 Acute pain of left shoulder 10/22/201705/21 Morbid obesity due to excess calories 03/31/2016 07/04/2016 Type 2 diabetes mellitus wit h diabetic neuropathy, without long-term current use of insulin 01/08/2016 07/04/2016 documented as of this encounter (statuses as of 09/19/2022) [facility] Narrative* Problem Noted Date Resolved Date Shoulder injury 02/10/2018 05/30/2020 Impingement syndrome of left shoulder 10/23/2017 05/30/2020 Acute pain of left shoulder 10/22/201705/21 Morbid obesity due to excess calories 03/31/2016 07/04/2016 Type 2 diabetes mellitus wit h diabetic neuropathy, without long-term current use of insulin 01/08/2016 07/04/2016 documented as of this encounter (statuses as of 09/25/2022) [facility] Past [facility] Narrative* Problem Noted Date Resolved Date Shoulder injury 02/10/2018 05/30/2020 Impingement syndrome of left shoulder 10/23/2017 05/30/2020 Acute pain of left shoulder 10/22/201705/21 Morbid obesity due to excess calories 03/31/2016 07/04/2016 Type 2 diabetes mellitus wit h diabetic neuropathy, without long-term current use of insulin 01/08/2016 07/04/2016 documented as of this encounter (statuses as of 09/26/2022) [facility] N[facility]ative* Problem [...] of this encounter (statuses as of 09/30/2022) [facility] N[facility]* Problem [...] of this encounter (statuses as of 10/16/2022) [facility] Narrative* Problem [...] of this encounter (statuses as of 10/23/2022) [facility] Narrative* Problem [...] of this encounter (statuses as of 10/27/2022) [facility]* Problem [...] of this encounter (statuses as of 10/30/2022) [facility]* Problem [...] of this encounter (statuses as of 11/05/2022) [facility]* Problem [...] of this encounter (statuses as of 11/08/2022) [facility]* Problem [...] of this encounter (statuses as of 11/19/2022) [facility]* Problem [...] of this encounter (statuses as of 11/19/2022) [facility]* Problem [...] of this encounter (statuses as of 11/21/2022) [facility]* Problem [...] of this encounter (statuses as of 11/27/2022) [facility]* Problem [...] of this encounter (statuses as of 11/27/2022) [facility]* Problem [...] of this encounter (statuses as of 12/02/2022) [facility]* Problem [...] of this encounter (statuses as of 12/02/2022) [facility] Sachin Walton [facility] Note Date/Time August 29, 2024 12:16 pm [facility] Medical Records Department [address] [place] [address] Emergency Department Summary 08/29/24 MR#: [id number] Acct: [id number] Name: INÉS SHANKS Rep #:[id number] : 1965 58 From: Sachin Barber [...] 15 Psych: Cooperative, appropriate mood and affect [facility] Medical History Powers's esophagus Diabetes DJD [...] 60 mg PO BID thyroid 08/2208/28/24 History ([place] Thyroid) nitroglycerin 0.4 mg sublingual 0.4 mg [...] chronic small-vessel ischemic changes . [facility] Cervical Spine CT 08/29/24 09:45 IMPRESSION: DEGENERATIVE CHANGES OF THE CERVICAL SPINE. NO EVIDENCE OF SIGNIFICANT OSSEOUS CENTRAL CANAL OR NEURAL FORAMINAL STENOSIS. Reading Location: [facility]--1 Facial/Sinus 08/29/24 09:45 IMPRESSION: No acute abnormality is seen. Reading Location: [facility]--1 Discharge Plan Triage Chief Complaint: Fall ED [...] tablet 200 mg PO BID thyroid (pork) [[place] Thyroid] 60 MG tablet 60 mg PO [...] in 7 to 10 days Print Language: Urdu Disposition Disposition: Home, Self Care What to do if you have Problems For any increased pain, shortness of breath, bleeding, nausea or vomiting, chestpain, or any unexpected problems, contact your Primary Care Provider. Call [facility] ([phone]) or report to the closest Emergency Room. Call 911 if necessary. 08/29/24 1216 <Electronically signed by Sachin Walton DO> Cosigner Signature (if applicable): CC: Dr. Santhosh Holden MD ~ Signed [facility] Work Phone: Evaluation note* Diagnosis Iron deficiency anemia, unspecified iron deficiency anemia type [facility] Sinobronchitis- Primary Unspecified sinusitis (chronic) [facility] Diagnosis Ulcer of toe of left foot, limited to breakdown of skin (HCC)- Primary Other diabetic neurological complication associated with type 2 diabetes mellitus (HCC) Diminished pulses in lower extremity Other symptoms involving cardiovascular system Onychomycosis Dermatophytosis of nail [facility] Microalbuminuria Proteinuria [facility] Pain Generalized pain [facility] Diagnosis Primary hypertension- Primary Unspecified essential hypertension Hypothyroidism, unspecified type [facility] Diagnosis Ulcer of toe of left foot, limited to breakdown of skin (HCC)- Primary Other diabetic neurological complication associated with type 2 diabetes mellitus (HCC) [facility] Diagnosis Type 2 diabetes mellitus without complication, unspecified whether long-term insulin use (HCC)- Primary Primary hypertension Unspecified essential hypertension Hypothyroidism, unspecified type Microalbuminuria Proteinuria Essential hypertension Unspecified essential hypertension Other hyperlipidemia Iron deficiency anemia, unspecified iron deficiency anemia type Depression, unspecified depression type KRZYSZTOF (obstructive sleep apnea) Obstructive sleep apnea (adult) (pediatric) [facility]* Diagnosis Elevated TSH- Primary Nonspecific abnormal results of thyroid function study Hypothyroidism, unspecified type Other hyperlipidemia [facility]* Diagnosis Microalbuminuria Proteinuria [facility]* Diagnosis Fibromyalgia Mylagia and myositis, unspecified [facility]* Diagnosis Other diabetic neurological complication associated with type 2 diabetes mellitus (HCC) Hammertoe of left foot [facility]* Diagnosis Other diabetic neurological complication associated with type 2 diabetes mellitus (HCC)- Primary Hammertoe of left foot Ulcer of toe of left foot, limited to breakdown of skin (HCC) [facility] Diagnosis Hammertoe of left foot- Primary Hammer toe of left foot [facility] Diagnosis Post-operative state- Primary Other postprocedural status [facility] Diagnosis Post-operative state- Primary Other postprocedural status Hammertoe of left foot [facility]* Diagnosis Post-operative state- Primary Other postprocedural status Hammertoe of right foot [facility] Diagnosis Microalbuminuria Proteinuria [facility]* Diagnosis Hypothyroidism, unspecified type documented [facility]* Diagnosis Hypothyroidism, unspecified type- Primary Type 2 diabetes mellitus with diabetic neuropathy, without long-term current use of insulin (HCC) documented [facility] this encounter [facility]* Diagnosis Hammertoe of right foot- Primary [facility]* Diagnosis Hypothyroidism, unspecified type [facility]* Diagnosis Type 2 diabetes mellitus with diabetic neuropathy, without long-term current use of insulin (HCC)- Primary [facility]* Diagnosis Fibromyalgia Mylagia and myositis, unspecified [facility] Primary hypertension- Primary Unspecified essential [...] unspecified single disease [facility] Diagnosis Type 2 diabetes mellitus with diabetic neuropathy, without long-term current use of insulin ([facility]) [facility] Diagnosis Type 2 diabetes mellitus without retinopathy (HCC)- Primary Type II or unspecified type diabetes mellitus without mention of complication, not stated as uncontrolled Dry eye syndrome of bilateral lacrimal glands Tear film insufficiency, unspecified Combined forms of age-related cataract of both eyes Other and combined forms of senile cataract Presbyopia [facility] Diagnosis Mixed hyperlipidemia- Primary [facility] Diagnosis Abnormal posture- Primary [facility] Diagnosis Iron deficiency anemia, unspecified iron deficiency anemia type [facility] Diagnosis DDD (degenerative disc disease), cervical Degeneration of cervical intervertebral disc Acute pain of left shoulder [facility] Diagnosis Hypothyroidism, unspecified type [facility] Diagnosis Microalbuminuria Proteinuria [facility] Diagnosis Type 2 diabetes mellitus with diabetic neuropathy, without long-term current use of insulin (HCC) [facility]* Diagnosis DDD (degenerative disc disease), cervical Degeneration of cervical intervertebral disc Acute pain of left shoulder [facility]* Diagnosis Post-op pain Other acute postoperative pain [facility]* Diagnosis Iron deficiency anemia, unspecified iron deficiency anemia type documented [facility] this encounter [facility]* Diagnosis Pain- Primary Generalized pain [facility]* Diagnosis Closed displaced fracture of phalanx of lesser toe of right foot, unspecified phalanx, initial encounter- Primary Hammertoe of right foot [facility]* Diagnosis Hypothyroidism, unspecified type DDD (degenerative disc disease), cervical Degeneration of cervical intervertebral disc Acute pain of left shoulder Iron deficiency anemia, unspecified iron deficiency anemia type [facility] noteNo assessment information availableWSelect [facility] Work Phone: Evaluation note* Diagnosis Loss of balance- Primary Other symptoms involving nervous and musculoskeletal systems Multiple falls Personal history of fall [facility]* Diagnosis Microalbuminuria Proteinuria [facility]* Diagnosis Tremor- Primary Abnormal involuntary movements Migraine without aura, intractable, with status migrainosus Migraine without aura, with intractable migraine, so stated, with status migrainosus [facility]* Diagnosis Fibromyalgia Mylagia and myositis, unspecified [facility] Diagnosis Hammertoe of right foot- Primary Other diabetic neurological complication associated with type 2 diabetes mellitus (HCC) [facility]* Diagnosis Type 2 diabetes mellitus without retinopathy (HCC) Type II or unspecified type diabetes mellitus without mention of complication, not stated as uncontrolled [facility]* Diagnosis Type 2 diabetes mellitus with diabetic neuropathy, without long-term current use of insulin (HCC) Iron deficiency anemia, unspecified iron deficiency anemia type [facility]* Diagnosis Dry eye syndrome of bilateral lacrimal glands- Primary Tear film insufficiency, unspecified Type 2 diabetes mellitus without retinopathy (HCC) Type II or unspecified type diabetes mellitus without mention of complication, not stated as uncontrolled Combined forms of age-related cataract of both eyes Other and combined forms of senile cataract Presbyopia [facility] Diagnosis Type 2 diabetes mellitus with diabetic neuropathy, without long-term current use of insulin (HCC)- Primary [facility]* Diagnosis Tremor- Primary Abnormal involuntary movements [...] of colonic polyps Coronary artery disease involving [place] heart without angina pectoris, unspecified vessel or lesion type Memory loss Screening for HIV (human immunodeficiency virus) Special screening examination for other specified viral diseases [facility]* Diagnosis 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 History of colonic polyps Personal history of colonic polyps [facility] Pain Generalized pain [facility] Diagnosis Screening breast examination Breast screening, unspecified [facility]* Diagnosis Microalbuminuria Proteinuria [facility]* Diagnosis 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 Mild CAD Primary hypertension Unspecified essential hypertension Mixed hyperlipidemia KRZYSZTOF (obstructive sleep apnea) Obstructive sleep apnea (adult) (pediatric) [facility]* Diagnosis Type 2 diabetes mellitus with diabetic neuropathy, without long-term current use of insulin (HCC) [facility]* Diagnosis Type 2 diabetes mellitus with diabetic neuropathy, without long-term current use of insulin (HCC) [facility]* Diagnosis Post-op pain Other acute postoperative pain [facility]* Diagnosis Hypothyroidism, unspecified type [facility]* Diagnosis Microalbuminuria Proteinuria [facility]* Diagnosis Tremor Abnormal involuntary movements [facility]* Diagnosis Mild CAD- Primary SOB (shortness of breath) Shortness of breath Primary hypertension Unspecified essential hypertension Other hyperlipidemia [facility]* Diagnosis Powers's esophagus with dysplasia- Primary Powers's esophagus [facility]* Diagnosis Sciatica, unspecified laterality- Primary [facility]* Diagnosis Fibromyalgia Mylagia and myositis, unspecified [facility]* Diagnosis Type 2 diabetes mellitus without retinopathy (HCC)- Primary Type II or unspecified type diabetes mellitus without mention of complication, not stated as uncontrolled Combined forms of age-related cataract of both eyes Other and combined forms of senile cataract Dry eye syndrome of bilateral lacrimal glands Tear film insufficiency, unspecified Presbyopia [facility]* Diagnosis Acute cough- Primary Rhinosinusitis Unspecified sinusitis (chronic) [facility]* Diagnosis Tremor Abnormal involuntary movements [facility]* Diagnosis KRZYSZTOF (obstructive sleep apnea)- Primary Obstructive sleep apnea (adult) (pediatric) [facility]* Diagnosis Tremor- Primary Abnormal involuntary movements Migraine without aura, intractable, with status migrainosus Migraine without aura, with intractable migraine, so stated, with status migrainosus [facility]* Diagnosis Tremor Abnormal involuntary movements [facility]* Diagnosis Type 2 diabetes mellitus with diabetic neuropathy, without long-term current use of insulin (HCC)- Primary [facility]* Diagnosis Microalbuminuria Proteinuria [facility]* Diagnosis Sciatica, unspecified laterality documented in this encounter [facility] [facility] Diagnosis Type 2 diabetes mellitus with diabetic neuropathy, without long-term current use of insulin (HCC) [facility] Diagnosis Type 2 diabetes mellitus with diabetic neuropathy, without long-term current use of insulin (HCC) [facility] Diagnosis Other specified hearing loss, unspecified ear- Primary [facility] Diagnosis Hypothyroidism, unspecified type documented in this encounter [facility]* Diagnosis Preoperative examination- Primary [...] Sciatica, unspecified laterality [facility] Preoperative examination- Primary Preoperative [...] (or current) unspecified [facility] Diagnosis Preoperative examination- Primary Preoperative examination, [...] Sciatica, unspecified laterality [facility] Diagnosis Preoperative examination- Primary Preoperative [...] of insulin (HCC) [facility] Diagnosis Preoperative examination- Primary Preoperative [...] of insulin (HCC) [facility] Diagnosis Preoperative examination- Primary Preoperative [...] Sciatica, unspecified laterality [facility] Diagnosis Preoperative examination- Primary Preoperative [...] with status migrainosus [facility] Diagnosis Preoperative examination- Primary Preoperative [...] present Acute cough [facility] Diagnosis Preoperative examination- Primary Preoperative [...] Pain in limb [facility] Diagnosis Preoperative examination- Primary Preoperative [...] deficiency anemia type [facility] Diagnosis Preoperative examination- Primary Preoperative examination, unspecified Acute pain of left shoulder Hypertension, unspecified type Other hyperlipidemia Type 2 diabetes mellitus with diabetic neuropathy, without long-term current use of insulin (HCC) Hypothyroidism, unspecified type Essential tremor Essential and other specified forms of tremor Powesr's esophagus without dysplasia Powers's esophagus Liver fibrosis [...] serious comorbidity present [facility] Diagnosis Preoperative examination- Primary Preoperative [...] hearing loss, bilateral [facility] Diagnosis Preoperative examination- Primary Preoperative [...] both ears- Primary [facility] Diagnosis Preoperative examination- Primary Preoperative [...] serious comorbidity present [facility] Diagnosis Preoperative examination- Primary Preoperative [...] Sciatica, unspecified laterality [facility] Diagnosis Preoperative examination- Primary Preoperative examination, [...] Abnormal involuntary movements [facility] Diagnosis Preoperative examination- Primary Preoperative [...] with status migrainosus [facility] Diagnosis Preoperative examination- Primary Preoperative [...] Unspecified malignant neoplasm of skin, site unspecified KRZYSZTFO (obstructive sleep apnea) Obstructive sleep apnea (adult) (pediatric) Class 2 obesity due to excess calories with body mass index (BMI) of 35.0 to 35.9 in adult, unspecified whether serious comorbidity present Sciatica, unspecified laterality [facility] Diagnosis Preoperative examination- Primary Preoperative [...] for breast cancer [facility] Diagnosis Preoperative examination- Primary Preoperative examination, [...] right foot- Primary [facility] Diagnosis Preoperative examination- Primary Preoperative examination, [...] Hypothyroidism, unspecified type [facility] Diagnosis Preoperative examination- Primary Preoperative examination, [...] of right foot [facility] Diagnosis Preoperative examination- Primary Preoperative [...] of right foot [facility] Diagnosis Preoperative examination- Primary Preoperative [...] dysplasia Powers's esophagus [facility] Diagnosis Preoperative examination- Primary Preoperative [...] initial encounter- Primary [facility] Diagnosis Preoperative examination- Primary Preoperative examination, [...] of unspecified site [facility] Diagnosis Preoperative examination- Primary Preoperative [...] unspecified Pre-operative examination- Primary Preoperative examination, unspecified Poewrs's esophagus without dysplasia Powers's esophagus Bipolar 1 [...] and myositis, unspecified [facility] Diagnosis Preoperative examination- Primary Preoperative [...] phalanx, initial encounter [facility] Diagnosis Preoperative examination- Primary Preoperative [...] of skin (HCC) [facility] Diagnosis Preoperative examination- Primary Preoperative examination, [...] Sciatica, unspecified laterality [facility] Diagnosis Preoperative examination- Primary Preoperative [...] of insulin (HCC) [facility] Diagnosis Preoperative examination- Primary Preoperative [...] of insulin (HCC) [facility] Diagnosis Preoperative examination- Primary Preoperative [...] single bacterial disease [facility] Diagnosis Preoperative examination- Primary Preoperative [...] Anemia, unspecified type [facility] Diagnosis Preoperative examination- Primary Preoperative [...] insufficiency, unspecified Presbyopia [facility] Diagnosis Preoperative examination- Primary Preoperative [...] phalanx, initial encounter [facility] Diagnosis Preoperative examination- Primary Preoperative examination, [...] kidney and ureter [facility] Diagnosis Preoperative examination- Primary Preoperative [...] of right foot [facility] Diagnosis Preoperative examination- Primary Preoperative [...] of insulin (HCC) [facility] Diagnosis Preoperative examination- Primary Preoperative [...] of insulin (HCC) [facility] Diagnosis Preoperative examination- Primary Preoperative [...] deficiency anemia type [facility] Diagnosis Preoperative examination- Primary Preoperative [...] with status migrainosus [facility] Diagnosis Preoperative examination- Primary Preoperative [...] (HCC) Secondary Parkinsonism [facility] Diagnosis Preoperative examination- Primary Preoperative [...] present Microalbuminuria Proteinuria [facility] Diagnosis Preoperative examination- Primary Preoperative [...] in adult, unspecified whether serious comorbidity present Altered mental status, unspecified altered mental status type- Primary Tenuous home situation Multiple falls Personal history of fall Injury of head, subsequent encounter Laceration of scalp, subsequent encounter Dehydration Type 2 diabetes mellitus with diabetic neuropathy, without long-term current use of insulin (HCC) Anorexia Renal insufficiency Unspecified disorder of kidney and ureter Fibromyalgia Mylagia and myositis, unspecified Essential tremor Essential and other specified forms of tremor H/O gastric bypass Bariatric surgery status 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 Ice all sore areas. Tylenol Motrin for pain. Follow-up with your doctor as needed.[facility] Work Phone: Hospital Discharge instructions Additional Instructions You received Tylenol here in the emergency department. No Tylenol for 6 hours. Follow-up with primary care physician. Recommend using your walker. Monitor for signs of concussion which we talked about. Return back to the ED if symptoms change or worsen. Jonahtan need to come out in 7 to 10 [facility] Phone: Reason for referral (narrative)* Outpatient Procedure (Routine) - Authorized Specialty Diagnoses / Procedures Referred By Rahcael t Referred To [facility] Diagnoses Ulcer of toe of left foot, limited to breakdown of skin ([facility]) Diminished pulses in lower extremity Procedures PVR ANK PRESS SHY VAS LAB NON-INVAS PHYSIOLOGIC STD EXTREMITY ART 2 LEVEL Dru Sahu [address] [place] [address] [facility] [place] [address] [place] [address] Referral ID Status Reason Start Date Expiration Date Visits Requested Visits Authorized [id number] Authorized Auto-Generat ed Referral 08/09/2021 08/09/2022 1 1 [facility] for referral (narrative)* Diagnostic Procedure Only (Routine) - Closed Specialty Diagnoses / Procedures Referred By Contac t Referred To Contact XR IMAGING Diagnoses Pain Procedures XR FOOT GENERAL 3V AP/LAT/OBL BILATERAL RADEX FOOT COMPLETE MINIMUM 3 VIEWS Dru Sahu [address] [facility] [place] [address] Xr Imaging Referral ID Status Reason Start Date Expiration Date V isits Requested Visits Authorized [id number] Closed Auto-Generate d Referral 07/30/2021 08/29/2022 1 1 T [facility] for referral (narrative)* Diagnostic Procedure Only (Routine) - Closed Specialty Diagnoses / Procedures Referred By Contac t Referred To Contact XR IMAGING Diagnoses Other diabetic neurological complication associated with type 2 diabetes mellitus (HCC) Hammertoe of left foot Procedures XR FOOT GENERAL 3V AP/LAT/OBL LEFT RADEX FOOT COMPLETE MINIMUM 3 VIEWS Dru Sahu [address] [place] [address] Xr Imaging Referral ID Status Reason Start Date Expiration Date V isits Requested Visits Authorized [id number] Closed Auto-Generate d Referral 12/18/2021 01/17/2023 1 1 T [facility] for referral (narrative)* Diagnostic Procedure Only (Routine) - Closed Specialty Diagnoses / Procedures Referred By Contac t Referred To Contact XR IMAGING Diagnoses Finger pain, right Procedures XR DIGIT GENERAL 3V FRONTAL/LAT/OBL RIGHT RADEX FINGR MINIMUM 2 VIEWS Santhosh Holden MD [address] [place] [address] Xr Imaging Referral ID Status Reason Start Date Expiration Date V isits Requested Visits Authorized [id number] Closed Auto-Generate d Referral 05/29/2022 06/28/2023 1 1 * Diagnostic Procedure Only (Routine) - Authorized Specialty Diagnoses / Procedures Referred By Contac t Referred To Contact BR IMAGING Diagnoses Screening breast examination Procedures JESUS SCREENING SCREENING MAMMOGRAPHY BI 2-VIEW BREAST INC CAD Santhosh Holden MD [address] [place] [address] [facility] [address] [place] [address] Referral ID Status Reason Start Date Expiration Date Visits Requested Visits Authorized [id number] Authorized Auto-Generat ed Referral 05/29/2022 06/28/2023 1 1 * Diagnostic Procedure Only (Routine) - Closed Specialty Diagnoses / Procedures Referred By Rachael yanez Referred To Contact XR IMAGING Diagnoses Finger pain, right Procedures XR DIGIT GENERAL 3V FRONTAL/LAT/OBL RIGHT RADEX FINGR MINIMUM [place] [address] [place] [address] Xr Imaging Referral ID Status Reason Start Date Expiration Date V isits Requested Visits Authorized [id number] Closed Auto-Generate d Referral 05/29/2022 06/28/2023 1 1 * Consult, Test, Treat (Routine) - Authorized Specialty Diagnoses / Procedures Referred By Rachael t Referred To Contact Cardiology Diagnoses Coronary-myocardial bridge Mild CAD Procedures CONSULT TO CARDIOLOGY OFFICE/OUTPATIENT [facility] 60-74 MINUTES Santhosh Holden MD [address] [place] [address] Referral ID Status Reason Start Date Expiration Date Visits Requested Visits Authorized [id number] Authorized PCP Requested Referral 05/29/2022 05/29/2023 1 1 * Consult, Test, Treat (Routine) - Authorized Specialty Diagnoses / Procedures Referred By Rachael t Referred To Contact General Surgery Diagnoses 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 H/O gastric bypass Screening for colon cancer Procedures CONSULT TO GENERAL SURGERY OFFICE/OUTPATIENT [facility] 60-74 MINUTES Santhosh Holden MD [address] [place] [address] Referral ID Status Reason Start Date Expiration Date Visits Requested Visits Authorized [id number] Authorized PCP Requested Referral 05/29/2022 05/29/2023 1 1 * Consult, Test, Treat (Routine) - Authorized Specialty Diagnoses / Procedures Referred By Contac t Referred To Contact Neurology / NEUROLOGY Diagnoses Parkinson's disease (HCC) Essential tremor Ataxia Procedures CONSULT TO NEUROLOGY OFFICE/OUTPATIENT [facility] 60-74 MINUTES Santhosh Holden MD [address] [place] [address] [address] Referral ID Status Reason Start Date Expiration Date Visits Requested Visits Authorized [id number] Authorized PCP Requested Referral 05/29/2022 08/21/2023 1 1 * Physical Therapy (Routine) - Pending Review Specialty Diagnoses / Procedures Referred By Rachael t Referred To Contact [facility] Diagnoses Neuropathy Ataxia Fall, subsequent encounter Procedures CONSULT TO PHYSICAL THERAPY [facility] 45 M[facility] Santhosh Holden MD [address] [place] [address] [facility] [place] [address] [place] [address] Referral ID Status Reason Start Date Expiration Date Visits Requested Visits Authorized [id number] Pending Review Auto-Generat ed Referral 05/29/2022 05/29/2023 1 1 * Consult, Test, Treat (Routine) - Authorized Specialty Diagnoses / Procedures Referred By Contac t Referred To Contact Ophthalmology Diagnoses Screening for diabetic retinopathy Procedures CONSULT TO OPHTHALMOLOGY OFFICE/OUTPATIENT [facility] 60-74 MINUTES Santhosh Holden MD [address] [place] [address] Referral ID Status Reason Start Date Expiration Date Visits Requested Visits Authorized [id number] Authorized PCP Requested Referral 05/29/2022 05/29/2023 1 1 [facility] for referral (narrative)* Diagnostic Procedure Only (Routine) - Authorized Specialty Diagnoses / Procedures Referred By Contac t Referred To Contact XR IMAGING Diagnoses Pain Procedures XR FOOT GENERAL 3V AP/LAT/OBL RIGHT RADEX FOOT COMPLETE MINIMUM 3 VIEWS [address] [place] [place] [address] Xr Imaging Referral ID Status Reason Start Date Expiration Date Visits Requested Visits Authorized [id number] Authorized Auto-Generat ed Referral 09/25/2022 10/25/2023 1 1 [facility] for referral (narrative)* Diagnostic Procedure Only (Routine) - Pending Review Specialty Diagnoses / Procedures Referred By Contac t Referred To Contact XR IMAGING Diagnoses Hammertoe of right foot Closed displaced fracture of phalanx of lesser toe of right foot, unspecified phalanx, initial encounter Procedures XR FOOT GENERAL 3V AP/LAT/OBL RIGHT RADEX FOOT COMPLETE MINIMUM 3 V[place]WS [place] [address] [place] [address] Xr Imaging Referral ID Status Reason Start Date Expiration Date Visits Requested Visits Authorized [id number] Pending Review Auto-Generat ed Referral 10/15/2022 11/14/2023 1 1 [facility] for referral (narrative)* Diagnostic Procedure Only (Routine) - Closed Specialty Diagnoses / Procedures Referred By Contac t Referred To Contact XR IMAGING Diagnoses Pain Procedures XR FOOT GENERAL 3V AP/LAT/OBL RIGHT RADEX FOOT COMPLETE MINIMUM 3 VIEWS [address] [place] [place] [address] [place] [address] Referral ID Status Reason Start Date Expiration Date V isits Requested Visits Authorized [id number] Closed Auto-Generate d Referral 09/25/2022 10/25/2023 1 1 [facility] for referral (narrative)* Diagnostic Procedure Only (Routine) - Closed Specialty Diagnoses / Procedures Referred By Rachael t Referred To Contact BR IMAGING Diagnoses Screening breast examination Procedures JESUS SCREENING SCREENING MAMMOGRAPHY BI 2-VIEW BREAST INC CAD Santhosh Holden MD [address] [place] [address] [facility] Imaging [address] [place] [phone] Referral ID Status Reason Start Date Expiration Date V isits Requested Visits Authorized [id number] Closed Auto-Generate d Referral 05/29/2022 06/28/2023 1 1 [facility] for referral (narrative)* Outpatient Procedure (Routine) - Additional Clinical Info Needed Specialty Diagnoses / Procedures [facility]erred To Contact [facility] Diagnoses Mild CAD SOB (shortness of breath) Procedures ECHO ECHO TTHRC R-T 2D W/WOM-MODE COMPL SPEC&COLR D Radha Andersen APRN.CNP [address] [place] [address] [address] [address] [address] Referral ID Status Reason Start Date Expiration Date Visits Requested Visits Authorized [id number] Additional Clinical Info Needed Auto-Generat ed Referral 05/08/2023 05/07/2024 1 1 [facility] for referral (narrative)* Diagnostic Procedure Only (Routine) - Authorized Specialty Diagnoses / Procedures [facility] Diagnoses KRZYSZTOF (obstructive sleep apnea) Procedures HOME SLEEP APNEA TEST (HSAT) SLEEP STD AIRFLOW HRT RATE&O2 SAT EFFORT UNATT Santhosh Holden MD [address] [place] [address] [place] [address] Referral ID Status Reason Start Date Expiration Date Visits Requested Visits Authorized [id number] Authorized Auto-Generat ed Referral 07/24/2023 07/23/2024 1 1 [facility] for referral (narrative)* Diagnostic Procedure Only (Routine) - Closed Specialty Diagnoses / Procedures Referred By Contac t Referred To Contact XR IMAGING Diagnoses Finger pain, right Procedures XR DIGIT GENERAL 3V FRONTAL/LAT/OBL RIGHT RADEX FINGR MINIMUM 2 VIEWS Santhosh Holden MD [address] [place] [address] [place] [address] Referral ID Status Reason Start Date Expiration Date V isits Requested Visits Authorized [id number] Closed Auto-Generate d Referral 05/29/2022 06/28/2023 1 1 [facility] for referral (narrative)* Diagnostic Procedure Only (Routine) - New Request Specialty Diagnoses / Procedures Referred By Contac t Referred To Contact BR IMAGING Diagnoses Encounter for screening mammogram for breast cancer Procedures JESUS SCREENING W TIFFANY SCREENING DIGITAL BREAST TOMOSYNTHESIS BI SCREENING MAMMOGRAPHY BI 2-VIEW BREAST INC CAD Santhosh Holden MD [address] [place] [address] [facility] [address] [place] [address] Referral ID Status Reason Start Date Expiration Date Visits Requested Visits Authorized [id number] New Request Auto-Generat ed Referral 04/15/2025 1 1 [facility] for referral (narrative)No reason for referral information availableWSelect [facility] Work Phone: Reason for visit Narrative* Diagnostic Procedure Only (Routine) - Closed Specialty Diagnoses / Procedures Referred By Contac t Referred To Contact XR IMAGING Diagnoses Pain Procedures XR FOOT GENERAL 3V AP/LAT/OBL BILATERAL RADEX FOOT COMPLETE MINIMUM 3 VIEWS Dru Sahu [address] [place] [address] Xr Imaging Referral ID Status Reason Start Date Expiration Date V isits Requested Visits Authorized [id number] Closed Auto-Generate d Referral 07/30/2021 08/29/2022 1 1 [facility] for visit Narrative* Diagnostic Procedure Only (Routine) - Closed Specialty Diagnoses / Procedures Referred By Contac t Referred To Contact XR IMAGING Diagnoses Other diabetic neurological complication associated with type 2 diabetes mellitus (HCC) Hammertoe of left foot Procedures XR FOOT GENERAL 3V AP/LAT/OBL LEFT RADEX FOOT COMPLETE MINIMUM 3 VIEWS Dru Sahu [address] [place] [address] Xr Imaging Referral ID Status Reason Start Date Expiration Date V isits Requested Visits Authorized [id number] Closed Auto-Generate d Referral 12/18/2021 01/17/2023 1 1 [facility] for visit Narrative* Diagnostic Procedure Only (Routine) - Closed Specialty Diagnoses / Procedures Referred By Contac t Referred To Contact XR IMAGING Diagnoses Pain Procedures XR FOOT GENERAL 3V AP/LAT/OBL RIGHT RADEX FOOT COMPLETE MINIMUM 3 VIEWS Dru Sahu [address] [place] [address] [place] [address] Referral ID Status Reason Start Date Expiration Date V isits Requested Visits Authorized [id number] Closed Auto-Generate d Referral 09/25/2022 10/25/2023 1 1 [facility] for visit Narrative* Diagnostic Procedure Only (Routine) - Closed Specialty Diagnoses / Procedures Referred By Contac t Referred To Contact BR IMAGING Diagnoses Screening breast examination Procedures JESUS SCREENING SCREENING MAMMOGRAPHY BI 2-VIEW BREAST INC CAD Santhosh Holden MD [address] [place] [address] [facility] Imaging [address] [place] [address] Referral ID Status Reason Start Date Expiration Date V isits Requested Visits Authorized [id number] Closed Auto-Generate d Referral 05/29/2022 06/28/2023 1 1 [facility] for visit Narrative* Diagnostic Procedure Only (Routine) - Closed Specialty Diagnoses / Procedures Referred By Contac t Referred To Contact XR IMAGING Diagnoses Hammer toe of left foot Procedures XR FOOT GENERAL 3V AP/LAT/OBL LEFT RADEX FOOT COMPLETE MINIMUM 3 VIEWS [facility] [address] [place] [address] [place] [address] Referral ID Status Reason Start Date Expiration Date V isits Requested Visits Authorized [id number] Closed Auto-Generate d Referral 01/06/2022 02/05/2023 1 1 [facility] for visit Narrative* Diagnostic Procedure Only (Routine) - Closed Specialty Diagnoses / Procedures Referred By Contac t Referred To Contact XR IMAGING Diagnoses Finger pain, right Procedures XR DIGIT GENERAL 3V FRONTAL/LAT/OBL RIGHT RADEX FINGR MINIMUM 2 VIEWS Santhosh Holden MD [address] [place] [address] [place] [address] Referral ID Status Reason Start Date Expiration Date V isits Requested Visits Authorized [id number] Closed Auto-Generate d Referral 05/29/2022 06/28/2023 1 1 [facility] for visit Narrative* Diagnostic Procedure Only (Urgent) - Closed Specialty Diagnoses / Procedures Referred By Contac t Referred To Contact XR IMAGING Diagnoses Cellulitis and abscess of toe of right foot Procedures XR TOE AP/LAT/OBL RIGHT RADEX TOE MINIMUM 2 VIEWS Dru Sahu [address] [address] Phone: tel: fax: [place] [id number] Referral ID Status Reason Start Date Expiration Date V isits Requested Visits Authorized [id number] Closed Auto-Generate d Referral 05/05/2024 06/04/2025 1 1 [facility] for visit Narrative* Diagnostic Procedure Only (Routine) - Closed Specialty Diagnoses / Procedures Referred By Contac t Referred To Contact XR IMAGING Diagnoses Closed displaced fracture of phalanx of right great toe, unspecified phalanx, initial encounter Procedures XR TOE AP/LAT/OBL RIGHT RADEX TOE MINIMUM 2 VIEWS Dru Sahu [address] [address] Phone: tel: fax: [place] [address] Referral ID Status Reason Start Date Expiration Date V isits Requested Visits Authorized [id number] Closed Auto-Generate d Referral 05/13/2024 06/09/2025 [facility] Only (Routine) - Closed Specialty Diagnoses / Procedures Referred By Contac t Referred To Contact XR IMAGING Diagnoses Closed nondisplaced fracture of phalanx of right great toe, unspecified phalanx, initial encounter Procedures XR TOE AP/LAT/OBL RIGHT RADEX TOE MINIMUM 2 VIEWS Dur Sahu [address] [address] Phone: tel: fax: [place] [address] Referral ID Status Reason Start Date Expiration Date V isits Requested Visits Authorized [id number] Closed Auto-Generate d Referral 06/03/2024 06/12/2025 1 1 [facility] Summary Purpose Family History Relationship Condition Age at Onset Recorded Date/T jesusita Unknown Family History?No pe rtinent history Unknown December 31, 2016 5:29pm Family History?No pe rtinent history Unknown December 31, 2016 5:29pm Advance Directives Documents on File Type Date Recorded 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 Advance Directive(s) 05/16/2020 5:51 AM Advance Directive(s) 04/26/2020 10:10 AM Advance Directive(s) 05/21/2018 6:19 AM Advance Directive(s) 05/19/2018 11:00 AM Advance Directive(s) 03/25/2018 10:54 AM Advance Directive(s) 03/20/2016 8:31 AM Advance Directive(s) 01/10/2016 1:55 PM Documents on File Type Date Recorded 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 Advance Directive(s) 05/16/2020 5:51 AM Advance Directive(s) 04/26/2020 10:10 AM Advance Directive(s) 05/21/2018 6:19 AM Advance Directive(s) 05/19/2018 11:00 AM Advance Directive(s) 03/25/2018 10:54 AM Advance Directive(s) 03/20/2016 8:31 AM Advance Directive(s) 01/10/2016 1:55 PM Documents on File Type Date Recorded 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 Advance Directive(s) 05/16/2020 5:51 AM Advance Directive(s) 05/19/2018 11:00 AM Documents on File Type Date Recorded 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 Advance Directive(s) 05/16/2020 5:51 AM Advance Directive(s) 05/19/2018 11:00 AM Advance Directive Response Recorded Date/ Time Advance Directives No August 22 2:59pm Living Will No October 29, 2022 3:40pm Power of Social Work Associate No October 29 3:40pm Documents on File Type Date Recorded 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 Yes August 29, 2024 10:04am Advance Directives [...] Chief Complaint FALL Chief Complaint Admit Date fallAugust 29, 2024 9:18a m Reason for Referral Specialty Diagnoses / Procedures Referred By Contac t Referred To Contact Cardiology Diagnoses Primary hypertension Coronary artery disease involving [place] heart without angina pectoris, unspecified vessel or lesion type Procedures CONSULT TO CARDIOLOGY OFFICE/OUTPATIENT [facility] 60-74 MINUTES Santhosh Holden MD [address] [place] [id number] Referral ID Status Reason Start Date Expiration Date Visits Requested Visits Authorized [id number] Authorized PCP Requested Referral 12/05/2022 12/05/2023 1 1 Specialty Diagnoses / Procedures Referred By Contac t Referred To Contact General Surgery Diagnoses 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 History of colonic polyps Procedures CONSULT TO GENERAL SURGERY OFFICE/OUTPATIENT [facility] 60-74 MINUTES Santhosh Holden MD [address] [place] [id number] Referral ID Status Reason Start Date Expiration Date Visits Requested Visits Authorized [id number] Authorized PCP Requested Referral 12/05/2022 12/05/2023 1 1 Specialty Diagnoses / Procedures Referred By Contac t Referred To Contact Diagnoses Type 2 diabetes mellitus with diabetic neuropathy, without long-term current use of insulin ([facility]) Santhosh Holden MD [address] [place] [id number] Referral ID Status Reason Start Date Expiration Date Visits Re quested Visits Authorized [id number] Closed 1 1 Specialty Diagnoses / Procedures Referred By Contac t Referred To Contact Diagnoses Other specified hearing loss, unspecified ear Procedures HEARING TEST/AUDIOGRAM COMPRE AUDIOMETRY THRESHOLD BOAL SP Dru Garcia MD [address] [address] [facility] [address] [place] [address] Referral ID Status Reason Start Date Expiration Date Visits Requested Visits Authorized [id number] Pending Review Auto-Generat ed Referral 09/23/2023 09/23/2024 1 1 Additional Source Comments INFORMATION SOURCE (unrecogn ized section and content) DATE CREATED AUTHOR 04/21/2021 [facility] DATE CREATED AUTHOR AUTHOR'S ORGANIZ ATION 03/19/2023 [facility] DATE CREATED AUTHOR AUTHOR'S ORGANIZ ATION 01/07/2024 [facility] DATE CREATED AUTHOR AUTHOR'S ORGANIZ ATION 06/25/2024 [facility] DATE CREATED AUTHOR AUTHOR'S ORGANIZ ATION 09/01/2024 [facility] DATE CREATED AUTHOR AUTHOR'S ORGANIZ ATION 2024 [facility] Source Comments (unrecognize d section and content) In the event this informatio n is protected by the Federal Confidentiality of Alcohol and Drug Abuse Patient Records regulations: The Federal rules restrict any use of the information to criminally investigate or prosecute any alcohol or drug abuse patient.[facility] Hospital[facility] the event this information is protected by the Federal Confidentiality of Alcohol and Drug Abuse Patient Records regulations: The Federal rules restrict any use of the information to criminally investigate or prosecute any alcohol or drug abuse patient.[facility] ClinicIn the event this information is protected by the Federal Confidentiality of Alcohol and Drug Abuse Patient Records regulations: The Federal rules restrict any use of the information to criminally investigate or prosecute any alcohol or drug abuse patient.[facility] HospitalIn the event this information is protected by the Federal Confidentiality of Alcohol and Drug Abuse Patient Records regulations: The Federal rules restrict any use of the information to criminally investigate or prosecute any alcohol or drug abuse patient.[facility] HospitalIn the event this information is protected by the Federal Confidentiality of Alcohol and Drug Abuse Patient Records regulations: The Federal rules restrict any use of the information to criminally investigate or prosecute any alcohol or drug abuse patient.[facility] HospitalIn the event this information is protected by the Federal Confidentiality of Alcohol and Drug Abuse Patient Records regulations: The Federal rules restrict any use of the information to criminally investigate or prosecute any alcohol or drug abuse patient.[facility] HospitalIn the event this information is protected by the Federal Confidentiality of Alcohol and Drug Abuse Patient Records regulations: The Federal rules restrict any use of the information to criminally investigate or prosecute any alcohol or drug abuse patient.[facility] HospitalIn the event this information is protected by the Federal Confidentiality of Alcohol and Drug Abuse Patient Records regulations: The Federal rules restrict any use of the information to criminally investigate or prosecute any alcohol or drug abuse patient.[facility] HospitalIn the event this information is protected by the Federal Confidentiality of Alcohol and Drug Abuse Patient Records regulations: The Federal rules restrict any use of the information to criminally investigate or prosecute any alcohol or drug abuse patient.[facility] HospitalIn the event this information is protected by the Federal Confidentiality of Alcohol and Drug Abuse Patient Records regulations: The Federal rules restrict any use of the information to criminally investigate or prosecute any alcohol or drug abuse patient.[facility] HospitalIn the event this information is protected by the Federal Confidentiality of Alcohol and Drug Abuse Patient Records regulations: The Federal rules restrict any use of the information to criminally investigate or prosecute any alcohol or drug abuse patient.[facility] HospitalIn the event this information is protected by the Federal Confidentiality of Alcohol and Drug Abuse Patient Records regulations: The Federal rules restrict any use of the information to criminally investigate or prosecute any alcohol or drug abuse patient.[facility] HospitalIn the event this information is protected by the Federal Confidentiality of Alcohol and Drug Abuse Patient Records regulations: The Federal rules restrict any use of the information to criminally investigate or prosecute any alcohol or drug abuse patient.[facility] HospitalIn the event this information is protected by the Federal Confidentiality of Alcohol and Drug Abuse Patient Records regulations: The Federal rules restrict any use of the information to criminally investigate or prosecute any alcohol or drug abuse patient.[facility] HospitalIn the event this information is protected by the Federal Confidentiality of Alcohol and Drug Abuse Patient Records regulations: The Federal rules restrict any use of the information to criminally investigate or prosecute any alcohol or drug abuse patient.[facility] HospitalIn the event this information is protected by the Federal Confidentiality of Alcohol and Drug Abuse Patient Records regulations: The Federal rules restrict any use of the information to criminally investigate or prosecute any alcohol or drug abuse patient.[facility] HospitalIn the event this information is protected by the Federal Confidentiality of Alcohol and Drug Abuse Patient Records regulations: The Federal rules restrict any use of the information to criminally investigate or prosecute any alcohol or drug abuse patient.[facility] HospitalIn the event this information is protected by the Federal Confidentiality of Alcohol and Drug Abuse Patient Records regulations: The Federal rules restrict any use of the information to criminally investigate or prosecute any alcohol or drug abuse patient.[facility] HospitalIn the event this information is protected by the Federal Confidentiality of Alcohol and Drug Abuse Patient Records regulations: The Federal rules restrict any use of the information to criminally investigate or prosecute any alcohol or drug abuse patient.[facility] HospitalIn the event this information is protected by the Federal Confidentiality of Alcohol and Drug Abuse Patient Records regulations: The Federal rules restrict any use of the information to criminally investigate or prosecute any alcohol or drug abuse patient.[facility] HospitalIn the event this information is protected by the Federal Confidentiality of Alcohol and Drug Abuse Patient Records regulations: The Federal rules restrict any use of the information to criminally investigate or prosecute any alcohol or drug abuse patient.[facility] HospitalIn the event this information is protected by the Federal Confidentiality of Alcohol and Drug Abuse Patient Records regulations: The Federal rules restrict any use of the information to criminally investigate or prosecute any alcohol or drug abuse patient.[facility] HospitalIn the event this information is protected by the Federal Confidentiality of Alcohol and Drug Abuse Patient Records regulations: The Federal rules restrict any use of the information to criminally investigate or prosecute any alcohol or drug abuse patient.[facility] HospitalIn the event this information is protected by the Federal Confidentiality of Alcohol and Drug Abuse Patient Records regulations: The Federal rules restrict any use of the information to criminally investigate or prosecute any alcohol or drug abuse patient.[facility] HospitalIn the event this information is protected by the Federal Confidentiality of Alcohol and Drug Abuse Patient Records regulations: The Federal rules restrict any use of the information to criminally investigate or prosecute any alcohol or drug abuse patient.[facility] HospitalIn the event this information is protected by the Federal Confidentiality of Alcohol and Drug Abuse Patient Records regulations: The Federal rules restrict any use of the information to criminally investigate or prosecute any alcohol or drug abuse patient.[facility] HospitalIn the event this information is protected by the Federal Confidentiality of Alcohol and Drug Abuse Patient Records regulations: The Federal rules restrict any use of the information to criminally investigate or prosecute any alcohol or drug abuse patient.[facility] HospitalIn the event this information is protected by the Federal Confidentiality of Alcohol and Drug Abuse Patient Records regulations: The Federal rules restrict any use of the information to criminally investigate or prosecute any alcohol or drug abuse patient.[facility] HospitalIn the event this information is protected by the Federal Confidentiality of Alcohol and Drug Abuse Patient Records regulations: The Federal rules restrict any use of the information to criminally investigate or prosecute any alcohol or drug abuse patient.[facility] HospitalIn the event this information is protected by the Federal Confidentiality of Alcohol and Drug Abuse Patient Records regulations: The Federal rules restrict any use of the information to criminally investigate or prosecute any alcohol or drug abuse patient.[facility] HospitalIn the event this information is protected by the Federal Confidentiality of Alcohol and Drug Abuse Patient Records regulations: The Federal rules restrict any use of the information to criminally investigate or prosecute any alcohol or drug abuse patient.[facility] HospitalIn the event this information is protected by the Federal Confidentiality of Alcohol and Drug Abuse Patient Records regulations: The Federal rules restrict any use of the information to criminally investigate or prosecute any alcohol or drug abuse patient.[facility] HospitalIn the event this information is protected by the Federal Confidentiality of Alcohol and Drug Abuse Patient Records regulations: The Federal rules restrict any use of the information to criminally investigate or prosecute any alcohol or drug abuse patient.[facility] HospitalIn the event this information is protected by the Federal Confidentiality of Alcohol and Drug Abuse Patient Records regulations: The Federal rules restrict any use of the information to criminally investigate or prosecute any alcohol or drug abuse patient.[facility] HospitalIn the event this information is protected by the Federal Confidentiality of Alcohol and Drug Abuse Patient Records regulations: The Federal rules restrict any use of the information to criminally investigate or prosecute any alcohol or drug abuse patient.[facility] HospitalIn the event this information is protected by the Federal Confidentiality of Alcohol and Drug Abuse Patient Records regulations: The Federal rules restrict any use of the information to criminally investigate or prosecute any alcohol or drug abuse patient.[facility] HospitalIn the event this information is protected by the Federal Confidentiality of Alcohol and Drug Abuse Patient Records regulations: The Federal rules restrict any use of the information to criminally investigate or prosecute any alcohol or drug abuse patient.[facility] HospitalIn the event this information is protected by the Federal Confidentiality of Alcohol and Drug Abuse Patient Records regulations: The Federal rules restrict any use of the information to criminally investigate or prosecute any alcohol or drug abuse patient.[facility] HospitalIn the event this information is protected by the Federal Confidentiality of Alcohol and Drug Abuse Patient Records regulations: The Federal rules restrict any use of the information to criminally investigate or prosecute any alcohol or drug abuse patient.[facility] HospitalIn the event this information is protected by the Federal Confidentiality of Alcohol and Drug Abuse Patient Records regulations: The Federal rules restrict any use of the information to criminally investigate or prosecute any alcohol or drug abuse patient.[facility] HospitalIn the event this information is protected by the Federal Confidentiality of Alcohol and Drug Abuse Patient Records regulations: The Federal rules restrict any use of the information to criminally investigate or prosecute any alcohol or drug abuse patient.[facility] HospitalIn the event this information is protected by the Federal Confidentiality of Alcohol and Drug Abuse Patient Records regulations: The Federal rules restrict any use of the information to criminally investigate or prosecute any alcohol or drug abuse patient.[facility] HospitalIn the event this information is protected by the Federal Confidentiality of Alcohol and Drug Abuse Patient Records regulations: The Federal rules restrict any use of the information to criminally investigate or prosecute any alcohol or drug abuse patient.[facility] HospitalIn the event this information is protected by the Federal Confidentiality of Alcohol and Drug Abuse Patient Records regulations: The Federal rules restrict any use of the information to criminally investigate or prosecute any alcohol or drug abuse patient.[facility] HospitalIn the event this information is protected by the Federal Confidentiality of Alcohol and Drug Abuse Patient Records regulations: The Federal rules restrict any use of the information to criminally investigate or prosecute any alcohol or drug abuse patient.[facility] HospitalIn the event this information is protected by the Federal Confidentiality of Alcohol and Drug Abuse Patient Records regulations: The Federal rules restrict any use of the information to criminally investigate or prosecute any alcohol or drug abuse patient.[facility] HospitalIn the event this information is protected by the Federal Confidentiality of Alcohol and Drug Abuse Patient Records regulations: The Federal rules restrict any use of the information to criminally investigate or prosecute any alcohol or drug abuse patient.[facility] HospitalIn the event this information is protected by the Federal Confidentiality of Alcohol and Drug Abuse Patient Records regulations: The Federal rules restrict any use of the information to criminally investigate or prosecute any alcohol or drug abuse patient.[facility] HospitalIn the event this information is protected by the Federal Confidentiality of Alcohol and Drug Abuse Patient Records regulations: The Federal rules restrict any use of the information to criminally investigate or prosecute any alcohol or drug abuse patient.[facility] HospitalIn the event this information is protected by the Federal Confidentiality of Alcohol and Drug Abuse Patient Records regulations: The Federal rules restrict any use of the information to criminally investigate or prosecute any alcohol or drug abuse patient.[facility] HospitalIn the event this information is protected by the Federal Confidentiality of Alcohol and Drug Abuse Patient Records regulations: The Federal rules restrict any use of the information to criminally investigate or prosecute any alcohol or drug abuse patient.[facility] HospitalIn the event this information is protected by the Federal Confidentiality of Alcohol and Drug Abuse Patient Records regulations: The Federal rules restrict any use of the information to criminally investigate or prosecute any alcohol or drug abuse patient.[facility] ClinicIn the event this information is protected by the Federal Confidentiality of Alcohol and Drug Abuse Patient Records regulations: The Federal rules restrict any use of the information to criminally investigate or prosecute any alcohol or drug abuse patient.[facility] HospitalIn the event this information is protected by the Federal Confidentiality of Alcohol and Drug Abuse Patient Records regulations: The Federal rules restrict any use of the information to criminally investigate or prosecute any alcohol or drug abuse patient.[facility] HospitalIn the event this information is protected by the Federal Confidentiality of Alcohol and Drug Abuse Patient Records regulations: The Federal rules restrict any use of the information to criminally investigate or prosecute any alcohol or drug abuse patient.[facility] HospitalIn the event this information is protected by the Federal Confidentiality of Alcohol and Drug Abuse Patient Records regulations: The Federal rules restrict any use of the information to criminally investigate or prosecute any alcohol or drug abuse patient.[facility] HospitalIn the event this information is protected by the Federal Confidentiality of Alcohol and Drug Abuse Patient Records regulations: The Federal rules restrict any use of the information to criminally investigate or prosecute any alcohol or drug abuse patient.[facility] HospitalIn the event this information is protected by the Federal Confidentiality of Alcohol and Drug Abuse Patient Records regulations: The Federal rules restrict any use of the information to criminally investigate or prosecute any alcohol or drug abuse patient.[facility] HospitalIn the event this information is protected by the Federal Confidentiality of Alcohol and Drug Abuse Patient Records regulations: The Federal rules restrict any use of the information to criminally investigate or prosecute any alcohol or drug abuse patient.[facility] HospitalIn the event this information is protected by the Federal Confidentiality of Alcohol and Drug Abuse Patient Records regulations: The Federal rules restrict any use of the information to criminally investigate or prosecute any alcohol or drug abuse patient.[facility] HospitalIn the event this information is protected by the Federal Confidentiality of Alcohol and Drug Abuse Patient Records regulations: The Federal rules restrict any use of the information to criminally investigate or prosecute any alcohol or drug abuse patient.[facility] HospitalIn the event this information is protected by the Federal Confidentiality of Alcohol and Drug Abuse Patient Records regulations: The Federal rules restrict any use of the information to criminally investigate or prosecute any alcohol or drug abuse patient.[facility] HospitalIn the event this information is protected by the Federal Confidentiality of Alcohol and Drug Abuse Patient Records regulations: The Federal rules restrict any use of the information to criminally investigate or prosecute any alcohol or drug abuse patient.[facility] HospitalIn the event this information is protected by the Federal Confidentiality of Alcohol and Drug Abuse Patient Records regulations: The Federal rules restrict any use of the information to criminally investigate or prosecute any alcohol or drug abuse patient.[facility] HospitalIn the event this information is protected by the Federal Confidentiality of Alcohol and Drug Abuse Patient Records regulations: The Federal rules restrict any use of the information to criminally investigate or prosecute any alcohol or drug abuse patient.[facility] HospitalIn the event this information is protected by the Federal Confidentiality of Alcohol and Drug Abuse Patient Records regulations: The Federal rules restrict any use of the information to criminally investigate or prosecute any alcohol or drug abuse patient.[facility] HospitalIn the event this information is protected by the Federal Confidentiality of Alcohol and Drug Abuse Patient Records regulations: The Federal rules restrict any use of the information to criminally investigate or prosecute any alcohol or drug abuse patient.[facility] HospitalIn the event this information is protected by the Federal Confidentiality of Alcohol and Drug Abuse Patient Records regulations: The Federal rules restrict any use of the information to criminally investigate or prosecute any alcohol or drug abuse patient.[facility] HospitalIn the event this information is protected by the Federal Confidentiality of Alcohol and Drug Abuse Patient Records regulations: The Federal rules restrict any use of the information to criminally investigate or prosecute any alcohol or drug abuse patient.[facility] HospitalIn the event this information is protected by the Federal Confidentiality of Alcohol and Drug Abuse Patient Records regulations: The Federal rules restrict any use of the information to criminally investigate or prosecute any alcohol or drug abuse patient.[facility] HospitalIn the event this information is protected by the Federal Confidentiality of Alcohol and Drug Abuse Patient Records regulations: The Federal rules restrict any use of the information to criminally investigate or prosecute any alcohol or drug abuse patient.[facility] HospitalIn the event this information is protected by the Federal Confidentiality of Alcohol and Drug Abuse Patient Records regulations: The Federal rules restrict any use of the information to criminally investigate or prosecute any alcohol or drug abuse patient.[facility] HospitalIn the event this information is protected by the Federal Confidentiality of Alcohol and Drug Abuse Patient Records regulations: The Federal rules restrict any use of the information to criminally investigate or prosecute any alcohol or drug abuse patient.[facility] HospitalIn the event this information is protected by the Federal Confidentiality of Alcohol and Drug Abuse Patient Records regulations: The Federal rules restrict any use of the information to criminally investigate or prosecute any alcohol or drug abuse patient.[facility] HospitalIn the event this information is protected by the Federal Confidentiality of Alcohol and Drug Abuse Patient Records regulations: The Federal rules restrict any use of the information to criminally investigate or prosecute any alcohol or drug abuse patient.[facility] HospitalIn the event this information is protected by the Federal Confidentiality of Alcohol and Drug Abuse Patient Records regulations: The Federal rules restrict any use of the information to criminally investigate or prosecute any alcohol or drug abuse patient.[facility] HospitalIn the event this information is protected by the Federal Confidentiality of Alcohol and Drug Abuse Patient Records regulations: The Federal rules restrict any use of the information to criminally investigate or prosecute any alcohol or drug abuse patient.[facility] HospitalIn the event this information is protected by the Federal Confidentiality of Alcohol and Drug Abuse Patient Records regulations: The Federal rules restrict any use of the information to criminally investigate or prosecute any alcohol or drug abuse patient.[facility] HospitalIn the event this information is protected by the Federal Confidentiality of Alcohol and Drug Abuse Patient Records regulations: The Federal rules restrict any use of the information to criminally investigate or prosecute any alcohol or drug abuse patient.[facility] HospitalIn the event this information is protected by the Federal Confidentiality of Alcohol and Drug Abuse Patient Records regulations: The Federal rules restrict any use of the information to criminally investigate or prosecute any alcohol or drug abuse patient.[facility] HospitalIn the event this information is protected by the Federal Confidentiality of Alcohol and Drug Abuse Patient Records regulations: The Federal rules restrict any use of the information to criminally investigate or prosecute any alcohol or drug abuse patient.[facility] HospitalIn the event this information is protected by the Federal Confidentiality of Alcohol and Drug Abuse Patient Records regulations: The Federal rules restrict any use of the information to criminally investigate or prosecute any alcohol or drug abuse patient.[facility] HospitalIn the event this information is protected by the Federal Confidentiality of Alcohol and Drug Abuse Patient Records regulations: The Federal rules restrict any use of the information to criminally investigate or prosecute any alcohol or drug abuse patient.[facility] HospitalIn the event this information is protected by the Federal Confidentiality of Alcohol and Drug Abuse Patient Records regulations: The Federal rules restrict any use of the information to criminally investigate or prosecute any alcohol or drug abuse patient.[facility] HospitalIn the event this information is protected by the Federal Confidentiality of Alcohol and Drug Abuse Patient Records regulations: The Federal rules restrict any use of the information to criminally investigate or prosecute any alcohol or drug abuse patient.[facility] HospitalIn the event this information is protected by the Federal Confidentiality of Alcohol and Drug Abuse Patient Records regulations: The Federal rules restrict any use of the information to criminally investigate or prosecute any alcohol or drug abuse patient.[facility] HospitalIn the event this information is protected by the Federal Confidentiality of Alcohol and Drug Abuse Patient Records regulations: The Federal rules restrict any use of the information to criminally investigate or prosecute any alcohol or drug abuse patient.[facility] HospitalIn the event this information is protected by the Federal Confidentiality of Alcohol and Drug Abuse Patient Records regulations: The Federal rules restrict any use of the information to criminally investigate or prosecute any alcohol or drug abuse patient.[facility] HospitalIn the event this information is protected by the Federal Confidentiality of Alcohol and Drug Abuse Patient Records regulations: The Federal rules restrict any use of the information to criminally investigate or prosecute any alcohol or drug abuse patient.[facility] HospitalIn the event this information is protected by the Federal Confidentiality of Alcohol and Drug Abuse Patient Records regulations: The Federal rules restrict any use of the information to criminally investigate or prosecute any alcohol or drug abuse patient.[facility] HospitalIn the event this information is protected by the Federal Confidentiality of Alcohol and Drug Abuse Patient Records regulations: The Federal rules restrict any use of the information to criminally investigate or prosecute any alcohol or drug abuse patient.[facility] HospitalIn the event this information is protected by the Federal Confidentiality of Alcohol and Drug Abuse Patient Records regulations: The Federal rules restrict any use of the information to criminally investigate or prosecute any alcohol or drug abuse patient.[facility] HospitalIn the event this information is protected by the Federal Confidentiality of Alcohol and Drug Abuse Patient Records regulations: The Federal rules restrict any use of the information to criminally investigate or prosecute any alcohol or drug abuse patient.[facility] HospitalIn the event this information is protected by the Federal Confidentiality of Alcohol and Drug Abuse Patient Records regulations: The Federal rules restrict any use of the information to criminally investigate or prosecute any alcohol or drug abuse patient.[facility] HospitalIn the event this information is protected by the Federal Confidentiality of Alcohol and Drug Abuse Patient Records regulations: The Federal rules restrict any use of the information to criminally investigate or prosecute any alcohol or drug abuse patient.[facility] HospitalIn the event this information is protected by the Federal Confidentiality of Alcohol and Drug Abuse Patient Records regulations: The Federal rules restrict any use of the information to criminally investigate or prosecute any alcohol or drug abuse patient.[facility] HospitalIn the event this information is protected by the Federal Confidentiality of Alcohol and Drug Abuse Patient Records regulations: The Federal rules restrict any use of the information to criminally investigate or prosecute any alcohol or drug abuse patient.[facility] HospitalIn the event this information is protected by the Federal Confidentiality of Alcohol and Drug Abuse Patient Records regulations: The Federal rules restrict any use of the information to criminally investigate or prosecute any alcohol or drug abuse patient.[facility] HospitalIn the event this information is protected by the Federal Confidentiality of Alcohol and Drug Abuse Patient Records regulations: The Federal rules restrict any use of the information to criminally investigate or prosecute any alcohol or drug abuse patient.[facility] HospitalIn the event this information is protected by the Federal Confidentiality of Alcohol and Drug Abuse Patient Records regulations: The Federal rules restrict any use of the information to criminally investigate or prosecute any alcohol or drug abuse patient.[facility] HospitalIn the event this information is protected by the Federal Confidentiality of Alcohol and Drug Abuse Patient Records regulations: The Federal rules restrict any use of the information to criminally investigate or prosecute any alcohol or drug abuse patient.[facility] HospitalIn the event this information is protected by the Federal Confidentiality of Alcohol and Drug Abuse Patient Records regulations: The Federal rules restrict any use of the information to criminally investigate or prosecute any alcohol or drug abuse patient.[facility]In the event this information is protected by the Federal Confidentiality of Alcohol and Drug Abuse Patient Records regulations: The Federal rules restrict any use of the information to criminally investigate or prosecute any alcohol or drug abuse patient.[facility] HospitalIn the event this information is protected by the Federal Confidentiality of Alcohol and Drug Abuse Patient Records regulations: The Federal rules restrict any use of the information to criminally investigate or prosecute any alcohol or drug abuse patient.[facility] HospitalIn the event this information is protected by the Federal Confidentiality of Alcohol and Drug Abuse Patient Records regulations: The Federal rules restrict any use of the information to criminally investigate or prosecute any alcohol or drug abuse patient.[facility] HospitalIn the event this information is protected by the Federal Confidentiality of Alcohol and Drug Abuse Patient Records regulations: The Federal rules restrict any use of the information to criminally investigate or prosecute any alcohol or drug abuse patient.[facility] HospitalIn the event this information is protected by the Federal Confidentiality of Alcohol and Drug Abuse Patient Records regulations: The Federal rules restrict any use of the information to criminally investigate or prosecute any alcohol or drug abuse patient.[facility] HospitalIn the event this information is protected by the Federal Confidentiality of Alcohol and Drug Abuse Patient Records regulations: The Federal rules restrict any use of the information to criminally investigate or prosecute any alcohol or drug abuse patient.[facility] HospitalIn the event this information is protected by the Federal Confidentiality of Alcohol and Drug Abuse Patient Records regulations: The Federal rules restrict any use of the information to criminally investigate or prosecute any alcohol or drug abuse patient.[facility] HospitalIn the event this information is protected by the Federal Confidentiality of Alcohol and Drug Abuse Patient Records regulations: The Federal rules restrict any use of the information to criminally investigate or prosecute any alcohol or drug abuse patient.[facility] HospitalIn the event this information is protected by the Federal Confidentiality of Alcohol and Drug Abuse Patient Records regulations: The Federal rules restrict any use of the information to criminally investigate or prosecute any alcohol or drug abuse patient.[facility] HospitalIn the event this information is protected by the Federal Confidentiality of Alcohol and Drug Abuse Patient Records regulations: The Federal rules restrict any use of the information to criminally investigate or prosecute any alcohol or drug abuse patient.[facility] HospitalIn the event this information is protected by the Federal Confidentiality of Alcohol and Drug Abuse Patient Records regulations: The Federal rules restrict any use of the information to criminally investigate or prosecute any alcohol or drug abuse patient.[facility] HospitalIn the event this information is protected by the Federal Confidentiality of Alcohol and Drug Abuse Patient Records regulations: The Federal rules restrict any use of the information to criminally investigate or prosecute any alcohol or drug abuse patient.[facility] HospitalIn the event this information is protected by the Federal Confidentiality of Alcohol and Drug Abuse Patient Records regulations: The Federal rules restrict any use of the information to criminally investigate or prosecute any alcohol or drug abuse patient.[facility] HospitalIn the event this information is protected by the Federal Confidentiality of Alcohol and Drug Abuse Patient Records regulations: The Federal rules restrict any use of the information to criminally investigate or prosecute any alcohol or drug abuse patient.[facility] HospitalIn the event this information is protected by the Federal Confidentiality of Alcohol and Drug Abuse Patient Records regulations: The Federal rules restrict any use of the information to criminally investigate or prosecute any alcohol or drug abuse patient.[facility] HospitalIn the event this information is protected by the Federal Confidentiality of Alcohol and Drug Abuse Patient Records regulations: The Federal rules restrict any use of the information to criminally investigate or prosecute any alcohol or drug abuse patient.[facility] HospitalIn the event this information is protected by the Federal Confidentiality of Alcohol and Drug Abuse Patient Records regulations: The Federal rules restrict any use of the information to criminally investigate or prosecute any alcohol or drug abuse patient.[facility] HospitalIn the event this information is protected by the Federal Confidentiality of Alcohol and Drug Abuse Patient Records regulations: The Federal rules restrict any use of the information to criminally investigate or prosecute any alcohol or drug abuse patient.[facility] HospitalIn the event this information is protected by the Federal Confidentiality of Alcohol and Drug Abuse Patient Records regulations: The Federal rules restrict any use of the information to criminally investigate or prosecute any alcohol or drug abuse patient.[facility] HospitalIn the event this information is protected by the Federal Confidentiality of Alcohol and Drug Abuse Patient Records regulations: The Federal rules restrict any use of the information to criminally investigate or prosecute any alcohol or drug abuse patient.[facility] HospitalIn the event this information is protected by the Federal Confidentiality of Alcohol and Drug Abuse Patient Records regulations: The Federal rules restrict any use of the information to criminally investigate or prosecute any alcohol or drug abuse patient.[facility] HospitalIn the event this information is protected by the Federal Confidentiality of Alcohol and Drug Abuse Patient Records regulations: The Federal rules restrict any use of the information to criminally investigate or prosecute any alcohol or drug abuse patient.[facility] HospitalIn the event this information is protected by the Federal Confidentiality of Alcohol and Drug Abuse Patient Records regulations: The Federal rules restrict any use of the information to criminally investigate or prosecute any alcohol or drug abuse patient.[facility] HospitalIn the event this information is protected by the Federal Confidentiality of Alcohol and Drug Abuse Patient Records regulations: The Federal rules restrict any use of the information to criminally investigate or prosecute any alcohol or drug abuse patient.[facility] HospitalIn the event this information is protected by the Federal Confidentiality of Alcohol and Drug Abuse Patient Records regulations: The Federal rules restrict any use of the information to criminally investigate or prosecute any alcohol or drug abuse patient.[facility] HospitalIn the event this information is protected by the Federal Confidentiality of Alcohol and Drug Abuse Patient Records regulations: The Federal rules restrict any use of the information to criminally investigate or prosecute any alcohol or drug abuse patient.[facility] HospitalIn the event this information is protected by the Federal Confidentiality of Alcohol and Drug Abuse Patient Records regulations: The Federal rules restrict any use of the information to criminally investigate or prosecute any alcohol or drug abuse patient.[facility] HospitalIn the event this information is protected by the Federal Confidentiality of Alcohol and Drug Abuse Patient Records regulations: The Federal rules restrict any use of the information to criminally investigate or prosecute any alcohol or drug abuse patient.[facility] HospitalIn the event this information is protected by the Federal Confidentiality of Alcohol and Drug Abuse Patient Records regulations: The Federal rules restrict any use of the information to criminally investigate or prosecute any alcohol or drug abuse patient.[facility] HospitalIn the event this information is protected by the Federal Confidentiality of Alcohol and Drug Abuse Patient Records regulations: The Federal rules restrict any use of the information to criminally investigate or prosecute any alcohol or drug abuse patient.[facility] HospitalIn the event this information is protected by the Federal Confidentiality of Alcohol and Drug Abuse Patient Records regulations: The Federal rules restrict any use of the information to criminally investigate or prosecute any alcohol or drug abuse patient.[facility] HospitalIn the event this information is protected by the Federal Confidentiality of Alcohol and Drug Abuse Patient Records regulations: The Federal rules restrict any use of the information to criminally investigate or prosecute any alcohol or drug abuse patient.[facility] HospitalIn the event this information is protected by the Federal Confidentiality of Alcohol and Drug Abuse Patient Records regulations: The Federal rules restrict any use of the information to criminally investigate or prosecute any alcohol or drug abuse patient.[facility] HospitalIn the event this information is protected by the Federal Confidentiality of Alcohol and Drug Abuse Patient Records regulations: The Federal rules restrict any use of the information to criminally investigate or prosecute any alcohol or drug abuse patient.[facility] HospitalIn the event this information is protected by the Federal Confidentiality of Alcohol and Drug Abuse Patient Records regulations: The Federal rules restrict any use of the information to criminally investigate or prosecute any alcohol or drug abuse patient.[facility] HospitalIn the event this information is protected by the Federal Confidentiality of Alcohol and Drug Abuse Patient Records regulations: The Federal rules restrict any use of the information to criminally investigate or prosecute any alcohol or drug abuse patient.[facility] HospitalIn the event this information is protected by the Federal Confidentiality of Alcohol and Drug Abuse Patient Records regulations: The Federal rules restrict any use of the information to criminally investigate or prosecute any alcohol or drug abuse patient.[facility] HospitalIn the event this information is protected by the Federal Confidentiality of Alcohol and Drug Abuse Patient Records regulations: The Federal rules restrict any use of the information to criminally investigate or prosecute any alcohol or drug abuse patient.[facility] HospitalIn the event this information is protected by the Federal Confidentiality of Alcohol and Drug Abuse Patient Records regulations: The Federal rules restrict any use of the information to criminally investigate or prosecute any alcohol or drug abuse patient.[facility] HospitalIn the event this information is protected by the Federal Confidentiality of Alcohol and Drug Abuse Patient Records regulations: The Federal rules restrict any use of the information to criminally investigate or prosecute any alcohol or drug abuse patient.[facility] HospitalIn the event this information is protected by the Federal Confidentiality of Alcohol and Drug Abuse Patient Records regulations: The Federal rules restrict any use of the information to criminally investigate or prosecute any alcohol or drug abuse patient.[facility] HospitalIn the event this information is protected by the Federal Confidentiality of Alcohol and Drug Abuse Patient Records regulations: The Federal rules restrict any use of the information to criminally investigate or prosecute any alcohol or drug abuse patient.[facility] HospitalIn the event this information is protected by the Federal Confidentiality of Alcohol and Drug Abuse Patient Records regulations: The Federal rules restrict any use of the information to criminally investigate or prosecute any alcohol or drug abuse patient.[facility] HospitalIn the event this information is protected by the Federal Confidentiality of Alcohol and Drug Abuse Patient Records regulations: The Federal rules restrict any use of the information to criminally investigate or prosecute any alcohol or drug abuse patient.[facility] HospitalIn the event this information is protected by the Federal Confidentiality of Alcohol and Drug Abuse Patient Records regulations: The Federal rules restrict any use of the information to criminally investigate or prosecute any alcohol or drug abuse patient.[facility] HospitalIn the event this information is protected by the Federal Confidentiality of Alcohol and Drug Abuse Patient Records regulations: The Federal rules restrict any use of the information to criminally investigate or prosecute any alcohol or drug abuse patient.[facility] HospitalIn the event this information is protected by the Federal Confidentiality of Alcohol and Drug Abuse Patient Records regulations: The Federal rules restrict any use of the information to criminally investigate or prosecute any alcohol or drug abuse patient.[facility] HospitalIn the event this information is protected by the Federal Confidentiality of Alcohol and Drug Abuse Patient Records regulations: The Federal rules restrict any use of the information to criminally investigate or prosecute any alcohol or drug abuse patient.[facility] HospitalIn the event this information is protected by the Federal Confidentiality of Alcohol and Drug Abuse Patient Records regulations: The Federal rules restrict any use of the information to criminally investigate or prosecute any alcohol or drug abuse patient.[facility] HospitalIn the event this information is protected by the Federal Confidentiality of Alcohol and Drug Abuse Patient Records regulations: The Federal rules restrict any use of the information to criminally investigate or prosecute any alcohol or drug abuse patient.[facility]In the event this information is protected by the Federal Confidentiality of Alcohol and Drug Abuse Patient Records regulations: The Federal rules restrict any use of the information to criminally investigate or prosecute any alcohol or drug abuse patient.[facility] HospitalIn the event this information is protected by the Federal Confidentiality of Alcohol and Drug Abuse Patient Records regulations: The Federal rules restrict any use of the information to criminally investigate or prosecute any alcohol or drug abuse patient.[facility] HospitalIn the event this information is protected by the Federal Confidentiality of Alcohol and Drug Abuse Patient Records regulations: The Federal rules restrict any use of the information to criminally investigate or prosecute any alcohol or drug abuse patient.[facility] HospitalIn the event this information is protected by the Federal Confidentiality of Alcohol and Drug Abuse Patient Records regulations: The Federal rules restrict any use of the information to criminally investigate or prosecute any alcohol or drug abuse patient.[facility] HospitalIn the event this information is protected by the Federal Confidentiality of Alcohol and Drug Abuse Patient Records regulations: The Federal rules restrict any use of the information to criminally investigate or prosecute any alcohol or drug abuse patient.[facility] HospitalIn the event this information is protected by the Federal Confidentiality of Alcohol and Drug Abuse Patient Records regulations: The Federal rules restrict any use of the information to criminally investigate or prosecute any alcohol or drug abuse patient.[facility] HospitalIn the event this information is protected by the Federal Confidentiality of Alcohol and Drug Abuse Patient Records regulations: The Federal rules restrict any use of the information to criminally investigate or prosecute any alcohol or drug abuse patient.[facility] HospitalIn the event this information is protected by the Federal Confidentiality of Alcohol and Drug Abuse Patient Records regulations: The Federal rules restrict any use of the information to criminally investigate or prosecute any alcohol or drug abuse patient.[facility] HospitalIn the event this information is protected by the Federal Confidentiality of Alcohol and Drug Abuse Patient Records regulations: The Federal rules restrict any use of the information to criminally investigate or prosecute any alcohol or drug abuse patient.[facility] HospitalIn the event this information is protected by the Federal Confidentiality of Alcohol and Drug Abuse Patient Records regulations: The Federal rules restrict any use of the information to criminally investigate or prosecute any alcohol or drug abuse patient.[facility] HospitalIn the event this information is protected by the Federal Confidentiality of Alcohol and Drug Abuse Patient Records regulations: The Federal rules restrict any use of the information to criminally investigate or prosecute any alcohol or drug abuse patient.[facility] HospitalIn the event this information is protected by the Federal Confidentiality of Alcohol and Drug Abuse Patient Records regulations: The Federal rules restrict any use of the information to criminally investigate or prosecute any alcohol or drug abuse patient.[facility] HospitalIn the event this information is protected by the Federal Confidentiality of Alcohol and Drug Abuse Patient Records regulations: The Federal rules restrict any use of the information to criminally investigate or prosecute any alcohol or drug abuse patient.[facility] HospitalIn the event this information is protected by the Federal Confidentiality of Alcohol and Drug Abuse Patient Records regulations: The Federal rules restrict any use of the information to criminally investigate or prosecute any alcohol or drug abuse patient.[facility] HospitalIn the event this information is protected by the Federal Confidentiality of Alcohol and Drug Abuse Patient Records regulations: The Federal rules restrict any use of the information to criminally investigate or prosecute any alcohol or drug abuse patient.[facility] HospitalIn the event this information is protected by the Federal Confidentiality of Alcohol and Drug Abuse Patient Records regulations: The Federal rules restrict any use of the information to criminally investigate or prosecute any alcohol or drug abuse patient.[facility] HospitalIn the event this information is protected by the Federal Confidentiality of Alcohol and Drug Abuse Patient Records regulations: The Federal rules restrict any use of the information to criminally investigate or prosecute any alcohol or drug abuse patient.[facility] HospitalIn the event this information is protected by the Federal Confidentiality of Alcohol and Drug Abuse Patient Records regulations: The Federal rules restrict any use of the information to criminally investigate or prosecute any alcohol or drug abuse patient.[facility] HospitalIn the event this information is protected by the Federal Confidentiality of Alcohol and Drug Abuse Patient Records regulations: The Federal rules restrict any use of the information to criminally investigate or prosecute any alcohol or drug abuse patient.[facility] HospitalIn the event this information is protected by the Federal Confidentiality of Alcohol and Drug Abuse Patient Records regulations: The Federal rules restrict any use of the information to criminally investigate or prosecute any alcohol or drug abuse patient.[facility] HospitalIn the event this information is protected by the Federal Confidentiality of Alcohol and Drug Abuse Patient Records regulations: The Federal rules restrict any use of the information to criminally investigate or prosecute any alcohol or drug abuse patient.[facility] Reason for Visit (unrecogniz ed section and content) Reason Onset Date Comments Refill Request 07/02/2021 Reason Comments Insurance Authorization [place] Thyroid 6 0 mg Reason Comments Chest [...] Referred By Rachael t Referred To Contact Ophthalmology Diagnoses Screening for diabetic retinopathy Procedures CONSULT TO OPHTHALMOLOGY OFFICE/OUTPATIENT [facility] MDM 60-74 MINUTES Santhosh Holden MD [address] [place] [address] Referral ID Status Reason Start Date Expiration Date V isits Requested Visits Authorized [id number] Closed PCP Requested Referral 05/29/2022 05/29/2023 1 1 Reason Comments Opened In Error Specialty Diagnoses / Procedures Referred By Contrandall t Referred To Contact PHYSICAL THERAPY Diagnoses Neuropathy Ataxia Fall, subsequent encounter Procedures CONSULT TO PHYSICAL THERAPY PHYSICAL THERAPY EVALUATION HIGH COMPLEX 45 MINS Santhosh Holden MD [address] [place] [address] Nikkie Meyer, PT [address] [place] [address] Referral ID Status Reason Start Date Expiration Date Visits Requested Visits Authorized [id number] Pending Review Auto-Generat ed Referral 05/29/2022 05/29/2023 [...] Refill Request 09/25/2022 Reason Comments Insurance Authorization 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 thyroid Reason Comments Established Patient Follow Up [...] esophagus Specialty Diagnoses / Procedures Referred By Contrandall t Referred To Contact General Surgery Diagnoses 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 History of colonic polyps Procedures CONSULT TO GENERAL SURGERY OFFICE/OUTPATIENT [facility] MDM 60-74 MINUTES Santhosh Holden MD [address] [place] [address] Referral ID Status Reason Start Date Expiration Date V isits Requested Visits Authorized [id number] Closed PCP Requested Referral 12/05/2022 12/05/2023 1 [...] 12/18/2023 Specialty Diagnoses / Procedures Referred By Rachael t Referred To Contact Ent - Otolaryngology Diagnoses Bilateral hearing loss, unspecified hearing loss type Procedures CONSULT TO ENT OFFICE/OUTPATIENT NEW [facility]IGH MDM 60 MINUTES Santhosh Holden MD [address] [place] [address] Referral ID Status Reason Start Date Expiration Date V isits Requested Visits Authorized [id number] Closed PCP Requested Referral 09/21/2023 09/20/2024 1 1 Reason Comments had audio Hearing Loss Bilateral hearing lo ss. Specialty Diagnoses / Procedures Referred By Rachael t Referred To Contact Ent - Otolaryngology Diagnoses Bilateral hearing loss, unspecified hearing loss type Procedures CONSULT TO ENT OFFICE/OUTPATIENT NEW [facility] MDM 60 MINUTES Santhosh Holden MD [address] [place] [address] Reason Onset Date Comments Refill Request 01/05/2024 [...] US Specialty Diagnoses / Procedures Referred By Rachael t Referred To Contact US IMAGING Diagnoses Renal insufficiency Procedures US KIDNEY/BLADDER US RETROPERITONEAL REAL TIME W/IMAGE COMPLETE Santhosh Holden MD [address] [place] [address] Phone: tel: fax: [place] [phone] Referral ID Status Reason Start Date Expiration Date V isits Requested Visits Authorized [id number] Closed Auto-Generate d Referral 05/23/2024 06/22/2025 1 1 Reason Comments Established Patient Follow Up Pain Fracture Diabetic Foot Ulcer Reason Onset Date Comments Refill Request 06/07/2024 Reason Onset Date Comments Refill Request 06/20/2024 Reason Comments 6 month follow up Reason Onset Date Comments Refill Request 07/22/2024 Reason Onset Date Comments Refill Request 07/27/2024 Reason Comments ER F/U Was up last night wi th vomiting. Not eating much. Has been to ER twice 08/29/24 to [facility] and 09/02 [facility]. Falling a lot that hasn't been to ER. Care Teams (unrecognized sec tion and content) Escalator Mechanic Relationship Specialty Start Date End Date Santhosh Holden MD [address] [place] [address] PCP - General Family Practice 11/17/14 Nabor Nicole MD [address] [place] [address] Consulting General Surgery 01/25/21 Escalator Mechanic Relationship Specialty Start Date End Date Santhosh Holden MD [address] [place] [address] PCP - General Family Practice 11/17/14 Nabor Nicole MD [address] [place] [address] Consulting General Surgery 01/25/21 Escalator Mechanic Relationship Specialty Start Date End Date Santhosh Holden MD [address] [place] [address] PCP - General Family Practice 11/17/14 Nabor Nicole MD [address] [place] [address] Consulting General Surgery 01/25/21 Escalator Mechanic Relationship Specialty Start Date End Date Santhosh Holden MD [address] [place] [address] PCP - General Family Practice 11/17/14 Nabor Nicole MD [address] [place] [address] Consulting General Surgery 01/25/21 Escalator Mechanic Relationship Specialty Start Date End Date Santhosh Holden MD [address] [place] [address] PCP - General Family Practice 11/17/14 Nabor Nicole MD [address] [place] [address] Consulting General Surgery 01/25/21 Escalator Mechanic Relationship Specialty Start Date End Date Santhosh Holden MD [address] [place] [address] PCP - General Family Practice 11/17/14 Nabor Nicole MD [address] [place] [address] Consulting General Surgery 01/25/21 Escalator Mechanic Relationship Specialty Start Date End Date Santhosh Holden MD [address] [place] [address] PCP - General Family Practice 11/17/14 Nabor Nicole MD [address] [place] [address] Consulting General Surgery 01/25/21 Escalator Mechanic Relationship Specialty Start Date End Date Santhosh Holden MD [address] [place] [address] PCP - General Family Practice 11/17/14 Nabor Nicole MD Consulting General Surgery 01/25/21 Escalator Mechanic Relationship Specialty Start Date End Date Nory Villeda, DO [address] [facility] [place] [address] Physician Electrophysiology 12/27/19 Shruthi Montenegro, DMD [address] [place] [address] Physician Oral & Maxillofacial Surgery 12/27/19 Escalator Mechanic Relationship Specialty Start Date End Date Santhosh Holden MD [address] [place] [address] PCP - General Family Practice 11/17/14 Nabor Nicole MD Consulting General Surgery 01/25/21 Escalator Mechanic Relationship Specialty Start Date End Date Santhosh Holden MD [address] [place] [address] PCP - General Family Practice 11/17/14 Nabor Nicole MD Consulting General Surgery 01/25/21 Escalator Mechanic Relationship Specialty Start Date End Date Santhosh Holden MD [address] [place] [address] PCP - General Family Practice 11/17/14 Nabor Nicole MD Consulting General Surgery 01/25/21 Escalator Mechanic Relationship Specialty Start Date End Date Santhosh Holden MD [address] [place] [address] PCP - General Family Practice 11/17/14 Nabor Nicole MD Consulting General Surgery 01/25/21 Escalator Mechanic Relationship Specialty Start Date End Date Santhosh Holden MD [address] [place] [address] PCP - General Family Practice 11/17/14 Nabor Nicole MD Consulting General Surgery 01/25/21 Escalator Mechanic Relationship Specialty Start Date End Date Santhosh Holden MD [address] [place] [address] PCP - General Family Practice 11/17/14 Nabor Nicole MD Consulting General Surgery 01/25/21 Escalator Mechanic Relationship Specialty Start Date End Date Santhosh Holden MD [address] [place] [address] PCP - General Family Practice 11/17/14 Nabor Nicole MD Consulting General Surgery 01/25/21 Escalator Mechanic Relationship Specialty Start Date End Date Santhosh Holden MD [address] [place] [address] PCP - General Family Medicine 11/17/14 Nabor Nicole MD Consulting General Surgery 01/25/21 Escalator Mechanic Relationship Specialty Start Date End Date Santhosh Holden MD [address] [place] [address] PCP - General Family Medicine 11/17/14 Nabor Nicole MD Consulting General Surgery 01/25/21 Escalator Mechanic Relationship Specialty Start Date End Date Santhosh Holden MD [address] [place] [address] PCP - General Family Medicine 11/17/14 Nabor Nicole MD Consulting General Surgery 01/25/21 Escalator Mechanic Relationship Specialty Start Date End Date Santhosh Holden MD [address] [place] [address] PCP - General Family Medicine 11/17/14 Nabor Nicole MD Consulting General Surgery 01/25/21 Escalator Mechanic Relationship Specialty Start Date End Date Santhosh Holden MD [address] [place] [address] PCP - General Family Medicine 11/17/14 Nabor Nicole MD Consulting General Surgery 01/25/21 Escalator Mechanic Relationship Specialty Start Date End Date Santhosh Holden MD [address] [place] [address] PCP - General Family Medicine 11/17/14 Nabor Nicole MD Consulting General Surgery 01/25/21 Escalator Mechanic Relationship Specialty Start Date End Date Santhosh Holden MD [address] [place] [address] PCP - General Family Medicine 11/17/14 Nabor Nicole MD Consulting General Surgery 01/25/21 Escalator Mechanic Relationship Specialty Start Date End Date Santhosh Holden MD [address] [place] [address] PCP - General Family Medicine 11/17/14 Nabor Nicole MD Consulting General Surgery 01/25/21 Escalator Mechanic Relationship Specialty Start Date End Date Santhosh Holden MD [address] [place] [address] PCP - General Family Medicine 11/17/14 Nabor Nicole MD Consulting General Surgery 01/25/21 Escalator Mechanic Relationship Specialty Start Date End Date Santhosh Holden MD [address] [place] [address] PCP - General Family Medicine 11/17/14 Nabor Nicole MD [address] [place] [address] Consulting General Surgery 01/25/21 Escalator Mechanic Relationship Specialty Start Date End Date Nory Villeda, DO [address] [facility] [place] [address] Physician Electrophysiology 12/27/19 Shruthi Montenegro, DMD [address] [facility] [place] [address] Physician Oral & Maxillofacial Surgery 12/27/19 Escalator Mechanic Relationship Specialty Start Date End Date Santhosh Holden MD [address] [place] [address] PCP - General Family Medicine 11/17/14 Nabor Nicole MD [address] [place] [address] Consulting General Surgery 01/25/21 Escalator Mechanic Relationship Specialty Start Date End Date Santhosh Holden MD [address] [place] [address] PCP - General Family Medicine 11/17/14 Nabor Nicole MD [address] [place] [address] Consulting General Surgery 01/25/21 Escalator Mechanic Relationship Specialty Start Date End Date Santhosh Holden MD [address] [place] [address] PCP - General Family Medicine 11/17/14 Nabor Nicole MD [address] [place] [address] Consulting General Surgery 01/25/21 Escalator Mechanic Relationship Specialty Start Date End Date Santhosh Holden MD [address] [place] [address] PCP - General Family Medicine 11/17/14 Nabor Nicole MD [address] [place] [address] Consulting General Surgery 01/25/21 Escalator Mechanic Relationship Specialty Start Date End Date Santhosh Holden MD [address] [place] [address] PCP - General Family Medicine 11/17/14 Nabor Nicole MD [address] [place] [address] Consulting General Surgery 01/25/21 Escalator Mechanic Relationship Specialty Start Date End Date Santhosh Holden MD [address] [place] [address] PCP - General Family Medicine 11/17/14 Nabor Nicole MD [address] [place] [address] Consulting General Surgery 01/25/21 Escalator Mechanic Relationship Specialty Start Date End Date Santhosh Holden MD [address] [place] [address] PCP - General Family Medicine 11/17/14 Nabor Nicole MD [address] [place] [address] Consulting General Surgery 01/25/21 Escalator Mechanic Relationship Specialty Start Date End Date Santhosh Holden MD [address] [place] [address] PCP - General Family Medicine 11/17/[address] [facility] [place] [address] Consulting General Surgery 01/25/21 Escalator Mechanic Relationship Specialty Start Date End Date Nory Villeda, DO [address] [facility] [place] [address] Physician Electrophysiology 12/27/19 Shruthi Montenegro, DMD [address] [facility] [place] [address] Physician Oral & Maxillofacial Surgery 12/27/19 Escalator Mechanic Relationship Specialty Start Date End Date Santhosh Holden MD [address] [place] [address] PCP - General Family Medicine 11/17/14 Nabor Nicole MD [address] [place] [address] Consulting General Surgery 01/25/21 Escalator Mechanic Relationship Specialty Start Date End Date Santhosh Holden MD [address] [place] [address] PCP - General Family Medicine 11/17/14 Nabor Nicole MD [address] [place] [address] Consulting General Surgery 01/25/21 Escalator Mechanic Relationship Specialty Start Date End Date Santhosh Holden MD [address] [place] [address] PCP - General Family Medicine 11/17/14 Nabor Nicole MD [address] [place] [address] Consulting General Surgery 01/25/21 Escalator Mechanic Relationship Specialty Start Date End Date Santhosh Holden MD [address] [place] [address] PCP - General Family Medicine 11/17/14 Nabor Nicole MD [address] [place] [address] Consulting General Surgery 01/25/21 Escalator Mechanic Relationship Specialty Start Date End Date Santhosh Holden MD [address] [place] [address] PCP - General Family Medicine 11/17/14 Nabor Nicole MD [address] [place], [place] [address] Consulting General Surgery 01/25/21 Johanna Lincoln Md [address] [place], [place] [address] Psychiatry 08/06/22 Escalator Mechanic Relationship Specialty Start Date End Date Santhosh Holden MD [address] [place], [place] [address] PCP - General Family Medicine 11/17/14 Nabor Nicole MD [address] [place], [place] [address] Consulting General Surgery 01/25/21 Johanna Lincoln Md [address] [place], [place] [address] [place], [place] [id number] Psychiatry 08/06/22 Escalator Mechanic Relationship Specialty Start Date End Date ToddSa haydeeimaDO [address] [facility] [place] [address] Physician Electrophysiology 12/27/19 Shruthi Montenegro DMD [address] [facility] [place] [address] Physician Oral & Maxillofacial Surgery 12/27/19 Escalator Mechanic Relationship Specialty Start Date End Date Santhosh Holden MD [address] [place], [place] [id number] PCP - General Family Medicine 11/17/14 Nabor Nicole MD [address] [place], [place] [address] Consulting General Surgery 01/25/21 Johanna Lincoln Md [address] [place], [place] [id number] Psychiatry 08/06/22 Escalator Mechanic Relationship Specialty Start Date End Date Santhosh Holden MD [address] [place] [address] PCP - General Family Medicine 11/17/14 Nabor Nicole MD [address] [place] [address] Consulting General Surgery 01/25/21 Johanna Lincoln Md [address] [facility] [place] [address] Psychiatry 08/06/22 Escalator Mechanic Relationship Specialty Start Date End Date Santhosh Holden MD [address] [place] [address] PCP - General Family Medicine 11/17/14 Nabor Nicole MD [address] [place] [address] Consulting General Surgery 01/25/21 Johanna Lincoln Md [address] [facility] [place] [address] Psychiatry 08/06/22 Escalator Mechanic Relationship Specialty Start Date End Date Santhosh Holden MD [address] [place] [address] PCP - General Family Medicine 11/17/14 Nabor Nicole MD [address] [place] [address] Consulting General Surgery 01/25/21 Johanna Lincoln Md [address] [place] [address] Psychiatry 08/06/22 Escalator Mechanic Relationship Specialty Start Date End Date Santhosh Holden MD [address] [place] [address] PCP - General Family Medicine 11/17/14 Nabor Nicole MD [address] [place] [address] Consulting General Surgery 01/25/21 Johanna Lincoln Md [address] [place] [address] Psychiatry 08/06/22 Escalator Mechanic Relationship Specialty Start Date End Date Santhosh Holden MD [address] [place] [address] PCP - General Family Medicine 11/17/14 Nabor Nicole MD [address] [place] [address] Consulting General Surgery 01/25/21 Johanna Lincoln Md [address] [place] [address] Psychiatry 08/06/22 Escalator Mechanic Relationship Specialty Start Date End Date Santhosh Holden MD [address] [facility] [place] [address] PCP - General Family Medicine 11/17/14 Nabor Nicole MD [address] [place] [address] Consulting General Surgery 01/25/21 Johanna Lincoln Md [address] [place] [address] Psychiatry 08/06/22 Escalator Mechanic Relationship Specialty Start Date End Date Santhosh Holden MD [address] [facility] [address] PCP - General Family Medicine 11/17/14 Nabor Nicole MD [address] [facility], [place] [address] Consulting General Surgery 01/25/21 Johanna Lincoln Md [address] [facility] [address] [place], [place] [address] Psychiatry 08/06/22 Escalator Mechanic Relationship Specialty Start Date End Date Santhosh Holden MD [address] [place], [place] [address] PCP - General Family Medicine 11/17/14 Nabor Nicole MD [address] [place], [place] [address] Consulting General Surgery 01/25/21 Johanna Lincoln Md [address] [place] [address] Psychiatry 08/06/22 Team Status: Active Member Role Status Dates Dr. Santhosh Holden MD Family Provider Active Dr. Santhosh Holden MD Primary Care Provider Active Team Status: Inactive Member Role Status Dates Dr. Santhosh Holden MD Primary Care Provider Active Dr. Corey Arrington MD Emergency Provider Active Escalator Mechanic Relationship Specialty Start Date End Date Santhosh Holden MD [address] [facility], [place] [address] PCP - General Family Medicine 11/17/14 Nabor Nicole MD [address] [place], [place] [address] Consulting General Surgery 01/25/21 [place] [address] [place], [place] [address] [place] [address] Psychiatry 08/06/22 Escalator Mechanic Relationship Specialty Start Date End Date Santhosh Holden MD [address] [facility] [place] [address] PCP - General Family Medicine 11/17/14 Nabor Nicole MD [address] [facility] [place] [address] Consulting General Surgery 01/25/21 Johanna Lincoln Md [address] [place] [address] Psychiatry 08/06/22 Escalator Mechanic Relationship Specialty Start Date End Date Santhosh Holden MD [address] [facility] [place] [address] PCP - General Family Medicine 11/17/14 Nabor Nicole MD [address] [facility] [place] [address] Consulting General Surgery 01/25/21 Johanna Lincoln Md [address] [place] [address] Psychiatry 08/06/22 Escalator Mechanic Relationship Specialty Start Date End Date Santhosh Holden MD [address] [facility] [facility] [place] [address] PCP - General Family Medicine 11/17/14 Nabor Nicole MD [address] [facility] [place] [address] Consulting General Surgery 01/25/21 Johanna Lincoln Md [address] [place] [address] Psychiatry 08/06/22 Escalator Mechanic Relationship Specialty Start Date End Date Santhosh Holden MD [address] [address] PCP - General Family Medicine 11/17/14 Nabor Nicole MD [address] [facility] [place] [address] Consulting General Surgery 01/25/21 Johanna Lincoln Md [address] [place] [address] Psychiatry 08/06/22 Escalator Mechanic Relationship Specialty Start Date End Date Santhosh Holden MD [address] [facility] [place] [address] PCP - General Family Medicine 11/17/14 Nabor Nicole MD [address] [facility] [place] [address] Consulting General Surgery 01/25/21 Johanna Lincoln Md [address] [place] [address] Psychiatry 08/06/22 Escalator Mechanic Relationship Specialty Start Date End Date Santhosh Holden MD [address] [facility] [place] [address] PCP - General Family Medicine 11/17/14 Nabor Nicole MD [address] [facility] [place] [address] Consulting General Surgery 01/25/21 Johanna Lincoln Md [address] [place] [address] Psychiatry 08/06/22 Escalator Mechanic Relationship Specialty Start Date End Date Santhosh Holden MD [address] [address] PCP - General Family Medicine 11/17/14 Nabor Nicole MD [address] [place] [address] Consulting General Surgery 01/25/21 Johanna Lincoln Md [address] [place] [address] Psychiatry 08/06/22 Escalator Mechanic Relationship Specialty Start Date End Date Santhosh Holden MD [address] [place] [address] PCP - General Family Medicine 11/17/14 Nabor Nicole MD [address] [facility] [place] [address] Consulting General Surgery 01/25/21 Escalator Mechanic Relationship Specialty Start Date End Date Santhosh Holden MD [address] [place] [address] PCP - General Family Medicine 11/17/14 Nabor Nicole MD [address] [facility] [place] [address] Consulting General Surgery 01/25/21 Escalator Mechanic Relationship Specialty Start Date End Date Santhosh Holden MD [address] [facility] [place] [address] PCP - General Family Medicine 11/17/14 Nabor Nicole MD [address] [place] [address] Consulting General Surgery 01/25/21 Johanna Lincoln Md [address] [place] [address] Psychiatry 08/06/22 Escalator Mechanic Relationship Specialty Start Date End Date Santhosh Holden MD [address] [place] [address] PCP - General Family Medicine 11/17/14 Nabor Nicole MD [address] [place] [address] Consulting General Surgery 01/25/21 Johanna Lincoln Md [address] [place] [address] Psychiatry 08/06/22 Escalator Mechanic Relationship Specialty Start Date End Date Santhosh Holden MD [address] [place] [address] PCP - General Family Medicine 11/17/14 Nabor Nicole MD [address] [place] [address] Consulting General Surgery 01/25/21 Johanna Lincoln Md [address] [place] [address] Psychiatry 08/06/22 Escalator Mechanic Relationship Specialty Start Date End Date Santhosh Holden MD [address] [place] [address] PCP - General Family Medicine 11/17/14 Nabor Nicole MD [address] [place] [address] Consulting General Surgery 01/25/21 Johanna Lincoln Md [address] [place] [address] Psychiatry 08/06/22 Escalator Mechanic Relationship Specialty Start Date End Date Santhosh Holden MD [address] [place] [address] PCP - General Family Medicine 11/17/14 Nabor Nicole MD [address] [place] [address] Consulting General Surgery 01/25/21 Johanna Lincoln Md [address] [place] [address] Psychiatry 08/06/22 Escalator Mechanic Relationship Specialty Start Date End Date Santhosh Holden MD [address] [place] [address] PCP - General Family Medicine 11/17/14 Nabor Nicole MD [address] [place] [address] Consulting General Surgery 01/25/21 Johanna Lincoln Md [address] [facility] [place] [address] Psychiatry 08/06/22 Escalator Mechanic Relationship Specialty Start Date End Date Santhosh Holden MD [address] [place] [address] PCP - General Family Medicine 11/17/14 Nabor Nicole MD [address] [place] [address] Consulting General Surgery 01/25/21 Johanna Lincoln Md [address] [place] [address] Psychiatry 08/06/22 Escalator Mechanic Relationship Specialty Start Date End Date Santhosh Holden MD [address] [place] [address] PCP - General Family Medicine 11/17/14 Nabor Nicole MD [address] [place] [address] Consulting General Surgery 01/25/21 Johanna Lincoln Md [address] [place] [address] Psychiatry 08/06/22 Escalator Mechanic Relationship Specialty Start Date End Date Santhosh Holden MD [address] [place] [address] PCP - General Family Medicine 11/17/14 Nabor Nicole MD [address] [place] [address] Consulting General Surgery 01/25/21 Johanna Lincoln Md [address] [place] [address] Psychiatry 08/06/22 Escalator Mechanic Relationship Specialty Start Date End Date Santhosh Holden MD [address] [place] [address] PCP - General Family Medicine 11/17/14 Nabor Nicole MD [address] [place] [address] Consulting General Surgery 01/25/21 Johanna Lincoln Md [address] [place], [place] [address] Psychiatry 08/06/22 Escalator Mechanic Relationship Specialty Start Date End Date Santhosh Holden MD [address] [place] [address] PCP - General Family Medicine 11/17/14 Nabor Nicole MD [address] [place] [address] Consulting General Surgery 01/25/21 Johanna Lincoln Md [address] [place] [address] Psychiatry 08/06/22 Escalator Mechanic Relationship Specialty Start Date End Date Santhosh Holden MD [address] [place] [address] PCP - General Family Medicine 11/17/14 Nabor Nicole MD [address] [place] [address] Consulting General Surgery 01/25/21 Johanna Lincoln Md [address] [facility] [place] [address] Psychiatry 08/06/22 Escalator Mechanic Relationship Specialty Start Date End Date Santhosh Holden MD [address] [place] [address] PCP - General Family Medicine 11/17/14 Nabor Nicole MD [address] [place], [place] 577371 Consulting General Surgery 01/25/21 Johanna Lincoln Md [address] [place], [place] [address]396 Psychiatry 08/06/22 Escalator Mechanic Relationship Specialty Start Date End Date Santhosh Holden MD [address] [place], [place] [address] PCP - General Family Medicine 11/17/14 Nabor Nicole MD [address] [place], [place] [id number] Consulting General Surgery 01/25/21 [place] [address] [place] [address] Psychiatry 08/06/22 Escalator Mechanic Relationship Specialty Start Date End Date Ronal DO Nory [address] [facility] [place] [address] Physician Electrophysiology 12/27/19 Shruthi Montenegro DMD [address] [facility] [place] [address] Physician Oral & Maxillofacial Surgery 12/27/19 Escalator Mechanic Relationship Specialty Start Date End Date Santhosh Holden MD [address] [place], [place] [address]11 PCP - General Family Medicine 11/17/14 Nabor Nicole MD [address] [place] [address] Consulting General Surgery 01/25/21 Johanna Lincoln Md [address] [place] [address] Psychiatry 08/06/22 Escalator Mechanic Relationship Specialty Start Date End Date Santhosh Holden MD [address] [place] [address] PCP - General Family Medicine 11/17/14 Nabor Nicole MD [address] [place] [address] Consulting General Surgery 01/25/21 Johanna Lincoln Md [address] [place] [address] Psychiatry 08/06/22 Escalator Mechanic Relationship Specialty Start Date End Date Santhosh Holden MD [address] [place] [address] PCP - General Family Medicine 11/17/14 Nabor Nicole MD [address] [place] [address] Consulting General Surgery 01/25/21 Johanna Lincoln Md [address] [facility] [place] [address] Psychiatry 08/06/22 Escalator Mechanic Relationship Specialty Start Date End Date Santhosh Holden MD [address] [place] [address] PCP - General Family Medicine 11/17/14 Nabor Nicole MD [address] [place] [address] Consulting General Surgery 01/25/21 Johanna Lincoln Md [address] [place] [address] Psychiatry 08/06/22 Escalator Mechanic Relationship Specialty Start Date End Date Santhosh Holden MD [address] [place] [address] PCP - General Family Medicine 11/17/14 Nabor Nicole MD [address] [place] [address] Consulting General Surgery 01/25/21 Johanna Lincoln Md [address] [facility] [place] [address] Psychiatry 08/06/22 Escalator Mechanic Relationship Specialty Start Date End Date Santhosh Holden MD [address] [place] [address] PCP - General Family Medicine 11/17/14 Nabor Nicole MD [address] [place] [address] Consulting General Surgery 01/25/21 Johanna Lincoln Md [address] [place] [address] Psychiatry 08/06/22 Escalator Mechanic Relationship Specialty Start Date End Date Santhosh Holden MD [address] [place] [address] PCP - General Family Medicine 11/17/14 Nabor Nicole MD [address] [place] [address] Consulting General Surgery 01/25/21 Johanna Lincoln Md [address] [facility] [address] Psychiatry 08/06/22 Escalator Mechanic Relationship Specialty Start Date End Date Santhosh Holden MD [address] [place] [address] PCP - General Family Medicine 11/17/14 Nabor Nicole MD [address] [place] [address] Consulting General Surgery 01/25/21 Escalator Mechanic Relationship Specialty Start Date End Date Santhosh Holden MD [address] [place] [address] PCP - General Family Medicine 11/17/14 Nabor Nicole MD [address] [place] [address] Consulting General Surgery 01/25/21 Escalator Mechanic Relationship Specialty Start Date End Date Santhosh Holden MD [address] [place] [address] PCP - General Family Medicine 11/17/14 Nabor Nicole MD [address] [place] [address] Consulting General Surgery 01/25/21 Johanna Lincoln Md [address] [place] [address] Psychiatry 08/06/22 Escalator Mechanic Relationship Specialty Start Date End Date Santhosh Holden MD [address] [facility] [place], [place] [address] PCP - General Family Medicine 11/17/14 Escalator Mechanic Relationship Specialty Start Date End Date Santhosh Holden MD [address] [facility] [place], [place] [address] PCP - General Family Medicine 11/17/14 Nabor Nicole MD [address] [facility] [place] [address] Consulting General Surgery 01/25/21 Johanna Lincoln Md [address] [place] [address] Psychiatry 08/06/22 Escalator Mechanic Relationship Specialty Start Date End Date Santhosh Holden MD [address] [facility] [place] [address] PCP - General Family Medicine 11/17/14 Nabor Nicole MD [address] [facility] [place] [address] Consulting General Surgery 01/25/21 Johanna Lincoln Md [address] [facility] [place] [address] Psychiatry 08/06/22 Escalator Mechanic Relationship Specialty Start Date End Date Santhosh Holden MD [address] [facility] [place], [place] [address] PCP - General Family Medicine 11/17/14 Nabor Nicole MD [address] [facility] [place] [address] Consulting General Surgery 01/25/21 Johanna Lincoln Md [address] [place] [address] Psychiatry 08/06/22 Escalator Mechanic Relationship Specialty Start Date End Date Santhosh Holden MD [address] [facility] [place] [address] PCP - General Family Medicine 11/17/14 Nabor Nicole MD [address] [place] [address] Consulting General Surgery 01/25/21 Johanna Lincoln Md [address] [place] [address] Psychiatry 08/06/22 Saumya Vargas APRN.ACQUISITION ASSOCIATE [address] [facility] [place] [address] Bandsaw Operator Family Medicine 02/29/24 Nanette Carroll APRN.ACQUISITION ASSOCIATE [address] [facility] [place] [address] Bandsaw Operator Family Medicine 02/29/24 Escalator Mechanic Relationship Specialty Start Date End Date Santhosh Holden MD [address] [place] [address] PCP - General Family Medicine 11/17/14 Nabor Nicole MD [address] [facility] [place] [address] Consulting General Surgery 01/25/21 Johanna Lincoln Md [address] [place] [address] Psychiatry 08/06/22 Saumya Vargas, DIRECTOR HR COMMUNICATIONS.ACQUISITION ASSOCIATE [address] [place] [address] Bandsaw Operator Family Medicine 02/29/24 Nanette Carroll DIRECTOR HR COMMUNICATIONS.ACQUISITION ASSOCIATE [address] [facility] [place] [address] Bandsaw Operator Family [facility] 02/29/24 Escalator Mechanic Relationship Specialty Start Date End Date Santhosh Holden MD [address] [facility] [place] [address] PCP - General Family Medicine 11/17/14 Nabor Nicole MD [address] [place] [address] Consulting General Surgery 01/25/21 Johanna Lincoln Md [address] [place] [address] Psychiatry 08/06/22 Saumya Vargas, DIRECTOR HR COMMUNICATIONS.ACQUISITION ASSOCIATE [address] [place] [address] Bandsaw Operator Family Medicine 02/29/24 Nanette Carroll, DIRECTOR HR COMMUNICATIONS.ACQUISITION ASSOCIATE [address] [facility] [place] [address] Bandsaw Operator Family [facility] 02/29/24 Escalator Mechanic Relationship Specialty Start Date End Date Santhosh Holden MD [address] [facility] [place] [address] PCP - General Family Medicine 11/17/14 Nabor Nicole MD [address] [place] [address] Consulting General Surgery 01/25/21 Johanna Lincoln Md [address] [place] [address] Psychiatry 08/06/22 Saumya Vargas, DIRECTOR HR COMMUNICATIONS.ACQUISITION ASSOCIATE [address] [place] [address] Bandsaw Operator Family Medicine 02/29/24 Nanette Carroll APRN.ACQUISITION ASSOCIATE [address] [place] [address] Bandsaw Operator Family Medicine 02/29/24 Escalator Mechanic Relationship Specialty Start Date End Date Santhosh Holden MD [address] [place] [address] PCP - General Family Medicine 11/17/14 Nabor Nicole MD [address] [place] [address] Consulting General Surgery 01/25/21 Johanna Lincoln Md [address] [place] [address] Psychiatry 08/06/22 Saumya Vargas, DIRECTOR HR COMMUNICATIONS.ACQUISITION ASSOCIATE [address] [place] [address] Bandsaw Operator Family Medicine 02/29/24 Nanette Carroll DIRECTOR HR COMMUNICATIONS.ACQUISITION ASSOCIATE [address] [place] [address] Bandsaw Operator Family Medicine 02/29/24 Escalator Mechanic Relationship Specialty Start Date End Date Santhosh Holden MD [address] [address] PCP - General Family Medicine 11/17/14 Nabor Nicole MD [address] [address] Consulting General Surgery 01/25/21 Johanna Lincoln Md [address] [place] [address] Psychiatry 08/06/22 Saumya Vargas APRN.ACQUISITION ASSOCIATE [address] [place] [address] Bandsaw Operator Family Medicine 02/29/24 Nanette Carroll APRN.ACQUISITION ASSOCIATE [address] [facility] [place] [address] Bandsaw Operator Family Medicine 02/29/24 Escalator Mechanic Relationship Specialty Start Date End Date Santhosh Holden MD [address] [address] PCP - General Family Medicine 11/17/14 Nabor Nicole MD [address] [facility] [place] [address] Consulting General Surgery 01/25/21 Johanna Lincoln Md [address] [place] [address] Psychiatry 08/06/22 Saumya Vargas APRN.ACQUISITION ASSOCIATE [address] [facility] [place] [address] Bandsaw Operator Family Medicine 02/29/24 Nanette Carroll DIRECTOR HR COMMUNICATIONS.ACQUISITION ASSOCIATE [address] [facility] [place] [address] Bandsaw Operator Family Medicine 02/29/24 Escalator Mechanic Relationship Specialty Start Date End Date Santhosh Holden MD [address] [place], [place] [address] PCP - General Family Medicine 11/17/14 Nabor Nicole MD [address] [facility] [place] [address] Consulting General Surgery 01/25/21 Johanna Lincoln Md [address] [facility] [place] [address] Psychiatry 08/06/22 Saumya Vargas APRN.ACQUISITION ASSOCIATE [address] [facility] [place] [address] Bandsaw Operator Family Medicine 02/29/24 Nanette Carroll DIRECTOR HR COMMUNICATIONS.ACQUISITION ASSOCIATE [address] [facility] [place] [address] Bandsaw Operator Family Medicine 02/29/24 Escalator Mechanic Relationship Specialty Start Date End Date Santhosh Holden MD [address] [address] PCP - General Family Medicine 11/17/14 Nabor Nicole MD [address] [facility] [place] [address] Consulting General Surgery 01/25/21 Johanna Lincoln Md [address] [facility] [place] [address] Psychiatry 08/06/22 Saumya Vargas, DIRECTOR HR COMMUNICATIONS.ACQUISITION ASSOCIATE [address] [facility] [place] [address] Bandsaw Operator Family Medicine 02/29/24 Nanette Carroll APRN.ACQUISITION ASSOCIATE [address] [facility] [place] [address] Bandsaw Operator Family Medicine 02/29/24 Escalator Mechanic Relationship Specialty Start Date End Date Santhosh Holden MD [address] [facility] [place] [address] PCP - General Family Medicine 11/17/14 Nabor Nicole MD [address] [facility] [place] [address] Consulting General Surgery 01/25/21 Johanna Lincoln Md [address] [place] [address] Psychiatry 08/06/22 Saumya Vargas, DIRECTOR HR COMMUNICATIONS.ACQUISITION ASSOCIATE [address] [facility] [place] [address] Bandsaw Operator Family Medicine 02/29/24 Nnaette Carroll DIRECTOR HR COMMUNICATIONS.ACQUISITION ASSOCIATE [address] [facility] [place] [address] Bandsaw Operator Family Medicine 02/29/24 Escalator Mechanic Relationship Specialty Start Date End Date Santhosh Holden MD [address] [address] PCP - General Family Medicine 11/17/14 Nabor Nicole MD [address] [place] [address] Consulting General Surgery 01/25/21 Johanna Lincoln Md [address] [place] [address] Psychiatry 08/06/22 Saumya Vargas, VIC.ACQUISITION ASSOCIATE [address] [place] [address] Bandsaw Operator Family Medicine 02/29/24 Nanette Carroll APRN.ACQUISITION ASSOCIATE [address] [place] [address] Bandsaw Operator Family Medicine 02/29/24 Escalator Mechanic Relationship Specialty Start Date End Date Santhosh Holden MD [address] [place] [address] PCP - General Family Medicine 11/17/14 Nabor Nicole MD [address] [place] [address] Consulting General Surgery 01/25/21 Johanna Lincoln Md [address] [place] [address] Psychiatry 08/06/22 Saumya Vargas, VIC.ACQUISITION ASSOCIATE [address] [place] [address] Bandsaw Operator Family Medicine 02/29/24 Nanette Carroll APRN.ACQUISITION ASSOCIATE [address] [place] [address] Bandsaw Operator Family Medicine 02/29/24 Escalator Mechanic Relationship Specialty Start Date End Date Santhosh Holden MD [address] [facility] [place] [address] PCP - General Family Medicine 11/17/14 Nabor Nicole MD [address] [facility] [place] [address] Consulting General Surgery 01/25/21 Johanna Lincoln Md [address] [facility] [place] [address] Psychiatry 08/06/22 Saumya Vargas APRN.ACQUISITION ASSOCIATE [address] [facility] [place] [address] Bandsaw Operator Family Medicine 02/29/24 Nanette Carroll APRN.ACQUISITION ASSOCIATE [address] [place] [address] Bandsaw Operator Family Medicine 02/29/24 Escalator Mechanic Relationship Specialty Start Date End Date Santhosh Holden MD [address] [place] [address] PCP - General Family Medicine 11/17/14 Nabor Nicole MD [address] [place] [address] Consulting General Surgery 01/25/21 Johanna Lincoln Md [address] [facility] [place] [address] Psychiatry 08/06/22 Saumya Vargas APRN.ACQUISITION ASSOCIATE [address] [facility] [place] [address] Bandsaw Operator Family Medicine 02/29/24 Nanette Carroll APRN.ACQUISITION ASSOCIATE [address] [address] Bandsaw Operator Family Medicine 02/29/24 Escalator Mechanic Relationship Specialty Start Date End Date Santhosh Holden MD [address] [address] PCP - General Family Medicine 11/17/14 Nabor Nicole MD [address] [facility] [place] [address] Consulting General Surgery 01/25/21 Johanna Lincoln Md [address] [address] [address] [facility] [place] [address] Psychiatry 08/06/22 Saumya Vargas, DIRECTOR HR COMMUNICATIONS.ACQUISITION ASSOCIATE [address] [facility] [place] [address] Bandsaw Operator Family Medicine 02/29/24 Nanette Carroll DIRECTOR HR COMMUNICATIONS.ACQUISITION ASSOCIATE [address] [address] Bandsaw Operator Family Medicine 02/29/24 Escalator Mechanic Relationship Specialty Start Date End Date Santhosh Holden MD [address] [address] PCP - General Family Medicine 11/17/14 Nabor Nicole MD [address] [facility] [place] [address] Consulting General Surgery 01/25/21 Johanna Lincoln Md [address] [facility] [address] Psychiatry 08/06/22 Saumya Vargas APRN.ACQUISITION ASSOCIATE [address] [place] [address] Bandsaw Operator Family Medicine 02/29/24 Nanette Carroll APRN.ACQUISITION ASSOCIATE [address] [place] [address] Bandsaw Operator Family Medicine 02/29/24 Escalator Mechanic Relationship Specialty Start Date End Date Santhosh Holden MD [address] [place] [address] PCP - General Family Medicine 11/17/14 Nabor Nicole MD [address] [place] [address] Consulting General Surgery 01/25/21 Johanna Lincoln Md [address] [place] [address] Psychiatry 08/06/22 Saumya Vargas APRN.ACQUISITION ASSOCIATE [address] [place] [address] Bandsaw Operator Family Medicine 02/29/24 Nanette Carroll APRN.ACQUISITION ASSOCIATE [address] [place] [address] Bandsaw Operator Family Medicine 02/29/24 Escalator Mechanic Relationship Specialty Start Date End Date Santhosh Holden MD [address] [place] [address] PCP - General Family Medicine 11/17/14 Nabor Nicole MD [address] [facility] [place] [address] Consulting General Surgery 01/25/21 Johanna Lincoln Md [address] [place] [address] Psychiatry 08/06/22 Saumya Vargas APRN.ACQUISITION ASSOCIATE [address] [facility] [place] [address] Bandsaw Operator Family Medicine 02/29/24 Nanette Carroll APRN.ACQUISITION ASSOCIATE [address] [facility] [place] [address] Bandsaw Operator Family Medicine 02/29/24 Escalator Mechanic Relationship Specialty Start Date End Date Santhosh Holden MD [address] [facility] [place] [address] PCP - General Family Medicine 11/17/14 Nabor Nicole MD [address] [facility] [place] [address] Consulting General Surgery 01/25/21 Johanna Lincoln Md [address] [place] [address] Psychiatry 08/06/22 Saumya Vargas APRN.ACQUISITION ASSOCIATE [address] [facility] [place] [address] Bandsaw Operator Family Medicine 02/29/24 Nanette Carroll APRN.ACQUISITION ASSOCIATE [address] [facility] [place] [address] Bandsaw Operator Family Medicine 02/29/24 Escalator Mechanic Relationship Specialty Start Date End Date Santhosh Holden MD [address] [place] [address] PCP - General Family Medicine 11/17/14 Nabor Nicole MD [address] [place] [address] Consulting General Surgery 01/25/21 Johanna Lincoln Md [address] [place] [address] Psychiatry 08/06/22 Saumya Vargas APRN.ACQUISITION ASSOCIATE [address] [place] [address] Bandsaw Operator Family Medicine 02/29/24 Nanette Carroll APRN.ACQUISITION ASSOCIATE [address] [place] [address] Bandsaw Operator Family Medicine 02/29/24 Escalator Mechanic Relationship Specialty Start Date End Date Santhosh Holden MD [address] [place] [address] PCP - General Family Medicine 11/17/14 Nabor Nicole MD [address] [place] [address] Consulting General Surgery 01/25/21 Johanna Lincoln Md [address] [facility] [place] [address] Psychiatry 08/06/22 Saumya Vargas APRN.ACQUISITION ASSOCIATE [address] [place] [address] Bandsaw Operator Family Medicine 02/29/24 Nanette Carroll APRN.ACQUISITION ASSOCIATE [address] [facility] [place] [address] Bandsaw Operator Family [facility] 02/29/24 Escalator Mechanic Relationship Specialty Start Date End Date Santhosh Holden MD [address] [place] [address] PCP - General Family Medicine 11/17/14 Nabor Nicole MD [address] [facility] [place] [address] Consulting General Surgery 01/25/21 Johanna Lincoln Md [address] [facility] [place] [address] Psychiatry 08/06/22 Saumya Vargas APRN.ACQUISITION ASSOCIATE [address] [facility] [place] [address] Bandsaw Operator Family [facility] 02/29/24 Nanette Carroll, DIRECTOR HR COMMUNICATIONS.ACQUISITION ASSOCIATE [address] [facility] [place] [address] Bandsaw Operator [facility] 02/29/24 Escalator Mechanic Relationship Specialty Start Date End Date Santhosh Holden MD [address] [facility] [place] [address] PCP - General Family Medicine 11/17/14 Nabor Nicole MD [address] [facility] [place] [address] Consulting General Surgery 01/25/21 Johanna Lincoln Md [address] [place], [place] [id number] Psychiatry 08/06/22 Saumya Vargas APRN.ACQUISITION ASSOCIATE [address] [facility], [place] [address] [facility] 02/[facility]24 Nanette Carroll APRN.ACQUISITION ASSOCIATE [address] [facility], [place] [id number] [facility] 02/29/24 Escalator Mechanic Relationship Specialty Start Date End Date Santhosh Holden MD [address] [facility], [place] [address] PCP - General Family Medicine 11/17/14 Nabor Nicole MD [address] [place] [address] [facility] General Surgery 01/25/21 Johanna Lincoln Md [address] [place] [address] Psychiatry 08/06/22 Saumya Vargas APRN.ACQUISITION ASSOCIATE [address] [facility] [place] [address] [facility] 02/29/24 Nanette Carroll DIRECTOR HR COMMUNICATIONS.ACQUISITION ASSOCIATE [address] [place] [address] [facility] 02/29/24 Team Status: Active Member Role Status Dates Dr. Santhosh Holden MD Primary Care Provider Active Team Status: Inactive Member Role Status Dates Dr. Santhosh Holden MD Primary Care Provider Active Start: August 29, 2024 End: August 29, 2024 Dr. Sachin Walton DO Emergency Provider Activ e Start: August 29, 2024 End: August 29, 2024 Escalator Mechanic Relationship Specialty Start Date End Date Santhosh Holden MD [address] [place], [place] [id number] PCP - General Family Medicine 11/17/14 Nabor Nicole MD [address] [place], [place] [id number] Consulting General Surgery 01/25/21 Johanna Lincoln Md [address] [facility] [place] [address] Psychiatry 08/06/22 Saumya Vargas APRN.ACQUISITION ASSOCIATE [address] [place], [place] [id number] Bandsaw Operator [facility] 02/29/24 Nanette Carroll APRN.ACQUISITION ASSOCIATE [address] [place], [place] [id number] Bandsaw Operator [facility] 02/29/24 Goals (unrecognized section and content) Goals may [...] BE BASED ON THE PRIMARY CLINICAL RECORDS. [facility]. provides no warranty or guarantee of the accuracy or completeness of information in this document.
[2024-09-09 22:10] LABS: Magnesium 1.5 mg/dL (1.5-2.2); Vitamin B12 790 pg/mL (180-914)
[2024-09-09] MEDS: 0.9% Normal Saline (1000mL) 1,000 ML 100 ML IV (22:17)
[2024-09-09] MEDS: Lactobacillis Acidophilus 1 CAP PO (22:42)
[2024-09-09] MEDS: Pantoprazole Sodium 40 MG Tablet PO (22:42)
[2024-09-09] MEDS: buPROPion (SR) 100 MG TABLET.SA 200 MG PO (22:42)
[2024-09-09] MEDS: lamoTRIgine 100 MG Tablet 400 MG PO (22:42)
[2024-09-09] MEDS: Topiramate 50 MG Tablet PO (22:42)
[2024-09-09] MEDS: Thyroid 60 MG Tablet PO (22:43)
[2024-09-09 22:44] LABS: Hemoglobin A1c 4.8 % (<=5.6)
[2024-09-09 22:48] LABS: Bedside Glucose 99 mg/dL (74-106)
[2024-09-09 23:00] LABS: Alcohol, Blood (Medical)-Serum < 10.1 mg/dL (<=10.0)
[2024-09-09 23:18] LABS: FOLATES,SERUM (FOLIC ACID) 6.24 ng/mL (4.60-34.80)
[2024-09-09 23:42] LABS: Amphetamine Urine NEGATIVE (<1000 ng/mL); Barbiturate Urine NEGATIVE (< 200 ng/mL); Benzodiazepine Urine PRESUMPTIVE POSITIVE (< 200 ng/mL); Buprenorphine Urine NEGATIVE (< 200 ng/mL); Cocaine Urine NEGATIVE (< 300 ng/mL); Fentanyl, Urine NEGATIVE; Methadone Urine PRESUMPTIVE POSITIVE (< 300 ng/mL); Opiates Urine NEGATIVE (< 300 ng/mL); Oxycodone, Urine NEGATIVE (< 100 ng/mL); PCP Urine NEGATIVE (< 25 ng/mL); THC Urine NEGATIVE (< 50 ng/mL)
--- NOTE | 2024-09-09 23:56 | CPS ---
Patient was asked if she needs a CPAP for her stay here, patient stated she is supposed to wear a CPAP but does not and does not wish to have one here to wear.
[2024-09-10] VITALS (8 sets, daily range): BP systolic 132–146; BP diastolic 67–81; PULSE 65–93; RESP 15–18; TEMP 36.3–37.1; O2SAT 93–96; BMI 24.3
[2024-09-10] MEDS: Carbidopa/Levodopa 25/100 Tablet PO ×3 (06:17→16:22)
[2024-09-10] MEDS: Gabapentin 300 MG Capsule 900 MG PO (06:17)
[2024-09-10 06:51] LABS: Absolute Lymphocyte Count 2.24 X10^3/uL (0.83-4.51); Absolute Neutrophil Count 3.1 X10^3/uL (2.0-7.7); Basophil# 0.02 X10^3/uL; Basophil% 0.4 % (0-1); Eosinophil# 0.02 X10^3/uL; Eosinophils% 0.4 % (0-5); Hematocrit 28.1 % (37-47); Hemoglobin 9.6 g/dL (12.0-15.0); Lymphocyte # 2.24 X10^3/ul (0.83-4.51); Lymphocyte % 39.9 % (19-41); Mean Corp Hgb Conc 34.2 g/dL (32-36); Mean Corpuscular Volume 87.8 fL (81-99); Mean Platelet Vol. 10.4 fl (6.2-12.0); Monocyte# 0.26 X10^3/uL; Monocyte% 4.6 % (0-10); NRBC Flagged by Analyzer 0 % (0-5); Neutrophil # 3.05 X10^3/uL (2.7-7.7); Neutrophil % 54.3 % (47-70); Platelet Count 191 K/mm3 (150-450); RBC Distribution Width CV 12.7 % (11.6-14.6); RBC Distribution Width SD 40.6 fl (35.1-43.9); White Blood Count 5.6 K/mm3 (4.4-11.0)
[2024-09-10 06:57] LABS: Bedside Glucose 89 mg/dL (74-106)
[2024-09-10 07:29] LABS: ALB/GLOB Ratio 1.5 RATIO (0.9-2.4); AST(SGOT) 15 U/L (<=31); Alanine Aminotransfer ALT/SGPT 5 U/L (<=34); Albumin, Serum 3.3 g/dL (3.4-4.8); Alkaline Phosphatase 31 U/L (35-104); Anion Gap 12 (5-15); BUN 17 mg/dL (4-19); BUN/Creat Ratio 13.9 RATIO (10-20); Calcium,Total 8.7 mg/dL (7.6-11.0); Carbon Dioxide 20.7 mmol/L (21.0-32.0); Chloride 108 mmol/L (98-108); Cholesterol 138 mg/dL (<=200); Creatinine, Serum 1.22 mg/dL (0.70-1.20); EST Glomerular Filtration Rate 50 (>60); Estimated Creatinine Clearance 48.85 ml/min (50-250); Globulin 2.3 g/dL (2.2-4.2); Glucose 98 mg/dL (70-99); High Density Lipoprotein 57 mg/dL; Low Density Lipoprotein Calc. 44 mg/dL; Phosphorus 2.8 mg/dL (2.7-4.5); Potassium 3.4 mmol/L (3.3-5.1); Protein, Total 5.6 g/dL (5.9-8.4); Sodium Level 140 mmol/L (133-145); Total Bilirubin 0.35 mg/dL (0.00-1.30); Triglycerides 183 mg/dL; Very Low Density Lipoprotein 37 mg/dL (5-40); cholesterol:hdl ratio screen 2.42
[2024-09-10] MEDS: 0.9% Normal Saline (1000mL) 1,000 ML 100 ML IV (08:22)
--- NOTE | 2024-09-10 11:18 | PN.HOSP_ITS ---
Reason for Visit Reason for Visit: Diagnoses Other specified anxiety disorders (09/09/24) Parkinsonism, unspecified (09/09/24) Acute kidney failure, unspecified (09/09/24) Acute cystitis without hematuria (09/09/24) Difficulty in walking, not elsewhere classified (09/09/24) Repeated falls (09/09/24) Transient alteration of awareness (09/09/24) Altered mental status, unspecified (09/09/24) Weakness (09/09/24) Other long term care pharmacist (current) drug therapy (09/09/24) Objective Data Objective Data Vital Signs: Vital Signs Temp Pulse Resp BP Pulse Ox O2 Del Method 97.9 F 69 16 132/67 H 95 Room Air 09/10/24 08:19 09/10/24 08:19 09/10/24 08:19 09/10/24 08:19 09/10/24 10:58 09/10/24 10:58 Oxygen Delivery Method Room Air Weight: 160 lb 7.944 oz Body Mass Index (BMI) 24.3 Intake & Output: Intake and Output for Last 24 Hours 09/08/24 09/09/24 09/10/24 23:59 23:59 23:59 Intake Total 1050 / 1050 1000 / 1000 Balance 1050 / 1050 1000 / 1000 Lab / Micro Data 09/10/24 06:05 09/10/24 06:05 Labs: Laboratory Results - last 24 hr 09/09/24 16:30: WBC 8.2, RBC 3.90 L, Hgb 11.5 L, Hct 33.9 L, MCV 86.9, MCH 29.5, MCHC 33.9, RDW Std Deviation 39.9, RDW Coeff of Yuliana 12.7, Plt Count 235, MPV 10.4, Immature Gran % (Auto) 0.400, Neut % (Auto) 74.3 H, Lymph % (Auto) 21.0, Reagan % (Auto) 4.1, Eos % (Auto) 0.0, Baso % (Auto) 0.2, Absolute Neuts (auto) 6.1, Absolute Lymphs (auto) 1.72, Nucleated RBC % 0, Sodium 138, Potassium 4.0, Chloride 104, Carbon Dioxide 20.6 L, Anion Gap 14, BUN 21 H, Creatinine 1.34 H, Est GFR (MDRD) Non-Af 45 L, BUN/Creatinine Ratio 15.5, Glucose 127 H, Lactic Acid 1.2, Calcium 9.4, Magnesium 1.5, Vitamin B12 790, TSH 1.980 09/09/24 16:53: Urine Color Straw, Urine Clarity Cloudy, Urine pH 5.0, Ur Specific [place] 1.020, Urine Protein 30 H, Urine Glucose (UA) Normal, Urine Ketones Negative, Urine Occult Blood Negative, Urine Nitrite Negative, Urine Bilirubin Negative, Urine Urobilinogen Normal, Ur Leukocyte Esterase 100 H, Urine RBC 0-5 SEEN, Urine WBC 10-25 SEEN, Ur Squamous Epith Cells 5-10 SEEN, Urine Bacteria 4+, Urine Mucus 0 SEEN 09/09/24 21:43: Hemoglobin A1c 4.8, Serum Folate 6.24, Ethyl Alcohol < 10.1 09/09/24 22:19: POC Glucose 99 09/09/24 22:40: Urine Opiates Screen NEGATIVE, U Buprenorphine Qual NEGATIVE, Ur Oxycodone Screen NEGATIVE, Urine Methadone Screen PRESUMPTIVE POSITIVE, Urine Fentanyl Screen NEGATIVE, Ur Barbiturates Screen NEGATIVE, Ur Phencyclidine Scrn NEGATIVE, Ur Amphetamines Screen NEGATIVE, U Benzodiazepines Scrn PRESUMPTIVE POSITIVE, Urine Cocaine Screen NEGATIVE, U Cannabinoids Screen NEGATIVE 09/10/24 06:05: WBC 5.6, RBC 3.20 L, Hgb 9.6 L, Hct 28.1 L, MCV 87.8, MCH 30.0, MCHC 34.2, RDW Std Deviation 40.6, RDW Coeff of Yuliana 12.7, Plt Count 191, MPV 10.4, Immature Gran % (Auto) 0.400, Neut % (Auto) 54.3, Lymph % (Auto) 39.9, Reagan % (Auto) 4.6, Eos % (Auto) 0.4, Baso % (Auto) 0.4, Absolute Neuts (auto) 3.1, Absolute Lymphs (auto) 2.24, Nucleated RBC % 0, Sodium 140, Potassium 3.4, Chloride 108, Carbon Dioxide 20.7 L, Anion Gap 12, BUN 17, Creatinine 1.22 H, Estim Creat Clear Calc 48.85 L, Est GFR (MDRD) Non-Af 50 L, BUN/Creatinine Ratio 13.9, Glucose 98, Calcium 8.7, Phosphorus 2.8, Total Bilirubin 0.35, AST 15, ALT 5, Alkaline Phosphatase 31 L, Total Protein 5.6 L, A lbumin 3.3 L, Globulin 2.3, Albumin/Globulin Ratio 1.5, Triglycerides 183, Cholesterol 138, LDL Cholesterol, Calc 44, VLDL Cholesterol 37, HDL Cholesterol 57, Cholesterol/HDL Ratio 2.42 09/10/24 06:16: POC Glucose 89 Radiography Diagnostic Testing: Radiology Impression Brain CT 09/09/24 16:44 IMPRESSION: 1. Small vessel ischemic/degenerative changes. 2. Generalized brain atrophy. 3. No acute intracranial hemorrhage, midline shift or mass effect. If symptoms persist, further evaluation with MRI is recommended. Reading Location: [facility] Chest X-Ray 09/09/24 17:06 IMPRESSION: Pulmonary venous congestion. Reading Location: [facility] Physical Exam Narrative Seen and examined. Discussed with the patient's at the bedside. Patient had 2 falls this month and had a head laceration at the first fall, shot passing out and had jonathan on 08/29 in ED. She is not having adequate oral intake and dehydrated. Denies burning micturition or acute lower intact symptoms. She also had altered mental status. Physical exam General: Awake, Oriented x3, Cooperative HEENT: Atraumatic, PERRLA, EOMI, Normocephalic. Oral: No Gingival or Mucosal Lesions/ Ulcerations Neck: Supple, No JVD, Negative Carotid Bruits Chest wall/Lungs: Air entry diminished in bilateral lung bases. No crepitation/rhonchi Cardiovascular: Regular rate and rhythm, Normal S1,S2, No M/G/R Abdomen: Bowel Sounds Present, Soft, Non Tender, Non-Distended : No dysuria. No renal angle tenderness. No suprapubic tenderness. Extremities: No edema, Capillary Refill Less than 3 Seconds Skin: No rashes, No breakdown Musculoskeletal: No Tenderness to Palpation of Joints or Extremities. Muscle strength 5/5 at knee and hip joints. Mild disequilibrium Neurological: Cranial nerves II-XII grossly intact, DTR 2+/4. No acute focal neurological deficit. Psych/Mental Status: Flat affect, slow but responding appropriately Assessment & Plan Assessment/Plan (1) Acute cystitis without hematuria: (2) MORE (acute kidney injury): (3) Altered mental status: QUALIFIERS: Altered mental status type: transient alteration of awareness Qualified Code(s): R40.4 - Transient alteration of awareness (4) Recurrent falls: (5) Generalized weakness: (6) Ambulatory dysfunction: (7) Parkinsonian tremor: (8) Depression with anxiety: (9) Polypharmacy: PLAN: Plan 58-year-old female was sent from PCP office for altered mental status. She had 2 recent fall with head injury on on both occasions. After first fall she was stapled for any injury. 08/29 and 09/02. She had negative CT scan 1. Abnormal UA: Clinically patient does not have acute urinary tract symptoms. UA positive of LE 100, WBC 10-25 cells, squamous epithelial 5-10 so therefore not a good sample. Urine culture pending. Empirically on IV ceftriaxone. 2. Suspected MORE; with elevated serum creatinine of 1.34 mg/dL present on admission (up from her previous baseline of 0.92 mg/dL): Repeat BUN/creatinine 17/1.22, improving. Continue IV fluid. Acute encephalopathy possible metabolic, history of cognitive impairment, unclear about dementia, anxiety and depression: Patient has generalized weakness/fatigue with 2 recurrent fall this month with impaired balance and disequilibrium. Encephalopathy has improved. PT/OT and Case Management. Given the order to remove the staple on the head. Had [address] head. Possible postconcussion. Polypharmacy is patient on bupropion vortioxetine, clonazepam twice daily Lamictal, gabapentin and Topamax. Discussed with the neurologist and pharmacist. Bupropion and vortioxetine dose decreased to 100 mg twice daily and 10 mg daily respectively. Gabapentin dose decreased to 600 mg 3 times daily. Clonazepam 1 mg twice daily as needed. Continue Topamax. She is not taking tizanidine therefore discontinue. Discontinue Claritin. B12 normal. TSH normal. Magnesium 1.5, replacing Parkinsonian tremor , unclear etiology, on carbidopa-levodopa TID . Medications reviewed. She is not on antipsychotic medications. DM-2; of unknown control on metformin plus diabetic neuropathy; on gabapentin TID - ADA diet. A1c 4.8. Essential hypertension; on lisinopril and metoprolol -on metoprolol. Hold lisinopril Hyperlipidemia; on rosuvastatin - Hold statin in case of myotoxicity contributing to #4. check Lipid Profile and consider alternative agent. Hypothyroidism; on Slaughter thyroid - Maintain thyroid hormone replacement and check TSH. Former obesity; on semaglutide -she lost the weight and currently on goal 24.4 kg/m?. Restart this agent as outpatient. Migraine headaches; on topiramate and prn prochlorperazine BID - Continue present therapy. 14. Chronic NESTOR; on ferrous sulfate - Stable with hemoglobin of 11.5 g/dL and MCV of 86.9 fL present on admission. 15. KRZYSZTOF - Continue nocturnal CPAP. 16. GERD; with history of Powers's esophagus on pantoprazole daily - Maintain PPI. 17. OA - Stable. 18. DVT prophylaxis - Enoxaparin 40 mg sq daily plus SCD's Total time of the visit including total time spent in counseling or coordination of care, (more than 50% of the total time, spent in obtaining medical information from nurses and other ancillary care providers ,explaining to the patient about labs, imaging, diagnosis and management of active complex medical conditions), discussion with the neurologist, pharmacist and clinical update given to , review of labs and imaging is 35 minutes. Charges/Coding Visit Charges Inpatient E&M: 65628 Subs Hosp L3
[2024-09-10] MEDS: Thyroid 60 MG Tablet PO (11:53)
[2024-09-10] MEDS: Enoxaparin 40 MG/0.4 ML Syringe SC (11:53)
[2024-09-10] MEDS: Loratadine 10 MG Tablet PO (11:53)
[2024-09-10] MEDS: Pantoprazole Sodium 40 MG Tablet PO (11:54)
[2024-09-10] MEDS: Topiramate 50 MG Tablet PO (11:55)
[2024-09-10] MEDS: Metoprolol(XL)Succ 25 MG Tablet PO (11:55)
[2024-09-10] MEDS: Fenofibrate 48 MG Tablet PO (11:57)
--- NOTE | 2024-09-10 12:13 | NEURO.CONS ---
Assessment and Plan: Neuro Assessment/Plan 59 yo woman with history of cognitive impairment, who is presenting with increased frequency of falls, worsening altered mental status, fatigue, decreased PO intake, after she has had 2 falls over the past 10 days with impact to the head, found to also have UTI, MORE Presentation likely related to post concussion, toxic metabolic encephalopathy in the setting of MORE, UTI, polypharmacy (she is on bupropion, vortioxetine, clonazepam BID, Lamictal , Gabapentin, Tizanidine, Topamax), with underlying baseline cognitive impairment She also has parkinsonian features on exam and per chart review it is mentioned that she has parkinsonian tremor attributed o adverse side effects of psychiatric medications, however upon review of home meds, she is not on antipsychotic meds, and the only medication she is on with potential medication induced parkinsonism is Prochlorperazine. Recommendations: Treatment of UTI, MORE PT/OT Home medication reconciliation per primary team, consult with pharmacist Would monitor with treatment of UTI, MORE, hydration and nutrition, if no improvement over the next couple days can obtain MRI brain I suspect she has parkinsonian syndrome with dementia, recommend following up with neurology in clinic. Would continue home Sinemet for now. I personally attended this patient and spent a total time of 45 minutes evaluating this patient including clinical assessment, review of chart, medical history imaging, and determining appropriate treatment and workup. 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 She was seen at [place] ED for the first fall and had a negative CT scan of the brain and had jonathan placed. She was seen at [place] for the second fall and her again had negative CT scans, but with additional complaints of increased fatigue and trouble focusing who now re-presents to [facility] ER with altered mental status. Per chart review and family, patient has been wanting to sleep all the time and when she is awake her family has to work to get her attention and repeat things often, poor oral intake with one episode of bilious emesis last night - which they stated is not unusual for her to have nausea and vomiting as she is chronically on multiple prn antiemetics (ondansetron and prochlorperazine). She is supposed to ambulate with a walker - but has not been routinely using one. Earlier yesterday, multiple family members had to lift her up into a wheelchair to bring her in for evaluation by her PCP who noted her poor condition and had her sent to the ER for further evaluation and treatment. In the ER, UA consistent with UTI MORE Cr 1.34 (up from her previous baseline of 0.92 mg/dL) TSH, B12 and Folate levels are normal CTH with generalized volume loss but no acute findings Per at bedside, she is doing better today she is eating drinking, he said last night she couldn?t swallow well so they held the gabapentin, and this morning when they gave it to her she was out of it for a while sleeping. At baseline, she has some confusion, ask what day it is, she is supposed to use a walker at home. Shuffles when walking Physical Examination: Exam performed with help of the nurse/YONY present with patient on Tele site NEURO: Alert, oriented to self, at bedside, place, doesn?t know the year which is not unusual for her Follows simple commands EOMI, no gaze preference Face symmetric, Intact facial sensation. Tongue midline. Head turning intact. Head tremor Masked facies UE positional tremor Finger tapping bilaterally with bradykinesia bilaterally All extremities antigravity [facility] Medical History HTN (hypertension) Heart disease Diabetes DJD (degenerative joint disease) GERD (gastroesophageal reflux disease) Powers's esophagus Dyslipidemia Morbid obesity Home Medications ?Medication ?Instructions ?Recorded ?Last Taken ?Type bupropion HCl 200 mg tablet,12 hr 200 mg PO BID depression/anxiety 08/23/15 08/28/24 History sustained-release (Wellbutrin SR) gabapentin 600 mg tablet 600 mg PO TIDCM nerve pain 08/23/15 08/28/24 History pantoprazole 40 mg tablet,delayed 40 mg PO BID acid reflux 08/23/15 08/28/24 History release thyroid (pork) 60 mg tablet 60 mg PO BID thyroid 08/23/15 08/28/24 History (Nancy Thyroid) nitroglycerin 0.4 mg sublingual 0.4 mg sublingual Q5M PRN Chest 01/01/17 10/31/17 Rx tablet Pain #30 tabs lisinopril 5 mg tablet 5 mg PO DAILY 10/31/17 08/28/24 History tizanidine 4 mg capsule (Zanaflex) 4 mg PO Q8H PRN Muscle Spasm 10/31/17 Unknown History carbidopa 25 mg-levodopa 100 mg 1 tab PO TID 08/29/24 08/28/24 History tablet cetirizine 10 mg tablet 10 mg PO DAILY 08/29/24 08/28/24 History clonazepam 1 mg tablet 1 mg PO BID PRN anxiety 08/29/24 08/28/24 History fenofibrate 54 mg tablet 54 mg PO DAILY 08/29/24 08/28/24 History ferrous sulfate 325 mg (65 mg 325 mg PO BID 08/29/24 08/28/24 History iron) tablet (FeroSul) gabapentin 300 mg capsule 300 mg PO TID 08/29/24 08/28/24 History lamotrigine 200 mg disintegrating 400 mg PO QHS . 08/29/24 08/28/24 History tablet metformin 500 mg tablet,extended 1,500 mg PO DAILY 08/29/24 08/28/24 History release 24 hr metoprolol succinate 25 mg 25 mg PO DAILY 08/29/24 08/28/24 History tablet,extended release 24 hr ondansetron HCl 4 mg tablet 4 mg PO DAILY PRN nausea and 08/29/24 Unknown History vomiting prochlorperazine maleate 10 mg 10 mg PO BID PRN PRN migraine 08/29/24 Unknown History tablet rosuvastatin 5 mg tablet 5 mg PO QHS 08/29/24 08/28/24 History semaglutide 0.25 mg or 0.5 mg (2 0.5 mg subcut QWEEK 08/29/24 08/28/24 History mg/3 mL) subcutaneous pen injector (Ozempic) topiramate 50 mg tablet 50 mg PO BID 08/29/24 08/28/24 History vortioxetine 20 mg tablet 20 mg PO DAILY 08/29/24 08/28/24 History (Trintellix) Allergy/AdvReac Type Severity Reaction Status Date / Time animal dander Allergy difficulty Verified 09/09/24 15:58 breathing citric acid AdvReac mouth sores Verified 09/09/24 15:58 mold AdvReac Nausea Verified 09/09/24 15:58 zolpidem (From Ambien) AdvReac SLEEP Verified 09/09/24 15:58 WALKING Social History Smoking Status: Former smoker Vital Signs Vital Signs Vital Signs: 09/09/24 15:54 09/09/24 16:53 09/09/24 17:00 Temperature 97 F L Temperature Source Temporal Pulse Rate 75 70 72 Respiratory Rate 16 16 15 Respiratory Effort Respiratory Depth Respiratory Pattern Blood Pressure 98/66 124/74 H 130/71 H Blood Pressure Mean 76 90 90 Pulse Ox 95 100 97 Oxygen Delivery Method Room Air Room Air 09/09/24 18:00 09/09/24 19:00 09/09/24 19:20 Temperature 98 F Temperature Source Pulse Rate 64 66 66 Respiratory Rate 13 14 14 Respiratory Effort Respiratory Depth Respiratory Pattern Blood Pressure 133/63 H 134/71 H 134/71 H Blood Pressure Mean 86 92 92 Pulse Ox 94 99 97 Oxygen Delivery Method Room Air Room Air 09/09/24 19:21 09/09/24 20:00 09/09/24 20:21 Temperature 98.1 F 98.1 F Temperature Source Axillary Axillary Pulse Rate 67 68 70 Respiratory Rate 14 16 16 Respiratory Effort Respiratory Depth Respiratory Pattern Blood Pressure 134/71 H 112/98 H 112/98 H Blood Pressure Mean 92 102 102 Pulse Ox 97 98 97 Oxygen Delivery Method Room Air Room Air Room Air 09/09/24 21:17 09/09/24 22:24 09/10/24 01:41 Temperature 98.3 F Temperature Source Oral Pulse Rate 66 70 Respiratory Rate 16 Respiratory Effort Respiratory Depth Respiratory Pattern Blood Pressure 140/78 H Blood Pressure Mean 98 Pulse Ox 99 93 Oxygen Delivery Method Room Air Room Air 09/10/24 02:50 09/10/24 02:51 09/10/24 08:19 Temperature 98.5 F 97.9 F Temperature Source Axillary Oral Pulse Rate 72 69 Respiratory Rate 18 16 Respiratory Effort Normal Non-Labored Respiratory Depth Normal Respiratory Pattern Normal Blood Pressure 145/71 H 132/67 H Blood Pressure Mean 95 88 Pulse Ox 96 94 Oxygen Delivery Method Room Air Room Air Room Air 09/10/24 08:44 09/10/24 10:58 09/10/24 11:47 Temperature 98.7 F Temperature Source Temporal Pulse Rate 72 Respiratory Rate 16 Respiratory Effort Normal Non-Labored Respiratory Depth Normal Respiratory Pattern Normal Blood Pressure 142/78 H Blood Pressure Mean 99 Pulse Ox 95 94 Oxygen Delivery Method Room Air Room Air Room Air Weight Weight: 72.8 kg Body Mass Index (BMI) 24.3 EEG Results Procedure Details EEG Procedure Details: ANALI AGARWAL is a 59 year old F with a past medical history of , who presents for evaluation of Electroencephalogram on DATE at TIME Lab / Micro Data 09/10/24 06:05 09/10/24 06:05 Labs: Laboratory Results - last 24 hr 09/09/24 16:30: WBC 8.2, RBC 3.90 L, Hgb 11.5 L, Hct 33.9 L, MCV 86.9, MCH 29.5, MCHC 33.9, RDW Std Deviation 39.9, RDW Coeff of Yuliana 12.7, Plt Count 235, MPV 10.4, Immature Gran % (Auto) 0.400, Neut % (Auto) 74.3 H, Lymph % (Auto) 21.0, [place] % (Auto) 4.1, Eos % (Auto) 0.0, Baso % (Auto) 0.2, Absolute Neuts (auto) 6.1, Absolute Lymphs (auto) 1.72, Nucleated RBC % 0, Sodium 138, Potassium 4.0, Chloride 104, Carbon Dioxide 20.6 L, Anion Gap 14, BUN 21 H, Creatinine 1.34 H, Est GFR (MDRD) Non-Af 45 L, BUN/Creatinine Ratio 15.5, Glucose 127 H, Lactic Acid 1.2, Calcium 9.4, Magnesium 1.5, Vitamin B12 790, TSH 1.980 09/09/24 16:53: Urine Color Straw, Urine Clarity Cloudy, Urine pH 5.0, Ur Specific [place] 1.020, Urine Protein 30 H, Urine Glucose (UA) Normal, Urine Ketones Negative, Urine Occult Blood Negative, Urine Nitrite Negative, Urine Bilirubin Negative, Urine Urobilinogen Normal, Ur Leukocyte Esterase 100 H, Urine RBC 0-5 SEEN, Urine WBC 10-25 SEEN, Ur Squamous Epith Cells 5-10 SEEN, Urine Bacteria 4+, Urine Mucus 0 SEEN 09/09/24 21:43: Hemoglobin A1c 4.8, Serum Folate 6.24, Ethyl Alcohol < 10.1 09/09/24 22:19: POC Glucose 99 09/09/24 22:40: Urine Opiates Screen NEGATIVE, U Buprenorphine Qual NEGATIVE, Ur Oxycodone Screen NEGATIVE, Urine Methadone Screen PRESUMPTIVE POSITIVE, Urine Fentanyl Screen NEGATIVE, Ur Barbiturates Screen NEGATIVE, Ur Phencyclidine Scrn NEGATIVE, Ur Amphetamines Screen NEGATIVE, U Benzodiazepines Scrn PRESUMPTIVE POSITIVE, Urine Cocaine Screen NEGATIVE, U Cannabinoids Screen NEGATIVE 09/10/24 06:05: WBC 5.6, RBC 3.20 L, Hgb 9.6 L, Hct 28.1 L, MCV 87.8, MCH 30.0, MCHC 34.2, RDW Std Deviation 40.6, RDW Coeff of Yuliana 12.7, Plt Count 191, MPV 10.4, Immature Gran % (Auto) 0.400, Neut % (Auto) 54.3, Lymph % (Auto) 39.9, Aurora % (Auto) 4.6, Eos % (Auto) 0.4, Baso % (Auto) 0.4, Absolute Neuts (auto) 3.1, Absolute Lymphs (auto) 2.24, Nucleated RBC % 0, Sodium 140, Potassium 3.4, Chloride 108, Carbon Dioxide 20.7 L, Anion Gap 12, BUN 17, Creatinine 1.22 H, Estim Creat Clear Calc 48.85 L, Est GFR (MDRD) Non-Af 50 L, BUN/Creatinine Ratio 13.9, Glucose 98, Calcium 8.7, Phosphorus 2.8, Total Bilirubin 0.35, AST 15, ALT 5, Alkaline Phosphatase 31 L, Total Protein 5.6 L, Albumin 3.3 L, Globulin 2.3, Albumin/Globulin Ratio 1.5, Triglycerides 183, Cholesterol 138, LDL Cholesterol, Calc 44, VLDL Cholesterol 37, HDL Cholesterol 57, Cholesterol/HDL Ratio 2.42 09/10/24 06:16: POC Glucose 89 Imaging Radiology Impression Brain CT 09/09/24 16:44 IMPRESSION: 1. Small vessel ischemic/degenerative changes. 2. Generalized brain atrophy. 3. No acute intracranial hemorrhage, midline shift or mass effect. If symptoms persist, further evaluation with MRI is recommended. Reading Location: [facility] Chest X-Ray 09/09/24 17:06 IMPRESSION: Pulmonary venous congestion. Reading Location: [facility] ER Active Medications Active Medications Active Medications: Current Medications Generic Name Dose Route Start Last Admin Trade Name Freq PRN Reason Stop Dose Admin Acetaminophen 650 mg 09/09/24 21:07 Acetaminophen 325 Mg Tablet PO Q6H PRN PRN Pain 1-10 Or Fever>100.7 Al Hydroxide/Mg Hydroxide 30 ml 09/09/24 21:07 Mag Hydrox/Al Hydrox/Simeth 30 Ml Udc PO Q6H PRN PRN Gastric Burning Bupropion HCl 200 mg 09/09/24 22:00 09/09/24 22:42 Bupropion (Sr) 100 Mg Tablet.Sa PO 200 mg BID VIVIANA Administration Carbidopa/Levodopa 1 tablet 09/10/24 07:00 09/10/24 06:17 Carbidopa/Levodopa 25/100 Tablet PO 1 tablet TIDAC VIVIANA Administration Clarify Med Order 0 each 09/09/24 22:15 09/09/24 22:34 Clarify Order NOTE Not Given CLARIFY VIVIANA Enoxaparin Sodium 40 mg 09/10/24 10:00 Enoxaparin 40 Mg/0.4 Ml Syringe SC DAILY VIVIANA Fenofibrate 48 mg 09/10/24 10:00 Fenofibrate 48 Mg Tablet PO DAILY VIVIANA Ferrous Sulfate 325 mg 09/10/24 12:00 Ferrous Sulfate 325 Mg Tablet PO 1200,1700 VIVIANA Gabapentin 900 mg 09/09/24 22:00 09/10/24 06:17 Gabapentin 300 Mg Capsule PO 900 mg TID VIVIANA Administration Glucagon 1 mg 09/09/24 21:07 Glucagon 1 Mg/Ml Syringe IM X1 PRN HYPOGLYCEMIA Protocol Sodium Chloride 1,000 mls @ 100 mls/hr 09/09/24 20:38 09/10/24 08:22 IV 09/10/24 16:37 100 mls/hr .Q10H VIVIANA Administration Ceftriaxone Sodium 1 gm in 50 mls @ 100 mls/hr 09/10/24 22:00 Rocephin IV 2200 VIVIANA Dextrose 250 mls @ 0 mls/hr 09/09/24 21:07 Dextrose 10%-Water IV .Q0M PRN HYPOGLYCEMIA Protocol As Directed Sodium Chloride 250 mls @ 15 mls/hr 09/09/24 21:13 IV .[id number] PRN Saline Flush Sodium Chloride 250 mls @ 15 mls/hr 09/09/24 21:13 IV .[id number] PRN Additional IVPB Infusion Insulin Human Lispro 0 unit 09/09/24 22:00 09/10/24 06:16 Insulin Lispro 100 Unit/Ml Insuln.Pen SC Not Given ACHS [facility] Protocol Lamotrigine 400 mg 09/09/24 22:00 09/09/24 22:42 Lamotrigine 100 Mg Tablet PO 400 mg QHS VIVIANA Administration Loratadine 10 mg 09/10/24 10:00 Loratadine 10 Mg Tablet PO DAILY VIVIANA Magnesium Hydroxide 30 ml 09/09/24 21:07 Magnesium Hydroxide 30 Ml Udc PO DAILY PRN PRN Constipation Metoprolol Succinate 25 mg 09/10/24 10:00 Metoprolol(Xl)Succ 25 Mg Tablet PO DAILY [facility] Protocol Nitroglycerin 0.4 mg 09/09/24 21:07 Nitroglycerin (Inpatient Use) 0.4 Mg Tab.Subl SL Q5M PRN Chest Pain Ondansetron HCl 4 mg 09/09/24 21:07 Ondansetron Odt 4 Mg Tablet PO Q6H PRN PRN nausea and vomiting Pantoprazole Sodium 40 mg 09/09/24 22:00 09/09/24 22:42 Pantoprazole Sodium 40 Mg Tablet PO 40 mg BID VIVIANA Administration Prochlorperazine Maleate 10 mg 09/09/24 21:07 Prochlorperazine 5 Mg Tablet PO BID PRN PRN migraine Sodium Chloride 10 - 40 ml 09/09/24 21:13 0.9% Saline Lock 10 Ml Syringe IV UD PRN SALINE FLUSH Thyroid 60 mg 09/09/24 22:00 09/09/24 22:43 Thyroid 60 Mg Tablet PO 60 mg BID VIVIANA Administration Tizanidine HCl 4 mg 09/09/24 21:07 Tizanidine Hcl 2 Mg Tablet PO PRN PRN Muscle Spasm Topiramate 50 mg 09/09/24 22:00 09/09/24 22:42 Topiramate 50 Mg Tablet PO 50 mg BID VIVIANA Administration
[2024-09-10] MEDS: VORTIOXETINE HYDROBROMIDE 20 MG TABLET PO (12:14)
[2024-09-10] MEDS: buPROPion (SR) 100 MG TABLET.SA 200 MG PO (12:14)
[2024-09-10] MEDS: Ferrous Sulfate 325 MG Tablet PO (12:15)
[2024-09-10] MEDS: Lactobacillis Acidophilus 1 CAP PO (13:09)
[2024-09-10] MEDS: clonazePAM 1 MG Tablet PO (16:22)
[2024-09-10 18:49] LABS: Bedside Glucose 95 mg/dL (74-106)
[2024-09-10 19:41] LABS: Bedside Glucose 98 mg/dL (74-106)
[2024-09-10] MEDS: 0.9% Saline Lock 10 ML Syringe IV (20:45)
[2024-09-10] MEDS: KCL 20MEQ in 0.45%NS 20 MEQ/1,000 ML IV.SOLN. 150 MEQ IV (20:49)
[2024-09-10] MEDS: Pantoprazole Sodium 40 MG in 0.9% Normal Saline (100mL MB+) 100 ML 300 MG IV (22:56)
[2024-09-10 23:15] LABS: Bedside Glucose 79 mg/dL (74-106)
[2024-09-10] MEDS: Ceftriaxone 1 GM/50 ML BAG IV (23:29)
[2024-09-11] VITALS (8 sets, daily range): BP systolic 139–153; BP diastolic 78–86; PULSE 64–70; RESP 16–18; TEMP 36.5–37.2; O2SAT 93–99; BMI 24.3
[2024-09-11] MEDS: KCL 20MEQ in 0.45%NS 20 MEQ/1,000 ML IV.SOLN. 150 MEQ IV (03:36)
[2024-09-11 05:19] LABS: Phosphorus 2.3 mg/dL (2.7-4.5)
[2024-09-11 06:53] LABS: Bedside Glucose 77 mg/dL (74-106)
[2024-09-11 08:33] LABS: Anion Gap 12 (5-15); BUN 10 mg/dL (4-19); BUN/Creat Ratio 9.3 RATIO (10-20); Calcium,Total 8.6 mg/dL (7.6-11.0); Carbon Dioxide 18.4 mmol/L (21.0-32.0); Chloride 110 mmol/L (98-108); Creatinine, Serum 1.04 mg/dL (0.70-1.20); EST Glomerular Filtration Rate 61 (>60); Glucose 83 mg/dL (70-99); Potassium 3.3 mmol/L (3.3-5.1); Sodium Level 140 mmol/L (133-145)
[2024-09-11] MEDS: Na Biphos/Potassium Phosphate PACKET 1 PACKET PO ×3 (11:03→23:41)
[2024-09-11] MEDS: Lactobacillis Acidophilus 1 CAP PO ×3 (11:04→23:40)
[2024-09-11] MEDS: Metoprolol(XL)Succ 25 MG Tablet PO (11:04)
[2024-09-11] MEDS: Thyroid 60 MG Tablet PO ×2 (11:04→23:40)
[2024-09-11] MEDS: Topiramate 50 MG Tablet PO ×2 (11:05→23:40)
[2024-09-11] MEDS: Pantoprazole Sodium 40 MG Tablet PO ×2 (11:05→23:40)
[2024-09-11] MEDS: buPROPion (SR) 100 MG TABLET.SA PO ×2 (11:06→23:40)
[2024-09-11] MEDS: Carbidopa/Levodopa 25/100 Tablet PO ×2 (11:07→16:34)
[2024-09-11] MEDS: VORTIOXETINE HYDROBROMIDE 10 MG TABLET PO (11:08)
[2024-09-11] MEDS: Ferrous Sulfate 325 MG Tablet PO (11:08)
[2024-09-11] MEDS: Ondansetron ODT 4 MG Tablet PO (11:55)
[2024-09-11 12:20] LABS: Bedside Glucose 119 mg/dL (74-106)
--- NOTE | 2024-09-11 14:57 | PN.HOSP_ITS ---
Reason for Visit Reason for Visit: Diagnoses Other specified anxiety disorders (09/09/24) Parkinsonism, unspecified (09/09/24) Acute kidney failure, unspecified (09/09/24) Acute cystitis without hematuria (09/09/24) Difficulty in walking, not elsewhere classified (09/09/24) Repeated falls (09/09/24) Transient alteration of awareness (09/09/24) Altered mental status, unspecified (09/09/24) Weakness (09/09/24) Other long term care administrator (current) drug therapy (09/09/24) Objective Data Objective Data Vital Signs: Vital Signs Temp Pulse Resp BP Pulse Ox O2 Del Method 99 F 65 18 145/85 H 95 Room Air 09/11/24 08:06 09/11/24 11:04 09/11/24 08:06 09/11/24 08:06 09/11/24 08:06 09/11/24 10:00 Oxygen Delivery Method Room Air Weight: 160 lb 0.889 oz Body Mass Index (BMI) 24.3 Intake & Output: Intake and Output for Last 24 Hours 09/09/24 09/10/24 09/11/24 23:59 23:59 23:59 Intake Total 1050 / 1050 2340 / 2340 2050 / 2050 Output Total 850 / 850 800 / 800 Balance 1050 / 1050 1490 / 1490 1250 / 1250 Medical Nutrition Assessment Dietitian: Malnutrition Criteria Met Start: 09/10/24 11:47 Freq: Status: Active Protocol: Document 09/10/24 13:07 SB (Rec: 09/10/24 13:07 SB [id number]) Nutrition Malnutrition Evidence of Yes Malnutrition Exists Malnutrition (severe Chronic ): Evidenced By Suboptimal Energy Intake (Moderate),Weight Loss (Severe ) Clinical Problem Chronic Disease or Condition Related Malnutrition Etiology severe related to inadequate oral intake secondary to use of semaglutides Signs/Symptoms as evidenced by PO meeting <75% of estimated nutrition needs x 1.5 weeks and 38% weight loss x 6-8 months. Status Active Problem Recommendation Dietitian Adjust to liberal regular diet due to signs and Recommendations/ symptoms of malnutrition. Changes Will order 120ml chocolate glucerna shake TID with meals. Will monitor weight trends. Lab / Micro Data 09/10/24 06:05 09/11/24 04:23 Labs: Laboratory Results - last 24 hr 09/10/24 12:23: POC Glucose 98 09/10/24 16:21: POC Glucose 95 09/10/24 22:45: POC Glucose 79 09/11/24 04:23: Sodium 140, Potassium 3.3, Chloride 110 H, Carbon Dioxide 18.4 L , Anion Gap 12, BUN 10, Creatinine 1.04, Estim Creat Clear Calc 57.30, Est GFR (MDRD) Non-Af 61, BUN/Creatinine Ratio 9.3 L, Glucose 83, Calcium 8.6, P hosphorus 2.3 L 09/11/24 06:20: POC Glucose 77 09/11/24 11:56: POC Glucose 119 H Micro: Microbiology 09/09/24 16:50 Urine, Midstream Urine Culture - Final Escherichia coli Physical Exam Narrative Seen and examined. Discussed with the patient's at the bedside. Patient is more awake compared to yesterday. She is responding adequately. Patient had 2 falls this month and had a head laceration at the first fall, shot passing out and had jonathan on 08/29 in ED. She is not having adequate oral intake and dehydrated. Denies burning micturition or acute lower intact symptoms. She also had altered mental status. She is talking faster than yesterday Physical exam General: Awake, Oriented x3, Cooperative HEENT: Atraumatic, PERRLA, EOMI, Normocephalic. Oral: No Gingival or Mucosal Lesions/ Ulcerations Neck: Supple, No JVD, Negative Carotid Bruits Chest wall/Lungs: Air entry diminished in bilateral lung bases. No crepitation/rhonchi Cardiovascular: Regular rate and rhythm, Normal S1,S2, No M/G/R Abdomen: Bowel Sounds Present, Soft, Non Tender, Non-Distended : No dysuria. No renal angle tenderness. No suprapubic tenderness. Extremities: No edema, Capillary Refill Less than 3 Seconds Skin: No rashes, No breakdown Musculoskeletal: No Tenderness to Palpation of Joints or Extremities. Muscle strength 5/5 at knee and hip joints. Mild disequilibrium Neurological: Cranial nerves II-XII grossly intact, DTR 2+/4. No acute focal neurological deficit. Psych/Mental Status: Flat affect, responding good. Assessment & Plan Assessment/Plan (1) Acute cystitis without hematuria: (2) MORE (acute kidney injury): (3) Altered mental status: QUALIFIERS: Altered mental status type: transient alteration of awareness Qualified Code(s): R40.4 - Transient alteration of awareness (4) Recurrent falls: (5) Generalized weakness: (6) Ambulatory dysfunction: (7) Parkinsonian tremor: (8) Depression with anxiety: (9) Polypharmacy: PLAN: Plan 58-year-old female was sent from PCP office for altered mental status. She had 2 recent fall with head injury on on both occasions. After first fall she was stapled for any injury. 08/29 and 09/02. She had negative CT scan 1. E. coli UTI: Clinically patient does not have acute urinary tract symptoms. UA positive of LE 100, WBC 10-25 cells, squamous epithelial 5-10 so therefore not a good sample. Urine culture pending. Empirically on IV ceftriaxone. 09/11: Urine culture shows E. coli more than 8000 colonies. Continue IV ceftriaxone. 2. MORE; with elevated serum creatinine of 1.34 mg/dL present on admission (up from her previous baseline of 0.92 mg/dL): Repeat BUN/creatinine 08/04., improving. Continue IV fluid. 09/11: Creatinine improved to 1.04. MORE resolved. Discontinue IV fluid. Acute encephalopathy possible metabolic, history of cognitive impairment, unclear about dementia, anxiety and depression: Encephalopathy has improved. PT/OT and Case Management. Given the order to remove the staple on the head. Had [address] head. Possible postconcussion. Polypharmacy is patient on bupropion vortioxetine, clonazepam twice daily Lamictal, gabapentin and Topamax. Discussed with the neurologist and pharmacist. Bupropion and vortioxetine dose decreased to 100 mg twice daily and 10 mg daily respectively. Gabapentin dose decreased to 600 mg 3 times daily. Clonazepam 1 mg twice daily as needed. Continue Topamax. She is not taking tizanidine therefore discontinue. Discontinue Claritin. B12 normal. TSH normal. Magnesium 1.5, replacing 09/11: Mild hypophosphatemia on Neutra-Phos. Repeat magnesium ordered. Parkinsonian tremor , unclear etiology, on carbidopa-levodopa TID . Medications reviewed. She is not on antipsychotic medications. 09/11: Patient has been sent she is on Sinemet because of tremors which Dr. Duff essential tremor. Follow-up with the neurologist as an outpatient. Neurologist follow-up while inpatient. DM-2; of unknown control on metformin plus diabetic neuropathy; on gabapentin TID - ADA diet. A1c 4.8. Essential hypertension; on lisinopril and metoprolol -on metoprolol. Hold lisinopril Hyperlipidemia; on rosuvastatin - Hold statin in case of myotoxicity contributing to #4. check Lipid Profile and consider alternative agent. Hypothyroidism; on [place] thyroid - Maintain thyroid hormone replacement and check TSH. Former obesity; on semaglutide -she lost the weight and currently on goal 24.4 kg/m?. Restart this agent as outpatient. Migraine headaches; on topiramate and prn prochlorperazine BID - Continue present therapy. 14. Chronic NESTOR; on ferrous sulfate - Stable with hemoglobin of 11.5 g/dL and MCV of 86.9 fL present on admission. 15. KRZYSZTOF - Continue nocturnal CPAP. 16. GERD; with history of Powers's esophagus on pantoprazole daily - Maintain PPI. 17. OA - Stable. 18. DVT prophylaxis - Enoxaparin 40 mg sq daily plus SCD's Total time of the visit including total time spent in counseling or coordination of care, (more than 50% of the total time, spent in obtaining medical information from nurses and other ancillary care providers ,explaining to the patient about labs, imaging, diagnosis and management of active complex medical conditions), discussion with the neurologist, pharmacist and clinical update given to , review of labs and imaging is 35 minutes. Charges/Coding Visit Charges Inpatient E&M: [id number] Subs Hosp L2
[2024-09-11] MEDS: Enoxaparin 40 MG/0.4 ML Syringe SC (15:09)
[2024-09-11] MEDS: Fenofibrate 48 MG Tablet PO (15:11)
[2024-09-11] MEDS: Gabapentin 600 MG Tablet PO ×2 (15:14→23:41)
[2024-09-11 16:41] LABS: Magnesium 1.5 mg/dL (1.5-2.2)
[2024-09-11 16:44] LABS: Bedside Glucose 90 mg/dL (74-106)
[2024-09-11] MEDS: Magnesium Sulfate 4gm/100mL 4 GM/100 ML IV.SOLN. IV (20:36)
[2024-09-11] MEDS: 0.9% Saline Lock 10 ML Syringe IV (20:36)
[2024-09-11] MEDS: Ceftriaxone 1 GM/50 ML BAG IV (23:38)
[2024-09-11] MEDS: lamoTRIgine 100 MG Tablet 400 MG PO (23:40)
[2024-09-12] VITALS: BP 148/86; PULSE 66; RESP 15; TEMP 36.9; O2SAT 97
[2024-09-12 00:16] LABS: Bedside Glucose 98 mg/dL (74-106)
[2024-09-12 03:17] VITALS: BMI 24.1
[2024-09-12 06:15] VITALS: BP 151/87; PULSE 64; RESP 14; TEMP 36.7; O2SAT 96
[2024-09-12] MEDS: Gabapentin 600 MG Tablet PO ×2 (06:23→13:54)
[2024-09-12] MEDS: Carbidopa/Levodopa 25/100 Tablet PO ×2 (06:23→11:38)
[2024-09-12] MEDS: Na Biphos/Potassium Phosphate PACKET 1 PACKET PO ×2 (06:23→13:54)
[2024-09-12 06:26] LABS: Hematocrit 29.2 % (37-47); Hemoglobin 9.8 g/dL (12.0-15.0); Mean Corp Hgb Conc 33.6 g/dL (32-36); Mean Corpuscular Hgb 29.6 pg (27.0-32.0); Mean Corpuscular Volume 88.2 fL (81-99); Mean Platelet Vol. 10.1 fl (6.2-12.0); Platelet Count 201 K/mm3 (150-450); RBC Distribution Width CV 12.8 % (11.6-14.6); RBC Distribution Width SD 41.7 fl (35.1-43.9); Red Blood Count 3.31 M/mm3 (4.2-5.4); White Blood Count 4.1 K/mm3 (4.4-11.0)
[2024-09-12 06:50] LABS: Bedside Glucose 91 mg/dL (74-106)
[2024-09-12 06:54] LABS: Albumin, Serum 3.2 g/dL (3.4-4.8); Anion Gap 10 (5-15); BUN 6 mg/dL (4-19); BUN/Creat Ratio 6.3 RATIO (10-20); Calcium,Total 8.8 mg/dL (7.6-11.0); Carbon Dioxide 21.1 mmol/L (21.0-32.0); Chloride 111 mmol/L (98-108); Creatinine, Serum 0.97 mg/dL (0.70-1.20); EST Glomerular Filtration Rate 66 (>60); Estimated Creatinine Clearance 61.44 ml/min (50-250); Glucose 87 mg/dL (70-99); Magnesium 2.6 mg/dL (1.5-2.2); Phosphorus 3.2 mg/dL (2.7-4.5); Potassium 3.5 mmol/L (3.3-5.1); Sodium Level 142 mmol/L (133-145)
[2024-09-12 09:19] VITALS: BP 157/82; PULSE 74; RESP 18; TEMP 36.7; O2SAT 94
[2024-09-12] MEDS: Ondansetron ODT 4 MG Tablet PO (09:23)
[2024-09-12] MEDS: Thyroid 60 MG Tablet PO (09:23)
[2024-09-12] MEDS: Fenofibrate 48 MG Tablet PO (09:23)
[2024-09-12] MEDS: buPROPion (SR) 100 MG TABLET.SA PO (09:23)
[2024-09-12] MEDS: Topiramate 50 MG Tablet PO (09:24)
[2024-09-12 09:25] VITALS: BP 157/82; PULSE 74
[2024-09-12] MEDS: Metoprolol(XL)Succ 25 MG Tablet PO (09:25)
[2024-09-12] MEDS: Lactobacillis Acidophilus 1 CAP PO ×2 (09:25→13:54)
[2024-09-12] MEDS: Pantoprazole Sodium 40 MG Tablet PO (09:26)
[2024-09-12] MEDS: VORTIOXETINE HYDROBROMIDE 10 MG TABLET PO (09:27)
[2024-09-12] MEDS: Enoxaparin 40 MG/0.4 ML Syringe SC (09:36)
[2024-09-12] MEDS: Ferrous Sulfate 325 MG Tablet PO (11:38)
[2024-09-12 11:58] LABS: Bedside Glucose 130 mg/dL (74-106)
--- NOTE | 2024-09-12 12:28 | DCINST_ITS ---
Discharge Instructions Follow Up Care Test Results: Test results from this visit will be discussed in further detail at your follow- up appointment, if applicable. Discharge Plan Admission Admit Date/Time: 09/09/24 20:31 Attending Provider: Julio Olea Primary Care Provider: Santhosh Garcia Consulting Providers: Miguel Ángel Lake; Chrystal Martel; Hortencia Pan; Stephanie Castillo; Dorys Saldivar; Evan Villagomez; Ronda Casillas; Jaya Soto; Chi Segundo; Avila Oakley; Lisa Nelson; Isael Almodovar; Sonia Mayberry; Toya Trujillo; Kirby Staley; Flaco Brink; Paresh Mathur; Damon Urena; Nicolasa Long; Nagi Argueta; Iftikhar Macias; Mauro Up Discharge Orders/Prescriptions Prescriptions: No Action gabapentin 600 MG tablet 600 mg PO TIDCM Rx Instructions: with 300mg for total daily dose of 900mg pantoprazole 40 MG tablet 40 mg PO BID bupropion HCl [Wellbutrin SR] 200 MG tablet 200 mg PO BID thyroid (pork) [[place] Thyroid] 60 MG tablet 60 mg PO BID nitroglycerin 0.4 MG tablet 0.4 mg sublingual Q5M PRN (Reason: Chest Pain) Qty: 30 0RF lisinopril 5 MG tablet 5 mg PO DAILY Patient Comments: tizanidine [Zanaflex] 4 MG capsule 4 mg PO Q8H PRN (Reason: Muscle Spasm) cetirizine 10 mg tablet 10 mg PO DAILY clonazepam 1 mg tablet 1 mg PO BID PRN (Reason: anxiety) carbidopa-levodopa 25-100 mg tablet 1 tab PO TID ferrous sulfate [FeroSul] 325 mg (65 mg iron) tablet 325 mg PO BID gabapentin 300 mg capsule 300 mg PO TID Rx Instructions: with 600mg for total daily dose of 900mg metoprolol succinate 25 mg tablet extended release 24 hr 25 mg PO DAILY metformin 500 mg tablet extended release 24 hr 1,500 mg PO DAILY rosuvastatin 5 mg tablet 5 mg PO QHS topiramate 50 mg tablet 50 mg PO BID fenofibrate 54 mg tablet 54 mg PO DAILY lamotrigine 200 mg tablet,disintegrating 400 mg PO QHS Trintellix 20 mg tablet 20 mg PO DAILY Ozempic 0.25 mg or 0.5 mg (2 mg/3 mL) pen injector 0.5 mg subcut QWEEK ondansetron HCl 4 mg tablet 4 mg PO DAILY PRN (Reason: nausea and vomiting) prochlorperazine maleate 10 mg tablet 10 mg PO BID PRN PRN (Reason: migraine) Referrals / Follow Up: Santhosh Garcia MD [Primary Care Provider] -
--- NOTE | 2024-09-12 12:28 | PCM.DC.SUM ---
Providers Date of Admission: 09/09/24 Date of Discharge: 09/12/24 Primary Care Physician: Dr. Santhosh Garcia MD Consultations 09/09/24 20:57 neuro [Consult: Tele-Neurology] Routine Consulting Provider: [facility] Reason for Consult: Acute Metabolic Encephalopathy with Chronic Polypharmacy and Parkinsonian. EMERGENT Consult: No MD Notified: Yes Date Notified: 09/09/24 Time Notified: 22:15 Method of Notification: Answering Service Method of Consult:: Telemedicine Nursing Unit Staff Notify [facility] of Tele-Neurology Consult: Yes Reason For Visit: UTI, MORE, ACUTE METABOLIC ENCEPHALOAPTHY Diagnosis Discharge Diagnosis (1) Acute cystitis without hematuria: Status: Acute Code(s): N30.00 - Acute cystitis without hematuria (2) MORE (acute kidney injury): Status: Acute Code(s): N17.9 - Acute kidney failure, unspecified (3) Altered mental status: Status: Acute Code(s): R41.82 - Altered mental status, unspecified Qualifiers: Altered mental status type: transient alteration of awareness Qualified Code(s): R40.4 - Transient alteration of awareness (4) Recurrent falls: Status: Acute Code(s): R29.6 - Repeated falls (5) Generalized weakness: Status: Acute Code(s): R53.1 - Weakness (6) Ambulatory dysfunction: Status: Acute Code(s): R26.2 - Difficulty in walking, not elsewhere classified (7) Parkinsonian tremor: Status: Acute Code(s): G20.C - Parkinsonism, unspecified (8) Depression with anxiety: Status: Acute Code(s): F41.8 - Other specified anxiety disorders (9) Polypharmacy: Status: Acute Code(s): Z79.899 - Other halfway (current) drug therapy Medications at Discharge Home Medications pantoprazole 40 mg tablet,delayed release 40 mg PO BID acid reflux 08/23/15 thyroid (pork) 60 mg tablet ([place] Thyroid) 60 mg PO BID thyroid 08/23/15 nitroglycerin 0.4 mg sublingual tablet 0.4 mg sublingual Q5M PRN Chest Pain #30 tabs 01/01/17 lisinopril 5 mg tablet 5 mg PO DAILY blood pressure 10/31/17 tizanidine 4 mg capsule (Zanaflex) 4 mg PO Q8H PRN Muscle Spasm 10/31/17 carbidopa 25 mg-levodopa 100 mg tablet 1 tab PO TID parkinsons 08/29/24 cetirizine 10 mg tablet 10 mg PO DAILY allergies 08/29/24 clonazepam 1 mg tablet 1 mg PO BID PRN anxiety 08/29/24 fenofibrate 54 mg tablet 54 mg PO DAILY cholesterol 08/29/24 lamotrigine 200 mg disintegrating tablet 400 mg PO QHS seizures 08/29/24 metoprolol succinate 25 mg tablet,extended release 24 hr 25 mg PO DAILY blood pressure 08/29/24 ondansetron HCl 4 mg tablet 4 mg PO DAILY PRN nausea and vomiting 08/29/24 prochlorperazine maleate 10 mg tablet 10 mg PO BID PRN PRN migraine 08/29/24 rosuvastatin 5 mg tablet 5 mg PO QHS cholesterol 08/29/24 semaglutide 0.25 mg or 0.5 mg (2 mg/3 mL) subcutaneous pen injector (Ozempic) 0.5 mg subcut QWEEK diabetes 08/29/24 topiramate 50 mg tablet 50 mg PO BID seizures 08/29/24 vortioxetine 20 mg tablet (Trintellix) 20 mg PO DAILY mental health 08/29/24 bupropion HCl 100 mg tablet,12 hr sustained-release 100 mg PO BID 30 days #60 ea 09/12/24 ferrous sulfate 325 mg (65 mg iron) tablet (FeroSul) 325 mg PO DAILY 30 days #0 tabs 09/12/24 gabapentin 600 mg tablet 600 mg PO TIDCM nerve pain 30 days #0 tabs 09/12/24 nitrofurantoin monohydrate/macrocrystals 100 mg capsule (Macrobid) 100 mg PO BID 2 days #4 caps 09/12/24 Hospital Course Operations None Procedures - (Chest x-ray, CT brain) Summary of Care Provided Minutes Spent on Discharge: 35 Hospital Course: Patient is a 59-year-old female who presented to [facility] ED on 09/12/24 with altered mentation and recent falls. Hospital course as noted below. Patient discharged home in stable condition on 09/12. 1. Suspected acute metabolic encephalopathy with recent falls and acute on chronic debility in setting of Parkinson's disease with cognitive impairment and mood disorder ? Neurology followed. Suspected that altered mentation was likely secondary to postconcussive symptoms and toxic metabolic encephalopathy in setting of MORE, UTI, polypharmacy and baseline cognitive impairment. Improved back to baseline mental status during hospitalization. PT/OT/case management follow-up with inpatient was okay for discharge home with outpatient therapy. Okay to continue home bupropion and gabapentin at reduced doses. Continue home Ativan as needed, Lamictal, Topamax, and vortioxetine. Continue home Sinemet. 2. E. coli UTI ? UA infectious appearing on admit. Urine culture grew greater than 100,000 E. coli. Treated with IV ceftriaxone while inpatient and will discharge on Macrobid to complete 5-day course of antibiotics total. 3. MORE, resolved ? Creatinine 1.34 on admit, improved back to baseline around 0.9-1.0 with IV fluid resuscitation. 4. Chronic normocytic anemia ? Hemoglobin stable at baseline around 10 during hospitalization. Chronic medical conditions: ? Hypertension: Continue home Toprol and lisinopril. ? Hyperlipidemia: Continue home statin. ? Hypothyroidism: Continue home [place] Thyroid. ? GERD: Continue home PPI. Total clinical time spent by myself addressing the patient's medical issues, reviewing all the data, and collaborating with patient's care team: 35 minutes. Physical Exam Const alert, oriented x3, no apparent distress and average body habitus Constitutional Narrative: Upper middle-aged female, appears older than stated age, somewhat chronically ill-appearing, otherwise sitting back comfortably in bed, conversing normally, in no acute distress. General Appearance: cooperative and comfortable HEENT normocephalic, head/scalp atraumatic, hearing grossly normal bilaterally, nasal mucous membranes and turbinates normal and moist oral mucous membranes Eyes PERRL, EOMs intact bilaterally and conjunctivae normal Neck full ROM Chest inspection of chest normal Resp normal respiratory effort, normal air movement, no use of accessory muscles and clear to auscultation bilaterally Cardio regular rate, regular rhythm, no murmurs and peripheral pulses 2+ throughout GI normal to inspection, nondistended, normoactive bowel sounds, soft to palpation, non-tender and non-distended Back/Spine normal ROM Extremity normal to inspection, full ROM and no pedal edema Skin no rashes or lesions noted Psych mental status grossly normal Medical Records Data Medical Nutrition Assessment Dietitian: Malnutrition Criteria Met Start: 09/10/24 11:47 Freq: Status: Active Protocol: Document 09/10/24 13:07 SB (Rec: 09/10/24 13:07 SB [id number]) Nutrition Malnutrition Evidence of Yes Malnutrition Exists Malnutrition (severe Chronic ): Evidenced By Suboptimal Energy Intake (Moderate),Weight Loss (Severe ) Clinical Problem Chronic Disease or Condition Related Malnutrition Etiology severe related to inadequate oral intake secondary to use of semaglutides Signs/Symptoms as evidenced by PO meeting <75% of estimated nutrition needs x 1.5 weeks and 38% weight loss x 6-8 months. Status Active Problem Recommendation Dietitian Adjust to liberal regular diet due to signs and Recommendations/ symptoms of malnutrition. Changes Will order 120ml chocolate glucerna shake TID with meals. Will monitor weight trends. Weight / BMI Weight Weight: 72.1 kg Body Mass Index (BMI) 24.1 ABG / Lab / Microbiology Data 09/12/24 05:39 09/12/24 05:39 Laboratory: Laboratory Results - last 24 hr 09/11/24 04:23: Magnesium 1.5 09/11/24 16:26: POC Glucose 90 09/11/24 23:53: POC Glucose 98 09/12/24 05:39: WBC 4.1 L, RBC 3.31 L, Hgb 9.8 L, Hct 29.2 L, MCV 88.2, MCH 29.6, MCHC 33.6, RDW Std Deviation 41.7, RDW Coeff of Yuliana 12.8, Plt Count 201, MPV 10.1, Sodium 142, Potassium 3.5, Chloride 111 H, Carbon Dioxide 21.1, Anion Gap 10, BUN 6, Creatinine 0.97, Estim Creat Clear Calc 61.44, Est GFR (MDRD) Non-Af 66, BUN/Creatinine Ratio 6.3 L, Glucose 87, Calcium 8.8, Phosphorus 3.2, Magnesium 2.6 H, Albumin 3.2 L 09/12/24 06:21: POC Glucose 91 09/12/24 11:35: POC Glucose 130 H Microbiology: Microbiology 09/09/24 16:50 Urine, Midstream Urine Culture - Final Escherichia coli D/C Instructions DC O2, CPAP, BIPAP Needs Home O2 Discharge instructions: No Meaningful Use Info Meaningful Use Meaningful Use Diagnoses (Choose all that apply): None applicable Ischemic Stroke Statin Dosing Therapy Reference: STATIN DOSE THERAPY REFERENCE: * Patients > 75 years receive moderate or high dose statin therapy. * Patients 75 years or YOUNGER should receive HIGH intensity statin dose unless contraindicated. You will be required to document reason for non-treatment if statin daily dose does not meet guidelines. HIGH DOSE STATIN THERAPY DAILY Atorvastatin > than or = to 40 mg Rosuvastatin > than or = to 20 mg Amlodipine + Atorvastatin > than or = to 2.5/40 mg Ezetimibe + Simvastatin 10/80 mg Simvastatin 80mg Discharge Plan Admission Admit Date/Time: 09/09/24 20:31 Primary Reason for Your Visit: Altered mentation and recent falls Attending Provider: Julio Olea Primary Care Provider: Santhosh Garcia Consulting Providers: Miguel Ángel Lake; Chrystal Martel; Hortencia Pan; Stephanie Castillo; Dorys Saldivar; Evan Villagomez; Ronda Casillas; Jaya Soto; Chi Segundo; Avila Oakley; Lisa Nelson; Isael Almodovar; Sonia Mayberry; Toya Trujillo; Kirby Staley Sylvain; Flaco Brink; Paresh Mathur; Damon Urena; Nicolasa Long; Nagi Argueta; Iftikhar Macias; Mauro Up Instructions Additional Instructions / Restrictions: Take 2 more days of Macrobid to complete 5-day course of antibiotics total for your UTI. Take lower dose of bupropion as noted below. Your hemoglobin A1c was less than 5% so we recommend stopping the metformin at this time. Discharge Orders/Prescriptions Prescriptions: New bupropion HCl 100 mg Tablet Sustained-Release 12 Hr 100 mg PO BID 30 Days Qty: 60 2RF nitrofurantoin monohyd/m-cryst [Macrobid] 100 mg capsule 100 mg PO BID 2 Days Qty: 4 0RF Rx Instructions: must administer with a meal/food Continued pantoprazole 40 MG tablet 40 mg PO BID thyroid (pork) [[place] Thyroid] 60 MG tablet 60 mg PO BID nitroglycerin 0.4 MG tablet 0.4 mg sublingual Q5M PRN (Reason: Chest Pain) Qty: 30 0RF lisinopril 5 MG tablet 5 mg PO DAILY Patient Comments: tizanidine [Zanaflex] 4 MG capsule 4 mg PO Q8H PRN (Reason: Muscle Spasm) cetirizine 10 mg tablet 10 mg PO DAILY clonazepam 1 mg tablet 1 mg PO BID PRN (Reason: anxiety) carbidopa-levodopa 25-100 mg tablet 1 tab PO TID metoprolol succinate 25 mg tablet extended release 24 hr 25 mg PO DAILY rosuvastatin 5 mg tablet 5 mg PO QHS topiramate 50 mg tablet 50 mg PO BID fenofibrate 54 mg tablet 54 mg PO DAILY lamotrigine 200 mg tablet,disintegrating 400 mg PO QHS Trintellix 20 mg tablet 20 mg PO DAILY Ozempic 0.25 mg or 0.5 mg (2 mg/3 mL) pen injector 0.5 mg subcut QWEEK ondansetron HCl 4 mg tablet 4 mg PO DAILY PRN (Reason: nausea and vomiting) prochlorperazine maleate 10 mg tablet 10 mg PO BID PRN PRN (Reason: migraine) gabapentin 600 MG tablet 600 mg PO TIDCM 30 Days Qty: 0 0RF Changed ferrous sulfate [FeroSul] 325 mg (65 mg iron) tablet 325 mg PO DAILY 30 Days Qty: 0 0RF Discontinued bupropion HCl [Wellbutrin SR] 200 MG tablet 200 mg PO BID gabapentin 300 mg capsule 300 mg PO TID Rx Instructions: with 600mg for total daily dose of 900mg metformin 500 mg tablet extended release 24 hr 1,500 mg PO DAILY Referrals / Follow Up: Nanette Carroll, VESSEL ENGINEER [Non-Staff] - 09/19/24 3:20 pm Disposition Disposition (needs filled in before D/C Order can be placed): Home, Self Care Charges/Coding Visit Charges Inpatient E&M: 64640 Disch Hosp >30min
--- NOTE | 2024-09-12 12:33 | CASEMGMT ---
Social Work MOMO followed up with pt and pt's regarding discharge plan. Pt and spouse feel that after working with therapy today, they would be able to return home at time of discharge. MOMO spoke with pt regarding home health PT. Pt declines this option as she gets anxious having people come into her home. Pt is agreeable to outpatient PT. MOMO educated pt to outpatient therapy options. Pt is uncertain which facility she would like to use. SW notified physician of discharge plan. MOMO provided pt with script for outpatient therapy and written list of clinics pt can follow up at. Fabiana Mackey [facility]
--- NOTE | 2024-09-12 14:28 | PHA.DC_ITS ---
Pharmacy [facility] Counseling Pharmacy Service has performed discharge medication reconciliation and counseling for this patient. The patient's discharge medication list was reviewed for discrepancies and discrepancies were resolved. The patient was counseled on the following discharge medications and changes in medications for homegoing were reviewed. The Reason for Use, instructions for use, and potential side effects were reviewed for all new medications. The patient's questions regarding all of their medications were answered. 1. Bupropion 100 mg SR PO BID 2. Nitrofurantoin 100 mg PO BID x 2 days The patient and patient's family memeber were able to verbally demonstrate an understanding of their discharge medications. Medications at Discharge Home Medications pantoprazole 40 mg tablet,delayed release 40 mg PO BID acid reflux 08/23/15 thyroid (pork) 60 mg tablet ([place] Thyroid) 60 mg PO BID thyroid 08/23/15 nitroglycerin 0.4 mg sublingual tablet 0.4 mg sublingual Q5M PRN Chest Pain #30 tabs 01/01/17 lisinopril 5 mg tablet 5 mg PO DAILY blood pressure 10/31/17 tizanidine 4 mg capsule (Zanaflex) 4 mg PO Q8H PRN Muscle Spasm 10/31/17 carbidopa 25 mg-levodopa 100 mg tablet 1 tab PO TID parkinsons 08/29/24 cetirizine 10 mg tablet 10 mg PO DAILY allergies 08/29/24 clonazepam 1 mg tablet 1 mg PO BID PRN anxiety 08/29/24 fenofibrate 54 mg tablet 54 mg PO DAILY cholesterol 08/29/24 lamotrigine 200 mg disintegrating tablet 400 mg PO QHS seizures 08/29/24 metoprolol succinate 25 mg tablet,extended release 24 hr 25 mg PO DAILY blood pressure 08/29/24 ondansetron HCl 4 mg tablet 4 mg PO DAILY PRN nausea and vomiting 08/29/24 prochlorperazine maleate 10 mg tablet 10 mg PO BID PRN PRN migraine 08/29/24 rosuvastatin 5 mg tablet 5 mg PO QHS cholesterol 08/29/24 semaglutide 0.25 mg or 0.5 mg (2 mg/3 mL) subcutaneous pen injector (Ozempic) 0.5 mg subcut QWEEK diabetes 08/29/24 topiramate 50 mg tablet 50 mg PO BID seizures 08/29/24 vortioxetine 20 mg tablet (Trintellix) 20 mg PO DAILY mental health 08/29/24 bupropion HCl 100 mg tablet,12 hr sustained-release 100 mg PO BID 30 days #60 ea 09/12/24 ferrous sulfate 325 mg (65 mg iron) tablet (FeroSul) 325 mg PO DAILY 30 days #0 tabs 09/12/24 gabapentin 600 mg tablet 600 mg PO TIDCM nerve pain 30 days #0 tabs 09/12/24 nitrofurantoin monohydrate/macrocrystals 100 mg capsule (Macrobid) 100 mg PO BID 2 days #4 caps 09/12/24
[2024-09-12 16:32] VITALS: BP 156/85; PULSE 72; RESP 18; TEMP 36.7; O2SAT 98
== END 2024-09-12 18:05 | disposition home or self-care (01) | DRG 689 ==
LOC: ED 17:39 → PCU 20:18
PROVIDERS: Internal Medicine; Physician Assistant; Admitting Provider Internal Medicine; Emergency Provider Emergency Medicine; PCP Family Medicine; Visit Provider Hospitalist
DX: N30.00 Acute cystitis without hematuria (principal); G93.41 Metabolic encephalopathy; G92.8 Other toxic encephalopathy; E43 Unspecified severe protein-calorie malnutrition; N17.9 Acute kidney failure, unspecified; E11.40 Type 2 diabetes mellitus with diabetic neuropathy, unspecified; D50.9 Iron deficiency anemia, unspecified; B96.20 Unspecified Escherichia coli [E. coli] as the cause of diseases classified elsewhere; G20.C Parkinsonism, unspecified; E03.9 Hypothyroidism, unspecified; I10 Essential (primary) hypertension; F39 Unspecified mood [affective] disorder; G43.909 Migraine, unspecified, not intractable, without status migrainosus; E78.5 Hyperlipidemia, unspecified; K21.9 Gastro-esophageal reflux disease without esophagitis; G47.33 Obstructive sleep apnea (adult) (pediatric); F41.8 Other specified anxiety disorders; S06.0X0A Concussion without loss of consciousness, initial encounter; W19.XXXA Unspecified fall, initial encounter; Z74.09 Other reduced mobility; Z79.85 Long-term (current) use of injectable non-insulin antidiabetic drugs; R26.89 Other abnormalities of gait and mobility; Z87.891 Personal history of nicotine dependence; Z79.899 Other long term (current) drug therapy; Z79.84 Long term (current) use of oral hypoglycemic drugs; R29.6 Repeated falls; Z99.89 Dependence on other enabling machines and devices; R53.1 Weakness; Z86.39 Personal history of other endocrine, nutritional and metabolic disease; Z68.25 Body mass index [BMI] 25.0-25.9, adult
CPT/HCPCS: 36415; 70450; 71046; 80048; 80053; 80061; 80069; 80307; 81001; 82077; 82607; 82746; 82962; 83036; 83605; 83735; 84100; 84443; 85025; 85027; 87077; 87086; 87088; 87186; 92526; 92610; 94668; 97162; 97166; 97530; 97535; 99252; 99284; P9612; A4216; G0463